=== PATIENT | male | born 1945 | race Caucasian/White ===

== ENCOUNTER 2022-06-06 10:28 | Emergency (ER) | payer MEDICARE, OTHER, SELFPAY ==
[2022-06-06 10:51] VITALS: BP 145/89; PULSE 54; RESP 16; TEMP 36.3; O2SAT 97; BMI 30.8
--- NOTE | 2022-06-06 11:14 | ED.CHESTPAIN ---
HPI - Chest Pain General Chief Complaint: Chest Pain Stated Complaint: pain in chest Time Seen by Provider: 06/06/22 10:45 History of Present Illness HPI narrative: This 77-year-old male comes in reporting some pain just left of his sternum that began about 4:00 a.m. this morning. He states that the pain is reproducible when he presses in this area. He does not report any shortness of breath, nausea, vomiting, lightheadedness, or diaphoresis. He has good exercise tolerance. He states that he does not have any cardiac risk factors. He does not have a personal cardiac history. He sees a doctor at the [place] facility. His states that he has a history of a neuroendocrine cancer with metastatic disease. He did have a chest CT about a month ago with negative results. Related Data Home Medications Medication Instructions Recorded Confirmed sotalol 80 mg tablet 80 mg PO Q12H 06/06/22 06/06/22 warfarin 5 mg tablet 5 mg PO DAILY 06/06/22 06/06/22 Allergies Allergy/AdvReac Type Severity Reaction Status Date / Time No Known Drug Allergies Allergy Verified 06/06/22 10:57 Review of Systems Status of ROS Reports: 10 or more systems reviewed and unremarkable except as noted in History and below Narrative Constitutional: No fevers, no weight gain or loss. Eyes: No discharge. No vision changes. HENT: No congestion, no sore throat, no ear pain. Cardiovascular: No palpitations. Chest: Reproducible pain with palpation just left of the sternal border. Respiratory: No shortness of breath, no wheezes, no cough. Gastrointestinal: No abdominal pain, no vomiting, no diarrhea. Genitourinary: No dysuria, no hematuria. Musculoskeletal: Normal range of motion. Skin: No rashes, no pruritis. Neurological: No dizziness, weakness, sensory change, speech change. Endo/Heme/Allergies: No bruising or bleeding. No polydipsia. Pysch: no suicidality, no anxiety, no insomnia. All other systems reviewed and are negative. PFSH PFSH Social History Smoking Status: Former smoker How often do you have a drink containing alcohol: monthly or less AUDIT-C Alcohol total score: 1 Non-prescribed substance use: denies use Exam Narrative Exam Narrative: Constitutional: Well-developed, well-nourished, no acute distress. HEENT: Normocephalic, atraumatic. Neck: Normal range of motion. Nontender. Supple. Heart: Regular. No murmurs. Normal rate. Intact distal pulses. Lungs: Clear to auscultation.. No wheezes, rhonchi, or rales. Chest discomfort is distinctly reproduced when palpating left of the sternal border. Abdomen: Normal bowel sounds. Nontender. No rebound tenderness. Genitalia: Deferred. Back: No midline tenderness. Normal range of motion. Extremities: Normal range of motion. No injury. No pedal edema. Skin: Intact. No rash. Warm. No erythema or pallor. Neurologic: No altered sensation. No weakness. Alert and oriented. Psychiatric: No suicidality. No anxiety or depression. No insomnia. Nursing notes and vitals signs are reviewed. Const Vital Signs, click to edit/add: Vital Signs - 24 hr 06/06/22 10:51 06/06/22 11:35 Temperature 97.4 F L Pulse Rate 61 Pulse Rate [Right Pulse Oximeter] 54 L Respiratory Rate 16 17 Blood Pressure 160/85 H Blood Pressure [Right Upper Arm] 145/89 H Pulse Oximetry 97 95 Oxygen Delivery Method Room Air Course Vital Signs Vital signs: Initial Vital Signs Temperature 97.4 F L 06/06/22 10:51 Temperature Source Temporal Artery Scan 06/06/22 10:51 Pulse Rate 54 L 06/06/22 10:51 Pulse Rhythm 06/06/22 10:51 Respiratory Rate 16 06/06/22 10:51 Blood Pressure 145/89 H 06/06/22 10:51 Blood Pressure Mean 107 06/06/22 10:51 Blood Pressure Position Sitting 06/06/22 10:51 Pulse Oximetry 97 06/06/22 10:51 Oxygen Delivery Method 06/06/22 10:51 Vital Signs Temperature 97.4 F L 06/06/22 10:51 Pulse Rate 54 L 06/06/22 10:51 Respiratory Rate 16 06/06/22 10:51 Blood Pressure 145/89 H 06/06/22 10:51 Pulse Oximetry 97 06/06/22 10:51 Oxygen Delivery Method 06/06/22 10:51 Temperature 97.4 F L 06/06/22 10:51 Pulse Rate 61 06/06/22 11:35 Respiratory Rate 17 06/06/22 11:35 Blood Pressure 160/85 H 06/06/22 11:35 Pulse Oximetry 95 06/06/22 11:35 Oxygen Delivery Method 06/06/22 10:51 MDM - Chest Pain MDM Narrative Medical decision making narrative: This patient comes in reporting chest discomfort as described above. The pain is easily reproducible indicating chest wall pain. Additionally his EKG, vital signs, exam, and labs all returned with normal results. The patient's INR is at 1 as he has not been taking his Coumadin for about a week in preparation for a surgical procedure coming soon. Lab Data Labs: Lab Results 06/06/22 06/06/22 06/06/22 Range/Units 11:00 11:34 11:34 WBC 4.28 L (4.50-11.00) K/uL RBC 4.24 L (4.30-5.90) m/uL Hgb 14.1 (13.5-17.5) gm/dL Hct 42.1 (37.0-53.0) % MCV 99 (80-100) fL MCH 33 (26-34) pg MCHC 34 (32-36) gm/dL RDW Coeff of Renae 12.2 (11.5-15.5) % Plt Count 202 (140-440) K/uL Neut % (Auto) 55.5 (42.0-72.0) % Lymph % (Auto) 26.2 (20-44) % Pickett % (Auto) 15.0 H (0.0-11.0) % Eos % (Auto) 2.8 (0.0-7.0) % Baso % (Auto) 0.5 (0.0-3.0) % Neut # (Auto) 2.40 (1.7-7.0) K/uL Lymph # (Auto) 1.10 (0.90-2.90) K/uL Pickett # (Auto) 0.60 (0.00-0.90) K/UL Eos # (Auto) 0.10 (0.00-0.50) K/uL Baso # (Auto) 0.00 (0.00-0.30) K/uL Abs Immat Gran (auto) 0.00 (0.00-0.30) K/uL INR (0.91-1.10) Sodium 136 (135-149) mmol/L Potassium 4.2 (3.6-5.1) mmol/L Chloride 102 (96-114) mmol/L Carbon Dioxide 30 (20-32) mmol/L BUN 13 (7-30) mg/dL Creatinine 0.9 (0.5-1.5) mg/dL Estimated Creat Clear 62.86 Estimated GFR 87 ml/min Glucose 95 (60-115) mg/dL Calcium 9.0 (8.4-10.6) mg/dL POC Troponin I 0.00 L (0.01-0.04) ng/ml 06/06/22 Range/Units 11:34 WBC (4.50-11.00) K/uL RBC (4.30-5.90) m/uL Hgb (13.5-17.5) gm/dL Hct (37.0-53.0) % MCV (80-100) fL MCH (26-34) pg MCHC (32-36) gm/dL RDW Coeff of Renae (11.5-15.5) % Plt Count (140-440) K/uL Neut % (Auto) (42.0-72.0) % Lymph % (Auto) (20-44) % Pickett % (Auto) (0.0-11.0) % Eos % (Auto) (0.0-7.0) % Baso % (Auto) (0.0-3.0) % Neut # (Auto) (1.7-7.0) K/uL Lymph # (Auto) (0.90-2.90) K/uL Pickett # (Auto) (0.00-0.90) K/UL Eos # (Auto) (0.00-0.50) K/uL Baso # (Auto) (0.00-0.30) K/uL Abs Immat Gran (auto) (0.00-0.30) K/uL INR 0.97 (0.91-1.10) Sodium (135-149) mmol/L Potassium (3.6-5.1) mmol/L Chloride (96-114) mmol/L Carbon Dioxide (20-32) mmol/L BUN (7-30) mg/dL Creatinine (0.5-1.5) mg/dL Estimated Creat Clear Estimated GFR ml/min Glucose (60-115) mg/dL Calcium (8.4-10.6) mg/dL POC Troponin I (0.01-0.04) ng/ml ECG Data Attestation: I personally reviewed and interpreted this ECG as follows: Interpretation: Sinus bradycardia. Rate is 56 beats per minute. There are no specific ST or T-wave abnormalities. Discharge Plan Discharge Clinical Impression: Chest wall pain Additional Instructions: Use [id number] medicines as needed and directed. Follow up with MD as scheduled. Increase activity as tolerated. Prescriptions: No Action sotalol 80 mg tablet 80 mg PO Q12H warfarin 5 mg tablet 5 mg PO DAILY Rx Instructions: 5 mg 5 times per week and 2 days 7.5 mg Follow Up/Referrals: Rosalinda Yancey MD [Primary Care Provider] -
[2022-06-06 11:35] VITALS: BP 160/85; PULSE 61; RESP 17; O2SAT 95
--- OUTSIDE RECORDS SUMMARY | 2022-06-06 11:40 | XMS_ITS | Continuity of Care Document ---
:1945 Author Organization [facility] Care Team Providers Name Role Phone [facility] Unavailable Unavailable Problems Combined list of problems from 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 It does not include entries that were removed or entered in error. 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 (SNOMED CT 007 2008 Enter ed [facility] [id number]) By: JODI MARCELINO Comment: S/P HIFU (09/2007 [place]) Apr 14, 2014 Entered By: HARLAN SUN Comment: 01/25 RRP Atrial fibrillation Active Condition Dec 29 [place] (SNOMED CT 63570969) 2011 Ente red [facility] By: HARLAN SUN Comment: Paroxysmal 06/23 and 12/24 CHADS 2 score 0 Carcinoid tumor Active Condition [place] (SNOMED CT [facility] [id number]) Colonoscopy normal Active Condition Oct 06 [place] 2018 Entered [facility] By: HARLAN SUN Comment: 2000 Health Maintenance Active Condition Dec 22 [place] 2012 Entered [facility] By: HARLAN SUN Comment: colonoscopy 2006, next due 2016 Hearing Loss, Active Condition [place] Bilateral [facility] High risk drug Active Condition [place] monitoring status [facility] History of deep vein Active Condition [place] thrombosis [facility] Hyperlipidemia Active Condition [place] (SNOMED CT 04893054) [facility] Impotence Active Condition [place] [facility] Long-term current Active [place] use of anticoagulant [facility] Osteoarthritis of Active Condition [place] ([facility] 060623547) Pain in limb Active Condition Dec 27, [place] (ICD-9-CM 729.5) 2012 Entered [facility] By: HARLAN SUN Comment: knee pain Post Vit Detachment Active Condition [facility] Solitary nodule of Active Condition [place] lung [facility] Trigger Finger Inactive Condition 08/11/2017 [place] (ICD-9-CM 727.03) [facility] Diagnosis: ICD-10-CM Active Diagnosis [place] Z71.9 Counseling, [facility] unspecifiedwith Provider Comments: Counseling, unspecified Diagnosis: ICD-10-CM Active Diagnosis [place] Z01.818 Encounter [facility] for other preprocedural examinationwith Provider Comments: Encounter for other Preprocedural Examination Diagnosis: ICD-10-CM Active Diagnosis [place] Z79.01 long-term [facility] (current) use of anticoagulantswith Provider Comments: Long-term current use of anticoagulant ([facility] [id number]) Diagnosis: ICD-10-CM Active Diagnosis [place] Z51.81 Encounter for [facility] therapeutic drug level monitoringwith Provider Comments: Encounter For Therapeutic Drug Level Monitoring (ICD-10-CM Z51.81) Diagnosis: ICD-10-CM Active Diagnosis [place] Z79.899 Other long [facility] term (current) drug therapywith Provider Comments: 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 Diagnosis: ICD-10-CM Active Diagnosis [place] Z01.818 Encounter [facility] for other preprocedural examinationwith Provider Comments: PreOp Exam Diagnosis: ICD-10-CM Active Diagnosis [place] Z13.6 Encounter for [facility] screening for cardiovascular disorderswith Provider Comments: Encounter for Screening for Cardiovascular Disorders Diagnosis: ICD-10-CM Active Diagnosis [place] M76.61 Achilles [facility] CS tendinitis, right legwith Provider Comments: Achilles tendinitis, right leg Diagnosis: ICD-10-CM Active Diagnosis [place] C7A.00 Malignant [facility] carcinoid tumor of unspecified sitewith Provider Comments: Carcinoid tumor ([facility] [id number]) Diagnosis: ICD-10-CM Active Diagnosis [place] I48.91 Unspecified [facility] atrial fibrillationwith Provider Comments: Atrial fibrillation ([facility] [id number]) Diagnosis: ICD-10-CM Active Diagnosis [place] Z71.89 Other [facility] specified counselingwith Provider Comments: Other specified counseling Diagnosis: ICD-10-CM Active Diagnosis [place] Z51.81 Encounter for [facility] therapeutic drug level monitoringwith Provider Comments: Encounter for Therapeutic Drug Level Monitoring Diagnosis: ICD-10-CM Active Diagnosis [place] 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 Provider Comments: 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 Medications provided include 1) outpatient medications from the last 15 months, and 2) patient-reported medications. Medication Details Route Status Patient Prescription Prescription Last Ordering Order Source Instructions Expires Number Dispense Provider Date Date CEPHALEXIN Active [id number] O'HALLORA 11/12 0/ Pharmac (CEPHALEXIN 2 N, 2021 y Data MONOHYDRATE Transac ), 500 MG, tion CAPSULE, Service ORAL, Facilit ASCEND y LABORATO, 500 ea. BOTTLE CHOLECALCIF TAKE ONE ORALLY ACTIVE EMILY,OK 01/20 / [place] 25MCG TABLET SGHINA 2018 [place] (1,000UNIT) BY MOUTH [facility] TAB EVERY DAY DOXYCYCLINE TAKE ONE ORALLY 03/19/2022 [id number] TARCHAND, 02/17/ [place] HYCLATE TABLET 2 GOBIND 2021 [place] 100MG TAB BY MOUTH [facility] TWICE A DAY FOR PNEUMONI A Doxycycline TAKE ONE 03/19/2022 [id number] TAR ABI, 02/19/ [place] Tablet TABLET 2 GOBIND 2021 [place] 100mg Oral BY MOUTH [facility] TWICE A DAY FOR PNEUMONI A ENOXAPARIN INJECT SUBCUT ACTIVE 05/22/2023 [id number] CASWEL L,D 05/21/ [place] 100MG/ML 100MG ANEOUS 2 INAH 2021 [place] INJ,SYRINGE [facility] ,1ML CONTENTS OF 1 SYRINGE UNDER THE SKIN EVERY 12 HOURS TO PREVENT BLOOD CLOTS WHILE OFF WARFARIN - SEE SEPARATE LETTER FOR DIRECTIO NS TO PREVENT BLOOD CLOTS WHILE OFF WARFARIN - SEE SEPARATE LETTER FOR DIRECTIO NS FLONASE-OTC SPRAY 2 Active 04/05/2023 [id number] MOORH EAD, 04/06/ [place] (BRAND) 50 SPRAYS 2 CLAYTON 2022 [place] MCG REBECCA IN EACH M [facility] SPSN [9.9] NOSTRIL EVERY DAY USE REGULARL Y FOR RELIEF OF ALLERGIE S/CONGES TION FLUTICASONE SPRAY 2 NASAL ACTIVE 04/05/2023 [id number] MO ORHEAD, 04/04/ [place] PROPIONATE SPRAYS 2 2021 [place] 50MCG/SPRAY IN EACH M HCS SOLN,NASAL, NOSTRIL 16GM EVERY DAY USE REGULARL Y FOR RELIEF OF ALLERGIE S/CONGES TION FLUZONE Active [id number] COTTON, rmac HIGH-DOSE 1 2020 y Data QUAD Transac tion (influenza Service virus Facilit vaccine y quadrival split (65 yr up)/PF), 240MCG/0.7, SYRINGE, INTRAMUSC, SANOFI-PAST EUR, .7 ml SYRINGE LIDOCAINE 5 APPLY Active 04/05/2023 [id number] MOORHEA D, 04/06/ [place] % TOP OINT MODERATE 2 2021 ol is [30 GM] AMOUNT M [facility] TOPICALL Y FOUR TIMES A DAY NEEDED FOR PAIN LIDOCAINE APPLY TOPICA ACTIVE 04/05/2023 [id number] SARIAH , 04/04/ [place] 5% OINT,TOP MODERATE LLY 2 2021 O [place] [facility] AMOUNT M HCS TOPICALL Y FOUR TIMES A DAY NEEDED FOR PAIN Loratadine TAKE ONE Active 04/05/2023 [id number] MOORH EAD, 04/06/ [place] (Alavert TABLET 2 2021 olis ODT) Tablet BY MOUTH M [facility] 10 mg Oral EVERY DAY FOR ALLERGIE S FOR ALLERGIE S LORATADINE TAKE ONE ORALLY ACTIVE 04/05/2023 [id number] MO ORHEAD, 04/04/ [place] 10MG TAB TABLET 2 2021 [place] A BY MOUTH M HCS EVERY DAY FOR ALLERGIE S MUPIROCIN Active [id number] O'MERLY 11/21 / (MUPIROCIN) 2 N, 2021 y Data , 2%, Transac OINT.(GM), tion TOPICAL, Service [facility] Facilit [place], 22 g y TUBE NON VA MED USE ORALLY ACTIVE TARCHAND, 02/17/ [place] NOT LISTED MOUTH GOBIND 2021 [place] EVERY HCS MORNING Octreotide INJECT Active 10/30/2022 [id number] TARCHAN D, 04/24/ [place] Acetate 20MG 2 GOBIND 2021 olis 20mg 20MG [facility] Powder, INTRAMUS Injection CULAR EVERY MONTH IN HEME/ONC CLINIC *DO NOT MAIL TO BE DISPENSE IN CLINIC Octreotide INJECT Discont 06/26/2022 [id number] GIANCARLO NER 10/31/ [place] Acetate 20MG inued , 2021 [place] 20mg INTRAMUS VIKAS VA Powder, CULAR S Injection EVERY MONTH IN HEME/ONC CLINIC *DO NOT MAIL Octreotide INJECT Discont 11/27/2021 [id number] JEIRIS, 06/29/ [place] Acetate 20MG inued 1 BATSHEVA J 2020 [place] 20mg INTRAMUS [facility] Powder, CULAR Injection EVERY MONTH IN HEME/ONC CLINIC *DO NOT MAIL OCTREOTIDE INJECT INTRAM ACTIVE 10/30/2022 [id number] TARCHA ND, 10/29/ [place] ACETATE 20MG USCULA 2 GOBIND 2021 [place] 20MG/KIT 20MG R HCS INJ,SUSP,SA INTRAMUS CULAR EVERY MONTH IN HEME/ONC CLINIC *DO NOT MAIL TO BE DISPENSE IN CLINIC OCTREOTIDE INJECT INTRAM DISCONT 06/26/2022 [id number] CHR ISTNER 07/23/ [place] ACETATE 20MG USCULA INUED 2 ,VIKAS 2020 [place] 20MG/KIT INTRAMUS R (EDIT) S HCS INJ,SUSP,SA CULAR EVERY MONTH IN HEME/ONC CLINIC *DO NOT MAIL OCTREOTIDE INJECT INTRAM DISCONT 11/27/2021 [id number] JE IRIS,JOCELYNE 11/26/ [place] ACETATE 20MG USCULA INUE 1 PING J 2020 [place] 20MG/KIT INTRAMUS R HCS INJ,SUSP,SA CULAR EVERY MONTH IN HEME/ONC CLINIC *DO NOT MAIL PFIZER Active [id number] COTTON, 02/09/ Phar mac COVID (12Y 2 2021 y Data UP) Transac VAC(EUA) tion (COVID-19 Service vac Facilit mRNA,vineet(P y fizer)/PF), 30 MCG/0.3, VIAL, INTRAMUSC, PFIZER MANUFACT, 1.8 ml VIAL SOTALOL HCL TAKE ONE ORALLY ACTIVE 12/19/2022 [id number] STERLING,A [place] 80MG TAB TABLET 2 BBIE L 2021 [place] BY MOUTH HCS TWO TIMES A DAY SOTALOL HCL TAKE ONE ORALLY DISCONT 09/10/2022 [id number] GLAUSER,N [place] 80MG TAB TABLET INUED 2 ORA N 2021 [place] BY MOUTH HCS TWO TIMES A DAY SOTALOL HCL TAKE ONE ORALLY DISCONT 09/14/2021 [id number] SARIAH, [place] 80MG TAB TABLET INUE 1 2020 [place] A BY MOUTH M HCS TWO TIMES A DAY Sotalol TAKE ONE Active 12/19/2022 [id number] STERLING, [place] Hydrochlori TABLET 2 LUISITO L 2021 ol[place] de BY MOUTH [facility] ([place]) TWO Tablet 80 TIMES A mg Oral DAY Sotalol TAKE ONE Active 09/10/2022 [id number] GLAUSER, [place] Hydrochlori TABLET 2 MARIELOS N 2021 ol[place] de BY MOUTH [facility] ([place]) TWO Tablet 80 TIMES A mg Oral DAY Sotalol TAKE ONE Discont 09/14/2021 [id number] MOORHEA D, [place] Hydrochlori TABLET inued 1 2021 af[place] s de BY MOUTH [facility] ([place]) TWO Tablet 80 TIMES A mg Oral DAY VITAMIN E TAKE BY ORALLY ACTIVE TARCHAND, [place] CAP,ORAL MOUTH GOBIND 2021 [place] EVERY HCS MORNING WARFARIN NA TAKE ONE ORALLY ACTIVE 01/23/2023 [id number] H ELMRICK, [place] (CHAN AND 2 LUISITO M 2021 [place] STATE) 5MG ONE-HALF HCS TAB TABLETS BY MOUTH THURSDAY AND THURSDAY AND TAKE ONE TABLET ALL OTHER DAYS OR DIRECTED BY WARFARIN CLINIC TO TREAT AND/OR PREVENT BLOOD CLOTS WARFARIN NA TAKE ONE ORALLY 12/25/2021 [id number] CHARLIE LY 12/24/ [place] (CHAN AND 2 NIFER JEREMIE 2020 [place] STATE) 5MG ONE-HALF HCS TAB TABLETS BY MOUTH THURSDAY, THURSDAY , THURSDAY AND TAKE ONE TABLET ALL OTHER DAYS OF THE WEEK, OR DIRECTED BY WARFARIN CLINIC TO PREVENT BLOOD CLOTS Warfarin TAKE ONE 12/25/2021 [id number] LY, [place] Sodium AND 1 LISETTE 2020 olis (GSMS/Taro ONE-HALF [place]EM[place] [facility] Brand) TABLETS Tablet 5 mg BY MOUTH Oral THURSDAY, THURSDAY , THURSDAY AND TAKE ONE TABLET ALL OTHER DAYS OF THE WEEK, OR DIRECTED BY WARFARIN CLINIC TO PREVENT BLOOD CLOTS Allergies, Adverse Reactions, Alerts Combined list of allergies from 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 It does not include entries that were removed or entered in error. Substance Category Reaction Severity Reaction Status Date Comments S ource type Reported DIAL SOAP Propensity Eruption Propensity active [place] to adverse to adverse 7 [facility] reaction reaction (finding) (finding) NAPROXEN Propensity Diarrhea Propensity active [place] to adverse to adverse 1 [facility] reactions reactions to drug to drug (finding) (finding) No Known Drug Drug active Gabriel briones Allergies allergy allergy 8 [facility] Immunizations Combined list of available immunizations from the 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 Immunization Series Date Administered Site Reaction Lot CVX Drug St atus Comments Source Given By Number Code Assembler Movement COVID-19, 01/29/ YURY Pfizer Not COVID-1 9, DoD mRNA, LNP-S, 2021 Manufacturing Given mRNA, PF, 30 [place] LNP-S, mcg/0.3 mL (PFR) PF, 30 dose, mcg/0.3 vineet-sucrose mL dose , vineet-sucr ose influenza, , () Not influen za DoD high-dose, 2020 Given , quadrivalent high-do se , quadrival ent INFLUENZA, complet [place] UNSPECIFIED 2020 ed [place] FORMULATION HC S COVID-19 2 complet [place] (PFIZER), 2020 ed TA MRNA, LNP-S, PF, 30 MCG/0.3 ML DOSE COVID-19 1 complet [place] ([employer]), 2020 ed [place] MRNA, LNP-S, H CS PF, 30 MCG/0.3 ML DOSE INFLUENZA, complet [place] INJECTABLE, 2019 ed [place] QUADRIVALENT, HCS PRESERVATIVE FREE INFLUENZA, complet [place] HIGH DOSE 2018 ed [place] SEASONAL HCS ZOSTER 2 complet [place] RECOMBINANT 2018 ed [place] [facility] ZOSTER 1 complet [place] RECOMBINANT 2018 ed [place] [facility] H[facility] INFLUENZA, complet [place] SEASONAL, 2017 ed [place] INJECTABLE HCS INFLUENZA, complet [place] HIGH DOSE 2016 ed [place] SEASONAL HCS INFLUENZA, complet [place] HIGH DOSE 2015 ed [place] SEASONAL HCS Influenza, KIND, () Not Influenz a DoD high dose 2014 Given , high seasonal dose seasonal PNEUMOCOCCAL complet Wyet h,L82 [place] CONJUGATE PCV 2015 ed 219, [place] 13 HCS zoster live 01/26/ KIND, () Not zoster DoD 2014 Given live INFLUENZA, complet [place] UNSPECIFIED 2013 ed [place] FORMULATION HC S TDAP complet San[employer]i,U6 M [place] 2013 ed 606AB,Sep [place] HCS INFLUENZA, complet [place] UNSPECIFIED 2012 ed [place] [facility] FORMULATION HC S INFLUENZA, complet [place] UNSPECIFIED 2011 ed [place] [facility] FORMULATION HC S INFLUENZA, complet [place] UNSPECIFIED 2010 ed [place] [facility] FORMULATION HC S INFLUENZA, complet per pt [place] UNSPECIFIED 2009 ed [place] FORMULATION HC S NOVEL complet [place] INFLUENZA-H1N 2009 ed [place] -, ALL HCS FORMULATIONS ZOSTER LIVE complet Merck and [place] 2008 ed co Lot# [place] V A Exp HCS PNEUMOCOCCAL, complet MARIO CK and [place] UNSPECIFIED 2008 ed co, [place] FORMULATION [id number], H CS [id number] INFLUENZA, complet [place] UNSPECIFIED 2008 ed [place] [facility] FORMULATION HC S INFLUENZA, complet [place] UNSPECIFIED 2007 ed [place] [facility] FORMULATION HC S INFLUENZA complet [place] (HISTORICAL) 2006 ed O LIS SC HCS TD(ADULT) complet [place] UNSPECIFIED 2006 ed [place] [facility] FORMULATION HC S INFLUENZA complet M [place] (HISTORICAL) 2005 ed O LIS [place] HCS influenza 1 08/15/ Unknown, [id number] 16 PowderJect comple t influenza [facility] [place] virus 2002 Provider Pharmaceutica ed vir us vaccine, ls (PWJ) vaccine, whole virus whole virus tetanus and 2 04/28/ Unknown, 09 () complet te tanus DoD diphtheria 2002 Provider ed and toxoids, diphtheri adsorbed, a preservative toxoids , free, for adsorbed, adult use (2 preserv at Lf of tetanus neel fr ee, toxoid and 2 for cuong lt Lf of use (2 Lf diphtheria of toxoid) tetanus toxoid and 2 Lf of diphtheri a toxoid) TD(ADULT) complet [place] UNSPECIFIED 2002 ed [place] FORMULATION HC S hepatitis A 2 11/18/ Unknown, 52 () complet [facility] vaccine, 1996 Provider ed A adult dosage vaccine , adult dosage hepatitis B 3 11/18/ Unknown, 43 () complet [facility] vaccine, 1996 Provider ed B adult dosage vaccine , adult dosage hepatitis B 2 05/19/ Unknown, 43 () complet [facility] vaccine, 1995 Provider ed B adult dosage vaccine , adult dosage tetanus and 1 04/26/ Unknown, 09 () [facility] diphtheria 1995 Provider ed and toxoids, diphtheri adsorbed, a preservative toxoids , free, for adsorbed, adult use (2 preserv at Lf of tetanus neel fr ee, toxoid and 2 for cuong lt Lf of use (2 Lf diphtheria of toxoid) tetanus toxoid and 2 Lf of diphtheri a toxoid) hepatitis A 1 04/26/ Unknown, 52 () complet [facility] DoD vaccine, 1995 Provider ed A adult dosage vaccine , adult dosage hepatitis B 1 04/26/ Unknown, 43 () complet [facility] vaccine, 1995 Provider ed B adult dosage vaccine , adult dosage trivalent 1 08/08/ Unknown, 02 () complet tri alent [facility] poliovirus 1973 Provider ed poliov iru vaccine, s live, oral vaccine, live, oral Results Combined list of recent chemistry, hematology and other laboratory results from Department of Defense and Veterans Affairs, ranging from 15 months to all on record, depending upon the facility. Order Results Value Reference Date Interpretation Specimen Commen ts Source Name Range PT/INR(AN INR IN 2.1 0.8 - 1.1 05/20 H Specimen Typ e: PLASMA [place] TICOAG) PLATELET /2021 No comment ente red. IS [facility] POOR PLASMA Ordering Pr ovider: CATALINA HEAD BY Report Released Date/Time: Apr 23, 2022 03:52 PM COAGULATION Reporting L ab: [facility] [place] [address] [place] [phone] Performing Lab: [facility] [address] [place] [phone] PT/INR(AN PROTHROMBIN 24.9 9.4 - 12.5 05/20 H Specime n Type: PLASMA [place] TICOAG) TIME (PT) /2021 No comment ent ered. IS [facility] Ordering Provid er: CATALINA HEAD Report Released Date/Time: Apr 23, 2022 03:52 PM Reporting Lab: [facility] [address] [place] [phone] Performing Lab: [facility] [address] [place] [phone] COMPREHEN CREATININE 1.0 0.7 - 1.2 05/20 Specimen Type: PLASMA [place] SIVE [MASS/VOLUM /2021 No comment e ntered. IS [facility] METABOLIC E] IN SERUM Ordering Provider: LILI GARCIA PANEL+MG OR PLASMA Report Relea sed Date/Time: Feb 17, 2022 11:17 AM Reporting Lab: [facility] [address] [place] [phone] Performing Lab: [facility] [address] [place] [phone] COMPREHEN UREA 13 8 - 26 05/20 Specimen Type: [place]ASMA [place] SIVE NITROGEN /2021 No comment ente red. IS [facility] METABOLIC [MASS/VOLUM Ordering Provider: LILI GARCIA PANEL+MG E] IN SERUM Report Rel eased Date/Time: Feb 17, 2022 11:17 AM OR PLASMA Reporting Lab : [facility] [address] [place] [phone] Performing Lab: [facility] [address] [place] [address] COMPREHEN GLUCOSE 98 70 - 100 05/20 Specimen Type : PLASMA [place] SIVE [MASS/VOLUM /2021 No comment e ntered. IS [facility] METABOLIC E] IN SERUM Ordering Provider: ATA GARCIABIND PANEL+MG OR PLASMA Report Relea sed Date/Time: Feb 17, 2022 11:17 AM Reporting Lab: [facility] [place] [address] Performing Lab: [facility] [place] [address] COMPREHEN SODIUM 141 136 - 145 05/20 Specimen Typ e: PLASMA [place] SIVE [MOLES/VOLU /2021 No comment e ntered. IS [facility] METABOLIC ME] IN Ordering Prov ider: TARJEMND,GOBIND PANEL+MG SERUM OR Report Releas ed Date/Time: Feb 17, 2022 11:17 AM PLASMA Reporting Lab: [facility] [address] [facility] [phone] Performing Lab: [facility] [address] [facility] [phone] COMPREHEN POTASSIUM 4.0 3.5 - 5.1 05/20 Specimen T ype: PLASMA [place] SIVE [MOLES/VOLU /2021 No comment e ntered. IS [facility] METABOLIC ME] IN Ordering Prov ider: TARJEMND,GOBIND PANEL+MG SERUM OR Report Releas ed Date/Time: Feb 17, 2022 11:17 AM PLASMA Reporting Lab: [facility] [address] [facility] [address] Performing Lab: [facility] [address] [facility] [address] COMPREHEN CHLORIDE 110 98 - 107 05/20 H Specimen Typ e: PLASMA [place] SIVE [MOLES/VOLU /2021 No comment e ntered. IS [facility] METABOLIC ME] IN Ordering Prov ider: TARCHAND,GOBIND PANEL+MG SERUM OR Report Releas ed Date/Time: Feb 17, 2022 11:17 AM PLASMA Reporting Lab: [facility] [address] [facility] [phone] Performing Lab: [facility] [address] [facility] [address] COMPREHEN CARBON 26 22 - 29 05/20 Specimen Type: PLASMA [place] SIVE DIOXIDE, /2021 No comment ente red. IS [facility] METABOLIC TOTAL Ordering Prov ider: TARCHAND,GOBIND PANEL+MG [MOLES/VOLU Report Rel eased Date/Time: Feb 17, 2022 11:17 AM ME] IN Reporting Lab: [facility] SERUM OR [address] [place] [facility] [address] PLASMA Performing Lab: [facility] [address] [place] [phone] COMPREHEN CALCIUM 8.9 8.4 - 10.2 05/20 Specimen Ty pe: PLASMA [place] SIVE [MASS/VOLUM /2021 No comment e ntered. IS [facility] METABOLIC E] IN SERUM Ordering Provider: ATA GARCIABIND PANEL+MG OR PLASMA Report Relea sed Date/Time: Feb 17, 2022 11:17 AM Reporting Lab: [facility] [address] [place] [address] Performing Lab: [facility] [address] [place] [phone] COMPREHEN PROTEIN 6.7 6.0 - 8.3 05/20 Specimen Typ e: PLASMA [place] SIVE [MASS/VOLUM /2021 No comment e ntered. IS [facility] METABOLIC E] IN SERUM Ordering Provider: ATA GARCIABIND PANEL+MG OR PLASMA Report Relea sed Date/Time: Feb 17, 2022 11:17 AM Reporting Lab: [facility] [place] [address] Performing Lab: [facility] [address] [place] [address] COMPREHEN ALBUMIN 3.8 3.5 - 5.2 05/20 Specimen Typ e: PLASMA [place] SIVE [MASS/VOLUM /2021 No comment e ntered. IS [facility] METABOLIC E] IN SERUM Ordering Provider: ATA GARCIABIND PANEL+MG OR PLASMA Report Relea sed Date/Time: Feb 17, 2022 11:17 AM Reporting Lab: [facility] [address] [place] [address] Performing Lab: [facility] [place] [address] COMPREHEN BILIRUBIN.T 1.0 0.2 - 1.2 05/20 Specimen Type: PLASMA [place] SIVE OTAL /2021 No comment enter ed. IS [facility] METABOLIC [MASS/VOLUM Ordering Provider: ATA GARCIABIND PANEL+MG E] IN SERUM Report Rel eased Date/Time: Feb 17, 2022 11:17 AM OR PLASMA Reporting Lab : [facility] [place] [address] Performing Lab: [facility] [place] [address] COMPREHEN MAGNESIUM 2.1 1.6 - 2.6 05/20 Specimen T ype: PLASMA [place] SIVE [MASS/VOLUM /2021 No comment e ntered. IS [facility] METABOLIC E] IN SERUM Ordering Provider: LILI GARCIA PANEL+MG OR PLASMA Report Relea sed Date/Time: Feb 17, 2022 11:17 AM Reporting Lab: [facility] [address] [facility] [address] Performing Lab: [facility] [address] [facility] [address] COMPREHEN ANION GAP 5 5 - 15 05/20 Specimen Typ e: PLASMA [place] SIVE IN SERUM OR /2021 No comment e ntered. IS [facility] METABOLIC PLASMA Ordering Prov ider: LILI GARCIA PANEL+MG Report Release d Date/Time: Feb 17, 2022 11:17 AM Reporting Lab: [facility] [address] [facility] [address] Performing Lab: [facility] [address] [facility] [address] COMPREHEN ALKALINE 68 40 - 150 05/20 Specimen Typ e: PLASMA [place] SIVE PHOSPHATASE /2021 No comment e ntered. IS [facility] METABOLIC [ENZYMATIC Ordering P rovider: LILI GARCIA PANEL+MG ACTIVITY/VO Report Rel eased Date/Time: Feb 17, 2022 11:17 AM LUME] IN Reporting Lab: [facility] [facility] SERUM OR [address] [facility] [address] PLASMA Performing Lab: [facility] [address] [facility] [address] COMPREHEN ALANINE 15 <55 - 55 05/20 Specimen Type : PLASMA [place] SIVE AMINOTRANSF /2021 No comment e ntered. IS [facility] METABOLIC ERASE Ordering Prov ider: LILI GARCIA PANEL+MG [ENZYMATIC Report Rele ased Date/Time: Feb 17, 2022 11:17 AM ACTIVITY/VO Reporting L ab: [facility] LUME] IN [address] [facility] [address] SERUM OR Performing Lab : [facility] PLASMA [place] [address] COMPREHEN ASPARTATE 20 <34 - 34 05/20 Specimen Ty pe: PLASMA [place] SIVE AMINOTRANSF /2021 No comment e ntered. IS [facility] METABOLIC ERASE Ordering Prov ider: LILI GARCIA PANEL+MG [ENZYMATIC Report Rele ased Date/Time: Feb 17, 2022 11:17 AM ACTIVITY/VO Reporting L ab: [facility] LU[place]] IN [address] [facility] [address] SERUM OR Performing Lab : [facility] PLASMA [place] [address] COMPREHEN GLOMERULAR 78 60 05/20 Specimen Ty pe: PLASMA [place] SIVE FILTRATION /2021 No comment en tered. IS [facility] METABOLIC RATE/1.73 Ordering Pr ovider: LILI GARCIA PANEL+MG SQ Report Release d Date/Time: Feb 17, 2022 11:17 AM M.PREDICTED Reporting L ab: [facility] [VOLUME [address] [facility] [address] RATE/AREA] Performing L ab: [facility] IN SERUM, [address] [facility] [address] PLASMA OR BLOOD BY CREATININE- BASED FORMULA (CKD-EPI) CBC & LEUKOCYTES 4.78 4.0 - 11.0 05/20 Specimen T ype: BLOOD [place] DIFF [#/VOLUME] /2021 Comment: Aut omated Differential Performed IS [facility] IN BLOOD BY Ordering Pr ovider: LILI GARCIA AUTOMATED Report Releas ed Date/Time: Feb 17, 2022 11:17 AM COUNT Reporting Lab: [facility] [address] [facility] [address] Performing Lab: [facility] [address] [facility] [address] CBC & ERYTHROCYTE 4.19 4.6 - 6.2 05/20 L Specimen T ype: BLOOD [place] DIFF S /2021 Comment: Automa rosabla Differential Performed [facility] [#/VOLUME] Ordering Pro vider: LILI GARCIA IN BLOOD BY Report Rele ased Date/Time: Feb 17, 2022 11:17 AM AUTOMATED Reporting Lab : [facility] COUNT [address] [facility] [address] Performing Lab: [facility] [place] [address] CBC & HEMOGLOBIN 14.1 13.5 - 05/20 Specimen Type : BLOOD [place] DIFF [MASS/VOLUM 17.9 /2021 Comment: Au tomated Differential Performed IS [facility] E] IN BLOOD Ordering Pr ovider: LILI GARCIA Report Released Date/Time: Feb 17, 2022 11:17 AM Reporting Lab: [facility] [place] [address] Performing Lab: [facility] [place] [address] CBC & HEMATOCRIT 41.6 41 - 54 05/20 Specimen Type : BLOOD [place] DIFF [VOLUME /2021 Comment: Automa rosalba Differential Performed IS [facility] FRACTION] Ordering Prov ider: LILI GARCIA OF BLOOD BY Report Rele ased Date/Time: Feb 17, 2022 11:17 AM AUTOMATED Reporting Lab : [facility] COUNT [address] [facility] [address] Performing Lab: [facility] [place] [address] CBC & MCV 99.3 80 - 100 05/20 Specimen Type: BLOOD [place] DIFF [ENTITIC /2021 Comment: Autom ated Differential Performed IS [facility] VOLUME] BY Ordering Pro vider: LILI GARCIA AUTOMATED Report Releas ed Date/Time: Feb 17, 2022 11:17 AM COUNT Reporting Lab: [facility] [place] [address] Performing Lab: [facility] [address] [facility] [address] CBC & MCH 33.7 27 - 33 05/20 H Specimen Type: B LOOD [place] DIFF [ENTITIC /2021 Comment: Autom ated Differential Performed IS [facility] MASS] BY Ordering Provi danilo: LILI GARCIA AUTOMATED Report Releas ed Date/Time: Feb 17, 2022 11:17 AM COUNT Reporting Lab: [facility] [address] [facility] [address] Performing Lab: [facility] [address] [facility] [address] CBC & MCHC 33.9 32.0 - 09 Specimen Type: B LOOD [place] DIFF [MASS/VOLUM 37.5 /2021 Comment: Au tomated Differential Performed IS [facility] E] BY Ordering Provid er: LILI GARCIA AUTOMATED Report Releas ed Date/Time: Feb 17, 2022 11:17 AM COUNT Reporting Lab: [facility] [address] [facility] [address] Performing Lab: [facility] [address] [facility] [address] CBC & PLATELETS 201 150 - 400 05/20 Specimen Typ e: BLOOD [place] DIFF [#/VOLUME] /2021 Comment: Aut omated Differential Performed [facility] IN BLOOD BY Ordering Pr ovider: ATA GARCIABIND AUTOMATED Report Releas ed Date/Time: Feb 17, 2022 11:17 AM COUNT Reporting Lab: [facility] [place] [address] Performing Lab: [facility] [address] [facility] [address] CBC & PLATELET 10.0 7.4 - 10.4 05/20 Specimen Typ e: BLOOD [place] DIFF MEAN VOLUME /2021 Comment: Au tomated Differential Performed [facility] [ENTITIC Ordering Provi danilo: LILI GARCIA VOLUME] IN Report Relea sed Date/Time: Feb 17, 2022 11:17 AM BLOOD BY Reporting Lab: [facility] AUTOMATED [address] [facility] [address] COUNT Performing Lab: [facility] [address] [facility] [address] CBC & NEUTROPHILS 56.1 05/20 Specimen Typ e: BLOOD [place] DIFF /100 Comment: Automa rosalba Differential Performed IS [facility] LEUKOCYTES Ordering Pro vider: TARJEMND,GOBIND IN BLOOD BY Report Rele ased Date/Time: Feb 17, 2022 11:17 AM MANUAL Reporting Lab: [facility] COUNT [place] [address] Performing Lab: [facility] [place] [address] CBC & LYMPHOCYTES 24.9 05/20 Specimen Typ e: BLOOD [place] DIFF /100 /2021 Comment: Automa rosalba Differential Performed IS [facility] LEUKOCYTES Ordering Pro vider: TARCHAND,GOBIND IN BLOOD BY Report Rele ased Date/Time: Feb 17, 2022 11:17 AM MANUAL Reporting Lab: [facility] COUNT [place] [address] Performing Lab: [facility] [address] [facility] [address] CBC & MONOCYTES/1 13.4 05/20 Specimen Typ e: BLOOD [place] DIFF 00 Comment: Automa rosalba Differential Performed IS [facility] LEUKOCYTES Ordering Pro vider: TARCHAND,GOBIND IN BLOOD BY Report Rele ased Date/Time: Feb 17, 2022 11:17 AM AUTOMATED Reporting Lab : [facility] COUNT [address] [address] Performing Lab: [facility] [address] [facility] [address] CBC & EOSINOPHILS 4.8 05/20 Specimen Typ e: BLOOD [place] DIFF /100 /2021 Comment: Automa rosalba Differential Performed IS [facility] LEUKOCYTES Ordering Pro vider: LILI GARCIA IN BLOOD BY Report Rele ased Date/Time: Feb 17, 2022 11:17 AM AUTOMATED Reporting Lab : [facility] COUNT [address] [facility] [address] Performing Lab: [facility] [address] [facility] [address] CBC & BASOPHILS/1 0.4 05/20 Specimen Typ e: BLOOD [place] DIFF 00 Comment: Automa rosalba Differential Performed IS [facility] LEUKOCYTES Ordering Pro vider: LILI GARCIA IN BLOOD BY Report Rele ased Date/Time: Feb 17, 2022 11:17 AM MANUAL Reporting Lab: [facility] COUNT [address] [facility] [address] Performing Lab: [facility] [address] [facility] [address] CBC & ERYTHROCYTE 12.5 11.5 - 05/20 Specimen Typ e: BLOOD [place] DIFF DISTRIBUTIO 14.5 Comment: Au tomated Differential Performed IS [facility] N WIDTH Ordering Provid er: LILI GARCIA [RATIO] BY Report Relea sed Date/Time: Feb 17, 2022 11:17 AM AUTOMATED Reporting Lab : [facility] COUNT [address] [facility] [address] Performing Lab: [facility] [address] [facility] [address] CBC & LYMPHOCYTES 1.19 1.0 - 4.0 05/20 Specimen T ype: BLOOD [place] DIFF [#/VOLUME] /2021 Comment: Aut omated Differential Performed IS [facility] IN BLOOD BY Ordering Pr ovider: LILI GARCIA AUTOMATED Report Releas ed Date/Time: Feb 17, 2022 11:17 AM COUNT Reporting Lab: [facility] [address] [facility] [address] Performing Lab: [facility] [address] [facility] [address] CBC & MONOCYTES 0.64 0.1 - 1.0 05/20 Specimen Typ e: BLOOD [place] DIFF [#/VOLUME] /2021 Comment: Aut omated Differential Performed [facility] IN BLOOD BY Ordering Pr ovider: LILI GARCIA AUTOMATED Report Releas ed Date/Time: Feb 17, 2022 11:17 AM COUNT Reporting Lab: [facility] [place] [address] Performing Lab: [facility] [address] [address] CBC & NEUTROPHILS 2.68 2.0 - 7.7 09 Specimen T ype: BLOOD [place] DIFF [#/VOLUME] /2021 Comment: Aut omated Differential Performed [facility] IN BLOOD BY Ordering Pr ovider: LILI GARCIA AUTOMATED Report Releas ed Date/Time: Feb 17, 2022 11:17 AM COUNT Reporting Lab: [facility] [address] [facility] [address] Performing Lab: [facility] [address] [facility] [address] CBC & EOSINOPHILS 0.23 0 - 0.5 05/20 Specimen Typ e: BLOOD [place] DIFF [#/VOLUME] /2021 Comment: Aut omated Differential Performed [facility] IN BLOOD BY Ordering Pr ovider: LILI GARCIA AUTOMATED Report Releas ed Date/Time: Feb 17, 2022 11:17 AM COUNT Reporting Lab: [facility] [address] [facility] [address] Performing Lab: [facility] [address] [facility] [address] CBC & BASOPHILS 0.02 0 - 0.2 05/20 Specimen Type: BLOOD [place] DIFF [#/VOLUME] /2021 Comment: Aut omated Differential Performed [facility] IN BLOOD BY Ordering Pr ovider: LILI GARCIA AUTOMATED Report Releas ed Date/Time: Feb 17, 2022 11:17 AM COUNT Reporting Lab: [facility] [address] [facility] [address] Performing Lab: [facility] [address] [facility] [address] CBC & IG(META,MYE 0.4 05/20 Specimen Typ e: BLOOD [place] DIFF LO,PRO) /2021 Comment: Automa rosalba Differential Performed [facility] Ordering Provid er: LILI GARCIA Report Released Date/Time: Feb 17, 2022 11:17 AM Reporting Lab: [facility] [address] [facility] [address] Performing Lab: [facility] [address] [place] [address] CBC & IMMATURE 0.02 0 - 0.1 05/20 Specimen Type: BLOOD [place] DIFF GRANULOCYTE /2021 Comment: Au tomated Differential Performed IS [facility] S Ordering Provid er: LILI GARCIA [PRESENCE] Report Relea sed Date/Time: Feb 17, 2022 11:17 AM IN BLOOD BY Reporting L ab: [facility] AUTOMATED [address] [facility] [address] COUNT Performing Lab: [facility] [place] [address] PT/INR(AN INR IN 2.0 0.8 - 1.1 08/ H Specimen Typ e: PLASMA [place] TICOAG) PLATELET /2021 No comment ente red. IS [facility] POOR PLASMA Ordering Pr ovider: LISETTE LY BY Report Released Date/Time: Mar 21, 2022 12:27 PM COAGULATION Reporting L ab: [facility]AY [place] [address] Performing Lab: [facility] [place] [address] PT/INR(AN PROTHROMBIN 22.7 9.4 - 12.5 04/22 H Specime n Type: PLASMA [place] TICOAG) TIME (PT) /2021 No comment ent ered. IS [facility] Ordering Provid er: LISETTE LY Report Released Date/Time: Mar 21, 2022 12:27 PM Reporting Lab: [facility] [place] [address] Performing Lab: [facility] [place] [address] HEMOGLOBI HEMOGLOBIN 6.1 4.0 - 6.0 08/09 H Specimen Type: BLOOD [place] N A1C A1C/HEMOGLO /2021 No comment e ntered. IS [facility] BIN.TOTAL Ordering Prov ider: CLAYTON ROLLE IN BLOOD Report Release d Date/Time: Apr 04, 2022 09:04 AM Reporting Lab: [facility] [place] [address] Performing Lab: [facility] [address] [facility] [address] PSA PROSTATE 0.01 <4.00 - 04/22 Specimen Type: [place] SPECIFIC AG 4.00 /2021 No comment e ntered. [facility] [MASS/VOLUM Ordering Pr ovider: CLAYTON ROLLE] IN SERUM Report Rele ased Date/Time: Apr 04, 2022 09:04 AM OR PLASMA Reporting Lab : [facility] [address] [place] [address] Performing Lab: [facility] [address] [place] [address] LIPID CHOLESTEROL 194 <199 - 199 08/09 Specimen Type: PLASMA [place] PANEL,NON [MASS/VOLUM /2021 No comment entered. [facility] -FASTING E] IN SERUM Ordering P rovider: CLAYTON ROLLE OR PLASMA Report Releas ed Date/Time: Apr 04, 2022 09:04 AM Reporting Lab: [facility] [address] [place] [address] Performing Lab: [facility] [address] [place] [address] LIPID CHOLESTEROL 55 40 08/09 Specimen Typ e: PLASMA [place] PANEL,NON IN HDL No comment ent ered. IS [facility] -FASTING [MASS/VOLUM Ordering P rovider: CLAYTON ROLLE] IN SERUM Report Rele ased Date/Time: Apr 04, 2022 09:04 AM OR PLASMA Reporting Lab : [facility] [place] [address] Performing Lab: [facility] [address] [place] [address] LIPID CHOLESTEROL 112 <99 - 99 08/09 H Specimen Ty pe: PLASMA [place] PANEL,NON IN LDL No comment ent ered. [facility] [MASS/VOLUM Ordering P rovider: CLAYTON ROLLE] IN SERUM Report Rele ased Date/Time: Apr 04, 2022 09:04 AM OR PLASMA Reporting Lab : [facility] BY [place] [address] CALCULATION Performing Lab: [facility] [address] [place] [address] LIPID CHOLESTEROL 27 <29 - 29 08/09 Specimen Ty pe: PLASMA [place] PANEL,NON IN VLDL No comment ent ered. [facility] [MASS/VOLUM Ordering P rovider: CLAYTON ROLLE] IN SERUM Report Rele ased Date/Time: Apr 04, 2022 09:04 AM OR PLASMA Reporting Lab : [facility] BY [address] [place] [address] CALCULATION Performing Lab: [facility] [address] [place] [address] LIPID CHOLESTEROL 139 <129 - 129 08/ H Specimen Type: PLASMA [place] PANEL,NON NON HDL /2021 No comment ent ered. IS [facility] -FASTING [MASS/VOLUM Ordering P rovider: CLAYTON ROLLE] IN SERUM Report Rele ased Date/Time: Apr 04, 2022 09:04 AM OR PLASMA Reporting Lab : [facility] [address] [place] [address] Performing Lab: [facility] [address] [place] [address] LIPID TRIGLYCERID 136 <149 - 149 04/22 Specimen Type: PLASMA [place] PANEL,NON E /2021 No comment ent ered. IS [facility] -FASTING [MASS/VOLUM Ordering P rovider: CLAYTON ROLLE] IN SERUM Report Rele ased Date/Time: Apr 04, 2022 09:04 AM OR PLASMA Reporting Lab : [facility] [address] [place] [address] Performing Lab: [facility] [place] [address] COMPREHEN CREATININE 1.0 0.7 - 1.2 04/22 Specimen Type: PLASMA [place] SIVE [MASS/VOLUM /2021 No comment e ntered. IS [facility] METABOLIC E] IN SERUM Ordering Provider: LILI GARCIA PANEL+MG OR PLASMA Report Relea sed Date/Time: Feb 17, 2022 11:17 AM Reporting Lab: [facility] [address] [place] [address] Performing Lab: [facility] [address] [facility] [address] COMPREHEN UREA 17 8 - 26 04/22 Specimen Type: PLASMA [place] SIVE NITROGEN /2021 No comment ente red. IS [facility] METABOLIC [MASS/VOLUM Ordering Provider: LILI GARCIA PANEL+MG E] IN SERUM Report Rel eased Date/Time: Feb 17, 2022 11:17 AM OR PLASMA Reporting Lab : [facility] [address] [place] [address] Performing Lab: [facility] [address] [place] [place] [address] COMPREHEN GLUCOSE 96 74 - 100 08 Specimen Type : PLASMA [place] SIVE [MASS/VOLUM /2021 No comment e ntered. IS [facility] METABOLIC E] IN SERUM Ordering Provider: LILI GARCIA PANEL+MG OR PLASMA Report Relea sed Date/Time: Feb 17, 2022 11:17 AM Reporting Lab: [facility] [address] [facility] [address] Performing Lab: [facility] [address] [facility] [address] COMPREHEN SODIUM 139 136 - 145 08 Specimen Typ e: PLASMA [place] SIVE [MOLES/VOLU No comment e ntered. IS [facility] METABOLIC ME] IN Ordering Prov ider: TARATA ALEXBIND PANEL+MG SERUM OR Report Releas ed Date/Time: Feb 17, 2022 11:17 AM PLASMA Reporting Lab: [facility] [address] [facility] [address] Performing Lab: [facility] [address] [facility] [address] COMPREHEN POTASSIUM 4.1 3.5 - 5.1 04/22 Specimen T ype: PLASMA [place] SIVE [MOLES/VOLU No comment e ntered. IS [facility] METABOLIC ME] IN Ordering Prov ider: TARATA ALEXBIND PANEL+MG SERUM OR Report Releas ed Date/Time: Feb 17, 2022 11:17 AM PLASMA Reporting Lab: [facility] [address] [facility] [address] Performing Lab: [facility] [address] [facility] [address] COMPREHEN CHLORIDE 108 98 - 107 08/ H Specimen Typ e: PLASMA [place] SIVE [MOLES/VOLU /2021 No comment e ntered. IS [facility] METABOLIC ME] IN Ordering Prov ider: TARJEMND,ATABIND PANEL+MG SERUM OR Report Releas ed Date/Time: Feb 17, 2022 11:17 AM PLASMA Reporting Lab: [facility] [address] [facility] [address] Performing Lab: [facility] [address] [facility] [address] COMPREHEN CARBON 26 22 - 29 04/22 Specimen Type: PLASMA [place] SIVE DIOXIDE, /2021 No comment ente red. IS [facility] METABOLIC TOTAL Ordering Prov ider: LILI GARCIA PANEL+MG [MOLES/VOLU Report Rel eased Date/Time: Feb 17, 2022 11:17 AM ME] IN Reporting Lab: [facility] SERUM OR [address] [facility] [address] PLASMA Performing Lab: [facility] [place] [address] COMPREHEN CALCIUM 9.4 8.4 - 10.2 04/22 Specimen Ty pe: PLASMA [place] SIVE [MASS/VOLUM /2021 No comment e ntered. IS [facility] METABOLIC E] IN SERUM Ordering Provider: ATA GARCIABIND PANEL+MG OR PLASMA Report Relea sed Date/Time: Feb 17, 2022 11:17 AM Reporting Lab: [facility] [address] [facility] [address] Performing Lab: [facility] [address] [facility] [address] COMPREHEN PROTEIN 6.9 6.0 - 8.3 04/22 Specimen Typ e: PLASMA [place] SIVE [MASS/VOLUM /2021 No comment e ntered. IS [facility] METABOLIC E] IN SERUM Ordering Provider: ATA GARCIABIND PANEL+MG OR PLASMA Report Relea sed Date/Time: Feb 17, 2022 11:17 AM Reporting Lab: [facility] [address] [facility] [address] Performing Lab: [facility] [place] [address] COMPREHEN ALBUMIN 3.9 3.5 - 5.2 04/22 Specimen Typ e: PLASMA [place] SIVE [MASS/VOLUM /2021 No comment e ntered. IS [facility] METABOLIC E] IN SERUM Ordering Provider: ATA GARCIABIND PANEL+MG OR PLASMA Report Relea sed Date/Time: Feb 17, 2022 11:17 AM Reporting Lab: [facility] [address] [facility] [address] Performing Lab: [facility] [address] [facility] [address] COMPREHEN BILIRUBIN.T 0.8 0.2 - 1.2 04/22 Specimen Type: PLASMA [place] SIVE OTAL /2021 No comment enter ed. IS [facility] METABOLIC [MASS/VOLUM Ordering Provider: ATA GARCIABIND PANEL+MG E] IN SERUM Report Rel eased Date/Time: Feb 17, 2022 11:17 AM OR PLASMA Reporting Lab : [facility] [address] [place] [address] Performing Lab: [facility] [address] [place] [address] COMPREHEN MAGNESIUM 2.0 1.6 - 2.6 08 Specimen T ype: PLASMA [place] SIVE [MASS/VOLUM /2021 No comment e ntered. IS [facility] METABOLIC E] IN SERUM Ordering Provider: LILI GARCIA PANEL+MG OR PLASMA Report Relea sed Date/Time: Feb 17, 2022 11:17 AM Reporting Lab: [facility] [address] [place] [address] Performing Lab: [facility] [address] [place] [address] COMPREHEN ANION GAP 5 5 - 15 04/22 Specimen Typ e: PLASMA [place] SIVE IN SERUM OR /2021 No comment e ntered. IS [facility] METABOLIC PLASMA Ordering Prov ider: LILI GARCIA PANEL+MG Report Release d Date/Time: Feb 17, 2022 11:17 AM Reporting Lab: [facility] [place] [address] Performing Lab: [facility] [place] [address] COMPREHEN ALKALINE 68 40 - 150 04/22 Specimen Typ e: PLASMA [place] SIVE PHOSPHATASE /2021 No comment e ntered. IS [facility] METABOLIC [ENZYMATIC Ordering P rovider: LILI GARCIA PANEL+MG ACTIVITY/VO Report Rel eased Date/Time: Feb 17, 2022 11:17 AM LUME] IN Reporting Lab: [facility] SERUM [place] [address] PLASMA Performing Lab: [facility] [place] [address] COMPREHEN ALANINE 15 <55 - 55 04/22 Specimen Type : [place] SIVE AMINOTRANSF /2021 No comment e ntered. IS [facility] METABOLIC ERASE Ordering Prov ider: LILI GARCIA PANEL+MG [ENZYMATIC Report Rele ased Date/Time: Feb 17, 2022 11:17 AM ACTIVITY/VO Reporting L ab: [facility] LUME] [place] [address] SERUM OR Performing Lab : [facility] PLASMA [place] [address] COMPREHEN ASPARTATE 22 <34 - 34 04/22 Specimen Ty pe: PLASMA [place] SIVE AMINOTRANSF /2021 No comment e ntered. IS [facility] METABOLIC ERASE Ordering Prov ider: LILI GARCIA PANEL+MG [ENZYMATIC Report Rele ased Date/Time: Feb 17, 2022 11:17 AM ACTIVITY/VO Reporting L ab: [facility] [place]] IN [address] [facility] [address] SERUM OR Performing Lab : [facility] PLASMA [place] [address] COMPREHEN GLOMERULAR 78 60 04/22 Specimen Ty pe: PLASMA [place] SIVE FILTRATION /2021 No comment en tered. IS [facility] METABOLIC RATE/1.73 Ordering Pr ovider: LILI GARCIA PANEL+MG SQ Report Release d Date/Time: Feb 17, 2022 11:17 AM M.PREDICTED Reporting L ab: [facility] [VOLUME [place] [address] RATE/AREA] Performing L ab: [facility] IN SERUM, [address] [facility] [address] PLASMA OR BLOOD BY CREATININE- BASED FORMULA (CKD-EPI) CBC & LEUKOCYTES 4.55 4.0 - 11.0 04/22 Specimen T ype: BLOOD [place] DIFF [#/VOLUME] /2021 Comment: Aut omated Differential Performed IS [facility] IN BLOOD BY Ordering Pr ovider: LILI GARCIA AUTOMATED Report Releas ed Date/Time: Feb 17, 2022 11:17 AM COUNT Reporting Lab: [facility] [place] [address] Performing Lab: [facility] [place] [address] CBC & ERYTHROCYTE 4.32 4.6 - 6.2 04/22 L Specimen T ype: BLOOD [place] DIFF S /2021 Comment: Automa rosalba Differential Performed IS [facility] [#/VOLUME] Ordering Pro vider: LILI GARCIA IN BLOOD BY Report Rele ased Date/Time: Feb 17, 2022 11:17 AM AUTOMATED Reporting Lab : [facility] [place] [address] Performing Lab: [facility] [place] [address] CBC & HEMOGLOBIN 14.5 13.5 - 04/22 Specimen Type : BLOOD [place] DIFF [MASS/VOLUM 17.9 /2021 Comment: Au tomated Differential Performed IS [facility] E] IN BLOOD Ordering Pr ovider: LILI GARCIA Report Released Date/Time: Feb 17, 2022 11:17 AM Reporting Lab: [facility] [place] [address] Performing Lab: [facility] [place] [address] CBC & HEMATOCRIT 43.0 41 - 54 08/ Specimen Type : BLOOD [place] DIFF [VOLUME /2021 Comment: Automa rosalba Differential Performed IS [facility] FRACTION] Ordering Prov ider: LILI GARCIA OF BLOOD BY Report Rele ased Date/Time: Feb 17, 2022 11:17 AM AUTOMATED Reporting Lab : [facility] [place] [address] Performing Lab: [facility] [place] [address] CBC & MCV 99.5 80 - 100 08 Specimen Type: BLOOD [place] DIFF [ENTITIC /2021 Comment: Autom ated Differential Performed IS [facility] VOLUME] BY Ordering Pro vider: LILI GARCIA AUTOMATED Report Releas ed Date/Time: Feb 17, 2022 11:17 AM COUNT Reporting Lab: [facility] [place] [address] Performing Lab: [facility] [place] [address] CBC & MCH 33.6 27 - 33 08/09 H Specimen Type: B LOOD [place] DIFF [ENTITIC /2021 Comment: Autom ated Differential Performed IS [facility] MASS] BY Ordering Provi danilo: LILI GARCIA AUTOMATED Report Releas ed Date/Time: Feb 17, 2022 11:17 AM COUNT Reporting Lab: [facility] [address] [facility] [address] Performing Lab: [facility] [address] [facility] [address] CBC & MCHC 33.7 32.0 - 08/09 Specimen Type: B LOOD [place] DIFF [MASS/VOLUM 37.5 /2021 Comment: Au tomated Differential Performed IS [facility] E] BY Ordering Provid er: LILI GARCIA AUTOMATED Report Releas ed Date/Time: Feb 17, 2022 11:17 AM COUNT Reporting Lab: [facility] [place] [address] Performing Lab: [facility] [address] [facility] [address] CBC & PLATELETS 211 150 - 400 04/22 Specimen Typ e: BLOOD [place] DIFF [#/VOLUME] /2021 Comment: Aut omated Differential Performed IS [facility] IN BLOOD BY Ordering Pr ovider: RADHAGOBIND AUTOMATED Report Releas ed Date/Time: Feb 17, 2022 11:17 AM COUNT Reporting Lab: [facility] [address] [facility] [address] Performing Lab: [facility] [address] [facility] [address] CBC & PLATELET 10.0 7.4 - 10.4 04/22 Specimen Typ e: BLOOD [place] DIFF MEAN VOLUME /2021 Comment: Au tomated Differential Performed IS [facility] [ENTITIC Ordering Provi danilo: TARABIGOBIND VOLUME] IN Report Relea sed Date/Time: Feb 17, 2022 11:17 AM BLOOD BY Reporting Lab: [facility] AUTOMATED [address] [facility] [address] COUNT Performing Lab: [facility] [address] [facility] [address] CBC & NEUTROPHILS 52.6 04/22 Specimen Typ e: BLOOD [place] DIFF /100 Comment: Automa rosalba Differential Performed IS [facility] LEUKOCYTES Ordering Pro vider: TARJEMND,GOBIND IN BLOOD BY Report Rele ased Date/Time: Feb 17, 2022 11:17 AM MANUAL Reporting Lab: [facility] [place] [address] Performing Lab: [facility] [address] [facility] [address] CBC & LYMPHOCYTES 26.8 04/22 Specimen Typ e: BLOOD [place] DIFF /100 /2021 Comment: Automa roslaba Differential Performed IS [facility] LEUKOCYTES Ordering Pro vider: TARCHAND,GOBIND IN BLOOD BY Report Rele ased Date/Time: Feb 17, 2022 11:17 AM MANUAL Reporting Lab: [facility] [address] [facility] [address] Performing Lab: [facility] [address] [facility] [address] CBC & MONOCYTES/1 15.6 08 Specimen Typ e: BLOOD [place] DIFF Comment: Automa rosalba Differential Performed IS [facility] LEUKOCYTES Ordering Pro vider: TARCHAND,GOBIND IN BLOOD BY Report Rele ased Date/Time: Feb 17, 2022 11:17 AM AUTOMATED Reporting Lab : [facility] COUNT [address] [facility] [address] Performing Lab: [facility] [address] [facility] [address] CBC & EOSINOPHILS 4.4 08 Specimen Typ e: BLOOD [place] DIFF /100 /2021 Comment: Automa rosalba Differential Performed IS [facility] LEUKOCYTES Ordering Pro vider: LILI GARCIA IN BLOOD BY Report Rele ased Date/Time: Feb 17, 2022 11:17 AM AUTOMATED Reporting Lab : [facility] COUNT [address] [address] Performing Lab: [facility] [address] [facility] [address] CBC & BASOPHILS/1 0.4 04/22 Specimen Typ e: BLOOD [place] DIFF 00 Comment: Automa rosalba Differential Performed IS [facility] LEUKOCYTES Ordering Pro vider: LILI GARCIA IN BLOOD BY Report Rele ased Date/Time: Feb 17, 2022 11:17 AM MANUAL Reporting Lab: [facility] COUNT [address] [address] Performing Lab: [facility] [address] [facility] [address] CBC & ERYTHROCYTE 12.1 11.5 - 08 Specimen Typ e: BLOOD [place] DIFF DISTRIBUTIO 14.5 Comment: Au tomated Differential Performed IS [facility] N WIDTH Ordering Provid er: LILI GARCIA [RATIO] BY Report Relea sed Date/Time: Feb 17, 2022 11:17 AM AUTOMATED Reporting Lab : [facility] COUNT [address] [address] Performing Lab: [facility] [address] [facility] [address] CBC & LYMPHOCYTES 1.22 1.0 - 4.0 08 Specimen T ype: BLOOD [place] DIFF [#/VOLUME] /2021 Comment: Aut omated Differential Performed IS [facility] IN BLOOD BY Ordering Pr ovider: LILI GARCIA AUTOMATED Report Releas ed Date/Time: Feb 17, 2022 11:17 AM COUNT Reporting Lab: [facility] [address] [address] Performing Lab: [facility] [address] [address] CBC & MONOCYTES 0.71 0.1 - 1.0 08/ Specimen Typ e: BLOOD [place] DIFF [#/VOLUME] /2021 Comment: Aut omated Differential Performed IS [facility] IN BLOOD BY Ordering Pr ovider: LILI GARCIA AUTOMATED Report Releas ed Date/Time: Feb 17, 2022 11:17 AM COUNT Reporting Lab: [facility] [place] [address] Performing Lab: [facility] [place] [address] CBC & NEUTROPHILS 2.39 2.0 - 7.7 08/ Specimen T ype: BLOOD [place] DIFF [#/VOLUME] /2021 Comment: Aut omated Differential Performed IS [facility] IN BLOOD BY Ordering Pr ovider: LILI GARCIA AUTOMATED Report Releas ed Date/Time: Feb 17, 2022 11:17 AM COUNT Reporting Lab: [facility] [address] [address] Performing Lab: [facility] [address] [address] CBC & EOSINOPHILS 0.20 0 - 0.5 04/22 Specimen Typ e: BLOOD [place] DIFF [#/VOLUME] /2021 Comment: Aut omated Differential Performed IS [facility] IN BLOOD BY Ordering Pr ovider: LILI GARCIA AUTOMATED Report Releas ed Date/Time: Feb 17, 2022 11:17 AM COUNT Reporting Lab: [facility] [address] [facility] [address] Performing Lab: [facility] [address] [facility] [address] CBC & BASOPHILS 0.02 0 - 0.2 04/22 Specimen Type: BLOOD [place] DIFF [#/VOLUME] /2021 Comment: Aut omated Differential Performed IS [facility] IN BLOOD BY Ordering Pr ovider: LILI GARCIA AUTOMATED Report Releas ed Date/Time: Feb 17, 2022 11:17 AM COUNT Reporting Lab: [facility] [address] [address] Performing Lab: [facility] [address] [facility] [address] CBC & IG(META,MYE 0.2 04/22 Specimen Typ e: BLOOD [place] DIFF LO,PRO) /2021 Comment: Automa rosalba Differential Performed IS [facility] Ordering Provid er: LILI GARCIA Report Released Date/Time: Feb 17, 2022 11:17 AM Reporting Lab: [facility] [address] [address] Performing Lab: [facility] [address] [address] CBC & IMMATURE 0.01 0 - 0.1 04/22 Specimen Type: BLOOD [place] DIFF GRANULOCYTE Comment: Au tomated Differential Performed IS [facility] S Ordering Provid er: LILI GARCIA [PRESENCE] Report Relea sed Date/Time: Feb 17, 2022 11:17 AM IN BLOOD BY Reporting L ab: [facility] AUTOMATED [address] [facility] [address] [facility] [address] COUNT Performing Lab: [facility] [address] [facility] [address] SEROTONIN SEROTONIN 1441 56 - 244 02/17 H Specimen Ty pe: SERUM [place] [MASS/VOLUM Comment: Th is test was developed and its analytical performance characteristics have been determined by [facility] It has not been cleared or approved by [facility] E] IN SERUM DA. This ass ay has been validated pursuant to the CLIA regulations and is used for clinical purposes. Test performed by [facility] [address] [address] [place], [place] [address] Phone: Strap Cutting Machine Operator: Felicia Rizzo MD,PHD,BERTHA Test Reported by [facility], [facility], [address] [place] [address] Truman Doan M.D., Ph.D., Director of Laboratories , CLIA [id number] Ordering Provid er: LILI GARCIA Report Released Date/Time: Oct 29, 2021 10:15 AM Reporting Lab: [facility] [address] [facility] [address] Performing Lab: [address] Vital Signs Combined list of inpatient and outpatient Vital Signs from Department of Defense and Veterans Affairs, ranging from 12 months to all on record, depending upon the facility. Vital Sign Value Date Comments Source SYSTOLIC BLOOD PRESSURE 107 05/20/2022 08:26:03 [facility] DIASTOLIC BLOOD PRESSURE 68 05/20/2022 08:26:03 [facility] PULSE OXIMETRY 92% 05/20/2022 08:26:03 [facility] WEIGHT 223 05/20/2022 08:26:03 [facility] BMI 31kg/m2 05/20/2022 08:26:03 [facility] HEIGHT 70.669 05/20/2022 08:26:03 [facility] TEMPERATURE 98.1 05/20/2022 08:26:03 [facility] PULSE 74 05/20/2022 08:26:03 [facility] RESPIRATION 16 05/20/2022 08:26:03 [facility] SYSTOLIC BLOOD PRESSURE 111 04/04/2022 08:20:34 [facility] DIASTOLIC BLOOD PRESSURE 74 04/04/2022 08:20:34 [facility] PULSE OXIMETRY 96% 04/04/2022 08:20:34 [facility] WEIGHT 222.4 04/04/2022 08:20:34 [facility] BMI 32kg/m2 04/04/2022 08:20:34 [facility] PAIN 6 04/04/2022 08:20:34 [facility] HEIGHT 70 04/04/2022 08:20:34 [facility] TEMPERATURE 98.2 04/04/2022 08:20:34 [facility] PULSE 73 04/04/2022 08:20:34 [facility] RESPIRATION 18 04/04/2022 08:20:34 [facility] SYSTOLIC BLOOD PRESSURE 117 02/17/2022 08:49:14 [facility] DIASTOLIC BLOOD PRESSURE 80 02/17/2022 08:49:14 [facility] PULSE OXIMETRY 96% 02/17/2022 08:49:14 [facility] WEIGHT 219.8 02/17/2022 08:49:14 [facility] BMI 31kg/m2 02/17/2022 08:49:14 [facility] PAIN 0 02/17/2022 08:49:14 [facility] HEIGHT 70.866 02/17/2022 08:49:14 [facility] TEMPERATURE 98 02/17/2022 08:49:14 [facility] PULSE 67 02/17/2022 08:49:14 [facility] RESPIRATION 16 02/17/2022 08:49:14 [facility] SYSTOLIC BLOOD PRESSURE 123 12/18/2021 11:32:05 [facility] DIASTOLIC BLOOD PRESSURE 78 12/18/2021 11:32:05 [facility] PULSE OXIMETRY 96% 12/18/2021 11:32:05 [facility] WEIGHT 223.7 12/18/2021 11:32:05 [facility] BMI 32kg/m2 12/18/2021 11:32:05 [facility] HEIGHT 70 12/18/2021 11:32:05 [facility] TEMPERATURE 97.8 12/18/2021 11:32:05 [facility] PULSE 58 12/18/2021 11:32:05 [facility] SYSTOLIC BLOOD PRESSURE 104 10/29/2021 09:49:25 [facility] DIASTOLIC BLOOD PRESSURE 70 10/29/2021 09:49:25 [facility] PULSE OXIMETRY 97% 10/29/2021 09:49:25 [facility] WEIGHT 222 10/29/2021 09:49:25 [facility] BMI 31kg/m2 10/29/2021 09:49:25 [facility] PAIN 0 10/29/2021 09:49:25 [facility] HEIGHT 70.5 10/29/2021 09:49:25 [facility] TEMPERATURE 97.6 10/29/2021 09:49:25 [facility] PULSE 74 10/29/2021 09:49:25 [facility] RESPIRATION 18 10/29/2021 09:49:25 [facility] Encounters Combined list of: 1) Encounters from Department of Veterans Affairs facilities going back up to the last 18 months. 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 Location Location Encounter Encounter Reason Attending ADM DC Stat us Disposition Source Details Type Number For Provider Date Date Visit Outpatient 39124-412/06 [place] [id number] [facility] 20646-912/06 [place] En[place] [id number] /2021 [facility] HC PRO 41148-0.61 Diagnos ITALO CHANDLER 12/10 [place] PHONE CALL [id number] is: [facility] [place] [facility] 11[facility] MIN ICD-10- HCS CM Z79.01 long-term (curren t) use of anticoa gulants
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 Outpatient 58386-9.61 04 [place] [facility] [id number] [facility] Outpatient 58330-2.61 / [place] En[place] [id number] [facility] Outpatient 02497-9.61 / [place] En[place] [id number] [facility] Outpatient 26034-8.61 12/21 [place] En[place] [id number] [facility] Outpatient 16965-2.61 12/24 [place] Encounter [id number] /2020 [place] [place] [address]-0.61 Diagnos CHARLIE LYN 12/24 [place] DIG [id number] is: IFER JEREMIE [facility] ASSMT&MGMT ICD-10- HCS 5-10 CM Z51.81 Encount er for therape utic drug level monitor ing<br/ >with Provide r Comment s: Encount er For Therape utic Drug Level Monitor ing (ICD-10 -CM Z51.81) OCTREOTIDE 86052-7.61 Diagnos EVELYN ROSE 12/25 [place] IN[place]CTION, [id number] is: LLI [facility] ICD-10- HCS CM 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
with Provide r Comment s: Carcino id tumor (SCT [id number] 08) Outpatient 00085-9.61 02/04 [place] En[place] [id number] /2020 [facility] Out[facility] 63387-1.61 / [place] Encounter [id number] /2020 [facility] Outpatient 79157-5.61 02/19 [place] Encounter [id number] /2020 [facility] HC PRO 14170-0.61 Diagnos LISETTE BROOKS 02/19 [place] PHONE CALL [id number] is: ISTIN Y /2020 [facility] 5-10 MIN ICD-10- HCS CM Z79.01 long-term (curren t) use of anticoa gulants
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
with Provide r Comment s: Carcino id tumor (SCT [id number] 08) Outpatient 74537-1.61 05/29 [place] En[place] [id number] /2020 [facility] Outpatient 79886-6.61 06/11 [place] En[place] [id number] /2020 [facility] Outpatient 22153-3.61 06/11 [place] En[place] [id number] /2020 [facility] 02645-6.61 06/13 [place] En[place] [id number] /2020 [facility] HC PRO 53375-6.61 ROSALINE Cisneros 06/13 [place] PHONE CALL [id number] is: LIE A [facility] 11-20 MIN ICD-10- HCS CM Z51.81 Encount er for therape utic drug level monitor ing<br/ >with Provide r Comment s: Encount er for therape utic drug level monitor ing Outpatient 74055-361 Kasia DE JESUS 06/13 [place] Encounter [id number] JENNIFER R /[address] [facility] Outpatient 37398-4.61 06/14 [place] Encounter [id number] [facility] OFFICE O/P 11478-6 Oleg Chaudhari 06/25 [place] EST HI [id number] is: OBIND /2020 [facility] 40-54 MIN ICD-10- HCS CM 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
with Provide r Comment s: Carcino id tumor (SCT [id number] 08) HC PRO 00952-2.61 Diagnos RADHA, 06/26 [place] PHONE CALL [id number] is: JEANNETTE L /2020 [facility] 11-20 MIN ICD-10- HCS CM Z51.81 Encount er for therape utic drug level monitor ing<br/ >with Provide r Comment s: Encount er for therape utic drug level monitor ing Outpatient 45922-207/10 [place] En[place] [id number] [facility] Outpatient 92369-7.07/10 [place] En[place] [id number] [facility] Outpatient 70336-2.61 07/11 [place] Encounter [id number] [facility] HC PRO 50609-661 Elaina SPRING MA 07/11 [facility] PHONE CALL [id number] is: TTCOLIN S /2020 [facility] 11-20 MIN ICD-10- HCS CM Z51.81 Encount er for therape utic drug level monitor ing<br/ >with Provide r Comment s: Encount er for therape utic drug level monitor ing Outpatient 02481-3.61 07/23 [place] Encounter [id number] [facility] OCTREOTIDE 34478-9.61 Diagnos DARIEL RENE 07/23 [place]CTION, [id number] is: WILFRIDO J [facility] ICD-10- HCS CM 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
wi Provide r Comment s: Other care home (curren t) drug therapy Outpatient 20368-9.61 07/23 [place] Encounter [id number] [facility] HC PRO 32652-561 Diagnos ROSALINE STORY 07/24 [place] PHONE CALL [id number] is: HUMERA [facility] 11-20 MIN ICD-10- HCS CM Z51.81 Encount er for therape utic drug level monitor ing<br/ >with Provide r Comment s: Encount er for therape utic drug level monitor ing Outpatient 35022-6.61 08/07 [place] En[place] [id number] [facility] [place] [facility] Outpatient 37279-4.61 08/07 [place] En[place] [id number] /2021 [facility] HC PRO 65530-5.61 Diagnos LASTDiego 08/07 [place] PHONE CALL [id number] is: MOHINI [place] [facility] 11-20 MIN ICD-10- HCS CM Z51.81 Encount er for therape utic drug level monitor ing<br/ >with Provide r Comment s: Encount er for therape utic drug level monitor ing THER/PROPH 34776-6.61 Diagnos DOMINIQUE ARGUETA 08/15 [place] /DIAG INJ [id number] is: L [facility] [place]/IM ICD-10- HCS CM Z79.899 Other care home (curren t) drug therapy
wi Provide r Comment s: Other care home (curren t) drug therapy Outpatient 82959-7.61 MASTER CHISHOLM 08/15 [place] Encounter [id number] IN [facility] Outpatient 95060-061 / [place] Encounter [id number] [facility] Outpatient 05141-161 08/19 [place] Encounter [id number] /2020 [facility] HC PRO 20326-3 Diagnos LUIS F SPRING 08/20 [place] PHONE CALL [id number] is: TTHEW S /2020 [facility] 11-20 [facility] ICD-10- HCS CM Z51.81 Encount er for therape utic drug level monitor ing<br/ >with Provide r Comment s: Encount er for therape utic drug level monitor ing Outpatient 52113-3 12 [place] En[place] [id number] /2020 [facility] Outpatient 55981-8/ [place] En[place] [id number] /2020 [facility] HC PRO Philip Matta 09/03 M [place] PHONE CALL [id number] is: EATHER L /2020 [facility] 11-20 MIN ICD-10- HCS CM Z51.81 Encount er for therape utic drug level monitor ing<br/ >with Provide r Comment s: Encount er For Therape utic Drug Level Monitor ing (ICD-10 -CM Z51.81) Outpatient 53285-709/09 [place] Encounter [id number] [facility] OCTREOTIDE JORDAN Barnett 09/10 [place] INJECTION, [id number] is: J /2020 [facility] ICD-10- HCS CM 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
with Provide r Comment s: Carcino id tumor (SCT [id number]) Outpatient 28218-061 09/17 [place] Encounter [id number] [facility] Outpatient 10694-961 09/17 [place] Encounter [id number] [facility] MTMS BY ROSALINE Cisneros 09/18 [place] PHARM EST [phone] is: LIE A [facility] 15 MIN ICD-10- HCS CM Z51.81 Encount er for therape utic drug level monitor ing<br/ >with Provide r Comment s: Encount er for therape utic drug level monitor ing Outpatient 59729-4.61 10/01 [place] Encounter [id number] [facility] OCTREOTIDE 84236-9.61 Diagnos Fariha MCFADDEN 10/08 [place] INJECTION, [id number] is: VANI [facility] DEPOT ICD-10- HCS CM 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
wi Provide r Comment s: Other care home (cur[place] [address]-8.61 Diagnos POABNER,H 10/30 [place] DIG [phone] is: CHUY [facility] ASSMT&MGMT ICD-10- HCS 5-10 CM Z51.81 Encount er for therape utic drug level monitor ing<br/ >with Provide r Comment s: Encount er For Therape utic Drug Level Monitor ing (ICD-10 -CM Z51.81) THER/PROPH 28849-1 Diagnos DOMINIQUE ARGUETA 11/26 [place] /DIAG INJ [phone] is: L [facility] SC/IM ICD-10- HCS CM Z79.899 Other care home (curren t) drug therapy
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 (cur[place] [address]-4.61 Diagnos [facility], 11/27 [place] DIG [phone] is: JEANNETTE [facility] ASSMT&MGMT ICD-10- HCS 5-10 CM Z51.81 Encount er for therape utic drug level monitor ing<br/ >with Provide r Comment s: Encount er For Therape utic Drug Level Monitor ing (ICD-10 -CM Z51.81) Outpatient 34456-9.61 12/10 [place] Encounter [id number] /[facility] 56204-7.61 12/10 [place] Encounter [id number] /2021 [facility] HC PRO 57137-4.61 Diagnos SAWKY 12/11 [place] PHONE CALL [phone] is: TTHEW [facility] 11-20 MIN ICD-10- HCS CM Z51.81 Encount er for therape utic drug level monitor ing<br/ >with Provide r Comment s: Encount er for therape utic drug level monitor ing ELECTROCAR 46873-4.61 Diagnos CLAUDIA ADAMS 12/18 [place] DIOGRAM [phone] is: TT [facility] COMPLETE ICD-10- HCS CM Z13.6 Encount er for screeni ng for cardiov ascular disorde rs
with Provide r Comment s: Encount er for Screeni ng for Cardiov ascular Disorde rs OFFICE O/P Diagnos AB STERLING 12/18 [place] EST MOD [id number] is: JACK L [facility] 30-39 MIN ICD-10- HCS CM I48.91 Unspeci fied atrial fibrill ation<b r/>with Provide r Comment s: Atrial fibrill ation (SCT [id number]) THER/PROPH Diagnos ELLIEDOMINIQUE 12/24 [place] /DIAG INJ [phone] is: L B [facility] SC/IM ICD-10- HCS CM Z79.899 Other care home (curren t) drug therapy
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
wi Provide r Comment s: long-term (curren t) use of anticoa gulants Outpatient 62568-2.61 02/18 [place] Encounter [id number] [facility] HC PRO Diagnos LUIS F [place] 02/19 [place] PHONE CALL [phone] is: TTHEW S [facility] 11-20 MIN ICD-10- HCS CM Z51.81 Encount er for therape utic drug level monitor ing<br/ >with Provide r Comment s: Encount er for Therape utic Drug Level Monitor ing Outpatient 12582-6 03/20 [place] Encounter [id number] [place] [address]-961 Diagnos KEYSHA LY 03/21 [place] DIG 8.65953583 is: IFER JEREMIE [facility] A ASSMT&MGMT ICD-10- HCS 5-10 CM Z51.81 Encount er for therape utic drug level monitor ing<br/ >with Provide r Comment s: Encount er For Therape utic Drug Level Monitor ing (ICD-10 -CM Z51.81) Outpatient 28430-9.61 03/21 [place] Encounter [id number] [facility] THER/PROPH 91959-3 Diagnos DOMINIQUE ARGUETA 03/25 [place] /DIAG INJ 8.75681318 is: L [facility] SC/IM ICD-10- HCS CM 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
with Provide r Comment s: Carcino id tumor (SCT [id number] 08) [place] [address]-261 Diagnos MIKE HEAD 04/23 [place] DIG 8.24440927 is: [facility] ASSMT&MGMT ICD-10- HCS 5-10 CM Z51.81 Encount er for therape utic drug level monitor ing<br/ >with Provide r Comment s: Encount er For Therape utic Drug Level Monitor ing (ICD-10 -CM Z51.81) Outpatient 54130-2.61 ROBERT,Diego 04/24 [place] Encounter [id number] [facility] [facility] HCS OFFICE O/P 15219-4 Diagnos CHRISTOFER,AD 05/05 [place] NEW MOD [phone] is: AM R [facility] 45-59 MIN ICD-10- HCS CM M76.61 Samira s tendini tis, right leg<br/ >with Provide r Comment s: [place] tendini tis, right leg Outpatient 07448-361 05/12 [place] Encounter [id number] [facility] ELECTROCAR 66829-9 Diagnos MENG US 05/20 [place] DIOGRAM [phone] is: NZ [facility] COMPLETE ICD-10- HCS CM Z13.6 Encount er for screeni ng for cardiov ascular disorde rs
with Provide r Comment s: Encount er for Screeni ng for Cardiov ascular Disorde rs OFFICE O/P 22638-4 Diagnos JOAN,BR 05/20 [place] EST MOD 8.84296903 is: IDGETTE [place] [facility] 30-39 MIN ICD-10- HCS CM Z01.818 Encount er for other preproc edural examina tion
with Provide r Comment s: PreOp Exam THER/PROPH 37773-8 Diagnos DOMINIQUE ARGUETA 05/20 [place] /DIAG INJ [id number] is: L [facility] SC/IM ICD-10- HCS CM Z79.899 Other care home (curren t) drug therapy
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 r Comment s: Long-te rm current use of anticoa gulant (SCT [id number] 03) Outpatient 36637-9 ELIZABETH Figueroa 05/23 [place] Encounter [phone] is: YE [facility] ICD-10- HCS CM Z01.818 Encount er for other preproc edural examina tion
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
with Provide r Comment s: Sports Marketing Specialist ing, unspeci fied Procedures Combined list of: 1) Procedures from Department of Veterans Affairs facilities going back up to the last 18 months, not all VA non-surgical procedures are included; 2) All procedures from the 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 Procedure Procedure Type Code Date Perfomer Comments Sourc e COLONOSCOPY, FLEXIBLE; 01/23/2003 DoD WITH BIOPSY, SINGLE OR MULTIPLE ARTHROCENTESIS, 06/24/2002 DoD ASPIRATION AND/OR INJECTION, INTERMEDIATE JOINT OR BURSA (EG, TEMPOROMANDIBULAR, ACROMIOCLAVICULAR, WRIST, ELBOW OR ANKLE, OLECRANON BURSA); WITHOUT ULTRASOUND GUIDANCE HANDLING AND/OR 09/16/2001 DoD CONVEYANCE OF SPECIMEN FOR TRANSFER FROM THE OFFICE TO A LABORATORY EDUCATIONAL SUPPLIES, 07/13/2001 DoD SUCH BOOKS, TAPES, AND PAMPHLETS, FOR THE PATIENT'S EDUCATION AT COST TO PHYSICIAN OR OTHER QUALIFIED HEALTH IMMIGRATION SPECIALIST PRESCRIPTION OF OPTICAL 07/13/2001 DoD AND PHYSICAL CHARACTERISTICS OF AND FITTING OF CONTACT LENS, WITH MEDICAL SUPERVISION OF ADAPTATION; CORNEAL LENS, BOTH EYES, EXCEPT FOR APHAKIA PHYSICAL THERAPY 05/31/2001 Do D RE-EVALUATION COLONOSCOPY, FLEXIBLE, 05/14/2001 DoD PROXIMAL TO SPLENIC FLEXURE; WITH ABLATION OF TUMOR(S), POLYP(S), OR OTHER LESION(S) NOT AMENABLE TO REMOVAL BY HOT BIOPSY FORCEPS, BIPOLAR CAUTERY OR SNARE TECHNIQUE THERAPEUTIC ACTIVITIES, 05/11/2001 DoD DIRECT (ONE-ON-ONE) PATIENT CONTACT (USE OF DYNAMIC ACTIVITIES TO IMPROVE FUNCTIONAL PERFORMANCE), EACH 15 MINUTES PRESCRIPTION OF OPTICAL 04/14/2001 DoD AND PHYSICAL CHARACTERISTICS OF AND FITTING OF CONTACT LENS, WITH MEDICAL SUPERVISION OF ADAPTATION; CORNEAL LENS, BOTH EYES, EXCEPT FOR APHAKIA OPHTHALMOSCOPY, 06/17/2000 DoD EXTENDED, WITH RETINAL DRAWING (EG, FOR RETINAL DETACHMENT, MELANOMA), WITH MEDICAL DIAGNOSTIC EVALUATION; SUBSEQUENT PRESCRIPTION OF OPTICAL 05/05/2000 DoD AND PHYSICAL CHARACTERISTICS OF AND FITTING OF CONTACT LENS, WITH MEDICAL SUPERVISION OF ADAPTATION; CORNEAL LENS, BOTH EYES, EXCEPT FOR APHAKIA Social History Combined list of available smoking, tobacco, and other social history from 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 Social History Type Response Date Comment Source Tobacco smoking status VA-TOBACCO NEVER USED 04/04/2022 [facility] NHIS History of tobacco use VA-TOBACCO NEVER USED 05/15/2021 [facility] History of tobacco use VA-TOBACCO NEVER USED 10/05/2019 [facility] History of tobacco use INPT NO TOBACCO USE IN 10/20/2018 [facility] LAST 30 DAYS History of tobacco use SC-TOBACCO NEVER USED 09/15/2018 [facility] History of tobacco use LIFETIME NON-TOBACCO 08/11/2017 [facility] USER History of tobacco use LIFETIME NON-TOBACCO 07/08/2016 [facility] USER History of tobacco use LIFETIME NON-TOBACCO 05/09/2015 [facility] USER History of tobacco use LIFETIME NON-TOBACCO 04/14/2014 [facility] USER History of tobacco use LIFETIME NON-TOBACCO 01/06/2007 [facility] USER This section is an [facility] empty social history section. Plan of Care List of future care activities from Department of 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 Additional future care activities may be listed in the Assessment and Plan section. Date/Time Care Activity Care Activity Detail Facility 06/17/2022 AMBULATORY - NONE AMBULATORY - NONE [facility]
--- OUTSIDE RECORDS SUMMARY | 2022-06-06 11:40 | XMS_ITS | Encounter Summary ---
:1945 Author Organization Department [facility] rs Address [address] [place] [id number] Support Name Relationship Address Phone Arti CORONEL Unavailable [address] [place] [address] ADITYA MALIN Unavailable [address] [phone] [place] [id number] Insurance Providers: All historical and current Section Date Range: From patient's date of to the date document was created.This section includes the names of all active insurance providers for the patient. Insurance Type of Plan Start of End of Group Member Insurance Policy P atient's Provider Coverage Name Policy Policy Number ID Provider's Hurley's Relationship Coverage Coverage Telephone Name to Policy Number Hurley MEDICARE MEDICARE PART May 15, PART A [id number] [phone] HMOER HUNTER (WNR) (M) A 2008 94A [phone] ,ELLE MEDICARE MEDICARE PART May 15, PART B [id number] 800 HOMER HUNTER (WNR) (M) B 2008 94A [phone] ,ELLE Selected Encounter This section includes the information on record at [place] for the Encounter. Date/Time Encounter Type Encounter Reason Provider Source Description Aug 07, 2021 HC PRO PHONE TELEPHONE/MEDICIN ICD-10-CM Z51.81 LUISITO NI 01:19 PM CALL 11-20 MIN E Encounter for M therapeutic drug level monitoring with Provider Comments: Encounter for therapeutic drug level monitoring IHE Encounter Template Text not used by [place] Assessments - Encounter Diagnoses This section includes the primary and secondary diagnoses documented for the Encounter. Date/Time Primary/Secondary Diagnosis Name Provider Source Diagnosis Aug 07, 2021 PRIMARY Encounter for SALINAS REID V A 01:19 PM therapeutic drug HCS level monitoring Aug 07, 2021 SECONDARY half-way (current) SALINAS REID [place] 01:19 PM use of HCS anticoagulants Aug 07, 2021 SECONDARY Personal history of SAL[place]AS REID [place] 01:19 PM other venous HCS thrombosis and embolism Aug 07, 2021 SECONDARY Unspecified atrial SALINAS REID [place] 01:19 PM fibrillation HCS Plan of Treatment: Future Appointments (+ 6 months) and Future Tests (+/- 45 days) The Plan of Treatment section includes future care activities for the patient from all [place] treatmentfacilities. This section includes future appointments and future orders which are active, pending orscheduled.Future Appointments This section includes appointments that were scheduled to occur 6 months from the date of the Encounter, up to a maximum of 20 appointments. The data comes from all [place] treatment facilities. Appointment Date/Time Appointment Type Appointment Facili ty Name Aug 15, 2021 09:30 AM AMBULATORY - MEDICINE [facility] Aug 15, 2021 10:11 AM AMBULATORY - NEUROLOGY [facility] Sep 10, 2021 09:30 AM AMBULATORY - MEDICINE [facility] Sep 10, 2021 10:35 AM AMBULATORY - NEUROLOGY [facility] Oct 08, 2021 08:30 AM AMBULATORY - MEDICINE [facility] Oct 29, 2021 09:00 AM AMBULATORY - NONE [facility] Oct 29, 2021 09:15 AM AMBULATORY - NONE [facility] Oct 29, 2021 10:00 AM AMBULATORY - MEDICINE [facility] Oct 29, 2021 10:30 AM AMBULATORY - MEDICINE [facility] Nov 26, 2021 09:30 AM AMBULATORY - MEDICINE [facility] Nov 26, 2021 10:15 AM AMBULATORY - NONE [facility] Dec 18, 2021 10:30 AM AMBULATORY - NONE [facility] Dec 18, 2021 11:00 AM AMBULATORY - MEDICINE [facility] Dec 18, 2021 11:30 AM AMBULATORY - MEDICINE [facility] Dec 24, 2021 09:30 AM AMBULATORY - MEDICINE [facility] January 21, 2022 09:30 AM AMBULATORY - MEDICINE [facility] Lab Results: +/- 30 days of the encounter This section includes the Chemistry and Hematology Lab Results on record with [place] for the patient. Radiology Reports and Pathology Reports are provided separately, in subsequent sections.Lab Results This section contains the Chemistry/Hematology Results that were resulted 30 days before or 30 daysafter the date of the Encounter. Date/Time Source Result Type Result - Unit Interpretation Reference Range Comment Aug 15, 2021 [facility] COVID-19 AND FLU/RSV DIAG Sp ecimen Type: NASOPHARYNGEAL 10:10 AM PANEL(CEPHEID) Comment: Alcides garibay GeneXpert ([id number]) Ordering Provid er: GLENN CHISHOLM Report Released Date/Time: Aug 15, 2021 10:11 AM Reporting Lab: [facility] [address] [facility] [id number] Performing Lab: [facility] [address] [facility] [id number] COVID-19 (CEPHEID) Not Detected Not Dete cted INFLUENZA A (PCR) Not Detected Not Detec rosalba INFLUENZA B (PCR) Not Detected Not Detec rosalba RSV (PCR) Not Detected Not Detected Social History: Smoking Status (Most current) and Tobacco Use (All prior to encounter date) This section includes the most current, and the historical, smoking and tobacco-related health factors from the [place] facility where the Encounter took place.Current Smoking Status This section includes the most current smoking, or tobacco-related health factor, from the [facility] where the Encounter took place. Date/Time Current Smoking Status Comment Facility May 15, 2021 10:00 AM [place]-TO[facility]ACCO [facility] Tobacco Use History This section includes a history of the smoking, or tobacco- related health factors, that were collected on or before the date of the Encounter. The data comes from the [facility] where the Encounter took place. Date/Time Smoking Status/Tobacco Use Comment Thiago sosa Oct 05, 2019 10:05 AM [place]-TOBACCO NEVER USED [place] [facility] Oct 20, 2018 12:28 PM INPT NO TOBACCO USE IN LAST 30 DAYS [facility] Sep 15, 2018 01:21 PM [place]-TOBACCO NEVER USED [place] [facility] Aug 11, 2017 08:54 AM LIFETIME NON-TOBACCO USER [facility] Jul 08, 2016 08:07 AM LIFETIME NON-TOBACCO USER [facility] May 09, 2015 02:31 PM LIFETIME NON-TOBACCO USER [facility] Apr 14, 2014 08:41 AM LIFETIME NON-TOBACCO USER [facility] Jan 06, 2007 08:51 AM LIFETIME NON-TOBACCO USER [facility] Encounter Notes: All associated encounter notes This section contains the clinical notes associated to the Encounter. 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 He sought evalua tion at [place] earlier this year to see if any further treatments would be recommended. A TTE was performed that revealed the presence of clots o n the aortic valve and patient was recommended to switch from DOAC to warfarin. He is interested in doing this. Goal INR range: 2-3 Perioperative interruption history: bridge if pr ocedure prior to 01/20/2020. Date started: 10/22/2019 Anticipated duration of therapy: lifelong - CHADS2-VASC = 5 (age x2, h/o CVA x2, HTN) - Risk of recurrent VTE (Chest 2016): ~ Provoked after surgery: 3% in 5 years ~ Unprovoked: 30% in 5 years (continue unless h igh bleed risk) - HAS-BLED = 2 (age, h/o CVA) DOAC Assessment (10/21/2019): Not a candidate due to failure with apixaban. Notes: Letters OK. OK to call on cell phone if n ot available at home phone. Care Coordination: Care Coordination: - Local Lab: [facility] Lab Direct P: [phone]; F: [phone] , F: [phone] *New CITC SO sent 06/13/21 *CITC labs valid: 03/27/21-09/23/21, new consult placed 06/13/21 SUBJECTIVE/OBJECTIVE: - History obtained from patient and his spouse jillian gregg at [phone]. No: Health changes: No: Pending procedures: No: Bleeding or thromboembolic signs/symptoms or falls: No: Medication changes/significant drug interact ions - Continues: APAP 500mg 1-2x/wk; not new & no r ecent changes No: Dietary changes: - Baseline vit K: ~1-2 serving of greens every week (usually broccoli) Yes: Alcohol/tobacco use: - Baseline ~1-2 drinks per week. No: Dosing discrepancies: - Stated dosing regimen accurately Warfarin dose: 7.5mg Th, 5mg all other days (37. 5mg/wk); AM Collection DT *INR mg in last 7 days 08/07/2021 local 1.38 37.5 07/23/2021 local 2.2 37.5 new dose 07/10/2021 local 3.4 40 06/25/2021 09:15 PLASM 3.4 42.5 06/11/2021 local 3.44 42.5 alcohol 04/30/2021 local 2.5 42.5 letter 03/25/2021 local 2.06 42.5 letter 02/18/2021 local 2.11 42.5 letter 01/22/2021 09:37 PLASM 2.1 42.5 letter 12/21/2020 [facility] 2.35 42.5 letter 12/06/2020 [facility] 1.67 ?? missed x2-3 doses 11/21/2020 local 2.1 42.5 letter 10/24/2020 07:45 PLASM 2.1 42.5 letter 10/02/2020 07:51 PLASM 3.0 42.5 letter 09/19/2020 [facility] 3.3 42.5 recent COVID, dec vit K & appt Other Recent Labs Collection DT Spec WBC HGB HCT PLT MCV NEUT LYMP HS 05/28/2021 09:15 BLOOD 4.25 14.2 41.6 216 99.3 5 6.1 25.4 02/28/2021 08:30 BLOOD 4.08 13.5 40.9 L 191 100. 0 52.5 28.4 01/22/2021 09:37 BLOOD 4.88 14.4 43.6 214 100.2 H 53.5 27.9 ASSESSMENT/PLAN: Subtherapeutic anticoagulation. Etiology unknown . Likely due to recent lower dose regimen. Will increase dose and recheck INR in 1.5 weeks. - Warfarin dose: INCREASE: 7.5mg TuTh, 5mg all other days (40mg/wk) - Next INR: 08/19/21 at local lab ([facility]) - Rx reviewed. Will update when dose stabilizes. - Patient denied needing a letter mailed. Time Spent: 20 min Patient Education of Treatment Plan: patient and his spouse indicates readiness to learn, verbalizes understanding, ag reement and satisfaction with the treatment plan. Denies further questions. /mustapha/ SALINAS REID, PharmD FRONT OFFICE SECRETARY Signed: 08/07/2021 15:04 Receipt Acknowledged By: 08/07/2021 15:44 /mustapha/ Luisito Ni PharmD. Pharmacist 08/07/2021 ADDENDUM STATUS: COMPLETED In area supervision Agree with trainee note with comments below. Nature of encounter: subtherapeutic INR; warfarin monitoring Clinical thinking, assessment and treatment plan : appropriate assesment & plan to inc dose at thi s time /mustapha/ Luisito Ni PharmD. Pharmacist Signed: 08/07/2021 15:45 08/12/2021 ADDENDUM STATUS: COMPLETED Patient called to report samson t he missed a dose of warfarin on 08/05 prior to the 08/07 blood draw. This likel y contributed to the subtherapeutic INR. Therefore, recommended that patient return to previously th erapeutic dose of 7.5mg on and 5mg all other days. Will still f/u next week to assess. Update to above: YES: Dosing discrepancies: - Missed dose on 08/05 Warfarin dose: 7.5mg Th, 5mg all other days (37. 5mg/wk); AM Collection DT *INR mg in last 7 days 08/07/2021 local 1.38 32.5 missed dose 07/23/2021 local 2.2 37.5 new dose 07/10/2021 local 3.4 40 06/25/2021 09:15 PLASM 3.4 42.5 06/11/2021 local 3.44 42.5 alcohol 04/30/2021 local 2.5 42.5 letter 03/25/2021 local 2.06 42.5 letter 02/18/2021 local 2.11 42.5 letter 01/22/2021 09:37 PLASM 2.1 42.5 letter 12/21/2020 local 2.35 42.5 letter 12/06/2020 local 1.67 ?? missed x2-3 doses 11/21/2020 local 2.1 42.5 letter 10/24/2020 07:45 PLASM 2.1 42.5 letter 10/02/2020 07:51 PLASM 3.0 42.5 letter 09/19/2020 local 3.3 42.5 recent bob GARCIA K & appt /es/ RUEL SPRING CLINICAL PHARMACIST Signed: 08/12/2021 09:39
--- OUTSIDE RECORDS SUMMARY | 2022-06-06 11:40 | XMS_ITS | Encounter Summary ---
:1945 Author Organization Department [facility] rs Address [address] [place] [address] Support Name Relationship Address Phone Arti CORONEL Unavailable [address] [place] [address] ADITYA MALIN Unavailable [address] [place] [id number] Insurance Providers: All historical and current Section [...] MEDICARE MEDICARE PART May 15, PART A [id number] 800 HOMER HUNTER (WNR) (M) A 2008 94A [phone] ,[place]LE MEDICARE MEDICARE PART May 15, PART B [id number] 800 HOMER HUNTER (WNR) (M) B 2008 94A [phone] ,ELLE Selected Encounter This section includes the information on record at [place] for the Encounter. Date/Time Encounter Type Encounter Reason Provider Source Description Jul 24, 2021 HC PRO PHONE TELEPHONE/MEDICIN ICD-10-CM Z51.81 NAOMI STORY 10:33 AM CALL 11-20 MIN E Encounter for A therapeutic drug level monitoring with Provider Comments: Encounter for therapeutic drug level monitoring IHE Encounter Template Text not used by [place] Assessments - Encounter Diagnoses This section includes the primary and secondary diagnoses documented for the Encounter. Date/Time Primary/Secondary Diagnosis Name Provider Source Diagnosis Jul 24, 2021 PRIMARY Encounter for LADAN ARRIOLA V A 10:33 AM therapeutic drug TI L HCS level monitoring Jul 24, 2021 SECONDARY half-way (current) LADAN ARRIOLA [place] 10:33 AM use of TI L HCS anticoagulants Jul 24, 2021 SECONDARY Unspecified atrial LADAN ARRIOLA [place] 10:33 AM fibrillation TI L HCS Plan of Treatment: Future Appointments (+ 6 months) and Future Tests (+/- 45 days) The Plan of Treatment section includes future care activities for the patient from all [place] treatmentfacilities. This section includes future appointments and future orders which are active, pending orscheduled.Future Appointments This section includes appointments that were scheduled to occur 6 months from the date of the Encounter, up to a maximum of 20 appointments. The data comes from all [place] treatment facilities. Appointment Date/Time Appointment Type Appointment Facili ty Name Aug 15, 2021 09:30 AM AMBULATORY - MEDICINE [facility] Aug 15, 2021 10:11 AM AMBULATORY - NEUROLOGY [facility] Sep 10, 2021 09:30 AM AMBULATORY - MEDICINE [facility] Sep 10, 2021 10:35 AM AMBULATORY - NEUROLOGY [facility] Oct 08, 2021 08:30 AM AMBULATORY - MEDICINE [facility] Oct 29, 2021 09:00 AM AMBULATORY - NONE [facility] Oct 29, 2021 09:15 AM AMBULATORY - NONE [facility] Oct 29, 2021 10:00 AM AMBULATORY - MEDICINE [facility] Oct 29, 2021 10:30 AM AMBULATORY - MEDICINE [facility] Nov 26, 2021 09:30 AM AMBULATORY - MEDICINE [facility] Nov 26, 2021 10:15 AM AMBULATORY - NONE [facility] Dec 18, 2021 10:30 AM AMBULATORY - NONE [facility] Dec 18, 2021 11:00 AM AMBULATORY - MEDICINE [facility] Dec 18, 2021 11:30 AM AM[facility]UL[facility]ORY - MEDICINE [facility] Dec 24, 2021 09:30 AM AMBULATORY - MEDICINE [facility] January 21, 2022 09:30 AM AMBULATORY - MEDICINE [facility] Lab Results: +/- 30 days of the encounter This section includes the Chemistry and Hematology Lab Results on record with [place] for the patient. Radiology Reports and Pathology Reports are provided separately, in subsequent sections.Lab Results This section contains the Chemistry/Hematology Results that were resulted 30 days before or 30 daysafter the date of the Encounter. Date/Time Source Result Type Result - Unit Interpretation Reference Range Comment Aug 15, 2021 [facility] COVID-19 AND FLU/RSV DIAG Sp ecimen Type: NASOPHARYNGEAL 10:10 AM PANEL(CEPHEID) Comment: Cepabieli d GeneXpert (618) Ordering Provid er: GLENN CHISHOLM Report Released Date/Time: Aug 15, 2021 10:11 AM Reporting Lab: [facility] [address] [facility] [id number] Performing Lab: [facility] [address] [facility] [id number] COVID-19 (CEPHEID) Not Detected Not Dete cted INFLUENZA A (PCR) Not Detected Not Detec rosalba INFLUENZA B (PCR) Not Detected Not Detec rosalba RSV (PCR) Not Detected Not Detected Jun 25, 2021 09:15 AM [facility] PT/INR(ANTICOAG) Speci men Type: PLASMA No comment enter ed. Ordering Provid er: NAOMI STORY Report Released Date/Time: Jun 13, 2021 11:17 AM Reporting Lab: [facility] [address] [facility] [id number] Performing Lab: [facility] [address] [facility] [id number] .INR 3.4 H 0.8-1.1 .PT 39.1 H 9.4-12.5 Social History: Smoking Status (Most current) and Tobacco Use (All prior to encounter date) This section includes the most current, and the historical, smoking and tobacco-related health factors from the [place] facility where the Encounter took place.Current Smoking Status This section includes the most current smoking, or tobacco-related health factor, from the [place] facility where the Encounter took place. Date/Time Current Smoking Status Comment Facility May 15, 2021 10:00 AM [place]-TOBACCO NEVER USED [place] [facility] Tobacco Use History This section includes a history of the smoking, or tobacco- related health factors, that were collected on or before the date of the Encounter. The data comes from the [place] facility where the Encounter took place. Date/Time Smoking Status/Tobacco Use Comment Thiago sosa Oct 05, 2019 10:05 AM [place]-TOBACCO NEVER USED [place] [facility] Oct 20, 2018 12:28 PM INPT NO TOBACCO USE IN LAST 30 DAYS [facility] Sep 15, 2018 01:21 PM [place]-TOBACCO NEVER USED [place] [facility] Aug 11, 2017 08:54 AM LIFETIME NON-TOBACCO USER [facility] Jul 08, 2016 08:07 AM LIFETIME NON-TOBACCO USER [facility] May 09, 2015 02:31 PM LIFETIME NON-TOBACCO USER [facility] Apr 14, 2014 08:41 AM LIFETIME NON-TOBACCO USER [facility] Jan 06, 2007 08:51 AM LIFETIME NON-TOBACCO USER [facility] Encounter Notes: All associated encounter notes This section contains the clinical notes associated to the Encounter. Date/Time Encounter Note(s) Provider Source Jul 24, 2021 10:34 AM PHARMACY OUTPATIENT MEDICATION MGT NOT E: LEONOR ARRIOLA [facility] LOCAL TITLE: PHARMACY ANTICOAGULATION CLINIC F/ U STANDARD TITLE: PHARMACY OUTPATIENT MEDICATION M GT NOTE DATE OF NOTE: JUL 24, 2021@10:34:16 ENTRY DATE: JUL 24, 2021@10:34:16 AUTHOR: LEONOR ARRIOLA EXP COSIGNER: URGENCY: STATUS: COMPLETED SUBJECT: Anticoag Indication: A-fib Secondary Indication: - 09/2019: diagnosed [...] He sees a another primary dr in [place], Dr Yancey once yearly but [place]. He sought evalua tion at [place] earlier this year to see if any [...] Care Coordination: Care Coordination: - Local Lab: [facility] Lab Direct P: [phone]; F: [phone] , F: [phone] *New CITC SO sent 06/13/21 *[facility] labs valid: 03/27/21-09/23/21, new consult placed 06/13/21 SUBJECTIVE/OBJECTIVE: - History obtained from patient's spouse today a t [phone]. No: Health changes: No: Pending procedures: No: Bleeding or thromboembolic signs/symptoms or falls: No: Medication changes/significant drug interact ions - Continues: APAP 500mg 1-2x/wk; not new & no r ecent changes No: Dietary changes: - Baseline vit K: ~1-2 serving of greens every week (usually broccoli) Yes: Alcohol/tobacco use: - Baseline ~1-2 drinks per week. No: Dosing discrepancies: - Clearly stated correct regimen Warfarin dose: 7.5mg Th, 5mg all other days (37. 5mg/wk); AM Collection DT Spec *INR mg in last 7 days 07/23/2021 local 2.2 37.5 new dose 07/10/2021 [...] 10/02/2020 07:51 PLASM 3.0 42.5 letter 09/19/2020 [facility] 3.3 42.5 recent COVID, dec vit K & appt Other Recent Labs Collection DT Spec WBC HGB HCT PLT MCV NEUT LYMP HS 02/28/2021 08:30 BLOOD 4.08 13.5 40.9 L 191 100. 0 52.5 28.4 01/22/2021 09:37 BLOOD 4.88 14.4 43.6 214 100.2 H 53.5 27.9 12/25/2020 07:43 BLOOD 4.99 14.6 43.7 192 98.9 5 0.5 31.7 10/24/2020 07:45 BLOOD 5.09 14.3 43.3 233 99.5 4 6.2 32.4 10/02/2020 07:51 BLOOD 4.74 13.7 41.0 211 98.1 4 9.0 31.6 09/04/2020 12:39 BLOOD 4.27 14.5 44.0 218 99.3 6 0.8 19.7 ASSESSMENT/PLAN: Therapeutic anticoagulation. Unstable pattern re cently. Recheck in 2 weeks. - Warfarin dose: Continue: 7.5mg Th, 5mg all other days (37.5mg/wk) - Next INR: 08/06/21 at local lab w/ tele/letter f/u - Rx assessed for adequate refills Time spent: 15 min Education on Treatment Plan: Spouse indicates re adiness to learn, verbalizes understanding, agreement and satisfac tion with the treatment plan. Denies further questions. /mustapha/ LEONOR ARRIOLA BANQUET COORDINATOR Signed: 07/24/2021 10:49
--- OUTSIDE RECORDS SUMMARY | 2022-06-06 11:40 | XMS_ITS | Encounter Summary ---
:1945 Author Organization Department of [facility] rs Address [address] [place] [address] Support Name Relationship Address Phone Arti CORONEL Unavailable [address] [place] [address] ADITYA MALIN Unavailable [address] [place] [phone] Insurance Providers: All historical and current Section [...] MEDICARE MEDICARE PART May 15, PART A [id number] 800 HOMER HUNTER (WNR) (M) A 2008 94A [phone] ,ELLE MEDICARE MEDICARE PART May 15, PART B [id number] 800 HOMER HUNTER (WNR) (M) B 2008 94A [phone] ,ELLE Selected Encounter This section includes the information on record at [place] for the Encounter. Date/Time Encounter Type Encounter Description Reason Provider Source Aug 07, 2021 12:00 Outpatient Encounter EVENT (HISTORICAL) AM IHE Encounter Template Text not used by [place] Plan of Treatment: Future Appointments (+ 6 months) and Future Tests (+/- 45 days) The Plan of Treatment section includes future care activities for the patient from all [place] treatmentfacilities. This section includes future appointments and future orders which are active, pending orscheduled.Future Appointments This section includes appointments that were scheduled to occur 6 months from the date of the Encounter, up to a maximum of 20 appointments. The data comes from all [place] treatment facilities. Appointment Date/Time Appointment Type Appointment Facili ty Name Aug 15, 2021 09:30 AM AMBULATORY - MEDICINE [facility] CS Aug 15, 2021 10:11 AM AMBULATORY - NEUROLOGY [facility] Sep 10, 2021 09:30 AM AMBULATORY - MEDICINE [facility] CS Sep 10, 2021 10:35 AM AMBULATORY - NEUROLOGY [facility] Oct 08, 2021 08:30 AM AMBULATORY - MEDICINE [facility] CS Oct 29, 2021 09:00 AM AMBULATORY - NONE [facility] Oct 29, 2021 09:15 AM AMBULATORY - NONE [facility] Oct 29, 2021 10:00 AM AMBULATORY - MEDICINE [facility] Oct 29, 2021 10:30 AM AMBULATORY - MEDICINE [facility] Nov 26, 2021 09:30 AM AMBULATORY - MEDICINE [facility] Nov 26, 2021 10:15 AM AMBULATORY - NONE [facility] Dec 18, 2021 10:30 AM AMBULATORY - NONE [facility] Dec 18, 2021 11:00 AM AMBULATORY - MEDICINE [facility] Dec 18, 2021 11:30 AM AMBULATORY - MEDICINE [facility] Dec 24, 2021 09:30 AM AMBULATORY - MEDICINE [facility] January 21, 2022 09:30 AM AMBULATORY - MEDICINE [facility] Lab Results: +/- 30 days of the encounter This section includes the Chemistry and Hematology Lab Results on record with [facility] for the patient. Radiology Reports and Pathology Reports are provided separately, in subsequent sections.Lab Results This section contains the Chemistry/Hematology Results that were resulted 30 days before or 30 daysafter the date of the Encounter. Date/Time Source Result Type Result - Unit Interpretation Reference Range Comment Aug 15, 2021 [facility] COVID-19 AND FLU/RSV DIAG Sp ecimen Type: NASOPHARYNGEAL 10:10 AM PANEL(CEPHEID) Comment: Alcides garibay GeneXpert (618) Ordering Provid er: GLENN CHISHOLM Report Released Date/Time: Aug 15, 2021 10:11 AM Reporting Lab: [facility] [address] [facility] [address] [facility] [facility] [address] Performing Lab: [facility] [facility] [address] COVID-19 (CEPHEID) Not Detected Not Dete cted INFLUENZA A (PCR) Not Detected Not Detec rosalba INFLUENZA B (PCR) Not Detected Not Detec rosalba RSV (PCR) Not Detected Not Detected Social History: Smoking Status (Most current) and Tobacco Use (All prior to encounter date) This section includes the most current, and the historical, smoking and tobacco-related health factors from the [place] facility where the Encounter took place.Current Smoking Status This section includes the most current smoking, or tobacco-related health factor, from the [place] facility where the Encounter took place. Date/Time Current Smoking Status Comment Facility May 15, 2021 10:00 AM VA-TOBACCO NEVER USED [place] [facility] Tobacco Use History This section includes a history of the smoking, or tobacco- related health factors, that were collected on or before the date of the Encounter. The data comes from the [place] facility where the Encounter took place. Date/Time Smoking Status/Tobacco Use Comment [facility] Oct 05, 2019 10:05 AM VA-TOBACCO NEVER USED [place] [facility] Oct 20, 2018 12:28 PM INPT NO TOBACCO USE IN LAST 30 DAYS [facility] Sep 15, 2018 01:21 PM VA-TOBACCO NEVER USED [place] [facility] Aug 11, 2017 08:54 AM LIFETIME NON-TOBACCO USER [facility] Jul 08, 2016 08:07 AM LIFETIME NON-TOBACCO USER [facility] May 09, 2015 02:31 PM LIFETIME NON-TOBACCO USER [facility] Apr 14, 2014 08:41 AM LIFETIME NON-TOBACCO USER [facility] Jan 06, 2007 08:51 AM LIFETIME NON-TOBACCO USER [facility]
--- OUTSIDE RECORDS SUMMARY | 2022-06-06 11:40 | XMS_ITS | Encounter Summary ---
:1945 Author Organization Department [facility] Address [address] [place] [id number] Support Name Relationship Address Phone Arti CORONEL Unavailable [address] [place] [address] ADITYA MALIN Unavailable [address] [phone] [place] [address] Insurance Providers: All historical and current Section [...] MEDICARE MEDICARE PART May 15, PART A [id number] 800 HOMER HUNTER (WNR) (M) A 2008 94G [phone] ,ELLE MEDICARE MEDICARE PART May 15, PART B [id number] 800 HOMER HUNTER (WNR) (M) B 2008 [id number] [id number] ,ELLE Selected Encounter This section includes the information on record at [place] for the Encounter. Date/Time Encounter Type Encounter Description Reason Provider Source Jul 23, 2021 01:25 Outpatient Encounter CLINICAL PHARMACY PM IHE Encounter Template Text not used by [place] Plan of Treatment: Future Appointments (+ 6 months) and Future Tests (+/- 45 days) The Plan of Treatment section includes future care activities for the patient from all [place] treatmentfacilities. This section includes future appointments and future orders which are active, pending orscheduled.Future Appointments This section includes appointments that were scheduled to occur 6 months from the date of the Encounter, up to a maximum of 20 appointments. The data comes from all [place] treatment facilities. Appointment Date/Time Appointment Type Appointment Facili ty Name Aug 15, 2021 09:30 AM AMBULATORY - MEDICINE [facility] Aug 15, 2021 10:11 AM AMBULATORY - NEUROLOGY [facility] Sep 10, 2021 09:30 AM AMBULATORY - MEDICINE [facility] CS Sep 10, 2021 10:35 AM AMBULATORY - NEUROLOGY [facility] Oct 08, 2021 08:30 AM AMBULATORY - MEDICINE [facility] CS Oct 29, 2021 09:00 AM AMBULATORY - NONE [facility] Oct 29, 2021 09:15 AM AMBULATORY - NONE [facility] Oct 29, 2021 10:00 AM AMBULATORY - MEDICINE [facility] Oct 29, 2021 10:30 AM AMBULATORY - MEDICINE [facility] Nov 26, 2021 09:30 AM AMBULATORY - MEDICINE [facility] Nov 26, 2021 10:15 AM AMBULATORY - NONE [facility] Dec 18, 2021 10:30 AM AMBULATORY - NONE [facility] Dec 18, 2021 11:00 AM AMBULATORY - MEDICINE [facility] CS Dec 18, 2021 11:30 AM AMBULATORY - MEDICINE [facility] Dec 24, 2021 09:30 AM AMBULATORY - MEDICINE [facility] Lab Results: +/- 30 days of the encounter This section includes the Chemistry and Hematology Lab Results on record with [place] for the patient. Radiology Reports and Pathology Reports are provided separately, in subsequent sections.Lab Results This section contains the Chemistry/Hematology Results that were resulted 30 days before or 30 daysafter the date of the Encounter. Date/Time Source Result Type Result - Unit Interpretation Reference Range Comment Aug 15, 2021 [facility] COVID-19 AND FLU/RSV DIAG Sp ecimen Type: NASOPHARYNGEAL 10:10 AM PANEL(CEPHEID) Comment: Cepda garibay GeneXpert (618) Ordering Provid er: GLENN CHISHOLM Report Released Date/Time: Aug 15, 2021 10:11 AM Reporting Lab: [facility] [address] [facility] [address] Performing Lab: [facility] [address] [facility] [address] COVID-19 (CEPHEID) Not Detected Not Dete cted INFLUENZA A (PCR) Not Detected Not Detec rosalba INFLUENZA B (PCR) Not Detected Not Detec rosalba RSV (PCR) Not Detected Not Detected Jun 25, 2021 09:15 AM [facility] PT/INR(ANTICOAG) Speci men Type: PLASMA No comment enter ed. Ordering Provid er: NAOMI STORY Report Released Date/Time: Jun 13, 2021 11:17 AM Reporting Lab: [facility] [address] [facility] [address] Performing Lab: [facility] [address] [facility] [address] .INR 3.4 H 0.8-1.1 .PT 39.1 H 9.4-12.5 Social History: Smoking Status (Most current) and Tobacco Use (All prior to encounter date) This section includes the most current, and the historical, smoking and tobacco-related health factors from the [facility] where the Encounter took place.Current Smoking Status This section includes the most current smoking, or tobacco-related health factor, from the [place] facility where the Encounter took place. Date/Time Current Smoking Status Comment Facility May 15, 2021 10:00 AM [facility] [place] [facility] Tobacco Use History This section includes a history of the smoking, or tobacco- related health factors, that were collected on or before the date of the Encounter. The data comes from the [facility] where the Encounter took place. Date/Time Smoking Status/Tobacco Use Comment [facility] Oct 05, 2019 10:05 AM VA-TOBACCO NEVER USED [place] [facility] Oct 20, 2018 12:28 PM INPT NO TOBACCO USE IN LAST 30 DAYS [facility] Sep 15, 2018 01:21 PM [place]-TOBACCO NEVER USED [place] [facility] Aug 11, 2017 08:54 AM LIFETIME NON-TOBACCO USER [facility] Jul 08, 2016 08:07 AM LIFETIME NON-TOBACCO USER [facility] May 09, 2015 02:31 PM LIFETIME NON-TOBACCO USER [facility] Apr 14, 2014 08:41 AM LIFETIME NON-TOBACCO USER [facility] Jan 06, 2007 08:51 AM LIFETIME NON-TOBACCO USER [facility] Encounter Notes: All associated encounter notes This section contains the clinical notes associated to the Encounter. Date/Time Encounter Note(s) Provider Source Jul 23, 2021 01:25 PM PHARMACY NOTE: HANNA YOU IS [facility] LOCAL TITLE: ANTICOAG ENTRY OF OUTSIDE LABS STANDARD TITLE: PHARMACY NOTE DATE OF NOTE: JUL 23, 2021@13:25 ENTRY DATE: JUL 23, 2021@13:25:26 AUTHOR: AVELINO,HANNA J EXP COSIGNER: URGENCY: STATUS: COMPLETED INR: Date: July 23, 2021 Results: 2.20 Location: [facility] Lab /es/ HANNA YOU MEDICAL SUPPORT ASSISTAT Signed: 07/23/2021 13:26 Receipt Acknowledged By: 07/23/2021 13:27 /mustapha/ LEONOR ARRIOLA [employer]PER[employer]OR
--- OUTSIDE RECORDS SUMMARY | 2022-06-06 11:40 | XMS_ITS | Encounter Summary ---
:1945 Author Organization Department [facility] rs Address [address] [place] [address] Support Name Relationship Address Phone Arti CORONEL Unavailable [address] [place] [address] ADITYA MALIN Unavailable [address] [place] [phone] Insurance Providers: All historical and current Section [...] [place]ley MEDICARE MEDICARE PART May 15, PART B [id number] 800 HOMER Paige ELSA (WNR) (M) B 2008 94A [phone] ,ELLE MEDICARE MEDICARE PART May 15, PART A [id number] 800 SHAYMOYAIDAN Paige DEL VALLEEDGAR (WNR) (M) A 2008 94A [phone] ,ELLE Selected Encounter This section includes the information on record at [place] for the Encounter. 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 This section includes future appointments and future orders which are active, pending orscheduled.Future Appointments This section includes appointments that were scheduled to occur 6 months from the date of the Encounter, up to a maximum of 20 appointments. The data comes from all [place] treatment facilities. Appointment Date/Time Appointment Type Appointment Facili ty Name Aug 15, 2021 09:30 AM AMBULATORY - MEDICINE [facility] Aug 15, 2021 10:11 AM AMBULATORY - NEUROLOGY [facility] Sep 10, 2021 09:30 AM AMBULATORY - MEDICINE [facility] Sep 10, 2021 10:35 AM AMBULATORY - NEUROLOGY [facility] Oct 08, 2021 08:30 AM AMBULATORY MEDICINE [facility] Oct 29, 2021 09:00 AM AMBULATORY NONE [facility] Oct 29, 2021 09:15 AM AMBULATORY NONE [facility] Oct 29, 2021 10:00 AM AMBULATORY MEDICINE [facility] Oct 29, 2021 10:30 AM AMBULATORY MEDICINE [facility] Nov 26, 2021 09:30 AM AMBULATORY MEDICINE [facility] Nov 26, 2021 10:15 AM AMBULATORY - NONE [facility] Dec 18, 2021 10:30 AM AMBULATORY NONE [facility] Dec 18, 2021 11:00 AM AMBULATORY MEDICINE [facility] Dec 18, 2021 11:30 AM AMBULATORY MEDICINE [facility] Dec 24, 2021 09:30 AM AMBULATORY MEDICINE [facility] Lab Results: +/- 30 days of the encounter This section includes the Chemistry and Hematology Lab Results on record with [place] for the patient. Radiology Reports and Pathology Reports are provided separately, in subsequent sections.Lab Results This section contains the Chemistry/Hematology Results that were resulted 30 days before or 30 daysafter the date of the Encounter. Date/Time Source Result Type Result - Unit Interpretation Reference Range Comment Aug 15, 2021 [facility] COVID-19 AND FLU/RSV DIAG Sp ecimen Type: NASOPHARYNGEAL 10:10 AM PANEL(CEPHEID) Comment: Alcides RogersXpert (618) Ordering Provid er: GLENN CHISHOLM Report Released Date/Time: Aug 15, 2021 10:11 AM Reporting Lab: [facility] [address] [place] [facility] [address] Performing Lab: [facility] [address] [facility] [address] COVID-19 (CEPHEID) Not Detected Not Dete cted INFLUENZA A (PCR) Not Detected Not Detec rosalba INFLUENZA B (PCR) Not Detected Not Detec rosalba RSV (PCR) Not Detected Not Detected Jun 25, 2021 09:15 AM [facility] PT/INR(ANTICOAG) Speci men Type: PLASMA No comment enter ed. Ordering Provid er: NAOMI STORY Report Released Date/Time: Jun 13, 2021 11:17 AM Reporting Lab: [facility] [address] [facility] [address] Performing Lab: [facility] [address] .INR 3.4 H 0.8-1.1 .PT 39.1 H 9.4-12.5 Social History: Smoking Status (Most current) and Tobacco Use (All prior to encounter date) This section includes the most current, and the historical, smoking and tobacco-related health factors from the [facility] where the Encounter took place.Current Smoking Status This section includes the most current smoking, or tobacco-related health factor, from the [place] facility where the Encounter took place. Date/Time Current Smoking Status Comment Facility May 15, 2021 10:00 AM VA-TOBACCO NEVER USED [place] [facility] Tobacco Use History This section includes a history of the smoking, or tobacco- related health factors, that were collected on or before the date of the Encounter. The data comes from the [place] facility where the Encounter took place. Date/Time Smoking Status/Tobacco Use Comment [facility] Oct 05, 2019 10:05 AM [place]-TOBACCO NEVER USED [place] [facility] Oct 20, 2018 12:28 PM INPT NO TOBACCO USE IN LAST 30 DAYS [facility] Sep 15, 2018 01:21 PM [place]-TOBACCO NEVER USED [place] [facility] Aug 11, 2017 08:54 AM LIFETIME NON-TOBACCO USER [facility] Jul 08, 2016 08:07 AM LIFETIME NON-TOBACCO USER [facility] May 09, 2015 02:31 PM LIFETIME NON-TOBACCO USER [facility] Apr 14, 2014 08:41 AM LIFETIME NON-TOBACCO USER [facility] Jan 06, 2007 08:51 AM LIFETIME NON-TOBACCO USER [facility] Encounter Notes: All associated encounter notes This section contains the clinical notes associated to the Encounter. Date/Time Encounter Note(s) Provider Source Jul 23, 2021 11:50 AM HEMATOLOGY AND ONCOLOGY NURSING OUTPAT IENT NOTE: CRISTA HALL [facility] LOCAL TITLE: HEME/ONC PROCEDURE CLINIC NURSING NOTE STANDARD TITLE: HEMATOLOGY AND ONCOLOGY NURSING OUTPATIENT NOTE DATE OF NOTE: JUL 23, 2021@11:50 ENTRY DATE: JUL 23, 2021@11:50:13 AUTHOR: CRISTA HALL EXP COSIGNER: URGENCY: STATUS: COMPLETED Date of Service: Jul Diagnosis: Carcinoid Tumor Vital Signs: Height: 71.5 in [181.6 cm] ( 021 10:14) Weight: 215.2 lb [97.8 kg] (06/25/2021 10:07) Body Surface Area: 2.22 Temperature: 97.9 F [36.6 C] (06/25/2021 10:07) Blood Pressure (BP): 101/68 (06/25/2021 10:07) Pulse: 93 (06/25/2021 10:07) Respiration: 16 (06/25/2021 10:07) Physician: Dr. Starr [phone] Allergies: DIAL SOAP (Mar 25, 2007) NAPROXEN (February 05, 2011) Labs: CBC + Diff: WBC 4.25 (05/28/21) ABS NEUT 2.38 (05/28/21) HGB 14.2 (05/28/21) PLT 216 (05/28/21) Chemistry: SODIUM 137 (05/28/21) POTASSIUM 4.0 (05/28/21) CALCIUM 9.3 (05/28/21) MAGNESIUM 2.1 (05/28/21) CREATININE 0.9 (05/28/21) ALK PHOSPHATASE 72 (05/28/21) SGPT 17 (05/28/21) SGOT 17 (05/28/21) BILIRUBIN, TOTAL 0.8 (05/28/21) Tumor Markers: CEA____ CA 125 TUMOR MARKER____ CA 19-9____ PSA - NONE FOUND Non chemo procedures SQ/IM Medication: Octreotide LAR IM Dosage: 20 mg Site: Right glut Time: 1050 Problems/Complications: Nausea/Vomiting: No Hemorrhage: No Diarrhea: No Infection: No Fatigue: No Neuropathy:No Rash: No Mucositis: No Patient Response/Status: Injection given IM in t he right glut and tolerated without complaints. Site covered with a bandaid. Patient discharged ambulatory to home. DISCHARGED TO: Home at 1055 /es/ Crista Hall RN, BSN,OCN REGISTERED NURSE Signed: 07/23/2021 12:57
--- OUTSIDE RECORDS SUMMARY | 2022-06-06 11:40 | XMS_ITS | Encounter Summary ---
:[address] [facility] Address [address] [place] [id number] Support Name Relationship Address Phone Arti CORONEL Unavailable [address] [place] [address] ADITYA MALIN Unavailable 0 GUANACO HUNG SHAWANDA [phone] [place] [phone] Insurance Providers: All historical and current Section [...] MEDICARE MEDICARE PART May 15, PART A [id number] 800 HOMER HUNTER (WNR) (M) A 2008 [id number] [phone] ,ELLE MEDICARE MEDICARE PART May 15, PART B [id number] 800 HOMER HUNTER (WNR) (M) B 2008 [id number] ,ELLE Selected Encounter This section includes the information on record at [place] for the Encounter. Date/Time Encounter Type Encounter Description Reason Provider Source Aug 07, 2021 11:13 Outpatient Encounter CLINICAL PHARMACY AM IHE Encounter Template Text not used by [place] Plan of Treatment: Future Appointments (+ 6 months) and Future Tests (+/- 45 days) The Plan of Treatment section includes future care activities for the patient from all [place] treatmentfacilities. This section includes future appointments and future orders which are active, pending orscheduled.Future Appointments This section includes appointments that were scheduled to occur 6 months from the date of the Encounter, up to a maximum of 20 appointments. The data comes from all [place] treatment facilities. Appointment Date/Time Appointment Type Appointment Facili ty Name Aug 15, 2021 09:30 AM AMBULATORY - MEDICINE [facility] Aug 15, 2021 10:11 AM AMBULATORY - NEUROLOGY [facility] Sep 10, 2021 09:30 AM AMBULATORY - MEDICINE [facility] Sep 10, 2021 10:35 AM AMBULATORY - NEUROLOGY [facility] Oct 08, 2021 08:30 AM AMBULATORY - MEDICINE [facility] Oct 29, 2021 09:00 AM AMBULATORY - NONE [facility] Oct 29, 2021 09:15 AM AMBULATORY - NONE [facility] Oct 29, 2021 10:00 AM AMBULATORY - MEDICINE [facility] Oct 29, 2021 10:30 AM AMBULATORY - MEDICINE [facility] Nov 26, 2021 09:30 AM AMBULATORY - MEDICINE [facility] Nov 26, 2021 10:15 AM AMBULATORY - NONE [facility] Dec 18, 2021 10:30 AM AMBULATORY - NONE [facility] Dec 18, 2021 11:00 AM AMBULATORY - MEDICINE [facility] Dec 18, 2021 11:30 AM AMBULATORY - MEDICINE [facility] Dec 24, 2021 09:30 AM AMBULATORY - MEDICINE [facility] January 21, 2022 09:30 AM AMBULATORY - MEDICINE [facility] Lab Results: +/- 30 days of the encounter This section includes the Chemistry and Hematology Lab Results on record with [place] for the patient. Radiology Reports and Pathology Reports are provided separately, in subsequent sections.Lab Results This section contains the Chemistry/Hematology Results that were resulted 30 days before or 30 daysafter the date of the Encounter. Date/Time Source Result Type Result - Unit Interpretation Reference Range Comment Aug 15, 2021 [facility] COVID-19 AND FLU/RSV DIAG Sp ecimen Type: NASOPHARYNGEAL 10:10 AM PANEL(CEPHEID) Comment: Alcides garibay GeneXpert ([id number]) Ordering Provid er: GLENN CHISHOLM Report Released Date/Time: Aug 15, 2021 10:11 AM Reporting Lab: [facility] ISI METZGER [facility] [id number] Performing Lab: [facility] [facility] [id number] COVID-19 (CEPHEID) Not Detected Not Dete cted INFLUENZA A (PCR) Not Detected Not Detec rosalba INFLUENZA B (PCR) Not Detected Not Detec rosalba RSV (PCR) Not Detected Not Detected Social History: Smoking Status (Most current) and Tobacco Use (All prior to encounter date) This section includes the most current, and the historical, smoking and tobacco-related health factors from the [facility] where the Encounter took place.Current Smoking Status This section includes the most current smoking, or tobacco-related health factor, from the [facility] where the Encounter took place. Date/Time Current Smoking Status Comment Facility May 15, 2021 10:00 AM [place]TOBACCO NEVER USED [place] [facility] Tobacco Use History This section includes a history of the smoking, or tobacco- related health factors, that were collected on or before the date of the Encounter. The data comes from the [facility] where the Encounter took place. Date/Time Smoking Status/Tobacco Use Comment [facility] Oct 05, 2019 10:05 AM [place]-TOBACCO NEVER USED [place] [facility] Oct 20, 2018 12:28 PM INPT NO TOBACCO USE IN LAST 30 DAYS [facility] Sep 15, 2018 01:21 PM VA-TOBACCO NEVER USED [place] [facility] Aug 11, 2017 08:54 AM LIFETIME NON-TOBACCO USER [facility] Jul 08, 2016 08:07 AM LIFETIME NON-TOBACCO USER [facility] May 09, 2015 02:31 PM LIFETIME NON-TOBACCO USER [facility] Apr 14, 2014 08:41 AM LIFETIME NON-TOBACCO USER [facility] Jan 06, 2007 08:51 AM LIFETIME NON-TOBACCO USER [facility] Encounter Notes: All associated encounter notes This section contains the clinical notes associated to the Encounter. Date/Time Encounter Note(s) Provider Source Aug 07, 2021 11:16 AM PHARMACY NOTE: HANNA YOU IS [facility] LOCAL TITLE: ANTICOAG ENTRY OF OUTSIDE LABS STANDARD TITLE: PHARMACY NOTE DATE OF NOTE: AUG 07, 2021@11:16 ENTRY DATE: AUG 07, 2021@11:16:26 AUTHOR: HANNA YOU EXP COSIGNER: URGENCY: STATUS: COMPLETED INR: Date: August 07, 2021 Results: 1.38 Location: [facility] Lab /mustapha/ HANNA YOU MEDICAL SUPPORT ASSISTAT Signed: 08/07/2021 11:18 Receipt Acknowledged By: 08/07/2021 11:23 /mustapha/ LEONOR ARRIOLA SQL SSRS SSIS DEVELOPER
--- OUTSIDE RECORDS SUMMARY | 2022-06-06 11:41 | XMS_ITS | Encounter Summary ---
:1945 Author Organization Department [facility] Address [address] [place] [id number] Support Name Relationship Address Phone Arti CORONEL Unavailable [address] [place] [address] ADITYA MALIN Unavailable [address] [place] [phone] Insurance Providers: All historical and current Section [...] MEDICARE MEDICARE PART May 15, PART A [id number] 800 HOMER HUNTER (WNR) (M) A 2008 94F [phone] ,ELLE MEDICARE MEDICARE PART May 15, PART B [id number] 800 HOMER HUNTER (WNR) (M) B 2008 94A [phone] ,ELLE Selected Encounter This section includes the information on record at [place] for the Encounter. Date/Time Encounter Type Encounter Description Reason Provider Source Jul 11, 2021 01:47 Outpatient Encounter CLINICAL PHARMACY PM IHE Encounter Template Text not used by [place] Plan of Treatment: Future Appointments (+ 6 months) and Future Tests (+/- 45 days) The Plan of Treatment section includes future care activities for the patient from all [place] treatmentfacilities. This section includes future appointments and future orders which are active, pending orscheduled.Future Appointments This section includes appointments that were scheduled to occur 6 months from the date of the Encounter, up to a maximum of 20 appointments. The data comes from all [place] treatment facilities. Appointment Date/Time Appointment Type Appointment Facili ty Name Jul 23, 2021 09:30 AM AMBULATORY - MEDICINE [facility] Aug 15, 2021 09:30 AM AMBULATORY - MEDICINE [facility] Aug 15, 2021 10:11 AM AMBULATORY - NEUROLOGY [facility] Sep 10, 2021 09:30 AM AMBULATORY - MEDICINE [facility] Sep 10, 2021 10:35 AM AMBULATORY - NEUROLOGY [facility] Oct 08, 2021 08:30 AM AMBULATORY - MEDICINE [facility] Oct 29, 2021 09:00 AM AMBULATORY - NONE [facility] Oct 29, 2021 09:15 AM AMBULATORY - NONE [facility] Oct 29, 2021 10:00 AM AMBULATORY - MEDICINE [facility] Oct 29, 2021 10:30 AM AMBULATORY - MEDICINE [facility] Nov 26, 2021 09:30 AM AMBULATORY - MEDICINE [facility] Nov 26, 2021 10:15 AM AMBULATORY - NONE [facility] Dec 18, 2021 10:30 AM AMBULATORY - NONE [facility] Dec 18, 2021 11:00 AM AMBULATORY - MEDICINE [facility] Dec 18, 2021 11:30 AM AMBULATORY - MEDICINE [facility] Dec 24, 2021 09:30 AM AMBULATORY - MEDICINE [facility] Lab Results: +/- 30 days of the encounter This section includes the Chemistry and Hematology Lab Results on record with [place] for the patient. Radiology Reports and Pathology Reports are provided separately, in subsequent sections.Lab Results This section contains the Chemistry/Hematology Results that were resulted 30 days before or 30 daysafter the date of the Encounter. Date/Time Source Result Type Result - Unit Interpretation Reference Range Comment Jun 25, 2021 09:[address] [facility] PT/INR(ANTICOAG) Speci men Type: PLASMA No comment enter ed. Ordering Provid er: NAOMI STORY Report Released Date/Time: Jun 13, 2021 11:17 AM Reporting Lab: [facility] [id number] Performing Lab: [facility] [id number] .INR 3.4 H 0.8-1.1 .PT 39.1 H 9.4-12.5 Social History: Smoking Status (Most current) and Tobacco Use (All prior to encounter date) This section includes the most current, and the historical, smoking and tobacco-related health factors from the [place] facility where the Encounter took place.Current Smoking Status This section includes the most current smoking, or tobacco-related health factor, from the [facility] where the Encounter took place. Date/Time Current Smoking Status Comment Facility May 15, 2021 10:00 AM [place]-TOBACCO NEVER USED [place] [facility] Tobacco Use History This section includes a history of the smoking, or tobacco- related health factors, that were collected on or before the date of the Encounter. The data comes from the [facility] where the Encounter took place. Date/Time Smoking Status/Tobacco Use Comment [facility] Oct 05, 2019 10:05 AM VA-TOBACCO NEVER USED [place] [facility] Oct 20, 2018 12:28 PM INPT NO TOBACCO USE IN LAST [address] [facility] Sep 15, 2018 01:21 PM VA-TOBACCO NEVER USED [place] [facility] Aug 11, 2017 08:54 AM LIFETIME NON-TOBACCO USER [facility] Jul 08, 2016 08:07 AM LIFETIME NON-TOBACCO USER [facility] May 09, 2015 02:31 PM LIFETIME NON-TOBACCO USER [facility] Apr 14, 2014 08:41 AM LIFETIME NON-TOBACCO USER [facility] Jan 06, 2007 08:51 AM LIFETIME NON-TOBACCO USER [facility] Encounter Notes: All associated encounter notes This section contains the clinical notes associated to the Encounter. Date/Time Encounter Note(s) Provider Source Jul 11, 2021 01:47 PM PHARMACY NOTE: HANNA YOU IS [facility] LOCAL TITLE: ANTICOAG ENTRY OF OUTSIDE LABS STANDARD TITLE: PHARMACY NOTE DATE OF NOTE: JUL 11, 2021@13:47 ENTRY DATE: JUL 11, 2021@13:47:19 AUTHOR: HANNA YOU EXP COSIGNER: URGENCY: STATUS: COMPLETED INR: Date: July 10, 2021 Results: 3.40 Location: [facility] Lab /mustapha/ HANNA YOU MEDICAL SUPPORT ASSISTAT Signed: 07/11/2021 13:48 Receipt Acknowledged By: 07/11/2021 13:49 /mustapha/ LEONOR ARRIOLA CARBON ACCOUNTANT
--- OUTSIDE RECORDS SUMMARY | 2022-06-06 11:41 | XMS_ITS | Encounter Summary ---
:1945 Author Organization Department of [facility] Address [address] [place] [address] Support Name Relationship Address Phone Arti CORONEL Unavailable [address] [place] [address] ADITYA MALIN Unavailable [address] [place] [phone] Insurance Providers: All historical and current Section [...] MEDICARE MEDICARE PART May 15, PART A [id number] 800 HOMER HUNTER (WNR) (M) A 2008 94A [phone] ,ELLE MEDICARE MEDICARE PART May 15, PART B [id number] 800 HOM[address] HUNTER (WNR) (M) B 2008 94A [phone] ,ELLE Selected Encounter This section includes the information on record at [place] for the Encounter. Date/Time Encounter Type Encounter Description Reason Provider Source Jul 23, 2021 12:00 Outpatient Encounter EVENT (HISTORICAL) AM IHE Encounter Template Text not used by [place] Plan of Treatment: Future Appointments (+ 6 months) and Future Tests (+/- 45 days) The Plan of Treatment section includes future care activities for the patient from all [place] treatmentfacilities. This section includes future appointments and future orders which are active, pending orscheduled.Future Appointments This section includes appointments that were scheduled to occur 6 months from the date of the Encounter, up to a maximum of 20 appointments. The data comes from all [place] treatment facilities. Appointment Date/Time Appointment Type Appointment Facili ty Name Aug 15, 2021 09:30 AM AMBULATORY - MEDICINE [facility] Aug 15, 2021 10:11 AM AMBULATORY - NEUROLOGY [facility] Sep 10, 2021 09:30 AM AMBULATORY - MEDICINE [facility] Sep 10, 2021 10:35 AM AMBULATORY - NEUROLOGY [facility] Oct 08, 2021 08:30 AM AMBULATORY - MEDICINE [facility] Oct 29, 2021 09:00 AM AMBULATORY - NONE [facility] Oct 29, 2021 09:15 AM AMBULATORY - NONE [facility] Oct 29, 2021 10:00 AM AMBULATORY - MEDICINE [facility] Oct 29, 2021 10:30 AM AMBULATORY - MEDICINE [facility] Nov 26, 2021 09:30 AM AMBULATORY - MEDICINE [facility] Nov 26, 2021 10:15 AM AMBULATORY - NONE [facility] Dec 18, 2021 10:30 AM AMBULATORY - NONE [facility] Dec 18, 2021 11:00 AM AMBULATORY - MEDICINE [facility] Dec 18, 2021 11:30 AM AMBULATORY - MEDICINE [facility] Dec 24, 2021 09:30 AM AMBULATORY - MEDICINE [facility] Lab Results: +/- 30 days of the encounter This section includes the Chemistry and Hematology Lab Results on record with [place] for the patient. Radiology Reports and Pathology Reports are provided separately, in subsequent sections.Lab Results This section contains the Chemistry/Hematology Results that were resulted 30 days before or 30 daysafter the date of the Encounter. Date/Time Source Result Type Result - Unit Interpretation Reference Range Comment Aug 15, 2021 [facility] COVID-19 AND FLU/RSV DIAG Sp ecimen Type: NASOPHARYNGEAL 10:10 AM PANEL(CEPHEID) Comment: Alcides garibay GeneXpert (618) Ordering Provid er: GLENN CHISHOLM Report Released Date/Time: Aug 15, 2021 10:11 AM Reporting Lab: [facility] [address] [place] [facility] [id number] Performing Lab: [facility] [address] [facility] [facility] [id number] COVID-19 (CEPHEID) Not Detected Not Dete cted INFLUENZA A (PCR) Not Detected Not Detec rosalba INFLUENZA B (PCR) Not Detected Not Detec rosalba RSV (PCR) Not Detected Not Detected Jun 25, 2021 09:[address] [facility] PT/INR(ANTICOAG) Speci men Type: PLASMA No comment enter ed. Ordering Provid er: NAOMI STORY Report Released Date/Time: Jun 13, 2021 11:17 AM Reporting Lab: [facility] [address] [place] [facility] [id number] Performing Lab: [facility] [address] [facility] [facility] [id number] .INR 3.4 H 0.8-1.1 .PT 39.1 H 9.4-12.5 Social History: Smoking Status (Most current) and Tobacco Use (All prior to encounter date) This section includes the most current, and the historical, smoking and tobacco-related health factors from the [place] facility where the Encounter took place.Current Smoking Status This section includes the most current smoking, or tobacco-related health factor, from the [place] facility where the Encounter took place. Date/Time Current Smoking Status Comment Facility May 15, 2021 10:00 AM [place]-TOBACCO NEVER USED [place] [facility] Tobacco Use History This section includes a history of the smoking, or tobacco- related health factors, that were collected on or before the date of the Encounter. The data comes from the [place] facility where the Encounter took place. Date/Time Smoking Status/Tobacco Use Comment [facility] Oct 05, 2019 10:05 AM [place] US[place] [facility] Oct 20, 2018 12:28 PM INPT NO TOBACCO USE IN LAST [address] [facility] Sep 15, 2018 01:21 PM VA-TOBACCO NEVER USED [place] [facility] Aug 11, 2017 08:54 AM LIFETIME NON-TOBACCO USER [facility] Jul 08, 2016 08:07 AM LIFETIME NON-TOBACCO USER [facility] May 09, 2015 02:31 PM LIFETIME NON-TOBACCO USER [facility] Apr 14, 2014 08:41 AM LIFETIME NON-TOBACCO USER [facility] Jan 06, 2007 08:51 AM LIFETIME NON-TOBACCO USER [facility]
--- OUTSIDE RECORDS SUMMARY | 2022-06-06 11:42 | XMS_ITS | Encounter Summary ---
:1945 Author Organization Department [facility] rs Address [address] [place] [address] Support Name Relationship Address Phone Arti CORONEL Unavailable [address] [place] [address] ADITYA MALIN Unavailable [address] [place] [id number] Insurance Providers: All historical and current Section [...] MEDICARE MEDICARE PART May 15, PART A [id number] HOMER Gibson ATIENT (WNR) (M) A 2008 [id number] [phone] ,ELLE MEDICARE MEDICARE PART May 15, PART B [id number] SHAYMOYAIDAN Paige ATIENT (WNR) (M) B 2008 [id number] [phone] ,ELLE Selected Encounter This section includes the information on record at [facility] for the Encounter. 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 This section includes future appointments and future orders which are active, pending orscheduled.Future Appointments This section includes appointments that were scheduled to occur 6 months from the date of the Encounter, up to a maximum of 20 appointments. The data comes from all [place] treatment facilities. Appointment Date/Time Appointment Type Appointment Facili ty Name Jul 10, 2021 08:00 AM AMBULATORY - NONE [facility] Jul 23, 2021 09:30 AM AMBULATORY - MEDICINE [facility] Aug 15, 2021 09:30 AM AMBULATORY - MEDICINE [facility] Aug 15, 2021 10:11 AM AMBULATORY - NEUROLOGY [facility] Sep 10, 2021 09:30 AM AMBULATORY - MEDICINE [facility] Sep 10, 2021 10:35 AM AMBULATORY - NEUROLOGY [facility] Oct 08, 2021 08:30 AM AMBULATORY - MEDICINE [facility] Oct 29, 2021 09:00 AM AMBULATORY - NONE [facility] Oct 29, 2021 09:15 AM AMBULATORY - NONE [facility] Oct 29, 2021 10:00 AM AMBULATORY - MEDICINE [facility] Oct 29, 2021 10:30 AM AMBULATORY - MEDICINE [facility] Nov 26, 2021 09:30 AM AMBULATORY - MEDICINE [facility] Nov 26, 2021 10:15 AM AMBULATORY - NONE [facility] Dec 18, 2021 10:30 AM AMBULATORY - NONE [facility] Dec 18, 2021 11:00 AM AMBULATORY - MEDICINE [facility] Dec 18, 2021 11:30 AM AMBULATORY - MEDICINE [facility] Dec 24, 2021 09:30 AM AMBULATORY - MEDICINE [facility] Lab Results: +/- 30 days of the encounter This section includes the Chemistry and Hematology Lab Results on record with [facility] for the patient. Radiology Reports and Pathology Reports are provided separately, in subsequent sections.Lab Results This section contains the Chemistry/Hematology Results that were resulted 30 days before or 30 daysafter the date of the Encounter. Date/Time Source Result Type Result - Unit Interpretation Reference Range Comment Jun 25, 2021 09:15 AM [facility] PT/INR(ANTICOAG) Speci men Type: PLASMA No comment enter ed. Ordering Provid er: NAOMI STORY Report Released Date/Time: Jun 13, 2021 11:17 AM Reporting Lab: [facility] [address] [facility] [address] Performing Lab: [facility] [address] .INR 3.4 H 0.8-1.1 .PT 39.1 H 9.4-12.5 May 28, 2021 09:15 AM [facility] SEROTONIN Specim en Type: SERUM Comment: This t est was developed and its analytical performance characteristics have been determined by [facility] [place]. It has not been cleared or approved by the U.S . Food and Drug Administration. This assay has been validated pursuant to the CLIA regulations and is used for clinical purposes. Test Performed by [facility], [facility][1], [address] [place] [address] Truman Doan M.D., Ph.D., Director of Laboratories , CLIA [id number] Ordering Provid er: LILI GARCIA Report Released Date/Time: Feb 28, 2021 09:32 AM Reporting Lab: [facility] [address] [facility] [id number] Performing Lab: [address] SEROTONIN 1393 H 56-244 May 28, 2021 09:15 [facility] CHROMOGRANIN A(ROSE) Spec imen Type: SERUM AM No comment enter ed. Ordering Provid er: LILI GARCIA Report Released Date/Time: Feb 28, 2021 09:32 AM Reporting Lab: [facility] [address] [facility] [address] Performing Lab: [facility] [address] [place] GARCIA [facility] [address] CHROMOGRANIN A([facility]) 52 <92 May 28, 2021 09:15 AM [facility] LD,TOTAL Specim en Type: PLASMA No comment enter ed. Ordering Provid er: LILI GARCIA Report Released Date/Time: Feb 28, 2021 09:32 AM Reporting Lab: [facility] [address] [facility] [address] Performing Lab: [facility] [address] [facility] [address] LD,TOTAL 201 125-220 May 28, 2021 09:15 [facility] HEMOGLOBIN A1C Specimen Type: BLOOD AM No comment enter ed. Ordering Provid er: CLAYTON ROLLE Report Released Date/Time: May 15, 2021 12:34 PM Reporting Lab: [facility] [address] [facility] [address] Performing Lab: [facility] [address] [facility] [address] HEMOGLOBIN A1C 5.9 4.0-6.0 May 28, 2021 09:15 AM [facility] PSA Specim en Type: SERUM No comment enter ed. Ordering Provid er: CLAYTON ROLLE Report Released Date/Time: May 15, 2021 12:34 PM Reporting Lab: [facility] [address] [facility] [address] Performing Lab: [facility] [address] [facility] [address] PSA 0.01 <4.00 May 28, 2021 [facility] LIPID PANEL,NON-FASTING Spec imen Type: PLASMA 09:15 AM No comment enter ed. Ordering Provid er: CLAYTON ROLLE Report Released Date/Time: May 15, 2021 12:34 PM Reporting Lab: [facility] [address] [facility] [address] Performing Lab: [facility] [address] [facility] [address] CHOLESTEROL 203 H <199 .HDL 58 >40 LDL CALCULATION 123 H <99 VLDL CALCULATION 22 <29 NON HDL CHOLESTEROL 145 H <129 TRIG(NON FASTING) 108 <149 May 28, 2021 [facility] COMPREHENSIVE METABOLIC Spec imen Type: PLASMA 09:15 AM PANEL+MG No comment enter ed. Ordering Provid er: LILI GARCIA Report Released Date/Time: Feb 28, 2021 09:32 AM Reporting Lab: [facility] [address] Performing Lab: [facility] [address] CREATININE 0.9 0.7-1.2 UREA NITROGEN 12 8-26 GLUCOSE 123 H 74-100 SODIUM 137 136-145 POTASSIUM 4.0 3.5-5.1 CHLORIDE 106 98-107 CO2 24 22-29 CALCIUM 9.3 8.4-10.2 PROTEIN,TOTAL 7.0 6.0-8.3 ALBUMIN 3.9 3.5-5.2 BILIRUBIN, TOTAL 0.8 0.2-1.2 MAGNESIUM 2.1 1.6-2.6 ANION GAP 7 5-15 ALKALINE PHOSPHATASE 72 40-150 ALT/SGPT 17 <55 AST/SGOT 17 <34 ESTIMATED GFR(eGFR) 82 >60 May 28, 2021 09:15 AM [facility] CBC & DIFF Specim en Type: BLOOD Comment: Automa rosalba Differential Performed Ordering Provid er: LILI GARCIA Report Released Date/Time: Feb 28, 2021 09:32 AM Reporting Lab: [facility] [address] Performing Lab: [facility] [address] WBC 4.25 4.0-11.0 RBC 4.19 L 4.6-6.2 HGB 14.2 13.5-17.9 HCT 41.6 41-54 MCV 99.3 80-100 MCH 33.9 H 27-33 MCHC 34.1 32.0-37.5 PLT 216 150-400 MPV 9.9 7.4-10.4 NEUT 56.1 LYMPHS 25.4 MONO 14.1 EOSINO 3.5 BASO 0.7 RDW 12.5 11.5-14.5 ABS LYMPH 1.08 1.0-4.0 ABS MONO 0.60 0.1-1.0 ABS NEUT 2.38 2.0-7.7 ABS EOS 0.15 0-0.5 ABS BASO 0.03 0-0.2 IG(META,MYELO,PRO) 0.2 ABS IMMATURE GRAN 0.01 0-0.1 Vital Signs: All taken on the encounter date This section contains inpatient and outpatient Vital Signs collected on the date of the Encounter. Date/Time Temperature Pulse Blood Respiratory SP02 Pain Height Weight Zainab dy Source Pressure Rate Mass Index Jun 25, 97.9 F 93 101/68 16 /min 95 % 0 215.2 30 [place] 2020 10:07 /min mm[Hg] lb [facility] Social History: Smoking Status (Most current) and Tobacco Use (All prior to encounter date) This section includes the most current, and the historical, smoking and tobacco-related health factors from the [facility] facility where the Encounter took place.Current Smoking Status This section includes the most current smoking, or tobacco-related health factor, from the [facility] facility where the Encounter took place. Date/Time Current Smoking Status Comment Facility May 15, 2021 10:00 AM [facility]-TOBACCO [facility] Tobacco Use History This section includes a history of the smoking, or tobacco- related health factors, that were collected on or before the date of the Encounter. The data comes from the [place] facility where the Encounter took place. Date/Time Smoking Status/Tobacco Use Comment [facility] Oct 05, 2019 10:05 AM HI-TOBACCO NEVER USED [place] [facility] Oct 20, 2018 12:28 PM INPT NO TOBACCO USE IN LAST 30 DAYS [facility] Sep 15, 2018 01:21 PM HI-TOBACCO NEVER USED [place] [facility] Aug 11, 2017 08:54 AM LIFETIME NON-TOBACCO USER [facility] Jul 08, 2016 08:07 AM LIFETIME NON-TOBACCO USER [facility] May 09, 2015 02:31 PM LIFETIME NON-TOBACCO USER [facility] Apr 14, 2014 08:41 AM LIFETIME NON-TOBACCO USER [facility] Jan 06, 2007 08:51 AM LIFETIME NON-TOBACCO USER [facility] Encounter Notes: All associated encounter notes This section contains the clinical notes associated to the Encounter. 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 He has been on long acting octreotide since 08/15. He also has prostate cancer, s/p HIFU treatment in [place] and is bein g followed by Urology at [facility]. Here today for follow-up with spine MRI. Interval Hx: Patient states that he continues to feel well overall without symptoms related to carcinoid. He endorses so me soft stools, no diarrhea. First stool of the day is well formed and then up t o 3 soft stools after that. He reports he is eating lost of fiber. No abd pain. Good appetite. Wt st able. He has occasional small bleeding from hemorrhoids. D enies n/v. Chronic cough related to post-nasal drip. No f/c/ns, SOB, chest pain, urinary sxs, neuro c hanges, bone pain or rash. Cancer History: - carcinoid, primary site at the ileum with invo lvement of mesenteric lymph node(s). - He also has prostate cancer Mario 3+ 4, pt had HIFU in [place] 10/09/07 and 2 treatments of lupron. - He was noted to have enlarging mesenteric LNs- initially thought to be metastatic from prostate ca but had biop sy completed 10/27/08 at [place] which was consistent with well-differentiated neuroendocri ne carcinoma (carcinoid). - Also a saturation biopsy o f the prostate done at [facility] 11/20/08 with no evidence for prostate cancer - Repeat scans from 03/2011 were stable. Chromagr anin-A has also been stable. - Last seen by Urology here in 12/2008-> they advised to follow PSA with pcp q 6 months, refer back to Uro if PSA rises >0.75 ng/mg per year or a large rise in 1 year. - 10/2011 Refer back to Urology and being followe d there - 04/14/12 CT show - Impression: Stable to slightly increased size of lobulated 4.3 cm mesenteric soft tissue mass versus clustered lymph nodes s yamilex 04/11/2011. This is consistent with history of metastatic c arcinoid. No other evidence of metastatic disease within the chest , abdomen, or pelvis. - 04/14/13 CT show: Mild interval enlargement of a lobular soft tissue mass central inferior abdominal/upper pelvic mesente ry, now estimating 4.3 x 3.1 x 4.0 cm, previously 4.3 x 1.7 x 4.0 cm. A left inferior lobular extension of the mass is also larger, 17 mm with versus 14 mm on comparison. 2. Several central mesenteric and retroperitoneal lymph nodes which are also larg er, which may relate to metastatic disease, versus reactive l ymph nodes. Some of the largest of these measure up to 14 x 12 m m. 3. Several low-attenuation foci within the liver and kidne ys, all of which are favored as cysts. 4. Enlarged prostate. - 04/14/13 Chromogranin A up to - 01/2014 Underwent salvage prostatectomy at [place] . - 07/17/14 CT c/a/p: Impression: 1. A cluster of left periaortic retroperitoneal lymph nodes have increased in size from 08/05/2013. Their locati on, in conjunction with the patient's history, would be most ananda rning for metastatic prostate cancer. 2. The dominant soft tissue mass in the central abdominal mesentery compatible with the patient's known h istory of carcinoid has not appreciably changed in size f rom 08/05/2013. - 07/17/14 Chromagranin A 25, PSA <0.01. - 10/23/14- CT c/a/p Impression: 1. Mid mesenteric soft tissue mass with adjacen t lymphadenopathy continues to slowly increase in size, compatibl e with carcinoid progression. 2. A cluster of mildly enlarged left periaortic retroperitoneal lymph nodes is unchanged from 07/17/2014 but inc reased from 08/05/2013. Given the patient's history, these remain most concerning for metastatic prostate cancer. 3. Small right external iliac chain lymphocele has decreased in size from prior. - 04/20/15 Chromagranin A down to 6; CT scan show: Impression: Mid mesenteric soft tissue mass with adjacent l ymphadenopathy slightly decreased in size since 10/23/2014. Cluster of mildly enlarged left periaortic retr operitoneal lymph nodes unchanged. A few indeterminate nodules in the lung parench yma bilaterally unchanged since 2011. Low attenuating lesions within the liver parenc hyma unchanged. Stable right renal cyst. Previously noted right external iliac chain flu id collection has almost completely resolved. 10/06/17 CT show: Impression: 1. Interval development of a nodular spiculated opacity in the right middle lobe new since 07/21/2017. Given zonia hawkins's history, metastatic disease cannot be excluded. PET scan can be considered. Punctate nodules in the right minor fissure and right middle lobe unchanged dating back to 2013. 2. A few periaortic lymph nodes, and mesenteric lymph nodes along with a large mesenteric mass not significantly change since 07/21/2017, slightly decreased in size since 5. The central mesenteric lymph nodes not significantly change d since 10/23/2014 but increased since 2012. 3. Tiny indeterminant sclerotic focus within th e T9 vertebral body on the right unchanged since 2015 but has increased in size since 2014. 08/06/18 Chromogranin A at 83 08/12/18 PET-CT show: Impression: 1. No FDG avid intrapulmonary lesion. The right middle lobe pulmonary nodule in question is too small for m eaningful FDG PET characterization. 2. FDG uptake associated with the patient's pre viously described mesenteric mass. 08/26/19 CT show: Impression: 1. Enlarging mesenteric mass measuring up to 4. 1 cm, previously 3.[address] scan from 08/06/2018 consistent wi th patient's known carcinoid tumor. This didn't show FDG avidity o n interval PET CT scan from 08/12/2018. 2. Innumerable new small sclerotic foci of the axial skeleton concerning for metastatic disease. 3. Hepatic hypodensities which are grossly unch anged in favor benign hepatic cysts. 4. Right renal cortical cyst. 5. Stable right middle lobe lung nodule. No new or enlarging pulmonary nodules. 09/02/19 Started on long acting Octreotide 09/2019 Dotatate scan done at [facility] 1. Innumerable mets throughout bones of the bod y, with liver mets, retroperitoneal, periaortic, mesenteric, and hi lar node mets. 2. Small hypermetabolic tumor mid body of pancr eas cannot exclude this as primary site. - 3/30/20 SEROTONIN 1424 ng/mL ; chromogranin A 80 - 04/03/20 SEROTONIN 1119H ng/mL - 06/04/20 SEROTONIN 1179 ng/mL - 12/25/20 Serotonin 1492 - 01/22/21 Serotonin 802 - 01/28/21 Dotatate PET scan show: Innumerable osseous lesions in similar distribu tion to 10/07/2019, with multiple lesions demonstrating mildly incr eased avidity. L1 and L3 lesions might have mild epidural extension. Unc hanged Dotatate avid adenopathy in the c/a/p. Decreased avidity of t he central mesenteric mass. Decreased avidity of the hepatic metastas is. Stable peripancreatic foci, suggestive of peripancreatic adenopathy, versus intrapancreatic lesions. Lumbar spine is recommended. No new zainab ne lesions - 02/21/21 Lumbar MRI show: Impression: 1. Diffuse bony metastatic disease. No obvious extraosseous extension to involve soft tissues. Pattern isai lar to the recent PET CT scan. 2. Diffuse degenerative changes, with disc spac e narrowing greatest at L5-S1. Facet arthropathy greatest a t L4-5. Old impacted fractures of the superior L2 and L3 en dplates. 3. At L4-5, moderate spinal canal stenosis with some impingement right L5 nerve root in the lateral recesses. 4. At L5-S1, moderate left foraminal stenosis. - 06/25/21 Serotonin 1393, Chromogranin 52 Meds reviewed/Allergies reviewed: DIAL SOAP (Mar 25, 2007) NAPROXEN (February 05, 2011) Nursing note and vitals reviewed: Height: 71.5 in [181.6 cm] (05/15/2021 10:14) Weight: 215.2 lb [97.8 kg] (06/25/2021 10:07) BSA: 2.22 BMI: 29.7 BP: 101/68 (06/25/2021 10:07) Pulse: 93 (06/25/2021 10:07) Resp: 16 (06/25/2021 10:07) Temp: 97.9 F [36.6 C] (06/25/2021 10:07) Pain: 0 (06/25/2021 10:07) PHYSICAL EXAMINATION: General: NAD Lymphatic: No palpable cervical, supraclavicula r, or axillary adenopathy HEENT: Sclera clear, non-icteric, oral exam def erred CV: RRR, no murmurs or rubs, trace L>R LE edema with slight sock line PULM: CTA bilaterally, no rales, ronchi or whee zes GI: soft, NT/ND Neuro: Alert & oriented x 3. Cranial nerve II-X II grossly intact, sensation and strength intact. MS: No muscle tenderness/pain, No palpable bone tenderness, no spine or paraspinous tenderness Skin: No rashes, eccyhmoses or petechaie noted LABORATORY/IMAGING STUDIES: The results of the l aboratory studies obtained by Hem/Onc for this office visit were reviewed and discussed with the patient at today's clinic visit. HGB 14.2 (05/28/21) HCT 41.6 (05/28/21) MCV 99.3 (05/28/21) WBC 4.25 (05/28/21) ABS NEUT 2.38 (05/28/21) ABS LYMPH 1.08 (05/28/21) PLT 216 (05/28/21) CREATININE 0.9 (05/28/21) UREA NITROGEN 12 (05/28/21) GLUCOSE 123 H (05/28/21) CALCIUM 9.3 (05/28/21) POTASSIUM 4.0 (05/28/21) SODIUM 137 (05/28/21) CHLORIDE 106 (05/28/21) MAGNESIUM 2.1 (05/28/21) PO4____ PROTEIN,TOTAL 7.0 (05/28/21) ALBUMIN 3.9 (05/28/21) ALK PHOSPHATASE 72 (05/28/21) SGOT 17 (05/28/21) SGPT 17 (05/28/21) BILIRUBIN, TOTAL 0.8 (05/28/21) LD,TOTAL 201 (05/28/21) PSA 0.01 (05/28/21) Performance Status: ECOG - 0 ASSESSMENT/PLAN: (1) 76 y/o male with Carcinoid involving ileum a nd mesenteric LNs initially diagnosed in 2008. Surgery was not done due to l ocation of tumor and unlikely benefit. He was on surveillance with sta ble/normal Chromagranin A. However, in 08/2019 he was noted to have enlargement of the mesenteric mass but also new galo lesions suspicious for bone mets and pavithra l chromogranin level. He was started on Octreotide monthly and dotatate scan obtained in 09/2019 showed Innumerable mets throughout bones of the body, with liver mets, retroperitoneal, periaortic, mesenteric, and hilar node m ets. He has been tolerating octreotide well overall. Chromogranin n ormal and serotonin levels down to 800 from previous of 1400 in setting of COVID-19 infection. PET Dotatate done at [facility] 01/28/21 show mixed findings with innumerable osseous lesions in similar distribution to 2019, with multiple lesions demonstrating mildly increased avidity. L1 and L 3 lesions might have mild epidural extension. There was no new lesions. In addition, adenopathy in the chest, abdomen, and pelvis are stable; t he central mesenteric mass and hepatic metastasis show decrease avidity. Lumbar MRI done 02/2021 show no obvious extraosse ous extension to involve soft tissues and diffuse degenera tive changes and moderate spinal canal stenosis with some impingement right L5 nerve root in the late ral recesses. Clinically and symptomatically patient is doing well. Remainder of labs are stable. - Maintain on monthly octreotide, shot to be gi roxana today - Reviewed recent scan results with the patient again today. Patient requested print out of most recent Dotatate sca n which was provided to him. - [facility] 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 Patient was concerned that jennifer vated serotonin was related to aortic valve thrombus. We discussed that serotonin level of 1393 from 05/28 was not likely to be related to the aortic thrombus. Serotonin release assays are sometimes checked in the setting of HIT, which can cause clots. However, his last TTE fr om 11/2019 was without evidence of clot and his serotonin level was si milar at that time. Possible lower serotonin level was related to o ngoing recovery from COVID infection in 08/2020. - F/U with procedure clinic every 4 weeks for o ctreotide shot - RTC in 4 months with labs 2-3 weeks prior to appt (2) Prostate cancer s/p pros tatectomy at [place] in 01/2014. Last PSA is <0.01. 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 - He has previously been offered appt with spin e surgery vs neurosurgery. Declined and reported he would di scuss further with PCP in [place]. Can offer referal again if pain is more persistent or bothersome. Patient Education of Treatment Plan: Patient and family member indicates readiness to learn, verbalizes understanding, ag reement and satisfaction with the treatment plan. All questions answered to th eir apparent satisfaction. 40 min spent with patient reviewing lab results, examination, reviewing treatment plan and EHR documentation /mustapha/ VIKAS SALGUERO PHYSICIAN PERSONNEL INTERVIEWER Signed: 06/25/2021 11:38 Receipt Acknowledged By: * AWAITING SIGNATURE * LILI GARCIA Jun 25, 2021 10:09 AM INTERNAL MEDICINE OUTPATIENT NOTE: LUIS F SCHRADER [facility] LOCAL TITLE: MEDICINE CLINIC NURSING NOTE STANDARD TITLE: INTERNAL MEDICINE OUTPATIENT NOT E DATE OF NOTE: JUN 25, 2021@10:09 ENTRY DATE: JUN 25, 2021@10:09:55 AUTHOR: NATHANAEL SCHRADER EXP COSIGNER: URGENCY: STATUS: COMPLETED TYPE OF VISIT: Appointment Check In Type of appointment: In-person appointment REASON FOR VISIT: scheduled visit ALLERGIES: DIAL SOAP (Mar 25, 2007) NAPROXEN (February 05, 2011) VITAL SIGNS: Blood Pressure: 101/68 (06/25/2021 10:07) Pulse: 93 (06/25/2021 10:07) Respiration: 16 (06/25/2021 10:07) Temperature: 97.9 F [36.6 C] (06/25/2021 10:07) Weight: 215.2 lb [97.8 kg] (06/25/2021 10:07) Height: 71.5 in [181.6 cm] (05/15/2021 10:14) BMI: 29.7 O2 Sat: 95 (06/25/2021 10:07) Pain: 0 (06/25/2021 10:07) PAIN SCREEN: Patient is not having significant pain that the y wish to discuss with their provider today. MEDICATION Over the Counter/Herbal Medications: The patient states that they take some outside medications and/or herbals. /es/ NATHANAEL SCHRADER LPN LPN Signed: 06/25/2021 10:10
--- OUTSIDE RECORDS SUMMARY | 2022-06-06 11:42 | XMS_ITS | Encounter Summary ---
:1945 Author Organization Department [facility] rs Address [address] [place] [address] Support Name Relationship Address Phone Arti CORONEL Unavailable [address] [facility] [place] [address] ADITYA MALIN Unavailable [address] [place] [address] Insurance Providers: All historical and current Section [...] MEDICARE MEDICARE PART May 15, PART A [id number] 800 HOMER HUNTER (WNR) (M) A 2008 94A [id number] ,ELLE MEDICARE MEDICARE PART May 15, PART B [id number] 800 HOMER HUNTER (WNR) (M) B 2008 94A [phone] ,ELLE Selected Encounter This section includes the information on record at [place] for the Encounter. Date/Time Encounter Type Encounter Reason Provider Source Description Jun 26, 2021 HC PRO PHONE TELEPHONE/MEDICIN ICD-10-CM Z51.81 [facility] [place] 09:34 AM CALL 11-20 MIN E Encounter for AH L therapeutic drug level monitoring with Provider Comments: Encounter for therapeutic drug level monitoring IHE Encounter Template Text not used by [facility] Assessments - Encounter Diagnoses This section includes the primary and secondary diagnoses documented for the Encounter. Date/Time Primary/Secondary Diagnosis Name Provider Source Diagnosis Jun 26, 2021 PRIMARY Encounter for MIRA GARCIA V A 09:34 AM therapeutic drug [facility] level monitoring Jun 26, 2021 [facility] [place]ARCIA [place] 09:34 AM use of [facility] anticoagulants Jun 26, 2021 SECONDARY Unspecified atrial MIRA GARCIA [place] 09:34 AM fibrillation [facility] Plan of Treatment: Future Appointments (+ 6 months) and Future Tests (+/- 45 days) The Plan of Treatment section includes future care activities for the patient from [facility] [place] [facility] This section includes future appointments and future orders which are active, pending orscheduled.Future Appointments This section includes appointments that were scheduled to occur 6 months from the date of the Encounter, up to a maximum of 20 appointments. The data comes from all [place] treatment facilities. Appointment Date/Time Appointment Type Appointment Facili ty Name Jul 10, 2021 08:00 AM AMBULATORY - NONE [facility] Jul 23, 2021 09:30 AM AMBULATORY - MEDICINE [facility] Aug 15, 2021 09:30 AM AMBULATORY - MEDICINE [facility] Aug 15, 2021 10:11 AM AMBULATORY - NEUROLOGY [facility] Sep 10, 2021 09:30 AM AMBULATORY - MEDICINE [facility] Sep 10, 2021 10:35 AM AMBULATORY - NEUROLOGY [facility] Oct 08, 2021 08:30 AM AMBULATORY - MEDICINE [facility] Oct 29, 2021 09:00 AM AMBULATORY - NONE [facility] Oct 29, 2021 09:15 AM AMBULATORY - NONE [facility] Oct 29, 2021 10:00 AM AMBULATORY - MEDICINE [facility] Oct 29, 2021 10:30 AM [facility]BUL[facility]ORY - MEDICINE [facility] Nov 26, 2021 09:30 AM AMBULATORY - MEDICINE [facility] Nov 26, 2021 10:15 AM AMBULATORY - NONE [facility] Dec 18, 2021 10:30 AM AMBULATORY - NONE [facility] Dec 18, 2021 11:00 AM AMBULATORY - MEDICINE [facility] Dec 18, 2021 11:30 AM [facility]BULATORY - MEDICINE [facility] Dec 24, 2021 09:30 AM AMBULATORY - MEDICINE [facility] Lab Results: +/- 30 days of the encounter This section includes the Chemistry and Hematology Lab Results on record with [place] for the patient. Radiology Reports and Pathology Reports are provided separately, in subsequent sections.Lab Results This section contains the Chemistry/Hematology Results that were resulted 30 days before or 30 daysafter the date of the Encounter. Date/Time Source Result Type Result - Unit Interpretation Reference Range Comment Jun 25, 2021 09:15 AM [facility] PT/INR(ANTICOAG) Speci men Type: PLASMA No comment enter ed. Ordering Provid er: NAOMI STORY Report Released Date/Time: Jun 13, 2021 11:17 AM Reporting Lab: [facility] [address] [facility] [id number] Performing Lab: [facility] [address] [facility] [address] .INR 3.4 H 0.8-1.1 .PT 39.1 H 9.4-12.5 May 28, 2021 09:15 AM [facility] SEROTONIN Specim en Type: SERUM Comment: This t est was developed and its analytical performance characteristics have been determined by [facility] [place], [place]. It has not been cleared or approved by the U.S . Food and Drug Administration. This assay has been validated pursuant to the CLIA regulations and is used for clinical purposes. Test Performed by [facility], [facility], [address] [place] [address] Truman Doan M.D., Ph.D., Director of Laboratories , CLIA [id number] Ordering Provid er: LILI GARCIA Report Released Date/Time: Feb 28, 2021 09:32 AM Reporting Lab: [facility] [address] [facility] [address] Performing Lab: [address] SEROTONIN 1393 H 56-244 May 28, 2021 09:15 [facility] CHROMOGRANIN A(ROSE) Spec imen Type: SERUM AM No comment enter ed. Ordering Provid er: LILI GARCIA Report Released Date/Time: Feb 28, 2021 09:32 AM Reporting Lab: [facility] [address] [facility] [address] Performing Lab: [facility] [address] [place] [address] CHROMOGRANIN A(ROSE) 52 <92 May 28, 2021 09:15 AM [facility] LD,TOTAL Specim en Type: PLASMA No comment enter ed. Ordering Provid er: LILI GARCIA Report Released Date/Time: Feb 28, 2021 09:32 AM Reporting Lab: [facility] [address] [facility] [address] Performing Lab: [facility] [address] [facility] [address] LD,TOTAL 201 125-220 May 28, 2021 09:15 [facility] HEMOGLOBIN A1C Specimen Type: BLOOD AM No comment enter ed. Ordering Provid er: CLAYTON ROLLE Report Released Date/Time: May 15, 2021 12:34 PM Reporting Lab: [facility] [address] [facility] [address] Performing Lab: [facility] [address] HEMOGLOBIN A1C 5.9 4.0-6.0 May 28, 2021 09:15 AM [facility] PSA Specim en Type: SERUM No comment enter ed. Ordering Provid er: CLAYTON ROLLE Report Released Date/Time: May 15, 2021 12:34 PM Reporting Lab: [facility] [place] [address] Performing Lab: [facility] [address] PSA 0.01 <4.00 May 28, 2021 [facility] LIPID PANEL,NON-FASTING Spec imen Type: PLASMA 09:15 AM No comment enter ed. Ordering Provid er: CLAYTON ROLLE Report Released Date/Time: May 15, 2021 12:34 PM Reporting Lab: [facility] [address] [facility] [address] Performing Lab: [facility] [address] [facility] [address] CHOLESTEROL 203 H <199 .HDL 58 >40 LDL CALCULATION 123 H <99 VLDL CALCULATION 22 <29 NON HDL CHOLESTEROL 145 H <129 TRIG(NON FASTING) 108 <149 May 28, 2021 [facility] COMPREHENSIVE METABOLIC Spec imen Type: PLASMA 09:15 AM PANEL+MG No comment enter ed. Ordering Provid er: LILI GARCIA Report Released Date/Time: Feb 28, 2021 09:32 AM Reporting Lab: [facility] [address] [facility] [address] Performing Lab: [facility] [address] CREATININE 0.9 0.7-1.2 UREA NITROGEN 12 8-26 GLUCOSE 123 H 74-100 SODIUM 137 136-145 POTASSIUM 4.0 3.5-5.1 CHLORIDE 106 98-107 CO2 24 22-29 CALCIUM 9.3 8.4-10.2 PROTEIN,TOTAL 7.0 6.0-8.3 ALBUMIN 3.9 3.5-5.2 BILIRUBIN, TOTAL 0.8 0.2-1.2 MAGNESIUM 2.1 1.6-2.6 ANION GAP 7 5-15 ALKALINE PHOSPHATASE 72 40-150 ALT/SGPT 17 <55 AST/SGOT 17 <34 ESTIMATED GFR(eGFR) 82 >60 May 28, 2021 09:15 AM [facility] CBC & DIFF Specim en Type: BLOOD Comment: Automa rosalba Differential Performed Ordering Provid er: LILI GARCIA Report Released Date/Time: Feb 28, 2021 09:32 AM Reporting Lab: [facility] [address] Performing Lab: [facility] [address] WBC 4.25 4.0-11.0 RBC 4.19 L 4.6-6.2 [...] IG(META,MYELO,PRO) 0.2 ABS IMMATURE GRAN 0.01 0-0.1 Social History: Smoking Status (Most current) and Tobacco Use (All prior to encounter date) This section includes the most current, and the historical, smoking and tobacco-related health factors from the [facility] where the Encounter took place.Current Smoking Status This section includes the most current smoking, or tobacco-related health factor, from the [facility] where the Encounter took place. Date/Time Current Smoking Status Comment Facility May 15, 2021 10:00 AM [place]-TOBACCO NEVER USED [facility] Tobacco Use History This section includes a history of the smoking, or tobacco- related health factors, that were collected on or before the date of the Encounter. The data comes from the [place] facility where the Encounter took place. Date/Time Smoking Status/Tobacco Use Comment Facil iany Oct 05, 2019 10:05 AM VA-TOBACCO NEVER USED [facility] Oct 20, 2018 12:28 PM INPT NO TOBACCO USE IN LAST 30 DAYS [facility] Sep 15, 2018 01:21 PM VA-TOBACCO NEVER USED [facility] Aug 11, 2017 08:54 AM LIFETIME NON-TOBACCO USER [facility] Jul 08, 2016 08:07 AM LIFETIME NON-TOBACCO USER [facility] May 09, 2015 02:31 PM LIFETIME NON-TOBACCO USER [facility] Apr 14, 2014 08:41 AM LIFETIME NON-TOBACCO USER [facility] Jan 06, 2007 08:51 AM LIFETIME NON-TOBACCO USER [facility] Encounter Notes: All associated encounter notes This section contains the clinical notes associated to the Encounter. Date/Time Encounter Note(s) Provider Source Jun 26, 2021 09:34 PHARMACY OUTPATIENT MEDICATION MGT NOTE: JEANNETTE SHAVER [facility] AM LOCAL TITLE: PHARMACY ANTICOAGULATION CLINIC F/ U STANDARD TITLE: PHARMACY OUTPATIENT MEDICATION M GT NOTE DATE OF NOTE: JUN 26, 2021@09:34 ENTRY DATE: JUN 26, 2021@09:34:28 AUTHOR: JEANNETTE GARCIA EXP COSIGNER: URGENCY: STATUS: COMPLETED Indication: A-fib Secondary Indication: - 09/2019: diagnosed [...] He sees a another primary dr in [place], Dr Yancey once yearly [facility]. He sought evalua tion at [place] earlier this year to see if any [...] Care Coordination: Care Coordination: - Local Lab: [facility] Direct P: [phone]; F: [phone] , F: [phone] *New CITC SO sent 06/13/21 *[facility] labs valid: 03/27/21-09/23/21, new consult placed 06/13/21 SUBJECTIVE/OBJECTIVE: - History obtained from patient today at . No: Health changes: No: Pending procedures: No: Bleeding or thromboembolic signs/symptoms or falls: No: Medication changes/significant drug interact ions - Continues: APAP 500mg 1-2x/wk; not new & no r ecent changes No: Dietary changes: - Baseline vit K: ~1 serving of greens every we ek (usually broccoli) - Reported almost daily greens (broccoli, lettu ce, kale), not new - Reported he is trying to eat less overall to lose wt, but not very successful Yes: Alcohol/tobacco use: - Baseline ~1-2 drinks per week - Reported cut back to normal with 1 on 06/20 and 2 on 06/21 & Sat 06/22. More than previously reported No: Dosing discrepancies: Warfarin dose: 7.5mg TuThSa, 5mg all other days (42.5mg/wk); AM Collection DT Spec *INR mg in last 7 days 06/25/2021 09:15 PLASM 3.4 42.5 06/11/2021 local [...] 42.5 letter 09/19/2020 local 3.3 42.5 recent COVID, dec vit K [...] 44.0 218 99.3 6 0.8 19.7 ASSESSMENT/PLAN: Supratherapeutic INR with no identifiable etiolo gy; minimal change despite resuming lower ETOH intake. Previously s table pattern. Recommend dose decrease with INR in 2 weeks - Warfarin dose: DECREASE 7.5mg TuTh, 5mg all other days (40mg/wk) - Next INR: 07/09/21 at local lab w/ tele/letter f/u - Rx assessed for adequate refills - Letter mailed to reinforce new dose Time spent: 15 min Education on Treatment Plan: Patient indicates r eadiness to learn, verbalizes understanding, agreement and satisfac tion with the treatment plan. Denies further questions. /mustapha/ JEANNETTE GARCIA PHARMD CLINICAL [facility]OW SHAKER Signed: 06/26/2021 09:43
--- OUTSIDE RECORDS SUMMARY | 2022-06-06 11:42 | XMS_ITS | Encounter Summary ---
:1945 Author Organization Department [facility] rs Address [address] [place] [id number] Support Name Relationship Address Phone Arti CORONEL Unavailable [address] [place] [address] ADITYA MALIN Unavailable [address] [place] [address] Insurance Providers: All historical and current Section [...] MEDICARE MEDICARE PART May 15, PART A [id number] 800 HOMER HUNTER (WNR) (M) A 2008 94Z [phone] ,ELLE MEDICARE MEDICARE PART May 15, PART B [id number] 800 HOMER HUNTER (WNR) (M) B 2008 94A [id number] ,ELLE Selected Encounter This section includes the information on record at [place] for the Encounter. Date/Time Encounter Type Encounter Description Reason Provider Source Jul 10, 2021 12:00 Outpatient Encounter [facility] AM CONSULT IHE Encounter Template Text not used by [facility] Plan of Treatment: Future Appointments (+ 6 months) and Future Tests (+/- 45 days) The Plan of Treatment section includes future care activities for the patient from all [facility] treatment[facility]ilities. This section includes future appointments and future orders which are active, pending orscheduled.Future Appointments This section includes appointments that were scheduled to occur 6 months from the date of the Encounter, up to a maximum of 20 appointments. The data comes from all [place] treatment facilities. Appointment Date/Time Appointment Type Appointment Facili ty Name Jul 23, 2021 09:30 AM AMBULATORY - MEDICINE [facility] Aug 15, 2021 09:30 AM AMBULATORY - MEDICINE [facility] Aug 15, 2021 10:11 AM AMBULATORY - NEUROLOGY [facility] Sep 10, 2021 09:30 AM AMBULATORY - MEDICINE [facility] Sep 10, 2021 10:35 AM AMBULATORY - NEUROLOGY [facility] Oct 08, 2021 08:30 AM AMBULATORY - MEDICINE [facility] Oct 29, 2021 09:00 AM AMBULATORY [...] and Hematology Lab Results on record with [place] for the patient. Radiology Reports and Pathology Reports are provided separately, in subsequent sections.Lab Results This section contains the Chemistry/Hematology Results that were resulted 30 days before or 30 daysafter the date of the Encounter. Date/Time Source Result Type Result - Unit Interpretation Reference Range Comment Jun 25, 2021 09:15 AM [facility] PT/INR(ANTICOAG) Speci men Type: PLASMA No comment enter ed. Ordering Provid er: NAOMI STORY Report Released Date/Time: Jun 13, 2021 11:17 AM Reporting Lab: [facility] [address] Performing Lab: [facility] [address] .INR 3.4 H 0.8-1.1 .PT 39.1 H 9.4-12.5 Social History: Smoking Status (Most current) and Tobacco Use (All prior to encounter date) This section includes the most current, and the historical, smoking and tobacco-related health factors from the [place] facility where the Encounter took place.Current Smoking Status This section includes the most current smoking, or tobacco-related health factor, from the [facility] where the Encounter took place. Date/Time Current Smoking Status Comment Facility May 15, 2021 10:00 AM [facility] Tobacco Use History This section includes a history of the smoking, or tobacco- related health factors, that were collected on or before the date of the Encounter. The data comes from the [facility] where the Encounter took place. Date/Time Smoking Status/Tobacco Use Comment [facility] Oct 05, 2019 10:05 AM [place]TOBACCO [place] USED [place] [facility] Oct 20, 2018 12:28 PM INPT NO TOBACCO USE IN LAST 30 DAYS [facility] Sep 15, 2018 01:21 PM [place]-TOBACCO [place] USED [place] [facility] [...] Encounter. Date/Time Encounter Note(s) Provider Source Jul 10, 2021 12:00 AM NONVA CONSULT: JIMMIE DELGADO [facility] LOCAL TITLE: COMMUNITY CARE CONSULT RESULT LAB STANDARD TITLE: NONVA CONSULT DATE OF NOTE: JUL 10, 2021 ENTRY DATE: JUL 18 021@10:48:31 AUTHOR: JIMMIE DELGADO EXP COSIGNER: URGENCY: STATUS: COMPLETED [employer] - Scanned Document [facility] APPOINTMENT INFORMATION Documentation received from non-VA provider and scanned into [employer]. /mustapha/ JIMMIE PROCESS Signed: 07/18/2021 10:48
--- OUTSIDE RECORDS SUMMARY | 2022-06-06 11:42 | XMS_ITS | Encounter Summary ---
:1945 Author Organization Department [facility] rs Address [address] [place] [address] Support Name Relationship Address Phone Arti CORONEL Unavailable [address] [place] [address] ADITYA MALIN Unavailable [address] [place] [id number] Insurance Providers: All historical and current Section [...] MEDICARE MEDICARE PART May 15, PART A [id number] 800 HOMER HUNTER (WNR) (M) A 2008 94A [phone] ,ELLE MEDICARE MEDICARE PART May 15, PART B [id number] 800 HOMER HUNTER (WNR) (M) B 2008 94A [phone] ,ELLE Selected Encounter This section includes the information on record at [place] for the Encounter. Date/Time Encounter Type Encounter Description Reason Provider Source Jul 10, 2021 12:00 Outpatient Encounter EVENT (HISTORICAL) AM IHE Encounter Template Text not used by [place] Plan of Treatment: Future Appointments (+ 6 months) and Future Tests (+/- 45 days) The Plan of Treatment section includes future care activities for the patient from all [place] treatmentfacilities. This section includes future appointments and future orders which are active, pending orscheduled.Future Appointments This section includes appointments that were scheduled to occur 6 months from the date of the Encounter, up to a maximum of 20 appointments. The data comes from all [place] treatment facilities. Appointment Date/Time Appointment Type Appointment Facili ty Name Jul 23, 2021 09:30 AM AMBULATORY - MEDICINE [facility] Aug 15, 2021 09:30 AM AMBULATORY - MEDICINE [facility] Aug 15, 2021 10:11 AM AMBULATORY - NEUROLOGY [facility] Sep 10, 2021 09:30 AM AMBULATORY - MEDICINE [facility] Sep 10, 2021 10:35 AM AMBULATORY - NEUROLOGY [facility] Oct 08, 2021 08:30 AM AMBULATORY - MEDICINE [facility] Oct 29, 2021 09:00 AM AMBULATORY - NONE [facility] Oct 29, 2021 09:15 AM AMBULATORY - NONE [facility] Oct 29, 2021 10:00 AM AMBULATORY - MEDICINE [facility] Oct 29, 2021 10:30 AM AMBULATORY - MEDICINE [facility] Nov 26, 2021 09:30 AM AMBULATORY - MEDICINE [facility] Nov 26, 2021 10:15 AM AMBULATORY - NONE [facility] Dec 18, 2021 10:30 AM AMBULATORY - NONE [facility] Dec 18, 2021 11:00 AM AMBULATORY - MEDICINE [facility] Dec 18, 2021 11:30 AM AMBULATORY - MEDICINE [facility] Dec 24, 2021 09:30 AM AMBULATORY - MEDICINE [facility] Lab Results: +/- 30 days of the encounter This section includes the Chemistry and Hematology Lab Results on record with [place] for the patient. Radiology Reports and Pathology Reports are provided separately, in subsequent sections.Lab Results This section contains the Chemistry/Hematology Results that were resulted 30 days before or 30 daysafter the date of the Encounter. Date/Time Source Result Type Result - Unit Interpretation Reference Range Comment Jun 25, 2021 09:15 AM [facility] PT/INR(ANTICOAG) Speci men Type: PLASMA No comment enter ed. Ordering Provid er: NAOMI STORY Report Released Date/Time: Jun 13, 2021 11:17 AM Reporting Lab: [facility] [address] [place] [facility] [address] Performing Lab: [facility] [address] [facility] [address] .INR 3.4 H 0.8-1.1 .PT 39.1 H 9.4-12.5 Social History: Smoking Status (Most current) and Tobacco Use (All prior to encounter date) This section includes the most current, and the historical, smoking and tobacco-related health factors from the [place] facility where the Encounter took place.Current Smoking Status This section includes the most current smoking, or tobacco-related health factor, from the [place] facility where the Encounter took place. Date/Time Current Smoking Status Comment Facility May 15, 2021 10:00 AM [place] US[place] [facility] Tobacco Use History This section includes a history of the smoking, or tobacco- related health factors, that were collected on or before the date of the Encounter. The data comes from the [place] facility where the Encounter took place. Date/Time Smoking Status/Tobacco Use Comment [facility] Oct 05, 2019 10:05 AM [place]-TOBACCO [place] USED [place] [facility] Oct 20, 2018 12:28 PM INPT NO TOBACCO USE IN LAST 30 DAYS [facility] Sep 15, 2018 01:21 PM [place]-TOBACCO NEVER USED [place] [facility] Aug 11, 2017 08:54 AM LIFETIME NON-TOBACCO USER [facility] Jul 08, 2016 08:07 AM LIFETIME NON-TOBACCO USER [facility] May 09, 2015 02:31 PM LIFETIME NON-TOBACCO USER [facility] Apr 14, 2014 08:41 AM LIFETIME NON-TOBACCO USER [facility] Jan 06, 2007 08:51 AM LIFETIME NON-TOBACCO USER [facility]
--- OUTSIDE RECORDS SUMMARY | 2022-06-06 11:42 | XMS_ITS | Encounter Summary ---
:1945 Author Organization Department [facility] rs Address [address] [place] [id number] Support Name Relationship Address Phone Arti CORONEL Unavailable [address] [facility] [place] [address] ADITYA MALIN Unavailable [address] [place] [id number] Insurance Providers: All historical and current Section [...] MEDICARE MEDICARE PART May 15, PART A [id number] 800 HOMER HUNTER (WNR) (M) A 2008 94A [phone] ,ELLE MEDICARE MEDICARE PART May 15, PART B [id number] 800 HOMER HUNTER (WNR) (M) B 2008 94A [id number] ,ELLE Selected Encounter This section includes the information on record at [place] for the Encounter. Date/Time Encounter Type Encounter Reason Provider Source Description Jul 11, 2021 HC PRO PHONE TELEPHONE/MEDICIN ICD-10-CM Z51.81 VICTORIANO SPRING 02:59 PM CALL 11-20 MIN E Encounter for W S therapeutic drug level monitoring with Provider Comments: Encounter for therapeutic drug level monitoring IHE Encounter Template Text not used by [place] Assessments - Encounter Diagnoses This section includes the primary and secondary diagnoses documented for the Encounter. 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[place] [facility] 02:59 PM use of [facility] anticoagulants Jul 11, 2021 SECONDARY Unspecified atrial [place] 02:59 PM fibrillation EW S [facility] Plan of Treatment: Future Appointments (+ 6 [...] 23, 2021 09:30 AM AMBULATORY - MEDICINE [facility] Aug 15, 2021 09:30 AM AMBULATORY - MEDICINE [facility] Aug 15, 2021 10:11 AM AMBULATORY - NEUROLOGY [facility] Sep 10, 2021 09:30 AM AMBULATORY - MEDICINE [facility] Sep 10, 2021 10:35 AM AMBULATORY - NEUROLOGY [facility] Oct 08, 2021 08:30 AM AMBULATORY - MEDICINE [facility] Oct 29, 2021 09:00 AM AMBULATORY - NONE [facility] Oct 29, 2021 09:15 AM AMBULATORY - NONE [facility] Oct 29, 2021 10:00 AM AMBULATORY - MEDICINE [facility] Oct 29, 2021 10:30 AM AMBULATORY - MEDICINE [facility] Nov 26, 2021 09:30 AM AMBULATORY - MEDICINE [facility] Nov 26, 2021 10:15 AM AMBULATORY - NONE [facility] Dec 18, 2021 10:30 AM AMBULATORY - NONE [facility] Dec 18, 2021 11:00 AM AMBULATORY - MEDICINE [facility] Dec 18, 2021 11:30 AM AMBULATORY - MEDICINE [facility] Dec 24, 2021 09:30 AM AMBULATORY - MEDICINE [facility] Lab Results: +/- 30 days of [...] Range Comment Jun 25, 2021 09:15 AM [facility] PT/INR(ANTICOAG) Speci men Type: PLASMA No comment enter ed. Ordering Provid er: NAOMI STORY Report Released Date/Time: Jun 13, 2021 11:17 AM Reporting Lab: [facility] [address] [facility] [id number] Performing Lab: [facility] [address] [facility] [address] .INR 3.4 H 0.8-1.1 .PT 39.1 H 9.4-12.5 Social History: Smoking Status (Most current) and Tobacco Use (All prior to encounter date) This section includes the most current, and the historical, smoking and tobacco-related health factors from the [facility] where the Encounter took place.Current Smoking Status This section includes the most current smoking, or tobacco-related health factor, from the [facility] where the Encounter took place. Date/Time Current Smoking Status Comment Facility May 15, 2021 10:00 AM [place] Tobacco Use History This section includes a history of the smoking, or tobacco- related health factors, that were collected on or before the date of the Encounter. The data comes from the [facility] where the Encounter took place. Date/Time Smoking Status/Tobacco Use Comment [facility] Oct 05, 2019 10:05 AM [place]-TOBACCO NEVER USED [place] [facility] Oct 20, 2018 12:28 PM INPT NO TOBACCO USE IN LAST 30 DAYS [facility] Sep 15, 2018 01:21 PM NE-TOBACCO NEVER USED [place] [facility] Aug 11, 2017 08:54 AM LIFETIME NON-TOBACCO USER [facility] Jul 08, 2016 08:07 AM LIFETIME NON-TOBACCO USER [facility] May 09, 2015 02:31 PM LIFETIME NON-TOBACCO USER [facility] Apr 14, 2014 08:41 AM LIFETIME NON-TOBACCO USER [facility] Jan 06, 2007 08:51 AM LIFETIME NON-TOBACCO USER [facility] Encounter Notes: All associated encounter notes This section contains the clinical notes associated to the Encounter. Date/Time Encounter Note(s) Provider Source Jul 11, 2021 02:59 PM PHARMACY OUTPATIENT MEDICATION MGT NOT E: RUEL SPRING [facility] LOCAL TITLE: PHARMACY ANTICOAGULATION CLINIC F/ U STANDARD TITLE: PHARMACY OUTPATIENT MEDICATION M GT NOTE DATE OF NOTE: JUL 11, 2021@14:59 ENTRY DATE: JUL 11, 2021@14:59:47 AUTHOR: RUEL SPRING EXP COSIGNER: URGENCY: STATUS: COMPLETED Indication: A-fib [...] He sees a another primary dr in [place], Dr Yancey once yearly but [facility]. He sought evalua tion at [place] earlier this year to see if any [...] Care Coordination: Care Coordination: - Local Lab: [facility] P: [phone]; F: [phone] , F: [phone] *New CITC SO sent 06/13/21 *[facility] labs valid: 03/27/21-09/23/21, new consult placed 06/13/21 SUBJECTIVE/OBJECTIVE: - History obtained from patient's spouse today a t [phone]. No: Health changes: No: Pending procedures: No: Bleeding or thromboembolic signs/symptoms or falls: - Reports bruising (not a new issue) No: Medication changes/significant drug interact ions - Continues: APAP 500mg 1-2x/wk; not new & no r ecent changes No: Dietary changes: - Baseline vit K: ~1-2 serving of greens every week (usually broccoli) - Reported he is trying to eat less overall to lose wt, but not very successful Yes: Alcohol/tobacco use: - Baseline ~1-2 drinks per week. - Spouse reports variable intake today No: Dosing discrepancies: Warfarin dose: 7.5mg TuTh, 5mg all other days (4 0mg/wk); AM Collection DT Spec *INR mg in last 7 days 07/10/2021 local 3.4 40 06/25/2021 09:15 PLASM [...] 218 99.3 6 0.8 19.7 ASSESSMENT/PLAN: Supratherapeutic anticoagulation despite recent dose reduction. No clear etiology for high INR. No co mplications reported. Unstable pattern recently. As INR has not changed despite dose reduction, an a dditional dose reduction is appropriate. Will follow-up in 2 weeks. - Warfarin dose: DECREASE 7.5mg Th, 5mg all other days (37.5mg/wk) - Next INR: 07/23/21 at local lab w/ tele/letter f/u - Rx assessed for adequate refills - Letter mailed to reinforce new dose Time spent: 15 min Education on Treatment Plan: Patient indicates r eadiness to learn, verbalizes understanding, agreement and satisfac tion with the treatment plan. Denies further questions. /mustapha/ RUEL SPRING CLINICAL PHARMACIST Signed: 07/11/2021 15:21
--- OUTSIDE RECORDS SUMMARY | 2022-06-06 11:42 | XMS_ITS | Encounter Summary ---
:1945 Author Organization Department [facility] rs Address [address] [place] [id number] Support Name Relationship Address Phone Arti CORONEL Unavailable [address] [place] [address] ADITYA MALIN Unavailable [address] [phone] [place] [address] Insurance Providers: All historical and current Section [...] MEDICARE MEDICARE PART May 15, PART A [id number] 800 HOMER HUNTER (WNR) (M) A 2008 94A [phone] ,ELLE MEDICARE MEDICARE PART May 15, PART B [id number] 800 HOMER DEL VALLEIENT (WNR) (M) B 2008 94A [phone] ,ELLE Selected Encounter This section includes the information on record at [place] for the Encounter. Date/Time Encounter Type Encounter Reason Provider Source Description Jun 25, 2021 OCTREOTIDE MEDICAL PROCEDURE ICD-10-CM C7A.00 Fariha MCFADDEN VANI 10:30 AM INJECTION, DEPOT UNIT Malignant carcinoid tumor of unspecified site with Provider Comments: Carcinoid tumor (SCT [id number]) IHE Encounter Template Text not used by [place] Assessments - Encounter Diagnoses This section includes the primary and secondary diagnoses documented for the Encounter. Date/Time Primary/Secondary Diagnosis Name Provider Source Diagnosis Jun 25, 2021 PRIMARY Malignant JAN MCFADDEN [facility] 02:52 PM carcinoid tumor HCS of unspecified site Plan of Treatment: Future Appointments (+ 6 months) and Future Tests (+/- 45 days) The Plan of Treatment section includes future care activities for the patient from all [place] treatmentfavidant [facility] hospital[facility]. This section includes future appointments and future orders which are active, pending orscheduled.Future Appointments This section includes appointments that were scheduled to occur 6 months from the date of the Encounter, up to a maximum of 20 appointments. The data comes from all [place] treatment facilities. Appointment Date/Time Appointment Type Appointment Facili ty Name Jul 10, 2021 08:00 AM AMBULATORY - NONE [facility] Jul 23, 2021 09:30 AM AMBULATORY - MEDICINE [facility] Aug 15, 2021 09:30 AM AMBULATORY - MEDICINE [facility] Aug 15, 2021 10:11 AM AMBULATORY - NEUROLOGY [facility] Sep 10, 2021 09:30 AM AMBULATORY - MEDICINE [facility] Sep 10, 2021 10:35 AM AMBULATORY - NEUROLOGY [facility] Oct 08, 2021 08:30 AM AMBULATORY - MEDICINE [facility] Oct 29, 2021 09:00 AM AMBULATORY - NONE [facility] Oct 29, 2021 09:15 AM AMBULATORY - NONE [facility] Oct 29, 2021 10:00 AM AMBULATORY - MEDICINE [facility] Oct 29, 2021 10:30 AM AMBULATORY - MEDICINE [facility] Nov 26, 2021 09:30 AM AMBULATORY - MEDICINE [facility] Nov 26, 2021 10:15 AM AMBULATORY - NONE [facility] Dec 18, 2021 10:30 AM AMBULATORY - NONE [facility] Dec 18, 2021 11:00 AM AMBULATORY - MEDICINE [facility] Dec 18, 2021 11:30 AM AMBULATORY - MEDICINE [facility] Dec 24, 2021 09:30 AM AMBULATORY - MEDICINE [facility] Lab Results: +/- 30 days of the encounter This section includes the Chemistry and Hematology Lab Results on record with [place] for the patient. Radiology Reports and Pathology Reports are provided separately, in subsequent sections.Lab Results This section contains the Chemistry/Hematology Results that were resulted 30 days before or 30 daysafter the date of the Encounter. Date/Time Source Result Type Result - Unit Interpretation Reference Range Comment Jun 25, 2021 09:15 AM [facility] PT/INR(ANTICOAG) Speci men Type: PLASMA No comment enter ed. Ordering Provid er: NAOMI STORY Report Released Date/Time: Jun 13, 2021 11:17 AM Reporting Lab: [facility] [address] [facility] [id number] Performing Lab: [facility] [address] [employer] [address] .INR 3.4 H 0.8-1.1 .PT 39.1 H 9.4-12.5 May 28, 2021 09:15 AM [facility] SEROTONIN Speci men Type: SERUM Comment: This t est was developed and its analytical performance characteristics have been determined by [employer] [place], [place]. It has not been cleared or approved by the U.[place] . Food and Drug Administration. This assay has been validated pursuant to the CLIA regulations and is used for clinical purposes. Test Performed by [facility], [employer] [facility], [address] [place] [address] Truman Doan M.D., Ph.D., Director of Laboratories , CLIA [id number] Ordering Provid er: LILI GARCIA Report Released Date/Time: Feb 28, 2021 09:32 AM Reporting Lab: [facility] [address] [employer] [address] Performing Lab: [address] SEROTONIN 1393 H 56-244 May 28, 2021 09:15 [facility] CHROMOGRANIN A(PORCUPINE) Spec imen Type: SERUM AM No comment enter ed. Ordering Provid er: LILI GARCIA Report Released Date/Time: Feb 28, 2021 09:32 AM Reporting Lab: [facility] [address] [employer] [address] Performing Lab: [facility] [address] [place] [address] CHROMOGRANIN A(ROSE) 52 <92 May 28, 2021 09:15 AM [facility] LD,TOTAL Specim en Type: PLASMA No comment enter ed. Ordering Provid er: LILI GARCIA Report Released Date/Time: Feb 28, 2021 09:32 AM Reporting Lab: [facility] [address] [facility] [address] Performing Lab: [facility] [address] [employer] [address] LD,TOTAL 201 125-220 May 28, 2021 09:15 [facility] HEMOGLOBIN A1C Specimen Type: BLOOD AM No comment enter ed. Ordering Provid er: SARIAH,CLAYTON M Report Released Date/Time: May 15, 2021 12:34 PM Reporting Lab: [facility] [address] [employer] [address] Performing Lab: [facility] [address] [employer] [address] HEMOGLOBIN A1C 5.9 4.0-6.0 May 28, 2021 09:15 AM [facility] PSA Specim en Type: SERUM No comment enter ed. Ordering Provid er: CLAYTON ROLLE Report Released Date/Time: May 15, 2021 12:34 PM Reporting Lab: [facility] [address] [employer] [address] Performing Lab: [facility] [address] [employer] [address] PSA 0.01 <4.00 May 28, 2021 [facility] LIPID PANEL,NON-FASTING Spec imen Type: PLASMA 09:15 AM No comment enter ed. Ordering Provid er: CLAYTON ROLLE Report Released Date/Time: May 15, 2021 12:34 PM Reporting Lab: [facility] [address] [employer] [address] Performing Lab: [facility] [address] [employer] [address] CHOLESTEROL 203 H <199 .HDL 58 >40 LDL CALCULATION 123 H <99 VLDL CALCULATION 22 <29 NON HDL CHOLESTEROL 145 H <129 TRIG(NON FASTING) 108 <149 May 28, 2021 [facility] COMPREHENSIVE METABOLIC Spec imen Type: PLASMA 09:15 AM PANEL+MG No comment enter ed. Ordering Provid er: LILI GARCIA Report Released Date/Time: Feb 28, 2021 09:32 AM Reporting Lab: [facility] [address] [employer] [address] Performing Lab: [facility] [address] [employer] [address] CREATININE 0.9 0.7-1.2 UREA NITROGEN 12 8-26 GLUCOSE 123 H 74-100 SODIUM 137 136-145 POTASSIUM 4.0 3.5-5.1 CHLORIDE 106 98-107 CO2 24 22-29 CALCIUM 9.3 8.4-10.2 PROTEIN,TOTAL 7.0 6.0-8.3 ALBUMIN 3.9 3.5-5.2 BILIRUBIN, TOTAL 0.8 0.2-1.2 MAGNESIUM 2.1 1.6-2.6 ANION GAP 7 5-15 ALKALINE PHOSPHATASE 72 40-150 ALT/SGPT 17 <55 AST/SGOT 17 <34 ESTIMATED GFR(eGFR) 82 >60 May 28, 2021 09:15 AM [facility] CBC & DIFF Specim en Type: BLOOD Comment: Sabina navarrete Differential Performed Ordering Provid er: LILI GARCIA Report Released Date/Time: Feb 28, 2021 09:32 AM Reporting Lab: [facility] [address] Performing Lab: [facility] [address] WBC 4.25 4.0-11.0 RBC 4.19 L 4.6-6.2 [...] Pulse Blood Respiratory SP02 Pain Height Weight Sukhwinder dy Source Pressure Rate Mass Index Jun 25, 97.9 F 93 101/68 16 /min 95 % 0 215.2 30 [place] 2020 10:07 /min mm[Hg] lb [place] AM [facility] Social History: Smoking Status (Most current) and Tobacco Use (All prior to encounter date) This section includes the most current, and the historical, smoking and tobacco-related health factors from the [facility] where the Encounter took place.Current Smoking Status This section includes the most current smoking, or tobacco-related health factor, from the [facility] where the Encounter took place. Date/Time Current Smoking Status Comment Facility May 15, 2021 10:00 AM [place]-TO[place] NEVER USED [place] [facility] Tobacco Use History This section includes a history of the smoking, or tobacco- related health factors, that were collected on or before the date of the Encounter. The data comes from the [facility] where the Encounter took place. Date/Time Smoking Status/Tobacco Use Comment [facility] Oct 05, 2019 10:05 AM [place]-TOBACCO NEVER USED [place] [facility] Oct 20, 2018 12:28 PM INPT NO TOBACCO USE IN LAST 30 DAYS [facility] Sep 15, 2018 01:21 PM VA-TOBACCO NEVER USED [place] [facility] Aug 11, 2017 08:54 AM LIFETIME NON-TOBACCO USER [facility] Jul 08, 2016 08:07 AM LIFETIME NON-TOBACCO USER [facility] May 09, 2015 02:31 PM LIFETIME NON-TOBACCO USER [facility] Apr 14, 2014 08:41 AM LIFETIME NON-TOBACCO USER [facility] Jan 06, 2007 08:51 AM LIFETIME NON-TOBACCO USER [facility] Encounter Notes: All associated encounter notes This section contains the clinical notes associated to the Encounter. Date/Time Encounter Note(s) Provider Source Jun 25, 2021 02:48 PM HEMATOLOGY AND ONCOLOGY NURSING OUTPAT IENT NOTE: JAN MCFADDEN [facility] LOCAL TITLE: HEME/ONC PROCEDURE CLINIC NURSING NOTE STANDARD TITLE: HEMATOLOGY AND ONCOLOGY NURSING OUTPATIENT NOTE DATE OF NOTE: JUN 25, 2021@14:48 ENTRY DATE: JUN 25, 2021@14:48:55 AUTHOR: JAN MCFADDEN EXP COSIGNER: URGENCY: STATUS: COMPLETED Date of Service: Jun Diagnosis: carcinoid Vital Signs: Height: 71.5 in [181.6 cm] ( 021 10:14) Weight: 215.2 lb [97.8 kg] (06/25/2021 10:07) Body Surface Area: 2.22 Temperature: 97.9 F [36.6 C] (06/25/2021 10:07) Blood Pressure (BP): 101/68 (06/25/2021 10:07) Pulse: 93 (06/25/2021 10:07) Respiration: 16 (06/25/2021 10:07) Physician: Dr. Starr [phone] Allergies: DIAL SOAP (Mar 25, 2007) NAPROXEN (February 05, 2011) Labs: CBC + Diff: WBC 4.25 (05/28/21) ABS NEUT 2.38 (05/28/21) HGB 14.2 (05/28/21) PLT 216 (05/28/21) Chemistry: SODIUM 137 (05/28/21) POTASSIUM 4.0 (05/28/21) CALCIUM 9.3 (05/28/21) MAGNESIUM 2.1 (05/28/21) CREATININE 0.9 (05/28/21) ALK PHOSPHATASE 72 (05/28/21) SGPT 17 (05/28/21) SGOT 17 (05/28/21) BILIRUBIN, TOTAL 0.8 (05/28/21) Tumor Markers: PSA 0.01 SERUM (05/28/21 09:15) Non chemo procedures SQ/IM Medication: Octreotide LAR IM Dosage: 20 mg Site: L glut Time: 1215 Patient Response/Status: Pt tolerated injection to L glut. Site covered with band aid. Pt left clinic ambulatory, no question s or concerns. DISCHARGED TO: Home at 1225 /mustapha/ JAN MCFADDEN RN Registered Nurse Signed: 06/25/2021 14:52
--- OUTSIDE RECORDS SUMMARY | 2022-06-06 11:43 | XMS_ITS | Encounter Summary ---
:1945 Author Organization Department [facility] rs Address [address] [place] [address] Support Name Relationship Address Phone Arti CORONEL Unavailable [address] [place] [address] ADITYA MALIN Unavailable [address] [place] [phone] [place] [address] Insurance Providers: All historical and current Section [...] MEDICARE MEDICARE PART May 15, PART A [id number] 800 HOMER HUNTER (WNR) (M) A 2008 94A [phone] ,ELLE MEDICARE MEDICARE PART May 15, PART B [id number] 800 HOMER HUNTER (WNR) (M) B 2008 94A [phone] ,ELLE Selected Encounter This section includes the information on record at [place] for the Encounter. Date/Time Encounter Type Encounter Reason Provider Source Description Jun 13, 2021 12:14 Outpatient [facility] DE JESUS PM Encounter CONSULT R IHE Encounter Template Text not used by [place] Plan of Treatment: Future Appointments (+ 6 [...] 20 appointments. The data comes from all [place] treatment facilities. Appointment Date/Time Appointment Type Appointment Facili ty Name Jun 25, 2021 10:00 AM AMBULATORY - MEDICINE [facility] Jun 25, 2021 10:30 AM AMBULATORY - MEDICINE [facility] Jul 10, 2021 08:00 AM AMBULATORY - NONE [facility] Jul 23, 2021 09:30 AM AMBULATORY - MEDICINE [facility] Aug 15, 2021 09:30 AM AMBULATORY - MEDICINE [facility] Aug 15, 2021 10:11 AM AMBULATORY - NEUROLOGY [facility] Sep 10, 2021 09:30 AM AMBULATORY - MEDICINE [facility] Sep 10, 2021 10:35 AM AMBULATORY - NEUROLOGY [facility] Oct 08, 2021 08:30 AM AMBULATORY - MEDICINE [facility] Oct 29, 2021 09:00 AM AMBULATORY - NONE [facility] Oct 29, 2021 09:15 AM AMBULATORY NONE [facility] Oct 29, 2021 10:00 AM AMBULATORY - MEDICINE [facility] Oct 29, 2021 10:30 AM AMBULATORY - MEDICINE [facility] Nov 26, 2021 09:30 AM AMBULATORY - MEDICINE [facility] Nov 26, 2021 10:15 AM AMBULATORY - NONE [facility] Lab Results: +/- 30 days of the encounter This section includes the Chemistry and Hematology Lab Results on record with [place] for the patient. Radiology Reports and Pathology Reports are provided separately, in subsequent sections.Lab Results This section contains the Chemistry/Hematology Results that were resulted 30 days before or 30 daysafter the date of the Encounter. Date/Time Source Result Type Result - Unit Interpretation Reference Range Comment Jun 25, 2021 09:15 AM [facility] PT/INR(ANTICOAG) Speci men Type: PLASMA No comment enter ed. Ordering Provid er: NAOMI STORY Report Released Date/Time: Jun 13, 2021 11:17 AM Reporting Lab: [facility] [address] [facility] [address] Performing Lab: [facility] [address] [facility] [address] .INR 3.4 H 0.8-1.1 .PT 39.1 H 9.4-12.5 May 28, 2021 09:15 AM [facility] SEROTONIN Specim en Type: SERUM Comment: This t est was developed and its analytical performance characteristics have been determined by [place] It has not been cleared or approved by the U.S . Food and Drug Administration. This assay has been validated pursuant to the CLIA regulations and is used for clinical purposes. Test Performed by [facility], [employer] [facility], [address] [place] [address] Truman Doan M.D., Ph.D., Director of Laboratories , CLIA [id number] Ordering Provid er: LILI GARCIA Report Released Date/Time: Feb 28, 2021 09:32 AM Reporting Lab: [facility] [address] [facility] [address] Performing Lab: [address] SEROTONIN 1393 H 56-244 May 28, 2021 09:15 [facility] CHROMOGRANIN A(CHULA) Spec imen Type: SERUM AM No comment enter ed. Ordering Provid er: LILI GARCIA Report Released Date/Time: Feb 28, 2021 09:32 AM Reporting Lab: [facility] [address] [facility] [address] Performing Lab: [facility] [address] [place] [facility] [address] CHROMOGRANIN A(CHULA) 52 <92 May 28, 2021 09:15 AM [facility] LD,TOTAL Specim en Type: PLASMA No comment enter ed. Ordering Provid er: LILI GARCIA Report Released Date/Time: Feb 28, 2021 09:32 AM Reporting Lab: [facility] [address] [facility] [address] Performing Lab: [facility] [address] [facility] [address] LD,TOTAL 201 125-220 May 28, 2021 09:15 [facility] HEMOGLOBIN A1C Specimen Type: BLOOD AM No comment enter ed. Ordering Provid er: CLAYTON ROLLE Report Released Date/Time: May 15, 2021 12:34 PM Reporting Lab: [facility] [address] [facility] [address] Performing Lab: [facility] [address] [facility] [address] HEMOGLOBIN A1C 5.9 4.0-6.0 May 28, 2021 09:15 AM [facility] PSA Specim en Type: SERUM No comment enter ed. Ordering Provid er: CLAYTON ROLLE Report Released Date/Time: May 15, 2021 12:34 PM Reporting Lab: [facility] [address] Performing Lab: [facility] [address] PSA 0.01 <4.00 May 28, 2021 [facility] LIPID PANEL,NON-FASTING Spec imen Type: PLASMA 09:15 AM No comment enter ed. Ordering Provid er: CLAYTON ROLLE Report Released Date/Time: May 15, 2021 12:34 PM Reporting Lab: [facility] [address] Performing Lab: [facility] [address] CHOLESTEROL 203 H <199 .HDL 58 >40 LDL CALCULATION 123 H <99 VLDL CALCULATION 22 <29 NON HDL CHOLESTEROL 145 H <129 TRIG(NON FASTING) 108 <149 May 28, 2021 [facility] COMPREHENSIVE METABOLIC Spec imen Type: PLASMA 09:15 AM PANEL+MG No comment enter ed. Ordering Provid er: LILI GARCIA Report Released Date/Time: Feb 28, 2021 09:32 AM Reporting Lab: [facility] [address] Performing Lab: [facility] [address] CREATININE 0.9 0.7-1.2 UREA NITROGEN 12 8-26 GLUCOSE 123 H 74-100 SODIUM 137 136-145 POTASSIUM 4.0 3.5-5.1 CHLORIDE 106 98-107 CO2 24 22-29 CALCIUM 9.3 8.4-10.2 PROTEIN,TOTAL 7.0 6.0-8.3 ALBUMIN 3.9 3.5-5.2 BILIRUBIN, TOTAL 0.8 0.2-1.2 MAGNESIUM 2.1 1.6-2.6 ANION GAP 7 5-15 ALKALINE PHOSPHATASE 72 40-150 ALT/SGPT 17 <55 AST/SGOT 17 <34 ESTIMATED GFR(eGFR) 82 >60 May 28, 2021 09:15 AM [facility] CBC & DIFF Specim en Type: BLOOD Comment: Automa rosalba Differential Performed Ordering Provid er: LILI GARCIA Report Released Date/Time: Feb 28, 2021 09:32 AM Reporting Lab: [facility] [address] Performing Lab: [facility] [address] WBC 4.25 4.0-11.0 RBC 4.19 L 4.6-6.2 [...] smoking and tobacco-related health factors from the [place] facility where the Encounter took place.Current Smoking Status This section includes the most current smoking, or tobacco-related health factor, from the [place] facility where the Encounter took place. Date/Time Current Smoking Status Comment Facility May 15, 2021 10:00 AM [place]-TOBACCO NEVER USED [place] [facility] Tobacco Use History This section includes a history of the smoking, or tobacco- related health factors, that were collected on or before the date of the Encounter. The data comes from the [place] facility where the Encounter took place. Date/Time Smoking Status/Tobacco Use Comment [facility] Oct 05, 2019 10:05 AM [place]-TOBACCO [place] USED [place] [facility] Oct 20, 2018 12:28 PM INPT NO TOBACCO USE IN LAST 30 DAYS [facility] Sep 15, 2018 01:21 PM [place]-TOBACCO NEVER USED [place] [facility] Aug 11, 2017 08:54 AM LIFETIME NON-TOBACCO USER [facility] Jul 08, 2016 08:07 AM LIFETIME NON-TOBACCO USER [facility] May 09, 2015 02:31 PM LIFETIME NON-TOBACCO USER [facility] Apr 14, 2014 08:41 AM LIFETIME NON-TOBACCO USER [facility] Jan 06, 2007 08:51 AM LIFETIME NON-TOBACCO USER [facility] Encounter Notes: All associated encounter notes This section contains the clinical notes associated to the Encounter. Date/Time Encounter Note(s) Provider Source Jun 13, 2021 12:14 PM NONVA NOTE: WILL DE JESUS DENIS [facility] LOCAL TITLE: COMMUNITY CARE-CARE COORDINATION P PAM NOTE STANDARD TITLE: NONVA NOTE DATE OF NOTE: JUN 13, 2021@12:14 ENTRY DATE: JUN 13, 2021@12:14:10 AUTHOR: WILL DE JESUS EXP COSIGNER: URGENCY: STATUS: COMPLETED Community Care Consult: COMMUNITY CARE-LAB Consult No: [id number] Chief Complaint: INRs on warfarin does not have a caregiver Level of Care Coordination Moderate Care Coordination was determined from: Chart Review Facility Community Care Office Contact Care Coordination Point of Contact: Will farrell RN Phone Number: [phone] Services: Basic Care Coordination Services Monitoring and coordination of Rehab/PT Service s Direct communication to referring provider Care management, if appropriate Plan: CC ODALIS to proceed with scheduling this care /es/ WILL DE JESUS REGISTERED NURSE Signed: 06/13/2021 12:15
--- OUTSIDE RECORDS SUMMARY | 2022-06-06 11:43 | XMS_ITS | Encounter Summary ---
:1945 Author Organization Department [facility] rs Address [address] [place] [address] Support Name Relationship Address Phone Arti CORONEL Unavailable [address] [facility] [place] [address] ADITYA MALIN Unavailable [address] [place] [phone] [place] [address] Insurance Providers: All historical and current Section [...] MEDICARE MEDICARE PART May 15, PART A [id number] 800 HOMER HUNTER (WNR) (M) A 2008 94A [phone] ,ELLE MEDICARE MEDICARE PART May 15, PART B [id number] 800 HOMER HUNTER (WNR) (M) B 2008 94A [phone] ,ELLE Selected Encounter This section includes the information on record at [place] for the Encounter. Date/Time Encounter Type Encounter Reason Provider Source Description Jun 13, 2021 HC PRO PHONE TELEPHONE/MEDICIN ICD-10-CM Z51.81 NAOMI STORY 10:55 AM CALL 11-20 MIN E Encounter for A therapeutic drug level monitoring with Provider Comments: Encounter for therapeutic drug level monitoring IHE Encounter Template Text not used by [place] Assessments - Encounter Diagnoses This section includes the primary and secondary diagnoses documented for the Encounter. 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 This section includes future appointments and future orders which are active, pending orscheduled.Future Appointments This section includes appointments that were scheduled to occur 6 months from the date of the Encounter, up to a maximum of 20 appointments. The data comes from all [place] treatment facilities. Appointment Date/Time Appointment Type Appointment Facili ty Name Jun 25, 2021 10:00 AM AMBULATORY - MEDICINE [facility] Jun 25, 2021 10:30 AM AMBULATORY - MEDICINE [facility] Jul 10, 2021 08:00 AM AMBULATORY - NONE [facility] Jul 23, 2021 09:30 AM AMBULATORY - MEDICINE [facility] Aug 15, 2021 09:30 AM AMBULATORY - MEDICINE [facility] Aug 15, 2021 10:11 AM AMBULATORY - NEUROLOGY [facility] Sep 10, 2021 09:30 AM AMBULATORY - MEDICINE [facility] Sep 10, 2021 10:35 AM AMBULATORY - NEUROLOGY [facility] Oct 08, 2021 08:30 AM AMBULATORY - MEDICINE [facility] Oct 29, 2021 09:00 AM AMBULATORY - NONE [facility] Oct 29, 2021 09:15 AM AMBULATORY - NONE [facility] Oct 29, 2021 10:00 AM AMBULATORY - MEDICINE [facility] Oct 29, 2021 10:30 AM AMBULATORY - MEDICINE [facility] Nov 26, 2021 09:30 AM AMBULATORY - MEDICINE [facility] Nov 26, 2021 10:15 AM AMBULATORY - NONE [facility] Lab Results: +/- 30 days of the encounter This section includes the Chemistry and Hematology Lab Results on record with [place] for the patient. Radiology Reports and Pathology Reports are provided separately, in subsequent sections.Lab Results This section contains the Chemistry/Hematology Results that were resulted 30 days before or 30 daysafter the date of the Encounter. Date/Time Source Result Type Result - Unit Interpretation Reference Range Comment Jun 25, 2021 09:15 AM [facility] PT/INR(ANTICOAG) Speci men Type: PLASMA No comment enter ed. Ordering Provid er: NAOMI STORY Report Released Date/Time: Jun 13, 2021 11:17 AM Reporting Lab: [facility] [address] [facility] [address] Performing Lab: [facility] [address] [facility] [address] .INR 3.4 H 0.8-1.1 .PT 39.1 H 9.4-12.5 May 28, 2021 09:15 AM [facility] SEROTONIN Specim en Type: SERUM Comment: This t est was developed and its analytical performance characteristics have been determined by [facility] [place], [place]. It has not been cleared or approved by the U.S . Food and Drug Administration. This assay has been validated pursuant to the CLIA regulations and is used for clinical purposes. Test Performed by [facility], [facility], [address] [place] [address] Truman Doan M.D., Ph.D., Director of [employer] , CLIA [id number] Ordering Provid er: LILI GARCIA Report Released Date/Time: Feb 28, 2021 09:32 AM Reporting Lab: [facility] [address] [facility] [address] Performing Lab: [address] SEROTONIN 1393 H 56-244 May 28, 2021 09:15 [facility] CHROMOGRANIN A(RIVERTON) Spec imen Type: SERUM AM No comment enter ed. Ordering Provid er: LILI GARCIA Report Released Date/Time: Feb 28, 2021 09:32 AM Reporting Lab: [facility] [address] [facility] [address] Performing Lab: [facility] [address] [place] [facility] [address] CHROMOGRANIN A(ROSE) 52 <92 May 28, 2021 09:15 AM [facility] LD,TOTAL Specim en Type: PLASMA No comment enter ed. Ordering Provid er: LILI GARCIA Report Released Date/Time: Feb 28, 2021 09:32 AM Reporting Lab: [facility] [address] [facility] [address] Performing Lab: [facility] [address] [facility] [address] LD,TOTAL 201 125-220 May 28, 2021 09:15 AM [facility] PSA Specim en Type: SERUM No comment enter ed. Ordering Provid er: CLAYTON ROLLE Report Released Date/Time: May 15, 2021 12:34 PM Reporting Lab: [facility] [address] [facility] [address] Performing Lab: [facility] [address] [facility] [address] PSA 0.01 <4.00 May 28, 2021 09:15 [facility] HEMOGLOBIN A1C Specimen Type: BLOOD AM No comment enter ed. Ordering Provid er: CLAYTON ROLLE Report Released Date/Time: May 15, 2021 12:34 PM Reporting Lab: [facility] [address] [facility] [address] Performing Lab: [facility] [address] HEMOGLOBIN A1C 5.9 4.0-6.0 May 28, 2021 [facility] COMPREHENSIVE METABOLIC Spec imen Type: PLASMA 09:15 AM PANEL+MG No comment enter ed. Ordering Provid er: LILI GARCIA Report Released Date/Time: Feb 28, 2021 09:32 AM Reporting Lab: [facility] [address] [facility] [address] Performing Lab: [facility] [address] CREATININE 0.9 0.7-1.2 UREA NITROGEN 12 8-26 GLUCOSE 123 H 74-100 SODIUM 137 136-145 POTASSIUM 4.0 3.5-5.1 CHLORIDE 106 98-107 CO2 24 22-29 CALCIUM 9.3 8.4-10.2 PROTEIN,TOTAL 7.0 6.0-8.3 ALBUMIN 3.9 3.5-5.2 BILIRUBIN, TOTAL 0.8 0.2-1.2 MAGNESIUM 2.1 1.6-2.6 ANION GAP 7 5-15 ALKALINE PHOSPHATASE 72 40-150 ALT/SGPT 17 <55 AST/SGOT 17 <34 ESTIMATED GFR(eGFR) 82 >60 May 28, 2021 09:15 AM [facility] CBC & DIFF Specim en Type: BLOOD Comment: Automa rosalba Differential Performed Ordering Provid er: LILI GARCIA Report Released Date/Time: Feb 28, 2021 09:32 AM Reporting Lab: [facility] [address] Performing Lab: [facility] [address] WBC 4.25 4.0-11.0 RBC 4.19 L 4.6-6.2 [...] IG(META,MYELO,PRO) 0.2 ABS IMMATURE GRAN 0.01 0-0.1 May 28, 2021 [facility] LIPID PANEL,NON-FASTING Spec imen Type: PLASMA 09:15 AM No comment enter ed. Ordering Provid er: CLAYTON ROLLE Report Released Date/Time: May 15, 2021 12:34 PM Reporting Lab: [facility] [address] Performing Lab: [facility] [address] CHOLESTEROL 203 H <199 .HDL 58 >40 LDL CALCULATION 123 H <99 VLDL CALCULATION 22 <29 NON HDL CHOLESTEROL 145 H <129 TRIG(NON FASTING) 108 <149 Social History: Smoking Status (Most current) and Tobacco Use (All prior to encounter date) This section includes the most current, and the historical, smoking and tobacco-related health factors from the [facility] where the Encounter took place.Current Smoking Status This section includes the most current smoking, or tobacco-related health factor, from the [facility] where the Encounter took place. Date/Time Current Smoking Status Comment Facility May 15, 2021 10:00 AM [place]-TOBACCO NEVER USED [facility] Tobacco Use History This section includes a history of the smoking, or tobacco- related health factors, that were collected on or before the date of the Encounter. The data comes from the [place] facility where the Encounter took place. Date/Time Smoking Status/Tobacco Use Comment [facility] Oct 05, 2019 10:05 AM [place] US[place] [facility] Oct 20, 2018 12:28 PM INPT NO TOBACCO USE IN LAST 30 DAYS [facility] Sep 15, 2018 01:21 PM [place]-TOBACCO NEVER USED [place] [facility] Aug 11, 2017 08:54 AM LIFETIME NON-TOBACCO USER [facility] Jul 08, 2016 08:07 AM LIFETIME NON-TOBACCO USER [facility] May 09, 2015 02:31 PM LIFETIME NON-TOBACCO USER [facility] Apr 14, 2014 08:41 AM LIFETIME NON-TOBACCO USER [facility] Jan 06, 2007 08:51 AM LIFETIME NON-TOBACCO USER [facility] Encounter Notes: All associated encounter notes This section contains the clinical notes associated to the Encounter. Date/Time Encounter Note(s) Provider Source Jun 13, 2021 10:55 AM PHARMACY OUTPATIENT MEDICATION MGT NOTE: NAOMI LYNN [facility] LOCAL TITLE: PHARMACY ANTICOAGULATION CLINIC F/ U STANDARD TITLE: PHARMACY OUTPATIENT MEDICATION M GT NOTE DATE OF NOTE: JUN 13, 2021@10:55 ENTRY DATE: JUN 13, 2021@10:56:01 AUTHOR: NAOMI STORY EXP COSIGNER: URGENCY: STATUS: COMPLETED Indication: A-fib [...] He sees a another primary dr in [place], Dr Yancey once yearly [facility] He sought evalua tion at [facility] earlier this year to see if any [...] Care Coordination: Care Coordination: - Local Lab: [facility] P: [phone]; F: [phone] , F: [phone] *New [facility] SO sent 06/13/21 *[facility] labs valid: 03/27/21-09/23/21, new consult placed 06/13/21 SUBJECTIVE/OBJECTIVE: - History obtained from patient today at . No: Health changes: No: Pending procedures: No: Bleeding or thromboembolic signs/symptoms or falls: No: Medication changes/significant drug interact ions No: Dietary changes: - Baseline vit K: ~1 serving of greens every we ek (usually broccoli) Yes: Alcohol/tobacco use: - Baseline ~1-2 drinks per week - Extra alcohol last week does not plan to cont inue No: Dosing discrepancies: Warfarin dose: 7.5mg TuThSa, 5mg all other days (42.5mg/wk); AM Collection DT Spec *INR mg in last 7 days 06/11/2021 local 3.44 42.5 alcohol 04/30/2021 local [...] 44.0 218 99.3 6 0.8 19.7 ASSESSMENT/PLAN: SupraTherapeutic INR. D/t increased etoh this pa st week. Generally stable pattern. Continue current dose. Next INR in 2 we eks - Warfarin dose: CONTINUE: 7.5mg TuThSa, 5mg all other days (42.5mg/wk) - Next INR: 06/25/21 @1100 with hem/onc (usually local lab) w/ tele/letter f/u - Rx assessed for adequate refills Time spent: 15 min Education on Treatment Plan: Patient indicates r eadiness to learn, verbalizes understanding, agreement and satisfac tion with the treatment plan. Denies further questions. /mustapha/ NAOMI STORY Pharm.D., BCPS Anticoagulation Clinical Pharmacist Signed: 06/13/2021 11:18
--- OUTSIDE RECORDS SUMMARY | 2022-06-06 11:43 | XMS_ITS | Encounter Summary ---
:1945 Author Organization Department [facility] Address [address] [place] [id number] Support Name Relationship Address Phone Arti CORONEL Unavailable [address] [place] [address] ADITYA MALIN Unavailable [address] HUNG SHAWANDA [phone] [place] [id number] Insurance Providers: All historical and current Section [...] MEDICARE MEDICARE PART May 15, PART A [id number] 800 HOMER HUNTER (WNR) (M) A 2008 [id number] [phone] ,ELLE MEDICARE MEDICARE PART May 15, PART B [id number] 800 HOMER HUNTER (WNR) (M) B 2008 [id number] ,ELLE Selected Encounter This section includes the information on record at [place] for the Encounter. Date/Time Encounter Type Encounter Description Reason Provider Source Jun 13, 2021 10:24 Outpatient Encounter CLINICAL PHARMACY AM [facility] Encounter Template Text not used by [place] Plan of Treatment: Future Appointments (+ 6 months) and Future Tests (+/- 45 days) The Plan of Treatment section includes future care activities for the patient from all [place] treatmentfacilities. This section includes future appointments and future orders which are active, pending orscheduled.Future Appointments This section includes appointments that were scheduled to occur 6 months from the date of the Encounter, up to a maximum of 20 appointments. The data comes from all [place] treatment facilities. Appointment Date/Time Appointment Type Appointment Facili ty Name Jun 25, 2021 10:00 AM AMBULATORY - MEDICINE [facility] Jun 25, 2021 10:30 AM AMBULATORY - MEDICINE [facility] Jul 10, 2021 08:00 AM AMBULATORY - NONE [facility] Jul 23, 2021 09:30 AM AMBULATORY - MEDICINE [facility] Aug 15, 2021 09:30 AM AMBULATORY - MEDICINE [facility] Aug 15, 2021 10:11 AM AMBULATORY - NEUROLOGY [facility] Sep 10, 2021 09:30 AM AMBULATORY - MEDICINE [facility] Sep 10, 2021 10:35 AM AMBULATORY - NEUROLOGY [facility] Oct 08, 2021 08:30 AM AMBULATORY - MEDICINE [facility] Oct 29, 2021 09:00 AM AMBULATORY - NONE [facility] Oct 29, 2021 09:15 AM AMBULATORY - NONE [facility] Oct 29, 2021 10:00 AM AMBULATORY - MEDICINE [facility] Oct 29, 2021 10:30 AM AMBULATORY - MEDICINE [facility] Nov 26, 2021 09:30 AM AMBULATORY - MEDICINE [facility] Nov 26, 2021 10:15 AM AMBULATORY - NONE [facility] Lab Results: +/- 30 days of the encounter This section includes the Chemistry and Hematology Lab Results on record with [place] for the patient. Radiology Reports and Pathology Reports are provided separately, in subsequent sections.Lab Results This section contains the Chemistry/Hematology Results that were resulted 30 days before or 30 daysafter the date of the Encounter. Date/Time Source Result Type Result - Unit Interpretation Reference Range Comment Jun 25, 2021 09:15 AM [facility] PT/INR(ANTICOAG) Speci men Type: PLASMA No comment enter ed. Ordering Provid er: NAOMI STORY Report Released Date/Time: Jun 13, 2021 11:17 AM Reporting Lab: [facility] [address] [facility] [address] Performing Lab: [facility] [address] .INR 3.4 H 0.8-1.1 .PT 39.1 H 9.4-12.5 May 28, 2021 09:15 AM [facility] SEROTONIN Specim en Type: SERUM Comment: This t est was developed and its analytical performance characteristics have been determined by [employer] [place], [place]. It has not been cleared or approved by the U.S . Food and Drug Administration. This assay has been validated pursuant to the CLIA regulations and is used for clinical purposes. Test Performed by [facility], [employer] [facility], [address] [place] [address] Truman Doan M.D., Ph.D., Director of Laboratories , CLIA [id number] Ordering Provid er: LILI GARCIA Report Released Date/Time: Feb 28, 2021 09:32 AM Reporting Lab: [facility] [address] [facility] [address] Performing Lab: [facility] [address] [facility] [place] 1393 H 56-244 May 28, 2021 09:15 [facility] CHROMOGRANIN A(BRAMWELL) Spec imen Type: SERUM AM No comment enter ed. Ordering Provid er: LILI GARCIA Report Released Date/Time: Feb 28, 2021 09:32 AM Reporting Lab: [facility] [address] [facility] [address] Performing Lab: [facility] [address] [facility] [address] CHROMOGRANIN A(BRAMWELL) 52 <92 May 28, 2021 09:15 AM [facility] LD,TOTAL Specim en Type: PLASMA No comment enter ed. Ordering Provid er: LILI GARCIA Report Released Date/Time: Feb 28, 2021 09:32 AM Reporting Lab: [facility] [address] [facility] [address] Performing Lab: [facility] [address] [facility] [address] LD,TOTAL 201 125-220 May 28, 2021 09:15 [facility] HEMOGLOBIN A1C Specimen Type: BLOOD AM No comment enter ed. Ordering Provid er: CLAYTON ROLLE Report Released Date/Time: May 15, 2021 12:34 PM Reporting Lab: [facility] [address] [facility] [address] Performing Lab: [facility] [address] [facility] [address] HEMOGLOBIN A1C 5.9 4.0-6.0 May 28, 2021 09:15 AM [facility] PSA Specim en Type: SERUM No comment enter ed. Ordering Provid er: CLAYTON ROLLE Report Released Date/Time: May 15, 2021 12:34 PM Reporting Lab: [facility] [address] [facility] [address] Performing Lab: [facility] [address] [facility] [address] PSA 0.01 <4.00 May 28, 2021 [facility] LIPID PANEL,NON-FASTING Spec imen Type: PLASMA 09:15 AM No comment enter ed. Ordering Provid er: CLAYTON ROLLE Report Released Date/Time: May 15, 2021 12:34 PM Reporting Lab: [facility] [address] [facility] [address] Performing Lab: [facility] [address] CHOLESTEROL 203 H <199 .HDL 58 >40 LDL CALCULATION 123 H <99 VLDL CALCULATION 22 <29 NON HDL CHOLESTEROL 145 H <129 TRIG(NON FASTING) 108 <149 May 28, 2021 [facility] COMPREHENSIVE METABOLIC Spec imen Type: PLASMA 09:15 AM PANEL+MG No comment enter ed. Ordering Provid er: LILI GARCIA Report Released Date/Time: Feb 28, 2021 09:32 AM Reporting Lab: [facility] [address] [facility] [address] Performing Lab: [facility] [address] CREATININE 0.9 0.7-1.2 UREA NITROGEN 12 8-26 GLUCOSE 123 H 74-100 SODIUM 137 136-145 POTASSIUM 4.0 3.5-5.1 CHLORIDE 106 98-107 CO2 24 22-29 CALCIUM 9.3 8.4-10.2 PROTEIN,TOTAL 7.0 6.0-8.3 ALBUMIN 3.9 3.5-5.2 BILIRUBIN, TOTAL 0.8 0.2-1.2 MAGNESIUM 2.1 1.6-2.6 ANION GAP 7 5-15 ALKALINE PHOSPHATASE 72 40-150 ALT/SGPT 17 <55 AST/SGOT 17 <34 ESTIMATED GFR(eGFR) 82 >60 May 28, 2021 09:15 AM [facility] CBC & DIFF Specim en Type: BLOOD Comment: Automa rosalba Differential Performed Ordering Provid er: LILI GARCIA Report Released Date/Time: Feb 28, 2021 09:32 AM Reporting Lab: [facility] [address] Performing Lab: [facility] [address] WBC 4.25 4.0-11.0 RBC 4.19 L 4.6-6.2 [...] smoking and tobacco-related health factors from the [place] facility where the Encounter took place.Current Smoking Status This section includes the most current smoking, or tobacco-related health factor, from the [place] facility where the Encounter took place. Date/Time Current Smoking Status Comment Facility May 15, 2021 10:00 AM [place]-TOBACCO NEVER USED [place] [facility] Tobacco Use History This section includes a history of the smoking, or tobacco- related health factors, that were collected on or before the date of the Encounter. The data comes from the [place] facility where the Encounter took place. Date/Time Smoking Status/Tobacco Use Comment [facility] Oct 05, 2019 10:05 AM [place] USED [place] [facility] Oct 20, 2018 12:28 PM INPT NO TOBACCO USE IN LAST 30 DAYS [facility] Sep 15, 2018 01:21 PM [place]-TOBACCO NEVER USED [place] [facility] Aug 11, 2017 08:54 AM LIFETIME NON-TOBACCO USER [facility] Jul 08, 2016 08:07 AM LIFETIME NON-TOBACCO USER [facility] May 09, 2015 02:31 PM LIFETIME NON-TOBACCO USER [facility] Apr 14, 2014 08:41 AM LIFETIME NON-TOBACCO USER [facility] Jan 06, 2007 08:51 AM LIFETIME NON-TOBACCO USER [facility] Encounter Notes: All associated encounter notes This section contains the clinical notes associated to the Encounter. Date/Time Encounter Note(s) Provider Source Jun 13, 2021 10:24 AM PHARMACY NOTE: LELA GUZMAN [facility] LOCAL TITLE: ANTICOAG ENTRY OF OUTSIDE LABS STANDARD TITLE: PHARMACY NOTE DATE OF NOTE: JUN 13, 2021@10:24 ENTRY DATE: JUN 13, 2021@10:24:08 AUTHOR: LELA GUZMAN EXP COSIGNER: URGENCY: STATUS: COMPLETED INR: Date: June 11, 2021 Results: 3.44 Location: [facility] /mustapha/ LELA GUZMAN Outpatient [facility] Signed: 06/13/2021 10:25 Receipt Acknowledged By: * AWAITING SIGNATURE * LEONOR ARRIOLA
--- OUTSIDE RECORDS SUMMARY | 2022-06-06 11:44 | XMS_ITS | Encounter Summary ---
:1945 Author Organization Department of [facility] rs Address [address] [place] [address] Support Name Relationship Address Phone Arti CORONEL Unavailable [address] [place] [address] ADITYA MALIN Unavailable [address] SHAWANDA [phone] [place] [id number] Insurance Providers: All historical and current Section [...] MEDICARE MEDICARE PART May 15, PART A [id number] 800 HOMER HUNTER (WNR) (M) A 2008 94A [phone] ,ELLE MEDICARE MEDICARE PART May 15, PART B [id number] 800 HOMER HUNTER (WNR) (M) B 2008 94A [phone] ,ELLE Selected Encounter This section includes the information on record at [place] for the Encounter. Date/Time Encounter Type Encounter Description Reason Provider Source Jun 11, 2021 12:00 Outpatient Encounter EVENT (HISTORICAL) AM [...] 25, 2021 10:00 AM AMBULATORY - MEDICINE [facility] Jun 25, 2021 10:30 AM AMBULATORY - MEDICINE [facility] Jul 10, 2021 08:00 AM AMBULATORY - NONE [facility] Jul 23, 2021 09:30 AM AMBULATORY - MEDICINE [facility] Aug 15, 2021 09:30 AM AMBULATORY - MEDICINE [facility] Aug 15, 2021 10:11 AM AMBULATORY - NEUROLOGY [facility] Sep 10, 2021 09:30 AM AMBULATORY - MEDICINE [facility] Sep 10, 2021 10:35 AM AMBULATORY - NEUROLOGY [facility] Oct 08, 2021 08:30 AM AMBULATORY - MEDICINE [facility] Oct 29, 2021 09:00 AM AMBULATORY - NONE [facility] Oct 29, 2021 09:15 AM AMBULATORY - NONE [facility] Oct 29, 2021 10:00 AM AMBULATORY - MEDICINE [facility] Oct 29, 2021 10:30 AM AMBULATORY - MEDICINE [facility] Nov 26, 2021 09:30 AM AMBULATORY - MEDICINE [facility] Nov 26, 2021 10:15 AM AMBULATORY - NONE [facility] Lab Results: +/- 30 days of [...] Range Comment Jun 25, 2021 09:15 AM [facility] PT/INR(ANTICOAG) Speci men Type: PLASMA No comment enter ed. Ordering Provid er: NAOMI STORY Report Released Date/Time: Jun 13, 2021 11:17 AM Reporting Lab: [facility] [address] [facility] [address] Performing Lab: [facility] [address] [facility] [address] .INR 3.4 H 0.8-1.1 .PT 39.1 H 9.4-12.5 May 28, 2021 09:15 AM [facility] SEROTONIN Specim en Type: SERUM Comment: This t est was developed and its analytical performance characteristics have been determined by [employer] [facility] [place], [place]. It has not been cleared or approved by the U.S . Food and Drug Administration. This assay has been validated pursuant to the CLIA regulations and is used for clinical purposes. Test Performed by [facility], [employer], [address] [place] [address] Truman Doan M.D., Ph.D., Director of Laboratories , CLIA [id number] Ordering Provid er: LILI GARCIA Report Released Date/Time: Feb 28, 2021 09:32 AM Reporting Lab: [facility] [address] [facility] [address] Performing Lab: [address] [place] 1393 H 56-244 May 28, 2021 09:15 [facility] CHROMOGRANIN A(CASA) Spec imen Type: SERUM AM No comment enter ed. Ordering Provid er: LILI GARCIA Report Released Date/Time: Feb 28, 2021 09:32 AM Reporting Lab: [facility] [address] [facility] [address] Performing Lab: [facility] [address] [facility] [address] CHROMOGRANIN A(CASA) 52 <92 May 28, 2021 09:15 AM [facility] LD,TOTAL Specim en Type: PLASMA No comment enter ed. Ordering Provid er: LILI GARCIA Report Released Date/Time: Feb 28, 2021 09:32 AM Reporting Lab: [facility] [address] [facility] [address] Performing Lab: [facility] [address] [facility] [address] LD,TOTAL 201 125-220 May 28, 2021 09:15 [facility] HEMOGLOBIN A1C Specimen Type: BLOOD AM No comment enter ed. Ordering Provid er: CLAYTON ROLLE Report Released Date/Time: May 15, 2021 12:34 PM Reporting Lab: [facility] [address] [facility] [address] Performing Lab: [facility] [address] [facility] [address] HEMOGLOBIN A1C 5.9 4.0-6.0 May 28, 2021 09:15 AM [facility] PSA Specim en Type: SERUM No comment enter ed. Ordering Provid er: CLAYTON ROLLE Report Released Date/Time: May 15, 2021 12:34 PM Reporting Lab: [facility] [address] [facility] [address] Performing Lab: [facility] [address] [facility] [address] PSA 0.01 <4.00 May 28, 2021 [facility] COMPREHENSIVE METABOLIC Spec imen Type: PLASMA 09:15 AM PANEL+MG No comment enter ed. Ordering Provid er: LILI GARCIA Report Released Date/Time: Feb 28, 2021 09:32 AM Reporting Lab: [facility] [address] [facility] [address] Performing Lab: [facility] [address] [facility] [address] CREATININE 0.9 0.7-1.2 UREA NITROGEN 12 8-26 GLUCOSE 123 H 74-100 SODIUM 137 136-145 POTASSIUM 4.0 3.5-5.1 CHLORIDE 106 98-107 CO2 24 22-29 CALCIUM 9.3 8.4-10.2 PROTEIN,TOTAL 7.0 6.0-8.3 ALBUMIN 3.9 3.5-5.2 BILIRUBIN, TOTAL 0.8 0.2-1.2 MAGNESIUM 2.1 1.6-2.6 ANION GAP 7 5-15 ALKALINE PHOSPHATASE 72 40-150 ALT/SGPT 17 <55 AST/SGOT 17 <34 ESTIMATED GFR(eGFR) 82 >60 May 28, 2021 [facility] LIPID PANEL,NON-FASTING Spec imen Type: PLASMA 09:15 AM No comment enter ed. Ordering Provid er: CLAYTON ROLLE Report Released Date/Time: May 15, 2021 12:34 PM Reporting Lab: [facility] [address] [facility] [address] Performing Lab: [facility] [address] [facility] [address] CHOLESTEROL 203 H <199 .HDL 58 >40 LDL CALCULATION 123 H <99 VLDL CALCULATION 22 <29 NON HDL CHOLESTEROL 145 H <129 TRIG(NON FASTING) 108 <149 May 28, 2021 09:15 AM [facility] CBC & DIFF Specim en Type: BLOOD Comment: Automa rosalba Differential Performed Ordering Provid er: LILI GARCIA Report Released Date/Time: Feb 28, 2021 09:32 AM Reporting Lab: [facility] [address] [facility] [address] Performing Lab: [facility] [address] [facility] [address] WBC 4.25 4.0-11.0 RBC 4.19 L 4.6-6.2 [...] smoking, or tobacco-related health factor, from the [place] facility where the Encounter took place. Date/Time Current Smoking Status Comment Facility May 15, 2021 10:00 AM [place]-TOB[place] NEVER USED [place] [facility] Tobacco Use History This section includes a history of the smoking, or tobacco- related health factors, that were collected on or before the date of the Encounter. The data comes from the [place] facility where the Encounter took place. Date/Time Smoking Status/Tobacco Use Comment [facility] Oct 05, 2019 10:05 AM [place] [facility] Oct 20, 2018 12:28 PM INPT NO TOBACCO USE IN LAST 30 DAYS [facility] Sep 15, 2018 01:21 PM [place]CO [place] USED [place] [facility] Aug 11, 2017 08:54 AM LIFETIME NON-TOBACCO USER [facility] Jul 08, 2016 08:07 AM LIFETIME NON-TOBACCO USER [facility] May 09, 2015 02:31 PM LIFETIME NON-TOBACCO USER [facility] Apr 14, 2014 08:41 AM LIFETIME NON-TOBACCO USER [facility] Jan 06, 2007 08:51 AM LIFETIME NON-TOBACCO USER [facility]
--- OUTSIDE RECORDS SUMMARY | 2022-06-06 11:44 | XMS_ITS | Encounter Summary ---
:1945 Author Organization Department [facility] rs Address [address] [place] [id number] Support Name Relationship Address Phone Arti CORONEL Unavailable [address] [place] [address] ADITYA MALIN Unavailable [address] [place] [address] Insurance Providers: All historical and current Section [...] MEDICARE MEDICARE PART May 15, PART B [id number] 800 HOMER HUNTER (WNR) (M) B 2008 94A [phone] ,ELLE MEDICARE MEDICARE PART May 15, PART A [id number] 800 HOMER HUNTER (WNR) (M) A 2008 94A [phone] ,ELLE Selected Encounter This section includes the information on record at [place] for the Encounter. Date/Time Encounter Type Encounter Description Reason Provider Source Jun 11, 2021 12:00 Outpatient Encounter COMMUNITY CARE AM [...] 20 appointments. The data comes from all [place] treatment facilities. Appointment Date/Time Appointment Type Appointment Facili ty Name Jun 25, 2021 10:00 AM AMBULATORY - MEDICINE [facility] Jun 25, 2021 10:30 AM AMBULATORY - MEDICINE [facility] Jul 10, 2021 08:00 AM AMBULATORY - NONE [facility] Jul 23, 2021 09:30 AM AMBULATORY - MEDICINE [facility] Aug 15, 2021 09:30 AM AMBULATORY - MEDICINE [facility] Aug 15, 2021 10:11 AM AMBULATORY - NEUROLOGY [facility] Sep 10, 2021 09:30 AM AMBULATORY - MEDICINE [facility] Sep 10, 2021 10:35 AM AMBULATORY - NEUROLOGY [facility] Oct 08, 2021 08:30 AM AMBULATORY - MEDICINE [facility] Oct 29, 2021 09:00 AM AMBULATORY - NONE [facility] Oct 29, 2021 09:15 AM AMBULATORY - NONE [facility] Oct 29, 2021 10:00 AM AMBULATORY - MEDICINE [facility] Oct 29, 2021 10:30 AM AMBULATORY - MEDICINE [facility] Nov 26, 2021 09:30 AM AMBULATORY - MEDICINE [facility] Nov 26, 2021 10:15 AM AMBULATORY - NONE [facility] Lab Results: +/- 30 days of the encounter This section includes the Chemistry and Hematology Lab Results on record with OR for the patient. Radiology Reports and Pathology Reports are provided separately, in subsequent sections.Lab Results This section contains the Chemistry/Hematology Results that were resulted 30 days before or 30 daysafter the date of the Encounter. Date/Time Source Result Type Result - Unit Interpretation Reference Range Comment Jun 25, 2021 09:15 AM [facility] PT/INR(ANTICOAG) Speci men Type: PLASMA No comment enter ed. Ordering Provid er: NAOMI STORY Report Released Date/Time: Jun 13, 2021 11:17 AM Reporting Lab: [facility] [address] [facility] [address] Performing Lab: [facility] [address] [facility] [address] .INR 3.4 H 0.8-1.1 .PT 39.1 H 9.4-12.5 May 28, 2021 09:15 AM [facility] SEROTONIN Specim en Type: SERUM Comment: This t est was developed and its analytical performance characteristics have been determined by [facility] [place], [place]. It has not been cleared or approved by the U.S . Food and Drug Administration. This assay has been validated pursuant to the CLIA regulations and is used for clinical purposes. Test Performed by [facility], [facility], [address] [place] [address] Truman Doan M.D., Ph.D., Director of Laboratories , CLIA [id number] Ordering Provid er: LILI GARCIA Report Released Date/Time: Feb 28, 2021 09:32 AM Reporting Lab: [facility] [address] [facility] [address] Performing Lab: [address] SEROTONIN 1393 H 56-244 May 28, 2021 09:15 [facility] CHROMOGRANIN A(MESILLA) Spec imen Type: SERUM AM No comment enter ed. Ordering Provid er: LILI GARCIA Report Released Date/Time: Feb 28, 2021 09:32 AM Reporting Lab: [facility] [address] [facility] [address] Performing Lab: [facility] [address] [facility] [address] CHROMOGRANIN A(MESILLA) 52 <92 May 28, 2021 09:15 AM [facility] LD,TOTAL Specim en Type: PLASMA No comment enter ed. Ordering Provid er: LILI GARCIA Report Released Date/Time: Feb 28, 2021 09:32 AM Reporting Lab: [facility] [address] [facility] [address] Performing Lab: [facility] [address] [facility] [address] LD,TOTAL 201 125-220 May 28, 2021 09:15 [facility] HEMOGLOBIN A1C Specimen Type: BLOOD AM No comment enter ed. Ordering Provid er: CLAYTON ROLLE Report Released Date/Time: May 15, 2021 12:34 PM Reporting Lab: [facility] [address] [facility] [address] Performing Lab: [facility] [address] [facility] [address] HEMOGLOBIN A1C 5.9 4.0-6.0 May 28, 2021 09:15 AM [facility] PSA Specim en Type: SERUM No comment enter ed. Ordering Provid er: CLAYTON ROLLE Report Released Date/Time: May 15, 2021 12:34 PM Reporting Lab: [facility] [address] [facility] [address] Performing Lab: [facility] [address] [facility] [address] PSA 0.01 <4.00 May 28, 2021 [facility] COMPREHENSIVE METABOLIC Spec imen Type: PLASMA 09:15 AM PANEL+MG No comment enter ed. Ordering Provid er: LILI GARCIA Report Released Date/Time: Feb 28, 2021 09:32 AM Reporting Lab: [facility] [address] [facility] [address] Performing Lab: [facility] [address] [facility] [address] CREATININE 0.9 0.7-1.2 UREA NITROGEN 12 8-26 GLUCOSE 123 H 74-100 SODIUM 137 136-145 POTASSIUM 4.0 3.5-5.1 CHLORIDE 106 98-107 CO2 24 22-29 CALCIUM 9.3 8.4-10.2 PROTEIN,TOTAL 7.0 6.0-8.3 ALBUMIN 3.9 3.5-5.2 BILIRUBIN, TOTAL 0.8 0.2-1.2 MAGNESIUM 2.1 1.6-2.6 ANION GAP 7 5-15 ALKALINE PHOSPHATASE 72 40-150 ALT/SGPT 17 <55 AST/SGOT 17 <34 ESTIMATED GFR(eGFR) 82 >60 May 28, 2021 [facility] LIPID PANEL,NON-FASTING Spec imen Type: PLASMA 09:15 AM No comment enter ed. Ordering Provid er: CLAYTON ROLLE Report Released Date/Time: May 15, 2021 12:34 PM Reporting Lab: [facility] [address] [facility] [address] Performing Lab: [facility] [address] [facility] [address] CHOLESTEROL 203 H <199 .HDL 58 >40 LDL CALCULATION 123 H <99 VLDL CALCULATION 22 <29 NON HDL CHOLESTEROL 145 H <129 TRIG(NON FASTING) 108 <149 May 28, 2021 09:15 AM [facility] CBC & DIFF Specim en Type: BLOOD Comment: Automa rosalba Differential Performed Ordering Provid er: LILI GARCIA Report Released Date/Time: Feb 28, 2021 09:32 AM Reporting Lab: [facility] [address] [facility] [address] Performing Lab: [facility] [address] [facility] [address] WBC 4.25 4.0-11.0 RBC 4.19 L 4.6-6.2 [...] smoking and tobacco-related health factors from the [place] facility where the Encounter took place.Current Smoking Status This section includes the most current smoking, or tobacco-related health factor, from the [place] facility where the Encounter took place. Date/Time Current Smoking Status Comment Facility May 15, 2021 10:00 AM [place]-TOBACCO NEVER USED [place] [facility] Tobacco Use History This section includes a history of the smoking, or tobacco- related health factors, that were collected on or before the date of the Encounter. The data comes from the [place] facility where the Encounter took place. Date/Time Smoking Status/Tobacco Use Comment [facility] Oct 05, 2019 10:05 AM [place]-TOBACCO NEVER USED [place] [facility] Oct 20, 2018 12:28 PM INPT NO TOBACCO USE IN LAST 30 DAYS [facility] Sep 15, 2018 01:21 PM [place]-TOBACCO NEVER USED [place] [facility] Aug 11, 2017 08:54 AM LIFETIME NON-TOBACCO USER [facility] Jul 08, 2016 08:07 AM LIFETIME NON-TOBACCO USER [facility] May 09, 2015 02:31 PM LIFETIME NON-TOBACCO USER [facility] Apr 14, 2014 08:41 AM LIFETIME NON-TOBACCO USER [facility] Jan 06, 2007 08:51 AM LIFETIME NON-TOBACCO USER [facility] Encounter Notes: All associated encounter notes This section contains the clinical notes associated to the Encounter. Date/Time Encounter Note(s) Provider Source Jun 11, 2021 12:00 AM NONVA CONSULT: JIMMIE DELGADO [facility] LOCAL TITLE: COMMUNITY CARE CONSULT RESULT LAB STANDARD TITLE: NONVA CONSULT DATE OF NOTE: JUN 11, 2021 ENTRY DATE: JUN 16@13:51:10 AUTHOR: JIMMIE DELGADO EXP COSIGNER: URGENCY: STATUS: COMPLETED [employer] - Scanned Document [facility] APPOINTMENT INFORMATION Documentation received from non-VA provider and scanned into [employer]. /mustapha/ JIMMIE PROCESS Signed: 06/16/2021 13:51
[2022-06-06 11:46] LABS: Basophils Percent Auto 0.5 % (0.0-3.0); Eosinophils Percent Auto 2.8 % (0.0-7.0); Hematocrit 42.1 % (37.0-53.0); Hemoglobin* 14.1 gm/dL (13.5-17.5); Lymphocytes Percent Auto 26.2 % (20-44); Mean Corpuscular HGB Conc 34 gm/dL (32-36); Mean Corpuscular Hemoglobin 33 pg (26-34); Mean Corpuscular Volume 99 fL (80-100); Neutrophils Percent Auto 55.5 % (42.0-72.0); Platelet Count* 202 K/uL (140-440); RDW Coefficient of Variation % 12.2 % (11.5-15.5); Red Blood Count 4.24 m/uL (4.30-5.90); White Blood Count* 4.28 K/uL (4.50-11.00)
--- OUTSIDE RECORDS SUMMARY | 2022-06-06 11:49 | XMS_ITS | Encounter Summary ---
:1945 Author Organization Department [facility] rs Address [address] [place] [address] Support Name Relationship Address Phone Arti CORONEL Unavailable [address] [place] [address] ADITYA MALIN Unavailable [address] [phone] [place] [address] Insurance Providers: All historical and current Section [...] MEDICARE MEDICARE PART May 15, PART A [id number] 800 HOMER HUNTER (WNR) (M) A 2008 94A [phone] ,ELLE MEDICARE MEDICARE PART May 15, PART B [id number] 800 HOMER HUNTER (WNR) (M) B 2008 94A [phone] ,ELLE Selected Encounter This section includes the information on record at [place] for the Encounter. Date/Time Encounter Type Encounter Reason Provider Source Description Sep 03, 2021 HC PRO PHONE TELEPHONE/MEDICIN ICD-10-CM Z51.81 VALENTINO CAI 12:42 PM CALL 11-20 MIN E Encounter for ER L therapeutic drug level monitoring with Provider Comments: Encounter For Therapeutic Drug Level Monitoring (ICD-10-CM Z51.81) IHE Encounter Template Text not used by [place] Assessments - Encounter Diagnoses This section includes the primary and secondary diagnoses documented for the Encounter. Date/Time Primary/Secondary Diagnosis Name Provider Source Diagnosis Sep 03, 2021 PRIMARY Encounter for LADAN ARRIOLA V [place] 12:42 PM therapeutic drug TI L [facility] level monitoring Sep 03, 2021 SECONDARY alf (current) [facility]ADAN ARRIOLA [facility] 12:42 PM use of [facility] anticoagulants Sep 03, 2021 SECONDARY Unspecified atrial LADAN ARRIOLA [facility] 12:42 PM fibrillation [facility] Plan of Treatment: Future Appointments (+ 6 months) and Future Tests (+/- 45 days) The Plan of Treatment section includes future care activities for the patient from all [place] [facility] This section includes future appointments and future orders which are active, pending orscheduled.Future Appointments This section includes appointments that were scheduled to occur 6 months from the date of the Encounter, up to a maximum of 20 appointments. The data comes from all [place] treatment facilities. Appointment Date/Time Appointment Type Appointment Facili ty Name Sep 10, 2021 09:30 AM AMBULATORY - MEDICINE [facility] Sep 10, 2021 10:35 AM AMBULATORY - NEUROLOGY [facility] Oct 08, 2021 08:30 AM AMBULATORY - MEDICINE [facility] Oct 29, 2021 09:00 AM AMBULATORY - NONE [facility] Oct 29, 2021 09:15 AM AMBULATORY - NONE [facility] Oct 29, 2021 10:00 AM AMBULATORY - MEDICINE [facility] Oct 29, 2021 10:30 AM AMBULATORY - MEDICINE [facility] Nov 26, 2021 09:30 AM AMBULATORY - MEDICINE [facility] Nov 26, 2021 10:15 AM AMBULATORY - NONE [facility] Dec 18, 2021 10:30 AM AMBULATORY - NONE [facility] Dec 18, 2021 11:00 AM AMBULATORY - MEDICINE [facility] Dec 18, 2021 11:30 AM AMBULATORY - MEDICINE [facility] Dec 24, 2021 09:30 AM AMBULATORY - MEDICINE [facility] January 21, 2022 09:30 AM AMBULATORY - MEDICINE [facility] Feb 17, 2022 08:00 AM AMBULATORY - NONE [facility] Feb 17, 2022 09:00 AM AMBULATORY - MEDICINE [facility] Feb 17, 2022 10:30 AM AMBULATORY - MEDICINE [facility] Lab Results: +/- 30 days of the encounter This section includes the Chemistry and Hematology Lab Results on record with [place] for the patient. Radiology Reports and Pathology Reports are provided separately, in subsequent sections.Lab Results This section contains the Chemistry/Hematology Results that were resulted 30 days before or 30 daysafter the date of the Encounter. Date/Time Source Result Type Result - Unit Interpretation Reference Range Comment Sep 10, 2021 [facility] COVID-19 AND FLU/RSV DIAG Sp ecimen Type: NASOPHARYNGEAL 10:06 AM PANEL(CEPHEID) Comment: Courtneyi lani GeneXpert ([id number]) Ordering Provid er: GLENN CHISHOLM Report Released Date/Time: Sep 10, 2021 10:07 AM Reporting Lab: [facility] [address] [facility] [address] Performing Lab: [facility] [address] [facility] [address] COVID-19 (CEPHEID) Not Detected Not Dete cted INFLUENZA A (PCR) Not Detected Not Detec rosalba INFLUENZA B (PCR) Not Detected Not Detec rosalba RSV (PCR) Not Detected Not Detected Aug 15, 2021 [facility] COVID-19 AND FLU/RSV DIAG Sp ecimen Type: NASOPHARYNGEAL 10:10 AM PANEL(CEPHEID) Comment: Alcides garibay GeneXpert (618) Ordering Provid er: GLENN CHISHOLM Report Released Date/Time: Aug 15, 2021 10:11 AM Reporting Lab: [facility] [address] [facility] [address] Performing Lab: [facility] [address] [facility] [address] COVID-19 (CEPHEID) Not Detected Not Dete cted INFLUENZA A (PCR) Not Detected Not Detec rosalba INFLUENZA B (PCR) Not Detected Not Detec rosalba RSV (PCR) Not Detected Not Detected Social History: Smoking Status (Most current) and Tobacco Use (All prior to encounter date) This section includes the most current, and the historical, smoking and tobacco-related health factors from the [place] facility where the Encounter took place.Current Smoking Status This section includes the most current smoking, or tobacco-related health factor, from the [place] facility where the Encounter took place. Date/Time Current Smoking Status Comment Facility May 15, 2021 10:00 AM [place]-TOBACCO NEVER USED [employer] [facility] Tobacco Use History This section includes a history of the smoking, or tobacco- related health factors, that were collected on or before the date of the Encounter. The data comes from the [place] facility where the Encounter took place. Date/Time Smoking Status/Tobacco Use Comment [facility] Oct 05, 2019 10:05 AM [place]-TOBACCO NEVER USED [facility] Oct 20, 2018 12:28 PM INPT NO TOBACCO USE IN LAST 30 DAYS [facility] Sep 15, 2018 01:21 PM [place]-TOBACCO NEVER USED [facility] Aug 11, 2017 08:54 AM [...] the Encounter. Date/Time Encounter Note(s) Provider Source Sep 03, 2021 12:45 PM PHARMACY OUTPATIENT MEDICATION MGT NOT E: LEONOR ARRIOLA [facility] LOCAL TITLE: PHARMACY ANTICOAGULATION CLINIC F/ U STANDARD TITLE: PHARMACY OUTPATIENT MEDICATION M GT NOTE DATE OF NOTE: SEP 03, 2021@12:45:15 ENTRY DATE: SEP 03, 2021@12:45:15 AUTHOR: LEONOR ARRIOLA EXP COSIGNER: URGENCY: STATUS: [...] He sees a another primary dr in [place], Dr Yancey once yearly [facility]. He sought evalua tion at [place] earlier this year to see if any [...] ot available at home phone. Care Coordination: - Local Lab: [facility] Direct P: [phone]; F: [phone] , F: [phone] *New CITC SO sent 06/13/21 *[facility] labs valid: 03/27/21-09/23/21, new consult placed 06/13/21 SUBJECTIVE/OBJECTIVE: History obtained from patient today at . No: Health changes: No: Pending procedures: No: Bleeding or thromboembolic signs/symptoms or falls: No: Medication changes/significant drug interact ions - Continues: APAP 500mg 1-2x/wk; not new & no r ecent changes No: Dietary changes: - Baseline vit K: ~1-2 serving of greens every week (usually broccoli) Yes: Alcohol/tobacco use: - Baseline ~1-2 drinks per week. Yes: Dosing discrepancies: - Patient forgot to take 7.5mg dose on 08/27/21 an only took 5mg Warfarin dose: 7.5mg TuTh, 5mg all other days (4 0mg/wk); AM Collection DT *INR mg in last 7 days 09/02/2021 local 2.25 37.5 missed dose 08/19/2021 local 1.86 37.5 08/07/2021 local 1.38 32.5 missed dose 07/23/2021 [...] 43.6 214 100.2 H 53.5 27.9 ASSESSMENT/PLAN: Therapeutic anticoagulation. After verbal conversation with provider, patient to take increased dose that provider intend ed at last follow up, and recheck in 2 weeks. - Warfarin dose: Continue intended dose: 7.5mg TuTh, 5mg all other days (40mg/wk) - Next INR: 09/16/21 at local lab ([facility]) - Rx reviewed. Time Spent: 15 min Patient Education of Treatment Plan: patient and his spouse indicates readiness to learn, verbalizes understanding, ag reement and satisfaction with the treatment plan. Denies further questions. /mustapha/ LEONOR ARRIOLA ROUTER OPERATOR PIN Signed: 09/03/2021 12:55 Receipt Acknowledged By: * AWAITING SIGNATURE * AJITH CAI
--- OUTSIDE RECORDS SUMMARY | 2022-06-06 11:49 | XMS_ITS | Encounter Summary ---
:1945 Author Organization Department [facility] rs Address [address] [place] [address] Support Name Relationship Address Phone Arti CORONEL Unavailable [address] [place] [address] ADITYA MALIN Unavailable [address] [place] [address] Insurance Providers: All historical and current Section [...] MEDICARE MEDICARE PART May 15, PART A [id number] 800 HOMER HUNTER (WNR) (M) A 2008 94A [phone] ,ELLE MEDICARE MEDICARE PART May 15, PART B [id number] 800 HOMER DEL VALLEIENT (WNR) (M) B 2008 94A [phone] ,ELLE Selected Encounter This section includes the information on record at [place] for the Encounter. Date/Time Encounter Type Encounter Description Reason Provider Source Sep 02, 2021 12:00 Outpatient Encounter EVENT (HISTORICAL) AM IHE Encounter Template Text not used by [place] Plan of Treatment: Future Appointments (+ 6 months) and Future Tests (+/- 45 days) The Plan of Treatment section includes future care activities for the patient from all [place] treatmentfacilities. This section includes future appointments and future orders which are active, pending orscheduled.Future Appointments This section includes appointments that were scheduled to occur 6 months from the date of the Encounter, up to a maximum of 20 appointments. The data comes from all [place] treatment facilities. Appointment Date/Time Appointment Type Appointment Facili ty Name Sep 10, 2021 09:30 AM AMBULATORY - MEDICINE [facility] Sep 10, 2021 10:35 AM AMBULATORY - NEUROLOGY [facility] Oct 08, 2021 08:30 AM AMBULATORY - MEDICINE [facility] Oct 29, 2021 09:00 AM AMBULATORY - NONE [facility] Oct 29, 2021 09:15 AM AMBULATORY - NONE [facility] Oct 29, 2021 10:00 AM AMBULATORY - MEDICINE [facility] Oct 29, 2021 10:30 AM AMBULATORY - MEDICINE [facility] Nov 26, 2021 09:30 AM AMBULATORY - MEDICINE [facility] Nov 26, 2021 10:15 AM AMBULATORY - NONE [facility] Dec 18, 2021 10:30 AM AMBULATORY - NONE [facility] Dec 18, 2021 11:00 AM AMBULATORY - MEDICINE [facility] Dec 18, 2021 11:30 AM AMBULATORY - MEDICINE [facility] Dec 24, 2021 09:30 AM AMBULATORY - MEDICINE [facility] January 21, 2022 09:30 AM AMBULATORY - MEDICINE [facility] Feb 17, 2022 08:00 AM AMBULATORY - NONE [facility] Feb 17, 2022 09:00 AM AMBULATORY - MEDICINE [facility] Feb 17, 2022 10:30 AM AMBULATORY - MEDICINE [facility] Lab Results: +/- 30 days [...] Interpretation Reference Range Comment Sep 10, 2021 [facility] COVID-19 AND FLU/RSV DIAG Sp ecimen Type: NASOPHARYNGEAL 10:06 AM PANEL(CEPHEID) Comment: Courtneyi lani GeneXpert ([phone]) Ordering Provid er: GLENN CHISHOLM Report Released Date/Time: Sep 10, 2021 10:07 AM Reporting Lab: [facility] [address] [facility] [address] Performing Lab: [facility] [address] [facility] [address] [facility] [address] COVID-19 (CEPHEID) Not Detected Not Dete cted INFLUENZA A (PCR) Not Detected Not Detec rosalba INFLUENZA B (PCR) Not Detected Not Detec rosalba RSV (PCR) Not Detected Not Detected Aug 15, 2021 [facility] COVID-19 AND FLU/RSV DIAG Sp ecimen Type: NASOPHARYNGEAL 10:10 AM PANEL(CEPHEID) Comment: Alcides garibay GeneXpert (618) Ordering Provid er: GLENN CHISHOLM Report Released Date/Time: Aug 15, 2021 10:11 AM Reporting Lab: [facility] [address] [facility] [address] Performing Lab: [facility] [address] [facility] [address] COVID-19 (CEPHEID) Not Detected Not Dete cted [...] smoking, or tobacco-related health factor, from the [place] facility where the Encounter took place. Date/Time Current Smoking Status Comment Facility May 15, 2021 10:00 AM [place]-TOBACCO NEVER USED [place] [facility] Tobacco Use History This section includes a history of the smoking, or tobacco- related health factors, that were collected on or before the date of the Encounter. The data comes from the [facility] where the Encounter took place. Date/Time Smoking Status/Tobacco Use Comment [facility] Oct 05, 2019 10:05 AM [place]-TOBACCO NEVER USED [place] [facility] Oct 20, 2018 12:28 PM INPT NO TOBACCO USE IN LAST 30 DAYS [facility] Sep 15, 2018 01:21 PM [place]-TOBACCO NEVER USED [place] [facility] Aug 11, 2017 08:54 AM LIFETIME NON-TOBACCO USER [facility] Jul 08, 2016 08:07 AM LIFETIME NON-TOBACCO USER [facility] May 09, 2015 02:31 PM LIFETIME NON-TOBACCO USER [facility] Apr 14, 2014 08:41 AM LIFETIME NON-TOBACCO USER [facility] Jan 06, 2007 08:51 AM LIFETIME NON-TOBACCO USER [facility]
--- OUTSIDE RECORDS SUMMARY | 2022-06-06 11:49 | XMS_ITS | Encounter Summary ---
:[address] [facility] Address [address] [place] [address] Support Name Relationship Address Phone Arti CORONEL Unavailable [address] [place] [address] ADITYA MALIN Unavailable [address] [place] [address] Insurance Providers: All historical and current Section [...] MEDICARE MEDICARE PART May 15, PART A [id number] 800 HOMER HUNTER (WNR) (M) A 2008 94G [phone] ,ELLE MEDICARE MEDICARE PART May 15, PART B [id number] 800 HOMER HUNTER (WNR) (M) B 2008 [id number] ,ELLE Selected Encounter This section includes the information on record at [place] for the Encounter. Date/Time Encounter Type Encounter Description Reason Provider Source Sep 02, 2021 01:28 Outpatient Encounter CLINICAL PHARMACY PM IHE Encounter Template Text not used by [place] Plan of Treatment: Future Appointments (+ 6 months) and Future Tests (+/- 45 days) The Plan of Treatment section includes future care activities for the patient from all [place] treatmentfacilities. This section includes future appointments and future orders which are active, pending orscheduled.Future Appointments This section includes appointments that were scheduled to occur 6 months from the date of the Encounter, up to a maximum of 20 appointments. The data comes from all [place] treatment facilities. Appointment Date/Time Appointment Type Appointment Facili ty Name Sep 10, 2021 09:30 AM AMBULATORY - MEDICINE [facility] Sep 10, 2021 10:35 AM AMBULATORY - NEUROLOGY [facility] Oct 08, 2021 08:30 AM AMBULATORY - MEDICINE [facility] Oct 29, 2021 09:00 AM AMBULATORY - NONE [facility] Oct 29, 2021 09:15 AM AMBULATORY - NONE [facility] Oct 29, 2021 10:00 AM AMBULATORY - MEDICINE [facility] Oct 29, 2021 10:30 AM AMBULATORY - MEDICINE [facility] Nov 26, 2021 09:30 AM AMBULATORY - MEDICINE [facility] Nov 26, 2021 10:15 AM AMBULATORY - NONE [facility] Dec 18, 2021 10:30 AM AMBULATORY - NONE [facility] Dec 18, 2021 11:00 AM AMBULATORY - MEDICINE [facility] Dec 18, 2021 11:30 AM AMBULATORY - MEDICINE [facility] Dec 24, 2021 09:30 AM AMBULATORY - MEDICINE [facility] January 21, 2022 09:30 AM AMBULATORY - MEDICINE [facility] Feb 17, 2022 08:00 AM AMBULATORY - NONE [facility] Feb 17, 2022 09:00 AM AMBULATORY - MEDICINE [facility] Feb 17, 2022 10:30 AM AMBULATORY - MEDICINE [facility] Lab Results: +/- 30 days of the encounter This section includes the Chemistry and Hematology Lab Results on record with [place] for the patient. Radiology Reports and Pathology Reports are provided separately, in subsequent sections.Lab Results This section contains the Chemistry/Hematology Results that were resulted 30 days before or 30 daysafter the date of the Encounter. Date/Time Source Result Type Result - Unit Interpretation Reference Range Comment Sep 10, 2021 [facility] COVID-19 AND FLU/RSV DIAG Sp ecimen Type: NASOPHARYNGEAL 10:06 AM PANEL(CEPHEID) Comment: Cephei d GeneXpert (618) Ordering Provid er: GLENN CHISHOLM Report Released Date/Time: Sep 10, 2021 10:07 AM Reporting Lab: [facility] ISI METZGER [facility] [id number] Performing Lab: [facility] DOM[facility] [id number] COVID-19 (CEPHEID) Not Detected Not Dete cted INFLUENZA A (PCR) Not Detected Not Detec rosalba INFLUENZA B (PCR) Not Detected Not Detec rosalba RSV (PCR) Not Detected Not Detected Aug 15, 2021 [facility] COVID-19 AND FLU/RSV DIAG Sp ecimen Type: NASOPHARYNGEAL 10:10 AM PANEL(CEPHEID) Comment: Alcides garibay GeneXpert (618) Ordering Provid er: GLENN CHISHOLM Report Released Date/Time: Aug 15, 2021 10:11 AM Reporting Lab: [facility] [address] [facility] [phone] Performing Lab: [facility] [address] [facility] [id number] COVID-19 (CEPHEID) Not Detected Not Dete cted INFLUENZA A (PCR) Not Detected Not Detec rosalba INFLUENZA B (PCR) Not Detected Not Detec rosalba RSV (PCR) Not Detected Not Detected Social History: Smoking Status (Most current) and Tobacco Use (All prior to encounter date) This section includes the most current, and the historical, smoking and tobacco-related health factors from the [facility] where the Encounter took place.Current Smoking Status This section includes the most current smoking, or tobacco-related health factor, from the [facility] where the Encounter took place. Date/Time Current Smoking Status Comment Facility May 15, 2021 10:00 AM [place] Tobacco Use History This section includes a history of the smoking, or tobacco- related health factors, that were collected on or before the date of the Encounter. The data comes from the [facility] where the Encounter took place. Date/Time Smoking Status/Tobacco Use Comment [facility] Oct 05, 2019 10:05 AM [place] US[place] [facility] Oct 20, 2018 12:28 PM INPT NO TOBACCO USE IN LAST 30 DAYS [facility] Sep 15, 2018 01:21 PM [place]-TO[place]ACCO [place] USED [place] [facility] Aug 11, 2017 08:54 AM LIFETIME NON-TOBACCO USER [facility] Jul 08, 2016 08:07 AM LIFETIME NON-TOBACCO USER [facility] May 09, 2015 02:31 PM LIFETIME NON-TOBACCO USER [facility] Apr 14, 2014 08:41 AM LIFETIME NON-TOBACCO USER [facility] Jan 06, 2007 08:51 AM LIFETIME NON-TOBACCO USER [facility] Encounter Notes: All associated encounter notes This section contains the clinical notes associated to the Encounter. Date/Time Encounter Note(s) Provider Source Sep 02, 2021 01:28 PM PHARMACY NOTE: HANNA YOU IS [facility] LOCAL TITLE: ANTICOAG ENTRY OF OUTSIDE LABS STANDARD TITLE: PHARMACY NOTE DATE OF NOTE: SEP 02, 2021@13:28 ENTRY DATE: SEP 02, 2021@13:28:57 AUTHOR: HANNA YOU EXP COSIGNER: URGENCY: STATUS: COMPLETED INR: Date: September 02, 2021 Results: 2.25 Location: [facility] /mustapha/ HANNA YOU MEDICAL SUPPORT ASSISTAT Signed: 09/02/2021 13:29 Receipt Acknowledged By: 09/02/2021 13:39 /mustapha/ LEONOR ARRIOLA FRUIT II FARMWORKER
--- OUTSIDE RECORDS SUMMARY | 2022-06-06 11:50 | XMS_ITS | Encounter Summary ---
:1945 Author Organization Department [facility] rs Address [address] [place] [address] Support Name Relationship Address Phone Arti CORONEL Unavailable [address] [facility] [place] [address] ADITYA MALIN Unavailable [address] [phone] [place] [phone] Insurance Providers: All historical and current Section [...] MEDICARE MEDICARE PART May 15, PART A [id number] 800 HOMER HUNTER (WNR) (M) A 2008 94A [phone] ,ELLE MEDICARE MEDICARE PART May 15, PART B [id number] 800 HOMER HUNTER (WNR) (M) B 2008 [id number] [id number] ,ELLE Selected Encounter This section includes the information on record at [place] for the Encounter. Date/Time Encounter Type Encounter Reason Provider Source Description Aug 20, 2021 HC PRO PHONE TELEPHONE/MEDICIN ICD-10-CM Z51.81 VICTORIANO SPRING 11:56 AM CALL 11-20 MIN E Encounter for W S therapeutic drug level monitoring with Provider Comments: Encounter for therapeutic drug level monitoring IHE Encounter Template Text not used by CT Assessments - Encounter Diagnoses This section includes the primary and secondary diagnoses documented for the Encounter. Date/Time Primary/Secondary Diagnosis Name Provider Source Diagnosis Aug 20, 2021 PRIMARY Encounter for TADEO SPRING V A 11:56 AM therapeutic drug EW S [facility] level monitoring Aug 20, 2021 SECONDARY [facility] (current) [place] [facility] 11:56 AM use of S [facility] anticoagulants Aug 20, 2021 SECONDARY Unspecified atrial [place] [facility] 11:56 AM fibrillation EW S [facility] Plan of Treatment: Future Appointments (+ 6 months) and Future Tests (+/- 45 days) The Plan of Treatment section includes future care activities for the patient from all [place] treatmentfacilities. This section includes future appointments and future orders which are active, pending orscheduled.Future Appointments This section includes appointments that were scheduled to occur 6 months from the date of the Encounter, up to a maximum of 20 appointments. The data comes from all [place] treatment facilities. Appointment Date/Time Appointment Type Appointment Facili ty Name Sep 10, 2021 09:30 AM AMBULATORY - MEDICINE [facility] Sep 10, 2021 10:35 AM AMBULATORY - NEUROLOGY [facility] Oct 08, 2021 08:30 AM AMBULATORY - MEDICINE [facility] Oct 29, 2021 09:00 AM AMBULATORY - NONE [facility] Oct 29, 2021 09:15 AM AMBULATORY - NONE [facility] Oct 29, 2021 10:00 AM AMBULATORY - MEDICINE [facility] Oct 29, 2021 10:30 AM AMBULATORY - MEDICINE [facility] Nov 26, 2021 09:30 AM AMBULATORY - MEDICINE [facility] Nov 26, 2021 10:15 AM AMBULATORY - NONE [facility] Dec 18, 2021 10:30 AM AMBULATORY - NONE [facility] Dec 18, 2021 11:00 AM AMBULATORY - MEDICINE [facility] Dec 18, 2021 11:30 AM AMBULATORY - MEDICINE [facility] Dec 24, 2021 09:30 AM AMBULATORY - MEDICINE [facility] CS January 21, 2022 09:30 AM AMBULATORY - MEDICINE [facility] Feb 17, 2022 08:00 AM AMBULATORY - NONE [facility] Feb 17, 2022 09:00 AM AMBULATORY - MEDICINE [facility] Feb 17, 2022 10:30 AM AMBULATORY - MEDICINE [facility] Lab Results: +/- 30 days of the encounter This section includes the Chemistry and Hematology Lab Results on record with CT for the patient. Radiology Reports and Pathology Reports are provided separately, in subsequent sections.Lab Results This section contains the Chemistry/Hematology Results that were resulted 30 days before or 30 daysafter the date of the Encounter. Date/Time Source Result Type Result - Unit Interpretation Reference Range Comment Sep 10, 2021 [facility] COVID-19 AND FLU/RSV DIAG Sp ecimen Type: NASOPHARYNGEAL 10:06 AM PANEL(CEPHEID) Comment: Radhahei lani GeneXpert (618) Ordering Provid er: GLENN CHISHOLM Report Released Date/Time: Sep 10, 2021 10:07 AM Reporting Lab: [facility] [address] [facility] [id number] Performing Lab: [facility] [address] [facility] [address] COVID-19 (CEPHEID) Not Detected Not Dete cted INFLUENZA A (PCR) Not Detected Not Detec rosalba INFLUENZA B (PCR) Not Detected Not Detec rosalba RSV (PCR) Not Detected Not Detected Aug 15, 2021 [facility] COVID-19 AND FLU/RSV DIAG Sp ecimen Type: NASOPHARYNGEAL 10:10 AM PANEL(CEPHEID) Comment: Alcides garibay GeneXpert (618) Ordering Provid er: GLENN CHISHOLM Report Released Date/Time: Aug 15, 2021 10:11 AM Reporting Lab: [facility] [address] [facility] [phone] Performing Lab: [facility] [address] [facility] [address] COVID-19 (CEPHEID) Not Detected Not Dete cted INFLUENZA A (PCR) Not Detected Not Detec rosalba INFLUENZA B (PCR) Not Detected Not Detec rosalba RSV (PCR) Not Detected Not Detected Social History: Smoking Status (Most current) and Tobacco Use (All prior to encounter date) This section includes the most current, and the historical, smoking and tobacco-related health factors from the [place] facility where the Encounter took place.Current Smoking Status This section includes the most current smoking, or tobacco-related health factor, from the [place] facility where the Encounter took place. Date/Time Current Smoking Status Comment Facility May 15, 2021 10:[address] USED [place] [facility] Tobacco Use History This section includes a history of the smoking, or tobacco- related health factors, that were collected on or before the date of the Encounter. The data comes from the [place] facility where the Encounter took place. Date/Time Smoking Status/Tobacco Use Comment [facility] Oct 05, 2019 10:[address] US[place] [facility] Oct 20, 2018 12:28 PM INPT NO TOBACCO USE IN LAST 30 DAYS [facility] Sep 15, 2018 01:21 PM [place]-TOBACCO NEVER USED MELISSA HOYT [facility] Aug 11, 2017 08:54 AM LIFETIME NON-TOBACCO USER [facility] Jul 08, 2016 08:07 AM LIFETIME NON-TOBACCO USER [facility] May 09, 2015 02:31 PM LIFETIME NON-TOBACCO USER [facility] Apr 14, 2014 08:41 AM LIFETIME NON-TOBACCO USER [facility] Jan 06, 2007 08:51 AM LIFETIME NON-TOBACCO USER [facility] Encounter Notes: All associated encounter notes This section contains the clinical notes associated to the Encounter. Date/Time Encounter Note(s) Provider Source Aug 20, 2021 11:56 AM PHARMACY OUTPATIENT MEDICATION MGT NOT E: RUEL SPRING [facility] LOCAL TITLE: PHARMACY ANTICOAGULATION CLINIC F/ U STANDARD TITLE: PHARMACY OUTPATIENT MEDICATION M GT NOTE DATE OF NOTE: AUG 20, 2021@11:56 ENTRY DATE: AUG 20, 2021@11:56:13 AUTHOR: RUEL SPRING EXP COSIGNER: URGENCY: STATUS: [...] He sees a another primary dr in [place], [facility] Y[place]y once yearly [facility]. He sought evalua tion at [facility] earlier this year to see if any [...] home phone. Care Coordination: - Local Lab: [facility] Direct P: [phone]; F: [phone] , F: [phone] *New [facility] SO sent 06/13/21 *[facility] labs [...] ~1-2 drinks per week. No: Dosing discrepancies: Warfarin dose: 7.5mg Th, 5mg all other days (37. 5mg/wk); AM Collection DT *INR mg in last 7 days 08/19/2021 local 1.86 37.5 08/07/2021 local 1.38 [...] 214 100.2 H 53.5 27.9 ASSESSMENT/PLAN: Subtherapeutic anticoagulati on d/t unknown etiology. No complications reported. Will inrease warfarin dose and recheck INR in 2 weeks. - Warfarin dose: INCREASE: 7.5mg TuTh, 5mg all other days (40mg/wk) - Next INR: 09/02/21 at local lab ([facility]) - Rx reviewed. Will update when dose stabilizes. - Patient denied needing a letter mailed. Time Spent: 15 min Patient Education of Treatment Plan: patient and his spouse indicates readiness to learn, verbalizes understanding, ag reement and satisfaction with the treatment plan. Denies further questions. /mustapha/ RUEL SPRING CLINICAL PHARMACIST Signed: 08/20/2021 12:11
--- OUTSIDE RECORDS SUMMARY | 2022-06-06 11:50 | XMS_ITS | Encounter Summary ---
:1945 Author Organization Department [facility] Address [address] [place] [address] Support Name Relationship Address Phone Arti CORONEL Unavailable [address] [place] [address] ADITYA MALIN Unavailable [address] [place] [address] Insurance Providers: All historical and current Section [...] MEDICARE MEDICARE PART May 15, PART B [id number] 800 HOMER HUNTER (WNR) (M) B 2008 94A [phone] ,ELLE MEDICARE MEDICARE PART May 15, PART A [id number] 800 HOMER HUNTER (WNR) (M) A 2008 94A [phone] ,ELLE Selected Encounter This section includes the information on record at [place] for the Encounter. Date/Time Encounter Type Encounter Description Reason Provider Source Aug 19, 2021 12:40 Outpatient Encounter CLINICAL PHARMACY PM IHE Encounter Template Text not used by [place] Plan of Treatment: Future Appointments (+ 6 months) and Future Tests (+/- 45 days) The Plan of Treatment section includes future care activities for the patient from all [place] treatmentfacilities. This section includes future appointments and future orders which are active, pending orscheduled.Future Appointments This section includes appointments that were scheduled to occur 6 months from the date of the Encounter, up to a maximum of 20 appointments. The data comes from all [place] treatment facilities. Appointment Date/Time Appointment Type Appointment Facili ty Name Sep 10, 2021 09:30 AM AMBULATORY - MEDICINE [facility] Sep 10, 2021 10:35 AM AMBULATORY - NEUROLOGY [facility] Oct 08, 2021 08:30 AM AMBULATORY - MEDICINE [facility] Oct 29, 2021 09:00 AM AMBULATORY - NONE [facility] Oct 29, 2021 09:15 AM AMBULATORY - NONE [facility] Oct 29, 2021 10:00 AM AMBULATORY - MEDICINE [facility] Oct 29, 2021 10:30 AM AMBULATORY - MEDICINE [facility] Nov 26, 2021 09:30 AM AMBULATORY - MEDICINE [facility] Nov 26, 2021 10:15 AM AMBULATORY - NONE [facility] Dec 18, 2021 10:30 AM AMBULATORY - NONE [facility] Dec 18, 2021 11:00 AM AMBULATORY - MEDICINE [facility] Dec 18, 2021 11:30 AM AMBULATORY - MEDICINE [facility] Dec 24, 2021 09:30 AM AMBULATORY - MEDICINE [facility] January 21, 2022 09:30 AM AMBULATORY - MEDICINE [facility] Feb 17, 2022 08:00 AM AMBULATORY - NONE [facility] Feb 17, 2022 09:00 AM AMBULATORY - MEDICINE [facility] Feb 17, 2022 10:30 AM AMBULATORY - MEDICINE [facility] Lab Results: +/- 30 days of the encounter This section includes the Chemistry and Hematology Lab Results on record with [place] for the patient. Radiology Reports and Pathology Reports are provided separately, in subsequent sections.Lab Results This section contains the Chemistry/Hematology Results that were resulted 30 days before or 30 daysafter the date of the Encounter. Date/Time Source Result Type Result - Unit Interpretation Reference Range Comment Sep 10, 2021 [facility] COVID-19 AND FLU/RSV DIAG Sp ecimen Type: NASOPHARYNGEAL 10:06 AM PANEL(CEPHEID) Comment: Cephei d GeneXpert (618) Ordering Provid er: GLENN CHISHOLM Report Released Date/Time: Sep 10, 2021 10:07 AM Reporting Lab: [facility] ISI [address] [facility] [id number] Performing Lab: [facility] [address] COVID-19 (CEPHEID) Not Detected Not Dete cted INFLUENZA A (PCR) Not Detected Not Detec rosalba INFLUENZA B (PCR) Not Detected Not Detec rosalba RSV (PCR) Not Detected Not Detected Aug 15, 2021 [facility] COVID-19 AND FLU/RSV DIAG Sp ecimen Type: NASOPHARYNGEAL 10:10 AM PANEL(CEPHEID) Comment: Alcides garibay GeneXpert (618) Ordering Provid er: GLENN CHISHOLM Report Released Date/Time: Aug 15, 2021 10:11 AM Reporting Lab: [facility] [address] [facility] [id number] Performing Lab: [facility] [address] [facility] [phone] COVID-19 (CEPHEID) Not Detected Not Dete cted INFLUENZA A (PCR) Not Detected Not Detec rosalba INFLUENZA B (PCR) Not Detected Not Detec rosalba RSV (PCR) Not Detected Not Detected Social History: Smoking Status (Most current) and Tobacco Use (All prior to encounter date) This section includes the most current, and the historical, smoking and tobacco-related health factors from the [facility] where the Encounter took place.Current Smoking Status This section includes the most current smoking, or tobacco-related health factor, from the [facility] where the Encounter took place. Date/Time Current Smoking Status Comment Facility May 15, 2021 10:00 AM [place] Tobacco Use History This section includes a history of the smoking, or tobacco- related health factors, that were collected on or before the date of the Encounter. The data comes from the [facility] where the Encounter took place. Date/Time Smoking Status/Tobacco Use Comment [facility] Oct 05, 2019 10:05 AM [place]-TOBACCO [place] USED [place] [facility] Oct 20, 2018 12:28 PM INPT NO TOBACCO USE IN LAST 30 DAYS [facility] Sep 15, 2018 01:21 PM [place]-TOBACCO NEVER USED [place] [facility] Aug 11, 2017 08:54 AM LIFETIME NON-TOBACCO USER [facility] Jul 08, 2016 08:07 AM LIFETIME NON-TOBACCO USER [facility] May 09, 2015 02:31 PM LIFETIME NON-TOBACCO USER [facility] Apr 14, 2014 08:41 AM LIFETIME NON-TOBACCO USER [facility] Jan 06, 2007 08:51 AM LIFETIME NON-TOBACCO USER [facility] Encounter Notes: All associated encounter notes This section contains the clinical notes associated to the Encounter. Date/Time Encounter Note(s) Provider Source Aug 19, 2021 12:40 PM PHARMACY NOTE: HANNA YOU IS [facility] LOCAL TITLE: ANTICOAG ENTRY OF OUTSIDE LABS STANDARD TITLE: PHARMACY NOTE DATE OF NOTE: AUG 19, 2021@12:40 ENTRY DATE: AUG 19, 2021@12:40:37 AUTHOR: HANNA YOU EXP COSIGNER: URGENCY: STATUS: COMPLETED INR: Date: August 19, 2021 Results: 1.86 Location: [facility] lab /mustapha/ HANNA YOU MEDICAL SUPPORT ASSISTAT Signed: 08/19/2021 12:41 Receipt Acknowledged By: 08/19/2021 12:49 /mustapha/ LEONOR ARRIOLA ECHO TECH
--- OUTSIDE RECORDS SUMMARY | 2022-06-06 11:51 | XMS_ITS | Encounter Summary ---
:1945 Author Organization Department [facility] Address [address] [place] [address] Support Name Relationship Address Phone Arti CORONEL Unavailable [address] [place] [address] ADITYA MALIN Unavailable GUANACO HUNG SHAWANDA [phone] [place] [address] Insurance Providers: All historical and current Section [...] MEDICARE MEDICARE PART May 15, PART A [id number] 800 HOMER HUNTER (WNR) (M) A 2008 94B [phone] ,ELLE MEDICARE MEDICARE PART May 15, PART B [id number] 800 HOMER HUNTER (WNR) (M) B 2008 [id number] ,ELLE Selected Encounter This section includes the information on record at [place] for the Encounter. Date/Time Encounter Type Encounter Description Reason Provider Source Sep 17, 2021 11:29 Outpatient Encounter CLINICAL PHARMACY AM IHE Encounter Template Text not used by [place] Plan of Treatment: Future Appointments (+ 6 months) and Future Tests (+/- 45 days) The Plan of Treatment section includes future care activities for the patient from all [place] treatmentfacilities. This section includes future appointments and future orders which are active, pending orscheduled.Future Appointments This section includes appointments that were scheduled to occur 6 months from the date of the Encounter, up to a maximum of 20 appointments. The data comes from all [place] treatment facilities. Appointment Date/Time Appointment Type Appointment Facili ty Name Oct 08, 2021 08:30 AM AMBULATORY - MEDICINE [facility] Oct 29, 2021 09:00 AM AMBULATORY - NONE [facility] Oct 29, 2021 09:15 AM AMBULATORY - NONE [facility] Oct 29, 2021 10:00 AM AMBULATORY - MEDICINE [facility] Oct 29, 2021 10:30 AM AMBULATORY - MEDICINE [facility] Nov 26, 2021 09:30 AM AMBULATORY - MEDICINE [facility] Nov 26, 2021 10:15 AM AMBULATORY - NONE [facility] Dec 18, 2021 10:30 AM AMBULATORY - NONE [facility] Dec 18, 2021 11:00 AM AMBULATORY - MEDICINE [facility] Dec 18, 2021 11:30 AM AMBULATORY - MEDICINE [facility] Dec 24, 2021 09:30 AM AMBULATORY - MEDICINE [facility] January 21, 2022 09:30 AM AMBULATORY - MEDICINE [facility] Feb 17, 2022 08:00 AM AMBULATORY - NONE [facility] Feb 17, 2022 09:00 AM AMBULATORY - MEDICINE [facility] Feb 17, 2022 10:30 AM AMBULATORY - MEDICINE [facility] Lab Results: +/- 30 days of the encounter This section includes the Chemistry and Hematology Lab Results on record with [place] for the patient. Radiology Reports and Pathology Reports are provided separately, in subsequent sections.Lab Results This section contains the Chemistry/Hematology Results that were resulted 30 days before or 30 daysafter the date of the Encounter. Date/Time Source Result Type Result - Unit Interpretation Reference Range Comment Sep 10, 2021 [facility] COVID-19 AND FLU/RSV DIAG Sp ecimen Type: NASOPHARYNGEAL 10:06 AM PANEL(CEPHEID) Comment: Courtneyi lani GeneXpert (618) Ordering Provid er: GLENN CHISHOLM Report Released Date/Time: Sep 10, 2021 10:07 AM Reporting Lab: [facility] [address] [place] [facility] [phone] Performing Lab: [facility] ISI VE [facility] [phone] COVID-19 (CEPHEID) Not Detected Not Dete cted INFLUENZA A (PCR) Not Detected Not Detec rosalba INFLUENZA B (PCR) Not Detected Not Detec rosalba RSV (PCR) Not Detected Not Detected Social History: Smoking Status (Most current) and Tobacco Use (All prior to encounter date) This section includes the most current, and the historical, smoking and tobacco-related health factors from the [facility] where the Encounter took place.Current Smoking Status This section includes the most current smoking, or tobacco-related health factor, from the [facility] where the Encounter took place. Date/Time Current Smoking Status Comment Facility May 15, 2021 10:00 AM [place]-TO[place]CO NEVER USED [place] [facility] Tobacco Use History This section includes a history of the smoking, or tobacco- related health factors, that were collected on or before the date of the Encounter. The data comes from the [facility] where the Encounter took place. Date/Time Smoking Status/Tobacco Use Comment [facility] Oct 05, 2019 10:05 AM [place]-TOBACCO NEVER USED [place] [facility] Oct 20, 2018 12:28 PM INPT NO TOBACCO USE IN LAST 30 DAYS [facility] Sep 15, 2018 01:21 PM VA-TOBACCO NEVER USED [place] [facility] Aug 11, 2017 08:54 AM LIFETIME NON-TOBACCO USER [facility] Jul 08, 2016 08:07 AM LIFETIME NON-TOBACCO USER [facility] May 09, 2015 02:31 PM LIFETIME NON-TOBACCO USER [facility] Apr 14, 2014 08:41 AM LIFETIME NON-TOBACCO USER [facility] Jan 06, 2007 08:51 AM LIFETIME NON-TOBACCO USER [facility] Encounter Notes: All associated encounter notes This section contains the clinical notes associated to the Encounter. Date/Time Encounter Note(s) Provider Source Sep 17, 2021 11:29 AM PHARMACY NOTE: HANNA YOU IS [facility] LOCAL TITLE: ANTICOAG ENTRY OF OUTSIDE LABS STANDARD TITLE: PHARMACY NOTE DATE OF NOTE: SEP 17, 2021@11:29 ENTRY DATE: SEP 17, 2021@11:29:13 AUTHOR: HANNA YOU EXP COSIGNER: URGENCY: STATUS: COMPLETED INR: Date: September 17, 2021 Results: 2.04 Location: [facility] /mustapha/ HANNA YOU MEDICAL SUPPORT ASSISTAT Signed: 09/17/2021 11:29 Receipt Acknowledged By: 09/17/2021 11:35 /mustapha/ LEONOR ARRIOLA SOLDER TECHNICIAN
--- OUTSIDE RECORDS SUMMARY | 2022-06-06 11:51 | XMS_ITS | Encounter Summary ---
:1945 Author Organization [facility] Address [address] [place] [address] Support Name Relationship Address Phone Arti CORONEL Unavailable [address] [place] [address] ADITYA MALIN Unavailable [address] [place] [address] Insurance Providers: All historical and current Section [...] MEDICARE MEDICARE PART May 15, PART A [id number] 800 HOMER HUNTER (WNR) (M) A 2008 94F [phone] ,ELLE MEDICARE MEDICARE PART May 15, PART B [id number] 800 HOMER HUNTER (WNR) (M) B 2008 94A [id number] ,ELLE Selected Encounter This section includes the information on record at [place] for the Encounter. Date/Time Encounter Type Encounter Description Reason Provider Source Sep 09, 2021 10:45 Outpatient Encounter CARDIOLOGY AM IHE Encounter Template Text not used by [place] Plan of Treatment: Future Appointments (+ 6 months) and Future Tests (+/- 45 days) The Plan of Treatment section includes future care activities for the patient from all [place] treatmentfacilities. This section includes future appointments and future orders which are active, pending orscheduled.Future Appointments This section includes appointments that were scheduled to occur 6 months from the date of the Encounter, up to a maximum of 20 appointments. The data comes from all [place] treatment facilities. Appointment Date/Time Appointment Type Appointment Facili ty Name Sep 10, 2021 09:30 AM AMBULATORY - MEDICINE [facility] Sep 10, 2021 10:35 AM AMBULATORY - NEUROLOGY [facility] Oct 08, 2021 08:30 AM AMBULATORY - MEDICINE [facility] Oct 29, 2021 09:00 AM AMBULATORY - NONE [facility] Oct 29, 2021 09:15 AM AMBULATORY - NONE [facility] Oct 29, 2021 10:00 AM AMBULATORY - MEDICINE [facility] Oct 29, 2021 10:30 AM AMBULATORY - MEDICINE [facility] Nov 26, 2021 09:30 AM AMBULATORY - MEDICINE [facility] Nov 26, 2021 10:15 AM AMBULATORY - NONE [facility] Dec 18, 2021 10:30 AM AMBULATORY - NONE [facility] Dec 18, 2021 11:00 AM AMBULATORY - MEDICINE [facility] Dec 18, 2021 11:30 AM AMBULATORY - MEDICINE [facility] Dec 24, 2021 09:30 AM AMBULATORY - MEDICINE [facility] January 21, 2022 09:30 AM AMBULATORY - MEDICINE [facility] Feb 17, 2022 08:00 AM AMBULATORY - NONE [facility] Feb 17, 2022 09:00 AM AMBULATORY - MEDICINE [facility] Feb 17, 2022 10:30 AM AMBULATORY - MEDICINE [facility] Lab Results: +/- 30 days [...] Reference Range Comment Sep 10, 2021 [facility] COVID-19 AND FLU/RSV DIAG Sp ecimen Type: NASOPHARYNGEAL 10:06 AM PANEL(CEPHEID) Comment: Cephei d GeneXpert (618) Ordering Provid er: GLENN CHISHOLM Report Released Date/Time: Sep 10, 2021 10:07 AM Reporting Lab: [facility] ONE [facility] [address] [place] [facility] [phone] Performing Lab: [facility] I [place] [facility] [phone] COVID-19 (CEPHEID) Not Detected Not Dete cted INFLUENZA A (PCR) Not Detected Not Detec rosalba INFLUENZA B (PCR) Not Detected Not Detec rosalba RSV (PCR) Not Detected Not Detected Aug 15, 2021 [facility] COVID-19 AND FLU/RSV DIAG Sp ecimen Type: NASOPHARYNGEAL 10:10 AM PANEL(CEPHEID) Comment: Alcides garibay GeneXpert (618) Ordering Provid er: GLENN CHISHOLM Report Released Date/Time: Aug 15, 2021 10:11 AM Reporting Lab: [facility] [address] [facility] [phone] Performing Lab: [facility] [address] [facility] [phone] COVID-19 (CEPHEID) Not Detected Not Dete cted INFLUENZA A (PCR) Not Detected Not Detec rosalba INFLUENZA B (PCR) Not Detected Not Detec rosalba RSV (PCR) Not Detected Not Detected Social History: Smoking Status (Most current) and Tobacco Use (All prior to encounter date) This section includes the most current, and the historical, smoking and tobacco-related health factors from the [place] facility where the Encounter took place.Current Smoking Status This section includes the most current smoking, or tobacco-related health factor, from the [place] facility where the Encounter took place. Date/Time Current Smoking Status Comment Facility May 15, 2021 10:00 AM [facility] Tobacco Use History This section includes a history of the smoking, or tobacco- related health factors, that were collected on or before the date of the Encounter. The data comes from the [facility] where the Encounter took place. Date/Time Smoking Status/Tobacco Use Comment [facility] Oct 05, 2019 10:05 AM [place]-TOBACCO [place] USED [place] [facility] Oct 20, 2018 12:28 PM INPT NO TOBACCO USE IN LAST 30 DAYS [facility] Sep 15, 2018 01:21 PM VA-TOBACCO NEVER USED [place] [facility] Aug 11, 2017 08:54 AM LIFETIME NON-TOBACCO USER [facility] Jul 08, 2016 08:07 AM LIFETIME NON-TOBACCO USER [facility] May 09, 2015 02:31 PM LIFETIME NON-TOBACCO USER [facility] Apr 14, 2014 08:41 AM LIFETIME NON-TOBACCO USER [facility] Jan 06, 2007 08:51 AM LIFETIME NON-TOBACCO USER [facility] Encounter Notes: All associated encounter notes This section contains the clinical notes associated to the Encounter. Date/Time Encounter Note(s) Provider Source Sep 09, 2021 10:45 AM REPORT OF CONTACT[facility] LOCAL TITLE: PATIENT CONTACT NOTE STANDARD TITLE: REPORT OF CONTACT DATE OF NOTE: SEP 09, 2021@10:45 ENTRY DATE: SEP 09, 2021@10:45:17 AUTHOR: LUIZ GRIFFITH COSIGNER: URGENCY: STATUS: COMPLETED PATIENT CONTACT NOTE Has ADDENDA Patient contact Name of : ELLE CORONEL Name/Relationship of Contact if other than Veter an: Date & Time of Contact: Aug@10:45 Type of Contact: Telephone Reason for Contact: [place] call because he needs a refill o f SOTALOL TAB 80MG. Vet also requested message be left for Luisito Katz. Recommended h e contact pharmacy to see if they could assist in obtaining Rx while provider is out of the office. /kanchan GRIFFITH ADVANCED MSA Signed: 09/09/2021 10:48 Receipt Acknowledged By: 09/09/2021 11:04 /mustapha/ MARIELOS PINEDA PA-C [facility] for LUISITO KATZ 09/09/2021 ADDENDUM STATUS: COMPLETED Returned patient phone call. Renewed sot alol Rx for 6 months. RTC order placed for Luisito's clinic in November 2021 with EKG and la bs prior. Called patient - he requested refill through pharmacy and th deacon said they will send out today - has about 10 days of pills left. /kanchan PINEDA PA-C [facility] Signed: 09/09/2021 11:06
--- OUTSIDE RECORDS SUMMARY | 2022-06-06 11:51 | XMS_ITS | Encounter Summary ---
:1945 Author Organization Department [facility] rs Address [address] [place] [address] Support Name Relationship Address Phone Arti CORONEL Unavailable [address] [place] [address] ADITYA MALIN Unavailable [address] [place] [address] Insurance Providers: All historical and current Section [...] MEDICARE MEDICARE PART May 15, PART A [id number] 800 HOMER HUNTER (WNR) (M) A 2008 94A [phone] ,ELLE MEDICARE MEDICARE PART May 15, PART B [id number] 800 HOMER HUNTER (WNR) (M) B 2008 94A [id number] ,ELLE Selected Encounter This section includes the information on record at [place] for the Encounter. Date/Time Encounter Type Encounter Reason Provider Source Description Aug 15, 2021 THER/PROPH/DIAG MEDICAL PROCEDURE ICD-10-CM GORDO ARGUETA 09:30 AM INJ SC/IM UNIT Z79.899 Other mcc (current) drug therapy with Provider Comments: Other mcc (current) drug therapy IHE Encounter Template Text not used by [place] Assessments - Encounter Diagnoses This section includes the primary and secondary diagnoses documented for the Encounter. 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 Plan of Treatment: Future [...] 10, 2021 09:30 AM AMBULATORY - MEDICINE [facility] Sep 10, 2021 10:35 AM AMBULATORY - NEUROLOGY [facility] Oct 08, 2021 08:30 AM AMBULATORY - MEDICINE [facility] Oct 29, 2021 09:00 AM AMBULATORY - NONE [facility] Oct 29, 2021 09:15 AM AMBULATORY - NONE [facility] Oct 29, 2021 10:00 AM AMBULATORY - MEDICINE [facility] Oct 29, 2021 10:30 AM AMBULATORY - MEDICINE [facility] Nov 26, 2021 09:30 AM AMBULATORY - MEDICINE [facility] Nov 26, 2021 10:15 AM AMBULATORY - NONE [facility] Dec 18, 2021 10:30 AM AMBULATORY - NONE [facility] Dec 18, 2021 11:00 AM AMBULATORY - MEDICINE [facility] Dec 18, 2021 11:30 AM AMBULATORY - MEDICINE [facility] Dec 24, 2021 09:30 AM AMBULATORY - MEDICINE [facility] January 21, 2022 09:30 AM AMBULATORY - MEDICINE [facility] Lab Results: +/- 30 days of the [...] ecimen Type: NASOPHARYNGEAL 10:06 AM PANEL(CEPHEID) Comment: Alcides garibay GeneXpert (618) Ordering Provid er: GLENN CHISHOLM Report Released Date/Time: Sep 10, 2021 10:07 AM Reporting Lab: [facility] [address] [facility] [phone] Performing Lab: [facility] [address] [facility] [phone] COVID-19 (CEPHEID) Not Detected Not Dete cted [...] AM Reporting Lab: [facility] [address] [facility] [address] Performing Lab: [facility] ONE [facility] I [facility] [address] COVID-19 (CEPHEID) Not Detected Not Dete cted INFLUENZA A (PCR) Not Detected Not Detec rosalba INFLUENZA B (PCR) Not Detected Not Detec rosalba RSV (PCR) Not Detected Not Detected Vital Signs: All taken on the encounter date This section contains inpatient and outpatient Vital Signs collected on the date of the Encounter. Date/Time Temperature Pulse Blood Respiratory SP02 Pain Height Weight Sukhwinder dy Source Pressure Rate Mass Index Aug 15 98.3 F 78 103/65 16 /min 93 % 4 [place] 2020 10:48 /min mm[Hg] IS [facility] Social History: Smoking Status (Most current) and Tobacco Use (All prior to encounter date) This section includes the most current, and the historical, smoking and tobacco-related health factors from the [place] facility where the Encounter took place.Current Smoking Status This section includes the most current smoking, or tobacco-related health factor, from the [place] facility where the Encounter took place. Date/Time Current Smoking Status Comment Facility May 15, 2021 10:00 AM [place]-TOBACCO NEVER USED [employer] [facility] Tobacco Use History This section includes a history of the smoking, or tobacco- related health factors, that were collected on or before the date of the Encounter. The data comes from the [place] facility where the Encounter took place. Date/Time Smoking Status/Tobacco Use Comment [facility] Oct 05, 2019 10:05 AM [place]-TO[place]CO NEVER US[place] [employer] [facility] Oct 20, 2018 12:28 PM INPT NO TOBACCO USE IN LAST 30 DAYS [facility] Sep 15, 2018 01:21 PM VA-TOBACCO NEVER USED MELISSA HOYT [facility] [...] Encounter. Date/Time Encounter Note(s) Provider Source Aug 15, 2021 10:07 AM HEMATOLOGY AND ONCOLOGY NURSING OUTPAT IENT NOTE: GORDO ARGUETA [facility] LOCAL TITLE: HEME/ONC PROCEDURE CLINIC NURSING NOTE STANDARD TITLE: HEMATOLOGY AND ONCOLOGY NURSING OUTPATIENT NOTE DATE OF NOTE: AUG 15, 2021@10:07 ENTRY DATE: AUG 15, 2021@10:07:56 AUTHOR: GORDO ARGUETA EXP COSIGNER: URGENCY: STATUS: COMPLETED Date of Service: Aug Diagnosis: Carcinoid Tumor Vital Signs: Height: 71.5 in [181.6 cm] ( 021 10:14) Weight: 215.2 lb [97.8 kg] (06/25/2021 10:07) Body Surface Area: 2.22 Temperature: 97.9 F [36.6 C] (06/25/2021 10:07) Blood Pressure (BP): 101/68 (06/25/2021 10:07) Pulse: 93 (06/25/2021 10:07) Respiration: 16 (06/25/2021 10:07) Physician Health And Wellness Sales Consultant: ELIZABETH Subramanian Allergies: DIAL SOAP (Mar 25, 2007) NAPROXEN (February 05, 2011) Patient identity and drugs dispensed verified by : [place].Shahnaz Non chemo procedures SQ/IM Medication: Octreotide LAR IM Dosage: 20mg Site: Left gluteal muscle Time: 1055 Patient Response/Status: Pat ient reports feeling well today. Digital Color Press Operator gave patient Octreotide SA 20mg intramuscular injection given into his left gluteal muscle and applied gauze/bandaid over site. Pt tolerate d injection without problems. Pt left clinic ambulatory. DISCHARGED TO: Home at 1055. /mustapha/ GORDO ARGUETA RN, BSN, [facility] STAFF NURSE Signed: 08/15/2021 10:56
--- OUTSIDE RECORDS SUMMARY | 2022-06-06 11:51 | XMS_ITS | Encounter Summary ---
:1945 Author Organization [facility] rs Address [address] [place] [address] Support Name Relationship Address Phone Arti CORONEL Unavailable [address] [place] [address] ADITYA MALIN Unavailable [address] [place] [address] Insurance Providers: All historical and current Section [...] MEDICARE MEDICARE PART May 15, PART B [id number] 800 HOMER HUNTER (WNR) (M) B 2008 94A [phone] ,ELLE MEDICARE MEDICARE PART May 15, PART A [id number] 800 HOMER DEL VALLEIENT (WNR) (M) A 2008 94A [phone] ,ELLE Selected Encounter This section includes the information on record at [place] for the Encounter. Date/Time Encounter Type Encounter Description Reason Provider Source Aug 19, 2021 12:00 Outpatient Encounter EVENT (HISTORICAL) AM IHE Encounter Template Text not used by [place] Plan of Treatment: Future Appointments (+ 6 months) and Future Tests (+/- 45 days) The Plan of Treatment section includes future care activities for the patient from all [place] treatmentfacilities. This section includes future appointments and future orders which are active, pending orscheduled.Future Appointments This section includes appointments that were scheduled to occur 6 months from the date of the Encounter, up to a maximum of 20 appointments. The data comes from all [place] treatment facilities. Appointment Date/Time Appointment Type Appointment Facili ty Name Sep 10, 2021 09:30 AM AMBULATORY - MEDICINE [facility] Sep 10, 2021 10:35 AM AMBULATORY - NEUROLOGY [facility] Oct 08, 2021 08:30 AM AMBULATORY - MEDICINE [facility] Oct 29, 2021 09:00 AM AMBULATORY - NONE [facility] Oct 29, 2021 09:15 AM AMBULATORY - NONE [facility] Oct 29, 2021 10:00 AM AMBULATORY - MEDICINE [facility] Oct 29, 2021 10:30 AM AMBULATORY - MEDICINE [facility] Nov 26, 2021 09:30 AM AMBULATORY - MEDICINE [facility] Nov 26, 2021 10:15 AM AMBULATORY - NONE [facility] Dec 18, 2021 10:30 AM AMBULATORY - NONE [facility] Dec 18, 2021 11:00 AM AMBULATORY - MEDICINE [facility] Dec 18, 2021 11:30 AM AMBULATORY - MEDICINE [facility] Dec 24, 2021 09:30 AM AMBULATORY - MEDICINE [facility] January 21, 2022 09:30 AM AMBULATORY - MEDICINE [facility] Feb 17, 2022 08:00 AM AMBULATORY - NONE [facility] Feb 17, 2022 09:00 AM AMBULATORY - MEDICINE [facility] Feb 17, 2022 10:30 AM AMBULATORY - MEDICINE [facility] Lab Results: +/- 30 days [...] Interpretation Reference Range Comment Sep 10, 2021 [facility] COVID-19 AND FLU/RSV DIAG Sp ecimen Type: NASOPHARYNGEAL 10:06 AM PANEL(CEPHEID) Comment: Courtneyi lani GeneXpert (618) Ordering Provid er: GLENN CHISHOLM Report Released Date/Time: Sep 10, 2021 10:07 AM Reporting Lab: [facility] [address] [place] [facility] [id number] Performing Lab: [facility] [address] [facility] [address] [facility] [facility] [address] COVID-19 (CEPHEID) Not Detected Not Dete cted INFLUENZA A (PCR) Not Detected Not Detec rosalba INFLUENZA B (PCR) Not Detected Not Detec rosalba RSV (PCR) Not Detected Not Detected Aug 15, 2021 [facility] COVID-19 AND FLU/RSV DIAG Sp ecimen Type: NASOPHARYNGEAL 10:10 AM PANEL(CEPHEID) Comment: Alcides garibay GeneXpert (618) Ordering Provid er: GLENN CHISHOLM Report Released Date/Time: Aug 15, 2021 10:11 AM Reporting Lab: [facility] [address] [facility] [address] Performing Lab: [facility] [address] [facility] [address] COVID-19 (CEPHEID) Not Detected Not Dete cted [...] 10:00 AM [place]-TO[place]ED [place] [facility] Tobacco Use History This section includes a history of the smoking, or tobacco- related health factors, that were collected on or before the date of the Encounter. The data comes from the [facility] where the Encounter took place. Date/Time Smoking Status/Tobacco Use Comment [facility] Oct 05, 2019 10:05 AM [place]-TOBACCO NEVER USED [place] [facility] Oct 20, 2018 12:28 PM INPT NO TOBACCO USE IN LAST 30 DAYS [facility] Sep 15, 2018 01:21 PM [place]-TOBACCO NEVER USED [place] [facility] Aug 11, 2017 08:54 AM LIFETIME NON-TOBACCO USER [facility] Jul 08, 2016 08:07 AM LIFETIME NON-TOBACCO USER [facility] May 09, 2015 02:31 PM LIFETIME NON-TOBACCO USER [facility] Apr 14, 2014 08:41 AM LIFETIME NON-TOBACCO USER [facility] Jan 06, 2007 08:51 AM LIFETIME NON-TOBACCO USER [facility]
--- OUTSIDE RECORDS SUMMARY | 2022-06-06 11:51 | XMS_ITS | Encounter Summary ---
:1945 Author Organization Department of [facility] rs Address [address] [place] [id number] Support Name Relationship Address Phone Arti CORONEL Unavailable [address] [place] [address] ADITYA MALIN Unavailable [address] [place] [address] Insurance Providers: All historical and current Section [...] MEDICARE MEDICARE PART May 15, PART A [id number] 800 HOMER HUNTER (WNR) (M) A 2008 94A [phone] ,ELLE MEDICARE MEDICARE PART May 15, PART B [id number] 800 HOMER DEL VALLEIENT (WNR) (M) B 2008 94A [phone] ,ELLE Selected Encounter This section includes the information on record at [place] for the Encounter. Date/Time Encounter Type Encounter Reason Provider Source Description Aug 15, 2021 10:11 Outpatient EMERGENCY DEPT GLENN CHISHOLM AM Encounter IHE Encounter Template Text not used by [place] Plan of Treatment: Future Appointments (+ 6 [...] 10, 2021 09:30 AM AMBULATORY - MEDICINE [facility] Sep 10, 2021 10:35 AM AMBULATORY - NEUROLOGY [facility] Oct 08, 2021 08:30 AM AMBULATORY - MEDICINE [facility] Oct 29, 2021 09:00 AM AMBULATORY - NONE [facility] Oct 29, 2021 09:15 AM AMBULATORY - NONE [facility] Oct 29, 2021 10:00 AM AMBULATORY - MEDICINE [facility] Oct 29, 2021 10:30 AM AMBULATORY - MEDICINE [facility] Nov 26, 2021 09:30 AM AMBULATORY - MEDICINE [facility] Nov 26, 2021 10:15 AM AMBULATORY - NONE [facility] Dec 18, 2021 10:30 AM AMBULATORY - NONE [facility] Dec 18, 2021 11:00 AM AMBULATORY - MEDICINE [facility] Dec 18, 2021 11:30 AM AMBULATORY - MEDICINE [facility] Dec 24, 2021 09:30 AM AMBULATORY - MEDICINE [facility] January 21, 2022 09:30 AM AMBULATORY - MEDICINE [facility] Lab Results: +/- 30 days of the [...] [facility] [address] [facility] [address] Performing Lab: [facility] [address] [facility] [address] COVID-19 (CEPHEID) Not Detected Not Dete cted INFLUENZA A (PCR) Not Detected Not Detec rosalba INFLUENZA B (PCR) Not Detected Not Detec rosalba RSV (PCR) Not Detected Not Detected Aug 15, 2021 [facility] COVID-19 AND FLU/RSV DIAG Sp ecimen Type: NASOPHARYNGEAL 10:10 AM PANEL(CEPHEID) Comment: Alcides garibay GeneXpert (618) Ordering Provid er: PHANGLENN Report Released Date/Time: Aug 15, 2021 10:11 AM Reporting Lab: [facility] [address] [facility] [address] Performing Lab: [facility] [address] [facility] [address] COVID-19 (CEPHEID) Not Detected Not Dete cted [...] dy Source Pressure Rate Mass Index Aug 15, 98.3 F 78 103/65 16 /min 93 % 4 [place] 2020 10:48 /min mm[Hg] IS [facility] Social History: Smoking Status (Most current) and [...] 2021 10:00 AM [place]-TOBACCO NEVER USED [place] [facility] Tobacco Use History This section includes a [...] Encounter. Date/Time Encounter Note(s) Provider Source Sep 10, 2021 10:22 AM NURSING EMERGENCY DEPT NOTE: ROMAN SIMMONS [facility] LOCAL TITLE: EMERGENCY DEPT NURSING NOTE STANDARD TITLE: NURSING EMERGENCY DEPT NOTE DATE OF NOTE: SEP 10, 2021@10:22 ENTRY DATE: SEP 10, 2021@10:23:10 AUTHOR: ROMAN SIMMONS EXP COSIGNER: URGENCY: STATUS: COMPLETED Pre-procedure Swab ED Acute Respiratory Dischar ge Education Personal Protective Equipment (PPE): Patient wa s in mask on arrival, Patient was in mask on arrival, patient remaine d masked for entire visit, RN used PPE during every encounter with the pat ient The patient was given education on the followin g: Covid swab was collected by ED/ARC clinic staff . Patient educated on the turn around time for sw ab is approximately 90min Results will be provided to patient by clinic s taff EDUCATION/TEACH BACK: Discharge instructions have been reviewed with patient. Patient had an opportunity to ask questions, matos s verbalized understanding. EDUCATIONAL LEVEL OF UNDERSTANDING: Patient was ready and receptive to education. BARRIERS TO LEARNING: No barriers identified Accompanied by: Self Mode of Transportation: Drive self Discharged to: Clinic for procedure /es/ BETZY SIMMONS RN RN Signed: 09/10/2021 10:24 Aug 15, 2021 11:59 AM REPORT OF CONTACT: GLENN CHISHOLM [facility] LOCAL TITLE: COVID-19 RESULTS NOTIFICATION STANDARD TITLE: REPORT OF CONTACT DATE OF NOTE: AUG 15, 2021@11:59 ENTRY DATE: AUG 15, 2021@11:59:57 AUTHOR: GLENN CHISHOLM EXP COSIGNER: URGENCY: STATUS: COMPLETED COVID-19 CEPHEID: Not Detected INFLUENZA A (PCR): Not Detected INFLUENZA B (PCR): Not Detected RSV (PCR): Not Detected Patient notified of negative COVID-19 test resul t. Recommendations: - Minimize contact with others until 24 hours after symptoms resolve. Steps to prevent the spread of COVID-19: - Stay at home except to get medical care that cannot be provided by a telephone or video visit. - Get rest and stay hydrated. - Call ahead before visiting your doctor. - Wear a facemask if you are around others. - Cover your coughs and sneezes. - Clean your hands often. - Keep a six-foot distance from others in your home, ideally in a separate room. Isolate in a private room, if av ailable. - Avoid sharing household items. - Disinfect high touch surfaces daily, ideally with a product that kills cold and flu viruses. /mustapha/ GLENN CHISHOLM APRN NURSE PRACTITIONER Signed: 08/15/2021 12:00 Aug 15, 2021 10:31 AM NURSING EMERGENCY DEPT NOTE: FELECIA ORDONEZ [facility] LOCAL TITLE: EMERGENCY DEPT NURSING NOTE STANDARD TITLE: NURSING EMERGENCY DEPT NOTE DATE OF NOTE: AUG 15, 2021@10:31 ENTRY DATE: AUG 15, 2021@10:31:53 AUTHOR: ESTELA ORDONEZ EXP COSIGNER: URGENCY: STATUS: COMPLETED SUBJECT: Covid 19 Swab for possible exposure Covid 19 Swab ED Acute Respiratory Discharge Ed ucation Personal Protective Equipment (PPE): Patient wa s in mask on arrival, Patient was in mask on arrival, patient remaine d masked for entire visit, RN used PPE during every encounter with the pat ient. Patient had exposure in home, but asymptomatic. Did not wish to see CONSULTING PROJECT DIRECTOR. The patient was given education on the followin g: Covid swab was collected by ED/[facility] clinic staff . Patient educated on the turn around time for sw ab is approximately 90min Results will be provided to patient by clinic s lingf EDUCATION/TEACH BACK: Discharge instructions have been reviewed with patient. Patient had an opportunity to ask questions, matos s verbalized understanding. EDUCATIONAL LEVEL OF UNDERSTANDING: Patient was ready and receptive to education. BARRIERS TO LEARNING: No barriers identified Accompanied by: Self Mode of Transportation: Drive self Discharged to: Home /kanchan ORDONEZ RN REGISTERED NURSE Signed: 08/15/2021 10:33
[2022-06-06 11:52] LABS: Slide Review Reflex No
--- OUTSIDE RECORDS SUMMARY | 2022-06-06 11:52 | XMS_ITS | Encounter Summary ---
:1945 Author Organization Department [facility] Address [address] [place] [address] Support Name Relationship Address Phone Arti CORONEL Unavailable [address] [place] [address] ADITYA MALIN Unavailable [address] [place] [phone] Insurance Providers: All historical and current Section [...] MEDICARE MEDICARE PART May 15, PART B [id number] 800 HOMER HUNTER (WNR) (M) B 2008 94A [phone] ,ELLE MEDICARE MEDICARE PART May 15, PART A [id number] 800 HOMER HUNTER (WNR) (M) A 2008 94A [id number] ,ELLE Selected Encounter This section includes the information on record at [place] for the Encounter. Date/Time Encounter Type Encounter Description Reason Provider Source Oct 15, 2021 09:12 Outpatient Encounter CLINICAL PHARMACY AM IHE Encounter Template Text not used by [place] Plan of Treatment: Future Appointments (+ 6 months) and Future Tests (+/- 45 days) The Plan of Treatment section includes future care activities for the patient from all [place] treatmentfacilities. This section includes future appointments and future orders which are active, pending orscheduled.Future Appointments This section includes appointments that were scheduled to occur 6 months from the date of the Encounter, up to a maximum of 20 appointments. The data comes from all [place] treatment facilities. Appointment Date/Time Appointment Type Appointment Facili ty Name Oct 29, 2021 09:00 AM AMBULATORY - NONE [facility] Oct 29, 2021 09:15 AM AMBULATORY - NONE [facility] Oct 29, 2021 10:00 AM AMBULATORY - MEDICINE [facility] Oct 29, 2021 10:30 AM AMBULATORY - MEDICINE [facility] Nov 26, 2021 09:30 AM AMBULATORY - MEDICINE [facility] Nov 26, 2021 10:15 AM AMBULATORY - NONE [facility] Dec 18, 2021 10:30 AM AMBULATORY - NONE [facility] Dec 18, 2021 11:00 AM AMBULATORY - MEDICINE [facility] Dec 18, 2021 11:30 AM AMBULATORY - MEDICINE [facility] Dec 24, 2021 09:30 AM AMBULATORY - MEDICINE [facility] January 21, 2022 09:30 AM AMBULATORY - MEDICINE [facility] Feb 17, 2022 08:00 AM AMBULATORY - NONE [facility] Feb 17, 2022 09:00 AM AMBULATORY - MEDICINE [facility] Feb 17, 2022 10:30 AM AMBULATORY - MEDICINE [facility] Mar 25, 2022 09:30 AM AMBULATORY - NONE [facility] Mar 25, 2022 10:30 AM AMBULATORY - MEDICINE [facility] Apr 04, 2022 08:30 AM AMBULATORY - MEDICINE [facility] Lab Results: +/- 30 days of the encounter This section includes the Chemistry and Hematology Lab Results on record with [place] for the patient. Radiology Reports and Pathology Reports are provided separately, in subsequent sections.Lab Results This section contains the Chemistry/Hematology Results that were resulted 30 days before or 30 daysafter the date of the Encounter. Date/Time Source Result Type Result - Unit Interpretation Reference Range Comment Oct 29, 2021 09:12 [facility] PT/INR(ANTICOAG) Specimen Type: PLASMA AM No comment enter ed. Ordering Provid er: LUISITO NI Report Released Date/Time: Oct 15, 2021 12:25 PM Reporting Lab: [facility] [address] [facility] [address] Performing Lab: [facility] [address] .INR 2.2 H 0.8-1.1 .PT 26.0 H 9.4-12.5 Oct 29, 2021 09:12 AM [facility] SEROTONIN Specim en Type: SERUM Comment: This t est was developed and its analytical performance characteristics have been determined by [facility]. It has not been cleared or approved by [facility]. This assay h as been validated pursuant to the CLIA regulations and is used for clinical purposes. Test performed by [address] [facility] [address] [address] [facility] [place] [address] Phone: Leach Tank Tender: Felicia Rizzo MD,PHD,BERTHA Test Reported by [facility], [address] [facility], [address] [place] [address] Truman Doan M.D., Ph.D., Director of Laboratories , CLIA [id number] Ordering Provid er: VIKAS SALGUERO Report Released Date/Time: Jun 25, 2021 10:53 AM Reporting Lab: [facility] [address] [facility] [address] Performing Lab: [address] SEROTONIN 1190 H 56-244 Oct 29, 2021 [facility] CHROMOGRANIN A(POPLAR BRANCH) Specime n Type: SERUM 09:12 AM No comment enter ed. Ordering Provid er: VIKAS SALGUERO Report Released Date/Time: Jun 25, 2021 10:53 AM Reporting Lab: [facility] [address] [facility] [address] Performing Lab: [facility] [address] [facility] [address] CHROMOGRANIN A(POPLAR BRANCH) 65 <92 Oct 29, 2021 09:12 AM [facility] LD,TOTAL Specim en Type: PLASMA No comment enter ed. Ordering Provid er: VIKAS SALGUERO Report Released Date/Time: Jun 25, 2021 10:53 AM Reporting Lab: [facility] [address] [facility] [address] Performing Lab: [facility] [address] [facility] [address] LD,TOTAL 186 125-220 Oct 29, 2021 [facility] COMPREHENSIVE METABOLIC Spec imen Type: PLASMA 09:12 AM PANEL+MG No comment enter ed. Ordering Provid er: VIKAS SALGUERO Report Released Date/Time: Jun 25, 2021 10:53 AM Reporting Lab: [facility] [address] Performing Lab: [facility] [address] CREATININE 0.9 0.7-1.2 UREA NITROGEN 14 8-26 GLUCOSE 114 H 74-100 SODIUM 139 136-145 POTASSIUM 4.1 3.5-5.1 CHLORIDE 107 98-107 CO2 29 22-29 CALCIUM 9.0 8.4-10.2 PROTEIN,TOTAL 6.8 6.0-8.3 ALBUMIN 3.7 3.5-5.2 BILIRUBIN, TOTAL 0.9 0.2-1.2 MAGNESIUM 2.1 1.6-2.6 ANION GAP 3 L 5-15 ALKALINE PHOSPHATASE 73 40-150 ALT/SGPT 14 <55 AST/SGOT 16 <34 ESTIMATED GFR(eGFR) 82 >60 Oct 29, 2021 09:12 AM [facility] CBC & DIFF Specim en Type: BLOOD Comment: Sabina navarrete Differential Performed Ordering Provid er: VIKAS SALGUERO Report Released Date/Time: Jun 25, 2021 10:53 AM Reporting Lab: [facility] [address] Performing Lab: [facility] [address] WBC 6.12 4.0-11.0 RBC 4.21 L 4.6-6.2 HGB 14.1 13.5-17.9 HCT 42.1 41-54 MCV 100.0 80-100 MCH 33.5 H 27-33 MCHC 33.5 32.0-37.5 PLT 188 150-400 MPV 9.9 7.4-10.4 NEUT 66.3 LYMPHS 16.8 MONO 12.7 EOSINO 3.3 BASO 0.7 RDW 12.2 11.5-14.5 ABS LYMPH 1.03 1.0-4.0 ABS MONO 0.78 0.1-1.0 ABS NEUT 4.06 2.0-7.7 ABS EOS 0.20 0-0.5 ABS BASO 0.04 0-0.2 IG(META,MYELO,PRO) 0.2 ABS IMMATURE GRAN 0.01 0-0.1 Social History: Smoking Status (Most current) and Tobacco Use (All prior to encounter date) This section includes the most current, and the historical, smoking and tobacco-related health factors from the [facility] facility where the Encounter took place.Current Smoking Status This section includes the most current smoking, or tobacco-related health factor, from the [facility] where the Encounter took place. Date/Time Current Smoking Status Comment Facility May 15, 2021 10:00 AM [place]-TOBACCO NEVER USED [place] [facility] Tobacco Use History This section includes a history of the smoking, or tobacco- related health factors, that were collected on or before the date of the Encounter. The data comes from the [facility] where the Encounter took place. Date/Time Smoking Status/Tobacco Use Comment [facility] Oct 05, 2019 10:05 AM [place] NEVER USED [place] [facility] Oct 20, 2018 12:28 PM INPT NO TOBACCO USE IN LAST 30 DAYS [facility] Sep 15, 2018 01:21 PM [place]-TOBACCO NEVER USED [place] [facility] Aug 11, 2017 08:54 AM LIFETIME NON-TOBACCO USER [facility] Jul 08, 2016 08:07 AM LIFETIME NON-TOBACCO USER [facility] May 09, 2015 02:31 PM LIFETIME NON-TOBACCO USER [facility] Apr 14, 2014 08:41 AM LIFETIME NON-TOBACCO USER [facility] Jan 06, 2007 08:51 AM LIFETIME NON-TOBACCO USER [facility] Encounter Notes: All associated encounter notes This section contains the clinical notes associated to the Encounter. Date/Time Encounter Note(s) Provider Source Oct 15, 2021 09:12 AM PHARMACY NOTE: HANNA YOU IS [facility] LOCAL TITLE: ANTICOAG ENTRY OF OUTSIDE LABS STANDARD TITLE: PHARMACY NOTE DATE OF NOTE: OCT 15, 2021@09:12 ENTRY DATE: OCT 15, 2021@09:12:16 AUTHOR: HANNA YOU EXP COSIGNER: URGENCY: STATUS: COMPLETED INR: Date: October 01, 2021 Results: 1.98 Location: [facility] lab /es/ HANNA YOU MEDICAL SUPPORT ASSISTAT Signed: 10/15/2021 09:13 Receipt Acknowledged By: * AWAITING SIGNATURE * LEONOR ARRIOLA
--- OUTSIDE RECORDS SUMMARY | 2022-06-06 11:52 | XMS_ITS | Encounter Summary ---
:1945 Author Organization Department of [facility] rs Address [address] [place] [phone] Support Name Relationship Address Phone Arti CORONEL Unavailable [address] [place] [address] ADITYA MALIN Unavailable [address] [phone] [place] [phone] Insurance Providers: All historical and current Section [...] MEDICARE MEDICARE PART May 15, PART A [id number] 800 HOMER HUNTER (WNR) (M) A 2008 94A [phone] ,ELLE MEDICARE MEDICARE PART May 15, PART B [id number] 800 HOMER DEL VALLEIENT (WNR) (M) B 2008 94A [phone] ,ELLE Selected Encounter This section includes the information on record at [place] for the Encounter. Date/Time Encounter Type Encounter Description Reason Provider Source Sep 17, 2021 12:00 Outpatient Encounter EVENT (HISTORICAL) AM IHE Encounter Template Text not used by MD Plan of Treatment: Future Appointments (+ 6 months) and Future Tests (+/- 45 days) The Plan of Treatment section includes future care activities for the patient from all [place] treatmentfacilities. This section includes future appointments and future orders which are active, pending orscheduled.Future Appointments This section includes appointments that were scheduled to occur 6 months from the date of the Encounter, up to a maximum of 20 appointments. The data comes from all [place] treatment facilities. Appointment Date/Time Appointment Type Appointment Facili ty Name Oct 08, 2021 08:30 AM AMBULATORY - MEDICINE [facility] Oct 29, 2021 09:00 AM AMBULATORY - NONE [facility] Oct 29, 2021 09:15 AM AMBULATORY - NONE [facility] Oct 29, 2021 10:00 AM AMBULATORY - MEDICINE [facility] Oct 29, 2021 10:30 AM AMBULATORY - MEDICINE [facility] Nov 26, 2021 09:30 AM AMBULATORY - MEDICINE [facility] Nov 26, 2021 10:15 AM AMBULATORY - NONE [facility] Dec 18, 2021 10:30 AM AMBULATORY - NONE [facility] Dec 18, 2021 11:00 AM AMBULATORY - MEDICINE [facility] Dec 18, 2021 11:30 AM AMBULATORY - MEDICINE [facility] Dec 24, 2021 09:30 AM AMBULATORY - MEDICINE [facility] January 21, 2022 09:30 AM AMBULATORY - MEDICINE [facility] Feb 17, 2022 08:00 AM AMBULATORY - NONE [facility] Feb 17, 2022 09:00 AM AMBULATORY - MEDICINE [facility] Feb 17, 2022 10:30 AM AMBULATORY - MEDICINE [facility] Lab Results: +/- 30 days [...] Interpretation Reference Range Comment Sep 10, 2021 [facility] COVID-19 AND FLU/RSV DIAG Sp ecimen Type: NASOPHARYNGEAL 10:06 AM PANEL(CEPHEID) Comment: Alcides garibay GeneXpert (618) Ordering Provid er: GLENN CHISHOLM Report Released Date/Time: Sep 10, 2021 10:07 AM Reporting Lab: [facility] [address] [facility] [address] Performing Lab: [facility] [address] COVID-19 (CEPHEID) Not Detected Not Dete cted INFLUENZA A (PCR) Not Detected Not Detec rosalba INFLUENZA B (PCR) Not Detected Not Detec rosalba RSV (PCR) Not Detected Not Detected Social History: Smoking Status (Most current) and Tobacco Use (All prior to encounter date) This section includes the most current, and the historical, smoking and tobacco-related health factors from the [place] facility where the Encounter took place.Current Smoking Status This section includes the most current smoking, or tobacco-related health factor, from the [place] facility where the Encounter took place. Date/Time Current Smoking Status Comment Facility May 15, 2021 10:00 AM [place] NEVER USED [place] [facility] Tobacco Use History This section includes a history of the smoking, or tobacco- related health factors, that were collected on or before the date of the Encounter. The data comes from the [place] facility where the Encounter took place. Date/Time Smoking Status/Tobacco Use Comment [facility] Oct 05, 2019 10:05 AM [place]-TOBACCO NEVER USED [place] [facility] Oct 20, 2018 12:28 PM INPT NO TOBACCO USE IN LAST 30 DAYS [facility] Sep 15, 2018 01:21 PM [place]-TOBACCO NEVER USED [place] [facility] Aug 11, 2017 08:54 AM LIFETIME NON-TOBACCO USER [facility] Jul 08, 2016 08:07 AM LIFETIME NON-TOBACCO USER [facility] May 09, 2015 02:31 PM LIFETIME NON-TOBACCO USER [facility] Apr 14, 2014 08:41 AM LIFETIME NON-TOBACCO USER [facility] Jan 06, 2007 08:51 AM LIFETIME NON-TOBACCO USER [facility]
--- OUTSIDE RECORDS SUMMARY | 2022-06-06 11:52 | XMS_ITS | Encounter Summary ---
:1945 Author Organization Department [facility] rs Address [address] [place] [address] Support Name Relationship Address Phone Arti CORONEL Unavailable [address] [place] [address] ADITYA MALIN Unavailable [address] [place] [address] Insurance Providers: All historical and current Section [...] MEDICARE MEDICARE PART May 15, PART A [id number] 800 HOMER HUNTER (WNR) (M) A 2008 94A [phone] ,ELLE MEDICARE MEDICARE PART May 15, PART B [id number] 800 HOMER DEL VALLEIENT (WNR) (M) B 2008 94A [phone] ,ELLE Selected Encounter This section includes the information on record at [place] for the Encounter. Date/Time Encounter Type Encounter Reason Provider Source Description Oct 08, 2021 OCTREOTIDE MEDICAL PROCEDURE ICD-10-CM C7A.00 Fariha MCFADDEN VANI 08:30 AM INJECTION, DEPOT UNIT Malignant carcinoid tumor of unspecified site with Provider Comments: Carcinoid tumor (SCT [id number]) IHE Encounter Template Text not used by [place] Assessments - Encounter Diagnoses This section includes the primary and secondary diagnoses documented for the Encounter. Date/Time Primary/Secondary Diagnosis Name Provider Source Diagnosis Oct 08, 2021 PRIMARY Malignant JAN MCFADDEN [facility] 10:48 AM carcinoid tumor HCS of unspecified site Plan of Treatment: Future Appointments (+ 6 months) and Future Tests (+/- 45 days) The Plan of Treatment section includes future care activities for the patient from all [place] [facility]. This section includes future appointments and future [...] Oct 29, 2021 09:15 AM AMBULATORY - [facility] Oct 29, 2021 10:00 AM AMBULATORY - MEDICINE [facility] Oct 29, 2021 10:30 AM AM[facility]ULATORY - [facility] Nov 26, 2021 09:30 AM AMBULATORY - MEDICINE [facility] Nov 26, 2021 10:15 AM AMBULATORY - [facility] Dec 18, 2021 10:30 AM AMBULATORY [facility] Dec 18, 2021 11:00 AM AMBULATORY - MEDICINE [facility] Dec 18, 2021 11:30 AM AMBULATORY - MEDICINE [facility] Dec 24, 2021 09:30 AM AM[facility]ULATORY - [facility] January 21, 2022 09:30 AM AMBULATORY - MEDICINE [facility] Feb 17, 2022 08:00 AM AMBULATORY - [facility] Feb 17, 2022 09:00 AM [facility] - [facility] Feb 17, 2022 10:30 AM AM[facility]ULATORY - [facility] Mar 25, 2022 09:30 AM AMBULATORY - [facility] Mar 25, 2022 10:30 AM AMBULATORY - MEDICINE [facility] Apr 04, 2022 08:30 AM AMBULATORY - MEDICINE [facility] Lab Results: +/- 30 days of [...] Reference Range Comment Oct 29, 2021 09:12 [facility] PT/INR(ANTICOAG) Specimen Type: PLASMA AM No comment enter ed. Ordering Provid er: LUISITO NI Report Released Date/Time: Oct 15, 2021 12:25 PM Reporting Lab: [facility] [address] [facility] [address] Performing Lab: [facility] [address] [facility] [address] .INR 2.2 H 0.8-1.1 .PT 26.0 H 9.4-12.5 Oct 29, 2021 09:12 AM [facility] SEROTONIN Specim en Type: SERUM Comment: This t est was developed and its analytical performance characteristics have been determined by [facility]. It has not been cleared or approved by [facility]. This assay h as been validated pursuant to the CLIA regulations and is used for clinical purposes. Test performed by [employer] [facility] [place] [address] [facility] [place] [address] Phone: Oracle R12 Developer: Felicia Rizzo MD,PHD,BERTHA Test Reported by [facility], [employer] [facility] [place], [address] [place] [address] Truman Doan M.D., Ph.D., Director of Laboratories , CLIA [id number] Ordering Provid er: VIKAS SALGUERO Report Released Date/Time: Jun 25, 2021 10:53 AM Reporting Lab: [facility] [address] [facility] [address] Performing Lab: [address] [place] 1190 H [id number] Oct 29, 2021 [facility] CHROMOGRANIN A(PRIMROSE) Specime n Type: SERUM 09:12 AM No comment enter ed. Ordering Provid er: VIKAS SALGUERO Report Released Date/Time: Jun 25, 2021 10:53 AM Reporting Lab: [facility] [address] [facility] [address] Performing Lab: [facility] [address] GARCIA [facility] [address] CHROMOGRANIN A(ROSE) 65 <92 Oct 29, 2021 09:12 AM [facility] LD,TOTAL Specim en Type: PLASMA No comment enter ed. Ordering Provid er: VIKAS SALGUERO Report Released Date/Time: Jun 25, 2021 10:53 AM Reporting Lab: [facility] [address] [facility] [address] Performing Lab: [facility] [address] LD,TOTAL 186 125-220 Oct 29, 2021 [facility] COMPREHENSIVE METABOLIC Spec imen Type: PLASMA 09:12 AM PANEL+MG No comment enter ed. Ordering Provid er: VIKAS SALGUERO Report Released Date/Time: Jun 25, 2021 10:53 AM Reporting Lab: [facility] [address] Performing Lab: [facility] [address] CREATININE 0.9 0.7-1.2 UREA NITROGEN 14 8-26 GLUCOSE 114 H 74-100 SODIUM 139 136-145 POTASSIUM 4.1 3.5-5.1 CHLORIDE 107 98-107 CO2 29 22-29 CALCIUM 9.0 8.4-10.2 PROTEIN,TOTAL 6.8 6.0-8.3 ALBUMIN 3.7 3.5-5.2 BILIRUBIN, TOTAL 0.9 0.2-1.2 MAGNESIUM 2.1 1.6-2.6 ANION GAP 3 L 5-15 ALKALINE PHOSPHATASE 73 40-150 ALT/SGPT 14 <55 AST/SGOT 16 <34 ESTIMATED GFR(eGFR) 82 >60 Oct 29, 2021 09:12 AM [facility] CBC & DIFF Specim en Type: BLOOD Comment: Automa rosalba Differential Performed Ordering Provid er: VIKAS SALGUERO Report Released Date/Time: Jun 25, 2021 10:53 AM Reporting Lab: [facility] [address] Performing Lab: [facility] [address] WBC 6.12 4.0-11.0 RBC 4.21 L 4.6-6.2 [...] IG(META,MYELO,PRO) 0.2 ABS IMMATURE GRAN 0.01 0-0.1 Sep 10, 2021 [facility] COVID-19 AND FLU/RSV DIAG Sp ecimen Type: NASOPHARYNGEAL 10:06 AM PANEL(CEPHEID) Comment: Alcides garibay GeneXpert (618) Ordering Provid er: GLENN CHISHOLM Report Released Date/Time: Sep 10, 2021 10:07 AM Reporting Lab: [facility] [address] [facility] [address] Performing Lab: [facility] [address] [facility] [address] COVID-19 (CEPHEID) Not Detected Not Dete cted INFLUENZA A (PCR) Not Detected Not Detec rosalba INFLUENZA B (PCR) Not Detected Not Detec rosalba RSV (PCR) Not Detected Not Detected Social History: Smoking Status (Most current) and Tobacco Use (All prior to encounter date) This section includes the most current, and the historical, smoking and tobacco-related health factors from the [facility] where the Encounter took place.Current Smoking Status This section includes the most current smoking, or tobacco-related health factor, from the [facility] where the Encounter took place. Date/Time Current Smoking Status Comment Facility May 15, 2021 10:00 AM [place]-TOBACCO [place] USED [place] [facility] Tobacco Use History This section includes a history of the smoking, or tobacco- related health factors, that were collected on or before the date of the Encounter. The data comes from the [place] facility where the Encounter took place. Date/Time Smoking Status/Tobacco Use Comment [facility] Oct 05, 2019 10:05 AM [place]-TOBACCO NEVER USED [place] [facility] Oct 20, 2018 12:28 PM INPT NO TOBACCO USE IN LAST 30 DAYS [facility] Sep 15, 2018 01:21 PM [place]-TOBACCO NEVER USED [place] [facility], [...] Encounter. Date/Time Encounter Note(s) Provider Source Oct 08, 2021 10:42 AM HEMATOLOGY AND ONCOLOGY NURSING OUTPAT IENT NOTE: JAN MCFADDEN [facility] LOCAL TITLE: HEME/ONC PROCEDURE CLINIC NURSING NOTE STANDARD TITLE: HEMATOLOGY AND ONCOLOGY NURSING OUTPATIENT NOTE DATE OF NOTE: OCT 08, 2021@10:42 ENTRY DATE: OCT 08, 2021@10:42:16 AUTHOR: JAN MCFADDEN EXP COSIGNER: URGENCY: STATUS: COMPLETED Date of Service: Sep Diagnosis: carcinoid Vital Signs: Height: 71.5 in [181.6 cm] ( 021 10:14) Weight: 215.2 lb [97.8 kg] (06/25/2021 10:07) Body Surface Area: 2.22 Temperature: 98.3 F [36.8 C] (08/15/2021 10:48) Blood Pressure (BP): 103/65 (08/15/2021 10:48) Pulse: 78 (08/15/2021 10:48) Respiration: 16 (08/15/2021 10:48) Physician: Dr. Mittal [phone] Allergies: DIAL SOAP (Mar 25, 2007) NAPROXEN (February 05, 2011) Labs: CBC + Diff: WBC 4.25 (05/28/21) ABS NEUT 2.38 (05/28/21) HGB 14.2 (05/28/21) PLT 216 (05/28/21) Chemistry: SODIUM 137 (05/28/21) POTASSIUM 4.0 (05/28/21) CALCIUM 9.3 (05/28/21) MAGNESIUM 2.1 (05/28/21) CREATININE 0.9 (05/28/21) ALK PHOSPHATASE 72 (05/28/21) SGPT 17 (05/28/21) SGOT 17 (05/28/21) BILIRUBIN, TOTAL 0.8 (05/28/21) Non chemo procedures SQ/IM Medication: Octreotide LAR IM Dosage: 20 mg Site: L glut Time: 0950 Patient Response/Status: Tolerated injec tion to L glut. Site covered with band aid. No questions or concerns. Pt left clinic am bulatory. DISCHARGED TO: Home at 1000 /es/ JAN MCFADDEN RN Registered Nurse Signed: 10/08/2021 10:48
--- OUTSIDE RECORDS SUMMARY | 2022-06-06 11:52 | XMS_ITS | Encounter Summary ---
:1945 Author Organization Department [facility] rs Address [address] [place] [address] Support Name Relationship Address Phone Arti CORONEL Unavailable [address] [place] [address] ADITYA MALIN Unavailable [address] [place] [address] Insurance Providers: All historical and current Section [...] MEDICARE MEDICARE PART May 15, PART A [id number] 800 HOMER HUNTER (WNR) (M) A 2008 94A [phone] ,ELLE MEDICARE MEDICARE PART May 15, PART B [id number] 800 HOMER DEL VALLEIENT (WNR) (M) B 2008 94A [phone] ,ELLE Selected Encounter This section includes the information on record at [place] for the Encounter. Date/Time Encounter Type Encounter Description Reason Provider Source Oct 01, 2021 12:00 Outpatient Encounter EVENT (HISTORICAL) AM IHE Encounter Template Text not used by CT Plan of Treatment: Future Appointments (+ 6 [...] 08:30 AM AMBULATORY - [facility]ICINE [facility] Oct 29, 2021 09:00 AM AMBULATORY - NONE [facility] Oct 29, 2021 09:15 AM AMBULATORY - NONE [facility] Oct 29, 2021 10:00 AM AMBULATORY - MEDICINE [facility] Oct 29, 2021 10:30 AM AMBULATORY - [facility]IC[facility] Nov 26, 2021 09:30 AM AMBULATORY - [facility]IC[facility] Nov 26, 2021 10:15 AM AMBULATORY - NONE [facility] Dec 18, 2021 10:30 AM AMBULATORY - NONE [facility] Dec 18, 2021 11:00 AM AMBULATORY - MEDICINE [facility] Dec 18, 2021 11:30 AM AMBULATORY - MEDICINE [facility] Dec 24, 2021 09:30 AM AMBULATORY - MEDICINE [facility] January 21, 2022 09:30 AM AMBULATORY - [facility]IC[facility] Feb 17, 2022 08:00 AM AMBULATORY - NONE [facility] Feb 17, 2022 09:00 AM AMBULATORY - MEDICINE [facility] Feb 17, 2022 10:30 AM AMBULATORY - MEDICINE [facility] Mar 25, 2022 09:30 AM AMBULATORY - NONE [facility] Mar 25, 2022 10:30 AM AMBULATORY - [...] Reference Range Comment Oct 29, 2021 09:12 [facility] PT/INR(ANTICOAG) Specimen Type: PLASMA AM No comment enter ed. Ordering Provid er: LUISITO NI Report Released Date/Time: Oct 15, 2021 12:25 PM Reporting Lab: [facility] [address] [facility] [address] Performing Lab: [facility] [address] .INR 2.2 H 0.8-1.1 .PT 26.0 H 9.4-12.5 Oct 29, 2021 09:12 AM [facility] SEROTONIN Specim en Type: SERUM Comment: This t est was developed and its analytical performance characteristics have been determined by [employer] [facility]. It has not been cleared or approved by [facility]. This assay h as been validated pursuant to the CLIA regulations and is used for clinical purposes. Test performed by [employer] [facility] [address] [address] [place] [facility] [address] Phone: Operations Supervisor: Felicia Rizzo MD,PHD,BERTHA Test Reported by [facility], [employer] [facility], [address] [place] [address] Truman Doan M.D., Ph.D., Director of Laboratories , CLIA [id number] Ordering Provid er: VIKAS SALGUERO Report Released Date/Time: Jun 25, 2021 10:53 AM Reporting Lab: [facility] [address] [facility] [address] Performing Lab: [address] [place] 1190 H 56-244 Oct 29, 2021 [facility] CHROMOGRANIN A([place]) Specime n Type: SERUM 09:12 AM No comment enter ed. Ordering Provid er: VIKAS SALGUERO Report Released Date/Time: Jun 25, 2021 10:53 AM Reporting Lab: [facility] [address] [facility] [address] Performing Lab: [facility] [address] [facility] [address] CHROMOGRANIN A([place]) 65 <92 Oct 29, 2021 09:12 AM [facility] LD,TOTAL Specim en Type: PLASMA No comment enter ed. Ordering Provid er: VKIAS SALGUERO Report Released Date/Time: Jun 25, 2021 10:53 AM Reporting Lab: [facility] [address] [facility] [address] Performing Lab: [facility] [address] [facility] [address] LD,TOTAL 186 125-220 Oct 29, 2021 [facility] COMPREHENSIVE METABOLIC Spec imen Type: PLASMA 09:12 AM PANEL+MG No comment enter ed. Ordering Provid er: VIKAS SALGUERO Report Released Date/Time: Jun 25, 2021 10:53 AM Reporting Lab: [place] [facility] [address] Performing Lab: [facility] [address] CREATININE 0.9 0.7-1.2 UREA NITROGEN 14 8-26 GLUCOSE 114 H 74-100 SODIUM 139 136-145 POTASSIUM 4.1 3.5-5.1 CHLORIDE 107 98-107 CO2 29 22-29 CALCIUM 9.0 8.4-10.2 PROTEIN,TOTAL 6.8 6.0-8.3 ALBUMIN 3.7 3.5-5.2 BILIRUBIN, TOTAL 0.9 0.2-1.2 MAGNESIUM 2.1 1.6-2.6 ANION GAP 3 L 5-15 ALKALINE PHOSPHATASE 73 40-150 ALT/SGPT 14 <55 AST/SGOT 16 <34 ESTIMATED GFR(eGFR) 82 >60 Oct 29, 2021 09:12 AM [facility] CBC & DIFF Specim en Type: BLOOD Comment: Sabina navarrete Differential Performed Ordering Provid er: VIKAS SALGUERO Report Released Date/Time: Jun 25, 2021 10:53 AM Reporting Lab: [facility] [address] Performing Lab: [facility] [address] WBC 6.12 4.0-11.0 RBC 4.21 L 4.6-6.2 [...] IMMATURE GRAN 0.01 0-0.1 Sep 10, 2021 [facility] COVID-19 AND FLU/RSV DIAG Sp ecimen Type: NASOPHARYNGEAL 10:06 AM PANEL(CEPHEID) Comment: Cephei d GeneXpert (618) Ordering Provid er: GLENN CHISHOLM Report Released Date/Time: Sep 10, 2021 10:07 AM Reporting Lab: [facility] [address] [facility] [address] Performing Lab: [facility] [address] [facility] [address] COVID-19 (CEPHEID) Not Detected Not Dete cted [...] 10:[address]ACCO [place] US[place] [facility] Tobacco Use History This section includes a history of the smoking, or tobacco- related health factors, that were collected on or before the date of the Encounter. The data comes from the [place] facility where the Encounter took place. Date/Time Smoking Status/Tobacco Use Comment [facility] Oct 05, 2019 10:[address]-TOBACCO NEVER US[place] [facility] Oct 20, 2018 12:28 PM INPT NO TOBACCO USE IN LAST 30 DAYS [facility] Sep 15, 2018 01:[address]-TOBACCO NEVER USED [place] [facility] Aug 11, 2017 08:54 AM LIFETIME NON-TOBACCO USER [facility] Jul 08, 2016 08:07 AM LIFETIME NON-TOBACCO USER [facility] May 09, 2015 02:31 PM LIFETIME NON-TOBACCO USER [facility] Apr 14, 2014 08:41 AM LIFETIME NON-TOBACCO USER [facility] Jan 06, 2007 08:51 AM LIFETIME NON-TOBACCO USER [facility]
--- OUTSIDE RECORDS SUMMARY | 2022-06-06 11:52 | XMS_ITS | Encounter Summary ---
:1945 Author Organization Department [facility] Address [address] [place] [address] Support Name Relationship Address Phone Arti CORONEL Unavailable [address] [place] [address] ADITYA MALIN Unavailable [address] [place] [address] Insurance Providers: All historical and current Section [...] MEDICARE MEDICARE PART May 15, PART A [id number] 800 HOMER HUNTER (WNR) (M) A 2008 94A [phone] ,ELLE MEDICARE MEDICARE PART May 15, PART B [id number] 800 HOMER DEL VALLEIENT (WNR) (M) B 2008 94A [phone] ,ELLE Selected Encounter This section includes the information on record at [place] for the Encounter. Date/Time Encounter Type Encounter Reason Provider Source Description Sep 18, 2021 [facility] ICD-10-CM Z51.81 NAOMI STORY 08:10 AM EST 15 MIN Encounter for A therapeutic drug level monitoring with Provider Comments: Encounter for therapeutic drug level monitoring IHE Encounter Template Text not used by [place] Assessments - Encounter Diagnoses This section includes the primary and secondary diagnoses documented for the Encounter. Date/Time Primary/Secondary Diagnosis Name Provider Source Diagnosis Sep 18, 2021 PRIMARY Encounter for NAOMI STORY A 08:15 AM therapeutic drug A HCS level monitoring Sep 18, 2021 [facility] (current) SPENNER[facility]NAOMI BARRIOS [facility] 08:15 AM use of A HCS anticoagulants Sep 18, 2021 SECONDARY Unspecified atrial SPENNER,NAOMI WHITAKER [facility] 08:15 AM fibrillation A HCS Plan of Treatment: Future Appointments (+ 6 months) and Future Tests (+/- 45 days) The Plan of Treatment section includes future care activities for the patient from all [place] treatmentfacilities. This section includes future appointments and future orders which are active, pending orscheduled.Future Appointments This section includes appointments that were scheduled to occur 6 months from the date of the Encounter, up to a maximum of 20 appointments. The data comes from all [place] treatment facilities. Appointment Date/Time Appointment Type Appointment Facili ty Name Oct 08, 2021 08:30 AM AMBULATORY - MEDICINE [facility] Oct 29, 2021 09:00 AM [facility] Oct 29, 2021 09:15 AM AMBULATORY [facility] Oct 29, 2021 10:00 AM AMBULATORY - MEDICINE [facility] Oct 29, 2021 10:30 AM AMBULATORY - MEDICINE [facility] Nov 26, 2021 09:30 AM AMBULATORY - MEDICINE [facility] Nov 26, 2021 10:15 AM [facility] Dec 18, 2021 10:30 AM AMBULATORY NONE [facility] Dec 18, 2021 11:00 AM AMBULATORY - MEDICINE [facility] Dec 18, 2021 11:30 AM AMBULATORY - MEDICINE [facility] Dec 24, 2021 09:30 AM AMBULATORY - MEDICINE [facility] January 21, 2022 09:30 AM AMBULATORY - MEDICINE [facility] Feb 17, 2022 08:00 AM AMBULATORY - NONE [facility] Feb 17, 2022 09:00 AM AMBULATORY - MEDICINE [facility] Feb 17, 2022 10:30 AM AMBULATORY - MEDICINE [facility] Lab Results: +/- 30 days of the encounter This section includes the Chemistry and Hematology Lab Results on record with [place] for the patient. Radiology Reports and Pathology Reports are provided separately, in subsequent sections.Lab Results This section contains the Chemistry/Hematology Results that were resulted 30 days before or 30 daysafter the date of the Encounter. Date/Time Source Result Type Result - Unit Interpretation Reference Range Comment Sep 10, 2021 [facility] COVID-19 AND FLU/RSV DIAG Sp ecimen Type: NASOPHARYNGEAL 10:06 AM PANEL(CEPHEID) Comment: Cepda garibay GeneXpert (618) Ordering Provid er: PHANGLENN Report Released Date/Time: Sep 10, 2021 10:07 AM Reporting Lab: [facility] [address] [facility] [address] Performing Lab: [facility] [address] [facility] [address] COVID-19 (CEPHEID) Not Detected Not Dete cted INFLUENZA A (PCR) Not Detected Not Detec rosalba INFLUENZA B (PCR) Not Detected Not Detec rosalba RSV (PCR) Not Detected Not Detected Social History: Smoking Status (Most current) and Tobacco Use (All prior to encounter date) This section includes the most current, and the historical, smoking and tobacco-related health factors from the [place] facility where the Encounter took place.Current Smoking Status This section includes the most current smoking, or tobacco-related health factor, from the [facility] where the Encounter took place. Date/Time Current Smoking Status Comment Facility May 15, 2021 10:00 AM [place] Tobacco Use History This section includes a history of the smoking, or tobacco- related health factors, that were collected on or before the date of the Encounter. The data comes from the [place] facility where the Encounter took place. Date/Time Smoking Status/Tobacco Use Comment Thiago sosa Oct 05, 2019 10:05 AM [place]-TOBACCO [place] USED [place] [facility] Oct 20, 2018 12:28 PM INPT NO TOBACCO USE IN LAST 30 DAYS [facility] Sep 15, 2018 01:21 PM [place]-TOBACCO NEVER USED [place] [facility] Aug 11, 2017 08:54 AM LIFETIME NON-TOBACCO USER [facility] Jul 08, 2016 08:07 AM LIFETIME NON-TOBACCO USER [facility] May 09, 2015 02:31 PM LIFETIME NON-TOBACCO USER [facility] Apr 14, 2014 08:41 AM LIFETIME NON-TOBACCO USER [facility] Jan 06, 2007 08:51 AM LIFETIME NON-TOBACCO USER [facility] Encounter Notes: All associated encounter notes This section contains the clinical notes associated to the Encounter. Date/Time Encounter Note(s) Provider Source Sep 18, 2021 08:10 AM PHARMACY OUTPATIENT MEDICATION MGT NOTE: NAOMI LYNN [facility] LOCAL TITLE: PHARMACY ANTICOAGULATION CLINIC F/ U STANDARD TITLE: PHARMACY OUTPATIENT MEDICATION M GT NOTE DATE OF NOTE: SEP 18, 2021@08:10 ENTRY DATE: SEP 18, 2021@08:10:42 AUTHOR: NAOMI STORY COSIGNER: URGENCY: STATUS: COMPLETED Indication: A-fib Secondary [...] He sees a another primary dr in [place], Dr Yancey once yearly [facility]. He sought evalua tion at [place] earlier this year to see if any [...] home phone. Care Coordination: - Local Lab: [facility] Direct P: [phone]; F: [phone] , F: [phone] *New [facility] SO sent 06/13/21 *[facility] labs valid: 03/27/21-09/23/21, new consult placed 06/13/21 SUBJECTIVE/OBJECTIVE: - Anticoagulation assessment completed as chart review (patient not interviewed). - Letter sent to patient with the assessment and plan. Warfarin dose: 7.5mg TuTh, 5mg all other days (4 0mg/wk); AM Collection DT *INR mg in last 7 days 09/17/2021 lcoal 2.04 40 letter 09/02/2021 local 2.25 37.5 missed dose 08/19/2021 [...] 100.2 H 53.5 27.9 ASSESSMENT/PLAN: Therapeutic anticoagulation. - Warfarin dose: Continue 7.5mg TuTh, 5mg all other days (40mg/wk) - Next INR: 10/14/21 at local lab ([facility]) - Rx reviewed. Time Spent: 15 min /mustapha/ NAOMI STORY Pharm.D., [facility] Anticoagulation Clinical Pharmacist Signed: 09/18/2021 08:15
--- OUTSIDE RECORDS SUMMARY | 2022-06-06 11:53 | XMS_ITS | Encounter Summary ---
:1945 Author Organization Department [facility] rs Address [address] [place] [address] Support Name Relationship Address Phone Arti CORONEL Unavailable [address] [place] [address] ADITYA MALIN Unavailable [address] [phone] Insurance Providers: All historical and current Section [...] MEDICARE MEDICARE PART May 15, PART B [id number] HOMER Gibson ATIENT (WNR) (M) B 2008 [id number] [phone] ,ELLE MEDICARE MEDICARE PART May 15, PART A [id number] SHAYMOYAIDAN Paige ATIENT (WNR) (M) A 2008 94A [phone] ,ELLE Selected Encounter This section includes the information on record at [place] for the Encounter. 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 This section includes future appointments and future orders which are active, pending orscheduled.Future Appointments This section includes appointments that were scheduled to occur 6 months from the date of the Encounter, up to a maximum of 20 appointments. The data comes from all [place] treatment facilities. Appointment Date/Time Appointment Type Appointment Facili ty Name Nov 26, 2021 09:30 AM AMBULATORY - MEDICINE [facility] Nov 26, 2021 10:15 AM AMBULATORY - NONE [facility] Dec 18, 2021 10:30 AM AMBULATORY - NONE [facility] Dec 18, 2021 11:00 AM AMBULATORY - MEDICINE [facility] Dec 18, 2021 11:30 AM AMBULATORY - MEDICINE [facility] Dec 24, 2021 09:30 AM AMBULATORY - MEDICINE [facility] January 21, 2022 09:30 AM AMBULATORY - MEDICINE [facility] Feb 17, 2022 08:00 AM AMBULATORY - NONE [facility] Feb 17, 2022 09:00 AM AMBULATORY - MEDICINE [facility] Feb 17, 2022 10:30 AM AMBULATORY - MEDICINE [facility] Mar 25, 2022 09:30 AM AMBULATORY - NONE [facility] Mar 25, 2022 10:30 AM AMBULATORY - MEDICINE [facility] Apr 04, 2022 08:30 AM AMBULATORY - MEDICINE [facility] Apr 22, 2022 08:30 AM AMBULATORY - NONE [facility] Apr 22, 2022 09:30 AM AMBULATORY - NONE [facility] Apr 22, 2022 09:45 AM AMBULATORY - NONE [facility] Apr 22, 2022 10:30 AM AMBULATORY - MEDICINE [facility] Lab Results: +/- 30 days of the encounter This section includes the Chemistry and Hematology Lab Results on record with [place] for the patient. Radiology Reports and Pathology Reports are provided separately, in subsequent sections.Lab Results This section contains the Chemistry/Hematology Results that were resulted 30 days before or 30 daysafter the date of the Encounter. Date/Time Source Result Type Result - Unit Interpretation Reference Range Comment Nov 26, 2021 [facility] POC INR(COAGUCHEK) Specimen Type: BLOOD 09:07 AM No comment enter ed. Ordering Provid er: CLAYTON ROLLE Report Released Date/Time: Nov 26, 2021 11:26 AM Reporting Lab: [facility] [address] [facility] [id number] Performing Lab: [facility] [id number] POC INR(COAGUCHEK) 1.8 Nov 26, 2021 09:04 [facility] BASIC METABOLIC Specimen Type: PLASMA AM PANEL+MG No comment enter ed. Ordering Provid er: MARIELOS PINEDA Report Released Date/Time: Sep 09, 2021 11:03 AM Reporting Lab: [facility] [address] Performing Lab: [facility] [address] CREATININE 0.9 0.7-1.2 UREA NITROGEN 14 8-26 GLUCOSE 82 74-100 SODIUM 139 136-145 POTASSIUM 4.0 3.5-5.1 CHLORIDE 107 98-107 CO2 26 22-29 CALCIUM 8.9 8.4-10.2 MAGNESIUM 1.9 1.6-2.6 ANION GAP 6 5-15 CREAT EGFR(CKD-EPI) 88 >60 Oct 29, 2021 09:12 [facility] PT/INR(ANTICOAG) Specimen Type: PLASMA AM No comment enter ed. Ordering Provid er: LUISITO NI Report Released Date/Time: Oct 15, 2021 12:25 PM Reporting Lab: [facility] [address] Performing Lab: [facility] [id number] .INR 2.2 H 0.8-1.1 .PT 26.0 H 9.4-12.5 Oct 29, 2021 09:12 AM [facility] SEROTONIN Specim en Type: SERUM Comment: This t est was developed and its analytical performance characteristics have been determined [facility]. It has not been cleared or approved by [employer]. This assay h as been validated pursuant to the CLIA regulations and is used for clinical purposes. Test performed by [facility] [address] [address] [place], [place] [address] Phone: Anatomic Pathology Assistant: Fleicia Rizzo MD,PHD,BERTHA Test Reported by [facility], [facility], [id number] [place] [address] Truman Doan M.D., Ph.D., Director of Laboratories , CLIA [id number] Ordering Provid er: VIKAS SALGUERO Report Released Date/Time: Jun 25, 2021 10:53 AM Reporting Lab: [facility] [address] [facility] [address] Performing Lab: [address] SEROTONIN 1190 H 56-244 Oct 29, 2021 [facility] CHROMOGRANIN A([place]) Specime n Type: SERUM 09:12 AM No comment enter ed. Ordering Provid er: VIKAS SALGUERO Report Released Date/Time: Jun 25, 2021 10:53 AM Reporting Lab: [facility] [address] [facility] [address] Performing Lab: [facility] [address] [facility] [address] CHROMOGRANIN A([place]) 65 <92 Oct 29, 2021 09:12 AM [facility] LD,TOTAL Specim en Type: PLASMA No comment enter ed. Ordering Provid er: VIKAS SALGUERO Report Released Date/Time: Jun 25, 2021 10:53 AM Reporting Lab: [facility] [address] [facility] [address] Performing Lab: [facility] [address] [facility] [address] LD,TOTAL 186 125-220 Oct 29, 2021 [facility] COMPREHENSIVE METABOLIC Spec imen Type: PLASMA 09:12 AM PANEL+MG No comment enter ed. Ordering Provid er: VIKAS SALGUERO Report Released Date/Time: Jun 25, 2021 10:53 AM Reporting Lab: [facility] [address] [facility] [address] Performing Lab: [facility] [address] [facility] [address] CREATININE 0.9 0.7-1.2 UREA NITROGEN 14 8-26 [...] Jun 25, 2021 10:53 AM Reporting Lab: [facility] [address] Performing Lab: [facility] [address] WBC 6.12 4.0-11.0 RBC 4.21 L 4.6-6.2 [...] Zainab dy Source Pressure Rate Mass Index Oct 29, 97.6 F 74 104/70 18 /min 97 % 0 70.5 in 222 lb 31 MINNE AP 2021 09:49 /min mm[Hg] [facility] Social History: Smoking Status (Most current) and Tobacco Use (All prior to encounter date) This section includes the most current, and the historical, smoking and tobacco-related health factors from the [facility] where the Encounter took place.Current Smoking Status This section includes the most current smoking, or tobacco-related health factor, from the [place] facility where the Encounter took place. Date/Time Current Smoking Status Comment Facility May 15, 2021 10:00 AM [place]-TOBACCO NEVER USED [place] [facility] Tobacco Use History This section includes a history of the smoking, or tobacco- related health factors, that were collected on or before the date of the Encounter. The data comes from the [facility] where the Encounter took place. Date/Time Smoking Status/Tobacco Use Comment [facility] Oct 05, 2019 10:05 AM [place]-TOBACCO NEVER USED [place] [facility] Oct 20, 2018 12:28 PM INPT NO TOBACCO USE IN LAST 30 DAYS [facility] Sep 15, 2018 01:21 PM [place]-TOBACCO NEVER USED [place] [facility] Aug 11, 2017 08:54 AM LIFETIME [...] Encounter. 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 He has been on long acting octreotide since 08/15. He also has prostate cancer, s/p HIFU treatment in [place] and is bein g followed by Urology at [facility]. Here today for follow-up. Interval Hx: Patient states that he continues to feel well overall without symptoms related to carcinoid. No new issues since last seen. No abd pain. Good appetite. Wt stable. Denies diarrhea, flu shing, n/v, brbpr, melena, changes in stool habits. No f/c/ns, SOB, cough, chest pain, urinary sxs, neuro changes, bone pain or rash. Does have some low yolie k pain, but this is stable. Was seen at [facility] oncology in 09/[address] and MRI done there . Cancer History: - carcinoid, primary site at the ileum with invo lvement of mesenteric lymph node(s). - He also has prostate cancer Mario 3+ 4, pt had HIFU in [place] 10/09/07 and 2 treatments of lupron. 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 - Also a saturation biopsy o f the prostate done at [place] 11/20/08 with no evidence for prostate cancer [...] prostate. - 04/14/13 Chromogranin A up to 20 - 01/2014 Underwent salvage prostatectomy at [place] . - 07/17/14 CT c/a/p: Impression: 1. [...] flu id collection has almost completely resolved. 1/23/18 CT show: Impression: 1. Interval development of [...] since 07/21/2017, slightly decreased in size since 201 5. The central mesenteric lymph nodes not [...] acting Octreotide 09/2019 Dotatate scan done at [facility] 1. Innumerable mets throughout bones of the bod y, with liver mets, retroperitoneal, periaortic, mesenteric, and hi lar node mets. 2. Small hypermetabolic tumor mid body of pancr eas cannot exclude this as primary site. - 12/12/19 SEROTONIN 1424 ng/mL ; chromogranin A 80 [...] 4. At L5-S1, moderate left foraminal stenosis. Meds reviewed/Allergies reviewed: DIAL SOAP (Mar 25, 2007) NAPROXEN (February 05, 2011) Nursing note and vitals reviewed: Height: 70.5 in [179.1 cm] (10/29/2021 09:49) Weight: 222 lb [100.9 kg] (10/29/2021 09:49) BSA: 2.24 BMI: 31.5 BP: 104/70 (10/29/2021 09:49) Pulse: 74 (10/29/2021 09:49) Resp: 18 (10/29/2021 09:49) Temp: 97.6 F [36.4 C] (10/29/2021 09:49) Pain: 0 (10/29/2021 09:49) PHYSICAL EXAMINATION: General: NAD Lymphatic: No palpable cervical, supraclavicula r or axillary adenopathy HEENT: Sclera clear, non-icteric, oral mucosa m oist without exudates CV: RRR, no murmurs or rubs, no LE edema PULM: CTA bilaterally, no rales, ronchi or whee zes GI: +BS, soft, NT/ND, No HSM Neuro: Alert & oriented x 3, cranial nerve II-X II grossly intact MS: No palpable bone tenderness, no spine or pa raspinous tenderness Skin: No rashes, eccyhmoses or petechaie noted LABORATORY/IMAGING STUDIES: The results of the l aboratory and imaging studies obtained by Hem/Onc for this office visi t were reviewed and discussed with the patient at today's clinic visit. HGB 14.1 (10/29/21) HCT 42.1 (10/29/21) MCV 100.0 (10/29/21) WBC 6.12 (10/29/21) ABS NEUT 4.06 (10/29/21) ABS LYMPH 1.03 (10/29/21) PLT 188 (10/29/21) CREATININE 0.9 (10/29/21) UREA NITROGEN 14 (10/29/21) GLUCOSE 114 H (10/29/21) CALCIUM 9.0 (10/29/21) POTASSIUM 4.1 (10/29/21) SODIUM 139 (10/29/21) CHLORIDE 107 (10/29/21) MAGNESIUM 2.1 (10/29/21) PROTEIN,TOTAL 6.8 (10/29/21) ALBUMIN 3.7 (10/29/21) ALK PHOSPHATASE 73 (10/29/21) SGOT 16 (10/29/21) SGPT 14 (10/29/21) BILIRUBIN, TOTAL 0.9 (10/29/21) LD,TOTAL 186 (10/29/21) PSA 0.01 (05/28/21) CT Chest without IV Contrast [facility] Impression: 1. No change in posterior mediastina l and left internal mammary lymphadenopathy. 2. No change in subtle scleroti c bone metastases. MR Abdomen without and with IV Contrast: Result Date: 10/11/2021 Impression: Stable disease. No new disease. Performance Status: ECOG - 0 ASSESSMENT/PLAN: (1) 76 y/o male with Carcinoid involving ileum a nd mesenteric LNs initially diagnosed in 2008. He was on surveillance with s table/normal Chromagranin A. However, in 08/2019 he was n oted to have enlargement of the mesenteric mass but also new glao lesions suspicious for zainab ne mets and normal chromogranin level. He was started on Octreotide monthly and dotatate scan obtained in 09/2019 showed Innumerable mets throughout bones of the body, with liver mets, retroperitoneal, periaortic, mesenteric, and hilar node m ets. He has been tolerating octreotide well overall. Chromogranin n ormal and serotonin levels down to 800 from previous of 1400. PET Dotatate done at [place] 01/28/21 show mixed findings with innumerable osseous [...] doing well. Remainder of labs are stable. Was seen recently at [facility]. CT and MRI done there on 10/11/21 show overall stable disease. - Maintain on monthly octreotide LAR 20mg, shot to be given today - F/U with procedure clinic every 4 weeks for o ctreotide shot - Discussed that octreotide LAR can be increase d to 30mg every 4 weeks, if needed, on the basis of symptoms. 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 - observation Patient Education of Treatment Plan: Patient and family member indicates readiness to learn, verbalizes understanding, ag reement and satisfaction with the treatment plan. All questions answered to eir apparent satisfaction. 40 mins spent with patient reviewing history, la b results, examination, reviewing treatment plan and EHR documentation /mustapha/ ZONIA SHRESTHA PHYSICIAN [employer]ATHER [employer] Signed: 10/29/2021 10:38 12/18/2021 ADDENDUM STATUS: COMPLETED Pt walked in to the GI clinic on 12/18/21 at 114 5 requesting to speak w/ Burke JOHNSON. Pt stated that he has some question s regarding the timing of his octreotide treatments and he would appreciate a call at #[phone] when able. /mustapha/ AMOS BRANCH AD[employer]ANCED MSA Signed: 12/18/2021 12:13 Receipt Acknowledged By: * AWAITING SIGNATURE * LILI GARCIA Oct 29, 2021 09:50 AM INTERNAL MEDICINE OUTPATIENT NOTE: SMITH FITZGERALD [facility] LOCAL TITLE: MEDICINE CLINIC NURSING NOTE STANDARD TITLE: INTERNAL MEDICINE OUTPATIENT NOT E DATE OF NOTE: OCT 29, 2021@09:50 ENTRY DATE: OCT 29, 2021@09:50:12 AUTHOR: MARIZA FITZGERALD EXP COSIGNER: URGENCY: STATUS: COMPLETED TYPE OF VISIT: Appointment Check In Type of appointment: In-person appointment REASON FOR VISIT: rtc ALLERGIES: DIAL SOAP (Mar 25, 2007) NAPROXEN (February 05, 2011) VITAL SIGNS: Blood Pressure: 104/70 (10/29/2021 09:49) Pulse: 74 (10/29/2021 09:49) Respiration: 18 (10/29/2021 09:49) Temperature: 97.6 F [36.4 C] (10/29/2021 09:49) Weight: 222 lb [100.9 kg] (10/29/2021 09:49) Height: 70.5 in [179.1 cm] (10/29/2021 09:49) BMI: 31.5 O2 Sat: 97% (10/29/2021 09:49) Pain: 0 (10/29/2021 09:49) PAIN SCREEN: Patient is not having significant pain that the y wish to discuss with their provider today. MEDICATION Over the Counter/Herbal Medications: The patient denies taking any outside medicatio ns or herbals. PT reported he fell on the ice and hit h is head on 10/25. Pt went to the ER and had a CT scan. /kanchan FITZGERALD LPN OUTPLACEMENT CONSULTANT Signed: 10/29/2021 09:52
--- OUTSIDE RECORDS SUMMARY | 2022-06-06 11:53 | XMS_ITS | Encounter Summary ---
:1945 Author Organization Department [facility] rs Address [address] [place] [address] Support Name Relationship Address Phone Arti CORONEL Unavailable [address] [place] [address] ADITYA MALIN Unavailable [address] [phone] [place] [address] Insurance Providers: All historical and current Section [...] MEDICARE MEDICARE PART May 15, PART B [id number] 800 HOMER HUNTER (WNR) (M) B 2008 94A [phone] ,ELLE MEDICARE MEDICARE PART May 15, PART A [id number] 800 HOMER DEL VALLEIENT (WNR) (M) A 2008 94A [phone] ,ELLE Selected Encounter This section includes the information on record at [place] for the Encounter. Date/Time Encounter Type Encounter Reason Provider Source Description Oct 15, 2021 [facility] OL DIG TELEPHONE/MEDICIN ICD-10-CM Z51.81 LUISITO NI 12:17 PM ASSMT&MGMT 5-10 E Encounter for M therapeutic drug level monitoring with Provider Comments: Encounter For Therapeutic Drug Level Monitoring (ICD-10-CM Z51.81) IHE Encounter Template Text not used by [place] Assessments - Encounter Diagnoses This section includes the primary and secondary diagnoses documented for the Encounter. 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 This section includes future appointments and future orders which are active, pending orscheduled.Future Appointments This section includes appointments that were scheduled to occur 6 months from the date of the Encounter, up to a maximum of 20 appointments. The data comes from all [place] treatment facilities. Appointment Date/Time Appointment Type Appointment Facili ty Name Oct 29, 2021 09:00 AM AMBULATORY - NONE [facility] Oct 29, 2021 09:15 AM AMBULATORY - NONE [facility] Oct 29, 2021 10:00 AM [facility]ICINE [facility] Oct 29, 2021 10:30 AM [facility]ULATORY - [facility]ICINE [facility] Nov 26, 2021 09:30 AM [facility]ULATORY - MEDICINE [facility] Nov 26, 2021 10:15 AM AMBULATORY - NONE [facility] Dec 18, 2021 10:30 AM AMBULATORY - NONE [facility] Dec 18, 2021 11:00 AM [facility]ULATORY - MEDICINE [facility] Dec 18, 2021 11:30 AM [facility]UL[facility]ORY - MEDICINE [facility] Dec 24, 2021 09:30 AM [facility]BULATORY - MEDICINE [facility] January 21, 2022 09:30 AM [facility]BULATORY - [facility]ICINE [facility] Feb 17, 2022 08:00 AM AMBULATORY - NONE [facility] Feb 17, 2022 09:00 AM [facility]ORY - MEDICINE [facility] Feb 17, 2022 10:30 AM [facility]BULATORY - [facility]ICINE [facility] Mar 25, 2022 09:30 AM AMBULATORY - NONE [facility] Mar 25, 2022 10:30 AM [facility]ORY - [facility]ICINE [facility] Apr 04, 2022 08:30 AM AMBULATORY - MEDICINE [facility] Lab Results: +/- 30 days [...] Reference Range Comment Oct 29, 2021 09:12 [facility] PT/INR(ANTICOAG) Specimen Type: PLASMA AM No comment enter ed. Ordering Provid er: LUISITO NI Report Released Date/Time: Oct 15, 2021 12:25 PM Reporting Lab: [facility] [address] [facility] [address] Performing Lab: [facility] [address] [facility] [address] .INR 2.2 H 0.8-1.1 .PT 26.0 H 9.4-12.5 Oct 29, 2021 09:12 AM [facility] SEROTONIN Specim en Type: SERUM Comment: This t est was developed and its analytical performance characteristics have been determined by [employer] [facility]. It has not been cleared or approved by [facility]. This assay h as been validated pursuant to the CLIA regulations and is used for clinical purposes. Test performed by [employer] [facility] [address] [id number] Phone: Problem Manager: Felicia Rizzo MD,PHD,BERTHA Test Reported by [facility] [employer] [facility], [address] [place] [address] Truman Doan M.D., Ph.D., Director of Laboratories , CLIA [id number] Ordering Provid er: VIKAS SALGUERO Report Released Date/Time: Jun 25, 2021 10:53 AM Reporting Lab: [facility] [address] [facility] [address] Performing Lab: [address] [place] 1190 H 56-244 Oct 29, 2021 [facility] CHROMOGRANIN A(ROSE) Specime n Type: SERUM 09:12 AM No comment enter ed. Ordering Provid er: VIKAS SALGUERO Report Released Date/Time: Jun 25, 2021 10:53 AM Reporting Lab: [facility] [address] [facility] [address] Performing Lab: [facility] [address] [place] [facility] [address] CHROMOGRANIN A([place]) 65 <92 Oct 29, 2021 09:12 AM [facility] LD,TOTAL Specim en Type: PLASMA No comment enter ed. Ordering Provid er: VIKAS SALGUERO Report Released Date/Time: Jun 25, 2021 10:53 AM Reporting Lab: [facility] [address] [facility] [address] Performing Lab: [facility] [address] [facility] [address] LD,TOTAL 186 125-220 Oct 29, 2021 [facility] COMPREHENSIVE METABOLIC Spec imen Type: PLASMA 09:12 AM PANEL+MG No comment enter ed. Ordering Provid er: VIKAS SALGUERO Report Released Date/Time: Jun 25, 2021 10:53 AM Reporting Lab: [facility] [address] [facility] [address] Performing Lab: [facility] [address] CREATININE 0.9 0.7-1.2 UREA NITROGEN 14 8-26 GLUCOSE 114 H 74-100 SODIUM 139 136-145 POTASSIUM 4.1 3.5-5.1 CHLORIDE 107 98-107 CO2 29 22-29 CALCIUM 9.0 8.4-10.2 PROTEIN,TOTAL 6.8 6.0-8.3 ALBUMIN 3.7 3.5-5.2 BILIRUBIN, TOTAL 0.9 0.2-1.2 MAGNESIUM 2.1 1.6-2.6 ANION GAP 3 L 5-15 ALKALINE PHOSPHATASE 73 40-150 ALT/SGPT 14 <55 AST/SGOT 16 <34 ESTIMATED GFR(eGFR) 82 >60 Oct 29, 2021 09:12 AM [facility] CBC & DIFF Specim en Type: BLOOD Comment: Automa rosalba Differential Performed Ordering Provid er: VIKAS SALGUERO Report Released Date/Time: Jun 25, 2021 10:53 AM Reporting Lab: [facility] [address] [facility] [address] Performing Lab: [facility] [address] [facility] [address] WBC 6.12 4.0-11.0 RBC 4.21 L 4.6-6.2 [...] 15, 2021 10:00 AM [place]-TOBACCO NEVER USED [employer] [facility] Tobacco Use History This section includes a history of the smoking, or tobacco- related health factors, that were collected on or before the date of the Encounter. The data comes from the [place] facility where the Encounter took place. Date/Time Smoking Status/Tobacco Use Comment [facility] Oct 05, 2019 10:05 AM [place]-TOBACCO NEVER USED [place] [facility] Oct 20, 2018 12:28 PM INPT NO TOBACCO USE IN LAST 30 DAYS [facility] Sep 15, 2018 01:21 PM [place]-TOBACCO NEVER USED [place] [facility] Aug 11, 2017 08:54 AM LIFETIME NON-TOBACCO USER [facility] Jul 08, 2016 08:07 AM LIFETIME NON-TOBACCO USER [facility] May 09, 2015 02:31 PM LIFETIME NON-TOBACCO USER [facility] Apr 14, 2014 08:41 AM LIFETIME NON-TOBACCO USER [facility] Jan 06, 2007 08:51 AM LIFETIME NON-TOBACCO USER [facility] Encounter Notes: All associated encounter notes This section contains the clinical notes associated to the Encounter. Date/Time Encounter Note(s) Provider Source Oct 15, 2021 12:19 PM PHARMACY OUTPATIENT MEDICATION MGT NOTE: LUISITO VILLATORO [facility] LOCAL TITLE: PHARMACY ANTICOAGULATION CLINIC F/ U STANDARD TITLE: PHARMACY OUTPATIENT MEDICATION M GT NOTE DATE OF NOTE: OCT 15, 2021@12:19:46 ENTRY DATE: OCT 15, 2021@12:19:46 AUTHOR: LUISITO NI COSIGNER: URGENCY: STATUS: COMPLETED Indication: A-fib Secondary [...] He sees a another primary dr in [place], Dr Yancey once yearly [facility] He sought evalua tion at [place] earlier this year to see if any [...] 10/22/2019 Anticipated duration of therapy: lifelong - HAS-BLED = 2 (age, h/o CVA) - CHADS2-VASC = 5 (age x2, h/o CVA x2, HTN) - Risk of recurrent VTE (Chest 2016): Provoked after surgery: 3% in 5 years Unprovoked: 30% in 5 years (continue unless hig h bleed risk) DOAC Assessment (10/21/2019): Not a candidate due to failure with apixaban. Notes: [place] to call on cell phone if not available at home phone. Care Coordination: - Local Lab: [facility] Direct P: [phone]; F: [phone] , F: [phone] *New CITC SO sent 06/13/21 *CITC labs valid: 03/27/21-09/23/21, new consult placed 06/13/21 SUBJECTIVE/OBJECTIVE: - 10/01/21: INR was drawn at local lab, clinic was not aware of results until 10/15/21 d/t no-show on 10/14/21, when pt was du e for INR. - 10/15/21: Called pt and L/M to continue dose and please contact clinic if he needs to RS his INRs. Anticoagulation assessmen t completed as chart review (patient not interviewed). Warfarin dose: 7.5mg TuTh & 5mg all other days ( 40mg/wk); AM Collection DT *INR mg in last 7 days 10/15/2021 local 2.0 40 letter/VM 09/17/2021 [facility] 2.04 40 letter 09/02/2021 local 2.25 37.5 [...] 42.5 letter 12/21/2020 local 2.35 42.5 letter Other Recent Labs Collection DT Spec WBC HGB HCT PLT MCV NEUT LYMP HS 05/28/2021 09:15 BLOOD 4.25 14.2 41.6 216 99.3 5 6.1 25.4 02/28/2021 08:30 BLOOD 4.08 13.5 40.9 L 191 100. 0 52.5 28.4 01/22/2021 09:37 BLOOD 4.88 14.4 43.6 214 100.2 H 53.5 27.9 ASSESSMENT/PLAN: Therapeutic INR, but INR was drawn 2 wee ks ago. Will continue current warfarin dose and reassess INR in 2 weeks w/ other [facility] appt. - Warfarin dose: CONTINUE: 7.5mg TuTh & 5mg all other days (40mg/wk) - Next INR: 10/29/21 at [facility] @9am w/ other labs (usually local lab) - Rx reviewed. - Letter sent to pt. Detailed VM left. Both incl uded the following info: Please do not make any warren ges in your weekly dosages. Continue weekly schedule as below. We can re-check your INR with your other labs on 10/29/21 and the [facility], instead of your local lab. Please note, if you need to change your INR date at your local lab, please call our clinic t o alert us to the date change since we are a scheduled clinic and need to know to look out for your results. Thanks! Time Spent: 10 minutes /mustapha/ Ameena MariaD. Pharmacist Signed: 10/15/2021 12:25
--- OUTSIDE RECORDS SUMMARY | 2022-06-06 11:54 | XMS_ITS | Encounter Summary ---
:1945 Author Organization Department [facility] rs Address [address] [place] [address] Support Name Relationship Address Phone Arti CORONEL Unavailable [address] [place] [address] ADITYA MALIN Unavailable [address] [place] [address] Insurance Providers: All historical and current Section [...] MEDICARE MEDICARE PART May 15, PART B [id number] 800 HOMER HUNTER (WNR) (M) B 2008 94A [phone] ,ELLE MEDICARE MEDICARE PART May 15, PART A [id number] 800 HOMER HUNTER (WNR) (M) A 2008 94A [phone] ,ELLE Selected Encounter This section includes the information on record at [place] for the Encounter. Date/Time Encounter Type Encounter Reason Provider Source Description Oct 30, 2021 QNHP OL DIG TELEPHONE/MEDICIN ICD-10-CM Z51.81 POABNER VALENTINO 01:43 PM ASSMT&MGMT 5-10 E Encounter for ER L therapeutic drug level monitoring with Provider Comments: Encounter For Therapeutic Drug Level Monitoring (ICD-10-CM Z51.81) IHE Encounter Template Text not used by [place] Assessments - Encounter Diagnoses This section includes the primary and secondary diagnoses documented for the Encounter. 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 This section includes future appointments and future orders which are active, pending orscheduled.Future Appointments This section includes appointments that were scheduled to occur 6 months from the date of the Encounter, up to a maximum of 20 appointments. The data comes from all [place] treatment facilities. Appointment Date/Time Appointment Type Appointment Facili ty Name Nov 26, 2021 09:30 AM AMBULATORY - MEDICINE [facility] Nov 26, 2021 10:15 AM AMBULATORY - NONE [facility] Dec 18, 2021 10:30 AM AMBULATORY - NONE [facility] Dec 18, 2021 11:00 AM AMBULATORY - MEDICINE [facility] Dec 18, 2021 11:30 AM AMBULATORY - MEDICINE [facility] Dec 24, 2021 09:30 AM AMBULATORY - MEDICINE [facility] January 21, 2022 09:30 AM AMBULATORY - MEDICINE [facility] Feb 17, 2022 08:00 AM AMBULATORY - NONE [facility] Feb 17, 2022 09:00 AM AMBULATORY - MEDICINE [facility] Feb 17, 2022 10:30 AM AMBULATORY - MEDICINE [facility] Mar 25, 2022 09:30 AM AMBULATORY - NONE [facility] Mar 25, 2022 10:30 AM AMBULATORY - MEDICINE [facility] Apr 04, 2022 08:30 AM AMBULATORY - MEDICINE [facility] Apr 22, 2022 08:30 AM AMBULATORY - NONE [facility] Apr 22, 2022 09:30 AM AMBULATORY - NONE [facility] Apr 22, 2022 09:45 AM AMBULATORY - NONE [facility] Apr 22, 2022 10:30 AM [facility]BULATORY - MEDICINE [facility] Apr 29, 2022 08:15 AM AMBULATORY - NONE [facility] Lab Results: +/- 30 days [...] Interpretation Reference Range Comment Nov 26, 2021 [facility] POC INR(COAGUCHEK) Specimen Type: BLOOD 09:07 AM No comment enter ed. Ordering Provid er: CLAYTON ROLLE Report Released Date/Time: Nov 26, 2021 11:26 AM Reporting Lab: [facility] [address] [facility] [address] Performing Lab: [facility] [address] [facility] [address] POC INR([place]AGUC[place]K) 1.8 Nov 26, 2021 09:04 [facility] BASIC METABOLIC Specimen Type: PLASMA AM PANEL+MG No comment enter ed. Ordering Provid er: MARIELOS PINEDA Report Released Date/Time: Sep 09, 2021 11:03 AM Reporting Lab: [facility] [address] [facility] [address] Performing Lab: [facility] [address] CREATININE 0.9 0.7-1.2 UREA NITROGEN 14 8-26 GLUCOSE 82 74-100 SODIUM 139 136-145 POTASSIUM 4.0 3.5-5.1 CHLORIDE 107 98-107 CO2 26 22-29 CALCIUM 8.9 8.4-10.2 MAGNESIUM 1.9 1.6-2.6 ANION GAP 6 5-15 CREAT EGFR(CKD-EPI) 88 >60 Oct 29, 2021 09:12 [facility] PT/INR(ANTICOAG) Specimen Type: PLASMA AM No comment enter ed. Ordering Provid er: LUISITO NI Report Released Date/Time: Oct 15, 2021 12:25 PM Reporting Lab: [facility] [address] [facility] [address] Performing Lab: [facility] [address] [facility] [address] .INR 2.2 H 0.8-1.1 .PT 26.0 H 9.4-12.5 Oct 29, 2021 09:12 AM [facility] SEROTONIN Specim en Type: SERUM Comment: This t est was developed and its analytical performance characteristics have been determined by [employer] [facility]. It has not been cleared or approved by [facility]. This assay h as been validated pursuant to the CLIA regulations and is used for clinical purposes. Test performed by [employer] [facility] [address] [facility] [place] [address] Phone: Patient Relations Coordinator: Felicia Rizzo MD,PHD,BERTHA Test Reported by [facility], [employer] [facility], [id number] [place] [address] Truman Doan M.D., Ph.D., Director of Laboratories , CLIA [id number] Ordering Provid er: VIKAS SALGUERO Report Released Date/Time: Jun 25, 2021 10:53 AM Reporting Lab: [facility] [address] [facility] [address] Performing Lab: [address] [place] 1190 H 56-244 Oct 29, 2021 [facility] CHROMOGRANIN A([place]) Specime n Type: SERUM 09:12 AM No comment enter ed. Ordering Provid er: VIKAS SALGUERO Report Released Date/Time: Jun 25, 2021 10:53 AM Reporting Lab: [facility] [address] [facility] [address] Performing Lab: [facility] [address] [facility] [address] CHROMOGRANIN A([place]) 65 <92 Oct 29, 2021 09:12 AM [facility] LD,TOTAL Specim en Type: PLASMA No comment enter ed. Ordering Provid er: VIKAS SALGUERO Report Released Date/Time: Jun 25, 2021 10:53 AM Reporting Lab: [facility] [address] [facility] [address] Performing Lab: [facility] [address] [facility] [address] LD,TOTAL 186 125-220 Oct 29, 2021 [facility] COMPREHENSIVE METABOLIC Spec imen Type: PLASMA 09:12 AM PANEL+MG No comment enter ed. Ordering Provid er: VIKAS SALGUERO Report Released Date/Time: Jun 25, 2021 10:53 AM Reporting Lab: [facility] [address] [facility] [address] Performing Lab: [facility] [address] [facility] [address] CREATININE 0.9 0.7-1.2 UREA NITROGEN 14 8-26 GLUCOSE 114 H 74-100 SODIUM 139 136-145 POTASSIUM 4.1 3.5-5.1 CHLORIDE 107 98-107 CO2 29 22-29 CALCIUM 9.0 8.4-10.2 PROTEIN,TOTAL 6.8 6.0-8.3 ALBUMIN 3.7 3.5-5.2 BILIRUBIN, TOTAL 0.9 0.2-1.2 MAGNESIUM 2.1 1.6-2.6 ANION GAP 3 L 5-15 ALKALINE PHOSPHATASE 73 40-150 ALT/SGPT 14 <55 AST/SGOT 16 <34 ESTIMATED GFR(eGFR) 82 >60 Oct 29, 2021 09:12 AM [facility] CBC & DIFF Specim en Type: BLOOD Comment: Sabina navarrete Differential Performed Ordering Provid er: VIKAS SALGUERO Report Released Date/Time: Jun 25, 2021 10:53 AM Reporting Lab: [facility] [address] Performing Lab: [facility] [address] WBC 6.12 4.0-11.0 RBC 4.21 L 4.6-6.2 [...] tobacco-related health factors from the [facility] where the Encounter took place.Current Smoking Status This section includes the most current smoking, or tobacco-related health factor, from the [facility] facility where the Encounter took place. Date/Time Current Smoking Status Comment Facility May 15, 2021 10:00 AM [place]-TOBACCO NEVER USED [employer] [facility] Tobacco Use History This section includes a history of the smoking, or tobacco- related health factors, that were collected on or before the date of the Encounter. The data comes from the [facility] where the Encounter took place. Date/Time Smoking Status/Tobacco Use Comment [facility] Oct 05, 2019 10:05 AM [place]-TO[facility]CO [facility] Oct 20, 2018 12:28 PM INPT NO TOBACCO USE IN LAST 30 DAYS [facility] Sep 15, 2018 01:21 PM [place]-TOBACCO NEVER USED [place] [facility] Aug 11, 2017 08:54 AM LIFETIME NON-TOBACCO USER [facility] Jul 08, 2016 08:07 AM LIFETIME NON-TOBACCO USER [facility] May 09, 2015 02:31 PM LIFETIME NON-TOBACCO USER [facility] Apr 14, 2014 08:41 AM LIFETIME NON-TOBACCO USER [facility] Jan 06, 2007 08:51 AM LIFETIME NON-TOBACCO USER [facility] Encounter Notes: All associated encounter notes This section contains the clinical notes associated to the Encounter. Date/Time Encounter Note(s) Provider Source Oct 30, 2021 01:44 PM PHARMACY OUTPATIENT MEDICATION MGT NOT E: AJITH CAI [facility] LOCAL TITLE: PHARMACY ANTICOAGULATION CLINIC F/ U STANDARD TITLE: PHARMACY OUTPATIENT MEDICATION M GT NOTE DATE OF NOTE: OCT 30, 2021@13:44:16 ENTRY DATE: OCT 30, 2021@13:44:16 AUTHOR: AJITH CAI EXP COSIGNER: URGENCY: STATUS: COMPLETED Indication: A-fib [...] He sees a another primary dr in [place], [facility] Yance[place] [facility] yearly [facility] He sought evalua tion at [place] earlier this year to see if any [...] home phone. Care Coordination: - Local Lab: [facility] Lab Direct P: [phone]; F: [phone] , F: [phone] *New CITC SO sent 06/13/21 *CITC labs valid: 03/27/21-09/23/21, new consult placed 06/13/21 SUBJECTIVE/OBJECTIVE: Assessment completed as chart review; pt was not interviewed. Warfarin dose: 7.5mg TuTh & 5mg all other days ( 40mg/wk); AM Collection DT *INR mg in last 7 days 10/29/2021 09:12 PLASM 2.2 40 letter 10/15/2021 local 2.0 40 letter/VM 09/17/2021 lcoal 2.04 40 letter 09/02/2021 local 2.25 37.5 missed dose 08/19/2021 local 1.86 37.5 08/07/2021 local 1.38 32.5 missed dose 07/23/2021 local 2.2 37.5 new dose 07/10/2021 local 3.4 40 06/25/2021 09:15 PLASM 3.4 42.5 06/11/2021 local 3.44 42.5 alcohol 04/30/2021 local 2.5 42.5 letter Other Recent Labs Collection DT Spec WBC HGB HCT PLT MCV NEUT LYMP HS 10/29/2021 09:12 BLOOD 6.12 14.1 42.1 188 100.0 66.3 16.8 05/28/2021 09:15 BLOOD 4.25 14.2 41.6 216 99.3 5 6.1 25.4 02/28/2021 08:30 BLOOD 4.08 13.5 40.9 L 191 100. 0 52.5 28.4 01/22/2021 09:37 BLOOD 4.88 14.4 43.6 214 100.2 H 53.5 27.9 ASSESSMENT/PLAN: Therapeutic INR. Updated CBC shows stabl e Hgb/plt levels. Next INR in 4 wks to coordinate w/ next [facility] appt already scheduled. - Warfarin dose: CONTINUE: 7.5mg TuTh & 5mg all other days (40mg/wk) - Next INR: 11/26/21 at [facility] POC 10am (usually l ocal lab) - Rx reviewed - Letter mailed Time Spent: 10 min /mustapha/ Ameena OlmedoD, BCACP Clinical Hot Saw Helper Signed: 10/30/2021 16:04
--- OUTSIDE RECORDS SUMMARY | 2022-06-06 11:54 | XMS_ITS | Encounter Summary ---
:1945 Author Organization Department [facility] rs Address [address] [place] [address] Support Name Relationship Address Phone Arti CORONEL Unavailable [address] [facility] [place] [address] ADITYA MALIN Unavailable [address] SHAWANDA [phone] [place] [id number] Insurance Providers: All historical and current Section [...] MEDICARE MEDICARE PART May 15, PART A [id number] 800 HOMER HUNTER (WNR) (M) A 2008 94A [phone] ,ELLE MEDICARE MEDICARE PART May 15, PART B [id number] 800 OHMER HUNTER (WNR) (M) B 2008 94A [id number] ,ELLE Selected Encounter This section includes the information on record at [place] for the Encounter. Date/Time Encounter Type Encounter Reason Provider Source Description Nov 26, 2021 THER/PROPH/DIAG MEDICAL PROCEDURE ICD-10-CM GORDO ARGUETA 09:30 AM INJ SC/IM UNIT Z79.899 Other group home (current) drug therapy with Provider Comments: Other group home (current) drug therapy IHE Encounter Template Text not used by [place] Assessments - Encounter Diagnoses This section includes the primary and secondary diagnoses documented for the Encounter. 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 [...] Date/Time Appointment Type Appointment Facili ty Name Dec 18, 2021 10:30 AM AMBULATORY - NONE [facility] Dec 18, 2021 11:00 AM AMBULATORY - MEDICINE [facility] Dec 18, 2021 11:30 AM AMBULATORY - MEDICINE [facility] Dec 24, 2021 09:30 AM AMBULATORY - MEDICINE [facility] January 21, 2022 09:30 AM AMBULATORY - MEDICINE [facility] Feb 17, 2022 08:00 AM AMBULATORY - NONE [facility] Feb 17, 2022 09:00 AM AMBULATORY - MEDICINE [facility] Feb 17, 2022 10:30 AM AMBULATORY - MEDICINE [facility] Mar 25, 2022 09:30 AM AMBULATORY - NONE [facility] Mar 25, 2022 10:30 AM AMBULATORY - MEDICINE [facility] Apr 04, 2022 08:30 AM AMBULATORY - MEDICINE [facility] Apr 22, 2022 08:30 AM AMBULATORY - NONE [facility] Apr 22, 2022 09:30 AM AMBULATORY - NONE [facility] Apr 22, 2022 09:45 AM AMBULATORY - NONE [facility] Apr 22, 2022 10:30 AM AMBULATORY - MEDICINE [facility] CS Apr 29, 2022 08:15 AM AMBULATORY - NONE [facility] May 05, 2022 08:30 AM AMBULATORY - SURGERY [facility] S May 20, 2022 08:00 AM AMBULATORY - MEDICINE [facility] CS May 20, 2022 08:30 AM AMBULATORY - MEDICINE [facility] CS May 20, 2022 09:30 AM [facility]ULATORY - NONE [facility] [...] [facility] [address] [facility] [phone] Performing Lab: [facility] [address] [facility] [address] POC INR(COAGUCHEK) 1.8 Nov 26, 2021 09:04 [facility] BASIC METABOLIC Specimen Type: PLASMA AM PANEL+MG No comment enter ed. Ordering Provid er: MARIELOS PINEDA Report Released Date/Time: Sep 09, 2021 11:03 AM Reporting Lab: [facility] [address] [facility] [address] Performing Lab: [facility] [address] [facility] [address] CREATININE 0.9 0.7-1.2 UREA NITROGEN 14 8-26 [...] [facility] [address] [facility] [address] Performing Lab: [facility] [address] [facility] [address] .INR 2.2 H 0.8-1.1 .PT 26.0 H 9.4-12.5 Oct 29, 2021 09:12 AM [facility] SEROTONIN Specim en Type: SERUM Comment: This t est was developed and its analytical performance characteristics have been determined by [facility]. It has not been cleared or approved by [facility]. This assay h as been validated pursuant to the CLIA regulations and is used for clinical purposes. Test performed by [facility] [place] [address] [place], [place] [address] Phone: Hand Striper: Felicia Rizzo MD,PHD,BERTHA Test Reported by [facility], [facility], [address] [place], [place] Truman Doan M.D., Ph.D., Director of Laboratories , [facility] [id number] Ordering Provid er: VIKAS SALGUERO Report Released Date/Time: Jun 25, 2021 10:53 AM Reporting Lab: [facility] [address] [facility] [address] Performing Lab: [address] [place] 1190 H 56-244 Oct 29, 2021 [facility] CHROMOGRANIN A([place]) Specime n Type: SERUM 09:12 AM No comment enter ed. Ordering Provid er: VIKAS SALGUERO Report Released Date/Time: Jun 25, 2021 10:53 AM Reporting Lab: [facility] [address] [facility] [address] Performing Lab: [facility] [address] [facility] [address] CHROMOGRANIN A([place]) 65 <92 Oct 29, 2021 09:12 AM [facility] LD,TOTAL Specim en Type: PLASMA No comment enter ed. Ordering Provid er: VIKAS SALGUERO Report Released Date/Time: Jun 25, 2021 10:53 AM Reporting Lab: [facility] [address] [facility] [address] Performing Lab: [facility] [address] [facility] [address] LD,TOTAL 186 125-220 Oct 29, 2021 [facility] COMPREHENSIVE METABOLIC Spec imen Type: PLASMA 09:12 AM PANEL+MG No comment enter ed. Ordering Provid er: VIKAS SALGUERO Report Released Date/Time: Jun 25, 2021 10:53 AM Reporting Lab: [facility] [address] [facility] [address] Performing Lab: [facility] [address] [facility] [address] CREATININE 0.9 0.7-1.2 UREA NITROGEN 14 8-26 [...] Jun 25, 2021 10:53 AM Reporting Lab: [facility] [address] Performing Lab: [facility] [address] WBC 6.12 4.0-11.0 RBC 4.21 L 4.6-6.2 [...] smoking and tobacco-related health factors from the [facility] where the Encounter took place.Current Smoking Status This section includes the most current smoking, or tobacco-related health factor, from the [facility] where the Encounter took place. Date/Time Current Smoking Status Comment Facility May 15, 2021 10:00 AM [place]-TOBACCO NEVER USED [facility] Tobacco Use History This section includes a history of the smoking, or tobacco- related health factors, that were collected on or before the date of the Encounter. The data comes from the [facility] where the Encounter took place. Date/Time Smoking Status/Tobacco Use Comment Thiago kat Oct 05, 2019 10:05 AM [place]-TOBACCO NEVER USED [facility] [facility] Oct 20, 2018 12:28 PM INPT NO TOBACCO USE IN LAST 30 DAYS [facility] Sep 15, 2018 01:21 PM [place]-TOBACCO NEVER USED [facility] [facility] Aug 11, 2017 08:54 AM LIFETIME [...] the Encounter. Date/Time Encounter Note(s) Provider Source Nov 26, 2021 09:27 AM HEMATOLOGY AND ONCOLOGY NURSING OUTPAT IENT NOTE: GORDO ARGUETA [facility] LOCAL TITLE: HEME/ONC PROCEDURE CLINIC NURSING NOTE STANDARD TITLE: HEMATOLOGY AND ONCOLOGY NURSING OUTPATIENT NOTE DATE OF NOTE: NOV 26, 2021@09:27 ENTRY DATE: NOV 26, 2021@09:27:21 AUTHOR: GORDO ARGUETA EXP COSIGNER: URGENCY: STATUS: COMPLETED Date of Service: Nov Diagnosis: Carcinoid Tumor Vital Signs: Height: 70.5 in [179.1 cm] ( 09:49) Weight: 222 lb [100.9 kg] (10/29/2021 09:49) Body Surface Area: 2.24 Temperature: 97.6 F [36.4 C] (10/29/2021 09:49) Blood Pressure (BP): 104/70 (10/29/2021 09:49) Pulse: 74 (10/29/2021 09:49) Respiration: 18 (10/29/2021 09:49) Physician Assitant: ELIZABETH Willson Allergies: DIAL SOAP (Mar 25, 2007) NAPROXEN (February 05, 2011) Non chemo procedures SQ/IM Medication: Octreotide, Susp, SA Dosage: 20mg Site: Left gluteal muscle IM Time: 0910 Patient Response/Status: Patient reports feeling well today. Pt given Octreotide IM injection into left gluteal muscle and covered site with gauze/bandaid. Pt tolerated injection without pr oblems. Pt left clinic ambulatory. DISCHARGED TO: Home at 0910. /mustapha/ GORDO ARGUETA RN, BSN, [facility] STAFF NURSE Signed: 11/26/2021 10:44
--- OUTSIDE RECORDS SUMMARY | 2022-06-06 11:54 | XMS_ITS | Encounter Summary ---
:1945 Author Organization Department [facility] rs Address [address] [place] [address] Support Name Relationship Address Phone Arti CORONEL Unavailable [address] [place] [address] ADITYA MALIN Unavailable [address] SHAWANDA [phone] [place] [id number] Insurance Providers: All historical and current Section [...] MEDICARE MEDICARE PART May 15, PART A [id number] 800 HOMER HUNTER (WNR) (M) A 2008 94A [phone] ,ELLE MEDICARE MEDICARE PART May 15, PART B [id number] 800 HOMER HUNTER (WNR) (M) B 2008 94A [id number] ,ELLE Selected Encounter This section includes the information on record at [place] for the Encounter. Date/Time Encounter Type Encounter Reason Provider Source Description Oct 29, 2021 THER/PROPH/DIAG MEDICAL PROCEDURE ICD-10-CM CHENTELBRARAMESH VANDANA 10:30 AM INJ SC/IM UNIT Z79.899 Other TA K usp (current) drug therapy with Provider Comments: Other usp (current) drug therapy IHE Encounter Template Text not used by [place] Assessments - Encounter Diagnoses This section includes the primary and secondary diagnoses documented for the Encounter. 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 This section includes future appointments and future orders which are active, pending orscheduled.Future Appointments This section includes appointments that were scheduled to occur 6 months from the date of the Encounter, up to a maximum of 20 appointments. The data comes from all [place] treatment facilities. Appointment Date/Time Appointment Type Appointment Facili ty Name Nov 26, 2021 09:30 AM AMBULATORY - MEDICINE [facility] Nov 26, 2021 10:15 AM AMBULATORY - NONE [facility] Dec 18, 2021 10:30 AM AMBULATORY - NONE [facility] Dec 18, 2021 11:00 AM AMBULATORY - MEDICINE [facility] Dec 18, 2021 11:30 AM AMBULATORY - MEDICINE [facility] Dec 24, 2021 09:30 AM AMBULATORY - MEDICINE [facility] January 21, 2022 09:30 AM AMBULATORY - MEDICINE [facility] Feb 17, 2022 08:00 AM AMBULATORY - NONE [facility] Feb 17, 2022 09:00 AM AMBULATORY - MEDICINE [facility] Feb 17, 2022 10:30 AM AMBULATORY - MEDICINE [facility] Mar 25, 2022 09:30 AM AMBULATORY - NONE [facility] Mar 25, 2022 10:30 AM AMBULATORY - MEDICINE [facility] Apr 04, 2022 08:30 AM AMBULATORY - MEDICINE [facility] Apr 22, 2022 08:30 AM AMBULATORY - NONE [facility] Apr 22, 2022 09:30 AM AMBULATORY - NONE [facility] Apr 22, 2022 09:45 AM AMBULATORY - NONE [facility] Apr 22, 2022 10:30 AM AMBULATORY - MEDICINE [facility] Lab Results: +/- 30 days of the encounter This section includes the Chemistry and Hematology Lab Results on record with [place] for the patient. Radiology Reports and Pathology [...] [facility] [address] [facility] [address] Performing Lab: [facility] [address] [facility] [address] POC INR(COAGUCHEK) 1.8 Nov 26, 2021 09:04 [facility] BASIC METABOLIC Specimen Type: PLASMA AM PANEL+MG No comment enter ed. Ordering Provid er: MARIELOS PINEDA Report Released Date/Time: Sep 09, 2021 11:03 AM Reporting Lab: [facility] [address] [facility] [address] Performing Lab: [facility] [address] [facility] [address] CREATININE 0.9 0.7-1.2 UREA NITROGEN 14 8-26 [...] [facility] [address] [facility] [address] Performing Lab: [facility] [address] [facility] [address] .INR 2.2 H 0.8-1.1 .PT 26.0 H 9.4-12.5 Oct 29, 2021 09:12 AM [facility] SEROTONIN Specim en Type: SERUM Comment: This t est was developed and its analytical performance characteristics have been determined by [employer] [facility] [facility]. It has not been cleared or approved by [facility]. This assay h as been validated pursuant to the CLIA regulations and is used for clinical purposes. Test performed by [facility] [address] [place], [place] [address] Phone: Procedures Tech: Felicia Rizzo MD,PHD,BERTHA Test Reported by [facility], [employer] [facility], [address] [place], [place] Truman Doan M.D., Ph.D., Director of Laboratories , [facility] [id number] Ordering Provid er: VIKAS SALGUERO Report Released Date/Time: Jun 25, 2021 10:53 AM Reporting Lab: [facility] [address] [facility] [address] Performing Lab: [address] [place] 1190 H 56-244 Oct 29, 2021 [facility] CHROMOGRANIN A([place]) Specime n Type: SERUM 09:12 AM No comment enter ed. Ordering Provid er: VIKAS SALGUERO Report Released Date/Time: Jun 25, 2021 10:53 AM Reporting Lab: [facility] [address] [facility] [address] Performing Lab: [facility] [address] [facility] [address] CHROMOGRANIN A([place]) 65 <92 Oct 29, 2021 09:12 AM [facility] LD,TOTAL Specim en Type: PLASMA No comment enter ed. Ordering Provid er: VIKAS SALGUERO Report Released Date/Time: Jun 25, 2021 10:53 AM Reporting Lab: [facility] [address] [facility] [address] Performing Lab: [facility] [address] [facility] [address] LD,TOTAL 186 125-220 Oct 29, 2021 [facility] COMPREHENSIVE METABOLIC Spec imen Type: PLASMA 09:12 AM PANEL+MG No comment enter ed. Ordering Provid er: VIKAS SALGUERO Report Released Date/Time: Jun 25, 2021 10:53 AM Reporting Lab: [facility] [address] [facility] [address] Performing Lab: [facility] [address] [facility] [address] CREATININE 0.9 0.7-1.2 UREA NITROGEN 14 8-26 [...] 2021 10:53 AM Reporting Lab: [facility] [address] Performing Lab: [facility] [address] WBC 6.12 4.0-11.0 RBC 4.21 L 4.6-6.2 [...] Sukhwinder dy Source Pressure Rate Mass Index Oct 29, 97.6 F 74 104/70 18 /min 97 % 0 70.5 in 222 lb 31 MINNE AP 2021 09:49 /min mm[Hg] [facility] Social History: Smoking Status (Most current) and Tobacco Use (All prior to encounter date) This section includes the most current, and the historical, smoking and tobacco-related health factors from the [facility] where the Encounter took place.Current Smoking Status This section includes the most current smoking, or tobacco-related health factor, from the [facility] where the Encounter took place. Date/Time Current Smoking Status Comment Facility May 15, 2021 10:00 AM [place]-TOBACCO NEVER USED [facility] Tobacco Use History This section includes a history of the smoking, or tobacco- related health factors, that were collected on or before the date of the Encounter. The data comes from the [facility] where the Encounter took place. Date/Time Smoking Status/Tobacco Use Comment [facility] Oct 05, 2019 10:05 AM [place]-TOBACCO NEVER USED [facility] Oct 20, 2018 12:28 PM INPT NO TOBACCO USE IN LAST 30 DAYS [facility] Sep 15, 2018 01:21 PM [place]-TOBACCO NEVER USED [facility] Aug [...] Encounter Note(s) Provider Source Oct 29, 2021 11:28 AM HEMATOLOGY AND ONCOLOGY NURSING OUTPAT IENT NOTE: JORDYN ZEPEDA [facility] LOCAL TITLE: HEME/ONC PROCEDURE CLINIC NURSING NOTE STANDARD TITLE: HEMATOLOGY AND ONCOLOGY NURSING OUTPATIENT NOTE DATE OF NOTE: OCT 29, 2021@11:28 ENTRY DATE: OCT 29, 2021@11:28:11 AUTHOR: JORDYN ZEPEDA EXP COSIGNER: URGENCY: STATUS: COMPLETED Date of Service:Oct 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 Vital Signs: Height: 70.5 in [179.1 cm] ( 09:49) Weight: 222 lb [100.9 kg] (10/29/2021 09:49) Body Surface Area: 2.24 Temperature: 97.6 F [36.4 C] (10/29/2021 09:49) Blood Pressure (BP): 104/70 (10/29/2021 09:49) Pulse: 74 (10/29/2021 09:49) Respiration: 18 (10/29/2021 09:49) Physician: Other: Immanuel Turk Allergies: DIAL SOAP (Mar 25, 2007) NAPROXEN (February 05, 2011) Labs: CBC + Diff: WBC 6.12 (10/29/21) ABS NEUT 4.06 (10/29/21) HGB 14.1 (10/29/21) PLT 188 (10/29/21) Chemistry: SODIUM 139 (10/29/21) POTASSIUM 4.1 (10/29/21) CALCIUM 9.0 (10/29/21) MAGNESIUM 2.1 (10/29/21) CREATININE 0.9 (10/29/21) ALK PHOSPHATASE 73 (10/29/21) SGPT 14 (10/29/21) SGOT 16 (10/29/21) BILIRUBIN, TOTAL 0.9 (10/29/21) Tumor Markers: CEA____ CA 125 TUMOR MARKER____ CA 19-9____ PSA - NONE FOUND Non chemo procedures SQ/IM Medication: Octreotide LAR IM Dosage: 20mg Site: right glute Time: 1120 Patient Response/Status:Patient ambulatory in an d out of clinic. Patient tolerated IM injection to right glute without co mplication. Injection site covered with bandage. DISCHARGED TO: Home at 1125 /es/ JORDYN ZEPEDA RN REGISTERED NURSE Signed: 10/29/2021 11:35
--- OUTSIDE RECORDS SUMMARY | 2022-06-06 11:55 | XMS_ITS | Encounter Summary ---
:1945 Author Organization Department [facility] rs Address [address] [place] [address] Support Name Relationship Address Phone Arti CORONEL Unavailable [address] [place] [address] ADITYA MLAIN Unavailable [address] [place] [address] Insurance Providers: All historical and current Section [...] MEDICARE MEDICARE PART May 15, PART A [id number] 800 HOMER HUNTER (WNR) (M) A 2008 94A [phone] ,ELLE MEDICARE MEDICARE PART May 15, PART B [id number] 800 HOM[address] HUNTER (WNR) (M) B 2008 94A [id number] ,ELLE Selected Encounter This section includes the information on record at [place] for the Encounter. Date/Time Encounter Type Encounter Reason Provider Source Description Nov 27, 2021 [facility] OL DIG TELEPHONE/MEDICIN ICD-10-CM Z51.81 COLLINS GARCIA 12:25 PM ASSMT&MGMT 5-10 E Encounter for AH L therapeutic drug level monitoring with Provider Comments: Encounter For Therapeutic Drug Level Monitoring (ICD-10-CM Z51.81) IHE Encounter Template Text not used by [facility] Assessments - Encounter Diagnoses This section includes the primary and secondary diagnoses documented for the Encounter. 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 This section includes future appointments and future orders which are active, pending orscheduled.Future Appointments This section includes appointments that were scheduled to occur 6 months from the date of the Encounter, up to a maximum of 20 appointments. The data comes from all [place] treatment facilities. Appointment Date/Time Appointment Type Appointment Facili ty Name Dec 18, 2021 10:30 AM AMBULATORY - NONE [facility] Dec 18, 2021 11:00 AM AMBULATORY - MEDICINE [facility] Dec 18, 2021 11:30 AM AMBULATORY - [facility]ICINE [facility] Dec 24, 2021 09:30 AM AMBULATORY - MEDICINE [facility] January 21, 2022 09:30 AM AMBULATORY - MEDICINE [facility] Feb 17, 2022 08:00 AM AMBULATORY - NONE [facility] Feb 17, 2022 09:00 AM AMBULATORY - MEDICINE [facility] Feb 17, 2022 10:30 AM [facility] Mar 25, 2022 09:30 AM AMBULATORY - NONE [facility] Mar 25, 2022 10:30 AM AMBULATORY - MEDICINE [facility] Apr 04, 2022 08:30 AM AMBUL[facility]ORY - MEDICINE [facility] Apr 22, 2022 08:30 AM AMBULATORY - NONE [facility] Apr 22, 2022 09:30 AM AMBULATORY - NONE [facility] Apr 22, 2022 09:45 AM AMBULATORY - NONE [facility] Apr 22, 2022 10:30 AM AMBULATORY - MEDICINE [facility] Apr 29, 2022 08:15 AM AMBULATORY - NONE [facility] May 05, 2022 08:30 AM AMBULATORY - SURGERY [facility] May 20, 2022 08:00 AM [facility] May 20, 2022 08:30 AM AMBULATORY - MEDICINE [facility] May 20, 2022 09:30 AM AMBULATORY - NONE [facility] Lab Results: +/- 30 days of [...] Interpretation Reference Range Comment Nov 26, 2021 [facility] POC INR(COAGUCHEK) Specimen Type: BLOOD 09:07 AM No comment enter ed. Ordering Provid er: CLAYTON ROLLE Report Released Date/Time: Nov 26, 2021 11:26 AM Reporting Lab: [facility] [address] [facility] [address] Performing Lab: [facility] [address] POC INR(COAGUCHEK) 1.8 Nov 26, 2021 09:04 [facility] BASIC METABOLIC Specimen Type: PLASMA AM PANEL+MG No comment enter ed. Ordering Provid er: MARIELOS PINEDA Report Released Date/Time: Sep 09, 2021 11:03 AM Reporting Lab: [facility] [address] Performing Lab: [facility] [address] CREATININE 0.9 0.7-1.2 UREA NITROGEN 14 8-26 GLUCOSE 82 74-100 SODIUM 139 136-145 POTASSIUM 4.0 3.5-5.1 CHLORIDE 107 98-107 CO2 26 22-29 CALCIUM 8.9 8.4-10.2 MAGNESIUM 1.9 1.6-2.6 ANION GAP 6 5-15 CREAT EGFR(CKD-EPI) 88 >60 Oct 29, 2021 09:12 [facility] PT/INR(ANTICOAG) Specimen Type: PLASMA AM No comment enter ed. Ordering Provid er: LUISITO NI Report Released Date/Time: Oct 15, 2021 12:25 PM Reporting Lab: [facility] [address] Performing Lab: [facility] [address] .INR 2.2 H 0.8-1.1 .PT 26.0 H 9.4-12.5 Oct 29, 2021 09:12 AM [facility] SEROTONIN Specim en Type: SERUM Comment: This t est was developed and its analytical performance characteristics have been determined by [facility]. It has not been cleared or approved by Lalo MULTANI. This assay h as been validated pursuant to the CLIA regulations and is used for clinical purposes. Test performed by [facility] [address] [address] [facility] [place] [address] Phone: Boat Operator: Felicia Rizzo MD,PHD,BERTHA Test Reported by [facility], [address] [place] [address] Truman Doan M.D., Ph.D., Director of Laboratories , CLIA [id number] Ordering Provid er: VIKAS SALGUERO Report Released Date/Time: Jun 25, 2021 10:53 AM Reporting Lab: [facility] [address] [facility] [address] Performing Lab: [address] SEROTONIN 1190 H 56-244 Oct 29, 2021 [facility] CHROMOGRANIN A(SPERRY) Specime n Type: SERUM 09:12 AM No comment enter ed. Ordering Provid er: VIKAS SALGUERO Report Released Date/Time: Jun 25, 2021 10:53 AM Reporting Lab: [facility] [address] [facility] [address] Performing Lab: [facility] [address] [place] [facility] [address] CHROMOGRANIN A(SPERRY) 65 <92 Oct 29, 2021 09:12 AM [facility] LD,TOTAL Specim en Type: PLASMA No comment enter ed. Ordering Provid er: VIKAS SALGUERO Report Released Date/Time: Jun 25, 2021 10:53 AM Reporting Lab: [facility] [address] [facility] [address] Performing Lab: [facility] [address] [facility] [address] LD,TOTAL 186 125-220 Oct 29, 2021 [facility] COMPREHENSIVE METABOLIC Spec imen Type: PLASMA 09:12 AM PANEL+MG No comment enter ed. Ordering Provid er: VIKAS SALGUERO Report Released Date/Time: Jun 25, 2021 10:53 AM Reporting Lab: [facility] [address] [facility] [address] Performing Lab: [facility] [address] CREATININE 0.9 0.7-1.2 UREA NITROGEN 14 8-26 GLUCOSE 114 H 74-100 SODIUM 139 136-145 POTASSIUM 4.1 3.5-5.1 CHLORIDE 107 98-107 CO2 29 22-29 CALCIUM 9.0 8.4-10.2 PROTEIN,TOTAL 6.8 6.0-8.3 ALBUMIN 3.7 3.5-5.2 BILIRUBIN, TOTAL 0.9 0.2-1.2 MAGNESIUM 2.1 1.6-2.6 ANION GAP 3 L 5-15 ALKALINE PHOSPHATASE 73 40-150 ALT/SGPT 14 <55 AST/SGOT 16 <34 ESTIMATED GFR(eGFR) 82 >60 Oct 29, 2021 09:12 AM [facility] CBC & DIFF Specim en Type: BLOOD Comment: Sabina navarrete Differential Performed Ordering Provid er: VIKAS SALGUERO Report Released Date/Time: Jun 25, 2021 10:53 AM Reporting Lab: [facility] [address] Performing Lab: [facility] [address] WBC 6.12 4.0-11.0 RBC 4.21 L 4.6-6.2 [...] smoking and tobacco-related health factors from the [place] facility where the Encounter took place.Current Smoking Status This section includes the most current smoking, or tobacco-related health factor, from the [facility] where the Encounter took place. Date/Time Current Smoking Status Comment Facility May 15, 2021 10:00 AM [place] [facility] Tobacco Use History This section includes a history of the smoking, or tobacco- related health factors, that were collected on or before the date of the Encounter. The data comes from the [facility] where the Encounter took place. Date/Time Smoking Status/Tobacco Use Comment [facility] Oct 05, 2019 10:05 AM [place] [facility] Oct 20, 2018 12:28 PM INPT NO TOBACCO USE IN LAST 30 DAYS [facility] Sep 15, 2018 01:21 PM [place]-TOBACCO NEVER USED [place] [facility] Aug 11, 2017 08:54 AM LIFETIME NON-TOBACCO USER [facility] Jul 08, 2016 08:07 AM LIFETIME NON-TOBACCO USER [facility] May 09, 2015 02:31 PM LIFETIME NON-TOBACCO USER [facility] Apr 14, 2014 08:41 AM LIFETIME NON-TOBACCO USER [facility] Jan 06, 2007 08:51 AM LIFETIME NON-TOBACCO USER [facility] Encounter Notes: All associated encounter notes This section contains the clinical notes associated to the Encounter. 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 Care Coordination: - Local Lab: [facility] P: [phone]; F: [phone] , F: [phone] *New CITC SO sent 06/13/21 *[facility] labs valid: 03/27/21-09/23/21, new consult placed 06/13/21 SUBJECTIVE/OBJECTIVE: Assessment completed as chart review; pt was not interviewed. - Unable to reach patient 11/27/21 - Left detailed VM on home & cells phones Warfarin dose: 7.5mg TuTh & 5mg all other days ( 40mg/wk); AM Collection DT *INR mg in last 7 days 11/26/2021 09:07 BLOOD 1.8 40 VM + letter 10/29/2021 09:12 PLASM 2.2 40 letter 10/15/2021 local 2.0 40 letter/VM 09/17/2021 local 2.04 40 letter 09/02/2021 local 2.25 37.5 [...] 43.6 214 100.2 H 53.5 27.9 ASSESSMENT/PLAN: Slightly subTherapeutic INR; unable to reach pat ient for etiology. Recommend continue current warfarin dose and recheck INR i n 2 weeks. - Warfarin dose: CONTINUE: 7.5mg TuTh & 5mg all other days (40mg/wk) - Next INR: 12/10/21 at local lab - Rx reviewed - Left detailed VM with above plan & clinic phon e number - Letter mailed Time Spent: 10 min /mustapha/ JEANNETTE GARCIA, YAMILETH CLINICAL CHEMISTRY RESEARCH ASSISTANT Signed: 11/27/2021 12:31
--- OUTSIDE RECORDS SUMMARY | 2022-06-06 11:55 | XMS_ITS | Encounter Summary ---
:1945 [address] [facility] Address [address] [place] [address] Support Name Relationship Address Phone Arti CORONEL Unavailable [address] [place] [address] ADITYA MALIN Unavailable [address] [place] [place] [address] Insurance Providers: All historical and current Section [...] MEDICARE MEDICARE PART May 15, PART A [id number] 800 HOMER HUNTER (WNR) (M) A 2008 94L [phone] ,ELLE MEDICARE MEDICARE PART May 15, PART B [id number] 800 [address] HUNTER (WNR) (M) B 2008 94A [id number] ,ELLE Selected Encounter This section includes the information on record at [place] for the Encounter. Date/Time Encounter Type Encounter Description Reason Provider Source Dec 10, 2021 03:27 Outpatient Encounter CLINICAL PHARMACY PM IHE Encounter Template Text not used by [place] Plan of Treatment: Future Appointments (+ 6 months) and Future Tests (+/- 45 days) The Plan of Treatment section includes future care activities for the patient from all [place] treatmentfacilities. This section includes future appointments and future orders which are active, pending orscheduled.Future Appointments This section includes appointments that were scheduled to occur 6 months from the date of the Encounter, up to a maximum of 20 appointments. The data comes from all [place] treatment facilities. Appointment Date/Time Appointment Type Appointment Facili ty Name Dec 18, 2021 10:30 AM AMBULATORY - NONE [facility] Dec 18, 2021 11:00 AM AMBULATORY - MEDICINE [facility] Dec 18, 2021 11:30 AM AMBULATORY - MEDICINE [facility] Dec 24, 2021 09:30 AM AMBULATORY - MEDICINE [facility] January 21, 2022 09:30 AM AMBULATORY - MEDICINE [facility] Feb 17, 2022 08:00 AM AMBULATORY - NONE [facility] Feb 17, 2022 09:00 AM AMBULATORY - MEDICINE [facility] Feb 17, 2022 10:30 AM AMBULATORY - MEDICINE [facility] Mar 25, 2022 09:30 AM AMBULATORY - NONE [facility] Mar 25, 2022 10:30 AM AMBULATORY - MEDICINE [facility] Apr 04, 2022 08:30 AM AMBULATORY - MEDICINE [facility] Apr 22, 2022 08:30 AM AMBULATORY - NONE [facility] Apr 22, 2022 09:30 AM AMBULATORY - NONE [facility] Apr 22, 2022 09:45 AM AMBULATORY - NONE [facility] Apr 22, 2022 10:30 AM AMBULATORY - MEDICINE [facility] Apr 29, 2022 08:15 AM AMBULATORY - NONE [facility] May 05, 2022 08:30 AM AMBULATORY - SURGERY [facility] May 20, 2022 08:00 AM AMBULATORY - MEDICINE [facility] May 20, 2022 08:30 AM AMBULATORY - MEDICINE [facility] May 20, 2022 09:30 AM AMBULATORY - NONE [facility] Lab Results: +/- 30 days of the encounter This section includes the Chemistry and Hematology Lab Results on record with [place] for the patient. Radiology Reports and Pathology Reports are provided separately, in subsequent sections.Lab Results This section contains the Chemistry/Hematology Results that were resulted 30 days before or 30 daysafter the date of the Encounter. Date/Time Source Result Type Result - Unit Interpretation Reference Range Comment Nov 26, 2021 [facility] POC INR(COAGUCHEK) Specimen Type: BLOOD 09:07 AM No comment enter ed. Ordering Provid er: CLAYTON ROLLE Report Released Date/Time: Nov 26, 2021 11:26 AM Reporting Lab: [facility] [address] Performing Lab: [facility] [address] POC INR(COAGUCHEK) 1.8 Nov 26, 2021 09:04 [facility] BASIC METABOLIC Specimen Type: PLASMA AM PANEL+MG No comment enter ed. Ordering Provid er: MARIELOS PINEDA Report Released Date/Time: Sep 09, 2021 11:03 AM Reporting Lab: [facility] [address] [facility] [address] Performing Lab: [facility] [address] [facility] [address] CREATININE 0.9 0.7-1.2 UREA NITROGEN 14 8-26 GLUCOSE 82 74-100 SODIUM 139 136-145 POTASSIUM 4.0 3.5-5.1 CHLORIDE 107 98-107 CO2 26 22-29 CALCIUM 8.9 8.4-10.2 MAGNESIUM 1.9 1.6-2.6 ANION GAP 6 5-15 CREAT EGFR(CKD-EPI) 88 >60 Social History: Smoking Status (Most current) and Tobacco Use (All prior to encounter date) This section includes the most current, and the historical, smoking and tobacco-related health factors from the [place] facility where the Encounter took place.Current Smoking Status This section includes the most current smoking, or tobacco-related health factor, from the [place] facility where the Encounter took place. Date/Time Current Smoking Status Comment Facility May 15, 2021 10:00 AM [place] Tobacco Use History This section includes a history of the smoking, or tobacco- related health factors, that were collected on or before the date of the Encounter. The data comes from the [place] facility where the Encounter took place. Date/Time Smoking Status/Tobacco Use Comment [facility] Oct 05, 2019 10:05 AM [place]ED [place] [facility] Oct 20, 2018 12:28 PM INPT NO TOBACCO USE IN LAST 30 DAYS [facility] Sep 15, 2018 01:21 PM [place]-TOBACCO [place] USED [place] [facility] Aug [...] the Encounter. Date/Time Encounter Note(s) Provider Source Dec 10, 2021 03:27 PM PHARMACY NOTE: LELA GUZMAN [facility] LOCAL TITLE: ANTICOAG ENTRY OF OUTSIDE LABS STANDARD TITLE: PHARMACY NOTE DATE OF NOTE: DEC 10, 2021@15:27 ENTRY DATE: DEC 10, 2021@15:27:19 AUTHOR: LELA GUZMAN EXP COSIGNER: URGENCY: STATUS: COMPLETED INR: Date: December 10, 2021 Results: 2.25 Location: [facility] /mustapha/ LELA GUZMAN Outpatient MSA Sourcer Signed: 12/10/2021 15:28 Receipt Acknowledged By: 12/10/2021 15:34 /mustapha/ Isabela Auguste Cert. Alena adame Tech Cert. [place] Hand
--- OUTSIDE RECORDS SUMMARY | 2022-06-06 11:56 | XMS_ITS | Encounter Summary ---
:1945 Author Organization Department [facility] rs Address [address] [place] [address] Support Name Relationship Address Phone Arti CORONEL Unavailable [address] [facility] [place] [address] ADITYA MALIN Unavailable [address] [place] [phone] Insurance Providers: All historical and current Section [...] MEDICARE MEDICARE PART May 15, PART A [id number] 800 HOMER HUNTER (WNR) (M) A 2008 94A [phone] ,ELLE MEDICARE MEDICARE PART May 15, PART B [id number] 800 HOMER HUNTER (WNR) (M) B 2008 94A [id number] ,ELLE Selected Encounter This section includes the information on record at NH for the Encounter. Date/Time Encounter Type Encounter Reason Provider Source Description Dec 11, 2021 HC PRO PHONE TELEPHONE/MEDICIN ICD-10-CM Z51.81 VICTORIANO SPRING 09:15 AM CALL 11-20 MIN E Encounter for W S therapeutic drug level monitoring with Provider Comments: Encounter for therapeutic drug level monitoring IHE Encounter Template Text not used by NH Assessments - Encounter Diagnoses This section includes the primary and secondary diagnoses documented for the Encounter. Date/Time Primary/Secondary Diagnosis Name Provider Source Diagnosis Dec 11, 2021 PRIMARY Encounter for TADEO SPRING V A 09:15 AM therapeutic drug [facility] level monitoring Dec 11, 2021 SECONDARY FDC (current) [facility] 09:15 AM use of [facility] anticoagulants Dec 11, 2021 SECONDARY Unspecified atrial [facility]O SPRING [facility] 09:15 AM fibrillation [facility] Plan of Treatment: Future Appointments (+ 6 months) and Future Tests (+/- 45 days) The Plan of Treatment section includes future care activities for the patient from all NH treatmentfacilities. This section includes future appointments and future orders which are active, pending orscheduled.Future Appointments This section includes appointments that were scheduled to occur 6 months from the date of the Encounter, up to a maximum of 20 appointments. The data comes from all NH treatment facilities. Appointment Date/Time Appointment Type Appointment Facili ty Name Dec 18, 2021 10:30 AM AMBULATORY - NONE [facility] Dec 18, 2021 11:00 AM AMBULATORY - MEDICINE [facility] Dec 18, 2021 11:30 AM AMBULATORY - MEDICINE [facility] Dec 24, 2021 09:30 AM AMBULATORY - MEDICINE [facility] January 21, 2022 09:30 AM AMBULATORY - MEDICINE [facility] Feb 17, 2022 08:00 AM AMBULATORY - NONE [facility] Feb 17, 2022 09:00 AM AMBULATORY - MEDICINE [facility] Feb 17, 2022 10:30 AM AMBULATORY - MEDICINE [facility] Mar 25, 2022 09:30 AM AMBULATORY - NONE [facility] Mar 25, 2022 10:30 AM AMBULATORY - MEDICINE [facility] Apr 04, 2022 08:30 AM AMBULATORY - MEDICINE [facility] Apr 22, 2022 08:30 AM AMBULATORY - NONE [facility] Apr 22, 2022 09:30 AM AMBULATORY - NONE [facility] Apr 22, 2022 09:45 AM AMBULATORY - NONE [facility] Apr 22, 2022 10:30 AM AMBULATORY - MEDICINE [facility] Apr 29, 2022 08:15 AM AMBULATORY - NONE [facility] May 05, 2022 08:30 AM AMBULATORY - SURGERY [facility] May 20, 2022 08:00 AM AMBULATORY - MEDICINE [facility] May 20, 2022 08:30 AM AMBULATORY - MEDICINE [facility] May 20, 2022 09:30 AM AMBULATORY - NONE [facility] Lab Results: +/- 30 days of the encounter This section includes the Chemistry and Hematology Lab Results on record with NH for the patient. Radiology Reports and Pathology Reports are provided separately, in subsequent sections.Lab Results This section contains the Chemistry/Hematology Results that were resulted 30 days before or 30 daysafter the date of the Encounter. Date/Time Source Result Type Result - Unit Interpretation Reference Range Comment Nov 26, 2021 [facility] POC INR(COAGUCHEK) Specimen Type: BLOOD 09:07 AM No comment enter ed. Ordering Provid er: CLAYTON ROLLE Report Released Date/Time: Nov 26, 2021 11:26 AM Reporting Lab: [facility] [address] [facility] [id number] Performing Lab: [facility] [id number] POC INR(COAGUCHEK) 1.8 Nov 26, 2021 09:04 [facility] BASIC METABOLIC Specimen Type: PLASMA AM PANEL+MG No comment enter ed. Ordering Provid er: MARIELOS PINEDA Report Released Date/Time: Sep 09, 2021 11:03 AM Reporting Lab: [facility] [id number] Performing Lab: [facility] [id number] CREATININE 0.9 0.7-1.2 UREA NITROGEN 14 8-26 [...] smoking and tobacco-related health factors from the NH facility where the Encounter took place.Current Smoking Status This section includes the most current smoking, or tobacco-related health factor, from the NH facility where the Encounter took place. Date/Time Current Smoking Status Comment Facility May 15, 2021 10:00 AM NH-TOBACCO NEVER USED [facility] Tobacco Use History This section includes a history of the smoking, or tobacco- related health factors, that were collected on or before the date of the Encounter. The data comes from the NH facility where the Encounter took place. Date/Time Smoking Status/Tobacco Use Comment [facility] Oct 05, 2019 10:05 AM NH-TOBACCO NEVER USED MELISSA HOYT [facility] Oct 20, 2018 12:28 PM INPT NO TOBACCO USE IN LAST 30 DAYS [facility] Sep 15, 2018 01:21 PM [place]-TOBACCO NEVER USED JANINEN EVELINA [facility] Aug 11, 2017 08:54 AM LIFETIME NON-TOBACCO USER [facility] Jul 08, 2016 08:07 AM LIFETIME NON-TOBACCO USER [facility] May 09, 2015 02:31 PM LIFETIME NON-TOBACCO USER [facility] Apr 14, 2014 08:41 AM LIFETIME NON-TOBACCO USER [facility] Jan 06, 2007 08:51 AM LIFETIME NON-TOBACCO USER [facility] Encounter Notes: All associated encounter notes This section contains the clinical notes associated to the Encounter. Date/Time Encounter Note(s) Provider Source Dec 11, 2021 09:15 AM PHARMACY OUTPATIENT MEDICATION MGT NOT E: RUEL SPRING [facility] LOCAL TITLE: PHARMACY ANTICOAGULATION CLINIC F/ U STANDARD TITLE: PHARMACY OUTPATIENT MEDICATION M GT NOTE DATE OF NOTE: DEC 11, 2021@09:15 ENTRY DATE: DEC 11, 2021@09:15:24 AUTHOR: RUEL SPRING EXP COSIGNER: URGENCY: STATUS: [...] home phone. Care Coordination: - Local Lab: [facility] Lab Direct P: [phone]; F: [phone] , F: [phone] *New [facility]ITC SO sent 06/13/21 *[facility] labs valid: 03/27/21-09/23/21, new consult placed 06/13/21 SUBJECTIVE/OBJECTIVE: Assessment completed as chart review; pt was not interviewed. Warfarin dose: 7.5mg TuTh & 5mg all other days ( 40mg/wk); AM Collection DT *INR mg in last 7 days 12/10/2021 local 2.25 40 letter 11/26/2021 09:07 BLOOD 1.8 40 VM + [...] 100.2 H 53.5 27.9 ASSESSMENT/PLAN: Therapeutic INR. Recheck in 4 weeks. - Warfarin dose: CONTINUE: 7.5mg TuTh & 5mg all other days (40mg/wk) - Next INR: 01/07/22 at local lab - Rx reviewed - Letter mailed Time Spent: 15 min /mustapha/ RUEL SPRING CLINICAL PHARMACIST Signed: 12/11/2021 09:22
--- OUTSIDE RECORDS SUMMARY | 2022-06-06 11:56 | XMS_ITS | Encounter Summary ---
:1945 Author Organization Department of [facility] rs Address [address] [place] [address] Support Name Relationship Address Phone Arti CORONEL Unavailable [address] [place] [address] ADITYA MALIN Unavailable [address] [place] [phone] Insurance Providers: All historical and current Section [...] MEDICARE MEDICARE PART May 15, PART A [id number] 800 HOMER HUNTER (WNR) (M) A 2008 94A [phone] ,ELLE MEDICARE MEDICARE PART May 15, PART B [id number] 800 HOMER DEL VALLEIENT (WNR) (M) B 2008 94A [phone] ,ELLE Selected Encounter This section includes the information on record at [place] for the Encounter. Date/Time Encounter Type Encounter Description Reason Provider Source Dec 10, 2021 12:00 Outpatient Encounter EVENT (HISTORICAL) [...] 18, 2021 11:00 AM AMBULATORY - MEDICINE [facility] Dec 18, 2021 11:30 AM AMBULATORY - MEDICINE [facility] Dec 24, 2021 09:30 AM AMBULATORY - MEDICINE [facility] January 21, 2022 09:30 AM AMBULATORY - MEDICINE [facility] Feb 17, 2022 08:00 AM AMBULATORY - NONE [facility] Feb 17, 2022 09:00 AM AMBULATORY - MEDICINE [facility] Feb 17, 2022 10:30 AM AMBULATORY - MEDICINE [facility] Mar 25, 2022 09:30 AM AMBULATORY - NONE [facility] Mar 25, 2022 10:30 AM AMBULATORY - MEDICINE [facility] Apr 04, 2022 08:30 AM AMBULATORY - MEDICINE [facility] Apr 22, 2022 08:30 AM AMBULATORY - NONE [facility] Apr 22, 2022 09:30 AM AMBULATORY - NONE [facility] Apr 22, 2022 09:45 AM AMBULATORY - NONE [facility] Apr 22, 2022 10:30 AM AMBULATORY - MEDICINE [facility] Apr 29, 2022 08:15 AM AMBULATORY - NONE [facility] May 05, 2022 08:30 AM AMBULATORY - SURGERY [facility] May 20, 2022 08:00 AM AMBULATORY - MEDICINE [facility] May 20, 2022 08:30 AM AMBULATORY - MEDICINE [facility] May 20, 2022 09:30 AM AMBULATORY - NONE [facility] Lab Results: +/- 30 days [...] 2021 11:26 AM Reporting Lab: [facility] [address] [facility] [id number] Performing Lab: [facility] [id number] POC INR(COAGUCHEK) 1.8 Nov 26, 2021 09:04 [facility] BASIC METABOLIC Specimen Type: PLASMA AM PANEL+MG No comment enter ed. Ordering Provid er: MARIELOS PINEDA Report Released Date/Time: Sep 09, 2021 11:03 AM Reporting Lab: [facility] [address] [facility] [phone] Performing Lab: [facility] [address] [facility] [id number] CREATININE 0.9 0.7-1.2 UREA NITROGEN 14 8-26 [...] Comment Facility May 15, 2021 10:00 AM [place]-TOBACCO NEVER USED [place] [facility] Tobacco Use History This section includes a history of the smoking, or tobacco- related health factors, that were collected on or before the date of the Encounter. The data comes from the [place] facility where the Encounter took place. Date/Time Smoking Status/Tobacco Use Comment [facility] Oct 05, 2019 10:05 AM [place]-TOBACCO NEVER USED [place] [facility] Oct 20, 2018 12:28 PM INPT NO TOBACCO USE IN LAST 30 DAYS [facility] Sep 15, 2018 01:21 PM [place]-TOBACCO NEVER USED [place] [facility] [...]
--- OUTSIDE RECORDS SUMMARY | 2022-06-06 11:57 | XMS_ITS | Encounter Summary ---
:1945 Author Organization Department [facility] rs Address [address] [place] [id number] Support Name Relationship Address Phone Arti CORONEL Unavailable [address] [facility] [place] [address] ADITYA MALIN Unavailable [address] [place] [address] Insurance Providers: All historical and current Section [...] MEDICARE MEDICARE PART May 15, PART A [id number] 800 HOMER HUNTER (WNR) (M) A 2008 94A [phone] ,ELLE MEDICARE MEDICARE PART May 15, PART B [id number] 800 HOMER HUNTER (WNR) (M) B 2008 94A [id number] ,ELLE Selected Encounter This section includes the information on record at [place] for the Encounter. Date/Time Encounter Type Encounter Reason Provider Source Description Dec 24, 2021 THER/PROPH/DIAG MEDICAL PROCEDURE ICD-10-CM GORDO ARGUETA 09:30 AM INJ [place]/IM UNIT Z79.899 Other residential (current) drug therapy with Provider Comments: Other residential (current) drug therapy IHE Encounter Template Text not used by [place] Assessments - Encounter Diagnoses This section includes the primary and secondary diagnoses documented for the Encounter. Date/Time Primary/Secondary Diagnosis Name Provider Source Diagnosis Dec 24, 2021 PRIMARY Other residential GORDO ARGUETA [facility] 10:32 AM (current) drug [facility] therapy Dec 24, 2021 SECONDARY Malignant GORDO ARGUETA [facility] 10:32 AM carcinoid tumor HCS of unspecified site [...] Date/Time Appointment Type Appointment Facili ty Name January 21, 2022 09:30 AM AMBULATORY - MEDICINE [facility] Feb 17, 2022 08:00 AM AMBULATORY - NONE [facility] Feb 17, 2022 09:00 AM AMBULATORY - MEDICINE [facility] Feb 17, 2022 10:30 AM AMBULATORY - MEDICINE [facility] Mar 25, 2022 09:30 AM AMBULATORY - NONE [facility] Mar 25, 2022 10:30 AM AMBULATORY - MEDICINE [facility] Apr 04, 2022 08:30 AM AMBULATORY - MEDICINE [facility] Apr 22, 2022 08:30 AM AMBULATORY - NONE [facility] Apr 22, 2022 09:30 AM AMBULATORY - NONE [facility] Apr 22, 2022 09:45 AM AMBULATORY - NONE [facility] Apr 22, 2022 10:30 AM AMBULATORY - MEDICINE [facility] Apr 29, 2022 08:15 AM AMBULATORY - NONE [facility] May 05, 2022 08:30 AM AMBULATORY - SURGERY [facility] S May 20, 2022 08:00 AM AMBULATORY - MEDICINE [facility] May 20, 2022 08:30 AM AMBULATORY - MEDICINE [facility] CS May 20, 2022 09:30 AM AMBULATORY - NONE [facility] May 20, 2022 10:30 AM AMBULATORY - MEDICINE [facility] May 23, 2022 02:45 PM AMBULATORY - SURGERY [facility] S Jun 17, 2022 08:00 AM AMBULATORY - NONE [facility] Jun 17, 2022 09:00 AM AMBULATORY - MEDICINE [facility] Lab Results: +/- 30 days [...] 11:26 AM Reporting Lab: [facility] [address] [facility] [address] Performing Lab: [facility] [address] [facility] [id number] POC INR(COAGUCHEK) 1.8 Nov 26, 2021 09:04 [facility] BASIC METABOLIC Specimen Type: PLASMA AM PANEL+MG No comment enter ed. Ordering Provid er: MARIELOS PINEDA Report Released Date/Time: Sep 09, 2021 11:03 AM Reporting Lab: [facility] [address] [facility] [address] Performing Lab: [facility] [address] [facility] [address] CREATININE 0.9 0.7-1.2 UREA NITROGEN 14 8-26 [...] smoking and tobacco-related health factors from the [facility] where the Encounter took place.Current Smoking Status This section includes the most current smoking, or tobacco-related health factor, from the [place] facility where the Encounter took place. Date/Time Current Smoking Status Comment Facility May 15, 2021 10:00 AM [place]-TOBACCO NEVER USED [facility] Tobacco Use History This section includes a history of the smoking, or tobacco- related health factors, that were collected on or before the date of the Encounter. The data comes from the [place] facility where the Encounter took place. Date/Time Smoking Status/Tobacco Use Comment [facility] Oct 05, 2019 10:05 AM [place]-TOBACCO NEVER USED [place] [facility] Oct 20, 2018 12:28 PM INPT NO TOBACCO USE IN LAST 30 DAYS [facility] Sep 15, 2018 01:21 PM [place]-TOBACCO NEVER USED MELISSA HOYT [facility] Aug 11, 2017 08:54 AM [...] Encounter. Date/Time Encounter Note(s) Provider Source Dec 24, 2021 10:29 AM HEMATOLOGY AND ONCOLOGY NURSING OUTPAT IENT NOTE: GORDO ARGUETA [facility] LOCAL TITLE: HEME/ONC PROCEDURE CLINIC NURSING NOTE STANDARD TITLE: HEMATOLOGY AND ONCOLOGY NURSING OUTPATIENT NOTE DATE OF NOTE: DEC 24, 2021@10:29 ENTRY DATE: DEC 24, 2021@10:29:11 AUTHOR: GORDO ARGUETA EXP COSIGNER: URGENCY: STATUS: COMPLETED Date of Service: Dec Diagnosis: Carcinoid Tumor Vital Signs: Height: 70 in [177.8 cm] ( 11:32) Weight: 223.7 lb [101.47 kg] (12/18/2021 11:32) Body Surface Area: 2.24 Temperature: 97.8 F [36.6 C] (12/18/2021 11:32) Blood Pressure (BP): 123/78 (12/18/2021 11:32) Pulse: 58 (12/18/2021 11:32) Respiration: 18 (10/29/2021 09:49) Physician: Other: ELIZABETH Faria Allergies: DIAL SOAP (Mar 25, 2007) NAPROXEN (February 05, 2011) Labs: CBC + Diff: WBC 6.12 (10/29/21) ABS NEUT 4.06 (10/29/21) HGB 14.1 (10/29/21) PLT 188 (10/29/21) Chemistry: SODIUM 139 (11/26/21) POTASSIUM 4.0 (11/26/21) CALCIUM 8.9 (11/26/21) MAGNESIUM 1.9 (11/26/21) CREATININE 0.9 (11/26/21) ALK PHOSPHATASE 73 (10/29/21) SGPT 14 (10/29/21) SGOT 16 (10/29/21) BILIRUBIN, TOTAL 0.9 (10/29/21) Tumor Markers: CEA____ CA 125 TUMOR MARKER____ CA 19-9____ PSA - NONE FOUND Labs verified by Jacqui Patient identity and drugs dispensed verified by : Dinesh Moore chemo procedures SQ/IM Medication: Octreotide LAR IM Dosage: 20mg Site: Right gluteal muscle Time: 1010 Labs for this procedure clinic reviewed with emily martinez. Patient Response/Status: Patient reports feeling well today. Pt given Octreotide IM injection given into the right upp er gluteal muscle and covered site with gauze/bandaid. Pt tolerated injection without problems. Pt left clinic ambulatory. DISCHARGED TO: Home at 1011. /mustapha/ GORDO ARGUETA RN, BSN, OCN STAFF NURSE Signed: 12/24/2021 10:34
--- OUTSIDE RECORDS SUMMARY | 2022-06-06 11:57 | XMS_ITS | Encounter Summary ---
:1945 Author Organization Department of [facility] rs Address [address] [place] [address] Support Name Relationship Address Phone Arti CORONEL Unavailable [address] [place] [address] ADITYA MALIN Unavailable [address] [phone] [place] [phone] Insurance Providers: All historical and current Section [...] MEDICARE MEDICARE PART May 15, PART A [id number] 800 HOMER Gibson ATIENT (WNR) (M) A 2008 94T [phone] ,ELLE MEDICARE MEDICARE PART May 15, PART B [id number] 800 HOMER P ATIENT (WNR) (M) B 2008 94A [phone] ,ELLE Selected Encounter This section includes the information on record at [place] for the Encounter. Date/Time Encounter Type Encounter Reason Provider Source Description Dec 18, 2021 OFFICE O/P EST CARDIOLOGY ICD-10-CM I48.91 LUISITO KATZ 11:30 AM MOD 30-39 MIN Unspecified atrial L fibrillation with Provider Comments: Atrial fibrillation ([facility] [id number]) IHE Encounter Template Text not used by [place] Assessments - Encounter Diagnoses This section includes the primary and secondary diagnoses documented for the Encounter. Date/Time Primary/Secondary Diagnosis Name Provider Source Diagnosis Dec 19, 2021 PRIMARY Unspecified atrial LUISITO KATZ [facility] 01:39 PM fibrillation L [facility] Dec 19, 2021 SECONDARY Encounter for LUISITO KATZ V [facility] 01:39 PM therapeutic drug L [facility] level monitoring Dec 19, 2021 SECONDARY halfway (current) [facility] 01:39 PM use of L [facility] anticoagulants Plan of Treatment: Future Appointments (+ 6 months) and Future Tests (+/- 45 days) The Plan of Treatment section includes future care activities for the patient from all [place] treatmentfacone healthities. This section includes future appointments and future orders which are active, pending orscheduled.Future Appointments This section includes appointments that were scheduled to occur 6 months from the date of the Encounter, up to a maximum of 20 appointments. The data comes from all [place] treatment facilities. Appointment Date/Time Appointment Type Appointment Facili ty Name Dec 24, 2021 09:30 AM AMBULATORY - MEDICINE [facility] January 21, 2022 09:30 AM AMBULATORY - MEDICINE [facility] Feb 17, 2022 08:00 AM AMBULATORY - NONE [facility] Feb 17, 2022 09:00 AM AMBULATORY - MEDICINE [facility] Feb 17, 2022 10:30 AM AMBULATORY - MEDICINE [facility] Mar 25, 2022 09:30 AM AMBULATORY - NONE [facility] Mar 25, 2022 10:30 AM AMBULATORY - MEDICINE [facility] Apr 04, 2022 08:30 AM AMBULATORY - MEDICINE [facility] Apr 22, 2022 08:30 AM [facility]ORY [facility] NONE [facility] Apr 22, 2022 09:30 AM AM[facility]UL[facility]ORY - NONE [facility] Apr 22, 2022 09:45 AM AMBULATORY - NONE [facility] Apr 22, 2022 10:30 AM AMBULATORY - MEDICINE [facility] Apr 29, 2022 08:15 AM AMBULATORY - NONE [facility] May 05, 2022 08:30 AM AMBULATORY - SURGERY [facility] May 20, 2022 08:00 AM [facility] May 20, 2022 08:30 AM AMBULATORY - MEDICINE [facility] May 20, 2022 09:30 AM AMBULATORY - NONE [facility] May 20, 2022 10:30 AM AMBULATORY - MEDICINE [facility] May 23, 2022 02:45 PM AMBULATORY - SURGERY [facility] Jun 17, 2022 08:00 AM AMBULATORY - NONE [facility] Lab Results: +/- 30 days of [...] Interpretation Reference Range Comment Nov 26, 2021 [facility] POC INR(COAGUCHEK) Specimen Type: BLOOD 09:07 AM No comment enter ed. Ordering Provid er: CLAYTON ROLLE Report Released Date/Time: Nov 26, 2021 11:26 AM Reporting Lab: [facility] [address] [id number] Performing Lab: [facility] [id number] POC INR(COAGUCHEK) 1.8 Nov 26, 2021 09:04 [facility] BASIC METABOLIC Specimen Type: PLASMA AM PANEL+MG No comment enter ed. Ordering Provid er: MARIELOS PINEDA Report Released Date/Time: Sep 09, 2021 11:03 AM Reporting Lab: [facility] [id number] Performing Lab: [facility] [id number] CREATININE 0.9 0.7-1.2 UREA NITROGEN 14 8-26 GLUCOSE 82 74-100 SODIUM 139 136-145 POTASSIUM 4.0 3.5-5.1 CHLORIDE 107 98-107 CO2 26 22-29 CALCIUM 8.9 8.4-10.2 MAGNESIUM 1.9 1.6-2.6 ANION GAP 6 5-15 CREAT EGFR(CKD-EPI) 88 >60 Vital Signs: All taken on the encounter date This section contains inpatient and outpatient Vital Signs collected on the date of the Encounter. Date/Time Temperature Pulse Blood Respiratory SP02 Pain Height Weight Sukhwinder dy Source Pressure Rate Mass Index Dec 18, 97.8 F 58 123/78 96 % 70 in 223.7 32 [place] 2021 11:32 /min mm[Hg] lb [facility] Social History: Smoking Status (Most current) and Tobacco Use (All prior to encounter date) This section includes the most current, and the historical, smoking and tobacco-related health factors from the [facility] where the Encounter took [...] the Encounter. The data comes from the [facility] where the Encounter took place. Date/Time Smoking Status/Tobacco Use Comment Thiago kat Oct 05, 2019 10:05 AM [place]-TO[place]AC[place] USED [place] [facility] Oct 20, 2018 12:28 PM INPT NO TOBACCO USE IN LAST [address] [facility] Sep 15, 2018 01:21 PM [place]-TOBACCO NEVER USED [place] [facility] Aug 11, 2017 08:54 AM LIFETIME NON-TOBACCO USER [facility] Jul 08, 2016 08:07 AM LIFETIME NON-TOBACCO USER [facility] May 09, 2015 02:31 PM LIFETIME NON-TOBACCO USER [facility] Apr 14, 2014 08:41 AM LIFETIME NON-TOBACCO USER [facility] Jan 06, 2007 08:51 AM LIFETIME NON-TOBACCO USER [facility] Encounter Notes: All associated encounter notes This section contains the clinical notes associated to the Encounter. Date/Time Encounter Note(s) Provider Source Dec 18, 2021 11:32 INTERNAL MEDICINE OUTPATIENT NOTE: Wily DAIGLE [facility] AM LOCAL TITLE: MEDICINE CLINIC NURSING NOTE STANDARD TITLE: INTERNAL MEDICINE OUTPATIENT NOT E DATE OF NOTE: DEC 18, 2021@11:32 ENTRY DATE: DEC 18, 2021@11:32:52 AUTHOR: MARICRUZ DAIGLE EXP COSIGNER: URGENCY: STATUS: COMPLETED TYPE OF VISIT: Appointment Check In Type of appointment: In-person appointment REASON FOR VISIT: Follow-up ALLERGIES: DIAL SOAP (Mar 25, 2007) NAPROXEN (February 05, 2011) VITAL SIGNS: Blood Pressure: 123/78 (12/18/2021 11:32) Pulse: 58 (12/18/2021 11:32) Respiration: 18 (10/29/2021 09:49) Temperature: 97.8 F [36.6 C] (12/18/2021 11:32) Weight: 223.7 lb [101.47 kg] (12/18/2021 11:32) Height: 70 in [177.8 cm] (12/18/2021 11:32) BMI: 32.2 O2 Sat: 96% (12/18/2021 11:32) Pain: 0 (10/29/2021 09:49) PAIN SCREEN: Patient is not having significant pain that the y wish to discuss with their provider today. MEDICATION Active Outpatient Medications (including Suppli es): OCTREOTIDE ACETATE 20MG/KIT SA SUSP INJ INJECT 20MG 20MG ACTIVE INTRAMUSCULAR EVERY MONTH IN HEME/ONC CLINIC DO NOT MAIL TO BE DISPENSE IN CLINIC SOTALOL HCL 80MG TAB TAKE ONE TABLET BY MOUTH T WO TIMES A ACTIVE DAY WARFARIN NA (CHAN STATE) 5MG TAB TAKE ONE AND ONE-HALF ACTIVE TABLETS BY MOUTH THURSDAY, THURSDAY, THURSDAY AN D TAKE ONE TABLET ALL OTHER DAYS OF THE WEEK, OR DI RECTED BY WARFARIN CLINIC TO PREVENT BLOOD CLOTS Non-VA CHOLECALCIF 25MCG (D3-1,000UNIT) TAB 100 0UNIT MOUTH ACTIVE EVERY DAY /mustapha/ MARICRUZ DAIGLE LPN Staff Nurse Signed: 12/18/2021 11:33 Dec 18, 2021 11:10 CARDIOLOGY DIAGNOSTIC STUDY NOTE: CATERINA KATZ [facility] LOCAL TITLE: CARDIOLOGY ELECTROPHYSIOLOGY NOTE STANDARD TITLE: CARDIOLOGY DIAGNOSTIC STUDY NOTE DATE OF NOTE: DEC 18, 2021@11:10 ENTRY DATE: DEC 18, 2021@11:10:53 AUTHOR: LUISITO KATZ EXP COSIGNER: URGENCY: STATUS: COMPLETED SUBJECT: Electrophysiology Follow-Up Note CC: AF/Sotalol f/u HPI: 76 y.o. 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 Pt. reports feeling well and has no complaints. No known breakthrough AF episodes since 201 8 (post TKA). He occasionally misses a single dose of Sotalol. Denies palpitati ons, syncope, chest pain, SOB. Pt. has had intermittent issues w/ d izziness/balance--ongoing since 2019 CVA. No falls. No syncope. Overall, no significant change in sx over time. PMHx: *A.fib/flutter - Dx ~ 2007 per pt. 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; mets - LN, RP, mesenter y, liver, bone, periaorta *Prostate cancer (s/p salvage prostatectomy @ [facility] 01/2014) *Lung nodules *DDD/spinal stenosis SHx: *Tobacco: denies; lifetime nonsmoker *ETOH: occasional beer *Illicits: denies FHx: *Brother: s/p CEA in last 60's *Mother: s/p CEA in mid-80's; abdominal aortic a neurysm *Father: of CHF in 80's; had CABG in 60's CARDIAC TESTING - EKG (12/18/21): sinus bradycardia (HR 55), QTc ~ 420 msec - EKG (12/03/20): sinus rhythm (HR 60), QTc ~ 43 0 msec - EKG (11/25/19): sinus bradycardia (HR 58), iso lated PVC, QTc ~ 430 msec - Echo (04/05/20 @ [place]): 1. Aortic valve strands (longest measuring 7 mm ). 2. Normal left ventricular chamber size . Calculated ejection fraction 61%. No regional wall motion abnormalities. 3. Grade 1/4 left ventricular diastolic dysfunc tion, consistent with low to normal left ventricular filling pressure. 4. Mildly enlarged right ventricular chamber si ze with normal systolic function. 5. Estimated right ventricular systolic pressur e 30 mmHg (systolic blood pressure 126 mmHg). 6. Normal inferior vena cava size with normal i nspiratory collapse (>50%). - Echo (11/25/19): 1. Left ventricular ejection fraction, by visua l estimation, is 55 to 60%. 2. Borderline concentric left ventricular hyper trophy. 3. Moderately dilated left atrium. 4. Pulmonary hypertension is mild. 5. Normal IVC size, suggesting normal RA pressu re. IVSd (2D): 1.24 cm - Echo (10/16/18 @ [facility]): 1. Normal LV size, mildly increased w~11 thickn ess, normal global systolic function with an estimate~ EF of 60 - 65%. 2. Grade 1 pattern of LV diastolic filling 3. Right ventricular cavity size is normal, marisol bal systolic RV function is normal. 4. The aortic valve is sclerotic, no stenosis e nd trivial regurgitation. 5. The ascending aorta is dilated with maximal diameter of 3.9 cm. 6. Mobile atrial septum with no shunt ~visualiz ed by color Doppler. Allergies: Dial Soap; Naproxen Active Medications: OCTREOTIDE ACETATE 20MG/KIT SA SUSP INJ INJECT 2 0MG ACTIVE 20MG INTRAMUSCULAR EVERY MONTH SOTALOL HCL 80MG TAB TAKE ONE TABLET BY MOUTH TW O ACTIVE TIMES A DAY WARFARIN NA (CHAN STATE) 5MG TAB TAKE ONE AND ACTIVE ONE-HALF TABLETS BY MOUTH THURSDAY, THURSDAY, THURSDAY AND TAKE ONE TABLET ALL OTHER DAYS OF THE WEEK, OR DIRECTED BY [facility] CLINIC Non-VA CHOLECALCIF 25MCG (D3-1,000UNIT) TAB 1000 UNIT ACTIVE MOUTH EVERY DAY Vital Signs: Temperature: 97.8 F [36.6 C] (12/18/2021 11:32) Blood Pressure: 123/78 (12/18/2021 11:32) Pulse: 58 (12/18/2021 11:32) Respiration: 18 (10/29/2021 09:49) Pain: 0 (10/29/2021 09:49) PE: GA: very pleasant, well-appearing, older, Ca ucasian male in NAD Lungs: CTAB, no w/r/c CV: RRR; no m/g/r; no JVD Abd: BS (+); S/NT/ND Ext: no edema Neuro: AOx4; no focal deficits; normal gait A/P: *Paroxysmal symptomatic A.fib/flutter: - Rhythm controlled w/ Sotalol since 2016. Isol ated recurrence 2018 post-op TKA. - Tx options of continued S otalol vs. PVI were again discussed. Pt. prefers to continue medication. - Continue Sotalol 80mg BID for AF rhyt hm control. Pt. is not on a concurrent marychuy blocking agent due to bradycardia. - CHADS-VASC = 4 (>75, CVA/PE). Continue Warfar in for CVA prophylaxis. *Sotalol monitoring: - No h/o LV dysfx. - No contraindicated meds. - Renal fx WNL. - QTc stable. - Rx renewed. *F/u EP 1 year or sooner PRN. /mustapha/ LUISITO KATZ APRN/HESHAM/CCRN-[facility] ELECTROPHYSIOLOGY NURSE PRACTITIONER Signed: 12/19/2021 13:39
--- OUTSIDE RECORDS SUMMARY | 2022-06-06 11:57 | XMS_ITS | Encounter Summary ---
:1945 Author Organization Department [facility] Address [address] [place] [id number] Support Name Relationship Address Phone Arti CORONEL Unavailable [address] [place] [address] ADITYA MALIN Unavailable [address] [phone] [place] [phone] Insurance Providers: All historical and current Section [...] MEDICARE MEDICARE PART May 15, PART A [id number] 800 HOMER HUNTER (WNR) (M) A 2008 94A [phone] ,ELLE MEDICARE MEDICARE PART May 15, PART B [id number] 800 HOMER HUNTER (WNR) (M) B 2008 94A [id number] ,ELLE Selected Encounter This section includes the information on record at [place] for the Encounter. Date/Time Encounter Type Encounter Reason Provider Source Description Dec 18, 2021 ELECTROCARDIOGRAM EKG ICD-10-CM Z13.6 [facility] 11:00 AM COMPLETE Encounter for T A screening for cardiovascular disorders with Provider Comments: Encounter for Screening for Cardiovascular Disorders IHE Encounter Template Text not used by [facility] Assessments - Encounter Diagnoses This section includes the primary and secondary diagnoses documented for the Encounter. Date/Time Primary/Secondary Diagnosis Name Provider Source Diagnosis Dec 18, 2021 PRIMARY Encounter for LINNEA GIRARD [facility] 02:08 PM screening for J HCS cardiovascular disorders Plan of Treatment: Future Appointments (+ 6 months) and Future Tests (+/- 45 days) The Plan of Treatment section includes future care activities for the patient from all [place] [facility] This section includes future appointments and future orders which are active, pending orscheduled.Future Appointments This section includes appointments that were scheduled to occur 6 months from the date of the Encounter, up to a maximum of 20 appointments. The data comes from all [place] treatment facilities. Appointment Date/Time Appointment Type Appointment Facili ty Name Dec 24, 2021 09:30 AM AMBULATORY - MEDICINE [facility] January 21, 2022 09:30 AM AMBULATORY - MEDICINE [facility] Feb 17, 2022 08:00 AM AMBULATORY - NONE [facility] Feb 17, 2022 09:00 AM AMBULATORY - MEDICINE [facility] Feb 17, 2022 10:30 AM AMBULATORY - MEDICINE [facility] Mar 25, 2022 09:30 AM AMBULATORY - NONE [facility] Mar 25, 2022 10:30 AM AMBULATORY - MEDICINE [facility] Apr 04, 2022 08:30 AM AMBULATORY - MEDICINE [facility] Apr 22, 2022 08:30 AM AMBULATORY - NONE [facility] Apr 22, 2022 09:30 AM AMBULATORY - NONE [facility] Apr 22, 2022 09:45 AM AMBULATORY - NONE [facility] Apr 22, 2022 10:30 AM AMBULATORY - MEDICINE [facility] Apr 29, 2022 08:15 AM AMBULATORY - NONE [facility] May 05, 2022 08:30 AM AMBULATORY - SURGERY [facility] May 20, 2022 08:00 AM AMBULATORY - MEDICINE [facility] May 20, 2022 08:30 AM AMBULATORY - MEDICINE [facility] May 20, 2022 09:30 AM AMBULATORY - NONE [facility] May 20, 2022 10:30 AM AMBULATORY - MEDICINE [facility] May 23, 2022 02:45 PM AMBULATORY - SURGERY [facility] Jun 17, 2022 08:00 AM AMBULATORY - NONE [facility] Lab Results: +/- 30 days of the encounter This section includes the Chemistry and Hematology Lab Results on record with [place] for the patient. Radiology Reports and Pathology Reports are provided separately, in subsequent sections.Lab Results This section contains the Chemistry/Hematology Results that were resulted 30 days before or 30 daysafter the date of the Encounter. Date/Time Source Result Type Result - Unit Interpretation Reference Range Comment Nov 26, 2021 [facility] POC INR(COAGUCHEK) Specimen Type: BLOOD 09:07 AM No comment enter ed. Ordering Provid er: CLAYTON ROLLE Report Released Date/Time: Nov 26, 2021 11:26 AM Reporting Lab: [facility] [address] [facility] [id number] Performing Lab: [facility] [address] [facility] [id number] POC INR(COAGUCHEK) 1.8 Nov 26, 2021 09:04 [facility] BASIC METABOLIC Specimen Type: PLASMA AM PANEL+MG No comment enter ed. Ordering Provid er: MARIELOS PINEDA Report Released Date/Time: Sep 09, 2021 11:03 AM Reporting Lab: [facility] [address] [facility] [phone] Performing Lab: [facility] [address] [facility] [id number] CREATININE 0.9 0.7-1.2 UREA NITROGEN 14 8-26 [...] [place] 2021 11:32 /min mm[Hg] lb [facility] Social History: Smoking Status (Most current) and Tobacco Use (All prior to encounter date) This section includes the most current, and the historical, smoking and tobacco-related health factors from the [facility] where the Encounter took place.Current Smoking Status This section includes the most current smoking, or tobacco-related health factor, from the [place] facility where the Encounter took place. Date/Time Current Smoking Status Comment Facility May 15, 2021 10:00 AM [place]-TOBAC[place] NEVER USED [facility] Tobacco Use History This section includes a history of the smoking, or tobacco- related health factors, that were collected on or before the date of the Encounter. The data comes from the [place] facility where the Encounter took place. Date/Time Smoking Status/Tobacco Use Comment [facility] Oct 05, 2019 10:05 AM VA-TOBACCO NEVER USED [place] [facility] Oct 20, 2018 12:28 PM INPT NO TOBACCO USE IN LAST 30 DAYS [facility] Sep 15, 2018 01:21 PM VA-TOBACCO NEVER USED [place] [facility] Aug 11, 2017 08:54 AM LIFETIME NON-TOBACCO USER [facility] Jul 08, 2016 08:07 AM LIFETIME NON-TOBACCO USER [facility] May 09, 2015 02:31 PM LIFETIME NON-TOBACCO USER [facility] Apr 14, 2014 08:41 AM LIFETIME NON-TOBACCO USER [facility] Jan 06, 2007 08:51 AM LIFETIME NON-TOBACCO USER [facility]
[2022-06-06 11:58] LABS: Chloride* 102 mmol/L (96-114); Potassium* 4.2 mmol/L (3.6-5.1); Sodium* 136 mmol/L (135-149)
--- OUTSIDE RECORDS SUMMARY | 2022-06-06 11:58 | XMS_ITS | Encounter Summary ---
:1945 Author Organization Department [facility] Address [address] [place] [address] Support Name Relationship Address Phone Arti CORONEL Unavailable [address] [place] [address] ADITYA MALIN Unavailable 7 GUANACO HUNG SHAWANDA [phone] [place] [address] Insurance Providers: All historical and current Section [...] MEDICARE MEDICARE PART May 15, PART B [id number] 800 HOMER HUNTER (WNR) (M) B 2008 94A [phone] ,ELLE MEDICARE MEDICARE PART May 15, PART A [id number] 800 HOMER HUNTER (WNR) (M) A 2008 94A [id number] ,ELLE Selected Encounter This section includes the information on record at [place] for the Encounter. Date/Time Encounter Type Encounter Description Reason Provider Source Jan 07, 2022 01:09 Outpatient Encounter CLINICAL PHARMACY PM IHE Encounter Template Text not used by [place] Plan of Treatment: Future Appointments (+ 6 months) and Future Tests (+/- 45 days) The Plan of Treatment section includes future care activities for the patient from all [place] treatmentfacilities. This section includes future appointments and future orders which are active, pending orscheduled.Future Appointments This section includes appointments that were scheduled to occur 6 months from the date of the Encounter, up to a maximum of 20 appointments. The data comes from all [place] treatment facilities. Appointment Date/Time Appointment Type Appointment Facili ty Name January 21, 2022 09:30 AM AMBULATORY - MEDICINE [facility] CS Feb 17, 2022 08:00 AM AMBULATORY - NONE [facility] Feb 17, 2022 09:00 AM AMBULATORY - MEDICINE [facility] CS Feb 17, 2022 10:30 AM AMBULATORY - MEDICINE [facility] Mar 25, 2022 09:30 AM AMBULATORY - NONE [facility] Mar 25, 2022 10:30 AM AMBULATORY - MEDICINE [facility] CS Apr 04, 2022 08:30 AM AMBULATORY - MEDICINE [facility] CS Apr 22, 2022 08:30 AM AMBULATORY - NONE [facility] Apr 22, 2022 09:30 AM AMBULATORY - NONE [facility] Apr 22, 2022 09:45 AM AMBULATORY - NONE [facility] Apr 22, 2022 10:30 AM AMBULATORY - MEDICINE [facility] CS Apr 29, 2022 08:15 AM AMBULATORY - NONE [facility] May 05, 2022 08:30 AM AMBULATORY - SURGERY [facility] S May 20, 2022 08:00 AM AMBULATORY - MEDICINE [facility] CS May 20, 2022 08:30 AM AMBULATORY - MEDICINE [facility] CS May 20, 2022 09:30 AM AMBULATORY - NONE [facility] May 20, 2022 10:30 AM AMBULATORY - MEDICINE [facility] May 23, 2022 02:45 PM AMBULATORY - SURGERY [facility] S Jun 17, 2022 08:00 AM AMBULATORY - NONE [facility] Jun 17, 2022 09:00 AM AMBULATORY - MEDICINE [facility] Social History: Smoking Status (Most current) and Tobacco Use (All prior to encounter date) This section includes the most current, and the historical, smoking and tobacco-related health factors from the [facility] facility where the Encounter took place.Current Smoking Status This section includes the most current smoking, or tobacco-related health factor, from the [place] facility where the Encounter took place. Date/Time Current Smoking Status Comment Facility May 15, 2021 10:00 AM [place]-TOBACCO NEVER USED [place] [employer] Tobacco Use History This section includes a history of the smoking, or tobacco- related health factors, that were collected on or before the date of the Encounter. The data comes from the [place] facility where the Encounter took place. Date/Time Smoking Status/Tobacco Use Comment [facility] Oct 05, 2019 10:05 AM [place]CO [place] [facility] Oct 20, 2018 12:28 PM INPT NO TOBACCO USE IN LAST 30 DAYS [facility] Sep 15, 2018 01:21 PM [place]-TOBACCO NEVER USED MELISSA HOYT [facility] Aug 11, 2017 08:54 AM LIFETIME NON-TOBACCO USER [facility] Jul 08, 2016 08:07 AM LIFETIME NON-TOBACCO USER [facility] May 09, 2015 02:31 PM LIFETIME NON-TOBACCO USER [facility] Apr 14, 2014 08:41 AM LIFETIME NON-TOBACCO USER [facility] Jan 06, 2007 08:51 AM LIFETIME NON-TOBACCO USER [facility] Encounter Notes: All associated encounter notes This section contains the clinical notes associated to the Encounter. Date/Time Encounter Note(s) Provider Source Jan 07, 2022 01:09 PM PHARMACY NOTE: HANNA YOU IS [facility] LOCAL TITLE: ANTICOAG ENTRY OF OUTSIDE LABS STANDARD TITLE: PHARMACY NOTE DATE OF NOTE: JAN 07, 2022@13:09 ENTRY DATE: JAN 07, 2022@13:09:11 AUTHOR: HANNA YOU EXP COSIGNER: URGENCY: STATUS: COMPLETED INR: Date: January 07, 2022 Results: 1.62 Location: [facility] /mustapha/ [facility] Signed: 01/07/2022 13:09 Receipt Acknowledged By: * AWAITING SIGNATURE * LEONOR ARRIOLA
--- OUTSIDE RECORDS SUMMARY | 2022-06-06 11:59 | XMS_ITS | Encounter Summary ---
:1945 Author Organization Department [facility] Address [address] [place] [address] Support Name Relationship Address Phone Arti CORONEL Unavailable [address] [place] [address] ADITYA MALIN Unavailable [address] [place] [address] Insurance Providers: All historical and current Section [...] MEDICARE MEDICARE PART May 15, PART A [id number] 800 HOMER HUNTER (WNR) (M) A 2008 94S [phone] ,ELLE MEDICARE MEDICARE PART May 15, PART B [id number] 800 HOMER HUNTER (WNR) (M) B 2008 94A [id number] ,ELLE Selected Encounter This section includes the information on record at [place] for the Encounter. Date/Time Encounter Type Encounter Description Reason Provider Source January 21, 2022 01:31 Outpatient Encounter CLINICAL PHARMACY PM IHE Encounter Template Text not used by [place] Plan of Treatment: Future Appointments (+ 6 [...] Date/Time Appointment Type Appointment Facili ty Name Feb 17, 2022 08:00 AM AMBULATORY - NONE [facility] Feb 17, 2022 09:00 AM AMBULATORY - MEDICINE [facility] Feb 17, 2022 10:30 AM AMBULATORY - MEDICINE [facility] Mar 25, 2022 09:30 AM AMBULATORY - NONE [facility] Mar 25, 2022 10:30 AM AMBULATORY - MEDICINE [facility] Apr 04, 2022 08:30 AM AMBULATORY - MEDICINE [facility] Apr 22, 2022 08:30 AM AMBULATORY - NONE [facility] Apr 22, 2022 09:30 AM AMBULATORY - NONE [facility] Apr 22, 2022 09:45 AM AMBULATORY - NONE [facility] Apr 22, 2022 10:30 AM AMBULATORY - MEDICINE [facility] CS Apr 29, 2022 08:15 AM AMBULATORY - NONE [facility] May 05, 2022 08:30 AM AMBULATORY - SURGERY [facility] S May 20, 2022 08:00 AM AMBULATORY - MEDICINE [facility] May 20, 2022 08:30 AM AMBULATORY - MEDICINE [facility] CS May 20, 2022 09:30 AM AMBULATORY - NONE [facility] May 20, 2022 10:30 AM AMBULATORY - MEDICINE [facility] CS May 23, 2022 02:45 PM AMBULATORY - SURGERY [facility] S Jun 17, 2022 08:00 AM AMBULATORY - NONE [facility] Jun 17, 2022 09:00 AM AMBULATORY - MEDICINE [facility] Jun 17, 2022 09:30 AM AMBULATORY - MEDICINE [facility] Lab Results: +/- 30 days [...] Result - Unit Interpretation Reference Range Comment Feb 17, 2022 08:35 AM [facility] SEROTONIN Specim en Type: SERUM Comment: This t est was developed and its analytical performance characteristics have been determined by [facility]. It has not been cleared or approved by [employer]ANI. This assay h as been validated pursuant to the CLIA regulations and is used for clinical purposes. Test performed by [facility] [address] [facility] [facility], [place] [address] Phone: Felt Hat Flanging Operator: Felicia Rizzo MD,PHD,BERTHA Test Reported by [facility], [facility], [id number] [place] [address] Truman Doan M.D., Ph.D., Director of Laboratories , CLIA [id number] Ordering Provid er: LILI GARCIA Report Released Date/Time: Oct 29, 2021 10:15 AM Reporting Lab: [facility] [address] [facility] [address] Performing Lab: [address] [place] 1441 H [id number] Feb 17, 2022 08:35 [facility] CHROMOGRANIN A([place]) Spec imen Type: SERUM AM No comment enter ed. Ordering Provid er: LILI GARCIA Report Released Date/Time: Oct 29, 2021 10:15 AM Reporting Lab: [facility] [address] [facility] [address] Performing Lab: [facility] [address] [facility] [address] CHROMOGRANIN A([place]) 65 <92 Feb 17, 2022 [facility] COMPREHENSIVE METABOLIC Spec imen Type: PLASMA 08:35 AM PANEL+MG No comment enter ed. Ordering Provid er: LILI GARCIA Report Released Date/Time: Oct 29, 2021 10:15 AM Reporting Lab: [facility] [address] [facility] [address] Performing Lab: [facility] [address] [facility] [address] CREATININE 1.0 0.7-1.2 UREA NITROGEN 14 8-26 GLUCOSE 112 H 74-100 SODIUM 139 136-145 POTASSIUM 4.1 3.5-5.1 CHLORIDE 107 98-107 CO2 27 22-29 CALCIUM 9.1 8.4-10.2 PROTEIN,TOTAL 6.8 6.0-8.3 ALBUMIN 4.0 3.5-5.2 BILIRUBIN, TOTAL 0.9 0.2-1.2 MAGNESIUM 2.0 1.6-2.6 ANION GAP 5 5-15 ALKALINE PHOSPHATASE 69 40-150 ALT/SGPT 16 <55 AST/SGOT 20 <34 CREAT EGFR(CKD-EPI) 78 >60 Feb 17, 2022 08:35 AM [facility] CBC & DIFF Specim en Type: BLOOD Comment: Automa rosalba Differential Performed Ordering Provid er: LILI GARCIA Report Released Date/Time: Oct 29, 2021 10:15 AM Reporting Lab: [facility] [address] [place] [facility] [address] Performing Lab: [facility] [address] [facility] [address] WBC 5.24 4.0-11.0 RBC 4.37 L 4.6-6.2 HGB 14.6 13.5-17.9 HCT 43.5 41-54 MCV 99.5 80-100 MCH 33.4 H 27-33 MCHC 33.6 32.0-37.5 PLT 202 150-400 MPV 9.6 7.4-10.4 NEUT 59.3 LYMPHS 24.4 MONO 12.6 EOSINO 3.1 BASO 0.4 RDW 12.4 11.5-14.5 ABS LYMPH 1.28 1.0-4.0 ABS MONO 0.66 0.1-1.0 ABS NEUT 3.11 2.0-7.7 ABS EOS 0.16 0-0.5 ABS BASO 0.02 0-0.2 IG(META,MYELO,PRO) 0.2 ABS IMMATURE GRAN 0.01 0-0.1 Social History: Smoking Status (Most current) and Tobacco Use (All prior to encounter date) This section includes the most current, and the historical, smoking and tobacco-related health factors from the [place] facility where the Encounter took place.Current Smoking Status This section includes the most current smoking, or tobacco-related health factor, from the [place] facility where the Encounter took place. Date/Time Current Smoking Status Comment Facility May 15, 2021 10:00 AM [place]-TOB[place]CO [place] USED [place] [facility] Tobacco Use History This section includes a history of the smoking, or tobacco- related health factors, that were collected on or before the date of the Encounter. The data comes from the [place] facility where the Encounter took place. Date/Time Smoking Status/Tobacco Use Comment [facility] Oct 05, 2019 10:05 AM [place]-TOBACCO [place] USED [place] [facility] Oct 20, 2018 12:28 PM INPT NO TOBACCO USE IN LAST 30 DAYS [facility] Sep 15, 2018 01:21 PM [place]-TOBACCO [place] USED [place] [facility] Aug 11, 2017 08:54 [...] the Encounter. Date/Time Encounter Note(s) Provider Source January 21, 2022 01:31 PM PHARMACY NOTE: HANNA YOU IS [facility] LOCAL TITLE: ANTICOAG ENTRY OF OUTSIDE LABS STANDARD TITLE: PHARMACY NOTE DATE OF NOTE: JANUARY 21, 2022@13:31 ENTRY DATE: JANUARY 21, 2022@13:31:19 AUTHOR: HANNA YOU EXP COSIGNER: URGENCY: STATUS: COMPLETED INR: Date: January 21, 2022 Results: 2.14 Location: [facility] /mustapha/ [facility]ANNA YOU [facility] Signed: 01/21/2022 13:32 Receipt Acknowledged By: * AWAITING SIGNATURE * SRI BURNS
--- OUTSIDE RECORDS SUMMARY | 2022-06-06 11:59 | XMS_ITS | Encounter Summary ---
:1945 Author Organization [facility] rs Address [address] [place] [address] Support Name Relationship Address Phone Arti CORONEL Unavailable [address] [place] [address] ADITYA MALIN Unavailable [address] [phone] [place] [phone] Insurance Providers: All historical and current Section [...] MEDICARE MEDICARE PART May 15, PART A [id number] 800 HOMER HUNTER (WNR) (M) A 2008 94A [phone] ,ELLE MEDICARE MEDICARE PART May 15, PART B [id number] 800 HOMER HUNTER (WNR) (M) B 2008 94A [phone] ,ELLE Selected Encounter This section includes the information on record at [place] for the Encounter. Date/Time Encounter Type Encounter Reason Provider Source Description January 21, 2022 OCTREOTIDE MEDICAL PROCEDURE ICD-10-CM C7A.00 JORDAN LEONARD 09:30 AM INJECTION, DEPOT UNIT Malignant carcinoid tumor of unspecified site with Provider Comments: Carcinoid tumor (SCT [id number]) IHE Encounter Template Text not used by [place] Assessments - Encounter Diagnoses This section includes the primary and secondary diagnoses documented for the Encounter. Date/Time Primary/Secondary Diagnosis Name Provider Source Diagnosis January 21, 2022 PRIMARY Malignant JORDAN LEONARD [facility] 10:58 AM carcinoid tumor HCS of unspecified site Plan of Treatment: Future Appointments (+ 6 months) and Future Tests (+/- 45 days) The Plan of Treatment section includes future care activities for the patient from [facility] [place] [facility] This section includes future appointments and future orders which are active, pending orscheduled.Future Appointments This section includes appointments that were scheduled to occur 6 months from the date of the Encounter, up to a maximum of 20 appointments. The data comes from all [place] treatment facilities. Appointment Date/Time Appointment Type Appointment Facili ty Name Feb 17, 2022 08:00 AM AMBULATORY - NONE [facility] Feb 17, 2022 09:00 AM AMBULATORY - MEDICINE [facility] CS Feb 17, 2022 10:30 AM AMBULATORY - MEDICINE [facility] Mar 25, 2022 09:30 AM AMBULATORY - NONE [facility] Mar 25, 2022 10:30 AM AMBULATORY - MEDICINE [facility] CS Apr 04, 2022 08:30 AM AMBULATORY - MEDICINE [facility] CS Apr 22, 2022 08:30 AM AMBULATORY - NONE [facility] Apr 22, 2022 09:30 AM AMBULATORY - NONE [facility] Apr 22, 2022 09:45 AM AMBULATORY - NONE [facility] Apr 22, 2022 10:30 AM AMBULATORY - MEDICINE [facility] CS Apr 29, 2022 08:15 AM AMBULATORY - NONE [facility] May 05, 2022 08:30 AM AMBULATORY - SURGERY [facility] S May 20, 2022 08:00 AM AMBULATORY - MEDICINE [facility] CS May 20, 2022 08:30 AM AMBULATORY - MEDICINE [facility] CS May 20, 2022 09:30 AM AMBULATORY - NONE [facility] May 20, 2022 10:30 AM AMBULATORY - MEDICINE [facility] CS May 23, 2022 02:45 PM AMBULATORY - SURGERY [facility] S Jun 17, 2022 08:00 AM AMBULATORY - NONE [facility] Jun 17, 2022 09:00 AM AMBULATORY - MEDICINE [facility] CS Jun 17, 2022 09:30 AM AMBULATORY - MEDICINE [facility] CS Lab Results: +/- 30 days [...] Range Comment Feb 17, 2022 08:35 AM [facility] SEROTONIN Specim en Type: SERUM Comment: This t est was developed and its analytical performance characteristics have been determined by [employer] [facility]. It has not been cleared or approved by Lalo MULTANI. This assay h as been validated pursuant to the CLIA regulations and is used for clinical purposes. Test performed by [employer] [facility] [address] [address] [facility]Va [facility], [place] [address] Phone: Advertising Clerk: Felicia Rizzo MD,PHD,BERTHA Test Reported by [facility], [employer] [facility], [address] [place] [address] Truman Doan M.D., Ph.D., Director of Laboratories , CLIA [id number] Ordering Provid er: LILI GARCIA Report Released Date/Time: Oct 29, 2021 10:15 AM Reporting Lab: [facility] [address] [facility] [address] Performing Lab: [address] [place] 1441 H 56-244 Feb 17, 2022 08:35 [facility] CHROMOGRANIN A(TOK) Spec imen Type: SERUM AM No comment enter ed. Ordering Provid er: LILI GARCIA Report Released Date/Time: Oct 29, 2021 10:15 AM Reporting Lab: [facility] [address] [facility] [address] Performing Lab: [facility] [address] [facility] [address] CHROMOGRANIN A([place]) 65 <92 Feb 17, 2022 08:35 AM [facility] CBC & DIFF Specim en Type: BLOOD Comment: Automa rosalba Differential Performed Ordering Provid er: LILI GARCIA Report Released Date/Time: Oct 29, 2021 10:15 AM Reporting Lab: [facility] [address] [facility] [address] Performing Lab: [facility] [address] [employer] [address] WBC 5.24 4.0-11.0 RBC 4.37 L 4.6-6.2 [...] IG(META,MYELO,PRO) 0.2 ABS IMMATURE GRAN 0.01 0-0.1 Feb 17, 2022 [facility] COMPREHENSIVE METABOLIC Spec imen Type: PLASMA 08:35 AM PANEL+MG No comment enter ed. Ordering Provid er: LILI GARCIA Report Released Date/Time: Oct 29, 2021 10:15 AM Reporting Lab: [facility] [address] Performing Lab: [facility] [address] CREATININE 1.0 0.7-1.2 UREA NITROGEN 14 8-26 GLUCOSE 112 H 74-100 SODIUM 139 136-145 POTASSIUM 4.1 3.5-5.1 CHLORIDE 107 98-107 CO2 27 22-29 CALCIUM 9.1 8.4-10.2 PROTEIN,TOTAL 6.8 6.0-8.3 ALBUMIN 4.0 3.5-5.2 BILIRUBIN, TOTAL 0.9 0.2-1.2 MAGNESIUM 2.0 1.6-2.6 ANION GAP 5 5-15 ALKALINE PHOSPHATASE 69 40-150 ALT/SGPT 16 <55 AST/SGOT 20 <34 CREAT EGFR(CKD-EPI) 78 >60 Social History: Smoking Status (Most current) and Tobacco Use (All prior to encounter date) This section includes the most current, and the historical, smoking and tobacco-related health factors from the [place] facility where the Encounter took place.Current Smoking Status This section includes the most current smoking, or tobacco-related health factor, from the [facility] where the Encounter took place. Date/Time Current Smoking Status Comment Facility May 15, 2021 10:00 AM [place]-TOBACCO NEVER USED MELISSA HOYT [facility] Tobacco Use History This section includes a history of the smoking, or tobacco- related health factors, that were collected on or before the date of the Encounter. The data comes from the [place] facility where the Encounter took place. Date/Time Smoking Status/Tobacco Use Comment [facility] Oct 05, 2019 10:05 AM [place]-TOB[place]CO [place] US[place] [facility] Oct 20, 2018 12:28 PM INPT NO TOBACCO USE IN LAST 30 DAYS [facility] Sep 15, 2018 01:21 PM [place]-TOBACCO [place] USED [place] [facility] Aug 11, 2017 08:54 AM LIFETIME NON-TOBACCO USER [facility] Jul 08, 2016 08:07 AM LIFETIME NON-TOBACCO USER [facility] May 09, 2015 02:31 PM LIFETIME NON-TOBACCO USER [facility] Apr 14, 2014 08:41 AM LIFETIME NON-TOBACCO USER [facility] Jan 06, 2007 08:51 AM LIFETIME NON-TOBACCO USER [facility] Encounter Notes: All associated encounter notes This section contains the clinical notes associated to the Encounter. 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 O ctreotide LAR given as ordered. Tolerated injection well. Left ambulato ry; to return to clinic in 4 weeks. DISCHARGED TO: Home at 1045 /es/ Jordan Leonard, MSN, RN, OCN Staff Nurse, Hem/Onc Clinic Signed: 01/21/2022 10:58
--- OUTSIDE RECORDS SUMMARY | 2022-06-06 11:59 | XMS_ITS | Encounter Summary ---
:1945 Author Organization Department [facility] rs Address [address] [place] [address] Support Name Relationship Address Phone Arti CORONEL Unavailable [address] [facility] [place] [address] ADITYA MALIN Unavailable [address] [place] [address] Insurance Providers: All historical and current Section [...] MEDICARE MEDICARE PART May 15, PART A [id number] 800 HOMER HUNTER (WNR) (M) A 2008 94A [phone] ,ELLE MEDICARE MEDICARE PART May 15, PART B [id number] 800 HOM[address] HUNTER (WNR) (M) B 2008 94A [phone] ,ELLE Selected Encounter This section includes the information on record at SD for the Encounter. Date/Time Encounter Type Encounter Reason Provider Source Description Jan 08, 2022 HC PRO PHONE TELEPHONE/MEDICIN ICD-10-CM Z51.81 VICTORIANO SPRING 10:50 AM CALL 11-20 MIN E Encounter for W S therapeutic drug level monitoring with Provider Comments: Encounter for therapeutic drug level monitoring IHE Encounter Template Text not used by SD Assessments - Encounter Diagnoses This section includes the primary and secondary diagnoses documented for the Encounter. Date/Time Primary/Secondary Diagnosis Name Provider Source Diagnosis Jan 08, 2022 PRIMARY Encounter for TADEO SPRING V A 10:50 AM therapeutic drug EW S HCS level monitoring Jan 08, 2022 SECONDARY senior care (current) TADEO SPRING [facility] 10:50 AM use of S [facility] anticoagulants Jan 08, 2022 SECONDARY Unspecified atrial TADEO SPRING VA 10:50 AM fibrillation EW S HCS Plan of Treatment: Future Appointments (+ 6 months) and Future Tests (+/- 45 days) The Plan of Treatment section includes future care activities for the patient from all SD treatmentfacilities. This section includes future appointments and future orders which are active, pending orscheduled.Future Appointments This section includes appointments that were scheduled to occur 6 months from the date of the Encounter, up to a maximum of 20 appointments. The data comes from all SD treatment facilities. Appointment Date/Time Appointment Type Appointment Facili ty Name January 21, 2022 09:30 AM AMBULATORY - MEDICINE [facility] CS Feb 17, 2022 08:00 AM AMBULATORY - NONE [facility] Feb 17, 2022 09:00 AM AMBULATORY - MEDICINE [facility] Feb 17, 2022 10:30 AM AMBULATORY - MEDICINE [facility] CS Mar 25, 2022 09:30 AM AMBULATORY - NONE [facility] Mar 25, 2022 10:30 AM AMBULATORY - MEDICINE [facility] CS Apr 04, 2022 08:30 AM AMBULATORY - MEDICINE [facility] CS Apr 22, 2022 08:30 AM AMBULATORY - NONE [facility] Apr 22, 2022 09:30 AM AMBULATORY - NONE [facility] Apr 22, 2022 09:45 AM AMBULATORY - NONE [facility] Apr 22, 2022 10:30 AM AMBULATORY - MEDICINE [facility] CS Apr 29, 2022 08:15 AM AMBULATORY - NONE [facility] May 05, 2022 08:30 AM AMBULATORY - SURGERY [facility] S May 20, 2022 08:00 AM AMBULATORY - MEDICINE [facility] H CS May 20, 2022 08:30 AM AMBULATORY - MEDICINE [facility] CS May 20, 2022 09:30 AM AMBULATORY - NONE [facility] May 20, 2022 10:30 AM AMBULATORY - MEDICINE [facility] H CS May 23, 2022 02:45 PM AMBULATORY - SURGERY [facility] HC S Jun 17, 2022 08:00 AM AMBULATORY - NONE [facility] Jun 17, 2022 09:00 AM AMBULATORY - MEDICINE [facility] H CS Social History: Smoking Status (Most current) and [...] 15, 2021 10:00 AM [place]-TOBACCO NEVER USED [place] [facility] Tobacco Use History This section includes a history of the smoking, or tobacco- related health factors, that were collected on or before the date of the Encounter. The data comes from the [facility] where the Encounter took place. Date/Time Smoking Status/Tobacco Use Comment [facility] Oct 05, 2019 10:05 AM VA-TOBACCO NEVER USED [place] [facility] Oct 20, 2018 12:28 PM INPT NO TOBACCO USE IN LAST 30 DAYS [facility] Sep 15, 2018 01:21 PM SD-TOBACCO NEVER USED [place] [facility] Aug 11, 2017 08:54 AM LIFETIME [...] Encounter. Date/Time Encounter Note(s) Provider Source Jan 08, 2022 10:50 AM PHARMACY OUTPATIENT MEDICATION MGT NOT E: RUEL SPRING [facility] LOCAL TITLE: PHARMACY ANTICOAGULATION CLINIC F/ U STANDARD TITLE: PHARMACY OUTPATIENT MEDICATION M GT NOTE DATE OF NOTE: JAN 08, 2022@10:50 ENTRY DATE: JAN 08, 2022@10:50:46 AUTHOR: RUEL SPRING EXP COSIGNER: URGENCY: STATUS: [...] home phone. Care Coordination: - Local Lab: [facility] Lab Direct P: [phone]; F: [phone] , F: [phone] *New CITC SO sent 06/13/21 *[facility] labs [...] week. No: Dosing discrepancies: Warfarin dose: 7.5mg TuTh & 5mg all other days ( 40mg/wk); AM Collection DT *INR mg in last 7 days 01/07/2022 local 1.62 40 12/10/2021 local 2.25 40 letter 11/26/2021 09:07 [...] 214 100.2 H 53.5 27.9 ASSESSMENT/PLAN: Subtherapeutic INR d/t unknown etiology. Unstabl e pattern recently. No complications reported. Will continue current re gimen and recheck INR in 2 weeks. If INR remains low at next check, a warfa rin dose increase may be appropriate. - Warfarin dose: CONTINUE: 7.5mg TuTh & 5mg all other days (40mg/wk) - Next INR: 01/21/22 at local lab - Rx reviewed - Letter mailed Time Spent: 15 min Patient Education of Treatment Plan: Patient indicates readiness to learn, verbalizes understanding, agreement and satisfaction with the treatment plan. Denies fur ther questions. /mustapha/ RUEL SPRING CLINICAL PHARMACIST Signed: 01/08/2022 11:05
[2022-06-06 12:00] VITALS: BP 144/88; PULSE 56; RESP 16; O2SAT 94
[2022-06-06 12:00] LABS: INR 0.97 (0.91-1.10); Prothrombin Time 13.2 Seconds
--- OUTSIDE RECORDS SUMMARY | 2022-06-06 12:00 | XMS_ITS | Encounter Summary ---
:1945 Author Organization Department [facility] rs Address [address] [place] [address] Support Name Relationship Address Phone Arti CORONEL Unavailable [address] [place] [address] ADITYA MALIN Unavailable [address] [phone] [place] [phone] Insurance Providers: All historical and current Section [...] MEDICARE MEDICARE PART May 15, PART A [id number] 800 HOMER HUNTER (WNR) (M) A 2008 94A [phone] ,ELLE MEDICARE MEDICARE PART May 15, PART B [id number] 800 HOMER DEL VALLEIENT (WNR) (M) B 2008 94A [phone] ,ELLE Selected Encounter This section includes the information on record at [place] for the Encounter. Date/Time Encounter Type Encounter Description Reason Provider Source January 21, 2022 12:00 Outpatient Encounter EVENT (HISTORICAL) AM IHE [...] 17, 2022 08:00 AM AMBULATORY - NONE [facility] Feb 17, 2022 09:00 AM AMBULATORY - MEDICINE [facility] H CS Feb 17, 2022 10:30 AM AMBULATORY - MEDICINE [facility] CS Mar 25, 2022 09:30 AM AMBULATORY - NONE [facility] Mar 25, 2022 10:30 AM AMBULATORY - MEDICINE [facility] H CS Apr 04, 2022 08:30 AM AMBULATORY - MEDICINE [facility] H CS Apr 22, 2022 08:30 AM AMBULATORY - NONE [facility] Apr 22, 2022 09:30 AM AMBULATORY - NONE [facility] Apr 22, 2022 09:45 AM AMBULATORY - NONE [facility] Apr 22, 2022 10:30 AM AMBULATORY - MEDICINE [facility] H CS Apr 29, 2022 08:15 AM AMBULATORY - NONE [facility] May 05, 2022 08:30 AM AMBULATORY - SURGERY [facility] S May 20, 2022 08:00 AM AMBULATORY - MEDICINE [facility] H CS May 20, 2022 08:30 AM AMBULATORY - MEDICINE [facility] H CS May 20, 2022 09:30 AM AMBULATORY - NONE [facility] May 20, 2022 10:30 AM AMBULATORY - MEDICINE [facility] H CS May 23, 2022 02:45 PM AMBULATORY - SURGERY [facility] S Jun 17, 2022 08:00 AM AMBULATORY - NONE [facility] Jun 17, 2022 09:00 AM AMBULATORY - MEDICINE [facility] H CS Jun 17, 2022 09:30 AM AMBULATORY - MEDICINE [facility] CS Lab Results: +/- 30 days of [...] Range Comment Feb 17, 2022 08:35 AM [facility] SEROTONIN Specim en Type: SERUM Comment: This t est was developed and its analytical performance characteristics have been determined by [employer] [facility]. It has not been cleared or approved by [facility]. This assay h as been validated pursuant to the CLIA regulations and is used for clinical purposes. Test performed by [employer] [place] [address] [address] [facility] [place] [facility] [address] Phone: Resident Program Specialist: Felicia Rizzo MD,PHD,BERTHA Test Reported by [facility], [employer] [facility], [address] [place] [address] Truman Doan M.D., Ph.D., Director of Laboratories , CLIA [id number] Ordering Provid er: LILI GARCIA Report Released Date/Time: Oct 29, 2021 10:15 AM Reporting Lab: [facility] [address] [facility] [address] Performing Lab: [address] SEROTONIN 1441 H [id number] Feb 17, 2022 08:35 [facility] CHROMOGRANIN A([place]) Spec imen Type: SERUM AM No comment enter ed. Ordering Provid er: LILI GARCIA Report Released Date/Time: Oct 29, 2021 10:15 AM Reporting Lab: [facility] [address] [facility] [address] Performing Lab: [facility] [address] [facility] [address] CHROMOGRANIN A([place]) 65 <92 Feb 17, 2022 [facility] COMPREHENSIVE METABOLIC Spec imen Type: PLASMA 08:35 AM PANEL+MG No comment enter ed. Ordering Provid er: LILI GARCIA Report Released Date/Time: Oct 29, 2021 10:15 AM Reporting Lab: [facility] [address] [facility] [address] Performing Lab: [facility] [address] [facility] [address] [facility] [address] CREATININE 1.0 0.7-1.2 UREA NITROGEN 14 8-26 GLUCOSE 112 H 74-100 SODIUM 139 136-145 POTASSIUM 4.1 3.5-5.1 CHLORIDE 107 98-107 CO2 27 22-29 CALCIUM 9.1 8.4-10.2 PROTEIN,TOTAL 6.8 6.0-8.3 ALBUMIN 4.0 3.5-5.2 BILIRUBIN, TOTAL 0.9 0.2-1.2 MAGNESIUM 2.0 1.6-2.6 ANION GAP 5 5-15 ALKALINE PHOSPHATASE 69 40-150 ALT/SGPT 16 <55 AST/SGOT 20 <34 CREAT EGFR(CKD-EPI) 78 >60 Feb 17, 2022 08:35 AM [facility] CBC & DIFF Specim en Type: BLOOD Comment: Automa rosalba Differential Performed Ordering Provid er: LILI GARCIA Report Released Date/Time: Oct 29, 2021 10:15 AM Reporting Lab: [facility] [address] [facility] [address] Performing Lab: [facility] [address] [facility] [address] WBC 5.24 4.0-11.0 RBC 4.37 L 4.6-6.2 [...] 10:00 AM [place]-TOBACCO NEVER USED [place] [facility] Tobacco Use History This section includes a history of the smoking, or tobacco- related health factors, that were collected on or before the date of the Encounter. The data comes from the [place] facility where the Encounter took place. Date/Time Smoking Status/Tobacco Use Comment [facility] Oct 05, 2019 10:05 AM [place]-TOBACCO NEVER USED [place] [facility] Oct 20, 2018 12:28 PM INPT NO TOBACCO USE IN LAST 30 DAYS [facility] Sep 15, 2018 01:21 PM VA-TOBACCO NEVER USED [place] [facility] Aug 11, 2017 08:54 AM LIFETIME NON-TOBACCO USER [facility] Jul 08, 2016 08:07 AM LIFETIME NON-TOBACCO USER [facility] May 09, 2015 02:31 PM LIFETIME NON-TOBACCO USER [facility] Apr 14, 2014 08:41 AM LIFETIME NON-TOBACCO USER [facility] Jan 06, 2007 08:51 AM LIFETIME NON-TOBACCO USER [facility]
--- OUTSIDE RECORDS SUMMARY | 2022-06-06 12:00 | XMS_ITS | Encounter Summary ---
:1945 Author Organization Department [facility] rs Address [address] [place] [address] Support Name Relationship Address Phone Arti CORONEL Unavailable [address] [place] [address] ADITYA MALIN Unavailable [address] [place] [address] Insurance Providers: All historical and current Section [...] MEDICARE MEDICARE PART May 15, PART B [id number] 800 HOMER HUNTER (WNR) (M) B 2008 94A [phone] ,ELLE MEDICARE MEDICARE PART May 15, PART A [id number] 800 HOMER HUNTER (WNR) (M) A 2008 94A [phone] ,ELLE Selected Encounter This section includes the information on record at [place] for the Encounter. Date/Time Encounter Type Encounter Reason Provider Source Description January 22, 2022 QNHP OL DIG TELEPHONE/MEDICIN ICD-10-CM Z51.81 LUISITO NI 08:27 AM ASSMT&MGMT 5-10 E Encounter for M therapeutic drug level monitoring with Provider Comments: Encounter For Therapeutic Drug Level Monitoring (ICD-10-CM Z51.81) IHE Encounter Template Text not used by [place] Assessments - Encounter Diagnoses This section includes the primary and secondary diagnoses documented for the Encounter. 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 [place] 08:27 AM use of E M HCS anticoagulants January 22, 2022 SECONDARY Unspecified atrial ISAAC NI VA 08:27 AM fibrillation E M HCS Plan of Treatment: [...] 17, 2022 08:00 AM AMBULATORY - NONE [facility] Feb 17, 2022 09:00 AM AMBULATORY - MEDICINE [facility] CS Feb 17, 2022 10:30 AM AMBULATORY - MEDICINE [facility] Mar 25, 2022 09:30 AM AMBULATORY - NONE [facility] Mar 25, 2022 10:30 AM AMBULATORY - MEDICINE [facility] Apr 04, 2022 08:30 AM AMBULATORY - MEDICINE [facility] Apr 22, 2022 08:30 AM AMBULATORY - NONE [facility] Apr 22, 2022 09:30 AM AMBULATORY - NONE [facility] Apr 22, 2022 09:45 AM AMBULATORY - NONE [facility] Apr 22, 2022 10:30 AM AMBULATORY - MEDICINE [facility] H CS Apr 29, 2022 08:15 AM AMBULATORY - NONE [facility] May 05, 2022 08:30 AM AMBULATORY - SURGERY [facility] S May 20, 2022 08:00 AM AMBULATORY - MEDICINE [facility] CS May 20, 2022 08:30 AM AMBULATORY - MEDICINE [facility] H CS May 20, 2022 09:30 AM AMBULATORY - NONE [facility] May 20, 2022 10:30 AM AMBULATORY - [facility]ICINE [facility] CS May 23, 2022 02:45 PM AMBULATORY - SURGERY [facility] S Jun 17, 2022 08:00 AM AMBULATORY - NONE [facility] Jun 17, 2022 09:00 AM AMBULATORY - MEDICINE [facility] H CS Jun 17, 2022 09:30 AM AMBULATORY - MEDICINE [facility] Lab Results: +/- 30 days of the encounter This section includes the Chemistry and Hematology Lab Results on record with [place] for the patient. Radiology Reports and Pathology Reports are provided separately, in subsequent sections.Lab Results This section contains the Chemistry/Hematology Results that were resulted 30 days before or 30 daysafter the date of the Encounter. Date/Time Source Result Type Result - Unit Interpretation Reference Range Comment Feb 17, 2022 08:35 AM [facility] SEROTONIN Specim en Type: SERUM Comment: This t est was developed and its analytical performance characteristics have been determined by [facility]. It has not been cleared or approved by [facility]. This assay h as been validated pursuant to the CLIA regulations and is used for clinical purposes. Test performed by [employer] [place] [address] [facility] [place] [address] Phone: Statistical Analyst: Felicia Rizzo MD,PHD,BERTHA Test Reported by [facility] [employer] [facility], [address] [place] [address] Truman Doan M.D., Ph.D., Director of Laboratories , CLIA [id number] Ordering Provid er: LILI GARCIA Report Released Date/Time: Oct 29, 2021 10:15 AM Reporting Lab: [facility] [address] [facility] [address] Performing Lab: [address] [address] SEROTONIN 1441 H 56-244 Feb 17, 2022 08:35 [facility] CHROMOGRANIN A(ROSE) Spec imen Type: SERUM AM No comment enter ed. Ordering Provid er: LILI GARCIA Report Released Date/Time: Oct 29, 2021 10:15 AM Reporting Lab: [facility] [address] [facility] [address] Performing Lab: [facility] [address] [address] CHROMOGRANIN A(ROSE) 65 <92 Feb 17, 2022 [facility] COMPREHENSIVE METABOLIC Spec imen Type: PLASMA 08:35 AM PANEL+MG No comment enter ed. Ordering Provid er: LILI GARCIA Report Released Date/Time: Oct 29, 2021 10:15 AM Reporting Lab: [facility] [address] [facility] [address] Performing Lab: [facility] [address] CREATININE 1.0 0.7-1.2 UREA NITROGEN 14 8-26 GLUCOSE 112 H 74-100 SODIUM 139 136-145 POTASSIUM 4.1 3.5-5.1 CHLORIDE 107 98-107 CO2 27 22-29 CALCIUM 9.1 8.4-10.2 PROTEIN,TOTAL 6.8 6.0-8.3 ALBUMIN 4.0 3.5-5.2 BILIRUBIN, TOTAL 0.9 0.2-1.2 MAGNESIUM 2.0 1.6-2.6 ANION GAP 5 5-15 ALKALINE PHOSPHATASE 69 40-150 ALT/SGPT 16 <55 AST/SGOT 20 <34 CREAT EGFR(CKD-EPI) 78 >60 Feb 17, 2022 08:35 AM [facility] CBC & DIFF Specim en Type: BLOOD Comment: Sabina navarrete Differential Performed Ordering Provid er: LILI GARCIA Report Released Date/Time: Oct 29, 2021 10:15 AM Reporting Lab: [facility] [address] Performing Lab: [facility] [address] WBC 5.24 4.0-11.0 RBC 4.37 L 4.6-6.2 [...] Comment Facility May 15, 2021 10:00 AM [place]-TOBACCO NEVER USED [place] [facility] Tobacco Use History This section includes a history of the smoking, or tobacco- related health factors, that were collected on or before the date of the Encounter. The data comes from the [facility] where the Encounter took place. Date/Time Smoking Status/Tobacco Use Comment [facility] Oct 05, 2019 10:05 AM VA-TOBACCO NEVER USED [place] [facility] Oct 20, 2018 12:28 PM INPT NO TOBACCO USE IN LAST 30 DAYS [facility] Sep 15, 2018 01:21 PM [place]-TOBACCO NEVER USED [place] [facility] Aug 11, 2017 08:54 AM LIFETIME NON-TOBACCO USER [facility] Jul 08, 2016 08:07 AM LIFETIME NON-TOBACCO USER [facility] May 09, 2015 02:31 PM LIFETIME NON-TOBACCO USER [facility] Apr 14, 2014 08:41 AM LIFETIME NON-TOBACCO USER [facility] Jan 06, 2007 08:51 AM LIFETIME NON-TOBACCO USER [facility] Encounter Notes: All associated encounter notes This section contains the clinical notes associated to the Encounter. 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 Care Coordination: - Local Lab: [facility] Lab Direct P: [phone]; F: [phone] , F: [phone] *New CITC SO sent 06/13/21 *[facility] labs valid: 03/27/21-09/23/21, new consult placed 06/13/21 SUBJECTIVE/OBJECTIVE: Assessment completed as chart review; pt was not interviewed. Warfarin dose: 7.5mg TuTh & 5mg all other days ( 40mg/wk); AM Collection DT *INR mg in last 7 days 01/21/2022 local 2.1 40 01/07/2022 local 1.62 40 12/10/2021 local 2.25 40 letter 11/26/2021 09:07 BLOOD 1.8 40 VM + letter 10/29/2021 09:12 PLASM 2.2 40 letter 10/15/2021 local 2.0 40 letter/VM 09/17/2021 local 2.04 40 letter 09/02/2021 local 2.25 37.5 missed dose 08/19/2021 local 1.86 37.5 08/07/2021 local 1.38 32.5 missed dose 07/23/2021 local 2.2 37.5 new dose Other Recent Labs Collection DT Spec WBC HGB HCT PLT MCV NEUT LYMP HS 10/29/2021 09:12 BLOOD 6.12 14.1 42.1 188 100.0 66.3 16.8 05/28/2021 09:15 BLOOD 4.25 14.2 41.6 216 99.3 5 6.1 25.4 02/28/2021 08:30 BLOOD 4.08 13.5 40.9 L 191 100. 0 52.5 28.4 01/22/2021 09:37 BLOOD 4.88 14.4 43.6 214 100.2 H 53.5 27.9 ASSESSMENT/PLAN: Therapeutic INR. Will continue current warfarin dose and reassess INR in 4 weeks. - Warfarin dose: CONTINUE: 7.5mg TuTh & 5mg all other days (40mg/wk) - Next INR: 02/18/22 at local lab - Rx reviewed. Updated/renewed Rx. - Letter mailed to pt. Time Spent: 10 minutes /mustapha/ Ameena MariaD. Pharmacist Signed: 01/22/2022 08:31
[2022-06-06 12:01] LABS: Carbon Dioxide* 30 mmol/L (20-32); Creatinine* 0.9 mg/dL (0.5-1.5); Est. Creatinine Clearance* 62.86; Estimated Glomerular Filt Rate 87 ml/min
--- OUTSIDE RECORDS SUMMARY | 2022-06-06 12:01 | XMS_ITS | Encounter Summary ---
:1945 Author Organization [facility] Address [address] [place] [id number] Support Name Relationship Address Phone Arti CORONEL Unavailable [address] [place] [address] ADITYA MALIN Unavailable [address] [place] [id number] Insurance Providers: All historical and current Section [...] MEDICARE MEDICARE PART May 15, PART B [id number] HOMER HUNTER (WNR) (M) B 2008 [id number] [phone] ,ELLE MEDICARE MEDICARE PART May 15, PART A [id number] SHAYMOYAIDAN Paige ATIENT (WNR) (M) A 2008 94A [phone] ,ELLE Selected Encounter This section includes the information on record at MD for the Encounter. 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 Date/Time Primary/Secondary Diagnosis Name Provider Source Diagnosis Feb 17, 2022 PRIMARY superintendent terminal (current) [facility] use of N M [facility] anticoagulants Feb 17, 2022 SECONDARY Cerebral ANGEL LUIS CHANDLER [place] 12:03 PM infarction, N M [facility] unspecified Feb 17, 2022 SECONDARY Encounter for ANGEL LUIS CHANDLER V A 12:03 PM therapeutic drug N M [facility] level monitoring Feb 17, 2022 SECONDARY Personal history of ANGEL LUIS CHANDLER [place] 12:03 PM other venous N M [facility] thrombosis and embolism Feb 17, 2022 SECONDARY Unspecified atrial ANGEL LUIS CHANDLER [place] 12:03 PM fibrillation N M [facility] Plan of Treatment: Future Appointments (+ 6 [...] Date/Time Appointment Type Appointment Facili ty Name Mar 25, 2022 09:30 AM AMBULATORY - NONE [facility] Mar 25, 2022 10:30 AM AMBULATORY - MEDICINE [facility] Apr 04, 2022 08:30 AM AMBULATORY - MEDICINE [facility] Apr 22, 2022 08:30 AM AMBULATORY - NONE [facility] Apr 22, 2022 09:30 AM AMBULATORY - NONE [facility] Apr 22, 2022 09:45 AM AMBULATORY - NONE [facility] Apr 22, 2022 10:30 AM AMBULATORY - MEDICINE [facility] Apr 29, 2022 08:15 AM AMBULATORY - NONE [facility] May 05, 2022 08:30 AM AMBULATORY - SURGERY [facility] May 20, 2022 08:00 AM AMBULATORY - MEDICINE [facility] May 20, 2022 08:30 AM AMBULATORY - MEDICINE [facility] May 20, 2022 09:30 AM AMBULATORY - NONE [facility] May 20, 2022 10:30 AM AMBULATORY - MEDICINE [facility] May 23, 2022 02:45 PM AMBULATORY - SURGERY [facility] Jun 17, 2022 08:00 AM AMBULATORY - NONE [facility] Jun 17, 2022 09:00 AM AMBULATORY - MEDICINE [facility] Jun 17, 2022 09:30 AM AMBULATORY - MEDICINE [facility] Active, Pending, and Scheduled Orders This section includes a listing of several types of active, pending, and scheduled orders, including clinic medications orders, diagnostic test orders, procedure orders and consult orders; where the start date of the order is 45 days before the date of the Encounter or 45 days after the date of the Encounter. The data comes from all MD treatment facilities. Test Date/Time Test Type Test Details Facility Name Mar 25, 2022 12:00 AM Laboratory - COMPREHENSIVE METABOLIC [place] [facility] Chemistry Order PANEL+MG PLASMA ONCO SP ONCE Mar 25, 2022 12:00 AM Laboratory - CBC & DIFF BLOOD [place] [facility] Chemistry Order Lab Results: +/- 30 days of the encounter This section includes the Chemistry and Hematology Lab Results on record with MD for the patient. Radiology Reports and Pathology Reports are provided separately, in subsequent sections.Lab Results This section contains the Chemistry/Hematology Results that were resulted 30 days before or 30 daysafter the date of the Encounter. Date/Time Source Result Type Result - Unit Interpretation Reference Range Comment Feb 17, 2022 08:35 AM [facility] SEROTONIN Specim en Type: SERUM Comment: This t est was developed and its analytical performance characteristics have been determined by [facility]. It has not been cleared or approved by [facility]. This assay h as been validated pursuant to the CLIA regulations and is used for clinical purposes. Test performed by [facility] [place] [address] [facility] [place] [address] Phone: Top Bottom Attaching Machine Operator: Felicia Rizzo MD,PHD,BERTHA Test Reported by [facility], [address] [place] [address] Truman Doan M.D., Ph.D., Director of Laboratories , CLIA [id number] Ordering Provid er: LILI GARCIA Report Released Date/Time: Oct 29, 2021 10:15 AM Reporting Lab: [facility] [address] [facility] [address] Performing Lab: [address] SEROTONIN 1441 H [id number] Feb 17, 2022 08:35 [facility] CHROMOGRANIN A(ROSE) Spec imen Type: SERUM AM No comment enter ed. Ordering Provid er: LILI GARCIA Report Released Date/Time: Oct 29, 2021 10:15 AM Reporting Lab: [facility] [address] [facility] [address] Performing Lab: [facility] [address] [facility] [address] CHROMOGRANIN A(MAYER) 65 <92 Feb 17, 2022 [facility] COMPREHENSIVE METABOLIC Spec imen Type: PLASMA 08:35 AM PANEL+MG No comment enter ed. Ordering Provid er: LILI GARCIA Report Released Date/Time: Oct 29, 2021 10:15 AM Reporting Lab: [facility] [address] [facility] [address] Performing Lab: [facility] [address] [facility] [address] CREATININE 1.0 0.7-1.2 UREA NITROGEN 14 8-26 GLUCOSE 112 H 74-100 SODIUM 139 136-145 POTASSIUM 4.1 3.5-5.1 CHLORIDE 107 98-107 CO2 27 22-29 CALCIUM 9.1 8.4-10.2 PROTEIN,TOTAL 6.8 6.0-8.3 ALBUMIN 4.0 3.5-5.2 BILIRUBIN, TOTAL 0.9 0.2-1.2 MAGNESIUM 2.0 1.6-2.6 ANION GAP 5 5-15 ALKALINE PHOSPHATASE 69 40-150 ALT/SGPT 16 <55 AST/SGOT 20 <34 CREAT EGFR(CKD-EPI) 78 >60 Feb 17, 2022 08:35 AM [facility] CBC & DIFF Specim en Type: BLOOD Comment: Automa rosalba Differential Performed Ordering Provid er: ILLI GARCIA Report Released Date/Time: Oct 29, 2021 10:15 AM Reporting Lab: [facility] [address] [facility] [address] Performing Lab: [facility] [address] [facility] [address] WBC 5.24 4.0-11.0 RBC 4.37 L 4.6-6.2 [...] Sukhwinder dy Source Pressure Rate Mass Index Feb 17 F 67 117/80 16 /min 96 % 0 70.866 219.8 31 [place] 2021 08:49 /min mm[Hg] in lb [facility] Social History: Smoking Status (Most current) [...] Comment Facility May 15, 2021 10:00 AM MD-TOBACCO NEVER USED [place] [facility] Tobacco Use History This section includes a history of the smoking, or tobacco- related health factors, that were collected on or before the date of the Encounter. The data comes from the MD facility where the Encounter took place. Date/Time Smoking Status/Tobacco Use Comment [facility] Oct 05, 2019 10:05 AM [place]-TOBACCO NEVER USED [place] [facility] Oct 20, 2018 12:28 PM INPT NO TOBACCO USE IN LAST 30 DAYS [facility] Sep 15, 2018 01:21 PM MD-TOBACCO NEVER USED [place] [facility] Aug 11, 2017 08:54 AM LIFETIME NON-TOBACCO USER [facility] Jul 08, 2016 08:07 AM LIFETIME NON-TOBACCO USER [facility] May 09, 2015 02:31 PM LIFETIME NON-TOBACCO USER [facility] Apr 14, 2014 08:41 AM LIFETIME NON-TOBACCO USER [facility] Jan 06, 2007 08:51 AM LIFETIME NON-TOBACCO USER [facility] Encounter Notes: All associated encounter notes This section contains the clinical notes associated to the Encounter. Date/Time Encounter Note(s) Provider Source Feb 17, 2022 11:47 AM PHARMACY OUTPATIENT MEDICATION MGT NOTE: MOHAN CONNELLY [facility] LOCAL TITLE: PHARMACY ANTICOAGULATION CLINIC F/ U STANDARD TITLE: PHARMACY OUTPATIENT MEDICATION M NOTE DATE OF NOTE: FEB 17, 2022@11:47 ENTRY DATE: FEB 17, 2022@11:47:59 AUTHOR: MOHAN CHANDLER EXP COSIGNER: URGENCY: STATUS: COMPLETED BACKGROUND: Notified by OPP that pt has been prescribed an i nteracting medication. 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 Notes: OK to call on cell phone if not available at home phone. Care Coordination: - Local Lab: [facility] Direct P: [phone]; F: [phone] , F: [phone] *New CITC SO sent 06/13/21 *[facility] labs valid: 03/27/21-09/23/21, new consult placed 06/13/21 SUBJECTIVE/OBJECTIVE: Information obtained from chart review. Yes: Health changes: - Pt has pneumonia Yes: Significant medication changes/new drug int eractions: - New: doxycycline 100mg BID x5 days, picked up 02/17/22 ([facility]) Warfarin dose: 7.5mg TuTh & 5mg all other days ( 40mg/wk); AM Collection DT *INR mg in last 7 days 01/21/2022 local 2.1 40 01/07/2022 local 1.62 40 12/10/2021 local 2.25 40 letter 11/26/2021 09:07 BLOOD 1.8 40 letter + VM 10/29/2021 09:12 PLASM 2.2 40 letter 10/15/2021 local 2.0 40 letter + VM 09/17/2021 local 2.04 40 letter 09/02/2021 local 2.25 37.5 missed dose 08/19/2021 local 1.86 37.5 Other Recent Labs Collection DT Spec WBC HGB HCT PLT MCV NEUT LYMP HS 02/17/2022 08:35 BLOOD 5.24 14.6 43.5 202 99.5 5 9.3 24.4 10/29/2021 09:12 BLOOD 6.12 14.1 42.1 188 100.0 66.3 16.8 05/28/2021 09:15 BLOOD 4.25 14.2 41.6 216 99.3 5 6.1 25.4 02/28/2021 08:30 BLOOD 4.08 13.5 40.9 L 191 100. 0 52.5 28.4 01/22/2021 09:37 BLOOD 4.88 14.4 43.6 214 100.2 H 53.5 27.9 ASSESSMENT/PLAN: Pt prescribed doxycycline wh ich may increase the INR. Pt's INR usually trends in low end of target range or even sometime s subtherapeutic on current dose. Pt's next INR already planned for tomorrow. No empiric adjustment recommended at this time. [facility] will address further at INR f/u after reviewing INR result. - Warfarin dose: CONTINUE 7.5mg TuTh & 5mg all other days (40mg/wk) - Next INR: 02/18/22 at local lab as previously pl anned - Will address DDI further at INR f/u Time Spent: 5 minutes /mustapha/ MOHAN CHANDLER PHARMD CLINICAL PHARMACIST Signed: 02/17/2022 12:04
--- OUTSIDE RECORDS SUMMARY | 2022-06-06 12:01 | XMS_ITS | Encounter Summary ---
:1945 Author Organization Department [facility] rs Address [address] [place] [address] Support Name Relationship Address Phone Arti CORONEL Unavailable [address] [place] [address] ADITYA MALIN Unavailable [address] [place] [phone] Insurance Providers: All historical and current Section [...] MEDICARE MEDICARE PART May 15, PART A [id number] [address] Gibson ATIENT (WNR) (M) A 2008 94A [phone] ,ELLE MEDICARE MEDICARE PART May 15, PART B [id number] 800 HOM[address] Paige ATIENT (WNR) (M) B 2008 94A [phone] ,ELLE Selected Encounter This section includes the information on record at [place] for the Encounter. 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 Feb 17, 2022 SECONDARY Secondary VICTORIA GARCIA [facility] 10:07 AM carcinoid tumors D HCS of bone Feb 17, 2022 SECONDARY Secondary VICTORIA GARCIA V A 10:07 AM carcinoid tumors D HCS of liver [...] 25, 2022 09:30 AM AMBULATORY - NONE [facility] Mar 25, 2022 10:30 AM AMBULATORY - MEDICINE [facility] Apr 04, 2022 08:30 AM AMBULATORY - MEDICINE [facility] Apr 22, 2022 08:30 AM AMBULATORY - NONE [facility] Apr 22, 2022 09:30 AM AMBULATORY - NONE [facility] Apr 22, 2022 09:45 AM AMBULATORY - NONE [facility] Apr 22, 2022 10:30 AM AMBULATORY - MEDICINE [facility] Apr 29, 2022 08:15 AM AMBULATORY - NONE [facility] May 05, 2022 08:30 AM AMBULATORY - SURGERY [facility] May 20, 2022 08:00 AM AMBULATORY - MEDICINE [facility] May 20, 2022 08:30 AM AMBULATORY - MEDICINE [facility] May 20, 2022 09:30 AM AMBULATORY - NONE [facility] May 20, 2022 10:30 AM AMBULATORY - MEDICINE [facility] May 23, 2022 02:45 PM AMBULATORY - SURGERY [facility] Jun 17, 2022 08:00 AM AMBULATORY - NONE [facility] Jun 17, 2022 09:00 AM AMBULATORY - MEDICINE [facility] Jun 17, 2022 09:30 AM AMBULATORY - MEDICINE [facility] Active, Pending, and Scheduled [...] the Encounter. The data comes from all [place] treatment facilities. Test Date/Time Test Type Test Details Facility Name Mar 25, 2022 12:00 AM Laboratory - COMPREHENSIVE METABOLIC [facility] Chemistry Order PANEL+MG PLASMA ONCO SP ONCE Mar 25, 2022 12:00 AM Laboratory - CBC & DIFF BLOOD SP [place] [facility] [facility] Chemistry Order Lab Results: +/- 30 days [...] Range Comment Feb 17, 2022 08:35 AM [facility] SEROTONIN Specim en Type: SERUM Comment: This t est was developed and its analytical performance characteristics have been determined by [facility]. It has not been cleared or approved by [facility]. This assay h as been validated pursuant to the CLIA regulations and is used for clinical purposes. Test performed by [employer] [facility] [address] [facility], [place] [address] Phone: Clinic Charge Nurse: Felicia Rizzo MD,PHD,BERTHA Test Reported by [facility], [employer] [facility], [address] [place] [address] Truman Doan M.D., Ph.D., Director of Laboratories , CLIA [id number] Ordering Provid er: LILI GARCIA Report Released Date/Time: Oct 29, 2021 10:15 AM Reporting Lab: [facility] [address] [facility] [address] [facility] [address] Performing Lab: [address] [place] 1441 H [id number] Feb 17, 2022 08:35 [facility] CHROMOGRANIN A(ROSE) Spec imen Type: SERUM AM No comment enter ed. Ordering Provid er: LILI GARCIA Report Released Date/Time: Oct 29, 2021 10:15 AM Reporting Lab: [facility] [address] Performing Lab: [facility] [address] NEEL GARCIA [facility] [address] CHROMOGRANIN A(GRANT) 65 <92 Feb 17, 2022 [facility] COMPREHENSIVE METABOLIC Spec imen Type: PLASMA 08:35 AM PANEL+MG No comment enter ed. Ordering Provid er: LILI GARCIA Report Released Date/Time: Oct 29, 2021 10:15 AM Reporting Lab: [facility] [address] Performing Lab: [facility] [address] CREATININE 1.0 0.7-1.2 UREA NITROGEN 14 8-26 GLUCOSE 112 H 74-100 SODIUM 139 136-145 POTASSIUM 4.1 3.5-5.1 CHLORIDE 107 98-107 CO2 27 22-29 CALCIUM 9.1 8.4-10.2 PROTEIN,TOTAL 6.8 6.0-8.3 ALBUMIN 4.0 3.5-5.2 BILIRUBIN, TOTAL 0.9 0.2-1.2 MAGNESIUM 2.0 1.6-2.6 ANION GAP 5 5-15 ALKALINE PHOSPHATASE 69 40-150 ALT/SGPT 16 <55 AST/SGOT 20 <34 CREAT EGFR(CKD-EPI) 78 >60 Feb 17, 2022 08:35 AM [facility] CBC & DIFF Specim en Type: BLOOD Comment: Automa rosalba Differential Performed Ordering Provid er: LILI GARCIA Report Released Date/Time: Oct 29, 2021 10:15 AM Reporting Lab: [facility] [address] Performing Lab: [facility] [address] WBC 5.24 4.0-11.0 RBC 4.37 L 4.6-6.2 [...] Zainab dy Source Pressure Rate Mass Index Feb 17 F 67 117/80 16 /min 96 % 0 70.866 219.8 31 [place] 2021 08:49 /min mm[Hg] in lb [facility] Social History: Smoking Status (Most current) and [...] 15, 2021 10:00 AM [place]-TOBACCO NEVER USED [facility] Tobacco Use History This section includes a history of the smoking, or tobacco- related health factors, that were collected on or before the date of the Encounter. The data comes from the [place] facility where the Encounter took place. Date/Time Smoking Status/Tobacco Use Comment [facility] Oct 05, 2019 10:05 AM [place]-TO[place] US[place] [facility] Oct 20, 2018 12:28 PM INPT NO TOBACCO USE IN LAST 30 DAYS [facility] Sep 15, 2018 01:21 PM [place]-TO[place]ACCO NEVER USED [place] [facility] Aug 11, 2017 08:54 AM LIFETIME NON-TOBACCO USER [facility] Jul 08, 2016 08:07 AM LIFETIME NON-TOBACCO USER [facility] May 09, 2015 02:31 PM LIFETIME NON-TOBACCO USER [facility] Apr 14, 2014 08:41 AM LIFETIME NON-TOBACCO USER [facility] Jan 06, 2007 08:51 AM LIFETIME NON-TOBACCO USER [facility] Encounter Notes: All associated encounter notes This section contains the clinical notes associated to the Encounter. Date/Time Encounter Note(s) Provider Source Feb 17, 2022 09:46 AM HEMATOLOGY AND ONCOLOGY ATTENDING NOTE: LILI WHITTINGTON [facility] LOCAL TITLE: HEME/ONC CLINIC NOTE STANDARD TITLE: HEMATOLOGY AND ONCOLOGY ATTENDIN G NOTE DATE OF NOTE: FEB 17, 2022@09:46 ENTRY DATE: FEB 17, 2022@09:46:18 AUTHOR: LILI GARCIA EXP COSIGNER: URGENCY: STATUS: COMPLETED Date of service: 02/17/22 Last visit: 10/29/21 Reason for visit: Carcinoid with mets to bone an d liver and Prostate Cancer Treatment: On montly octreotide Oncologist: HPI: 76 y/o male with carcinoid, primary site at the ileum with involvement of mesenteric lymph node(s), zainab ne and liver noted on dotatate scan done in 10/2019. He has been on long acting o ctreotide since 08/2019 with overall stable disease. He also has prostate cancer, s/p HIFU treatment in [place] and is being followed by Urology at [facility]. Here today for follow -up. Interval Hx: Patient states that he continues do well overall without symptoms related to carcinoid. No new issues since last seen. No abd pain. Good appetite. Wt stable. Denies diarrhea, flu shing, n/v, brbpr, melena, changes in stool habits. No f/c/ns, SOB, cough, chest pain, urinary sxs, neuro changes, bone pain or rash. Was seen at [facility] oncology last week with repeat CT and MRI done there which show overall stable disease. Leaving for [place] tomorrow Cancer History: - carcinoid, primary site at the ileum with invo lvement of mesenteric lymph node(s). - He also has prostate cancer Mario 3+ 4, pt had HIFU in [place] 10/09/07 and 2 treatments of lupron. 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 - Also a saturation biopsy o f the prostate done at [facility] 11/20/08 with no evidence for prostate cancer [...] to - 01/2014 Underwent salvage prostatectomy at [facility] . - 07/17/14 CT c/a/p: Impression: 1. [...] the lung parench yma bilaterally unchanged since 2012. Low attenuating lesions within the liver parenc [...] vertebral body on the right unchanged since 2016 but has increased in size since 2014. [...] acting Octreotide 09/2019 Dotatate scan done at [facility] 1. Innumerable mets throughout bones of the [...] 4. At L5-S1, moderate left foraminal stenosis. 02/07/22 CT and MRI done at [facility] show: MRI show: No significant interval change of the metastatic disease in the abdomen. CT show: 1. New, likely inflammatory, groundglass opacit ies in the lingula. 2. Remainder of exam is stable. Meds reviewed/Allergies reviewed: DIAL SOAP (Mar 25, 2007) NAPROXEN (February 05, 2011) Nursing note and vitals reviewed: Height: 70.866 in [180.0 cm] (02/17/2022 08:49) Weight: 219.8 lb [99.70 kg] (02/17/2022 08:49) BSA: 2.24 BMI: 30.8 BP: 117/80 (02/17/2022 08:49) Pulse: 67 (02/17/2022 08:49) Resp: 16 (02/17/2022 08:49) Temp: 98 F [36.7 C] (02/17/2022 08:49) Pain: 0 (02/17/2022 08:49) PHYSICAL EXAMINATION: General: NAD Lymphatic: No palpable [...] the patient at today's clinic visit. HGB 14.6 (02/17/22) HCT 43.5 (02/17/22) MCV 99.5 (02/17/22) WBC 5.24 (02/17/22) ABS NEUT 3.11 (02/17/22) ABS LYMPH 1.28 (02/17/22) PLT 202 (02/17/22) CREATININE 1.0 (02/17/22) UREA NITROGEN 14 (02/17/22) GLUCOSE 112 H (02/17/22) CALCIUM 9.1 (02/17/22) POTASSIUM 4.1 (02/17/22) SODIUM 139 (02/17/22) CHLORIDE 107 (02/17/22) MAGNESIUM 2.0 (02/17/22) PROTEIN,TOTAL 6.8 (02/17/22) ALBUMIN 4.0 (02/17/22) ALK PHOSPHATASE 69 (02/17/22) SGOT 20 (02/17/22) SGPT 16 (02/17/22) BILIRUBIN, TOTAL 0.9 (02/17/22) LD,TOTAL 186 (10/29/21) Performance Status: ECOG - 0 ASSESSMENT/PLAN: (1) 76 y/o male with Carcinoid involving ileum a nd mesenteric LNs initially diagnosed in 2008. He was on surveillance with s table/normal Chromagranin A. However, in 08/2019 he was n oted to have enlargement of the mesenteric mass but also new galo lesions suspicious for zainab ne mets and [...] previous of 1400. PET Dotatate done at [facility] 01/28/21 show mixed findings with innumerable osseous [...] labs are stable. Was seen recently at [facility]. CT and MRI done there on 02/07/22 show overall stable disease. - Maintain on [...] symptoms in futu re if needed - With progression down the road, consideration can be given to PRRT (NETTER-3) or everolimus (RADIANT-4) - He has f/u with [facility] in 4 months with MRI liver and CT chest - RTC in 4 months with labs here - Repeat TTE every couple of years (next due ) thru [facility]. 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 [...] and EHR documentation /mustapha/ ZONIA SHRESTHA PHYSICIAN COLLAR FOLDER OPERATOR Signed: 02/17/2022 10:07 Feb 17, 2022 08:51 AM INTERNAL MEDICINE OUTPATIENT NOTE: Marina HELM [facility] LOCAL TITLE: MEDICINE CLINIC NURSING NOTE STANDARD TITLE: INTERNAL MEDICINE OUTPATIENT NOT E DATE OF NOTE: FEB 17, 2022@08:51 ENTRY DATE: FEB 17, 2022@08:51:59 AUTHOR: LUCIANA HELM EXP COSIGNER: URGENCY: STATUS: COMPLETED TYPE OF VISIT: Appointment Check In Type of appointment: In-person appointment REASON FOR VISIT: Scheduled Appointment ALLERGIES: DIAL SOAP (Mar 25, 2007) NAPROXEN (February 05, 2011) VITAL SIGNS: Blood Pressure: 117/80 (02/17/2022 08:49) Pulse: 67 (02/17/2022 08:49) Respiration: 16 (02/17/2022 08:49) Temperature: 98 F [36.7 C] (02/17/2022 08:49) Weight: 219.8 lb [99.70 kg] (02/17/2022 08:49) Height: 70.866 in [180.0 cm] (02/17/2022 08:49) BMI: 30.8 O2 Sat: 96% (02/17/2022 08:49) Pain: 0 (02/17/2022 08:49) PAIN SCREEN: Patient is not having significant pain that the y wish to discuss with their provider today. MEDICATION Over the Counter/Herbal Medications: The patient states that they take some outside medications and/or herbals. /mustapha/ LUCIANA HELM PARALEGAL Signed: 02/17/2022 08:52
--- OUTSIDE RECORDS SUMMARY | 2022-06-06 12:01 | XMS_ITS | Encounter Summary ---
:1945 Author Organization Department [facility] rs Address [address] [place] [id number] Support Name Relationship Address Phone Arti CORONEL JARED Unavailable [address] [place] [address] ADITYA MALIN Unavailable [address] [place] [address] Insurance Providers: All historical and current Section [...] MEDICARE MEDICARE PART May 15, PART A [id number] 800 [address] Paige ELSA (WNR) (M) A 2008 94A [phone] ,ELLE MEDICARE MEDICARE PART May 15, PART B [id number] 800 SHAYMOYAIDAN Paige DEL [place]LEED[place] (WNR) (M) B 2008 [id number] [id number] ,ELLE Selected Encounter This section includes the information on record at [place] for the Encounter. Date/Time Encounter Type Encounter Reason Provider Source Description Feb 17, 2022 THER/PROPH/DIAG CHEMOTHERAPY PROC. ICD-10-CM D07.5 VANDANA CHAVARRIA 10:30 AM INJ SC/IM UNIT-MED. 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 Date/Time Primary/Secondary Diagnosis Name Provider Source Diagnosis Feb 17, 2022 PRIMARY Carcinoma in GULBRANSON,VANDANA [facility] 11:24 AM situ of TA K HCS prostate Plan of Treatment: Future Appointments (+ 6 months) and Future Tests (+/- 45 days) The Plan of Treatment section includes future care activities for the patient from all [facility]. This section includes future appointments and future orders which are active, pending orscheduled.Future Appointments This section includes appointments that were scheduled to occur 6 months from the date of the Encounter, up to a maximum of 20 appointments. The data comes from all [place] treatment facilities. Appointment Date/Time Appointment Type Appointment Facili ty Name Mar 25, 2022 09:30 AM AMBULATORY - NONE [facility] Mar 25, 2022 10:30 AM AMBULATORY - MEDICINE [facility] Apr 04, 2022 08:30 AM AMBULATORY - MEDICINE [facility] Apr 22, 2022 08:30 AM AMBULATORY - NONE [facility] Apr 22, 2022 09:30 AM AMBULATORY - NONE [facility] Apr 22, 2022 09:45 AM AMBULATORY - NONE [facility] Apr 22, 2022 10:30 AM AMBULATORY - MEDICINE [facility] Apr 29, 2022 08:15 AM AMBULATORY - NONE [facility] May 05, 2022 08:30 AM AMBULATORY - SURGERY [facility] May 20, 2022 08:00 AM AMBULATORY - MEDICINE [facility] May 20, 2022 08:30 AM AMBULATORY - MEDICINE [facility] May 20, 2022 09:30 AM AMBULATORY - NONE [facility] May 20, 2022 10:30 AM AMBULATORY - MEDICINE [facility] May 23, 2022 02:45 PM AMBULATORY - SURGERY [facility] Jun 17, 2022 08:00 AM AMBULATORY - NONE [facility] Jun 17, 2022 09:00 AM AMBULATORY - MEDICINE [facility] Jun 17, 2022 09:30 AM AMBULATORY - MEDICINE [facility] Active, Pending, and Scheduled Orders This section includes a listing of several types of active, pending, and scheduled orders, including clinic medications orders, diagnostic test orders, procedure orders and consult orders; where the start date of the order is 45 days before the date of the Encounter or 45 days after the date of the Encounter. The data comes from all [facility]. Test Date/Time Test Type Test Details Facility Name Mar 25, 2022 12:00 AM Laboratory - COMPREHENSIVE METABOLIC [place] [facility] Chemistry Order PANEL+MG PLASMA ONCO SP ONCE Mar 25, 2022 12:00 AM Laboratory - CBC & DIFF BLOOD SP [place] [facility] Chemistry Order Lab Results: +/- 30 days of the encounter This section includes the Chemistry and Hematology Lab Results on record with [place] for the patient. Radiology Reports and Pathology Reports are provided separately, in subsequent sections.Lab Results This section contains the Chemistry/Hematology Results that were resulted 30 days before or 30 daysafter the date of the Encounter. Date/Time Source Result Type Result - Unit Interpretation Reference Range Comment Feb 17, 2022 08:35 AM [facility] SEROTON[facility] Specim en Type: SERUM Comment: This t est was developed and its analytical performance characteristics have been determined by [facility], [place] [facility]. It has not been cleared or approved by [facility]. This assay h as been validated pursuant to the CLIA regulations and is used for clinical purposes. Test performed by [employer] [address] [place], [place] [address] Phone: [employer] Worker: Felicia Rizzo MD,PHD,BERTHA Test Reported by [facility], [facility], [address] [place] [address] Truman Doan M.D., Ph.D., Director of Laboratories , CLIA [id number] Ordering Provid er: LILI GARCIA Report Released Date/Time: Oct 29, 2021 10:15 AM Reporting Lab: [facility] [address] [facility] [address] Performing Lab: [address] [place] 1441 H [id number] Feb 17, 2022 08:35 [facility] CHROMOGRANIN A(ROSE) Spec imen Type: SERUM AM No comment enter ed. Ordering Provid er: LILI GARCIA Report Released Date/Time: Oct 29, 2021 10:15 AM Reporting Lab: [facility] [address] [facility] [address] Performing Lab: [facility] [address] [facility] [address] CHROMOGRANIN A(ROSE) 65 <92 Feb 17, 2022 [facility] COMPREHENSIVE METABOLIC Spec imen Type: PLASMA 08:35 AM PANEL+MG No comment enter ed. Ordering Provid er: LILI GARCIA Report Released Date/Time: Oct 29, 2021 10:15 AM Reporting Lab: [facility] [address] Performing Lab: [facility] [address] CREATININE 1.0 0.7-1.2 UREA NITROGEN 14 8-26 GLUCOSE 112 H 74-100 SODIUM 139 136-145 POTASSIUM 4.1 3.5-5.1 CHLORIDE 107 98-107 CO2 27 22-29 CALCIUM 9.1 8.4-10.2 PROTEIN,TOTAL 6.8 6.0-8.3 ALBUMIN 4.0 3.5-5.2 BILIRUBIN, TOTAL 0.9 0.2-1.2 MAGNESIUM 2.0 1.6-2.6 ANION GAP 5 5-15 ALKALINE PHOSPHATASE 69 40-150 ALT/SGPT 16 <55 AST/SGOT 20 <34 CREAT EGFR(CKD-EPI) 78 >60 Feb 17, 2022 08:35 AM [facility] CBC & DIFF Specim en Type: BLOOD Comment: Automa rosalba Differential Performed Ordering Provid er: LILI GARCIA Report Released Date/Time: Oct 29, 2021 10:15 AM Reporting Lab: [facility] [address] Performing Lab: [facility] [address] WBC 5.24 4.0-11.0 RBC 4.37 L 4.6-6.2 [...] [place] 2021 08:49 /min mm[Hg] in lb [facility] Social History: Smoking Status (Most current) and Tobacco Use (All prior to encounter date) This section includes the most current, and the historical, smoking and tobacco-related health factors from the [facility] where the Encounter took place.Current Smoking Status This section includes the most current smoking, or tobacco-related health factor, from the [place] facility where the Encounter took place. Date/Time Current Smoking Status Comment Facility May 15, 2021 10:00 AM [place]-TOBACCO NEVER USED [facility] [facility] Tobacco Use History This section includes a history of the smoking, or tobacco- related health factors, that were collected on or before the date of the Encounter. The data comes from the [facility] where the Encounter took place. Date/Time Smoking Status/Tobacco Use Comment [facility] Oct 05, 2019 10:05 AM [place]-TOBACCO NEVER USED [place] [facility] Oct 20, 2018 12:28 PM INPT NO TOBACCO USE IN LAST 30 DAYS [facility] Sep 15, 2018 01:21 PM [place]-TOBACCO NEVER USED [place] [facility] Aug 11, 2017 08:54 AM LIFETIME NON-TOBACCO USER [facility] Jul 08, 2016 08:07 AM LIFETIME NON-TOBACCO USER [facility] May 09, 2015 02:31 PM LIFETIME NON-TOBACCO USER [facility] Apr 14, 2014 08:41 AM LIFETIME NON-TOBACCO USER [facility] Jan 06, 2007 08:51 AM LIFETIME NON-TOBACCO USER [facility] Encounter Notes: All associated encounter notes This section contains the clinical notes associated to the Encounter. 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 [99.70 kg] (02/17/2022 08:49) Body Surface Area: 2.24 Temperature: 98 F [36.7 C] (02/17/2022 08:49) Blood Pressure (BP): 117/80 (02/17/2022 08:49) Pulse: 67 (02/17/2022 08:49) Respiration: 16 (02/17/2022 08:49) Physician: Other: Lili Garcia Allergies: DIAL SOAP (Mar 25, 2007) NAPROXEN (February 05, 2011) Labs: CBC + Diff: WBC 5.24 (02/17/22) ABS NEUT 3.11 (02/17/22) HGB 14.6 (02/17/22) PLT 202 (02/17/22) Chemistry: SODIUM 139 (02/17/22) POTASSIUM 4.1 (02/17/22) CALCIUM 9.1 (02/17/22) MAGNESIUM 2.0 (02/17/22) CREATININE 1.0 (02/17/22) ALK PHOSPHATASE 69 (02/17/22) SGPT 16 (02/17/22) SGOT 20 (02/17/22) BILIRUBIN, TOTAL 0.9 (02/17/22) Tumor Markers: CEA____ CA 125 TUMOR MARKER____ CA 19-9____ PSA - NONE FOUND Informed consent signed and on chart. Non chemo procedures SQ/IM Medication: Octreotide LAR IM Dosage: 20mg Site: Right glute Time: 1100 Problems/Complications: Nausea/Vomiting: No Hemorrhage: No Diarrhea: No Infection: No Fatigue: Yes Grade I: mild/greater than baselin e Neuropathy: No Rash: No Mucositis: No Patient Response/Status: Patient ambulatory in a nd out of clinic. Patient tolerated IM injection, to right glute, without complication. Injection site covered with bandage. DISCHARGED TO: Home at 1105 /es/ JORDYN ZEPEDA RN REGISTERED NURSE Signed: 02/17/2022 11:25
[2022-06-06 12:02] LABS: Blood Urea Nitrogen* 13 mg/dL (7-30); Glucose* 95 mg/dL (60-115)
--- OUTSIDE RECORDS SUMMARY | 2022-06-06 12:02 | XMS_ITS | Encounter Summary ---
:1945 Author Organization Department [facility] rs Address [address] [place] [address] Support Name Relationship Address Phone Arti CORONEL Unavailable [address] [facility] [place] [address] ADITYA MALIN Unavailable [address] [place] [phone] Insurance Providers: All historical and current Section [...] MEDICARE MEDICARE PART May 15, PART A [id number] 800 HOMER HUNTER (WNR) (M) A 2008 94A [phone] ,ELLE MEDICARE MEDICARE PART May 15, PART B [id number] 800 HOMER HUNTER (WNR) (M) B 2008 [id number] [id number] ,ELLE Selected Encounter This section includes the information on record at [place] for the Encounter. Date/Time Encounter Type Encounter Reason Provider Source Description Feb 19, 2022 HC PRO PHONE TELEPHONE/MEDICIN ICD-10-CM Z51.81 VICTORIANO SPRING 08:42 AM CALL 11-20 MIN E Encounter for W S therapeutic drug level monitoring with Provider Comments: Encounter for Therapeutic Drug Level Monitoring IHE Encounter Template Text not used by [place] Assessments - Encounter Diagnoses This section includes the primary and secondary diagnoses documented for the Encounter. 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 This section includes future appointments and future orders which are active, pending orscheduled.Future Appointments This section includes appointments that were scheduled to occur 6 months from the date of the Encounter, up to a maximum of 20 appointments. The data comes from all [place] treatment facilities. Appointment Date/Time Appointment Type Appointment Facili ty Name Mar 25, 2022 09:30 AM AMBULATORY - NONE [facility] Mar 25, 2022 10:30 AM AMBULATORY - MEDICINE [facility] Apr 04, 2022 08:30 AM AMBULATORY - MEDICINE [facility] CS Apr 22, 2022 08:30 AM AMBULATORY - NONE [facility] Apr 22, 2022 09:30 AM AMBULATORY - NONE [facility] Apr 22, 2022 09:45 AM AMBULATORY - NONE [facility] Apr 22, 2022 10:30 AM AMBULATORY - MEDICINE [facility] CS Apr 29, 2022 08:15 AM AMBULATORY - NONE [facility] May 05, 2022 08:30 AM AMBULATORY - SURGERY [facility] S May 20, 2022 08:00 AM AMBULATORY - MEDICINE [facility] May 20, 2022 08:30 AM AMBULATORY - MEDICINE [facility] May 20, 2022 09:30 AM AMBULATORY - NONE [facility] May 20, 2022 10:30 AM AMBULATORY - MEDICINE [facility] May 23, 2022 02:45 PM AMBULATORY - SURGERY [facility] S Jun 17, 2022 08:00 AM AMBULATORY - NONE [facility] Jun 17, 2022 09:00 AM AMBULATORY - MEDICINE [facility] Jun 17, 2022 09:30 AM AMBULATORY - MEDICINE [facility] Active, Pending, and Scheduled Orders This section includes a listing of several types of active, pending, and scheduled orders, including clinic medications orders, diagnostic test orders, procedure orders and consult orders; where the start date of the order is 45 days before the date of the Encounter or 45 days after the date of the Encounter. The data comes from all [place] treatment [facility]. Test Date/Time Test Type Test Details Facility Name Mar 25, 2022 12:00 AM Laboratory - [facility] Order PANEL+MG PLASMA ONCO SP ONCE Mar 25, 2022 12:00 AM Laboratory - CBC & DIFF BLOOD SP [facility] Chemistry Order Lab Results: +/- 30 days [...] Range Comment Feb 17, 2022 08:35 AM [facility] SEROTONIN Specim en Type: SERUM Comment: This t est was developed and its analytical performance characteristics have been determined by [employer] [facility]. It has not been cleared or approved by [facility]. This assay h as been validated pursuant to the CLIA regulations and is used for clinical purposes. Test performed by [employer] [address] [place], [place] [address] Phone: Shower Doors And Panels Fabricator: Felicia Rizzo MD,PHD,BERTHA Test Reported by [facility], [employer] [facility], [address] [place] [address] Truman Doan M.D., Ph.D., Director of Months Of Me , CLIA [id number] Ordering Provid er: LILI GARCIA Report Released Date/Time: Oct 29, 2021 10:15 AM Reporting Lab: [facility] [address] [facility] [address] Performing Lab: [address] SEROTONIN 1441 H 56-244 Feb 17, 2022 08:35 [facility] CHROMOGRANIN A(ROSE) Spec imen Type: SERUM AM No comment enter ed. Ordering Provid er: LILI GARCIA Report Released Date/Time: Oct 29, 2021 10:15 AM Reporting Lab: [facility] [address] [facility] [address] Performing Lab: [facility] [address] NEEL GARCIA [facility] [address] CHROMOGRANIN A(ROSE) 65 <92 Feb 17, 2022 [facility] COMPREHENSIVE METABOLIC Spec imen Type: PLASMA 08:35 AM PANEL+MG No comment enter ed. Ordering Provid er: LILI GARCIA Report Released Date/Time: Oct 29, 2021 10:15 AM Reporting Lab: [facility] [address] Performing Lab: [facility] [address] CREATININE 1.0 0.7-1.2 UREA NITROGEN 14 8-26 GLUCOSE 112 H 74-100 SODIUM 139 136-145 POTASSIUM 4.1 3.5-5.1 CHLORIDE 107 98-107 CO2 27 22-29 CALCIUM 9.1 8.4-10.2 PROTEIN,TOTAL 6.8 6.0-8.3 ALBUMIN 4.0 3.5-5.2 BILIRUBIN, TOTAL 0.9 0.2-1.2 MAGNESIUM 2.0 1.6-2.6 ANION GAP 5 5-15 ALKALINE PHOSPHATASE 69 40-150 ALT/SGPT 16 <55 AST/SGOT 20 <34 CREAT EGFR(CKD-EPI) 78 >60 Feb 17, 2022 08:35 AM [facility] CBC & DIFF Specim en Type: BLOOD Comment: Automa rosalba Differential Performed Ordering Provid er: LILI GARCIA Report Released Date/Time: Oct 29, 2021 10:15 AM Reporting Lab: [facility] [address] Performing Lab: [facility] [address] WBC 5.24 4.0-11.0 RBC 4.37 L 4.6-6.2 [...] and tobacco-related health factors from the [facility] where the Encounter took place.Current Smoking Status This section includes the most current smoking, or tobacco-related health factor, from the [facility] where the Encounter took place. Date/Time Current Smoking Status Comment Facility May 15, 2021 10:00 AM [place]-TOBACCO [facility] Tobacco Use History This section includes a history of the smoking, or tobacco- related health factors, that were collected on or before the date of the Encounter. The data comes from the [facility] where the Encounter took place. Date/Time Smoking Status/Tobacco Use Comment [facility] Oct 05, 2019 10:05 AM [place] USED [place] [facility] Oct 20, 2018 12:28 PM INPT NO TOBACCO USE IN LAST 30 DAYS [facility] Sep 15, 2018 01:21 PM [place]-TOBACCO [place] USED [place] [facility] Aug 11, 2017 08:54 AM LIFETIME NON-TOBACCO USER [facility] Jul 08, 2016 08:07 AM LIFETIME NON-TOBACCO USER [facility] May 09, 2015 02:31 PM LIFETIME NON-TOBACCO USER [facility] Apr 14, 2014 08:41 AM LIFETIME NON-TOBACCO USER [facility] Jan 06, 2007 08:51 AM LIFETIME NON-TOBACCO USER [facility] Encounter Notes: All associated encounter notes This section contains the clinical notes associated to the Encounter. Date/Time Encounter Note(s) Provider Source Feb 19, 2022 08:42 AM PHARMACY OUTPATIENT MEDICATION MGT NOT E: RUEL SPRING [facility] LOCAL TITLE: PHARMACY ANTICOAGULATION CLINIC F/ U STANDARD TITLE: PHARMACY OUTPATIENT MEDICATION M GT NOTE DATE OF NOTE: FEB 19, 2022@08:42 ENTRY DATE: FEB 19, 2022@08:42:58 AUTHOR: RUEL SPRING EXP COSIGNER: URGENCY: STATUS: COMPLETED Indication: Afib Secondary Indication: - Dx with [...] home phone. Care Coordination: - Local Lab: [facility] Lab Direct P: [phone]; F: [phone] , F: [phone] *New CITC SO sent 06/13/21 *[facility] labs valid: 03/27/21-09/23/21, new consult placed 06/13/21 SUBJECTIVE/OBJECTIVE: Information obtained from chart review. Yes: Health changes: - Pt has pneumonia Yes: Significant medication changes/new drug int eractions: - New: doxycycline 100mg BID x5 days, picked up 02/17/22 (may inc INR) Warfarin dose: 7.5mg TuTh & 5mg all other days ( 40mg/wk); AM Collection DT *INR mg in last 7 days 02/18/2022 local 2.19 40 letter 01/21/2022 local 2.1 40 01/07/2022 local 1.62 [...] 100.2 H 53.5 27.9 ASSESSMENT/PLAN: Therapeutic INR. Pt recently started a 5 day cou rse of doxycycline which may increase INR. However, as IN R is already at low end of goal range, no adjustment is required at this time. Continue curre nt regimen and recheck INR in 4 weeks. - Warfarin dose: CONTINUE 7.5mg TuTh & 5mg all other days (40mg/wk) - Next INR: 03/18/22 at local lab - Rx assessed - Letter sent Time Spent: 15 minutes /mustapha/ RUEL SPRING CLINICAL PHARMACIST Signed: 02/19/2022 08:47
--- OUTSIDE RECORDS SUMMARY | 2022-06-06 12:02 | XMS_ITS | Encounter Summary ---
:1945 Author Organization Department [facility] rs Address [address] [place] [address] Support Name Relationship Address Phone Arti CORONEL Unavailable [address] [place] [address] ADITYA MALIN Unavailable [address] [phone] [place] [phone] Insurance Providers: All historical and current Section [...] MEDICARE MEDICARE PART May 15, PART A [id number] 800 HOMER HUNTER (WNR) (M) A 2008 94A [phone] ,ELLE MEDICARE MEDICARE PART May 15, PART B [id number] 800 HOMER DEL VALLEIENT (WNR) (M) B 2008 94A [phone] ,ELLE Selected Encounter This section includes the information on record at [place] for the Encounter. Date/Time Encounter Type Encounter Description Reason Provider Source Feb 17, 2022 12:00 Outpatient Encounter EVENT (HISTORICAL) AM [...] 25, 2022 09:30 AM AMBULATORY - NONE [facility] Mar 25, 2022 10:30 AM AMBULATORY - MEDICINE [facility] Apr 04, 2022 08:30 AM AMBULATORY - MEDICINE [facility] Apr 22, 2022 08:30 AM AMBULATORY - NONE [facility] Apr 22, 2022 09:30 AM AMBULATORY - NONE [facility] Apr 22, 2022 09:45 AM AMBULATORY - NONE [facility] Apr 22, 2022 10:30 AM AMBULATORY - MEDICINE [facility] CS Apr 29, 2022 08:15 AM AMBULATORY - NONE [facility] May 05, 2022 08:30 AM AMBULATORY - SURGERY [facility] S May 20, 2022 08:00 AM AMBULATORY - MEDICINE [facility] CS May 20, 2022 08:30 AM AMBULATORY - MEDICINE [facility] CS May 20, 2022 09:30 AM AMBULATORY - NONE [facility] May 20, 2022 10:30 AM AMBULATORY - MEDICINE [facility] CS May 23, 2022 02:45 PM AMBULATORY - SURGERY [facility] S Jun 17, 2022 08:00 AM AMBULATORY - NONE [facility] Jun 17, 2022 09:00 AM AMBULATORY - MEDICINE [facility] CS Jun 17, 2022 09:30 AM AMBULATORY - MEDICINE [facility] CS Active, Pending, and Scheduled Orders This section includes a listing of several types of active, pending, and scheduled orders, including clinic medications orders, diagnostic test orders, procedure orders and consult orders; where the start date of the order is 45 days before the date of the Encounter or 45 days after the date of the Encounter. The data comes from all [place] treatment facilities. Test Date/Time Test Type Test Details Facility Name Mar 25, 2022 12:00 AM Laboratory - COMPREHENSIVE [facility]ABOLIC [place] [facility] Chemistry Order PANEL+MG PLASMA ONCO SP ONCE Mar 25, 2022 12:00 AM Laboratory - CBC & DIFF [facility]LOOD [facility] Chemistry Order Lab Results: +/- 30 [...] Range Comment Feb 17, 2022 08:35 AM [facility] SEROTONIN Specim en Type: SERUM Comment: This t est was developed and its analytical performance characteristics have been determined by [employer] [facility]. It has not been cleared or approved by [facility]. This assay h as been validated pursuant to the CLIA regulations and is used for clinical purposes. Test performed by [employer] [facility] [address] [address] [facility] [place] [address] Phone: Test Rack Operator: Felicia Rizzo MD,PHD,BERTHA Test Reported by [facility], [facility] [facility], [address] [place] [address] Truman Doan M.D., Ph.D., Director of Laboratories , CLIA [id number] Ordering Provid er: LILI GARCIA Report Released Date/Time: Oct 29, 2021 10:15 AM Reporting Lab: [facility] [address] [facility] [address] Performing Lab: [address] SEROTONIN 1441 H 56-244 Feb 17, 2022 08:35 [facility] CHROMOGRANIN A(DRUMORE) Spec imen Type: SERUM AM No comment enter ed. Ordering Provid er: LILI GARCIA Report Released Date/Time: Oct 29, 2021 10:15 AM Reporting Lab: [facility] [address] [facility] [address] Performing Lab: [facility] [address] NEEL GARCIA [facility] [address] CHROMOGRANIN A(DRUMORE) 65 <92 Feb 17, 2022 [facility] COMPREHENSIVE METABOLIC Spec imen Type: PLASMA 08:35 AM PANEL+MG No comment enter ed. Ordering Provid er: LILI GARCIA Report Released Date/Time: Oct 29, 2021 10:15 AM Reporting Lab: [facility] [address] [facility] [address] Performing Lab: [facility] [address] CREATININE 1.0 0.7-1.2 UREA NITROGEN 14 8-26 GLUCOSE 112 H 74-100 SODIUM 139 136-145 POTASSIUM 4.1 3.5-5.1 CHLORIDE 107 98-107 CO2 27 22-29 CALCIUM 9.1 8.4-10.2 PROTEIN,TOTAL 6.8 6.0-8.3 ALBUMIN 4.0 3.5-5.2 BILIRUBIN, TOTAL 0.9 0.2-1.2 MAGNESIUM 2.0 1.6-2.6 ANION GAP 5 5-15 ALKALINE PHOSPHATASE 69 40-150 ALT/SGPT 16 <55 AST/SGOT 20 <34 CREAT EGFR(CKD-EPI) 78 >60 Feb 17, 2022 08:35 AM [facility] CBC & DIFF Specim en Type: BLOOD Comment: Automa rosalba Differential Performed Ordering Provid er: LILI GARCIA Report Released Date/Time: Oct 29, 2021 10:15 AM Reporting Lab: [facility] [address] Performing Lab: [facility] [address] WBC 5.24 4.0-11.0 RBC 4.37 L 4.6-6.2 [...] [place] 2021 08:49 /min mm[Hg] in lb IS [facility] Social History: Smoking Status (Most [...] 10:00 AM [place] US[place] [facility] Tobacco Use History This section includes a history of the smoking, or tobacco- related health factors, that were collected on or before the date of the Encounter. The data comes from the [place] facility where the Encounter took place. Date/Time Smoking Status/Tobacco Use Comment [facility] Oct 05, 2019 10:05 AM [place]-TOBACCO [place] USED [place] [facility] Oct 20, 2018 12:28 PM INPT NO TOBACCO USE IN LAST 30 DAYS [facility] Sep 15, 2018 01:[address] US[place] [facility] [...]
--- OUTSIDE RECORDS SUMMARY | 2022-06-06 12:02 | XMS_ITS | Encounter Summary ---
:1945 Author Organization Department [facility] Address [address] [place] [address] Support Name Relationship Address Phone Arti CORONEL Unavailable [address] [place] [address] ADITYA MALIN Unavailable [address] [place] [phone] Insurance Providers: All historical and current Section [...] MEDICARE MEDICARE PART May 15, PART A [id number] 800 HOMER HUNTER (WNR) (M) A 2008 94G [phone] ,ELLE MEDICARE MEDICARE PART May 15, PART B [id number] 800 HOMER HUNTER (WNR) (M) B 2008 94A [id number] ,ELLE Selected Encounter This section includes the information on record at [place] for the Encounter. Date/Time Encounter Type Encounter Description Reason Provider Source Feb 18, 2022 07:53 Outpatient Encounter CLINICAL PHARMACY AM IHE Encounter Template Text not used by [place] Plan of Treatment: Future Appointments (+ 6 months) and Future Tests (+/- 45 days) The Plan of Treatment section includes future care activities for the patient from all [place] treatmentfacilities. This section includes future appointments and future orders which are active, pending orscheduled.Future Appointments This section includes appointments that were scheduled to occur 6 months from the date of the Encounter, up to a maximum of 20 appointments. The data comes from all [place] treatment facilities. Appointment Date/Time Appointment Type Appointment Facili ty Name Mar 25, 2022 09:30 AM AMBULATORY - NONE [facility] Mar 25, 2022 10:30 AM AMBULATORY - MEDICINE [facility] CS Apr 04, 2022 08:30 AM AMBULATORY - MEDICINE [facility] Apr 22, 2022 08:30 AM AMBULATORY - NONE [facility] Apr 22, 2022 09:30 AM AMBULATORY - NONE [facility] Apr 22, 2022 09:45 AM AMBULATORY - NONE [facility] Apr 22, 2022 10:30 AM AMBULATORY - MEDICINE [facility] CS Apr 29, 2022 08:15 AM AMBULATORY - NONE [facility] May 05, 2022 08:30 AM AMBULATORY - SURGERY [facility] May 20, 2022 08:00 AM AMBULATORY - MEDICINE [facility] CS May 20, 2022 08:30 AM AMBULATORY - MEDICINE [facility] May 20, 2022 09:30 AM AMBULATORY - NONE [facility] May 20, 2022 10:30 AM AMBULATORY - MEDICINE [facility] May 23, 2022 02:45 PM AMBULATORY - SURGERY [facility] Jun 17, 2022 08:00 AM AMBULATORY - NONE [facility] Jun 17, 2022 09:00 AM AMBULATORY - MEDICINE [facility] CS Jun 17, 2022 09:30 AM AMBULATORY - MEDICINE [facility] Active, Pending, and Scheduled Orders This section includes a listing of several types of active, pending, and scheduled orders, including clinic medications orders, diagnostic test orders, procedure orders and consult orders; where the start date of the order is 45 days before the date of the Encounter or 45 days after the date of the Encounter. The data comes from all [place] treatment facilities. Test Date/Time Test Type Test Details Facility Name Mar 25, 2022 12:00 AM Laboratory - COMPREHENSIVE METABOLIC [place] [facility] Chemistry Order PANEL+MG PLASMA ONCO SP ONCE Mar 25, 2022 12:00 AM Laboratory - CBC & DIFF BLOOD SP [facility] Chemistry Order Lab Results: +/- 30 [...] Range Comment Feb 17, 2022 08:35 AM [facility] SEROTONIN Specim en Type: SERUM Comment: This t est was developed and its analytical performance characteristics have been determined by [employer] [facility]. It has not been cleared or approved by [facility]. This assay h as been validated pursuant to the CLIA regulations and is used for clinical purposes. Test performed by [employer] [facility] [address] [address] [place] [address] Phone: Tensioning Machine Operator: Felicia Rizzo MD,PHD,BERTHA Test Reported by [facility], [employer] [facility], [address] [place] [address] Truman Doan M.D., Ph.D., Director of Laboratories , CLIA [id number] Ordering Provid er: LILI GARCIA Report Released Date/Time: Oct 29, 2021 10:15 AM Reporting Lab: [facility] [address] [facility] [place] [address] [facility] [address] Performing Lab: [address] [place] 1441 H 56-244 Feb 17, 2022 08:35 [facility] CHROMOGRANIN A([place]) Spec imen Type: SERUM AM No comment enter ed. Ordering Provid er: LILI GARCIA Report Released Date/Time: Oct 29, 2021 10:15 AM Reporting Lab: [facility] [address] [facility] [address] Performing Lab: [facility] [address] [facility] [address] CHROMOGRANIN A(ROSE) 65 <92 Feb 17, 2022 [facility] COMPREHENSIVE METABOLIC Spec imen Type: PLASMA 08:35 AM PANEL+MG No comment enter ed. Ordering Provid er: LILI GARCIA Report Released Date/Time: Oct 29, 2021 10:15 AM Reporting Lab: [facility] [address] [facility] [address] Performing Lab: [facility] [address] CREATININE 1.0 0.7-1.2 UREA NITROGEN 14 8-26 GLUCOSE 112 H 74-100 SODIUM 139 136-145 POTASSIUM 4.1 3.5-5.1 CHLORIDE 107 98-107 CO2 27 22-29 CALCIUM 9.1 8.4-10.2 PROTEIN,TOTAL 6.8 6.0-8.3 ALBUMIN 4.0 3.5-5.2 BILIRUBIN, TOTAL 0.9 0.2-1.2 MAGNESIUM 2.0 1.6-2.6 ANION GAP 5 5-15 ALKALINE PHOSPHATASE 69 40-150 ALT/SGPT 16 <55 AST/SGOT 20 <34 CREAT EGFR(CKD-EPI) 78 >60 Feb 17, 2022 08:35 AM [facility] CBC & DIFF Specim en Type: BLOOD Comment: Automa rosalba Differential Performed Ordering Provid er: LILI GARCIA Report Released Date/Time: Oct 29, 2021 10:15 AM Reporting Lab: [facility] [address] Performing Lab: [facility] [address] WBC 5.24 4.0-11.0 RBC 4.37 L 4.6-6.2 [...] smoking and tobacco-related health factors from the [place] facility where the Encounter took place.Current Smoking Status This section includes the most current smoking, or tobacco-related health factor, from the [place] facility where the Encounter took place. Date/Time Current Smoking Status Comment Facility May 15, 2021 10:00 AM [place]-TOBACCO NEVER USED [facility] Tobacco Use History This section includes a history of the smoking, or tobacco- related health factors, that were collected on or before the date of the Encounter. The data comes from the [place] facility where the Encounter took place. Date/Time Smoking Status/Tobacco Use Comment [facility] Oct 05, 2019 10:05 AM [place]-TO[place]CO NEVER USED [place] [facility] Oct 20, 2018 12:28 PM INPT NO TOBACCO USE IN LAST 30 DAYS [facility] Sep 15, 2018 01:21 PM [place]-TOBACCO NEVER USED [place] [facility] Aug 11, 2017 08:54 AM LIFETIME NON-TOBACCO USER [facility] Jul 08, 2016 08:07 AM LIFETIME NON-TOBACCO USER [facility] May 09, 2015 02:31 PM LIFETIME NON-TOBACCO USER [facility] Apr 14, 2014 08:41 AM LIFETIME NON-TOBACCO USER [facility] Jan 06, 2007 08:51 AM LIFETIME NON-TOBACCO USER [facility] Encounter Notes: All associated encounter notes This section contains the clinical notes associated to the Encounter. Date/Time Encounter Note(s) Provider Source Feb 18, 2022 07:53 AM [facility] LOC[facility] TITLE: ANTICOAG ENTRY OF OUTSIDE LABS STANDARD TITLE: PHARMACY NOTE DATE OF NOTE: FEB 18, 2022@07:53 ENTRY DATE: FEB 18, 2022@07:53:07 AUTHOR: HANNA YOU EXP COSIGNER: URGENCY: STATUS: COMPLETED INR: Date: February 17, 2022 Results: 2.19 Location: [facility] Lab /es/ HANNA YOU [employer]ICAL [employer]PPORT ASSISTAT Signed: 02/18/2022 07:54 Receipt Acknowledged By: * AWAITING SIGNATURE * SRI BURNS
--- OUTSIDE RECORDS SUMMARY | 2022-06-06 12:03 | XMS_ITS | Encounter Summary ---
:1945 Author Organization Department [facility] rs Address [address] [place] [id number] Support Name Relationship Address Phone Arti CORONEL Unavailable [address] [facility] [place] [address] ADITYA MALIN Unavailable [address] [phone] [place] [id number] Insurance Providers: All historical and current Section [...] MEDICARE MEDICARE PART May 15, PART A [id number] 800 HOMER HUNTER (WNR) (M) A 2008 [id number] [phone] ,ELLE MEDICARE MEDICARE PART May 15, PART B [id number] 800 HOMER HUNTER (WNR) (M) B 2008 [id number] ,ELLE Selected Encounter This section includes the information on record at [place] for the Encounter. Date/Time Encounter Type Encounter Reason Provider Source Description Mar 21, 2022 QNHP OL DIG TELEPHONE/MEDICIN ICD-10-CM Z51.81 CHARLIE LY 12:19 PM ASSMT&MGMT 5-10 E Encounter for JEREMIE therapeutic drug level monitoring with Provider Comments: Encounter For Therapeutic Drug Level Monitoring (ICD-10-CM Z51.81) IHE Encounter Template Text not used by [place] Assessments - Encounter Diagnoses This section includes the primary and secondary diagnoses documented for the Encounter. 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 This section includes future appointments and future orders which are active, pending orscheduled.Future Appointments This section includes appointments that were scheduled to occur 6 months from the date of the Encounter, up to a maximum of 20 appointments. The data comes from all [place] treatment facilities. Appointment Date/Time Appointment Type Appointment Facili ty Name Mar 25, 2022 09:30 AM AMBULATORY - NONE [facility] Mar 25, 2022 10:30 AM AMBULATORY - MEDICINE [facility] Apr 04, 2022 08:30 AM AMBULATORY - MEDICINE [facility] Apr 22, 2022 08:30 AM AMBULATORY - NONE [facility] Apr 22, 2022 09:30 AM AMBULATORY - NONE [facility] Apr 22, 2022 09:45 AM AMBULATORY - NONE [facility] Apr 22, 2022 10:30 AM AMBULATORY - MEDICINE [facility] Apr 29, 2022 08:15 AM AMBULATORY - NONE [facility] May 05, 2022 08:30 AM AMBULATORY - SURGERY [facility] May 20, 2022 08:00 AM AMBULATORY - MEDICINE [facility] May 20, 2022 08:30 AM AMBULATORY - MEDICINE [facility] May 20, 2022 09:30 AM AMBULATORY - NONE [facility] May 20, 2022 10:30 AM AMBULATORY - MEDICINE [facility] May 23, 2022 02:45 PM AMBULATORY - SURGERY [facility] Jun 17, 2022 08:00 AM AMBULATORY - NONE [facility] Jun 17, 2022 09:00 AM AMBULATORY - MEDICINE [facility] Jun 17, 2022 09:30 AM AMBULATORY - MEDICINE [facility] Active, Pending, and Scheduled Orders This section includes a listing of several types of active, pending, and scheduled orders, including clinic medications orders, diagnostic test orders, procedure orders and consult orders; where the start date of the order is 45 days before the date of the Encounter or 45 days after the date of the Encounter. The data comes from all [place] treatment facilities. Test Date/Time Test Type Test Details Facility Name Mar 25, 2022 12:00 AM Laboratory - [facility] Chemistry Order PANEL+MG PLASMA ONCO SP ONCE Mar 25, 2022 12:00 AM Laboratory - CBC & DIFF BLOOD [place] [facility] [place] [facility] Chemistry Order Social History: Smoking Status (Most current) and Tobacco Use (All prior to encounter date) This section includes the most current, and the historical, smoking and tobacco-related health factors from the [place] facility where the Encounter took place.Current Smoking Status This section includes the most current smoking, or tobacco-related health factor, from the [place] facility where the Encounter took place. Date/Time Current Smoking Status Comment Facility May 15, 2021 10:00 AM [place]-TOBACCO NEVER USED [facility] Tobacco Use History This section includes a history of the smoking, or tobacco- related health factors, that were collected on or before the date of the Encounter. The data comes from the [place] facility where the Encounter took place. Date/Time Smoking Status/Tobacco Use Comment [facility] Oct 05, 2019 10:05 AM [place] Oct 20, 2018 12:28 PM INPT NO TOBACCO USE IN LAST [address] [facility] Sep 15, 2018 01:21 PM [place]-TOBACCO NEVER USED [place] [facility] Aug 11, 2017 08:54 [...] USER [facility] Encounter Notes: All associated encounter notes This section contains the clinical notes associated to the Encounter. Date/Time Encounter Note(s) Provider Source Mar 21, 2022 12:20 PM PHARMACY OUTPATIENT MEDICATION MGT NOT E: LISETTE LY [facility] LOCAL TITLE: PHARMACY ANTICOAGULATION CLINIC F/ U STANDARD TITLE: PHARMACY OUTPATIENT MEDICATION M GT NOTE DATE OF NOTE: MAR 21, 2022@12:20:08 ENTRY DATE: MAR 21, 2022@12:20:08 AUTHOR: LISETTE LY EXP COSIGNER: URGENCY: STATUS: COMPLETED Indication: Afib [...] home phone. Care Coordination: - Local Lab: [facility] Direct P: [phone]; F: [phone] , F: [phone] *New CITC SO sent 06/13/21 *[facility] labs valid: 03/27/21-09/23/21, new consult placed 06/13/21 SUBJECTIVE/OBJECTIVE: Assessment completed as chart review; pt was not interviewed. Warfarin dose: 7.5mg TuTh & 5mg all other days ( 40mg/wk); AM Collection DT *INR mg in last 7 days 03/20/2022 local 2.05 40 letter 02/18/2022 local 2.19 40 letter 01/21/2022 local 2.1 40 01/07/2022 local 1.62 40 12/10/2021 local 2.25 40 letter 11/26/2021 09:07 BLOOD 1.8 40 letter + VM 10/29/2021 09:12 PLASM 2.2 40 letter 10/15/2021 local 2.0 40 letter + VM 09/17/2021 local 2.04 40 letter Other Recent Labs Collection DT Spec WBC HGB HCT PLT MCV NEUT LYMP HS 02/17/2022 08:35 BLOOD 5.24 14.6 43.5 202 99.5 5 9.3 24.4 10/29/2021 09:12 BLOOD 6.12 14.1 42.1 188 100.0 66.3 16.8 05/28/2021 09:15 BLOOD 4.25 14.2 41.6 216 99.3 5 6.1 25.4 02/28/2021 08:30 BLOOD 4.08 13.5 40.9 L 191 100. 0 52.5 28.4 ASSESSMENT/PLAN: Therapeutic INR - Warfarin dose: CONTINUE 7.5mg TuTh & 5mg all other days (40mg/wk) - Next INR: 04/22/22 at [facility] 9:30 w/other labs (u local lab) - Rx assessed - Letter sent Time Spent: 10 min /mustapha/ Lisette Ly, Pharm.D. Clinical Helpdesk Manager Signed: 03/21/2022 12:25
--- OUTSIDE RECORDS SUMMARY | 2022-06-06 12:03 | XMS_ITS | Encounter Summary ---
:1945 Author Organization Department [facility] Address [address] [place] [address] Support Name Relationship Address Phone Arti CORONEL Unavailable [address] [place] [address] ADITYA MALIN Unavailable [address] [place] [id number] Insurance Providers: All historical and current Section [...] MEDICARE MEDICARE PART May 15, PART A [id number] 800 HOMER HUNTER (WNR) (M) A 2008 94M [phone] ,ELLE MEDICARE MEDICARE PART May 15, PART B [id number] 800 HOMER HUNTER (WNR) (M) B 2008 [id number] ,ELLE Selected Encounter This section includes the information on record at [place] for the Encounter. Date/Time Encounter Type Encounter Description Reason Provider Source Mar 21, 2022 01:22 Outpatient Encounter CLINICAL PHARMACY PM IHE Encounter [...] 25, 2022 09:30 AM AMBULATORY - NONE [facility] Mar 25, 2022 10:30 AM AMBULATORY - MEDICINE [facility] Apr 04, 2022 08:30 AM AMBULATORY - MEDICINE [facility] Apr 22, 2022 08:30 AM AMBULATORY - NONE [facility] Apr 22, 2022 09:30 AM AMBULATORY - NONE [facility] Apr 22, 2022 09:45 AM AMBULATORY - NONE [facility] Apr 22, 2022 10:30 AM AMBULATORY - MEDICINE [facility] Apr 29, 2022 08:15 AM AMBULATORY - NONE [facility] May 05, 2022 08:30 AM AMBULATORY - SURGERY [facility] May 20, 2022 08:00 AM AMBULATORY - MEDICINE [facility] May 20, 2022 08:30 AM AMBULATORY - MEDICINE [facility] May 20, 2022 09:30 AM AMBULATORY - NONE [facility] May 20, 2022 10:30 AM AMBULATORY - MEDICINE [facility] May 23, 2022 02:45 PM AMBULATORY - SURGERY [facility] Jun 17, 2022 08:00 AM AMBULATORY - NONE [facility] Jun 17, 2022 09:00 AM AMBULATORY - MEDICINE [facility] Jun 17, 2022 09:30 AM AMBULATORY - MEDICINE [facility] Active, Pending, and Scheduled Orders This section includes a listing of several types of active, pending, and scheduled orders, including clinic medications orders, diagnostic test orders, procedure orders and consult orders; where the start date of the order is 45 days before the date of the Encounter or 45 days after the date of the Encounter. The data comes from all [place] treatment facilities. Test Date/Time Test Type Test Details Facility Name Mar 25, 2022 12:00 AM Laboratory - COM[facility]IVE [facility] Chemistry Order PANEL+MG PLASMA ONCO SP ONCE Mar 25, 2022 12:00 AM Laboratory - CBC & DIFF BLOOD SP [place] [facility] Chemistry Order Social History: Smoking Status (Most [...] 10:00 AM [place]-TOBACCO NEVER USED [place] [facility] Tobacco Use History This section includes a history of the smoking, or tobacco- related health factors, that were collected on or before the date of the Encounter. The data comes from the [place] facility where the Encounter took place. Date/Time Smoking Status/Tobacco Use Comment [facility] Oct 05, 2019 10:05 AM [place]-TOBACCO NEVER USED [place] [facility] Oct 20, 2018 12:28 PM INPT NO TOBACCO USE IN LAST 30 DAYS [facility] Sep 15, 2018 01:21 PM VA-TOBACCO NEVER USED [place] [facility] Aug 11, 2017 08:54 AM LIFETIME NON-TOBACCO USER [facility] Jul 08, 2016 08:07 AM LIFETIME NON-TOBACCO USER [facility] May 09, 2015 02:31 PM LIFETIME NON-TOBACCO USER [facility] Apr 14, 2014 08:41 AM LIFETIME NON-TOBACCO USER [facility] Jan 06, 2007 08:51 AM LIFETIME NON-TOBACCO USER [facility] Encounter Notes: All associated encounter notes This section contains the clinical notes associated to the Encounter. 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
--- OUTSIDE RECORDS SUMMARY | 2022-06-06 12:04 | XMS_ITS | Encounter Summary ---
:1945 Author Organization Department [facility] rs Address [address] [place] [id number] Support Name Relationship Address Phone Arti CORONEL Unavailable [address] [place] [address] ADITYA MALIN Unavailable [address] [place] [id number] Insurance Providers: All historical and current Section [...] MEDICARE MEDICARE PART May 15, PART A [id number] 800 HOMER HUNTER (WNR) (M) A 2008 94A [phone] ,ELLE MEDICARE MEDICARE PART May 15, PART B [id number] 800 HOMER HUNTER (WNR) (M) B 2008 94A [id number] ,ELLE Selected Encounter This section includes the information on record at [place] for the Encounter. 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 This section includes future appointments and future orders which are active, pending orscheduled.Future Appointments This section includes appointments that were scheduled to occur 6 months from the date of the Encounter, up to a maximum of 20 appointments. The data comes from all [place] treatment facilities. Appointment Date/Time Appointment Type Appointment Facili ty Name Apr 04, 2022 08:30 AM AMBULATORY - MEDICINE [facility] CS Apr 22, 2022 08:30 AM AMBULATORY - NONE [facility] Apr 22, 2022 09:30 AM AMBULATORY - NONE [facility] Apr 22, 2022 09:45 AM AMBULATORY - NONE [facility] Apr 22, 2022 10:30 AM AMBULATORY - MEDICINE [facility] CS Apr 29, 2022 08:15 AM AMBULATORY - NONE [facility] May 05, 2022 08:30 AM AMBULATORY - SURGERY [facility] S May 20, 2022 08:00 AM AMBULATORY - MEDICINE [facility] CS May 20, 2022 08:30 AM AMBULATORY - MEDICINE [facility] CS May 20, 2022 09:30 AM AMBULATORY - NONE [facility] May 20, 2022 10:30 AM AMBULATORY - MEDICINE [facility] CS May 23, 2022 02:45 PM AMBULATORY - SURGERY [facility] S Jun 17, 2022 08:00 AM AMBULATORY - NONE [facility] Jun 17, 2022 09:00 AM AMBULATORY - MEDICINE [facility] Jun 17, 2022 09:30 AM AMBULATORY - MEDICINE [facility] Active, Pending, and Scheduled Orders This section includes a listing of several types of active, pending, and scheduled orders, including clinic medications orders, diagnostic test orders, procedure orders and consult orders; where the start date of the order is 45 days before the date of the Encounter or 45 days after the date of the Encounter. The data comes from all [place] treatment facilities. Test Date/Time Test Type Test Details Facility Name Mar 25, 2022 12:00 AM Laboratory - COMPREHENSIVE METABOLIC [facility] Chemistry Order PANEL+MG PLASMA ONCO SP ONCE Mar 25, 2022 12:00 AM Laboratory - CBC & DIFF BLOOD SP [facility] Chemistry Order Lab Results: +/- 30 days of the encounter This section includes the Chemistry and Hematology Lab Results on record with [place] for the patient. Radiology Reports and Pathology Reports are provided separately, in subsequent sections.Lab Results This section contains the Chemistry/Hematology Results that were resulted 30 days before or 30 daysafter the date of the Encounter. Date/Time Source Result Type Result - Unit Interpretation Reference Range Comment Apr 22, 2022 10:28 [facility] PT/INR(ANTICOAG) Specimen Type: PLASMA AM No comment enter ed. Ordering Provid er: LISETTE LY Report Released Date/Time: Mar 21, 2022 12:27 PM Reporting Lab: [facility] [address] [facility] [id number] Performing Lab: [facility] [address] [facility] [id number] .INR 2.0 H 0.8-1.1 .PT 22.7 H 9.4-12.5 Apr 22, 2022 10:27 AM [facility] PSA Specim en Type: SERUM No comment enter ed. Ordering Provid er: CLAYTON ROLLE Report Released Date/Time: Apr 04, 2022 09:04 AM Reporting Lab: [facility] [address] [facility] [id number] Performing Lab: [facility] [address] [facility] [id number] PSA 0.01 <4.00 Apr 22, 2022 10:27 [facility] HEMOGLOBIN A1C Specimen Type: BLOOD AM No comment enter ed. Ordering Provid er: CLAYTON ROLLE Report Released Date/Time: Apr 04, 2022 09:04 AM Reporting Lab: [facility] [address] [facility] [id number] Performing Lab: [facility] [address] [facility] [id number] HEMOGLOBIN A1C 6.1 H 4.0-6.0 Apr 22, 2022 [facility] LIPID PANEL,NON-FASTING Spec imen Type: PLASMA 10:27 AM No comment enter ed. Ordering Provid er: CLAYTON ROLLE Report Released Date/Time: Apr 04, 2022 09:04 AM Reporting Lab: [facility] [address] [facility] [address] Performing Lab: [facility] [address] [facility] [address] CHOLESTEROL 194 <199 .HDL 55 >40 LDL CALCULATION 112 H <99 VLDL CALCULATION 27 <29 NON HDL CHOLESTEROL 139 H <129 TRIG(NON FASTING) 136 <149 Apr 22, 2022 [facility] COMPREHENSIVE METABOLIC Spec imen Type: PLASMA 10:27 AM PANEL+MG No comment enter ed. Ordering Provid er: LILI GARCIA Report Released Date/Time: Feb 17, 2022 11:17 AM Reporting [facility] [address] Performing Lab: [facility] [phone] CREATININE 1.0 0.7-1.2 UREA NITROGEN 17 8-26 GLUCOSE 96 74-100 SODIUM 139 136-145 POTASSIUM 4.1 3.5-5.1 CHLORIDE 108 H 98-107 CO2 26 22-29 CALCIUM 9.4 8.4-10.2 PROTEIN,TOTAL 6.9 6.0-8.3 ALBUMIN 3.9 3.5-5.2 BILIRUBIN, TOTAL 0.8 0.2-1.2 MAGNESIUM 2.0 1.6-2.6 ANION GAP 5 5-15 ALKALINE PHOSPHATASE 68 40-150 ALT/SGPT 15 <55 AST/SGOT 22 <34 CREAT EGFR(CKD-EPI) 78 >60 Apr 22, 2022 10:27 AM [facility] CBC & DIFF Specim en Type: BLOOD Comment: Automa rosalba Differential Performed Ordering Provid er: LILI GARCIA Report Released Date/Time: Feb 17, 2022 11:17 AM Reporting Lab: [facility] [id number] Performing Lab: [facility] [id number] WBC 4.55 4.0-11.0 RBC 4.32 L 4.6-6.2 HGB 14.5 13.5-17.9 HCT 43.0 41-54 MCV 99.5 80-100 MCH 33.6 H 27-33 MCHC 33.7 32.0-37.5 PLT 211 150-400 MPV 10.0 7.4-10.4 NEUT 52.6 LYMPHS 26.8 MONO 15.6 EOSINO 4.4 BASO 0.4 RDW 12.1 11.5-14.5 ABS LYMPH 1.22 1.0-4.0 ABS MONO 0.71 0.1-1.0 ABS NEUT 2.39 2.0-7.7 ABS EOS 0.20 0-0.5 ABS BASO 0.02 0-0.2 IG(META,MYELO,PRO) 0.2 ABS IMMATURE GRAN 0.01 0-0.1 Social History: Smoking Status (Most current) and Tobacco Use (All prior to encounter date) This section includes the most current, and the historical, smoking and tobacco-related health factors from the [place] facility where the Encounter took place.Current Smoking Status This section includes the most current smoking, or tobacco-related health factor, from the [place] facility where the Encounter took place. Date/Time Current Smoking Status Comment Facility May 15, 2021 10:00 AM [place]-TOBACCO NEVER USED [employer] [facility] Tobacco Use History This section includes a history of the smoking, or tobacco- related health factors, that were collected on or before the date of the Encounter. The data comes from the [facility] where the Encounter took place. Date/Time Smoking Status/Tobacco Use Comment [facility] Oct 05, 2019 10:05 AM [place]-TOBACCO NEVER USED [place] [facility] Oct 20, 2018 12:28 PM INPT NO TOBACCO USE IN LAST 30 DAYS [facility] Sep 15, 2018 01:21 PM [place]-TOBACCO NEVER USED [place] [facility] Aug 11, 2017 08:54 AM LIFETIME NON-TOBACCO USER [facility] Jul 08, 2016 08:07 AM LIFETIME NON-TOBACCO USER [facility] May 09, 2015 02:31 PM LIFETIME NON-TOBACCO USER [facility] Apr 14, 2014 08:41 AM LIFETIME NON-TOBACCO USER [facility] Jan 06, 2007 08:51 AM LIFETIME NON-TOBACCO USER [facility] Radiology Reports: +/- 30 days of the encounter Radiology Reports For cases when an order for radiology services may have been completed prior to the date of the Encounter, the report list includes the Radiology Reports that were completed up to 30 days before date of the Encounter. For cases when an order for radiology services may have been completed after the date of the Encounter, the report list also includes the Radiology Reports that were completed up to 30days after date of the Encounter. The data comes from all [place] treatment facilities. Date/Time Radiology Report Provider Source Apr 22, 2022 09:24 AM FOOT RIGHT 3 VIEWS OR MORE: TIMBO CONTRERAS [facility] ELLE CORONEL [id number] [birth year] M Exm Date: APR 22, 2022@09:24 Req Phys: RAMPYUEREITERRUEL Pat Loc: MSP P OD RAMPETSREITER CONSULT Img Loc: MAIN X-RAY Service: Unknown (Case [id number] COMPLETE) FOOT RIGHT 3 VIEWS OR MORE ( RAD Detailed) CPT:01388 Proc Modifiers : RIGHT, WEIGHT BEARING Reason for Study: Pain Clinical History: [place] IS NOT under investigation for COVID-19 or is COVID-19 negative Posterior heel pain. Responsible provider name and phone number to notify for critical findings if other than user placing the order and pager listed below: User placing orders pager: [phone] LAST CREATININE 1.0 (02/17/22) Report Status: Verified Date Reported: APR 22, 2022 Date Verified: APR 22, 2022 Machine Rigger E-Sig:/ES/TIMBO CONTRERAS DO Report: EXAMINATION: FOOT RIGHT 3 VIEWS OR MORE 9:24 AM INDICATION: Posterior heel pain COMPARISON: No comparison Impression: No acute fracture. No dislocation. Lisfranc zelda nt is intact. No suspicious bone lesion. Mild degenerative ch zac at the first MTP joint. Narrowing of multiple interphalangea l joints. Possible hammertoe deformities. Plantar calcaneal enthes ophyte noted. Large posterior calcaneal enthesophyte/bulky ca lcification in the distal Achilles tendon as well as Flor defor mity. There is atherosclerotic calcification. Primary Interpreting Staff: TIMBO CONTRERAS DO, RADIOLOGIST (Machine Rigger) /DDS Encounter Notes: All associated encounter notes This section contains the clinical notes associated to the Encounter. 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 Starr [phone] Allergies: DIAL SOAP (Mar 25, 2007) NAPROXEN (February 05, 2011) Patient identity and drugs dispensed verified by : Dinesh Non chemo procedures SQ/IM Medication: Octreotide LAR IM Dosage: 20mg Site: Left gluteal muscle Time: 1030 Patient Response/Status: Patient stated, I'm feeling good today. Pt received Octreotide intramuscular injection given into le ft upper gluteal muscle and applied gauze/bandaid over site. Pt tolerated in jection without problems. Pt left clinic ambulatory. DISCHARGED TO: Home at 1032. /es/ GORDO ARGUETA, RN, BSN, OCN STAFF NURSE Signed: 03/25/2022 10:47
--- OUTSIDE RECORDS SUMMARY | 2022-06-06 12:04 | XMS_ITS | Encounter Summary ---
:1945 Author Organization Department of [facility] rs Address [address] [place] [id number] Support Name Relationship Address Phone Arti CORONEL Unavailable [address] [place] [address] ADITYA MALIN Unavailable [address] [phone] [place] [phone] Insurance Providers: All historical and current Section [...] MEDICARE MEDICARE PART May 15, PART A [id number] 800 HOMER HUNTER (WNR) (M) A 2008 94A [phone] ,ELLE MEDICARE MEDICARE PART May 15, PART B [id number] 800 HOMER DEL VALLEIENT (WNR) (M) B 2008 94A [phone] ,ELLE Selected Encounter This section includes the information on record at [place] for the Encounter. Date/Time Encounter Type Encounter Description Reason Provider Source Mar 20, 2022 12:00 Outpatient Encounter EVENT (HISTORICAL) AM IHE Encounter Template Text not used by [place] Plan of Treatment: Future Appointments (+ 6 [...] 25, 2022 10:30 AM AMBULATORY - MEDICINE [facility] CS Apr 04, 2022 08:30 AM [facility]ICINE [facility] Apr 22, 2022 08:30 AM AMBULATORY - NONE [facility] Apr 22, 2022 09:30 AM AMBULATORY - NONE [facility] Apr 22, 2022 09:45 AM AMBULATORY - NONE [facility] Apr 22, 2022 10:30 AM [facility] Apr 29, 2022 08:15 AM AMBULATORY - NONE [facility] May 05, 2022 08:30 AM AMBULATORY - SURGERY [facility] S May 20, 2022 08:00 AM AMBULATORY - MEDICINE [facility] CS May 20, 2022 08:30 AM AMBULATORY - MEDICINE [facility] CS May 20, 2022 09:30 AM AMBULATORY - NONE [facility] May 20, 2022 10:30 AM AMBULATORY - MEDICINE [facility] CS May 23, 2022 02:45 PM AMBULATORY - SURGERY [facility] S Jun 17, 2022 08:00 AM AMBULATORY - NONE [facility] Jun 17, 2022 09:00 AM AMBULATORY - MEDICINE [facility] CS Jun 17, 2022 09:30 AM AMBULATORY - MEDICINE [facility] Active, Pending, and Scheduled Orders This section includes a listing of several types of active, pending, and scheduled orders, including clinic medications orders, diagnostic test orders, procedure orders and consult orders; where the start date of the order is 45 days before the date of the Encounter or 45 days after the date of the Encounter. The data comes from all [place] treatment [facility]. Test Date/Time Test Type Test Details Facility Name Mar 25, 2022 12:00 AM Laboratory - COMPREHENSIVE METABOLIC [place] [facility] Chemistry Order PANEL+MG PLASMA ONCO SP ONCE Mar 25, 2022 12:00 AM Laboratory - CBC & DIFF BLOOD SP [place] [facility] Chemistry Order Social History: Smoking Status (Most current) and Tobacco Use (All prior to encounter date) This section includes the most current, and the historical, smoking and tobacco-related health factors from the [facility] facility where the Encounter took place.Current Smoking Status This section includes the most current smoking, or tobacco-related health factor, from the [place] facility where the Encounter took place. Date/Time Current Smoking Status Comment Facility May 15, 2021 10:00 AM [place]-TOBACCO NEVER USED [place] [facility] Tobacco Use History This section includes a history of the smoking, or tobacco- related health factors, that were collected on or before the date of the Encounter. The data comes from the [place] facility where the Encounter took place. Date/Time Smoking Status/Tobacco Use Comment [facility] Oct 05, 2019 10:05 AM [place]-TOBACCO NEVER [...]
--- OUTSIDE RECORDS SUMMARY | 2022-06-06 12:04 | XMS_ITS | Encounter Summary ---
:1945 Author Organization Department [facility] Address [address] [place] [id number] Support Name Relationship Address Phone Arti CORONEL Unavailable [address] [place] [address] ADITYA MALIN Unavailable [address] SHAWANDA [phone] [place] [id number] Insurance Providers: All historical and current Section [...] MEDICARE MEDICARE PART May 15, PART B [id number] 800 HOMER HUNTER (WNR) (M) B 2008 [id number] [phone] ,ELLE MEDICARE MEDICARE PART May 15, PART A [id number] 800 HOMER HUNTER (WNR) (M) A 2008 94A [phone] ,ELLE Selected Encounter This section includes the information on record at [place] for the Encounter. Date/Time Encounter Type Encounter Reason Provider Source Description Apr 02, 2022 HC PRO PHONE TELEPHONE TRIAGE ICD-10-CM Z71.89 Shahnaz KRAMER 10:12 AM CALL 5-10 MIN Other specified A counseling with Provider Comments: Other specified counseling IHE Encounter Template Text not used by [place] Assessments - Encounter Diagnoses This section includes the primary and secondary diagnoses documented for the Encounter. Date/Time Primary/Secondary Diagnosis Name Provider Source Diagnosis Apr 02, 2022 PRIMARY Other specified MELBA KRAMER [place] 10:12 AM counseling A [facility] Plan of Treatment: Future Appointments (+ 6 months) and Future Tests (+/- 45 days) The Plan of Treatment section includes future care activities for the patient from all [place] [facility]. This section includes future appointments and future orders which are active, pending orscheduled.Future Appointments This section includes appointments that were scheduled to occur 6 months from the date of the Encounter, up to a maximum of 20 appointments. The data comes from all [place] treatment [facility]. Appointment Date/Time Appointment Type Appointment Facili ty Name Apr 04, 2022 08:30 AM AMBULATORY - MEDICINE [facility] Apr 22, 2022 08:30 AM AMBULATORY - NONE [facility] Apr 22, 2022 09:30 AM AMBULATORY - NONE [facility] Apr 22, 2022 09:45 AM AMBULATORY - NONE [facility] Apr 22, 2022 10:30 AM AMBULATORY - MEDICINE [facility] Apr 29, 2022 08:15 AM AMBULATORY - NONE [facility] May 05, 2022 08:30 AM AMBULATORY - SURGERY [facility] May 20, 2022 08:00 AM AMBULATORY - MEDICINE [facility] May 20, 2022 08:30 AM AMBULATORY - MEDICINE [facility] May 20, 2022 09:30 AM AMBULATORY - NONE [facility] May 20, 2022 10:30 AM AMBULATORY - MEDICINE [facility] CS May 23, 2022 02:45 PM AMBULATORY - SURGERY [facility] Jun 17, 2022 08:00 AM AMBULATORY - NONE [facility] Jun 17, 2022 09:00 AM AMBULATORY - MEDICINE [facility] Jun 17, 2022 09:30 AM AMBULATORY - MEDICINE [facility] Active, Pending, and Scheduled Orders This section includes a listing of several types of active, pending, and scheduled orders, including clinic medications orders, diagnostic test orders, procedure orders and consult orders; where the start date of the order is 45 days before the date of the Encounter or 45 days after the date of the Encounter. The data comes from all [place] treatment [facility]. Test Date/Time Test Type Test Details Facility Name Mar 25, 2022 12:00 AM Laboratory - COMPREHENSIVE METABOLIC [place] [facility] Chemistry Order PANEL+MG PLASMA ONCO SP ONCE Mar 25, 2022 12:00 AM Laboratory - CBC & DIFF BLOOD SP [facility] Chemistry Order Lab Results: +/- 30 [...] Reference Range Comment Apr 22, 2022 10:28 [facility] PT/INR(ANTICOAG) Specimen Type: PLASMA AM No comment enter ed. Ordering Provid er: LISETTE LY Report Released Date/Time: Mar 21, 2022 12:27 PM Reporting Lab: [facility] [address] [facility] [address] Performing Lab: [facility] [address] [facility] [address] .INR 2.0 H 0.8-1.1 .PT 22.7 H 9.4-12.5 Apr 22, 2022 10:27 AM [facility] PSA Specim en Type: SERUM No comment enter ed. Ordering Provid er: CLAYTON ROLLE Report Released Date/Time: Apr 04, 2022 09:04 AM Reporting Lab: [facility] [address] [facility] [address] Performing Lab: [facility] [address] [facility] [address] PSA 0.01 <4.00 Apr 22, 2022 10:27 [facility] HEMOGLOBIN A1C Specimen Type: BLOOD AM No comment enter ed. Ordering Provid er: CLAYTON ROLLE Report Released Date/Time: Apr 04, 2022 09:04 AM Reporting Lab: [facility] [address] [facility] [address] Performing Lab: [facility] [address] [facility] [address] HEMOGLOBIN A1C 6.1 H 4.0-6.0 Apr 22, 2022 [facility] LIPID PANEL,NON-FASTING Spec imen Type: PLASMA 10:27 AM No comment enter ed. Ordering Provid er: CLAYTON ROLLE Report Released Date/Time: Apr 04, 2022 09:04 AM Reporting Lab: [facility] [address] [facility] [address] Performing Lab: [facility] [address] [facility] [address] CHOLESTEROL 194 <199 .HDL 55 >40 LDL CALCULATION 112 H <99 VLDL CALCULATION 27 <29 NON HDL CHOLESTEROL 139 H <129 TRIG(NON FASTING) 136 <149 Apr 22, 2022 [facility] COMPREHENSIVE METABOLIC Spec imen Type: PLASMA 10:27 AM PANEL+MG No comment enter ed. Ordering Provid er: LILI GARCIA Report Released Date/Time: Feb 17, 2022 11:17 AM Reporting Lab: [facility] [address] Performing Lab: [facility] [address] CREATININE 1.0 0.7-1.2 UREA NITROGEN 17 8-26 GLUCOSE 96 74-100 SODIUM 139 136-145 POTASSIUM 4.1 3.5-5.1 CHLORIDE 108 H 98-107 CO2 26 22-29 CALCIUM 9.4 8.4-10.2 PROTEIN,TOTAL 6.9 6.0-8.3 ALBUMIN 3.9 3.5-5.2 BILIRUBIN, TOTAL 0.8 0.2-1.2 MAGNESIUM 2.0 1.6-2.6 ANION GAP 5 5-15 ALKALINE PHOSPHATASE 68 40-150 ALT/SGPT 15 <55 AST/SGOT 22 <34 CREAT EGFR(CKD-EPI) 78 >60 Apr 22, 2022 10:27 AM [facility] CBC & DIFF Specim en Type: BLOOD Comment: Automa rosalba Differential Performed Ordering Provid er: LILI GARCIA Report Released Date/Time: Feb 17, 2022 11:17 AM Reporting Lab: [facility] [id number] Performing Lab: [facility] [address] WBC 4.55 4.0-11.0 RBC 4.32 L 4.6-6.2 [...] 15, 2021 10:00 AM VA-TOBACCO NEVER USED [employer] [facility] Tobacco Use History This section includes a history of the smoking, or tobacco- related health factors, that were collected on or before the date of the Encounter. The data comes from the [facility] where the Encounter took place. Date/Time Smoking Status/Tobacco Use Comment [facility] Oct 05, 2019 10:05 AM VA-TOBACCO NEVER USED [place] [facility] Oct 20, 2018 12:28 PM INPT NO TOBACCO USE IN LAST 30 DAYS [facility] Sep 15, 2018 01:21 PM VA-TOBACCO NEVER USED [place] [facility] Aug 11, 2017 08:54 AM LIFETIME NON-TOBACCO USER [facility] Jul 08, 2016 08:07 AM LIFETIME NON-TOBACCO USER [facility] May 09, 2015 02:31 PM LIFETIME NON-TOBACCO USER [facility] Apr 14, 2014 08:41 AM LIFETIME NON-TOBACCO USER [facility] Jan 06, 2007 08:51 AM LIFETIME NON-TOBACCO USER [facility] Radiology Reports: +/- 30 days of the [...] the Encounter. The data comes from all [place] treatment facilities. Date/Time Radiology Report Provider Source Apr 29, 2022 08:32 CT (C) CHEST (P): HEIDI EDWARDS [facility] AM ELLE CORONEL [id number] -[birth year] M Exm Date: APR 29, 2022@08:32 Req Phys: CLAYTON ROLLE Pat Loc: [facility] PACT CREAM 4E (Req'g Loc) Img Loc: CT IMAGING Service: Unknown (Case [id number] COMPLETE) CT (C) CHEST W/O CONTRAST (C T Detailed) CPT:94686 Reason for Study: follow up pnemonia Clinical History: pneumonia in lingula seen on CT scan at [facility] 2021, s/p antibiotics with some residual symptoms, f/u fo r resolution [place] IS NOT under investigation for COVID-19 or is COVID-19 negative Defer to radiologist for final CT protocol. Responsible provider name and phone number to n otify for critical findings if other than user placing the order a nd pager listed below: User placing orders pager: [phone] LAST 3: Collection DT Specimen Test Name Result Units Ref Range 02/17/2022 08:35 PLASMA CREATIN INE 1.0 mg/dL 0.7 - 1.2 11/26/2021 09:04 PLASMA CREATININE 0.9 mg/dL 0.7 - 1.2 10/29/2021 09:12 PLASMA CREATININE 0.9 mg/dL 0.7 - 1.2 02/17/2022 08:35 PLASMA CREAT EGFR(CKD-EP 7 8 Ref: >=60 11/26/2021 09:04 PLASMA CREAT EGFR(CK D-EP 88 Ref: >=60 10/29/2021 09:12 PLASMA ESTIMATED GFR(eGF >60 Ref: >=60 05/28/2021 09:15 PLASMA ESTIMATED GFR(eGF >60 Ref: >=60 02/28/2021 08:30 PLASMA ESTIMATED GFR(eGF >60 Ref: >=60 Allergies: ([facility]) DIAL SOAP (Mar 25, 2007) NAPROXEN (February 05, 2011 ) Report Status: Verified Date Reported: APR 30, 2022 Date Verified: APR 30, 2022 Health And Safety Instructor E-Sig:/ES/HEIDI EDWARDS MD Report: Exam: CT chest without intravenous contrast, History: Follow-up pneumonia. History of pneumo mikal in the lingula on CT scan at [facility] February 2022. Status pos t antibiotics. Comparison: PET CT, 01/28/2021 and 10/07/2019. CT chest, abdomen, and pelvis, 08/26/2019. CT chest, 02/17/2019. Technique: CT chest without intravenous contras t. Multiplanar reconstructions performed. Dose: DLP: 454.53/CTDIvol Mean: 11.1/Effective Dose: 6.4 Findings: Chest: No new abnormal mediastinal, hilar, or a xillary lymph nodes. 11 mm left-sided internal mammary lymph node, unchanged (axial image 145, series 4). Mild atherosclerot ic calcifications of the coronary arteries and thoracic aorta. Mi tral annular calcifications. The heart is normal in size. Tr david anterior pericardial fluid. Lungs: No consolidation in the lingula. Sub-2 m m solid subpleural pulmonary nodule in the lingula is new since e 10/07/[address] (axial image 214, series 4). Few new small elaina d pulmonary nodules in the periphery of the right lower lob e are new since the 10/07/[address] For example, new 3 mm emmy id subpleural nodule in the right lower lobe (axial image 196 , series 3). Few groundglass opacities in the right upper lobe. For example, peribronchovascular groundglass opacity in the right upper lobe measuring 23 x 9 mm (axial image 98, series 3). Few additional small solid pulmonary nodules are unchanged sin ce previous exams. Minimal biapical scarring. Mild dependent atele ctasis in the lower lobes. Right-sided fat-containing Bochdal ek hernia. No pleural effusion. Upper abdomen: Low-attenuation lesions scattere d throughout the liver, some of which are new/more discrete sinc e the 10/07/[address] For example, 11 mm low-attenuation lesi on in Couinaud's segment 8 of the liver (axial image 247, series 4). No abnormal lymph nodes in the abdomen. 8 mm left paraaorti c lymph node incompletely visualized on this exam (axial giselle ge 351, series 4). Partially visualized duodenal diverticulum. Rem ainder of the visualized upper abdomen is unremarkable. Bones/soft tissues: Diffuse sclerotic lesions t hroughout the visualized skeleton were better evaluated on e 10/07/[address] For example, 16 mm sclerotic lesion in the manubrium, unchanged (sagittal image 104, series 6). Degen erative changes in the spine. Mild bilateral gynecomastia. Impression: 1. No acute pathology in the lingula. If availa ble, direct correlation with outside CT examination from Ju 2021 would be of benefit to evaluate for interval change. 2. New subpleural micronodules in the right low er lobe and lingula since the 10/07/[address] Favor infec tious and/or inflammatory etiology. These pulmonary nodules can be followed up on future imaging exams. 3. Low-attenuation lesions in the liver. Most c onsistent with metastatic disease. Direct comparison with more recent cross-sectional imaging would be of benefit to evaluate for treatment response. 4. Diffuse sclerotic lesions throughout the bon es. Active disease better evaluated on PET CT imaging. Primary Interpreting Staff: HEIDI EDWARDS MD, RADIOLOGIST (Health And Safety Instructor) /BJB Apr 22, 2022 09:24 FOOT RIGHT 3 VIEWS OR MORE: TMIBO CONTRERAS [facility] ELLE CORONEL [id number] -[birth year] M Exm Date: APR 22, 2022@09:24 Req Phys: RUEL JESUS Pat Loc: [facility] P OD EDIN CONSULT Img Loc: MAIN X-RAY Service: Unknown (Case [id number] COMPLETE) FOOT RIGHT 3 VIEWS OR MORE ( RAD Detailed) CPT:19701 Proc Modifiers : RIGHT, WEIGHT BEARING Reason for Study: Pain Clinical History: [place] IS NOT under investigation for COVID-19 or is COVID-19 negative Posterior heel pain. Responsible provider name and phone number to notify for critical findings if other than user placing the order and pager listed below: User placing orders pager: [phone] LAST CREATININE 1.0 (02/17/22) Report Status: Verified Date Reported: APR 22, 2022 Date Verified: APR 22, 2022 Health And Safety Instructor E-Sig:/ES/TIMBO CONTRERAS DO Report: EXAMINATION: FOOT RIGHT 3 VIEWS OR MORE 2 9:24 AM INDICATION: Posterior heel pain COMPARISON: [...] Primary Interpreting Staff: TIMBO CONTRERAS DO, RADIOLOGIST (Health And Safety Instructor) /DDS Encounter Notes: All associated encounter notes This section contains the clinical notes associated to the Encounter. Date/Time Encounter Note(s) Provider Source Apr 02, 2022 10:12 AM NURSING TELEPHONE ENCOUNTER NOTE: MELBA KRAMER [facility] LOCAL TITLE: TELEPHONE CARE NURSE TRIAGE STANDARD TITLE: NURSING TELEPHONE ENCOUNTER NOTE DATE OF NOTE: APR 02, 2022@10:12:52 ENTRY DATE: APR 02, 2022@10:23:44 AUTHOR: MELBA KRAMER EXP COSIGNER: URGENCY: STATUS: COMPLETED Chief Complaint: Not applicable to call. The following identifiers were used to verify th is patient: . SSN. Comments: Clinical Contact/Call Center Coronavirus Disease 2019 (COVID-19) Screen, [place]. January 2021 DIAGNOSIS AND TESTING STATUS: Has [place] been diagnosed with COVID-19: () Yes* Date: (continue screening) (x) No (Continue Screening) Comment(s): Is waiting for COVID-19 test results: () Yes (Continue Screening) (x) No (Continue Screening) Comment: SCREEN: Signs and Symptoms: a. Fever or chills: () Yes Check all that apply: () Fever () Chills (x) No Comment(s): b. New or worsening cough or shortness of breat h: () Yes Check all that apply: () Cough () Shortness of breath (Dyspnea) (x) No Comment(s): c. Any cold or flu-like symptoms: () Yes Check all that apply: () Cold like symptoms () Runny Nose (Rhinorrhea) () Sore Throat () Flu-like symptoms () Fatigue () Muscle Pain (Myalgia) (x) No Comment(s): d. New onset diarrhea, nausea or vomiting: () Yes Check all that apply: () Diarrhea () Nausea () Vomiting (x) No Comment(s): e. New onset headache, loss of taste or loss of smell () Yes Check all that apply: () Headache () Loss of taste () Loss of smell (x) No Comment(s): EXPOSURE: Exposure (within 6 feet for more than 15 minute s) in the last two weeks (14 days) to someone with known or larissa pected case of COVID-19: () Yes (x) No Comment(s): SCREEN RESULT: Any symptom or exposure= positiv e screen () POSITIVE SCREEN: Patient has a Positive symp camila and/or exposure. Follow- up required. (x) Negative Screen NURSES NOTES PATIENT CONCERN/DURATION/ONS ET: Pt requests PCP appt for annual, new finding in lung on CT at [facility] and right achilles te ndon pain x4. Pt has been doing PT for achilles tendon pain which provides temporary re lief but is told that he will need surgery. Pain is intermittent, has pain at rest and with walking. Current pain is 3/10, goes u p to 8/10 at times. Denies new redness or swelling. WHAT HAS PATIENT TRIED TO TREAT THE SYMPTOMS: 10 00 mg tylenol helps a little HISTORY/PREVIOUS TREATMENT: carcinoid tumor, pro state cancer, afib, HL WHAT IS PATIENT GOAL FOR THE CALL: seeking PCP a ppt. DID YOU CONSIDER USING CCC LIP (TELE or VVC): no REAR ADMIRAL DISPOSITION: trade embalmer recommendation is medical attention within 2 weeks for ongoing heel pain and to discuss CT fi ndings. Warm hand off to Иван SIMS and pt scheduled for 04/04/22 at 0830 . Advised patient to call back immediately/seek em ergency care if any of the signs or symptoms noted above worsen. Best contact for pt is [phone](verified). (Caller could accurately sum marize the agreed upon plan of care as discussed in the education log portion of this note.) Per policy, automated recommendations for an jacquie ointment indicates an interaction (virtual or in-person) with the care team. Author: MELBA KRAMER Caller Area: *[facility] The patient, ELLE CORONEL ([id number]) P natividad: [phone] called the call center. Caller Response: APPT GREATER THAN 24 HOURS Class Code: Other specified counseling. Contact Advised to contact Telephone Care for any questions, concerns, new or worsening symptoms; services available 06/04. Evaluation/Management Code: HC PRO PHONE CALL 5- 10 MIN ([id number]). Starting at: 04/02/2022 @ 10:12:52 AM Ending at: 04/02/2022 @ 10:18:50 AM Length: 5 minutes. Nurse Notes: Protocol Used: Foot Pain Protocol-Based Disposition: See PCP or Video Vis it within 2 Weeks Video visit offer not recorded Positive Triage Question: * Foot pain is a chronic symptom (recurrent or o ngoing AND present > 4 weeks) Care Advice Discussed: * Reasons To Call Back - Fever occurs - Redness or swelling occur - You become worse Negative Triage Questions: * Entire foot is cool or blue in comparison to o ther foot * Purple or black skin on foot or toe * [1] Red area or streak AND [2] fever * [1] Swollen foot AND [2] fever * Patient sounds very sick or weak to the triage r * [1] SEVERE pain (e.g., excruciating, u nable to do any normal activities) AND [2] not improved after 2 hours of pain medicine * [1] Looks infected (spreading redness, pus) AN D [2] large red area (> 2 in. or 5 cm) * Looks like a boil, infected sore, or deep ulce r * [1] Redness of the skin AND [2] no fever * [1] Swollen foot AND [2] no fever (Exceptions: localized bump from bunions, calluses, insect bite, sting) * Weakness (i.e., loss of strength) of new-onset in foot or toes (Exceptions: not truly weak, foot feels weak because of pain; weakness present > 2 weeks) * Numbness (i.e., loss of se nsation) in foot or toes (Exception: just tingling; numbness present > 2 weeks) Patient's Email Address: [email or web address] Provider Info: [facility] ([id number]) PACT: [facility] PACT CREAM (Focus: Primary Care Only) Primary Care Provider: CLAYTON ROLLE PHONE:[phone] PAGER:[phone] Proof Clerk: RUPERTO ASTORGA PHONE: Clinical Associate: NIMA ROMERO PHONE:[phone] Food Operations Manager: MARITZA KING NATIVIDAD:[id number] PACT Clinical Pharmacist: CATHIE KENT PHONE:[phone] Clinical POC: Administrative POC: Type of call: *TC SYMPTOM APPT. /es/ MELBA KRAMER MS, RN, CNL VISN 23 DAYTIME P[place]OCK JUDGE Signed: 04/02/2022 10:23
--- OUTSIDE RECORDS SUMMARY | 2022-06-06 12:05 | XMS_ITS | Encounter Summary ---
:1945 Author Organization Department of [facility] rs Address [address] [place] [id number] Support Name Relationship Address Phone Arti CORONEL Unavailable [address] [place] [address] ADITYA MALIN Unavailable [address] [place] [phone] Insurance Providers: All historical and current Section [...] MEDICARE MEDICARE PART May 15, PART A [id number] 800 HOMER HUNTER (WNR) (M) A [id number] [phone] ,ELLE MEDICARE MEDICARE PART May 15, PART B [id number] 800 HOMER DEL VALLEIENT (WNR) (M) B [id number] [phone] ,ELLE Selected Encounter This section includes the information on record at [place] for the Encounter. Date/Time Encounter Type Encounter Description Reason Provider Source Jun 14, 2021 12:00 Outpatient Encounter EVENT (HISTORICAL) AM [facility] Encounter Template Text not used by [place] Plan of Treatment: Future Appointments (+ 6 months) and Future Tests (+/- 45 days) The Plan of Treatment section includes future care activities for the patient from all [place] treatmentfacilities. This section includes future appointments and future orders which are active, pending orscheduled.Future Appointments This section includes appointments that were scheduled to occur 6 months from the date of the Encounter, up to a maximum of 20 appointments. The data comes from all [place] treatment facilities. Appointment Date/Time Appointment Type Appointment Facili ty Name Jun 25, 2021 10:00 AM AMBULATORY - MEDICINE [facility] Jun 25, 2021 10:30 AM AMBULATORY - MEDICINE [facility] Jul 10, 2021 08:00 AM AMBULATORY - NONE [facility] Jul 23, 2021 09:30 AM AMBULATORY - MEDICINE [facility] Aug 15, 2021 09:30 AM AMBULATORY - MEDICINE [facility] Aug 15, 2021 10:11 AM AMBULATORY - NEUROLOGY [facility] Sep 10, 2021 09:30 AM AMBULATORY - MEDICINE [facility] Sep 10, 2021 10:35 AM AMBULATORY - NEUROLOGY [facility] Oct 08, 2021 08:30 AM AMBULATORY - MEDICINE [facility] Oct 29, 2021 09:00 AM AMBULATORY - NONE [facility] Oct 29, 2021 09:15 AM AMBULATORY - NONE [facility] Oct 29, 2021 10:00 AM AMBULATORY - MEDICINE [facility] Oct 29, 2021 10:30 AM AMBULATORY - MEDICINE [facility] Nov 26, 2021 09:30 AM AMBULATORY - MEDICINE [facility] Nov 26, 2021 10:15 AM AMBULATORY - NONE [facility] Lab Results: +/- 30 days of the encounter This section includes the Chemistry and Hematology Lab Results on record with [place] for the patient. Radiology Reports and Pathology Reports are provided separately, in subsequent sections.Lab Results This section contains the Chemistry/Hematology Results that were resulted 30 days before or 30 daysafter the date of the Encounter. Date/Time Source Result Type Result - Unit Interpretation Reference Range Comment Jun 25, 2021 09:15 AM [facility] PT/INR(ANTICOAG) Speci men Type: PLASMA No comment enter ed. Ordering Provid er: NAOMI STORY Report Released Date/Time: Jun 13, 2021 11:17 AM Reporting Lab: [facility] [address] [facility] [address] Performing Lab: [facility] [address] [facility] [address] .INR 3.4 H 0.8-1.1 .PT 39.1 H 9.4-12.5 May 28, 2021 09:15 AM [facility] SEROTONIN Specim en Type: SERUM Comment: This t est was developed and its analytical performance characteristics have been determined by [employer] [place], [place]. It has not been cleared or approved by the [place] . Food and Drug Administration. This assay has been validated pursuant to the CLIA regulations and is used for clinical purposes. Test Performed by [facility], [employer] [facility], [address] [place] [address] Truman Doan M.D., Ph.D., Director of Laboratories , CLIA [id number] Ordering Provid er: LILI GARCIA Report Released Date/Time: Feb 28, 2021 09:32 AM Reporting Lab: [facility] [address] [facility] [address] Performing Lab: [address] SEROTONIN 1393 H 56-244 May 28, 2021 09:15 [facility] CHROMOGRANIN A(RAINIER) Spec imen Type: SERUM AM No comment enter ed. Ordering Provid er: LILI GARCIA Report Released Date/Time: Feb 28, 2021 09:32 AM Reporting Lab: [facility] [address] [facility] [address] Performing Lab: [facility] [address] [facility] [address] CHROMOGRANIN A(ROSE) 52 <92 May 28, 2021 09:15 AM [facility] LD,TOTAL Specim en Type: PLASMA No comment enter ed. Ordering Provid er: LILI GARCIA Report Released Date/Time: Feb 28, 2021 09:32 AM Reporting Lab: [facility] [address] [facility] [address] Performing Lab: [facility] [address] [facility] [address] LD,TOTAL 201 125-220 May 28, 2021 09:15 AM [facility] PSA Specim en Type: SERUM No comment enter ed. Ordering Provid er: CLAYTON ROLLE Report Released Date/Time: May 15, 2021 12:34 PM Reporting Lab: [facility] [address] [facility] [address] Performing Lab: [facility] [address] [facility] [address] PSA 0.01 <4.00 May 28, 2021 09:15 [facility] HEMOGLOBIN A1C Specimen Type: BLOOD AM No comment enter ed. Ordering Provid er: CLAYTON ROLLE Report Released Date/Time: May 15, 2021 12:34 PM Reporting Lab: [facility] [address] [facility] [address] Performing Lab: [facility] [address] [facility] [address] HEMOGLOBIN A1C 5.9 4.0-6.0 May 28, 2021 [facility] LIPID PANEL,NON-FASTING Spec imen Type: PLASMA 09:15 AM No comment enter ed. Ordering Provid er: CLAYTON ROLLE Report Released Date/Time: May 15, 2021 12:34 PM Reporting Lab: [facility] [address] [facility] [address] Performing Lab: [facility] [address] CHOLESTEROL 203 H <199 .HDL 58 >40 LDL CALCULATION 123 H <99 VLDL CALCULATION 22 <29 NON HDL CHOLESTEROL 145 H <129 TRIG(NON FASTING) 108 <149 May 28, 2021 [facility] COMPREHENSIVE METABOLIC Spec imen Type: PLASMA 09:15 AM PANEL+MG No comment enter ed. Ordering Provid er: LILI GARCIA Report Released Date/Time: Feb 28, 2021 09:32 AM Reporting Lab: [facility] [address] [facility] [address] Performing Lab: [facility] [address] CREATININE 0.9 0.7-1.2 UREA NITROGEN 12 8-26 GLUCOSE 123 H 74-100 SODIUM 137 136-145 POTASSIUM 4.0 3.5-5.1 CHLORIDE 106 98-107 CO2 24 22-29 CALCIUM 9.3 8.4-10.2 PROTEIN,TOTAL 7.0 6.0-8.3 ALBUMIN 3.9 3.5-5.2 BILIRUBIN, TOTAL 0.8 0.2-1.2 MAGNESIUM 2.1 1.6-2.6 ANION GAP 7 5-15 ALKALINE PHOSPHATASE 72 40-150 ALT/SGPT 17 <55 AST/SGOT 17 <34 ESTIMATED GFR(eGFR) 82 >60 May 28, 2021 09:15 AM [facility] CBC & DIFF Specim en Type: BLOOD Comment: Automa rosalba Differential Performed Ordering Provid er: LILI GARCIA Report Released Date/Time: Feb 28, 2021 09:32 AM Reporting Lab: [facility] [address] Performing Lab: [facility] [address] [facility] [address] WBC 4.25 4.0-11.0 RBC 4.19 L 4.6-6.2 [...] IG(META,MYELO,PRO) 0.2 ABS IMMATURE GRAN 0.01 0-0.1 Immunizations: All administered on the encounter date This section contains immunizations associated to the Encounter. Immunization Series Date Issued Reaction Comments INFLUENZA, UNSPECIFIED FORMULATION Jun 14, 2021 Social History: Smoking Status (Most current) and Tobacco Use (All prior to encounter date) This section includes the most current, and the historical, smoking and tobacco-related health factors from the [place] facility where the Encounter took place.Current Smoking Status This section includes the most current smoking, or tobacco-related health factor, from the [place] facility where the Encounter took place. Date/Time Current Smoking Status Comment Facility May 15, 2021 10:00 AM [place]-TOBACCO NEVER USED [place] [facility] Tobacco Use History This section includes a history of the smoking, or tobacco- related health factors, that were collected on or before the date of the Encounter. The data comes from the [place] facility where the Encounter took place. Date/Time Smoking Status/Tobacco Use Comment [facility] Oct 05, 2019 10:05 AM [place]-TOBACCO NEVER USED [place] [facility] [facility] Oct 20, 2018 12:28 PM INPT NO TOBACCO USE IN LAST 30 DAYS [facility] Sep 15, 2018 01:21 PM [place]-TOBACCO NEVER USED [place] [facility] [facility] Aug 11, 2017 08:54 AM LIFETIME NON-TOBACCO USER [facility] Jul 08, 2016 08:07 AM LIFETIME NON-TOBACCO USER [facility] May 09, 2015 02:31 PM LIFETIME NON-TOBACCO USER [facility] Apr 14, 2014 08:41 AM LIFETIME NON-TOBACCO USER [facility] Jan 06, 2007 08:51 AM LIFETIME NON-TOBACCO USER [facility]
--- OUTSIDE RECORDS SUMMARY | 2022-06-06 12:05 | XMS_ITS | Encounter Summary ---
:1945 Author Organization Department [facility] rs Address [address] [place] [address] Support Name Relationship Address Phone Arti CORONEL Unavailable [address] [place] [address] ADITYA MLAIN Unavailable [address] [phone] [place] [phone] Insurance Providers: All historical and current Section [...] MEDICARE MEDICARE PART May 15, PART B [id number] HOMER Piage ATIENT (WNR) (M) B 2008 [id number] [phone] ,ELLE MEDICARE MEDICARE PART May 15, PART A [id number] SHAYMOYAIDAN P ATIENT (WNR) (M) A 2008 94A [phone] ,ELLE Selected Encounter This section includes the information on record at [place] for the Encounter. Date/Time Encounter Type Encounter Reason Provider Source Description Apr 04, 2022 OFFICE O/P EST PRIMARY ICD-10-CM I48.91 ESSIE ROLLE 08:30 AM HI 40-54 MIN CARE/MEDICINE Unspecified atrial ABROMEO M fibrillation with Provider Comments: Atrial fibrillation ([facility] [id number]) IHE Encounter Template Text not used by [place] Assessments - Encounter Diagnoses This section includes the primary and secondary diagnoses documented for the Encounter. 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 This section includes future appointments and future orders which are active, pending orscheduled.Future Appointments This section includes appointments that were scheduled to occur 6 months from the date of the Encounter, up to a maximum of 20 appointments. The data comes from all [place] treatment facilities. Appointment Date/Time Appointment Type Appointment Facili ty Name Apr 22, 2022 08:30 AM AMBULATORY - NONE [facility] Apr 22, 2022 09:30 AM AMBULATORY - NONE [facility] Apr 22, 2022 09:45 AM AMBULATORY - NONE [facility] Apr 22, 2022 10:30 AM AMBULATORY - MEDICINE [facility] Apr 29, 2022 08:15 AM AMBULATORY - NONE [facility] May 05, 2022 08:30 AM AMBULATORY - SURGERY [facility] May 20, 2022 08:00 AM AMBULATORY - MEDICINE [facility] May 20, 2022 08:30 AM AMBULATORY - MEDICINE [facility] May 20, 2022 09:30 AM AMBULATORY - NONE [facility] May 20, 2022 10:30 AM AMBULATORY - MEDICINE [facility] May 23, 2022 02:45 PM AMBULATORY - SURGERY [facility] Jun 17, 2022 08:00 AM AMBULATORY - NONE [facility] Jun 17, 2022 09:00 AM AMBULATORY - MEDICINE [facility] Jun 17, 2022 09:30 AM AMBULATORY - MEDICINE [facility] Active, Pending, and Scheduled Orders This section includes a listing of several types of active, pending, and scheduled orders, including clinic medications orders, diagnostic test orders, procedure orders and consult orders; where the start date of the order is 45 days before the date of the Encounter or 45 days after the date of the Encounter. The data comes from all [place] treatment facilities. Test Date/Time Test Type Test Details Facility Name Mar 25, 2022 12:00 AM Laboratory - [facility]IVE [facility]ABOLIC [place] [facility] Chemistry Order PANEL+MG PLASMA ONCO SP ONCE Mar 25, 2022 12:00 AM Laboratory - CBC & DIFF BLOOD SP STONE [facility] Chemistry Order Lab Results: +/- 30 days of the encounter This section includes the Chemistry and Hematology Lab Results on record with [place] for the patient. Radiology Reports and Pathology Reports are provided separately, in subsequent sections.Lab Results This section contains the Chemistry/Hematology Results that were resulted 30 days before or 30 daysafter the date of the Encounter. Date/Time Source Result Type Result - Unit Interpretation Reference Range Comment Apr 22, 2022 10:28 [facility] PT/INR(ANTICOAG) Specimen Type: PLASMA AM No comment enter ed. Ordering Provid er: LISETTE LY Report Released Date/Time: Mar 21, 2022 12:27 PM Reporting Lab: [facility] [address] [facility] [id number] Performing Lab: [facility] [address] [facility] [phone] .INR 2.0 H 0.8-1.1 .PT 22.7 H 9.4-12.5 Apr 22, 2022 10:27 AM [facility] PSA Specim en Type: SERUM No comment enter ed. Ordering Provid er: CLAYTON ROLLE Report Released Date/Time: Apr 04, 2022 09:04 AM Reporting Lab: [facility] [address] [facility] [address] Performing Lab: [facility] [address] [facility] [address] PSA 0.01 <4.00 Apr 22, 2022 10:27 [facility] HEMOGLOBIN A1C Specimen Type: BLOOD AM No comment enter ed. Ordering Provid er: CLAYTON ROLLE Report Released Date/Time: Apr 04, 2022 09:04 AM Reporting Lab: [facility] [address] [facility] [address] Performing Lab: [facility] [address] [facility] [address] HEMOGLOBIN A1C 6.1 H 4.0-6.0 Apr 22, 2022 [facility] LIPID PANEL,NON-FASTING Spec imen Type: PLASMA 10:27 AM No comment enter ed. Ordering Provid er: CLAYTON ROLLE Report Released Date/Time: Apr 04, 2022 09:04 AM Reporting Lab: [facility] [id number] Performing Lab: [facility] [address] CHOLESTEROL 194 <199 .HDL 55 >40 LDL CALCULATION 112 H <99 VLDL CALCULATION 27 <29 NON HDL CHOLESTEROL 139 H <129 TRIG(NON FASTING) 136 <149 Apr 22, 2022 [facility] COMPREHENSIVE METABOLIC Spec imen Type: PLASMA 10:27 AM PANEL+MG No comment enter ed. Ordering Provid er: LILI GARCIA Report Released Date/Time: Feb 17, 2022 11:17 AM Reporting Lab: [facility] [phone] Performing Lab: [facility] [address] CREATININE 1.0 0.7-1.2 UREA NITROGEN 17 8-26 GLUCOSE 96 74-100 SODIUM 139 136-145 POTASSIUM 4.1 3.5-5.1 CHLORIDE 108 H 98-107 CO2 26 22-29 CALCIUM 9.4 8.4-10.2 PROTEIN,TOTAL 6.9 6.0-8.3 ALBUMIN 3.9 3.5-5.2 BILIRUBIN, TOTAL 0.8 0.2-1.2 MAGNESIUM 2.0 1.6-2.6 ANION GAP 5 5-15 ALKALINE PHOSPHATASE 68 40-150 ALT/SGPT 15 <55 AST/SGOT 22 <34 CREAT EGFR(CKD-EPI) 78 >60 Apr 22, 2022 10:27 AM [facility] CBC & DIFF Specim en Type: BLOOD Comment: Automa rosalba Differential Performed Ordering Provid er: LILI GARCIA Report Released Date/Time: Feb 17, 2022 11:17 AM Reporting Lab: [facility] [phone] Performing Lab: [facility] [address] WBC 4.55 4.0-11.0 RBC 4.32 L 4.6-6.2 [...] Sukhwinder dy Source Pressure Rate Mass Index Apr 04, 98.2 F 73 111/74 18 /min 96 % 6 70 in 222.4 32 [place] 2021 08:20 /min mm[Hg] lb [facility] Social History: Smoking Status (Most current) and Tobacco Use (All prior to encounter date) This section includes the most current, and the historical, smoking and tobacco-related health factors from the [place] facility where the Encounter took place.Current Smoking Status This section includes the most current smoking, or tobacco-related health factor, from the [place] facility where the Encounter took place. Date/Time Current Smoking Status Comment Facility Apr 04, 2022 08:30 AM [place]-TOBACCO NEVER USED [place] [facility] Tobacco Use History This section includes a history of the smoking, or tobacco- related health factors, that were collected on or before the date of the Encounter. The data comes from the [place] facility where the Encounter took place. Date/Time Smoking Status/Tobacco Use Comment [facility] May 15, 2021 10:00 AM [place]-TOBACCO NEVER USED [place] [facility] Oct 05, 2019 10:05 AM IN-TOBACCO NEVER USED [place] [facility] Oct 20, 2018 12:28 PM INPT NO TOBACCO USE IN LAST 30 DAYS [facility] Sep 15, 2018 01:21 PM IN-TOBACCO NEVER USED [place] [facility] Aug 11, 2017 08:54 AM LIFETIME NON-TOBACCO USER [facility] Jul 08, 2016 08:07 AM LIFETIME NON-TOBACCO USER [facility] May 09, 2015 02:31 PM LIFETIME NON-TOBACCO USER [facility] Apr 14, 2014 08:41 AM LIFETIME NON-TOBACCO USER [facility] Jan 06, 2007 08:51 AM LIFETIME NON-TOBACCO USER [facility] Radiology Reports: +/- 30 days of [...] the Encounter. The data comes from all [place] treatment facilities. Date/Time Radiology Report Provider Source Apr 29, 2022 08:32 CT (C) CHEST (P): HEIDI EDWARDS [facility] AM SHAYMOYAIDANELLE THOM [id number] -[birth year] M Exm Date: APR 29, 2022@08:32 Req Phys: CLAYTON ROLLE Loc: [facility] PACT CREAM 4E (Req'g Loc) Img Loc: CT IMAGING Service: Unknown (Case [id number] COMPLETE) CT (C) CHEST W/O CONTRAST (C T Detailed) CPT:55915 Reason for Study: follow up pnemonia Clinical History: pneumonia in lingula seen on CT scan at [place] 2021, s/p antibiotics with some residual symptoms, f/u fo r resolution IS NOT under investigation for COVID-19 or is COVID-19 negative Defer to radiologist for final CT protocol. Responsible provider name and phone number to n otify for critical findings if other than user placing the order a nd pager listed below: User placing orders pager: [phone] LAST 3: Collection DT Specimen Test Name [...] PLASMA ESTIMATED GFR(eGF >60 Ref: >=60 Allergies: ([place] only) DIAL SOAP (Mar 25, 2007) NAPROXEN (February 05, 2011 ) Report Status: Verified Date Reported: APR 30, 2022 Date Verified: APR 30, 2022 Upholsterer Inside E-Sig:/ES/HEIDI EDWARDS MD Report: Exam: CT chest without intravenous contrast, History: Follow-up pneumonia. History of pneumo mikal in the lingula on CT scan at [facility] February 2022. Status pos t antibiotics. [...] nodule in the lingula is new since th e 10/07/[address] (axial image 214, [...] the visualized skeleton were better evaluated on th e 10/07/[address] For example, 16 mm sclerotic lesion in the manubrium, unchanged (sagittal image 104, series 6). Degen erative changes in the spine. Mild bilateral gynecomastia. Impression: 1. No acute pathology in the lingula. If availa ble, direct correlation with outside CT examination from 2021 would be of benefit to evaluate [...] Primary Interpreting Staff: HEIDI EDWARDS MD, RADIOLOGIST (Upholsterer Inside) /BJB Apr 22, 2022 09:24 FOOT RIGHT 3 VIEWS OR MORE: TIMBO CONTRERAS [facility] AM HOMERELLE THOM [id number] -[birth year] M Exm Date: APR 22, 2022@09:24 Req Phys: RUEL JESUS Pat Loc: [facility] JESUS CONSULT Img Loc: MAIN X-RAY Service: Unknown (Case [id number] COMPLETE) FOOT RIGHT 3 VIEWS OR MORE ( RAD Detailed) CPT:91106 Proc Modifiers : RIGHT, WEIGHT BEARING Reason for Study: Pain Clinical History: IS NOT under investigation for COVID-19 or is COVID-19 negative Posterior heel pain. Responsible provider name and phone number to notify for critical findings if other than user placing the order and pager listed below: User placing orders pager: [phone] LAST CREATININE 1.0 (02/17/22) Report Status: Verified Date Reported: APR 22, 2022 Date Verified: APR 22, 2022 Upholsterer Inside E-Sig:/ES/TIMBO CONTRERAS DO Report: EXAMINATION: FOOT RIGHT [...] Primary Interpreting Staff: TIMBO CONTRERAS DO, RADIOLOGIST (Upholsterer Inside) /DDS Encounter Notes: All associated encounter notes This section contains the clinical notes associated to the Encounter. Date/Time Encounter Note(s) Provider Source May 06, 2022 10:00 AM LETTERS: CLAYTON ROLLE [facility] LOCAL TITLE: FOLLOW UP RESULTS LETTER M STANDARD TITLE: LETTERS DATE OF NOTE: MAY 06, 2022@10:00 ENTRY DATE: MAY 06, 2022@10:01:01 AUTHOR: CLAYTON ROLLE EXP COSIGNER: URGENCY: STATUS: COMPLETED [facility] [address] [place] [address] Apr ELLE CORONEL [address] [facility] [address] Dear : I am writing to inform you of the results of sierra ting that you had done recently at the [facility] em. Your CT scan did not show any signs of bacterial pneumonia, so I would not recommend further antibiotics at this ti me. There were some very small nodules noted (2 and 3 mm) which may represent scarring or inflammation, we (or your oncologists) will keep an eye on these on future exams. If you have any further ques tions or problems, please contact our nursing staff or provider at the following number: . Sincerely, CLAYTON ORLLE MD PHYSICIAN Apr 04, 2022 08:42 AM INTERNAL MEDICINE NOTE: CLAYTON ROLLE [facility] LOCAL TITLE: MEDICINE CLINIC NOTE M STANDARD TITLE: INTERNAL MEDICINE NOTE DATE OF NOTE: APR 04, 2022@08:42 ENTRY DATE: APR 04, 2022@08:42:23 AUTHOR: CLAYTON ROLLE EXP COSIGNER: URGENCY: STATUS: COMPLETED MEDICINE CLINIC NOTE Has ADDENDA S: 76 y/o M with hx carcinoid with diffuse mets, prostate ca, afib presenting for annual visit and to f/u cough and sinus drainage. Has had intermittent cough and sinus drainage for last couple of months, al so has itchy eyes. Using flonase, has not tried anything else for allergi es. Was given doxycycline at last onc visit after lingula r opacity noted in scan from [place] at the end of January. Patient feels he improved somewhat after those a ntibiotics but then symptoms have subsequently plateaued. Does not feel like he has gotten any worse since then. Coughs sometimes at ni ght and sometimes has coughing fits during the day. R ankle has been bothering h im. Has been seeing PT locally. Also has seen local ortho in the past who noted that his achilles is split but they did not think his foot was amenable to naomy isra. He is interested in seeing someone at [place] for a second opinion. Has f/u appt with oncology next month. Active problems - Computerized Problem List is t he source for the followin. Hearing Loss, Bilateral 2. Hyperlipidemia 3. 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 Osteoarthritis of knee (SNOMED CT [id number]) 5. Carcinoid tumor (SNOMED CT [id number]) 6. Atrial fibrillation (SNOMED CT 02319180) - Paroxysmal 06/23 and 12/24 CHADS 2 score 0 7. Post Vit Detachment 8. Health Maintenance - colonoscopy 2006, next due 2016 9. Pain in limb - knee pain 10. Impotence 11. Solitary nodule of lung 12. Colonoscopy normal - 2000 next rec 2016 13. High risk drug monitoring status 14. Long-term current use of anticoagulant Active Outpatient Medications (including Supplie s): Outpatient Medications Status 1) OCTREOTIDE ACETATE 20MG/KIT SA SUSP INJ INJEC T 20MG ACTIVE 20MG INTRAMUSCULAR EVERY MONTH IN HEME/ONC CLINICDO NOT MAIL TO BE DISPENSE IN CLINIC 2) SOTALOL HCL 80MG TAB TAKE ONE TABLET BY MOUTH TWO ACTIVE TIMES A DAY 3) WARFARIN NA ([place] STATE) 5MG TAB TAKE ONE A ND ACTIVE ONE-HALF TABLETS BY MOUTH THURSDAY AND THURSDAY AND TAKE ONE TABLET ALL OTHER DAYS OR DIRECTED B Y WARFARIN CLINIC TO TREAT AND/OR PREVENT BLOOD C LOTS Non-VA Medications Status 1) Non-VA CHOLECALCIF 25MCG (D3-1,000UNIT) TAB 1 000UNIT ACTIVE MOUTH EVERY DAY 2) Non-VA NON VA MED NOT LISTED MISCELLANEOUS MO UTH ACTIVE EVERY MORNING 3) Non-VA VITAMIN E CAP,ORAL MOUTH EVERY MORNING ACTIVE 6 Total Medications SHx remote smoking for 2 weeks in college, 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 Currently not taking classes FHx paternal grandmother - cancer Temperature: 98.2 F [36.8 C] (04/04/2022 08:20) Blood Pressure: 111/74 (04/04/2022 08:20) Pulse: 73 (04/04/2022 08:20) Respiration: 18 (04/04/2022 08:20) Pain: 6 (04/04/2022 08:20) Pulse Oximetry: 96% (04/04/2022 08:20) Gen: alert, pleasant, appears fatigued but HEENT: no icterus, mmm. mild streaking erythema in posterior OP CV: rrr, no m/r/g Resp: lungs ctab, no wheezes/crackles Ext: no LE edema. prominent achilles insertion s ite without tenderness to palpation Skin: no concerning lesions A/P Sinusitis Cough Suspect allergic component. Last CT with lingula r opacity, received course of doxy with some improvement but not complete reso lution - cont fluticasone - start loratidine - repeat CT to f/u PNA, would give additional ab x if findings suggestive of infiltrate, however clinical picture does not st rongly support PNA Chronic R achilles tendonopathy Following with local PT. No improvement with diclofenac. 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 /mustapha/ CLAYTON ROLLE MD PHYSICIAN Signed: 04/04/2022 09:08 04/30/2022 ADDENDUM STATUS: COMPLETED 04/30/22 Impression: 1. No acute pathology in the lingula. If availa ble, direct correlation with outside CT examination from 2021 would be of benefit to evaluate [...] disease better evaluated on PET CT imaging. Will alert Hem-Onc staff to CT findings (known m etastatic carcinoid). Are findings outlined in #2 c/w metastatic d x, or should Pulmonary be consulted to evaluate for other infectious/inflammatory etiol ogy? /es/ KARY CELAYA APRN, [employer] [facility]ER NURSE PRACTITIONER Signed: 05/01/2022 12:41 Receipt Acknowledged By: * AWAITING SIGNATURE * LILI GARCIA Apr 04, 2022 08:22 AM INTERNAL MEDICINE OUTPATIENT NOTE: ED BEAULIEU [facility] LOCAL TITLE: MEDICINE CLINIC NURSING NOTE STANDARD TITLE: INTERNAL MEDICINE OUTPATIENT NOT E DATE OF NOTE: APR 04, 2022@08:22 ENTRY DATE: APR 04, 2022@08:22:05 AUTHOR: ED BEAULIEU EXP COSIGNER: URGENCY: STATUS: COMPLETED TYPE OF VISIT: Appointment Check In Type of appointment: In-person appointment REASON FOR VISIT: right heel pain and spot found on right lung by [place] ALLERGIES: DIAL SOAP (Mar 25, 2007) NAPROXEN (February 05, 2011) VITAL SIGNS: Blood Pressure: 111/74 (04/04/2022 08:20) Pulse: 73 (04/04/2022 08:20) Respiration: 18 (04/04/2022 08:20) Temperature: 98.2 F [36.8 C] (04/04/2022 08:20) Weight: 222.4 lb [100.88 kg] (04/04/2022 08:20) Height: 70 in [177.8 cm] (04/04/2022 08:20) BMI: 32.0 O2 Sat: 96% (04/04/2022 08:20) Pain: 6 (04/04/2022 08:20) PAIN SCREEN: Patient is having significant pain that they wo uld like to talk to their provider about today. Old (Chronic) (began more than 6 months ago) Patient states their average pain this past wee k is 7 Patient states the average number on how the ch ronic pain affects their enjoyment of life the past week is 3 Patient states during the past week the average number on how the pain has interfered with their general activity is 4 Pain Education Patient indicates readiness to learn and verbal izes understanding of the following: Managing Your Chronic Pain, Regaini ng Control of Your Life handout given Has concerns/questions, advised to discuss with provider MEDICATION Over the Counter/Herbal Medications: The patient states that they take some outside medications and/or herbals. Nursing Annual Screening: Fall History Screen During the past 12 months, have you had any fal ls? Patient reports one fall with injury requiring treatment in the past 12 months. MEDICATIONS: Patient is on one of the following medication c lasses: Antihypertensives, Antidepressants, Antipsychot ics, Diuretics, or Controlled substance medication used for pain. FALL RISK ADVICE: Fall Risk Advice provided. Handout entitled Fa ll Prevention At Home reviewed and given to patient and/or significan t other. Alcohol Use Screen Alcohol Screen: SCREEN FOR ALCOHOL (AUDIT-C) An alcohol screening test (AUDIT-C) was negativ e (score=2). 1. How often did you have a drink containing al cohol in the past year? Two to four times a month 2. How many drinks containing alcohol did you h ave on a typical day when you were drinking in the past year? One or two drinks 3. How often did you have six or more drinks on one occasion in the past year? Never Script Talk Screen Are you able to read your prescription bottles with your glasses, magnifiers or other aids? Yes or patient not taking any prescriptions. Skin Screen Patient reports any current pressure ulcers, a history of pressure ulcers, or a wound from a medical affairs leader or Patient is bed-confined or a wheelchair-user or Patient requires assistance to transfer/change position No, Skin Screen is Negative Home Abuse/Violence Screen Is your home free of abuse and violence? Yes MOVE! Program Screen Body Mass Index (BMI)= 32.0 [place]: Collection DT Specimen Test Name Result Units R ef Range 05/28/2021 09:15 BLOOD HEMOGLOBIN A1C 5.9 % 4.0 - 6.0 [place] Hgb A1C: No data available [place] Hgb A1C: No data available Point of Care Hgb A1C: POC HGB A1C____ Outpatient Nutrition Screen Body Mass Index (BMI)= 32.0 [place]erman: Collection DT Specimen Test Name Result Units R ef Range 05/28/2021 09:15 BLOOD HEMOGLOBIN A1C 5.9 % 4.0 - 6.0 [place] Hgb A1C: No data available [place] Hgb A1C: No data available Point of Care Hgb A1C: POC HGB A1C____ Is patient's BMI less than 18.5? No Does patient have swallowing, coughing, or chew ing problems affecting oral intake? No Has patient experienced unplanned weight loss o r gain greater than 10 pounds over the last 2 months? No Is patient's Hgb A1C (Glycosylated Hemoglobin) greater than 9.5? Information not available Is patient receiving Total Parenteral Nutrition (TPN) or Tube Feedings? No Patient Health Education Screen BARRIERS/SPECIAL NEEDS: Visual limitations PREFERRED STYLE OF LEARNING: No preference stated Client Assistive Service (KATE) Screen Does the patient require assistance with outpat ient visit? No Tobacco Use Screening: The patient has never used tobacco. Influenza Immunization: The patient has received the seasonal influenza vaccine for the current season at another location. Date: June, Exact date is unknown Location: Outside pcp Homelessness/Food Insecurity Screen: In the past 2 months, have you been living in s table housing that you own, rent, or stay in as part of a household? Y es - Living in stable housing. Are you worried or concerned that in the next 2 months you may NOT have stable housing that you own, rent, or stay in a s part of a household? No - Not worried about housing near future The reports the following: Within the past 12 months, you worried whether your food would run out before you got money to buy more. Never true Within the past 12 months, the food you bought just didn't last and you didn't have money to get more. Never true /es/ ED BEAULIEU LPN LICENSED PRACTICAL NURSE Signed: 04/04/2022 08:28 Apr 04, 2022 08:16 AM ADVANCE DIRECTIVE: HARLAN JACOBO [facility] LOCAL TITLE: AD NOTIFICATION AND SCREENING STANDARD TITLE: ADVANCE DIRECTIVE DATE OF NOTE: APR 04, 2022@08:16 ENTRY DATE: APR 04, 2022@08:16:41 AUTHOR: HARLAN JACOBO EXP COSIGNER: URGENCY: STATUS: COMPLETED ADVANCE DIRECTIVE NOTIFICATION: [facility] rights: 1. Accept or refuse any medical treatment. 2. Complete a durable power of pt escort for [facility] care. 3. Complete a living will. ADVANCE DIRECTIVE SCREENING: Does patient have an Advance Directive? The patient does not have an Advance Directive. The patient wishes to create an Advance Directi ve for health care. The patient has no questions about completing t he Advance Directive forms. /mustapha/ HARLAN JACOBO ADVANCED MSA Signed: 04/04/2022 08:17
--- OUTSIDE RECORDS SUMMARY | 2022-06-06 12:06 | XMS_ITS | Encounter Summary ---
:1945 Author Organization Department of [facility] rs Address [address] [place] [id number] Support Name Relationship Address Phone Arti CORONEL JARED Unavailable [address] [place] [address] ADITYA MALIN Unavailable [address] [place] [address] Insurance Providers: All historical and current Section [...] MEDICARE MEDICARE PART May 15, PART A [id number] [address] Paige ELSA (WNR) (M) A 2008 [id number] [phone] ,ELLE MEDICARE MEDICARE PART May 15, PART B [id number] 800 SH[address] Paige HUNTER (WNR) (M) B 2008 [id number] [phone] ,ELLE Selected Encounter This section includes the information on record at [place] for the Encounter. Date/Time Encounter Type Encounter Reason Provider Source Description Apr 22, 2022 OCTREOTIDE CHEMOTHERAPY PROC. ICD-10-CM C7A.00 KIM ODOM 10:30 AM INJECTION, DEPOT UNIT-MED. 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 This section includes future appointments and future orders which are active, pending orscheduled.Future Appointments This section includes appointments that were scheduled to occur 6 months from the date of the Encounter, up to a maximum of 20 appointments. The data comes from all [place] treatment facilities. Appointment Date/Time Appointment Type Appointment Facili ty Name Apr 29, 2022 08:15 AM AMBULATORY - NONE [facility] May 05, 2022 08:30 AM AMBULATORY - SURGERY [facility] May 20, 2022 08:00 AM AMBULATORY - MEDICINE [facility] May 20, 2022 08:30 AM AMBULATORY - MEDICINE [facility] May 20, 2022 09:30 AM AMBULATORY - NONE [facility] May 20, 2022 10:30 AM AMBULATORY - MEDICINE [facility] May 23, 2022 02:45 PM AMBULATORY - SURGERY [facility] Jun 17, 2022 08:00 AM AMBULATORY - NONE [facility] Jun 17, 2022 09:00 AM AMBULATORY - MEDICINE [facility] Jun 17, 2022 09:30 AM AMBULATORY - MEDICINE [facility] Active, Pending, and Scheduled Orders This section includes a listing of several types of active, pending, and scheduled orders, including clinic medications orders, diagnostic test orders, procedure orders and consult orders; where the start date of the order is 45 days before the date of the Encounter or 45 days after the date of the Encounter. The data comes from all [place] treatment [facility]. Test Date/Time Test Type Test Details Facility Name Mar 25, 2022 12:00 Laboratory - COMPREHENSIVE METABOLIC [place] [facility] AM Chemistry Order PANEL+MG PLASMA ONCO SP ONCE Mar 25, 2022 12:00 Laboratory - CBC & DIFF BLOOD SP [place] [facility] AM Chemistry Order Jun 06, 2022 06:00 Laboratory - COVID-19 DIAGNOSTIC PANEL [facility] AM Chemistry Order (CEPHEID) NASOPHARYNGEAL SWAB SP ONCE Jun 06, 2022 06:00 Laboratory - PROTHROMBIN TIME/INR [place] [facility] AM Chemistry Order PLASMA SP ONCE Lab Results: +/- 30 days of the encounter This section includes the Chemistry and Hematology Lab Results on record with [place] for the patient. Radiology Reports and Pathology Reports are provided separately, in subsequent sections.Lab Results This section contains the Chemistry/Hematology Results that were resulted 30 days before or 30 daysafter the date of the Encounter. Date/Time Source Result Type Result - Unit Interpretation Reference Range Comment May 20, 2022 09:03 AM [facility] PT/INR(ANTICOAG) Speci men Type: PLASMA No comment enter ed. Ordering Provid er: CATALINA HEAD Report Released Date/Time: Apr 23, 2022 03:52 PM Reporting Lab: [facility] [address] [id number] Performing Lab: [facility] [address] .INR 2.1 H 0.8-1.1 .PT 24.9 H 9.4-12.5 May 20, 2022 [facility] COMPREHENSIVE METABOLIC Spec imen Type: PLASMA 09:03 AM PANEL+MG No comment enter ed. Ordering Provid er: LILI GARCIA Report Released Date/Time: Feb 17, 2022 11:17 AM Reporting Lab: [facility] ONE [facility] [address] Performing Lab: [facility] [address] CREATININE 1.0 0.7-1.2 UREA NITROGEN 13 8-26 GLUCOSE 98 70-100 SODIUM 141 136-145 POTASSIUM 4.0 3.5-5.1 CHLORIDE 110 H 98-107 CO2 26 22-29 CALCIUM 8.9 8.4-10.2 PROTEIN,TOTAL 6.7 6.0-8.3 ALBUMIN 3.8 3.5-5.2 BILIRUBIN, TOTAL 1.0 0.2-1.2 MAGNESIUM 2.1 1.6-2.6 ANION GAP 5 5-15 ALKALINE PHOSPHATASE 68 40-150 ALT/SGPT 15 <55 AST/SGOT 20 <34 CREAT EGFR(CKD-EPI) 78 >60 May 20, 2022 09:03 AM [facility] CBC & DIFF Specim en Type: BLOOD Comment: Automa rosalba Differential Performed Ordering Provid er: LILI GARCIA Report Released Date/Time: Feb 17, 2022 11:17 AM Reporting Lab: [facility] [address] Performing Lab: [facility] [address] WBC 4.78 4.0-11.0 RBC 4.19 L 4.6-6.2 HGB 14.1 13.5-17.9 HCT 41.6 41-54 MCV 99.3 80-100 MCH 33.7 H 27-33 MCHC 33.9 32.0-37.5 PLT 201 150-400 MPV 10.0 7.4-10.4 NEUT 56.1 LYMPHS 24.9 MONO 13.4 EOSINO 4.8 BASO 0.4 RDW 12.5 11.5-14.5 ABS LYMPH 1.19 1.0-4.0 ABS MONO 0.64 0.1-1.0 ABS NEUT 2.68 2.0-7.7 ABS EOS 0.23 0-0.5 ABS BASO 0.02 0-0.2 IG(META,MYELO,PRO) 0.4 ABS IMMATURE GRAN 0.02 0-0.1 Apr 22, 2022 10:28 [facility] PT/INR(ANTICOAG) Specimen Type: PLASMA AM No comment enter ed. Ordering Provid er: LISETTE LY Report Released Date/Time: Mar 21, 2022 12:27 PM Reporting Lab: [facility] [address] [facility] [address] Performing Lab: [facility] [address] .INR 2.0 H 0.8-1.1 .PT 22.7 H 9.4-12.5 Apr 22, 2022 10:27 AM [facility] PSA Specim en Type: SERUM No comment enter ed. Ordering Provid er: CLAYTON ROLLE Report Released Date/Time: Apr 04, 2022 09:04 AM Reporting Lab: [facility] [address] [facility] [address] Performing Lab: [facility] [address] [facility] [address] PSA 0.01 <4.00 Apr 22, 2022 10:27 [facility] HEMOGLOBIN A1C Specimen Type: BLOOD AM No comment enter ed. Ordering Provid er: CLAYTON ROLLE Report Released Date/Time: Apr 04, 2022 09:04 AM Reporting Lab: [facility] [address] [facility] [address] Performing Lab: [facility] [address] [facility] [address] HEMOGLOBIN A1C 6.1 H 4.0-6.0 Apr 22, 2022 [facility] LIPID PANEL,NON-FASTING Spec imen Type: PLASMA 10:27 AM No comment enter ed. Ordering Provid er: CLAYTON ROLLE Report Released Date/Time: Apr 04, 2022 09:04 AM Reporting Lab: [facility] [address] [facility] [address] Performing Lab: [facility] [address] CHOLESTEROL 194 <199 .HDL 55 >40 LDL CALCULATION 112 H <99 VLDL CALCULATION 27 <29 NON HDL CHOLESTEROL 139 H <129 TRIG(NON FASTING) 136 <149 Apr 22, 2022 [facility] COMPREHENSIVE METABOLIC Spec imen Type: PLASMA 10:27 AM PANEL+MG No comment enter ed. Ordering Provid er: LILI GARCIA Report Released Date/Time: Feb 17, 2022 11:17 AM Reporting Lab: [facility] [address] [facility] [address] Performing Lab: [facility] [address] CREATININE 1.0 0.7-1.2 UREA NITROGEN 17 8-26 GLUCOSE 96 74-100 SODIUM 139 136-145 POTASSIUM 4.1 3.5-5.1 CHLORIDE 108 H 98-107 CO2 26 22-29 CALCIUM 9.4 8.4-10.2 PROTEIN,TOTAL 6.9 6.0-8.3 ALBUMIN 3.9 3.5-5.2 BILIRUBIN, TOTAL 0.8 0.2-1.2 MAGNESIUM 2.0 1.6-2.6 ANION GAP 5 5-15 ALKALINE PHOSPHATASE 68 40-150 ALT/SGPT 15 <55 AST/SGOT 22 <34 CREAT EGFR(CKD-EPI) 78 >60 Apr 22, 2022 10:27 AM [facility] CBC & DIFF Specim en Type: BLOOD Comment: Automa rosalba Differential Performed Ordering Provid er: LILI GARCIA Report Released Date/Time: Feb 17, 2022 11:17 AM Reporting Lab: [facility] [address] Performing Lab: [facility] [address] WBC 4.55 4.0-11.0 RBC 4.32 L 4.6-6.2 [...] smoking and tobacco-related health factors from the [facility] where the Encounter took place.Current Smoking Status This section includes the most current smoking, or tobacco-related health factor, from the [place] facility where the Encounter took place. Date/Time Current Smoking Status Comment Facility Apr 04, 2022 08:30 AM [place]-TOBACCO NEVER USED [place] [facility] Tobacco Use History This section includes a history of the smoking, or tobacco- related health factors, that were collected on or before the date of the Encounter. The data comes from the [facility] where the Encounter took place. Date/Time Smoking Status/Tobacco Use Comment [facility] May 15, 2021 10:00 AM IA-TOBACCO NEVER USED [place] [facility] Oct 05, 2019 10:05 AM VA-TOBACCO NEVER USED [place] [facility] Oct 20, 2018 12:28 PM INPT NO TOBACCO USE IN LAST 30 DAYS [facility] Sep 15, 2018 01:21 PM IA-TOBACCO NEVER USED [place] [facility] Aug 11, 2017 08:54 AM LIFETIME NON-TOBACCO USER [facility] Jul 08, 2016 08:07 AM LIFETIME NON-TOBACCO USER [facility] May 09, 2015 02:31 PM LIFETIME NON-TOBACCO USER [facility] Apr 14, 2014 08:41 AM LIFETIME NON-TOBACCO USER [facility] Jan 06, 2007 08:51 AM LIFETIME NON-TOBACCO USER [facility] Radiology Reports: +/- 30 days of [...] the Encounter. The data comes from all [place] treatment facilities. Date/Time Radiology Report Provider Source Apr 29, 2022 08:32 CT (C) CHEST (P): HEIDI EDWARDS [facility] [place] [facility] [id number] -[birth year] M Exm Date: APR 29, 2022@08:32 Req Phys: CLAYTON ROLLE Loc: [facility] PACT CREAM 4E (Req'g Loc) Img Loc: CT IMAGING Service: Unknown (Case [id number] COMPLETE) CT (C) CHEST W/O CONTRAST (C T Detailed) CPT:66961 Reason for Study: follow up pnemonia Clinical History: pneumonia in lingula seen on CT scan at [place] 2021, s/p antibiotics with some residual symptoms, f/u fo r resolution [place] IS NOT under investigation for COVID-19 or is COVID-19 negative Defer to radiologist for final CT protocol. Responsible provider name and phone number to n otify for critical findings if other than user placing the order a nd pager listed below: User placing orders pager: [phone] LAST 3: Collection DT Specimen Test Name [...] PLASMA ESTIMATED GFR(eGF >60 Ref: >=60 Allergies: ([place] only) DIAL SOAP (Mar 25, 2007) NAPROXEN (February 05, 2011 ) Report Status: Verified Date Reported: APR 30, 2022 Date Verified: APR 30, 2022 Figure Refinisher And Repairer E-Sig:/ES/HEIDI EDWARDS MD Report: Exam: CT chest without intravenous contrast, History: Follow-up pneumonia. History of pneumo mikal in the lingula on CT scan at [facility] February 2022. Status pos t antibiotics. Comparison: [...] Primary Interpreting Staff: HEIDI EDWARDS MD, RADIOLOGIST (Figure Refinisher And Repairer) /BJB Apr 22, 2022 09:24 FOOT RIGHT 3 VIEWS OR MORE: TIMBO CONTRERAS [facility] [place] [id number] -JUN [address] [facility] Date: APR 22, 2022@09:24 Req Phys: RUEL EJSUS Pat Loc: [facility] P OD [facility]IETTAREITER CONSULT Img Loc: MAIN X-RAY Service: Unknown (Case [id number] COMPLETE) FOOT RIGHT 3 VIEWS OR MORE ( RAD Detailed) CPT:84751 Proc Modifiers : RIGHT, WEIGHT BEARING Reason for Study: Pain Clinical History: [place] IS NOT under investigation for COVID-19 or is COVID-19 negative Posterior heel pain. Responsible provider name and phone number to notify for critical findings if other than user placing the order and pager listed below: User placing orders pager: [phone] LAST CREATININE 1.0 (02/17/22) Report Status: Verified Date Reported: APR 22, 2022 Date Verified: APR 22, 2022 Figure Refinisher And Repairer E-Sig:/ES/TIMBO CONTRERAS DO Report: EXAMINATION: FOOT RIGHT [...] Primary Interpreting Staff: TIMBO CONTRERAS DO, RADIOLOGIST (Figure Refinisher And Repairer) /DDS Encounter Notes: All associated encounter notes This section contains the clinical notes associated to the Encounter. Date/Time Encounter Note(s) Provider Source Apr 22, 2022 10:52 AM HEMATOLOGY AND ONCOLOGY NURSING OUTPAT IENT NOTE: ISHAAN ODOM [facility] LOCAL TITLE: HEME/ONC PROCEDURE CLINIC NURSING NOTE STANDARD TITLE: HEMATOLOGY AND ONCOLOGY NURSING OUTPATIENT NOTE DATE OF NOTE: APR 22, 2022@10:52 ENTRY DATE: APR 22, 2022@10:52:58 AUTHOR: ISHAAN ODOM EXP COSIGNER: URGENCY: STATUS: COMPLETED Date of Service: Apr Diagnosis: carcinoid Vital Signs: Height: 70 in [177.8 cm] ( 08:20) Weight: 222.4 lb [100.88 kg] (04/04/2022 08:20) Body Surface Area: 2.23 Temperature: 98.2 F [36.8 C] (04/04/2022 08:20) Blood Pressure (BP): 111/74 (04/04/2022 08:20) Pulse: 73 (04/04/2022 08:20) Respiration: 18 (04/04/2022 08:20) Provider: ELIZABETH Willson Allergies: DIAL SOAP (Mar 25, 2007) NAPROXEN (February 05, 2011) Labs: CBC + Diff: WBC 4.55 (04/22/22) ABS NEUT 2.39 (04/22/22) HGB 14.5 (04/22/22) PLT 211 (04/22/22) Chemistry: SODIUM 139 (02/17/22) POTASSIUM 4.1 (02/17/22) CALCIUM 9.1 (02/17/22) MAGNESIUM 2.0 (02/17/22) CREATININE 1.0 (02/17/22) ALK PHOSPHATASE 69 (02/17/22) SGPT 16 (02/17/22) SGOT 20 (02/17/22) BILIRUBIN, TOTAL 0.9 (02/17/22) Tumor Markers: CEA____ CA 125 TUMOR MARKER____ CA 19-9____ PSA - NONE FOUND Non chemo procedures SQ/IM Medication: Octreotide LAR IM Dosage: 20mg Site: IM R glut Time: 1115 Labs for this procedure clinic reviewed with emily martinez. Patient Response/Status: Pt feeling well today. Received IM injection to R glut without problems, site covered with bandaid. Pt left clinic ambulatory after injection completed. DISCHARGED TO: Home at 1120. /es/ ISHAAN ODOM RN REGISTERED NURSE Signed: 04/22/2022 15:00
--- OUTSIDE RECORDS SUMMARY | 2022-06-06 12:07 | XMS_ITS | Encounter Summary ---
:1945 Author Organization Department [facility] rs Address [address] [place] [id number] Support Name Relationship Address Phone Arti CORONEL Unavailable [address] [facility] [place] [address] ADITYA MALIN Unavailable [address]DA [phone] [place] [id number] Insurance Providers: All historical and current Section [...] MEDICARE MEDICARE PART May 15, PART A [id number] 800 HOMER HUNTER (WNR) (M) A 2008 [id number] [phone] ,ELLE MEDICARE MEDICARE PART May 15, PART B [id number] 800 HOMER HUNTER (WNR) (M) B 2008 [id number] ,ELLE Selected Encounter This section includes the information on record at DC for the Encounter. Date/Time Encounter Type Encounter Reason Provider Source Description Apr 23, 2022 QNHP OL DIG TELEPHONE/MEDICIN ICD-10-CM Z51.81 [facility] INA 03:41 PM ASSMT&MGMT 5-10 E Encounter for therapeutic drug level monitoring with Provider Comments: Encounter For Therapeutic Drug Level Monitoring (ICD-10-CM Z51.81) IHE Encounter Template Text not used by [facility] Assessments - Encounter Diagnoses This section includes the primary and secondary diagnoses documented for the Encounter. 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 This section includes future appointments and future orders which are active, pending orscheduled.Future Appointments This section includes appointments that were scheduled to occur 6 months from the date of the Encounter, up to a maximum of 20 appointments. The data comes from all DC treatment facilities. Appointment Date/Time Appointment Type Appointment Facili ty Name Apr 29, 2022 08:15 AM AMBULATORY - NONE [facility] May 05, 2022 08:30 AM AMBULATORY - SURGERY [facility] May 20, 2022 08:00 AM AMBULATORY - [facility]ICINE [facility] May 20, 2022 08:30 AM AMBULATORY - [facility]IC[facility] May 20, 2022 09:30 AM AMBULATORY - NONE [facility] May 20, 2022 10:30 AM AMBULATORY - [facility]ICINE [facility] May 23, 2022 02:45 PM AMBULATORY - SURGERY [facility] Jun 17, 2022 08:00 AM AMBULATORY - NONE [facility] Jun 17, 2022 09:00 AM AMBULATORY - MEDICINE [facility] Jun 17, 2022 09:30 AM AMBULATORY - MEDICINE [facility] Active, Pending, and Scheduled Orders This section includes a listing of several types of active, pending, and scheduled orders, including clinic medications orders, diagnostic test orders, procedure orders and consult orders; where the start date of the order is 45 days before the date of the Encounter or 45 days after the date of the Encounter. The data comes from all DC treatment [facility]. Test Date/Time Test Type Test Details Facility Name Mar 25, 2022 12:00 Laboratory - COMPREHENSIVE METABOLIC [facility] [place] AM Chemistry Order PANEL+MG PLASMA ONCO SP ONCE Mar 25, 2022 12:00 Laboratory - CBC & DIFF BLOOD SP [facility] AM Chemistry Order Jun 06, 2022 06:00 Laboratory - COVID-19 DIAGNOSTIC PANEL [facility] AM Chemistry Order (CEPHEID) NASOPHARYNGEAL SWAB SP ONCE Jun 06, 2022 06:00 Laboratory - PROTHROMBIN TIME/INR [facility] AM Chemistry Order PLASMA SP ONCE Lab [...] Range Comment May 20, 2022 09:03 AM [facility] PT/INR(ANTICOAG) Speci men Type: PLASMA No comment enter ed. Ordering Provid er: CATALINA HEAD Report Released Date/Time: Apr 23, 2022 03:52 PM Reporting Lab: [facility] [id number] Performing Lab: [facility] [address] .INR 2.1 H 0.8-1.1 .PT 24.9 H 9.4-12.5 May 20, 2022 [facility] COMPREHENSIVE METABOLIC Spec imen Type: PLASMA 09:03 AM PANEL+MG No comment enter ed. Ordering Provid er: LILI GARCIA Report Released Date/Time: Feb 17, 2022 11:17 AM Reporting Lab: [facility] [address] Performing [facility]: [facility] [address] CREATININE 1.0 0.7-1.2 UREA NITROGEN 13 8-26 GLUCOSE 98 70-100 SODIUM 141 136-145 POTASSIUM 4.0 3.5-5.1 CHLORIDE 110 H 98-107 CO2 26 22-29 CALCIUM 8.9 8.4-10.2 PROTEIN,TOTAL 6.7 6.0-8.3 ALBUMIN 3.8 3.5-5.2 BILIRUBIN, TOTAL 1.0 0.2-1.2 MAGNESIUM 2.1 1.6-2.6 ANION GAP 5 5-15 ALKALINE PHOSPHATASE 68 40-150 ALT/SGPT 15 <55 AST/SGOT 20 <34 CREAT EGFR(CKD-EPI) 78 >60 May 20, 2022 09:03 AM [facility] CBC & DIFF Specim en Type: BLOOD Comment: Automa rosalba Differential Performed Ordering Provid er: LILI GARCIA Report Released Date/Time: Feb 17, 2022 11:17 AM Reporting Lab: [facility] [address] Performing Lab: [facility] [address] WBC 4.78 4.0-11.0 RBC 4.19 L 4.6-6.2 [...] GRAN 0.02 0-0.1 Apr 22, 2022 10:28 [facility] PT/INR(ANTICOAG) Specimen Type: PLASMA AM No comment enter ed. Ordering Provid er: LISETTE LY Report Released Date/Time: Mar 21, 2022 12:27 PM Reporting Lab: [facility] [address] Performing Lab: [facility] [address] .INR 2.0 H 0.8-1.1 .PT 22.7 H 9.4-12.5 Apr 22, 2022 10:27 AM [facility] PSA Specim en Type: SERUM No comment enter ed. Ordering Provid er: CLAYTON ROLLE Report Released Date/Time: Apr 04, 2022 09:04 AM Reporting Lab: [facility] [address] Performing Lab: [facility] [address] PSA 0.01 <4.00 Apr 22, 2022 10:27 [facility] HEMOGLOBIN A1C Specimen Type: BLOOD AM No comment enter ed. Ordering Provid er: CLAYTON ROLLE Report Released Date/Time: Apr 04, 2022 09:04 AM Reporting Lab: [facility] [address] Performing Lab: [facility] [address] HEMOGLOBIN A1C 6.1 H 4.0-6.0 Apr 22, 2022 [facility] LIPID PANEL,NON-FASTING Spec imen Type: PLASMA 10:27 AM No comment enter ed. Ordering Provid er: CLAYTON ROLLE Report Released Date/Time: Apr 04, 2022 09:04 AM Reporting Lab: [facility] [address] Performing Lab: [facility] [address] CHOLESTEROL 194 <199 .HDL 55 >40 LDL CALCULATION 112 H <99 VLDL CALCULATION 27 <29 NON HDL CHOLESTEROL 139 H <129 TRIG(NON FASTING) 136 <149 Apr 22, 2022 [facility] COMPREHENSIVE METABOLIC Spec imen Type: PLASMA 10:27 AM PANEL+MG No comment enter ed. Ordering Provid er: LILI GARCIA Report Released Date/Time: Feb 17, 2022 11:17 AM Reporting Lab: [facility] [address] Performing Lab: [facility] [address] CREATININE 1.0 0.7-1.2 UREA NITROGEN 17 8-26 GLUCOSE 96 74-100 SODIUM 139 136-145 POTASSIUM 4.1 3.5-5.1 CHLORIDE 108 H 98-107 CO2 26 22-29 CALCIUM 9.4 8.4-10.2 PROTEIN,TOTAL 6.9 6.0-8.3 ALBUMIN 3.9 3.5-5.2 BILIRUBIN, TOTAL 0.8 0.2-1.2 MAGNESIUM 2.0 1.6-2.6 ANION GAP 5 5-15 ALKALINE PHOSPHATASE 68 40-150 ALT/SGPT 15 <55 AST/SGOT 22 <34 CREAT EGFR(CKD-EPI) 78 >60 Apr 22, 2022 10:27 AM [facility] CBC & DIFF Specim en Type: BLOOD Comment: Automa rosalba Differential Performed Ordering Provid er: LILI GARCIA Report Released Date/Time: Feb 17, 2022 11:17 AM Reporting Lab: [facility] [phone] Performing Lab: [facility] [address] WBC 4.55 4.0-11.0 RBC 4.32 L 4.6-6.2 [...] smoking and tobacco-related health factors from the DC facility where the Encounter took place.Current Smoking Status This section includes the most current smoking, or tobacco-related health factor, from the DC facility where the Encounter took place. Date/Time Current Smoking Status Comment Facility Apr 04, 2022 08:30 AM VA-TOBACCO NEVER USED [facility] Tobacco Use History This section includes a history of the smoking, or tobacco- related health factors, that were collected on or before the date of the Encounter. The data comes from the DC facility where the Encounter took place. Date/Time Smoking Status/Tobacco Use Comment [facility] May 15, 2021 10:00 AM VA-TOBACCO NEVER USED [facility] Oct 05, 2019 10:05 AM DC-TOBACCO NEVER USED [facility] Oct 20, 2018 12:28 PM INPT NO TOBACCO USE IN LAST 30 DAYS [facility] Sep 15, 2018 01:21 PM VA-TOBACCO NEVER USED [facility] Aug 11, 2017 08:54 AM LIFETIME NON-TOBACCO USER [facility] Jul 08, 2016 08:07 AM LIFETIME NON-TOBACCO USER [facility] May 09, 2015 02:31 PM LIFETIME NON-TOBACCO USER [facility] Apr 14, 2014 08:41 AM LIFETIME NON-TOBACCO USER [facility] Jan 06, 2007 08:51 AM LIFETIME NON-TOBACCO USER [facility] Radiology Reports: +/- 30 days of the [...] the Encounter. The data comes from all DC treatment facilities. Date/Time Radiology Report Provider Source Apr 29, 2022 08:32 CT (C) CHEST (P): HEIDI EDWARDS [facility] AM RENETTAAIDANELLE [id number] -[birth year] 3 M Exm Date: APR 29, 2022@08:32 Req Phys: CLAYTON ROLLE Loc: [facility] PACT CREAM 4E (Req'g Loc) Img Loc: CT IMAGING Service: Unknown (Case [id number] COMPLETE) CT (C) CHEST W/O CONTRAST (C T Detailed) CPT:27230 Reason for Study: follow up pnemonia Clinical History: pneumonia in lingula seen on CT scan at [place] 2021, s/p antibiotics with some residual symptoms, f/u fo r resolution IS NOT under investigation for COVID-19 or is COVID-19 negative Defer to radiologist for final CT protocol. Responsible provider name and phone number to n otify for critical findings if other than user placing the order a nd pager listed below: User placing orders pager: [phone] LAST 3: Collection DT Specimen Test Name [...] PLASMA ESTIMATED GFR(eGF >60 Ref: >=60 Allergies: ([place] only) DIAL SOAP (Mar 25, 2007) NAPROXEN (February 05, 2011 ) Report Status: Verified Date Reported: APR 30, 2022 Date Verified: APR 30, 2022 Digital Project Manager E-Sig:/ES/HEIDI EDWARDS MD Report: Exam: CT chest without intravenous contrast, History: Follow-up pneumonia. History of pneumo mikal in the lingula on CT scan at [facility] February 2022. Status pos t antibiotics. Comparison: [...] Primary Interpreting Staff: HEIDI EDWARDS MD, RADIOLOGIST (Digital Project Manager) /BJB Apr 22, 2022 09:24 FOOT RIGHT 3 VIEWS OR MORE: TIMBO CONTRERAS [facility] THOM [id number] -[birth year] M Ex Date: APR 22, 2022@09:24 Req Phys: RUEL JESUS Pat Loc: [facility] P OD EDIN CONSULT Img Loc: MAIN X-RAY Service: Unknown (Case [id number] COMPLETE) FOOT RIGHT 3 VIEWS OR MORE ( RAD Detailed) CPT:55553 Proc Modifiers : RIGHT, WEIGHT BEARING Reason for Study: Pain Clinical History: [place] IS NOT under investigation for COVID-19 or is COVID-19 negative Posterior heel pain. Responsible provider name and phone number to notify for critical findings if other than user placing the order and pager listed below: User placing orders pager: [phone] LAST CREATININE 1.0 (02/17/22) Report Status: Verified Date Reported: APR 22, 2022 Date Verified: APR 22, 2022 Digital Project Manager E-Sig:/ES/TIMBO CONTRERAS DO Report: EXAMINATION: FOOT RIGHT [...] Primary Interpreting Staff: TIMBO CONTRERAS DO, RADIOLOGIST (Digital Project Manager) /DDS Encounter Notes: All associated encounter notes This section contains the clinical notes associated to the Encounter. Date/Time Encounter Note(s) Provider Source Apr 23, 2022 03:43 PM PHARMACY OUTPATIENT MEDICATION MGT NOTE: CATALINA KAM [facility] LOCAL TITLE: PHARMACY ANTICOAGULATION CLINIC F/ U STANDARD TITLE: PHARMACY OUTPATIENT MEDICATION M GT NOTE DATE OF NOTE: APR 23, 2022@15:43 ENTRY DATE: APR 23, 2022@15:43:51 AUTHOR: CATALINA HEAD EXP COSIGNER: URGENCY: STATUS: COMPLETED PHARMACY ANTICOAGULATION CLINIC F/U Has ADD ENDA Indication: Afib Secondary Indication: - Dx with [...] home phone. Care Coordination: - Local Lab: [facility] Direct P: [phone]; F: [phone] , F: [phone] *[facility] labs valid: 03/27/21-09/23/21, new consult placed 04/23/22 SUBJECTIVE/OBJECTIVE: Assessment completed as chart review; pt was not interviewed. Warfarin dose: 7.5mg TuTh & 5mg all other days ( 40mg/wk); AM Collection DT *INR mg in last 7 days 04/22/2022 10:28 PLASM 2.0 40 letter 03/20/2022 local 2.05 40 letter 02/18/2022 local 2.19 40 letter 01/21/2022 local 2.1 40 01/07/2022 local 1.62 40 12/10/2021 local 2.25 40 letter 11/26/2021 09:07 BLOOD 1.8 40 letter + 10/29/2021 09:12 PLASM 2.2 40 letter Other Recent Labs Collection DT Spec WBC HGB HCT PLT MCV NEUT LYMP 02/17/2022 08:35 BLOOD 5.24 14.6 43.5 202 99.5 5 9.3 24.4 10/29/2021 09:12 BLOOD 6.12 14.1 42.1 188 100.0 66.3 16.8 05/28/2021 09:15 BLOOD 4.25 14.2 41.6 216 99.3 5 6.1 25.4 02/28/2021 08:30 BLOOD 4.08 13.5 40.9 L 191 100. 0 52.5 28.4 ASSESSMENT/PLAN: Therapeutic INR. REcheck in 4 weeks with other l abs. Will request [facility] renewal; appears it 2021 - Warfarin dose: CONTINUE 7.5mg TuTh & 5mg all other days (40mg/wk) - Next INR: 04/22/22 at [facility] 9:30 w/other labs ([facility] local lab) - Rx assessed - Letter sent - [facility] lab approval req 04/23/22 Time Spent: 10 min /mustapha/ CATALINA HEAD [facility] Clinical Implant Coordinator Signed: 04/23/2022 15:57 04/23/2022 ADDENDUM STATUS: COMPLETED Collection DT Spec WBC HGB HCT PLT MCV NEUT LYMP 04/22/2022 10:27 BLOOD 4.55 14.5 43.0 211 99.5 5 2.6 26.8 02/17/2022 08:35 BLOOD 5.24 14.6 43.5 202 99.5 5 9.3 24.4 10/29/2021 09:12 BLOOD 6.12 14.1 42.1 188 100.0 66.3 16.8 05/28/2021 09:15 BLOOD 4.25 14.2 41.6 216 99.3 5 6.1 25.4 Hgb/PLT stable. Pt followed by Hem/Onc /es/ [facility]AL[facility] HEAD [facility] Clinical Implant Coordinator Signed: 04/23/2022 15:58
--- OUTSIDE RECORDS SUMMARY | 2022-06-06 12:07 | XMS_ITS | Encounter Summary ---
:1945 Author Organization Department [facility] rs Address [address] [place] [id number] Support Name Relationship Address Phone Arti CORONEL Unavailable [address] [place] [address] ADITYA MALIN Unavailable [address] [place] [id number] Insurance Providers: All historical and current Section [...] MEDICARE MEDICARE PART May 15, PART A [id number] 800 HOMER HUNTER (WNR) (M) A 2008 [id number] [phone] ,ELLE MEDICARE MEDICARE PART May 15, PART B [id number] 800 HOMER HUNTER (WNR) (M) B 2008 [id number] [phone] ,ELLE Selected Encounter This section includes the information on record at [place] for the Encounter. Date/Time Encounter Type Encounter Reason Provider Source Description Apr 24, 2022 07:14 Outpatient [facility] AM Encounter CONSULT IHE Encounter Template Text not used [...] 20, 2022 08:00 AM AMBULATORY - MEDICINE [facility] May 20, 2022 08:30 AM [facility]ULATORY - [facility]IC[facility] May 20, 2022 09:30 AM AMBULATORY - NONE [facility] May 20, 2022 10:30 AM [facility]ATORY - [facility] May 23, 2022 02:45 PM AMBULATORY - SURGERY [facility] Jun 17, 2022 08:00 AM AMBULATORY - NONE [facility] Jun 17, 2022 09:00 AM AMBULATORY - MEDICINE [facility] Jun 17, 2022 09:30 AM AMBULATORY - MEDICINE [facility] Active, Pending, and Scheduled Orders This section includes a listing of several types of active, pending, and scheduled orders, including clinic medications orders, diagnostic test orders, procedure orders and consult orders; where the start date of the order is 45 days before the date of the Encounter or 45 days after the date of the Encounter. The data comes from all [place] treatment facilities. Test Date/Time Test Type Test Details Facility Name Mar 25, 2022 12:00 Laboratory - COMPREHENSIVE METABOLIC [facility] AM Chemistry Order PANEL+MG PLASMA ONCO SP ONCE Mar 25, 2022 12:00 Laboratory - CBC & DIFF BLOOD SP [facility] AM Chemistry Order Jun 06, 2022 06:00 Laboratory - COVID-19 DIAGNOSTIC PANEL [facility] AM Chemistry Order (CEPHEID) NASOPHARYNGEAL SWAB SP ONCE Jun 06, 2022 06:00 Laboratory - PROTHROMBIN TIME/INR [facility] AM Chemistry Order PLASMA SP ONCE [...] Range Comment May 20, 2022 09:[address] [facility] PT/INR(ANTICOAG) Speci men Type: PLASMA No comment enter ed. Ordering Provid er: CATALINA HEAD Report Released Date/Time: Apr 23, 2022 03:52 PM Reporting Lab: [facility] [address] [facility] [address] Performing Lab: [facility] [address] .INR 2.1 H 0.8-1.1 .PT 24.9 H 9.4-12.5 May 20, 2022 [facility] COMPREHENSIVE METABOLIC Spec imen Type: PLASMA 09:03 AM PANEL+MG No comment enter ed. Ordering Provid er: LILI GARCIA Report Released Date/Time: Feb 17, 2022 11:17 AM Reporting Lab: [facility] [address] Performing Lab: [facility] [address] CREATININE 1.0 0.7-1.2 UREA NITROGEN 13 8-26 GLUCOSE 98 70-100 SODIUM 141 136-145 POTASSIUM 4.0 3.5-5.1 CHLORIDE 110 H 98-107 CO2 26 22-29 CALCIUM 8.9 8.4-10.2 PROTEIN,TOTAL 6.7 6.0-8.3 ALBUMIN 3.8 3.5-5.2 BILIRUBIN, TOTAL 1.0 0.2-1.2 MAGNESIUM 2.1 1.6-2.6 ANION GAP 5 5-15 ALKALINE PHOSPHATASE 68 40-150 ALT/SGPT 15 <55 AST/SGOT 20 <34 CREAT EGFR(CKD-EPI) 78 >60 May 20, 2022 09:[address] [facility] CBC & DIFF Specim en Type: BLOOD Comment: Automa rosalba Differential Performed Ordering Provid er: LILI GARCIA Report Released Date/Time: Feb 17, 2022 11:17 AM Reporting Lab: [facility] [id number] Performing Lab: [facility] [address] WBC 4.78 4.0-11.0 RBC 4.19 L 4.6-6.2 [...] GRAN 0.02 0-0.1 Apr 22, 2022 10:28 [facility] PT/INR(ANTICOAG) Specimen Type: PLASMA AM No comment enter ed. Ordering Provid er: LISETTE LY Report Released Date/Time: Mar 21, 2022 12:27 PM Reporting Lab: [facility] [address] [facility] [address] Performing Lab: [facility] [address] .INR 2.0 H 0.8-1.1 .PT 22.7 H 9.4-12.5 Apr 22, 2022 10:[address] [facility] PSA Specim en Type: SERUM No comment enter ed. Ordering Provid er: CLAYTON ROLLE Report Released Date/Time: Apr 04, 2022 09:04 AM Reporting Lab: [facility] [address] [facility] [address] Performing Lab: [facility] [address] [facility] [address] PSA 0.01 <4.00 Apr 22, 2022 10:27 [facility] HEMOGLOBIN A1C Specimen Type: BLOOD AM No comment enter ed. Ordering Provid er: CLAYTON ROLLE Report Released Date/Time: Apr 04, 2022 09:04 AM Reporting Lab: [facility] [address] [facility] [address] Performing Lab: [facility] [address] [facility] [address] HEMOGLOBIN A1C 6.1 H 4.0-6.0 Apr 22, 2022 [facility] LIPID PANEL,NON-FASTING Spec imen Type: PLASMA 10:27 AM No comment enter ed. Ordering Provid er: CLAYTON ROLLE Report Released Date/Time: Apr 04, 2022 09:04 AM Reporting Lab: [facility] [address] [facility] [address] Performing Lab: [facility] [address] [facility] [address] CHOLESTEROL 194 <199 .HDL 55 >40 LDL CALCULATION 112 H <99 VLDL CALCULATION 27 <29 NON HDL CHOLESTEROL 139 H <129 TRIG(NON FASTING) 136 <149 Apr 22, 2022 [facility] COMPREHENSIVE METABOLIC Spec imen Type: PLASMA 10:27 AM PANEL+MG No comment enter ed. Ordering Provid er: LILI GARCIA Report Released Date/Time: Feb 17, 2022 11:17 AM Reporting Lab: [facility] [address] Performing Lab: [facility] [address] CREATININE 1.0 0.7-1.2 UREA NITROGEN 17 8-26 GLUCOSE 96 74-100 SODIUM 139 136-145 POTASSIUM 4.1 3.5-5.1 CHLORIDE 108 H 98-107 CO2 26 22-29 CALCIUM 9.4 8.4-10.2 PROTEIN,TOTAL 6.9 6.0-8.3 ALBUMIN 3.9 3.5-5.2 BILIRUBIN, TOTAL 0.8 0.2-1.2 MAGNESIUM 2.0 1.6-2.6 ANION GAP 5 5-15 ALKALINE PHOSPHATASE 68 40-150 ALT/SGPT 15 <55 AST/SGOT 22 <34 CREAT EGFR(CKD-EPI) 78 >60 Apr 22, 2022 10:[address] [facility] CBC & DIFF Specim en Type: BLOOD Comment: Automa rosalba Differential Performed Ordering Provid er: LILI GARCIA Report Released Date/Time: Feb 17, 2022 11:17 AM Reporting Lab: [facility] [address] Performing Lab: [facility] [address] WBC 4.55 4.0-11.0 RBC 4.32 L 4.6-6.2 [...] smoking and tobacco-related health factors from the [place] facility where the Encounter took place.Current Smoking Status This section includes the most current smoking, or tobacco-related health factor, from the [place] facility where the Encounter took place. Date/Time Current Smoking Status Comment Facility Apr 04, 2022 08:30 AM [place] NEVER USED [place] [facility] Tobacco Use History This section includes a history of the smoking, or tobacco- related health factors, that were collected on or before the date of the Encounter. The data comes from the [facility] where the Encounter took place. Date/Time Smoking Status/Tobacco Use Comment [facility] May 15, 2021 10:00 AM [place] NEVER USED [place] [facility] Oct 05, 2019 10:05 AM [place] NEVER USED [place] [facility] Oct 20, 2018 12:28 PM INPT NO TOBACCO USE IN LAST [address] [facility] Sep 15, 2018 01:21 PM [place] [facility] USER [facility] Radiology Reports: +/- 30 days of the [...] the Encounter. The data comes from all [place] treatment facilities. Date/Time Radiology Report Provider Source Apr 29, 2022 08:32 CT (C) CHEST (P): HEIDI EDWARDS [facility] [place] CORONEL [id number] [id number] M Exm Date: APR 29, 2022@08:32 Req Phys: CLAYTON ROLLE Pat Loc: [facility] PACT CREAM 4E (Req'g Loc) Img Loc: CT IMAGING Service: Unknown (Case [id number] COMPLETE) CT (C) CHEST W/O CONTRAST (C T Detailed) CPT:33609 Reason for Study: follow up pnemonia Clinical History: pneumonia in lingula seen on CT scan at [place] 2021, s/p antibiotics with some residual symptoms, f/u fo r resolution IS NOT under investigation for COVID-19 or is COVID-19 negative Defer to radiologist for final CT protocol. Responsible provider name and phone number to n otify for critical findings if other than user placing the order a nd pager listed below: User placing orders pager: [phone] LAST 3: Collection DT Specimen Test Name [...] PLASMA ESTIMATED GFR(eGF >60 Ref: >=60 Allergies: ([place] only) DIAL SOAP (Mar 25, 2007) NAPROXEN (February 05, 2011 ) Report Status: Verified Date Reported: APR 30, 2022 Date Verified: APR 30, 2022 [employer] Art[employer] E-Sig:/ES/HEIDI EDWARDS MD Report: Exam: CT chest without intravenous contrast, History: Follow-up pneumonia. History of pneumo mikal in the lingula on CT scan at [facility] February 2022. Status pos t antibiotics. [...] on PET CT imaging. Primary Interpreting Staff: HEDII EDWARDS MD, RADIOLOGIST ([employer] Artistic Director) /BJB Apr 22, 2022 09:24 FOOT RIGHT 3 VIEWS OR MORE: TIMBO CONTRERAS [facility] HOMERELLE THOM [id number] M Exm Date: APR 22, 2022@09:24 Req Phys: RUEL JESUS Pat Loc: [facility] CONSULT Img Loc: MAIN X-RAY Service: Unknown (Case [id number] COMPLETE) FOOT RIGHT 3 VIEWS OR MORE ( RAD Detailed) CPT:21269 Proc Modifiers : RIGHT, WEIGHT BEARING Reason for Study: Pain Clinical History: IS NOT under investigation for COVID-19 or is COVID-19 negative Posterior heel pain. Responsible provider name and phone number to notify for critical findings if other than user placing the order and pager listed below: User placing orders pager: [phone] LAST CREATININE 1.0 (02/17/22) Report Status: Verified Date Reported: APR 22, 2022 Date Verified: APR 22, 2022 [employer] Art[employer] E-Sig:/ES/TIMBO CONTRERAS DO Report: EXAMINATION: FOOT RIGHT [...] Primary Interpreting Staff: TIMBO CONTRERAS DO, RADIOLOGIST ([employer] Artistic Director) /DDS Encounter Notes: All associated encounter notes This section contains the clinical notes associated to the Encounter. Date/Time Encounter Note(s) Provider Source Apr 24, 2022 07:14 AM NONVA NOTE: CAL JONES [facility] LOCAL TITLE: COMMUNITY CARE-CARE COORDINATION P PAM NOTE STANDARD TITLE: NONVA NOTE DATE OF NOTE: APR 24, 2022@07:14 ENTRY DATE: APR 24, 2022@07:14:37 AUTHOR: CAL JONES EXP COSIGNER: URGENCY: STATUS: COMPLETED Community Care Consult: COMMUNITY CARE-LAB Consult No: [id number] [facility] Referral #: Chief Complaint: Warfarin pt , need INRs closer to home Next INR will be done at [facility] on 05/20 [other labs] , so approval doesn't need to start until after that does not have a caregiver Level of Care Coordination Moderate Care Coordination was determined from: Chart Review Facility Community Care Office Contact Care Coordination Point of Contact: [place] more RN Services: Basic Care Coordination Services Monitoring and coordination of Rehab/PT Service s Direct communication to referring provider Care management, if appropriate Plan: Proceed with scheduling assessed as needing moderate care coordination which may include disease management, health/wellness promotion an d education concerning this episode of care. [place] and/or caregiver provided direct c ontact information for community care department by letter. This letter assists with any follow up needs or additional requests for services. /mustapha/ CAL JONES RN Registered Nurse, Care in [facility] Signed: 04/24/2022 07:16
--- OUTSIDE RECORDS SUMMARY | 2022-06-06 12:07 | XMS_ITS | Encounter Summary ---
:1945 Author Organization Department [facility] rs Address [address] [place] [address] Support Name Relationship Address Phone Arti CORONEL Unavailable [address] [place] [address] ADITYA MALIN Unavailable [address] [place] [phone] Insurance Providers: All historical and current Section [...] MEDICARE MEDICARE PART May 15, PART B [id number] HOMER DEL VALLEIENT (WNR) (M) B 2008 [id number] [phone] ,ELLE MEDICARE MEDICARE PART May 15, PART A [id number] SHAYMOYAIDAN Paige ATIENT (WNR) (M) A 2008 [id number] [phone] ,ELLE Selected Encounter This section includes the information on record at [place] for the Encounter. Date/Time Encounter Type Encounter Reason Provider Source Description May 05, 2022 OFFICE O/P NEW PODIATRY ICD-10-CM JIGNESH PETER 08:30 AM MOD 45-59 MIN M76.61 Achilles tendinitis, right leg with Provider Comments: Achilles tendinitis, right leg IHE Encounter Template Text not used by [facility] Assessments - Encounter Diagnoses This section includes the primary and secondary diagnoses documented for the Encounter. Date/Time Primary/Secondary Diagnosis Name Provider Source Diagnosis May 05, 2022 PRIMARY Achilles JIGNESH PETER [facility] A 08:55 AM tendinitis, HCS right leg May 05, 2022 SECONDARY Short Achilles JIGNESH PETER [facility] 08:55 AM tendon HCS (acquired), left ankle Plan of Treatment: Future Appointments (+ 6 months) and Future Tests (+/- 45 days) The Plan of Treatment section includes future care activities for the patient from [facility] [place] [facility] This section includes future appointments and future orders which are active, pending orscheduled.Future Appointments This section includes appointments that were scheduled to occur 6 months from the date of the Encounter, up to a maximum of 20 appointments. The data comes from all [place] treatment facilities. Appointment Date/Time Appointment Type Appointment Facili ty Name May 20, 2022 08:00 AM AMBULATORY - MEDICINE [facility] May 20, 2022 08:30 AM AMBULATORY - MEDICINE [facility] May 20, 2022 09:30 AM AMBULATORY - NONE [facility] May 20, 2022 10:30 AM AMBULATORY - MEDICINE [facility] May 23, 2022 02:45 PM AMBULATORY - SURGERY [facility] Jun 17, 2022 08:00 AM AMBULATORY - NONE [facility] Jun 17, 2022 09:00 AM AMBULATORY - MEDICINE [facility] Jun 17, 2022 09:30 AM AMBULATORY - MEDICINE [facility] Active, Pending, and Scheduled Orders This section includes a listing of several types of active, pending, and scheduled orders, including clinic medications orders, diagnostic test orders, procedure orders and consult orders; where the start date of the order is 45 days before the date of the Encounter or 45 days after the date of the Encounter. The data comes from all [place] treatment [facility]. Test Date/Time Test Type Test Details Facility Name Mar 25, 2022 12:00 Laboratory - COMPREHENSIVE METABOLIC [facility] AM Chemistry Order PANEL+MG PLASMA ONCO SP ONCE Mar 25, 2022 12:00 Laboratory - CBC & DIFF BLOOD SP [place] [facility] AM Chemistry Order Jun 06, 2022 06:00 Laboratory - COVID-19 DIAGNOSTIC PANEL [place] [facility] AM Chemistry Order (CEPHEID) NASOPHARYNGEAL SWAB SP ONCE Jun 06, 2022 06:00 Laboratory - PROTHROMBIN TIME/INR [place] [facility] AM Chemistry Order PLASMA SP ONCE Jun 17, 2022 12:00 Laboratory - CBC & DIFF BLOOD ONCO SP [place] [facility] AM Chemistry Order ONCE Jun 17, 2022 12:00 Laboratory - COMPREHENSIVE METABOLIC [facility] AM Chemistry Order PANEL+MG PLASMA ONCO SP Jun 17, 2022 12:00 Laboratory - SEROTONIN SERUM SP ONCE [place] [facility] AM Chemistry Order Jun 17, 2022 12:00 Laboratory - [facility] AM Chemistry Order SERUM SP ONCE Lab Results: +/- 30 days of the encounter This section includes the Chemistry and Hematology Lab Results on record with [place] for the patient. Radiology Reports and Pathology Reports are provided separately, in subsequent sections.Lab Results This section contains the Chemistry/Hematology Results that were resulted 30 days before or 30 daysafter the date of the Encounter. Date/Time Source Result Type Result - Unit Interpretation Reference Range Comment May 20, 2022 09:03 AM [facility] PT/INR(ANTICOAG) Speci men Type: PLASMA No comment enter ed. Ordering Provid er: CATALINA HEAD Report Released Date/Time: Apr 23, 2022 03:52 PM Reporting Lab: [facility] [address] [facility] [place] [address] Performing Lab: [facility] [address] .INR 2.1 H 0.8-1.1 .PT 24.9 H 9.4-12.5 May 20, 2022 [facility] COMPREHENSIVE METABOLIC Spec imen Type: PLASMA 09:03 AM PANEL+MG No comment enter ed. Ordering Provid er: LILI GARCIA Report Released Date/Time: Feb 17, 2022 11:17 AM Reporting Lab: [facility] [address] [facility] [place] [address] Performing Lab: [facility] [place] [address] CREATININE 1.0 0.7-1.2 UREA NITROGEN 13 8-26 GLUCOSE 98 70-100 SODIUM 141 136-145 POTASSIUM 4.0 3.5-5.1 CHLORIDE 110 H 98-107 CO2 26 22-29 CALCIUM 8.9 8.4-10.2 PROTEIN,TOTAL 6.7 6.0-8.3 ALBUMIN 3.8 3.5-5.2 BILIRUBIN, TOTAL 1.0 0.2-1.2 MAGNESIUM 2.1 1.6-2.6 ANION GAP 5 5-15 ALKALINE PHOSPHATASE 68 40-150 ALT/SGPT 15 <55 AST/SGOT 20 <34 CREAT EGFR(CKD-EPI) 78 >60 May 20, 2022 09:03 AM [facility] CBC & DIFF Specim en Type: BLOOD Comment: Automa rosalba Differential Performed Ordering Provid er: LILI GARCIA Report Released Date/Time: Feb 17, 2022 11:17 AM Reporting Lab: [facility] [address] [facility] [place] [address] Performing Lab: [facility] [address] [facility] [place] [address] WBC 4.78 4.0-11.0 RBC 4.19 L 4.6-6.2 [...] GRAN 0.02 0-0.1 Apr 22, 2022 10:28 [facility] PT/INR(ANTICOAG) Specimen Type: PLASMA AM No comment enter ed. Ordering Provid er: LISETTE LY Report Released Date/Time: Mar 21, 2022 12:27 PM Reporting Lab: [facility] [address] [facility] [place] [address] Performing Lab: [facility] [address] [facility] [place] [address] .INR 2.0 H 0.8-1.1 .PT 22.7 H 9.4-12.5 Apr 22, 2022 10:27 AM [facility] PSA Specim en Type: SERUM No comment enter ed. Ordering Provid er: CLAYTON ROLLE Report Released Date/Time: Apr 04, 2022 09:04 AM Reporting Lab: [facility] [address] [facility] [place] [address] Performing Lab: [facility] [address] [facility] [place] [address] PSA 0.01 <4.00 Apr 22, 2022 10:27 [facility] HEMOGLOBIN A1C Specimen Type: BLOOD AM No comment enter ed. Ordering Provid er: CLAYTON ROLLE Report Released Date/Time: Apr 04, 2022 09:04 AM Reporting Lab: [facility] [address] [facility] [place] [address] Performing Lab: [facility] [address] [facility] [address] HEMOGLOBIN A1C 6.1 H 4.0-6.0 Apr 22, 2022 [facility] LIPID PANEL,NON-FASTING Spec imen Type: PLASMA 10:27 AM No comment enter ed. Ordering Provid er: CLAYTON ROLLE Report Released Date/Time: Apr 04, 2022 09:04 AM Reporting Lab: [facility] [address] [facility] [address] Performing Lab: [facility] [address] [facility] [address] CHOLESTEROL 194 <199 .HDL 55 >40 LDL CALCULATION 112 H <99 VLDL CALCULATION 27 <29 NON HDL CHOLESTEROL 139 H <129 TRIG(NON FASTING) 136 <149 Apr 22, 2022 [facility] COMPREHENSIVE METABOLIC Spec imen Type: PLASMA 10:27 AM PANEL+MG No comment enter ed. Ordering Provid er: LILI GARCIA Report Released Date/Time: Feb 17, 2022 11:17 AM Reporting Lab: [facility] [address] [facility] [address] Performing Lab: [facility] [address] [facility] [address] CREATININE 1.0 0.7-1.2 UREA NITROGEN 17 8-26 GLUCOSE 96 74-100 SODIUM 139 136-145 POTASSIUM 4.1 3.5-5.1 CHLORIDE 108 H 98-107 CO2 26 22-29 CALCIUM 9.4 8.4-10.2 PROTEIN,TOTAL 6.9 6.0-8.3 ALBUMIN 3.9 3.5-5.2 BILIRUBIN, TOTAL 0.8 0.2-1.2 MAGNESIUM 2.0 1.6-2.6 ANION GAP 5 5-15 ALKALINE PHOSPHATASE 68 40-150 ALT/SGPT 15 <55 AST/SGOT 22 <34 CREAT EGFR(CKD-EPI) 78 >60 Apr 22, 2022 10:27 AM [facility] CBC & DIFF Specim en Type: BLOOD Comment: Automa rosalba Differential Performed Ordering Provid er: LILI GARCIA Report Released Date/Time: Feb 17, 2022 11:17 AM Reporting Lab: [facility] [address] [facility] [address] Performing Lab: [facility] [address] [facility] [address] WBC 4.55 4.0-11.0 RBC 4.32 L 4.6-6.2 [...] smoking and tobacco-related health factors from the [place] facility where the Encounter took place.Current Smoking Status This section includes the most current smoking, or tobacco-related health factor, from the [place] facility where the Encounter took place. Date/Time Current Smoking Status Comment Facility Apr 04, 2022 08:30 AM [place]-TOBACCO NEVER USED [place] [facility] Tobacco Use History This section includes a history of the smoking, or tobacco- related health factors, that were collected on or before the date of the Encounter. The data comes from the [place] facility where the Encounter took place. Date/Time Smoking Status/Tobacco Use Comment [facility] May 15, 2021 10:00 AM [place] NEVER USED [place] [facility] Oct 05, 2019 10:05 AM [place]-TOBACCO [...] AM LIFETIME NON-TOBACCO USER [facility] Radiology Reports: +/- 30 days of [...] the Encounter. The data comes from all [place] treatment facilities. Date/Time Radiology Report Provider Source Apr 29, 2022 08:32 CT (C) CHEST (P): HEIDI EDWARDS [facility] AM ELLE CORONEL [id number] -[birth year] M Exm Date: APR 29, 2022@08:32 Req Phys: CALYTON ROLLE Pat Loc: [facility] PACT CREAM 4E (Req'g Loc) Img Loc: CT IMAGING Service: Unknown (Case [id number] COMPLETE) CT (C) CHEST W/O CONTRAST (C T Detailed) CPT:01268 Reason for Study: follow up pnemonia Clinical History: pneumonia in lingula seen on CT scan at [place] 2021, s/p antibiotics with some residual symptoms, f/u fo r resolution IS NOT under investigation for COVID-19 or is COVID-19 negative Defer to radiologist for final CT protocol. Responsible provider name and phone number to n otify for critical findings if other than user placing the order a nd pager listed below: User placing orders pager: [phone] LAST 3: Collection DT Specimen Test Name [...] PLASMA ESTIMATED GFR(eGF >60 Ref: >=60 Allergies: ([place] only) DIAL SOAP (Mar 25, 2007) NAPROXEN (February 05, 2011 ) Report Status: Verified Date Reported: APR 30, 2022 Date Verified: APR 30, 2022 Appetizer Packer E-Sig:/ES/HEIDI EDWARDS MD Report: Exam: CT chest without intravenous contrast, History: Follow-up pneumonia. History of pneumo mikal in the lingula on CT scan at [facility] February 2022. Status pos t antibiotics. [...] Primary Interpreting Staff: HEIDI EDWARDS MD, RADIOLOGIST (Appetizer Packer) /BJB Apr 22, 2022 09:24 FOOT RIGHT 3 VIEWS OR MORE: TIMBO CONTRERAS [facility] ELLE CORONEL [id number] -[birth year] M Exm Date: APR 22, 2022@09:24 Req Phys: RUEL JESUS Pat Loc: [facility] P OD EDIN CONSULT Img Loc: MAIN X-RAY Service: Unknown (Case [id number] COMPLETE) FOOT RIGHT 3 VIEWS OR MORE ( RAD Detailed) CPT:70262 Proc Modifiers : RIGHT, WEIGHT BEARING Reason for Study: Pain Clinical History: IS NOT under investigation for COVID-19 or is COVID-19 negative Posterior heel pain. Responsible provider name and phone number to notify for critical findings if other than user placing the order and pager listed below: User placing orders pager: [phone] LAST CREATININE 1.0 (02/17/22) Report Status: Verified Date Reported: APR 22, 2022 Date Verified: APR 22, 2022 Appetizer Packer E-Sig:/ES/TIMBO CONTRERAS DO Report: EXAMINATION: FOOT RIGHT [...] Primary Interpreting Staff: TIMBO CONTRERAS DO, RADIOLOGIST (Appetizer Packer) /DDS Encounter Notes: All associated encounter notes This section contains the clinical notes associated to the Encounter. Date/Time Encounter Note(s) Provider Source May 05, 2022 08:57 AM SURGERY NOTE: JIGNESH PETER [facility] LOCAL TITLE: JIMENEZ FRAILTY TOOL STANDARD TITLE: SURGERY NOTE DATE OF NOTE: MAY 05, 2022@08:57 ENTRY DATE: MAY 05, 2022@08:57:39 AUTHOR: JIGNESH PETER EXP COSIGNER: URGENCY: STATUS: COMPLETED FRAILTY ASSESSMENT: Risk Analysis Index (JIMENEZ) score is: 27 /mustapha/ JIGNESH PETER DPM STAFF YARD DEMURRAGE CLERK Signed: 05/05/2022 08:58 May 05, 2022 08:50 AM PODIATRY CONSULT: JIGNESH PETER [facility] LOCAL TITLE: PODIATRY CONSULT STANDARD TITLE: PODIATRY CONSULT DATE OF NOTE: MAY 05, 2022@08:50 ENTRY DATE: MAY 05, 2022@08:50:22 AUTHOR: JIGNESH PETER COSIGNER: URGENCY: STATUS: COMPLETED PODIATRY CONSULT Has ADDENDA ASSESSMENT: 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 fib, on Coumadin PLAN: From this case relating to h is posterior heel spur, tendinitis, gastroc equinus, we discussed treatment options, conserva tive and surgical, risks and benefits. Drain has been undergoing physical therapy for 4+ years, outside clinic, he has improved with stretching, but unable to reso lve the pain in his heel. Persistent pain from bump on the back of the grace l has not resolved. He is interested in surgical intervention. Surgery plan: Right posterior heel spur resection and debridem ent of Achilles tendon, gastrocnemius muscle recession PRONE + General anesthesia Recommend 2 weeks nonweightb earing, however this is not required, does require 4 weeks in CAM boot. Also dispense postop shoe for driving. I spent 45 minutes on patient care, including re viewing chart and history. With over 50% of time spent o n emid-oo-rhyj education relating to medical condi tion. CHIEF COMPLAINT: Right heel spur HISTORY OF PRESENT ILLNESS: HOMERELLE is a 76 year old MALE pres ents to the [facility]. Presents for painful heel spur, back of right heel, present for many years. Was seen at outside hospital over the years, has undergone physica l therapy, stretching of the legs. Stretches daily, this helps, but does not resolve the elena n. Has a bump on the back of the heel, this is never improved with stretching, rubs in his shoes, causes pain. OBJECTIVE: VITALS: BP: 111/74 (04/04/2022 08:20) P: 73 (04/04/2022 08:20) R: 18 (04/04/2022 08:20) T: 98.2 F [36.8 C] (04/04/2022 08:20) WT: 222.4 lb [100.88 kg] (04/04/2022 08:20) BMI: 32.0 Pain: 6 (04/04/2022 08:20) O2 Sat: 96% (04/04/2022 08:20) CREATININE 1.0 (04/22/22) INR 2.0 H (04/22/22) HGB A1C: LAB TESTS SELECTED Collection DT Specimen Test Name Result Units Re f Range 04/22/2022 10:27 BLOOD HEMOGLOBIN A1C 6.1 H % 4. 0 - 6.0 LFTs: SGOT 22 (04/22/22) SGPT 15 (04/22/22) ALLERGIES: DIAL SOAP (Mar 25, 2007) NAPROXEN (February 05, 2011) EXAMINATION: GENERAL: Alert and oriented VASCULAR: + DP and PT pulses NEUROLOGICAL: Sensation intact in right foot to light touch Strength 5/5 in the right and left foot, equal b ilaterally MUSCULOSKELETAL: Prominent nodule posterior a spect right heel, no masses or dells in the Achilles tendon otherwise. Ankle dorsiflexion to neutral with foot held rectus and knee extended DERMATOLOGICAL: Skin intact no open wounds /es/ JIGNESH PETER DPM STAFF YARD DEMURRAGE CLERK Signed: 05/05/2022 08:55 05/05/2022 ADDENDUM STATUS: COMPLETED Past Medical History: Active problems - Computerized Problem List is t he source for the followin. Hearing Loss, Bilateral 2. Hyperlipidemia 3. Carcinoma of prostate (SNOMED CT 817677910) - S/P HIFU (09/2007 [place]) - 01/25 RRP 4. Osteoarthritis of knee (SNOMED CT 444026288) 5. Carcinoid tumor (SNOMED CT 546152400) 6. Atrial fibrillation (SNOMED CT 81626539) - Paroxysmal 06/23 and 12/24 CHADS 2 score 0 7. Post Vit Detachment 8. Health Maintenance - colonoscopy 2006, next due 2016 9. Pain in limb - knee pain 10. Impotence 11. Solitary nodule of lung 12. Colonoscopy normal - 2000 next rec 2016 13. High risk drug monitoring status 14. Long-term current use of anticoagulant Review of System: General: Alert HEENT: negative Cardiovascular: AFIB, on coumadin Lungs: negative GI: negative : prostate cancer Neuro: negative MSK: right heel pain Hem: couadmin use Lymphatics: negative Psych: negative Endocrine: negative /mustapha/ JIGNESH PTEER DPM STAFF YARD DEMURRAGE CLERK Signed: 05/05/2022 08:57 05/05/2022 ADDENDUM STATUS: COMPLETED listed for right achilles tendon and bon e spur debridement, gastrocnemius recession with Dr. Peter. is on warfarin- Per Dr. Peter goal INR on DOS is to be 1.2. Import Export Manager alerted that would like surgery s oon - options for soonest availability 05/29 or 06/06 Import Export Manager called . No answer. left vm on joe e line, unable to leave vm on cell due to inbox being full. Will await call back. /mustapha/ DEBI CAIN RN REGISTERED STAFF NURSE Signed: 05/05/2022 14:05 05/08/2022 ADDENDUM STATUS: COMPLETED Contacted patient to schedule right achi lles tendon and bone spur debridement, gastrocnemius recession with Dr. Peter. Tentatively scheduled patient's surgery on 06/06- confirmed date works with and provider . Agreed upon date Drain provided telegraphic typewriter installer's direct number if issues occur and patient desires to change his surgical date Labs drawn:04/22 Reviewed with and are WSL Finalization of surgical date based on patient's successful completion of required pre-operative appointments. Outpatient surgery requireme nts of a bicycle taxi driver/overnight supervision was discussed. Patient aware that surgery t tara is tentative and he will be contacted day prior with report time- this will be his Planned date of surgery is clinically appropriat e per surgeon. Patient instructed to call if urgent need arises. electi ve surgery Medical clearance apt: Scheduled pre surgery physical (med preop) with ekg prior on 05/20 Anesthesia consult placed - as directed by noman kraus Blood thinners:warfarin- consult placed and [facility] is aware someone will be reaching out to him with instructions for surger y from pharmacy Implantable devices:no Any equipment needs:recommen ded being NWB for 2 weeks- total of 4 weeks in a cam boot. Drain has crutches, would like a knee sc ooter. Explained process and mailed out pt info card to get device prior to s urgery medications: Safety related to medicatio ns is important for safe surgery and a good outcome; thus, it is important for you to know all of your medications at the time of your preop physical. Covid 19 risk and testing po licy reviewed with . voiced he would like to proceed with surgery. DOS testing- Covid 19 testing Will have rapid test DOS Appointment letter mailed to patient. Patient to call with any questions or concerns. SURGERY COORDINATOR PRE-PROCEDURE NOTE Education reviewed with over the phone. Education mailed with appt letter and surgical scrubs Surgical Procedure:right achilles tendon and bon e spur debridement, gastrocnemius recession Surgery Date:06/06 Consent:DOS ALLERGIES: see cover sheet PREOPERATIVE ASSESSMENT: H&P:05/20 EK/6 LABS:04/22 PHYSICAL EVALUATION Level of Consciousness/mental status intact:yes Medication Management:self Diabetes:no Obstructive Airway:no Medical devices:no MDRO/Contact Precautions/isolation: COVID19:call will get a phone call prior to surg yaima for symptom screen Reviewed visitor policy with patient/family. made aware that covid 19 testing will be done on DOS CARE TRANSITION/PLAN OF CARE: Out Patient Surgery: patient aware he will get c all day prior to review case order/check in time Bottle Caser: 24-hour supervision (name and discharge plan):shelby leiva PREOP INSTRUCTIONS: No food 8 hours prior to check in time, clear li quids(water, coffee NO cream) okay up until 2 hours prior to check in time Antibacterial showers/scrubs to be completed the evening prior to surgery: Location:Right lower extremity Scrub instructions: twice evening prior 4 hours apart Insturcted not to bring meds, jewelry, money or valuables MEDICATION INSTRUCTIONS: He will follow med instructions provided at preo p appt with med preop provider. As well as pharmacy regarding warfarin No NSAIDS/ Supplements 7 days prior to surgery p er PODIATRY Written instrcutions were provided and reviewed with patient. POST-OP INSTRUCTIONS: Pain scale reviewed and discussed ways to contro l pain Importance of icing and elevating extremity Signs of infection and other reasons to call the clinic, numbers provided Dressing Movement restrictions Equipment: crutches/ knee scooter DISCHARGE INSTRUCTIONS: Follow discharge instructions given upon dischar ge from the hospital Follow up:per Dr. peter PRINTED MATERIALS The following perioperative materials were discu ssed. Printed materials given and written preoperative instructions given to patient: Surgery folder with surgery instructions, coordi nator contact information, illustrated instructions for preop scrubs, posto p pain management booklet, dvt pamphlet, covid19 and surgery handout, ankle surgery booklet PATIENT/FAMILY RESPONSE(OUTCOME) Patient states understanding and has contact inf ormation for follow-up or additional concerns. /mustapha/ DEBI CAIN RN REGISTERED STAFF NURSE Signed: 05/08/2022 12:13 05/08/2022 ADDENDUM STATUS: COMPLETED is ten scheduled for right achilles tend on and bone spur debridement, gastrocnemius recession on 06/[address] delayed dvt/antibiotic orders Please place post op follow up orders Thank you /mustapha/ DEBI CAIN RN REGISTERED STAFF NURSE Signed: 05/08/2022 12:37 Receipt Acknowledged By: * AWAITING SIGNATURE * JIGNESH PETER
--- OUTSIDE RECORDS SUMMARY | 2022-06-06 12:08 | XMS_ITS | Encounter Summary ---
:1945 Author Organization Department [facility] rs Address [address] [place] [id number] Support Name Relationship Address Phone Arti CORONEL Unavailable [address] [place] [address] ADITYA MALIN Unavailable [address] [place] [phone] Insurance Providers: All historical and current Section [...] MEDICARE MEDICARE PART May 15, PART A [id number] HOMER HUNTER (WNR) (M) A 2008 [id number] [phone] ,ELLE MEDICARE MEDICARE PART May 15, PART B [id number] 800 HOMER HUNTER (WNR) (M) B [id number] [phone] ,ELLE Selected Encounter This section includes the information on record at [place] for the Encounter. Date/Time Encounter Type Encounter Description Reason Provider Source May 12, 2022 12:49 Outpatient Encounter PODIATRY PM IHE Encounter Template Text not used by MA Plan of Treatment: Future Appointments (+ 6 [...] 20, 2022 08:30 AM AMBULATORY - MEDICINE [facility] May 20, 2022 09:30 AM AMBULATORY - NONE [facility] May 20, 2022 10:30 AM AMBULATORY - MEDICINE [facility] May 23, 2022 02:45 PM AMBULATORY - SURGERY [facility] Jun 17, 2022 08:00 AM AMBULATORY - NONE [facility] Jun 17, 2022 09:00 AM AMBULATORY - MEDICINE [facility] Jun 17, 2022 09:30 AM AMBULATORY - MEDICINE [facility] Active, Pending, and Scheduled Orders This section includes a listing of several types of active, pending, and scheduled orders, including clinic medications orders, diagnostic test orders, procedure orders and consult orders; where the start date of the order is 45 days before the date of the Encounter or 45 days after the date of the Encounter. The data comes from all [place] treatment facilities. Test Date/Time Test Type Test Details Facility Name Jun 06, 2022 06:00 Laboratory - COVID-19 DIAGNOSTIC PANEL [facility] AM Chemistry Order (CEPHEID) NASOPHARYNGEAL SWAB SP ONCE Jun 06, 2022 06:00 Laboratory - PROTHROMBIN TIME/INR [facility] AM Chemistry Order PLASMA SP ONCE Jun 17, 2022 12:00 Laboratory - CBC & DIFF BLOOD ONCO SP [facility] AM Chemistry Order ONCE Jun 17, 2022 12:00 Laboratory - COMPREHENSIVE METABOLIC [facility] AM Chemistry Order PANEL+MG PLASMA ONCO SP Jun 17, 2022 12:00 Laboratory - SEROTONIN SERUM SP ONCE [facility] AM Chemistry Order Jun 17, 2022 12:00 Laboratory - CHROMOGRANIN A(ROSE) [facility] AM Chemistry Order SERUM SP ONCE Lab Results: +/- 30 days of the encounter This section includes the Chemistry and Hematology Lab Results on record with MA for the patient. Radiology Reports and Pathology Reports are provided separately, in subsequent sections.Lab Results This section contains the Chemistry/Hematology Results that were resulted 30 days before or 30 daysafter the date of the Encounter. Date/Time Source Result Type Result - Unit Interpretation Reference Range Comment May 20, 2022 09:03 AM [facility] PT/INR(ANTICOAG) Speci men Type: PLASMA No comment enter ed. Ordering Provid er: CATALINA HEAD Report Released Date/Time: Apr 23, 2022 03:52 PM Reporting Lab: [facility] [id number] Performing Lab: [facility] [address] .INR 2.1 H 0.8-1.1 .PT 24.9 H 9.4-12.5 May 20, 2022 [facility] COMPREHENSIVE METABOLIC Spec imen Type: PLASMA 09:03 AM PANEL+MG No comment enter ed. Ordering Provid er: LILI GARCIA Report Released Date/Time: Feb 17, 2022 11:17 AM Reporting Lab: [facility] [address] Performing Lab: [facility] [address] CREATININE 1.0 0.7-1.2 UREA NITROGEN 13 8-26 GLUCOSE 98 70-100 SODIUM 141 136-145 POTASSIUM 4.0 3.5-5.1 CHLORIDE 110 H 98-107 CO2 26 22-29 CALCIUM 8.9 8.4-10.2 PROTEIN,TOTAL 6.7 6.0-8.3 ALBUMIN 3.8 3.5-5.2 BILIRUBIN, TOTAL 1.0 0.2-1.2 MAGNESIUM 2.1 1.6-2.6 ANION GAP 5 5-15 ALKALINE PHOSPHATASE 68 40-150 ALT/SGPT 15 <55 AST/SGOT 20 <34 CREAT EGFR(CKD-EPI) 78 >60 May 20, 2022 09:03 AM [facility] CBC & DIFF Specim en Type: BLOOD Comment: Automa rosalba Differential Performed Ordering Provid er: LILI GARCIA Report Released Date/Time: Feb 17, 2022 11:17 AM Reporting Lab: [facility] [id number] Performing Lab: [facility] [address] WBC 4.78 4.0-11.0 RBC 4.19 L 4.6-6.2 [...] GRAN 0.02 0-0.1 Apr 22, 2022 10:28 [facility] PT/INR(ANTICOAG) Specimen Type: PLASMA AM No comment enter ed. Ordering Provid er: LISETTE LY Report Released Date/Time: Mar 21, 2022 12:27 PM Reporting Lab: [facility] [address] [facility] [address] [facility] [address] .INR 2.0 H 0.8-1.1 .PT 22.7 H 9.4-12.5 Apr 22, 2022 10:27 AM [facility] PSA Specim en Type: SERUM No comment enter ed. Ordering Provid er: CLAYTON ROLLE Report Released Date/Time: Apr 04, 2022 09:04 AM Reporting Lab: [facility] [address] [facility] [address] Performing Lab: [facility] [address] PSA 0.01 <4.00 Apr 22, 2022 10:27 [facility] HEMOGLOBIN A1C Specimen Type: BLOOD AM No comment enter ed. Ordering Provid er: CLAYTON ROLLE Report Released Date/Time: Apr 04, 2022 09:04 AM Reporting Lab: [facility] [address] [facility] [address] Performing Lab: [facility] [address] [facility] [address] HEMOGLOBIN A1C 6.1 H 4.0-6.0 Apr 22, 2022 [facility] LIPID PANEL,NON-FASTING Spec imen Type: PLASMA 10:27 AM No comment enter ed. Ordering Provid er: CLAYTON ROLLE Report Released Date/Time: Apr 04, 2022 09:04 AM Reporting Lab: [facility] [address] [facility] [address] Performing Lab: [facility] [address] CHOLESTEROL 194 <199 .HDL 55 >40 LDL CALCULATION 112 H <99 VLDL CALCULATION 27 <29 NON HDL CHOLESTEROL 139 H <129 TRIG(NON FASTING) 136 <149 Apr 22, 2022 [facility] COMPREHENSIVE METABOLIC Spec imen Type: PLASMA 10:27 AM PANEL+MG No comment enter ed. Ordering Provid er: LILI GARCIA Report Released Date/Time: Feb 17, 2022 11:17 AM Reporting Lab: [facility] [address] Performing Lab: [facility] [address] CREATININE 1.0 0.7-1.2 UREA NITROGEN 17 8-26 GLUCOSE 96 74-100 SODIUM 139 136-145 POTASSIUM 4.1 3.5-5.1 CHLORIDE 108 H 98-107 CO2 26 22-29 CALCIUM 9.4 8.4-10.2 PROTEIN,TOTAL 6.9 6.0-8.3 ALBUMIN 3.9 3.5-5.2 BILIRUBIN, TOTAL 0.8 0.2-1.2 MAGNESIUM 2.0 1.6-2.6 ANION GAP 5 5-15 ALKALINE PHOSPHATASE 68 40-150 ALT/SGPT 15 <55 AST/SGOT 22 <34 CREAT EGFR(CKD-EPI) 78 >60 Apr 22, 2022 10:27 AM [facility] CBC & DIFF Specim en Type: BLOOD Comment: Automa rosalba Differential Performed Ordering Provid er: LILI GARCIA Report Released Date/Time: Feb 17, 2022 11:17 AM Reporting Lab: [facility] [address] Performing Lab: [facility] [address] WBC 4.55 4.0-11.0 RBC 4.32 L 4.6-6.2 [...] smoking, or tobacco-related health factor, from the [place] facility where the Encounter took place. Date/Time Current Smoking Status Comment Facility Apr 04, 2022 08:30 AM [place]-TOBACCO NEVER USED [place] [facility] Tobacco Use History This section includes a history of the smoking, or tobacco- related health factors, that were collected on or before the date of the Encounter. The data comes from the [facility] where the Encounter took place. Date/Time Smoking Status/Tobacco Use Comment [facility] May 15, 2021 10:00 AM [place]-TOBACCO NEVER USED [place] [facility] Oct 05, 2019 10:05 AM MA-TOBACCO NEVER USED [place] [facility] Oct 20, 2018 12:28 PM INPT NO TOBACCO USE IN LAST 30 DAYS [facility] Sep 15, 2018 01:21 PM VA-TOBACCO NEVER USED [place] [facility] Aug 11, 2017 08:54 AM LIFETIME NON-TOBACCO USER [facility] Jul 08, 2016 08:07 AM LIFETIME NON-TOBACCO USER [facility] May 09, 2015 02:31 PM LIFETIME NON-TOBACCO USER [facility] Apr 14, 2014 08:41 AM LIFETIME NON-TOBACCO USER [facility] Jan 06, 2007 08:51 AM LIFETIME NON-TOBACCO USER [facility] Radiology Reports: +/- 30 days of [...] the Encounter. The data comes from all [place] treatment facilities. Date/Time Radiology Report Provider Source Apr 29, 2022 08:32 CT (C) CHEST (P): HEIDI EDWARDS [facility] AM ELLE CORONEL [id number] -[phone] M Exm Date: APR 29, 2022@08:32 Req Phys: SARIAHCLAYTON Pat Loc: [facility] PACT CREAM 4E (Req'g Loc) Img Loc: CT IMAGING Service: Unknown (Case [id number] COMPLETE) CT (C) CHEST W/O CONTRAST (C T Detailed) CPT:52833 Reason for Study: follow up pnemonia Clinical History: pneumonia in lingula seen on CT scan at [place] 2021, s/p antibiotics with some residual symptoms, f/u fo r resolution [facility] IS NOT under investigation for COVID-19 or is COVID-19 negative Defer to radiologist for final CT protocol. Responsible provider name and phone number to n otify for critical findings if other than user placing the order a nd pager listed below: User placing orders pager: [phone] LAST 3: Collection DT Specimen Test Name [...] PLASMA ESTIMATED GFR(eGF >60 Ref: >=60 Allergies: ([place] only) DIAL SOAP (Mar 25, 2007) NAPROXEN (February 05, 2011 ) Report Status: Verified Date Reported: APR 30, 2022 Date Verified: APR 30, 2022 Water Proofer E-Sig:/ES/HEIDI EDWARDS MD Report: Exam: CT chest without intravenous contrast, History: Follow-up pneumonia. History of pneumo mikal in the lingula on CT scan at [facility] February 2022. Status pos t antibiotics. [...] Primary Interpreting Staff: HEDII EDWARDS MD, RADIOLOGIST (Water Proofer) /BJB Apr 22, 2022 09:24 FOOT RIGHT 3 VIEWS OR MORE: TIMBO CONTRERAS [facility] [place] CORONEL [id number] -[birth year] M Exm Date: APR 22, 2022@09:24 Req Phys: RUEL JESUS Pat Loc: [facility] P OD EDIN CONSULT Img Loc: MAIN X-RAY Service: Unknown (Case [id number] COMPLETE) FOOT RIGHT 3 VIEWS OR MORE ( RAD Detailed) CPT:78409 Proc Modifiers : RIGHT, WEIGHT BEARING Reason for Study: Pain Clinical History: [facility] IS NOT under investigation for COVID-19 or is COVID-19 negative Posterior heel pain. Responsible provider name and phone number to notify for critical findings if other than user placing the order and pager listed below: User placing orders pager: [phone] LAST CREATININE 1.0 (02/17/22) Report Status: Verified Date Reported: APR 22, 2022 Date Verified: APR 22, 2022 Water Proofer E-Sig:/ES/TIMBO CONTRERAS DO Report: EXAMINATION: FOOT RIGHT [...] Primary Interpreting Staff: TIMBO CONTRERAS DO, RADIOLOGIST (Water Proofer) /DDS Encounter Notes: All associated encounter notes This section contains the clinical notes associated to the Encounter. Date/Time Encounter Note(s) Provider Source May 12, 2022 12:50 PM REPORT OF CONTACT: SADIE AGUILAR [facility] LOCAL TITLE: APPOINTMENT SCHEDULING NOTE STANDARD TITLE: REPORT OF CONTACT DATE OF NOTE: MAY 12, 2022@12:50 ENTRY DATE: MAY 12, 2022@12:50:05 AUTHOR: SADIE AGUILAR EXP COSIGNER: URGENCY: STATUS: COMPLETED APPOINTMENT SCHEDULING NOTE Has ADDENDA Attempt to schedule return to clinic 1st Contact: Called at: A Left message Phone number left for to call back: [phone] 2nd Contact: Sent letter by regular [place] mail to address on [address] [place], [place] [address] If Stephenson calls back, schedule appointment for : [facility] VVC POD CHRISTOFER PID 06/09/22 Is the RTC marked as no later than? No /mustapha/ SADIE AGUILAR ADVANCED MSA Signed: 05/12/2022 12:52 05/14/2022 ADDENDUM STATUS: COMPLETED please assist with braxton [facility] 's vvc follow up. Stephenson called technical writer and editor to try and schedule. Thank you /mustapha/ DEBI CAIN, VIVEK REGISTERED STAFF NURSE Signed: 05/14/2022 16:03 Receipt Acknowledged By: 05/21/2022 13:16 /kanchan COLLINS PSA 05/21/2022 ADDENDUM STATUS: COMPLETED Attempted to call . No answer. Left v/m w [facility] technical writer and editor's direct number. /kanchan COLLINS PSA Signed: 05/21/2022 13:17
--- OUTSIDE RECORDS SUMMARY | 2022-06-06 12:09 | XMS_ITS | Encounter Summary ---
:1945 Author Organization Department [facility] rs Address [address] [place] [address] Support Name Relationship Address Phone Arti CORONEL Unavailable [address] [facility] [place] [address] ADITYA MALIN Unavailable [address] [place] [phone] Insurance Providers: All historical and current Section [...] MEDICARE MEDICARE PART May 15, PART A [id number] 800 HOMER HUNTER (WNR) (M) A 2008 94A [phone] ,ELLE MEDICARE MEDICARE PART May 15, PART B [id number] 800 HOMER HUNTER (WNR) (M) B 2008 94A [id number] ,ELLE Selected Encounter This section includes the information on record at [place] for the Encounter. Date/Time Encounter Type Encounter Reason Provider Source Description May 20, 2022 THER/PROPH/DIAG MEDICAL PROCEDURE ICD-10-CM GORDO ARGUETA 10:30 AM INJ SC/IM UNIT Z79.899 Other correction (current) drug therapy with Provider Comments: Other intermediate designer (current) drug therapy IHE Encounter Template Text not used by [place] Assessments - Encounter Diagnoses This section includes the primary and secondary diagnoses documented for the Encounter. 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 This section includes future appointments and future orders which are active, pending orscheduled.Future Appointments This section includes appointments that were scheduled to occur 6 months from the date of the Encounter, up to a maximum of 20 appointments. The data comes from all [place] treatment facilities. Appointment Date/Time Appointment Type Appointment Facili ty Name May 23, 2022 02:45 PM AMBULATORY - SURGERY [facility] S Jun 17, 2022 08:00 AM AMBULATORY - NONE [facility] Jun 17, 2022 09:00 AM AMBULATORY - MEDICINE [facility] CS Jun 17, 2022 09:30 AM AMBULATORY - MEDICINE [facility] CS Active, Pending, and Scheduled Orders This section includes a listing of several types of active, pending, and scheduled orders, including clinic medications orders, diagnostic test orders, procedure orders and consult orders; where the start date of the order is 45 days before the date of the Encounter or 45 days after the date of the Encounter. The data comes from all [place] treatment [facility]. Test Date/Time Test Type Test Details Facility Name Jun 06, 2022 06:00 Laboratory - COVID-19 DIAGNOSTIC PANEL [facility] AM Chemistry Order (CEPHEID) NASOPHARYNGEAL SWAB SP ONCE Jun 06, 2022 06:00 Laboratory - PROTHROMBIN TIME/INR [facility] AM Chemistry Order PLASMA SP ONCE Jun 17, 2022 12:00 Laboratory - CBC & DIFF BLOOD ONCO SP [facility] AM Chemistry Order ONCE Jun 17, 2022 12:00 Laboratory - COMPREHENSIVE METABOLIC [facility] AM Chemistry Order PANEL+MG PLASMA ONCO SP Jun 17, 2022 12:00 Laboratory - SEROTONIN SERUM SP ONCE [facility] AM Chemistry Order Jun 17, 2022 12:00 Laboratory - CHROMOGRANIN A(ROSE) [facility] AM Chemistry Order SERUM SP ONCE [...] Range Comment May 20, 2022 09:03 AM [facility] PT/INR(ANTICOAG) Speci men Type: PLASMA No comment enter ed. Ordering Provid er: CATALINA HEAD Report Released Date/Time: Apr 23, 2022 03:52 PM Reporting Lab: [facility] [address] [facility] [address] Performing Lab: [facility] [address] .INR 2.1 H 0.8-1.1 .PT 24.9 H 9.4-12.5 May 20, 2022 [facility] COMPREHENSIVE METABOLIC Spec imen Type: PLASMA 09:03 AM PANEL+MG No comment enter ed. Ordering Provid er: LILI GARCIA Report Released Date/Time: Feb 17, 2022 11:17 AM Reporting Lab: [facility] [address] [facility] [address] Performing Lab: [facility] [address] CREATININE 1.0 0.7-1.2 UREA NITROGEN 13 8-26 GLUCOSE 98 70-100 SODIUM 141 136-145 POTASSIUM 4.0 3.5-5.1 CHLORIDE 110 H 98-107 CO2 26 22-29 CALCIUM 8.9 8.4-10.2 PROTEIN,TOTAL 6.7 6.0-8.3 ALBUMIN 3.8 3.5-5.2 BILIRUBIN, TOTAL 1.0 0.2-1.2 MAGNESIUM 2.1 1.6-2.6 ANION GAP 5 5-15 ALKALINE PHOSPHATASE 68 40-150 ALT/SGPT 15 <55 AST/SGOT 20 <34 CREAT EGFR(CKD-EPI) 78 >60 May 20, 2022 09:03 AM [facility] CBC & DIFF Specim en Type: BLOOD Comment: Automa rosalba Differential Performed Ordering Provid er: LILI GARCIA Report Released Date/Time: Feb 17, 2022 11:17 AM Reporting Lab: [facility] [address] [facility] [address] Performing Lab: [facility] [address] WBC 4.78 4.0-11.0 RBC 4.19 L 4.6-6.2 [...] GRAN 0.02 0-0.1 Apr 22, 2022 10:28 [facility] PT/INR(ANTICOAG) Specimen Type: PLASMA AM No comment enter ed. Ordering Provid er: LISETTE LY Report Released Date/Time: Mar 21, 2022 12:27 PM Reporting Lab: [facility] [address] [facility] [address] Performing Lab: [facility] [address] [facility] [address] .INR 2.0 H 0.8-1.1 .PT 22.7 H 9.4-12.5 Apr 22, 2022 10:27 AM [facility] PSA Specim en Type: SERUM No comment enter ed. Ordering Provid er: CLAYTON ROLLE Report Released Date/Time: Apr 04, 2022 09:04 AM Reporting Lab: [facility] [address] [facility] [address] Performing Lab: [facility] [address] [facility] [address] PSA 0.01 <4.00 Apr 22, 2022 10:27 [facility] HEMOGLOBIN A1C Specimen Type: BLOOD AM No comment enter ed. Ordering Provid er: CLAYTON ROLLE Report Released Date/Time: Apr 04, 2022 09:04 AM Reporting Lab: [facility] [address] [facility] [address] Performing Lab: [facility] [address] [facility] [address] HEMOGLOBIN A1C 6.1 H 4.0-6.0 Apr 22, 2022 [facility] LIPID PANEL,NON-FASTING Spec imen Type: PLASMA 10:27 AM No comment enter ed. Ordering Provid er: CLAYTON ROLLE Report Released Date/Time: Apr 04, 2022 09:04 AM Reporting Lab: [facility] [address] [facility] [address] Performing Lab: [facility] [address] CHOLESTEROL 194 <199 .HDL 55 >40 LDL CALCULATION 112 H <99 VLDL CALCULATION 27 <29 NON HDL CHOLESTEROL 139 H <129 TRIG(NON FASTING) 136 <149 Apr 22, 2022 [facility] COMPREHENSIVE METABOLIC Spec imen Type: PLASMA 10:27 AM PANEL+MG No comment enter ed. Ordering Provid er: LILI GARCIA Report Released Date/Time: Feb 17, 2022 11:17 AM Reporting Lab: [facility] [address] [facility] [address] Performing Lab: [facility] [address] CREATININE 1.0 0.7-1.2 UREA NITROGEN 17 8-26 GLUCOSE 96 74-100 SODIUM 139 136-145 POTASSIUM 4.1 3.5-5.1 CHLORIDE 108 H 98-107 CO2 26 22-29 CALCIUM 9.4 8.4-10.2 PROTEIN,TOTAL 6.9 6.0-8.3 ALBUMIN 3.9 3.5-5.2 BILIRUBIN, TOTAL 0.8 0.2-1.2 MAGNESIUM 2.0 1.6-2.6 ANION GAP 5 5-15 ALKALINE PHOSPHATASE 68 40-150 ALT/SGPT 15 <55 AST/SGOT 22 <34 CREAT EGFR(CKD-EPI) 78 >60 Apr 22, 2022 10:27 AM [facility] CBC & DIFF Specim en Type: BLOOD Comment: Automa rosalba Differential Performed Ordering Provid er: LILI GARCIA Report Released Date/Time: Feb 17, 2022 11:17 AM Reporting Lab: [facility] [address] Performing Lab: [facility] [address] WBC 4.55 4.0-11.0 RBC 4.32 L 4.6-6.2 [...] Sukhwinder dy Source Pressure Rate Mass Index May 20 98.1 F 74 107/68 16 /min 92 % 70.669 223 lb 31 [place] P 2021 08:26 /min mm[Hg] in IS [facility] Social History: Smoking Status (Most current) and Tobacco Use (All prior to encounter date) This section includes the most current, and the historical, smoking and tobacco-related health factors from the [place] facility where the Encounter took place.Current Smoking Status This section includes the most current smoking, or tobacco-related health factor, from the [place] facility where the Encounter took place. Date/Time Current Smoking Status Comment Facility Apr 04, 2022 08:30 AM [place]-TOBAC[place] NEVER USED [place] [facility] Tobacco Use History This section includes a history of the smoking, or tobacco- related health factors, that were collected on or before the date of the Encounter. The data comes from the [place] facility where the Encounter took place. Date/Time Smoking Status/Tobacco Use Comment [facility] May 15, 2021 10:00 AM [place]-TOBACCO NEVER USED [place] [facility] Oct 05, 2019 10:05 AM [place] USED [place] [facility] Oct 20, 2018 12:28 PM INPT NO TOBACCO USE IN LAST 30 DAYS [facility] Sep 15, 2018 01:21 PM [place]-TOBACCO NEVER USED [place] [facility] Aug 11, 2017 08:54 AM LIFETIME NON-TOBACCO USER [facility] Jul 08, 2016 08:07 AM LIFETIME NON-TOBACCO USER [facility] May 09, 2015 02:31 PM LIFETIME NON-TOBACCO USER [facility] Apr 14, 2014 08:41 AM LIFETIME NON-TOBACCO USER [facility] Jan 06, 2007 08:51 AM LIFETIME NON-TOBACCO USER [facility] Radiology Reports: +/- 30 days of the [...] the Encounter. The data comes from all [place] treatment facilities. Date/Time Radiology Report Provider Source Apr 29, 2022 08:32 CT (C) CHEST (P): HEIDI EDWARDS [facility] AM ELLE CORONEL [id number] -[birth year] M Exm Date: APR 29, 2022@08:32 Req Phys: CLAYTON ROLLE Loc: [facility] PACT CREAM 4E (Req'g Loc) Img Loc: CT IMAGING Service: Unknown (Case [id number] COMPLETE) CT (C) CHEST W/O CONTRAST (C T Detailed) CPT:96493 Reason for Study: follow up pnemonia Clinical History: pneumonia in lingula seen on CT scan at [place] 2021, s/p antibiotics with some residual symptoms, f/u fo r resolution [place] IS NOT under investigation for COVID-19 or is COVID-19 negative Defer to radiologist for final CT protocol. Responsible provider name and phone number to n otify for critical findings if other than user placing the order a nd pager listed below: User placing orders pager: [phone] LAST 3: Collection DT Specimen Test Name [...] PLASMA ESTIMATED GFR(eGF >60 Ref: >=60 Allergies: ([employer] only) DIAL SOAP (Mar 25, 2007) NAPROXEN (February 05, 2011 ) Report Status: Verified Date Reported: APR 30, 2022 Date Verified: APR 30, 2022 Waterproof Bag Cutting Machine Operator E-Sig:/ES/HEIDI EDWARDS MD Report: Exam: CT chest without intravenous contrast, History: Follow-up pneumonia. History of pneumo mikal in the lingula on CT scan at [facility] February 2022. Status pos t antibiotics. [...] direct correlation with outside CT examination from [facility] 2021 would be of benefit to evaluate [...] Primary Interpreting Staff: HEIDI EDWARDS MD, RADIOLOGIST (Waterproof Bag Cutting Machine Operator) /BJB Apr 22, 2022 09:24 FOOT RIGHT 3 VIEWS OR MORE: TIMBO CONTRERAS [facility] ELLE CORONEL [id number] -[birth year] M Exm Date: APR 22, 2022@09:24 Req Phys: RUEL JESUS Pat Loc: [facility] P OD EDIN CONSULT Img Loc: MAIN X-RAY Service: Unknown (Case [id number] COMPLETE) FOOT RIGHT 3 VIEWS OR MORE ( RAD Detailed) CPT:83839 Proc Modifiers : RIGHT, WEIGHT BEARING Reason for Study: Pain Clinical History: [place] IS NOT under investigation for COVID-19 or is COVID-19 negative Posterior heel pain. Responsible provider name and phone number to notify for critical findings if other than user placing the order and pager listed below: User placing orders pager: [phone] LAST CREATININE 1.0 (02/17/22) Report Status: Verified Date Reported: APR 22, 2022 Date Verified: APR 22, 2022 Waterproof Bag Cutting Machine Operator E-Sig:/ES/TIMBO CONTRERAS DO Report: EXAMINATION: FOOT RIGHT 3 VIEWS OR MORE 9:24 AM INDICATION: Posterior heel pain COMPARISON: No comparison Impression: No acute fracture. No dislocation. Lisfranc zelad nt is intact. No suspicious bone lesion. Mild degenerative ch zac at the first MTP joint. Narrowing of multiple interphalangea l joints. Possible hammertoe deformities. Plantar calcaneal enthes ophyte noted. Large posterior calcaneal enthesophyte/bulky ca lcification in the distal Achilles tendon as well as Flor defor mity. There is atherosclerotic calcification. Primary Interpreting Staff: TIMBO CONTRERAS DO, RADIOLOGIST (Waterproof Bag Cutting Machine Operator) /DDS Encounter Notes: All associated encounter notes This section contains the clinical notes associated to the Encounter. Date/Time Encounter Note(s) Provider Source May 20, 2022 10:51 AM HEMATOLOGY AND ONCOLOGY NURSING OUTPAT IENT NOTE: GORDO ARGUETA [facility] LOCAL TITLE: HEME/ONC PROCEDURE CLINIC NURSING NOTE STANDARD TITLE: HEMATOLOGY AND ONCOLOGY NURSING OUTPATIENT NOTE DATE OF NOTE: MAY 20, 2022@10:51 ENTRY DATE: MAY 20, 2022@10:52:01 AUTHOR: GORDO ARGUETA EXP COSIGNER: URGENCY: STATUS: COMPLETED Date of Service: May Diagnosis: Carcinoid Vital Signs: Height: 70.669 in [179.5 cm] (05/20 08:26) Weight: 223 lb [101.15 kg] (05/20/2022 08:26) Body Surface Area: 2.25 Temperature: 98.1 F [36.7 C] (05/20/2022 08:26) Blood Pressure (BP): 107/68 (05/20/2022 08:26) Pulse: 74 (05/20/2022 08:26) Respiration: 16 (05/20/2022 08:26) Physician: Other: ELIZABETH Willson Allergies: DIAL SOAP (Mar 25, 2007) NAPROXEN (February 05, 2011) Labs: CBC + Diff: WBC 4.78 (05/20/22) ABS NEUT 2.68 (05/20/22) HGB 14.1 (05/20/22) PLT 201 (05/20/22) Chemistry: SODIUM 141 (05/20/22) POTASSIUM 4.0 (05/20/22) CALCIUM 8.9 (05/20/22) MAGNESIUM 2.1 (05/20/22) CREATININE 1.0 (05/20/22) ALK PHOSPHATASE 68 (05/20/22) SGPT 15 (05/20/22) SGOT 20 (05/20/22) BILIRUBIN, TOTAL 1.0 (05/20/22) Tumor Markers: CEA____ CA 125 TUMOR MARKER____ CA 19-9____ PSA 0.01 SERUM (04/22/22 10:27) Labs verified by Jacqui Patient identity and drugs dispensed verified by : Dinesh Non chemo procedures SQ/IM Medication: Octreotide LAR IM Dosage: 20mg Site: IM in Right gluteal muscle Time: 1020 Labs for this procedure clinic reviewed with emily martinez. Patient Response/Status: Patient reports feeling good today. Pt given Octreotide IM injection into right gluteal muscl e and applied gauze/bandaid over site. Pt left clinic ambulatory. DISCHARGED TO: Home at 1022. /mustapha/ GORDO ARGUETA, RN, BSN, OCN STAFF NURSE Signed: 05/20/2022 10:57
--- OUTSIDE RECORDS SUMMARY | 2022-06-06 12:09 | XMS_ITS | Encounter Summary ---
:1945 Author Organization [facility] Address [address] [place] [address] Support Name Relationship Address Phone Arti CORONEL Unavailable [address] [place] [address] ADITYA MALIN Unavailable [address] [facility] [place] [phone] Insurance Providers: All historical and current Section [...] MEDICARE MEDICARE PART May 15, PART A [id number] 800 HOMER HUNTER (WNR) (M) A 2008 94A [phone] ,ELLE MEDICARE MEDICARE PART May 15, PART B [id number] 800 HOM[address] HUNTER (WNR) (M) B 2008 94A [phone] ,ELLE Selected Encounter This section includes the information on record at [place] for the Encounter. Date/Time Encounter Type Encounter Description Reason Provider Source E Encounter Template Text not used by [place]
--- OUTSIDE RECORDS SUMMARY | 2022-06-06 12:09 | XMS_ITS | Encounter Summary ---
:1945 Author Organization Department of [facility] rs Address [address] [place] [address] Support Name Relationship Address Phone Arti CORONEL Unavailable [address] [place] [address] ADITYA MALIN Unavailable [address] [place] [id number] Insurance Providers: All historical and current Section [...] MEDICARE MEDICARE PART May 15, PART A [id number] 800 HOMER Paige ATIENT (WNR) (M) A 2008 [id number] [phone] ,ELLE MEDICARE MEDICARE PART May 15, PART B [id number] SHAYMOYAIDAN Paige ATIENT (WNR) (M) B 2008 [id number] [phone] ,ELLE Selected Encounter This section includes the information on record at [place] for the Encounter. Date/Time Encounter Type Encounter Reason Provider Source Description May 20, 2022 OFFICE O/P EST GENERAL INTERNAL ICD-10-CM Z01.818 SHARYN REIS 08:30 AM MOD 30-39 MIN MEDICINE Encounter for ETTE M other preprocedural examination with Provider Comments: PreOp Exam IHE Encounter Template Text not used by [facility] Assessments - Encounter Diagnoses This section includes the primary and secondary diagnoses documented for the Encounter. 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 This section includes future appointments and future orders which are active, pending orscheduled.Future Appointments This section includes appointments that were scheduled to occur 6 months from the date of the Encounter, up to a maximum of 20 appointments. The data comes from all [facility]. Appointment Date/Time Appointment Type Appointment Facili ty Name May 23, 2022 02:45 PM AMBULATORY - SURGERY [facility] S Jun 17, 2022 08:00 AM AMBULATORY - NONE [facility] Jun 17, 2022 09:00 AM AMBULATORY - MEDICINE [facility] CS Jun 17, 2022 09:30 AM AMBULATORY - MEDICINE [facility] Active, Pending, and Scheduled Orders This section includes a listing of several types of active, pending, and scheduled orders, including clinic medications orders, diagnostic test orders, procedure orders and consult orders; where the start date of the order is 45 days before the date of the Encounter or 45 days after the date of the Encounter. The data comes from all [facility]. Test Date/Time Test Type Test Details Facility Name Jun 06, 2022 06:00 Laboratory - COVID-19 DIAGNOSTIC PANEL MIN [facility] AM Chemistry Order (CEPHEID) NASOPHARYNGEAL SWAB SP ONCE Jun 06, 2022 06:00 Laboratory - PROTHROMBIN TIME/INR [facility] AM Chemistry Order PLASMA SP ONCE Jun 17, 2022 12:00 Laboratory - CBC & DIFF BLOOD ONCO SP [facility] AM Chemistry Order ONCE Jun 17, 2022 12:00 Laboratory - COMPREHENSIVE METABOLIC [facility] AM Chemistry Order PANEL+MG PLASMA ONCO SP Jun 17, 2022 12:00 Laboratory - SEROTONIN SERUM SP ONCE ANALY EDUARDOLIS [facility] AM Chemistry Order Jun 17, 2022 12:00 Laboratory - CHROMOGRANIN A(ROSE) [facility] AM Chemistry Order SERUM SP ONCE Lab [...] Range Comment May 20, 2022 09:03 AM [facility] PT/INR(ANTICOAG) Speci men Type: PLASMA No comment enter ed. Ordering Provid er: CATALINA HEAD Report Released Date/Time: Apr 23, 2022 03:52 PM Reporting Lab: [facility] [id number] Performing Lab: [facility] [address] .INR 2.1 H 0.8-1.1 .PT 24.9 H 9.4-12.5 May 20, 2022 [facility] COMPREHENSIVE METABOLIC Spec imen Type: PLASMA 09:03 AM PANEL+MG No comment enter ed. Ordering Provid er: LILI GARCIA Report Released Date/Time: Feb 17, 2022 11:17 AM Reporting Lab: [facility] [address] Performing Lab: [facility] [address] CREATININE 1.0 0.7-1.2 UREA NITROGEN 13 8-26 GLUCOSE 98 70-100 SODIUM 141 136-145 POTASSIUM 4.0 3.5-5.1 CHLORIDE 110 H 98-107 CO2 26 22-29 CALCIUM 8.9 8.4-10.2 PROTEIN,TOTAL 6.7 6.0-8.3 ALBUMIN 3.8 3.5-5.2 BILIRUBIN, TOTAL 1.0 0.2-1.2 MAGNESIUM 2.1 1.6-2.6 ANION GAP 5 5-15 ALKALINE PHOSPHATASE 68 40-150 ALT/SGPT 15 <55 AST/SGOT 20 <34 CREAT EGFR(CKD-EPI) 78 >60 May 20, 2022 09:03 AM [facility] CBC & DIFF Specim en Type: BLOOD Comment: Automa rosalba Differential Performed Ordering Provid er: LILI GARCIA Report Released Date/Time: Feb 17, 2022 11:17 AM Reporting Lab: [facility] [address] [facility] [address] Performing Lab: [facility] [address] [facility] [address] WBC 4.78 4.0-11.0 RBC 4.19 L 4.6-6.2 [...] GRAN 0.02 0-0.1 Apr 22, 2022 10:28 [facility] PT/INR(ANTICOAG) Specimen Type: PLASMA AM No comment enter ed. Ordering Provid er: LISETTE LY Report Released Date/Time: Mar 21, 2022 12:27 PM Reporting Lab: [facility] [address] [facility] [address] Performing Lab: [facility] [address] [facility] [address] .INR 2.0 H 0.8-1.1 .PT 22.7 H 9.4-12.5 Apr 22, 2022 10:27 [facility] HEMOGLOBIN A1C Specimen Type: BLOOD AM No comment enter ed. Ordering Provid er: CLAYTON ROLLE Report Released Date/Time: Apr 04, 2022 09:04 AM Reporting Lab: [facility] [address] [facility] [address] Performing Lab: [facility] [address] [facility] [address] HEMOGLOBIN A1C 6.1 H 4.0-6.0 Apr 22, 2022 10:27 AM [facility] PSA Specim en Type: SERUM No comment enter ed. Ordering Provid er: CLAYTON ROLLE Report Released Date/Time: Apr 04, 2022 09:04 AM Reporting Lab: [facility] [address] [facility] [address] Performing Lab: [facility] [place] [facility] [address] PSA 0.01 <4.00 Apr 22, 2022 [facility] LIPID PANEL,NON-FASTING Spec imen Type: PLASMA 10:27 AM No comment enter ed. Ordering Provid er: CLAYTON ROLLE Report Released Date/Time: Apr 04, 2022 09:04 AM Reporting Lab: [facility] [address] [facility] [address] Performing Lab: [facility] [place] [facility] [address] CHOLESTEROL 194 <199 .HDL 55 >40 LDL CALCULATION 112 H <99 VLDL CALCULATION 27 <29 NON HDL CHOLESTEROL 139 H <129 TRIG(NON FASTING) 136 <149 Apr 22, 2022 [facility] COMPREHENSIVE METABOLIC Spec imen Type: PLASMA 10:27 AM PANEL+MG No comment enter ed. Ordering Provid er: LILI GARCIA Report Released Date/Time: Feb 17, 2022 11:17 AM Reporting Lab: [facility] [address] [facility] [address] Performing Lab: [facility] [address] [facility] [address] CREATININE 1.0 0.7-1.2 UREA NITROGEN 17 8-26 GLUCOSE 96 74-100 SODIUM 139 136-145 POTASSIUM 4.1 3.5-5.1 CHLORIDE 108 H 98-107 CO2 26 22-29 CALCIUM 9.4 8.4-10.2 PROTEIN,TOTAL 6.9 6.0-8.3 ALBUMIN 3.9 3.5-5.2 BILIRUBIN, TOTAL 0.8 0.2-1.2 MAGNESIUM 2.0 1.6-2.6 ANION GAP 5 5-15 ALKALINE PHOSPHATASE 68 40-150 ALT/SGPT 15 <55 AST/SGOT 22 <34 CREAT EGFR(CKD-EPI) 78 >60 Apr 22, 2022 10:27 AM [facility] CBC & DIFF Specim en Type: BLOOD Comment: Automa rosalba Differential Performed Ordering Provid er: LILI GARCIA Report Released Date/Time: Feb 17, 2022 11:17 AM Reporting Lab: [facility] [address] Performing Lab: [facility] [place] [facility] [address] WBC 4.55 4.0-11.0 RBC 4.32 L 4.6-6.2 [...] dy Source Pressure Rate Mass Index May 20, 98.1 F 74 107/68 16 /min 92 % 70.669 223 lb 31 [place] P 2021 08:26 /min mm[Hg] in [facility] Social History: Smoking Status (Most current) and Tobacco Use (All prior to encounter date) This section includes the most current, and the historical, smoking and tobacco-related health factors from the [place] facility where the Encounter took place.Current Smoking Status This section includes the most current smoking, or tobacco-related health factor, from the [place] facility where the Encounter took place. Date/Time Current Smoking Status Comment Facility Apr 04, 2022 08:30 AM [place]-TOBACCO NEVER USED MELISSA HOYT [facility] Tobacco Use History This section includes a history of the smoking, or tobacco- related health factors, that were collected on or before the date of the Encounter. The data comes from the [place] facility where the Encounter took place. Date/Time Smoking Status/Tobacco Use Comment Facil ity May 15, 2021 10:00 AM [place]-TOBACCO NEVER USED [place] [facility] Oct 05, 2019 10:05 AM [place]-TOBACCO NEVER USED [place] [facility] Oct 20, 2018 12:28 PM INPT NO TOBACCO USE IN LAST 30 DAYS [facility] Sep 15, 2018 01:21 PM VA-TOBACCO NEVER USED [place] [facility] Aug 11, 2017 08:54 AM LIFETIME NON-TOBACCO USER [facility] Jul 08, 2016 08:07 AM LIFETIME NON-TOBACCO USER [facility] May 09, 2015 02:31 PM LIFETIME NON-TOBACCO USER [facility] Apr 14, 2014 08:41 AM LIFETIME NON-TOBACCO USER [facility] Jan 06, 2007 08:51 AM LIFETIME NON-TOBACCO USER [facility] Radiology Reports: +/- 30 days of [...] the Encounter. The data comes from all [place] treatment facilities. Date/Time Radiology Report Provider Source Apr 29, 2022 08:32 CT (C) CHEST (P): HEIDI EDWARDS [facility] AM ELLE CORONEL [id number] -[birth year] M Exm Date: APR 29, 2022@08:32 Req Phys: CLAYTON ROLLE Pat Loc: [facility] PACT CREAM 4E (Req'g Loc) Img Loc: CT IMAGING Service: Unknown (Case [id number] COMPLETE) CT (C) CHEST W/O CONTRAST (C T Detailed) CPT:95450 Reason for Study: follow up pnemonia Clinical History: pneumonia in lingula seen on CT scan at [facility] 2021, s/p antibiotics with some residual symptoms, f/u fo r resolution [place] IS NOT under investigation for COVID-19 or is COVID-19 negative Defer to radiologist for final CT protocol. Responsible provider name and phone number to n otify for critical findings if other than user placing the order a nd pager listed below: User placing orders pager: [phone] LAST 3: Collection DT Specimen Test Name [...] PLASMA ESTIMATED GFR(eGF >60 Ref: >=60 Allergies: ([facility]) DIAL SOAP (Mar 25, 2007) NAPROXEN (February 05, 2011 ) Report Status: Verified Date Reported: APR 30, 2022 Date Verified: APR 30, 2022 Change Of Address Clerk E-Sig:/ES/HEIDI EDWARDS MD Report: Exam: CT chest without intravenous contrast, History: Follow-up pneumonia. History of pneumo mikal in the lingula on CT scan at [facility] February 2022. Status pos t antibiotics. Comparison: [...] with outside CT examination from [facility] 2021 would be of benefit to evaluate [...] Primary Interpreting Staff: HEIDI EDWARDS MD, RADIOLOGIST (Change Of Address Clerk) /BJB Apr 22, 2022 09:24 FOOT RIGHT 3 VIEWS OR MORE: TIMBO CONTRERAS [facility] AM ELLE CROONEL [id number] -[birth year] M Exm Date: APR 22, 2022@09:24 Req Phys: MARIETTAREITERRUEL Pat Loc: [facility] RAMPETSREITER CONSULT Img Loc: MAIN X-RAY Service: Unknown (Case [id number] COMPLETE) FOOT RIGHT 3 VIEWS OR MORE ( RAD Detailed) CPT:07903 Proc Modifiers : RIGHT, WEIGHT BEARING Reason for Study: Pain Clinical History: [place] IS NOT under investigation for COVID-19 or is COVID-19 negative Posterior heel pain. Responsible provider name and phone number to notify for critical findings if other than user placing the order and pager listed below: User placing orders pager: [phone] LAST CREATININE 1.0 (02/17/22) Report Status: Verified Date Reported: APR 22, 2022 Date Verified: APR 22, 2022 Change Of Address Clerk E-Sig:/ES/TIMBO CONTRERAS DO Report: EXAMINATION: FOOT RIGHT [...] Primary Interpreting Staff: TIMBO CONTRERAS DO, RADIOLOGIST (Change Of Address Clerk) /DDS Encounter Notes: All associated encounter notes This section contains the clinical notes associated to the Encounter. Date/Time Encounter Note(s) Provider Source May 20, 2022 08:25 AM PRE OPERATIVE E & M NOTE: KATERINE FRANCO [facility] LOCAL TITLE: MEDICINE PRE-OP EVALUATION NOTE STANDARD TITLE: PRE OPERATIVE E & M NOTE DATE OF NOTE: MAY 20, 2022@08:25 ENTRY DATE: MAY 14, 2022@08:45:52 AUTHOR: MIMI FRANCO EXP COSIGNER: URGENCY: STATUS: COMPLETED PRE-OP MEDICAL EVALUATION Name: ELLE CORONEL Age: 76 PLANNED SURGERY: JUN 06, 2022 Proc: right Achilles tendon and bon e spur debridement, gastrocnemius recession ALLERGY: DIAL SOAP (Mar 25, 2007) NAPROXEN (February 05, 2011) C-MEDS: DRUG RECONCILIATION Active Medications, as listed below, has been r eviewed & Discussed with Pt and discrepancies has been reconciled & resolved today. 1) FLUTICASONE PROP 50MCG 120D NASAL INHL 2) LIDOCAINE 5% OINT 3) LORATADINE 10MG TAB 4) OCTREOTIDE ACETATE 20MG/KIT SA SUSP INJ INJEC T 20MG QMONTH 5) *SOTALOL HCL 80MG TAB BID 6) *WARFARIN NA 5MG TAB TAKE 1.5 TABS TUES/THURS AND 1 TAB ALL OTHER DAYS 1) Non-VA CHOLECALCIF 25MCG (D3-1,000UNIT) TAB 2) *Non-VA Vit A 3) *Non-VA VITAMIN E CAP,ORAL Co-Managed: Jayjay Yancey [facility]. Hx: Stroke (2019) - Lt frontal and parietal multifocal stroke - Cardioembolic Paroxysmal A. 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 List Ab ove Functional Status: Best in last 6 months: yard work, push mows lawn 45 mins non-stop. Climbs full flight of stairs nons top. Denies CV sxs. WC/Bed:[No] METs:[5] Frail-BMI:32.0[No] Falls:[ No] CVD : IA:[No] CABG:[No] PTCA/Stent:[No] Angina/ Unstable:[No] CHF:[No] HERRON:[No] Orthopnea/PND:[No] :[No] Sx s:[No] A-F/SVT/VT:[Yes], DCCV/Ablation:[Cardioversion] AICD Or PM:[No] ABx Prophylaxis Need: SBE:[No] Cardiac Devices: [No] PAD:[No] CVD:[Yes] DVT/PE):[yes] unprovoked:[No ] HEM: Bleeding Diathesis:[No] ASA/PLAVIX/NSAID:[ No] AC:[No] GI: [id number]:[No] Agree to blood product s:[Yes] Hepatitis:[No] Cirrhosis/Stage:[No] PULM: COPD/Asthma:[No] Home O2:[No] Oral Steroi d<12ths:[No] YANCY:[No} C-PAP Compliant:[No] YANCY Suspect STOP- BANG:[ ] Aspiration Risk: Dysphagia[no] Hiatal Hernia[no ] GERD[no] RENAL: CKD/Stage:[No] LUANA:[No] HD-Schedule:[No] BPH/HARLEY:[No] ENDOC: Adreno-Suppression:[No] DM[No] Obesity:3 2.0:[Yes] NEURO: Seizure:[No] Neuropathy:[No] Myopathy:[N o] GADGET: Brain/Spinal/Vagal stimulators, Pumps, Prosthesis:[No] ANESTH: FHx/Personal Complic.:[No] Post-Op Deli rium/Confusion:[No] CHEM.DEP: ETOH:[occ] Smoking:[No] Illicit Subs: [No] Naltrexone (PO/IM):[No] Buprenorphine:[No] Opio id:[No] BRAIN HEALTH: Dementia/Delirium:[No] PTSD:[No] TBI:[No] CAPRINI: VTE RISK ASSESSMENT SCORE -- VTE RISK [%] SCORE -- VTE RISK [%] (0-2) -- Low -- 0.5-1.5% (5-8) -- High -- 6.0% (3-4) -- Moderate-- 3.0% (> 8) -- Highest -- 6- 18% Age: 76 (41-60= 1) (61-74= 2) (>75= 3) (3) BMI:32.0 BMI>25= 1 (1) Surgery: Minor=1, Major=2. Major (within a month ) Major:1 (2) Mobility: Central-line, Bed-Rest+/- Cast<72H=1 C onfined +/- Cast>72H=2 (0) Women: Estrogen///Spontaneous /Still =1 (0) PMHx:IA/CHF/IBD/Malignancy/(COPD/Asthma/Abnl PFT ), LE edema/Varicosity=1(2) Recent Med Hx (< month): Sepsis, Pneumonia/Serious lung disease = 1 (0) CVA, Elective TKA/ALISSON/Spinal injury/Bone Fx(Hip /pelvis/Leg) =5 (0) VTE: VTE Hx, FHx of VTE, Congenital or Acquired thrombophilia =3 (3) TOTAL SCORE ==>[11] EXAM: General: NAD Ht:70.669 in [179.5 cm] (05/20/2022 08:26) BMI/W t:31.5/223 lb [101.15 kg] RR:16 (05/20/2022 08:26) Temp:98.1 F [36.7 C] (0 05/20/2022 08:26) HR:74 (05/20/2022 08:26) BP:107/68 (05/20/2022 08:26) Mental Status: Normal: [Yes] Neck ROM: Normal:[Yes] Limited:[No] Trachea Midl ine:[Yes] Mouth Opening(Fingers): 3 Mallampati: 2 Teeth: WNL:[Yes] Loose:[No] Edentulous:[No], Oth er: Lungs: CTA Heart: Rhythm: RRR. No Murmur. Extremity: LE edema: No LABS: SODIUM 139 (04/22/22) POTASSIUM 4.1 (04/22/22) UREA NITROGEN 17 (04/22/22) CREATININE 1.0 (04/22/22) GLUCOSE 96 (04/22/22) ALBUMIN 3.9 (04/22/22) WBC 4.55 (04/22/22) HGB 14.5 (04/22/22) PLT 211 (04/22/22) INR 2.0 H (04/22/22) 04/22/2022 10:27 BLOOD HEMOGLOBIN A1C 6.1 H % EKG - Rhythm: NSR HR: 70 Date: 05/20/22 Impression for CHEST 2 VIEWS PA & LAT, 09/30/07, case [id number] Clear lungs, no change when compared with 007. (x)Patient was informed of available lab, imagin g, and other study results noted above, associated with today's visit. RISK ASSESSMENT: ELLE CORONEL is a 76 Y-O, Vet, With Me d Hx as outlined above. Known paroxysmal afib, hx of CVA , provoked DVT, and Carcinoid tumor w/metastasis. Has no known Cardio-Pulmonar y disease or symptoms despite being relatively active, METS 5, as noted above. Labs, EKG, and Exam are as outlined. Risk for the pl anned surgery relate to: Age, warfarin use, p. afib, CVA, DVT, and active malignancy. RCRI SCORE/RISK: 1 (CVD) LOW RISK FOR THE PLANNED SURGERY FOR CARDIO-PUL MONARY COMPLICATION RECOMMENDATIONS: CARDIAC: CVD. No known CAD, but at risk given H X. At risk for ischemia/IA. Hold Vit E/Vit A 5 days Pre-OP Give Sotalol AM of OP Monitor Vitals & for Angina & Arrhythmia hermelindo-o p NTG SL 0.4 mg PRN Angina Warfarin per [facility] clinic, consult placed 05/08/22 PULMONARY: No known disease. Non Smoker. Albuterol nebs PRN hermelindo-OP Incentive spirometry -Encourage use post-OP Keep head of bed elevated hermelindo-OP when possible Prediabetes: Monitor FSBG closely hermelindo-OP Aspart Insulin SQ PRN FSBG Hermelindo-OP DVT PROPHYLAXIS: Active malignancy/hypercoagula ble state. Hx of DVT CAPRINI SCORE:[11] == DVT/PE RISK:[6-18%] DVT PROPHYLAXIS RECOMMENDATION: Per surgical se rvice ANESTHESIA: Oral Opening Fingers: 3 Mallampati: 2 BRAIN HEALTH: No Dementia/Delirium ALLERGY: Note allergies as listed above /mustapha/ MIMI FRANCO APRN NURSE PRACTITIONER Signed: 05/20/2022 09:35
--- OUTSIDE RECORDS SUMMARY | 2022-06-06 12:09 | XMS_ITS | Encounter Summary ---
:1945 Author Organization Department [facility] Address [address] [place] [address] Support Name Relationship Address Phone Arti CORONEL Unavailable [address] [facility] [place] [address] ADITYA MALIN Unavailable [address] [place]DA [phone] [place] [id number] Insurance Providers: All historical and current Section [...] MEDICARE MEDICARE PART May 15, PART A [id number] 800 HOMER HUNTER (WNR) (M) A [id number] [phone] ,ELLE MEDICARE MEDICARE PART May 15, PART B [id number] 800 HOMER HUNTER (WNR) (M) B [id number] ,ELLE Selected Encounter This section includes the information on record at [place] for the Encounter. Date/Time Encounter Type Encounter Reason Provider Source Description May 20, 2022 HC PRO PHONE TELEPHONE/MEDICIN ICD-10-CM Z51.81 CATALINA HEAD 01:43 PM CALL 11-20 MIN E Encounter for therapeutic drug level monitoring with Provider Comments: Encounter For Therapeutic Drug Level Monitoring (ICD-10-CM Z51.81) IHE Encounter Template Text not used by [place] Assessments - Encounter Diagnoses This section includes the primary and secondary diagnoses documented for the Encounter. Date/Time Primary/Secondary Diagnosis Name Provider Source Diagnosis May 20, 2022 PRIMARY Encounter for [place] 01:43 PM therapeutic drug HCS level monitoring May 20, 2022 SECONDARY [facility] (current) [place] HEAD [place] 01:43 PM use of HCS anticoagulants May 20, 2022 SECONDARY Unspecified atrial [place] HEAD [place] 01:43 PM fibrillation HCS Plan of Treatment: Future Appointments (+ 6 months) and Future Tests (+/- 45 days) The Plan of Treatment section includes future care activities for the patient from [facility] [place] [facility] This section includes future appointments and future orders which are active, pending orscheduled.Future Appointments This section includes appointments that were scheduled to occur 6 months from the date of the Encounter, up to a maximum of 20 appointments. The data comes from all [place] treatment [facility]. Appointment Date/Time Appointment Type Appointment Facili ty Name May 23, 2022 02:45 PM AMBULATORY - SURGERY [facility] S Jun 17, 2022 08:00 AM AMBULATORY - NONE [facility] Jun 17, 2022 09:00 AM AMBULATORY - MEDICINE [facility] CS Jun 17, 2022 09:30 AM AMBULATORY - MEDICINE [facility] CS Active, Pending, and Scheduled Orders This section includes a listing of several types of active, pending, and scheduled orders, including clinic medications orders, diagnostic test orders, procedure orders and consult orders; where the start date of the order is 45 days before the date of the Encounter or 45 days after the date of the Encounter. The data comes from all [place] treatment [facility]. Test Date/Time Test Type Test Details Facility Name Jun 06, 2022 06:00 Laboratory - COVID-19 DIAGNOSTIC PANEL [facility] AM Chemistry Order (CEPHEID) NASOPHARYNGEAL SWAB SP ONCE Jun 06, 2022 06:00 Laboratory - PROTHROMBIN TIME/INR [facility] AM Chemistry Order PLASMA SP ONCE Jun 17, 2022 12:00 Laboratory - CBC & DIFF BLOOD ONCO SP [facility] AM Chemistry Order ONCE Jun 17, 2022 12:00 Laboratory - SEROTONIN SERUM SP ONCE [facility] AM Chemistry Order Jun 17, 2022 12:00 Laboratory - CHROMOGRANIN A(ROSE) [facility] AM Chemistry Order SERUM SP ONCE Jun 17, 2022 12:00 Laboratory - COMPREHENSIVE METABOLIC [facility] AM Chemistry Order PANEL+MG PLASMA ONCO SP Lab Results: +/- 30 days of the [...] Range Comment May 20, 2022 09:03 AM [facility] PT/INR(ANTICOAG) Speci men Type: PLASMA No comment enter ed. Ordering Provid er: CATALINA HEAD Report Released Date/Time: Apr 23, 2022 03:52 PM Reporting Lab: [facility] D[facility] [address] Performing Lab: [facility] [id number] .INR 2.1 H 0.8-1.1 .PT 24.9 H 9.4-12.5 May 20, 2022 [facility] COMPREHENSIVE METABOLIC Spec imen Type: PLASMA 09:03 AM PANEL+MG No comment enter ed. Ordering Provid er: LILI GARCIA Report Released Date/Time: Feb 17, 2022 11:17 AM Reporting Lab: [facility] [address] [facility] [address] Performing Lab: [facility] [address] CREATININE 1.0 0.7-1.2 UREA NITROGEN 13 8-26 GLUCOSE 98 70-100 SODIUM 141 136-145 POTASSIUM 4.0 3.5-5.1 CHLORIDE 110 H 98-107 CO2 26 22-29 CALCIUM 8.9 8.4-10.2 PROTEIN,TOTAL 6.7 6.0-8.3 ALBUMIN 3.8 3.5-5.2 BILIRUBIN, TOTAL 1.0 0.2-1.2 MAGNESIUM 2.1 1.6-2.6 ANION GAP 5 5-15 ALKALINE PHOSPHATASE 68 40-150 ALT/SGPT 15 <55 AST/SGOT 20 <34 CREAT EGFR(CKD-EPI) 78 >60 May 20, 2022 09:03 AM [facility] CBC & DIFF Specim en Type: BLOOD Comment: Automa rosalba Differential Performed Ordering Provid er: LILI GARCIA Report Released Date/Time: Feb 17, 2022 11:17 AM Reporting [facility] [address] Performing [facility] [address] WBC 4.78 4.0-11.0 RBC 4.19 L 4.6-6.2 [...] GRAN 0.02 0-0.1 Apr 22, 2022 10:28 [facility] PT/INR(ANTICOAG) Specimen Type: PLASMA AM No comment enter ed. Ordering Provid er: LISETTE LY Report Released Date/Time: Mar 21, 2022 12:27 PM Reporting Lab: [facility] [address] [facility] [address] Performing Lab: [facility] [address] [facility] [address] .INR 2.0 H 0.8-1.1 .PT 22.7 H 9.4-12.5 Apr 22, 2022 10:27 AM [facility] PSA Specim en Type: SERUM No comment enter ed. Ordering Provid er: CLAYTON ROLLE Report Released Date/Time: Apr 04, 2022 09:04 AM Reporting Lab: [facility] [address] [facility] [address] Performing Lab: [facility] [address] [facility] [address] PSA 0.01 <4.00 Apr 22, 2022 10:27 [facility] HEMOGLOBIN A1C Specimen Type: BLOOD AM No comment enter ed. Ordering Provid er: CLAYTON ROLLE Report Released Date/Time: Apr 04, 2022 09:04 AM Reporting Lab: [facility] [address] [facility] [address] Performing Lab: [facility] [address] [facility] [address] HEMOGLOBIN A1C 6.1 H 4.0-6.0 Apr 22, 2022 [facility] LIPID PANEL,NON-FASTING Spec imen Type: PLASMA 10:27 AM No comment enter ed. Ordering Provid er: CLAYTON ROLLE Report Released Date/Time: Apr 04, 2022 09:04 AM Reporting Lab: [facility] [address] [facility] [address] Performing Lab: [facility] [address] CHOLESTEROL 194 <199 .HDL 55 >40 LDL CALCULATION 112 H <99 VLDL CALCULATION 27 <29 NON HDL CHOLESTEROL 139 H <129 TRIG(NON FASTING) 136 <149 Apr 22, 2022 [facility] COMPREHENSIVE METABOLIC Spec imen Type: PLASMA 10:27 AM PANEL+MG No comment enter ed. Ordering Provid er: LILI GARCIA Report Released Date/Time: Feb 17, 2022 11:17 AM Reporting Lab: [facility] [address] [facility] [address] Performing Lab: [facility] [address] CREATININE 1.0 0.7-1.2 UREA NITROGEN 17 8-26 GLUCOSE 96 74-100 SODIUM 139 136-145 POTASSIUM 4.1 3.5-5.1 CHLORIDE 108 H 98-107 CO2 26 22-29 CALCIUM 9.4 8.4-10.2 PROTEIN,TOTAL 6.9 6.0-8.3 ALBUMIN 3.9 3.5-5.2 BILIRUBIN, TOTAL 0.8 0.2-1.2 MAGNESIUM 2.0 1.6-2.6 ANION GAP 5 5-15 ALKALINE PHOSPHATASE 68 40-150 ALT/SGPT 15 <55 AST/SGOT 22 <34 CREAT EGFR(CKD-EPI) 78 >60 Apr 22, 2022 10:27 AM [facility] CBC & DIFF Specim en Type: BLOOD Comment: Automa rosalba Differential Performed Ordering Provid er: LILI GARCIA Report Released Date/Time: Feb 17, 2022 11:17 AM Reporting Lab: [facility] [address] [facility] [address] Performing Lab: [facility] [address] WBC 4.55 4.0-11.0 RBC 4.32 L 4.6-6.2 [...] [place] P 2021 08:26 /min mm[Hg] in [facility] Social History: Smoking Status (Most current) [...] 08:30 AM VA-TOBACCO NEVER USED [place] [facility] Tobacco Use History This section includes a history of the smoking, or tobacco- related health factors, that were collected on or before the date of the Encounter. The data comes from the [place] facility where the Encounter took place. Date/Time Smoking Status/Tobacco Use Comment [facility] May 15, 2021 10:00 AM [place]-TOBACCO NEVER USED [place] [facility] Oct 05, 2019 10:05 AM VA-TOBACCO NEVER USED [facility] [facility] [facility] Oct 20, 2018 12:28 PM INPT NO TOBACCO USE IN LAST 30 DAYS [facility] Sep 15, 2018 01:21 PM VA-TOBACCO NEVER USED [place] [facility] Aug 11, 2017 08:54 AM LIFETIME NON-TOBACCO USER [facility] Jul 08, 2016 08:07 AM LIFETIME NON-TOBACCO USER [facility] May 09, 2015 02:31 PM LIFETIME NON-TOBACCO USER [facility] Apr 14, 2014 08:41 AM LIFETIME NON-TOBACCO USER [facility] Jan 06, 2007 08:51 AM LIFETIME NON-TOBACCO USER [facility] Radiology Reports: +/- 30 days of the [...] the Encounter. The data comes from all [place] treatment facilities. Date/Time Radiology Report Provider Source Apr 29, 2022 08:32 CT (C) CHEST (P): HEIDI EDWARDS [facility] AM ELLE CORONEL [id number] -[birth year] M Exm Date: APR 29, 2022@08:32 Req Phys: CLAYTON ROLLE Pat Loc: [facility] PACT CREAM 4E (Req'g Loc) Img Loc: CT IMAGING Service: Unknown (Case [id number] COMPLETE) CT (C) CHEST W/O CONTRAST (C T Detailed) CPT:77971 Reason for Study: follow up pnemonia Clinical History: pneumonia in lingula seen on CT scan at [place] 2021, s/p antibiotics with some residual symptoms, f/u fo r resolution [place] IS NOT under investigation for COVID-19 or is COVID-19 negative Defer to radiologist for final CT protocol. Responsible provider name and phone number to n otify for critical findings if other than user placing the order a nd pager listed below: User placing orders pager: [phone] LAST 3: Collection DT Specimen Test Name [...] PLASMA ESTIMATED GFR(eGF >60 Ref: >=60 Allergies: ([place] only) DIAL SOAP (Mar 25, 2007) NAPROXEN (February 05, 2011 ) Report Status: Verified Date Reported: APR 30, 2022 Date Verified: APR 30, 2022 Business Intelligence Consultant E-Sig:/ES/HEIDI EDWARDS MD Report: Exam: CT chest without intravenous contrast, History: Follow-up pneumonia. History of pneumo mikal in the lingula on CT scan at [facility] February 2022. Status pos t [...] direct correlation with outside CT examination from [facility] 2021 would be of benefit to [...] PET CT imaging. Primary Interpreting Staff: HEIDI EDWARSD MD, RADIOLOGIST (Business Intelligence Consultant) /BJB Apr 22, 2022 09:24 FOOT RIGHT 3 VIEWS OR MORE: TIMBO CONTRERAS [facility] THEA CORONELELLE [id number] -[birth year] M Exm Date: APR 22, 2022@09:24 Req Phys: RUEL JESUS Pat Loc: [facility] P OD RAMPETSREITER CONSULT Img Loc: MAIN X-RAY Service: Unknown (Case [id number] COMPLETE) FOOT RIGHT 3 VIEWS OR MORE ( RAD Detailed) CPT:76769 Proc Modifiers : RIGHT, WEIGHT BEARING Reason for Study: Pain Clinical History: [place] IS NOT under investigation for COVID-19 or is COVID-19 negative Posterior heel pain. Responsible provider name and phone number to notify for critical findings if other than user placing the order and pager listed below: User placing orders pager: [phone] LAST CREATININE 1.0 (02/17/22) Report Status: Verified Date Reported: APR 22, 2022 Date Verified: APR 22, 2022 Business Intelligence Consultant E-Sig:/ES/TIMBO CONTRERAS DO Report: EXAMINATION: FOOT RIGHT [...] Primary Interpreting Staff: TIMBO CONTRERAS DO, RADIOLOGIST (Business Intelligence Consultant) /DDS Encounter Notes: All associated encounter notes This section contains the clinical notes associated to the Encounter. Date/Time Encounter Note(s) Provider Source May 20, 2022 02:34 PM PHARMACY OUTPATIENT MEDICATION MGT NOTE: CATALINA KAM [facility] LOCAL TITLE: PHARMACY ANTICOAGULATION CLINIC F/ U STANDARD TITLE: PHARMACY OUTPATIENT MEDICATION M GT NOTE DATE OF NOTE: MAY 20, 2022@14:34 ENTRY DATE: MAY 20, 2022@14:34:30 AUTHOR: CATALINA HEAD EXP COSIGNER: URGENCY: STATUS: [...] home phone. Care Coordination: - Local Lab: [facility] Direct P: [phone]; F: [phone] , F: [phone] *[facility] labs valid: 03/27/21-09/23/21, new consult placed 04/23/22 SUBJECTIVE/OBJECTIVE: History obtained from patient today at . No: Health changes: No: Pending procedures: No: Bleeding or thromboembolic signs/symptoms or falls: No: Medication changes/significant drug interact ions - Continues: APAP 500mg 1-2x/wk; not new & no r ecent changes No: Dietary changes: - Baseline vit K: ~0-1 servings of greens weekl y (usually broccoli) Yes: Alcohol/tobacco use: - None for the past 10 days - Baseline ~1-2 drinks per week. No: Dosing discrepancies: Warfarin dose: 7.5mg TuTh & 5mg all other days ( 40mg/wk); AM Collection DT *INR mg in last 7 days 05/20/2022 09:03 PLASM 2.1 40 pre-op call 04/22/2022 10:28 PLASM 2.0 40 letter 03/20/2022 local 2.05 40 letter 02/18/2022 local 2.19 40 letter 01/21/2022 local 2.1 40 01/07/2022 local 1.62 40 12/10/2021 local 2.25 40 letter 11/26/2021 09:07 BLOOD 1.8 40 letter + 10/29/2021 09:12 PLASM 2.2 40 letter Other labs: Collection DT Spec WBC HGB HCT PLT MCV NEUT LYMP HS 05/20/2022 09:03 BLOOD 4.78 14.1 41.6 201 99.3 5 6.1 24.9 04/22/2022 10:27 BLOOD 4.55 14.5 43.0 211 99.5 5 2.6 26.8 02/17/2022 08:35 BLOOD 5.24 14.6 43.5 202 99.5 5 9.3 24.4 *Followed by [facility] ASSESSMENT/PLAN: Therapeutic INR. Interruption of therapy planned for surgery on 06/06/22. See consult for details. - [facility]; updated with next INR date today. We should get new Auth# and valid dates soon. - Warfarin dose: CONTINUE 7.5mg TuTh & 5mg all other days (40mg/wk) - Next INR: 06/12/22 at local lab - Rx assessed - [facility] lab approval req 04/23/22; awaiting Auth# and valid dates - See AC Consult for bridge plans MTM: 15 min. Education on Tr eatment Plan: Patient indicates readiness to learn, verbalizes understanding, agreement and satisfac tion with the treatment plan. Denies further questions. /mustapha/ CATALINA HEAD [facility] Clinical Television Announcer Signed: 05/20/2022 14:41 05/20/2022 ADDENDUM STATUS: COMPLETED CBC stable. /kanchan [facility] Clinical Television Announcer Signed: 05/20/2022 14:43
--- OUTSIDE RECORDS SUMMARY | 2022-06-06 12:10 | XMS_ITS | Encounter Summary ---
:1945 Author Organization Department [facility] rs Address [address] [place] [id number] Support Name Relationship Address Phone Arti CORONEL Unavailable [address] [place] [address] ADITYA MALIN Unavailable [address] [place] [id number] Insurance Providers: All historical and current Section [...] MEDICARE MEDICARE PART May 15, PART B [id number] 800 HOMER HUNTER (WNR) (M) B 2008 [id number] [phone] ,ELLE MEDICARE MEDICARE PART May 15, PART A [id number] 800 HOMER HUNTER (WNR) (M) A [id number] ,ELLE Selected Encounter This section includes the information on record at [place] for the Encounter. Date/Time Encounter Type Encounter Reason Provider Source Description May 20, 2022 ELECTROCARDIOGRAM EKG ICD-10-CM Z13.6 LEIGH US 08:00 AM COMPLETE Encounter for ZI screening for cardiovascular disorders with Provider Comments: Encounter for Screening for Cardiovascular Disorders IHE Encounter Template Text not used by [place] Assessments - Encounter Diagnoses This section includes the primary and secondary diagnoses documented for the Encounter. Date/Time Primary/Secondary Diagnosis Name Provider Source Diagnosis May 20, 2022 PRIMARY Encounter for [facility] 03:27 PM screening for HCS cardiovascular disorders Plan of Treatment: Future Appointments (+ 6 months) and Future Tests (+/- 45 days) The Plan of Treatment section includes future care activities for the patient from all [place] [facility]. This section includes future appointments and future orders which are active, pending orscheduled.Future Appointments This section includes appointments that were scheduled to occur 6 months from the date of the Encounter, up to a maximum of 20 appointments. The data comes from all [facility]. Appointment Date/Time Appointment Type Appointment Facili ty Name May 23, 2022 02:45 PM AMBULATORY - SURGERY [facility] S Jun 17, 2022 08:00 AM AMBULATORY - NONE [facility] Jun 17, 2022 09:00 AM AMBULATORY - MEDICINE [facility] Jun 17, 2022 09:30 AM AMBULATORY - MEDICINE [facility] Active, Pending, and Scheduled [...] the Encounter. The data comes from all [facility]. Test Date/Time Test Type Test Details Facility Name Jun 06, 2022 06:00 Laboratory - COVID-19 DIAGNOSTIC PANEL [facility] AM Chemistry Order (CEPHEID) NASOPHARYNGEAL SWAB SP ONCE Jun 06, 2022 06:00 Laboratory - PROTHROMBIN TIME/INR [facility] AM Chemistry Order PLASMA SP ONCE Jun 17, 2022 12:00 Laboratory - CBC & DIFF BLOOD ONCO SP [facility] AM Chemistry Order ONCE Jun 17, 2022 12:00 Laboratory - COMPREHENSIVE METABOLIC [facility] Chemistry Order PANEL+MG PLASMA ONCO SP Jun 17, 2022 12:00 Laboratory - CHROMOGRANIN A(ROSE) [facility] AM Chemistry Order SERUM SP ONCE Jun 17, 2022 12:00 Laboratory - SEROTONIN SERUM SP ONCE [facility] AM Chemistry Order Lab Results: +/- 30 days [...] Range Comment May 20, 2022 09:03 AM [facility] PT/INR(ANTICOAG) Speci men Type: PLASMA No comment enter ed. Ordering Provid er: CATALINA HEAD Report Released Date/Time: Apr 23, 2022 03:52 PM Reporting Lab: [facility] [address] [facility] [address] Performing Lab: [facility] [address] .INR 2.1 H 0.8-1.1 .PT 24.9 H 9.4-12.5 May 20, 2022 [facility] COMPREHENSIVE METABOLIC Spec imen Type: PLASMA 09:03 AM PANEL+MG No comment enter ed. Ordering Provid er: LILI GARCIA Report Released Date/Time: Feb 17, 2022 11:17 AM Reporting Lab: [facility] [address] Performing Lab: [facility] [address] CREATININE 1.0 0.7-1.2 UREA NITROGEN 13 8-26 GLUCOSE 98 70-100 SODIUM 141 136-145 POTASSIUM 4.0 3.5-5.1 CHLORIDE 110 H 98-107 CO2 26 22-29 CALCIUM 8.9 8.4-10.2 PROTEIN,TOTAL 6.7 6.0-8.3 ALBUMIN 3.8 3.5-5.2 BILIRUBIN, TOTAL 1.0 0.2-1.2 MAGNESIUM 2.1 1.6-2.6 ANION GAP 5 5-15 ALKALINE PHOSPHATASE 68 40-150 ALT/SGPT 15 <55 AST/SGOT 20 <34 CREAT EGFR(CKD-EPI) 78 >60 May 20, 2022 09:03 AM [facility] CBC & DIFF Specim en Type: BLOOD Comment: Automa rosalba Differential Performed Ordering Provid er: LILI GARCIA Report Released Date/Time: Feb 17, 2022 11:17 AM Reporting Lab: [facility] [address] [facility] [address] Performing Lab: [facility] [address] WBC 4.78 4.0-11.0 RBC 4.19 L 4.6-6.2 [...] GRAN 0.02 0-0.1 Apr 22, 2022 10:28 [facility] PT/INR(ANTICOAG) Specimen Type: PLASMA AM No comment enter ed. Ordering Provid er: LISETTE LY Report Released Date/Time: Mar 21, 2022 12:27 PM Reporting Lab: [facility] [address] [facility] [address] Performing [facility]: [facility] [address] .INR 2.0 H 0.8-1.1 .PT 22.7 H 9.4-12.5 Apr 22, 2022 10:27 [facility] HEMOGLOBIN A1C Specimen Type: BLOOD AM No comment enter ed. Ordering Provid er: CLAYTON ROLLE Report Released Date/Time: Apr 04, 2022 09:04 AM Reporting Lab: [facility] [address] [facility] [address] Performing Lab: [facility] [address] [facility] [address] HEMOGLOBIN A1C 6.1 H 4.0-6.0 Apr 22, 2022 10:27 AM [facility] PSA Specim en Type: SERUM No comment enter ed. Ordering Provid er: CLAYTON ROLLE Report Released Date/Time: Apr 04, 2022 09:04 AM Reporting Lab: [facility] [address] [facility] [address] Performing Lab: [facility] [address] [facility] [address] PSA 0.01 <4.00 Apr 22, 2022 [facility] LIPID PANEL,NON-FASTING Spec imen Type: PLASMA 10:27 AM No comment enter ed. Ordering Provid er: CLAYTON ROLLE Report Released Date/Time: Apr 04, 2022 09:04 AM Reporting Lab: [facility] [address] [address] Performing Lab: [facility] [address] CHOLESTEROL 194 <199 .HDL 55 >40 LDL CALCULATION 112 H <99 VLDL CALCULATION 27 <29 NON HDL CHOLESTEROL 139 H <129 TRIG(NON FASTING) 136 <149 Apr 22, 2022 [facility] COMPREHENSIVE METABOLIC Spec imen Type: PLASMA 10:27 AM PANEL+MG No comment enter ed. Ordering Provid er: LILI GARCIA Report Released Date/Time: Feb 17, 2022 11:17 AM Reporting [facility] [address] Performing Lab: [facility] [address] CREATININE 1.0 0.7-1.2 UREA NITROGEN 17 8-26 GLUCOSE 96 74-100 SODIUM 139 136-145 POTASSIUM 4.1 3.5-5.1 CHLORIDE 108 H 98-107 CO2 26 22-29 CALCIUM 9.4 8.4-10.2 PROTEIN,TOTAL 6.9 6.0-8.3 ALBUMIN 3.9 3.5-5.2 BILIRUBIN, TOTAL 0.8 0.2-1.2 MAGNESIUM 2.0 1.6-2.6 ANION GAP 5 5-15 ALKALINE PHOSPHATASE 68 40-150 ALT/SGPT 15 <55 AST/SGOT 22 <34 CREAT EGFR(CKD-EPI) 78 >60 Apr 22, 2022 10:27 AM [facility] CBC & DIFF Specim en Type: BLOOD Comment: Automa rosalba Differential Performed Ordering Provid er: LILI GARCIA Report Released Date/Time: Feb 17, 2022 11:17 AM Reporting Lab: [facility] [address] [facility] [address] Performing Lab: [facility] [address] WBC 4.55 4.0-11.0 RBC 4.32 L 4.6-6.2 [...] [place] P 2021 08:26 /min mm[Hg] in [facility] Social History: Smoking Status (Most current) [...] Comment Facility Apr 04, 2022 08:30 AM [place] [facility] [facility] Tobacco Use History This section includes a history of the smoking, or tobacco- related health factors, that were collected on or before the date of the Encounter. The data comes from the [place] facility where the Encounter took place. Date/Time Smoking Status/Tobacco Use Comment [facility] May 15, 2021 10:00 AM [place]-TO[place] USED [place] [facility] Oct 05, 2019 10:05 AM [place]-TOBACCO [place] USED [place] [facility] Oct 20, 2018 12:28 PM INPT NO TOBACCO USE IN LAST 30 DAYS [facility] Sep 15, 2018 01:21 PM [place]-TOBACCO NEVER USED [place] [facility] Aug 11, 2017 08:54 AM LIFETIME NON-TOBACCO USER [facility] Jul 08, 2016 08:07 AM LIFETIME NON-TOBACCO USER [facility] May 09, 2015 02:31 PM LIFETIME NON-TOBACCO USER [facility] Apr 14, 2014 08:41 AM LIFETIME NON-TOBACCO USER [facility] Jan 06, 2007 08:51 AM LIFETIME NON-TOBACCO USER [facility] Radiology Reports: +/- 30 days of the [...] data comes from all [place] treatment facilities. Date/Time Radiology Report Provider Source Apr 29, 2022 08:32 CT (C) CHEST (P): HEIDI EDWARDS [facility] AM ELLE CORONEL [id number] -[birth year] M Exm Date: APR 29, 2022@08:32 Req Phys: CLAYTON ROLLE Loc: [facility] PACT CREAM 4E (Req'g Loc) Img Loc: CT IMAGING Service: Unknown (Case [id number] COMPLETE) CT (C) CHEST W/O CONTRAST (C T Detailed) CPT:15933 Reason for Study: follow up pnemonia Clinical History: pneumonia in lingula seen on CT scan at [place] 2021, s/p antibiotics with some residual symptoms, f/u fo r resolution IS NOT under investigation for COVID-19 or is COVID-19 negative Defer to radiologist for final CT protocol. Responsible provider name and phone number to n otify for critical findings if other than user placing the order a nd pager listed below: User placing orders pager: [phone] LAST 3: Collection DT Specimen Test Name [...] PLASMA ESTIMATED GFR(eGF >60 Ref: >=60 Allergies: ([place] only) DIAL SOAP (Mar 25, 2007) NAPROXEN (February 05, 2011 ) Report Status: Verified Date Reported: APR 30, 2022 Date Verified: APR 30, 2022 Stone Crusher Operator E-Sig:/ES/HEIDI EDWARDS MD Report: Exam: CT chest without intravenous contrast, History: Follow-up pneumonia. History of pneumo mikal in the lingula on CT scan at [facility] February 2022. Status pos t antibiotics. [...] Primary Interpreting Staff: HEIDI EDWARDS MD, RADIOLOGIST (Stone Crusher Operator) /BJB Apr 22, 2022 09:24 FOOT RIGHT 3 VIEWS OR MORE: TIMBO CONTRERAS [facility] EL[place] CORONEL [id number] -[birth year] M Ex Date: APR 22, 2022@09:24 Req Phys: RUEL JESUS Pat Loc: [facility] P OD EDIN CONSULT Img Loc: MAIN X-RAY Service: Unknown (Case [id number] COMPLETE) FOOT RIGHT 3 VIEWS OR MORE ( RAD Detailed) CPT:58637 Proc Modifiers : RIGHT, WEIGHT BEARING Reason for Study: Pain Clinical History: [place] IS NOT under investigation for COVID-19 or is COVID-19 negative Posterior heel pain. Responsible provider name and phone number to notify for critical findings if other than user placing the order and pager listed below: User placing orders pager: [phone] LAST CREATININE 1.0 (02/17/22) Report Status: Verified Date Reported: APR 22, 2022 Date Verified: APR 22, 2022 Stone Crusher Operator E-Sig:/ES/TIMBO CONTRERAS DO Report: EXAMINATION: FOOT [...] Primary Interpreting Staff: TIMBO CONTRERAS DO, RADIOLOGIST (Stone Crusher Operator) /DDS
--- OUTSIDE RECORDS SUMMARY | 2022-06-06 12:10 | XMS_ITS | Encounter Summary ---
:1945 Author Organization [facility] Address [address] [place] [id number] Support Name Relationship Address Phone Arti CORONEL Unavailable [address] [place] [address] ADITYA MALIN Unavailable [address] SHAWANDA [phone] [place] [id number] Insurance Providers: All historical and current Section [...] MEDICARE MEDICARE PART May 15, PART A [id number] 800 HOMER HUNTER (WNR) (M) A 2008 [id number] [phone] ,ELLE MEDICARE MEDICARE PART May 15, PART B [id number] 800 HOMER HUNTER (WNR) (M) B 2008 [id number] ,ELLE Selected Encounter This section includes the information on record at [place] for the Encounter. 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 This section includes future appointments and future orders which are active, pending orscheduled.Future Appointments This section includes appointments that were scheduled to occur 6 months from the date of the Encounter, up to a maximum of 20 appointments. The data comes from all [place] treatment [facility]. Appointment Date/Time Appointment Type Appointment Facili ty Name May 23, 2022 02:45 PM AMBULATORY - SURGERY [facility] S Jun 17, 2022 08:00 AM AMBULATORY - NONE [facility] Jun 17, 2022 09:00 AM AMBULATORY - MEDICINE [facility] CS Jun 17, 2022 09:30 AM AMBULATORY - MEDICINE [facility] Active, Pending, and Scheduled Orders This [...] The data comes from all [place] treatment [facility]. Test Date/Time Test Type Test Details Facility Name Jun 06, 2022 06:00 Laboratory - PROTHROMBIN TIME/INR [facility] AM Chemistry Order PLASMA SP ONCE Jun 06, 2022 06:00 Laboratory - COVID-19 DIAGNOSTIC PANEL [facility] AM Chemistry Order (CEPHEID) NASOPHARYNGEAL SWAB SP ONCE Jun 17, 2022 12:00 Laboratory - [facility] & [facility] Chemistry Order ONCE Jun 17, 2022 12:00 Laboratory - COMPREHENSIVE METABOLIC [facility] AM Chemistry Order PANEL+MG PLASMA ONCO SP Jun 17, 2022 12:00 Laboratory - SEROTONIN SERUM SP ONCE [facility] AM Chemistry Order Jun 17, 2022 12:00 Laboratory - CHROMOGRANIN A(ROSE) [facility] AM Chemistry Order SERUM SP ONCE Lab [...] Range Comment May 20, 2022 09:03 AM [facility] PT/INR(ANTICOAG) Speci men Type: PLASMA No comment enter ed. Ordering Provid er: CATALINA HEAD Report Released Date/Time: Apr 23, 2022 03:52 PM Reporting Lab: [facility] [id number] Performing Lab: [facility] [id number] .INR 2.1 H 0.8-1.1 .PT 24.9 H 9.4-12.5 May 20, 2022 [facility] COMPREHENSIVE METABOLIC Spec imen Type: PLASMA 09:03 AM PANEL+MG No comment enter ed. Ordering Provid er: LILI GARCIA Report Released Date/Time: Feb 17, 2022 11:17 AM Reporting Lab: [facility] [address] Performing Lab: [facility] [id number] CREATININE 1.0 0.7-1.2 UREA NITROGEN 13 8-26 GLUCOSE 98 70-100 SODIUM 141 136-145 POTASSIUM 4.0 3.5-5.1 CHLORIDE 110 H 98-107 CO2 26 22-29 CALCIUM 8.9 8.4-10.2 PROTEIN,TOTAL 6.7 6.0-8.3 ALBUMIN 3.8 3.5-5.2 BILIRUBIN, TOTAL 1.0 0.2-1.2 MAGNESIUM 2.1 1.6-2.6 ANION GAP 5 5-15 ALKALINE PHOSPHATASE 68 40-150 ALT/SGPT 15 <55 AST/SGOT 20 <34 CREAT EGFR(CKD-EPI) 78 >60 May 20, 2022 09:03 AM [facility] CBC & DIFF Specim en Type: BLOOD Comment: Automa rosalba Differential Performed Ordering Provid er: LILI GARCIA Report Released Date/Time: Feb 17, 2022 11:17 AM Reporting Lab: [facility] [address] Performing Lab: [facility] [address] WBC 4.78 4.0-11.0 RBC 4.19 L 4.6-6.2 [...] GRAN 0.02 0-0.1 Apr 22, 2022 10:28 [facility] PT/INR(ANTICOAG) Specimen Type: PLASMA AM No comment enter ed. Ordering Provid er: LISETTE LY Report Released Date/Time: Mar 21, 2022 12:27 PM Reporting Lab: [facility] [address] [employer] [address] Performing Lab: [facility] [address] [facility] [address] .INR 2.0 H 0.8-1.1 .PT 22.7 H 9.4-12.5 Apr 22, 2022 10:27 [facility] HEMOGLOBIN A1C Specimen Type: BLOOD AM No comment enter ed. Ordering Provid er: CLAYTON ROLLE Report Released Date/Time: Apr 04, 2022 09:04 AM Reporting Lab: [facility] [address] [employer] [address] Performing Lab: [facility] [address] [employer] [address] HEMOGLOBIN A1C 6.1 H 4.0-6.0 Apr 22, 2022 10:27 AM [facility] PSA Specim en Type: SERUM No comment enter ed. Ordering Provid er: CLAYTON ROLLE Report Released Date/Time: Apr 04, 2022 09:04 AM Reporting Lab: [facility] [address] [employer] [address] Performing Lab: [facility] [address] [employer] [address] PSA 0.01 <4.00 Apr 22, 2022 [facility] LIPID PANEL,NON-FASTING Spec imen Type: PLASMA 10:27 AM No comment enter ed. Ordering Provid er: CLAYTON ROLLE Report Released Date/Time: Apr 04, 2022 09:04 AM Reporting Lab: [facility] [address] Performing Lab: [facility] [address] CHOLESTEROL 194 <199 .HDL 55 >40 LDL CALCULATION 112 H <99 VLDL CALCULATION 27 <29 NON HDL CHOLESTEROL 139 H <129 TRIG(NON FASTING) 136 <149 Apr 22, 2022 [facility] COMPREHENSIVE METABOLIC Spec imen Type: PLASMA 10:27 AM PANEL+MG No comment enter ed. Ordering Provid er: LILI GARCIA Report Released Date/Time: Feb 17, 2022 11:17 AM Reporting Lab: [facility] [address] Performing Lab: [facility] [address] CREATININE 1.0 0.7-1.2 UREA NITROGEN 17 8-26 GLUCOSE 96 74-100 SODIUM 139 136-145 POTASSIUM 4.1 3.5-5.1 CHLORIDE 108 H 98-107 CO2 26 22-29 CALCIUM 9.4 8.4-10.2 PROTEIN,TOTAL 6.9 6.0-8.3 ALBUMIN 3.9 3.5-5.2 BILIRUBIN, TOTAL 0.8 0.2-1.2 MAGNESIUM 2.0 1.6-2.6 ANION GAP 5 5-15 ALKALINE PHOSPHATASE 68 40-150 ALT/SGPT 15 <55 AST/SGOT 22 <34 CREAT EGFR(CKD-EPI) 78 >60 Apr 22, 2022 10:27 AM [facility] CBC & DIFF Specim en Type: BLOOD Comment: Automa rosalba Differential Performed Ordering Provid er: LILI GARCIA Report Released Date/Time: Feb 17, 2022 11:17 AM Reporting Lab: [facility] [phone] Performing Lab: [facility] [address] WBC 4.55 4.0-11.0 RBC 4.32 L 4.6-6.2 [...] 04, 2022 08:30 AM [place]-TOBACCO [facility] Tobacco Use History This section includes a history of the smoking, or tobacco- related health factors, that were collected on or before the date of the Encounter. The data comes from the [place] facility where the Encounter took place. Date/Time Smoking Status/Tobacco Use Comment [facility] May 15, 2021 10:00 AM [place]-TOBACCO NEVER USED [place] [facility] Oct 05, 2019 10:05 AM [place]-TOBACCO NEVER USED [place] [facility] Oct 20, 2018 12:28 PM INPT NO TOBACCO USE IN LAST 30 DAYS [facility] Sep 15, 2018 01:21 PM [place]-TOBACCO NEVER USED [place] [facility] Aug 11, 2017 08:54 AM LIFETIME NON-TOBACCO USER [facility] Jul 08, 2016 08:07 AM LIFETIME NON-TOBACCO USER [facility] May 09, 2015 02:31 PM LIFETIME NON-TOBACCO USER [facility] Apr 14, 2014 08:41 AM LIFETIME NON-TOBACCO USER [facility] Jan 06, 2007 08:51 AM LIFETIME NON-TOBACCO USER [facility] Radiology Reports: +/- 30 days [...] 08:32 CT (C) CHEST (P): HEIDI EDWARDS [facility] AM ELLE CORONEL [id number] -[birth year] 3 M Exm Date: APR 29, 2022@08:32 Req Phys: CLAYTON ROLLE Loc: [facility] PACT CREAM 4E (Req'g Loc) Img Loc: CT IMAGING Service: Unknown (Case [id number] COMPLETE) CT (C) CHEST W/O CONTRAST (C T Detailed) CPT:71110 Reason for Study: follow up pnemonia Clinical History: pneumonia in lingula seen on CT scan at [place] 2021, s/p antibiotics with some residual symptoms, f/u fo r resolution IS NOT under investigation for COVID-19 or is COVID-19 negative Defer to radiologist for final CT protocol. Responsible provider name and phone number to n otify for critical findings if other than user placing the order a nd pager listed below: User placing orders pager: [phone] LAST 3: Collection DT Specimen Test Name [...] PLASMA ESTIMATED GFR(eGF >60 Ref: >=60 Allergies: ([facility] only) DIAL SOAP (Mar 25, 2007) NAPROXEN (February 05, 2011 ) Report Status: Verified Date Reported: APR 30, 2022 Date Verified: APR 30, 2022 High Reach Operator E-Sig:/ES/HEIDI EDWARDS MD Report: Exam: CT chest without intravenous contrast, History: Follow-up pneumonia. History of pneumo mikal in the lingula on CT scan at [facility] February 2022. Status pos t antibiotics. [...] Primary Interpreting Staff: HEIDI EDWARDS MD, RADIOLOGIST (High Reach Operator) /BJB Apr 22, 2022 09:24 FOOT RIGHT 3 VIEWS OR MORE: TIMBO CONTRERAS [facility] ELLE CORONEL [id number] -[birth year] M Ex Date: APR 22, 2022@09:24 Req Phys: RUEL JESUS Pat Loc: [facility] P OD EDIN CONSULT Img Loc: MAIN X-RAY Service: Unknown (Case [id number] COMPLETE) FOOT RIGHT 3 VIEWS OR MORE ( RAD Detailed) CPT:43750 Proc Modifiers : RIGHT, WEIGHT BEARING Reason for Study: Pain Clinical History: [place] IS NOT under investigation for COVID-19 or is COVID-19 negative Posterior heel pain. Responsible provider name and phone number to notify for critical findings if other than user placing the order and pager listed below: User placing orders pager: [phone] LAST CREATININE 1.0 (02/17/22) Report Status: Verified Date Reported: APR 22, 2022 Date Verified: APR 22, 2022 High Reach Operator E-Sig:/ES/TIMBO CONTRERAS DO Report: EXAMINATION: FOOT [...] Primary Interpreting Staff: TIMBO CONTRERAS DO, RADIOLOGIST (High Reach Operator) /DDS Encounter Notes: All associated encounter notes This section contains the clinical notes associated to the Encounter. Date/Time Encounter Note(s) Provider Source May 21, 2022 09:30 AM [facility] LOC[facility] TITLE: FOLLOW UP RESULTS LETTER STANDARD TITLE: LETTERS DATE OF NOTE: MAY 21, 2022@09:30 ENTRY DATE: MAY 21, 2022@09:30:52 AUTHOR: CATALINA HEAD EXP COSIGNER: URGENCY: STATUS: COMPLETED [facility] [address] [place] [address] May ELLE CORONEL [address] [facility] [address] Dear : We wanted to send you written instructions for i nterruption of your blood thinner for your upcoming procedure on Jun 06 22: BEFORE THE PROCEDURE: - NO warfarin for 5 days before procedure: 06/01- 06/05/22. - BEGIN enoxaparin injections on Thursday06/02/22 in the PM, in a dose of 100mg under the skin every 12 hours. - LAST pre-op dose of enoxaparin in the AM on , 06/05/22 and then STOP until AFTER yur procedure. o You must be OFF of BOTH warfarin and enoxapar in at the time of the procedure, to minimize the chances of a bleedin g complication. AFTER THE PROCEDURE: - If there are no major bleeding complications, RESUME warfarin the day after the procedure [] unless otherwise instructed by the proceduralist. - INCREASE to: 10mg on 06/07 and 06/08, then resum e usual warfarin dose. - Unless otherwise directed, RESUME enoxaparin in the AM on 06/08/22, in a dose of 100mg under the skin every 12 hours. [held one day longer than we discussed due to bleed risk] - You will need to continue both warfarin tablet s and enoxaparin injections after the procedure, until your INR test shows t hat the warfarin is able to provide complete protection all by itself. At th at time, the [facility] staff can stop the enoxaparin injections, and rely on serafin rashid alone. - Test INR 06/12/22 at your local lab, early in A M so we can hopefully get same day results If this procedure is rescheduled and new instruc tions are needed OR changes in your health (ie: clotting complications, stro ke) occur between now and the time of the procedure, please contact us at [phone], option 3. Your anticoagulant should not be held if the pro cedure is cancelled. As a reminder, you may be at a slightly higher c lotting risk any time your blood thinner is stopped. However, the surgeon h as determined it is unsafe to perform this surgery without stopping your bl ood thinner due to bleeding concerns. Although unlikely, please monitor for any signs or symptoms of clotting and get checked out right away if you e xperience any of these. If you ever have any questions or problems, incl uding any signs of bleeding, medication changes, or surgeries or procedures c oming up, you can always give our office a call. We hope you are doing well. Thank you for your s ervice. Sincerely, [facility] Team --------- Phone number: [phone] -option 1 to schedule or reschedule an appointm ent -option 2 to refill medications or call the chuyita ne number on the bottle -option 3 for all other communication Fax number: [phone] Clinic Hours: Thursday-Thursday, 8:00am to 4:00pm (e xcluding hols) CATALINA HEAD [facility] Clinical Administrative Operations Coordinator May 21, 2022 07:33 AM MEDICATION MGT CONSULT: [facility] LOC[facility] TITLE: ANTICOAGULATION CLINIC CONSULT STANDARD TITLE: MEDICATION MGT CONSULT DATE OF NOTE: MAY 21, 2022@07:33 ENTRY DATE: MAY 21, 2022@07:33:47 AUTHOR: CATALINA HEAD EXP COSIGNER: URGENCY: STATUS: COMPLETED ANTICOAGULATION CLINIC CONSULT Has ADDENDA WARFARIN PERIOP Warfarin Indication: Afib Secondary Indication: - Dx with [...] lifelong - HAS-BLED = 2 (age, h/o CVA)= Moderate risk - CHADS2-VASC = 5 (age x2, h/o CVA x2, HTN)= Mod erate risk - Risk of recurrent VTE (Chest 2016): - Provoked after surgery: 3% in 5 years - Unprovoked: 30% in 5 years (continue unless h igh bleed risk) DOAC Assessment (10/21/2019): Not a candidate due to failure with apixaban. Notes: OK to call on cell phone if not available at home phone. Care Coordination: - Local Lab: [facility] Direct P: [phone]; F: [phone] , F: [phone] *[facility] labs valid: 03/27/21-09/23/21, new consult placed 04/23/22 S/O: ---- Obtained by chart review. Type of procedure: Right ankle surgery Date of procedure: 06/06 Bleed risk for procedure: Moderate Please identify the level of anticoagulation rev ersal necessary for this procedure: Warfarin: INR less than 1.3 (INR 1.[address] Peter) Thromboembolic/Bleed Risk: see above LABS ---- Age: 76 Height: 70.669 in [179.5 cm] (05/20/2022 08:26) Weight: 223 lb [101.15 kg] (05/20/2022 08:26) CREATININE 1.0 PLASMA (05/20/22 09:03) 1.0 PLASMA (04/22/22 10:27) 1.0 PLASMA (02/17/22 08:35) Cockcroft & Gault ([place]upiter body weight) = 65 mL/mi n Enoxaparin dose= 1mg/kg q12h= 100mg q12h Collection DT Spec WBC HGB HCT PLT MCV NEUT LYMP HS 05/20/2022 09:03 BLOOD 4.78 14.1 41.6 201 99.3 5 6.1 24.9 04/22/2022 10:27 BLOOD 4.55 14.5 43.0 211 99.5 5 2.6 26.8 02/17/2022 08:35 BLOOD 5.24 14.6 43.5 202 99.5 5 9.3 24.4 Warfarin dose: 7.5mg TuTh & 5mg all other days ( 40mg/wk); AM Collection DT *INR mg in last 7 days 05/20/2022 09:03 PLASM 2.1 40 pre-op 04/22/2022 10:28 PLASM 2.0 40 letter 03/20/2022 local 2.05 40 letter 02/18/2022 local 2.19 40 letter 01/21/2022 local 2.1 40 01/07/2022 local 1.62 40 12/10/2021 local 2.25 40 letter 11/26/2021 09:07 BLOOD 1.8 40 letter + VM 10/29/2021 09:12 PLASM 2.2 40 letter A/P: ---- - Pt is a moderate bleed risk having a moderate bleed risk surgery. - Enoxaparin bridging warranted d/t high clot ri sk: DVT with previous surgeries, active CA may increase DVT risk. If we were treating for Afib alone, enoxaparin would not be advised. If this procedure is rescheduled OR changes in health (ie: clotting complications, stroke) occur between now and the time of the procedure, anticoagulation clinic should be contacted. Serafin rashid should not be held if procedure is cancelled. WARFARIN BRIDGING: BEFORE THE PROCEDURE: - NO warfarin for 5 days before procedure: NO warfarin: 06/01-06/05/22. [The last dose taken preoperatively is 6 days b efore the procedure] - BEGIN enoxaparin injections on Thursday06/02/22 in the PM, in a dose of 100mg under the skin every 12 hours. - LAST pre-op dose of enoxaparin in the AM on , 06/05/22 and then STOP, in preparation for the procedure on 06/06/22. o You must be OFF of BOTH warfarin and enoxapar in at the time of the procedure, to minimize the chances of a bleedin g complication. AFTER THE PROCEDURE: - If there are no major bleeding complications, RESUME warfarin the day after the procedure [06/07] unless otherwise instructe d by the proceduralist. - INCREASE to: 10mg on 06/07 and 06/08, then resum e usual warfarin dose. [37.5mg by next INR] - Unless otherwise directed by the staff performing the procedure, RESUME taking enoxaparin in the AM on 06/08/22, in a do se of 100mg under the skin every 12 hours. [held one day longer than we dis cussed due to possible bleed risk] - You will need to continue both warfarin tablet s and enoxaparin injections after the procedure, until your INR test shows t hat the warfarin is able to provide complete protection all by itsel f. At that time, the [facility] staff can stop the enoxaparin injections, and rely on warfarin alone. - Test INR 06/12/22 at your local lab, early in A M so we can hopefully get same day results -Educated pt on plan. Sending letter with tony white directions for pt. Mailing enoxaparin booklet as well. Time: 40min [incl Pt Ed] Patient education of treatment plan: Patient ind icates readiness to learn, verbalizes understanding, agreement and satisfac tion with the treatment plan. Denies further questions. Anticoagulation Educational Assessment Part One Barriers/Special Needs No barriers identified Part Two Readiness to learn No barriers identified PARTICIPANTS: Patient TEACHING STRATEGY: 1:1, Written/print materials Therapeutic Enoxaparin Content reviewed: o Recognize medication by names (enoxaparin (Tonie enox)) o Indication, expected duration for therapy o Daily dosage, importance of medication adherence, management of missed/extra doses o Monitoring requirements, importance of complia nce with follow-up/lab monitoring requirements o Injection technique reviewed o Risks and benefits of therapy to include possi ble adverse reactions or medication failure and what to do if these occur ; fall-associated risks & importance of seeking urgent care if falls occur o Interactions (drug, alcohol, and disease state s) o Importance of informing your anticoagulation p rovider as soon as possible when major changes in medications/health occur, upcoming procedures are expected that require interr uption, or for evidence of new bleeds or thromboses Patient received a written, detailed copy of the educational handout to include contact information for anticoagulation clinic a nd instructions for how to obtain supply of medication. PATIENT/FAMILY RESPONSE (OUTCOME): Verbalizes cr itical information and understanding about the topic FOLLOW-UP RECOMMENDED: Need for [facility] ed education with next follow up visit Time spent on education: 15minutes /kanchan HEAD [facility] Clinical Administrative Operations Coordinator Signed: 05/21/2022 09:29 06/03/2022 ADDENDUM STATUS: COMPLETED Consult cancelled d/t failed mandated schedulin g efforts. Last coverage appeared to have lapsed ~09/2021 an d was not renewed. /mustapha/ CATALINA HEAD [facility] Clinical Administrative Operations Coordinator Signed: 06/03/2022 16:12
--- OUTSIDE RECORDS SUMMARY | 2022-06-06 12:11 | XMS_ITS | Encounter Summary ---
:1945 Author Organization [facility] Address [address] [place] [id number] Care Team Providers Name Role Phone Unavailable Primary Care Provider Unavailable Encounter Details Date Type Department Care Team Description 02/07/2022 Hospital Encounter Department of Hermila Coe Tumor Laboratory Medicine Shahid Encarnacion Malignant (HCC) and Pathology, [address] [place] [address] in [place] [id number] [phone] [place] [address] (Work) [place] [address] Social History Tobacco Use Types Packs/Day Years Used Date Smoking Tobacco: Never Smokeless Tobacco: Never Alcohol Use Standard Drinks/Week Comments Yes 2 (1 standard drink = 0.6 oz pure alcoho l) Alcohol Habits Answer Date Recorded How often do you have a drink containing alcohol? 2-4 times a month 09/30/2019 How many drinks containing alcohol do you have on a 1 or 2 09/30/2019 typical day when you are drinking? How often do you have six or more drinks on one Never 09/30/2019 occasion? Comment: Not asked Social Isolation Answer Date Recorded In a typical week, how many times do you More than three chaka es a week 09/30/2019 talk on the phone with family, friends, or neighbors? How often do you get together with friends More than three t imes a week 09/30/2019 or relatives? How often do you attend taoism or More than 4 times per year 09/30/2019 amish services? Do you belong to any clubs or Yes 09/30/2019 organizations such as taoism groups, unions, fraternal or athletic groups, or school groups? How often do you attend meetings of the More than 4 times hardy aldana year 09/30/2019 clubs or organizations you belong to? Are you now , , , 09/30/2019 , never or living with a partner? Physical Activity Answer Date Recorded On average, how many days per week do you engage in moderate to 5 days 09/30/2019 strenuous exercise (like walking fast, running, jogging, dancing, swimming, biking, or other activities that cause a light or heavy sweat)? On average, how many minutes do you engage in exercise at th is 50 min 09/30/2019 level? Stress Answer Date Recorded Do you feel stress - tense, restless, nervous, or anxious, N ot at all 09/30/2019 or unable to sleep at night because your mind is troubled all the time - these days? Financial Resource Strain Answer Date Recorded How hard is it for you to pay for the very basics like Not h alejandra at all 09/30/2019 food, housing, medical care, and heating? Food Insecurity Answer Date Recorded Within the past 12 months, you worried that your food would Never true 09/30/2019 run out before you got money to buy more. Within the past 12 months, the food you bought just didn't N ever true 09/30/2019 last and you didn't have money to get more. Transportation Needs Answer Date Recorded In the past 12 months, has lack of transportation kept you f rom No 09/30/2019 medical appointments or from getting medications? In the past 12 months, has lack of transportation kept you f rom No 09/30/2019 meetings, work, or getting things needed for daily living? Education Answer Date Recorded What is the highest level of school Master's degree (e.g., M A, MS, 09/29/2019 you have completed or the highest Darrin, MEd, LBD TEACHER, BERTHA) degree you have received? Sex Assigned at Date Recorded Not on file documented as of this encounter Medications at Time of Discharge Medication Sig Dispensed Refills Start Date End Date cholecalciferol, vitamin TAKE ONE TABLET BY 0 05/2019 D3, 25 mcg (1,000 Unit) MOUTH EVERY DAY tablet octreotide acetate every 28 0 09/19/2019 (SANDOSTATIN) 50 mcg/mL (1 (twenty-eight) days. mL) injection SandoSTATIN 50 mcg/mL 0 09/02/2019 injection SandoSTATIN LAR Depot 20 0 07/03/2020 mg ER injection sotalol (BETAPACE) 80 mg 2 (two) times a day. 0 0 09/21/2019 tablet warfarin (COUMADIN) 5 mg 0 01/11/2020 tablet documented as of this encounter Plan of Treatment Not on filedocumented as of this encounter Procedures Procedure Name Priority Date/Time Associated Comments Diagnosis CBC WITH DIFFERENTIAL, Routine 02/07/2022 10:36 Carcinoid Tumo r Results for this B AM CDT Malignant (HCC) procedure ar e in the results section. COMPREHENSIVE Routine 02/07/2022 10:36 Carcinoid Tumor Results for this METABOLIC PANEL, S/P AM CDT Malignant (HCC) proc edure are in the results section. documented in this encounter Results Comprehensive Metabolic Panel (02/07/2022 10:36 AM CDT) P athologist Signature Potassium, S 4.4 3.6 - 5.2 02/07/2022 DTL mmol/L 11:39 AM CDT Sodium, S 139 135 - 145 02/07/2022 DTL mmol/L 11:39 AM CDT Chloride, S 104 98 - 107 02/07/2022 DTL mmol/L 11:39 AM CDT Bicarbonate, S 27 22 - 29 02/07/2022 DTL mmol/L 11:39 AM CDT Anion Gap 8 7 - 15 02/07/2022 DTL 11:39 AM CDT BUN (Blood Urea 16 8 - 24 02/07/2022 DTL Nitrogen), S mg/dL 11:39 AM CDT Creatinine 1.07 0.74 - 02/07/2022 DTL 1.35 mg/dL 11:39 AM CDT eGFR-Non 67 >=60 02/07/2022 DTL Black/ mL/min/BSA 11:39 AM CDT Vietnamese Comment: ----ADDITIONAL INFORMATION---- Estimated GFR calculated using the 2009 CKD_EPI creatinine equation. eGFR-Black/ 77 >=60 mL/min/BSA 2021 11:39 AM CDT DTL Comment: ----ADDITIONAL INFORMATION---- Estimated GFR calculated using the 2009 CKD_EPI creatinine equation. Calcium, Total, S 9.2 8.8 - 10.2 mg/dL 02/07/2022 11:3 9 AM CDT DTL Glucose, S 78 70 - 140 mg/dL 02/07/2022 11:39 AM CDT DTL Protein, Total, S 6.5 6.3 - 7.9 g/dL 02/07/2022 11:39 AM CDT DTL Albumin, S 4.3 3.5 - 5.0 g/dL 02/07/2022 11:39 AM CDT DTL Aspartate Aminotransferase 27 8 - 48 U/L 02/07/2022 1 1:39 AM CDT DTL (AST), S Alkaline Phosphatase, S 73 40 - 129 U/L 02/07/2022 11 :39 AM CDT DTL Alanine Aminotransferase (ALT), 22 7 - 55 U/L 022 11:39 AM CDT DTL S Bilirubin, Total, S 0.5 <=1.2 mg/dL 02/07/2022 11:39 A M CDT DTL Specimen Anatomical Collection Method Collection Time Receive d Time (Source) Location / / Volume Laterality Blood (Blood, 02/07/2022 10:36 02/07/2022 Venous) AM CDT 11:20 AM CDT Hermila Coe M.D. LAB BLOOD ADD-ON Performing Organization Address City/State/ZIP Code Phon e Number [facility] - [address] [place], [place] [address] [facility] [place] [address] Laboratories-[facility] [address] [facility] (ABNORMAL) CBC with Differential, Blood (02/07/2022 10:36 AM CDT) [facility] Method Time Signature Hemoglobin 14.5 13.2 - 02/07/2022 DTL 16.6 g/dL 11:12 AM CDT Hematocrit 42.3 38.3 - 02/07/2022 DTL 48.6 % 11:12 AM CDT Erythrocytes 4.29 (L) 4.35 - 02/07/2022 DTL 5.65 11:12 AM CDT x10(12)/L MCV 98.6 (H) 78.2 - 02/07/2022 DTL 97.9 fL 11:12 AM CDT RBC Distrib Width 12.6 11.8 - 02/07/2022 DTL 14.5 % 11:12 AM CDT Platelet Count 221 135 - 317 02/07/2022 DTL x10(9)/L 11:12 AM CDT Leukocytes 4.3 3.4 - 9.6 02/07/2022 DTL x10(9)/L 11:12 AM CDT Neutrophils 2.29 1.56 - 02/07/2022 DTL 6.45 11:12 AM CDT x10(9)/L Lymphocytes 1.26 0.95 - 02/07/2022 DTL 3.07 11:12 AM CDT x10(9)/L Monocytes 0.63 0.26 - 02/07/2022 DTL 0.81 11:12 AM CDT x10(9)/L Eosinophils 0.13 0.03 - 02/07/2022 DTL 0.48 11:12 AM CDT x10(9)/L Basophils <0.03 0.01 - 02/07/2022 DTL 0.08 11:12 AM CDT x10(9)/L Specimen Anatomical Collection Method Collection Time Receive d Time (Source) Location / / Volume Laterality Blood (Blood, 02/07/2022 10:36 02/07/2022 Venous) AM CDT 11:01 AM CDT Hermila Coe M.D. 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
--- OUTSIDE RECORDS SUMMARY | 2022-06-06 12:11 | XMS_ITS | Encounter Summary ---
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 [facility] Procedures Echo Transthoracic (TTE) [address] [place], [place] [phone] Referral ID Status Reason Start Date Expiration Date Visits Requ ested Visits Authorized [id number] Closed 10/15/2021 10/15/2022 1 1 Encounter Details Date Type Department Care Team Description 02/07/2022 Hospital Department of Hermila Coe Carcinoid Tumor Malignant (HCC); Encounter Cardiovascular Shahid Encarnacion Metastatic Cancer (HCC) Diseases in [place], [facility] [address] [place], [place] 200 [facility] [place] [address] [place], [place] [phone] (Work) [phone] Social History Tobacco Use Types Packs/Day Years [...] or relatives? How often do you attend mosque or More than 4 times per year 09/30/2019 restorationism services? Do you belong to any clubs or Yes 09/30/2019 organizations such as mosque groups, unions, fraternal or athletic groups, or school groups? How often do you attend meetings of the More than 4 times pe r year 09/30/2019 clubs or organizations you belong [...] have completed or the highest Darrin, MEd, REGISTERED NURSE AMBULATORY, BERTHA) degree you have received? Sex Assigned [...] encounter Procedures Procedure Name Priority Date/Time Associated Diagnosis Comme nts (TTE) 2D ECHO Routine 02/07/2022 8:44 AM Carcinoid Tumor Resul ts for this DOPPLER COLOR CDT Malignant (HCC) procedure are in Metastatic Cancer the result s (HCC) section. documented in this encounter Results (TTE) 2D ECHO DOPPLER COLOR (02/07/2022 8:44 AM CDT) [facility] Method Time Signature Ejection Fraction 57 MC CV EIMS Mid-Ascending Aorta 41 MC CV EIMS LV Mass Index 82 MC CV EIMS LV End-Diastolic 48 MC CV EIMS Diameter LV End-Systolic 33 MC CV EIMS Diameter MV E Velocity 0.60 MC CV EIMS MV A Velocity 0.90 MC CV EIMS MV E/A 0.67 MC CV EIMS MV e' Velocity 0.07 MC CV EIMS Medial MV e' Velocity 0.09 MC CV EIMS Lateral MV E/e' Medial 8.60 MC CV EIMS MV E/e' Lateral 6.70 MC CV EIMS Left ventricular 43 MC CV EIMS stroke volume index Cardiac Output 6.56 MC CV EIMS Cardiac Index 2.98 MC CV EIMS LV Interventricular 11 MC CV EIMS Septal Wall Thickness LV Posterior Wall 10 MC CV EIMS Thickness LV Relative Wall 42 MC CV EIMS Thickness RV 4-Chamber Basal 54 MC CV EIMS Diameter RV 4-Chamber Mid 37 MC CV EIMS Diameter RV 4-Chamber Length 76 MC CV EIMS TAPSE 24 MC CV EIMS Tricuspid Annular S? 0.10 MC CV EIMS TR Vmax 2.60 MC CV EIMS RA Pressure 5 MC CV EIMS RV Systolic Pressure 32 MC CV EIM S Aortic valve area 3.17 MC CV EIMS Aortic Valve 0.70 MC CV EIMS Dimensionless Index LA Volume Index 40 MC CV EIMS Aortic Valve 1.40 MC CV EIMS Systolic Peak Velocity Anatomical Region Laterality Modality Echocardiography Specimen (Source) Anatomical Collection Method Collection Time Re ceived Time Location / / Volume Laterality 02/07/2022 7:23 AM CDT Impressions 02/07/2022 9:21 AM CDT Echocardiogram performed per carcinoid protocol. Previous shunt study performed on KENDY study from 04-OCT-2019, in which no intracardiac shunt was identified. ??Shunt study not repeated on today's exam. LEFT VENTRICLE:Normal left ventricular c hamber size. Sigmoid ventricular septum with basal septal prominence: 14 mm. Otherwise normal wall thickness. No dynamic left ventricular outflow tract obstructio n at rest or with Valsalva. Calculated 2 -D linear left ventricular ejection fraction 57%. No regional wall motion abnormalities. Grade 1/3 left ventricular diastolic dysfunction, consistent with low to normal left ventricular filling pressure. RIGHT VENTRICLE:Mildly enlarged right ve ntricular chamber size. Normal right ventricular systolic function. Right ventricular strain assessment was performed but not reported based on mechanical lead's judg ment. Estimated right ventricular systol ic pressure 32 mmHg (right atrial pressure of 5 mmHg ). ATRIA:Mild-moderately enlarged left atri al size. Left atrial volume index 40 ml/m2. Normal right atrial size. CARDIAC VALVES:Trileaflet aortic valve. Sclerotic aortic valve. No aortic valve regurgitation. Mildly thickened mitral valve. Mildly calcified mitral annulus. Mitral chordal systolic anterior motion. Tr ivial mitral valve regurgitation. Normal pulmonary valve. Trivial pulmonary valve regurgita tion. Normal tricuspid valve. Mild tricuspid valve regurgitation. OTHER ECHO FINDINGS:Normal inferior vena cava size with normal inspiratory collapse (>50%). Normal mid ascending aorta diameter of 41 mm. Upper limit of normal of the mid ascending aorta, for age, sex and BSA is 44 mm. No abdominal aortic aneurysm. Normal abdominal aorta Doppler flow neville cele. No atrial level shunt by color flow imaging. No intracardiac mass or thrombus, but the left atrial appendage cannot be visualized adequately with transthorac ic echo to exclude thrombus in this loca tion. No ?? pericardial effusion. Prominent ??epicar dial fat layer. For the complete report, see the Order-L evel Documents. Narrative 02/07/2022 9:21 AM CDT For the complete report, see the Order-Level Documents. Final Impressions 1. No evidence of carcinoid heart diseas e. 2. Normal left ventricular chamber size, no regional wall motion abnormalities, calculated 2-D linear ejection fraction 57%. 3. Grade 1/3 left ventricular diastolic dysfunction, consistent with low to normal left ventricular filling pressure. 4. Mildly enlarged right ventricular rolf mber size, normal systolic function, estimated right ventricular systolic pressure 32 mmHg (right atrial pressure of 5 mmHg). 5. No hemodynamically significant valvul ar heart disease. 6. Normal inferior vena cava size with n ormal inspiratory collapse (>50%). No pericardial effusion. 7. Previous shunt study performed on KENDY study from 04-OCT-2019, in which no intracardiac shunt was identified (images reviewed today). ??A repeat shunt study not therefore not repeated on today's examination. Procedure Note Patrick Gonzalez M.D. - 02/07/2022Formatti ng of this note might be different from the original. For the complete report, see the Order-L Everbridgeel Documents. Final Impressions 1. No evidence of carcinoid heart diseas e. 2. Normal left ventricular chamber size, no regional wall motion abnormalities, calculated 2-D linear ejection fraction 57%. 3. Grade 1/3 left ventricular diastolic dysfunction, consistent with low to normal left ventricular filling pressure. 4. Mildly enlarged right ventricular rolf mber size, normal systolic function, estimated right ventricular systolic pressure 32 mmHg (right atrial pressure of 5 mmHg). 5. No hemodynamically significant valvul ar heart disease. 6. Normal inferior vena cava size with n ormal inspiratory collapse (>50%). No pericardial effusion. 7. Previous shunt study performed on KENDY study from 04-OCT-2019, in which no intracardiac shunt was identified (images reviewed today). A repeat shunt study not therefore not repeated on today's examination. Findings Echocardiogram performed per carcinoid p rotocol. Previous shunt study performed on KENDY study from 04-OCT-2019, in which no intracardiac shunt was identified. Shunt study not repeated on today's exam. LEFT VENTRICLE:Normal left ventricular c hamber size. Sigmoid ventricular septum with basal septal prominence: 14 mm. Otherwise normal wall thickness. No dynamic left ventricular outflow tract obstruction at rest or with Valsalva. Calculated 2-D linear left ventricular ejection fraction 57%. No regional wall motion abnormalities. Grade 1/3 left ventricular diastolic dysfunction, consistent with low to normal left ventricular filling pressure. RIGHT VENTRICLE:Mildly enlarged right ve ntricular chamber size. Normal right ventricular systolic function. Right ventricular strain assessment was performed but not reported based on mechanical lead's judgment. Estimated right ventricular systolic pressure 32 m mHg (right atrial pressure of 5 mmHg). ATRIA:Mild-moderately enlarged left atri al size. Left atrial volume index 40 ml/m2. Normal right atrial size. CARDIAC VALVES:Trileaflet aortic valve. Sclerotic aortic valve. No aortic valve regurgitation. Mildly thickened mitral valve. Mildly calcified mitral annulus. Mitral chordal systolic anterior motion. Trivial mitral valve regurgitation. Normal pulmonary va lve. Trivial pulmonary valve regurgitation. Normal tricuspid valve. Mild tricuspid valve regurgitation. OTHER ECHO FINDINGS:Normal inferior vena cava size with normal inspiratory collapse (>50%). Normal mid ascending aorta diameter of 41 mm. Upper limit of normal of the mid ascending aorta, for age, sex and BSA is 44 mm. No abdominal aortic aneurysm. Normal abdomi nal aorta Doppler flow pattern. No atrial level shunt by color flow imaging. No intracardiac mass or thrombus, but the left atrial appendage cannot be visualized adequately with transthoracic echo to exclude throm bus in this location. No pericardial effusion. Prominent epicardial fat layer. For the complete report, see the Karthik-Alysha christianson Documents. Hermila Coe M.D. 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
--- OUTSIDE RECORDS SUMMARY | 2022-06-06 12:11 | XMS_ITS | Clinical Summary ---
:1945 Author Organization [facility] Address [address] [place] [address] Care Team Providers Name Role Phone Unavailable Primary Care Provider Unavailable Source Comments Patient records contain information from all sites at [facility]. For routine questions regarding patient records, call [phone] during business hours, M-F 8:00 AM - 5:00 PM Central Time. Record requests for emergency care only can be directed to [phone] at any time.[facility] Allergies Active Allergy Reactions Severity Noted Date Comments Naproxen GI intolerance, Diarrhea 02/06/2011 Soap Rash 10/04/2016 Dial soap Medications Medication Sig Dispensed Refills Start Date End Date Status octreotide acetate every 28 0 09/19/2019 Active (SANDOSTATIN) 50 mcg/mL (twenty-eight) (1 mL) injection days. SandoSTATIN 50 mcg/mL 0 09/02/2019 Active injection sotalol (BETAPACE) 80 2 (two) times a 0 09/21/2019 Active mg tablet day. 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 How often do you attend rastafari or More than 4 times per year 09/30/2019 muslim services? Do you belong to any clubs or Yes 09/30/2019 organizations such as rastafari groups, unions, fraternal or athletic groups, or [...] have completed or the highest Darrin, MEd, CLOSED CIRCUIT SCREEN WATCHER, BERTHA) degree you have received? 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 Oxygen Saturation 97% 02/11/2022 9:43 AM CDT Inhaled Oxygen Concentration - - Weight 98.8 kg (217 lb 13 oz) 02/11/2022 9:43 AM CDT Height 175.8 cm (5' 9.21) 02/11/2022 9:43 AM CDT Body Mass Index 31.97 02/11/2022 9:43 AM CDT Plan of Treatment Health Maintenance Due Date Last Done Comments CT Colonography 1945 Cologuard 1945 Colonoscopy 1945 Colorectal Cancer Surveillance 1945 Hepatitis C Screening 1945 Depression Screening (Annual 09/14/2021 PHQ-2) COVID-19 Vaccine (5 - Booster for 03/26/2022 01/29/2022, , Pfizer series) 11/27/2020, Additional history exists Influenza Vaccine (#1) 2022 06/25/2021, 06/14/2021, 07/15/2019, Additional history exists Office Visit for Blood Pressure 02/11/2023 02/11/2022 Check / Re-check DTaP,Tdap,and Td Vaccines (3 - Td 08/29/2026 08/29/2016, , or Tdap) 01/06/2007, Additional history exists Pneumococcal vaccine (65+ years) Completed 05/09/2015, , 06/08/2009 Zoster Vaccines Completed 02/17/2019, 10/06/2018, 06/13/2009 Fall Risk Screen (Annual) Completed 02/07/2022 Medical Devices Implanted Type Area Nurse Discharge Device Shelf Model / Identifier Expiration Serial / Date Lot Hardware E.G. Hardware Right: Pins/Screws/R e.g. Shoulder ods pins/screws/ rods Knee Implant Knee Implant Knee Description: Both knees replaced Insurance Payer Benefit Plan Subscriber ID Effective Phone Address Typ e / Group Dates MEDICARE MEDICARE A [id number] 2009-Prese [address] [place] [address] FOR FOR [id number] 2019-Pres [phone] [address] [employer] ent [address] [place] [address] Care Teams Optical Worker Relationship Specialty Start Date End Date [facility] 05/22/21 [place] [address]
--- OUTSIDE RECORDS SUMMARY | 2022-06-06 12:11 | XMS_ITS | Encounter Summary ---
:1945 Author Organization [facility] Address [address] [place] [address] Care Team Providers Name Role Phone Unavailable Primary Care Provider Unavailable Reason for Referral Outpatient (Routine) - Authorized Specialty Diagnoses / Procedures Referred By Contact Refer red To Contact Oncology Mikhail Mcfadden M. D. [facility] [address] [place], [place] [phone] Referral ID Status Reason Start Date Expiration Date Visits V isits Requested Authorized [id number] Authorized 02/11/2022 02/11/2023 1 1 Scheduling Instructions New fellow. Bogdan graduated. MRI/CAT/PET Scan (Routine) - Authorized Specialty Diagnoses / Procedures Referred By Contact Refer red To Contact Radiology Diagnoses Carcinoid Tumor Malignant (HCC) Mikhail Mcfadden M.D. [facility] Procedures CT Chest without IV Contrast [address] [place] [address] Referral ID Status Reason Start Date Expiration Date Visits V isits Requested Authorized [id number] Authorized 02/11/2022 02/11/2023 1 1 MRI/CAT/PET Scan (Routine) - Authorized Specialty Diagnoses / Procedures Referred By Contact Refer red To Contact Radiology Diagnoses Carcinoid Tumor Malignant (HCC) Mikhail Mcfadden M.D. [facility] Procedures MR Abdomen without and with IV Contrast [address] [place], [place] [phone] Referral ID Status Reason Start Date Expiration Date Visits V isits Requested Authorized [id number] Authorized 02/11/2022 02/11/2023 1 1 Reason for Visit Outpatient (Routine) - Closed Specialty Diagnoses / Procedures Referred By Contact Refer red To Contact Oncology Hermila Coe M.D. [facility] [address] [place] [phone] Referral ID Status Reason Start Date Expiration Date Visits Requ ested Visits Authorized [id number] Closed 10/15/2021 10/15/2022 1 1 Encounter Details Date Type Department Care Team Description 02/11/2022 Office Visit Department of Oncology Mikhail Mcfadden, Carcinoid Tumor in [place] Malignant (HCC) [address] (Primary Dx) [address] [place] [phone] Social History Tobacco Use Types Packs/Day Years [...] or relatives? How often do you attend shinto or More than 4 times per year 09/30/2019 latter day services? Do you belong to any clubs or Yes 09/30/2019 organizations such as shinto groups, unions, fraternal or athletic groups, or [...] have completed or the highest Darrin, MEd, POST ANESTHESIA ROOM NURSE, BERTHA) degree you have received? Sex Assigned at Date Recorded Not on file documented as of this encounter Last Filed Vital Signs Vital Sign Reading Time Taken Comments Blood Pressure 127/77 02/11/2022 9:43 AM CDT Pulse 73 02/11/2022 9:43 AM CDT Temperature 36.9 ??C (98.4 ??F) 02/11/2022 9:43 AM CDT Respiratory Rate - - Oxygen Saturation 97% 02/11/2022 9:43 AM CDT Inhaled Oxygen Concentration - - Weight 98.8 kg (217 lb 13 oz) 02/11/2022 9:43 AM CDT Height 175.8 cm (5' 9.21) 02/11/2022 9:43 AM CDT Body Mass Index 31.97 02/11/2022 9:43 AM CDT documented in this encounter Progress Notes Mikhail Mcfadden M.D. - 02/11/2022 9:30 AM CDT Referring Provider: Hermila Coe M.D. [address] [place] [phone] Primary oncologist: Dr. Aldridge Staffing oncologist: Dr. Puentes Primary fellow: Dr. 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 SUBJECTIVE Mr. Villeda is a very pleasant 76-year-old gentleman with a history most notable for cerebrovascular disease, atrial fibrillation, and venous thromboembolism. His oncologic history as follows: 2006: Diagnosed with adenocarcinoma of the prostate which was treated with high- intensity focused ultrasound in 2007 (in [place]) October 27, 2008: NET diagnosed during workup prostate cancer with rising PSA. At that time, a CT scan showed a 2.5- x 2.5- x 1.8-cm mesenteric mass anteriorly to the aortic bifurcation. 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 Continued observation recommended. February 08, 2014: Salvage prostatectomy and bilateral pelvic LN dissection (Mario 3 + 4, extraprostatic extension focally present, pT3N0). On observation since that time. June 2019: Developed frequent episodes of flushing and gnawing abdominal pain. August 2019: Local providers started short-acting octreotide 5 mg 3 times a day. Symptoms improvedrapidly. August 26, 2019: Outside CT A/P: ?? Central mesenteric lymphadenopathy, the largest measuring 3.9 x 3.7 cm (previously 4.0 x 3.3 cm on 04/14/2013). ?? The 2nd largest measures 2.1 x 1.4 cm (previously 1.5 x 1.1 cm on 04/14/2013). ?? Enlargement of left para-aortic abdominal lymph nodes, largest measuring 1.7 x 1.3 cm (previously0.7 x 0.4 cm on 04/14/2013). ?? Development of several small sclerotic lesions throughout the axial skeleton, for example within the superior right iliac crest (series 2 image 458) and within the posterior right sacrum (series 2 image 490). September 20, 2018: Transition to octreotide LAR. Symptoms remained improved. October 11, 2019: Initial evaluation at [facility]. ?? Review of outside DOTATATE scan (10/07/2019) shows slight increase in size of mesenteric mass dating back to initial CT 09/20/2008 with possible primary focus in adjacent loop of ileum; diffuse somatostatin receptor positive disease involving axial and appendicular skeleton, other lymph nodes, and liver. ?? MRI of the abdomen shows multiple small enhancing masses with restricted diffusion throughout theliver consistent with metastatic disease; along with pancreatic, marychuy, osseous, and probable soft tissue metastases. ?? His 5-HIAA was slightly elevated at 13.2. Chromogranin A was normal. Interval History: Mr. Villeda is doing well. He had a mechanical fall and head laceration but has now fully recovered. He is still receiving long-acting [facility] He denies gnawing abdominal pain. He reports less than 3 bowel movements per day. He has no flushing, palpitations, dyspnea, and chest discomfort. He will be going to [place] for an extended trip in the weeks ahead. Review of systems: All other systems negative unless noted in the HPI. The following portions of the patient's history were reviewed and updated as appropriate (either in note or EMR): allergies, current medications, family history, medical history, social history, surgical history and problem list. 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 He is to [place] with no children. He hopes to take up photography. He is a never smoker. Family History: Per EMR OBJECTIVE Vitals: 02/11/22 0943 BP: 127/77 Patient Position: Sitting Pulse: 73 Temp: 36.9 ??C Height: 175.8 cm Weight: 98.8 kg SpO2: 97% TempSrc: Tympanic Body surface area is 2.2 meters squared. Physical exam: General: No acute distress. ECOG 0. Independent [id number]-[id number]. Normal gait speed. Rises from lying tositting without assistance. HEENT: He is wearing a mask today. His eyes are not injected. Lymph: No appreciable cervical or supraclavicular adenopathy. Heart: Rate controlled. Mild systolic ejection murmur at the apex. Lungs: Clear bilaterally. Abdomen: Soft and non-tender with no distension, hepatosplenomegaly, or masses. Injection granuloma in left, lower abdomen. Neurologic: Face symmetric. Pupils equal. Intelligible speech. Antigravity in all 4 extremities. Skin: No rash or lesions on examined surfaces. Psych: Appropriate mood and affect. Diagnostics: I reviewed the pertinent laboratory and other diagnostic data. I reviewed the imaging studies and agree with the interpretation as recorded. 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 Villeda in follow-up. He continues to be largely asymptomatic from hisneuroendocrine tumor. Today's imaging shows ongoing stability of his disease. I recommend no change in therapy today. We will follow his disease with MRI liver and CT chest every 4 months. Repeat TTE every couple of years (next due 2023). He is receiving octreotide LAR 20 mg which can be increased to 30 mg every 4 weeks, if needed, on the basis of symptoms. Short acting octreotide could also be added for breakthrough symptoms at the endof the cycle. With progression down the road, consideration can be given to PRRT(NETTER-3) or everolimus (RADIANT- 4); however, no change in therapy is recommended at this time. Please send this note and images to providers at the [place]. PATIENT EDUCATION Explained the content in detail using visual aids, teach back and verbal lessons; patient expressed understanding of the above. Patient was willing and able to learn, actively involved in the above discussion. ADMINISTRATIVE BILLING I personally spent a total of 25 minutes face to face with the patient with over half of that time in counseling and discussion and/or coordination of care as described above. documented in this encounter Plan of Treatment Scheduled Orders Name Type Priority Associated Order Schedule Diagnoses MR Abdomen without and Imaging RAD - Routine (most Carcinoid T umor Expected: with IV Contrast inpatients and all Malignant (HCC) , outpatients) Expires: 05/14/2023 CT Chest without IV Imaging RAD - Routine (most Carcinoid Tumo r Expected: Contrast inpatients and all Malignant (HCC) 2021, outpatients) Expires: 05/14/2023 CBC with Differential, Lab Routine Carcinoid Tumor Ex pected: Blood Malignant (HCC) 06/17/2022, Expires: 02/11/2023 Comprehensive Lab Routine Carcinoid Tumor Expected: Metabolic Panel Malignant (HCC) , Expires: 02/11/2023 Scheduled Referrals Name Type Priority Associated Diagnoses Order S chedule Oncology office Outpatient Referral Routine Expec rosalba: visit (clinic) 06/17/2022, General; [facility] Net Expires: 05/14/2023 documented as of this encounter Visit Diagnoses Diagnosis Carcinoid Tumor Malignant (HCC) - Primar y documented in this encounter Care Teams Radiologic Therapist Relationship Specialty Start Date End Date [facility] 05/22/21 [place] [address] documented as of this encounter
--- OUTSIDE RECORDS SUMMARY | 2022-06-06 12:11 | XMS_ITS | Encounter Summary ---
:1945 Author Organization [facility] Address [address] [place] [address] Care Team Providers Name Role Phone Unavailable Primary Care Provider Unavailable Encounter Details Date Type Department Care Team Description 02/06/2022 Clinical Communication Visit Review in [place], [place] [address] [place], [place] [phone] Social History Tobacco Use Types Packs/Day Years [...] or relatives? How often do you attend judaism or More than 4 times per year 09/30/2019 scientology services? Do you belong to any clubs or Yes 09/30/2019 organizations such as judaism groups, unions, fraternal or athletic groups, or [...] minutes do you engage in exercise at is 50 min 09/30/2019 level? Stress Answer [...] have completed or the highest Darrin, MEd, IT SALES EXECUTIVE, BERTHA) degree you have received? Sex Assigned at Date Recorded Not on file documented as of this encounter Plan of Treatment Not on filedocumented as of this encounter Visit Diagnoses Not on filedocumented in this encounter Care Teams Planer Setter Relationship Specialty Start Date End Date [facility] 05/22/21 [place] [address] documented as of this encounter
--- OUTSIDE RECORDS SUMMARY | 2022-06-06 12:11 | XMS_ITS ---
TELEPHONE ANESTHESIA [facility] HCS Encounter Summary Created on:May 23, 2022 Patient:ELLE CORONEL Sex:Male :1945 Author Organization Department [facility] Address [address] [place] [address] Support Name Relationship Address Phone Arti CORONEL Unavailable [address] [facility] [place] [address] ADITYA MALIN Unavailable [address] [place] [phone] [place] [address] Insurance Providers: All historical and current Section [...] MEDICARE MEDICARE PART May 15, PART A [id number] 800 HOMER HUNTER (WNR) (M) A 2008 94A [phone] ,ELLE MEDICARE MEDICARE PART May 15, PART B [id number] 800 HOMER HUNTER (WNR) (M) B [id number] ,ELLE Selected Encounter This section includes the information on record at [place] for the Encounter. Date/Time Encounter Type Encounter Reason Provider Source Description May 23, 2022 Outpatient TELEPHONE ICD-10-CM Z01.818 ELIZABETH SAUER 02:45 PM Encounter ANESTHESIA Encounter for other preprocedural examination with Provider Comments: Encounter for other Preprocedural Examination IHE Encounter Template Text not used by [facility] Assessments - Encounter Diagnoses This section includes the primary and secondary diagnoses documented for the Encounter. Date/Time Primary/Secondary Diagnosis Name Provider Source Diagnosis May 23, 2022 PRIMARY Encounter for other ELIZABETH SAUER [facility] 02:45 PM preprocedural HCS examination May 23, 2022 SECONDARY Cerebral ELIZABETH SAUER [facility] 02:45 PM infarction, HCS unspecified May 23, 2022 SECONDARY Hyperlipidemia, ELIZABETH SAUER [place] 02:45 PM unspecified HCS May 23, 2022 SECONDARY nursing home (current) [facility] [place] 02:45 PM use of [facility] anticoagulants May 23, 2022 SECONDARY Malignant carcinoid CAMACHOELIZABETH MANISHA [place] [place] 02:45 PM tumor of [facility] unspecified site May 23, 2022 SECONDARY Personal history of CAMACHOELIZABETH MANISHA [place] 02:45 PM other venous HCS thrombosis and embolism May 23, 2022 SECONDARY Unspecified atrial [facility] 02:45 PM fibrillation HCS Plan of Treatment: Future Appointments (+ 6 months) and Future Tests (+/- 45 days) The Plan of Treatment section includes future care activities for the patient from all [place] [facility] This section includes future appointments and future orders which are active, pending orscheduled.Future Appointments This section includes appointments that were scheduled to occur 6 months from the date of the Encounter, up to a maximum of 20 appointments. The data comes from all [place] [facility]. Appointment Date/Time Appointment Type Appointment Facili ty Name Jun 17, 2022 08:00 AM AMBULATORY - NONE [facility] Jun 17, 2022 09:00 AM AMBULATORY - MEDICINE [facility] Jun 17, 2022 09:30 AM AMBULATORY - MEDICINE [facility] Active, Pending, and Scheduled [...] the Encounter. The data comes from all [facility]. Test Date/Time Test Type Test Details Facility Name Jun 06, 2022 06:00 Laboratory - COVID-19 DIAGNOSTIC PANEL [facility] AM Chemistry Order (CEPHEID) NASOPHARYNGEAL SWAB SP ONCE Jun 06, 2022 06:00 Laboratory - PROTHROMBIN TIME/INR [facility] AM Chemistry Order PLASMA SP ONCE Jun 17, 2022 12:00 Laboratory - CBC & DIFF BLOOD ONCO SP [facility] AM Chemistry Order ONCE Jun 17, 2022 12:00 Laboratory - CHROMOGRANIN A(ROSE) [facility] AM Chemistry Order SERUM SP ONCE Jun 17, 2022 12:00 Laboratory - SEROTONIN SERUM SP ONCE [facility] AM Chemistry Order Jun 17, 2022 12:00 Laboratory - COMPREHENSIVE METABOLIC [facility] AM Chemistry Order PANEL+MG PLASMA ONCO [...] Range Comment May 20, 2022 09:03 AM [facility] PT/INR(ANTICOAG) Speci men Type: PLASMA No comment enter ed. Ordering Provid er: CATALINA HEAD Report Released Date/Time: Apr 23, 2022 03:52 PM Reporting Lab: [facility] [address] [facility] [address] Performing Lab: [facility] [address] .INR 2.1 H 0.8-1.1 .PT 24.9 H 9.4-12.5 May 20, 2022 [facility] COMPREHENSIVE METABOLIC Spec imen Type: PLASMA 09:03 AM PANEL+MG No comment enter ed. Ordering Provid er: LILI GARCIA Report Released Date/Time: Feb 17, 2022 11:17 AM Reporting Lab: [facility] [address] [facility] [address] Performing Lab: [facility] [address] CREATININE 1.0 0.7-1.2 UREA NITROGEN 13 8-26 GLUCOSE 98 70-100 SODIUM 141 136-145 POTASSIUM 4.0 3.5-5.1 CHLORIDE 110 H 98-107 CO2 26 22-29 CALCIUM 8.9 8.4-10.2 PROTEIN,TOTAL 6.7 6.0-8.3 ALBUMIN 3.8 3.5-5.2 BILIRUBIN, TOTAL 1.0 0.2-1.2 MAGNESIUM 2.1 1.6-2.6 ANION GAP 5 5-15 ALKALINE PHOSPHATASE 68 40-150 ALT/SGPT 15 <55 AST/SGOT 20 <34 CREAT EGFR(CKD-EPI) 78 >60 May 20, 2022 09:03 AM [facility] CBC & DIFF Specim en Type: BLOOD Comment: Automa dionisio Differential Performed Ordering Provid er: LILI GARCIA Report Released Date/Time: Feb 17, 2022 11:17 AM Reporting Lab: [facility] [address] [place] [facility] [address] Performing Lab: [facility] [address] [place] [facility] [address] WBC 4.78 4.0-11.0 RBC 4.19 L 4.6-6.2 [...] IG(META,MYELO,PRO) 0.4 ABS IMMATURE GRAN 0.02 0-0.1 Social History: Smoking Status (Most current) [...] 2022 08:30 AM [place]-TOBACCO NEVER USED [place] [facility] Tobacco Use History This section includes a history of the smoking, or tobacco- related health factors, that were collected on or before the date of the Encounter. The data comes from the [place] facility where the Encounter took place. Date/Time Smoking Status/Tobacco Use Comment [facility] May 15, 2021 10:00 AM [place]-TOBACCO NEVER USED [place] [facility] Oct 05, 2019 10:05 AM [place]-TOBACCO NEVER USED [place] [facility] Oct 20, 2018 12:28 PM INPT NO TOBACCO USE IN LAST 30 DAYS [facility] Sep 15, 2018 01:21 PM VA-TOBACCO NEVER USED [facility]IS[facility] HO[facility] Aug 11, 2017 08:54 AM LIFETIME NON-TOBACCO USER [facility] Jul 08, 2016 08:07 AM LIFETIME NON-TOBACCO USER [facility] May 09, 2015 02:31 PM LIFETIME NON-TOBACCO USER [facility] Apr 14, 2014 08:41 AM LIFETIME NON-TOBACCO USER [facility] Jan 06, 2007 08:51 AM LIFETIME NON-TOBACCO USER [facility] Radiology Reports: +/- 30 [...] the Encounter. The data comes from all [facility] facilities. Date/Time Radiology Report Provider Source Apr 29, 2022 08:[address] (C) CHEST (P): HEIDI EDWARDS [facility] ELLE CORONEL [id number] -[birth year] M Exm Date: APR 29, 2022@08:32 Req Phys: CLAYTON ROLLE Pat Loc: [facility] PACT CREAM 4E (Req'g Loc) Img Loc: CT IMAGING Service: Unknown (Case [id number] COMPLETE) CT (C) CHEST W/O CONTRAST (C T Detailed) CPT:29244 Reason for Study: follow up pnemonia Clinical History: pneumonia in lingula seen on CT scan at [place] 2021, s/p antibiotics with some residual symptoms, f/u fo r resolution IS NOT under investigation for COVID-19 or is COVID-19 negative Defer to radiologist for final CT protocol. Responsible provider name and phone number to n otify for critical findings if other than user placing the order a nd pager listed below: User placing orders pager: [phone] LAST 3: Collection DT Specimen Test Name [...] PLASMA ESTIMATED GFR(eGF >60 Ref: >=60 Allergies: ([place] only) DIAL SOAP (Mar 25, 2007) NAPROXEN (February 05, 2011 ) Report Status: Verified Date Reported: APR 30, 2022 Date Verified: APR 30, 2022 Chronograph Operator E-Sig:/ES/HEIDI EDWARDS MD Report: Exam: CT chest without intravenous contrast, History: Follow-up pneumonia. History of pneumo mikal in the lingula on CT scan at [facility] February 2022. Status pos t antibiotics. Comparison: [...] Primary Interpreting Staff: HEIDI EDWARDS MD, RADIOLOGIST (Chronograph Operator) /BJB Encounter Notes: All associated encounter notes This section contains the clinical notes associated to the Encounter. Date/Time Encounter Note(s) Provider Source May 23, 2022 02:18 PM ANESTHESIOLOGY CONSULT: ELIZABETH SAUER [facility] LOCAL TITLE: ANESTHESIA PREOPERATIVE ASSESSMENT CONSULT STANDARD TITLE: ANESTHESIOLOGY CONSULT DATE OF NOTE: MAY 23, 2022@14:18 ENTRY DATE: MAY 23, 2022@14:19:04 AUTHOR: ELIZABETH SAUER EXP COSIGNER: URGENCY: STATUS: COMPLETED ANESTHESIA PREOPERATIVE ASSESSMENT CONSULT Has ADDENDA Preoperative Anesthesia Assessment Chief Complaint: 76 year old with BMI 31.5 for p reoperative anesthesia visit. This is a phone visit. Phone/VVC Patient Identifiers 2 patient identifier complete. Verified w/ Vete ran correct date & time for appt. Verbalized secure, private location for b oth provider & patient to divulge private health information. Verified cu rrent phone number/address/location (Provider to call [phone] in the event of emergency, will be routed to local grinder operator ). ----History of present illness Mr. Dominguez is a 76 y/o male being evaluated preoperatively for R-achilles tendon, bone spur debridement, and gastr oc recession scheduled on 06/06/22. 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 COVID NEG 09/10/21, PENDING DOS, COVID+ Aug, treated sx at home Reports chronic intermittent sinus congestion, r unny nose, and a productive cough (also noted in PCP not e from March). He otherwise denies fever, chills, body aches, or other cold/flu sx. ----Allergies DIAL SOAP (Mar 25, 2007) RASH NAPROXEN (February 05, 2011) DIARRHEA ----VITAL SIGNS HR: 74 (05/20/2022 08:26) BP: 107/68 (05/20/2022 08:26) RR: 16 (05/20/2022 08:26) O2: 92% (05/20/2022 08:26) Temp: 98.1 F [36.7 C] (05/20/2022 08:26) HT: 70.669 in [179.5 cm] (05/20/2022 08:26) WT: 223 lb [101.15 kg] (05/20/2022 08:26) BMI: 31.5 ----Past Surgical History No personal or family history of anesthesia comp lications 06/06/2022 right achilles tendon and bone REQUES DIONISIO spur debridement, gastrocnemius recession 04/09/2009 right ring trigger finger release (CO MPLETED) Anesthesia MAC, versed 2 mg, fent 50 mcg, precedex gtt 0.4? (indiscernible) mcg/kg/hr 05/07/2007 CE/IOL left eye (COMPLETED) Other: s/p bilateral TKA - 5 years ago s/p RRP ----SOCIAL HISTORY Tobacco: No, never Alcohol: Yes, none for >week, occasional Substance use: No ----PAST MEDICAL HISTORY 1. Hearing Loss, Bilateral 2. Hyperlipidemia 3. Carcinoma of prostate (SNOMED CT 472554055) - S/P HIFU (09/2007 [place]) - 01/25 RRP 4. Osteoarthritis of knee (SNOMED CT 826451606) 5. Carcinoid tumor (SNOMED CT 650231124) 6. Atrial fibrillation (SNOMED CT 55963254) - Paroxysmal 06/23 and 12/24 CHADS 2 score 0 7. Post Vit Detachment 8. Health Maintenance - colonoscopy 2006, next due 2016 9. Pain in limb - knee pain 10. Impotence 11. Solitary nodule of lung 12. Colonoscopy normal - 2000 rec 2016 13. High risk drug monitoring status 14. Long-term current use of anticoagulant 15. History of deep vein thrombosis ----DETAILED PAST MEDICAL HISTORY CARDIAC SYSTEM Hyperlipidemia Arrhythmias: Atrial fibrillation/flutter: on farin Denies chest pain/palpitations/presyncope/syncop e/orthopnea/SOB/PND RESPIRATORY SYSTEM Lung nodule +Reports chronic intermittent sinus congestion, runny nose, and a productive cough (also noted in PCP not e from March). He otherwise denies fever, chills, body aches, or other cold/flu sx. PCP: Suspect allergic compo nent. Last CT with lingular opacity, received course of doxy with some improvement but not complete r esolution. 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 ----FUNCTIONAL CAPACITY IN MEASURE OF EX ERCISE TOLERANCE BEFORE SURGERY (METS) METS: 4-10 push relationship associate x45 min, rides bike f or 22 miles ----MEDICATIONS 1) ENOXAPARIN 100MG/ML INJ SYRINGE 1ML INJECT 1 00MG THE ACTIVE CONTENTS OF 1 SYRINGE UNDER THE SKIN EVERY 12 H OURS 2) FLUTICASONE PROP 50MCG 120D NASAL INHL SPRAY 2 SPRAYS Q DAY 3) LIDOCAINE 5% OINT APPLY MODERATE AMOUNT TOPI WANDER QID PRN 4) LORATADINE 10MG TAB TAKE ONE TABLET Q DAY 5) OCTREOTIDE ACETATE 20MG/KIT SA SUSP INJ INJE CT 20MG ACTIVE 20MG INTRAMUSCULAR EVERY MONTH IN HEME/ONC CLINICDO NOT MAIL TO BE DISPENSE IN CLINIC 6) SOTALOL HCL 80MG TAB TAKE ONE TABLET BID 7) WARFARIN NA (CHAN STATE) 5MG TAB TAKE ONE AND ACTIVE ONE-HALF TABLETS BY MOUTH THURSDAY AND THURSDAY AND TAKE ONE TABLET ALL OTHER DAYS 1) Non-VA CHOLECALCIF 25MCG (D3-1,000UNIT) TAB 1000UNIT Q DAY 2) Non-VA NON VA MED NOT LISTED MISCELLANEOUS Q AM 3) Non-VA VITAMIN E CAP Q AM Other: tylenol prn vitamin A, B, E, D3 Naltrexone: No Buprenorphine: No ---LABORATORY STUDIES HGB- HGB 14.1 (05/20/22) HCT- HCT 41.6 (05/20/22) WBC- WBC 4.78 (05/20/22) PLT- PLT 201 (05/20/22) INR- INR 2.1 H PLASMA (05/20/22 09:03) APTT- APTT____ GLUCOSE- GLUCOSE 98 (05/20/22) NA- SODIUM 141 (05/20/22) K- POTASSIUM 4.0 (05/20/22) CL- CHLORIDE 110 H (05/20/22) CREATINE- CREATININE 1.0 (05/20/22) BILIRUBIN- BILIRUBIN, TOTAL 1.0 (05/20/22) AST- 05/20/2022 09:03 PLASMA AST/SGOT 20 U/L Ref: <=3 4 ALT- 05/20/2022 09:03 PLASMA ALT/SGPT 15 U/L Ref: <=5 5 GFR- EGFR (04/17) 10/29/21 @ 0912 82 CREATININE EGFR (CKD-EPI) 05/20/22 @ 0903 78 A1C- HEMOGLOBIN A1C 6.1 H (04/22/22) Troponin- TROPONIN - NONE FOUND Blood Type- SLT - Lab Tests Selected No selection items chosen for this component. ----DIAGNOSTIC STUDIES EK05/20/22 NSR, 70 bpm 12/18/21 SB w/PACs, 55 bpm TTE: 02/07/22 [facility] Final Impressions 1. No evidence of carcinoid heart disease. 2. Normal left ventricular c hamber size, no regional wall motion abnormalities, calculated 2-D linear ejection fraction 57%. 3. Grade 1/3 left ventricular diastolic dysfunct ion, consistent with low to normal left ventricular filling pressure. 4. Mildly enlarged right ventricular chamber siz e, normal systolic function, estimated right ventricular systolic pressure 32 mmHg (right atrial pressure of 5 mmHg). 5. No hemodynamically significant valvular heart disease. 6. Normal inferior vena cava size with normal in spiratory collapse (>50%). No pericardial effusion. 7. Previous shunt study performed on KENDY study f rom 04-OCT-2019, in which no intracardiac shunt was identified (images review ed today). A repeat shunt study not therefore not repeated on today's examination. Stress Test: 07/11/09 Impression: 1. No ischemia demonstrated. 2. Left ventricula r ejection fraction 62%. 3. No wall motion abnormality. CT Chest: 04/29/22 Impression: 1. No acute pathology in the [...] disease better evaluated on PET CT imaging. ----Risk Stratification Revised Cardiac Risk Index (RCRI): 1 risk factor or class II CAPRINI score: 11 or highest risk ----ASSESSMENT/PLAN This is a 76Y.O. undergoing evaluation for R-ach illes tendon, bone spur debridement, and gastroc recession. The final an esthesia plan will be determined by the providers on the day of surger y. Cardiac: Known paroxysmal a-fib on AC. Denies chest pain/palpitations/presyncope/syncop e/orthopnea/SOB/PND. Pulmonary: No known pulmonary disease. Neuro: Known cardioembolic CVA . Malignancy: Known carcinoid tumor w/mets on eotide IM (last 05/20/22) & prostate CA s/p RRP '14. Infectious: Reports chronic intermittent sinus c ongestion, runny nose, and a productive cough (also noted in PCP note from Ju ly ). He otherwise denies fever, chills, body aches, o r other cold/flu sx. WBC WNL on 05/21/22. Adding on SC as FYI, should COVID test be needed prior to DOS . Hematologic: clinic recs for warfarin: BEFORE THE PROCEDURE: - NO warfarin for [...] the chances of a bleedin g complication. Anesthesia Plan: Final plan TBD by anesthesia an d surgical teams on DOS. Adding on PAC Attending Dr. Youssef for any further recs in pt. w/hx of carcinoid tumor. Phone time documentation: Time spent on phone ca ll was between 21-30 minutes /mustapha/ ELIZABETH SAUER, DNP, AGNP-C ADULT THAD NURSE PRACTITIONER Signed: 05/28/2022 13:49 Receipt Acknowledged By: 05/28/2022 14:21 /mustapha/ DEBI CAIN RN REGISTERED STAFF NURSE * AWAITING SIGNATURE * KARLI YOUSSEF 05/28/2022 ADDENDUM STATUS: COMPLETED play writer received an alert from anes regarding the below chronic concern: ENDING DOS, COVID+ Aug, treated sx at home Reports chronic intermittent sinus congestion, r unny nose, and a productive cough (also noted in PCP not e from March). He otherwise denies fever, chills, body aches, or other cold/flu sx surgery is 06/06 please alert play writer if he should get a c ovid 19 test prior to DOS. was cleared on 05/20 per med pre-op. Thank you /kanchan CAIN RN REGISTERED STAFF NURSE Signed: 05/28/2022 14:21 Receipt Acknowledged By: 05/28/2022 14:29 /mustapha/ JIGNESH BEAULIEU DPM STAFF LEAD ATHLETE 05/28/2022 ADDENDUM STATUS: COMPLETED I attempted to call . No answer. He will have a COVID-19 test on the morning befo re surgery, if positive his surgery will need to be tali yed. If he would like to test now, he is welcome do this now so he does not have a surprise result o n the date of surgery. /kanchan BEAULIEU DPM STAFF LEAD ATHLETE Signed: 05/28/2022 14:31 Receipt Acknowledged By: * AWAITING SIGNATURE * DEBI CAIN
--- OUTSIDE RECORDS SUMMARY | 2022-06-06 12:11 | XMS_ITS | Encounter Summary ---
:1945 Author Organization [facility] Address [address] [place] [address] Care Team Providers Name Role Phone Unavailable Primary Care Provider Unavailable Reason for Referral MRI/CAT/PET Scan (Routine) - Closed Specialty Diagnoses / Procedures Referred By Contact Refer red To Contact Radiology Diagnoses Carcinoid Tumor Malignant (HCC) Hermila Coe M.D. [facility] Procedures CT Chest without IV Contrast [address] [place] [address] Referral ID Status Reason Start Date Expiration Date Visits Requ ested Visits Authorized [id number] Closed 10/15/2021 10/15/2022 1 1 Reason for Visit MRI/CAT/PET Scan (Routine) - Closed Specialty Diagnoses / Procedures Referred By Contact Refer red To Contact Radiology Diagnoses Carcinoid Tumor Malignant (HCC) Hermila Coe M.D. [facility] Procedures CT Chest without IV Contrast [address] [place] [address] Referral ID Status Reason Start Date Expiration Date Visits Requ ested Visits Authorized [id number] Closed 10/15/2021 10/15/2022 1 1 Encounter Details Date Type Department Care Team Description 02/07/2022 Hospital Encounter Department of Hermila Coe cinoid Tumor Radiology, Lurdes Encarnacion M.D. Malignant (HCC) Building, in [address] [facility] [address] [facility] [phone] [place], [place] (Work) [phone] Social History Tobacco Use Types Packs/Day Years [...] or relatives? How often do you attend latter day or More than 4 times per year 09/30/2019 jain services? Do you belong to any clubs or Yes 09/30/2019 organizations such as latter day groups, unions, fraternal or athletic groups, or [...] have completed or the highest Darrin, MEd, COMMODITY LOAN CLERK, BERHT[employer]) degree you have received? Sex Assigned at [...] Procedure Name Priority Date/Time Associated Comments Diagnosis CT CHEST WITHOUT RAD - Routine 02/07/2022 11:22 Carcinoid Tumor Res ults for this IV CONTRAST (most inpatients AM CDT Malignant (HCC) procedur e are in and all the results outpatients) section. documented in this encounter Results CT Chest without IV Contrast (02/07/2022 11:22 AM CDT) Anatomical Region Laterality Modality Chest, Thoracic RST LOS, Thoracic ARZ N/A Co mputed Tomography, Computed LOS, Thoracic FLA LOS Tomography Specimen (Source) Anatomical Collection Method Collection Time Re ceived Time Location / / Volume Laterality 02/07/2022 12:36 PM CDT Impressions 02/07/2022 1:13 PM CDT 1. ??New, likely inflammatory, groundglass opacities in the lingula. 2. ??Remainder of exam is stable. Narrative 02/07/2022 1:13 PM CDT EXAM: CT CHEST WITHOUT IV CONTRAST COMPARISON: 10/11/2021, 05/17/2021 FINDINGS: Scattered lung micronodules are stable. No new or enlarging lung nodules. Focal groundglass opacities in the posterior right upper l obe are stable. New focal groundglass opacity is present in the lingula. Atelectasis is present in t he lung bases. No pleural effusion. Stable heart size and coronary artery ca lcification. There are mild mitral annular calcifications. No pericardial effusion is present. Mildly enlarged left internal mammary ly mph node is unchanged. No new enlarged lymph nodes. Scattered sclerotic bone lesions are sta ble, including the largest in the left side of the manubrium. No new aggressive bone lesion s. Bones are diffusely demineralized. 3D maximum intensity projection (MIP) im ages were created on a dependent workstation as ordered by the treating provider and reviewed by [facility] radiologist to increase sensitivity for detection of pulmonary nodules. Procedure Note Kade Ferrara M.D. - 02/07/2022 EXAM: CT CHEST WITHOUT IV CONTRAST COMPARISON: 10/11/2021, 05/17/2021 FINDINGS: Scattered lung micronodules are stable. No new or enlarging lung nodules. Focal groundglass opacities in the posterior right upper l obe are stable. New focal groundglass opacity is present in the lingula. Atelectasis is present in t he lung bases. No pleural effusion. Stable heart size and coronary artery ca lcification. There are mild mitral annular calcifications. No pericardial effusion is present. Mildly enlarged left internal mammary ly mph node is unchanged. No new enlarged lymph nodes. Scattered sclerotic bone lesions are sta ble, including the largest in the left side of the manubrium. No new aggressive bone lesion s. Bones are diffusely demineralized. 3D maximum intensity projection (MIP) im ages were created on a dependent workstation as ordered by the treating provider and reviewed by e radiologist to increase sensitivity for detection of pulmonary nodules. IMPRESSION: 1. New, likely inflammatory, groundglass opacities in the lingula. 2. Remainder of exam is stable. Hermila MONTOYA CT PROCEDURES documented in this encounter Visit Diagnoses Diagnosis Carcinoid Tumor Malignant (HCC) documented in this encounter Care Teams Rehab Office Coordinator Relationship Specialty Start Date End Date [facility] 05/22/21 [place] [address] documented as of this encounter
--- OUTSIDE RECORDS SUMMARY | 2022-06-06 12:11 | XMS_ITS | Clinical Summary ---
:1945 Author Organization [employer] Address [place] [address] Care Team Providers Name Role Phone Rosalinda Yancey MD Primary Care Provider Allergies Active Allergy Reactions Severity Noted Date Comments Naproxen GI Upset 10/04/2016 Soap Rash 10/04/2016 Dial soap Medications Medication Sig Dispensed Refills Start Date End Date Status sotalol (BETAPACE) 80 Take 1 tablet by 180 tablet 4 06/23/2019 Active mg tabletIndications: mouth every 12 Atrial flutter with hours. rapid ventricular response (HC) ELIQUIS 5 mg Take 1 tablet by 180 tablet 4 06/23/2019 Active tabletIndications: mouth 2 times Atrial flutter with daily. 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 Prostate cancer 10/04/2016 IBS (irritable bowel syndrome) 10/04/2016 Sensorineural hearing loss, asymmetrical 07/09/2007 Subjective tinnitus 07/09/2007 Family History Medical History Relation Name Comments Other Brother Carotid endoarte rectomy Heart Disease Father CABG Heart failure Father Dementia Mother Other Mother AAA Other cancer Mother Carotic endoater erectomy Relation Name Status Comments Brother Father Mother Social History Tobacco Use Types Packs/Day Years Used Date Never Smoker Smokeless Tobacco: Never Used Alcohol Use Standard Drinks/Week Comments Yes 0 (1 standard drink = 0.6 oz pure 2 beve rages per week (beer, wine) alcohol) Alcohol Habits Answer Date Recorded How often do you have a drink Not asked containing alcohol? How many drinks containing alcohol do Not asked you have on a typical day when you are drinking? How often do you have six or more Not asked drinks on one occasion? 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 Oxygen Saturation 95% 06/23/2019 3:28 PM CDT Inhaled Oxygen Concentration - - Weight 94.3 kg (208 lb) 06/23/2019 3:28 PM CDT Height 180.3 cm (5' 11) 06/23/2019 3:28 PM CDT Body Mass Index 29.01 06/23/2019 3:28 PM CDT Plan of Treatment Health Maintenance Due Date Last Done Comments COVID-19 vaccine series (#1) 1945 Tdap 1955 Depression screening for age 12+ 1956 Hepatitis C screening for age 0906/05/1962 18-79 Tetanus booster 1964 Zoster (shingles) series for age 0906/05/1994 50+ (1 of 2) Medicare Wellness for age 65+ 2009 Pneumococcal series for age 65+ (1 2009 - PCV) BMI (ht and wt on same day) for 06/23/2020 06/23/2019, /2 01/2019, age 18+ 07/15/2018, Additional history exists Influenza for age 65+ 05/15/2022 Results Not on filefrom Last 3 Months Insurance Payer Benefit Plan / Subscriber ID Effective Dates Phone Addre ss Type Group MEDICARE PART A MEDICARE PART A [id number] 2009-Present ATTN: CLAIMS - HB USE ONLY HB ONLY [address] [place] [address] MEDICARE PART B MEDICARE PART B [id number] 2009-Present ATTN: CLAIMS - HB USE ONLY HB ONLY [address] [place] [address] MEDICARE - PB MEDICARE PB [id number] 2009-Present ATT N: CLAIMS USE ONLY ONLY [address] [place] [address] FOR [id number] 2016-Present [address] [place] [address] [employer] [address] (Home) [place] [address] Advance Directives Latest Code Status on File Code Status Date Activated Date Inactivated Comments Full Code 10/07/2016 1:07 PM 10/08/2016 3:08 PM Full Code 10/06/2016 11:29 AM 10/07/2016 1:07 PM Full Code 10/04/2016 12:47 PM 10/06/2016 11:29 AM Care Teams Other Sports Official Relationship Specialty Start Date End Date Rosalinda Yancey MD PCP - General Internal Medicine 10/22/16
--- OUTSIDE RECORDS SUMMARY | 2022-06-06 12:11 | XMS_ITS | Encounter Summary ---
:1945 Author Organization [facility] Address [address] [place] [address] Care Team Providers Name Role Phone Unavailable Primary Care Provider Unavailable Reason for Referral MRI/CAT/PET Scan (Routine) - Closed Specialty Diagnoses / Procedures Referred By Contact Refer red To Contact Radiology Diagnoses Carcinoid Tumor Malignant (HCC) Hermila Coe M.D. [facility] Procedures MR Abdomen without and with IV Contrast [address] [place] [address] Referral ID Status Reason Start Date Expiration Date Visits Requ ested Visits Authorized [id number] Closed 10/15/2021 10/15/2022 1 1 Reason for Visit MRI/CAT/PET Scan (Routine) - Closed Specialty Diagnoses / Procedures Referred By Contact Refer red To Contact Radiology Diagnoses Carcinoid Tumor Malignant (HCC) Hermila Coe M.D. [facility] Procedures MR Abdomen without and with IV Contrast [address] [place] [address] Referral ID Status Reason Start Date Expiration Date Visits Requ ested Visits Authorized [id number] Closed 10/15/2021 10/15/2022 1 1 Encounter Details Date Type Department Care Team Description 02/07/2022 Hospital Encounter Department of Hermila Coe cinoid Tumor Radiology, Lurdes Encarnacion M.D. Malignant (HCC) [facility], in [address] [facility] [address] [facility] [phone] [place], [place] (Work) [id number] [phone] Social History Tobacco Use Types Packs/Day Years [...] or relatives? How often do you attend yazidi or More than 4 times per year 09/30/2019 judaism services? 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 Sex Assigned [...] Procedure Name Priority Date/Time Associated Comments Diagnosis MR ABDOMEN RAD - Routine 02/07/2022 12:27 Carcinoid Tumor Results for this WITHOUT AND WITH (most inpatients PM CDT Malignant (HCC) proc edure are in IV CONTRAST and all the results outpatients) section. documented in this encounter Results MR Abdomen without and with IV Contrast (02/07/2022 12:27 PM CDT) Anatomical Region Laterality Modality Abdomen, Abdominal RST LOS, Abdominal ARZ LOS, N/A Magnetic Resonance Abdominal FLA LOS Specimen (Source) Anatomical Collection Method Collection Time Re ceived Time Location / / Volume Laterality 02/07/2022 12:32 PM CDT Impressions 02/07/2022 12:48 PM CDT No significant interval change of the me tastatic disease in the abdomen. Narrative 02/07/2022 12:48 PM CDT EXAM: ??MR ABDOMEN WITHOUT AND WITH IV CONTRAST COMPARISON: ??10/11/2021 FINDINGS: Redemonstrated multiple hepatic lesions. For reference, 1.9 cm in the segment 6 on image 25 series 6 and 1 cm in the hepatic dome on image 80 series 6, not significantly changed. Additional lesions are seen. Mesenteric, retrocrural, and retro peritoneal lymph nodes are again seen. For reference, multilobular mass in the mesentery along the SMA measuring about 4 cm on image 118 series 14 and left paraortic lymph node measuring abou t 1.3 on image 94 series 14, not significantly changed when measured in same fashion. Numerous osseo us lesions throughout the visualized bones. For reference, 1.8 cm in the right posterior compartmen t of the T11 on image 44 series 14, not significantly changed. 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 Diffuse atrophy of the pancreas parenchyma. Cysts in the right kidney. Procedure Note Peter Sevilla M.D. - 02/07/2022 EXAM: MR ABDOMEN WITHOUT AND WITH IV CON TRAST COMPARISON: 10/11/2021 FINDINGS: Redemonstrated multiple hepatic lesions. For reference, 1.9 cm in the segment 6 on image 25 series 6 and 1 cm in the hepatic dome on image 80 series 6, not significantly changed. Additional lesions are seen. Mesenteric, retrocrural, and retro peritoneal lymph nodes are again seen. For reference, multilobular mass in the mesentery along the SMA measuring about 4 cm on image 118 series 14 and left paraortic lymph node measuring abou t 1.3 on image 94 series 14, not significantly changed when measured in same fashion. Numerous osseo us lesions throughout the visualized bones. For reference, 1.8 cm in the right posterior compartmen t of the T11 on image 44 series 14, not significantly changed. 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 Diffuse atrophy of the pancreas parenchyma. Cysts in the right kidney. IMPRESSION: No significant interval change of the me tastatic disease in the abdomen. Hermila MONOTYA MRI PROCEDURES documented in this encounter Visit Diagnoses Diagnosis Carcinoid Tumor Malignant (HCC) documented in this encounter Administered Medications Inactive Administered Medications - up to 3 most recent administrations Medication Order MAR Action Action Date Dose Rate Site gadobutrol injection 0.01-30 mL Given 02/07/2022 12:16 PM CDT 10 mL (GADAVIST) 0.01-30 mL, intravenous, Once in imaging, contrast, Starting on Thu02/07/22 at 1131, For 1 dose, Imaging Protocol Orders, Dose per Radiant Medication Guidelines Intrathecal doses greater than 0.25 mL not recommended. sodium chloride (PF) 0.9 % injection 1-1 00 mL Given 02/07/2022 12:16 PM CDT 40 mL 1-100 mL, intravenous, Once, On Thu02/07/22 at 1145, For 1 dose, Imaging Protocol Orders documented in this encounter Care Teams Bioinformatics Developer Relationship Specialty Start Date End Date [facility] 05/22/21 [place] [address] documented as of this encounter
--- OUTSIDE RECORDS SUMMARY | 2022-06-06 12:11 | XMS_ITS | Encounter Summary ---
:1945 Author Organization [facility] Address [address] [place] [address] Support Name Relationship Address Phone Arti CORONEL Unavailable [address] [facility] [place] [address] ADITYA MALIN Unavailable [address] [place] [place] [address] Insurance Providers: All historical and current Section [...] MEDICARE MEDICARE PART May 15, PART A [id number] HOMER HUNTER (WNR) (M) A 2008 94A [phone] ,ELLE MEDICARE MEDICARE PART May 15, PART B [id number] HOMER HUNTER (WNR) (M) B 2008 94A [phone] ,ELLE Selected Encounter This section includes the information on record at NH for the Encounter. Date/Time Encounter Type Encounter Reason Provider Source Description 2022 PRO PHONE TELEPHONE/SURGERY ICD-10-CM Z71.9 Kasia CAIN 09:39 PM CALL 5-10 MIN BUDDY Dougherty unspecified with Provider Comments: Counseling, unspecified IHE Encounter Template Text not used by [facility] Assessments - Encounter Diagnoses This section includes the primary and secondary diagnoses documented for the Encounter. Date/Time Primary/Secondary Diagnosis Name Provider Source Diagnosis 2022 PRIMARY CounselingANT BRITTN [facility] 09:39 PM unspecified BUDDY Loza [facility] Plan of Treatment: Future Appointments (+ 6 months) and Future Tests (+/- 45 days) The Plan of Treatment section includes future care activities for the patient from [facility] This section includes future appointments and future orders which are active, pending orscheduled.Future Appointments This section includes appointments that were scheduled to occur 6 months from the date of the Encounter, up to a maximum of 20 appointments. The data comes from all [facility]. Appointment Date/Time Appointment Type Appointment Facili ty Name Jun 17, 2022 08:00 AM AMBULATORY - NONE [facility] Jun 17, 2022 09:00 AM AMBULATORY - MEDICINE [facility] Jun 17, 2022 09:30 AM AMBULATORY - MEDICINE [facility] Active, Pending, and Scheduled Orders This section includes a listing of several types of active, pending, and scheduled orders, including clinic medications orders, diagnostic test orders, procedure orders and consult orders; where the start date of the order is 45 days before the date of the Encounter or 45 days after the date of the Encounter. The data comes from all [facility]. Test Date/Time Test Type Test Details Facility Name Jun 06, 2022 06:00 Laboratory - COVID-19 DIAGNOSTIC PANEL [facility] AM Chemistry Order (CEPHEID) NASOPHARYNGEAL SWAB SP ONCE Jun 06, 2022 06:00 Laboratory - PROTHROMBIN TIME/INR [facility] AM Chemistry Order PLASMA SP ONCE Jun 17, 2022 12:00 Laboratory - CBC & DIFF [facility]LOOD [facility] AM Chemistry Order ONCE Jun 17, 2022 12:00 Laboratory - COMPREHENSIVE METABOLIC [facility] Chemistry Order PANEL+MG PLASMA ONCO SP Jun 17, 2022 12:00 Laboratory - SEROTONIN SERUM SP ONCE [facility] AM Chemistry Order Jun 17, 2022 12:00 Laboratory - CHROMOGRANIN A(ROSE) [facility] AM Chemistry Order SERUM SP ONCE [...] Comment May 20, 2022 09:[address] [facility] PT/INR(ANTICOAG) Speci men Type: PLASMA No comment enter ed. Ordering Provid er: CATALINA HEAD Report Released Date/Time: Apr 23, 2022 03:52 PM Reporting Lab: [facility] [id number] Performing Lab: [facility] [id number] .INR 2.1 H 0.8-1.1 .PT 24.9 H 9.4-12.5 May 20, 2022 09:[address] [facility] CBC & DIFF Specim en Type: BLOOD Comment: Automa rosalba Differential Performed Ordering Provid er: LILI GARCIA Report Released Date/Time: Feb 17, 2022 11:17 AM Reporting Lab: [facility] [id number] Performing Lab: [facility] [id number] WBC 4.78 4.0-11.0 RBC 4.19 L 4.6-6.2 [...] IG(META,MYELO,PRO) 0.4 ABS IMMATURE GRAN 0.02 0-0.1 May 20, 2022 [facility] COMPREHENSIVE METABOLIC Spec imen Type: PLASMA 09:03 AM PANEL+MG No comment enter ed. Ordering Provid er: LILI GARCIA Report Released Date/Time: Feb 17, 2022 11:17 AM Reporting Lab: [facility] [address] [facility] [id number] Performing Lab: [facility] [id number] CREATININE 1.0 0.7-1.2 UREA NITROGEN 13 8-26 [...] smoking, or tobacco-related health factor, from the [facility] where the Encounter took place. Date/Time Current Smoking Status Comment Facility Apr 04, 2022 08:30 AM [place]-TOBACCO NEVER USED [place] [facility] Tobacco Use History This section includes a history of the smoking, or tobacco- related health factors, that were collected on or before the date of the Encounter. The data comes from the [facility] where the Encounter took place. Date/Time Smoking Status/Tobacco Use Comment [facility] May 15, 2021 10:00 AM VA-TOBACCO NEVER USED [place] [facility] Oct 05, 2019 10:05 AM [place]-TOBACCO NEVER USED [place] [facility] [...] the Encounter. Date/Time Encounter Note(s) Provider Source 2022 09:39 PM SURGERY FLOOR TILING PROFESSIONAL NOTE: NGHIA CAIN [facility] LOCAL TITLE: SURGERY COORDINATOR NOTE STANDARD TITLE: SURGERY FLOOR TILING PROFESSIONAL NOTE DATE OF NOTE: 2022@21:39 ENTRY DATE: 2022@21:39:39 AUTHOR: DEBI CAIN EXP COSIGNER: URGENCY: STATUS: COMPLETED late entry due to network being down speech writer was informed by management that due to cu rrent network being down surgeries for tomorrow 06/06 need to be canceled called and vm was left 1519, 1523 to jillian to discuss surgery for tomorrow speech writer reached at 1557. informed about need to cx his surgery. Informed him to restart his blood thinner. Once network is back up we will contact him to discuss rescheduling options. verbalized understanding of above cancel ation confirmed surgeon was also aware of cancelation. /mustapha/ DEBI CAIN RN REGISTERED STAFF NURSE Signed: 2022 21:44
--- OUTSIDE RECORDS SUMMARY | 2022-06-06 12:12 | XMS_ITS | Encounter Summary ---
:1945 Author Organization [facility] Address [address] [place] [address] Care Team Providers Name Role Phone Unavailable Primary Care Provider Unavailable Reason for Referral MRI/CAT/PET Scan (Routine) - Closed Specialty Diagnoses / Procedures Referred By Contact Refer red To Contact Radiology Diagnoses Carcinoid Tumor Malignant (HCC) Mikhail Mcfadden M.D. [facility] Procedures CT Chest without IV Contrast CT Chest with IV Contrast [address] [place], [place] [phone] Referral ID Status Reason Start Date Expiration Date Visits Requ ested Visits Authorized [id number] Closed 05/21/2021 05/21/2022 1 1 Outpatient (Routine) - Closed Specialty Diagnoses / Procedures Referred By Contact Refer red To Contact Oncology Mikhail Mcfadden M. D. [facility] [address] [place] [address] Referral ID Status Reason Start Date Expiration Date Visits Requ ested Visits Authorized [id number] Closed 05/21/2021 05/21/2022 1 1 MRI/CAT/PET Scan (Routine) - Closed Specialty Diagnoses / Procedures Referred By Contact Refer red To Contact Radiology Diagnoses Carcinoid Tumor Malignant (HCC) Mikhail Mcfadden M.D. [facility] Procedures MR Abdomen without and with IV Contrast [address] [place], [place] [address] Referral ID Status Reason Start Date Expiration Date Visits Requ ested Visits Authorized [id number] Closed 05/21/2021 05/21/2022 1 1 Reason for Visit Outpatient (Routine) - Closed Specialty Diagnoses / Procedures Referred By Contact Refer red To Contact Oncology Mikhail Mcfadden M. D. [facility] [address] [place] [phone] Referral ID Status Reason Start Date Expiration Date Visits Requ ested Visits Authorized [id number] Closed 01/01/2021 01/01/2022 1 1 Encounter Details Date Type Department Care Team Description 05/21/2021 Office Visit Department of Oncology Mikhail Mcfadden, Carcinoid Tumor in [place] Malignant (HCC) [address] (Primary Dx) [address] [place] [phone] Social History Tobacco Use Types Packs/Day Years [...] or relatives? How often do you attend pentecostalism or More than 4 times per year 09/30/2019 episcopalian services? Do you belong to any clubs or Yes 09/30/2019 organizations such as pentecostalism groups, unions, fraternal or athletic groups, or [...] have completed or the highest Darrin, MEd, WASHING MACHINE ASSEMBLER, BERTHA) degree you have received? Sex Assigned at Date Recorded Not on file documented as of this encounter Last Filed Vital Signs Vital Sign Reading Time Taken Comments Blood Pressure 121/73 05/21/2021 9:19 AM CDT Pulse 56 05/21/2021 9:19 AM CDT Temperature 37 ??C (98.6 ??F) 05/21/2021 9:19 AM CDT Respiratory Rate - - Oxygen Saturation 96% 05/21/2021 9:19 AM CDT Inhaled Oxygen Concentration - - Weight 97 kg (213 lb 13.5 oz) 05/21/2021 9:19 AM CDT Height - - Body Mass Index 30.07 01/01/2021 8:47 AM CDT documented in this encounter Progress Notes Mikhail Mcfadden M.D. - 05/21/2021 9:30 AM CDT Referring Provider: Mikhail Mcfadden M.D. [address] [place] [phone] Primary oncologist: Dr. Aldridge Staffing oncologist: Dr. Puentes Primary fellow: Dr. 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 SUBJECTIVE Mr. Villeda is a very pleasant 75-year-old gentleman with a history most notable for cerebrovascular disease, atrial fibrillation, and venous thromboembolism. His oncologic history as follows: 2006: Diagnosed with adenocarcinoma of the prostate which was treated with high- intensity focused ultrasound in 2007 (in [place]) October 27, 2008: NET diagnosed during workup prostate cancer with rising PSA. At that time, a CT scan showed a 2.5- x 2.5- x 1.8-cm mesenteric mass anteriorly to the aortic bifurcation. 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 Continued observation recommended. February 08, 2014: Salvage prostatectomy and bilateral pelvic LN dissection ([place] 3 + 4, extraprostatic extension focally present, [...] 11, 2019: Initial evaluation at [facility]. ?? Review of outside DOTATATE scan (10/07/2019) [...] A was normal. Interval History: Mr. Villeda continues to do well. He is still receiving long-acting [facility] He reports that he remains asymptomatic but on prompting reports rarely experiencing gnawing abdominal pain and loose stool. On average, he has 2-3 bow el movements per day. He has no bony pain. He denies flushing, palpitations, dyspnea, and chest discomfort. His weight is stable. He continues to struggle with plantar fasciitis but still is able to get our for regular road biking of up to 20 miles at a time. Review of systems: All other systems negative [...] level. 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 He is to [place] with no children. He hopes to take up photography. He is a never smoker. Family History: Per EMR OBJECTIVE Vitals: 05/21/21 0919 BP: 121/73 Patient Position: Sitting Pulse: (!) 56 Temp: 37 ??C Weight: 97 kg SpO2: 96% TempSrc: Tympanic Body surface area is 2.2 meters squared. Physical exam: General: No acute distress. ECOG 0. Independent [id number]. Normal gait speed. Rises from lying tositting without assistance. HEENT: He is wearing a mask today. His eyes are not injected. Lymph: No appreciable cervical or supraclavicular adenopathy. Heart: Rate controlled. Irregular rhythm. Mild systolic ejection murmur at the apex. [...] recorded. 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 Villeda in follow-up. He continues to be largely asymptomatic from hisneuroendocrine tumor, though I encourage him to keep a diary of the timing of the gnawing abdominal discomfort and loose stools. Today's imaging shows ongoing stability of his disease. I recommend no change in therapy today. We will follow his disease with MRI liver and CT chest every 4 months. RepeatTTE every couple of years (next due 2021). He is receiving octreotide LAR 20 mg which can be increased to 30 mg every 4 weeks, if needed, on the basis of symptoms. Short acting octreotide could also be added for breakthrough symptoms. With progression down the road, consideration can be given to PRRT(NETTER-3) or everolimus (RADIANT-4); however, no change in therapy is recommended at this time. Please send this note to providers at the [facility]. PATIENT EDUCATION Explained the content in detail using visual aids, teach back and verbal lessons; patient expressed understanding of the above. Patient was willing and able to learn, actively involved in the above discussion. ADMINISTRATIVE BILLING I personally spent a total of 20 minutes face to face with the patient with over half of that time in counseling and discussion and/or coordination of care as described above. documented in this encounter Plan of Treatment Scheduled Referrals Name Type Priority Associated Diagnoses Order [facility] Oncology office Outpatient Referral Routine Expec rosalba: visit (clinic) 09/24/2021 General; GIH Net (Approximat e), Expires: 05/21/2024 documented as of this encounter Results MR Abdomen without and with IV Contrast (10/11/2021 11:27 AM AIRDOX FITTER) Anatomical Region Laterality Modality Abdomen, Abdominal RST LOS, Abdominal ARZ LOS, N/A Magnetic Resonance Abdominal FLA LOS Specimen (Source) Anatomical Collection Method Collection Time Re ceived Time Location / / Volume Laterality 10/11/2021 12:19 PM AIRDOX FITTER Impressions 10/11/2021 3:16 PM AIRDOX FITTER Stable disease. No new disease. Narrative 10/11/2021 3:16 PM AIRDOX FITTER EXAM: ??MR ABDOMEN WITHOUT AND WITH IV CONTRAST COMPARISON: ??MR abdomen dated 05/17/2021 and 12/28/2020 FINDINGS: ?? Multiple hepatic metastases have not sig nificantly changed, with stable two dominant arterial-phase enhancing lesion s in hepatic segments 6 (12/45) and 7 (12/13), the largest measuring 1.8 cm. S table hepatic cysts. No new/enlarging liver lesions. Patent hepatic vasculatur e. Cholecystectomy. No intrahepatic or extra hepatic biliary dilatation. Unchanged 3.8 x 3.9 x 4.6 cm (AP, transv erse, craniocaudal) soft-tissue mass in the central mesentery (). Addition al para-aortic and pre-aortic adenopathy is also stable (, ). No new/ enlarging lymph nodes in the visualized [id number]. Right renal cysts. 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 Unremarkable sple en. No significant interval change of osseou s metastatic burden with innumerable lesions throughout the imaged skeleton. Procedure Note Samira Wang M.D. - 10/11/2021Format ting of this note might be different from the original. EXAM: MR ABDOMEN WITHOUT AND WITH IV CON TRAST COMPARISON: MR abdomen dated 05/17/2021 an d 12/28/2020 FINDINGS: Multiple hepatic metastases have not sig nificantly changed, with stable two dominant arterial-phase enhancing lesion s in hepatic segments 6 (12/45) and 7 (12/13), the largest measuring 1.8 cm. S table hepatic cysts. No new/enlarging liver lesions. Patent hepatic vasculatur e. Cholecystectomy. No intrahepatic or extra hepatic biliary dilatation. Unchanged 3.8 x 3.9 x 4.6 cm (AP, transv erse, craniocaudal) soft-tissue mass in the central mesentery (). Addition al para-aortic and pre-aortic adenopathy is also stable (, ). No new/ enlarging lymph nodes in the visualized [id number]. Right renal cysts. 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 Unremarkable sple en. No significant interval change of osseou s metastatic burden with innumerable lesions throughout the imaged skeleton. IMPRESSION: Stable disease. No new disease. Mikhail Mcfadden M.D. [facility] MRI PROCEDURES CT Chest without IV Contrast (10/11/2021 10:25 AM AIRDOX FITTER) Anatomical Region Laterality Modality Chest, Thoracic RST LOS, Thoracic ARZ N/A Co mputed Tomography, Computed LOS, Thoracic FLA LOS Tomography Specimen (Source) Anatomical Collection Method Collection Time Re ceived Time Location / / Volume Laterality 10/11/2021 10:42 AM AIRDOX FITTER Impressions 10/11/2021 11:07 AM AIRDOX FITTER 1. No change in posterior mediastinal and left internal mammary lymphadenopathy. 2. No change in subtle sclerotic bone me tastases. Narrative 10/11/2021 11:07 AM AIRDOX FITTER EXAM: CT CHEST WITHOUT IV CONTRAST COMPARISON: 05/17/2021. FINDINGS: A few tiny bilateral lung micronodules a re unchanged compared with an earlier exam from 02/27/2020. No new or enlargin g lung nodules. Stable mild subtle ill-defined groundgla ss opacity in the right upper lobe which is nonspecific in appearance, but may re present some postinflammatory scarring. Mild scarring or atelectasis in the lung bases. An 8mm left internal mammary lymph node (series 3, image 236) is unchanged compared with an earlier outside exam fr 08/26/2019. Stable posterior mediastinal lymph nodes, the largest gaby suring 14 x 13 mm between the esophagus and azygos vein (series 4, image 61). Ot her subcentimeter mediastinal and right retrocrural lymph nodes are unchanged. No pleural effusions. Mild coronary artery calcification. No change in numerous subtle sclerotic b one lesions, the most prominent measuring 12 x 9 mm on the left side of the manubrium (series 3, image 118 an series 6, image 43). The bone lesions ar e better demonstrated on the outside PET scans from 01/28/2021 and 10/07/2019. 3D maximum intensity projection (MIP) im ages were created on a dependent workstation as ordered by the treating p rovider and reviewed by the radiologist to increase sensitivity for detection of pulmonary nodules. Procedure Note Mustapha Red M.D. - 10/11/2021Formatt ing of this note might be different from the original. EXAM: CT CHEST WITHOUT IV CONTRAST COMPARISON: 05/17/2021. FINDINGS: A few tiny bilateral lung micronodules a re unchanged compared with an earlier exam from 02/27/2020. No new or enlargin g lung nodules. Stable mild subtle ill-defined groundgla ss opacity in the right upper lobe which is nonspecific in appearance, but may re present some postinflammatory scarring. Mild scarring or atelectasis in the lung bases. An 8mm left internal mammary lymph node (series 3, image 236) is unchanged compared with an earlier outside exam fr 08/26/2019. Stable posterior mediastinal lymph nodes, the largest gaby suring 14 x 13 mm between the esophagus and azygos vein (series 4, image 61). Ot her subcentimeter mediastinal and right retrocrural lymph nodes are unchanged. No pleural effusions. Mild coronary artery calcification. No change in numerous subtle sclerotic b one lesions, the most prominent measuring 12 x 9 mm on the left side of the manubrium (series 3, image 118 an series 6, image 43). The bone lesions ar e better demonstrated on the outside PET scans from 01/28/2021 and 10/07/2019. 3D maximum intensity projection (MIP) im ages were created on a dependent workstation as ordered by the treating milagros louie and reviewed by the radiologist to increase sensitivity for detection of pulmonary nodules. IMPRESSION: 1. No change in posterior mediastinal an d left internal mammary lymphadenopathy. 2. No change in subtle sclerotic bone me tastases. Mikhail Mcfadden M.D. IMG CT PROCEDURES Creatinine with Estimated GFR (10/11/2021 9:50 AM AIRDOX FITTER) P athologist Signature Creatinine 1.05 0.74 - 10/11/2021 DTL 1.35 mg/dL 10:55 AM AIRDOX FITTER eGFR-Non 68 >=60 10/11/2021 DTL Black/ mL/min/BSA 10:55 AM AIRDOX FITTER Ugandan Comment: ----ADDITIONAL INFORMATION---- Estimated GFR calculated using the 2009 CKD_EPI creatinine equation. eGFR-Black/ 79 >=60 mL/min/BSA 2021 10:55 AM AIRDOX FITTER DTL Comment: ----ADDITIONAL INFORMATION---- Estimated GFR calculated using the 2009 CKD_EPI creatinine equation. Specimen Anatomical Collection Method Collection Time Receive d Time (Source) Location / / Volume Laterality Blood (Blood, 10/11/2021 9:50 AM 10/11/19 22 Venous) AIRDOX FITTER 10:32 AM AIRDOX FITTER Mikhail Mcfadden M.D. LAB BLOOD ADD-ON Performing Organization Address City/State/ZIP Code Phon e Number [facility] - [address] [place], [place] [address] [place] [address] [facility] [address] (ABNORMAL) CBC with Differential, Blood (10/11/2021 9:50 AM AIRDOX FITTER) Patholo gist Method Time Signature Hemoglobin 15.0 13.2 - 10/11/2021 DTL 16.6 g/dL 10:25 AM AIRDOX FITTER Hematocrit 44.4 38.3 - 10/11/2021 DTL 48.6 % 10:25 AM AIRDOX FITTER Erythrocytes 4.41 4.35 - 10/11/2021 DTL 5.65 10:25 AM AIRDOX FITTER x10(12)/L MCV 100.7 (H) 78.2 - 10/11/2021 DTL 97.9 fL 10:25 AM AIRDOX FITTER RBC Distrib Width 12.4 11.8 - 10/11/2021 DTL 14.5 % 10:25 AM AIRDOX FITTER Platelet Count 197 135 - 317 10/11/2021 DTL x10(9)/L 10:25 AM AIRDOX FITTER Leukocytes 4.3 3.4 - 9.6 10/11/2021 DTL x10(9)/L 10:25 AM AIRDOX FITTER Neutrophils 2.20 1.56 - 10/11/2021 DTL 6.45 10:25 AM AIRDOX FITTER x10(9)/L Lymphocytes 1.19 0.95 - 10/11/2021 DTL 3.07 10:25 AM AIRDOX FITTER x10(9)/L Monocytes 0.69 0.26 - 10/11/2021 DTL 0.81 10:25 AM AIRDOX FITTER x10(9)/L Eosinophils 0.20 0.03 - 10/11/2021 DTL 0.48 10:25 AM AIRDOX FITTER x10(9)/L Basophils <0.03 0.01 - 10/11/2021 DTL 0.08 10:25 AM AIRDOX FITTER x10(9)/L Specimen Anatomical Collection Method Collection Time Receive d Time (Source) Location / / Volume Laterality Blood (Blood, 10/11/2021 9:50 AM 10/11/19 22 Venous) AIRDOX FITTER 10:19 AM AIRDOX FITTER Mikhail Mcfadden M.D. 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
--- OUTSIDE RECORDS SUMMARY | 2022-06-06 12:12 | XMS_ITS | Encounter Summary ---
:1945 Author Organization [facility] Address [address] [place] [address] Care Team Providers Name Role Phone Unavailable Primary Care Provider Unavailable Reason for Visit Reason Comments Intake Assessment Encounter Details Date Type Department Care Team Description 05/17/2021 Clinical Communication Department of Mikhail Mcfadden In take Assessment Oncology in [place], [address] [place] [address] [address] [facility] [phone] [place], [place] [phone] (Work) [phone] Social History Tobacco Use Types Packs/Day Years [...] or relatives? How often do you attend mormonism or More than 4 times per year 09/30/2019 church services? Do you belong to any clubs or Yes 09/30/2019 organizations such as mormonism groups, unions, fraternal or athletic groups, or [...] have completed or the highest Darrin, MEd, CHLORINE CELLS OPERATOR, BERTHA) degree you have received? Sex Assigned at Date Recorded Not on file documented as of this encounter Plan of Treatment Not on filedocumented as of this encounter Visit Diagnoses Not on filedocumented in this encounter
--- OUTSIDE RECORDS SUMMARY | 2022-06-06 12:12 | XMS_ITS | Encounter Summary ---
:1945 Author Organization [facility] Address [address] [place] [address] Care Team Providers Name Role Phone Unavailable Primary Care Provider Unavailable Encounter Details Date Type Department Care Team Description 10/11/2021 Hospital Encounter Department of BogdanMikhail Tumor Laboratory Medicine S, MJohnny Malignant (HCC) and Pathology, [address] [place] [address], in [place], [place] [phone] [place] [address] [place], [place] (Work) [phone] Social History Tobacco Use Types Packs/Day [...] or relatives? How often do you attend oriental orthodox or More than 4 times per year 09/30/2019 episcopalian services? Do you belong to any clubs or Yes 09/30/2019 organizations such as oriental orthodox groups, unions, fraternal or athletic groups, or school groups? How often do you attend meetings of the More than 4 times pe year 09/30/2019 clubs or organizations you belong [...] have completed or the highest Darrin, MEd, SENIOR SALES OPERATIONS MANAGER, BERTHA) degree you have received? Sex Assigned [...] Priority Date/Time Associated Comments Diagnosis CBC WITH Routine 10/11/2021 9:50 AM Carcinoid Tumor Result s for this DIFFERENTIAL, B TOWEL WEAVER Malignant (HCC) procedure are in the results section. CREATININE WITH Routine 10/11/2021 9:50 AM Carcinoid Tumor Res ults for this EGFR, S/P TOWEL WEAVER Malignant (HCC) procedure ar e in the results section. documented in this encounter Results Creatinine with Estimated GFR (10/11/2021 9:50 AM TOWEL WEAVER) P athologist Signature Creatinine 1.05 0.74 - 10/11/2021 DTL 1.35 mg/dL 10:55 AM TOWEL WEAVER eGFR-Non 68 >=60 10/11/2021 DTL Black/ mL/min/BSA 10:55 AM TOWEL WEAVER Eritrean Comment: ----ADDITIONAL INFORMATION---- Estimated GFR calculated using the 2009 CKD_EPI creatinine equation. eGFR-Black/ 79 >=60 mL/min/BSA 2021 10:55 AM TOWEL WEAVER DTL Comment: ----ADDITIONAL INFORMATION---- Estimated GFR calculated using the 2009 CKD_EPI creatinine equation. Specimen Anatomical Collection Method Collection Time Receive d Time (Source) Location / / Volume Laterality Blood (Blood, 10/11/2021 9:50 AM 10/11/19 22 Venous) TOWEL WEAVER 10:32 AM TOWEL WEAVER Mikhail Mcfadden M.D. LAB BLOOD ADD-ON Performing Organization Address City/State/ZIP Code Phon e Number [facility] - [address] [place], [place] [address] [facility] [place] [place] [address] [facility] [address] (ABNORMAL) CBC with Differential, Blood (10/11/2021 9:50 AM TOWEL WEAVER) Patholo gist Method Time Signature Hemoglobin 15.0 13.2 - 10/11/2021 DTL 16.6 g/dL 10:25 AM TOWEL WEAVER Hematocrit 44.4 38.3 - 10/11/2021 DTL 48.6 % 10:25 AM TOWEL WEAVER Erythrocytes 4.41 4.35 - 10/11/2021 DTL 5.65 10:25 AM TOWEL WEAVER x10(12)/L MCV 100.7 (H) 78.2 - 10/11/2021 DTL 97.9 fL 10:25 AM TOWEL WEAVER RBC Distrib Width 12.4 11.8 - 10/11/2021 DTL 14.5 % 10:25 AM TOWEL WEAVER Platelet Count 197 135 - 317 10/11/2021 DTL x10(9)/L 10:25 AM TOWEL WEAVER Leukocytes 4.3 3.4 - 9.6 10/11/2021 DTL x10(9)/L 10:25 AM TOWEL WEAVER Neutrophils 2.20 1.56 - 10/11/2021 DTL 6.45 10:25 AM TOWEL WEAVER x10(9)/L Lymphocytes 1.19 0.95 - 10/11/2021 DTL 3.07 10:25 AM TOWEL WEAVER x10(9)/L Monocytes 0.69 0.26 - 10/11/2021 DTL 0.81 10:25 AM TOWEL WEAVER x10(9)/L Eosinophils 0.20 0.03 - 10/11/2021 DTL 0.48 10:25 AM TOWEL WEAVER x10(9)/L Basophils <0.03 0.01 - 10/11/2021 DTL 0.08 10:25 AM TOWEL WEAVER x10(9)/L Specimen Anatomical Collection Method Collection Time Receive d Time (Source) Location / / Volume Laterality Blood (Blood, 10/11/2021 9:50 AM 10/11/19 22 Venous) TOWEL WEAVER 10:19 AM TOWEL WEAVER Mikhail Mcfadden M.D. LAB BLOOD ADD-ON Performing Organization Address City/State/ZIP Code Phon e Number [facility] - [address] [place], [place] [address] [facility] [place] [address] [facility] [address] documented in this encounter Visit Diagnoses Diagnosis Carcinoid Tumor Malignant (HCC) documented in this encounter Care Teams Radioactivity Technician Relationship Specialty Start Date End Date [facility] 05/22/[address] [place] [address] documented as of this encounter
--- OUTSIDE RECORDS SUMMARY | 2022-06-06 12:12 | XMS_ITS | Encounter Summary ---
:1945 Author Organization [facility] Address [address] [place] [address] Care Team Providers Name Role Phone Unavailable Primary Care Provider Unavailable Encounter Details Date Type Department Care Team Description 04/16/2020 Clinical Communication Division of Rashid [facility]ology in [facility] [place], [place] [address] [place] [phone] Social History Tobacco Use Types Packs/Day Years [...] or relatives? How often do you attend samaritan or More than 4 times per year 09/30/2019 episcopalian services? Do you belong to any clubs or Yes 09/30/2019 organizations such as samaritan groups, unions, fraternal or athletic groups, or [...] have completed or the highest Darrin, MEd, DIRECTOR IT, BERTHA) degree you have received? Sex Assigned at Date Recorded Not on file documented as of this encounter Plan of Treatment Not on filedocumented as of this encounter Visit Diagnoses Not on filedocumented in this encounter
--- OUTSIDE RECORDS SUMMARY | 2022-06-06 12:12 | XMS_ITS | Encounter Summary ---
:1945 Author Organization [facility] Address [address] [place] [address] Care Team Providers Name Role Phone Unavailable Primary Care Provider Unavailable Encounter Details Date Type Department Care Team Description 05/17/2021 Hospital Encounter Department of Mikhail Mcfadden Tumor Malignant (HCC); Laboratory Medicine S, MJohnny Abnormal Echocardiogram and Pathology, [address] [place] [address] in [facility] [address] [place] [phone] [place] [address] (Work) [place], [place] [phone] (Fax) [phone] Social History Tobacco Use Types Packs/Day Years [...] or relatives? How often do you attend sabianist or More than 4 times per year 09/30/2019 congregational services? Do you belong to any clubs or Yes 09/30/2019 organizations such as sabianist groups, unions, fraternal or athletic groups, or [...] have completed or the highest Darrin, MEd, DERMATOLOGY NURSE, BERTHA) degree you have received? Sex [...] Name Priority Date/Time Associated Diagnosis Comme nts CBC WITH Routine 05/17/2021 10:22 Carcinoid Tumor Results for this DIFFERENTIAL, B AM CDT Malignant (HCC) procedure are in Abnormal the results Echocardiogram section. CREATININE WITH Routine 05/17/2021 10:22 Carcinoid Tumor Resul ts for this EGFR, S/P AM CDT Malignant (HCC) procedure are in Abnormal the results Echocardiogram section. documented in this encounter Results Creatinine with Estimated GFR (05/17/2021 10:22 AM CDT) P athologist Signature Creatinine 1.08 0.74 - 05/17/2021 DTL 1.35 mg/dL 11:23 AM CDT eGFR-Non 66 >=60 05/17/2021 DTL Black/ mL/min/BSA 11:23 AM CDT Swedish Comment: ----ADDITIONAL INFORMATION---- Estimated GFR calculated using the 2009 CKD_EPI creatinine equation. eGFR-Black/ 77 >=60 mL/min/BSA 2020 11:23 AM CDT DTL Comment: ----ADDITIONAL INFORMATION---- Estimated GFR calculated using the 2009 CKD_EPI creatinine equation. Specimen Anatomical Collection Method Collection Time Receive d Time (Source) Location / / Volume Laterality Blood (Blood, 05/17/2021 10:22 05/17/2021 Venous) AM CDT 11:02 AM CDT Mikhail Mcfadden M.D. LAB BLOOD ADD-ON Performing Organization Address City/State/ZIP Code Phon e Number [facility] - [address] [place], [place] [address] [facility] [place] [address] [facility] [address] (ABNORMAL) CBC with Differential, Blood (05/17/2021 10:22 AM CDT) Patholo gist Method Time Signature Hemoglobin 14.3 13.2 - 05/17/2021 DTL 16.6 g/dL 10:51 AM CDT Hematocrit 43.3 38.3 - 05/17/2021 DTL 48.6 % 10:51 AM CDT Erythrocytes 4.29 (L) 4.35 - 05/17/2021 DTL 5.65 10:51 AM CDT x10(12)/L MCV 100.9 (H) 78.2 - 05/17/2021 DTL 97.9 fL 10:51 AM CDT RBC Distrib Width 12.6 11.8 - 05/17/2021 DTL 14.5 % 10:51 AM CDT Platelet Count 202 135 - 317 05/17/2021 DTL x10(9)/L 10:51 AM CDT Leukocytes 5.4 3.4 - 9.6 05/17/2021 DTL x10(9)/L 10:51 AM CDT Neutrophils 2.74 1.56 - 05/17/2021 DTL 6.45 10:51 AM CDT x10(9)/L Lymphocytes 1.53 0.95 - 05/17/2021 DTL 3.07 10:51 AM CDT x10(9)/L Monocytes 0.89 (H) 0.26 - 05/17/2021 DTL 0.81 10:51 AM CDT x10(9)/L Eosinophils 0.20 0.03 - 05/17/2021 DTL 0.48 10:51 AM CDT x10(9)/L Basophils 0.03 0.01 - 05/17/2021 DTL 0.08 10:51 AM CDT x10(9)/L Specimen Anatomical Collection Method Collection Time Receive d Time (Source) Location / / Volume Laterality Blood (Blood, 05/17/2021 10:22 05/17/2021 Venous) AM CDT 10:44 AM CDT Mikhail Mcfadden M.D. LAB BLOOD ADD-ON Performing Organization Address City/State/ZIP Code Phon e Number [facility] - [address] [place], [place] [address] [facility] [place] [address] [facility] [address] documented in this encounter Visit Diagnoses Diagnosis Carcinoid Tumor Malignant (HCC) Abnormal Echocardiogram documented in this encounter
--- OUTSIDE RECORDS SUMMARY | 2022-06-06 12:12 | XMS_ITS | Encounter Summary ---
:1945 Author Organization [facility] Address [address] [place] [address] Care Team Providers Name Role Phone Unavailable Primary Care Provider Unavailable Reason for Visit Reason Comments Intake Assessment Encounter Details Date Type Department Care Team Description 10/10/2021 Clinical Communication Department of Mikhail Mcfadden In take Assessment Oncology in [place], [address] [place] [address] [address] [facility] [address] [place], [place] [phone] [address] (Work) [phone] Social History Tobacco Use Types Packs/Day Years [...] or relatives? How often do you attend advent or More than 4 times per year 09/30/2019 christianity services? Do you belong to any clubs or Yes 09/30/2019 organizations such as advent groups, unions, fraternal or athletic groups, or [...] have completed or the highest Darrin, MEd, GROUP DYNAMICS INSTRUCTOR, BERTHA) degree you have received? Sex Assigned at Date Recorded Not on file documented as of this encounter Plan of Treatment Not on filedocumented as of this encounter Visit Diagnoses Not on filedocumented in this encounter Care Teams Processor Inspector Relationship Specialty Start Date End Date [facility] 05/22/[address] [place] [address] documented as of this encounter
--- OUTSIDE RECORDS SUMMARY | 2022-06-06 12:12 | XMS_ITS | Encounter Summary ---
:1945 Author Organization [facility] Address [address] [place] [address] Care Team Providers Name Role Phone Unavailable Primary Care Provider Unavailable Reason for Referral MRI/CAT/PET Scan (Routine) - Closed Specialty Diagnoses / Procedures Referred By Contact Refer red To Contact Radiology Diagnoses Carcinoid Tumor Malignant (HCC) Abnormal Echocardiogram Mikhail Mcfadden M.D. [facility] Procedures MR Abdomen without and with IV Contrast [address] [place] [address] Referral ID Status Reason Start Date Expiration Date Visits Requ ested Visits Authorized [id number] Closed 01/01/2021 01/01/2022 1 1 Reason for Visit MRI/CAT/PET Scan (Routine) - Closed Specialty Diagnoses / Procedures Referred By Contact Refer red To Contact Radiology Diagnoses Carcinoid Tumor Malignant (HCC) Abnormal Echocardiogram Mikhail Mcfadden M.D. [facility] Procedures MR Abdomen without and with IV Contrast [address] [place] [address] Referral ID Status Reason Start Date Expiration Date Visits Requ ested Visits Authorized [id number] Closed 01/01/2021 01/01/2022 1 1 Encounter Details Date Type Department Care Team Description 05/17/2021 Hospital Encounter Department of Mikhail Mcfadden oid Tumor Malignant (HCC); Radiology, Lurdes Julien M.D. Abnormal Echocardiogram Building, in [address] [facility] [address] [address] [facility] [phone] [place], [place] (Work) [address] [phone] Social History Tobacco Use Types Packs/Day Years [...] or relatives? How often do you attend jewish or More than 4 times per year 09/30/2019 sabianist services? Do you belong to any clubs or Yes 09/30/2019 organizations such as jewish groups, unions, fraternal or athletic groups, or [...] have completed or the highest Darrin, MEd, STRATEGIC PROCUREMENT MANAGER, BERTHA) degree you have received? Sex [...] Name Priority Date/Time Associated Diagnosis Comme nts MR ABDOMEN RAD - Routine 05/17/2021 1:37 Carcinoid Tumor Results for WITHOUT AND WITH (most inpatients PM CDT Malignant (HCC ) this procedure IV CONTRAST and all Abnormal are in the outpatients) Echocardiogram results section. documented in this encounter Results MR Abdomen without and with IV Contrast (05/17/2021 1:37 PM CDT) Anatomical Region Laterality Modality Abdomen, Abdominal RST LOS, Abdominal ARZ LOS, N/A Magnetic Resonance Abdominal FLA LOS Specimen (Source) Anatomical Collection Method Collection Time Re ceived Time Location / / Volume Laterality 05/17/2021 1:52 PM CDT Impressions 05/17/2021 5:48 PM CDT Exam appears similar to 07/23/2020, with slight increase in apparent size of some of the hepatic met astases and left retroperitoneal lymph nodes since 12/28/2020. 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 Narrative 05/17/2021 5:48 PM CDT EXAM: ??MR ABDOMEN WITHOUT AND WITH IV CONTRAST COMPARISON: ??MR abdomen 12/28/2020. FINDINGS: ?? Multiple small hepatic metastases, with number best appreciated on diffusion-weighted series 6 and size bes t appreciated on T2-weighted series 4. They do not appear significantly differe nt than on 07/23/2020, with the largest again located in segment 6 measuring 18 mm (series 4, image 24). Some have slightly increased in size since 021. Para-aortic lymphadenopathy also appears similar to 07/23/2020, having slightly increased in size since 12/28/2020 with the largest measuring 11 mm in short axis (series 4, image 36). Unchanged mesenteric lymphadenopathy, th e largest a 3.8 cm conglomerate mesenteric mass ( and ). Multiple bony metastases involving the s ternum, spine, and ribs. Hepatic cysts. Cholelithiasis. Pancreati c atrophy. Multiple tiny cystic lesions in the pancreas, likely side branch IPMN s, measure up to about 0.6 cm. Bilateral renal cysts. Procedure Note Stephen Elmore M.D., Ph.D. - 1 EXAM: MR ABDOMEN WITHOUT AND WITH IV CON TRAST COMPARISON: MR abdomen 12/28/2020. FINDINGS: Multiple small hepatic metastases, with number best appreciated on diffusion-weighted series 6 and size bes t appreciated on T2-weighted series 4. They do not appear significantly differe nt than on 07/23/2020, with the largest again located in segment 6 measuring 18 mm (series 4, image 24). Some have slightly increased in size since 021. Para-aortic lymphadenopathy also appears similar to 07/23/2020, having slightly increased in size since 12/28/2020 with the largest measuring 11 mm in short axis (series 4, image 36). Unchanged mesenteric lymphadenopathy, th e largest a 3.8 cm conglomerate mesenteric mass ( and ). Multiple bony metastases involving the s ternum, spine, and ribs. Hepatic cysts. Cholelithiasis. Pancreati c atrophy. Multiple tiny cystic lesions in the pancreas, likely side branch IPMN s, measure up to about 0.6 cm. Bilateral renal cysts. IMPRESSION: Exam appears similar to 07/23/2020, with slight increase in apparent size of some of the hepatic met astases and left retroperitoneal lymph nodes since 12/28/2020. 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 Mikhail MONTOYA MRI PROCEDURES documented in this encounter Visit Diagnoses Diagnosis Carcinoid Tumor Malignant (HCC) Abnormal Echocardiogram documented in this encounter Administered Medications Inactive Administered Medications - up to 3 most recent administrations Medication Order MAR Action Action Date Dose Rate Site gadobutrol injection 0.01-30 mL Given 05/17/2021 1:23 PM CDT 10 mL (GADAVIST) 0.01-30 mL, intravenous, Once in imaging, contrast, Starting on Thu05/17/21 at 1210, For 1 dose, Imaging Protocol Orders, Dose per Radiant Medication Guidelines Intrathecal doses greater than 0.25 mL not recommended. sodium chloride (PF) 0.9 % injection 1-1 00 mL Given 05/17/2021 1:23 PM CDT 40 mL 1-100 mL, intravenous, Once, On Thu05/17/21 at 1215, For 1 dose, Imaging Protocol Orders documented in this encounter
--- OUTSIDE RECORDS SUMMARY | 2022-06-06 12:12 | XMS_ITS | Encounter Summary ---
:1945 Author Organization [facility] Address [address] [place] [address] Care Team Providers Name Role Phone Unavailable Primary Care Provider Unavailable Reason for Referral MRI/CAT/PET Scan (Routine) - Closed Specialty Diagnoses / Procedures Referred By Contact Refer red To Contact Radiology Diagnoses Carcinoid Tumor Malignant (HCC) Mikhail Mcfadden M.D. [facility] Procedures MR Abdomen without and with IV Contrast [address] [place] [phone] Referral ID Status Reason Start Date Expiration Date Visits Requ ested Visits Authorized [id number] Closed 02/27/2020 02/26/2021 1 1 T LINE FEEDER Reason for Visit MRI/CAT/PET Scan (Routine) - Closed Specialty Diagnoses / Procedures Referred By Contact Refer red To Contact Radiology Diagnoses Carcinoid Tumor Malignant (HCC) Mikhail Mcfadden M.D. [facility] Procedures MR Abdomen without and with IV Contrast [address] [place] [phone] Referral ID Status Reason Start Date Expiration Date Visits Requ ested Visits Authorized [id number] Closed 02/27/2020 02/26/2021 1 1 Encounter Details Date Type Department Care Team Description 07/23/2020 Hospital Encounter Department of Mikhail Mcfadden Tumor Radiology, Lurdes Julien M.D. Malignant (HCC) Building, in [address] [place] [address] [address] [facility] [address] [place], [place] [phone] (Work) [phone] Social History Tobacco Use Types Packs/Day Years [...] or relatives? How often do you attend uatsdin or More than 4 times per year 09/30/2019 muslim services? Do you belong to any clubs or Yes 09/30/2019 organizations such as uatsdin groups, unions, fraternal or athletic groups, or [...] have completed or the highest Darrin, MEd, GASKET NOTCHER, BERTHA) degree you have received? Sex Assigned [...] 01/11/2020 tablet documented as of this encounter Nursing Notes Luke Junior R.N. - 07/23/2020 3:45 PM CST A review of the patients current medications was completed under the context of radiology care priorto contrast/medication administration. T LINE FEEDER documented in this encounter Plan of Treatment Not on filedocumented as of this encounter Procedures Procedure Name Priority Date/Time Associated Comments Diagnosis MR ABDOMEN RAD - Routine 07/23/2020 4:56 Carcinoid Tumor Results for this WITHOUT AND WITH (most inpatients PM PRINT LINE FEEDER Malignant (HCC) proc edure are in IV CONTRAST and all the results outpatients) section. documented in this encounter Results MR Abdomen without and with IV Contrast (07/23/2020 4:56 PM PRINT LINE FEEDER) Anatomical Region Laterality Modality Abdomen, Abdominal RST LOS, Abdominal ARZ LOS, N/A Magnetic Resonance Abdominal FLA LOS Specimen (Source) Anatomical Collection Method Collection Time Re ceived Time Location / / Volume Laterality 07/24/2020 8:05 AM PRINT LINE FEEDER Impressions 07/24/2020 8:22 AM PRINT LINE FEEDER Hepatic metastases are stable to slightly decreased in size since 02/27/2020. Metastatic adenopathy and bon y metastases are all stable. No new or enlarging metastatic disease identified in the abdomen. Narrative 07/24/2020 8:22 AM PRINT LINE FEEDER EXAM: ??MR ABDOMEN WITHOUT AND WITH IV CONTRAST COMPARISON: ??MRI 02/27/2020 FINDINGS: ??Multiple very tiny metastase s in the liver are stable to minimally decreased in size since the prior exam. These are best seen on diffusion-weighted images. For example t he largest lesion now measures 16 mm in diameter (series 4 image 83; series 8 im age 60) previously 17 mm. No new metastases in the liver. Stable hepatic cysts. The enlarged retroperitoneal, mesenteric and right retrocrural lymph nodes are stable including the dominant marychuy mass in the mesentery (series 10 image 253). No new adenopathy in the abdomen. Innumerable bony metastases evident in t he spine are stable. Right renal cysts are unchanged. Choleli thiasis. Atrophy of the pancreatic parenchyma. Stable scattered tiny cystic lesions in the pancreas likely side branch IPMNs. The spleen and adrenal gla nds are normal. Procedure Note Felipe Valentine M.D. - 07/24/2020Form atting of this note might be different from the original. EXAM: MR ABDOMEN WITHOUT AND WITH IV CON TRAST COMPARISON: MRI 02/27/2020 FINDINGS: Multiple very tiny metastases in the liver are stable to minimally decreased in size since the prior exam. These are best seen on diffusion-weighted images. For example t he largest lesion now measures 16 mm in diameter (series 4 image 83; series 8 im age 60) previously 17 mm. No new metastases in the liver. Stable hepatic cysts. The enlarged retroperitoneal, mesenteric and right retrocrural lymph nodes are stable including the dominant marychuy mass in the mesentery (series 10 image 253). No new adenopathy in the abdomen. Innumerable bony metastases evident in t he spine are stable. Right renal cysts are unchanged. Choleli thiasis. Atrophy of the pancreatic parenchyma. Stable scattered tiny cystic lesions in the pancreas likely side branch IPMNs. The spleen and adrenal gla nds are normal. IMPRESSION: Hepatic metastases are stable to slightl y decreased in size since 02/27/2020. Metastatic adenopathy and bon y metastases are all stable. No new or enlarging metastatic disease identified in the abdomen. Mikhail MONTOYA MRI PROCEDURES documented in this encounter Visit Diagnoses Diagnosis Carcinoid Tumor Malignant (HCC) documented in this encounter Administered Medications Inactive Administered Medications - up to 3 most recent administrations Medication Order MAR Action Action Date Dose Rate Site gadobutrol injection 0.01-30 mL Given 07/23/2020 4:44 PM PRINT LINE FEEDER 10 mL (GADAVIST) 0.01-30 mL, intravenous, Once in imaging, contrast, Starting on Thu07/23/20 at 1530, For 1 dose, Imaging Protocol Orders, Dose per Radiant Medication Guidelines sodium chloride (PF) 0.9 % injection 1-1 00 mL Given 07/23/2020 4:44 PM PRINT LINE FEEDER 40 mL 1-100 mL, intravenous, Once, On Thu07/23/20 at 1545, For 1 dose, Imaging Protocol Orders documented in this encounter
--- OUTSIDE RECORDS SUMMARY | 2022-06-06 12:12 | XMS_ITS | Encounter Summary ---
:1945 Author Organization [facility] Address [address] [place] [address] Care Team Providers Name Role Phone Unavailable Primary Care Provider Unavailable Reason for Referral MRI/CAT/PET Scan (Routine) - Closed Specialty Diagnoses / Procedures Referred By Contact Refer red To Contact Radiology Diagnoses Carcinoid Tumor Malignant (HCC) Abnormal Echocardiogram Mikhail Mcfadden M.D. [facility] Procedures CT Chest without IV Contrast CT Chest with IV Contrast [address] [place], [place] [phone] Referral ID Status Reason Start Date Expiration Date Visits Requ ested Visits Authorized [id number] Closed 01/01/2021 01/01/2022 1 1 Outpatient (Routine) - Closed Specialty Diagnoses / Procedures Referred By Contact Refer red To Contact Oncology Mikhail Mcfadden M. D. [facility] [address] [place] [address] Referral ID Status Reason Start Date Expiration Date Visits Requ ested Visits Authorized [id number] Closed 01/01/2021 01/01/2022 1 1 MRI/CAT/PET Scan (Routine) - Closed Specialty Diagnoses / Procedures Referred By Contact Refer red To Contact Radiology Diagnoses Carcinoid Tumor Malignant (HCC) Abnormal Echocardiogram Mikhail Mcfadden M.D. [facility] Procedures MR Abdomen without and with IV Contrast [address] [place] [address] Referral ID Status Reason Start Date Expiration Date Visits Requ ested Visits Authorized [id number] Closed 01/01/2021 01/01/2022 1 1 Reason for Visit Outpatient (Routine) - Closed Specialty Diagnoses / Procedures Referred By Contact Refer red To Contact Oncology Mikhail Mcfadden M. D. [facility] [address] [place] [address] Referral ID Status Reason Start Date Expiration Date Visits Requ ested Visits Authorized [id number] Closed 07/24/2020 07/24/2021 1 1 Encounter Details Date Type Department Care Team Description 01/01/2021 Office Visit Department Mikhail Ruano Tu mor Malignant (HCC) (Primary Dx); Oncology enma Julien M.D. Abnormal Echocardiogram [place], [place] [address] [facility] [address] [place] [phone] Social History Tobacco Use Types Packs/Day Years [...] or relatives? How often do you attend bahai or More than 4 times per year 09/30/2019 rastafarian services? Do you belong to any clubs or Yes 09/30/2019 organizations such as bahai groups, unions, fraternal or athletic groups, or [...] have completed or the highest Darrin, MEd, ADMINISTRATIVE AND PROGRAM SPECIALIST, BERTHA) degree you have received? Sex Assigned at Date Recorded Not on file documented as of this encounter Last Filed Vital Signs Vital Sign Reading Time Taken Comments Blood Pressure 115/72 01/01/2021 8:47 AM CDT Pulse 69 01/01/2021 8:47 AM CDT Temperature 36.5 ??C (97.7 ??F) 01/01/2021 8:47 AM CDT Respiratory Rate 16 01/01/2021 8:47 AM CDT Oxygen Saturation 97% 01/01/2021 8:47 AM CDT Inhaled Oxygen Concentration - - Weight 99.9 kg (220 lb 3.8 oz) 01/01/2021 8:47 AM CDT Height 179.6 cm (5' 10.71) 01/01/2021 8:47 AM CDT Body Mass Index 30.97 01/01/2021 8:47 AM CDT documented in this encounter Progress Notes Mikhail Mcfadden M.D. - 01/01/2021 8:30 AM CDT Referring Provider: Mikhail Mcfadden M.D. [address] [place] [phone] Primary oncologist: Dr. Aldridge Staffing oncologist: Dr. [...] high- intensity focused ultrasound in 2007 (in [place]) October 27, 2008: NET diagnosed during workup prostate cancer with rising PSA. At that time, a CT scan showed a 2.5- x 2.5- x 1.8-cm mesenteric mass anteriorly to the aortic bifurcation. 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 Continued observation recommended. February 08, 2014: Salvage prostatectomy and bilateral pelvic LN dissection ([place] 3 + 4, extraprostatic extension focally present, [...] improved. October 11, 2019: Initial evaluation at [facility]. ?? Review of outside DOTATATE scan (10/07/2019) [...] [facility] He rarely experiences gnawing abdominal pain and diarrhea; when he does, symptoms are limited to the morning. Most days, he has 1-2 bowel movements per day. He has no bony pain. He denies flushing, palpitations, dyspnea, and chest discomfort. His weight is stable. He has plantar fasciitis, which has limited his walking regimen (usually several miles per day). He is in PT with hopes of being better by biking season. He did have COVID in September. He is now vaccinated. Review of systems: All other systems negative [...] level. 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 He is to [place] with no children. He hopes to take up photography. He is a never smoker. Family History: Per EMR OBJECTIVE Vitals: 01/01/21 0847 BP: 115/72 Patient Position: Sitting Pulse: 69 Temp: 36.5 ??C Resp: 16 Height: 179.6 cm Weight: 99.9 kg SpO2: 97% TempSrc: Tympanic Body surface area is 2.23 meters squared. Physical exam: General: No acute distress. ECOG 0. Independent [id number]. Normal gait speed. 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 Villeda in follow-up. He continues to be asymptomatic from his neuroendocrine tumor. Today's imaging shows ongoing disease responsiveness with decrease in size of multipleliver metastases and stability other locations. I recommend no change in therapy today. We will follo w his disease with MRI liver and CT chest every 4 months. Repeat TTE every couple of years (next [id number]). He is receiving octreotide LAR 20 mg which can be increased to 30 mg every 4 weeks, if needed, on the basis of symptoms. If alternative therapy is needed in the future, consider can be given to PRRT(NETTER-3) or everolimus (RADIANT-4). PATIENT EDUCATION Explained the content in detail [...] Name Type Priority Associated Diagnoses Order S [facility] Oncology office Outpatient Referral Routine Expec rosalba: visit (clinic) 04/30/2021, Expires: 01/01/2024 documented as of this encounter Results MR [...] Some have slightly increased in size since . Para-aortic lymphadenopathy also appears similar to 07/23/2020, [...] and osseous metastases. Mikhail MONTOYA MRI PROCEDURES CT Chest without IV Contrast (05/17/2021 10:56 AM CDT) Anatomical Region Laterality Modality Chest, Thoracic RST LOS, Thoracic ARZ N/A Co mputed Tomography, Computed LOS, Thoracic FLA LOS Tomography Specimen (Source) Anatomical Collection Method Collection Time Re ceived Time Location / / Volume Laterality 05/17/2021 12:00 PM CDT Impressions 05/17/2021 12:[address] evidence for metastatic disease to the chest is identified. Narrative 05/17/2021 12:18 PM CDT EXAM: CT CHEST WITHOUT IV CONTRAST COMPARISON: 12/28/2020, 07/23/2020 and o ther exams back to 04/14/2012. FINDINGS: The ill-defined groundglass opacity in t he right upper lobe laterally appears similar to 12/28/2020. This is probably due to some focal inflammation/infection and/or fibrosis. Some slight fibrosis in the right paraspinal region is also unchanged. There are few noncalcified mi cronodules that appear stable. Slight apical scarring. No new or enlarging sof t tissue density pulmonary nodules, masses, or adenopathy to specifically gonzalez ggest primary pulmonary malignancy or metastatic disease in the chest are iden tified. Regional vascular calcifications, includ ing the coronary arteries. Probable hepatic cyst. Otherwise the vis ualized upper abdomen appears negative. 3D maximum intensity projection (MIP) im ages were created on a dependent workstation as ordered by the treating p rovider and reviewed by the radiologist to increase sensitivity for detection of pulmonary nodules. Procedure Note Noé Duarte M.D. - 05/17/2021Fo rmatting of this note might be different from the original. EXAM: CT CHEST WITHOUT IV CONTRAST COMPARISON: 12/28/2020, 07/23/2020 and o ther exams back to 04/14/2012. FINDINGS: The ill-defined groundglass opacity in t he right upper lobe laterally appears similar to 12/28/2020. This is probably due to some focal inflammation/infection and/or fibrosis. Some slight fibrosis in the right paraspinal region is also unchanged. There are few noncalcified mi cronodules that appear stable. Slight apical scarring. No new or enlarging sof t tissue density pulmonary nodules, masses, or adenopathy to specifically gonzalez ggest primary pulmonary malignancy or metastatic disease in the chest are iden tified. Regional vascular calcifications, includ ing the coronary arteries. Probable hepatic cyst. Otherwise the vis ualized upper abdomen appears negative. 3D maximum intensity projection (MIP) im ages were created on a dependent workstation as ordered by the treating p rovider and reviewed by the radiologist to increase sensitivity for detection of pulmonary nodules. IMPRESSION: No CT evidence for metastatic disease to the chest is identified. Mikhail S Bogdan M.D. IMG CT PROCEDURES Creatinine with Estimated GFR (05/17/2021 10:22 AM CDT) P athologist Signature Creatinine 1.08 0.74 - 05/17/2021 DTL 1.35 mg/dL 11:23 AM CDT eGFR-Non 66 >=60 05/17/2021 DTL Black/ mL/min/BSA 11:23 AM CDT [place] Comment: ----ADDITIONAL INFORMATION---- Estimated GFR calculated using [...] Organization Address City/State/ZIP Code Phon e Number [facility] - [address] [place], [place] [address] [place] [address] [facility] [address] [facility] (ABNORMAL) CBC with Differential, Blood (05/17/2021 10:22 [...] Organization Address City/State/ZIP Code Phon e Number 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
--- OUTSIDE RECORDS SUMMARY | 2022-06-06 12:12 | XMS_ITS | Encounter Summary ---
:1945 Author Organization [facility] Address [address] [place] [address] Care Team Providers Name Role Phone Unavailable Primary Care Provider Unavailable Reason for Referral MRI/CAT/PET Scan (Routine) - Closed Specialty Diagnoses / Procedures Referred By Contact Refer red To Contact Radiology Diagnoses Carcinoid Tumor Malignant (HCC) Mikhail Mcfadden M.D. [facility] Procedures CT Chest without IV Contrast [address] [place] [phone] Referral ID Status Reason Start Date Expiration Date Visits Requ ested Visits Authorized [id number] Closed 02/27/2020 02/26/2021 1 1 INSTALLER Reason for Visit MRI/CAT/PET Scan (Routine) - Closed Specialty Diagnoses / Procedures Referred By Contact Refer red To Contact Radiology Diagnoses Carcinoid Tumor Malignant (HCC) Mikhail Mcfadden M.D. [facility] Procedures CT Chest without IV Contrast [address] [place] [phone] Referral ID Status Reason Start Date Expiration Date Visits Requ ested Visits Authorized [id number] Closed 02/27/2020 02/26/2021 1 1 Encounter Details Date Type Department Care Team Description 07/23/2020 Hospital Encounter Department of Mikhail Mcfadden Tumor Radiology, Lurdes Julien M.D. Malignant (HCC) Building, in [address] [place] [address] [address] [facility] [address] [place], [place] [phone] (Work) [phone] Social History Tobacco Use Types Packs/Day Years [...] or relatives? How often do you attend rastafarian or More than 4 times per year 09/30/2019 sikhism services? Do you belong to any clubs or Yes 09/30/2019 organizations such as rastafarian groups, unions, fraternal or athletic groups, or [...] have completed or the highest Darrin, MEd, BUSINESS OBJECTS DEVELOPER, BERTHA) degree you have received? Sex Assigned [...] Diagnosis CT CHEST WITHOUT RAD - Routine 07/23/2020 1:49 Carcinoid Tumor Resu lts for this IV CONTRAST (most inpatients PM TIRE INSTALLER Malignant (HCC) procedur e are in and all the results outpatients) section. documented in this encounter Results CT Chest without IV Contrast (07/23/2020 1:49 PM TIRE INSTALLER) Anatomical Region Laterality Modality Chest, Thoracic RST LOS, Thoracic ARZ N/A Co mputed Tomography, Computed LOS, Thoracic FLA LOS Tomography Specimen (Source) Anatomical Collection Method Collection Time Re ceived Time Location / / Volume Laterality 07/23/2020 2:45 PM TIRE INSTALLER Impressions 07/23/2020 2:56 PM TIRE INSTALLER 1. Subtle lytic and sclerotic lesions throughout skeleton, compatible with metastatic disease. 2. Azygoesophageal, internal mammary and retrocrural nodes that have enlarged are also concerning for metastatic disea se. Narrative 07/23/2020 2:56 PM TIRE INSTALLER EXAM: CT CHEST WITHOUT IV CONTRAST COMPARISON: 02/27/2020, 08/26/2019 and o ther exams back to 04/14/2012 FINDINGS: There are extensive subtle lytic and sc lerotic lesions throughout the skeleton that are better identified on the outsid e PET/CT 10/07/2019, compatible with bony metastases. Enlarged nodes in the a zygoesophageal region ( series 3 image 243), left internal mammary (image 241) and retrocrural space (image 540) that are avid on the recent PET/CT are also l ikely due to metastases and have increased in size since 02/27/2020 There are few elongated/flattened morpho logy subpleural nodules that should be benign subpleural/intrapulmonary lymph n odes. ??Calcified granuloma right lower lobe. No new or enlarging lung nodules. Minimal nonspecific fibrosis in both sari g bases with borderline bronchiolectasis in the basilar segments of the right low er lobe. Slight apical scarring. Stable thyroid nodularity likely due to benign multinodular goiter. Regional vascular calcifications, includ ing the coronary arteries. 3D maximum intensity projection (MIP) im ages were created on a dependent workstation as ordered by the treating milagros louie and reviewed by the radiologist to increase sensitivity for detection of pulmonary nodules. Procedure Note Noé Duarte M.D. - 07/23/2020Fo rmatting of this note might be different from the original. EXAM: CT CHEST WITHOUT IV CONTRAST COMPARISON: 02/27/2020, 08/26/2019 and o ther exams back to 04/14/2012 FINDINGS: There are extensive subtle lytic and sc lerotic lesions throughout the skeleton that are better identified on the outsid e PET/CT 10/07/2019, compatible with bony metastases. Enlarged nodes in the a zygoesophageal region ( series 3 image 243), left internal mammary (image 241) and retrocrural space (image 540) that are avid on the recent PET/CT are also l ikely due to metastases and have increased in size since 02/27/2020 There are few elongated/flattened morpho logy subpleural nodules that should be benign subpleural/intrapulmonary lymph n odes. Calcified granuloma right lower lobe. No new or enlarging lung nodules. Minimal nonspecific fibrosis in both sari g bases with borderline bronchiolectasis in the basilar segments of the right low er lobe. Slight apical scarring. Stable thyroid nodularity likely due to benign multinodular goiter. Regional vascular calcifications, includ ing the coronary arteries. 3D maximum intensity projection (MIP) im ages were created on a dependent workstation as ordered by the treating p rovidanilo and reviewed by the radiologist to increase sensitivity for detection of pulmonary nodules. IMPRESSION: 1. Subtle lytic and sclerotic lesions th roughout skeleton, compatible with metastatic disease. 2. Azygoesophageal, internal mammary and retrocrural nodes that have enlarged are also concerning for metastatic disea se. Mikhail LEEG CT PROCEDURES documented in this encounter Visit Diagnoses Diagnosis Carcinoid Tumor Malignant (HCC) documented in this encounter
--- OUTSIDE RECORDS SUMMARY | 2022-06-06 12:12 | XMS_ITS | Encounter Summary ---
:1945 Author Organization [facility] Address [address] [place] [address] Care Team Providers Name Role Phone Unavailable Primary Care Provider Unavailable Reason for Referral MRI/CAT/PET Scan (Routine) - Closed Specialty Diagnoses / Procedures Referred By Contact Refer red To Contact Radiology Diagnoses Carcinoid Tumor Malignant (HCC) Abnormal Echocardiogram Mikhail Mcfadden M.D. [facility] Procedures CT Chest without IV Contrast CT Chest with IV Contrast [address] [place] [phone] Referral ID Status Reason Start Date Expiration Date Visits Requ ested Visits Authorized [id number] Closed 01/01/2021 01/01/2022 1 1 Reason for Visit MRI/CAT/PET Scan (Routine) - Closed Specialty Diagnoses / Procedures Referred By Contact Refer red To Contact Radiology Diagnoses Carcinoid Tumor Malignant (HCC) Abnormal Echocardiogram Mikhail Mcfadden M.D. [facility] Procedures CT Chest without IV Contrast CT Chest with IV Contrast [address] [place] [phone] Referral ID Status Reason Start Date Expiration Date Visits Requ ested Visits Authorized [id number] Closed 01/01/2021 01/01/2022 1 1 Encounter Details Date Type Department Care Team Description 05/17/2021 Hospital Encounter Department of Mikhail Mcfadden oid Tumor Malignant (HCC); Radiology, Lurdes Julien M.D. Abnormal Echocardiogram Building, in [address] [place] [phone] [place] [phone] Social History Tobacco Use Types Packs/Day Years [...] or relatives? How often do you attend lutheran or More than 4 times per year 09/30/2019 quaker services? Do you belong to any clubs or Yes 09/30/2019 organizations such as lutheran groups, unions, fraternal or athletic groups, or [...] have completed or the highest Darrin, MEd, ODD SHOE EXAMINER, BERTHA) degree you have received? Sex Assigned [...] Name Priority Date/Time Associated Diagnosis Comme nts CT CHEST WITHOUT RAD - Routine 05/17/2021 10:56 Carcinoid Tumor Res ults for IV CONTRAST (most inpatients AM CDT Malignant (HCC) this procedure and all Abnormal are in the outpatients) Echocardiogram results section. documented in this encounter Results CT Chest without IV Contrast (05/17/2021 10:56 [...] disease to the chest is identified. Mikhail Mcfadden M.D. IMO[facility] CT PROCEDURES documented in this encounter Visit Diagnoses Diagnosis Carcinoid Tumor Malignant (HCC) Abnormal Echocardiogram documented in this encounter
--- OUTSIDE RECORDS SUMMARY | 2022-06-06 12:12 | XMS_ITS | Encounter Summary ---
:1945 Author Organization [facility] Address [address] [place] [address] Care Team Providers Name Role Phone Unavailable Primary Care Provider Unavailable Encounter Details Date Type Department Care Team Description 10/10/2021 Clinical Communication Department of Oncology Mikhail Mcfadden in [place] [address] [address] [facility] [address] [place] [phone] Social History Tobacco Use Types Packs/Day Years [...] or relatives? How often do you attend mandaen or More than 4 times per year 09/30/2019 judaism services? Do you belong to any clubs or Yes 09/30/2019 organizations such as mandaen groups, unions, fraternal or athletic groups, or [...] have completed or the highest Darrin, MEd, DISHWASHING MACHINE OPERATOR, BERTHA) degree you have received? Sex Assigned at Date Recorded Not on file documented as of this encounter Plan of Treatment Not on filedocumented as of this encounter Visit Diagnoses Not on filedocumented in this encounter Care Teams Managing Cognitive Engineer Relationship Specialty Start Date End Date [facility] 05/22/21 [place] [address] documented as of this encounter
--- OUTSIDE RECORDS SUMMARY | 2022-06-06 12:12 | XMS_ITS | Encounter Summary ---
:1945 Author Organization [facility] Address [address] [place] [address] Care Team Providers Name Role Phone Unavailable Primary Care Provider Unavailable Encounter Details Date Type Department Care Team Description 07/23/2020 Hospital Encounter Department of BogdanMikhail Tumor Laboratory Medicine SBobby. Malignant (HCC) and Pathology, [address] [place] [address], in [place], [place] [phone] [place] [address] [place], [place] (Work) [phone] Social History Tobacco Use [...] or relatives? How often do you attend holiness or More than 4 times per year 09/30/2019 zoroastrianism services? Do you belong to any clubs or Yes 09/30/2019 organizations such as holiness groups, unions, fraternal or athletic groups, or [...] have completed or the highest Darrin, MEd, INTERACTIVE MARKETING STRATEGIST, BERTHA) degree you have received? Sex Assigned [...] Date/Time Associated Comments Diagnosis CBC WITH Routine 07/23/2020 1:25 PM Carcinoid Tumor Result s for this DIFFERENTIAL, B PAINTING MACHINE OPERATOR Malignant (HCC) procedure are in the results section. CREATININE WITH Routine 07/23/2020 1:25 PM Carcinoid Tumor Res ults for this EGFR, S/P PAINTING MACHINE OPERATOR Malignant (HCC) procedure ar e in the results section. documented in this encounter Results Creatinine with Estimated GFR (07/23/2020 1:25 PM PAINTING MACHINE OPERATOR) P athologist Signature Creatinine 1.09 0.74 - 07/23/2020 DTL 1.35 mg/dL 2:19 PM PAINTING MACHINE OPERATOR eGFR-Non 66 >=60 07/23/2020 DTL Black/ mL/min/BSA 2:19 PM PAINTING MACHINE OPERATOR Bahamian Comment: ----ADDITIONAL INFORMATION---- Estimated GFR calculated using the 2009 CKD_EPI creatinine equation. eGFR-Black/ 76 >=60 mL/min/BSA 2019 2:19 PM PAINTING MACHINE OPERATOR DTL Comment: ----ADDITIONAL INFORMATION---- Estimated GFR calculated using the 2009 CKD_EPI creatinine equation. Specimen Anatomical Collection Method Collection Time Receive d Time (Source) Location / / Volume Laterality Blood (Blood, 07/23/2020 1:25 PM 07/23/20 20 2:02 Venous) PAINTING MACHINE OPERATOR PM PAINTING MACHINE OPERATOR Mikhail Mcfadden M.D. LAB BLOOD ADD-ON Performing Organization Address City/State/ZIP Code Phon e Number [facility] - [address] [place], [place] [address] [facility] [place] [address] [facility] [address] (ABNORMAL) CBC with Differential, Blood (07/23/2020 1:25 PM PAINTING MACHINE OPERATOR) Patholo gist Method Time Signature Hemoglobin 13.7 13.2 - 07/23/2020 DTL 16.6 g/dL 1:56 PM PAINTING MACHINE OPERATOR Hematocrit 40.5 38.3 - 07/23/2020 DTL 48.6 % 1:56 PM PAINTING MACHINE OPERATOR Erythrocytes 4.11 (L) 4.35 - 07/23/2020 DTL 5.65 1:56 PM PAINTING MACHINE OPERATOR x10(12)/L MCV 98.5 (H) 78.2 - 07/23/2020 DTL 97.9 fL 1:56 PM PAINTING MACHINE OPERATOR RBC Distrib Width 12.4 11.8 - 07/23/2020 DTL 14.5 % 1:56 PM PAINTING MACHINE OPERATOR Platelet Count 214 135 - 317 07/23/2020 DTL x10(9)/L 1:56 PM PAINTING MACHINE OPERATOR Leukocytes 5.0 3.4 - 9.6 07/23/2020 DTL x10(9)/L 1:56 PM PAINTING MACHINE OPERATOR Neutrophils 2.37 1.56 - 07/23/2020 DTL 6.45 1:56 PM PAINTING MACHINE OPERATOR x10(9)/L Lymphocytes 1.77 0.95 - 07/23/2020 DTL 3.07 1:56 PM PAINTING MACHINE OPERATOR x10(9)/L Monocytes 0.66 0.26 - 07/23/2020 DTL 0.81 1:56 PM PAINTING MACHINE OPERATOR x10(9)/L Eosinophils 0.16 0.03 - 07/23/2020 DTL 0.48 1:56 PM PAINTING MACHINE OPERATOR x10(9)/L Basophils <0.03 0.01 - 07/23/2020 DTL 0.08 1:56 PM PAINTING MACHINE OPERATOR x10(9)/L Specimen Anatomical Collection Method Collection Time Receive d Time (Source) Location / / Volume Laterality Blood (Blood, 07/23/2020 1:25 PM 07/23/20 20 1:49 Venous) PAINTING MACHINE OPERATOR PM PAINTING MACHINE OPERATOR Mikhail Mcfadden M.D. LAB BLOOD ADD-ON Performing Organization Address City/State/ZIP Code Phon e Number [facility] - [address] [place], [place] [address] [facility] [place] [address] [facility] [address] documented in this encounter Visit Diagnoses Diagnosis Carcinoid Tumor Malignant (HCC) documented in this encounter
--- OUTSIDE RECORDS SUMMARY | 2022-06-06 12:12 | XMS_ITS | Encounter Summary ---
:1945 Author Organization [facility] Address [address] [place] [address] Care Team Providers Name Role Phone Unavailable Primary Care Provider Unavailable Reason for Visit Reason Onset Date Comments Outpatient COVID-19 Testing 07/24/2020 Encounter Details Date Type Department Care Team Description 07/24/2020 External Outreach Department of Family Milly Shirley Infection Upper Medicine, [place] [facility], SORT WORKER, Respir atory (Primary [facility] [place], [address] C[address] Dx) Street Professional [address] [place] [address] in [facility] [phone] [address] [phone] [place], [place] (Work) [phone] Social History Tobacco Use Types Packs/Day Years [...] or relatives? How often do you attend congregational or More than 4 times per year 09/30/2019 episcopalian services? Do you belong to any clubs or Yes 09/30/2019 organizations such as congregational groups, unions, fraternal or athletic groups, or [...] have completed or the highest Darrin, MEd, SPECIAL SYSTEMS TECHNICIAN, BERTHA) degree you have received? Sex Assigned at Date Recorded Not on file documented as of this encounter Progress Notes Milly Shirley APRN, C.N.P. - 07/24/2020 10:22 AM CST Encounter created for the drive-through COVID-19 testing. ER BACK TENDER documented in this encounter Plan of Treatment Not on filedocumented as of this encounter Procedures Procedure Name Priority Date/Time Associated Diagnosis Comme nts SARS CORONAVIRUS-2, Routine 07/24/2020 12:09 PM Infection Uppe r Results for this PCR SINGER BACK TENDER Respiratory procedure are i n the results section. documented in this encounter Results SARS Coronavirus-2, PCR Symptomatic (07/24/2020 12:09 PM SINGER BACK TENDER) [facility] gist Method Time Signature SARS Swab, 07/25/2020 DTL Coronavirus-2 Nasopharynx 11:06 PM Source SINGER BACK TENDER SARS Undetected Undetected 07/25/2020 DTL Coronavirus-2 11:06 PM , PCR SINGER BACK TENDER Comment: SARS-CoV-2 RNA absent. This result does not rule out COVID-19 in the patient, as the sensitivity of the test depends o n the timing of the specimen collection and quality of the specimen. Result should be correlated with patient's history and clinical presentat ion. ----ADDITIONAL INFORMATION---- This test was developed and its performa nce characteristics determined by [facility] in a manner co nsistent with CLIA requirements. Independent review by the U.S. Food and Drug Administration is pending. Visit the CDC website: https://www.cdc.gov/coronavirus/ ?? for the most recent guidelines on Wise virus testing. Fact Sheet for Healthcare Providers: (https://www.[employer]/it-mmfil es/ Provider_Fact_Sheet_for_[place]_COVI D-19.pdf) Fact Sheet for Patients: (https://www.Ukash.com/it-mmfil es/ Patient_Fact_Sheet_for_COVID-19.pdf) Specimen Anatomical Collection Method Collection Time Receive d Time (Source) Location / / Volume Laterality Varies 07/24/2020 12:09 07/24/2020 2:47 (Nasopharynx) PM SINGER BACK TENDER PM SINGER BACK TENDER Milly Shirley APRN, C.N.P. LAB MICROBIOLOGY - GENERA L ORDERABLES Performing Organization Address City/State/ZIP Code Phon e Number [facility] - [address] [place], [place] [address] [facility] [place] [address] [facility] [address] documented in this encounter Visit Diagnoses Diagnosis Infection Upper Respiratory - Primary documented in this encounter Additional Health Concerns Infection Onset Date Last Indicated Resolved Time COVID19 Pending 07/24/2020 07/24/2020 07/25/2020 11:07 PM SINGER BACK TENDER documented as of this encounter
--- OUTSIDE RECORDS SUMMARY | 2022-06-06 12:12 | XMS_ITS | Encounter Summary ---
:1945 Author Organization [facility] Address [address] [place] [address] Care Team Providers Name Role Phone Unavailable Primary Care Provider Unavailable Reason for Referral MRI/CAT/PET Scan (Routine) - Closed Specialty Diagnoses / Procedures Referred By Contact Refer red To Contact Radiology Diagnoses Carcinoid Tumor Malignant (HCC) Mikhail Mcfadden M.D. [facility] Procedures MR Abdomen without and with IV Contrast [address] [place] [phone] Referral ID Status Reason Start Date Expiration Date Visits Requ ested Visits Authorized [id number] Closed 07/24/2020 07/24/2021 1 1 Reason for Visit MRI/CAT/PET Scan (Routine) - Closed Specialty Diagnoses / Procedures Referred By Contact Refer red To Contact Radiology Diagnoses Carcinoid Tumor Malignant (HCC) Mikhail Mfcadden M.D. [facility] Procedures MR Abdomen without and with IV Contrast [address] [place] [phone] Referral ID Status Reason Start Date Expiration Date Visits Requ ested Visits Authorized [id number] Closed 07/24/2020 07/24/2021 1 1 Encounter Details Date Type Department Care Team Description 12/28/2020 Hospital Encounter Department of Mikhail Mcfadden Tumor Radiology, Lurdes Julien M.D. Malignant (HCC) Building, in [address] [place] [address] [place] [phone] [place], [place] [phone] (Work) [phone] Social History Tobacco Use Types Packs/Day Years [...] or relatives? How often do you attend hinduism or More than 4 times per year 09/30/2019 latter-day services? Do you belong to any clubs or Yes 09/30/2019 organizations such as hinduism groups, unions, fraternal or athletic groups, or [...] have completed or the highest Darrin, MEd, HYDRAULIC PRESS SERVICER, BERTHA) degree you have received? Sex Assigned [...] Comments Diagnosis MR ABDOMEN RAD - Routine 12/28/2020 12:32 Carcinoid Tumor Results for this WITHOUT AND WITH (most inpatients PM CDT Malignant (HCC) proc edure are in IV CONTRAST and all the results outpatients) section. documented in this encounter Results MR Abdomen without and with IV Contrast (12/28/2020 12:32 PM CDT) Anatomical Region Laterality Modality Abdomen, Abdominal RST LOS, Abdominal ARZ LOS, N/A Magnetic Resonance Abdominal FLA LOS Specimen (Source) Anatomical Collection Method Collection Time Re ceived Time Location / / Volume Laterality 12/28/2020 4:24 PM CDT Impressions 12/28/2020 4:43 PM CDT Decrease in size of some of the small hepatic metastases, and decrease in size of left retroperitoneal adenopathy. Stable dominant mesenteric mass and mesenteric adenopathy. Multiple osseous metastases are unchanged. No new or enlarging metastases are identifi ed. Narrative 12/28/2020 4:43 PM CDT EXAM: ??MR ABDOMEN WITHOUT AND WITH IV CONTRAST COMPARISON: ??07/23/2020 FINDINGS: ??Multiple hepatic metastases are best visualized on DWI (series 5) and T2-weighted imaging (series 6). Decrease in size of an inferior right hepatic lobe lesion, now measuring 13 mm (series 6, image 22) versus 18 mm previously. A 10 mm posterior right lobe lesion (serie s 6, image 11) previously measured 13 mm. A 7 mm lesion at the dome of the taran er (6/4) is unchanged. No new hepatic lesions are identified. 3.8 cm mesenteric mass is unchanged (), and other mesenteric adenopathy (for example series 11 image 97) is unch anged. Mildly decreased size of para-aortic lymphadenopathy. For example a left para-aortic lymph node measures 10 mm short axis diameter (/34) versus 12 mm previously. There are multiple sternal metastases (s eries 6, images 7, 10, 13) and spinal metastases, showing no definite change. A few small hepatic cysts are unchanged. Several tiny pancreatic cysts, consistent with IPMN. Large right renal cyst. Procedure Note Ventura Hernandez M.B., Ch.B. - 12/28/2020 EXAM: MR ABDOMEN WITHOUT AND WITH IV CON TRAST COMPARISON: 07/23/2020 FINDINGS: Multiple hepatic metastases ar e best visualized on DWI (series 5) and T2-weighted imaging (series 6). Decrease in size of an inferior right hepatic lobe lesion, now measuring 13 mm (series 6, image 22) versus 18 mm previously. A 10 mm posterior right lobe lesion (serie s 6, image 11) previously measured 13 mm. A 7 mm lesion at the dome of the taran er (6/4) is unchanged. No new hepatic lesions are identified. 3.8 cm mesenteric mass is unchanged ( 119), and other mesenteric adenopathy (for example series 11 image 97) is unch anged. Mildly decreased size of para-aortic lymphadenopathy. For example a left para-aortic lymph node measures 10 mm short axis diameter () versus 12 mm previously. There are multiple sternal metastases (s eries 6, images 7, 10, 13) and spinal metastases, showing no definite change. A few small hepatic cysts are unchanged. Several tiny pancreatic cysts, consistent with IPMN. Large right renal cyst. IMPRESSION: Decrease in size of some of the small he patic metastases, and decrease in size of left retroperitoneal adenopathy. Stable dominant mesenteric mass and mesenteric adenopathy. Multiple osseous metastases are unchanged. No new or enlarging metastases are identifi ed. Mikhail MONTOYA MRI PROCEDURES documented in this encounter Visit Diagnoses Diagnosis Carcinoid Tumor Malignant (HCC) documented in this encounter Administered Medications Inactive Administered Medications - up to 3 most recent administrations Medication Order MAR Action Action Date Dose Rate Site gadobutrol injection 0.01-30 mL Given 12/28/2020 12:33 PM CDT 10 mL (GADAVIST) 0.01-30 mL, intravenous, Once in imaging, contrast, Starting on Thu12/28/20 at 1113, For 1 dose, Imaging Protocol Orders, Dose per Radiant Medication Guidelines documented in this encounter
--- OUTSIDE RECORDS SUMMARY | 2022-06-06 12:12 | XMS_ITS | Encounter Summary ---
:1945 Author Organization [facility] Address [address] [place] [address] Care Team Providers Name Role Phone Unavailable Primary Care Provider Unavailable Reason for Visit Reason Comments COVID Inquiry Encounter Details Date Type Department Care Team Description 12/12/2020 Clinical Communication Department of Mikhail Mcfadden VIMerced Inquiry Oncology in S, M.D. [place], [place] [address] [facility] [address] [place] [address] [phone] Social History Tobacco Use Types Packs/Day Years [...] or relatives? How often do you attend religion or More than 4 times per year 09/30/2019 mu-ism services? Do you belong to any clubs or Yes 09/30/2019 organizations such as religion groups, unions, fraternal or athletic groups, or [...] have completed or the highest Darrin, MEd, STEEL HANDLER, BERTHA) degree you have received? Sex Assigned at Date Recorded Not on file documented as of this encounter Miscellaneous Notes Telephone Encounter - Milly Bernabe - 12/12/2020 3:18 PM CDT What is the purpose of the call?: Standard Appointment Process Standard Appointment Process Have you tested positive for COVID-19 in the last 20 days OR do you have a pending COVID-19 test because you had symptoms?: No, neither apply What region is the appointment being requested?: Less than 20 days RST, SWWI or SEMN In the past 14 days are any of the following symptoms new to you and not related to an existing health condition?: No symptoms noted Have you tested positive for COVID-19 in the last 90 days?: No, instruct to quarantine. COVID-19 testing is recommended 5-7 days after exposure. (End Screening) In the past 14 days have you had close contact* with a person who has a LABORATORY CONFIRMED case ofCOVID-19?: No exposure noted. Follow local process (End Screening) Testing Recommendation Endpoint Is testing recommended? : Not recommended to test Plan: Endpoint recommendation: Followed regional OTG *Reminder if sending patient for testing in [facility] or [facility], route encounter to the correct testing pool. documented in this encounter Plan of Treatment Not on filedocumented as of this encounter Visit Diagnoses Not on filedocumented in this encounter
--- OUTSIDE RECORDS SUMMARY | 2022-06-06 12:12 | XMS_ITS | Encounter Summary ---
:1945 Author Organization [facility] Address [address] [place] [address] Care Team Providers Name Role Phone Unavailable Primary Care Provider Unavailable Reason for Referral MRI/CAT/PET Scan (Routine) - Closed Specialty Diagnoses / Procedures Referred By Contact Refer red To Contact Radiology Diagnoses Carcinoid Tumor Malignant (HCC) Mikhail Mcfadden M.D. [facility] Procedures CT Chest without IV Contrast CT Chest with IV Contrast [address] [place] [phone] Referral ID Status Reason Start Date Expiration Date Visits Requ ested Visits Authorized [id number] Closed 05/21/2021 05/21/2022 1 1 ONAL GUIDE Reason for Visit MRI/CAT/PET Scan (Routine) - Closed Specialty Diagnoses / Procedures Referred By Contact Refer red To Contact Radiology Diagnoses Carcinoid Tumor Malignant (HCC) Mikhail Mcfadden M.D. [facility] Procedures CT Chest without IV Contrast CT Chest with IV Contrast [address] [place] [phone] Referral ID Status Reason Start Date Expiration Date Visits Requ ested Visits Authorized [id number] Closed 05/21/2021 05/21/2022 1 1 Encounter Details Date Type Department Care Team Description 10/11/2021 Hospital Encounter Department of Mikhail Mcfadden Tumor Radiology, Lurdes Julien M.D. Malignant (HCC) Building, in [address] [place], [place] [address] [place] [phone] [place], [place] [phone] (Work) [phone] Social History Tobacco Use Types Packs/Day Years [...] or relatives? How often do you attend hoahaoism or More than 4 times per year 09/30/2019 pentecostal services? Do you belong to any clubs or Yes 09/30/2019 organizations such as hoahaoism groups, unions, fraternal or athletic groups, or [...] have completed or the highest Darrin, MEd, RADIO OFFICER, BERTHA) degree you have received? Sex Assigned [...] Diagnosis CT CHEST WITHOUT RAD - Routine 10/11/2021 10:25 Carcinoid Tumor Res ults for this IV CONTRAST (most inpatients AM REGIONAL GUIDE Malignant (HCC) procedur e are in and all the results outpatients) section. documented in this encounter Results CT Chest without IV Contrast (10/11/2021 10:25 AM REGIONAL GUIDE) Anatomical Region Laterality Modality Chest, Thoracic RST LOS, Thoracic ARZ N/A Co mputed Tomography, Computed LOS, Thoracic FLA LOS Tomography Specimen (Source) Anatomical Collection Method Collection Time Re ceived Time Location / / Volume Laterality 10/11/2021 10:42 AM REGIONAL GUIDE Impressions 10/11/2021 11:07 AM REGIONAL GUIDE 1. No change in posterior mediastinal and left internal mammary lymphadenopathy. 2. No change in subtle sclerotic bone me tastases. Narrative 10/11/2021 11:07 AM REGIONAL GUIDE EXAM: CT CHEST WITHOUT IV CONTRAST COMPARISON: [...] compared with an earlier outside exam fr om 08/26/2019. Stable posterior mediastinal lymph nodes, the [...] compared with an earlier outside exam fr om 08/26/2019. Stable posterior mediastinal lymph nodes, the [...] tastases. Mikhail Mcfadden M.D. IMG CT PROCEDURES documented in this encounter Visit Diagnoses Diagnosis Carcinoid Tumor Malignant (HCC) documented in this encounter Care Teams Wire Spinner Relationship Specialty Start Date End Date [facility] 05/22/21 [place] [address] documented as of this encounter
--- OUTSIDE RECORDS SUMMARY | 2022-06-06 12:12 | XMS_ITS | Encounter Summary ---
:1945 Author Organization [facility] Address [address] [place] [address] Care Team Providers Name Role Phone Unavailable Primary Care Provider Unavailable Reason for Visit Outpatient (Routine) - Closed Specialty Diagnoses / Procedures Referred By Contact Refer red To Contact Vascular Medicine Yadira Mar, Leonie -CMarciano [place] [address] [place] [address] Referral ID Status Reason Start Date Expiration Date Visits Requ ested Visits Authorized [id number] Closed 10/05/2019 10/04/2020 1 1 Encounter Details Date Type Department Care Team Description 04/10/2020 Office Visit Department of Yadira Mar, Transient I schemic Attack (Primary Dx); Vascular Medicine in P.A.-C. Stroke (HCC); [place], [place] [address] [facility] Atrial Fibrillation Paroxysmal (HCC); [address] [place], [place] Anticoagulant Therapy; [place] [address] Abnormal Echocardiogram; [phone] Carcinoid Tumor Malignant (H CC); Embolus Pulmonary Personal History; [phone] Thrombosis Deep Vein Personal History (Fax) Social History Tobacco Use Types Packs/Day Years [...] or relatives? How often do you attend christian or More than 4 times per year 09/30/2019 yazidi services? Do you belong to any clubs or Yes 09/30/2019 organizations such as christian groups, unions, fraMDVIP or athletic groups, or school groups? How [...] highest level of school Master's degree (e.g., Dago Cortez MS, 09/29/2019 you have completed or the highest Darrin, MEd, ORE TESTER, BERTHA) degree you have received? Sex Assigned at Date Recorded Not on file documented as of this encounter Last Filed Vital Signs Vital Sign Reading Time Taken Comments Blood Pressure - - Pulse - - Temperature - - Respiratory Rate - - Oxygen Saturation - - Inhaled Oxygen Concentration - - Weight 94.9 kg (209 lb 3.5 oz) 04/10/2020 3:49 PM CDT Height - - Body Mass Index 29.45 04/05/2020 3:01 PM CDT documented in this encounter Progress Notes Yadira Mar P.A.-C. - 04/10/2020 4:00 PM CDT REFERRAL SOURCE Yadira Mar P.A.-C. [address] [place] [phone] SUBJECTIVE CHIEF COMPLAINT / REASON FOR VISIT Anticoagulant therapy HISTORY OF PRESENT ILLNESS Mr. Villeda is a 74 y.o. male that I am seeing today for follow-up for anticoagulant therapy recommendations. I met him on September 30, 2019 after he had been referred to thrombophilia with concerns for anticoagulant failure. Please see my consult note for full details of his complex medical history.In short, he had been on Eliquis but had a TIA just 3 weeks prior to my appointment. His medical history was significant for previous DVT and PE, neuroendocrine tumor, small bowel carcinoid, in addition to atrial fib/flutter with prior stroke and TIA while on Eliquis. 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 Since the Eliquis had failed and he had these valvular vegetations, he was sent to cardiology. I recommended that he be switched to warfarin with a goal INR range of 2-3. He did that in September. He wasunable to follow-up with cardiology right away especially when the COVID-19 pandemic cause the clinic to be shut down for a while. However he saw them on April 05, 2020 and then followed up with me today. He had a TTE done when he saw them. Please see their consult notes for full details and report. Essentially, the vegetations were still present, the longest measuring 7 mm. They stated he should stayon long-term anticoagulation. Given his current age of 74, history of stroke, and no other complications he does have a [id number] score of 4. He also has history of DVT and pulmonary emboli though I believe those were provoked. He states he has had no more TIAs or strokes since he was seen in September. He has done well with no complications. He has noticed more bruising on warfarin then when he was on Eliquis. He has not had any significant bleeding however. The following portions of the patient's history were reviewed and updated as appropriate: allergies,current medications, family history, medical history, social history, surgical history, psychiatric history, substance abuse history, problem list, labs, diagnostics tests. I reviewed the pertinent clinical notes in the electronic health record. OBJECTIVE VITALS Wt 94.9 kg BMI 29.45 kg/m?? DIAGNOSTIC REVIEW All labs and diagnostic studies were reviewed. ASSESSMENT / PLAN #1 Transient Ischemic Attack #2 Stroke (HCC) #3 Atrial Fibrillation Paroxysmal (HCC) #4 Anticoagulant Therapy #5 Abnormal Echocardiogram #6 Carcinoid Tumor Malignant (HCC) #7 Embolus Pulmonary Personal History #8 Thrombosis Deep Vein Personal History Cardiology did a thorough workup including TTE, and the aortic strands were once again observed. Thecardiologist stated that he needs to be on anticoagulation long-term. They agree with warfarin and he will stay on that long-term, goal INR range 2-3. That is being managed by his home clinic. They have no plans to see him again unless he is referred back to Cardiology. Oncology with Dr. Mcfadden stated that they will continue to follow his disease with MRI of the liver and CT chest every 4 months, repeat TTE every 2 years. He is essentially asymptomatic from his neuroendocrine tumor. He was seen in Gastroenterology in September of 2019, and they are the group that referred him to thrombophilia. The patient and his state that their primary care doctor, Dr. Rosalinda Yancey of [facility] has not received any information back though she was the referring provider. They asked me to see if I can facilitate information being sent to their primary care physician.I will be happy to do that. Since he has not had any recurrent stroke or TIA while on warfarin, I believe that is the best choice for his anticoagulation at this time. It did appear that he may have failed Eliquis, but I am not certain why he has vegetations on the aortic valve. However his stroke and TIAs did appear to be cardioembolic. He will stay on warfarin long-term. If he has a failure of warfarin, I have asked him to notify me and I would be happy to see him back again. I would like to see the record of his INRs over the previous 2 months if that does happen. Hopefully it will not happen again. I have not scheduled a return appointment but I would be glad to see him again if needed. It was a pleasure seeing him and his again today. Zarina Mar P.A.-C. documented in this encounter Plan of Treatment Not on filedocumented as of this encounter Visit Diagnoses Diagnosis Transient Ischemic Attack - Primary Stroke (HCC) Atrial Fibrillation Paroxysmal (HCC) Anticoagulant Therapy Abnormal Echocardiogram Carcinoid Tumor Malignant (HCC) Embolus Pulmonary Personal History Thrombosis Deep Vein Personal History documented in this encounter
--- OUTSIDE RECORDS SUMMARY | 2022-06-06 12:12 | XMS_ITS | Encounter Summary ---
:1945 Author Organization [facility] Address [address] [place] [address] Care Team Providers Name Role Phone Unavailable Primary Care Provider Unavailable Reason for Referral MRI/CAT/PET Scan (Routine) - Closed Specialty Diagnoses / Procedures Referred By Contact Refer red To Contact Radiology Diagnoses Carcinoid Tumor Malignant (HCC) Mikhail Mcfadden M.D. [facility] Procedures CT Chest with IV Contrast [address] [place] [phone] Referral ID Status Reason Start Date Expiration Date Visits Requ ested Visits Authorized [id number] Closed 07/24/2020 07/24/2021 1 1 Reason for Visit MRI/CAT/PET Scan (Routine) - Closed Specialty Diagnoses / Procedures Referred By Contact Refer red To Contact Radiology Diagnoses Carcinoid Tumor Malignant (HCC) Mikhail Mcfadden M.D. [facility] Procedures CT Chest with IV Contrast [address] [place] [phone] Referral ID Status Reason Start Date Expiration Date Visits Requ ested Visits Authorized [id number] Closed 07/24/2020 07/24/2021 1 1 Encounter Details Date Type Department Care Team Description 12/28/2020 Hospital Encounter Department of Mikhail Mcfadden oilani Tumor Radiology, Lurdes Julien M.D. Malignant (HCC) Building, in [address] [place] [address] [address] [facility] [address] [place], [place] [phone] (Work) [phone] Social History Tobacco Use Types Packs/Day Years [...] or relatives? How often do you attend yarsanism or More than 4 times per year 09/30/2019 nondenominational services? Do you belong to any clubs or Yes 09/30/2019 organizations such as yarsanism groups, unions, fraternal or athletic groups, or [...] have completed or the highest Darrin, MEd, CAKE ICER, BERTHA) degree you have received? Sex Assigned [...] documented as of this encounter Nursing Notes Abdifatah Perez, RMarcianoN. - 12/28/2020 10:50 AM CDT Outpatient, keeping PIV in for later exam or refused to keep in for later exam requiring PIV: Is PIV being left in? yes If no, did patient refuse? no Why is PIV being left in? Another procedure/exam scheduled for today which requires a PIV Name and role of person notified in receiving area: documented in this encounter Plan of Treatment Scheduled Orders Name Type Priority Associated Diagnoses Order S chedule Creatinine, POCT Point of Care Routine Routine la b collection Testing-Docked (next collect ion) for Device 1 Occurrences s tarting 12/28/2020 unti l 12/28/2020 documented as of this encounter Procedures Procedure Name Priority Date/Time Associated Comments Diagnosis CT CHEST WITH IV RAD - Routine 12/28/2020 11:03 Carcinoid Tumor Res ults for this CONTRAST (most inpatients AM CDT Malignant (HCC) procedur e are in and all the results outpatients) section. CREATININE, POCT, Routine 12/28/2020 10:42 Result s for this B AM CDT procedure are i n the results section. CREATININE, POCT, Routine 12/28/2020 10:42 Result s for this B AM CDT procedure are i n the results section. documented in this encounter Results CT Chest with IV Contrast (12/28/2020 11:03 AM CDT) Anatomical Region Laterality Modality Chest, Thoracic RST LOS, Thoracic ARZ N/A Co mputed Tomography, Computed LOS, Thoracic ARZ LOS, Thoracic FLA Elmer graphy LOS Specimen (Source) Anatomical Collection Method Collection Time Re ceived Time Location / / Volume Laterality 12/28/2020 11:05 AM CDT Impressions 12/28/2020 12:32 PM CDT 1. Multifocal osseous metastases, not appreciably changed on CT compared to 07/23/2020. 2. Unchanged scattered enlarged thoracic lymph nodes as described. No new enlarging lymphadenopathy. 3. New right upper lobe and lingular pat lu groundglass opacities, likely infectious/inflammatory, although recomm end attention on surveillance imaging to ensure resolution. 4. Unchanged few tiny solid pulmonary no dules. Narrative 12/28/2020 12:32 PM CDT EXAM: CT CHEST WITH IV CONTRAST 3D maximum intensity projection (MIP) im ages were created on a dependent workstation as ordered by the treating p rovider and reviewed by the radiologist to increase sensitivity for detection of pulmonary nodules. COMPARISON: CT chest 07/23/2020, 0, and 08/26/2019. PET/CT 10/07/2019. FINDINGS: Since 07/23/2020, new faint patchy perib ronchovascular groundglass opacifications in the peripheral right u pper lobe and central lingula. Slightly improved right basilar atelectasis, with residual bibasilar scarring and/or atelectasis. Biapical scarring. Trace tr acheal secretions. Unchanged few scattered tiny 2-3 mm pulm onary nodules, for example in the anterior right middle lobe (series 3/giselle ge 338) and lingula (3/398). Several of these nodules are along fissures and ple ura posteriorly, likely representing benign image pulmonary lymph nodes. Punc heredia calcified granuloma right lower lobe. No new or enlarging pulmonary nodu les visualized. Unchanged enlarged mediastinal lymph nod es including a 13 mm paraesophageal node (3/287), 6 mm left internal mammary node (3/277), and 10 mm right retrocrural node (3/589). No newly enlarged lymph no ramsey identified. Multiple hypoenhancing right thyroid lobe nodules measuring 16 x 11 mm (3/69), and 6 x 5 mm (3/49), not appreciably changed compared to 08/26/20 19. Multifocal subtle lytic and sclerotic os seous lesions throughout the skeleton not appreciably changed on CT, and joel r visualized on PET CT 10/07/2019. For example a subcentimeter sclerotic lesion in the posterior lateral right 3rd rib (3/158). Moderate degenerative changes o f the spine with anterior wedging of several midthoracic vertebral bodies and associated kyphosis. Postoperative changes right shoulder. Mild coronary artery, aortic root, and m itral annular consolidations. Trace pericardial fluid, likely physiologic. R ight ventricular and left atrial enlargement. Small fat-containing right Bochdalek hernia. Negative adrenals. Atrophic pancreas. Sm all partially visualized duodenal diverticulum. Procedure Note Mansoor Vanessa M.D. - 12/28/2020Forma tting of this note might be different from the original. EXAM: CT CHEST WITH IV CONTRAST 3D maximum intensity projection (MIP) im ages were created on a dependent workstation as ordered by the treating p rovider and reviewed by the radiologist to increase sensitivity for detection of pulmonary nodules. COMPARISON: CT chest 07/23/2020, 0, and 08/26/2019. PET/CT 10/07/2019. FINDINGS: Since 07/23/2020, new faint patchy perib ronchovascular groundglass opacifications in the peripheral right u pper lobe and central lingula. Slightly improved right basilar atelectasis, with residual bibasilar scarring and/or atelectasis. Biapical scarring. Trace tr acheal secretions. Unchanged few scattered tiny 2-3 mm pulm onary nodules, for example in the anterior right middle lobe (series 3/giselle ge 338) and lingula (3/398). Several of these nodules are along fissures and ple ura posteriorly, likely representing benign image pulmonary lymph nodes. Punc heredia calcified granuloma right lower lobe. No new or enlarging pulmonary nodu les visualized. Unchanged enlarged mediastinal lymph nod es including a 13 mm paraesophageal node (3/287), 6 mm left internal mammary node (3/277), and 10 mm right retrocrural node (3/589). No newly enlarged lymph no ramsey identified. Multiple hypoenhancing right thyroid lobe nodules measuring 16 x 11 mm (3/69), and 6 x 5 mm (3/49), not appreciably changed compared to 08/26/20 19. Multifocal subtle lytic and sclerotic os seous lesions throughout the skeleton not appreciably changed on CT, and joel r visualized on PET CT 10/07/2019. For example a subcentimeter sclerotic lesion in the posterior lateral right 3rd rib (3/158). Moderate degenerative changes o f the spine with anterior wedging of several midthoracic vertebral bodies and associated kyphosis. Postoperative changes right shoulder. Mild coronary artery, aortic root, and m itral annular consolidations. Trace pericardial fluid, likely physiologic. R ight ventricular and left atrial enlargement. Small fat-containing right Bochdalek hernia. Negative adrenals. Atrophic pancreas. Sm all partially visualized duodenal diverticulum. IMPRESSION: 1. Multifocal osseous metastases, not ap preciably changed on CT compared to 07/23/2020. 2. Unchanged scattered enlarged thoracic lymph nodes as described. No new enlarging lymphadenopathy. 3. New right upper lobe and lingular pat lu groundglass opacities, likely infectious/inflammatory, although recomm end attention on surveillance imaging to ensure resolution. 4. Unchanged few tiny solid pulmonary no dules. Mikhail LEEG CT PROCEDURES Creatinine, POCT (12/28/2020 10:42 AM CDT) P athologist Signature Creatinine, 1.1 0.7 - 1.4 12/28/2020 PCMO POCT, B mg/dL 10:48 AM CDT Comment: ----ADDITIONAL INFORMATION---- Performed at the Point of Care Specimen Anatomical Collection Method Collection Time Receive d Time (Source) Location / / Volume Laterality Blood 12/28/2020 10:42 12/28/2020 AM CDT 10:48 AM CDT Unknown Provider LAB POCT ORDERABLES - DEVICE Performing Organization Address [facility] Phon e Number POC RST CAODA[facility] [address] [place] [address] [facility] [place] [address] [place] POC 200 [facility] Creatinine, POCT (12/28/2020 10:42 AM CDT) P athologist Signature eGFR-Black/Afri 75 >=60 12/28/2020 PCMO can Sudanese, mL/min/BSA 10:48 AM CDT POCT Comment: ----ADDITIONAL INFORMATION---- Estimated GFR calculated using the 2009 CKD_EPI creatinine equation. eGFR Non-Black/, 65 >=60 mL/min/BSA 12/28/2020 10:48 AM CDT [facility] POCT Comment: ----ADDITIONAL INFORMATION---- Estimated GFR calculated using the 2009 CKD_EPI creatinine equation. Specimen Anatomical Collection Method Collection Time Receive d Time (Source) Location / / Volume Laterality Blood 12/28/2020 10:42 12/28/2020 AM CDT 10:48 AM CDT Unknown Provider LAB POCT ORDERABLES - DEVICE Performing Organization Address [facility] Phon e Number POC RST [facility] [address] [place] [address] OUTPAT[facility] LABS [facility] [place] [address] [place] POC 200 [facility] documented in this encounter Visit Diagnoses Diagnosis Carcinoid Tumor Malignant (HCC) documented in this encounter Administered Medications Inactive Administered Medications - up to 3 most recent administrations Medication Order MAR Action Action Date Dose Rate Site iohexoL 300 mg iodine/mL solution Given 12/28/2020 10:54 AM CDT 80 mL 1-200 mL (OMNIPAQUE) 1-200 mL, intravenous, Once in imaging, contrast, Starting on Thu12/28/20 at 1024, For 1 dose, Imaging Protocol Orders, Dose per Radiant Medication Guidelines documented in this encounter
--- OUTSIDE RECORDS SUMMARY | 2022-06-06 12:12 | XMS_ITS | Encounter Summary ---
:1945 Author Organization [facility] Address [address] [place] [address] Care Team Providers Name Role Phone Unavailable Primary Care Provider Unavailable Encounter Details Date Type Department Care Team Description 12/28/2020 Hospital Encounter Department of BogdanMikhail Tumor Laboratory Medicine S, [place]. Malignant (HCC) and Pathology, [address] [place] [address], in [place], [place] [phone] [place] [address] [place], [place] (Work) [phone] Social History Tobacco Use [...] or relatives? How often do you attend sikhism or More than 4 times per year 09/30/2019 restorationism services? Do you belong to any clubs or Yes 09/30/2019 organizations such as sikhism groups, unions, fraternal or athletic groups, or [...] have completed or the highest Darrin, MEd, MACHINE OPERATOR FARMWORKER, BERTHA) degree you have received? Sex Assigned [...] Date/Time Associated Comments Diagnosis CBC WITH Routine 12/28/2020 10:03 AM Carcinoid Tumor Resul ts for this DIFFERENTIAL, B CDT Malignant (HCC) procedure are in the results section. CREATININE WITH Routine 12/28/2020 10:03 AM Carcinoid Tumor Re sults for this EGFR, S/P CDT Malignant (HCC) procedure ar e in the results section. documented in this encounter Results Creatinine with Estimated GFR (12/28/2020 10:03 AM CDT) P athologist Signature Creatinine 1.07 0.74 - 12/28/2020 DTL 1.35 mg/dL 10:55 AM CDT eGFR-Non 67 >=60 12/28/2020 DTL Black/ mL/min/BSA 10:55 AM CDT Moldovan Comment: ----ADDITIONAL INFORMATION---- Estimated GFR calculated using the 2009 CKD_EPI creatinine equation. eGFR-Black/ 78 >=60 mL/min/BSA 2020 10:55 AM CDT DTL Comment: ----ADDITIONAL INFORMATION---- Estimated GFR calculated using the 2009 CKD_EPI creatinine equation. Specimen Anatomical Collection Method Collection Time Receive d Time (Source) Location / / Volume Laterality Blood (Blood, 12/28/2020 10:03 12/28/2020 Venous) AM CDT 10:22 AM CDT Mikhail Mcfadden M.D. LAB BLOOD ADD-ON Performing Organization Address City/State/ZIP Code Phon e Number [facility] - [address] [place], [place] [address] [facility] [place] [address] Laboratories-[facility] [address] (ABNORMAL) CBC with Differential, Blood (12/28/2020 10:03 AM CDT) Patholo gist Method Time Signature Hemoglobin 14.5 13.2 - 12/28/2020 DTL 16.6 g/dL 10:41 AM CDT Hematocrit 43.7 38.3 - 12/28/2020 DTL 48.6 % 10:41 AM CDT Erythrocytes 4.38 4.35 - 12/28/2020 DTL 5.65 10:41 AM CDT x10(12)/L MCV 99.8 (H) 78.2 - 12/28/2020 DTL 97.9 fL 10:41 AM CDT RBC Distrib Width 12.7 11.8 - 12/28/2020 DTL 14.5 % 10:41 AM CDT Platelet Count 200 135 - 317 12/28/2020 DTL x10(9)/L 10:41 AM CDT Leukocytes 5.1 3.4 - 9.6 12/28/2020 DTL x10(9)/L 10:41 AM CDT Neutrophils 2.55 1.56 - 12/28/2020 DTL 6.45 10:41 AM CDT x10(9)/L Lymphocytes 1.58 0.95 - 12/28/2020 DTL 3.07 10:41 AM CDT x10(9)/L Monocytes 0.74 0.26 - 12/28/2020 DTL 0.81 10:41 AM CDT x10(9)/L Eosinophils 0.19 0.03 - 12/28/2020 DTL 0.48 10:41 AM CDT x10(9)/L Basophils 0.03 0.01 - 12/28/2020 DTL 0.08 10:41 AM CDT x10(9)/L Specimen Anatomical Collection Method Collection Time Receive d Time (Source) Location / / Volume Laterality Blood (Blood, 12/28/2020 10:03 12/28/2020 Venous) AM CDT 10:31 AM CDT Mikhail Mcfadden M.D. LAB BLOOD ADD-ON Performing Organization Address City/State/ZIP Code Phon e Number [facility] - [address] [place], [place] [address] [facility] [place] [address] Laboratories-[facility] [address] documented in this encounter Visit Diagnoses Diagnosis Carcinoid Tumor Malignant (HCC) documented in this encounter
--- OUTSIDE RECORDS SUMMARY | 2022-06-06 12:12 | XMS_ITS | Encounter Summary ---
:1945 Author Organization [facility] Address [address] [place] [address] Care Team Providers Name Role Phone Unavailable Primary Care Provider Unavailable Reason for Visit Reason Comments Intake Assessment Encounter Details Date Type Department Care Team Description 12/31/2020 Clinical Communication Department of Mikhail Mcfadden In take Assessment Oncology in S, M.DMarciano Del[place], [address] [place] [address] [address] [facility] [address] [place], [place] [phone] (Work) [phone] Social History Tobacco Use Types Packs/Day Years [...] or relatives? How often do you attend pentecostal or More than 4 times per year 09/30/2019 mosque services? Do you belong to any clubs or Yes 09/30/2019 organizations such as pentecostal groups, unions, fraternal or athletic groups, or [...] have completed or the highest Darrin, MEd, WEAVER NEEDLE LOOM, BERTHA) degree you have received? Sex Assigned at Date Recorded Not on file documented as of this encounter Miscellaneous Notes Telephone Encounter - Linda Carter - 12/31/2020 2:02 PM CDT INTAKE DONE documented in this encounter Plan of Treatment Not on filedocumented as of this encounter Visit Diagnoses Not on filedocumented in this encounter
--- OUTSIDE RECORDS SUMMARY | 2022-06-06 12:12 | XMS_ITS | Encounter Summary ---
:1945 Author Organization [facility] Address [address] [place] [address] Care Team Providers Name Role Phone Unavailable Primary Care Provider Unavailable Reason for Visit Reason Comments Intake Assessment Encounter Details Date Type Department Care Team Description 07/20/2020 Clinical Communication Department of Mikhail Mcfadden In take Assessment Oncology in [place], [address] [place] [address] 200 [facility] [address] [place], [place] [phone] (Work) [phone] Social History Tobacco Use Types Packs/Day Years [...] or relatives? How often do you attend anabaptism or More than 4 times per year 09/30/2019 hinduism services? Do you belong to any clubs or Yes 09/30/2019 organizations such as anabaptism groups, unions, fraternal or athletic groups, or [...] have completed or the highest Darrin, MEd, VALIDATION LEADER, BERTHA) degree you have received? Sex Assigned at Date Recorded Not on file documented as of this encounter Miscellaneous Notes Telephone Encounter - Toyin Aguilar - 07/20/2020 8:40 AM CST Intake screening completed. T ROCK APPLICATOR documented in this encounter Plan of Treatment Not on filedocumented as of this encounter Visit Diagnoses Not on filedocumented in this encounter
--- OUTSIDE RECORDS SUMMARY | 2022-06-06 12:12 | XMS_ITS | Encounter Summary ---
:1945 Author Organization [facility] Address [address] [place] [address] Care Team Providers Name Role Phone Unavailable Primary Care Provider Unavailable Reason for Referral MRI/CAT/PET Scan (Routine) - Closed Specialty Diagnoses / Procedures Referred By Contact Refer red To Contact Radiology Diagnoses Carcinoid Tumor Malignant (HCC) Mikhail Mcfadden M.D. [facility] Procedures MR Abdomen without and with IV Contrast [address] [place] [phone] Referral ID Status Reason Start Date Expiration Date Visits Requ ested Visits Authorized [id number] Closed 05/21/2021 05/21/2022 1 1 HERIZATION INSTALLER Reason for Visit MRI/CAT/PET Scan (Routine) - Closed Specialty Diagnoses / Procedures Referred By Contact Refer red To Contact Radiology Diagnoses Carcinoid Tumor Malignant (HCC) Mikhail Mcfadden M.D. [facility] Procedures MR Abdomen without and with IV Contrast [address] [place] [phone] Referral ID Status Reason Start Date Expiration Date Visits Requ ested Visits Authorized [id number] Closed 05/21/2021 05/21/2022 1 1 Encounter Details Date Type Department Care Team Description 10/11/2021 Hospital Encounter Department of Mikhail Mcfadden Tumor Radiology, Lurdes Julien M.D. Malignant (HCC) Building, in [address] [place] [address] [place] [phone] [place], [place] [phone] (Work) [phone] Social History Tobacco Use Types Packs/Day Years [...] 09/30/2019 organizations such as christian groups, unions, fraternal or athletic groups, or [...] have completed or the highest Darrin, MEd, MOLD CUTTING MACHINE OPERATOR, BERTHA) degree you have received? [...] Comments Diagnosis MR ABDOMEN RAD - Routine 10/11/2021 11:27 Carcinoid Tumor Results for this WITHOUT AND WITH (most inpatients AM WEATHERIZATION INSTALLER Malignant (HCC) proc edure are in IV CONTRAST and all the results outpatients) section. documented in this encounter Results MR Abdomen without and with IV Contrast (10/11/2021 11:27 AM WEATHERIZATION INSTALLER) Anatomical Region Laterality Modality Abdomen, Abdominal RST LOS, Abdominal ARZ LOS, N/A Magnetic Resonance Abdominal FLA LOS Specimen (Source) Anatomical Collection Method Collection Time Re ceived Time Location / / Volume Laterality 10/11/2021 12:19 PM WEATHERIZATION INSTALLER Impressions 10/11/2021 3:16 PM WEATHERIZATION INSTALLER Stable disease. No new disease. Narrative 10/11/2021 3:16 PM WEATHERIZATION INSTALLER EXAM: ??MR ABDOMEN WITHOUT AND WITH IV [...] new/ enlarging lymph nodes in the visualized [id number]. Right renal cysts. Stable appearance of multiple [...] new/ enlarging lymph nodes in the visualized [id number]. Right renal cysts. 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 Unremarkable sple en. No significant interval change of osseou s metastatic burden with innumerable lesions throughout the imaged skeleton. IMPRESSION: Stable disease. No new disease. Mikhail MONTOYA MRI PROCEDURES documented in this encounter Visit Diagnoses Diagnosis Carcinoid Tumor Malignant (HCC) documented in this encounter Administered Medications Inactive Administered Medications - up to 3 most recent administrations Medication Order MAR Action Action Date Dose Rate Site gadobutrol injection 0.01-30 mL Given 10/11/2021 11:20 AM WEATHERIZATION INSTALLER 10 mL (GADAVIST) 0.01-30 mL, intravenous, Once in imaging, contrast, Starting on Thu10/11/21 at 1042, For 1 dose, Imaging Protocol Orders, Dose per Radiant Medication Guidelines Intrathecal doses greater than 0.25 mL not recommended. sodium chloride (PF) 0.9 % injection 1-1 00 mL Given 10/11/2021 11:20 AM WEATHERIZATION INSTALLER 40 mL 1-100 mL, intravenous, Once, On Thu10/11/21 at 1045, For 1 dose, Imaging Protocol Orders documented in this encounter Care Teams Learning Program Manager Relationship Specialty Start Date End Date [facility] 05/22/21 [place] [address] documented as of this encounter
--- OUTSIDE RECORDS SUMMARY | 2022-06-06 12:12 | XMS_ITS | Encounter Summary ---
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 [facility] Procedures Echo Transthoracic (TTE) 200 [place] [phone] Referral ID Status Reason Start Date Expiration Date Visits Requ ested Visits Authorized [id number] Closed 10/15/2021 10/15/2022 1 1 IDER NETWORK MANAGER Outpatient (Routine) - Closed Specialty Diagnoses / Procedures Referred By Contact Refer red To Contact Oncology Hemrila Coe M.D. [facility] 200 [place], [place] [phone] Referral ID Status Reason Start Date Expiration Date Visits Requ ested Visits Authorized [id number] Closed 10/15/2021 10/15/2022 1 1 IDER NETWORK MANAGER MRI/CAT/PET Scan (Routine) - Closed Specialty Diagnoses / Procedures Referred By Contact Refer red To Contact Radiology Diagnoses Carcinoid Tumor Malignant (HCC) Hermila Coe M.D. [facility] Procedures MR Abdomen without and with IV Contrast 200 [place] [phone] Referral ID Status Reason Start Date Expiration Date Visits Requ ested Visits Authorized [id number] Closed 10/15/2021 10/15/2022 1 1 IDER NETWORK MANAGER MRI/CAT/PET Scan (Routine) - Closed Specialty Diagnoses / Procedures Referred By Contact Refer red To Contact Radiology Diagnoses Carcinoid Tumor Malignant (HCC) Hermila Coe M.D. [facility] Procedures CT Chest without IV Contrast [address] [place] [phone] Referral ID Status Reason Start Date Expiration Date Visits Requ ested Visits Authorized [id number] Closed 10/15/2021 10/15/2022 1 1 IDER NETWORK MANAGER Reason for Visit Outpatient (Routine) - Closed Specialty Diagnoses / Procedures Referred By Contact Refer red To Contact Oncology Mikhail Mcfadden M. D. [facility] 200 [place], [place] [phone] Referral ID Status Reason Start Date Expiration Date Visits Requ ested Visits Authorized [id number] Closed 05/21/2021 05/21/2022 1 1 Encounter Details Date Type Department Care Team Description 10/15/2021 Office Visit Department of Mikhail Mcfadden M.D. [address] [place] [phone] Carcinoid Tumor Malignant (HCC) (Primary Dx); Oncology in Hermila Coe M.D. [address] [place] [address] [phone] Metastatic Cancer (HCC) [place], [place] [address] [place] [phone] Social History Tobacco Use Types Packs/Day Years [...] or relatives? How often do you attend jainism or More than 4 times per year 09/30/2019 christian services? Do you belong to any clubs or Yes 09/30/2019 organizations such as jainism groups, unions, fraternal or athletic groups, or [...] have completed or the highest Darrin, MEd, EDGE CUTTER, BERTHA) degree you have received? Sex Assigned at Date Recorded Not on file documented as of this encounter Last Filed Vital Signs Vital Sign Reading Time Taken Comments Blood Pressure 124/76 10/15/2021 2:15 PM PROVIDER NETWORK MANAGER Pulse 57 10/15/2021 2:15 PM PROVIDER NETWORK MANAGER Temperature 36 ??C (96.8 ??F) 10/15/2021 2:15 PM PROVIDER NETWORK MANAGER Respiratory Rate 16 10/15/2021 2:15 PM PROVIDER NETWORK MANAGER Oxygen Saturation 100% 10/15/2021 2:15 PM PROVIDER NETWORK MANAGER Inhaled Oxygen Concentration - - Weight 100 kg (220 lb 10.9 oz) 10/15/2021 2:15 PM PROVIDER NETWORK MANAGER Height 179.2 cm (5' 10.55) 10/15/2021 2:15 PM PROVIDER NETWORK MANAGER Body Mass Index 31.17 10/15/2021 2:15 PM PROVIDER NETWORK MANAGER documented in this encounter Progress Notes Hermila Coe M.D. - 10/15/2021 2:15 PM CST DEMOGRAPHIC INFORMATION Patient Name: Ricky Villeda Birthdate: 1945 Sex: male Address: [address] [facility] [phone] SUBJECTIVE CHIEF COMPLAINT/REASON FOR VISIT Primary Staff Oncologist: Dr. Aldridge Primary Fellow Oncologist: Dr. Mcfadden Supervised by: Dr. 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 male with a history most notable for cerebrovascular disease, atrial fibrillation, and venous thromboembolism. His oncologic history as follows: 2006: Diagnosed with adenocarcinoma of the prostate which was treated with high- intensity focused ultrasound in 2007 (in [place]) ?? October 27, 2008: NET diagnosed during workup prostate cancer with rising PSA. ??At that time, a CTscan showed a 2.5- x 2.5- x 1.8-cm mesenteric mass anteriorly to the aortic bifurcation. ??Biopsy revealed grade 1 (of 4) neuroendocrine carcinoma. Continued observation recommended. ?? February 08, 2014: Salvage prostatectomy and bilateral pelvic LN dissection ([place] 3 + 4, extraprostatic extension focally present, pT3N0). On observation since that time. ?? June 2019: Developed frequent episodes of flushing and gnawing abdominal pain. ?? August 2019: Local providers started short-acting octreotide 5 mg 3 times a day. Symptoms improvedrapidly. ?? August 26, 2019: Outside CT A/P: ?? Central mesenteric lymphadenopathy, the largest measuring 3.9 x 3.7 cm (previously 4.0 x 3.3 cm on 04/14/2013). ?? The 2nd largest measures 2.1 x 1.4 cm (previously 1.5 x 1.1 cm on 04/14/2013). ? Enlargement of left para-aortic abdominal lymph nodes, largest measuring 1.7 x 1.3 cm (previously0.7 x 0.4 cm on 04/14/2013). ?? Development of several small sclerotic lesions throughout the axial skeleton, for example within the superior right iliac crest (series 2 image 458) and within the posterior right sacrum (series 2 image 490). ?? September 20, 2018: Transition to octreotide LAR. Symptoms remained improved. ?? October 11, 2019: Initial evaluation at [facility]. ?? Review of outside DOTATATE scan (10/07/2019) shows slight increase in size of mesenteric mass dating back to initial CT 09/20/2008??with possible primary focus in adjacent loop of ileum; diffuse??somatostatin receptor positive disease involving axial and appendicular skeleton,??other??lymph nodes,??and liver. ?? MRI of the abdomen shows multiple small enhancing masses with restricted diffusion throughout theliver consistent with metastatic disease; along with??pancreatic,??marychuy, osseous, and probable softtissue metastases. ?? His 5-HIAA was slightly elevated at 13.2. ??Chromogranin A was normal. INTERVAL HISTORY Overall, doing well. [facility] Denies flushing, palpitations, dyspnea, chest pain, or abdominal pain. States stools are regular. Appetite is good. Weight stable. OBJECTIVE VITAL SIGNS Vitals: 10/15/21 1415 BP: 124/76 Pulse: (!) 57 Resp: 16 Temp: 36 ??C SpO2: 100% PHYSICAL EXAMINATION General: Alert, interactive, not acutely ill, no apparent distress. Skin: No rashes or lesions on exposed surfaces . Eyes: Sclera anicteric. Lungs: Normal rate and effort. Heart: Bradycardic Abdomen: Soft, nontender, nondistended Neuro: alert and oriented ECOG PS: 0 DIAGNOSTIC STUDIES Labs 10/11/21 Hb 15, PLT 197, WBC 4.[address] Chest without IV Contrast Result Date: 10/11/2021 Impression: 1. No change in posterior mediastinal and left internal mammary lymphadenopathy. 2. No change in subtle sclerotic bone metastases. MR Abdomen without and with IV Contrast Result Date: 10/11/2021 Impression: Stable disease. No new disease. 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 male with a well-differentiated neuroendocrine tumor as above. He continues to remain asymptomatic from his NET. Imaging today demonstrates ongoing stability of disease. Will plan to continue current therapy locally. Will plan for repeat office visit with MRI liver and CT chest in 4 months. Will order a repeat TTE for next office visit as well. Discussed that he is receiving octreotide LAR 20 mg which can be increased to 30mg every 4 weeks, ifneeded, on the basis of symptoms. Short acting octreotide could also be added for breakthrough symptoms. PATIENT EDUCATION Patient ready to learn, no apparent learning barriers were identified; learning preferences include listening. Explained diagnosis and treatment plan; patient expressed understanding of the content. ADMINISTRATIVE BILLING Total time of encounter: I personally spent 25 minutes in direct and indirect patient care related to today's visit Hermila Coe MD Hematology/Oncology Fellow IDER NETWORK MANAGER documented in this encounter Plan of Treatment Scheduled Referrals Name Type Priority Associated Diagnoses Order S [facility] Oncology office Outpatient Referral Routine Expec rosalba: visit (clinic) 02/12/2022, General; [facility] Net Expires: 01/12/2023 documented as of this encounter Results MR [...] me tastatic disease in the abdomen. Hermila Coe M.D. IMG MRI PROCEDURES CT Chest without IV Contrast (02/07/2022 11:22 [...] by the treating provider and reviewed by [facility] radiologist to increase sensitivity for detection of [...] by the treating provider and reviewed by [facility] radiologist to increase sensitivity for detection of pulmonary nodules. IMPRESSION: 1. New, likely inflammatory, groundglass opacities in the lingula. 2. Remainder of exam is stable. Hermila Coe M.D. IMG CT PROCEDURES Comprehensive Metabolic Panel (02/07/2022 10:36 AM CDT) [...] 02/07/2022 DTL Black/ mL/min/BSA 11:39 AM CDT Trinidadian Comment: ----ADDITIONAL INFORMATION---- Estimated GFR calculated using [...] Organization Address City/State/ZIP Code Phon e Number [facility] - [address] [place], [place] [address] [place] [address] [facility] [address] (ABNORMAL) CBC with Differential, Blood (02/07/2022 10:36 AM CDT) [facility] gist Method Time Signature Hemoglobin 14.5 13.2 [...] Organization Address City/State/ZIP Code Phon e Number [facility] - [address] [place], [place] [address] [place] [address] [facility] [address] (TTE) 2D ECHO DOPPLER COLOR (02/07/2022 8:44 AM CDT) [facility] Method Time Signature Ejection Fraction 57 [...] was performed but not reported based on air dispatcher's judg ment. Estimated right ventricular systol ic [...] complete report, see the Order-L evel Documents. Final Impressions 1. No evidence of [...] was performed but not reported based on air dispatcher's judgment. Estimated right ventricular systolic pressure 32 [...] complete report, see the Order-L evel Documents. Hermila Coe M.D. 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
--- OUTSIDE RECORDS SUMMARY | 2022-06-06 12:12 | XMS_ITS | Encounter Summary ---
:1945 Author Organization [facility] Address [address] [place] [address] Care Team Providers Name Role Phone Unavailable Primary Care Provider Unavailable Reason for Referral Outpatient (Routine) - Closed Specialty Diagnoses / Procedures Referred By Contact Refer red To Contact Oncology Mikhail Mcfadden M. D. [facility] [address] [place], [place] [phone] Referral ID Status Reason Start Date Expiration Date Visits Requ ested Visits Authorized [id number] Closed 07/24/2020 07/24/2021 1 1 GOUGER MRI/CAT/PET Scan (Routine) - Closed Specialty Diagnoses / Procedures Referred By Contact Refer red To Contact Radiology Diagnoses Carcinoid Tumor Malignant (HCC) Mikhail Mcfadden M.D. [facility] Procedures CT Chest with IV Contrast [address] [place], [place] [phone] Referral ID Status Reason Start Date Expiration Date Visits Requ ested Visits Authorized [id number] Closed 07/24/2020 07/24/2021 1 1 GOUGER MRI/CAT/PET Scan (Routine) - Closed Specialty Diagnoses / Procedures Referred By Contact Refer red To Contact Radiology Diagnoses Carcinoid Tumor Malignant (HCC) Mikhail Mcfadden M.D. [facility] Procedures MR Abdomen without and with IV Contrast [address] [place], [place] [phone] Referral ID Status Reason Start Date Expiration Date Visits Requ ested Visits Authorized [id number] Closed 07/24/2020 07/24/2021 1 1 GOUGER Reason for Visit Outpatient (Routine) - Closed Specialty Diagnoses / Procedures Referred By Contact Refer red To Contact Oncology Mikhail Mcfadden M. D. [facility] [address] [place] [phone] Referral ID Status Reason Start Date Expiration Date Visits Requ ested Visits Authorized [id number] Closed 02/27/2020 02/26/2021 1 1 Encounter Details Date Type Department Care Team Description 07/24/2020 Office Visit Division of Hematology Mikhail Mcfadden, [place] [address] (Primary Dx) [address] [place] [phone] Social History Tobacco Use Types Packs/Day Years [...] or relatives? How often do you attend zoroastrian or More than 4 times per year 09/30/2019 yarsanism services? Do you belong to any clubs or Yes 09/30/2019 organizations such as zoroastrian groups, unions, fraternal or athletic groups, or [...] completed or the highest Darrin, MEd, EDGE BANDING MACHINE OFFBEARER, BERTHA) degree you have received? Sex Assigned at Date Recorded Not on file documented as of this encounter Last Filed Vital Signs Vital Sign Reading Time Taken Comments Blood Pressure 139/86 07/24/2020 9:05 AM HEEL GOUGER Pulse 60 07/24/2020 9:05 AM HEEL GOUGER Temperature 36 ??C (96.8 ??F) 07/24/2020 9:05 AM HEEL GOUGER Respiratory Rate 16 07/24/2020 9:05 AM HEEL GOUGER Oxygen Saturation 97% 07/24/2020 9:05 AM HEEL GOUGER Inhaled Oxygen Concentration - - Weight 97 kg (213 lb 13.5 oz) 07/24/2020 9:05 AM HEEL GOUGER Height 175.8 cm (5' 9.21) 07/24/2020 9:05 AM HEEL GOUGER Body Mass Index 31.39 07/24/2020 9:05 AM HEEL GOUGER documented in this encounter Progress Notes Mikhail Mcfadden M.D. - 07/24/2020 9:15 AM CST Referring Provider: Mikhail Mcfadden M.D. [address] [place] [phone] Primary oncologist: Dr. Aldridge Staffing oncologist: Dr. Barbosa Primary fellow: Dr. 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 SUBJECTIVE Mr. Vlileda is a very pleasant 75-year-old gentleman with a history most notable for cerebrovascular disease, atrial fibrillation, and venous thromboembolism. His oncologic history as follows: 2006: Diagnosed with adenocarcinoma of the prostate which was treated with high- intensity focused ultrasound in 2007 (in [place]) October 27, 2008: NET diagnosed during workup prostate cancer with rising PSA. At that time, a CT scan showed a 2.5- x 2.5- x 1.8-cm mesenteric mass anteriorly to the aortic bifurcation. 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 Continued observation recommended. February 08, 2014: Salvage prostatectomy and bilateral pelvic LN dissection (Alba 3 + 4, extraprostatic extension focally present, [...] improved. October 11, 2019: Initial evaluation at [facility]. ?? Review of outside DOTATATE [...] well. He is still receiving long-acting octreotide injections. He rarely experiences gnawing abdominal pain and loose stools. On average, he has 2 bowel movements per day but almost never more than 3 bowel movements per day. He has no bony pain. He denies flushing, palpitations, dyspnea, and chest discomfort. His weight is stable. He continues to exercise daily, walking 2-3 miles at a time. 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 He is to Aya with no children. He hopes to take up photography. He is a never smoker. Family History: Per EMR OBJECTIVE Vitals: 07/24/20 0905 BP: 139/86 Pulse: 60 Temp: 36 ??C Resp: 16 Height: 175.8 cm Weight: 97 kg SpO2: 97% TempSrc: Tympanic Body surface area is 2.18 meters squared. Physical exam: General: No acute distress. ECOG 0. Independent [id number]. Normal gait speed. HEENT: He is wearing a mask today. His eyes are not injected. Lymph: No appreciable cervical or supraclavicular adenopathy. Heart: Rate controlled. Irregular rhythm. Mild systolic ejection murmur at the apex. Lungs: Breathing comfortably on room air. Abdomen: Soft and non-tender with no distension, hepatosplenomegaly, or masses. Neurologic: Face symmetric. Pupils equal. Intelligible speech. [...] from his neuroendocrine tumor. Today's imaging shows that his hepatic metastases are stable to decreased in size. Hismetastases to bone and lymph node are largely stable. I recommend no change in therapy today. We will follow his disease with MRI liver and CT chest every 4 months. Repeat TTE every couple of years (next due 2021). [...] and/or coordination of care as described above. GOUGER documented in this encounter Plan of Treatment Scheduled Referrals Name Type Priority Associated Diagnoses Order S [facility] Oncology office Outpatient Referral Routine Expec rosalba: visit (clinic) 11/20/2020 (Approximate), Expires: 07/24/2023 documented as of this encounter Results MR [...] identified. 3.8 cm mesenteric mass is unchanged (/ 119), and other mesenteric adenopathy (for example [...] are identifi ed. Mikhail MONTOYA MRI PROCEDURES CT Chest with IV Contrast (12/28/2020 11:03 [...] few tiny solid pulmonary no dules. Mikhail Mcfadden M.D. IMG CT PROCEDURES Creatinine with Estimated GFR (12/28/2020 10:03 AM CDT) P athologist Signature Creatinine 1.07 0.74 - 12/28/2020 DTL 1.35 mg/dL 10:55 AM CDT eGFR-Non 67 >=60 12/28/2020 DTL Black/ mL/min/BSA 10:55 AM CDT Guatemalan Comment: ----ADDITIONAL INFORMATION---- Estimated GFR calculated using [...] Address City/State/ZIP Code Phon e Number [facility] - [address] [place] [phone] [facility] [place] [address] [facility] [address] [facility] (ABNORMAL) CBC with Differential, Blood (12/28/2020 10:03 [...] Address City/State/ZIP Code Phon e Number 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
--- OUTSIDE RECORDS SUMMARY | 2022-06-06 12:13 | XMS_ITS | Encounter Summary ---
:1945 Author Organization [facility] Address [address] [place] [address] Care Team Providers Name Role Phone Unavailable Primary Care Provider Unavailable Reason for Referral Outpatient (Routine) - Closed Specialty Diagnoses / Procedures Referred By Contact Refer red To Contact Diagnoses Transient Ischemic Attack Melanie Lopez M.D. [facility] Procedures Echo Transthoracic (TTE) - Complex Valvular Heart Disease [address] [place] [address] Referral ID Status Reason Start Date Expiration Date Visits Requ ested Visits Authorized [id number] Closed 10/27/2019 10/26/2020 1 1 Reason for Visit Outpatient (Routine) - Closed Specialty Diagnoses / Procedures Referred By Contact Refer red To Contact Diagnoses Transient Ischemic Attack Melanie Lopez M.D. 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 Sex [...] injection SandoSTATIN 50 mcg/mL 0 09/02/2019 injection sotalol (BETAPACE) 80 mg 2 (two) times a day. 0 0 09/21/2019 tablet warfarin (COUMADIN) 5 mg 0 01/11/2020 tablet documented as of this encounter Plan of Treatment Not on filedocumented as of this encounter Procedures Procedure Name Priority Date/Time Associated Diagnosis Comme nts (TTE) 2D ECHO Routine 04/05/2020 12:32 PM Transient Ischemic R esults for this DOPPLER COLOR CDT Attack procedure are in the results section. documented in this encounter Results (TTE) 2D ECHO DOPPLER COLOR (04/05/2020 12:32 PM CDT) [facility] gist Method Time Signature Ejection Fraction 61 MC CV EIMS Sinus of Valsalva 37 MC CV EIMS Sinotubular Junction 33 MC CV EIM S Proximal Ascending 37 MC CV EIMS Aorta Mid-Ascending Aorta 42 MC CV EIMS LV Mass Index 99 MC CV EIMS LV End-Diastolic 50 MC CV EIMS Diameter LV End-Systolic 35 MC CV EIMS Diameter MV E Velocity 0.6 MC CV EIMS MV A Velocity 0.8 MC CV EIMS MV E/A 0.75 MC CV EIMS MV e' Velocity 0.06 MC CV EIMS Medial MV e' Velocity 0.09 MC CV EIMS Lateral MV E/e' Medial 10.0 MC CV EIMS MV E/e' Lateral 6.7 MC CV EIMS Left ventricular 44 MC CV EIMS stroke volume index Cardiac Output 6.03 MC CV EIMS Cardiac Index 2.89 MC CV EIMS LV Interventricular 11 MC CV EIMS Septal Wall Thickness LV Posterior Wall 11 MC CV EIMS Thickness LV Relative Wall 44 MC CV EIMS Thickness RV 4-Chamber Basal 49 MC CV EIMS Diameter RV 4-Chamber Mid 36 MC CV EIMS Diameter RV 4-Chamber Length 76 MC CV EIMS TAPSE 28 MC CV EIMS Tricuspid Annular S? 0.13 MC CV EIMS TR Vmax 2.50 MC CV EIMS RA Pressure 5 MC CV EIMS RV Systolic Pressure 30 MC CV EIM S Aortic valve area 2.86 MC CV EIMS Aortic Valve 0.69 MC CV EIMS Dimensionless Index LA Volume Index 50 MC CV EIMS Anatomical Region Laterality Modality Echocardiography Specimen (Source) Anatomical Collection Method Collection Time Re ceived Time Location / / Volume Laterality 04/05/2020 12:33 PM CDT Impressions 04/05/2020 3:11 PM CDT LEFT VENTRICLE: ??Normal left ventricular chamber size. ??Normal left ventricular wall thickness. Left ventricular mass index by 2D 99 g/ m^2. ??Calculated 2-D four chamber monoplane volumetric left ventricular ejection fraction 61 %. ??No regional wall motion abnormalities. ??Grade 1/4 left ventricular diastolic dysfunction, consistent with low to normal left ventricular filling pressure. ??RIGHT VENTRICLE: ??Mildly en larged right ventricular chamber size. ??Normal right ventricular systolic function. ??Estimat ed right ventricular systolic pressure 30 mmHg (systolic blood pressure 126 mmHg). ??ATRIA: ??Sev erely enlarged left atrial size. ??Left atrial volume index 50 ml/m^2. ??Enlarged right atrial size by visual estimate. ??CARDIAC VALVES: ??Trileaflet aortic valve. ??Thickened aortic valve. ??Aortic valve strands. ??No aortic valve regurgitation. Thickened mitral valve. ??Trivial mitral valve regurgitation. ??Normal pulmonary valve. ??Normal pulmonary valve systolic velocity. ??Tri vial pulmonary valve regurgitation. ??Normal tricuspid valve. ??Mild tricuspid valve regurgitat ion. ??OTHER ECHO FINDINGS: ??Normal inferior vena cava size with normal inspiratory collapse (> 50%). ??Normal ascending aorta diameter (upper limit of normal for age, sex and BSA is 43 mm). ? ?No abdominal aortic aneurysm. ??Normal abdominal aorta Doppler flow pattern. ??Atrial septal an eurysm. ??No atrial level shunt by color flow imaging. No intracardiac mass or thrombus, but th e left atrial appendage cannot be visualized adequately with transthoracic echo to exclude throm bus in this location. ??No pericardial effusion. For the complete report, see the Critical Links Documents. Narrative 04/05/2020 3:11 PM CDT For the complete report, see the Critical Links Documents. Final Impressions 1. Aortic valve strands (longest measuri ng 7 mm). 2. Normal left ventricular chamber size. ??Calculated ejection fraction 61%. No regional wall motion abnormalities. 3. Grade 1/4 left ventricular diastolic dysfunction, consistent with low to normal left ventricular filling pressure. 4. Mildly enlarged right ventricular rolf mber size with normal systolic function. 5. Estimated right ventricular systolic pressure 30 mmHg (systolic blood pressure 126 mmHg). 6. Normal inferior vena cava size with n ormal inspiratory collapse (>50%). Procedure Note Shante Harry D.O. - 04/05/2020Fo rmatting of this note might be different from the original. For the complete report, see the Critical Links Documents. Final Impressions 1. Aortic valve strands (longest measuri ng 7 mm). 2. Normal left ventricular chamber size. Calculated ejection fraction 61%. No regional wall motion abnormalities. 3. Grade 1/4 left ventricular diastolic dysfunction, consistent with low to normal left ventricular filling pressure. 4. Mildly enlarged right ventricular rolf mber size with normal systolic function. 5. Estimated right ventricular systolic pressure 30 mmHg (systolic blood pressure 126 mmHg). 6. Normal inferior vena cava size with n ormal inspiratory collapse (>50%). Findings LEFT VENTRICLE: Normal left ventricular chamber size. Normal left ventricular wall thickness. Left ventricular mass index by 2D 99 g/ m^2. Calculated 2-D four chamber monoplane volumetric left ventricular ejection fraction 61 %. No regional wall motion abnormalities. Grade 1/4 left ventricular diastolic dysfunction, consistent with low to normal left ventricular filling pressure. RIGHT VENTRICLE: Mildly enlarg ed right ventricular chamber size. Normal right ventricular systolic function. Estimated right ventricular systolic pressure 30 mmHg (systolic blood pressure 126 mmHg). ATRIA: Severel y enlarged left atrial size. Left atrial volume index 50 ml/m^2. Enlarged right atrial s ize by visual estimate. CARDIAC VALVES: Trileaflet aortic valve. Thickened aortic valve. Ao rtic valve strands. No aortic valve regurgitation. Thickened mitral valve. Trivial mitral v alve regurgitation. Normal pulmonary valve. Normal pulmonary valve systolic velocity. Trivi al pulmonary valve regurgitation. Normal tricuspid valve. Mild tricuspid valve regurgitatio n. OTHER ECHO FINDINGS: Normal inferior vena cava size with normal inspiratory collapse (> 50%). Normal ascending aorta diameter (upper limit of normal for age, sex and BSA is 43 mm). N o abdominal aortic aneurysm. Normal abdominal aorta Doppler flow pattern. Atrial septal aneu rysm. No atrial level shunt by color flow imaging. No intracardiac mass or thrombus, but th e left atrial appendage cannot be visualized adequately with transthoracic echo to exclude throm bus in this location. No pericardial effusion. For the complete report, see the Order-L evel Documents. Shahnaz. Jairo Lopez M.D. CV ECHO PROCEDURES documented in this encounter Visit Diagnoses Diagnosis Transient Ischemic Attack documented in this encounter
--- OUTSIDE RECORDS SUMMARY | 2022-06-06 12:13 | XMS_ITS | Encounter Summary ---
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 Sex Assigned at Date Recorded Not on file documented as of this encounter Medications at Time of Discharge Medication Sig Dispensed Refills Start Date End Date cholecalciferol, vitamin TAKE ONE TABLET BY 0 05/2019 D3, 25 mcg (1,000 Unit) MOUTH EVERY DAY tablet octreotide acetate every 28 0 09/19/2019 (SANDOSTATIN) 50 mcg/mL (twenty-eight) days. (1 mL) injection SandoSTATIN 50 mcg/mL 0 09/02/2019 injection sotalol (BETAPACE) 80 mg 2 (two) times a day. 0 0 09/21/2019 tablet warfarin (COUMADIN) 5 mg 0 01/11/2020 tablet Eliquis 5 mg tablet 0 09/21/201904/05 documented as of this encounter Plan of Treatment Not on filedocumented as of this encounter Procedures Procedure Name Priority Date/Time Associated Comments Diagnosis LIPID PANEL, S Routine 02/27/2020 10:36 Transient Ischemic Res ults for this AM CDT Attack procedure are i n the results section. CHROMOGRANIN A, S Routine 02/27/2020 10:36 Carcinoid Syndrome Results for this AM CDT (HCC) procedure are in Carcinoid Ileum the results Malignant (HCC) section. Primary Malignant Neoplasm Of Prostate (HCC) NT-PRO B-TYPE Routine 02/27/2020 10:36 Transient Ischemic Resu lts for this NATRIURETIC PEPTIDE AM CDT Attack procedur e are in (BNP), S the results section. PROTHROMBIN TIME (PT), Routine 02/27/2020 10:36 Transient Isch emic Results for this P AM CDT Attack procedure are i n the results section. CBC WITH DIFFERENTIAL, Routine 02/27/2020 10:36 Carcinoid Synd gregoria Results for this B AM CDT (HCC) procedure are in Carcinoid Ileum the results Malignant (HCC) section. Primary Malignant Neoplasm Of Prostate (HCC) THYROID-STIMULATING Routine 02/27/2020 10:36 Transient Ischemi c Results for this HORMONE-SENSITIVE AM CDT Attack procedure are in (S-TSH) the results section. GLUCOSE, FASTING, S/P Routine 02/27/2020 10:36 Transient Ische carter Results for this AM CDT Attack procedure are i n the results section. COMPREHENSIVE Routine 02/27/2020 10:36 Carcinoid Syndrome Resu lts for this METABOLIC PANEL, S/P AM CDT (HCC) procedure are in Carcinoid Ileum the results Malignant (HCC) section. Primary Malignant Neoplasm Of Prostate (HCC) documented in this encounter Results (ABNORMAL) NT-Pro B-Type Natriuretic Peptide (BNP) (02/27/2020 10:36 AM CDT) P athologist Signature NT-Pro BNP 161 (H) <=113 pg/mL 02/27/2020 DTL 1:28 PM CDT Comment: NT-proBNP values less than 300 pg/mL hav e a 99% negative predictive value for excluding acute congestive heart ashley lure. A cutoff of 1200 pg/mL for patients with an eGFR<60 yields a diagno stic sensitivity and specificity of 89% and 72% for acute congestive heart f ailure. ??A diagnostic NT-proBNP cutoff of 900 pg/mL has been suggested i n adults 50-75 years of age in the absence of renal failure. Specimen Anatomical Collection Method Collection Time Receive d Time (Source) Location / / Volume Laterality Blood (Blood, 02/27/2020 10:36 02/27/2020 Venous) AM CDT 12:47 PM CDT Melanie Lopez M.D. LAB BLOOD ADD-ON Performing Organization Address City/State/ZIP Code Phon e Number [facility] - [address] [place] [address] [facility] [place] [address] [facility] 200 [facility] (ABNORMAL) Lipid Panel (02/27/2020 10:36 AM CDT) P athologist Signature Cholesterol, 205 (H) mg/dL 02/27/2020 DTL Total 1:28 PM CDT Comment: ----REFERENCE VALUE---- Desirable: < 200 Borderline high: 200 - 239 High: > or = 240 Triglycerides 86 mg/dL 02/27/2020 1:28 PM CDT DTL Comment: ----REFERENCE VALUE---- Normal: <150 Borderline high: 150-199 High: 200-499 Very high: > or =500 Cholesterol, HDL, S 64 >=40 mg/dL 02/27/2020 1:28 PM CDT DTL Calculated LDL 124 mg/dL 02/27/2020 1:28 PM CDT DT L Comment: ----REFERENCE VALUE---- Desirable: <100 Above Desirable: 100-129 Borderline high: 130-159 High: 160-189 Very high: > or =190 Cholesterol, Non-HDL, Calculated 141 mg/dL 020 1:28 PM CDT DTL Comment: ----REFERENCE VALUE---- Desirable: <130 Above Desirable: 130-159 Borderline high: 160-189 High: 190-219 Very high: > or =220 Specimen Anatomical Collection Method Collection Time Receive d Time (Source) Location / / Volume Laterality Blood (Blood, 02/27/2020 10:36 02/27/2020 Venous) AM CDT 12:47 PM CDT Melanie Lopez M.D. LAB BLOOD ADD-ON Performing Organization Address [facility] Phon e Number [facility] - 200 [place], [place] [address] [facility] [place] [address] Laboratories-[address] S-TSH (Thyroid-Stimulating Hormone - Sensitive) (02/27/2020 10:36 AM CDT) P athologist Signature TSH, Sensitive 1.0 0.3 - 4.2 02/27/2020 DT mIU/L 1:28 PM CDT Specimen Anatomical Collection Method Collection Time Receive d Time (Source) Location / / Volume Laterality Blood (Blood, 02/27/2020 10:36 02/27/2020 Venous) AM CDT 12:47 PM CDT Melanie Lopez M.D. LAB BLOOD ADD-ON Performing Organization Address [facility] Phon e Number [facility] - [address] [place] [address] 05 [place] [address] (ABNORMAL) Prothrombin Time (PT) (02/27/2020 10:36 AM CDT) Patholo gist Method Time Signature Prothrombin 29.2 (H) 9.4 - 12.5 02/27/2020 DTL Time, P sec 11:14 AM CDT INR 2.6 0.9 - 1.1 02/27/2020 DTL 11:14 AM CDT Comment: ----ADDITIONAL INFORMATION---- Standard intensity warfarin therapeutic range: 2.0 to 3.0 ?? High intensity warfarin therapeutic rang e: 2.5 to 3.5 Specimen Anatomical Collection Method Collection Time Receive d Time (Source) Location / / Volume Laterality Blood (Blood, 02/27/2020 10:36 02/27/2020 Venous) AM CDT 10:55 AM CDT Melanie Lopez M.D. LAB BLOOD ADD-ON Performing Organization Address City/State/[facility] Code Phon e Number [facility] - [address] [place] [phone] 05 [place] [address] [facility] 200 [facility] (ABNORMAL) Glucose, Fasting (02/27/2020 10:36 AM CDT) athologist Signature Glucose, P 109 (H) 70 - 100 02/27/2020 DTL mg/dL 1:21 PM CDT Last Intake 16 hr 02/27/2020 DTL 12:52 PM CDT Specimen Anatomical Collection Method Collection Time Receive d Time (Source) Location / / Volume Laterality Blood (Blood, 02/27/2020 10:36 02/27/2020 Venous) AM CDT 12:52 PM CDT Melanie Lopez M.D. LAB BLOOD NON ADD-ON Performing Organization Address City/[facility] Phon e Number [facility] - [address] [place] [address] 05 [place] [address] Chromogranin A (02/27/2020 10:36 AM CDT) athologist Signature Chromogranin A, S 48 <93 ng/mL 02/28/2020 [facility] 10:08 AM CDT Comment: ----ADDITIONAL INFORMATION---- This test was developed and its performa nce characteristics determined by [facility] in a manner co nsistent with CLIA requirements. This test has not been alessio ared or approved by the U.S. Food and Drug Administration. The testing method is a homogeneous time -resolved immunofluorescent assay. ? Values obtained with different assay met hods or kits may be different and cannot be used interchange ably. ? Test results cannot be interpreted as ab solute evidence for the presence or absence of malignant dis ease. Specimen Anatomical Collection Method Collection Time Receive d Time (Source) Location / / Volume Laterality Blood (Blood, 02/27/2020 10:36 02/28/2020 9:59 Venous) AM CDT AM CDT Mikhail Mcfadden M.D. LAB BLOOD NON ADD-ON Performing Organization Address City/[facility]/ZIP Code Phon e Number [facility] [address] [place], [place] [address] [facility] [place] [address] Laboratory Medicine and Pathology [address] [place] Comprehensive Metabolic Panel (02/27/2020 10:36 AM CDT) P athologist Signature Potassium, S 4.5 3.6 - 5.2 02/27/2020 DTL mmol/L 1:19 PM CDT Sodium, S 143 135 - 145 02/27/2020 DTL mmol/L 1:19 PM CDT Chloride, S 106 98 - 107 02/27/2020 DTL mmol/L 1:19 PM CDT Bicarbonate, S 26 22 - 29 02/27/2020 DTL mmol/L 1:19 PM CDT Anion Gap 11 7 - 15 02/27/2020 DTL 1:19 PM CDT BUN (Blood Urea 13 8 - 24 02/27/2020 DTL Nitrogen), S mg/dL 1:19 PM CDT Creatinine 1.01 0.74 - 02/27/2020 DTL 1.35 mg/dL 1:19 PM CDT eGFR-Non 72 >=60 02/27/2020 DTL Black/ mL/min/BSA 1:19 PM CDT Cymro Comment: ----ADDITIONAL INFORMATION---- Estimated GFR calculated using the 2009 CKD_EPI creatinine equation. eGFR-Black/ 84 >=60 mL/min/BSA 2019 1:19 PM CDT DTL Comment: ----ADDITIONAL INFORMATION---- Estimated GFR calculated using the 2009 CKD_EPI creatinine equation. Calcium, Total, S 9.4 8.8 - 10.2 mg/dL 02/27/2020 1:19 PM CDT DTL Glucose, S CANCELED mg/dL 02/27/2020 12:52 PM CDT DTL Comment: Test not performed. See Fasting Glucose result. Result canceled by the ancillary. Protein, Total, S 6.8 6.3 - 7.9 g/dL 02/27/2020 1:19 P M CDT DTL Albumin, S 4.2 3.5 - 5.0 g/dL 02/27/2020 1:19 PM CDT D TL Aspartate Aminotransferase (AST), S 23 8 - 48 U/L 1:19 PM CDT DTL Alkaline Phosphatase, S 85 40 - 129 U/L 02/27/2020 1: 19 PM CDT DTL Alanine Aminotransferase (ALT), S 20 7 - 55 U/L 02/26 1:19 PM CDT DTL Bilirubin, Total, S 1.0 <=1.2 mg/dL 02/27/2020 1:19 PM CDT DTL Specimen Anatomical Collection Method Collection Time Receive d Time (Source) Location / / Volume Laterality Blood (Blood, 02/27/2020 10:36 02/27/2020 Venous) AM CDT 12:51 PM CDT Mikhail Mcfadden M.D. LAB BLOOD ADD-ON Performing Organization Address City/State/ZIP Code Phon e Number [facility] - [address] [place], [place] [address] [facility] [place] [address] [facility] 200 [facility] (ABNORMAL) CBC with Differential, Blood (02/27/2020 10:36 AM CDT) [facility] gist Method Time Signature Hemoglobin 14.5 13.2 - 02/27/2020 DTL 16.6 g/dL 11:17 AM CDT Hematocrit 43.2 38.3 - 02/27/2020 DTL 48.6 % 11:17 AM CDT Erythrocytes 4.32 (L) 4.35 - 02/27/2020 DTL 5.65 11:17 AM CDT x10(12)/L MCV 100.0 (H) 78.2 - 02/27/2020 DTL 97.9 fL 11:17 AM CDT RBC Distrib Width 12.7 11.8 - 02/27/2020 DTL 14.5 % 11:17 AM CDT Platelet Count 216 135 - 317 02/27/2020 DTL x10(9)/L 11:17 AM CDT Leukocytes 4.2 3.4 - 9.6 02/27/2020 DTL x10(9)/L 11:17 AM CDT Neutrophils 2.28 1.56 - 02/27/2020 DTL 6.45 11:17 AM CDT x10(9)/L Lymphocytes 1.18 0.95 - 02/27/2020 DTL 3.07 11:17 AM CDT x10(9)/L Monocytes 0.60 0.26 - 02/27/2020 DTL 0.81 11:17 AM CDT x10(9)/L Eosinophils 0.15 0.03 - 02/27/2020 DTL 0.48 11:17 AM CDT x10(9)/L Basophils <0.03 0.01 - 02/27/2020 DTL 0.08 11:17 AM CDT x10(9)/L Specimen Anatomical Collection Method Collection Time Receive d Time (Source) Location / / Volume Laterality Blood (Blood, 02/27/2020 10:36 02/27/2020 Venous) AM CDT 10:55 AM CDT Mikhail Mcfadden M.D. 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
--- OUTSIDE RECORDS SUMMARY | 2022-06-06 12:13 | XMS_ITS | Encounter Summary ---
:1945 Author Organization [facility] Address [address] [place] [address] Care Team Providers Name Role Phone Unavailable Primary Care Provider Unavailable Reason for Visit Reason Onset Date Comments Internal referral 10/25/2019 Encounter Details Date Type Department Care Team Description 10/25/2019 Clinical Department of Provider, Internal refer ral Communication Cardiovascular Unknown Medicine in [place], [place] [address] [place] [address] Social History Tobacco Use Types Packs/Day Years Used Date Smoking Tobacco: Never Alcohol Habits Answer Date Recorded How often [...] or relatives? How often do you attend adventist or More than 4 times per year 09/30/2019 mandaeism services? 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 Sex Assigned at Date Recorded Not on file documented as of this encounter Miscellaneous Notes Telephone Encounter - Neelam Guadalupe R.N. - 10/26/2019 1:36 PM TACK PULLER Clarified with ELIZABETH Carter (referring provider). There was work done behind the scenes on anticoagulation recommendations. She would like a Valve consult in 3 months with an echo to relook at the aortic valve. PULLER documented in this encounter Plan of Treatment Not on filedocumented as of this encounter Visit Diagnoses Not on filedocumented in this encounter
--- OUTSIDE RECORDS SUMMARY | 2022-06-06 12:13 | XMS_ITS | Encounter Summary ---
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 [facility] Procedures MR Abdomen without and with IV Contrast [address] [place] [phone] Referral ID Status Reason Start Date Expiration Date Visits Requ ested Visits Authorized [id number] Closed 10/11/2019 10/10/2020 1 1 Encounter Details Date Type Department Care Team Description 02/27/2020 Hospital Encounter Department of Mikhail Mcfadden Carcin oid Syndrome (HCC); Radiology, Lurdes Julien M.D. Carcinoid Ileum Malignant (HCC); Building, in [address] [place] [address] Primary Malignant Neoplasm Of Prostate ( HCC) [place], [place] [address] [address] [place], [place] [phone] (Work) [phone] Social History Tobacco Use Types Packs/Day Years [...] or relatives? How often do you attend episcopal or More than 4 times per year 09/30/2019 voodoo services? Do you belong to any clubs or Yes 09/30/2019 organizations such as episcopal groups, unions, fraternal or athletic groups, or [...] level of school Master's degree (e.g., M [place], [place], 09/29/2019 you have completed or the highest Darrin, MEd, ARBITRATOR, BERTHA) degree you have received? Sex Assigned at Date Recorded Not on file documented as of this encounter Last Filed Vital Signs Vital Sign Reading Time Taken Comments Blood Pressure - - Pulse - - Temperature - - Respiratory Rate - - Oxygen Saturation - - Inhaled Oxygen Concentration - - Weight 90.7 kg (200 lb) 02/27/2020 11:37 AM CDT Height 180.3 cm (5' 11) 02/27/2020 11:37 AM CDT Body Mass Index 27.89 02/27/2020 11:37 AM CDT documented in this encounter Medications at Time of Discharge [...] 0 09/21/201904/05 documented as of this encounter Nursing Notes Kaylee Barney R.N. - 02/27/2020 11:45 AM CDT A review of the patients current medications was completed under the context of radiology care priorto contrast/medication administration. documented in this encounter Plan of Treatment Scheduled Orders Name Type Priority Associated Diagnoses Order S chedule Creatinine, POCT Point of Care STAT STAT for 1 Occurrences Testing-Docked starting 02/12 Device until 0 documented as of this encounter Procedures Procedure Name Priority Date/Time Associated Comments Diagnosis MR ABDOMEN RAD - Routine 02/27/2020 12:41 Carcinoid Results fo r this WITHOUT AND WITH (most inpatients PM CDT Syndrome (HCC) procedure are in IV CONTRAST and all Carcinoid Ileum the results outpatients) Malignant (HCC) section. Primary Malignant Neoplasm Of Prostate (HCC) CREATININE, POCT, Routine 02/27/2020 11:44 Result s for this B AM CDT procedure are i n the results section. CREATININE, POCT, Routine 02/27/2020 11:44 Result s for this B AM CDT procedure are i n the results section. documented in this encounter Results MR Abdomen without and with IV Contrast (02/27/2020 12:41 PM CDT) Anatomical Region Laterality Modality Abdomen, Abdominal RST LOS, Abdominal ARZ LOS, N/A Magnetic Resonance Abdominal FLA LOS Specimen (Source) Anatomical Collection Method Collection Time Re ceived Time Location / / Volume Laterality 02/27/2020 2:33 PM CDT Impressions 02/27/2020 2:58 PM CDT Stable multiple metastases in the liver, bone and lymph nodes. Narrative 02/27/2020 2:58 PM CDT EXAM: ??MR ABDOMEN WITHOUT AND WITH IV CONTRAST COMPARISON: ??MRI dated 09/22/1999 FINDINGS: Multiple small metastases are again note d in the liver, best seen on DWI images (series 3 image 79). These lesions appea r stable. For example, the largest lesion measures 1.7 cm in segment (serie s 3 image 83, series 7 image 64). A few small cysts in the liver. Several enlarged retroperitoneal and mes enteric lymph nodes are stable. For example, the largest lymph node measures 4.1 x 3.3 cm in the small bowel mesentery (series 9 image 257). The larg est left para-aortic lymph node measures 1.1 cm (series 9 image 232). Gallstones. Right renal cyst. Atrophy of the body and tail of the pancreas. Adrenals and spleen are unremarkable. Procedure Note Kate Brandon M.D. - 02/27/2020Forma tting of this note might be different from the original. EXAM: MR ABDOMEN WITHOUT AND WITH IV CON TRAST COMPARISON: MRI dated 09/22/1999 FINDINGS: Multiple small metastases are again note d in the liver, best seen on DWI images (series 3 image 79). These lesions appea r stable. For example, the largest lesion measures 1.7 cm in segment (serie s 3 image 83, series 7 image 64). A few small cysts in the liver. Several enlarged retroperitoneal and mes enteric lymph nodes are stable. For example, the largest lymph node measures 4.1 x 3.3 cm in the small bowel mesentery (series 9 image 257). The larg est left para-aortic lymph node measures 1.1 cm (series 9 image 232). Gallstones. Right renal cyst. Atrophy of the body and tail of the pancreas. Adrenals and spleen are unremarkable. IMPRESSION: Stable multiple metastases in the liver, bone and lymph nodes. Mikhail Mcfadden M.D. IMG MRI PROCEDURES Creatinine, POCT (02/27/2020 11:44 AM CDT) athologist Signature Creatinine, 0.8 0.7 - 1.4 02/27/2020 PCDT POCT, B mg/dL 11:46 AM CDT Comment: ----ADDITIONAL INFORMATION---- Performed at the Point of Care Specimen Anatomical Collection Method Collection Time Receive d Time (Source) Location / / Volume Laterality Blood 02/27/2020 11:44 02/27/2020 AM CDT 11:47 AM CDT Unknown Provider LAB POCT ORDERABLES - DEVICE Performing Organization Address City/State/ZIP Code Phon e Number POC REGINA PERFORMING [address] [place] [address] LABS PCDT [facility] [place] [address] [place] [facility] [address] Creatinine, POCT (02/27/2020 11:44 AM CDT) athologist Signature eGFR-Black/Afri >90 >=60 02/27/2020 PCMO can [place], mL/min/BSA 11:47 AM CDT POCT Comment: ----ADDITIONAL INFORMATION---- Estimated GFR calculated using the 2009 CKD_EPI creatinine equation. eGFR Non-Black/, 87 >=60 mL/min/BSA 02/27/2020 11:47 AM CDT PCMO POCT Comment: ----ADDITIONAL INFORMATION---- Estimated GFR calculated using the 2009 CKD_EPI creatinine equation. 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) Primary Malignant Neoplasm Of Prostate ( HCC) documented in this encounter Administered Medications Inactive Administered Medications - up to 3 most recent administrations Medication Order MAR Action Action Date Dose Rate Site gadobutrol injection 0.01-30 mL Given 02/27/2020 12:31 PM CDT 10 mL (GADAVIST) 0.01-30 mL, intravenous, Once in imaging, contrast, Starting on Thu02/27/20 at 1134, For 1 dose, Imaging Protocol Orders, Dose per Radiant Medication Guidelines sodium chloride (PF) 0.9 % injection 1-1 00 mL Given 02/27/2020 12:32 PM CDT 50 mL 1-100 mL, intravenous, Once, On Thu02/27/20 at 1145, For 1 dose, Imaging Protocol Orders documented in this encounter
--- OUTSIDE RECORDS SUMMARY | 2022-06-06 12:13 | XMS_ITS | Encounter Summary ---
:1945 Author Organization [facility] Address [address] [place] [address] Care Team Providers Name Role Phone Unavailable Primary Care Provider Unavailable Reason for Referral Outpatient (Routine) - Closed Specialty Diagnoses / Procedures Referred By Contact Refer red To Contact Oncology Mikhail Mcfadden M. D. [facility] [address] [place], [place] [phone] Referral ID Status Reason Start Date Expiration Date Visits Requ ested Visits Authorized [id number] Closed 02/27/2020 02/26/2021 1 1 MRI/CAT/PET Scan (Routine) - Closed Specialty Diagnoses / Procedures Referred By Contact Refer red To Contact Radiology Diagnoses Carcinoid Tumor Malignant (HCC) Mikhail Mcfadden M.D. [facility] Procedures CT Chest without IV Contrast [address] [place], [place] [phone] Referral ID Status Reason Start Date Expiration Date Visits Requ ested Visits Authorized [id number] Closed 02/27/2020 02/26/2021 1 1 MRI/CAT/PET Scan (Routine) - Closed Specialty Diagnoses / Procedures Referred By Contact Refer red To Contact Radiology Diagnoses Carcinoid Tumor Malignant (HCC) Mikhail Mcfadden M.D. [facility] Procedures MR Abdomen without and with IV Contrast [address] [place], [place] [phone] Referral ID Status Reason Start Date Expiration Date Visits Requ ested Visits Authorized [id number] Closed 02/27/2020 02/26/2021 1 1 Reason for Visit Outpatient (Routine) - Closed Specialty Diagnoses / Procedures Referred By Contact Refer red To Contact Oncology Mikhail Mcfadden M. D. [facility] [address] [place] [phone] Referral ID Status Reason Start Date Expiration Date Visits Requ ested Visits Authorized [id number] Closed 10/11/2019 10/10/2020 1 1 Encounter Details Date Type Department Care Team Description 02/27/2020 Office Visit Department of Oncology Mikhail Mcfadden, [place] Mal[place] (H[place]) [address] (Primary Dx) [address] [place] [phone] Social History Tobacco Use Types Packs/Day Years [...] or relatives? How often do you attend orthodoxy or More than 4 times per year 09/30/2019 voodoo services? Do you belong to any clubs or Yes 09/30/2019 organizations such as orthodoxy groups, unions, fraternal or athletic groups, or [...] have completed or the highest Darrin, MEd, PACKAGE LINER, BERTHA) degree you have received? Sex Assigned at Date Recorded Not on file documented as of this encounter Last Filed Vital Signs Vital Sign Reading Time Taken Comments Blood Pressure 121/62 02/27/2020 4:21 PM CDT Pulse 51 02/27/2020 4:21 PM CDT Temperature 36.3 ??C (97.3 ??F) 02/27/2020 4:21 PM CDT Respiratory Rate - - Oxygen Saturation 97% 02/27/2020 4:21 PM CDT Inhaled Oxygen Concentration - - Weight 93.7 kg (206 lb 9.1 oz) 02/27/2020 4:21 PM CDT Height 175.1 cm (5' 8.94) 02/27/2020 4:21 PM CDT Body Mass Index 30.56 02/27/2020 4:21 PM CDT documented in this encounter Progress Notes Mikhail Mcfadden M.D. - 02/27/2020 4:15 PM CDT Referring Provider: Mikhail Mcfadden M.D. [address] [place] [phone] Primary oncologist: Dr. Aldridge Staffing oncologist: Dr. Trenton Jameson Primary fellow: Dr. 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 SUBJECTIVE Mr. Villeda is a very pleasant 74-year-old gentleman with a history most notable for [...] Salvage prostatectomy and bilateral pelvic LN dissection (Juncos 3 + 4, extraprostatic extension focally present, [...] 490). September 20, 2018: Transition to octreotide LAR at unknown dose. Symptoms remained improved. October 11, 2019: Initial evaluation at [facility]. ?? Review of outside DOTATATE scan [...] Mr. Villeda continues to do well. He denies regular flushing episode, gnawing abdominal pain, or persistent diarrhea. On 2 occasions in the last few months, he has experienced epigastric pain lasting approximately 20 hours before resolving spontaneously. The most recent episode was2 months ago. There were no other associated symptoms. His local providers suspect these episodes are secondary to gallstones. Otherwise, he denies bony pain, constitutional symptoms, and weight loss. He denies cardiopulmonary symptoms but notes chronic fatigue. He was able to bike 16 miles over the weekend. He exercises approximately every other day, walking 2-3 miles at a time. He estimates that he could walk 5 miles beforeneeding to break for fatigue. Review of systems: All other systems negative [...] level. 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 He is to [place] with no children. He hopes to take up photography. He is a never smoker. Family History: Per EMR OBJECTIVE Vitals: 02/27/20 1621 BP: 121/62 Patient Position: Sitting Pulse: (!) 51 Temp: 36.3 ??C Height: 175.1 cm Weight: 93.7 kg SpO2: 97% TempSrc: Tympanic Body surface area is 2.13 meters squared. Physical exam: General: No acute distress. ECOG 0. HEENT: Hearing grossly intact. Moist mucous membranes with no lesions or mucositis appreciated. Lymph: No appreciable cervical, supraclavicular, axillary, or inguinal lymphadenopathy. Heart: Rate controlled. Irregular rhythm. Mild systolic ejection murmur at the apex. Lungs: Clear to auscultation bilaterally. Abdomen: Soft and non-tender with no [...] bowel; metastatic to liver, bone, and lymph nodes # Macrocytosis # Juncos 4 + 3 adenocarcinoma of the prostate (pT3a, N0, MX), diagnosed 2006; status post high-intensity focused ultrasound in 2007 ([place]) s/p salvage prostatectomy and bilateral pelvic LN dissection (2013) It was a pleasure to see Mr. Villeda in follow-up. He is essentially asymptomatic from his neuroendocrine tumor. Today's imaging shows stable disease of the liver, bone, and lymph nodes. We will follow his disease with MRI liver and CT chest every 4 months. Repeat TTE every couple of years (next [id number]). He is receiving octreotide LAR 20 mg [...] BILLING I personally spent a total of 30 minutes face to face with the patient with over half of that time in counseling and discussion and/or coordination of care as described above. documented in this encounter Plan of Treatment Scheduled Referrals Name Type Priority Associated Diagnoses Order [facility] Oncology office Outpatient Referral Routine Expec rosalba: visit (clinic) 07/31/2020 (Approximate), Expires: 02/26/2023 documented as of this encounter Results MR Abdomen without and with IV Contrast (07/23/2020 4:56 PM HOMEBIRTH MIDWIFE) Anatomical Region Laterality Modality Abdomen, Abdominal RST LOS, Abdominal ARZ LOS, N/A Magnetic Resonance Abdominal FLA LOS Specimen (Source) Anatomical Collection Method Collection Time Re ceived Time Location / / Volume Laterality 07/24/2020 8:05 AM HOMEBIRTH MIDWIFE Impressions 07/24/2020 8:22 AM HOMEBIRTH MIDWIFE Hepatic metastases are stable to slightly decreased in size since 02/27/2020. Metastatic adenopathy and bon y metastases are all stable. No new or enlarging metastatic disease identified in the abdomen. Narrative 07/24/2020 8:22 AM HOMEBIRTH MIDWIFE EXAM: ??MR ABDOMEN WITHOUT AND WITH IV [...] best seen on diffusion-weighted images. For example jillian beebe largest lesion now measures 16 mm in [...] abdomen. Innumerable bony metastases evident in t abiel spine are stable. Right renal cysts are [...] metastatic disease identified in the abdomen. Mikhail LEEG MRI PROCEDURES CT Chest without IV Contrast (07/23/2020 1:49 PM HOMEBIRTH MIDWIFE) Anatomical Region Laterality Modality Chest, Thoracic RST LOS, Thoracic ARZ N/A Co mputed Tomography, Computed LOS, Thoracic FLA LOS Tomography Specimen (Source) Anatomical Collection Method Collection Time Re ceived Time Location / / Volume Laterality 07/23/2020 2:45 PM HOMEBIRTH MIDWIFE Impressions 07/23/2020 2:56 PM HOMEBIRTH MIDWIFE 1. Subtle lytic and sclerotic lesions throughout skeleton, compatible with metastatic disease. 2. Azygoesophageal, internal mammary and retrocrural nodes that have enlarged are also concerning for metastatic disea se. Narrative 07/23/2020 2:56 PM HOMEBIRTH MIDWIFE EXAM: CT CHEST WITHOUT IV CONTRAST COMPARISON: [...] workstation as ordered by the treating p romahendra and reviewed by the radiologist to increase sensitivity for detection of pulmonary nodules. IMPRESSION: 1. Subtle lytic and sclerotic lesions th roughout skeleton, compatible with metastatic disease. 2. Azygoesophageal, internal mammary and retrocrural nodes that have enlarged are also concerning for metastatic disea se. Mikhail Mcfadden M.D. IMG CT PROCEDURES Creatinine with Estimated GFR (07/23/2020 1:25 PM HOMEBIRTH MIDWIFE) P athologist Signature Creatinine 1.09 0.74 - 07/23/2020 DTL 1.35 mg/dL 2:19 PM HOMEBIRTH MIDWIFE eGFR-Non 66 >=60 07/23/2020 DTL Black/ mL/min/BSA 2:19 PM HOMEBIRTH MIDWIFE Angolan Comment: ----ADDITIONAL INFORMATION---- Estimated GFR calculated using the 2009 CKD_EPI creatinine equation. eGFR-Black/ 76 >=60 mL/min/BSA 2019 2:19 PM HOMEBIRTH MIDWIFE DTL Comment: ----ADDITIONAL INFORMATION---- Estimated GFR calculated using the 2009 CKD_EPI creatinine equation. Specimen Anatomical Collection Method Collection Time Receive d Time (Source) Location / / Volume Laterality Blood (Blood, 07/23/2020 1:25 PM 07/23/20 20 2:02 Venous) HOMEBIRTH MIDWIFE PM HOMEBIRTH MIDWIFE Mikhail Mcfadden M.D. LAB BLOOD ADD-ON Performing Organization Address City/State/[facility] Code Phon e Number [facility] - [address] [place] [phone] [facility] [place] [address] Laboratories-[facility] 200 [facility] (ABNORMAL) CBC with Differential, Blood (07/23/2020 1:25 PM HOMEBIRTH MIDWIFE) [facility] Method Time Signature Hemoglobin 13.7 13.2 - 07/23/2020 DTL 16.6 g/dL 1:56 PM HOMEBIRTH MIDWIFE Hematocrit 40.5 38.3 - 07/23/2020 DTL 48.6 % 1:56 PM HOMEBIRTH MIDWIFE Erythrocytes 4.11 (L) 4.35 - 07/23/2020 DTL 5.65 1:56 PM HOMEBIRTH MIDWIFE x10(12)/L MCV 98.5 (H) 78.2 - 07/23/2020 DTL 97.9 fL 1:56 PM HOMEBIRTH MIDWIFE RBC Distrib Width 12.4 11.8 - 07/23/2020 DTL 14.5 % 1:56 PM HOMEBIRTH MIDWIFE Platelet Count 214 135 - 317 07/23/2020 DTL x10(9)/L 1:56 PM HOMEBIRTH MIDWIFE Leukocytes 5.0 3.4 - 9.6 07/23/2020 DTL x10(9)/L 1:56 PM HOMEBIRTH MIDWIFE Neutrophils 2.37 1.56 - 07/23/2020 DTL 6.45 1:56 PM HOMEBIRTH MIDWIFE x10(9)/L Lymphocytes 1.77 0.95 - 07/23/2020 DTL 3.07 1:56 PM HOMEBIRTH MIDWIFE x10(9)/L Monocytes 0.66 0.26 - 07/23/2020 DTL 0.81 1:56 PM HOMEBIRTH MIDWIFE x10(9)/L Eosinophils 0.16 0.03 - 07/23/2020 DTL 0.48 1:56 PM HOMEBIRTH MIDWIFE x10(9)/L Basophils <0.03 0.01 - 07/23/2020 DTL 0.08 1:56 PM HOMEBIRTH MIDWIFE x10(9)/L Specimen Anatomical Collection Method Collection Time Receive d Time (Source) Location / / Volume Laterality Blood (Blood, 07/23/2020 1:25 PM 07/23/20 20 1:49 Venous) HOMEBIRTH MIDWIFE PM HOMEBIRTH MIDWIFE Mikhail Mcfadden M.D. 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
--- OUTSIDE RECORDS SUMMARY | 2022-06-06 12:13 | XMS_ITS | Encounter Summary ---
:1945 Author Organization [facility] Address [address] [place] [address] Care Team Providers Name Role Phone Unavailable Primary Care Provider Unavailable Reason for Referral Outpatient (Routine) - Closed Specialty Diagnoses / Procedures Referred By Contact Refer red To Contact Diagnoses Transient Ischemic Attack Melanie Lopez M.D. [facility] Procedures ECG 12 [address] [place] [phone] Referral ID Status Reason Start Date Expiration Date Visits Requ ested Visits Authorized [id number] Closed 10/27/2019 10/26/2020 1 1 RVISORY CLERK Outpatient (Routine) - Closed Specialty Diagnoses / Procedures Referred By Contact Refer red To Contact Diagnoses Transient Ischemic Attack Melanie Lopez M.D. [facility] Procedures Echo Transthoracic (TTE) - Complex Valvular Heart Disease [address] [place] [address] Referral ID Status Reason Start Date Expiration Date Visits Requ ested Visits Authorized [id number] Closed 10/27/2019 10/26/2020 1 1 RVISORY CLERK Encounter Details Date Type Department Care Team Description 10/27/2019 Clinical Communication Department of Melanie Lopez Cardiovascular Medicine Dago Gill in [facility] rotating equipment engineer [address] [facility] [address] [place] [phone] Social History Tobacco Use Types Packs/Day Years [...] More than 4 times per year 09/30/2019 anabaptist services? Do you belong to any clubs [...] have completed or the highest Darrin, MEd, LEASING SPECIALIST, BERTHA) degree you have received? Sex Assigned at Date Recorded Not on file documented as of this encounter Plan of Treatment Not on filedocumented as of this encounter Results (TTE) 2D ECHO DOPPLER COLOR (04/05/2020 12:32 PM CDT) [facility] Method Time Signature Ejection Fraction 61 MC [...] effusion. For the complete report, see the [employer] Documents. Narrative 04/05/2020 3:11 PM CDT For the complete report, see the [employer] Documents. Final Impressions 1. Aortic valve strands [...] the Order-L evel Documents. Final Impressions 1. Aortic valve strands [...] complete report, see the Order-L evel Documents. Melanie Lopez M.D. CV ECHO PROCEDURES ECG 12 Lead (04/05/2020 9:38 AM CDT) P athologist Signature Ventricular Rate 54 BPM MUSE ECG/Min MS Interval 152 ms MUSE QRSD Interval 102 ms MUSE QT Interval 450 ms MUSE QTC Interval 426 ms MUSE P [place] 28 degrees MUSE R [place] -23 degrees MUSE T Wave [place] 17 degrees MUSE Specimen Anatomical Collection Method Collection Time Receive d Time (Source) Location / / Volume Laterality 04/05/2020 9:38 AM 0 9:39 CDT AM CDT Impressions MUSE - 04/05/2020 9:39 AM CDT Sinus bradycardia Otherwise normal ECG When compared with ECG of 02-DEC-2013 08 :58, No significant change was found Reviewed by KENDALL Christian Narrative This result has an attachment that is no t available. Procedure Note Alex Carter M.D. - 04/05/2020Formatti ng of this note might be different from the original. IMPRESSION: Sinus bradycardia Otherwise normal ECG When compared with ECG of 02-DEC-2013 08 :58, No significant change was found Reviewed by KENDALL Christian Melanie Lopez M.D. ECG ORDERABLES Performing Organization Address City/State/ZIP Code Phon e Number MUSE MUSE NA DX Chest AP or PA and Lateral 2 Views (04/05/2020 9:18 AM CDT) Anatomical Region Laterality Modality Chest, Thoracic RST LOS, Thoracic ARZ LOS, Thoracic N/A Digital Radiography FLA LOS Specimen (Source) Anatomical Collection Method Collection Time Re ceived Time Location / / Volume Laterality 04/05/2020 9:20 AM CDT Impressions 04/05/2020 9:21 AM CDT Mildly tortuous aorta. Anterior wedging of a midthoracic vertebral body. Slight scarring in the lung bases. No significant change since 11/13/2008. Narrative 04/05/2020 9:21 AM CDT EXAM: ??DX CHEST AP OR PA AND LATERAL 2 VIEWS Procedure Note Truman Chavez M.D. - 04/05/2020Forma tting of this note might be different from the original. EXAM: DX CHEST AP OR PA AND LATERAL 2 EWS IMPRESSION: Mildly tortuous aorta. Anterior wedging of a midthoracic vertebral body. Slight scarring in the lung bases. No significant change since 11/13/2008. Melanie Lopez M.D. IMG DIAGNOSTIC IMAGING PROCE DURES (ABNORMAL) NT-Pro B-Type Natriuretic Peptide (BNP) (02/27/2020 10:36 AM CDT) athologist Signature NT-Pro BNP 161 (H) <=113 [...] Address City/State/ZIP Code Phon e Number [facility] - [address] [place], [place] [phone] [facility] [place] [address] [address]-[facility] [address] (ABNORMAL) Lipid Panel (02/27/2020 10:36 AM CDT) athologist Signature Cholesterol, 205 (H) mg/dL 02/27/2020 [...] M.D. LAB BLOOD ADD-ON Performing Organization Address City/[facility] Phon e Number [facility] - [address] S-TSH (Thyroid-Stimulating Hormone - Sensitive) (02/27/2020 10:36 AM CDT) P athologist Signature TSH, Sensitive 1.0 0.3 - 4.2 02/27/2020 DTL mIU/L 1:28 PM CDT Specimen Anatomical Collection Method Collection Time Receive d Time (Source) Location / / Volume Laterality Blood (Blood, 02/27/2020 10:36 02/27/2020 Venous) AM CDT 12:47 PM CDT Melanie Lopez M.D. LAB BLOOD ADD-ON Performing Organization Address City/[facility] Phon e Number [facility] - [address] (ABNORMAL) Prothrombin Time (PT) (02/27/2020 10:36 [...] M.D. LAB BLOOD ADD-ON Performing Organization Address City/[facility] Phon e Number [facility] - [address] [place] [address] Laboratories-[address] (ABNORMAL) Glucose, Fasting (02/27/2020 10:36 AM CDT) P athologist Signature Glucose, P 109 (H) 70 - 100 02/27/2020 DTL mg/dL 1:21 PM CDT Last Intake 16 hr 02/27/2020 DTL 12:52 PM CDT Specimen Anatomical Collection Method Collection Time Receive d Time (Source) Location / / Volume Laterality Blood (Blood, 02/27/2020 10:36 02/27/2020 Venous) AM CDT 12:52 PM CDT Authorizing Provider Result Caio Lopez M.D. LAB BLOOD NON ADD-ON Performing Organization Address City/[facility] Phon e Number [facility] - [address] [place] [phone] [facility] [place] [address] Laboratories-[address] documented in this encounter Visit Diagnoses Diagnosis Transient Ischemic Attack - Primary Transient Ischemic Attack Transient Ischemic Attack documented in this encounter
--- OUTSIDE RECORDS SUMMARY | 2022-06-06 12:13 | XMS_ITS | Encounter Summary ---
:1945 Author Organization [facility] Address [address] [place] [address] Care Team Providers Name Role Phone Unavailable Primary Care Provider Unavailable Encounter Details Date Type Department Care Team Description 10/11/2019 Ancillary Procedure Department of Bogdan, Mikhail Anna noid Syndrome (HCC); Radiology in [place]. Carcinoid Ileum Malignant (HCC) [place], [place] [address] [facility] [address] [place] [phone] Social History Tobacco Use Types Packs/Day Years [...] More than 4 times per year 09/30/2019 religion services? Do you belong to any clubs [...] have completed or the highest Darrin, MEd, NET [employer] DEVELOPER, BERTHA) degree you have received? Sex Assigned at Date Recorded Not on file documented as of this encounter Plan of Treatment Not on filedocumented as of this encounter Procedures Procedure Name Priority Date/Time Associated Comments Diagnosis INTERPRETATION OF RAD - Routine 10/12/2019 8:59 Carcinoid Result s for OUTSIDE NM PET SCAN (most inpatients AM PEDAL ASSEMBLER Syndrome ([facility]) this procedure and all Carcinoid Ileum are in the outpatients) Malignant (HCC) results section. documented in this encounter Results Interpretation of Outside NM PET Scan (10/12/2019 8:59 AM PEDAL ASSEMBLER) Anatomical Region Laterality Modality Nuclear Medicine PET RST LOS, Nuclear Medicine ARZ NICKY, N/A Nuclear Medicine Nuclear Medicine FLA LOS, Nuclear Medicine, Other Specimen (Source) Anatomical Collection Method Collection Time Re ceived Time Location / / Volume Laterality 10/12/2019 10:02 AM PEDAL ASSEMBLER Impressions 10/12/2019 12:50 PM PEDAL ASSEMBLER 1. Slight increase in size of mesenteric mass dating back to initial CT 09/20/2008, consistent with neuroendocri ne marychuy disease. Possible primary focus in adjacent loop of ileum. 2. Diffuse somatostatin receptor positiv e disease involving axial and appendicular skeleton, lymph nodes and l iver. Findings likely represent dedifferentiation of a neuroendocrine tu mor, however dedifferentiated prostatic malignancy is also a possibility. 3. Right thyroid nodule, new compared to CT 04/14/2013 and increase in size compared to 08/26/2019. Ultrasound may b e advised to further assess. Krenning score of 4 Narrative 10/12/2019 12:50 PM PEDAL ASSEMBLER EXAM: ??INTERPRETATION OF OUTSIDE NM PET SCAN. Interpretation of outside PET/CT 10/07/2019. TECHNIQUE: ??Ga-68 Dotatate PET/CT scan was performed from the vertex through the toes with CT fusion imaging for attenuat ion correction and anatomic coregistration only, with imaging beginn ing at approximately 60 minutes after radiotracer injection. ?? COMPARISON: ??CT chest, abdomen and pelv is 08/26/2019 and choline PET/CT 11/29/2013. Recent choline PET/CT as all uded to in the clinical notes is not available at time of reporting. INDICATION: History of grade 1 neuroendo crine carcinoma diagnosed in 2008. Followed with active surveillance to Sep with transition to octreotide. Prostate adenocarcinoma diagnosed in 7, treated with prostatectomy and lymph node dissection in 2013. FINDINGS: ?? Large mass in the small bowel mesentery measures 42 x 33 mm and demonstrates marked DOTATATE activity with an SUV max of 64.9 (PET image 349). Mass is unchanged in size compared to recent CT 08/26/2019, however increased marginally in size compared to initial CT 9 where it measured 15 x 26 mm (series 3, image 44). Of note the small bowel mesenteric mass was positive on the remote prior choline PET/CT 11/29/2013. Subtle focus of wall thickening in a loo p of small bowel in the right lower quadrant with associated delayed activit y (image 331/CT image 166). Findings may represent the primary neuroendocrine les ion in the GI tract. Multiple sclerotic lesions throughout th e axial and appendicular skeleton including the skull base (PET image 93). For instance, the radiotracer avid lesion in the sternum demonstrates an ARREOLA V max of 38 (image 215). Multiple, DOTATATE avid lymph nodes in t he prevascular (image 201), subcarinal (image 216), retrocrural (PET image 283, 293), retroperitoneal (image 309-347) and mesenteric (image 312-341) regions, consistent with marychuy neuroendocrine malignancy. Focus of persistent activity in segment of the liver demonstrates an SUV max of 29.6 (image 290). Correlating ill-def ined low-attenuation on the contrast-enhanced CT images measuring 13 x 13 mm (CT image 146). Similar focus in the caudate lobe (image 267). Slight heterogeneity of the hepatic parenchyma on the PET images, particularly at the h epatic dome, may indicate subtle diffuse hepatic metastasis. Significant, incidental findings on the CT images: Right thyroid nodule measuring 15 x 11 m m, without associated activity mild aortic and coronary artery calcification . Hepatic and renal cysts. Colonic diverticulosis. Status post prostatectom y. Bilateral inguinal hernias, containing only fat. Procedure Note Noé Mary M.D. - 10/12/2019Format ting of this note might be different from the original. EXAM: INTERPRETATION OF OUTSIDE NM PET S CAN. Interpretation of outside PET/CT 10/07/2019. TECHNIQUE: Ga-68 Dotatate PET/CT scan wa s performed from the vertex through the toes with CT fusion imaging for attenuat ion correction and anatomic coregistration only, with imaging beginn ing at approximately 60 minutes after radiotracer injection. COMPARISON: CT chest, abdomen and pelvis 08/26/2019 and choline PET/CT 11/29/2013. Recent choline PET/CT as all uded to in the clinical notes is not available at time of reporting. INDICATION: History of grade 1 neuroendo crine carcinoma diagnosed in 2008. Followed with active surveillance to Sep with transition to octreotide. Prostate adenocarcinoma diagnosed in 200 7, treated with prostatectomy and lymph node dissection in 2013. FINDINGS: Large mass in the small bowel mesentery measures 42 x 33 mm and demonstrates marked DOTATATE activity with an SUV max of 64.9 (PET image 349). Mass is unchanged in size compared to recent CT 08/26/2019, however increased marginally in size compared to initial CT 9 where it measured 15 x 26 mm (series 3, image 44). Of note the small bowel mesenteric mass was positive on the remote prior choline PET/CT 11/29/2013. Subtle focus of wall thickening in a loo p of small bowel in the right lower quadrant with associated delayed activit y (image 331/CT image 166). Findings may represent the primary neuroendocrine les ion in the GI tract. Multiple sclerotic lesions throughout th e axial and appendicular skeleton including the skull base (PET image 93). For instance, the radiotracer avid lesion in the sternum demonstrates an ARREOLA V max of 38 (image 215). Multiple, DOTATATE avid lymph nodes in t he prevascular (image 201), subcarinal (image 216), retrocrural (PET image 283, 293), retroperitoneal (image 309-347) and mesenteric (image 312-341) regions, consistent with marychuy neuroendocrine malignancy. Focus of persistent activity in segment of the liver demonstrates an SUV max of 29.6 (image 290). Correlating ill-def ined low-attenuation on the contrast-enhanced CT images measuring 13 x 13 mm (CT image 146). Similar focus in the caudate lobe (image 267). Slight heterogeneity of the hepatic parenchyma on the PET images, particularly at the h epatic dome, may indicate subtle diffuse hepatic metastasis. Significant, incidental findings on the CT images: Right thyroid nodule measuring 15 x 11 m m, without associated activity mild aortic and coronary artery calcification . Hepatic and renal cysts. Colonic diverticulosis. Status post prostatectom y. Bilateral inguinal hernias, containing only fat. IMPRESSION: 1. Slight increase in size of mesenteric mass dating back to initial CT 09/20/2008, consistent with neuroendocri ne marychuy disease. Possible primary focus in adjacent loop of ileum. 2. Diffuse somatostatin receptor positiv e disease involving axial and appendicular skeleton, lymph nodes and l iver. Findings likely represent dedifferentiation of a neuroendocrine tu mor, however dedifferentiated prostatic malignancy is also a possibility. 3. Right thyroid nodule, new compared to CT 04/14/2013 and increase in size compared to 08/26/2019. Ultrasound may b e advised to further assess. 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
--- OUTSIDE RECORDS SUMMARY | 2022-06-06 12:13 | XMS_ITS | Encounter Summary ---
:1945 Author Organization [facility] Address [address] [place] [id number] Care Team Providers Name Role Phone Unavailable Primary Care Provider Unavailable Reason for Visit Outpatient (Routine) - Closed Specialty Diagnoses / Referred By Contact Referred To Contact Procedures Cardiovascular Diseases / Diagnoses Transient Ischemic Attack Yadira Mar, [facility] [address] [place] [phone] Referral ID Status Reason Start Date Expiration Date Visits Requ ested Visits Authorized [id number] Closed 10/05/2019 10/04/2020 1 1 Encounter Details Date Type Department Care Team Description 04/05/2020 Comprehensive Visit Department of Glass, Thrombo sis Deep Vein Personal History (Primary Dx); Cardiovascular Shahid Rios Personal History Of Malignant Neoplasm O f Prostate; Medicine in [place], [facility] Pulmonary Personal History; [facility] Carcinoid Tumor Malignant (HCC); [address] [place] [address], Atrial Fibrillation Paroxysm al (HCC); [facility] Flutter Atrial (HCC); [id number] Transient Ischemic Attack [phone] Social History Tobacco Use Types Packs/Day Years [...] More than 4 times per year 09/30/2019 restorationist services? Do you belong to any clubs or Yes 09/30/2019 organizations such as religion groups, unions, [employer] or athletic groups, or school groups? How [...] have completed or the highest Darrin, MEd, DRIVE IN WAITER/WAITRESS, BERTHA) degree you have received? Sex Assigned at Date Recorded Not on file documented as of this encounter Last Filed Vital Signs Vital Sign Reading Time Taken Comments Blood Pressure 104/76 04/05/2020 3:01 PM CDT Pulse 68 04/05/2020 3:01 PM CDT Temperature - - Respiratory Rate - - Oxygen Saturation - - Inhaled Oxygen Concentration - - Weight 95.5 kg (210 lb 8.6 oz) 04/05/2020 3:01 PM CDT Height 179.5 cm (5' 10.67) 04/05/2020 3:01 PM CDT Body Mass Index 29.64 04/05/2020 3:01 PM CDT documented in this encounter Consult Notes Floridalma Hughes APRN, C.NMarcel. - 04/05/2020 4:00 PM CDT Images from the original note were not included. Referring Physician: Yadira Mar P.A.-C. Office Phone #: [phone] Chief Complaint: Atrial septal aneurysm HPI: Mr. Ricky Villeda is a 74 year old male who cardiology has been asked to comment on echocardiogram findings of atrial septal aneurysm and tiny valvular strands on the thickened aortic valve. ?? His past medical history includes paroxysmal atrial fibrillation (dx 2010), paroxysmal atrial flutter (10/02/2016), DVT and PE (10/02/2016), and CVA (10/15/2018). Other history includes bilateral knee replacements, prostate cancer s/p prostatectomy (02/08/2014), and neuroendocrine carcinoma. Carcinoma was d iagnosed in 2008. Patient is currently on Octreotide. No prior radiation or chemotherapy. Now known to be metastatic to liver, bone, and lymph nodes. ?? It appears he had one episode of atrial fibrillation in 2010, with spontaneous conversion and no recurrence. In regards to the DVT/PE, patient underwent total left knee arthroplasty 09/09/2016 and took12 days Eliquis for post-op VTE prophylaxis. On 10/02/2016, he was noted to be tachycardic. He went to the ED and was found to be in atrial flutter, with DVT and PE. He was cardioverted and discharged on sotalol and 3 months rivaroxaban; after 3 months he was started on baby aspirin. In regards to the CVA, he presented to the ED 10/15/2018 with acute stroke with multiple foci in the right frontoparietal, subcortical, and deep white matter. Etiology was thought to be cardioembolic. He was started on Eliq uis which was later transitioned to Warfarin. Tranesphogeal Echocardiogram completed on 10/04/2019: no intracardiac mass or thrombus. Borderline enlarged left atrial size (qualitative assessment). No left atrium or left atrial appendage thrombus. Atrial septal aneurysm. No shunt observed at the atrial level on color or agitated saline contrast study. Thickened aortic valve with tiny valvular strands. No tumor or vegetation observed. No functionalabnormalities. Normal left ventricular chamber size. Estimated ejection fraction 55%. Abnormal septal motion (nonspecific). No regional wall motion abnormalities. Mild-moderately enlarged right ventricular chamber size. Normal systolic function. Weak tricuspid regurgitant signal so the right ventriclesystolic pressure could not be estimated. 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 Transthoracic Echocardiogram on 04/05/2020 shows: Aortic valve strands (longest measuring 7 mm). Normal left ventricular chamber size. Calculated ejection fraction 61%. No regional wall motion abnormalities.Grade 1/4 left ventricular diastolic dysfunction, consistent with low to normal left ventricular filling pressure. Mildly enlarged right ventricular chamber size with normal systolic function. Estimated right ventricular systolic pressure 30 mmHg (systolic blood pressure 126 mmHg). Normal inferior vena cava size with normal inspiratory collapse (>50%).LEFT VENTRICLE: Normal left ventricular chamber size. Normal left ventricular wall thickness. Left ventricular mass index by 2D 99 g/m2. Ca lculated 2-D four chamber monoplane volumetric left ventricular ejection fraction 61 %. No regional wall motion abnormalities. Grade 1/4 left ventricular diastolic dysfunction, consistent with low to normal left ventricular filling pressure. RIGHT VENTRICLE: Mildly enlarged right ventricular chamber size. Normal right ventricular systolic function. Estimated right ventricular systolic pressure 30 mmHg (systolic blood pressure 126 mmHg). ATRIA: Severely enlarged left atrial size. Left atrial folume index 50 ml/m2. Enlarged right atrial size by visual estimate. CARDIAC VALVES: Trileaflet aortic valve. Thickened aortic valve. Aortic valve strands. No aortic valve regurgitation. Thickened mitral valve. Trivial mitral valve regurgitation. Normal pulmonary valve. Normal pulmonary valve systolic velocity. Trivial pulmonary valve regurgitation. Normal tricuspid valve. Mild tricuspid valve regurgitation.OTHER ECHO FINDINGS: Normal inferior vena cava size with normal inspiratory collapse (>50%). Normal ascending aorta diameter (upper limit of normal for age, sex and BSA is 43 mm). No abdominal aortic aneurysm. Normal abdominal aorta Doppler flow pattern. Atrial septal aneurysm. No atrial level shunt by color flow imaging. No intracardiac mass or thrombus, but the left atrial appendage cannot be vis ualized adequately with transthoracic echo to exclude thrombus in this location. No pericardial effusion. Patient presents to clinic today with his and notes he remains very active. Patient notes he rides his bike approximately 20 miles at least 2 to 3 times a week without difficulty. Patient denies any shortness of breath, chest pain, dizziness, lightheadedness, syncope, significant edema, PND, or orthopnea. The patient notes in September of this year he was transitioned to warfarin. Patient notes heis tolerating warfarin well with stable INRs. Patient notes his only residual deficits from prior CVA's is difficulty at times with short-term recall. Allergies: Allergies Allergen Reactions ??? Naproxen GI intolerance ??? Soap Rash Dial soap Medications: Current Medications: ??? octreotide acetate (SANDOSTATIN) 50 mcg/mL (1 mL) injection, every 28 (twenty-eight) days. ??? SandoSTATIN 50 mcg/mL injection, ??? sotalol (BETAPACE) 80 mg tablet, 2 (two) times a day. ??? warfarin (COUMADIN) 5 mg tablet, ROS: 10 point review of systems, completed. Pertinent positives as listed in history of present illness and past cardiac history. Family History: Family History Problem Relation Age of Onset ??? Dementia Mother ??? Aneurysm Mother ??? Carotid endarterectomy Mother ??? Heart failure Father ??? CABG - Coronary artery bypass graft Father ??? Carotid endarterectomy Brother Social History: Social History Socioeconomic History ??? Marital status: Spouse name: Not on file ??? Number of children: 0 ??? Years of education: Not on file ??? Highest education level: Master's degree (e.g., MA, MS, Darrin, MEd, DRIVE IN WAITER/WAITRESS, BERTHA) Occupational History ??? Not on file Social Needs ??? Financial resource strain: Not hard at all ??? Food insecurity Worry: Never true Inability: Never true ??? Transportation needs Medical: No Non-medical: No Tobacco Use ??? Smoking status: Never Smoker ??? Smokeless tobacco: Never Used Substance and Sexual Activity ??? Alcohol use: Yes Alcohol/week: 2.0 - 3.0 standard drinks Types: 2 - 3 Glasses of wine per week Frequency: 2-4 times a month Drinks per session: 1 or 2 Binge frequency: Never ??? Drug use: Never ??? Sexual activity: Not Currently Partners: Female control/protection: None Lifestyle ??? Physical activity Days per week: 5 days Minutes per session: 50 min ??? Stress: Not at all Relationships ??? Social connections Talks on phone: More than three times a week Gets together: More than three times a week Attends restorationist service: More than 4 times per year Active member of club or organization: Yes Attends meetings of clubs or organizations: More than 4 times per year Relationship status: ??? Intimate partner violence Fear of current or ex partner: Not on file Emotionally abused: Not on file Physically abused: Not on file Forced sexual activity: Not on file Other Topics Concern ??? Not on file Social History Narrative ??? Not on file The following portions of the patient's history were reviewed and updated as appropriate: allergies,current medications, family history, medical history, social history, surgical history and problem list. Vital Signs: BP 104/76 (BP Location: Left arm, Patient Position: Sitting, Cuff Size: Large) Pulse 68 Ht 179.5 cm Wt 95.5 kg BMI 29.64 kg/m?? Physical Exam: General: Alert, oriented times 3; pleasant and appropriate. Normal body habitus. Eye: No xanthelasma or conjunctivitis. EOM intact ENT: Dentition in good repair, buccal mucosa moist and intact. Vessels: Carotid upstroke normal, no carotid bruits. JVP is normal. DP/PT pulses 3/3 bilaterally. Heart: Normal carotid palpation. PMI not displaced. Normal S1, S2. No murmurs, gallops, or rubs. Jugular venous pressure and pulsation normal. Pulmonary: Normal respiratory effort and air movement. Lungs are clear in all mims on anterior andposterior auscultation. Abdomen: Soft, nondistended. No hepatosplenomegaly. No masses or tenderness. Bowel sounds present inall four quadrants. Extremities: No clubbing or cyanosis, no lower extremity edema. Gait: Normal, independent. Skin: No erythema, stasis dermatitis or ulcerations appreciated. Report: Lab/Tests: Ref. Range 02/27/2020 10:36 02/27/2020 11:44 Hemoglobin Latest Ref Range: 13.2 - 16.6 g/dL 14.5 Hematocrit Latest Ref Range: 38.3 - 48.6 % 43.2 Erythrocytes Latest Ref Range: 4.35 - 5.65 x10(12)/L 4.32 (L) MCV Latest Ref Range: 78.2 - 97.9 fL 100.0 (H) RBC Distrib Width Latest Ref Range: 11.8 - 14.5 % 12.7 Platelet Count Latest Ref Range: 135 - 317 x10(9)/L 216 White Blood Cell Count Latest Ref Range: 3.4 - 9.6 x10(9)/L 4.2 Neutrophils Latest Ref Range: 1.56 - 6.45 x10(9)/L 2.28 Lymphocytes Latest Ref Range: 0.95 - 3.07 x10(9)/L 1.18 Monocytes Latest Ref Range: 0.26 - 0.81 x10(9)/L 0.60 Eosinophils Latest Ref Range: 0.03 - 0.48 x10(9)/L 0.15 Basophils Latest Ref Range: 0.01 - 0.08 x10(9)/L <0.03 Prothrombin Time, P Latest Ref Range: 9.4 - 12.5 sec 29.2 (H) INR Latest Ref Range: 0.9 - 1.1 2.6 Sodium, S Latest Ref Range: 135 - 145 mmol/L 143 Potassium, S Latest Ref Range: 3.6 - 5.2 mmol/L 4.5 Chloride, S Latest Ref Range: 98 - 107 mmol/L 106 Bicarbonate, S Latest Ref Range: 22 - 29 mmol/L 26 Anion Gap Latest Ref Range: 7 - 15 11 Bld Urea Nitrog(BUN), S Latest Ref Range: 8 - 24 mg/dL 13 Creatinine, S Latest Ref Range: 0.74 - 1.35 mg/dL 1.01 Creatinine, POCT, B Latest Ref Range: 0.7 - 1.4 mg/dL 0.8 eGFR-Non Black Latest Ref Range: >=60 mL/min/BSA 72 eGFR Non-Black, POCT Latest Ref Range: >=60 mL/min/BSA 87 eGFR-Black Latest Ref Range: >=60 mL/min/BSA 84 eGFR-Black, POCT Latest Ref Range: >=60 mL/min/BSA >90 Calcium, Total, S Latest Ref Range: 8.8 - 10.2 mg/dL 9.4 Glucose, S Latest Units: mg/dL CANCELED Glucose, P Latest Ref Range: 70 - 100 mg/dL 109 (H) Bilirubin, Total, S Latest Ref Range: <=1.2 mg/dL 1.0 Alanine Aminotransferase (ALT), S Latest Ref Range: 7 - 55 U/L 20 Aspartate Aminotransferase (AST), S Latest Ref Range: 8 - 48 U/L 23 Alkaline Phosphatase, S Latest Ref Range: 40 - 129 U/L 85 Protein, Total, S Latest Ref Range: 6.3 - 7.9 g/dL 6.8 Albumin, S Latest Ref Range: 3.5 - 5.0 g/dL 4.2 Last Intake Latest Units: hr 16 NT-Pro BNP, S Latest Ref Range: <=113 pg/mL 161 (H) Cholesterol, Total, S Latest Units: mg/dL 205 (H) Cholesterol, HDL, S Latest Ref Range: >=40 mg/dL 64 Calculated LDL Latest Units: mg/dL 124 Triglycerides Latest Units: mg/dL 86 Non HDL Cholesterol Latest Units: mg/dL 141 TSH, Sensitive, S Latest Ref Range: 0.3 - 4.2 mIU/L 1.0 Chromogranin A, S Latest Ref Range: <93 ng/mL 48 PA & Lateral Chest X-ray 04/05/2020 Mildly tortuous aorta. Anterior wedging of a midthoracic vertebral body. Slight scarring in the lungbases. No significant change since 11/13/2008. ECG 04/05/2020 Sinus bradycardia Otherwise normal ECG When compared with ECG of 02-DEC-2013 08:58, no significant change was found. 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 Glass. Continue with warfarin as anticoagulation. No furthercardiac work up warranted at this time. Patient has follow-up appointment with Vascular Medicine Yadira aMr APRN on 04/10/2020. Please see detailed plan as outlined by Dr. Glass today. Patient andwife state understanding agree with current plan of care. Blanca Glass M.D. - 04/05/2020 4:00 PM CDT This is a supervisory note. I have personally seen and examined the patient with Floridalma Hughes today.I reviewed the note written by her and agree with the findings, assessment and plan. Please refer tothat note for details. Mr. Villeda has history of paroxysmal atrial fibrillation (dx 2010), paroxysmal atrial flutter (10/02/2016), DVT and PE (10/02/2016), CVA (10/15/2018), prostate cancer s/p prostatectomy (02/08/2014), and neuroendocrine carcinoma (2008, stable). He was found to have small strands on AV leaflets by KENDY 10-04-19 as well as interatrial septal aneurysm. She was referred for evaluation regarding aortic valve leaflet strands and interatrial septal aneurysm. I reviewed the KENDY images and think that the interatrial septal aneurysm is small with less than 1cm excursion right to left the [id number] and withoutevidence of shunt. Echocardiogram today shows aortic valve strands as before. However, the prior test was KENDY and the 1 today was transthoracic making comparison a little bit challenging. However, theyseem to stable. There is no indication for additional intervention at this time. We recommend to continue anticoagulation as he is currently doing which would be indicated for this condition as well as his multiple other underlying problems including atrial fibrillation, prior PE, prior stroke in the setting of malignancy. He is tolerating anticoagulation without complications. He verbalized understanding and agreed with the plan. Thank you very much for allowing me to participate in this patient's care. Please let me know if I can provide any further information regarding his case. Very truly yours, Blanca Glass MD. documented in this encounter Plan of Treatment Not on filedocumented as of this encounter Visit Diagnoses Diagnosis Thrombosis Deep Vein Personal History - Primary Personal History Of Malignant Neoplasm O f Prostate Embolus Pulmonary Personal History Carcinoid Tumor Malignant (HCC) Atrial Fibrillation Paroxysmal (HCC) Flutter Atrial (HCC) Transient Ischemic Attack documented in this encounter
--- OUTSIDE RECORDS SUMMARY | 2022-06-06 12:13 | XMS_ITS | Encounter Summary ---
:1945 Author Organization [facility] Address [address] [place] [address] Care Team Providers Name Role Phone Unavailable Primary Care Provider Unavailable Reason for Referral MRI/CAT/PET Scan (Routine) - Closed Specialty Diagnoses / Procedures Referred By Contact Refer red To Contact Radiology Diagnoses Carcinoid Tumor Malignant (HCC) Mikhail Mcfadden M.D. [facility] Procedures CT Chest without IV Contrast CT Chest without and with IV Contrast [address] [place], [place] [id number] Referral ID Status Reason Start Date Expiration Date Visits Requ ested Visits Authorized [id number] Closed 11/02/2019 11/01/2020 1 1 MAKER MAP Encounter Details Date Type Department Care Team Description 11/02/2019 Documentation Department of Oncology in Mikhail Mcfadden M.D. [place], [place] [address] [place] [phone] (Wo rk) Social History Tobacco Use Types Packs/Day Years [...] More than 4 times per year 09/30/2019 orthodoxy services? Do you belong to any clubs [...] have completed or the highest Darrin, MEd, BRINELL TESTER, BERTHA) degree you have received? Sex Assigned at Date Recorded Not on file documented as of this encounter Progress Notes Mikhail Mcfadden M.D. 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 The DOTATATE scan (10/07/2019) shows slight increase in size of mesenteric mass dating back to initial CT 09/20/2008 with possible primary focus in adjacent loop of ileum; diffuse somatostatin receptor positive disease involving axial and appendicular skeleton, other lymph nodes, and liver. MRI of the abdomen shows multiple small enhancing masses with restricted diffusion throughout the liver consistent with metastatic disease; along with pancreatic, marychuy, osseous, and probable soft tissue metastases. His 5-HIAA was slightly elevated at 13.2. Chromogranin A was normal. Plan: I reviewed the case with Dr. Sullivan, who has special expertise with neuroendocrine tumors. We discussed a few items. First, should we biopsy one of the bony lesions to ensure this is still well-differentiated NET? Based on imaging, suspicion for NET is still highest, so we defer biopsy for now and reconsider if there is significant change on subsequent scans. The iliac locations may be reasonable targets. We agree with continuing octreotide LAR that he recently started. He received 20 mg whichcan be increased to 30 mg every 4 weeks, if needed. He may be a candidate for PRRT in the future with progression. We will follow his disease with MRI liver and CT chest every 4 months. Repeat TTE every couple of years. This was discussed with Mrs. Villeda by phone. MAKER MAP documented in this encounter Plan of Treatment Not on filedocumented as of this encounter Results CT Chest without IV Contrast (02/27/2020 1:27 PM CDT) Anatomical Region Laterality Modality Chest, Thoracic RST LOS, Thoracic ARZ N/A Co mputed Tomography, Computed LOS, Thoracic FLA LOS Tomography Specimen (Source) Anatomical Collection Method Collection Time Re ceived Time Location / / Volume Laterality 02/27/2020 3:29 PM CDT Impressions 02/27/2020 3:44 PM CDT 1. No new or enlarging pulmonary nodules concerning for metastatic disease in the chest. 2. Patient has liver metastases by MR ev aluation. Please see same day liver MR exam for additional information. Narrative 02/27/2020 3:44 PM CDT EXAM: CT CHEST WITHOUT IV CONTRAST COMPARISON: 08/26/2019 FINDINGS: Not seen well today due to lack of contr ast is a prior 15 x 11 mm right thyroid nodule (series 3/image 84). Normal sized precarinal lymph node. No adenopathy. Low dense right hepatic lobe lesion cons istent with likely liver cyst. No obvious liver lesions seen with the cave at that there is no IV contrast for evaluation. Patient does have same day l iver MR. Please see that examination for additional information regarding small l iver metastases. Fat-containing right posterior Bochdalek hernia. No soft tissue pulmonary nodules. Periph eral calcified granuloma right lower lobe. Slight scarring in the lung bases. Mild degenerative changes lower thoracic spine. Mild vascular calcificat ion. Chest otherwise negative. 3D maximum intensity projection (MIP) im ages were created on a dependent workstation as ordered by the treating p rovider and reviewed by the radiologist to increase sensitivity for detection of pulmonary nodules. Procedure Note Ascencion Lucia M.D. - 02/27/2020Fo rmatting of this note might be different from the original. EXAM: CT CHEST WITHOUT IV CONTRAST COMPARISON: 08/26/2019 FINDINGS: Not seen well today due to lack of contr ast is a prior 15 x 11 mm right thyroid nodule (series 3/image 84). Normal sized precarinal lymph node. No adenopathy. Low dense right hepatic lobe lesion cons istent with likely liver cyst. No obvious liver lesions seen with the cave at that there is no IV contrast for evaluation. Patient does have same day l iver MR. Please see that examination for additional information regarding small l iver metastases. Fat-containing right posterior Bochdalek hernia. No soft tissue pulmonary nodules. Periph eral calcified granuloma right lower lobe. Slight scarring in the lung bases. Mild degenerative changes lower thoracic spine. Mild vascular calcificat ion. Chest otherwise negative. 3D maximum intensity projection (MIP) im ages were created on a dependent workstation as ordered by the treating p romahendra and reviewed by the radiologist to increase sensitivity for detection of pulmonary nodules. IMPRESSION: 1. No new or enlarging pulmonary nodules concerning for metastatic disease in the chest. 2. Patient has liver metastases by MR ev aluation. Please see same day liver MR exam for additional information. Mikhail Mcfadden M.D. IMG CT PROCEDURES documented in this encounter Visit Diagnoses Diagnosis Carcinoid Tumor Malignant (HCC) - Primar y Carcinoid Tumor Malignant (HCC) documented in this encounter
--- OUTSIDE RECORDS SUMMARY | 2022-06-06 12:13 | XMS_ITS | Encounter Summary ---
:1945 Author Organization [facility] Address [address] [place] [address] Care Team Providers Name Role Phone Unavailable Primary Care Provider Unavailable Reason for Visit Reason Comments COVID Inquiry Encounter Details Date Type Department Care Team Description 02/24/2020 Clinical Communication Department of Mikhail Mcfadden VIMerced Inquiry Oncology in S, M.D. [place], [place] [address] [facility] [address] [place] [phone] Social History Tobacco Use Types Packs/Day Years Used Date Smoking Tobacco: Never Alcohol Use Standard Drinks/Week Comments [...] More than 4 times per year 09/30/2019 restoration services? Do you belong to any clubs [...] have completed or the highest Darrin, MEd, CORSAGE MAKER, BERTHA) degree you have received? Sex Assigned at Date Recorded Not on file documented as of this encounter Miscellaneous Notes Telephone Encounter - Doni, Genny Pedroza - 02/24/2020 11:18 AM CDT (Note for [facility] locations only: If the patient states they are asking for testing because attended a protest, andrews, community cleanup or other mass gathering in the last 7 days and is asking for testing, complete the below questions and transfer to the COVID Nurse Line). 1. Do you have a pending COVID test because you had symptoms or exposure to someone with COVID or you have tested positive for COVID in the last 30 days? no 2. In the past 14 days, do you, anyone in the household, or anyone you have had prolonged exposure have any of the following? a. Fever greater than or equal to 37.8 C (100.0 F)? no b. New symptoms (Specifically: headache, cough, shortness of breath, respiratory distress, sore throat, diarrhea, nausea, vomiting, chills and repeated shaking with chills, myalgia's (muscle aches), loss of smell, or change or loss of taste sensation)? no c. Had close contact with a patient with known or possible COVID-19 in the last 14 days? no documented in this encounter Plan of Treatment Not on filedocumented as of this encounter Visit Diagnoses Not on filedocumented in this encounter
--- OUTSIDE RECORDS SUMMARY | 2022-06-06 12:13 | XMS_ITS | Encounter Summary ---
:1945 Author Organization [facility] Address [address] [place] [address] Care Team Providers Name Role Phone Unavailable Primary Care Provider Unavailable Encounter Details Date Type Department Care Team Description 04/02/2020 External Department of Sullivan, Keisha Outreach Cardiovascular Ynes Gray Echocardiogralexi lal Medicine in [facility] C.N.P.[place], [place] D.N.P. [address] [facility] [address] [place] [phone] Social History Tobacco Use Types Packs/Day Years [...] More than 4 times per year 09/30/2019 confucianist services? Do you belong to any clubs [...] have completed or the highest Darrin, MEd, PROFESSOR OF NURSING, BERTHA) degree you have received? Sex Assigned at Date Recorded Not on file documented as of this encounter Consult Notes Ynes Jones APRN, C.N.P., D.N.P. - 04/02/2020 8:45 AM CDT Non face to face provider prolonged care coordination: This is a review of outside medical records, including Care Everywhere, image acquisition and viewing, collaboration and communication with internal subspecialties as well as communication with primary care, and referring providers when indicated.This is a review of outside medical records to be reviewed and confirmed at the time of [id number] as scheduled on 04/05/[address] Glass. Referring Physician: Yadira Mar PA-C Chief Complaint: Abnormal echo findings, TIA HPI: Ricky Villeda is a 74 year old male who was referred to clinic for evaluation. Cardiology has been asked to comment on echo findings of: atrial septal anuerysm, tiny valvular strands on the thickened aortic valve, and the potential role of these findings in recent TIA. Cardiology has also been asked to comment on anticoagulation plan, and whether there is need to trial 3 months Lovenox or warfarin. His past medical history includes paroxysmal atrial fibrillation (dx 2010), paroxysmal atrial flutter (10/02/2016), DVT and PE (10/02/2016), and CVA (10/15/2018). Other history includes bilateral TKA, prostate cancer s/p prostatectomy (02/08/2014), and neuroendocrine carcinoma. Carcinoma was diagnosed in 2008 and has been followed medically. Now known to be metastatic to liver, bone, and lymph nodes. It appears he had one episode of atrial fibrillation in 2010, with spontaneous conversion and no recurrence. In regards to the DVT/PE, patient underwent total left knee arthroplasty 09/09/2016 and took12 days Eliquis for post-op VTE prophylaxis. On 10/02/2016, he was noted to be tachycardic with s/s DVT. He went to the ED and was found to be in atrial flutter, with positive DVT and PE. He was cardioverted and discharged on sotalol and 3 months rivaroxaban; after 3 months he was started on baby aspirin. In regards to the CVA, he presented to the ED 10/15/2018 with acute stroke with multiple foci in the right frontoparietal, subcortical, and deep white matter. Etiology was thought to be cardioembolic.He was started on Eliquis. There is concern he has had multiple recent TIAs in the past several months. Family History: Mother: dementia, AAA, carotid endarterectomy; Father (dcsd, age 86): heart failure,CABG; Brother: carotid endarterectomy Social History: , no children. Retired from the . 2 alcoholic beverages per week. Active lifestyle. Medications: Eliquis, sotalol Results: KENDY 10/04/2019: Final Impressions 1. No intracardiac mass or thrombus. 2. Borderline enlarged left atrial size (qualitative assessment). No left atrium or left atrial appendage thrombus. 3. Atrial septal aneurysm. No shunt observed at the atrial level on color or agitated saline contrast study. 4. Thickened aortic valve with tiny valvular strands. No tumor or vegetation observed. No functionalabnormalities. 5. Normal left ventricular chamber size. Estimated ejection fraction 55%. Abnormal septal motion (nonspecific). No regional wall motion abnormalities 6. Mild-moderately enlarged right ventricular chamber size. Normal systolic function. Weak tricuspidregurgitant signal so the right ventricle systolic pressure could not be estimated. 7. 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 Findings LV: Normal left ventricular chamber size. Estimated LVEF 55 %. No regional wall motion abnormalities. Abnormal ventricular septal motion (non-specific). RV: Mild-moderately enlarged right ventricular chamber size. Normal right ventricular systolic function. ATRIA: Borderline enlarged left atrial size. Normal left atrial appendage. No left atrial appendage thrombus. Left atrial appendage emptying velocity 58 cm/sec. Enlarged right atrial size. Normal rightatrial appendage. CARDIAC VALVES: Trileaflet aortic valve. Thickened aortic valve. Aortic valve strands. No aortic valve regurgitation. Mildly thickened mitral valve. Mild mitral valve regurgitation. Normal pulmonary valve. Trivial pulmonary valve regurgitation. Normal tricuspid valve. Mild tricuspid valve regurgitation. OTHER ECHO FINDINGS: Normal ascending aorta diameter (39 mm; upper limits of normal for age 42.8 mm). Normal aortic arch dimension. 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 Normally connected pulmonary veins. Normal pulmonary artery bifurcation. Normal superior vena cava. Atrial septal aneurysm. No oixu-zj-lxpqh shunt at atrial level. Agitated saline injection(s) performed prior to administration of sedation and during sedation. No nbyzr-pv-cqbq shunt at atrial level at rest or with Valsalva release. No intracardiac mass or thrombus. No pericardial effusion. Carotid Ultrasound 09/30/2019: 1) No hemodynamically significant carotid artery stenosis on either side. 2) Moderate mixed but predominantly non calcified atheromatous plaque in right carotid bifurcation EKG 06/23/2019: Normal sinus rhythm Normal ECG Diagnoses: #1 Abnormal findings on echocardiogram #2 TIA #3 Hx paroxysmal atrial fibrillation (dx 2010) #4 Hx paroxysmal atrial flutter (10/02/2016) #5 Hx DVT (10/02/2016) #6 Hx PE (10/02/2016) #7 Hx CVA - multiple foci in the right frontoparietal, subcortical, and deep white matter (10/15/2018) #8 Hx prostate cancer s/p prostatectomy (02/08/2014) #9 Metastatic neuroendocrine carcinoma (dx 2008) Billing: Greater than 60 minutes in provider care coordination. documented in this encounter Plan of Treatment Not on filedocumented as of this encounter Visit Diagnoses Diagnosis Abnormal Echocardiogram documented in this encounter
--- OUTSIDE RECORDS SUMMARY | 2022-06-06 12:13 | XMS_ITS | Encounter Summary ---
:1945 Author Organization [facility] Address [address] [place] [address] Care Team Providers Name Role Phone Unavailable Primary Care Provider Unavailable Encounter Details Date Type Department Care Team Description 02/28/2020 Orders Only Department of Vascular Lang, Peters P.A.-C. Medicine in [place], [facility] [address] [place], [place] [address] [facility] [address] [place] [address] [phone] Social History Tobacco Use Types Packs/Day Years [...] or relatives? How often do you attend presybeterian or More than 4 times per year 09/30/2019 cheondoism services? Do you belong to any clubs or Yes 09/30/2019 organizations such as presybeterian groups, unions, fraternal or athletic groups, or [...] have completed or the highest Darrin, MEd, FIRE MANAGEMENT SPECIALIST, BERTHA) degree you have received? Sex Assigned at Date Recorded Not on file documented as of this encounter Plan of Treatment Not on filedocumented as of this encounter Visit Diagnoses Not on filedocumented in this encounter
--- OUTSIDE RECORDS SUMMARY | 2022-06-06 12:13 | XMS_ITS | Encounter Summary ---
:1945 Author Organization [facility] Address [address] [place] [address] Care Team Providers Name Role Phone Unavailable Primary Care Provider Unavailable Encounter Details Date Type Department Care Team Description 04/05/2020 Hospital Encounter Department of Melanie Lopez Ischemic Radiology, Kristofer Gill M.D. [facility], in [address] [place] [address] [place] [phone] [place], [place] [phone] (Work) [phone] Social History Tobacco Use Types Packs/Day Years [...] have completed or the highest Darrin, MEd, CRIMINALIST TECHNICIAN, BERTHA) degree you have received? Sex [...] Procedure Name Priority Date/Time Associated Comments Diagnosis DX CHEST AP OR PA RAD - Routine 04/05/2020 9:18 Transient Result s for this AND LATERAL 2 (most inpatients AM CDT Ischemic Attack procedu re are in VIEWS and all the results outpatients) section. documented in this encounter Results DX Chest AP or PA and Lateral [...] bases. No significant change since 11/13/2008. Melanie MONTOYA DIAGNOSTIC IMAGING ROSALINA MAYORGA documented in this encounter Visit Diagnoses Diagnosis Transient Ischemic Attack documented in this encounter
--- OUTSIDE RECORDS SUMMARY | 2022-06-06 12:13 | XMS_ITS | Encounter Summary ---
:1945 Author Organization [facility] Address [address] [place] [address] Care Team Providers Name Role Phone Unavailable Primary Care Provider Unavailable Reason for Referral MRI/CAT/PET Scan (Routine) - Closed Specialty Diagnoses / Procedures Referred By Contact Refer red To Contact Radiology Diagnoses Carcinoid Tumor Malignant (HCC) Mikhail Mcfadden M.D. [facility] Procedures CT Chest without IV Contrast CT Chest without and with IV Contrast [address] [place] [phone] Referral ID Status Reason Start Date Expiration Date Visits Requ ested Visits Authorized [id number] Closed 11/02/2019 11/01/2020 1 1 Reason for Visit MRI/CAT/PET Scan (Routine) - Closed Specialty Diagnoses / Procedures Referred By Contact Refer red To Contact Radiology Diagnoses Carcinoid Tumor Malignant (HCC) Mikhail Mcfadden M.D. [facility] Procedures CT Chest without IV Contrast CT Chest without and with IV Contrast [address] [place] [phone] Referral ID Status Reason Start Date Expiration Date Visits Requ ested Visits Authorized [id number] Closed 11/02/2019 11/01/2020 1 1 Encounter Details Date Type Department Care Team Description 02/27/2020 Hospital Encounter Department of Mikhail Mcfadden Tumor Radiology, Lurdes Julien M.D. Malignant (HCC) Building, in [address] [place] [address] [place] [phone] [place], [place] [phone] (Work) [phone] Social History Tobacco Use Types Packs/Day Years [...] or relatives? How often do you attend christianity or More than 4 times per year 09/30/2019 evangelical services? Do you belong to any clubs or Yes 09/30/2019 organizations such as christianity groups, unions, fraternal or athletic groups, or [...] have completed or the highest Darrin, MEd, PRODUCTION TECHNICIAN, BERTHA) degree you have received? Sex [...] Diagnosis CT CHEST WITHOUT RAD - Routine 02/27/2020 1:27 Carcinoid Tumor Resu lts for this IV CONTRAST (most inpatients PM CDT Malignant (HCC) procedur e are in [...] liver MR exam for additional information. Mikhail MONTOYA CT PROCEDURES documented in this encounter Visit Diagnoses Diagnosis Carcinoid Tumor Malignant (HCC) documented in this encounter
--- OUTSIDE RECORDS SUMMARY | 2022-06-06 12:13 | XMS_ITS | Encounter Summary ---
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 [facility] Procedures MR Abdomen without and with IV Contrast [address] [place] [phone] Referral ID Status Reason Start Date Expiration Date Visits Requ ested Visits Authorized [id number] Closed 10/11/2019 10/10/2020 1 1 Encounter Details Date Type Department Care Team Description 10/12/2019 Hospital Encounter Department of Mikhail Mcfadden Carcin oid Syndrome (HCC); Radiology, Lurdes Julien M.D. Carcinoid Ileum Malignant (HCC) [facility], in [address] [place] [address] [place] [phone] [place], [place] [phone] (Work) [phone] Social History Tobacco Use Types Packs/Day Years [...] More than 4 times per year 09/30/2019 congregation services? Do you belong to any clubs [...] have completed or the highest Darrin, MEd, MEDICAL BILLING ASSOCIATE, BERTHA) degree you have received? Sex Assigned [...] times a day. 0 0 09/21/2019 tablet Eliquis 5 mg tablet 0 09/21/201904/05 documented as of this encounter Nursing Notes Mati Nathan, R.N. - 10/12/2019 7:45 AM CST A review of the patients current medications was completed under the context of radiology care priorto contrast/medication administration. SCHO[employer] INDUSTRIAL ARTS TEACHER documented in this encounter Plan of Treatment Not on filedocumented as of this encounter Procedures Procedure Name Priority Date/Time Associated Comments Diagnosis MR ABDOMEN RAD - Routine 10/12/2019 9:01 Carcinoid Results for this WITHOUT AND WITH (most inpatients AM HIGH SCHOOL INDUSTRIAL ARTS TEACHER Syndrome (HCC) procedure are in IV CONTRAST and all Carcinoid Ileum the results outpatients) Malignant (HCC) section. documented in this encounter Results MR Abdomen without and with IV Contrast (10/12/2019 9:01 AM HIGH SCHOOL INDUSTRIAL ARTS TEACHER) Anatomical Region Laterality Modality Abdomen, Abdominal RST LOS, Abdominal ARZ LOS, N/A Magnetic Resonance Abdominal FLA LOS Specimen (Source) Anatomical Collection Method Collection Time Re ceived Time Location / / Volume Laterality 10/12/2019 10:29 AM [employer] INDUSTRIAL ARTS TEACHER Impressions 10/12/2019 11:55 AM HIGH [employer] INDUSTRIAL ARTS TEACHER Extensive metastatic disease throughout the abdomen including hepatic, pancreatic, lymph nodes, osseous, and pr obable soft tissue metastases. Narrative 10/12/2019 11:55 AM HIGH SCHOOL INDUSTRIAL ARTS TEACHER EXAM: ??MR ABDOMEN WITHOUT AND WITH IV CONTRAST COMPARISON: ??Outside [facility] PET/CT . FINDINGS: ?? Multiple small enhancing masses with res tricted diffusion throughout the liver consistent with metastatic disease. For example, a 9 mm lesion in the hepatic dome (series 10 image 12), 9 mm in the s egment 7 on image 16 series 10, a 10 mm lesion in the segment 7 (image 22), and a 16 mm lesion in the segment to 6 (image 41). A few hepatic cysts are seen. Focal areas of enhancement in the pancre atic tail (series 10 image 40) and pancreatic body (series 10 image 49). Ex tensive periaortic, retroperitoneal, and mesenteric lymph nodes. For example, a l arge mesenteric lymph node measures 4 cm (series 12 image 70), and left paraortic lymph node measuring 1.3 cm on image 58 series 12.. Innumerable enhancing osseous lesions th roughout the visualized skeleton. Several scattered small enhancing nodule s within the soft tissues, for example 10 mm in the left paraspinal muscle on i mage 80 series 10.. Cholelithiasis. Mild wall thickening of the gallbladder without MR evidence of acute cholecystitis. Normal appearance o f the spleen and adrenal glands. Right renal cysts. Procedure Note Peter Sevilla M.D. - 10/12/2019 EXAM: MR ABDOMEN WITHOUT AND WITH IV CON TRAST COMPARISON: Outside [facility] PET/CT 09/15. FINDINGS: Multiple small enhancing masses with res tricted diffusion throughout the liver consistent with metastatic disease. For example, a 9 mm lesion in the hepatic dome (series 10 image 12), 9 mm in the s egment 7 on image 16 series 10, a 10 mm lesion in the segment 7 (image 22), and a 16 mm lesion in the segment to 6 (image 41). A few hepatic cysts are seen. Focal areas of enhancement in the pancre atic tail (series 10 image 40) and pancreatic body (series 10 image 49). Ex tensive periaortic, retroperitoneal, and mesenteric lymph nodes. For example, a l arge mesenteric lymph node measures 4 cm (series 12 image 70), and left paraortic lymph node measuring 1.3 cm on image 58 series 12.. Innumerable enhancing osseous lesions th roughout the visualized skeleton. Several scattered small enhancing nodule s within the soft tissues, for example 10 mm in the left paraspinal muscle on i mage 80 series 10.. Cholelithiasis. Mild wall thickening of the gallbladder without MR evidence of acute cholecystitis. Normal appearance o f the spleen and adrenal glands. Right renal cysts. IMPRESSION: Extensive metastatic disease throughout the abdomen including hepatic, pancreatic, lymph nodes, osseous, and pr obable soft tissue metastases. 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) documented in this encounter Administered Medications Inactive Administered Medications - up to 3 most recent administrations Medication Order MAR Action Action Date Dose Rate Site gadobutrol injection 0.01-30 mL Given 10/12/2019 8:52 AM HIGH [employer] INDUSTRIAL ARTS TEACHER 10 mL (GADAVIST) 0.01-30 mL, intravenous, Once in imaging, contrast, Starting on Thu10/12/19 at 0731, For 1 dose, Imaging Protocol Orders, Dose per Radiant Medication Guidelines sodium chloride (PF) 0.9 % injection 1-1 00 mL Given 10/12/2019 8:53 AM HIGH S[employer] INDUSTRIAL ARTS TEACHER 50 mL 1-100 mL, intravenous, Once, On Thu10/12/19 at 0745, For 1 dose, Imaging Protocol Orders documented in this encounter
--- OUTSIDE RECORDS SUMMARY | 2022-06-06 12:13 | XMS_ITS | Encounter Summary ---
:1945 Author Organization [facility] Address [address] [place] [address] Care Team Providers Name Role Phone Unavailable Primary Care Provider Unavailable Encounter Details Date Type Department Care Team Description 10/21/2019 Ancillary Procedure Department of BogdanMikhail Malignant Neoplasm Of Prostate (HCC); Radiology in SShahid Carcinoid Tumor Malignant (HCC) [place], [place] [address] [facility] [address] [place] [phone] Social History Tobacco Use Types Packs/Day Years [...] or relatives? How often do you attend adventism or More than 4 times per year 09/30/2019 jainism services? Do you belong to any clubs or Yes 09/30/2019 organizations such as adventism groups, unions, fraternal or athletic groups, or [...] have completed or the highest Darrin, MEd, WEB ENGINEER, BERTHA) degree you have received? Sex Assigned at Date Recorded Not on file documented as of this encounter Plan of Treatment Not on filedocumented as of this encounter Procedures Procedure Name Priority Date/Time Associated Comments Diagnosis INTERPRETATION OF RAD - Routine 10/24/2019 8:09 Primary Result s for OUTSIDE CT CHEST (most inpatients AM BROWNELL OPERATOR Malignant this pr ocedure and all Neoplasm Of are in the outpatients) Prostate (HCC) results Carcinoid Tumor section. Malignant (HCC) documented in this encounter Results Interpretation of Outside CT Chest (10/24/2019 8:09 AM BROWNELL OPERATOR) Anatomical Region Laterality Modality Chest, Thoracic RST LOS, Thoracic ARZ LOS, Thoracic N/A Computed Tomography FLA LOS, Other, Body Specimen (Source) Anatomical Collection Method Collection Time Re ceived Time Location / / Volume Laterality 10/24/2019 11:01 AM BROWNELL OPERATOR Impressions 10/24/2019 11:13 AM BROWNELL OPERATOR 1. ?There is a 1 mm solid nodule in the central anterior left upper lobe, more prominent since prior exams, technically indeterminate. Attention at the next CT follow-up is recommended. 2. Similarly a hypodense 10 x 15 mm righ t thyroid nodule is more conspicuous on the current exam, technically indetermin ate and clinical and/or sonographic correlation can be obtained as clinicall y indicated. 3. Innumerable predominantly sclerotic o sseous lesions have become apparent since prior CTs, better visualized on th e recent PET/CT. Narrative 10/24/2019 11:13 AM BROWNELL OPERATOR EXAM: ??INTERPRETATION OF OUTSIDE CT CHEST COMPARISON: ??Chest CT dated 04/14/2012, 04/14/2013 and PET/CT dated 10/07/2019 ?? FINDINGS: ??Chest CT with intravenous co ntrast dated 08/26/2019 was presented for evaluation on 10/24/2019. The 5-6 mm peripheral right middle lobe solid noncalcified perivascular nodule on image 158 of series 2 has been stable since 2012 and should be benign. There is a 1 mm solid nodule in the central an terior left upper lobe on image 156 of series 2, more prominent since prior exa ms, technically indeterminate. The central tracheal bronchial tree is paten t. No pleural effusion or thickening identified. A hypodense 10 x 15 mm right thyroid nod ule on image 48 of series 2 is more conspicuous on the current exam. Shotty subcentimeter nodes without thora cic adenopathy by size criteria. Mild aortic and coronary artery calcific ations are again identified. Mitral annulus calcification is also identified . Small sliding esophageal hiatal hernia h as not substantially changed. Innumerable predominantly sclerotic osse ous lesions have become apparent since prior CTs, better visualized on the rece nt PET/CT, compatible with osseous metastases. Right humeral head suture an chors are new since 2012. Remainder of the thoracic exam is unrema rkable. Thank you for the consultation. This examination was performed in conjun ction with a CT of the abdomen, which can be reported separately upon request. Procedure Note Kayden Rivera M.D. - 10/24/2019Formattin g of this note might be different from the original. EXAM: INTERPRETATION OF OUTSIDE CT CHEST COMPARISON: Chest CT dated 04/14/2012, 0 04/14/2013 and PET/CT dated 10/07/2019 FINDINGS: Chest CT with intravenous cont rast dated 08/26/2019 was presented for evaluation on 10/24/2019. The 5-6 mm peripheral right middle lobe solid noncalcified perivascular nodule on image 158 of series 2 has been stable since 2011 and should be benign. There is a 1 mm solid nodule in the central an terior left upper lobe on image 156 of series 2, more prominent since prior exa ms, technically indeterminate. The central tracheal bronchial tree is paten t. No pleural effusion or thickening identified. A hypodense 10 x 15 mm right thyroid nod ule on image 48 of series 2 is more conspicuous on the current exam. Shotty subcentimeter nodes without thora cic adenopathy by size criteria. Mild aortic and coronary artery calcific ations are again identified. Mitral annulus calcification is also identified . Small sliding esophageal hiatal hernia h as not substantially changed. Innumerable predominantly sclerotic osse ous lesions have become apparent since prior CTs, better visualized on the rece nt PET/CT, compatible with osseous metastases. Right humeral head suture an chors are new since 2012. Remainder of the thoracic exam is unrema rkable. Thank you for the consultation. This examination was performed in conjun ction with a CT of the abdomen, which can be reported separately upon request. IMPRESSION: 1. There is a 1 mm solid nodule in the c entral anterior left upper lobe, more prominent since prior exams, technically indeterminate. Attention at the next CT follow-up is recommended. 2. Similarly a hypodense 10 x 15 mm righ t thyroid nodule is more conspicuous on the current exam, technically indetermin ate and clinical and/or sonographic correlation can be obtained as clinicall y indicated. 3. Innumerable predominantly sclerotic o sseous lesions have become apparent since prior CTs, better visualized on th e recent PET/CT. Mikhail LEEG CT PROCEDURES documented in this encounter Visit Diagnoses Diagnosis Primary Malignant Neoplasm Of Prostate ( HCC) Carcinoid Tumor Malignant (HCC) documented in this encounter
--- OUTSIDE RECORDS SUMMARY | 2022-06-06 12:13 | XMS_ITS | Encounter Summary ---
:1945 Author Organization [facility] Address [address] [place] [address] Care Team Providers Name Role Phone Unavailable Primary Care Provider Unavailable Encounter Details Date Type Department Care Team Description 02/27/2020 Hospital Encounter Department of Bogdan, Mikhail Carcin oid Syndrome (HCC); Laboratory Medicine SShahid Carcinoid Ileum Malignant (HCC); and Pathology, [address] [place] [address] Primary Malignant Neoplasm Of Prostate ( HCC) [facility] in [place], [place] [address] [place] [address] [place], [place] (Work[place] [phone] Social History Tobacco Use Types Packs/Day Years [...] or relatives? How often do you attend congregation or More than 4 times per year 09/30/2019 taoism services? Do you belong to any clubs or Yes 09/30/2019 organizations such as congregation groups, unions, fraternal or athletic groups, or [...] have completed or the highest Darrin, MEd, CHICKEN STUFFER, BERTHA) degree you have received? Sex Assigned [...] Name Priority Date/Time Associated Diagnosis Comme nts 5-HYDROXYINDOLEACET Routine 02/29/2020 8:15 AM Carcinoid Syndr ome Results for this IC ACID, 24 HR U CDT (HCC) procedure are in Carcinoid Ileum the results Malignant (HCC) section. Primary Malignant Neoplasm Of Prostate (HCC) documented in this encounter Results 5-Hydroxyindoleacetic Acid (5-HIAA), 24 Hour, Urine (02/29/2020 8:15 AM CDT) P athologist Signature 5-Hydroxyindolea 9.7 <=10.1 03/02/2020 DTL cetic Acid, U mg/24 h 12:28 PM CDT Collection 24 h 03/02/2020 DTL Duration 12:28 PM CDT Urine Volume 2631 mL 03/02/2020 DTL 12:28 PM CDT Comment: ----ADDITIONAL INFORMATION---- Liquid Chromatography-Tandem Mass Spectr ometry (LC-MS/MS). Values obtained from different assay met hods or kits may be different and cannot be used interchangeably. The results cannot be interpreted as abs olute evidence for the presence or absence of malignant disease. This test was developed and its performa nce characteristics determined by [facility] in a manner consistent with CLIA requirements. This test has not been cleared or approved by the [place] d and Drug Administration. Specimen Anatomical Collection Method Collection Time Receive d Time (Source) Location / / Volume Laterality Urine (Urine, 24 02/29/2020 8:15 AM 02/28 Hours) CDT 12:13 PM CDT Mikhail Mcfadden M.D. LAB URINE ORDERABLES Performing Organization Address City/State/ZIP Code Phon e Number [facility] - [address] [place], [place] [address] [facility] [place] [address] 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
--- OUTSIDE RECORDS SUMMARY | 2022-06-06 12:13 | XMS_ITS | Encounter Summary ---
:1945 Author Organization [facility] Address [address] [place] [address] Care Team Providers Name Role Phone Unavailable Primary Care Provider Unavailable Reason for Visit Reason Onset Date Comments Octreotide dosage 10/21/2019 Encounter Details Date Type Department Care Team Description 10/21/2019 Clinical Communication Department of BogdanMikhail Oc treotide dosage Oncology in S, M.D. [place], [facility] [address] [place], [place] [address] [place] [phone] [place], [place] [phone] (Work) [phone] Social History Tobacco Use Types Packs/Day Years [...] or relatives? How often do you attend latter-day or More than 4 times per year 09/30/2019 samaritan services? Do you belong to any clubs or Yes 09/30/2019 organizations such as latter-day groups, unions, fraternal or athletic groups, or [...] have completed or the highest Darrin, MEd, CDL B DRIVER, BERTHA) degree you have received? Sex Assigned at Date Recorded Not on file documented as of this encounter Plan of Treatment Not on filedocumented as of this encounter Visit Diagnoses Not on filedocumented in this encounter
--- OUTSIDE RECORDS SUMMARY | 2022-06-06 12:14 | XMS_ITS | Encounter Summary ---
:1945 Author Organization [facility] Address [address] [place] [address] Care Team Providers Name Role Phone Unavailable Primary Care Provider Unavailable Encounter Details Date Type Department Care Team Description 09/29/2019 Hospital Encounter Department of Rashid Ventura Carcino id Syndrome (HCC); Laboratory Medicine A, P.A.-C. Carcinoi d Ileum Malignant (HCC); and Pathology, Thrombosis De ep Vein Personal History; [facility], in Clinical Research Exam [place], [place] [address] [place] [address] Social History Tobacco Use Types Packs/Day Years [...] More than 4 times per year 09/30/2019 gnosticism services? Do you belong to any clubs [...] have completed or the highest Darrin, MEd, VARITYPE OPERATOR, BERTHA) degree you have received? Sex [...] Procedure Name Priority Date/Time Associated Comments Diagnosis MISC RESEARCH ORDER, B Routine 09/29/2019 10:45 Clinical Resea rch Results for this AM ERP ENGINEER Exam procedure are i n the results section. PROTHROMBIN TIME (PT), Routine 09/29/2019 10:45 Thrombosis Mady p Results for this P AM ERP ENGINEER Vein Personal procedure are in History the results section. CBC WITH DIFFERENTIAL, Routine 09/29/2019 10:45 Carcinoid Synd gregoria Results for this B AM ERP ENGINEER (HCC) procedure are in Carcinoid Ileum the results Malignant (HCC) section. BILIRUBIN DIRECT, S/P Routine 09/29/2019 10:45 Carcinoid Syndr ome Results for this AM ERP ENGINEER (HCC) procedure are in Carcinoid Ileum the results Malignant (HCC) section. COMPREHENSIVE Routine 09/29/2019 10:45 Carcinoid Syndrome Resu lts for this METABOLIC PANEL, S/P AM ERP ENGINEER (HCC) procedure are in Carcinoid Ileum the results Malignant (HCC) section. documented in this encounter Results Miscellaneous Research, B (09/29/2019 10:45 AM ERP ENGINEER) athologist Signature Number of 4 09/29/2019 S Specimens 11:05 AM ERP ENGINEER Specimen Anatomical Collection Method Collection Time Receive d Time (Source) Location / / Volume Laterality Varies (Blood, 09/29/2019 10:45 0 Venous) AM ERP ENGINEER 11:05 AM ERP ENGINEER Eli Ohara M.D. LAB RESEARCH NO RESULT PAULA HENDRIX Performing Organization Address City/State/ZIP Code Phon e Number [facility] - [address] [place], [place] [address] [facility] [place] [address] [facility] [address] (ABNORMAL) Prothrombin Time (PT) (09/29/2019 10:45 AM ERP ENGINEER) [facility] Signature Prothrombin 15.6 (H) 9.4 - 12.5 09/29/2019 DTL Time, P sec 11:22 AM ERP ENGINEER INR 1.4 0.9 - 1.1 09/29/2019 DTL 11:22 AM ERP ENGINEER Comment: ----ADDITIONAL INFORMATION---- Standard intensity warfarin therapeutic range: 2.0 to 3.0 ?? High intensity warfarin therapeutic rang e: 2.5 to 3.5 Specimen Anatomical Collection Method Collection Time Receive d Time (Source) Location / / Volume Laterality Blood (Blood, 09/29/2019 10:45 09/29/2019 Venous) AM ERP ENGINEER 11:04 AM ERP ENGINEER Rashid Ventura P.A.-C. LAB BLOOD ADD-ON Performing Organization Address City/State/ZIP Code Phon e Number [facility] - [address] [place], [place] [address] [facility] [place] [address] [facility] [address] [facility] (ABNORMAL) CBC with Differential, Blood (09/29/2019 10:45 AM ERP ENGINEER) [facility] Method Time Signature Hemoglobin 13.6 13.2 - 09/29/2019 DTL 16.6 g/dL 11:13 AM ERP ENGINEER Hematocrit 41.8 38.3 - 09/29/2019 DTL 48.6 % 11:13 AM ERP ENGINEER Erythrocytes 4.14 (L) 4.35 - 09/29/2019 DTL 5.65 11:13 AM ERP ENGINEER x10(12)/L MCV 101.0 (H) 78.2 - 09/29/2019 DTL 97.9 fL 11:13 AM ERP ENGINEER RBC Distrib Width 11.8 11.8 - 09/29/2019 DTL 14.5 % 11:13 AM ERP ENGINEER Platelet Count 363 (H) 135 - 317 09/29/2019 DTL x10(9)/L 11:13 AM ERP ENGINEER Leukocytes 4.6 3.4 - 9.6 09/29/2019 DTL x10(9)/L 11:13 AM ERP ENGINEER Neutrophils 2.46 1.56 - 09/29/2019 DTL 6.45 11:13 AM ERP ENGINEER x10(9)/L Lymphocytes 1.25 0.95 - 09/29/2019 DTL 3.07 11:13 AM ERP ENGINEER x10(9)/L Monocytes 0.62 0.26 - 09/29/2019 DTL 0.81 11:13 AM ERP ENGINEER x10(9)/L Eosinophils 0.27 0.03 - 09/29/2019 DTL 0.48 11:13 AM ERP ENGINEER x10(9)/L Basophils 0.03 0.01 - 09/29/2019 DTL 0.08 11:13 AM ERP ENGINEER x10(9)/L Specimen Anatomical Collection Method Collection Time Receive d Time (Source) Location / / Volume Laterality Blood (Blood, 09/29/2019 10:45 09/29/2019 Venous) AM ERP ENGINEER 11:04 AM ERP ENGINEER Rashid Ventura P.A.-C. LAB BLOOD ADD-ON Performing Organization Address City/[facility] Phon e Number [facility] - [address] Bilirubin, Direct (09/29/2019 10:45 AM ERP ENGINEER) athologist Signature Bilirubin, <0.2 0.0 - 0.3 09/29/2019 DTL Direct, S mg/dL 12:01 PM ERP ENGINEER Specimen Anatomical Collection Method Collection Time Receive d Time (Source) Location / / Volume Laterality Blood (Blood, 09/29/2019 10:45 09/29/2019 Venous) AM ERP ENGINEER 11:04 AM ERP ENGINEER Rashid Ventura P.A.-C. LAB BLOOD ADD-ON Performing Organization Address City/[facility] Phon e Number [facility] - [address] [place] [address] Comprehensive Metabolic Panel (09/29/2019 10:45 AM ERP ENGINEER) athologist Signature Potassium, S 4.6 3.6 - 5.2 09/29/2019 DTL mmol/L 12:01 PM ERP ENGINEER Sodium, S 143 135 - 145 09/29/2019 DTL mmol/L 12:01 PM ERP ENGINEER Chloride, S 103 98 - 107 09/29/2019 DTL mmol/L 12:01 PM ERP ENGINEER Bicarbonate, S 27 22 - 29 09/29/2019 DTL mmol/L 12:01 PM ERP ENGINEER Anion Gap 13 7 - 15 09/29/2019 DTL 12:01 PM ERP ENGINEER BUN (Blood Urea 15 8 - 24 09/29/2019 DTL Nitrogen), S mg/dL 12:01 PM ERP ENGINEER Creatinine 1.02 0.74 - 09/29/2019 DTL 1.35 mg/dL 12:01 PM ERP ENGINEER eGFR-Non 72 >=60 09/29/2019 DTL Black/ mL/min/BSA 12:01 PM ERP ENGINEER [place] Comment: ----ADDITIONAL INFORMATION---- Estimated GFR calculated using the 2009 CKD_EPI creatinine equation. eGFR-Black/ 83 >=60 mL/min/BSA 2019 12:01 PM ERP ENGINEER DTL Comment: ----ADDITIONAL INFORMATION---- Estimated GFR calculated using the 2009 CKD_EPI creatinine equation. Calcium, Total, S 9.2 8.8 - 10.2 mg/dL 09/29/2019 12:0 1 PM ERP ENGINEER DTL Glucose, S 107 70 - 140 mg/dL 09/29/2019 12:01 PM ERP ENGINEER DTL Protein, Total, S 6.9 6.3 - 7.9 g/dL 09/29/2019 12:01 PM ERP ENGINEER DTL Albumin, S 3.9 3.5 - 5.0 g/dL 09/29/2019 12:01 PM ERP ENGINEER DTL Aspartate Aminotransferase 30 8 - 48 U/L 09/29/2019 1 2:01 PM ERP ENGINEER DTL (AST), S Alkaline Phosphatase, S 89 40 - 129 U/L 09/29/2019 12 :01 PM ERP ENGINEER DTL Alanine Aminotransferase (ALT), 34 7 - 55 U/L 020 12:01 PM ERP ENGINEER DTL S Bilirubin, Total, S 0.3 <=1.2 mg/dL 09/29/2019 12:01 P M ERP ENGINEER DTL Specimen Anatomical Collection Method Collection Time Receive d Time (Source) Location / / Volume Laterality Blood (Blood, 09/29/2019 10:45 09/29/2019 Venous) AM ERP ENGINEER 11:04 AM ERP ENGINEER Rashid Ventura P.A.-C. 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
--- OUTSIDE RECORDS SUMMARY | 2022-06-06 12:14 | XMS_ITS | Encounter Summary ---
:1945 Author Organization [facility] Address [address] [place] [address] Care Team Providers Name Role Phone Unavailable Primary Care Provider Unavailable Encounter Details Date Type Department Care Team Description 02/08/2014 - 02/09/2014 Hospital Encounter HX RST SANYA Carter Social History Tobacco Use Types Packs/Day Years Used Date Smoking Tobacco: Never Assessed Alcohol Habits Answer Date Recorded How often [...] or relatives? How often do you attend temple or More than 4 times per year 09/30/2019 mormon services? Do you belong to any clubs or Yes 09/30/2019 organizations such as temple groups, unions, fraternal or athletic groups, or [...] or getting things needed for daily living? Sex Assigned at Date Recorded Not on file documented as of this encounter Last Filed Vital Signs Vital Sign Reading Time Taken Comments Blood Pressure 107/57 02/09/2014 4:24 PM CDT Pulse 89 02/09/2014 4:24 PM CDT Temperature - - Respiratory Rate 16 02/09/2014 4:24 PM CDT Oxygen Saturation - - Inhaled Oxygen Concentration - - Weight 93.8 kg (206 lb 12.7 oz) 02/09/2014 9:36 AM CDT Height 172 cm (5' 7.72) 02/08/2014 6:38 AM CDT Body Mass Index 29.87 02/08/2014 7:35 AM CDT documented in this encounter Plan of Treatment Not on filedocumented as of this encounter Procedures Procedure Name Priority Date/Time Associated Comments Diagnosis ELECTROLYTE (CHEM 4) Routine 02/09/2014 4:21 AM R esults for this PANEL, S/P CDT procedure are i n the results section. CBC WITHOUT Routine 02/09/2014 4:21 AM Results f or this DIFFERENTIAL, B CDT procedure ar e in the results section. MAGNESIUM, S Routine 02/09/2014 4:21 AM Results f or this CDT procedure are i n the results section. DX ABDOMEN 1 VIEW Routine 02/08/2014 11:36 Result s for this AM CDT procedure are i n the results section. HXGENERAL PATHOLOGY Routine 02/08/2014 8:43 AM Re sults for this REPORT CDT procedure are i n the results section. documented in this encounter Results Magnesium (02/09/2014 4:21 AM CDT) P athologist Signature Magnesium, S 2.0 1.7 - 2.3 [facility] MG/DL LABORATORIES - [facility] Specimen Anatomical Collection Method Collection Time Receive d Time (Source) Location / / Volume Laterality 02/09/2014 4:21 AM 4 4:21 CDT AM CDT Shashank Iniguez M.D. LAB BLOOD ADD-ON Performing Organization Address City/State/ZIP Code Phon e Number [facility]ATORIES - [address] [place], [place] [address] [facility] Electrolyte (Chem 4) Panel (02/09/2014 4:21 AM CDT) Analysis Performed At Patho logist Time Signature Sodium, S 140 135 - 145 [facility] MMOL/L [facility] - [facility] Potassium, S 4.5 3.6 - 5.2 [facility] MMOL/L [facility] Creatinine 1.0 0.8 - 1.3 [facility] MG/DL LAB[facility]IES - [facility] eGFR >60 >60 [facility] Non-Black/Afric ML/MIN/BSA LABORATORIES - Cymro [facility] Anion Gap 10 7 - 15 [facility] Glucose, S 99 70 - 140 [facility] MG/DL [facility] - [facility] Chloride, S 102 98 - 107 [facility] MMOL/L [facility] - [facility] HX Bicarbonate, 28 22 - 29 [facility] P/S MMOL/L [facility] - [facility] eGFR-Black/Afri >60 >60 [facility] can Cymro ML/MIN/BSA [facility]IES - [facility] BUN (Blood Urea 11 8 - 24 [facility] Nitrogen), S MG/DL [facility] - [facility] Specimen Anatomical Collection Method Collection Time Receive d Time (Source) Location / / Volume Laterality 02/09/2014 4:21 AM 4 4:21 CDT AM CDT Shashank Iniguez M.D. LAB BLOOD ADD-ON Performing Organization Address City/[facility]/ZIP Code Phon e Number [facility]ATORIES - [address] [place] [phone] [facility] (ABNORMAL) CBC without Differential (02/09/2014 4:21 AM CDT) [facility] gist Method Time Signature Hemoglobin 11.7 (L) 13.5 - [facility] 17.5 G/DL LABORATORIES [facility] Hematocrit 34.8 (L) 38.8 - [facility] 50.0 % LABORATORIES - [facility] RBC Distrib 12.5 11.8 - [facility] Width 15.6 % [facility]ATORIES - [facility] Platelet Count 207 150 - 450 [facility] X10(9)/L LABORATORIES [facility] Leukocytes 6.8 3.5 - [facility] 10.5 LABORATORIES - X10(9)/L [facility] Erythrocytes 3.55 (L) 4.32 - [facility] 5.72 LABORATORIES - X10(12)/L [facility] MCV 98.0 (H) 81.2 - [facility] 95.1 FL LABORATORIES - [facility] Specimen Anatomical Collection Method Collection Time Receive d Time (Source) Location / / Volume Laterality 02/09/2014 4:21 AM 4 4:21 CDT AM CDT Shashank Iniguez M.D. LAB BLOOD ADD-ON Performing Organization Address City/State/[facility] Code Phon e Number [facility] LABORATORIES - [address] [place] [phone] [facility] DX Abdomen 1 View (02/08/2014 11:36 AM CDT) Anatomical Region Laterality Modality Abdomen N/A Radiographic Imaging Specimen (Source) Anatomical Collection Method Collection Time Re ceived Time Location / / Volume Laterality 02/08/2014 11:36 AM CDT Impressions 02/08/2014 11:44 AM CDT ??Clips and postoperative changes in the pelvis. View of the pelvis negative for operative purposes. Electronically signed by: ?? Bob ??Delfina MCHUGH ?? [id number] 08-Feb-2014 1 1:44 Narrative 02/08/2014 11:44 AM CDT 08-Feb-2014 11:36:00 ??Exam: Post OP Abdomen Indications: RRP PLND ORIGINAL REPORT - 08-Feb-2014 11:44:00 EXAM: ??Post OP Abdomen Procedure Note Abdifatah Mathis M.D. - 12/11/2017Formatti ng of this note might be different from the original. 08-Feb-2014 11:36:00 Exam: Post OP Abdom en Indications: RRP PLND ORIGINAL REPORT - 08-Feb-2014 11:44:00 EXAM: Post OP Abdomen IMPRESSION: Clips and postoperative warren ges in the pelvis. View of the pelvis negative for operative purposes. Electronically signed by: Bob Mathis MD. [id number] 08-Feb-2014 11:44 Melanie Negro M.D. IMG DIAGNOSTIC IMAGING PROCE MUKESH Hx general Pathology Report (02/08/2014 8:43 AM CDT) Specimen Anatomical Collection Method Collection Time Receive d Time (Source) Location / / Volume Laterality 02/08/2014 8:43 AM 4 8:43 CDT AM CDT Narrative [facility] - 02/08/2014 8:43 AM CDT ??02/08/2014 Surgical Pathology ?([id number]) ? Requested By: Melanie Negro M.D. ? ?[phone] ? SLIDE DISPOSITION: ? DIAGNOSIS: ?? A. ??Lymph nodes, right pelvic, dissect ion: ??Multiple (7) lymph nodes are negative for tumor. ? B. ??Lymph nodes, left pelvic, dissecti on: ??Multiple (8) lymph nodes are negative for tumor. ? C. ??Prostate, radical prostatectomy: ? 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 ??The dominant nodule measu res 1.5 x 1.4 x 0.6 cm. ??The tumor is not confined to the prostate w ith focal involvement of extraprostatic soft tissues in the left posterior superior region. ?? The seminal vesicles are negative for t umor. ??The surgical margins are negative for tumor. ??See Synoptic Report. ?? Seen in consultation with Dr. Uriel clarke. ? Participated in interpretation: ??May Hameed M.D. ?Synoptic Report: ?? Procedure: ??Radical prostatectomy. Lymph Node Sampling: ??Pelvic lymph nod e dissection. ?? Histologic Type: ??Acinar adenocarcinom a. ?? Histologic Grade ([place] Pattern): ? Primary: ??Grade 3 ? Secondary: ??Grade 4 ? Total: ??7 ? Tertiary Pattern: ??Not present. ?? Tumor Quantitation: ??Multifocal, with a 1.5 x 1.4 x 0.6 cm dominant nodule, left prostate. ??Additional renetta or (#1), 1.0 x 0.8 x 0.7 cm, right prostate. ?? Extraprostatic Extension: ??Present, fo jasen left posterior superior. ?? Seminal Vesicles Invasion: ??Not identi fied. ?? Treatment Effect: ??Treatment effect pr esent. ?? Margins: ??Negative for tumor. ?? Lymph-vascular Invasion: ??Not identifi ed. ?? Pathologic Staging Descriptors: ??y Pathologic Staging (AJCC, 7th edition): ? Primary tumor: ??pT3 ? Regional lymph nodes: ?? pN0 ?N umber examined (total): ??15 ?N umber involved (total): 0 ? Distant Metastasis: ??No t applicable. ?? Prostate Size: ??47 gram, 3.2 (S-I) x 4 .8 (A-P) x 5.6 (R-L) cm. ? The synoptic report incorporates inform ation from all relevant surgical material and includes all requ ired data elements of the current CAP Cancer Protocol. ? 02/10/2014 13:06 Interpreted by: Anneliese Murphy M.D. [id number] Report electronically signed by Anneliese Murphy M.D. Transcribed by: [email or web address] 02/08/2014 13:01:1 8 ? PRELIMINARY FROZEN SECTION CONSULTATION : C. ??Prostate, radical prostatectomy: ? ?Adenocarcinoma ([place] pattern 3 + 4) is identified involving bilateral prostate. ??The dominant nodule measures 1.5 x 1.4 x 0. 6 cm. ??The surgical margins are negative for tumor. ??Hold over for permanent sections. ?? Frozen section histologic interpretatio n performed by: ??Anneliese Murphy M.D. ?? GROSS DESCRIPTION: A. ??Received fresh labeled right pelv ic lymph nodes is a 10.0 x 5.2 x 1.6 cm aggregate of adipose and l ymphatic tissue. ??Lymph nodes submitted for permanent sections only. ??Grossed by LDW. ?? B. ??Received fresh labeled left pelvi c lymph nodes is a 7.8 x 4.1 x 0.6 cm aggregate of adipose and lymph atic tissue. ??All submitted. ?? Grossed by EMR/DJS. ?? C. ??Received fresh labeled prostate is a 47 gram, 3.2 (S-I) x 4.8 (A-P) x 5.6 (R-L) cm radical prostatect missy with nodular hypertrophy. ??The specimen is inked and the prostat ic apex and bladder base margins are submitted perpendicularly. ??Grossly, there is a 1.5 x 1.4 x 0.6 cm cuba-white mass involving t he left superior to inferior posterior prostate. ??There is an addit ional 1.0 x 0.8 x 0.7 cm mass involving the right mid and inferior po sterior prostate. ?? [employer] sections submitted. ??Gr ossed by PATRIC. BLOCK SUMMARY: Part A: ??Right Pelvic Lymph Nodes ?1 Right pelvic LNs 3(A1) ?2 Right pelvic LNs 2(A2) ?3 Right pelvic LNs 1(A3) ?4 Right pelvic LNs 1(A4) ?? Part B: ??Left Pelvic Lymph Nodes ?1 Lt pelvic LNs 3(B1) ?2 Lt pelvic LNs 2(B2) ?3 Lt pelvic LNs 4(B3) ?4 Lt pelvic LNs 1(B4) ?5 Lt pelvic LNs 5(B5) ?6 Lt pelvic LNs 5(B6) ?7 Lt pelvic LNs 4(B7) ?? Part C: ??Prostate ?1 Rt anterior apex margin ?2 Rt posterior apex margin ?3 Rt bladder base margin 1 ?4 Rt bladder base margin 2 ?5 Lt anterior apex margin ?6 Lt posterior apex margin ?7 Lt bladder base margin 1 ?8 Lt bladder base margin 2 ?9 Rt posterior inferior ?10 Rt posterior inferior ?11 Rt mid posterior ?12 Rt mid posterior ?13 Rt posterior superior ?14 Rt posterior superior ?15 Rt seminal vesicle 1 ?16 Rt seminal vesicle 1 ?17 Rt seminal vesicle 2 ?18 Rt seminal vesicle 2 ?19 Lt posterior inferior ?20 Lt mid posterior ?21 Lt mid posterior ?22 Lt posterior superior ?23 Lt posterior superior ?24 Lt seminal vesicle 1 ?25 Lt seminal vesicle 1 ?26 Lt seminal vesicle 2 ?27 Lt seminal vesicle 2 ?? Uriel Doe M.D. ? Procedure Note 12/05/2017 02/08/2014 Surgical Pathology ([id number]) Requested By: Melanie Negro M.D. [phone] SLIDE DISPOSITION: DIAGNOSIS: A. Lymph nodes, right pelvic, dissectio n: Multiple (7) lymph nodes are negative for tumor. B. Lymph nodes, left pelvic, dissection : Multiple (8) lymph nodes are negative for tumor. C. Prostate, radical prostatectomy: Celsa nocarcinoma (Mario pattern 3 + 4) is identified forming tw o masses involving right and left lobes. The dominant nodule measure s 1.5 x 1.4 x 0.6 cm. The tumor is not confined to the prostate w ith focal involvement of extraprostatic soft tissues in the left posterior superior region. The seminal vesicles are negative for t umor. The surgical margins are negative for tumor. See Synoptic Re port. Seen in consultation with Dr. Uriel clarke. Participated in interpretation: May Hameed M.D. Synoptic Report: Procedure: Radical prostatectomy. Lymph Node Sampling: Pelvic lymph node dissection. Histologic Type: Acinar adenocarcinoma. Histologic Grade ([place] Pattern): Primary: Grade 3 Secondary: Grade 4 Total: 7 Tertiary Pattern: Not present. Tumor Quantitation: Multifocal, with a 1.5 x 1.4 x 0.6 cm dominant nodule, left prostate. Additional tumor (#1), 1.0 x 0.8 x 0.7 cm, right prostate. Extraprostatic Extension: Present, foca l left posterior superior. Seminal Vesicles Invasion: Not identifi ed. Treatment Effect: Treatment effect pres ent. Margins: Negative for tumor. Lymph-vascular Invasion: Not identified . Pathologic Staging Descriptors: y Pathologic Staging (AJCC, 7th edition): Primary tumor: pT3 Regional lymph nodes: pN0 Number examined (total): 15 Number involved (total): 0 Distant Metastasis: Not applicable. Prostate Size: 47 gram, 3.2 (S-I) x 4.8 (A-P) x 5.6 (R-L) cm. The synoptic report incorporates inform ation from all relevant surgical material and includes all requ ired data elements of the current CAP Cancer Protocol. 02/10/2014 13:06 Interpreted by: Anneliese Murphy M.D. [id number] Report electronically signed by Anneliese Murphy M.D. Transcribed by: [email or web address] 02/08/2014 13:01:1 8 PRELIMINARY FROZEN SECTION CONSULTATION : C. 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 The dominant nodule measures 1.5 x 1.4 x 0. 6 cm. The surgical margins are negative for tumor. Hold over for p ermanent sections. Frozen section histologic interpretatio n performed by: Anneliese Murphy M.D. GROSS DESCRIPTION: A. Received fresh labeled right pelvic lymph nodes is a 10.0 x 5.2 x 1.6 cm aggregate of adipose and l ymphatic tissue. Lymph nodes submitted for permanent sections only. Grossed by LDW. B. Received fresh labeled left pelvic lymph nodes is a 7.8 x 4.1 x 0.6 cm aggregate of adipose and lymph atic tissue. All submitted. Grossed by EMR/DJS. C. Received fresh labeled prostate is a 47 gram, 3.2 (S-I) x 4.8 (A-P) x 5.6 (R-L) cm radical prostatect missy with nodular hypertrophy. The specimen is inked and the prostatic apex and bladder base margins are submitted perpendicularly. Grossly, there is a 1.5 x 1.4 x 0.6 cm cuba-white mass involving t he left superior to inferior posterior prostate. There is an additio nal 1.0 x 0.8 x 0.7 cm mass involving the right mid and inferior po sterior prostate. [employer] sections submitted. Henrique sed by ARIS. BLOCK SUMMARY: Part A: Right Pelvic Lymph Nodes 1 Right pelvic LNs 3(A1) 2 Right pelvic LNs 2(A2) 3 Right pelvic LNs 1(A3) 4 Right pelvic LNs 1(A4) Part B: Left Pelvic Lymph Nodes 1 Lt pelvic LNs 3(B1) 2 Lt pelvic LNs 2(B2) 3 Lt pelvic LNs 4(B3) 4 Lt pelvic LNs 1(B4) 5 Lt pelvic LNs 5(B5) 6 Lt pelvic LNs 5(B6) 7 Lt pelvic LNs 4(B7) Part C: Prostate 1 Rt anterior apex margin 2 Rt posterior apex margin 3 Rt bladder base margin 1 4 Rt bladder base margin 2 5 Lt anterior apex margin 6 Lt posterior apex margin 7 Lt bladder base margin 1 8 Lt bladder base margin 2 9 Rt posterior inferior 10 Rt posterior inferior 11 Rt mid posterior 12 Rt mid posterior 13 Rt posterior superior 14 Rt posterior superior 15 Rt seminal vesicle 1 16 Rt seminal vesicle 1 17 Rt seminal vesicle 2 18 Rt seminal vesicle 2 19 Lt posterior inferior 20 Lt mid posterior 21 Lt mid posterior 22 Lt posterior superior 23 Lt posterior superior 24 Lt seminal vesicle 1 25 Lt seminal vesicle 1 26 Lt seminal vesicle 2 27 Lt seminal vesicle 2 Uriel Doe M.D. Melanie Negro M.D. LAB PATHOLOGY/CYTOLOGY ORDER ALFONZO Performing Organization Address City/State/ZIP Code Phon e Number [facility] - [address] [place], [place] [address] [facility] documented in this encounter Visit Diagnoses Not on filedocumented in this encounter
--- OUTSIDE RECORDS SUMMARY | 2022-06-06 12:14 | XMS_ITS | Encounter Summary ---
:1945 Author Organization [facility] Address [address] [place] [id number] Care Team Providers Name Role Phone Unavailable Primary Care Provider Unavailable Reason for Referral Outpatient (Routine) - Closed Specialty Diagnoses / Procedures Referred By Contact Refer red To Contact Vascular Medicine Diagnoses Thrombosis Deep Vein Personal History Rashid Ventura [facility] P.A.-C. [address] [place] [address] Referral ID Status Reason Start Date Expiration Date Visits Requ ested Visits Authorized [id number] Closed 09/29/2019 09/28/2020 1 1 E CATCHER Outpatient (Routine) - Closed Specialty Diagnoses / Procedures Referred By Contact Refer red To Contact Medical Oncology / Diagnoses Carcinoid Syndrome (HCC) Carcinoid Ileum Malignant (HCC) Rashid Ventura [facility] Oncology P.A.-C. [address] [place] [address] Referral ID Status Reason Start Date Expiration Date Visits Requ ested Visits Authorized [id number] Closed 09/29/2019 09/28/2020 1 1 Scheduling Instructions Case was discussed with gómez. Pt [facility]. Will being cd with him to appt. E CATCHER Reason for Visit Reason Comments Carcinoid Syndrome Rashid Ventura Outpatient (Routine) - Closed Specialty Diagnoses / Referred By Contact Referred To Contact Procedures Gastroenterology and Diagnoses Carcinoid Syndrome (HCC) Rosalinda Yancey [facility] Hepatsimon Hester M.D. [address] [place] [address] Referral ID Status Reason Start Date Expiration Date Visits Requ ested Visits Authorized [id number] Closed 09/22/2019 09/21/2020 1 1 Encounter Details Date Type Department Care Team Description 09/29/2019 Comprehensive Visit Division of Alia Ventura Ileum Malignant (HCC) (Primary Dx); [facility], Carcinoi d Syndrome (HCC); [place], [place] P.A.-C. Nodule Thyroid; [address] Thrombosis Deep [place] [address] Social History Tobacco Use Types Packs/Day [...] or relatives? How often do you attend buddhist or More than 4 times per year 09/30/2019 episcopal services? Do you belong to any clubs or Yes 09/30/2019 organizations such as buddhist groups, unions, fraternal or athletic groups, or [...] have completed or the highest Darrin, MEd, CLOSER ON, BERTHA) degree you have received? Sex Assigned at Date Recorded Not on file documented as of this encounter Last Filed Vital Signs Vital Sign Reading Time Taken Comments Blood Pressure 116/75 09/29/2019 8:17 AM FRAME CATCHER Pulse 58 09/29/2019 8:17 AM FRAME CATCHER Temperature 36.3 ??C (97.3 ??F) 09/29/2019 8:17 AM FRAME CATCHER Respiratory Rate - - Oxygen Saturation - - Inhaled Oxygen Concentration - - Weight 92 kg (202 lb 13.2 oz) 09/29/2019 8:17 AM FRAME CATCHER Height 179 cm (5' 10.47) 09/29/2019 8:17 AM FRAME CATCHER Body Mass Index 28.71 09/29/2019 8:17 AM FRAME CATCHER documented in this encounter H&P Notes Eli Ohara M.D. - 09/29/2019 8:20 AM CST SUBJECTIVE This is a no-charge supervisory note. HISTORY OF PRESENT ILLNESS Mr. 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 Metastatic neuroendocrine tumor In 2008, Mr. 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 He had a discussion with Dr. Bateman regarding surgery, and the patient's understanding of the possible complications from surgery were that it might lead to some issues with what I think was described as possible ischemia and need for resection of further small intestinal regions. He also met with Medical Oncology who at that point recommended observation and octreotide. He has been followed fairly regularly and 1 month ago started to develop flushing. He also has been feeling prior to this the sensation where he would feel like he was hungry, kind of a gnawing feeling in his stomach that would alleviated by eating. His also said that he had started to develop borborygmi. His flushing would develop after eating. He would get warm and his face would flush and the rest of his body would feel cold. He denies wheezing. He does not really have any abdominal pain but then the symptoms prompted a CT scan at the [facility], (this was done on August 26), and he had 2 hepatic lesions seen in the liver that had been called cysts and they were unchanged since 2017. There was also a central mesenteric mass that had been present for about a year. It was 3.9 x 4.1 cm in size, and he had more sclerotic areas on the pelvis, s pine, and ribs, and apparently one of those sclerotic lesions ____ Q#2.1: was seen as far back sincehis original diagnosis in 2008. He subsequently has been placed on octreotide and is now using long-acting as well as short-acting to try to manage his flushing better. His hunger pain and gnawing sensations have improved. He states that he has lost a few pounds, but he denies early satiety. He does not have postprandial pain. History of DVT and stroke Mr. Villeda had knee surgery in 2013 that was done on his right knee. He was not on any anticoagulation, and then he developed a blood clot. When he had his left knee surgery performed in 2015, he took Eliquis 10 days prior to the procedure and then after surgery and still developed a blood clot. Karl has a history of having had a stroke that affected the right side of his body, and that was in October of 2018 and this occurred when he was on Eliquis for his AFib and A flutter. He states that when he has taken Xarelto in the past he developed an oozing bruise on his hand and said that he feltthat the blood thinner was too excessive. Right now, he does have some residual right-sided weaknessand he feels a lack of balance sometimes where he will list to the right. He also has occasional dizziness and that is when he feels like he wobbles towards the right side and describes a recent episode when he just kept going left and he was concerned he was maybe having a TIA at that time. When he had the stroke in October, he was not given thrombolytic therapy, but he did I think go through 3 weeks of very expensive physical rehab and was given just IV heparin as the immediate treatment for the stroke. Prostate cancer I note also that he has had treatment for prostate cancer that was treated initially with high intensity focused ultrasound. It treated many areas but then it recurred and he underwent a prostatectomy in 2012. I reviewed his PFH and CVI as noted by Rashid Ventura, physician's integration assistant in her note of today. ASSESSMENT / PLAN #1 Metastatic neuroendocrine tumor I agree with Rashid Ventura's well-outlined recommendation, assessment, and treatment plan. Rashid Ventura has already discussed this case with Dr. Sullivan, the expert medical oncologist, particularlyin the field of neuroendocrine tumors. He agrees with the plan that Mr. Villeda will have his DOTATATE scan at the [facility] and then the CD will be sent to us for review. He also will meet with Dr. Sullivan following that to review treatment options such as peptide receptor or radionuclide therapy, and Mr. Villeda knows it by the term Lutathera. Also note that he had a 24-hour urinary 5-HIAA performed. #2 Hypercoagulability He will be seen in Thrombophilia Clinic given the fact that he developed a postop blood clot even onEliquis and the fact that on Eliquis with the AFib he also then had a stroke. Eli Ohara M.D. CT CT Job ID: [id number] E CATCHER documented in this encounter Consult Notes Rashid Ventura P.A.-C. - 09/29/2019 8:20 AM CST Referring provider: Rosalinda Yancey M.D. [facility] and [address] [address] CHIEF COMPLAINT : Chief Complaint Patient presents with ??? Carcinoid Syndrome Rashid Ventura HISTORY OF PRESENT ILLNESS: Mr. 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 The patient was actually diagnosed with a small bowel carcinoid with involved lymph nodes in [address] scan on 10/24/2008 for surveillance of prostate cancer. However the CT also showed at least three enlarged lymph nodes are seen along the mesentery Measuring 2.5, 25 and 1.8 cm. One of the lymph nodes was biopsied and came back as a grade 1 out of 4 neuroendocrine tumor. The patient went on to have a CT enterography on 11/05/2008 which confirmed the mesenteric adenopathy As well as multiple small enhancing nodules in the ileum, the largest measuring 1.2 cm. There was also 1.2 cm sclerotic focus in the right superior L3 vertebral body. An Octreotide scan was subsequently performed on November 142008 which demonstrated intense octreotide localizaton to the the enlarged central mesenteric lymph nodes. No abnormal foci was seen in thesmall bowel loops. The patient was evaluated in the [facility] as well as by Colorectal Surgery and Medical Oncology. The colorectal surgery was not sure if he would be able to resect the mesenteric lymph nodes due to the fact that they wrapped around some of the mesenteric vessels. Medical Oncology recommended that his prostate cancer be addressed before proceeding with any treatment of his carcinoid. The patient went on to have regular imaging thru the [facility] with no evidence of progression. He was reevaluated by Medical Oncology her in 2013 and due to the stability and symptomatic nature of his carcinoid recommended continued observation. He recently developed symptoms of flushing and a gnawing feeling in his stomach. He subsequently underwent a CT of the Chest abdomen and [facility] [place] [facility] the follow[facility]. Enlarging mesenteric mass measuring up to 4.1 cm previously 3.9 cm in 2018 consistent with patients known carcinoid tumor. This didn't show FDG avidity on the interval PET CT from 08/12/2018 2. Innumerable new small sclerotic foci of the axial skeleton concerning for metastatic disease. 3. Hepatic hypodensities which are grossly unchanged in favor benign hepatic cysts. 4. Right renal cortical cyst. 5. Stable right middle lobe lung nodule. No new or enlarging pulmonary nodules. 6. 1.5 cm solid thyroid nodule of the right thyroid lobe, increased from 1.2 cm since 02/2019. Labs: Hgb-13.7 MCV-100.7 The patient denies any diarrhea but once again endorses flushing in addition to abdominal pain/gnawuing. He was started on short acting octreotide in mid August and this did decrease/improve his symptoms. He ended up having a week where he did not have the octreotide shots due to issues with the prescription. His abodminal symptoms returned and were quite severe. He is now on long action Octreotideand is doing well symptomatically. He denies any symptoms concerning for a small bowel obstruction. He denies any bone pain. He denies any significant unintentional weight loss. The patient does have a past medical of multiple thrombolytic events. Following both his knee surgeries he developed VT eat despite being on anticoagulation. In addition he experienced a stroke despitethe fact he was on Eliquis for his known atrial fibrillation. From a functional standpoint the patient is quite active on a regular basis. He still does road cycling as well as works out at the gym on a regular basis he denies any concerning chest pain or shortness of breath. PAST MEDICAL HISTORY: Atrial flutter History of a DVT and PE (related to knee replacement) Prostate cancer, s/p prostectomy Stroke in October 2018, some residual balance and memory issues. FAMILY HISTORY: Not obtained SOCIAL HISTORY: . Never smoker. Occasional alcohol use. Presents with Katie. PHYSICAL EXAM: General: The patient was alert and oriented and appropriate conversation. Gait: The patient was able to ambulate to the exam table with no difficulties ENT: Oropharynx was visualized and was overall normal. Mallampati 3 Vascular: No carotid bruits Heart:: Regular rate and rhythm Lungs: clear to ausculation Abdomen: soft, , non distended. No masses palpate. Tenderness to palpation in the mid upper abdomen.No signs of peritonitis Extremities: Patient has lymphedema from his prostate cancer surgery. He therefore has a compressionsock on his left leg. 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 #2 Personal history of multiple VT E despite anticoagulation #3 Thyroid nodule I discussed Mr. Villeda's case with Dr. Sullivan in Medical Oncology. The patient is currentlyscheduled to undergo a PET DOTATATE a week from Thursday at [facility]. Dr. Sullivan agreed with this to determine the extent of his disease as he most likely will be a good candidate for PRRT (peptide receptor radioligand therapy). We will get him scheduled to be seen in our Neuroendocrine Clinic after he has undergone his DOTATATE. We have asked him to request a CD with the images on it and hand carry it to his appointment. After discussion with Dr. Ohara we have also put a referral through to our thrombophilia Clinic due to his history of multiple VTE. I have also ordered a ultrasound of his thyroid just to ensure this is benign in nature. Was a pleasure to meet the patient and his and participate in their care. Approximately 60 minutes were spent with patient. Greater than 50 percent in counseling. Results and recommendations will be communicated back to the patients referring provider Rosalinda Yancey M.D. [facility] [place] [address] E CATCHER documented in this encounter Plan of Treatment Scheduled Referrals Name Type Priority Associated Order Schedule Diagnoses Oncology - Medical, GI Outpatient Referral Routine Carcinoid S yndrome Expected: consult (clinic) (HCC) 09/29/2019 Carcinoid Ileum (Approximate ), Malignant (HCC) Expires: 09/29/2022 Vascular Medicine - Outpatient Referral Routine Thrombosis Mady p Expected: Thrombophilia consult Vein Personal 09/29 (clinic) History (Approximate), Expires: 09/29/2022 documented as of this encounter Results US Thyroid (09/30/2019 2:02 PM FRAME CATCHER) Anatomical Region Laterality Modality Head and Neck, Ultrasound RST LOS, Ultrasound ARZ LOS, N/A Ultrasound Ultrasound FLA LOS Specimen (Source) Anatomical Collection Method Collection Time Re ceived Time Location / / Volume Laterality 09/30/2019 2:04 PM FRAME CATCHER Impressions 09/30/2019 2:13 PM FRAME CATCHER Multiple spongiform extremely low suspicion thyroid nodules. Small probable thyroglossal duct cyst in the s ubmental region. Narrative 09/30/2019 2:13 PM FRAME CATCHER EXAM: US THYROID COMPARISON: None FINDINGS: The right thyroid lobe measures: 1.9 cmx 2.2 cmx5.8 cm The left thyroid lobe measures: 1.5 cmx2 .0 cmx5.2 cm The isthmus measures: 3 mm in AP diamete r. Thyroid parenchymal evaluation shows mul tiple spongiform extremely low suspicion nodules bilaterally. The largest spongif orm nodules in the lower right thyroid lobe and measures 1.0 x 1.6 x 1.7 cm. 5 x 12 x 14 mm submental cystic structur e at midline consistent with a thyroglossal duct cyst. Lymph nodes: ??Neck levels 1-7 were surv eyed and demonstrated a graphically normal-appearing lymph nodes. The thyroid nodule descriptions and leatha gories are based on the AskMayoExpert Thyroid Nodule Care Process Model and AC R TI-RADS. Link: https://askmayoexpert.[facility].org/top ic/clinical-answers/cnt-69757431/sec-203 7778 ?? ACR Link: https://www.acr.org/Clinical-Resources/R cyqgtcko-kbp-Rrqu-Systems/TI-RADS The AskMayoExpert Thyroid Nodule CPM sta sierra the following recommendations: ? No suspicion or Extremely low-larissa picion nodule: No FNA, no imaging f/u ? Low-suspicion nodule: FNA if grea ter than or equal to 25 mm; US f/u in 2-5 yrs if greater than or equal to 15 mm ? Intermediate-suspicion nodule: FN A if greater than or equal to 15 mm; US f/u in 1-3 yrs if greater than or equal to 10 mm ? High-suspicion nodule: FNA if gre ater than or equal to 10 mm (or smaller if desired); US f/u in 1 yr if not FNA Procedure Note Desire Vidal M.D. - 09/30/2019For matting of this note might be different from the original. EXAM: US THYROID COMPARISON: None FINDINGS: The right thyroid lobe measures: 1.9 cmx 2.2 cmx5.8 cm The left thyroid lobe measures: 1.5 cmx2 .0 cmx5.2 cm The isthmus measures: 3 mm in AP diamete r. Thyroid parenchymal evaluation shows mul tiple spongiform extremely low suspicion nodules bilaterally. The largest spongif orm nodules in the lower right thyroid lobe and measures 1.0 x 1.6 x 1.7 cm. 5 x 12 x 14 mm submental cystic structur e at midline consistent with a thyroglossal duct cyst. Lymph nodes: Neck levels 1-7 were survey ed and demonstrated a graphically normal-appearing lymph nodes. The thyroid nodule descriptions and leatha gories are based on the AskMayoExpert Thyroid Nodule Care Process Model and AC R TI-RADS. Link: https://askmayoexpert.[facility].org/top ic/clinical-answers/cnt-60230119/sec-203 7778 ACR Link: https://www.acr.org/Clinical-Resources/R ridfvswq-zcq-Txjv-Systems/TI-RADS The AskMayoExpert Thyroid Nodule CPM sta sierra the following recommendations: No suspicion or Extremely low-suspicion nodule: No FNA, no imaging f/u Low-suspicion nodule: FNA if greater th an or equal to 25 mm; US f/u in 2-5 yrs if greater than or equal to 15 mm Intermediate-suspicion nodule: FNA if g reater than or equal to 15 mm; US f/u in 1-3 yrs if greater than or equal to 10 mm High-suspicion nodule: FNA if greater t villegas or equal to 10 mm (or smaller if desired); US f/u in 1 yr if not FNA IMPRESSION: Multiple spongiform extremely low suspic ion thyroid nodules. Small probable thyroglossal duct cyst in the s ubmental region. Rashid Ventura P.A.-C. IMG US PROCEDURES (ABNORMAL) Prothrombin Time (PT) (09/29/2019 10:45 AM FRAME CATCHER) [facility] Method Time Signature Prothrombin 15.6 (H) 9.4 - 12.5 09/29/2019 DTL Time, P sec 11:22 AM FRAME CATCHER INR 1.4 0.9 - 1.1 09/29/2019 DTL 11:22 AM FRAME CATCHER Comment: ----ADDITIONAL INFORMATION---- Standard intensity warfarin therapeutic range: 2.0 to 3.0 ?? High intensity warfarin therapeutic rang e: 2.5 to 3.5 Specimen Anatomical Collection Method Collection Time Receive d Time (Source) Location / / Volume Laterality Blood (Blood, 09/29/2019 10:45 09/29/2019 Venous) AM FRAME CATCHER 11:04 AM FRAME CATCHER Rashid Ventura P.A.-C. LAB BLOOD ADD-ON Performing Organization Address City/State/ZIP Code Phon e Number [facility] - [address] [place], [place] [address] [facility] [place] [address] Laboratories-[facility] [address] [facility] (ABNORMAL) CBC with Differential, Blood (09/29/2019 10:45 AM FRAME CATCHER) [facility] Method Time Signature Hemoglobin 13.6 13.2 - 09/29/2019 DTL 16.6 g/dL 11:13 AM FRAME CATCHER Hematocrit 41.8 38.3 - 09/29/2019 DTL 48.6 % 11:13 AM FRAME CATCHER Erythrocytes 4.14 (L) 4.35 - 09/29/2019 DTL 5.65 11:13 AM FRAME CATCHER x10(12)/L MCV 101.0 (H) 78.2 - 09/29/2019 DTL 97.9 fL 11:13 AM FRAME CATCHER RBC Distrib Width 11.8 11.8 - 09/29/2019 DTL 14.5 % 11:13 AM FRAME CATCHER Platelet Count 363 (H) 135 - 317 09/29/2019 DTL x10(9)/L 11:13 AM FRAME CATCHER Leukocytes 4.6 3.4 - 9.6 09/29/2019 DTL x10(9)/L 11:13 AM FRAME CATCHER Neutrophils 2.46 1.56 - 09/29/2019 DTL 6.45 11:13 AM FRAME CATCHER x10(9)/L Lymphocytes 1.25 0.95 - 09/29/2019 DTL 3.07 11:13 AM FRAME CATCHER x10(9)/L Monocytes 0.62 0.26 - 09/29/2019 DTL 0.81 11:13 AM FRAME CATCHER x10(9)/L Eosinophils 0.27 0.03 - 09/29/2019 DTL 0.48 11:13 AM FRAME CATCHER x10(9)/L Basophils 0.03 0.01 - 09/29/2019 DTL 0.08 11:13 AM FRAME CATCHER x10(9)/L Specimen Anatomical Collection Method Collection Time Receive d Time (Source) Location / / Volume Laterality Blood (Blood, 09/29/2019 10:45 09/29/2019 Venous) AM FRAME CATCHER 11:04 AM FRAME CATCHER Rashid Ventura P.A.-C. LAB BLOOD ADD-ON Performing Organization Address City/[facility] Phon e Number [facility] - [address] [place] [address] Bilirubin, Direct (09/29/2019 10:45 AM FRAME CATCHER) P athologist Signature Bilirubin, <0.2 0.0 - 0.3 09/29/2019 DTL Direct, S mg/dL 12:01 PM FRAME CATCHER Specimen Anatomical Collection Method Collection Time Receive d Time (Source) Location / / Volume Laterality Blood (Blood, 09/29/2019 10:45 09/29/2019 Venous) AM FRAME CATCHER 11:04 AM FRAME CATCHER Rashid Ventura P.A.-C. LAB BLOOD ADD-ON Performing Organization Address City/[facility] Phon e Number [facility] - [address] [place] [address] Comprehensive Metabolic Panel (09/29/2019 10:45 AM FRAME CATCHER) P athologist Signature Potassium, S 4.6 3.6 - 5.2 09/29/2019 DTL mmol/L 12:01 PM FRAME CATCHER Sodium, S 143 135 - 145 09/29/2019 DTL mmol/L 12:01 PM FRAME CATCHER Chloride, S 103 98 - 107 09/29/2019 DTL mmol/L 12:01 PM FRAME CATCHER Bicarbonate, S 27 22 - 29 09/29/2019 DTL mmol/L 12:01 PM FRAME CATCHER Anion Gap 13 7 - 15 09/29/2019 DTL 12:01 PM FRAME CATCHER BUN (Blood Urea 15 8 - 24 09/29/2019 DTL Nitrogen), S mg/dL 12:01 PM FRAME CATCHER Creatinine 1.02 0.74 - 09/29/2019 DTL 1.35 mg/dL 12:01 PM FRAME CATCHER eGFR-Non 72 >=60 09/29/2019 DTL Black/ mL/min/BSA 12:01 PM FRAME CATCHER Tongan Comment: ----ADDITIONAL INFORMATION---- Estimated GFR calculated using the 2009 CKD_EPI creatinine equation. eGFR-Black/ 83 >=60 mL/min/BSA 2019 12:01 PM FRAME CATCHER DTL Comment: ----ADDITIONAL INFORMATION---- Estimated GFR calculated using the 2009 CKD_EPI creatinine equation. Calcium, Total, S 9.2 8.8 - 10.2 mg/dL 09/29/2019 12:0 1 PM FRAME CATCHER DTL Glucose, S 107 70 - 140 mg/dL 09/29/2019 12:01 PM FRAME CATCHER DTL Protein, Total, S 6.9 6.3 - 7.9 g/dL 09/29/2019 12:01 PM FRAME CATCHER DTL Albumin, S 3.9 3.5 - 5.0 g/dL 09/29/2019 12:01 PM FRAME CATCHER DTL Aspartate Aminotransferase 30 8 - 48 U/L 09/29/2019 1 2:01 PM FRAME CATCHER DTL (AST), S Alkaline Phosphatase, S 89 40 - 129 U/L 09/29/2019 12 :01 PM FRAME CATCHER DTL Alanine Aminotransferase (ALT), 34 7 - 55 U/L 020 12:01 PM FRAME CATCHER DTL S Bilirubin, Total, S 0.3 <=1.2 mg/dL 09/29/2019 12:01 P M FRAME CATCHER DTL Specimen Anatomical Collection Method Collection Time Receive d Time (Source) Location / / Volume Laterality Blood (Blood, 09/29/2019 10:45 09/29/2019 Venous) AM FRAME CATCHER 11:04 AM FRAME CATCHER Rashid Ventura P.A.-C. LAB BLOOD ADD-ON Performing Organization Address City/State/ZIP Code Phon e Number [facility] - [address] [place], [place] [address] [facility] [place] [address] [facility] [address] documented in this encounter Visit Diagnoses Diagnosis Carcinoid Ileum Malignant (HCC) - Primar y Carcinoid Syndrome (HCC) Nodule Thyroid Thrombosis Deep Vein Personal History Nodule Thyroid documented in this encounter
--- OUTSIDE RECORDS SUMMARY | 2022-06-06 12:14 | XMS_ITS | Encounter Summary ---
:1945 Author Organization [facility] Address [address] [place] [address] Care Team Providers Name Role Phone Unavailable Primary Care Provider Unavailable Encounter Details Date Type Department Care Team Description 11/20/2008 Hospital Encounter HX NO MAPPING Social History Tobacco Use Types Packs/Day Years [...] or relatives? How often do you attend orthodox or More than 4 times per year 09/30/2019 hoahaoism services? Do you belong to any clubs or Yes 09/30/2019 organizations such as orthodox groups, unions, fraternal or athletic groups, [...]
--- OUTSIDE RECORDS SUMMARY | 2022-06-06 12:14 | XMS_ITS | Encounter Summary ---
:1945 Author Organization [facility] Address [address] [place] [address] Care Team Providers Name Role Phone Unavailable Primary Care Provider Unavailable Reason for Visit Reason Comments Neoplasia Outside CD Encounter Details Date Type Department Care Team Description 10/03/2019 Clinical Division of Lorenzo Neoplasia; Outs christine Communication Gastroenterology in [place], [place] P.A.-C. 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 Sex Assigned at Date Recorded Not on file documented as of this encounter Plan of Treatment Not on filedocumented as of this encounter Results Interpretation of Outside CT Abdomen and or Pelvis (10/04/2019 7:45 AM SERVICE DELIVERY ANALYST) Anatomical Region Laterality Modality Abdomen, Pelvis, Abdominal RST LOS, Abdominal ARZ LOS, N/A Computed Tomography Abdominal FLA LOS, Other Specimen (Source) Anatomical Collection Method Collection Time Re ceived Time Location / / Volume Laterality 10/05/2019 8:03 AM SERVICE DELIVERY ANALYST Impressions 10/05/2019 8:23 AM SERVICE DELIVERY ANALYST 1. 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 2. Several new sclerotic osseous metasta ses. Narrative 10/05/2019 8:23 AM SERVICE DELIVERY ANALYST EXAM: ??INTERPRETATION OF OUTSIDE CT ABDOMEN AND OR PELVIS COMPARISON: ??[facility] PET/CT 11/29/2013. CT chest, abdomen and pelvis 04/14/2013. Octreoscan 11/14/2008. FINDINGS: ??Interpretation of outside CT abdomen and pelvis with intravenous contrast performed 08/26/2019. CT chest component of this exam is reported separately. Note that this exam is performed in the portal venous phase which has less sensitivity for detection of carcinoid t umors. Central mesenteric lymphadenopathy, the largest measuring 3.9 x 3.7 cm (previously 4.0 x 3.3 cm on 04/14/2013). The 2nd largest measures 2.1 x 1.4 cm (previously 1.5 x 1.1 cm on 04/14/2013). ??Enlargement of left para-aortic abdominal lymph nodes, largest measuring 1.7 x 1.3 cm (previously 0.7 x 0.4 cm on 04/14/2013). Otherwise, no enlarged l ymph nodes. No suspicious hepatic lesions. Few well circumscribed hepatic hypodensities which have been present dating back to 0 04/14/2012 and likely represent benign cysts. The largest measures 2.0 x 1.5 cm within the medial right hepatic lobe (series 2 image 299). Development of several small sclerotic l esions throughout the axial skeleton, for example within the superior right il iac crest (series 2 image 458) and within the posterior right sacrum (serie s 2 image 490). No CT evidence for peritoneal metastases . Interval prostatectomy changes. Few scattered colonic diverticuli. The bilia ry system, spleen, and adrenals are within normal limits. Partial fatty repl acement of the pancreas which is otherwise normal. Small duodenal diverti culum. Right lower pole renal cortical cyst. Kidneys are otherwise unremarkable . Procedure Note Ramakrishna Arora M.D. - 10/05/2019Formatt ing of this note might be different from the original. EXAM: INTERPRETATION OF OUTSIDE CT ABDOM EN AND OR PELVIS COMPARISON: Choline PET/CT 11/29/2013. C T chest, abdomen and pelvis 04/14/2013. Octreoscan 11/14/2008. FINDINGS: Interpretation of outside CT a bdomen and pelvis with intravenous contrast performed 08/26/2019. CT chest component of this exam is reported separately. Note that this exam is performed in the portal venous phase which has less sensitivity for detection of carcinoid t umors. Central mesenteric lymphadenopathy, the largest measuring 3.9 x 3.7 cm (previously 4.0 x 3.3 cm on 04/14/2013). The 2nd largest measures 2.1 x 1.4 cm (previously 1.5 x 1.1 cm on 04/14/2013). Enlargement of left para-aortic abdominal lymph nodes, largest measuring 1.7 x 1.3 cm (previously 0.7 x 0.4 cm on 04/14/2013). Otherwise, no enlarged l ymph nodes. No suspicious hepatic lesions. Few well circumscribed hepatic hypodensities which have been present dating back to 0 04/14/2012 and likely represent benign cysts. The largest measures 2.0 x 1.5 cm within the medial right hepatic lobe (series 2 image 299). Development of several small sclerotic l esions throughout the axial skeleton, for example within the superior right il iac crest (series 2 image 458) and within the posterior right sacrum (serie s 2 image 490). No CT evidence for peritoneal metastases . Interval prostatectomy changes. Few scattered colonic diverticuli. The bilia ry system, spleen, and adrenals are within normal limits. Partial fatty repl acement of the pancreas which is otherwise normal. Small duodenal diverti culum. Right lower pole renal cortical cyst. Kidneys are otherwise unremarkable . IMPRESSION: 1. Progressive metastases involving mese nteric and retroperitoneal lymph nodes. 2. Several new sclerotic osseous metasta ses. Rashid Ventura P.A.-C. IMG CT PROCEDURES documented in this encounter Visit Diagnoses Diagnosis Carcinoid Syndrome (HCC) - Primary Carcinoid Syndrome (HCC) documented in this encounter
--- OUTSIDE RECORDS SUMMARY | 2022-06-06 12:14 | XMS_ITS | Encounter Summary ---
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 Sex Assigned [...] Procedure Name Priority Date/Time Associated Comments Diagnosis US THYROID RAD - Routine 09/30/2019 2:02 Nodule Thyroid Results f or this (most inpatients PM DECISION SUPPORT ANALYST procedure a re in and all the results outpatients) section. documented in this encounter Results US Thyroid (09/30/2019 2:02 PM DECISION SUPPORT ANALYST) Anatomical Region Laterality Modality Head and Neck, Ultrasound RST LOS, Ultrasound ARZ LOS, N/A Ultrasound Ultrasound FLA LOS Specimen (Source) Anatomical Collection Method Collection Time Re ceived Time Location / / Volume Laterality 09/30/2019 2:04 PM DECISION SUPPORT ANALYST Impressions 09/30/2019 2:13 PM DECISION SUPPORT ANALYST Multiple spongiform extremely low suspicion thyroid nodules. Small probable thyroglossal duct cyst in the s ubmental region. Narrative 09/30/2019 2:13 PM DECISION SUPPORT ANALYST EXAM: US THYROID COMPARISON: None FINDINGS: The [...] Process Model and AC R TI-RADS. Link: [email or web address].[email or web address]/top ic/clinical-answers/[email or web address]/[email or web address] 7778 ?? ACR Link: https://www.acr.org/Clinical-Resources/R phhqwoxv-jmi-Ixns-Systems/TI-RADS The AskMayoExpert Thyroid Nodule CPM sta sierra [...] Process Model and AC R TI-RADS. Link: https://[email or web address].[email or web address].org/top ic/clinical-answers/cnt-63028351/sec-203 7778 ACR Link: https://www.acr.org/Clinical-Resources/R nbvbixee-uub-Hozt-Systems/TI-RADS The [facility]MayoExpert Thyroid Nodule CPM sta sierra [...] region. Rashid Ventura P.A.-C. IMG US PROCEDURES documented in this encounter Visit Diagnoses Diagnosis Nodule Thyroid documented in this encounter
--- OUTSIDE RECORDS SUMMARY | 2022-06-06 12:14 | XMS_ITS | Encounter Summary ---
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 [facility] Procedures MR Abdomen without and with IV Contrast [address] [place], [place] [address] Referral ID Status Reason Start Date Expiration Date Visits Requ ested Visits Authorized [id number] Closed 10/11/2019 10/10/2020 1 1 MAN Outpatient (Routine) - Closed Specialty Diagnoses / Procedures Referred By Contact Refer red To Contact Oncology Mikhail Yip M. D. 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 [address] [place] [address] Referral ID Status Reason Start Date Expiration Date Visits Requ ested Visits Authorized [id number] Closed 09/29/2019 09/28/2020 1 1 Encounter Details Date Type Department Care Team Description 10/11/2019 Comprehensive Visit Department of Ethan Aldridge Carcinana id Tumor Malignant (HCC) (Primary Dx); Oncology in [place] Carcinoid Syndrome (HCC); [place], [place] [address] [place] [address] Carcinoid Ileum Malignant (HCC); [address] [place] [address] Primary Malignant Neoplasm O f Prostate ([place]) [place] [phone] Social History Tobacco Use Types Packs/Day Years [...] More than 4 times per year 09/30/2019 yazdanism services? Do you belong to any clubs [...] have completed or the highest Darrin, MEd, [employer], [employer]ER[employer]A) degree you have received? Sex Assigned at Date Recorded Not on file documented as of this encounter Consult Mikhail Nava M.D. - 10/11/2019 10:00 AM CST Referring Provider: Rashid Ventura P.A.-C. [address] [place] [phone] Primary oncologist: Dr. Aldridge Primary fellow: Dr. Yip Chief complaint/reason for visit: Well-differentiated neuroendocrine carcinoma, [...] Symptoms improvedrapidly. August 26, 2019: Outside CT A/P; interpretation of CT chest pending (ADDENDUM) ?? Central mesenteric lymphadenopathy, the largest measuring [...] at unknown dose. Symptoms remained improved. October 07, 2019: DOTATE scan (elsewhere) ?? Innumerable metastasis throughout the bones of the body, with liver, retroperitoneal, periaortic,mesenteric, and hilar metastasis ?? Focus of hypermetabolism within the mid body of the pancreas, presumably a metastatic focus Interval History: Records are a bit sparse but Mr. Villeda and his , Ayalexi, have excellent medical literacy and recollection of events. Mr. Villeda presents today for second opinion regarding management of his neuroendocrine tumor. As outlined above, he was initially diagnosed back in 2008 during workup of his prostate cancer. [facility] with [facility] imagingand reports stability on regularly obtain surveillance CTs (no records available). He also reports that his chromogranin levels and 24 hour urine studies were normal. In June of 2019, Mr. Villeda developed frequent flushing episode and gnawing abdominal pain. Hedenies respiratory symptoms and severe diarrhea. He was started on short-acting octreotide in August and his symptoms responded rapidly. Subsequently, he was transitioned to long-acting octreotide atan unknown dose on 09/20/2018. At present, he is having no flushing or diarrhea (only 2-3 bowel movements per day), and his abdominal discomfort is minimal. He has no bony pain, constitutional symptoms, or weight loss. He denies cardiopulmonary symptoms. His ECOG performance status is 0. Review of systems: All other systems negative [...] level. 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 He is to Aya with no children. He is a never smoker. Family History: Per EMR OBJECTIVE There were no vitals filed for this visit. There is no height or weight on file to calculate BSA. Physical exam: General: No acute distress. ECOG 0. HEENT: Hearing grossly intact. Moist mucous membranes with no lesions or mucositis appreciated. Lymph: No appreciable cervical, supraclavicular, axillary, or inguinal lymphadenopathy. Heart: Rate controlled. Irregular rhythm. No murmurs, rubs, or gallops appreciated. Lungs: Clear to auscultation bilaterally. Abdomen: Soft and non-tender with no distension, hepatosplenomegaly, or masses. Neurologic: Face symmetric. Pupils equal. Intelligible speech. Antigravity in all 4 extremities. Skin: No rash or lesions on examined surfaces. Psych: Appropriate mood and affect. Diagnostics: I reviewed the pertinent laboratory and other diagnostic data. I reviewed the imaging studies and agree with the interpretation as recorded. CBC notable for only mild thrombocytosis (363) Renal function is normal. Liver function is normal. A transthoracic echocardiogram was obtained recently. This shows only thickened aortic valve with notumor vegetation, mildly thickened mitral valve with mild regurgitation, normal pulmonary valve withtrivial regurgitation, and normal tricuspid valve with mild regurgitation. 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 Villeda today. Briefly, he was diagnosed with well-differentiated neuroendocrine carcinoma back in 2008 while working up his prostate cancer. At that time, there were small enhancing nodules of the ileum on CT enterography and involvement of central mesenteric lymph nodes by Octreoscan with no clear evidence of disease elsewhere. He was asymptomatic and the decision was made to observe. We do not have all the records, but per report, imaging and symptoms were stable until June 2019 when he developed signs of carcinoid syndrome. He has responded well, symptomatically, to octreotide and returns today with new imaging that was obtained in [place]. We have a CT scan (from elsewhere) showing central mesenteric lymphadenopathy not all that progressed from 2012/2013 and no suspicious hepatic lesions, though this exam was performed in the portal venous phase which is less sensitive for carcinoid tumors. The outside DOTATATE scan hasn't been interpreted here but shows innumerable metastases throughout the bone, with liver metastasis, retroperitoneal, periaortic, mesenteric, and hilar tumor. In the liver, the hypermetabolic lesions are small and difficult to characterize. Again, he just started the octreotide and symptoms are well controlled. A recent KENDY shows no evidence of significant valvular disease at this time. Plan: ?? Will check chromogranin A and 24-h urine 5-HIAA. Will also check PSA given his history, the bony lesions, and results of the outside CT. We will request interpretation of CT chest. ?? Will request interpretation of outside DOTATATE with direct comparison to choline scan. ?? Will obtain MRI of the liver to better characterize lesions and consider using this modality to track disease progression ?? Will not make any changes to his current therapy today, though in the future can consider PRRT(NETTER-3) or everolimus (RADIANT-4) if alternative therapy is needed. ?? Down the road, a repeat biopsy may be useful. ?? Tentative plan for return in 3 months with repeat abdominal MRI and labs. Can consider adding CT chest at that time. PATIENT EDUCATION Explained the content in detail using visual aids, teach back and verbal lessons; patient expressed understanding of the above. Patient was willing and able to learn, actively involved in the above discussion. ADMINISTRATIVE BILLING I personally spent a total of 60 minutes face to face with the patient with over half of that time in counseling and discussion and/or coordination of care as described above. MAN Ethan Aldridge M.D. - 10/11/2019 10:00 AM CST SUBJECTIVE PRIMARY CARE PHYSICIAN No primary care provider on file. REQUESTING PROVIDER Rashid Ventura P.A.-C. [address] [place] [address] LOCAL ONCOLOGIST No care seafood team member to display PRIMARY ANDES ONCOLOGIST Ethan Aldridge M.D. REASON FOR CONSULT Ricky Villeda is a 74 y.o. male who presents for evaluation of metastatic carcinoid tumor. History and exam is well outlined by Dr. Ross Day's note from today. Patient has had longstanding metastatic neuroendocrine carcinoma with progressive symptoms in the fall of 2019. He was placed on hormonaltherapy with benefit and transition to long-acting Sandostatin injections. His symptoms have improved. He now is seen for an opinion regarding further treatment options. His past medical, surgical, social and family history as well as exam is well outlined by Dr. Ross Day's note from today. EXAM There were no vitals filed for this visit. LABORATORY DATA Lab data reviewed. Recent blood test results were reviewed. RADIOLOGICAL DATA Radiology data reviewed. Recent scan findings are noted. 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 Villeda and his . I would agree with Dr. Ross Day's recommendations in his note from today. We talked about continuing with hormonal therapy. We will have the nuclear medicine physicians assess the PET scans to try to help differentiating current finding on the scans. An MRI of the liver would be helpful for monitoring in the future. We'll also get other blood and urine markers. We did talk about future treatment options as well. At this point he seems to be responding to his initial hormone therapy and Lutathera treatment at this time would not be indicated. We can assess for disease progression in the future and decide on next treatments based on future scans. Questions were answered PATIENT EDUCATION Ready to learn, no apparent learning barriers were identified; learning preferences include listening. Explained diagnosis and treatment plan; patient expressed understanding of the content. I have seen the patient and concur with the assessment, evaluation, and recommendations of Dr. Ross Day, as stated in this note. MAN documented in this encounter Miscellaneous Notes Addendum Note - Mikhail Yip M.D. - 10/11/2019 10:00 AM MESH MAN Addended by: MIKHAIL YIP on: 10/21/2019 04:49 PM Modules accepted: Orders MAN documented in this encounter Plan of Treatment Scheduled Referrals Name Type Priority Associated Diagnoses Order S [facility] Oncology office Outpatient Referral Routine Expec rosalba: visit (clinic) 01/09/2020 (Approximate), Expires: 10/11/2022 documented as of this encounter Results 5-Hydroxyindoleacetic Acid (5-HIAA), 24 [...] and its performa nce characteristics determined by [facility] in a manner consistent with CLIA requirements. This test has not been cleared or approved by the U.[place] d and Drug Administration. Specimen Anatomical Collection Method Collection Time Receive d Time (Source) Location / / Volume Laterality Urine (Urine, 24 02/29/2020 8:15 AM 02/28 Hours) CDT 12:13 PM CDT Mikhail Yip M.D. LAB URINE ORDERABLES Performing Organization Address City/State/ZIP Code Phon e Number [facility] - [address] [place] [address] [facility] [place] [address] Laboratories-[facility] [address] MR Abdomen without and with IV Contrast [...] the liver, bone and lymph nodes. Mikhail Yip M.D. [facility] MRI PROCEDURES Chromogranin A (02/27/2020 10:36 AM CDT) athologist Signature Chromogranin A, S 48 <93 ng/mL 02/28/2020 [facility] 10:08 AM CDT Comment: ----ADDITIONAL INFORMATION---- This test was developed and its performa nce characteristics determined by [facility] in a manner co nsistent with [...] 9:59 Venous) AM CDT AM CDT Mikhail Yip M.D. LAB BLOOD NON ADD-ON Performing Organization Address City/State/ZIP Code Phon e Number [facility] [address] [place], [place] [address] SUPPORT CENTER [facility] [place] [address] Laboratory Medicine and Pathology [address] [...] 02/27/2020 [facility] Black/ mL/min/BSA 1:19 PM CDT Citizen Of [place] Comment: ----ADDITIONAL INFORMATION---- Estimated GFR calculated using [...] Venous) AM CDT 12:51 PM CDT Mikhail Yip M.D. LAB BLOOD ADD-ON Performing Organization Address City/State/ZIP Code Phon e Number [facility] - [address] [place] [address] [facility] [place] [address] [facility] 200 [facility] (ABNORMAL) CBC with Differential, Blood (02/27/2020 10:36 AM CDT) [facility] gist Method Time Signature Hemoglobin 14.5 13.2 [...] Venous) AM CDT 10:55 AM CDT Mikhail Yip M.D. LAB BLOOD ADD-ON Performing Organization Address City/State/ZIP Code Phon e Number [facility] - [address] [place] [address] [facility] [place] [address] [facility] 200 [facility] Interpretation of Outside CT Chest (10/24/2019 8:09 AM MESH MAN) Anatomical Region Laterality Modality Chest, Thoracic RST LOS, Thoracic ARZ LOS, Thoracic N/A Computed Tomography FLA LOS, Other, Body Specimen (Source) Anatomical Collection Method Collection Time Re ceived Time Location / / Volume Laterality 10/24/2019 11:01 AM MESH MAN Impressions 10/24/2019 11:13 AM MESH MAN 1. ?There is a 1 mm solid [...] e recent PET/CT. Narrative 10/24/2019 11:13 AM MESH MAN EXAM: ??INTERPRETATION OF OUTSIDE CT CHEST COMPARISON: [...] visualized on th e recent PET/CT. Mikhail Yip M.D. [facility] CT PROCEDURES (ABNORMAL) 5-Hydroxyindoleacetic Acid (5-HIAA), 24 Hour, Urine (10/23/2019 8:00 PM MESH MAN) athologist Signature 5-Hydroxyindol 13.2 (H) <=10.1 10/26/2019 [facility] eacetic Acid, mg/24 h 10:52 AM MESH MAN U Comment: In this sample, the excretion of 5HIAA w as elevated. This finding could be a pharmacological or dietary artifact (sev eral fruits and vegetables contain large amounts of serotonin, the precurso r of 5HIAA), but could also be indicative of the presence of a serotoni n-producing tumor. Collection Duration 24 h 10/26/2019 10:52 AM MESH MAN DTL Urine Volume 2633 mL 10/26/2019 10:52 AM MESH MAN DTL Comment: ----ADDITIONAL INFORMATION---- Liquid Chromatography-Tandem Mass Spectr ometry (LC-MS/MS). Values obtained from different assay met hods or kits may be different and cannot be used interchangeably. The results cannot be interpreted as abs olute evidence for the presence or absence of malignant disease. This test was developed and its performa nce characteristics determined by [facility] in a manner consistent with CLIA requirements. This test has not been cleared or approved by the U.[place] d and Drug Administration. Specimen Anatomical Collection Method Collection Time Receive d Time (Source) Location / / Volume Laterality Urine (Urine, 24 10/23/2019 8:00 PM 10/24 3:28 Hours) MESH MAN PM MESH MAN Mikhail Yip M.D. LAB URINE ORDERABLES Performing Organization Address City/State/ZIP Code Phon e Number [facility] - [address] [place], [place] [address] [facility] [place] [address] [facility] [address] MR Abdomen without and with IV Contrast (10/12/2019 9:01 AM MESH MAN) Anatomical Region Laterality Modality Abdomen, Abdominal RST LOS, Abdominal ARZ LOS, N/A Magnetic Resonance Abdominal FLA LOS Specimen (Source) Anatomical Collection Method Collection Time Re ceived Time Location / / Volume Laterality 10/12/2019 10:29 AM MESH MAN Impressions 10/12/2019 11:55 AM MESH MAN Extensive metastatic disease throughout the abdomen including hepatic, pancreatic, lymph nodes, osseous, and pr obable soft tissue metastases. Narrative 10/12/2019 11:55 AM MESH MAN EXAM: ??MR ABDOMEN WITHOUT AND WITH IV [...] and pr obable soft tissue metastases. Mikhail Yip M.D. [facility] MRI PROCEDURES PSA (Prostate-Specific Antigen), Diagnostic (10/11/2019 12:21 PM MESH MAN) P athologist Signature Prostate-Specif <0.10 <=6.5 ng/mL 10/11/2019 DTL ic Ag 2:42 PM MESH MAN Comment: ----ADDITIONAL INFORMATION---- The testing method is an electrochemilum inescence assay manufactured by [employer] and performed on the [employer] or Wild system . Values obtained with different assay met hods or kits may be different and cannot be used inte rchangeably. Test results cannot be interpreted as ab solute evidence for the presence or absence of malignant disease. Specimen Anatomical Collection Method Collection Time Receive d Time (Source) Location / / Volume Laterality Blood (Blood, 10/11/2019 12:21 10/11/2019 Venous) PM MESH MAN 12:36 PM MESH MAN Mikhail Yip M.D. LAB BLOOD ADD-ON Performing Organization Address City/[facility] Phon e Number [facility] - [address] [place], [place] [address] [place] [address] [facility] [address] Chromogranin A (10/11/2019 12:21 PM MESH MAN) athologist Signature Chromogranin A, S 53 <93 ng/mL 10/12/2019 [facility] 9:34 AM MESH MAN Comment: ----ADDITIONAL INFORMATION---- This test was developed and its performa nce characteristics determined by [facility] in a manner co nsistent with [...] Location / / Volume Laterality Blood (Blood, 10/11/2019 12:21 10/12/2019 8:02 Venous) PM MESH MAN AM MESH MAN Mikhail Yip M.D. LAB BLOOD NON ADD-ON Performing Organization Address City/State/[facility] Code Phon e Number [facility] [address] [place], [place] [address] [facility] [place] [address] Laboratory Medicine and Pathology [address] 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
--- OUTSIDE RECORDS SUMMARY | 2022-06-06 12:14 | XMS_ITS | Encounter Summary ---
:1945 Author Organization [facility] Address [address] [place] [id number] Care Team Providers Name Role Phone Unavailable Primary Care Provider Unavailable Encounter Details Date Type Department Care Team Description 09/30/2019 Hospital Encounter Department of Yadira Mar Trans ient Ischemic Radiology, [facility], in [address] [place] [address] [place] [id number] [place], [place] [phone] (Work) [phone] Social History Tobacco Use Types Packs/Day Years [...] More than 4 times per year 09/30/2019 druze services? Do you belong to any clubs [...] have completed or the highest Darrin, MEd, DIVISION CHIEF, BER[employer]A) degree you have received? Sex Assigned [...] Name Priority Date/Time Associated Comments Diagnosis US CAROTID RAD - Routine 09/30/2019 2:58 Transient Results for this BILATERAL (most inpatients PM SUPERVISOR FURNACE PROCESS Ischemic Attack procedur e are in and all the results outpatients) section. documented in this encounter Results US Carotid Bilateral (09/30/2019 2:58 PM SUPERVISOR FURNACE PROCESS) Anatomical Region Laterality Modality Head and Neck, Ultrasound RST LOS, Ultrasound ARZ LOS, Bilat eral Ultrasound Neuroradiology FLA LOS Specimen (Source) Anatomical Collection Method Collection Time Re ceived Time Location / / Volume Laterality 09/30/2019 3:06 PM [employer]VIS[employer] PROCESS Impressions 10/04/2019 1:20 PM SUPERVISOR FURNACE PROCESS 1) No hemodynamically significant carotid artery stenosis on either side. 2) Moderate mixed but predominantly non calcified atheromatous plaque in right carotid bifurcation. Narrative 10/04/2019 1:20 PM SUPERVISOR FURNA[employer] PROCESS EXAM: US CAROTID BILATERAL Exam performed with color and spectral D oppler analysis. COMPARISON: ??None FINDINGS: RIGHT: ??Moderate mixed but predominantl y non calcified atheromatous plaque in the carotid bifurcation. Doppler evaluat ion shows no evidence of significant ICA, ECA, or CCA stenosis. Normal flow d irection in the vertebral artery. LEFT: ??Mild mixed calcified and non jasen cified atheromatous plaque in the carotid bifurcation. Doppler evaluation shows no evidence of significant ICA, ECA, or CCA stenosis. Normal flow direction in t he vertebral artery. VELOCITIES (cm/sec) Right CCA *psv: ??71 cm/s Right ICA psv: 62 cm/s Right ICA edv: 24 cm/s Right ECA psv: 58 cm/s Right ICA/CCA: 0.9 Left CCA *psv: 76 cm/s Left ICA psv: 69 cm/s Left ICA edv: ??29 cm/s Left ECA psv: ??52 cm/s Left ICA/CCA: 0.9 ?? *mid/distal (non-diseased) Measurement of a carotid stenosis, if pr esent, is based on velocity parameters that compare the residual internal carot id luminal diameter with that of the normal distal ICA in accordance with [facility] [place] Symptomatic Carotid Endarterectomy Trial (NASCET). Procedure Note Patience Parker M.D. - 10/04/2019Formatt ing of this note might be different from the original. EXAM: US CAROTID BILATERAL Exam performed with color and spectral D oppler analysis. COMPARISON: None FINDINGS: RIGHT: Moderate mixed but predominantly non calcified atheromatous plaque in the carotid bifurcation. Doppler evaluat ion shows no evidence of significant ICA, ECA, or CCA stenosis. Normal flow d irection in the vertebral artery. LEFT: Mild mixed calcified and non calci fied atheromatous plaque in the carotid bifurcation. Doppler evaluation shows no evidence of significant ICA, ECA, or CCA stenosis. Normal flow direction in t he vertebral artery. VELOCITIES (cm/sec) Right CCA *psv: 71 cm/s Right ICA psv: 62 cm/s Right ICA edv: 24 cm/s Right ECA psv: 58 cm/s Right ICA/CCA: 0.9 Left CCA *psv: 76 cm/s Left ICA psv: 69 cm/s Left ICA edv: 29 cm/s Left ECA psv: 52 cm/s Left ICA/CCA: 0.9 *mid/distal (non-diseased) Measurement of a carotid stenosis, if pr esent, is based on velocity parameters that compare the residual internal carot id luminal diameter with that of the normal distal ICA in accordance with [facility] [place] Symptomatic Carotid Endarterectomy Trial (NASCET). IMPRESSION: 1) No hemodynamically significant caroti d artery stenosis on either side. 2) Moderate mixed but predominantly non calcified atheromatous plaque in right carotid bifurcation. Yadira MONTOYA US PROCEDURES documented in this encounter Visit Diagnoses Diagnosis Transient Ischemic Attack documented in this encounter
--- OUTSIDE RECORDS SUMMARY | 2022-06-06 12:14 | XMS_ITS | Encounter Summary ---
:1945 Author Organization [facility] Address [address] [place] [address] Care Team Providers Name Role Phone Unavailable Primary Care Provider Unavailable Encounter Details Date Type Department Care Team Description 12/02/2013 Hospital Encounter HX NO MAPPING Social History [...]
--- OUTSIDE RECORDS SUMMARY | 2022-06-06 12:14 | XMS_ITS | Encounter Summary ---
:1945 Author Organization [facility] Address [address] [place] [address] Care Team Providers Name Role Phone Unavailable Primary Care Provider Unavailable Encounter Details Date Type Department Care Team Description 10/27/2008 Hospital Encounter HX NO MAPPING Social History [...] or relatives? How often do you attend restorationist or More than 4 times per year 09/30/2019 uatsdin services? Do you belong to any clubs or Yes 09/30/2019 organizations such as restorationist groups, unions, fraternal or athletic groups, or [...]
--- OUTSIDE RECORDS SUMMARY | 2022-06-06 12:14 | XMS_ITS | Encounter Summary ---
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 immediately pr ior to start. LEFT VENTRICLE: Normal left ventricular chamber size. Estimated left ventricular ejection fraction 55 %. No regional wall motion abnormalities. Abnormal ventricular sept al motion (non-specific). RIGHT VENTRICLE: Mild-moderately enlarged right ventricul ar chamber size. Normal right ventricular systolic function. ATRIA: Borderline enlarged lef t atrial size. Normal left atrial appendage. No left atrial appendage thrombus. Left atr ial appendage emptying velocity 58 cm/sec. Enlarged right atrial size. Normal right atrial a ppendage. CARDIAC VALVES: Trileaflet aortic valve. Thickened aortic valve. Aortic valve str ands. No aortic valve regurgitation. Mildly thickened mitral valve. Mild mitral valv e regurgitation. Normal pulmonary valve. Trivial pulmonary valve regurgitation. Normal tr icuspid valve. Mild tricuspid valve regurgitation. OTHER ECHO FINDINGS: Normal ascending ao rta diameter (39 mm; upper limits of normal for age 42.8 mm). Normal aortic arch dimension. 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 Normally connected pulmo nary veins. Normal pulmonary artery bifurcation. Normal superior vena cava. Atrial septal aneurysm. No yyti-fl-evhox shunt at atrial level. Agitated saline injection(s) performed p rior to administration of sedation and during sedation. No vkvyr-pq-mlpw shunt at atrial level at rest or with Valsalva release. No intracardiac mass or thrombus. No pericardial effusion. DC OCEDURE Transesophageal echocardiogram performed at the request of the primary service consu [facility]. Adult probe inserted without difficulty. Procedure performed with appropriate lev el of sedation. A trained independent observer assisted with monitoring the patient's l evel of consciousness and physiologic status throughout the procedure, see nursing documentation . Physician signature for procedural medications and patient discharge when DC criteria met. The patient tolerated the sedation and procedure well and was released awake, alert, and in go od condition. Transesophageal echocardiogram completed without complications. See Sedation Narr ator or other pertinent record in [facility] for additional procedure and sedation information. For the complete report, see the Order-L evel Documents below. Yadira Mar P.A.-C. CV ECHO PROCEDURES US Carotid Bilateral (09/30/2019 2:58 PM ELECTRICAL CONTINUITY INSPECTOR) Anatomical Region Laterality Modality Head and Neck, Ultrasound RST LOS, Ultrasound ARZ LOS, Bilat eral Ultrasound Neuroradiology FLA LOS Specimen (Source) Anatomical Collection Method Collection Time Re ceived Time Location / / Volume Laterality 09/30/2019 3:06 PM ELECTRICAL CONTINUITY INSPECTOR Impressions 10/04/2019 1:20 PM ELECTRICAL CONTINUITY INSPECTOR 1) No hemodynamically significant carotid artery stenosis on either side. 2) Moderate mixed but predominantly non calcified atheromatous plaque in right carotid bifurcation. Narrative 10/04/2019 1:20 PM ELECTRICAL CONTINUITY INSPECTOR EXAM: US CAROTID BILATERAL Exam performed with [...] the normal distal ICA in accordance with Armenian Symptomatic Carotid Endarterectomy Trial (NASCET). Procedure Note [...] the normal distal ICA in accordance with [facility] Armenian Symptomatic Carotid Endarterectomy Trial (NASCET). IMPRESSION: 1) No hemodynamically significant caroti d artery stenosis on either side. 2) Moderate mixed but predominantly non calcified atheromatous plaque in right carotid bifurcation. Yadira Mar P.A.-C. IMG US PROCEDURES Phospholipid (Cardiolipin) Antibodies, IgG and IgM (09/29/2019 10:41 AM ELECTRICAL CONTINUITY INSPECTOR) athologist Signature Phospholipid Ab <9.4 <15.0 09/30/2019 [facility] IgM, S (Negative) 5:26 PM ELECTRICAL CONTINUITY INSPECTOR MPL Phospholipid Ab <9.4 <15.0 09/30/2019 [facility] IgG, S (Negative) 5:09 PM ELECTRICAL CONTINUITY INSPECTOR GPL Specimen Anatomical Collection Method Collection Time Receive d Time (Source) Location / / Volume Laterality Blood (Blood, 09/29/2019 10:41 09/30/2019 Venous) AM ELECTRICAL CONTINUITY INSPECTOR 11:25 AM ELECTRICAL CONTINUITY INSPECTOR Yadira Mar P.A.-C. LAB BLOOD ADD-ON Performing Organization Address City/State/ZIP Code Phon e Number [facility] [address] [place] [address] [facility] [place] [address] Laboratory Medicine and Pathology [address] [place] (ABNORMAL) Beta-2 Glycoprotein 1 Antibodies, IgG and IgM (09/29/2019 10:41 AM ELECTRICAL CONTINUITY INSPECTOR) athologist Signature Beta 2 GP1 Ab 17.2 (H) <15.0 09/30/2019 [facility] IgG, S (Negative) 3:50 PM ELECTRICAL CONTINUITY INSPECTOR U/mL Comment: Interpretation: Weak Positive ( 15.0-39.9) Beta 2 GP1 Ab IgM, S <9.4 <15.0 (Negative) U/mL 020 3:50 PM ELECTRICAL CONTINUITY INSPECTOR [facility] Specimen Anatomical Collection Method Collection Time Receive d Time (Source) Location / / Volume Laterality Blood (Blood, 09/29/2019 10:41 09/30/2019 Venous) AM ELECTRICAL CONTINUITY INSPECTOR 11:25 AM ELECTRICAL CONTINUITY INSPECTOR Yadira Mar P.A.-C. LAB BLOOD ADD-ON Performing Organization Address City/State/ZIP Code Phon e Number [facility] [address] [place] [address] [facility] [place] [address] Laboratory Medicine and Pathology [address] [place] documented in this encounter Visit Diagnoses Diagnosis Transient Ischemic Attack - Primary Stroke Cerebrovascular Accident Personal History Thrombosis Deep Vein Personal History Atrial Fibrillation Paroxysmal (HCC) Anticoagulant Therapy Malignant Gastric Carcinoid (HCC) Nodule Thyroid Transient Ischemic Attack Transient Ischemic Attack Stroke Cerebrovascular Accident Personal History Atrial Fibrillation Paroxysmal (HCC) documented in this encounter
--- OUTSIDE RECORDS SUMMARY | 2022-06-06 12:14 | XMS_ITS | Encounter Summary ---
:[address] [facility] Address [address] [place] [address] Care Team Providers Name Role Phone Unavailable Primary Care Provider Unavailable Encounter Details Date Type Department Care Team Description 11/29/2013 Hospital Encounter HX NO MAPPING Provider, Historical Social History Tobacco Use Types Packs/Day Years [...] or relatives? How often do you attend buddhism or More than 4 times per year 09/30/2019 buddhism services? Do you belong to any clubs or Yes 09/30/2019 organizations such as buddhism groups, unions, fraternal or athletic groups, or [...]
--- OUTSIDE RECORDS SUMMARY | 2022-06-06 12:14 | XMS_ITS | Encounter Summary ---
:1945 Author Organization [facility] Address [address] [place] [address] Care Team Providers Name Role Phone Unavailable Primary Care Provider Unavailable Reason for Referral Outpatient (Routine) - Closed Specialty Diagnoses / Procedures Referred By Contact Refer red To Contact Diagnoses Transient Ischemic Attack Stroke Cerebrovascular Accident Personal History Atrial Fibrillation Paroxysmal (HCC) Yadira Mar P.A.-C. [facility] Procedures Echo Transesophageal (KENDY) [address] [place] [address] Referral ID Status Reason Start Date Expiration Date Visits Requ ested Visits Authorized [id number] Closed 09/30/2019 09/29/2020 1 1 INE HEEL BUILDER Reason for Visit Outpatient (Routine) - Closed Specialty Diagnoses / Procedures Referred By Contact Refer red To Contact Diagnoses Transient Ischemic Attack Stroke Cerebrovascular Accident Personal History Atrial Fibrillation Paroxysmal (HCC) Yadira Mar P.A.-C. [facility] Procedures Echo Transesophageal (KENDY) [address] [place], [place] [address] Referral ID Status Reason Start Date Expiration Date Visits Requ ested Visits Authorized [id number] Closed 09/30/2019 09/29/2020 1 1 Encounter Details Date Type Department Care Team Description 10/04/2019 Hospital Department of Yadira Mar Transient Isch emic Attack; Encounter Cardiovascular [facility] Stroke Cerebrovascular Accident Personal History; Diseases in [place], [address] [facility] Atrial Fibrillation Paroxysmal (HCC) [place], [place] [address] [email or web address] [address] [place], [place] [phone] (Work) [phone] Social History Tobacco Use Types Packs/Day Years [...] More than 4 times per year 09/30/2019 scientologist services? Do you belong to any clubs [...] completed or the highest Darrin, MEd, STEEL POST INSTALLER SUPERVISOR, BERTHA) degree you have received? Sex Assigned at Date Recorded Not on file documented as of this encounter Last Filed Vital Signs Vital Sign Reading Time Taken Comments Blood Pressure 128/72 10/04/2019 2:56 PM MACHINE HEEL BUILDER Pulse 63 10/04/2019 2:54 PM MACHINE HEEL BUILDER Temperature - - Respiratory Rate 11 10/04/2019 2:54 PM MACHINE HEEL BUILDER Oxygen Saturation 98% 10/04/2019 2:54 PM MACHINE HEEL BUILDER Inhaled Oxygen Concentration - - Weight - - Height - - Body Mass Index - - documented in this encounter Medications at Time [...] Name Priority Date/Time Associated Diagnosis Comme nts (KENDY) 2D WITH Routine 10/04/2019 2:49 PM Transient Ischemic Re sults for this COLOR, LIMITED MACHINE HEEL BUILDER Attack procedure are in DOPPLER AND Stroke Cerebrovascular the r esults CONTRAST Accident Personal section. History Atrial Fibrillation Paroxysmal (HCC) documented in this encounter Results (KENDY) 2D WITH COLOR, LIMITED DOPPLER AND CONTRAST (10/04/2019 2:49 PM MACHINE HEEL BUILDER) P athologist Signature Ejection 55 CV EIMS Fraction Mid-Ascending 39 CV EIMS Aorta Anatomical Region Laterality Modality Echocardiography Specimen (Source) Anatomical Collection Method Collection Time Re ceived Time Location / / Volume Laterality 10/04/2019 1:34 PM MACHINE HEEL BUILDER Impressions 10/04/2019 4:25 PM MACHINE HEEL BUILDER PRE-SEDATION ASSESSMENT & CONSENT ??The goals, risks [...] vena cava. ??Atrial sept al aneurysm. ??No jujv-st-zrtat shunt at atrial level. Agitated saline injection(s) performed p rior to administration of sedation and during sedation. No etwyk-uv-turx shunt at atrial level at rest or with Valsalva release. ??No intracardiac mass or thrombus. ??No pericardial effusion. ??PROCEDURE ??Transesophageal echocardiogram performed at the request of the primary service consu ltant. ??Adult probe inserted without difficulty. Procedure performed [...] Na rrator or other pertinent record in [facility] for additional procedure and sedation information. For the complete report, see the Order-L evel Documents below. Narrative 10/04/2019 4:25 PM MACHINE HEEL BUILDER For the complete report, see the Order-L [...] superior vena cava. Atrial septal aneurysm. No rpof-st-bgtuq shunt at atrial level. Agitated saline injection(s) performed p rior to administration of sedation and during sedation. No nnloc-jw-einw shunt at atrial level at rest or with Valsalva release. No intracardiac mass or thrombus. No pericardial effusion. MS OCEDURE Transesophageal echocardiogram performed at the [facility] the [facility]. Adult probe inserted without difficulty. Procedure performed [...] Narr ator or other pertinent record in Epic for additional procedure and sedation information. For the complete report, see the Order-L evel Documents below. Yadira Mar P.A.-C. CV ECHO PROCEDURES documented in this encounter Visit Diagnoses Diagnosis Transient Ischemic Attack Stroke Cerebrovascular Accident Personal History Atrial Fibrillation Paroxysmal (HCC) documented in this encounter Administered Medications Inactive Administered Medications - up to 3 most recent administrations Medication Order MAR Action Action Date Dose Rate Site fentaNYL injection (SUBLIMAZE) Given 10/04/2019 2:19 PM MACHINE HEEL BUILDER 25 mcg Code/trauma/sedation medication, Starting on Thu10/04/19 at 1416 Given 10/04/2019 2:16 PM MACHINE HEEL BUILDER 50 mcg lidocaine 5 % ointment 1 application Given 10/04/2019 1:56 P M MACHINE HEEL BUILDER 1 application (XYLOCAINE) 1 application, mouth/throat, As needed, mild pain or score 1-3 of 10, See protocol, Starting on Thu10/04/19 at 1355, MAX of 20 g of ointment/day midazolam (PF) injection (VERSED) Given 10/04/2019 2:19 PM MACHINE HEEL BUILDER 1 mg Code/trauma/sedation medication, Starting on Thu10/04/19 at 1416 Given 10/04/2019 2:16 PM MACHINE HEEL BUILDER 2 mg NaCl 0.9% bacteriostatic 0.9 % injection 20 mL Given 10/04/2019 2:44 PM MACHINE HEEL BUILDER 40 mL 20 mL, intravenous, As needed, for agitated saline (bubble) studies, Starting on Thu10/04/19 at 1355, See protocol Given 10/04/2019 2:14 PM MACHINE HEEL BUILDER 20 mL documented in this encounter
--- OUTSIDE RECORDS SUMMARY | 2022-06-06 12:14 | XMS_ITS | Encounter Summary ---
:1945 Author Organization [facility] Address [address] [place] [address] Care Team Providers Name Role Phone Unavailable Primary Care Provider Unavailable Reason for Referral Outpatient (Routine) - Closed Specialty Diagnoses / Referred By Contact Referred To Contact Procedures Gastroenterology and Diagnoses Carcinoid Syndrome (HCC) Rosalinda Yancey [facility] Hepatology Shahid Hester [address] [place] [address] Referral ID Status Reason Start Date Expiration Date Visits Requ ested Visits Authorized [id number] Closed 09/22/2019 09/21/2020 1 1 R Encounter Details Date Type Department Care Team Description 09/22/2019 [facility] Rosalinda Yancey Carcinoid Syndrome AND CLINICS Shahid Hester (HCC) (Primary Dx) [address] [facility] [address] [place] [address] [phone] Social History Tobacco Use Types Packs/Day Years [...] or relatives? How often do you attend anglican or More than 4 times per year 09/30/2019 pentecostal services? Do you belong to any clubs or Yes 09/30/2019 organizations such as anglican groups, unions, fraternal or athletic groups, or [...] as of this encounter Plan of Treatment Scheduled Referrals Name Type Priority Associated Diagnoses Order S chedule Oncology Referral Outpatient Referral Routine Carcinoid Syndro me Expected: (HCC) 09/22/2019 (Approximate), Expires: 09/22/2022 documented as of this encounter Visit Diagnoses Diagnosis Carcinoid Syndrome (HCC) - Primary documented in this encounter Additional Health Concerns Infection Onset Date Last Indicated Resolved Time COVID19 Pending 07/24/2020 07/24/2020 07/25/2020 11:07 PM TILER documented as of this encounter
--- OUTSIDE RECORDS SUMMARY | 2022-06-06 12:14 | XMS_ITS | Encounter Summary ---
:1945 Author Organization [facility] Address [address] [place] [address] Care Team Providers Name Role Phone Unavailable Primary Care Provider Unavailable Reason for Visit Reason Onset Date Comments Internal Referral 10/05/2019 Encounter Details Date Type Department Care Team Description 10/05/2019 Clinical Department of Provider, Internal Refer ral Communication Cardiovascular Unknown Medicine in [place], [place] [address] [place] [address] Social History Tobacco Use Types Packs/Day Years [...] have completed or the highest Darrin, MEd, LEAN SIX SIGMA BLACK BELT, BERTHA) degree you have received? Sex Assigned at Date Recorded Not on file documented as of this encounter Miscellaneous Notes Telephone Encounter - Jahaira Iniguez - 10/26/2019 4:01 PM CST LVM for patient. If patient calls back, please schedule in Valve Clinic in January 2020 with valve testing (per VIVEK Peterson). A PRESS OPERATOR Telephone Encounter - Yadira Mar P.A.-C. - 10/26/2019 11:38 AM COCOA PRESS OPERATOR I cannot tell if the referral is for TAVR request or for another reason. If it is for TAVR consult, then I have nothing to do with that. I only address anticoagulation. He does not need to be seen in the valve clinic for anticoagulation at this time. Does he have a KENDY scheduled after 3 months, as this would need to be done to see if he responded to warfarin. Zarina Mar P.A.-C. A PRESS OPERATOR Telephone Encounter - Yadira Mar P.A.-C. - 10/05/2019 5:08 PM CST I contacted the patient through the patient portal and instructed him that he needs to switch to warfarin. He was told that the oxygen therapy technician Dr. Levine recommended this. Since he does not live locally, he will need to switch to warfarin under the supervision of his primary care physician. The patientand his physician are welcome to contact me if they have further questions. A PRESS OPERATOR Telephone Encounter - Sena Akers R.N. - 10/05/2019 11:39 AM COCOA PRESS OPERATOR I reviewed Mr. Villeda's record with Dr. Levine. He recommends switching anticoagulation to Warfarin. I will call Yadira Mar PA-C to relay his recommendations. A PRESS OPERATOR documented in this encounter Plan of Treatment Not on filedocumented as of this encounter Visit Diagnoses Not on filedocumented in this encounter
--- OUTSIDE RECORDS SUMMARY | 2022-06-06 12:14 | XMS_ITS | Encounter Summary ---
:1945 Author Organization [facility] Address [address] [place] [address] Care Team Providers Name Role Phone Unavailable Primary Care Provider Unavailable Reason for Referral Outpatient (Routine) - Closed Specialty Diagnoses / Referred By Contact Referred To Contact Procedures Cardiovascular Diseases / Diagnoses Transient Ischemic Attack Yadira Mar [facility] Cardiovascular Disease P.A.-C. [address] [place] [address] Referral ID Status Reason Start Date Expiration Date Visits Requ ested Visits Authorized [id number] Closed 10/05/2019 10/04/2020 1 1 Scheduling Instructions Please call patient to schedule. Must be within two months of KENDY, done yesterday. H HANDLE ASSEMBLER Encounter Details Date Type Department Care Team Description 10/05/2019 Orders Only Department of Vascular Yadira Mar [facility] Ischemic Medicine in [place], P.A.-C. Attack (Primary Dx) [address] [place] [phone] [phone] Social History Tobacco Use Types Packs/Day Years [...] or relatives? How often do you attend sabianism or More than 4 times per year 09/30/2019 druze services? Do you belong to any clubs or Yes 09/30/2019 organizations such as sabianism groups, unions, fraternal or athletic groups, or [...] have completed or the highest Darrin, MEd, CONTINUOUS PROCESS COFFEE ROASTER, BERTHA) degree you have received? Sex Assigned at Date Recorded Not on file documented as of this encounter Plan of Treatment Scheduled Referrals Name Type Priority Associated Order Schedule Diagnoses Cardiovascular Disease Outpatient Referral Routine Transient I schemic Expected: - Valvular heart Attack 10/05/2019 disease (VHD) consult (Appro ximate), (clinic) Expires: 10/05/2022 documented as of this encounter Visit Diagnoses Diagnosis Transient Ischemic Attack - Primary documented in this encounter
--- OUTSIDE RECORDS SUMMARY | 2022-06-06 12:14 | XMS_ITS | Encounter Summary ---
:1945 Author Organization [facility] Address [address] [place] [address] Care Team Providers Name Role Phone Unavailable Primary Care Provider Unavailable Encounter Details Date Type Department Care Team Description 10/03/2019 Ancillary Procedure Department of Rashid Ventura Carcin oid Syndrome Radiology in [place], P.A.-C. ([facility]) [place], [place] [address] [place] [address] Social History Tobacco Use Types Packs/Day Years [...] or relatives? How often do you attend episcopalian or More than 4 times per year 09/30/2019 druze services? Do you belong to any clubs or Yes 09/30/2019 organizations such as episcopalian groups, unions, fraternal or athletic groups, or [...] have completed or the highest Darrin, MEd, THIRD RAIL INSTALLER, BERTHA) degree you have received? Sex Assigned at Date Recorded Not on file documented as of this encounter Plan of Treatment Not on filedocumented as of this encounter Procedures Procedure Name Priority Date/Time Associated Comments Diagnosis INTERPRETATION OF RAD - Routine 10/04/2019 7:45 Carcinoid Result s for OUTSIDE CT ABDOMEN (most inpatients AM SIMULATION DEVELOPER Syndrome (HCC) thi s procedure AND OR PELVIS and all are in the outpatients) results section. documented in this encounter Results Interpretation of Outside CT Abdomen and or Pelvis (10/04/2019 7:45 AM SIMULATION DEVELOPER) Anatomical Region Laterality Modality Abdomen, Pelvis, Abdominal RST LOS, Abdominal ARZ LOS, N/A Computed Tomography Abdominal FLA LOS, Other Specimen (Source) Anatomical Collection Method Collection Time Re ceived Time Location / / Volume Laterality 10/05/2019 8:03 AM SIMULATION DEVELOPER Impressions 10/05/2019 8:23 AM SIMULATION DEVELOPER 1. 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 2. Several new sclerotic osseous metasta ses. Narrative 10/05/2019 8:23 AM SIMULATION DEVELOPER EXAM: ??INTERPRETATION OF OUTSIDE CT ABDOMEN AND [...] encounter Visit Diagnoses Diagnosis Carcinoid Syndrome (HCC) documented in this encounter
--- OUTSIDE RECORDS SUMMARY | 2022-06-06 12:15 | XMS_ITS | Encounter Summary ---
:1945 Author Organization [facility] Address [address] [place] [address]. [place] [address] Care Team Providers Name Role Phone Unavailable Primary Care Provider Unavailable Encounter Details Date Type Department Care Team Description 09/05/2019 [facility] Dur[facility] Info Mgmt Non-Provider Srv[facility] [address] [place] [address] Social History Tobacco Use Types Packs/Day Years Used Date Never Assessed Sex Assigned at Date Recorded Not on file documented as of this encounter Plan of Treatment Not on filedocumented as of this encounter Visit Diagnoses Not on filedocumented in this encounter
--- OUTSIDE RECORDS SUMMARY | 2022-06-06 12:15 | XMS_ITS | Clinical Summary ---
:1945 Author Organization [facility] Address [address] [place] [address] Care Team Providers Name Role Phone Home - [facility] Primary Care Provider Social History Tobacco Use Types Packs/Day Years Used Date Never Assessed Sex Assigned at Date Recorded Not on file Plan of Treatment Health Maintenance Due Date Last Done Comments ADVANCE CARE PLANNING 1945 ANNUAL REVIEW OF HM ORDERS 1945 HEPATITIS C SCREENING 1962 DTAP/TDAP/TD IMMUNIZATION 1969 (1 - Tdap) LIPID 1979 ZOSTER IMMUNIZATION (1 of 1994 2) FALL RISK ASSESSMENT 2009 MEDICARE ANNUAL WELLNESS 2009 VISIT Pneumococcal Vaccine: 65+ 02/09/2015 02/09/2014 Years (2 - PPSV23 or PCV20) COVID-19 Vaccine (3 - 04/29/2021 11/27/2020, 11/06/2020 Booster for Pfizer series) PHQ-2 (once per calendar 09/14/2021 year) INFLUENZA VACCINE (#1) 2022 06/20/2019, 07/02/2018, 06/16/2017, Additional history exists HEPATITIS B IMMUNIZATION Aged Out No long er eligible based on patient 's age to complete this topic IPV IMMUNIZATION Aged Out No longer eligi ble based on patient 's age to complete this topic MENINGITIS IMMUNIZATION Aged Out No longe r eligible based on patient 's age to complete this topic Insurance Payer Benefit Plan Subscriber ID Effective Phone Address Typ e / Group Dates [facility] [id number] 2021-Pre [phone] [address] [facility] sent [phone] DAMEON ZENG [id number] MEDICARE MEDICARE [id number] 2009-Pres [phone] ATTN CLAIM S Medicare ent [address] [place] [address] / FOR [id number] 2019-Pre [phone] FOR Indemnity LIFE sent [address] [place] [address] Ricky Villeda Other Self 1945 [address] (Home) [place] [address] Care Teams Job Tracer Relationship Specialty Start Date End Date Home - [facility] PCP - General 01/22/21 [address] [place] [address]
--- OUTSIDE RECORDS SUMMARY | 2022-06-06 12:15 | XMS_ITS | Encounter Summary ---
:1945 Author Organization [facility] Address [address] [place] [id number] Care Team Providers Name Role Phone Unavailable Primary Care Provider Unavailable Reason for Referral Diagnostic Imaging PET (Routine) - Closed Specialty Diagnoses / Procedures Referred By Contact Refer red To Contact Radiology. Diagnoses History of prostate cancer Luangel luis, Gisell Uu Pet Ct Procedures PET GA 68 Dotatate PET (Eyes to Thighs) [facility] [place] [address] [place], [place] [phone] Referral ID Status Reason Start Date Expiration Date Visits Requ ested Visits Authorized [id number] Closed 09/13/2019 09/12/2020 1 1 NESS SUPPORT ASSISTANT Reason for Visit Diagnostic Imaging PET (Routine) - Closed Specialty Diagnoses / Procedures Referred By Contact Refer red To Contact Radiology. Diagnoses History of prostate cancer Luikart, Gisell Uu Pet Ct Procedures PET GA 68 Dotatate PET (Eyes to Thighs) [facility] [place] [address] [place], [place] [phone] Referral ID Status Reason Start Date Expiration Date Visits Requ ested Visits Authorized [id number] Closed 09/13/2019 09/12/2020 1 1 Encounter Details Date Type Department Care Team Description [facility] cancer [address] [place] [id number] [phone] Social History Tobacco Use Types Packs/Day Years Used Date Never Assessed Sex Assigned at Date Recorded Not on file documented as of this encounter Plan of Treatment Not on filedocumented as of this encounter Procedures Procedure Name Priority Date/Time Associated Diagnosis Comme nts PET DOTATATE Routine 10/07/2019 4:12 PM History of prostate Re sults for this BUSINESS SUPPORT ASSISTANT cancer procedure are i n the results section . documented in this encounter Results PET GA 68 Dotatate (10/07/2019 4:12 PM BUSINESS SUPPORT ASSISTANT) Anatomical Region Laterality Modality Whole Body Positron Emission To mography (PET) Specimen (Source) Anatomical Location Collection Method / Collectio n Time Received Time / Laterality Volume Impressions 10/07/2019 9:36 PM BUSINESS SUPPORT ASSISTANT IMPRESSION: 1. 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 2. Small hypermetabolic tumor in mid bod y of pancreas, cannot exclude this as being the primary site. WARD BRAUN MD Narrative 10/07/2019 9:36 PM BUSINESS SUPPORT ASSISTANT Combined Report of: PET GA-[address] on ??10/07/2019 4:12 PM : 1. PET of the neck, chest, abdomen, and pelvis. 2. PET CT Fusion for Attenuation Correct ion and Anatomical Localization: ?? 3. Diagnostic CT scan of the chest, abdo men, and pelvis with intravenous contrast for interpretation. 3. CT of the chest, abdomen and pelvis o btained for diagnostic interpretation. 4. 3D MIP and PET-CT fused images were p rocessed on an independent workstation and archived to PACS and rev iewed by a radiologist. Technique: 1. PET: The patient received 5.08 mCi of GA-68 Dotatate; body weight was 90 kg. Images were evaluated in the axial, sagittal, and coronal planes as well as the rotational whole b rodolfo MIP. Images were acquired from the Vertex to the Feet. UPTAKE WAS MEASURED AT 60 MINUTES. BACKGROUND: ??Liver SUV max= 9.84, ??Sca ttered metastatic foci throughout the liver, the highest SUV ma x is 17.71. 2. CT: Volumetric acquisition for clinic al interpretation of the chest, abdomen, and pelvis acquired at 3 mm sections . The chest, abdomen, and pelvis were evaluated at 5 mm sections in bone, soft tissue, and lung windows. ?? The patient received 120 cc. Of Isovue 3 70 intravenously for the examination. ?? -- 3. 3D MIP and PET-CT fused images were p rocessed on an independent workstation and archived to PACS and rev iewed by a radiologist. INDICATION: Gallium DOTATATE SCAN - Pet CT Scan: Head neck, Chest, abd pelv, eyes to thighs; History of prostat e cancer ADDITIONAL INFORMATION OBTAINED FROM EMR : none COMPARISON: None. FINDINGS: HEAD/NECK: Innumerable metastases foci throughout t he bones of the calvarium and base of skull. No soft tissue metastasis are identified. The paranasal sinuses are clear. The mas toid air cells are clear. The mucosal pharyngeal space, the mastic ator, prevertebral and carotid spaces are within normal limits. No masses, mass effect or pathologically enlarged lymph nodes are evident. The thyroid gland demonstrates a right-sided nodule, presumably a benign colloid nodule. CHEST: There or diffuse metastatic foci through out the bones of the thorax. There is a hypermetabolic lymph node in the subcarinal region and right anterior paratracheal region, There are no suspicious lung nodules or evidence for infection. There is no significant pericardial or p lural effusions. ABDOMEN AND PELVIS: There are a number of small hypermetabol ic metastatic foci throughout the liver, MRI could more accurately rolf racterization and number of the lesions if necessary. There is no splenomegaly or evidence for splenic mass lesion. There is a focus of hypermetabolism within the mi d body of the pancreas, presumably a metastatic focus although a primary lesion cannot be excluded. There is extensive periaortic, retroperitoneal and mesenteric hypermetabolic tumor the larg est mesenteric mass as best seen on image 346 of series 5 and measur es 2.9 x 3.9 cm. The SUV max 64.93. There are no suspicious adrenal mass les ions or opaque gallbladder calculi. ??Minimal pericholecystic fluid . There is symmetric nephrographic renal phase without hydron ephrosis. Incidental benign right renal cyst. There is no evidence for diverticulitis, bowel obstruction or free fluid. ??Multiple surgical clips within the base of the pelvis. BONES: There are extensive bony metastasis (kavon ly innumerable) throughout the ribs, spine, pelvis, neck, basal of skul l, calvarium, proximal humeri and proximal femora. Procedure Note Ward Braun MD - 10/07/2019F ormatting of this note might be different from the original. Combined Report of: PET GA-[address] on 10/07/2019 4:12 PM : 1. PET of the neck, chest, abdomen, and pelvis. 2. PET CT Fusion for Attenuation Correct ion and Anatomical Localization: 3. Diagnostic CT scan of the chest, abdo men, and pelvis with intravenous contrast for interpretation. 3. CT of the chest, abdomen and pelvis o btained for diagnostic interpretation. 4. 3D MIP and PET-CT fused images were p rocessed on an independent workstation and archived to PACS and rev iewed by a radiologist. Technique: 1. PET: The patient received 5.08 mCi of GA-68 Dotatate; body weight was 90 kg. Images were evaluated in the axial, sagittal, and coronal planes as well as the rotational whole b rodolfo MIP. Images were acquired from the Vertex to the Feet. UPTAKE WAS MEASURED AT 60 MINUTES. BACKGROUND: Liver SUV max= 9.84, Scatter ed metastatic foci throughout the liver, the highest SUV ma x is 17.71. 2. CT: Volumetric acquisition for clinic al interpretation of the chest, abdomen, and pelvis acquired at 3 mm sections . The chest, abdomen, and pelvis were evaluated at 5 mm sections in bone, soft tissue, and lung windows. The patient received 120 cc. Of Isovue 3 70 intravenously for the examination. -- 3. 3D MIP and PET-CT fused images were p rocessed on an independent workstation and archived to PACS and rev iewed by a radiologist. INDICATION: Gallium DOTATATE SCAN - Pet CT Scan: Head neck, Chest, abd pelv, eyes to thighs; History of prostat e cancer ADDITIONAL INFORMATION OBTAINED FROM EMR : none COMPARISON: None. FINDINGS: HEAD/NECK: Innumerable metastases foci throughout t he bones of the calvarium and base of skull. No soft tissue metastasis are identified. The paranasal sinuses are clear. The mas toid air cells are clear. The mucosal pharyngeal space, the mastic ator, prevertebral and carotid spaces are within normal limits. No masses, mass effect or pathologically enlarged lymph nodes are evident. The thyroid gland demonstrates a right-sided nodule, presumably a benign colloid nodule. CHEST: There or diffuse metastatic foci through out the bones of the thorax. There is a hypermetabolic lymph node in the subcarinal region and right anterior paratracheal region, There are no suspicious lung nodules or evidence for infection. There is no significant pericardial or p lural effusions. ABDOMEN AND PELVIS: There are a number of small hypermetabol ic metastatic foci throughout the liver, MRI could more accurately rolf racterization and number of the lesions if necessary. There is no splenomegaly or evidence for splenic mass lesion. There is a focus of hypermetabolism within the mi d body of the pancreas, presumably a metastatic focus although a primary lesion cannot be excluded. There is extensive periaortic, retroperitoneal and mesenteric hypermetabolic tumor the larg est mesenteric mass as best seen on image 346 of series 5 and measur es 2.9 x 3.9 cm. The SUV max 64.93. There are no suspicious adrenal mass les ions or opaque gallbladder calculi. Minimal pericholecystic fluid. There is symmetric nephrographic renal phase without hydron ephrosis. Incidental benign right renal cyst. There is no evidence for diverticulitis, bowel obstruction or free fluid. Multiple surgical clips within th e base of the pelvis. BONES: There are extensive bony metastasis (kavon ly innumerable) throughout the ribs, spine, pelvis, neck, basal of skul l, calvarium, proximal humeri and proximal femora. IMPRESSION: 1. 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 2. Small hypermetabolic tumor in mid bod y of pancreas, cannot exclude this as being the primary site. WARD BRAUN MD Gisell Starr Oleg PET ORDERABLES documented in this encounter Visit Diagnoses Diagnosis History of prostate cancer Personal history of malignant neoplasm o f prostate documented in this encounter Administered Medications Inactive Administered Medications - up to 3 most recent administrations Medication Order MAR Action Action Date Dose Rate Site Ga-68 dotatate (NETSPOT) Given 10/07/2019 2:16 PM BUSINESS SUPPORT ASSISTANT 5.08 mCi radioisotope injection 2-5.4 mCi 2-5.4 mCi, Intravenous, ONCE, On Thu10/07/19 at 1415, For 1 dose, Supplied by, and administered by Nuclear Medicine. *HW* iopamidol (ISOVUE-370) solution 10-135 m L Given 10/07/2019 3:35 PM BUSINESS SUPPORT ASSISTANT 122 mLs 10-135 mL, Intravenous, ONCE, On Thu10/07/19 at 1415, For 1 dose sodium chloride (PF) 0.9% PF flush 10-60 mL Given 10/07/2019 3:35 PM BUSINESS SUPPORT ASSISTANT 60 mLs 10-60 mL, Intravenous, ONCE, On Thu10/07/19 at 1415, For 1 dose documented in this encounter"
--- OUTSIDE RECORDS SUMMARY | 2022-06-06 12:15 | XMS_ITS | Encounter Summary ---
:1945 Author Organization [facility] Address [address] [place] [address] Care Team Providers Name Role Phone Home - [facility] Primary Care Provider Encounter Details Date Type Department Care Team Description 01/28/2021 Travel Social History Tobacco Use Types Packs/Day Years Used Date Never Assessed Sex Assigned at Date Recorded Not on file COVID-19 Exposure Response Date Recorded In the last month, have you been in contact with No / Unsure 01/28/2021 12:55 PM CDT someone who was confirmed or suspected to have Coronavirus / COVID-19? documented as of this encounter Plan of Treatment Not on filedocumented as of this encounter Visit Diagnoses Not on filedocumented in this encounter Care Teams Boiler Attendant Relationship Specialty Start Date End Date Home - [facility] PCP - General 01/22/21 [address] [facility] [place] [address] documented as of this encounter
--- OUTSIDE RECORDS SUMMARY | 2022-06-06 12:15 | XMS_ITS | Encounter Summary ---
:1945 Author Organization [facility] Address [address] [place] [address] Care Team Providers Name Role Phone Unavailable Primary Care Provider Unavailable Encounter Details Date Type Department Care Team Description 10/07/2019 Travel Social History Tobacco Use Types Packs/Day Years Used Date Never Assessed Sex Assigned at Date Recorded Not on file documented as of this encounter Plan of Treatment Not on filedocumented as of this encounter Visit Diagnoses Not on filedocumented in this encounter
--- OUTSIDE RECORDS SUMMARY | 2022-06-06 12:15 | XMS_ITS | Encounter Summary ---
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) Annie Singh MD Procedures PET [facility] [place], [place] [address] Referral ID Status Reason Start Date Expiration Date Visits Requ ested Visits Authorized [id number] Closed 01/10/2021 01/10/2022 1 1 Reason for Visit Diagnostic Imaging PET (Routine) - Closed Specialty Diagnoses / Procedures Referred By Contact Refer red To Contact Diagnoses 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) Annie Singh MD Procedures PET [facility] [place], [place] [address] Referral ID Status Reason Start Date Expiration Date Visits Requ ested Visits Authorized [id number] Closed 01/10/2021 01/10/2022 1 1 Encounter Details Date Type Department Care Team Description 01/28/2021 Hospital Encounter [facility] Gavi Singh carcinoid [facility] Imaging Annie Loza MD tumor of [address] [place] [address] unspecified site [place], [place] [facility] (H) [id number] [place], [place] [phone] Social History Tobacco Use Types Packs/Day Years [...] Associated Diagnosis Comme nts PET DOTATATE Routine 01/28/2021 3:20 PM Malignant carcinoid Re sults for this CDT tumor of unspecified procedu re are in site (H) the results section. documented in this encounter Results PET Dotatate (01/28/2021 3:20 PM CDT) Anatomical Region Laterality Modality Whole Body Positron Emission To mography (PET) Specimen (Source) Anatomical Location Collection Method / Collectio n Time Received Time / Laterality Volume Impressions 01/28/2021 11:18 PM CDT IMPRESSION: In this patient with a history of metastatic neuroendocrine carcinoma, there are mixe d findings since 10/07/2019 with several areas of slight improvement , but overall favor slight progression due to the clinical history and the worsening uptake to the bony disease, which is the predomina nt metastatic disease burden. 1. Innumerable osseous lesions in simila r distribution to 10/07/2019, with multiple lesions demonstrating mild ly increased avidity. L1 and L3 lesions might have mild epidural exte nsion. Further evaluation with lumbar spine is recommended. 2. Unchanged Dotatate avid adenopathy in the chest, abdomen, and pelvis. 3. Decreased avidity of the central mese nteric mass. 4. Decreased avidity of the hepatic meta stasis. 5. Stable peripancreatic foci, suggestiv e of peripancreatic adenopathy, versus intrapancreatic lesio ns. I have personally reviewed the examinati on and initial interpretation and I agree with the findings. WHITNEY YO MD Narrative 01/28/2021 11:18 PM CDT Combined Report of: PET Ga-[address] on ??01/28/2021 2:46 PM: 1. PET of the neck, chest, abdomen, and pelvis. 2. PET CT Fusion for Attenuation Correct ion and Anatomical Localization: ?? 3. 3D MIP and PET-CT fused images were p rocessed on an independent workstation and archived to PACS and rev iewed by a radiologist. Technique: 1. PET: The patient received 5.01 mCi of Ga-68 Dotatate; body weight was 95.5 kg. Images were evaluated in th e axial, sagittal, and coronal planes as well as the rotational whole b rodolfo MIP. Images were acquired from the eyes to the proximal thighs. UPTAKE WAS MEASURED AT 64 MINUTES. BACKGROUND: ??Liver SUV max = 9.[address]: CT only obtained for attenuation correction and not diagnostic purposes. 3. 3D MIP and PET-CT fused images were p rocessed on an independent workstation and archived to PACS and rev iewed by a radiologist. INDICATION: Neuroendocrine carcinoma, il eal primary, rising serotonin ADDITIONAL INFORMATION OBTAINED FROM EMR : None available. COMPARISON: PET-CT 10/07/2019 FINDINGS: HEAD/NECK: There is no suspicious Dotatate avidity in the neck. Trace mucosal thickening in the maxillary sinuses. The remaining paranasal sinuses are relatively clear. Normal uptake to t he pituitary gland. CHEST: Multiple dilatated avid lymph nodes are demonstrated in the posterior mediastinum, stable in size and increase in uptake. For example paraesophageal lymph node measuring 1.1 x 1.1 cm with SUV max 52.9 (series 4, image 207), previously 1.1 x 1.0 cm and SUV max 42.5. Heart size is enlarged. Trace fluid within the pericardial recesses. Mild coronary artery calcifications. Small ri ght Bochdalek hernia. No acute consolidation. ABDOMEN AND PELVIS: Stable size of the dotatate avid mass wi thin the central mesentery measuring 4.0 x 3.5 cm with SUV max 59.4 (series 4, image 329), previously 4.0 x 3.4 cm and SUV max 64.9 . Multiple dotatate avid lymph nodes are demonstrated in the abdomen an d pelvis which are also similar in size to prior. For example le ft para-aortic lymph node measuring 1.6 x 1.2 cm with SUV max 55.3 (series 4, image 313), previously 1.6 x 1.1 cm and SUV max 58.1 . Dotatate avid mass within the inferior segment 6 of the liver, poo rly defined on CT images but similar in size on PET images, and sligh tly decreased in uptake with SUV max 5.7, previously 29.6 (series 4, image 281). Stable small nodular foci along the body and tail of the pancreas (series 4, image 286). LOWER EXTREMITIES: There is no suspicious Dotatate avidity in the visualized lower extremities soft tissues. Please see bel ow for discussion of osseous findings. BONES: Innumerable dotatate avid lesions are ag ain demonstrated in the predominantly axial skeleton, as well as scattered lesions within the appendicular skeleton. This includes wit hin the calvarium, spine, sternum, scapulae, clavicles, ribs, pelv is, femurs, and humeri. Overall distribution of lesions is uncha nged from 10/07/2019 with no convincing new lesion. The skull base le sions are seen in the right petrous apex, left aspect of the clivus, mandibular condyles, C1 right lateral arch and multiple calvarial lesi ons. Uptake in these lesions is similar to mildly increased since nkechi or. For example left frontal calvarial lesion with SUV max 23.4, prev iously 24.8 (series 4, image 31), sternum with SUV max 45.3, previous ly 40.1 (series 4, image 180), posterior right fifth rib with SUV max 3 2.8, previously 28.4 (series 4, image 185), anterior left fifth rib w ith SUV max 31.1, previously 31.8 (series 4, image 251), and right il iac crest with SUV max 37.9, previously 33.7 (series 4, image 401). ? ?L1 and L3 lesions might have mild epidural extension. Further evaluat ion with lumbar spine is recommended. Procedure Note Whitney Yo MD - 01/28/2021 Combined Report of: PET Ga-[address] on 01/28/2021 2:46 PM: 1. PET of the neck, chest, abdomen, and pelvis. 2. PET CT Fusion for Attenuation Correct ion and Anatomical Localization: 3. 3D MIP and PET-CT fused images were p rocessed on an independent workstation and archived to PACS and rev iewed by a radiologist. Technique: 1. PET: The patient received 5.01 mCi of Ga-68 Dotatate; body weight was 95.5 kg. Images were evaluated in th e axial, sagittal, and coronal planes as well as the rotational whole b rodolfo MIP. Images were acquired from the eyes to the proximal thighs. UPTAKE WAS MEASURED AT 64 MINUTES. BACKGROUND: Liver SUV max = 9.[address]: CT only obtained for attenuation correction and not diagnostic purposes. 3. 3D MIP and PET-CT fused images were p rocessed on an independent workstation and archived to PACS and rev iewed by a radiologist. INDICATION: Neuroendocrine carcinoma, il eal primary, rising serotonin ADDITIONAL INFORMATION OBTAINED FROM EMR : None available. COMPARISON: PET-CT 10/07/2019 FINDINGS: HEAD/NECK: There is no suspicious Dotatate avidity in the neck. Trace mucosal thickening in the maxillary sinuses. The remaining paranasal sinuses are relatively clear. Normal uptake to t he pituitary gland. CHEST: Multiple dilatated avid lymph nodes are demonstrated in the posterior mediastinum, stable in size and increase in uptake. For example paraesophageal lymph node measuring 1.1 x 1.1 cm with SUV max 52.9 (series 4, image 207), previously 1.1 x 1.0 cm and SUV max 42.5. Heart size is enlarged. Trace fluid within the pericardial recesses. Mild coronary artery calcifications. Small ri ght Bochdalek hernia. No acute consolidation. ABDOMEN AND PELVIS: Stable size of the dotatate avid mass wi thin the central mesentery measuring 4.0 x 3.5 cm with SUV max 59.4 (series 4, image 329), previously 4.0 x 3.4 cm and SUV max 64.9 . Multiple dotatate avid lymph nodes are demonstrated in the abdomen an d pelvis which are also similar in size to prior. For example le ft para-aortic lymph node measuring 1.6 x 1.2 cm with SUV max 55.3 (series 4, image 313), previously 1.6 x 1.1 cm and SUV max 58.1 . Dotatate avid mass within the inferior segment 6 of the liver, poo rly defined on CT images but similar in size on PET images, and sligh tly decreased in uptake with SUV max 5.7, previously 29.6 (series 4, image 281). Stable small nodular foci along the body and tail of the pancreas (series 4, image 286). LOWER EXTREMITIES: There is no suspicious Dotatate avidity in the visualized lower extremities soft tissues. Please see bel ow for discussion of osseous findings. BONES: Innumerable dotatate avid lesions are ag ain demonstrated in the predominantly axial skeleton, as well as scattered lesions within the appendicular skeleton. This includes wit hin the calvarium, spine, sternum, scapulae, clavicles, ribs, pelv is, femurs, and humeri. Overall distribution of lesions is uncha nged from 10/07/2019 with no convincing new lesion. The skull base le sions are seen in the right petrous apex, left aspect of the clivus, mandibular condyles, C1 right lateral arch and multiple calvarial lesi ons. Uptake in these lesions is similar to mildly increased since nkechi or. For example left frontal calvarial lesion with SUV max 23.4, prev iously 24.8 (series 4, image 31), sternum with SUV max 45.3, previous ly 40.1 (series 4, image 180), posterior right fifth rib with SUV max 3 2.8, previously 28.4 (series 4, image 185), anterior left fifth rib w ith SUV max 31.1, previously 31.8 (series 4, image 251), and right il iac crest with SUV max 37.9, previously 33.7 (series 4, image 401). L 1 and L3 lesions might have mild epidural extension. Further evaluat ion with lumbar spine is recommended. IMPRESSION: In this patient with a histo ry of metastatic neuroendocrine carcinoma, there are mixe d findings since 10/07/2019 with several areas of slight improvement , but overall favor slight progression due to the clinical history and the worsening uptake to the bony disease, which is the predomina nt metastatic disease burden. 1. Innumerable osseous lesions in simila r distribution to 10/07/2019, with multiple lesions demonstrating mild ly increased avidity. L1 and L3 lesions might have mild epidural exte nsion. Further evaluation with lumbar spine is recommended. 2. Unchanged Dotatate avid adenopathy in the chest, abdomen, and pelvis. 3. Decreased avidity of the central mese nteric mass. 4. Decreased avidity of the hepatic meta stasis. 5. Stable peripancreatic foci, suggestiv e of peripancreatic adenopathy, versus intrapancreatic lesio ns. I have personally reviewed the examinati on and initial interpretation and I agree with the findings. 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 [address] documented as of this encounter
--- OUTSIDE RECORDS SUMMARY | 2022-06-06 12:15 | XMS_ITS | Encounter Summary ---
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 documented as of this encounter Plan of Treatment Not on filedocumented as of this encounter Visit Diagnoses Not on filedocumented in this encounter
[2022-06-06 12:30] VITALS: BP 145/85; PULSE 64; RESP 16; TEMP 36.4; O2SAT 94
== END 2022-06-06 12:50 | disposition home or self-care (01) ==
PROVIDERS: Emergency Provider Emergency Medicine Emergency Medical Services; PCP Internal Medicine
DX: R07.89 Other chest pain (principal)
CPT/HCPCS: 36415; 80048; 84484; 85025; 85610; 93005; 99284

== ENCOUNTER 2022-06-18 10:00 | Outpatient (RCR) | payer MEDICARE, OTHER, SELFPAY ==
--- NOTE | 2022-03-24 13:58 | PT.OPDNX ---
PT [place] [facility] Daily Note [facility] Daily Note Start: 03/12/22 08:15 Freq: Status: Active Protocol: Document 03/12/22 08:15 HUMBERTO (Rec: 03/12/22 08:20 HUMBERTO [id number]) E-Signed By Lacy Yee, PT PT OP Daily Progress Note Visit Information Note Type No Charge Visit Number 0 Cancellation Note Cancelled Documentation Client has been seen a total of 43 visits. Eval date Insurance Information Recert Due Date 03/07/22 Insurance Name Medicare B Medical Diagnosis Rt Achilles Tendonopathy Treating Diagnosis Pat at Rt post heel Reduced stance/walk tolerances Subjective Subjective A bit nervous in how my foot will do, leaving for [place] for 3 weeks next week. I have a few different shoes I am bringing with me, but still concerned. 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 Small stroke 2019 Weight Bearing Status Full Weight Bearing Objective Patient Instructed in Risks/Benefits Yes Therapeutic Exercise Therapeutic Exercise Minutes (minutes) 10 Therapeutic Exercise: To Restore reassessed his HEP Jose Chi ex Functional Status of Bamboo sequence for stretchig fascia and strengthening ankle /foot and improving balance: -Reach up to the sun -bend forward and back -fold like a scarf (required review/reeducation on this move) -Push back up to knees -twist to the right and left HEP of: gastroc stretches ( knee bent and straight), PF stretch on baseboard, toe curl/towel scrunch, SLS, heel raises, band use all 4 planes, partial wall slide, lunges forward/back, soft jumping, golfers reach, 123Balance, Also ice/ heat Manual Therapy Techniques Manual Therapy Minutes (minutes) 18 Manual Therapy Techniques to improve circulation and increase mobility, reduced discomfort, we completed: -supine for DTM full gastroc and achilles with manual stretching, grade 3 mobs full foot and ankle, TASTM full gastroc/achilles, and plantar surface Rt foot. TASTM achilles/ gastroc/peroneals and PF surface. Treatment Minutes Timed Code Treatment Minutes 28 Total Treatment Time 28 Assessment/Impression Assessment/Impression Cont to be very sensative at post calcaneal nodule and lateral calcaneal ridge. Able to cont with bike X 20 miles 3X/Day without too much trouble. Cont to have random inconsistent sharp pain. Advised to ice more. HOLD for 30 days, as he will be out of town/[place] until March 31. Plan of Care Physical Therapy Goals Addressed 09/25/21 STG: By Oct 24, Ricky will be able to: 1. Report reduced pain by an average of 50% with execution of ADL's and home chores, up to 3 hours on his feet MET 1A. As above, but increase to 4 hours on his feet 2. Walk up to 2 miles per day for ex at moderate 3 mph pace, without pain greater than 5/10 average and symmetric SB. MET 2A. As above, increase to 3 miles per day pace of 3.5 mph without pain greater samson 3/10 average 3. Ride bike up to 10 miles without pain greater than 5/10 average LTG: By (December 09) January 11, Ricky will be able to: 1. Squat, carry up to 40# ( camera bag/equipment) a distance of 30 yards, without pain greater than 3/10 90% of the time. 2. Stand/walk up to 6 hours per day without pain greater than 3/10 average 90% of the time. Daily Plan of Care Comments Information was pulled forward from prior doc on original [employer] format. Pat was not treated this date. No charge Recertification Information Clinical Certification # #[id number] Patient's H.I.C.N.# # I Certify That I Have Established All Therapy Services/Plan Physician Signature Shows Agreement Dates & Medical Necessity Physician Comment/Change Comment or Changes Physician Signature & Date Please Sign/Date Here Physician NPI Number # Document 03/24/22 13:03 HUMBERTO (Rec: 03/24/22 13:10 HUMBERTO [id number]) E-Signed By Lacy Yee, PT PT OP Daily Progress Note Visit Information Note Type Daily Note Visit Number 45 Cancellation Note Cancelled Documentation Eval date 09/05/21 Insurance Information Recert Due Date 03/07/22 Insurance Name Medicare B Medical Diagnosis Rt Achilles Tendonopathy Treating Diagnosis Pat at Rt post heel Reduced stance/walk tolerances Subjective Subjective While on vacation in [place], I spent much time on my feet - walked 5-10 miles on concrete regularly. My Rt foot/heel pain has increased significantly. Tylenol helped a bit. I also started using an aspirin cream which helped a bit. 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 Small stroke 2019 Weight Bearing Status Full Weight Bearing Objective Patient Instructed in Risks/Benefits Yes Therapeutic Exercise Therapeutic Exercise Minutes (minutes) 8 Therapeutic Exercise: To Restore reassessed his HEP Jose Chi ex Functional Status of Bamboo sequence for stretchig fascia and strengthening ankle /foot and improving balance: -Reach up to the sun -bend forward and back -fold like a scarf (required review/reeducation on this move) -Push back up to knees -twist to the right and left HEP of: gastroc stretches ( knee bent and straight), PF stretch on baseboard, toe curl/towel scrunch, SLS, heel raises, band use all 4 planes, partial wall slide, lunges forward/back, soft jumping, golfers reach, 123Balance, Also ice/ heat Manual Therapy Techniques Manual Therapy Minutes (minutes) 23 Manual Therapy Techniques to improve circulation and increase mobility, reduced discomfort, we completed: -supine for DTM full gastroc and achilles with manual stretching, grade 3 mobs full foot and ankle, TASTM full gastroc/achilles, and plantar surface Rt foot. TASTM achilles/ gastroc/peroneals and PF surface. Treatment Minutes Timed Code Treatment Minutes 31 Total Treatment Time 31 Assessment/Impression Assessment/Impression Client has not been seen in 45 days, as he was on vacation in [place]. While on vacation, he significantly increased his walking/hiking, and secondarily his symptoms increased from low pain average 3/10 to high pain of 8 /10. He arrived to dept with reduced stance phase of gait, reduced WB Rt LE and reduced heel to toe pattern. He cont to be very sensitive at post calcaneal nodule and lateral calcaneal ridge. He has regular (vs intermittent) sharp pain over post calcaneal. Advised to ice more and increase stretching to 3X/Day. He has consulted with his ortho Dr and it does not appear that he is a surgical dandidate. Plan of Care Physical Therapy Goals Addressed 01/23/22 STG: By Oct 24, Ricky will be able to: 1. Report reduced pain by an average of 50% with execution of ADL's and home chores, up to 3 hours on his feet MET 1A. As above, but increase to 4 hours on his feet 2. Walk up to 2 miles per day for ex at moderate 3 mph pace, without pain greater than 5/ 10 average and symmetric SB. MET 2A. As above, increase to 3 miles per day pace of 3.5 mph without pain greater than 3/10 average 3. Ride bike up to 10 miles without pain greater than 5/10 average LTG: By (December 09) January 11, Ricky will be able to: 1. Squat, carry up to 40# ( camera bag/equipment) a distance of 30 yards, without pain greater than 3/10 90% of the time. 2. Stand/walk up to 6 hours per day without pain greater than 3/10 average 90% of the time. Recertification Information Clinical Certification # #[id number] Patient's H.I.C.N.# # Initial Certification Date 09/05/21 Most Recent Visit 03/24/22 Recertification Start Date 06/19/22 Reasons to Continue Skilled Therapy Increased Rt foot / heel pain secondary to lapse in PT and prolonged walking/hiking and biking while on vacation in [facility] Potential Good Continued Plan of Care and Interventions 1X/Wk for 12 weeks I Certify That I Have Established All Therapy Services/Plan Therapist Signature & License Number Samanta Yee PT [id number] Physician Signature Shows Agreement Dates & Medical Necessity Physician Comment/Change Comment or Changes Physician Signature & Date Please Sign/Date Here Physician NPI Number #
--- NOTE | 2022-03-26 14:48 | PT.OPDNX ---
PT [place] [facility] Daily Note PT [facility] Out[facility] Daily Note Start: 03/12/22 08:15 Freq: Status: Active Protocol: Document 03/12/22 08:15 HUMBERTO (Rec: 03/12/22 08:20 HUMBERTO [id number]) E-Signed By Lacy Yee, PT PT OP Daily Progress Note Visit Information Note Type No Charge Visit Number 0 Cancellation Note Cancelled Documentation Client has been seen a total of 43 visits. Eval date Insurance Information Recert Due Date 03/07/22 Insurance Name Medicare B Medical Diagnosis Rt Achilles Tendonopathy Treating Diagnosis Pat at Rt post heel Reduced stance/walk tolerances Subjective Subjective A bit nervous in how my foot will do, leaving for [place] for 3 weeks next week. I have a few different shoes I am bringing with me, but still concerned. 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 Small stroke 2019 Weight Bearing Status Full Weight Bearing Objective Patient Instructed in Risks/Benefits Yes Therapeutic Exercise Therapeutic Exercise Minutes (minutes) 10 Therapeutic Exercise: To Restore reassessed his HEP Jose Chi ex Functional Status of Bamboo sequence for stretchig fascia and strengthening ankle /foot and improving balance: -Reach up to the sun -bend forward and back -fold like a scarf (required review/reeducation on this move) -Push back up to knees -twist to the right and left HEP of: gastroc stretches ( knee bent and straight), PF stretch on baseboard, toe curl/towel scrunch, SLS, heel raises, band use all 4 planes, partial wall slide, lunges forward/back, soft jumping, golfers reach, 123Balance, Also ice/ heat Manual Therapy Techniques Manual Therapy Minutes (minutes) 18 Manual Therapy Techniques to improve circulation and increase mobility, reduced discomfort, we completed: -supine for DTM full gastroc and achilles with manual stretching, grade 3 mobs full foot and ankle, TASTM full gastroc/achilles, and plantar surface Rt foot. TASTM achilles/ gastroc/peroneals and PF surface. Treatment Minutes Timed Code Treatment Minutes 28 Total Treatment Time 28 Assessment/Impression Assessment/Impression Cont to be very sensative at post calcaneal nodule and lateral calcaneal ridge. Able to cont with bike X 20 miles 3X/Day without too much trouble. Cont to have random inconsistent sharp pain. Advised to ice more. HOLD for 30 days, as he will be out of town/[place] until March 31. Plan of Care Physical Therapy Goals Addressed 09/25/21 STG: By Oct 24, Ricky will be able to: 1. Report reduced pain by an average of 50% with execution of ADL's and home chores, up to 3 hours on his feet MET 1A. As above, but increase to 4 hours on his feet 2. Walk up to 2 miles per day for ex at moderate 3 mph pace, without pain greater than 5/10 average and symmetric SB. MET 2A. As above, increase to 3 miles per day pace of 3.5 mph without pain greater samson 3/10 average 3. Ride bike up to 10 miles without pain greater than 5/10 average LTG: By (December 09) January 11, Ricky will be able to: 1. Squat, carry up to 40# ( camera bag/equipment) a distance of 30 yards, without pain greater than 3/10 90% of the time. 2. Stand/walk up to 6 hours per day without pain greater than 3/10 average 90% of the time. Daily Plan of Care Comments Information was pulled forward from prior doc on original [employer] format. Pat was not treated this date. No charge Recertification Information Clinical Certification # #[id number] Patient's H.I.C.N.# # I Certify That I Have Established All Therapy Services/Plan Physician Signature Shows Agreement Dates & Medical Necessity Physician Comment/Change Comment or Changes Physician Signature & Date Please Sign/Date Here Physician NPI Number # Document 03/24/22 13:03 HUMBERTO (Rec: 03/24/22 13:10 HUMBERTO [id number]) E-Signed By Lacy Yee, PT PT OP Daily Progress Note Visit Information Note Type Daily Note Visit Number 45 Cancellation Note Cancelled Documentation Eval date 09/05/21 Insurance Information Recert Due Date 03/07/22 Insurance Name Medicare B Medical Diagnosis Rt Achilles Tendonopathy Treating Diagnosis Pat at Rt post heel Reduced stance/walk tolerances Subjective Subjective While on vacation in [place], I spent much time on my feet - walked 5-10 miles on concrete regularly. My Rt foot/heel pain has increased significantly. Tylenol helped a bit. I also started using an aspirin cream which helped a bit. 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 Small stroke 2019 Weight Bearing Status Full Weight Bearing Objective Patient Instructed in Risks/Benefits Yes Therapeutic Exercise Therapeutic Exercise Minutes (minutes) 8 Therapeutic Exercise: To Restore reassessed his HEP Jose Chi ex Functional Status of Bamboo sequence for stretchig fascia and strengthening ankle /foot and improving balance: -Reach up to the sun -bend forward and back -fold like a scarf (required review/reeducation on this move) -Push back up to knees -twist to the right and left HEP of: gastroc stretches ( knee bent and straight), PF stretch on baseboard, toe curl/towel scrunch, SLS, heel raises, band use all 4 planes, partial wall slide, lunges forward/back, soft jumping, golfers reach, 123Balance, Also ice/ heat Manual Therapy Techniques Manual Therapy Minutes (minutes) 23 Manual Therapy Techniques to improve circulation and increase mobility, reduced discomfort, we completed: -supine for DTM full gastroc and achilles with manual stretching, grade 3 mobs full foot and ankle, TASTM full gastroc/achilles, and plantar surface Rt foot. TASTM achilles/ gastroc/peroneals and PF surface. Treatment Minutes Timed Code Treatment Minutes 31 Total Treatment Time 31 Assessment/Impression Assessment/Impression Client has not been seen in 45 days, as he was on vacation in [place]. While on vacation, he significantly increased his walking/hiking, and secondarily his symptoms increased from low pain average 3/10 to high pain of 8 /10. He arrived to dept with reduced stance phase of gait, reduced WB Rt LE and reduced heel to toe pattern. He cont to be very sensitive at post calcaneal nodule and lateral calcaneal ridge. He has regular (vs intermittent) sharp pain over post calcaneal. Advised to ice more and increase stretching to 3X/Day. He has consulted with his ortho Dr and it does not appear that he is a surgical dandidate. Plan of Care Physical Therapy Goals Addressed 01/23/22 STG: By Oct 24, Ricky will be able to: 1. Report reduced pain by an average of 50% with execution of ADL's and home chores, up to 3 hours on his feet MET 1A. As above, but increase to 4 hours on his feet 2. Walk up to 2 miles per day for ex at moderate 3 mph pace, without pain greater than 5/ 10 average and symmetric SB. MET 2A. As above, increase to 3 miles per day pace of 3.5 mph without pain greater than 3/10 average 3. Ride bike up to 10 miles without pain greater than 5/10 average LTG: By (December 09) January 11, Ricky will be able to: 1. Squat, carry up to 40# ( camera bag/equipment) a distance of 30 yards, without pain greater than 3/10 90% of the time. 2. Stand/walk up to 6 hours per day without pain greater than 3/10 average 90% of the time. Recertification Information Clinical Certification # #[id number] Patient's H.I.C.N.# # Initial Certification Date 09/05/21 Most Recent Visit 03/24/22 Recertification Start Date 06/19/22 Reasons to Continue Skilled Therapy Increased Rt foot / heel pain secondary to lapse in PT and prolonged walking/hiking and biking while on vacation in [facility] Potential Good Continued Plan of Care and Interventions 1X/Wk for 12 weeks I Certify That I Have Established All Therapy Services/Plan Therapist Signature & License Number Samanta Yee PT [id number] Physician Signature Shows Agreement Dates & Medical Necessity Physician Comment/Change Comment or Changes Physician Signature & Date Please Sign/Date Here Physician NPI Number #
== END 2022-06-18 14:31 | disposition home or self-care (01) ==
PROVIDERS: PCP Internal Medicine; Visit Provider Orthopaedic Surgery Sports Medicine
DX: M79.671 Pain in right foot (principal); Z51.89 Encounter for other specified aftercare
CPT/HCPCS: 97110; 97140

== ENCOUNTER 2022-10-04 14:27 | Emergency (ER) | payer MEDICARE, OTHER, SELFPAY ==
[2022-10-04 14:31] VITALS: BP 113/78; PULSE 81; RESP 18; TEMP 36.2; O2SAT 98; BMI 31.1
--- NOTE | 2022-10-04 14:40 | CRLHL7_ITS ---
For Patients: As a result of the Century Cures Act, medical imaging exams and procedure reports are released immediately into your electronic medical record. You may view this report before your referring provider. If you have questions, please contact your health care provider. HISTORY: Trauma. Fall. TECHNIQUE: Thoracic spine 3 views. Lumbar spine 2 views. COMPARISON: None. FINDINGS: Five lumbar type vertebral bodies. Thoracic spine: Exaggeration of the thoracic kyphosis. Mild anterior wedging of 2 mid thorax with vertebral bodies. Mild degenerative changes of the thoracic spine with mild disc space narrowing. No subluxation. Lumbar spine: Grade 1 anterolisthesis of L4 on L5. Severe disc space narrowing at L5-S1. Endplate osteophytes at additional levels in the lumbar spine without disc space narrowing. Vertebral body heights are maintained. Facet arthrosis. Surgical clips in the pelvis. IMPRESSION: 1. Age-indeterminate mild anterior wedging of two adjacent vertebral bodies in the thoracic spine. Appearance may be physiologic or posttraumatic. 2. Multilevel degenerative changes in the thoracic and lumbar spine. Dictated by Umer Rao MD @ 10/04/2022 3:54:20 PM (Electronically Signed)
--- NOTE | 2022-10-04 14:41 | ED_ITS ---
HPI - General Adult General Chief complaint: Back Injury/Pain Stated complaint: Fell on ice landed on back. Bad back pain. Time Seen by Provider: 10/04/22 14:32 Source: patient Mode of arrival: ambulatory Limitations: no limitations History of Present Illness HPI narrative: 77-year-old male coming in today complaining of back pain after falling on the ice 2 days ago and landing on his back. Patient states he did not hit his head or lose consciousness. He had some mild discomfort after he fell but his discomfort has gotten worse with each passing day. He is having a hard time getting up and down from a sitting or lying position. He denies any headache, confusion, fogginess, difficulty breathing, pain with deep inspiration, abdominal pain, pain radiating down to his legs. He denies any loss of bowel or bladder function. He denies any nausea or vomiting. Pain is located in the mid to lower back he describes it as being in the center radiating into the right side. He is on a blood thinner. He has been taking Tylenol for the last couple days with minimal relief of his discomfort. Related Data Home Medications Medication Instructions Recorded Confirmed sotalol 80 mg tablet 80 mg PO Q12H 06/06/22 06/06/22 warfarin 5 mg tablet 5 mg PO DAILY 06/06/22 06/06/22 Previous Rx's Medication Instructions Recorded cyclobenzaprine 10 mg tablet 10 mg PO TID PRN muscle spasm #20 10/04/22 tabs Allergies Allergy/AdvReac Type Severity Reaction Status Date / Time No Known Drug Allergies Allergy Verified 06/06/22 10:57 Review of Systems Status of ROS: Reports: 10 or more systems reviewed and unremarkable except as noted in History and below [facility] Social History Smoking Status: Former smoker How often do you have a drink containing alcohol: monthly or less AUDIT-C Alcohol total score: 1 Non-prescribed substance use: denies use Exam Narrative: Exam Narrative: Well-nourished well-developed patient in no acute distress. Alert and oriented. Answers questions appropriately. Mood and affect are appropriate. Thoughts are goal oriented and rational. No tangential or magical thinking noted. Patient speaks in full sentences without needing to catch their breath. He is lying in bed comfortably but when asked him to get up he has a really difficult time sitting up secondary to pain. HEENT: Normocephalic atraumatic. Pupils are equally round reactive to light. Extraocular muscles are intact. Conjunctivae are moist without any icterus noted. Cardiovascular: Heart is regular rate and rhythm S1 and S2 are present without any murmurs. Lungs: Clear to auscultation bilaterally no wheezes rhonchi or rales are appreciated. Patient takes deep breaths without any discomfort. Abdomen: Soft and nontender nondistended with normal bowel sounds. No guarding or rebound. No masses or organomegaly appreciated. Skin: Well perfused without any obvious rashes. Back: Normal appearance. There is no bruising or erythema noted. He has no tenderness to palpation over the cervical spine. He has point tenderness over the thoracic or lumbar spine. He just points to the area around the center and right mid to lower back as uncomfortable. He has no CVA tenderness. He has no tenderness to palpation of the ribcage. Const: Vital Signs, click to edit/add: Vital Signs - 24 hr 10/04/22 14:31 Temperature 97.1 F L Pulse Rate [Right Pulse Oximeter] 81 Respiratory Rate 18 Blood Pressure [Ri ght Upper Arm] 113/78 Pulse Oximetry 98 Oxygen Delivery Me thod Room Air Course Course Hospital Course: Proceeded with lumbar and thoracic spine x-rays which show age indeterminate mild anterior wedging of 2 thoracic vertebrae. Given location of his pain this could certainly be a result of his recent fall. I do think he is having a lot of muscle spasms in the area as well. I did discuss this with patient and his w cali and they tell me he has never had compression fractures in the past. Vital Signs Vital signs: Initial Vital Signs Temperature 97.1 F L 10/04/22 14:31 Temperature Source Temporal Artery Scan 10/04/22 14:31 Pulse Rate 81 10/04/22 14:31 Respiratory Rate 18 10/04/22 14:31 Blood Pressure 113/78 10/04/22 14:31 Blood Pressure Mean 89 10/04/22 14:31 Blood Pressure Position Sitting 10/04/22 14:31 Pulse Oximetry 98 10/04/22 14:31 Oxygen Delivery Method 10/04/22 14:31 Vital Signs Temperature 97.1 F L 10/04/22 14:31 Pulse Rate 81 10/04/22 14:31 Respiratory Rate 18 10/04/22 14:31 Blood Pressure 113/78 10/04/22 14:31 Pulse Oximetry 98 10/04/22 14:31 Oxygen Delivery Method 10/04/22 14:31 Temperature 97.1 F L 10/04/22 14:31 Pulse Rate 81 10/04/22 14:31 Respiratory Rate 18 10/04/22 14:31 Blood Pressure 113/78 10/04/22 14:31 Pulse Oximetry 98 10/04/22 14:31 Oxygen Delivery Method 10/04/22 14:31 Medical Decision Making MDM Narrative Medical decision making narrative: 77-year-old male status post fall now presenting with worsening back pain, ques tion anterior wedging of 2 thoracic vertebrae as a result of his fall. At this time we will send him home with hydrocodone, Flexeril. We discussed heat, gentle stretching. We discussed making sure he is taking deep breaths throughout the day and ambulating as much as he can. We discussed reasons for follow-up. Patient was agreeable with everything we discussed and had no other questions. Imaging Data Thoracic and lumbar spine x-ray: Attestation: I have reviewed the pertinent imaging results. Radiologist's impression: TECHNIQUE: Thoracic spine 3 views. Lumbar spine 2 views. COMPARISON: None. FINDINGS: Five lumbar type vertebral bodies. Thoracic spine: Exaggeration of the thoracic kyphosis. Mild anterior wedging of 2 mid thorax with vertebral bodies. Mild degenerative changes of the thoracic spine with mild disc space narrowing. No subluxation. Lumbar spine: Grade 1 anterolisthesis of L4 on L5. Severe disc space narrowing at L5-S1. Endplate osteophytes at additional levels in the lumbar spine without disc space narrowing. Vertebral body heights are maintained. Facet arthrosis. Surgical clips in the pelvis. IMPRESSION: 1. Age-indeterminate mild anterior wedging of two adjacent vertebral bodies in the thoracic spine. Appearance may be physiologic or posttraumatic. 2. Multilevel degenerative changes in the thoracic and lumbar spine. Discharge Plan Discharge Clinical Impression: Compression fracture, Back pain Patient Disposition: Home, Self-Care Condition: Stable Additional Instructions: Take pain medications as needed. These can cause constipation, therefore, you should take daily MiraLax and-or a stool softener to prevent constipation from happening. You can use heat to the back to help relax the muscles and you have also been prescribed a muscle relaxer to take as needed. Recommend you follow- up with your primary care provider in about 1 week. Prescriptions: New cyclobenzaprine 10 mg tablet 10 mg PO TID PRN (Reason: muscle spasm) Qty: 20 0RF No Action sotalol 80 mg tablet 80 mg PO Q12H warfarin 5 mg tablet 5 mg PO DAILY Rx Instructions: 5 mg 5 times per week and 2 days 7.5 mg Follow Up/Referrals: Rosalinda Yancey MD [Primary Care Provider] - Stand Alone Forms: [facility] Info Instructions
[2022-10-04 16:14] VITALS: RESP 20
== END 2022-10-04 16:14 | disposition home or self-care (01) ==
PROVIDERS: Emergency Provider Family Medicine; PCP Internal Medicine
DX: S32.009A Unspecified fracture of unspecified lumbar vertebra, initial encounter for closed fracture (principal); W00.9XXA Unspecified fall due to ice and snow, initial encounter
CPT/HCPCS: 72072; 72100; 99283; 99284

== ENCOUNTER 2022-10-23 07:12 | Outpatient (CLI) | payer MEDICARE, OTHER, SELFPAY ==
--- NOTE | 2022-10-23 07:15 | CRLHL7_ITS ---
For Patients: As a result of the Century Cures Act, medical imaging exams and procedure reports are released immediately into your electronic medical record. You may view this report before your referring provider. If you have questions, please contact your health care provider. Indication: BACK PAIN Technique: Noncontrast sagittal and axial T1, T2, and sagittal STIR sequences are provided. Comparison: Radiographs 10/04/22 Findings: Lumbar lordosis is preserved. There is a chronic L2 and L3 left superior endplate compression fracture. There is an acute L1 superior endplate compression fracture with 35 percent loss of vertebral body height. There is diffuse decreased T1 signal throughout the L1 bone marrow concerning for underlying pathologic fracture. Chronic grade 1 anterolisthesis at L4-5. Moderate interspace narrowing at L5-S1. There are numerous T1 hypointense T2/STIR hyperintense lesions scattered throughout the lumbar spine, sacrum, and iliac bones most consistent with metastases. No evidence of epidural tumor extension. Right renal cyst. T12-L1: No significant spinal canal stenosis or neural foramen narrowing. L1-2: Mild disc bulge. No significant spinal canal stenosis or neural foramen narrowing. L2-3: Mild disc bulge and facet arthrosis. No significant spinal canal stenosis or neural foramen narrowing. L3-4: Disc bulge and moderate facet arthrosis. No significant spinal canal stenosis or neural foramen narrowing. L4-5: Grade 1 anterolisthesis with diffuse uncovering of the disc. Advanced facet arthrosis and ligamentum flavum buckling. Mild spinal canal stenosis. Oblique orientation of the neural foramina without significant stenosis. L5-S1: Moderate interspace narrowing. Disc bulge and endplate osteophytic spurring. Mild bilateral neural foramen narrowing. No significant spinal canal stenosis. 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 Left anterior SI joint osteophytes. Impression: 1. Numerous marrow replacing lesions throughout the lumbar spine, sacrum, and iliac bones consistent with osseous metastases. 2. Pathologic acute L1 superior endplate compression fracture without retropulsion. 35 percent loss of vertebral body height. 3. Chronic left L2 and L3 superior endplate compression fractures. 4. No significant spinal canal stenosis or neural foramen narrowing. 5. 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 Dictated by Ventura Vasquez MD @ 10/24/2022 8:31:34 AM (Electronically Signed)
== END 2022-10-23 07:13 | disposition home or self-care (01) ==
LOC: MRI 07:13
PROVIDERS: PCP Internal Medicine; Visit Provider Internal Medicine
DX: M54.9 Dorsalgia, unspecified (principal); M51.26 Other intervertebral disc displacement, lumbar region
CPT/HCPCS: 72148

== ENCOUNTER 2023-06-08 13:00 | Outpatient (RCR) | payer MEDICARE, OTHER, SELFPAY ==
--- NOTE | 2023-01-28 18:02 | PT.OPDN ---
PT [facility] Daily Note PT [facility] Daily Note Start: 10/23/22 12:55 Freq: Status: Active Protocol: Document 01/28/23 17:03 YONNY (Rec: 01/28/23 18:01 YONNY Desktop) E-signed By Chavo Peter, PT, ATC PT OP Daily Progress Note Visit Information Note Type Daily Note,Recert/Progress Note Visit Number [phone] Insurance Authorized Visits tbd Insurance Information Insurance Name Medicare B Medical Diagnosis M54.9 Dorsalgia Treating Diagnosis Low back pain Referring MD [place] Subjective Subjective Following three months of care in PT, Ricky is requesting to continue therapy as he doesn't feel his back has fully healed and longer periods between sessions has proven to increase his back symptoms. Estimates 1-2 painful days which effect his ability to perform ADL's. 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 He does acknowledge considerable improvement in all areas of function and performance. Preferred Name Ricky Precautions Weight Bearing Status Full Weight Bearing Objective Other/Pertinent Objective Trunk ROM deficits EXT and R ROT -25%, L SB and ROT -10%. All motions limited by R sided lower back pain. Patient Instructed in Risks/Benefits Yes Manual Therapy Techniques Manual Therapy Minutes (minutes) 30 Manual Therapy Techniques STM, DTM, CFFM, MFR to R and L low back Treatment Minutes Timed Code Treatment Minutes 30 Total Treatment Time 30 Billing Units Manual Therapy Units 2 Assessment/Impression Assessment/Impression Ricky has definitely improved since experiencing a lumbar compression fracture and beginning PT 3 months ago. Skilled PT is still recommended as he still shows some ROM and movement pattern deficit and experiences activity modifying R sided back pain. I feel the compression fracture is stable following 12 weeks of healing yet peripheral muscle guarding continues. All initial goals have been achieved in therapy. Additional goals are listed below. Plan of Care Physical Therapy Goals 1.WFL R trunk ROT and EXT to permit consistent mobility sufficient enough to perform all ADL's-dressing without UE assistance or leaning on furniture. 2.Able to lift a carry boxes exceeding 30# up to five consecutive times allowing him a full return to the Meals on Wheels program. 3.Decrease lower back pain symptoms to 2/10 maximum x 1 day per week or less. Daily Plan of Care Continue per POC Daily Plan of Care Comments Recommend weekly visits 1x per week every 1-2 weeks. Recertification Information Initial Certification Date 10/23/22 Recertification Start Date 01/20/23 Recertification Due Date 04/22/23 Rehabilitation Potential drew Ricky is very compliant and dedicated to his recovery process and exercise program away from PT Provider Signature Shows Agreement With POC & Medical Necessity
--- NOTE | 2023-04-22 16:46 | PT.OPDN ---
PT [facility] Daily Note PT [facility] Out[facility] Daily Note Start: 10/23/22 12:55 Freq: Status: Active Protocol: Document 04/22/23 13:50 YONNY (Rec: 04/22/23 15:34 [email or web address] [id number]) E-signed By Chavo Peter, PT, ATC PT OP Daily Progress Note Visit Information Note Type Daily Note,Recert/Progress Note Visit Number [phone] Insurance Authorized Visits tbd Insurance Information Insurance Name Medicare B Medical Diagnosis M54.9 Dorsalgia Treating Diagnosis Low back pain Referring MD [place] Subjective Subjective Reports daily soreness in the lower back each morning when leaning over to brush his teeth. This soreness is rated a 4/10 and usually lessens to a 0-1/10 for remainder of day. Occasionally, however, it continues for the remainder of the day. Requesting to continue therapy a bit longer as he'd like the assurance that his back is going to further improve. Able to perform all lifts from floor to waist level yet still limiting weight amounts to 1-15#. Still not lifting weighted objects over head Preferred Name Ricky Precautions Weight Bearing Status Full Weight Bearing Objective Other/Pertinent Objective Trunk ROM deficits EXT and R ROT -25%, L SB and ROT -10%. All motions limited by R sided lower back pain-stiffness. Patient Instructed in Risks/Benefits Yes Therapeutic Exercise Therapeutic Exercise Minutes (minutes) 40 Therapeutic Exercise: To Restore leg press 3x15 50-75# Functional Status cable trunk rot 4 plates 2x10 R and L K brown squats, 35# 2x10 back ext mach 90-110# 2x15 combined hip ABD and ankle IR 5x10 hold Sball pelvic rotations, side lifts and ant-post tilt tband blute resisted hip rotation 2x15 Lateral hip hikes from box 2x15 per side Manual Therapy Techniques Manual Therapy Minutes (minutes) 5 Manual Therapy Techniques Passive stretching of hips and lumbar spine from supine position LE distraction Treatment Minutes Timed Code Treatment Minutes 45 Total Treatment Time 45 Billing Units Therapeutic Exercise Units 3 Assessment/Impression Assessment/Impression Ricky has made decent progress with his return to most ADL's and recreational activities. He is not yet biking for fear of increased stress/strain through his lower spine. He also is not lifting heavy objects from the ground level as this especially creates low back soreness. 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 He appears compliant with ex away from PT still and these should be continued up to a year following the compression fx injury. He would like to continue rehab 2-4x per month through the fall since he still is experiencing lower back pain- stiffness related to his compression fracture. Plan of Care Physical Therapy Goals 1.WFL R trunk ROT and EXT to permit consistent mobility sufficient enough to perform all ADL's-dressing without UE assistance or leaning on furniture. 2.Able to lift a carry boxes exceeding 30# up to five consecutive times allowing him a full return to the Meals on Wheels program. 3.Decrease lower back pain symptoms to 2/10 maximum x 1 day per week or less. 4.Bike x 5 miles without lower back pain > 2/10 Daily Plan of Care Continue per POC Daily Plan of Care Comments Continue PT additional 2-3 months working towards completion of functional goals . Recertification Information Initial Certification Date 10/23/22 Recertification Start Date 04/22/23 Recertification Due Date 07/23/23 Reasons to Continue Skilled Therapy Although he's made progress towards goals 2 and 3, these remain left to complete. 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 Rehabilitation Potential Good Continued Plan of Care and Interventions Continue lower back, hip and LE strengthening. Further develop dynamic mobility working towards return to biking. Increase resistance training allowing return to demands of delivering community meal.s
== END 2023-06-08 15:09 | disposition home or self-care (01) ==
PROVIDERS: PCP Internal Medicine; Visit Provider Internal Medicine
DX: M54.50 Low back pain, unspecified (principal); Z51.89 Encounter for other specified aftercare; M48.56XD Collapsed vertebra, not elsewhere classified, lumbar region, subsequent encounter for fracture with routine healing
CPT/HCPCS: 36415; 72148; 85610; 97032; 97110; 97140; 97161

== ENCOUNTER 2023-10-01 09:00 | Outpatient (CLI) | payer MEDICARE, OTHER, SELFPAY ==
--- OUTSIDE RECORDS SUMMARY | 2023-10-01 09:05 | XMS_ITS | Continuity of Care Document ---
Author Name [facility] Organization [facility] Care Team Providers Care Compounder Name Role Phone [facility] Unavailable Unavailable Problems Combined list of problems from 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 It does not include entries that were removed or entered in error. 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 Condition [facility] Colonoscopy normal Active Condition Oct 06, 2018 Entered By: HARLAN SUN Comment: 2000 [facility] Health Maintenance Active Condition Dec 22, 2012 Entered By: HARLAN SUN Comment: colonoscopy 2006, next due 2016 [facility] Hearing Loss, Bilateral Active Condition [facility] High risk drug monitoring status Active Condition [facility] History of deep vein thrombosis Active Condition [facility] Hyperlipidemia (SNOMED CT 71585788) Active Condition [facility] Impotence Active Condition [facility] Long-term current use of anticoagulant Active Condition [facility] Osteoarthritis of knee (SNOMED CT 490719555) Active Condition [facility] Osteopenia Active Condition [facility] Pain in limb (ICD-9-CM 729.5) Active Condition Dec 27 3 Entered By: HARLAN SUN Comment: knee pain [facility] Post Vit Detachment Active Condition [facility] Secondary malignant neoplasm of bone Active Condition [facility] Solitary nodule of lung Active Condition [facility] Trigger Finger (ICD-9-CM 727.03) Inactive Condition 08/11/2017 [facility] Diagnosis: ICD-10-CM Z51.81 Encounter for therapeutic drug level monitoring Active Diagnosis MARIS WHITAKER [facility] Diagnosis: ICD-10-CM 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 MARNI Julien [facility] Diagnosis: ICD-10-CM D07.5 Carcinoma in situ of prostate Active Diagnosis [facility] Diagnosis: ICD-10-CM C7A.00 Malignant carcinoid tumor of unspecified site Active Diagnosis [facility] Diagnosis: ICD-10-CM M54.50 Low back pain, unspecified Active Diagnosis [facility] Diagnosis: ICD-10-CM M54.2 Cervicalgia Active Diagnosis [facility] Diagnosis: ICD-10-CM 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 Diagnosis [facility] Diagnosis: ICD-10-CM Z79.899 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 Active Diagnosis [facility] Diagnosis: ICD-10-CM Z86.718 Personal history of other venous thrombosis and embolism Active Diagnosis [facility] Diagnosis: ICD-10-CM I48.91 Unspecified atrial fibrillation Active Diagnosis [facility] Diagnosis: ICD-10-CM Z13.6 Encounter for screening for cardiovascular disorders Active Diagnosis [facility] Diagnosis: ICD-10-CM Z51.11 Encounter for antineoplastic chemotherapy Active Diagnosis [facility] Diagnosis: ICD-10-CM Z78.9 Other specified health status Active Diagnosis [facility] Diagnosis: ICD-10-CM R52 Pain, unspecified Active Diagnosis JYOTI BARRIOS [facility] Diagnosis: ICD-10-CM Z98.1 Arthrodesis status Active Diagnosis [facility] Diagnosis: ICD-10-CM M77.31 Calcaneal spur, right foot Active Diagnosis [facility] Diagnosis: ICD-10-CM Z71.9 Counseling, unspecified Active Diagnosis [facility] Diagnosis: ICD-10-CM Z01.818 Encounter for other preprocedural examination Active Diagnosis [facility] Diagnosis: ICD-10-CM M76.61 Achilles tendinitis, right leg Active Diagnosis [facility] Diagnosis: ICD-10-CM Z71.89 Other specified counseling Active Diagnosis [facility] Medications Combined list of outpatient medications from 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Medications provided include 1) outpatient medications from the last 15 months, and 2) patient-reported medications. Medication Details Route Status Patient Instructions Prescription Expires Prescription Number Last Dispense Date Ordering Provider Order Date Source [facility] [phone] (COVID vac 2022- (12 yr and up) XBB.1.5 (raxtozinam ginger)/PF), 30 MCG/0.3, SYRINGE, INTRAMUSC, PFIZER US PHARM, .3 ml SYRINGE Active [id number] 2023 Pharmac y Data Transac tion Service Facilit y FLUTICASONE PROPIONATE 50MCG/SPRAY SOLN,NASAL, 16GM SPRAY 2 SPRAYS IN EACH NOSTRIL EVERY DAY USE REGULARL Y FOR RELIEF OF ALLERGIE S/CONGES TION NASAL 04/05/2023 [id number] 3 CLAYTON ROLLE 2021 [facility] OCTREOTIDE 200 MCG/ML INJ VIAL [5ML] INJECT 0.75MLS (150MCG) UNDER THE SKIN TWICE A DAY 08/28/2022 [id number] 2 LILI GARCIA 2022 [facility] OCTREOTIDE ACETATE 0.2MG/ML INJ INJECT 0.75MLS (150MCG) UNDER THE SKIN TWICE A DAY SUBCUT ANEOUS 08/28/2022 [id number] 2 LILI GARCIA 2021 [facility] OCTREOTIDE ACETATE 20MG/KIT INJ,SUSP,SA INJECT 20MG 20MG INTRAMUS CULAR EVERY MONTH IN HEME/ONC CLINIC *DO NOT MAIL TO BE DISPENSE IN CLINIC INTRAM LEATHA RAYMUNDO INUED 08/13/2023 [id number] 2 LILI GARCIA 2021 [facility] PSYLLIUM PWDR,ORAL TAKE 1 TABLESPO ONFUL BY MOUTH TWICE A DAY FOR REGULAR BOWEL MOVEMENT S ORALLY ACTIVE 12/03/2023 [id number] 3 LILI GARCIA 2022 [facility] simethicone 80 MG ORAL CHEW CHEW ONE TABLET BY MOUTH THREE TIMES A DAY NEEDED FOR GAS Active 05/05/2024 [id number] 3 CLAYTON ROLLE 2022 [facility] SIMETHICONE 80MG TAB,CHEW CHEW ONE TABLET BY MOUTH THREE TIMES A DAY NEEDED FOR GAS ORALLY ACTIVE 05/05/2024 [id number] 3 CLAYTON ROLLE 2022 [facility] SOTALOL HCL 80MG TAB TAKE ONE TABLET BY MOUTH TWO TIMES A DAY ORALLY ACTIVE 01/01/2024 [id number] 3 Diego KATZ 2022 [facility] SOTALOL HCL 80MG TAB TAKE ONE TABLET BY MOUTH TWO TIMES A DAY ORALLY DISCONT INUED 12/19/2022 [id number] 3 Diego KATZ 2021 [facility] Sotalol Hydrochlori de (Betapace) Tablet 80 mg Oral TAKE ONE TABLET BY MOUTH TWO TIMES A DAY Active 01/01/2024 [id number] 3 LUISITO KATZ 2022 [facility] Sotalol Hydrochlori de (Betapace) Tablet 80 mg Oral TAKE ONE TABLET BY MOUTH TWO TIMES A DAY 12/19/2022 [id number] 3 LUISITO KATZ 2022 [facility] VITAMIN E CAP,ORAL TAKE BY MOUTH EVERY MORNING ORALLY ACTIVE LILI GARCIA 2021 [facility] WARFARIN NA ([place]) 5MG TAB TAKE THIS MEDICATI ON BY MOUTH EVERY DAY TO TREAT AND/OR PREVENT BLOOD CLOTS DIRECTED BY [facility] (PHONE: [phone]) ORALLY ACTIVE 12/04/2023 [id number] 3 MAYI MILLER 2022 [facility] WARFARIN NA ([place]) 5MG TAB TAKE ONE AND ONE-HALF TABLETS BY MOUTH THURSDAY AND THURSDAY AND TAKE ONE TABLET ALL OTHER DAYS OR DIRECTED BY [facility] TO TREAT AND/OR PREVENT BLOOD CLOTS ORALLY DISCONT INUED 01/23/2023 [id number] 2 LUISITO NI 2021 [facility] Warfarin Sodium (GSMS/Taro Brand) Tablet 5 mg Oral TAKE THIS MEDICATI ON BY MOUTH EVERY DAY TO TREAT AND/OR PREVENT BLOOD CLOTS DIRECTED BY THE [facility] (PHONE: ) Active 12/04/2023 [id number] 3 NORMA MILLER 2022 [facility] Allergies, Adverse Reactions, Alerts Combined list of allergies from 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 It does not include entries that were removed or entered in error. Substance Category Reaction Severity Reaction type Status Date Reported Comments Source DIAL SOAP Propensity to adverse reaction (finding) Eruption active 7 [facility] NAPROXEN Propensity to adverse reactions to drug (finding) Diarrhea active 1 [facility] No Known Allergies Drug allergy (disorder) active 8 [facility] Immunizations Combined list of available immunizations from the 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 Immunization Series Date Given Administered By Site Reaction Lot Number CVX Code Drug Temporary Receptionist Status Comments Source INFLUENZA, HIGH-DOSE, QUADRIVALENT 2022 197 complet ed [facility] TDAP 2022 115 complet [facility] COVID-19 (PFIZER), MRNA, LNP-S, BIVALENT, PF, 30 MCG/0.3 ML DOSE 2021 300 complet [facility] INFLUENZA, HIGH-DOSE, QUADRIVALENT 2021 197 complet ed [facility] INFLUENZA, UNSPECIFIED FORMULATION 2021 88 complet [facility] COVID-19, mRNA, LNP-S, PF, 30 mcg/0.3 mL dose, vineet-sucrose 2021 YURY [employer] [facility] (PFR) Not Given COVID-19, mRNA, LNP-S, PF, 30 mcg/0.3 mL dose, vineet-sucr ose [facility] COVID-19 (PFIZER), MRNA, LNP-S, PF, 30 MCG/0.3 ML DOSE, VINEET-SUCROSE (AGES 12+ YEARS) 2021 217 complet [facility] influenza, high-dose, quadrivalent 2020 YURY, () Not Given influenza , high-dose , quadrival ent DoD COVID-19 (PFIZER), MRNA, LNP-S, PF, 30 MCG/0.3 ML DOSE 2020 208 complet [facility] INFLUENZA, HIGH-DOSE, QUADRIVALENT 2020 197 complet [facility] INFLUENZA, UNSPECIFIED FORMULATION 2020 88 complet [facility] COVID-19 (PFIZER), MRNA, LNP-S, PF, 30 MCG/0.3 ML DOSE 2020 208 complet [facility] COVID-19 (PFIZER), MRNA, LNP-S, PF, 30 MCG/0.3 ML DOSE 1 2020 208 complet [facility] INFLUENZA, INJECTABLE, QUADRIVALENT, PRESERVATIVE FREE 2019 150 complet [facility] INFLUENZA, HIGH DOSE SEASONAL 2018 135 complet [facility] INFLUENZA, RECOMBINANT, QUADRIVALENT, INJECTABLE, PRESERVATIVE FREE 2018 185 complet [facility] ZOSTER RECOMBINANT 2 2018 187 complet [facility] ZOSTER RECOMBINANT 1 2018 187 complet [facility] INFLUENZA, SEASONAL, INJECTABLE 2017 141 complet [facility] INFLUENZA, SEASONAL, INJECTABLE 2017 141 complet [facility] INFLUENZA, HIGH DOSE SEASONAL 2016 135 complet [facility] INFLUENZA, HIGH DOSE SEASONAL 2016 135 complet [facility] TDAP 2015 115 complet [facility] INFLUENZA, HIGH DOSE SEASONAL 2015 135 complet [facility] Influenza, high dose seasonal 2014 KIND, () Not Given Influenza , high dose seasonal [facility] PNEUMOCOCCAL CONJUGATE PCV 13 2014 133 complet ed Kat Joyner 219,09/30 [facility] zoster live 2014 KIND, () Not Given zoster live [facility] INFLUENZA, UNSPECIFIED FORMULATION 2013 88 complet [facility] INFLUENZA, HIGH DOSE SEASONAL 2013 135 complet [facility] TDAP 2013 115 complet ed [employer],U6 606AB,Sep [facility] PNEUMOCOCCAL CONJUGATE PCV 13 2013 133 complet ed [facility] INFLUENZA, SEASONAL, INJECTABLE 2012 141 complet ed [facility] INFLUENZA, UNSPECIFIED FORMULATION 2012 88 complet ed [facility] INFLUENZA, UNSPECIFIED FORMULATION 2011 88 complet ed [facility] INFLUENZA, SEASONAL, INJECTABLE 2011 141 complet ed [facility] INFLUENZA, SEASONAL, INJECTABLE 2010 141 complet ed [facility] INFLUENZA, UNSPECIFIED FORMULATION 2010 88 complet ed [facility] INFLUENZA, UNSPECIFIED FORMULATION 2009 88 complet ed per pt [facility] NOVEL INFLUENZA-H1N 1-09, ALL FORMULATIONS 2009 128 complet ed [facility] INFLUENZA, INJECTABLE, QUADRIVALENT, PRESERVATIVE FREE 2009 150 complet ed [facility] NOVEL INFLUENZA-H1N 1-09, ALL FORMULATIONS 2009 128 complet ed [facility] ZOSTER LIVE 2008 121 complet ed [employer] Lot# Exp [facility] PNEUMOCOCCAL, UNSPECIFIED FORMULATION 2008 109 complet ed [employer], [id number] [facility] INFLUENZA, UNSPECIFIED FORMULATION 2008 88 complet ed [facility] INFLUENZA, UNSPECIFIED FORMULATION 2007 88 complet ed [facility] INFLUENZA (HISTORICAL) 2006 88 complet ed [facility] TD(ADULT) UNSPECIFIED FORMULATION 2006 139 complet ed [facility] INFLUENZA (HISTORICAL) 2005 88 complet ed [facility] INFLUENZA, SEASONAL, INJECTABLE 2004 141 complet ed [facility] influenza virus vaccine, whole virus 1 2002 Unknown, Provider [id number] [employer] complet ed influenza virus vaccine, whole virus DoD tetanus and diphtheria toxoids, adsorbed, preservative free, for adult use (2 Lf of tetanus toxoid and 2 Lf of diphtheria toxoid) 2 2002 Unknown, Provider 09 () complet ed tetanus and diphtheri a toxoids, adsorbed, preservat brannon free, for adult use (2 Lf of tetanus toxoid and 2 Lf of diphtheri a toxoid) DoD TD(ADULT) UNSPECIFIED FORMULATION 2002 139 complet ed [facility] hepatitis B vaccine, adult dosage 3 1996 Unknown, Provider 43 () complet ed hepatitis B vaccine, adult dosage DoD hepatitis A vaccine, adult dosage 2 1996 Unknown, Provider 52 () complet ed hepatitis A vaccine, adult dosage DoD hepatitis B vaccine, adult dosage 2 1995 Unknown, Provider 43 () complet ed hepatitis B vaccine, adult dosage DoD tetanus and diphtheria toxoids, adsorbed, preservative free, for adult use (2 Lf of tetanus toxoid and 2 Lf of diphtheria toxoid) 1 1995 Unknown, Provider 09 () complet ed tetanus and diphtheri a toxoids, adsorbed, preservat brannon free, for adult use (2 Lf of tetanus toxoid and 2 Lf of diphtheri a toxoid) DoD hepatitis B vaccine, adult dosage 1 1995 Unknown, Provider 43 () complet ed hepatitis B vaccine, adult dosage DoD hepatitis A vaccine, adult dosage 1 1995 Unknown, Provider 52 () complet ed hepatitis A vaccine, adult dosage DoD trivalent poliovirus vaccine, live, oral 1 1973 Unknown, Provider 02 () complet ed trivalent polioviru s vaccine, live, oral [facility] Results Combined list of recent chemistry, hematology and other laboratory results from Department of Defense and Veterans Affairs, ranging from 15 months to all on record, depending upon the facility. Order Name Results Value Reference Range Date Interpretation Specimen Comments Source CBC & DIFF LEUKOCYTES [#/VOLUME] IN BLOOD BY AUTOMATED COUNT 5.08 4.0 - 11.0 08/11 Specimen Type: BLOOD Comment: Automated Differentia l Performed Ordering Provider: ATA GARCIA Report Released Date/Time: May 19, 2023 09:15 AM Reporting Lab: [facility] [address] Performing Lab: [facility] [address] [facility] CBC & DIFF ERYTHROCYTE S [#/VOLUME] IN BLOOD BY AUTOMATED COUNT 4.26 4.6 - 6.2 08/11 L Specimen Type: BLOOD Comment: Automated Differentia l Performed Ordering Provider: ATA GARCIA Report Released Date/Time: May 19, 2023 09:15 AM Reporting Lab: [facility] [address] Performing Lab: [facility] [address] [place] [facility] CBC & DIFF HEMOGLOBIN [MASS/VOLUM E] IN BLOOD 14.3 13.5 - 17.9 08/11 Specimen Type: BLOOD Comment: Automated Differentia l Performed Ordering Provider: ATA AGRCIA Report Released Date/Time: May 19, 2023 09:15 AM Reporting Lab: [facility] [address] Performing Lab: [facility] [address] [place] [facility] CBC & DIFF HEMATOCRIT [VOLUME FRACTION] OF BLOOD BY AUTOMATED COUNT 41.9 41 - 54 08/11 Specimen Type: BLOOD Comment: Automated Differentia l Performed Ordering Provider: ATA GARCIA Report Released Date/Time: May 19, 2023 09:15 AM Reporting Lab: [facility] [phone] Performing Lab: [facility] [address] [place] [facility] CBC & DIFF MCV [ENTITIC VOLUME] BY AUTOMATED COUNT 98.4 80 - 100 08/11 Specimen Type: BLOOD Comment: Automated Differentia l Performed Ordering Provider: ATA GARCIA Report Released Date/Time: May 19, 2023 09:15 AM Reporting Lab: [facility] [address] Performing Lab: [facility] [address] [place] [facility] CBC & DIFF MCH [ENTITIC MASS] BY AUTOMATED COUNT 33.6 27 - 33 08/11 H Specimen Type: BLOOD Comment: Automated Differentia l Performed Ordering Provider: ATA GARCIA Report Released Date/Time: May 19, 2023 09:15 AM Reporting Lab: [facility] [address] Performing Lab: [facility] [address] [place] [facility] CBC & DIFF MCHC [MASS/VOLUM E] BY AUTOMATED COUNT 34.1 32.0 - 37.5 08/11 Specimen Type: BLOOD Comment: Automated Differentia l Performed Ordering Provider: ATA GARCIA Report Released Date/Time: May 19, 2023 09:15 AM Reporting Lab: [facility] [address] Performing Lab: [facility] [address] [place] [facility] CBC & DIFF PLATELETS [#/VOLUME] IN BLOOD BY AUTOMATED COUNT 198 150 - 400 08/11 Specimen Type: BLOOD Comment: Automated Differentia l Performed Ordering Provider: ATA GARCIA Report Released Date/Time: May 19, 2023 09:15 AM Reporting Lab: [facility] [address] Performing Lab: [facility] [address] [place] [facility] CBC & DIFF PLATELET MEAN VOLUME [ENTITIC VOLUME] IN BLOOD BY AUTOMATED COUNT 9.6 7.4 - 10.4 08/11 Specimen Type: BLOOD Comment: Automated Differentia l Performed Ordering Provider: ATA GARCIA Report Released Date/Time: May 19, 2023 09:15 AM Reporting Lab: [facility] [address] Performing Lab: [facility] [address] [place] [facility] CBC & DIFF NEUTROPHILS /100 LEUKOCYTES IN BLOOD BY MANUAL COUNT 57.3 40.0 - 80.0 08/11 Specimen Type: BLOOD Comment: Automated Differentia l Performed Ordering Provider: ATA GARCIA Report Released Date/Time: May 19, 2023 09:15 AM Reporting Lab: [facility] [address] Performing Lab: [facility] [address] [place] [facility] CBC & DIFF LYMPHOCYTES /100 LEUKOCYTES IN BLOOD BY MANUAL COUNT 22.8 15.0 - 45.0 08/11 Specimen Type: BLOOD Comment: Automated Differentia l Performed Ordering Provider: ATA GARCIA Report Released Date/Time: May 19, 2023 09:15 AM Reporting Lab: [facility] [address] Performing Lab: [facility] [address] [place] [facility] CBC & DIFF MONOCYTES/1 00 LEUKOCYTES IN BLOOD BY AUTOMATED COUNT 14.8 2.0 - 12.0 08/11 H Specimen Type: BLOOD Comment: Automated Differentia l Performed Ordering Provider: ATA GARCIA Report Released Date/Time: May 19, 2023 09:15 AM Reporting Lab: [facility] [address] Performing Lab: [facility] [address] [place] [facility] CBC & DIFF EOSINOPHILS /100 LEUKOCYTES IN BLOOD BY AUTOMATED COUNT 4.7 0.0 - 6.0 08/11 Specimen Type: BLOOD Comment: Automated Differentia l Performed Ordering Provider: ATA GARCIA Report Released Date/Time: May 19, 2023 09:15 AM Reporting Lab: [facility] [address] Performing Lab: [facility] [address] [place] [facility] CBC & DIFF BASOPHILS/1 00 LEUKOCYTES IN BLOOD BY MANUAL COUNT 0.4 0.0 - 2.0 08/11 Specimen Type: BLOOD Comment: Automated Differentia l Performed Ordering Provider: ATA GARCIA Report Released Date/Time: May 19, 2023 09:15 AM Reporting Lab: [facility] [address] Performing Lab: [facility] [address] [place] [facility] CBC & DIFF ERYTHROCYTE DISTRIBUTIO N WIDTH [RATIO] BY AUTOMATED COUNT 12.6 11.5 - 14.5 08/11 Specimen Type: BLOOD Comment: Automated Differentia l Performed Ordering Provider: ATA GARCIA Report Released Date/Time: May 19, 2023 09:15 AM Reporting Lab: [facility] [address] Performing Lab: [facility] [address] [place] [facility] CBC & DIFF LYMPHOCYTES [#/VOLUME] IN BLOOD BY AUTOMATED COUNT 1.16 1.0 - 4.0 08/11 Specimen Type: BLOOD Comment: Automated Differentia l Performed Ordering Provider: ATA GARCIA Report Released Date/Time: May 19, 2023 09:15 AM Reporting Lab: [facility] [address] Performing Lab: [facility] [address] [place] [facility] CBC & DIFF MONOCYTES [#/VOLUME] IN BLOOD BY AUTOMATED COUNT 0.75 0.1 - 1.0 08/11 Specimen Type: BLOOD Comment: Automated Differentia l Performed Ordering Provider: ATA GARCIA Report Released Date/Time: May 19, 2023 09:15 AM Reporting Lab: [facility] [address] Performing Lab: [facility] [address] [place] [facility] CBC & DIFF NEUTROPHILS [#/VOLUME] IN BLOOD BY AUTOMATED COUNT 2.91 2.0 - 7.7 08/11 Specimen Type: BLOOD Comment: Automated Differentia l Performed Ordering Provider: ATA GARCIA Report Released Date/Time: May 19, 2023 09:15 AM Reporting Lab: [facility] [address] Performing Lab: [facility] [address] [place] [facility] CBC & DIFF EOSINOPHILS [#/VOLUME] IN BLOOD BY AUTOMATED COUNT 0.24 0 - 0.5 08/11 Specimen Type: BLOOD Comment: Automated Differentia l Performed Ordering Provider: ATA GARCIA Report Released Date/Time: May 19, 2023 09:15 AM Reporting Lab: [facility] [address] Performing Lab: [facility] [address] [place] [facility] CBC & DIFF BASOPHILS [#/VOLUME] IN BLOOD BY AUTOMATED COUNT 0.02 0 - 0.2 08/11 Specimen Type: BLOOD Comment: Automated Differentia l Performed Ordering Provider: ATA GARCIA Report Released Date/Time: May 19, 2023 09:15 AM Reporting Lab: [facility] [address] Performing Lab: [facility] [address] [place] [facility] CBC & DIFF IG(META,MYE LO,PRO) 0.0 08/11 Specimen Type: BLOOD Comment: Automated Differentia l Performed Ordering Provider: ATA GARCIA Report Released Date/Time: May 19, 2023 09:15 AM Reporting Lab: [facility] [address] Performing Lab: [facility] [address] [place] [facility] CBC & DIFF IMMATURE GRANULOCYTE S [PRESENCE] IN BLOOD BY AUTOMATED COUNT 0.00 0 - 0.1 08/11 Specimen Type: BLOOD Comment: Automated Differentia l Performed Ordering Provider: ATA GARCIA Report Released Date/Time: May 19, 2023 09:15 AM Reporting Lab: [facility] [address] Performing Lab: [facility] [address] [place] [facility] COMPREHEN SIVE METABOLIC PANEL+MG CREATININE [MASS/VOLUM E] IN SERUM OR PLASMA 0.9 0.7 - 1.2 08/11 Specimen Type: PLASMA No comment entered. Ordering Provider: ATA GARCIA Report Released Date/Time: May 19, 2023 09:15 AM Reporting Lab: [facility] [address] Performing Lab: [facility] [address] [place] [facility] COMPREHEN SIVE METABOLIC PANEL+MG UREA NITROGEN [MASS/VOLUM E] IN SERUM OR PLASMA 13 8 - 26 08/11 Specimen Type: PLASMA No comment entered. Ordering Provider: ATA GARCIA Report Released Date/Time: May 19, 2023 09:15 AM Reporting Lab: [facility] [address] Performing Lab: [facility] [address] [place] [facility] COMPREHEN SIVE METABOLIC PANEL+MG GLUCOSE [MASS/VOLUM E] IN SERUM OR PLASMA 97 70 - 100 08/11 Specimen Type: PLASMA No comment entered. Ordering Provider: ATA GARCIA Report Released Date/Time: May 19, 2023 09:15 AM Reporting Lab: [facility] [address] Performing Lab: [facility] [address] [place] [facility] COMPREHEN SIVE METABOLIC PANEL+MG SODIUM [MOLES/VOLU ME] IN SERUM OR PLASMA 140 136 - 145 08/11 Specimen Type: PLASMA No comment entered. Ordering Provider: ATA GARCIA Report Released Date/Time: May 19, 2023 09:15 AM Reporting Lab: [facility] [address] Performing Lab: [facility] [address] [place] [facility] COMPREHEN SIVE METABOLIC PANEL+MG POTASSIUM [MOLES/VOLU ME] IN SERUM OR PLASMA 3.9 3.5 - 5.1 08/11 Specimen Type: PLASMA No comment entered. Ordering Provider: ATA GARCIA Report Released Date/Time: May 19, 2023 09:15 AM Reporting Lab: [facility] [address] Performing Lab: [facility] [address] [place] [facility] COMPREHEN SIVE METABOLIC PANEL+MG CHLORIDE [MOLES/VOLU ME] IN SERUM OR PLASMA 108 98 - 107 08/11 H Specimen Type: PLASMA No comment entered. Ordering Provider: ATA GARCIA Report Released Date/Time: May 19, 2023 09:15 AM Reporting Lab: [facility] [address] Performing Lab: [facility] [address] [place] [facility] COMPREHEN SIVE METABOLIC PANEL+MG CARBON DIOXIDE, TOTAL [MOLES/VOLU ME] IN SERUM OR PLASMA 26 22 - 29 08/11 Specimen Type: PLASMA No comment entered. Ordering Provider: ATA GARCIA Report Released Date/Time: May 19, 2023 09:15 AM Reporting Lab: [facility] [address] Performing Lab: [facility] [address] [place] [facility] COMPREHEN SIVE METABOLIC PANEL+MG CALCIUM [MASS/VOLUM E] IN SERUM OR PLASMA 8.8 8.4 - 10.2 08/11 Specimen Type: PLASMA No comment entered. Ordering Provider: ATA GARCIA Report Released Date/Time: May 19, 2023 09:15 AM Reporting Lab: [facility] [address] Performing Lab: [facility] [address] [place] [facility] COMPREHEN SIVE METABOLIC PANEL+MG PROTEIN [MASS/VOLUM E] IN SERUM OR PLASMA 6.5 6.0 - 8.3 08/11 Specimen Type: PLASMA No comment entered. Ordering Provider: ATA GARCIA Report Released Date/Time: May 19, 2023 09:15 AM Reporting Lab: [facility] [address] Performing Lab: [facility] [address] [place] [facility] COMPREHEN SIVE METABOLIC PANEL+MG ALBUMIN [MASS/VOLUM E] IN SERUM OR PLASMA 3.8 3.5 - 5.2 08/11 Specimen Type: PLASMA No comment entered. Ordering Provider: ATA GARCIA Report Released Date/Time: May 19, 2023 09:15 AM Reporting Lab: [facility] [address] Performing Lab: [facility] [address] [place] [facility] COMPREHEN SIVE METABOLIC PANEL+MG BILIRUBIN.T OTAL [MASS/VOLUM E] IN SERUM OR PLASMA 0.7 0.2 - 1.2 08/11 Specimen Type: PLASMA No comment entered. Ordering Provider: ATA GARCIA Report Released Date/Time: May 19, 2023 09:15 AM Reporting Lab: [facility] [address] Performing Lab: [facility] [address] [place] [facility] COMPREHEN SIVE METABOLIC PANEL+MG MAGNESIUM [MASS/VOLUM E] IN SERUM OR PLASMA 1.9 1.6 - 2.6 08/11 Specimen Type: PLASMA No comment entered. Ordering Provider: ATA GARCIA Report Released Date/Time: May 19, 2023 09:15 AM Reporting Lab: [facility] [address] Performing Lab: [facility] [address] [place] [facility] COMPREHEN SIVE METABOLIC PANEL+MG ANION GAP IN SERUM OR PLASMA 6 5 - 15 08/11 Specimen Type: PLASMA No comment entered. Ordering Provider: ATA GARCIA Report Released Date/Time: May 19, 2023 09:15 AM Reporting Lab: [facility] [address] Performing Lab: [facility] [address] [place] [facility] COMPREHEN SIVE METABOLIC PANEL+MG ALKALINE PHOSPHATASE [ENZYMATIC ACTIVITY/VO LUME] IN SERUM OR PLASMA 74 40 - 150 08/11 Specimen Type: PLASMA No comment entered. Ordering Provider: ATA GARCIA Report Released Date/Time: May 19, 2023 09:15 AM Reporting Lab: [facility] [address] Performing Lab: [facility] [address] [place] [facility] COMPREHEN SIVE METABOLIC PANEL+MG ALANINE AMINOTRANSF ERASE [ENZYMATIC ACTIVITY/VO LUME] IN SERUM OR PLASMA 18 <55 - 55 08/11 Specimen Type: PLASMA No comment entered. Ordering Provider: ATA GARCIA Report Released Date/Time: May 19, 2023 09:15 AM Reporting Lab: [facility] [address] Performing Lab: [facility] [address] [place] [facility] COMPREHEN SIVE METABOLIC PANEL+MG ASPARTATE AMINOTRANSF ERASE [ENZYMATIC ACTIVITY/VO LUME] IN SERUM OR PLASMA 23 <34 - 34 08/11 Specimen Type: PLASMA No comment entered. Ordering Provider: ATA GARCIA Report Released Date/Time: May 19, 2023 09:15 AM Reporting Lab: [facility] [address] Performing Lab: [facility] [address] [place] [facility] COMPREHEN SIVE METABOLIC PANEL+MG GLOMERULAR FILTRATION RATE/1.73 SQ M.PREDICTED [VOLUME RATE/AREA] IN SERUM, PLASMA OR BLOOD BY CREATININE- BASED FORMULA (CKD-EPI 2020) 87 60 08/11 Specimen Type: PLASMA No comment entered. Ordering Provider: ATA GARCIA Report Released Date/Time: May 19, 2023 09:15 AM Reporting Lab: [facility] [address] Performing Lab: [facility] [address] [place] [facility] POC INR(COAGU CHEK) INR IN BLOOD BY COAGULATION ASSAY 4.3 06/16 H Specimen Type: BLOOD No comment entered. Ordering Provider: KAMALA ROLLE Report Released Date/Time: Jun 16, 2023 08:46 AM Reporting Lab: [facility] [address] Performing Lab: [facility] [address] [place] [facility] CBC & DIFF LEUKOCYTES [#/VOLUME] IN BLOOD BY AUTOMATED COUNT 4.17 4.0 - 11.0 05/19 Specimen Type: BLOOD Comment: Automated Differentia l Performed Ordering Provider: ATA GARCIA Report Released Date/Time: Feb 24, 2023 09:32 AM Reporting Lab: [facility] [address] Performing Lab: [facility] [address] [place] [facility] CBC & DIFF ERYTHROCYTE S [#/VOLUME] IN BLOOD BY AUTOMATED COUNT 4.20 4.6 - 6.2 05/19 L Specimen Type: BLOOD Comment: Automated Differentia l Performed Ordering Provider: ATA GARCIA Report Released Date/Time: Feb 24, 2023 09:32 AM Reporting Lab: [facility] [address] Performing Lab: [facility] [address] [place] [facility] CBC & DIFF HEMOGLOBIN [MASS/VOLUM E] IN BLOOD 14.2 13.5 - 17.9 05/19 Specimen Type: BLOOD Comment: Automated Differentia l Performed Ordering Provider: ATA GARCIA Report Released Date/Time: Feb 24, 2023 09:32 AM Reporting Lab: [facility] [address] Performing Lab: [facility] [address] [place] [facility] CBC & DIFF HEMATOCRIT [VOLUME FRACTION] OF BLOOD BY AUTOMATED COUNT 41.2 41 - 54 05/19 Specimen Type: BLOOD Comment: Automated Differentia l Performed Ordering Provider: ATA GARCIA Report Released Date/Time: Feb 24, 2023 09:32 AM Reporting Lab: [facility] [address] Performing Lab: [facility] [address] [place] [facility] CBC & DIFF MCV [ENTITIC VOLUME] BY AUTOMATED COUNT 98.1 80 - 100 05/19 Specimen Type: BLOOD Comment: Automated Differentia l Performed Ordering Provider: ATA GARCIA Report Released Date/Time: Feb 24, 2023 09:32 AM Reporting Lab: [facility] [address] Performing Lab: [facility] [address] [place] [facility] CBC & DIFF MCH [ENTITIC MASS] BY AUTOMATED COUNT 33.8 27 - 33 05/19 H Specimen Type: BLOOD Comment: Automated Differentia l Performed Ordering Provider: ATA GARCIA Report Released Date/Time: Feb 24, 2023 09:32 AM Reporting Lab: [facility] [address] Performing Lab: [facility] [address] [place] [facility] CBC & DIFF MCHC [MASS/VOLUM E] BY AUTOMATED COUNT 34.5 32.0 - 37.5 05/19 Specimen Type: BLOOD Comment: Automated Differentia l Performed Ordering Provider: ATA GARCIA Report Released Date/Time: Feb 24, 2023 09:32 AM Reporting Lab: [facility] [address] Performing Lab: [facility] [address] [place] [facility] CBC & DIFF PLATELETS [#/VOLUME] IN BLOOD BY AUTOMATED COUNT 223 150 - 400 05/19 Specimen Type: BLOOD Comment: Automated Differentia l Performed Ordering Provider: ATA GARCIA Report Released Date/Time: Feb 24, 2023 09:32 AM Reporting Lab: [facility] [address] Performing Lab: [facility] [address] [place] [facility] CBC & DIFF PLATELET MEAN VOLUME [ENTITIC VOLUME] IN BLOOD BY AUTOMATED COUNT 9.9 7.4 - 10.4 05/19 Specimen Type: BLOOD Comment: Automated Differentia l Performed Ordering Provider: ATA GARCIA Report Released Date/Time: Feb 24, 2023 09:32 AM Reporting Lab: [facility] [address] Performing Lab: [facility] [address] [place] [facility] CBC & DIFF NEUTROPHILS /100 LEUKOCYTES IN BLOOD BY MANUAL COUNT 51.6 40.0 - 80.0 05/19 Specimen Type: BLOOD Comment: Automated Differentia l Performed Ordering Provider: ATA GARCIA Report Released Date/Time: Feb 24, 2023 09:32 AM Reporting Lab: [facility] [address] Performing Lab: [facility] [address] [place] [facility] CBC & DIFF LYMPHOCYTES /100 LEUKOCYTES IN BLOOD BY MANUAL COUNT 25.2 15.0 - 45.0 05/19 Specimen Type: BLOOD Comment: Automated Differentia l Performed Ordering Provider: ATA GARCIA Report Released Date/Time: Feb 24, 2023 09:32 AM Reporting Lab: [facility] [address] Performing Lab: [facility] [address] [place] [facility] CBC & DIFF MONOCYTES/1 00 LEUKOCYTES IN BLOOD BY AUTOMATED COUNT 15.3 2.0 - 12.0 05/19 H Specimen Type: BLOOD Comment: Automated Differentia l Performed Ordering Provider: ATA GARCIA Report Released Date/Time: Feb 24, 2023 09:32 AM Reporting Lab: [facility] [address] Performing Lab: [facility] [address] [place] [facility] CBC & DIFF EOSINOPHILS /100 LEUKOCYTES IN BLOOD BY AUTOMATED COUNT 7.2 0.0 - 6.0 05/19 H Specimen Type: BLOOD Comment: Automated Differentia l Performed Ordering Provider: ATA GARCIA Report Released Date/Time: Feb 24, 2023 09:32 AM Reporting Lab: [facility] [address] Performing Lab: [facility] [address] [place] [facility] CBC & DIFF BASOPHILS/1 00 LEUKOCYTES IN BLOOD BY MANUAL COUNT 0.5 0.0 - 2.0 05/19 Specimen Type: BLOOD Comment: Automated Differentia l Performed Ordering Provider: ATA GARCIA Report Released Date/Time: Feb 24, 2023 09:32 AM Reporting Lab: [facility] [address] Performing Lab: [facility] [address] [place] [facility] CBC & DIFF ERYTHROCYTE DISTRIBUTIO N WIDTH [RATIO] BY AUTOMATED COUNT 12.7 11.5 - 14.5 05/19 Specimen Type: BLOOD Comment: Automated Differentia l Performed Ordering Provider: ATA GARCIA Report Released Date/Time: Feb 24, 2023 09:32 AM Reporting Lab: [facility] [address] Performing Lab: [facility] [address] [place] [facility] CBC & DIFF LYMPHOCYTES [#/VOLUME] IN BLOOD BY AUTOMATED COUNT 1.05 1.0 - 4.0 05/19 Specimen Type: BLOOD Comment: Automated Differentia l Performed Ordering Provider: ATA GARCIA Report Released Date/Time: Feb 24, 2023 09:32 AM Reporting Lab: [facility] [address] Performing Lab: [facility] [address] [place] [facility] CBC & DIFF MONOCYTES [#/VOLUME] IN BLOOD BY AUTOMATED COUNT 0.64 0.1 - 1.0 05/19 Specimen Type: BLOOD Comment: Automated Differentia l Performed Ordering Provider: ATA GARCIA Report Released Date/Time: Feb 24, 2023 09:32 AM Reporting Lab: [facility] [address] Performing Lab: [facility] [address] [place] [facility] CBC & DIFF NEUTROPHILS [#/VOLUME] IN BLOOD BY AUTOMATED COUNT 2.15 2.0 - 7.7 05/19 Specimen Type: BLOOD Comment: Automated Differentia l Performed Ordering Provider: ATA GARCIA Report Released Date/Time: Feb 24, 2023 09:32 AM Reporting Lab: [facility] [address] Performing Lab: [facility] [address] [place] [facility] CBC & DIFF EOSINOPHILS [#/VOLUME] IN BLOOD BY AUTOMATED COUNT 0.30 0 - 0.5 05/19 Specimen Type: BLOOD Comment: Automated Differentia l Performed Ordering Provider: ATA GARCIA Report Released Date/Time: Feb 24, 2023 09:32 AM Reporting Lab: [facility] [address] Performing Lab: [facility] [address] [place] [facility] CBC & DIFF BASOPHILS [#/VOLUME] IN BLOOD BY AUTOMATED COUNT 0.02 0 - 0.2 05/19 Specimen Type: BLOOD Comment: Automated Differentia l Performed Ordering Provider: ATA GARCIA Report Released Date/Time: Feb 24, 2023 09:32 AM Reporting Lab: [facility] [address] Performing Lab: [facility] [address] [place] [facility] CBC & DIFF IG(META,MYE LO,PRO) 0.2 05/19 Specimen Type: BLOOD Comment: Automated Differentia l Performed Ordering Provider: ATA GARCIA Report Released Date/Time: Feb 24, 2023 09:32 AM Reporting Lab: [facility] [address] Performing Lab: [facility] [address] [place] [facility] CBC & DIFF IMMATURE GRANULOCYTE S [PRESENCE] IN BLOOD BY AUTOMATED COUNT 0.01 0 - 0.1 05/19 Specimen Type: BLOOD Comment: Automated Differentia l Performed Ordering Provider: ATA GARCIA Report Released Date/Time: Feb 24, 2023 09:32 AM Reporting Lab: [facility] [address] Performing Lab: [facility] [address] [place] [facility] COMPREHEN SIVE METABOLIC PANEL+MG CREATININE [MASS/VOLUM E] IN SERUM OR PLASMA 0.9 0.7 - 1.2 05/19 Specimen Type: PLASMA Comment: Automated Differentia l Performed Ordering Provider: ATA GARCIA Report Released Date/Time: Feb 24, 2023 09:32 AM Reporting Lab: [facility] [address] Performing Lab: [facility] [address] [place] [facility] COMPREHEN SIVE METABOLIC PANEL+MG UREA NITROGEN [MASS/VOLUM E] IN SERUM OR PLASMA 15 8 - 26 05/19 Specimen Type: PLASMA Comment: Automated Differentia l Performed Ordering Provider: ATA GARCIA Report Released Date/Time: Feb 24, 2023 09:32 AM Reporting Lab: [facility] [address] Performing Lab: [facility] [address] [place] [facility] COMPREHEN SIVE METABOLIC PANEL+MG GLUCOSE [MASS/VOLUM E] IN SERUM OR PLASMA 115 70 - 100 05/19 H Specimen Type: PLASMA Comment: Automated Differentia l Performed Ordering Provider: ATA GARCIA Report Released Date/Time: Feb 24, 2023 09:32 AM Reporting Lab: [facility] [address] Performing Lab: [facility] [address] [place] [facility] COMPREHEN SIVE METABOLIC PANEL+MG SODIUM [MOLES/VOLU ME] IN SERUM OR PLASMA 139 136 - 145 05/19 Specimen Type: PLASMA Comment: Automated Differentia l Performed Ordering Provider: ATA GARCIA Report Released Date/Time: Feb 24, 2023 09:32 AM Reporting Lab: [facility] [address] Performing Lab: [facility] [address] [place] [facility] COMPREHEN SIVE METABOLIC PANEL+MG POTASSIUM [MOLES/VOLU ME] IN SERUM OR PLASMA 3.9 3.5 - 5.1 05/19 Specimen Type: PLASMA Comment: Automated Differentia l Performed Ordering Provider: ATA GARCIA Report Released Date/Time: Feb 24, 2023 09:32 AM Reporting Lab: [facility] [address] Performing Lab: [facility] [address] [place] [facility] COMPREHEN SIVE METABOLIC PANEL+MG CHLORIDE [MOLES/VOLU ME] IN SERUM OR PLASMA 109 98 - 107 05/19 H Specimen Type: PLASMA Comment: Automated Differentia l Performed Ordering Provider: ATA GARCIA Report Released Date/Time: Feb 24, 2023 09:32 AM Reporting Lab: [facility] [address] Performing Lab: [facility] [address] [place] [facility] COMPREHEN SIVE METABOLIC PANEL+MG CARBON DIOXIDE, TOTAL [MOLES/VOLU ME] IN SERUM OR PLASMA 24 22 - 29 05/19 Specimen Type: PLASMA Comment: Automated Differentia l Performed Ordering Provider: ATA GARCIA Report Released Date/Time: Feb 24, 2023 09:32 AM Reporting Lab: [facility] [address] Performing Lab: [facility] [address] [place] [facility] COMPREHEN SIVE METABOLIC PANEL+MG CALCIUM [MASS/VOLUM E] IN SERUM OR PLASMA 8.9 8.4 - 10.2 05/19 Specimen Type: PLASMA Comment: Automated Differentia l Performed Ordering Provider: ATA GARCIA Report Released Date/Time: Feb 24, 2023 09:32 AM Reporting Lab: [facility] [address] Performing Lab: [facility] [address] [place] [facility] COMPREHEN SIVE METABOLIC PANEL+MG PROTEIN [MASS/VOLUM E] IN SERUM OR PLASMA 6.7 6.0 - 8.3 05/19 Specimen Type: PLASMA Comment: Automated Differentia l Performed Ordering Provider: ATA GARCIA Report Released Date/Time: Feb 24, 2023 09:32 AM Reporting Lab: [facility] [address] Performing Lab: [facility] [address] [place] [facility] COMPREHEN SIVE METABOLIC PANEL+MG ALBUMIN [MASS/VOLUM E] IN SERUM OR PLASMA 3.8 3.5 - 5.2 05/19 Specimen Type: PLASMA Comment: Automated Differentia l Performed Ordering Provider: ATA GARCIA Report Released Date/Time: Feb 24, 2023 09:32 AM Reporting Lab: [facility] [address] Performing Lab: [facility] [address] [place] [facility] COMPREHEN SIVE METABOLIC PANEL+MG BILIRUBIN.T OTAL [MASS/VOLUM E] IN SERUM OR PLASMA 0.8 0.2 - 1.2 05/19 Specimen Type: PLASMA Comment: Automated Differentia l Performed Ordering Provider: ATA GARCIA Report Released Date/Time: Feb 24, 2023 09:32 AM Reporting Lab: [facility] [address] Performing Lab: [facility] [address] [place] [facility] COMPREHEN SIVE METABOLIC PANEL+MG MAGNESIUM [MASS/VOLUM E] IN SERUM OR PLASMA 2.0 1.6 - 2.6 05/19 Specimen Type: PLASMA Comment: Automated Differentia l Performed Ordering Provider: ATA GARCIA Report Released Date/Time: Feb 24, 2023 09:32 AM Reporting Lab: [facility] [address] Performing Lab: [facility] [address] [place] [facility] COMPREHEN SIVE METABOLIC PANEL+MG ANION GAP IN SERUM OR PLASMA 6 5 - 15 05/19 Specimen Type: PLASMA Comment: Automated Differentia l Performed Ordering Provider: ATA GARCIA Report Released Date/Time: Feb 24, 2023 09:32 AM Reporting Lab: [facility] [address] Performing Lab: [facility] [address] [place] [facility] COMPREHEN SIVE METABOLIC PANEL+MG ALKALINE PHOSPHATASE [ENZYMATIC ACTIVITY/VO LUME] IN SERUM OR PLASMA 80 40 - 150 05/19 Specimen Type: PLASMA Comment: Automated Differentia l Performed Ordering Provider: ATA GARCIA Report Released Date/Time: Feb 24, 2023 09:32 AM Reporting Lab: [facility] [address] Performing Lab: [facility] [address] [place] [facility] COMPREHEN SIVE METABOLIC PANEL+MG ALANINE AMINOTRANSF ERASE [ENZYMATIC ACTIVITY/VO LUME] IN SERUM OR PLASMA 18 <55 - 55 05/19 Specimen Type: PLASMA Comment: Automated Differentia l Performed Ordering Provider: ATA GARCIA Report Released Date/Time: Feb 24, 2023 09:32 AM Reporting Lab: [facility] [address] Performing Lab: [facility] [address] [place] [facility] COMPREHEN SIVE METABOLIC PANEL+MG ASPARTATE AMINOTRANSF ERASE [ENZYMATIC ACTIVITY/VO LUME] IN SERUM OR PLASMA 24 <34 - 34 05/19 Specimen Type: PLASMA Comment: Automated Differentia l Performed Ordering Provider: ATA GARCIA Report Released Date/Time: Feb 24, 2023 09:32 AM Reporting Lab: [facility] [address] Performing Lab: [facility] [address] [place] [facility] COMPREHEN SIVE METABOLIC PANEL+MG GLOMERULAR FILTRATION RATE/1.73 SQ M.PREDICTED [VOLUME RATE/AREA] IN SERUM, PLASMA OR BLOOD BY CREATININE- BASED FORMULA (CKD-EPI 2020) 87 60 05/19 Specimen Type: PLASMA Comment: Automated Differentia l Performed Ordering Provider: ATA GARCIA Report Released Date/Time: Feb 24, 2023 09:32 AM Reporting Lab: [facility] [address] Performing Lab: [facility] [address] [place] [facility] [employer] [facility] HEMOGLOBI N A1C HEMOGLOBIN A1C/HEMOGLO BIN.TOTAL IN BLOOD 5.9 4.0 - 6.0 05/19 Specimen Type: BLOOD Comment: Values obtained from A1C measurement s can vary. For typical A1C assays, a reported value of 7.0 could actually be between 6.7 and 7.3 if measured by a reference method. A reported value of 9.0 could actually be between 8.7 and 9.3. Ref: http://[email or web address] ngsp.org/[place] Pdata.asp Ordering Provider: KAMALA ROLLE Report Released Date/Time: May 05, 2023 03:50 PM Reporting Lab: [facility] [address] Performing Lab: [facility] [address] [facility] PSA PROSTATE SPECIFIC AG [MASS/VOLUM E] IN SERUM OR PLASMA 0.01 <4.00 - 4.00 05/19 Specimen Type: SERUM No comment entered. Ordering Provider: KAMALA ROLLE Report Released Date/Time: May 05, 2023 03:50 PM Reporting Lab: [facility] [address] Performing Lab: [facility] [address] [place] [employer] [facility] [facility] TSH W/REFLEX TO FREE T4 THYROTROPIN [UNITS/VOLU ME] IN SERUM OR PLASMA 1.15 0.35 - 4.94 05/19 Specimen Type: PLASMA Comment: Automated Differentia l Performed Ordering Provider: KAMALA ROLLE Report Released Date/Time: May 05, 2023 04:25 PM Reporting Lab: [facility] [address] Performing Lab: [facility] [address] [facility] PT/INR(AN TICOAG) INR IN PLATELET POOR PLASMA BY COAGULATION ASSAY 2.6 0.8 - 1.1 04/21 H Specimen Type: PLASMA No comment entered. Ordering Provider: AVIANSH CHANDLER Report Released Date/Time: Mar 20, 2023 11:46 AM Reporting Lab: [facility] [id number] Performing Lab: [facility] [id number] [place] [facility] PT/INR(AN TICOAG) PROTHROMBIN TIME (PT) 31.6 9.4 - 12.5 04/21 H Specimen Type: PLASMA No comment entered. Ordering Provider: AVINASH CHANDLER Report Released Date/Time: Mar 20, 2023 11:46 AM Reporting Lab: [facility] [phone] Performing Lab: [facility] [phone] [place] [facility] COMPREHEN SIVE METABOLIC PANEL+MG CREATININE [MASS/VOLUM E] IN SERUM OR PLASMA 1.0 0.7 - 1.2 04/21 Specimen Type: PLASMA No comment entered. Ordering Provider: ATA GARCIA Report Released Date/Time: Feb 24, 2023 10:02 AM Reporting Lab: [facility] [address] Performing Lab: [facility] [address] [place] [facility] COMPREHEN SIVE METABOLIC PANEL+MG UREA NITROGEN [MASS/VOLUM E] IN SERUM OR PLASMA 12 8 - 26 04/21 Specimen Type: PLASMA No comment entered. Ordering Provider: ATA GARCIA Report Released Date/Time: Feb 24, 2023 10:02 AM Reporting Lab: [facility] [address] Performing Lab: [facility] [address] [place] [facility] COMPREHEN SIVE METABOLIC PANEL+MG GLUCOSE [MASS/VOLUM E] IN SERUM OR PLASMA 142 70 - 100 04/21 H Specimen Type: PLASMA No comment entered. Ordering Provider: ATA GARCIA Report Released Date/Time: Feb 24, 2023 10:02 AM Reporting Lab: [facility] [address] Performing Lab: [facility] [address] [place] [facility] COMPREHEN SIVE METABOLIC PANEL+MG SODIUM [MOLES/VOLU ME] IN SERUM OR PLASMA 141 136 - 145 04/21 Specimen Type: PLASMA No comment entered. Ordering Provider: ATA GARCIA Report Released Date/Time: Feb 24, 2023 10:02 AM Reporting Lab: [facility] [address] Performing Lab: [facility] [address] [place] [facility] COMPREHEN SIVE METABOLIC PANEL+MG POTASSIUM [MOLES/VOLU ME] IN SERUM OR PLASMA 3.8 3.5 - 5.1 04/21 Specimen Type: PLASMA No comment entered. Ordering Provider: ATA GARCIA Report Released Date/Time: Feb 24, 2023 10:02 AM Reporting Lab: [facility] [address] Performing Lab: [facility] [address] [place] [facility] COMPREHEN SIVE METABOLIC PANEL+MG CHLORIDE [MOLES/VOLU ME] IN SERUM OR PLASMA 107 98 - 107 04/21 Specimen Type: PLASMA No comment entered. Ordering Provider: ATA GARCIA Report Released Date/Time: Feb 24, 2023 10:02 AM Reporting Lab: [facility] [address] Performing Lab: [facility] [address] [place] [facility] COMPREHEN SIVE METABOLIC PANEL+MG CARBON DIOXIDE, TOTAL [MOLES/VOLU ME] IN SERUM OR PLASMA 25 22 - 29 04/21 Specimen Type: PLASMA No comment entered. Ordering Provider: ATA GARCIA Report Released Date/Time: Feb 24, 2023 10:02 AM Reporting Lab: [facility] [address] Performing Lab: [facility] [address] [place] [facility] COMPREHEN SIVE METABOLIC PANEL+MG CALCIUM [MASS/VOLUM E] IN SERUM OR PLASMA 9.0 8.4 - 10.2 04/21 Specimen Type: PLASMA No comment entered. Ordering Provider: ATA GARCIA Report Released Date/Time: Feb 24, 2023 10:02 AM Reporting Lab: [facility] [address] Performing Lab: [facility] [address] [place] [facility] COMPREHEN SIVE METABOLIC PANEL+MG PROTEIN [MASS/VOLUM E] IN SERUM OR PLASMA 6.8 6.0 - 8.3 04/21 Specimen Type: PLASMA No comment entered. Ordering Provider: ATA GARCIA Report Released Date/Time: Feb 24, 2023 10:02 AM Reporting Lab: [facility] [address] Performing Lab: [facility] [address] [place] [facility] COMPREHEN SIVE METABOLIC PANEL+MG ALBUMIN [MASS/VOLUM E] IN SERUM OR PLASMA 3.8 3.5 - 5.2 04/21 Specimen Type: PLASMA No comment entered. Ordering Provider: ATA GARCIA Report Released Date/Time: Feb 24, 2023 10:02 AM Reporting Lab: [facility] [address] Performing Lab: [facility] [address] [place] [facility] COMPREHEN SIVE METABOLIC PANEL+MG BILIRUBIN.T OTAL [MASS/VOLUM E] IN SERUM OR PLASMA 0.8 0.2 - 1.2 04/21 Specimen Type: PLASMA No comment entered. Ordering Provider: ATA GARCIA Report Released Date/Time: Feb 24, 2023 10:02 AM Reporting Lab: [facility] [address] Performing Lab: [facility] [address] [place] [facility] COMPREHEN SIVE METABOLIC PANEL+MG MAGNESIUM [MASS/VOLUM E] IN SERUM OR PLASMA 1.9 1.6 - 2.6 04/21 Specimen Type: PLASMA No comment entered. Ordering Provider: ATA GARCIA Report Released Date/Time: Feb 24, 2023 10:02 AM Reporting Lab: [facility] [address] Performing Lab: [facility] [address] [place] [facility] COMPREHEN SIVE METABOLIC PANEL+MG ANION GAP IN SERUM OR PLASMA 9 5 - 15 04/21 Specimen Type: PLASMA No comment entered. Ordering Provider: ATA GARCIA Report Released Date/Time: Feb 24, 2023 10:02 AM Reporting Lab: [facility] [address] Performing Lab: [facility] [address] [place] [facility] COMPREHEN SIVE METABOLIC PANEL+MG ALKALINE PHOSPHATASE [ENZYMATIC ACTIVITY/VO LUME] IN SERUM OR PLASMA 84 40 - 150 04/21 Specimen Type: PLASMA No comment entered. Ordering Provider: ATA GARCIA Report Released Date/Time: Feb 24, 2023 10:02 AM Reporting Lab: [facility] [address] Performing Lab: [facility] [address] [place] [facility] COMPREHEN SIVE METABOLIC PANEL+MG ALANINE AMINOTRANSF ERASE [ENZYMATIC ACTIVITY/VO LUME] IN SERUM OR PLASMA 15 <55 - 55 04/21 Specimen Type: PLASMA No comment entered. Ordering Provider: ATA GARCIA Report Released Date/Time: Feb 24, 2023 10:02 AM Reporting Lab: [facility] [address] Performing Lab: [facility] [address] [place] [facility] COMPREHEN SIVE METABOLIC PANEL+MG ASPARTATE AMINOTRANSF ERASE [ENZYMATIC ACTIVITY/VO LUME] IN SERUM OR PLASMA 19 <34 - 34 04/21 Specimen Type: PLASMA No comment entered. Ordering Provider: ATA GARCIA Report Released Date/Time: Feb 24, 2023 10:02 AM Reporting Lab: [facility] [address] Performing Lab: [facility] [address] [place] [facility] COMPREHEN SIVE METABOLIC PANEL+MG GLOMERULAR FILTRATION RATE/1.73 SQ M.PREDICTED [VOLUME RATE/AREA] IN SERUM, PLASMA OR BLOOD BY CREATININE- BASED FORMULA (CKD-EPI 2020) 77 60 04/21 Specimen Type: PLASMA No comment entered. Ordering Provider: ATA GARCIA Report Released Date/Time: Feb 24, 2023 10:02 AM Reporting Lab: [facility] [address] Performing Lab: [facility] [address] [facility] Vital Signs Combined list of inpatient and outpatient Vital Signs from Department of Defense and Veterans Affairs, ranging from 12 months to all on record, depending upon the facility. Vital Sign Value Date Comments Source SYSTOLIC BLOOD PRESSURE 121 08/11/2023 09:04:01 [facility] DIASTOLIC BLOOD PRESSURE 80 08/11/2023 09:04:01 [facility] PULSE OXIMETRY 96% 08/11/2023 09:04:01 [facility] WEIGHT 217.9 08/11/2023 09:04:01 [facility] BMI 31kg/m2 08/11/2023 09:04:01 [facility] PAIN 0 08/11/2023 09:04:01 [facility] TEMPERATURE 98.2 08/11/2023 09:04:01 [place] [facility] PULSE 68 08/11/2023 09:04:01 [place] [facility] RESPIRATION 17 08/11/2023 09:04:01 [place] [facility] SYSTOLIC BLOOD PRESSURE 111 05/19/2023 08:56:38 [facility] DIASTOLIC BLOOD PRESSURE 69 05/19/2023 08:56:38 [facility] PULSE OXIMETRY 95% 05/19/2023 08:56:38 [facility] WE[facility] 212.9 05/19/2023 08:56:38 [place] [facility] BMI 30kg/m2 05/19/2023 08:56:38 [place] [facility] PAIN 0 05/19/2023 08:56:38 [place] [facility] TEMPERATURE 98.1 05/19/2023 08:56:38 [place] [facility] PULSE 60 05/19/2023 08:56:38 [facility] [place] [facility] RESPIRATION 16 05/19/2023 08:56:38 [place] [facility] SYSTOLIC BLOOD PRESSURE 152 05/05/2023 16:08:15 [facility] DIASTOLIC BLOOD PRESSURE 78 05/05/2023 16:08:15 [facility] PULSE OXIMETRY 94% 05/05/2023 16:08:15 [place] [facility] WEIGHT 213.1 05/05/2023 16:08:15 [place] [facility] BMI 30kg/m2 05/05/2023 16:08:15 [facility] [facility] PAIN 3 05/05/2023 16:08:15 [facility] HEIGHT 70.6 05/05/2023 16:08:15 [facility] TEMPERATURE 99.1 05/05/2023 16:08:15 [facility] PULSE 73 05/05/2023 16:08:15 [facility] RESPIRATION 16 05/05/2023 16:08:15 [facility] SYSTOLIC BLOOD PRESSURE 111 02/24/2023 09:14:53 [facility] DIASTOLIC BLOOD PRESSURE 73 02/24/2023 09:14:53 [place] [facility] PULSE OXIMETRY 96% 02/24/2023 09:14:53 [facility] [place] WEIGHT 216 02/24/2023 09:14:53 [facility] BMI 30kg/m2 02/24/2023 09:14:53 [facility] PAIN 6 02/24/2023 09:14:53 [facility] TEMPERATURE 99 02/24/2023 09:14:53 [facility] PULSE 61 02/24/2023 09:14:53 [facility] RESPIRATION 16 02/24/2023 09:14:53 [facility] SYSTOLIC BLOOD PRESSURE 121 12/31/2022 15:07:04 [facility] DIASTOLIC BLOOD PRESSURE 80 12/31/2022 15:07:04 [facility] PULSE OXIMETRY 97% 12/31/2022 15:07:04 [facility] WEIGHT 217.8 12/31/2022 15:07:04 [facility] BMI 31kg/m2 12/31/2022 15:07:04 [facility] PAIN 0 12/31/2022 15:07:04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 [facility] Plan of Care List of future care activities from Department of 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 Additional future care activities may be listed in the Assessment and Plan section. Date/Time Care Activity Care Activity Detail Facili ty 10/06/2023 AMBULATORY - NONE AMBULATORY - NONE [facility]
--- OUTSIDE RECORDS SUMMARY | 2023-10-01 09:13 | XMS_ITS | Clinical Summary ---
Author Name Unknown Organization [facility] Address [place] [address], [place] [address] Care Team Providers Care Mold Filling Operator Name Role Phone Rosalinda Yancey MD Primary Care Provider [phone] Allergies Active Allergy Reactions Criticality Noted Date Comments Naproxen GI Upset 10/04/2016 Soap Rash 10/04/2016 Dial soap Medications Medication Sig Dispensed Refills Start Date End Date Status sotalol (BETAPACE) 80 mg tabletIndications:Atr ial flutter with rapid ventricular response (HC) Take 1 tablet by mouth every 12 hours. 180 tablet 4 06/23/2019 Active ELIQUIS 5 mg tabletIndications:Atr ial flutter with rapid ventricular response (HC) Take 1 tablet by mouth 2 times daily. 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 Prostate cancer 10/04/2016 IBS (irritable bowel syndrome) 10/04/2016 Sensorineural hearing loss, asymmetrical 007 Subjective tinnitus 07/09/2007 Family History Medical History Relation Name Comments Other Brother Carotid endoart erectomy Heart Disease Father CABG Heart failure Father Dementia Mother Other Mother AAA Other cancer Mother Carotic endoate rerectomy Relation Name Status Comments Brother Father Mother Social History Tobacco Use Types Packs/Day Years Used Date Smoking Tobacco: Never Smokeless Tobacco: Never Alcohol Use Standard Drinks/Week Comments Yes 0 (1 standard drink = 0.6 oz pure alcohol) 2 beverages per week (beer, wine) Sex and Gender Information Value Date Recorded Sex Assigned at Not on file Gender Identity Not on file Sexual Orientation Not on file Obstetrics History Last Filed Vital Signs Vital Sign Reading Time Taken Comments Blood Pressure 134/76 06/23/2019 3:28 PM CDT Pulse 64 06/23/2019 3:28 PM CDT Temperature 36.7 ??C (98 ??F) 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 Respiratory Rate 16 10/08/2016 12:05 AM MODEL MAKER Oxygen Saturation 95% 06/23/2019 3:28 PM CDT [...] age 12+ 1956 Hepatitis C screening for ag e 18-79 1962 Tetanus booster 1964 Zoster (shingles) series for age 50+ (1 of 2) 1994 Medicare Wellness for age 65+ 2009 Pneumococcal series for age 65+ (1 of 1 - PCV) 2009 BMI (ht and wt on same day) for age 18+ 06/23/2020 06/23/2019, 01/06/2019, 07/15/2018, Additional history exists Influenza for age 65+ 05/15/2023 Insurance Payer Benefit Plan / Group Subscriber ID Effective Dates Phone Address Type MEDICARE PART A - HB USE ONLY MEDICARE PART A HB ONLY [id number] 2009-Present ATTN: CLAIMS [address] [place] [address] MEDICARE PART B - HB USE ONLY MEDICARE PART B HB ONLY [id number] 2009-Present ATTN: CLAIMS [address] [place] [address] MEDICARE - PB USE ONLY MEDICARE PB ONLY [id number] 2009-Present ATTN: CLAIMS [address] [place] [address] FOR LIFE [id number] 2016-Present [address] [place] [phone] Advance Directives Latest Code Status on File Code Status Date Activated Date Inactivated Comments Full Code 10/07/2016 1:07 PM 10/08/2016 3:08 PM Code Status History Code Status Date Activated Date Inactivated Comments Full Code 10/06/2016 11:29 AM 10/07/2016 1:07 PM Full Code 10/04/2016 12:47 PM 10/06/2016 11:29 AM Care Teams Mold Filling Operator Relationship Specialty Start Date End Date Rosalinda Yancey MD PCP - General Internal Medicine 10/22/16
--- OUTSIDE RECORDS SUMMARY | 2023-10-01 09:13 | XMS_ITS | Referral Summary ---
Author Name Unknown Organization [facility] Address [address] [place] [id number] Care Team Providers Care Postal Transportation Clerk Name Role Phone Unavailable Primary Care Provider Unavailabl e Source Comments Patient records contain information from all sites at [facility]. For routine questions regarding patient records, call [phone] during business hours, M-F 8:00 AM - 5:00 PM Central Time. Record requests for emergency care only can be directed to [phone] at any time.[facility] Encounters Date Type Department Care Team Description 09/24/2023 11:45 AM VENEER SUPERVISOR Telemedicine Department of Oncology in [place], [place] [address] [place] [address] Gwendolyn Rao M.D. Carcinoid Tumor Malignant (HCC) (Primary Dx) 09/21/2023 Orders Only Department of Oncology in [place], [place] [address] [place] [phone] Gwendolyn Rao M.D. 09/16/2023 Clinical Communication Department of Radiology, [facility], in [place], [place] [address] [place] [phone] Kade Bennett M.D. Follow-up (Post procedure follow up phone call) 09/15/2023 9:40 AM VENEER SUPERVISOR - 09/15/2023 2:36 PM VENEER SUPERVISOR Hospital Encounter Outpatient Surgery Unit in [place], [place] [address] [place] [address] Gwendolyn Rao M.D. Hill, Jennifer M, APRN, C.N.P., D.N.P. Carcinoid Tumor Malignant (HCC) Discharge Disposition: Home or Self Care 09/10/2023 Clinical Communication Department of Oncology in [place], [place] [address] [place] [phone] Elly Yi R.N. 09/09/2023 3:30 PM VENEER SUPERVISOR Office Visit Department of Oncology in [place], [place] [address] [place] [phone] Maureen Michelle M.D. Li, Marissa M, M.D. Carcinoid Tumor Malignant (HCC) (Primary Dx) 09/09/2023 10:15 AM VENEER SUPERVISOR - 09/09/2023 11:59 PM VENEER SUPERVISOR Hospital Encounter Department of Radiology, [facility] in [place], [place] [address] [place] [phone] Maureen Michelle M.D. Carcinoid Tumor Malignant (HCC); Personal History Of Malignant Neoplasm Of Prostate Discharge Disposition: Home or Self Care 09/04/2023 8:30 AM VENEER SUPERVISOR Clinical Communication Virtual Review in [place], [place] [address] [place] [address] Blood Pressure from Last 3 Months Allergies Active Allergy Reactions Criticality Noted Date Comments Naproxen GI intolerance,Diarrhea 02/06/2011 Soap Rash 10/04/2016 Dial soap Medications Medication Sig Dispensed Refills Start Date End Date Status octreotide acetate (SANDOSTATIN) 50 mcg/mL (1 mL) injection every 28 (twenty-eight) days. 0 09/19/2019 Active sotalol (BETAPACE) 80 mg tablet 2 (two) times a day. 0 09/21/2019 Active warfarin (COUMADIN) 5 mg tablet Take by mouth daily. Takes 5 mg four days per week and 7.5 mg three days per week. 0 01/11/2020 Active cholecalciferol, vitamin D3, 25 mcg (1,000 Unit) tablet TAKE ONE TABLET BY MOUTH EVERY DAY 0 01/20/2019 Active vitamin E mixed 1,000 unit capsule A couple days per week 0 02/17/2022 Active fluticasone propionate (FLONASE) 50 mcg/actuation nasal spray SPRAY 2 SPRAYS IN EACH NOSTRIL EVERY DAY USE REGULARLY FOR RELIEF OF ALLERGIES/CONGES TION 0 04/04/2022 Active vitamin A 2,400 mcg (8,000 Unit) capsule Take 2,400 mcg by mouth daily. A couple days a week 0 Active simethicone (MYLICON) 80 mg chewable tablet Chew 80 mg 3 (three) times a day as needed for flatulence. 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 More than three times a week 09/29/2019 How often do you get togethe r with friends or relatives? More than three times a week 09/29/2019 How often do you attend chur or bahai services? More than 4 times per year 09/29/2019 Do you belong to any clubs o r organizations such as rastafarian groups, unions, fraternal or athletic groups, or school groups? Yes 09/29/2019 How often do you attend meet ings of the clubs or organizations you belong to? More than 4 times per year 09/29/2019 Are you , , di vorced, , never , or living with a partner? 09/29/2019 AUDIT-C Answer Date Recorded Q1: How often do you have a drink containing alc ohol? 2-4 times a month 09/29/2019 Q2: How many drinks containi ng alcohol do you have on a typical day when you are drinking? 1 or 2 09/29/2019 Q3: How often do you have si x or more drinks on one occasion? Never 09/29/2019 Overall Financial Resource Strain (CARDIA) Answe r Date Recorded How hard is it for you to pa y for the very basics like food, housing, medical care, and heating? Not hard at all 09/29/2019 [facility] - Occupational Stress Questionnaire Answer Date Recorded Do you feel stress - tense, restless, nervous, or anxious, or unable to sleep at night because your mind is troubled all the time - these days? Not at all 09/29/2019 Exercise Vital Sign Answer Date Recorde d On average, how many days pe r week do you engage in moderate to strenuous exercise (like a brisk walk)? 5 days 09/29/2019 On average, how many minutes do you engage in exercise at this level? 50 min 09/29/2019 Hunger Vital Sign Answer Date Recorded Within the past 12 months, y ou worried that your food would run out before you got the money to buy more. Never true 09/29/19 20 Within the past 12 months, t he food you bought just didn't last and you didn't have money to get more. Never true 09/29/2019 PRAPARE - Transportation Answer Date Re corded In the past 12 months, has l ack of transportation kept you from medical appointments or from getting medications? No 09/14 In the past 12 months, has l ack of transportation kept you from meetings, work, or from getting things needed for daily living? No 09/29/2019 Nutrition Answer Date Recorded Nutrition: EVOO Fat Source Unknown 10/17 Nutrition: Servings of Fruits/Vegetables per Day Not on file 10/17/2022 Dental Answer Date Recorded Dental: Regular Dentist Unknown 10/17/19 23 Education Answer Date Recorded What is the highest level of school you have completed or the highest degree you have received? Master's degree (e.g., MA, MS, Darrin, MEd, ASS[employer] LEAD, [employer]ER[employer]) 09/29/2019 Sex and Gender Information Value Date Recorded Sex Assigned at Male 12/09/2022 3:56 PM CDT Gender Identity Male 02/23/2020 7:33 PM CDT Sexual Orientation Straight 02/23/2020 7: 33 PM CDT Last Filed Vital Signs Vital Sign Reading Time Taken Comments Blood Pressure 134/87 09/15/2023 1:15 PM VENEER SUPERVISOR Pulse 81 09/15/2023 12:35 PM VENEER SUPERVISOR Temperature 37.4 ??C (99.3 ??F) 09/15/2023 12:[address] Respiratory Rate 18 09/15/2023 12:49 PM VENEER SUPERVISOR Oxygen Saturation 100% 09/15/2023 12:49 PM VENEER SUPERVISOR Inhaled Oxygen Concentration - - Weight 98 kg (216 lb 0.8 oz) 09/09/2023 3:22 PM VENEER SUPERVISOR Height 177.1 cm (5' 9.72) 09/09/2023 3:22 PM CS T Body Mass Index 31.25 09/09/2023 3:22 PM VENEER SUPERVISOR Plan of Treatment Upcoming Encounters Date Type Department Care Team (Late st Contact Info) Description 12/24/2023 11:15 AM CDT Office Visit Division of Hematology in [place], [place] [address] [place] [phone] Maureen Michelle M.D. [address] [place] [phone] Medical Devices Implanted Type Area Teacher [employer] Device Identifier Shelf Expiration Date Model / Serial / Lot Hardware E.G. Pins/Screws/R ods Hardware e.g. pins/screws/ rods Right: Shoulder Knee Implant Knee Implant Knee Description:Both knees repla sandip Procedures Procedure Name Priority Date/Time Associated Diagnosis Comments PROTHROMBIN TIME (PT), P STAT 09/15/2023 1:00 PM VENEER SUPERVISOR US LIVER BIOPSY RAD - Routine (most inpatients and all outpatients) 09/15/2023 12:16 PM VENEER SUPERVISOR Carcinoid Tumor Malignant (HCC) CYTOLOGY FINE NEEDLE ASPIRATION (INCLUDES CORE BIOPSIES Timed 09/15/2023 11:55 AM VENEER SUPERVISOR Carcinoid Tumor Malignant (HCC) INR, POCT, B Routine 09/15/2023 11:06 AM VENEER SUPERVISOR ADULT OXYGEN THERAPY Routine 09/15/2023 11:01 AM VENEER SUPERVISOR COMPREHENSIVE METABOLIC PANEL, S/P Routine 09/09/2023 1:45 PM VENEER SUPERVISOR 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 CBC WITH DIFFERENTIAL, B Routine 09/09/2023 1:45 PM VENEER SUPERVISOR 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 PET MR ABDOMEN FOCUSED WITHOUT AND WITH IV CONTRAST RAD - Routine (most inpatients and all outpatients) 09/09/2023 1:40 PM VENEER SUPERVISOR 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 PET MR TRUNK SURVEY DOTATATE RAD - Routine (most inpatients and all outpatients) 09/09/2023 1:40 PM VENEER SUPERVISOR 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 CREATININE, POCT, B Routine 09/09/2023 1 0:57 AM VENEER SUPERVISOR CREATININE, POCT, B Routine 09/09/2023 1 0:57 AM VENEER SUPERVISOR from Last 3 Months Results * Prothrombin Time (PT) (09/15/2023 1:00 PM VENEER SUPERVISOR) Prothrombin Time, P 12.5 9.4 - 12.5 sec 09/15/2023 1:12 PM VENEER SUPERVISOR METH INR 1.1 0.9 - 1.1 09/15/2023 1:12 PM VENEER SUPERVISOR METH Comment: ----ADDITIONAL INFORMATION---- Standard intensity warfarin therapeutic range: 2.0 to 3.0 ?? High intensity warfarin therapeutic range: 2.5 to 3.5 Blood (Blood, Venous) 09/15/2023 1:00 PM VENEER SUPERVISOR 09/15/2023 1:04 PM VENEER SUPERVISOR Kade Bennett M.D. LAB BLOOD ADD-O N [facility] [address] [place] [address], [place] METH [facility] [address] [place] [address] * US Liver Biopsy (09/15/2023 12:16 PM VENEER SUPERVISOR) Anatomical Region Laterality Modality Abdomen, Ultrasound RST LOS, Ultrasound ARZ LOS, Procedure FLA LOS, Abdominal FLA LOS, Procedural, Procedural NWWI LOS N/A Ultrasound Impressions 09/15/2023 12:34 PM VENEER SUPERVISOR Ultrasound-guided liver mass biopsy. EP Narrative 09/15/2023 12:34 PM VENEER SUPERVISOR EXAM: US LIVER BIOPSY PRE-PROCEDURE: Patient seen, evaluated, history reviewed, and approved for sedation. Airway, heart, and lung exam satisfactory for sedation. Discussed risks, benefits, alternatives for procedure, and/or sedation. The roles and responsibilities of care team members, residents, and fellows were discussed. Patient understands information and questions answered. Informed consent obtained from the patient. Immediately prior to starting the procedure, in the presence of the assisting personnel, a procedural pause was conducted to verify correct patient identity and verification of procedure to be performed, and as applicable, correct side and site, correct patient position, availability of implants, special equipment, or special requirements, and all image and specimen identification data. INTRAPROCEDURE: Moderate sedation was administered by sedation nurse under my supervision. The patient was continuously monitored with real time oxygen saturation, heart rate, ECG rhythm strip and blood pressure throughout administration of the sedation and performance of the procedure. The total intra-procedural sedation time was: 7 minutes. TECHNIQUE: Sterile. 1% lidocaine for local anesthesia. Location: Right lobe liver mass. A hyperechoic mass measuring approximately 1.8 cm was targeted. This should correspond to the DOTATATE avid mass in the high right hepatic lobe as seen on series 19, image 60 of the MRI 09/09/2023. The larger, more superior mass in the right hepatic dome was not visible sonographically. Target lesion size: 1.8 cm. Needle size: 18-gauge. Number of passes: 4. Complication: None. Blood loss: None. PATIENT INSTRUCTIONS: Patient may be dismissed from the radiology department when dismissal criteria met. POST-PROCEDURE DIAGNOSIS: Metastatic neuroendocrine tumor. Procedure Note Kade Bennett M.D. - 09/15/2023 EXAM: US LIVER BIOPSY PRE-PROCEDURE: Patient seen, evaluated, history reviewed, and approved forsedation. Airway, heart, and lung exam satisfactory for sedation.Discussed risks, benefits, alternatives for procedure, and/or sedation.The roles and responsibilities of care team members, residents, and fellows were discussed. Patient understandsinformation and questions answered. Informed consent obtained from thepatient. Immediately prior to starting the procedure, in the presence ofthe assisting personnel, a procedural pause was conducted to verify correct patient identity and verificationof procedure to be performed, and as applicable, correct side and site,correct patient position, availability of implants, special equipment, orspecial requirements, and all image and specimen identification data. INTRAPROCEDURE: Moderate sedation was administered by sedation nurse undermy supervision. The patient was continuously monitored with real timeoxygen saturation, heart rate, ECG rhythm strip and blood pressurethroughout administration of the sedation and performance of the procedure. The total intra-procedural sedation timewas: 7 minutes. TECHNIQUE: Sterile. 1% lidocaine for local anesthesia. Location: Right lobe liver mass. A hyperechoic mass measuringapproximately 1.8 cm was targeted. This should correspond to the DOTATATEavid mass in the high right hepatic lobe as seen on series 19, image 60 ofthe MRI 09/09/2023. The larger, more superior mass in the right hepatic dome was not visible sonographically. Target lesion size: 1.8 cm. Needle size: 18-gauge. Number of passes: 4. Complication: None. Blood loss: None. PATIENT INSTRUCTIONS: Patient may be dismissed from the radiologydepartment when dismissal criteria met. POST-PROCEDURE DIAGNOSIS: Metastatic neuroendocrine tumor. IMPRESSION: Ultrasound-guided liver mass biopsy. EP Gwendolyn Rao M.D. [facility] [place]EDURES * (ABNORMAL) Cytology Fine Needle Aspiration (including core biopsies) (09/15/2023 11:55 AM VENEER SUPERVISOR) (A) 09/18/2023 4:29 PM VENEER SUPERVISOR DTL Disclaimer This test was developed and its performance characteristics determined by [facility] in a manner consistent with CLIA requirements. This test has not been cleared or approved by the U.S. Food and Drug Administration. (A) 09/18/2023 4:29 PM VENEER SUPERVISOR DTL Participated in the Interpretation Valerie Bauman M.D., Ph.D. -Pathology Resident(A) 09/18/2023 4:29 PM VENEER SUPERVISOR DTL Report electronically signed by Crissy Bowie M.D. I verify that I have examined all relevant slides/materials for the specimen(s) and rendered or confirmed the diagnosis. Seen in consultation with: Thierno Sevilla M.D., Ph.D. (A) 09/18/2023 4:29 PM VENEER SUPERVISOR DTL Gross Description Received 4 alcohol-fixed smears and tissue. Additionally, received in formalin labeled with the patient's name, medical record number, and liver mass are four [id number] softtissue cores and six fragments, 0.1 cm in average diameter and ranging from 0.1-1.5 cm in length. Specimens are submitted en toto incassettes A1, three cores and A2, one core and six fragments. ??Grossed by AJB. (A) 09/18/2023 4:29 PM VENEER SUPERVISOR DTL Source A. Liver, Mass, fine needle aspiration(A) 09/18/2023 4:29 PM VENEER SUPERVISOR DTL Interpretation A. Liver, Mass, fine needle aspiration (smears/core biopsy): Positive for neoplasm. ?? Involved by well-differentiate d neuroendocrine tumor, WHO grade 2 (of 3). Immunostains performed on block A1 show the neoplastic cells are positive for AE1/AE3, synaptophysin, and chromogranin, while negative for NKX3.1 and PSA. Liver, Mass, fine needle aspiration (core biopsy): block A1 SPECIAL PROCEDURE REPORT Biomarker(s) for: Neuroendocrine tumor or carcinoma Result(s): Ki-67 labeling index: ?Labeling Index: 5 % ?(3% to 20%) METHOD AND SCORING Ki-67 Neuroendocrine Tumor Automated Scoring Method: Immunohistochemica l staining of the Ki-67 antigen in formalin-fixed paraffin-embedded tissue sections has been validated by our laboratory, using the Dako mouse monoclonal MIB-1 clone and a proprietary detection system. All controls show appropriate reactivity. Immunohistochemica l stained slides are scanned using the Leica Zero Locus ([id number] digital scanner. The captured digital image is analyzed using a validated AI (Artificial Intelligence) algorithm by [employer]blair (r) ??that calculates the percentage of positive staining tumor nuclei. The [employer]oria (r) ??data and corresponding slide are reviewed by a pathologist for final interpretation. This test was developed and its performance characteristics determined by [facility] in a manner consistent with CLIA requirements. This test has not been cleared or approved by the U.S. Food and Drug Administration. Ki-67 interpreted by: ??Isaias JackS., Ph.D.(A) 09/18/2023 4:29 PM VENEER SUPERVISOR DTL Tissue (Liver) 09/15/2023 11 :55 AM VENEER SUPERVISOR Gwendolyn Rao M.D. LAB SURG PATH ORDERA BLES Performing Organization Address City/[facility]/ZIP Co de Phone Number [facility] [address] [place] 200 [facility] 200 [place] [address] * INR, POCT (09/15/2023 11:06 AM VENEER SUPERVISOR) INR, POCT, B 1.1 09/15/2023 4:30 PM VENEER SUPERVISOR [facility] Comment: ----ADDITIONAL INFORMATION---- Standard intensity warfarin therapeutic range: 2.0 to 3.0 ?? High intensity warfarin therapeutic range: 2.5 to 3.5 Blood 09/15/2023 11:0 6 AM VENEER SUPERVISOR 09/15/2023 4:30 PM VENEER SUPERVISOR Unknown Provider LAB POCT ORDERABLES - DEVICE Performing Organization Address City/[facility]/ZIP Co de Phone Number POC [facility] [address] [place], [place] [address]O [facility] POC [address] [place] [address] * (ABNORMAL) CBC with Differential, Blood (09/09/2023 1:45 PM VENEER SUPERVISOR) Hemoglobin 15.0 13.2 - 16.6 g/dL 09/09/2023 2:27 PM VENEER SUPERVISOR DTL Hematocrit 43.4 38.3 - 48.6 % 09/09/2023 2:27 PM VENEER SUPERVISOR DTL Erythrocytes 4.40 4.35 - 5.65 x10(12)/L 09/09/2023 2:27 PM VENEER SUPERVISOR DTL MCV 98.6(H) 78.2 - 97.9 fL 09/09/2023 2:27 PM VENEER SUPERVISOR DTL RBC Distrib Width 12.5 11.8 - 14.5 % 09/09/2023 2:27 PM VENEER SUPERVISOR DTL Platelet Count 211 135 - 317 x10(9)/L 09/09/2023 2:27 PM VENEER SUPERVISOR DTL Leukocytes 3.7 3.4 - 9.6 x10(9)/L 09/09/2023 2:27 PM VENEER SUPERVISOR DTL Neutrophils 1.62 1.56 - 6.45 x10(9)/L 09/09/2023 2:27 PM VENEER SUPERVISOR DHPM Lymphocytes 1.34 0.95 - 3.07 x10(9)/L 09/09/2023 2:27 PM VENEER SUPERVISOR DTL Monocytes 0.50 0.26 - 0.81 x10(9)/L 09/09/2023 2:27 PM VENEER SUPERVISOR DTL Eosinophils 0.18 0.03 - 0.48 x10(9)/L 09/09/2023 2:27 PM VENEER SUPERVISOR DTL Basophils <0.03 0.01 - 0.08 x10(9)/L 09/09/2023 2:27 PM VENEER SUPERVISOR DTL Blood (Blood, Venous) 09/09/2023 1:45 PM VENEER SUPERVISOR 09/09/2023 2:17 PM VENEER SUPERVISOR Maureen Michelle M.D. LAB BLOOD ADD-ON [facility] [address] [place] [address], [place] DTL [facility] [address] [place] [address] [facility] [address] [place] [address] * Comprehensive Metabolic Panel (09/09/2023 1:45 PM VENEER SUPERVISOR) [facility] Potassium, S 4.6 3.6 - 5.2 mmol/L 09/09/2023 2:47 PM VENEER SUPERVISOR DTL Sodium, S 143 135 - 145 mmol/L 09/09/2023 2:47 PM VENEER SUPERVISOR DTL Chloride, S 104 98 - 107 mmol/L 09/09/2023 2:47 PM VENEER SUPERVISOR DTL Bicarbonate, S 27 22 - 29 mmol/L 09/09/2023 2:47 PM VENEER SUPERVISOR DTL Anion Gap 12 7 - 15 09/09/2023 2:47 PM VENEER SUPERVISOR DTL BUN (Blood Urea Nitrogen), S 13 8 - 24 mg/dL 09/09/2023 2:47 PM VENEER SUPERVISOR DTL Creatinine 1.10 0.74 - 1.35 mg/dL 09/09/2023 2:47 PM VENEER SUPERVISOR DTL Estimated GFR (eGFR) 68 >=60 mL/min/BS A 09/09/2023 2:47 PM VENEER SUPERVISOR DTL Comment: Estimated GFR calculated using the 2020 CKD_EPI creatinine equation. Calcium, Total, S 9.1 8.8 - 10.2 mg/dL 09/09/2023 2:47 PM VENEER SUPERVISOR DTL Glucose, S 101 70 - 140 mg/dL 09/09/2023 2:47 PM VENEER SUPERVISOR DTL Protein, Total, S 6.6 6.3 - 7.9 g/dL 09/09/2023 2:47 PM VENEER SUPERVISOR DTL Albumin, S 4.1 3.5 - 5.0 g/dL 09/09/2023 2:47 PM VENEER SUPERVISOR DTL Aspartate Aminotransferase (AST), S 36 8 - 48 U/L 09/09/2023 2:47 PM VENEER SUPERVISOR DTL Alkaline Phosphatase, S 82 40 - 129 U/L 09/09/2023 2:47 PM VENEER SUPERVISOR DTL Alanine Aminotransferase (ALT), S 31 7 - 55 U/L 09/09/2023 2:47 PM VENEER SUPERVISOR DTL Bilirubin, Total, S 0.8 0.0 - 1.2 mg/dL 09/09/2023 2:47 PM VENEER SUPERVISOR DTL Blood (Blood, Venous) 09/09/2023 1:45 PM VENEER SUPERVISOR 09/09/2023 2:27 PM VENEER SUPERVISOR Maureen Michelle M.D. LAB BLOOD ADD-ON [facility] [address] [place] [address], [place] DTL [facility] [address] [place] [address] * PET MR Skull to Thigh Survey DOTATATE (09/09/2023 1:40 PM VENEER SUPERVISOR) Anatomical Region Laterality Modality Body, Nuclear Medicine PET R ST LOS, PET ARZ LOS, Nuclear Medicine PET FLA LOS, Nuclear Medicine N/A Positron Emission Tomography (PET), Magnetic Resonance Impressions 09/09/2023 2:26 PM VENEER SUPERVISOR 1. Interval progression since the prior DOTATATE PET CT dated 01/28/2021, including interval progression of DOTATATE avid osseous, hepatic and marychuy metastases and new DOTATATE avid pulmonary and retroperitoneal metastases. 2. Unchanged appearance of heterogeneous DOTATATE uptake in the pancreas, with predominant DOTATATE avid focus in the pancreatic tail without convincing corresponding MRI abnormality. 3. Unchanged at least two small DOTATATE avid foci in the small bowel, suspicious for primary lesions. 4. No DOTATATE non-avid metastases. ?? Krenning score: 4 Narrative 09/09/2023 2:26 PM VENEER SUPERVISOR EXAM: PET MR SKULL TO THIGH SURVEY DOTATATE RADIOPHARMACEUTICAL/MEDS: Route: intravenous gallium Ga 68 dotatate injection (Ga-68 NETSPOT),5.25 millicurie TECHNIQUE: Ga-68 DOTATATE PET/MRI scan was performed from the vertex through the upper thighs with MR fusion imaging for attenuation correction, anatomic coregistration and respiratory gating only, with imaging beginning at approximately 60 minutes after radiotracer injection. COMPARISON: Outside DOTATATE PET/CT dated 01/28/2021, 10/07/2019, MRI abdomen dated 03/02/2023, CT chest dated 03/02/2023, and other previous studies Imaging performed in conjunction with focused PET/MRI. For further details regarding the focused MRI portion of this exam please see separate dictated report. INDICATION: Restaging metastatic neuroendocrine tumor. On first line therapy with octreotide LAR. History of prostate cancer status post prostatectomy and pelvic lymphadenectomy in 2013. ??Subsequent treatment strategy. The patient reports no recent vaccinations. FINDINGS: Due to the difference in technique, SUV values cannot be compared from the most recent outside DOTATATE PET/CT dated 01/28/2021. Interval increase in tracer avid tumor burden of innumerable markedly DOTATATE avid osseous metastases involving the calvarium, cervicothoracolumbar spine, ribs, scapula, humeri, sacrum, pelvic bones and femurs. For instance, a sternal metastasis has an SUV max of 43.6 (whole-body image 128), and a right sacral metastasis has an SUV max of 40.5 (whole-body image 270). Multiple markedly DOTATATE avid hepatic metastases in bilateral lobes of the liver, which have increased in number from PET/CT dated 01/28/2021. For instance, a right hepatic dome metastasis has an SUV max of 17.3 (whole-body image 167), and a left lateral hepatic metastases have an SUV max of 17.9 (whole-body image 180). Interval increase in tracer avid tumor burden of markedly DOTATATE avid marychuy metastases involving the mediastinal, retrocrural, retroperitoneal, cardiophrenic, and mesenteric lymph nodes. For instance, the largest mesenteric soft tissue mass measuring 5.6 x 4.0 cm with an SUV max of 64.2 (image 226), previously 4.7 x 3.6 cm on DOTATATE PET/CT dated 01/28/2021. New ultiple DOTATATE avid soft tissue nodules in the left retroperitoneum, consistent with metastatic disease. At least two small DOTATATE avid foci in the small bowel (whole-body image 226, 237), suspicious for primary small bowel lesions. Unchanged appearance of heterogeneous DOTATATE uptake in the atrophic pancreas with prominent DOTATATE avid focus in the pancreatic tail with an SUV max of 12.4 (image 192). No definite convincing corresponding abnormality on MRI. New DOTATATE avid bilateral pulmonary nodules, likely representing pulmonary metastases. Reference SUV max: - Spleen: ??21.3 - Liver: 9.8 Incidental significant findings on whole-body MRI: MRI findings in focused abdomen portion are reported separately. Prostatectomy. Compression deformity of L1 vertebral body. Procedure Note Saroj Brandon M.D., Ph.D. - 09/09/2023 EXAM: PET MR SKULL TO THIGH SURVEY DOTATATE RADIOPHARMACEUTICAL/MEDS: Route: intravenous gallium Ga 68 dotatate injection (Ga-68 NETSPOT),5.25 millicurie TECHNIQUE: Ga-68 DOTATATE PET/MRI scan was performed from the vertexthrough the upper thighs with MR fusion imaging for attenuationcorrection, anatomic coregistration and respiratory gating only, withimaging beginning at approximately 60 minutes after radiotracer injection. COMPARISON: Outside DOTATATE PET/CT dated 01/28/2021, 10/07/2019, MRIabdomen dated 03/02/2023, CT chest dated 03/02/2023, and other previousstudies Imaging performed in conjunction with focused PET/MRI. For further detailsregarding the focused MRI portion of this exam please see separatedictated report. INDICATION: Restaging metastatic neuroendocrine tumor. On first linetherapy with octreotide LAR. History of prostate cancer status postprostatectomy and pelvic lymphadenectomy in 2013. Subsequent treatmentstrategy. The patient reports no recent vaccinations. FINDINGS: Due to the difference in technique, SUV values cannot becompared from the most recent outside DOTATATE PET/CT dated 01/28/2021. Interval increase in tracer avid tumor burden of innumerable markedlyDOTATATE avid osseous metastases involving the calvarium,cervicothoracolumbar spine, ribs, scapula, humeri, sacrum, pelvic bonesand femurs. For instance, a sternal metastasis has an SUV max of 43.6 (whole-body image 128), and a right sacral metastasis hasan SUV max of 40.5 (whole-body image 270). Multiple markedly DOTATATE avid hepatic metastases in bilateral lobes ofthe liver, which have increased in number from PET/CT dated 01/28/2021.For instance, a right hepatic dome metastasis has an SUV max of 17.3(whole-body image 167), and a left lateral hepatic metastases have an SUV max of 17.9 (whole-body [id number]). Interval increase in tracer avid tumor burden of markedly DOTATATE avidnodal metastases involving the mediastinal, retrocrural, retroperitoneal,cardiophrenic, and mesenteric lymph nodes. For instance, the largestmesenteric soft tissue mass measuring 5.6 x 4.0 cm with an SUV max of 64.2 (image 226), previously 4.7 x 3.6 cmon DOTATATE PET/CT dated 01/28/2021. New ultiple DOTATATE avid soft tissue nodules in the left retroperitoneum,consistent with metastatic disease. At least two small DOTATATE avid foci in the small bowel (whole-body [id number], 237), suspicious for primary small bowel lesions. Unchanged appearance of heterogeneous DOTATATE uptake in the atrophicpancreas with prominent DOTATATE avid focus in the pancreatic tail with anSUV max of 12.4 (image 192). No definite convincing correspondingabnormality on MRI. New DOTATATE avid bilateral pulmonary nodules, likely representingpulmonary metastases. Reference SUV max: - Spleen: 21.3 - Liver: 9.8 Incidental significant findings on whole-body MRI: MRI findings in focusedabdomen portion are reported separately. Prostatectomy. Compressiondeformity of L1 vertebral body. IMPRESSION: 1. Interval progression since the prior DOTATATE PET CT dated 01/28/2021,including interval progression of DOTATATE avid osseous, hepatic and nodalmetastases and new DOTATATE avid pulmonary and retroperitoneal metastases. 2. Unchanged appearance of heterogeneous DOTATATE uptake in the pancreas,with predominant DOTATATE avid focus in the pancreatic tail withoutconvincing corresponding MRI abnormality. 3. Unchanged at least two small DOTATATE avid foci in the small bowel,suspicious for primary lesions. 4. No DOTATATE non-avid metastases. Krenning score: 4 Maureen MONTOYA NM PROCEDURES * PET MR Abdomen Focused Without and With IV Contrast (09/09/2023 1:40 PM VENEER SUPERVISOR) Anatomical Region Laterality Modality Abdomen, Abdominal RST LOS, PET ARZ LOS, Abdominal ARZ LOS, Abdominal FLA LOS N/A Positron Emission Tomography (PET), Magnetic Resonance Impressions 09/09/2023 2:36 PM VENEER SUPERVISOR Slight interval enlargement of hepatic, peritoneal, and osseous metastases and stable lymphadenopathy. Narrative 09/09/2023 2:36 PM VENEER SUPERVISOR EXAM: ??PET MR ABDOMEN FOCUSED WITHOUT AND WITH IV CONTRAST COMPARISON: ??MR abdomen 03/02/2023. Imaging performed in conjunction with a survey PET/MRI of the body. For further details regarding the PET portion of this exam, and all findings outside of the abdomen please see separate report. FINDINGS: ??Numerous hepatic metastases have increased in size since MR 03/02/2023. For example the dominant lesion in the right hepatic dome measures 2.4 x 2.9 cm, previously 1.8 x 6 cm. A lesion in the left hepatic lobe measures 9 mm (series 19 image 74), previously 6 mm. Additional lesions are slightly increased in size. Numerous enhancing mesenteric retroperitoneal, right retrocrural nodes are similar in size, for example a dominant mesenteric node measures up to 4.7 cm (series 2 image 39). Multiple peritoneal nodules have slightly increased in size, for example a left posterior peritoneal nodule measures 1.1 cm (series 17 image 32), previously measuring 0.9 cm. Numerous T2 hyperintense enhancing osseous lesion are slightly increased in size, for example the dominant lesion in the sternum now measures approximately 3 cm (series 17 image 13), previously measuring 2.4 cm. Diffuse fatty atrophy of the pancreas. 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 Normal caliber of the main pancreatic duct. Right renal cyst. Nondilated loops of bowel. Colonic diverticulosis. Procedure Note Tova Leroy M.D. - 09/09/2023 EXAM: PET MR ABDOMEN FOCUSED WITHOUT AND WITH IV CONTRAST COMPARISON: MR abdomen 03/02/2023. Imaging performed in conjunction with a survey PET/MRI of the body. Forfurther details regarding the PET portion of this exam, and all findingsoutside of the abdomen please see separate report. FINDINGS: Numerous hepatic metastases have increased in size since MR03/02/2023. For example the dominant lesion in the right hepatic domemeasures 2.4 x 2.9 cm, previously 1.8 x 6 cm. A lesion in the left hepaticlobe measures 9 mm (series 19 image 74), previously 6 mm. Additional lesions are slightly increased in size. Numerous enhancing mesenteric retroperitoneal, right retrocrural nodes aresimilar in size, for example a dominant mesenteric node measures up to 4.7cm (series 2 image 39). Multiple peritoneal nodules have slightly increased in size, for example aleft posterior peritoneal nodule measures 1.1 cm (series 17 image 32),previously measuring 0.9 cm. Numerous T2 hyperintense enhancing osseous lesion are slightly increasedin size, for example the dominant lesion in the sternum now measuresapproximately 3 cm (series 17 image 13), previously measuring 2.4 cm. Diffuse fatty atrophy of the pancreas. Scattered tiny pancreatic cysticlesions likely representing sidebranch IPMNs. Normal caliber of the mainpancreatic duct. Right renal cyst. Nondilated loops of bowel. Colonicdiverticulosis. IMPRESSION: Slight interval enlargement of hepatic, peritoneal, and osseous metastasesand stable lymphadenopathy. Maureen Michelle M.D. IMOleg MRI PROCEDURES * Creatinine, POCT (09/09/2023 10:57 AM VENEER SUPERVISOR) Only the most recent of2 resultswithin the time period is included. Creatinine, POCT, B 1.1 0.7 - 1.4 mg/dL 09/09/2023 10:59 AM VENEER SUPERVISOR PCDT Comment: ----ADDITIONAL INFORMATION---- Performed at the Point of Care Blood 09/09/2023 10:5 7 AM VENEER SUPERVISOR 09/09/2023 10:59 AM VENEER SUPERVISOR Unknown Provider LAB POCT ORDERABLES - DEVICE [facility] PERFORMING LAB[facility] [address] [facility] [place] [address], [facility] PCDT [facility] POC [address] [place] [address] from Last 3 Months Care Teams Postal Transportation Clerk Relationship Specialty [place] [address] 05/22/21
--- OUTSIDE RECORDS SUMMARY | 2023-10-01 09:13 | XMS_ITS | Clinical Summary ---
Author Name Unknown Organization [facility] Address [address] [place] [address] Care Team Providers Care Paediatric Thoracic Physician Name Role Phone Unavailable Primary Care Provider Unavailabl e Source Comments Patient records contain information from all sites at [facility]. For routine questions regarding patient records, call [phone] during business hours, M-F 8:00 AM - 5:00 PM Central Time. 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 Carcinoid Tumor Malignant (HCC) (Primary Dx) 09/21/2023 Orders Only Department of Oncology in [address] [phone] Gwendolyn Rao M.D. 09/16/2023 Clinical Communication Department of Radiology, [facility], in [address] [phone] Kade Bennett M.D. Follow-up (Post procedure follow up phone call) 09/15/2023 9:40 AM MUSEUM EDUCATOR - 09/15/2023 2:36 PM MUSEUM EDUCATOR Hospital Encounter Outpatient Surgery Unit in [address] [phone] Gwendolyn Rao M.D. Hill, Jennifer M, APRN, C.N.P., D.N.P. Carcinoid Tumor Malignant (HCC) Discharge Disposition: Home or Self Care 09/10/2023 Clinical Communication Department of Oncology in [place], [place] [address] [place] [phone] Elly Yi, R.Arti. 09/09/2023 3:30 PM MUSEUM EDUCATOR Office Visit Department of Oncology in [place], [place] [address] [place] [phone] Maureen Michelle M.D. Li, Marissa M, M.D. Carcinoid Tumor Malignant (HCC) (Primary Dx) 09/09/2023 10:15 AM MUSEUM EDUCATOR - 09/09/2023 11:59 PM MUSEUM EDUCATOR Hospital Encounter Department of Radiology, [facility] in [place], [place] [address] [place] [phone] Maureen Michelle M.D. Carcinoid Tumor Malignant (HCC); Personal History Of Malignant Neoplasm Of Prostate Discharge Disposition: Home or Self Care 09/04/2023 8:30 AM MUSEUM EDUCATOR Clinical Communication Virtual Review in [place], [place] [address] [place] [address] Blood Pressure from Last 3 Months Immunizations Name Administration Dates Next Due PCV13 [...] 09/29/2019 How often do you attend chur ch or yazidi services? More than 4 times per year 09/29/2019 Do you belong to any clubs o r organizations such as denominational groups, unions, fraternal or athletic groups, or [...] and heating? Not hard at all 09/29/2019 [facility] - Occupational Stress [...] Master's degree (e.g., MA, MS, Darrin, MEd, WASHATERIA ATTENDANT, BERTHA) 09/29/2019 Sex and Gender Information Value Date Recorded Sex Assigned at Male 12/09/2022 3:56 PM CDT Gender Identity Male 02/23/2020 7:33 PM CDT Sexual Orientation Straight 02/23/2020 7: 33 PM CDT Last Filed Vital Signs Vital Sign Reading Time Taken Comments Blood Pressure 134/87 09/15/2023 1:15 PM MUSEUM EDUCATOR Pulse 81 09/15/2023 12:35 PM MUSEUM EDUCATOR Temperature 37.4 ??C (99.3 ??F) 09/15/2023 12:[address] Respiratory Rate 18 09/15/2023 12:49 PM MUSEUM EDUCATOR Oxygen Saturation 100% 09/15/2023 12:49 PM MUSEUM EDUCATOR Inhaled Oxygen Concentration - - Weight 98 kg (216 lb 0.8 oz) 09/09/2023 3:22 PM MUSEUM EDUCATOR Height 177.1 cm (5' 9.72) 09/09/2023 3:22 PM CS T Body Mass Index 31.25 09/09/2023 3:22 PM MUSEUM EDUCATOR Plan of Treatment Upcoming Encounters Date Type Department Care Team (Late st Contact Info) Description 12/24/2023 11:15 AM CDT Office Visit Division of Hematology in [place], [place] [address] [place] [address] Maureen Michelle M.D. [address] [place] [phone] Health Maintenance Due Date Last Done Comments Hepatitis C Screening 1945 Pneumococcal vaccine (65+ years) (2 of 2 - PPSV23 or PCV20) 07/04/2015 05/09/2015, 02/09/2014, 06/08/2009 Depression Screening (Annual PHQ-2) 09/14/2023 Office Visit for Blood Pressure Check / Re-check 09/09/2024 09/09/2023 DTaP,Tdap,and Td Vaccines (4 - Td or Tdap) 02/20/2033 02/20/2023, 08/29/2016, 04/14/2014, Additional history exists Abdominal Aortic Aneurysm (AAA) Screen Discontinued 11/06/2008 Zoster Vaccines Completed 02/17/2019, 09/15, 06/13/2009 Influenza Vaccine Completed 07/20/2023, , 06/16/2022, Additional history exists Fall Risk Screen (Annual) Completed 09/15/2023 COVID-19 Vaccine Completed 09/22/2023, 11/2021, 01/29/2022, Additional history exists HPV Vaccines Aged Out No longer eligi ble based on patient's age to complete this topic Medical Devices Implanted Type Area Roadmaster Device Identifier Shelf Expiration Date Model / Serial / Lot Hardware E.G. Pins/Screws/R ods Hardware e.g. pins/screws/ rods Right: Shoulder Knee Implant Knee Implant Knee Description:Both knees repla sandip Procedures Procedure Name Priority Date/Time Associated Diagnosis Comments PROTHROMBIN TIME (PT), P STAT 09/15/2023 1:00 PM MUSEUM EDUCATOR US LIVER BIOPSY RAD - Routine (most inpatients and all outpatients) 09/15/2023 12:16 PM MUSEUM EDUCATOR Carcinoid Tumor Malignant (HCC) CYTOLOGY FINE NEEDLE ASPIRATION (INCLUDES CORE BIOPSIES Timed 09/15/2023 11:55 AM MUSEUM EDUCATOR Carcinoid Tumor Malignant (HCC) INR, POCT, B Routine 09/15/2023 11:06 AM MUSEUM EDUCATOR ADULT OXYGEN THERAPY Routine 09/15/2023 11:01 AM MUSEUM EDUCATOR COMPREHENSIVE METABOLIC PANEL, S/P Routine 09/09/2023 1:45 PM MUSEUM EDUCATOR 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 CBC WITH DIFFERENTIAL, B Routine 09/09/2023 1:45 PM MUSEUM EDUCATOR 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 PET MR ABDOMEN FOCUSED WITHOUT AND WITH IV CONTRAST RAD - Routine (most inpatients and all outpatients) 09/09/2023 1:40 PM MUSEUM EDUCATOR 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 PET MR TRUNK SURVEY DOTATATE RAD - Routine (most inpatients and all outpatients) 09/09/2023 1:40 PM MUSEUM EDUCATOR 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 CREATININE, POCT, B Routine 09/09/2023 1 0:57 AM MUSEUM EDUCATOR CREATININE, POCT, B Routine 09/09/2023 1 0:57 AM MUSEUM EDUCATOR from Last 3 Months Results * Prothrombin Time (PT) (09/15/2023 1:00 PM MUSEUM EDUCATOR) Prothrombin Time, P 12.5 9.4 - 12.5 sec 09/15/2023 1:12 PM MUSEUM EDUCATOR METH INR 1.1 0.9 - 1.1 09/15/2023 1:12 PM MUSEUM EDUCATOR METH Comment: ----ADDITIONAL INFORMATION---- Standard intensity warfarin therapeutic range: 2.0 to 3.0 ?? High intensity warfarin therapeutic range: 2.5 to 3.5 Blood (Blood, Venous) 09/15/2023 1:00 PM MUSEUM EDUCATOR 09/15/2023 1:04 PM MUSEUM EDUCATOR Kade Bennett M.D. LAB BLOOD ADD-O N [facility] [address] [place] [address], [facility] METH [facility] [address] [place] [address] * US Liver Biopsy (09/15/2023 12:16 PM MUSEUM EDUCATOR) Anatomical Region Laterality Modality Abdomen, Ultrasound RST LOS, Ultrasound ARZ LOS, Procedure FLA LOS, Abdominal FLA LOS, Procedural, Procedural NWWI LOS N/A Ultrasound Impressions 09/15/2023 12:34 PM MUSEUM EDUCATOR Ultrasound-guided liver mass biopsy. EP Narrative 09/15/2023 12:34 PM MUSEUM EDUCATOR EXAM: US LIVER BIOPSY PRE-PROCEDURE: Patient seen, [...] liver mass biopsy. EP Gwendolyn Rao M.D. IMG US PROCEDURES * (ABNORMAL) Cytology Fine Needle Aspiration (including core biopsies) (09/15/2023 11:55 AM MUSEUM EDUCATOR) (A) 09/18/2023 4:29 PM MUSEUM EDUCATOR DTL Disclaimer This test was developed and its performance characteristics determined by [facility] in a manner consistent with CLIA requirements. This test has not been cleared or approved by the U.S. Food and Drug Administration. (A) 09/18/2023 4:29 PM MUSEUM EDUCATOR DTL Participated in the Interpretation Valerie Bauman M.D., Ph.D. -Pathology Resident(A) 09/18/2023 4:29 PM MUSEUM EDUCATOR DTL Report electronically signed by Crissy Bowie M.D. I verify that I have examined all relevant slides/materials for the specimen(s) and rendered or confirmed the diagnosis. Seen in consultation with: Thierno Sevilla M.D., Ph.D. (A) 09/18/2023 4:29 PM MUSEUM EDUCATOR DTL Gross Description Received 4 alcohol-fixed smears and tissue. Additionally, received in formalin labeled with the patient's name, medical record number, and liver mass are four [id number] softtissue cores and six fragments, 0.1 cm in average diameter and ranging from 0.1-1.5 cm in length. Specimens are submitted en toto incassettes A1, three cores and A2, one core and six fragments. ??Grossed by AJB. (A) 09/18/2023 4:29 PM MUSEUM EDUCATOR DTL Source A. Liver, Mass, fine needle aspiration(A) 09/18/2023 4:29 PM MUSEUM EDUCATOR DTL Interpretation A. Liver, Mass, fine needle [...] stained slides are scanned using the Le[employer] Rowbot SystemseriSelleration ([id number] digital scanner. The captured digital image is analyzed using a validated AI (Artificial Intelligence) algorithm by [employer] (r) ??that calculates the percentage of positive staining tumor nuclei. The [employer] (r) ??data and corresponding slide are reviewed by a pathologist for final interpretation. This test was developed and its performance characteristics determined by [facility] in a manner consistent with CLIA requirements. This test has not been cleared or approved by the U.S. Food and Drug Administration. Ki-[id number] interpreted by: ??Giovani Jack.B.S., Ph.D.(A) 09/18/2023 4:29 PM MUSEUM EDUCATOR DTL Tissue (Liver) 09/15/2023 11 :55 AM MUSEUM EDUCATOR Gwendolyn M Li M.D. LAB SURG PATH ORDERA BLES Performing Organization Address City/[facility]/ZIP Co de Phone Number [facility] [address] [place] [address], [facility] DTL 200 [facility] [address] [place] [address] * INR, POCT (09/15/2023 11:06 AM MUSEUM EDUCATOR) Pathologist [facility] INR, POCT, B 1.1 09/15/2023 4:30 PM MUSEUM EDUCATOR [facility] Comment: ----ADDITIONAL INFORMATION---- Standard intensity warfarin therapeutic range: 2.0 to 3.0 ?? High intensity warfarin therapeutic range: 2.5 to 3.5 Blood 09/15/2023 11:0 6 AM MUSEUM EDUCATOR 09/15/2023 4:30 PM MUSEUM EDUCATOR Unknown Provider LAB POCT ORDERABLES - DEVICE Performing Organization Address [facility] Co de Phone Number [facility]OC [facility] [address] [place], [place] [id number] [facility] POC [address] [place] [address] * (ABNORMAL) CBC with Differential, Blood (09/09/2023 1:45 PM MUSEUM EDUCATOR) [facility] Hemoglobin 15.0 13.2 - 16.6 g/dL 09/09/2023 2:27 PM MUSEUM EDUCATOR DTL Hematocrit 43.4 38.3 - 48.6 % 09/09/2023 2:27 PM MUSEUM EDUCATOR DTL Erythrocytes 4.40 4.35 - 5.65 x10(12)/L 09/09/2023 2:27 PM MUSEUM EDUCATOR DTL MCV 98.6(H) 78.2 - 97.9 fL 09/09/2023 2:27 PM MUSEUM EDUCATOR DTL RBC Distrib Width 12.5 11.8 - 14.5 % 09/09/2023 2:27 PM MUSEUM EDUCATOR DTL Platelet Count 211 135 - 317 x10(9)/L 09/09/2023 2:27 PM MUSEUM EDUCATOR DTL Leukocytes 3.7 3.4 - 9.6 x10(9)/L 09/09/2023 2:27 PM MUSEUM EDUCATOR DTL Neutrophils 1.62 1.56 - 6.45 x10(9)/L 09/09/2023 2:27 PM MUSEUM EDUCATOR [facility] Lymphocytes 1.34 0.95 - 3.07 x10(9)/L 09/09/2023 2:27 PM MUSEUM EDUCATOR DTL Monocytes 0.50 0.26 - 0.81 x10(9)/L 09/09/2023 2:27 PM MUSEUM EDUCATOR DTL Eosinophils 0.18 0.03 - 0.48 x10(9)/L 09/09/2023 2:27 PM MUSEUM EDUCATOR DTL Basophils <0.03 0.01 - 0.08 x10(9)/L 09/09/2023 2:27 PM MUSEUM EDUCATOR DTL Blood (Blood, Venous) 09/09/2023 1:45 PM MUSEUM EDUCATOR 09/09/2023 2:17 PM MUSEUM EDUCATOR Maureen Michelle M.D. LAB BLOOD ADD-ON [facility] [address] [place] [address], [facility] DTL [facility] [address] [place] [address] DHPM [facility] [address] [place] [address] * Comprehensive Metabolic Panel (09/09/2023 1:45 PM MUSEUM EDUCATOR) [facility] Potassium, S 4.6 3.6 - 5.2 mmol/L 09/09/2023 2:47 PM MUSEUM EDUCATOR DTL Sodium, S 143 135 - 145 mmol/L 09/09/2023 2:47 PM MUSEUM EDUCATOR DTL Chloride, S 104 98 - 107 mmol/L 09/09/2023 2:47 PM MUSEUM EDUCATOR DTL Bicarbonate, S 27 22 - 29 mmol/L 09/09/2023 2:47 PM MUSEUM EDUCATOR DTL Anion Gap 12 7 - 15 09/09/2023 2:47 PM MUSEUM EDUCATOR DTL BUN (Blood Urea Nitrogen), S 13 8 - 24 mg/dL 09/09/2023 2:47 PM MUSEUM EDUCATOR DTL Creatinine 1.10 0.74 - 1.35 mg/dL 09/09/2023 2:47 PM MUSEUM EDUCATOR DTL Estimated GFR (eGFR) 68 >=60 mL/min/BS A 09/09/2023 2:47 PM MUSEUM EDUCATOR DTL Comment: Estimated GFR calculated using the 2020 CKD_EPI creatinine equation. Calcium, Total, S 9.1 8.8 - 10.2 mg/dL 09/09/2023 2:47 PM MUSEUM EDUCATOR DTL Glucose, S 101 70 - 140 mg/dL 09/09/2023 2:47 PM MUSEUM EDUCATOR DTL Protein, Total, S 6.6 6.3 - 7.9 g/dL 09/09/2023 2:47 PM MUSEUM EDUCATOR DTL Albumin, S 4.1 3.5 - 5.0 g/dL 09/09/2023 2:47 PM MUSEUM EDUCATOR DTL Aspartate Aminotransferase (AST), S 36 8 - 48 U/L 09/09/2023 2:47 PM MUSEUM EDUCATOR DTL Alkaline Phosphatase, S 82 40 - 129 U/L 09/09/2023 2:47 PM MUSEUM EDUCATOR DTL Alanine Aminotransferase (ALT), S 31 7 - 55 U/L 09/09/2023 2:47 PM MUSEUM EDUCATOR DTL Bilirubin, Total, S 0.8 0.0 - 1.2 mg/dL 09/09/2023 2:47 PM MUSEUM EDUCATOR DTL Blood (Blood, Venous) 09/09/2023 1:45 PM MUSEUM EDUCATOR 09/09/2023 2:27 PM MUSEUM EDUCATOR Maureen Michelle M.D. LAB BLOOD ADD-ON [facility] [address] [place] [address], [facility] DTL [facility] [address] [place] [address] * PET MR Skull to Thigh Survey DOTATATE (09/09/2023 1:40 PM MUSEUM EDUCATOR) Anatomical Region Laterality Modality Body, Nuclear Medicine PET R ST LOS, PET ARZ LOS, Nuclear Medicine PET FLA LOS, Nuclear Medicine N/A Positron Emission Tomography (PET), Magnetic Resonance Impressions 09/09/2023 2:26 PM MUSEUM EDUCATOR 1. Interval progression since the prior DOTATATE [...] Krenning score: 4 Narrative 09/09/2023 2:26 PM MUSEUM EDUCATOR EXAM: PET MR SKULL TO THIGH SURVEY [...] cancer status postprostatectomy and pelvic lymphadenectomy in 2014. Subsequent treatmentstrategy. The patient reports no recent [...] have an SUV max of 17.9 (whole-body [id number]). Interval increase in tracer avid tumor burden [...] avid foci in the small bowel (whole-body [id number]), suspicious for primary small bowel lesions. [...] DOTATATE non-avid metastases. Krenning score: 4 Maureen Michelle M.D. [facility] [place] PROCEDURES * PET MR Abdomen Focused Without and With IV Contrast (09/09/2023 1:40 PM MUSEUM EDUCATOR) Anatomical Region Laterality Modality Abdomen, Abdominal RST LOS, PET ARZ LOS, Abdominal ARZ LOS, Abdominal FLA LOS N/A Positron Emission Tomography (PET), Magnetic Resonance Impressions 09/09/2023 2:36 PM MUSEUM EDUCATOR Slight interval enlargement of hepatic, peritoneal, and osseous metastases and stable lymphadenopathy. Narrative 09/09/2023 2:36 PM MUSEUM EDUCATOR EXAM: ??PET MR ABDOMEN FOCUSED WITHOUT AND [...] peritoneal, and osseous metastasesand stable lymphadenopathy. Maureen MONTOYA MRI PROCEDURES * Creatinine, POCT (09/09/2023 10:57 AM MUSEUM EDUCATOR) Only the most recent of2 resultswithin the time period is included. Creatinine, POCT, B 1.1 0.7 - 1.4 mg/dL 09/09/2023 10:59 AM MUSEUM EDUCATOR PCDT Comment: ----ADDITIONAL INFORMATION---- Performed at the Point of Care Blood 09/09/2023 10:5 7 AM MUSEUM EDUCATOR 09/09/2023 10:59 AM MUSEUM EDUCATOR Unknown Provider LAB POCT ORDERABLES - DEVICE POC [facility] [address] [place] [address], [facility] PCDT [facility] [place] POC [address] [place] [address] from Last 3 Months Care Teams Paediatric Thoracic Physician Relationship Specialty Start Date End Date [facility] [place] [address] 05/22/21
--- OUTSIDE RECORDS SUMMARY | 2023-10-01 09:13 | XMS_ITS ---
Author Name Unknown Organization [facility] Address [address] [place] [address] Care Team Providers Care Ship Scraper Name Role Phone Unavailable Unavailable Unavailable Surgery Details Not on file Complications Check Surgery Details section. Procedure Estimated Blood Loss Check Surgery Details section. Procedure Findings Check Surgery Details section. Procedure Specimens Taken Check Surgery Details section.
--- OUTSIDE RECORDS SUMMARY | 2023-10-01 09:14 | XMS_ITS | Encounter Summary ---
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 [address] [place] [address] [facility] Referral ID Status Reason Start Date Expiration Date Visits Re quested Visits Authorized [id number] Closed 03/02/2023 03/01/2024 1 1 Encounter Details Date Type Department Care Team (Latest Contact Info) Description 09/09/2023 10:15 AM ACID ETCH OPERATOR - 09/09/2023 11:59 PM ACID ETCH OPERATOR Hospital Encounter Department of Radiology, [facility] in [place], [place] [address] [place] [address] Maureen Michelle M.D. [address] [place] [address] Carcinoid Tumor Malignant (HCC); Personal History Of Malignant Neoplasm Of Prostate Discharge Disposition: Home or Self Care Social History Tobacco Use Types Packs/Day Years [...] often do you attend chur ch or anabaptism services? More than 4 times per year 09/29/2019 Do you belong to any clubs o r organizations such as zoroastrianism groups, unions, fraternal or athletic groups, or [...] and heating? Not hard at all 09/29/2019 [facility] of Occupat ional Health - Occupational [...] Date Recorded Dental: Regular Dentist Unknown 10/17/19 Education Answer Date Recorded What is the highest level of school you have completed or the highest degree you have received? Master's degree (e.g., MA, MS, Darrin, MEd, VENDER, BERTHA) 09/29/2019 Sex and Gender Information Value Date Recorded Sex Assigned at Male 12/09/2022 3:56 PM CDT Gender Identity Male 02/23/2020 7:33 PM CDT Sexual Orientation Straight 02/23/2020 7: 33 PM CDT documented as of this encounter Medications at Time of Discharge Medication Sig Dispensed Refills Start Date End Date cholecalciferol, vitamin D3, 25 mcg (1,000 Unit) tablet TAKE ONE TABLET BY MOUTH EVERY DAY 0 01/20/2019 octreotide acetate (SANDOSTATIN) 50 mcg/mL (1 mL) injection every 28 (twenty-eight) days. 0 09/19/2019 simethicone (MYLICON) 80 mg chewable tablet Chew 80 mg 3 (three) times a day as needed for flatulence. 0 05/05/2023 05/05/2024 sotalol (BETAPACE) 80 mg tablet 2 (two) times a day. 0 09/21/2019 vitamin A 2,400 mcg (8,000 Unit) capsule Take 2,400 mcg by mouth daily. A couple days a week 0 vitamin E mixed 1,000 unit capsule A couple days per week 0 02/17/2022 warfarin (COUMADIN) 5 mg tablet Take by mouth daily. Takes 5 mg four days per week and 7.5 mg three days per week. 0 01/11/2020 documented as of this encounter Nursing Notes * Noar Amaro RMiguel Angel. - 09/09/2023 12:30 PM CST Eovist administration screening: Has radiologist issued an order for Gadoxetrate Disodium (Eovist)? YES If yes???continue Was eGFR Point of care for MRI scan Protocol reviewed by RN? YES If yes???continue Is patient jaundiced? NO If no???.continue. If yes, notify Radiologists prior to preceeding. Does patient have a total bilirubin documented in the past 30 days in the electronic medical record? NO If yes???continue to next question. If no, continue to administration of medication. If documented in past 30 days, was patient???s bilirubin level less than or equal to 3mg/dL? NA If yes???(or if patient does not have a bilirubin documented) administer medications as ordered andoutlined in medication reference document. ETCH OPERATOR documented in this encounter Plan of Treatment Upcoming Encounters Date Type Department Care Team (Late st Contact Info) Description 12/24/2023 11:15 AM CDT Office Visit Division of Hematology in [place], [place] [address] [place] [address] Maureen Michelle M.D. 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 PET MR ABDOMEN FOCUSED WITHOUT AND WITH IV CONTRAST RAD - Routine (most inpatients and all outpatients) 09/09/2023 1:40 PM ACID ETCH OPERATOR 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 Narrative 09/09/2023 2:36 PM ACID ETCH OPERATOR EXAM: ??PET MR ABDOMEN FOCUSED WITHOUT AND [...] stable lymphadenopathy. Maureen MONTOYA MRI PROCEDURES * PET MR Skull to Thigh Survey DOTATATE (09/09/2023 1:40 PM ACID ETCH OPERATOR) Anatomical Region Laterality Modality Body, Nuclear Medicine PET R ST LOS, PET ARZ LOS, Nuclear Medicine PET FLA LOS, Nuclear Medicine N/A Positron Emission Tomography (PET), Magnetic Resonance Impressions 09/09/2023 2:26 PM ACID ETCH OPERATOR 1. Interval progression since the prior DOTATATE [...] Krenning score: 4 Narrative 09/09/2023 2:26 PM ACID ETCH OPERATOR EXAM: PET MR SKULL TO THIGH SURVEY [...] status post prostatectomy and pelvic lymphadenectomy in 2014. ??Subsequent treatment strategy. The patient reports no [...] intravenous gallium Ga 68 dotatate injection (Ga-68 Stance),5.25 millicurie TECHNIQUE: Ga-68 DOTATATE PET/MRI scan was [...] have an SUV max of 17.9 (whole-body dclus296). Interval increase in tracer avid tumor burden [...] avid foci in the small bowel (whole-body , 237), suspicious for primary small bowel lesions. [...] DOTATATE non-avid metastases. Krenning score: 4 Maureen LEE NM PROCEDURES * Creatinine, POCT (09/09/2023 10:57 AM ACID ETCH OPERATOR) Creatinine, POCT, B 1.1 0.7 - 1.4 mg/dL 09/09/2023 10:59 AM ACID ETCH OPERATOR PCDT Comment: ----ADDITIONAL INFORMATION---- Performed at the Point of Care Blood 09/09/2023 10:5 7 AM ACID ETCH OPERATOR 09/09/2023 10:59 AM ACID ETCH OPERATOR Unknown Provider LAB POCT ORDERABLES - DEVICE Performing Organization Address [facility] de Phone Number [facility] [address] [place], [place] [address] PCDT [facility] POC [address] [place] [address] * Creatinine, POCT (09/09/2023 10:57 AM ACID ETCH OPERATOR) Estimated GFR (eGFR), POCT 68 >=60 mL/min/BSA 09/09/2023 10:59 AM ACID ETCH OPERATOR PCMO Comment: Estimated GFR calculated using the 2020 CKD_EPI creatinine equation. 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 documented in this encounter Administered Medications Inactive Administered Medications - up to 3 most recent administrations Medication Order MAR Action Action Date Dose Rate Site gadoxetate injection 0.1-20 mL (EOVIST) 0.1-20 mL, intravenous, Once in imaging, contrast, Starting on Thu09/09/23 at 1039, For 1 dose, Imaging Protocol Orders, Dose per Radiant Medication Guidelines Given 09/09/2023 1:28 PM ACID ETCH OPERATOR 10 mL gallium Ga 68 dotatate injection (Ga-68 NETSPOT) 2.7-5.4 millicurie, intravenous, Once, On Thu09/09/23 at 1100, For 1 dose, Imaging Protocol Orders, HAZARDOUS - Handle with care Given 09/09/2023 11:22 AM ACID ETCH OPERATOR 5.25 millicuries sodium chloride (PF) 0.9 % injection 1-100 mL 1-100 mL, intravenous, Once, On Thu09/09/23 at 1100, For 1 dose, Imaging Protocol Orders Given 09/09/2023 1:28 PM ACID ETCH OPERATOR 50 mL documented in this encounter Care Teams Paste Mixer Relationship Specialty Start Date End Date [facility] [place] [address] 05/22/21 documented as of this encounter
--- OUTSIDE RECORDS SUMMARY | 2023-10-01 09:14 | XMS_ITS | Encounter Summary ---
Author Name Unknown Organization [facility] Address [address] [place] [address] Care Team Providers Care Airplane Flight Attendant Supervisor Name Role Phone Unavailable Primary Care Provider Unavailabl e Reason for Referral * MRI/CAT/PET Scan (Routine) - Closed Specialty Diagnoses / Procedures Referred By Gayle walsh Referred To Contact Radiology Diagnoses Carcinoid Tumor Malignant (HCC) Procedures CT Chest with IV Contrast Maureen Michelle M.D. [address] [place] [address] [facility] Referral ID Status Reason Start Date Expiration Date Visits Re quested Visits Authorized [id number] Closed 08/04/2022 08/04/2023 1 1 Reason for Visit * MRI/CAT/PET Scan (Routine) - Closed Specialty Diagnoses / Procedures Referred By Gayle walsh Referred To Contact Radiology Diagnoses Carcinoid Tumor Malignant (HCC) Procedures CT Chest with IV Contrast Maureen Michelle M.D. [address] [place] [address] [facility] Referral ID Status Reason Start Date Expiration Date Visits Re quested Visits Authorized [id number] Closed 08/04/2022 08/04/2023 1 1 Encounter Details Date Type Department Care Team (Latest Contact Info) Description 03/02/2023 8:12 AM CDT - 03/02/2023 8:59 AM CDT Hospital Encounter Department of Radiology, [facility] in [place], [place] [address] [place] [address] Maureen Michelle M.D. [address] [place] [address] Carcinoid Tumor Malignant (HCC) Discharge Disposition: Home or Self Care Social [...] often do you attend chur ch or druze services? More than 4 times per year 09/29/2019 Do you belong to any clubs o r organizations such as druze groups, unions, fraternal or athletic groups, or [...] and heating? Not hard at all 09/29/2019 [facility] of Occupat ional Health - Occupational Stress [...] Master's degree (e.g., MA, MS, Darrin, MEd, STAFFING ASSOCIATE, BERTHA) 09/29/2019 Sex and Gender Information Value [...] TABLET BY MOUTH EVERY DAY 0 01/20/2019 fluticasone propionate (FLONASE) 50 mcg/actuation nasal spray SPRAY 2 SPRAYS IN EACH NOSTRIL EVERY DAY USE REGULARLY FOR RELIEF OF ALLERGIES/CONGESTION 0 04/04/2022 octreotide acetate (SANDOSTATIN) 50 mcg/mL (1 mL) injection every 28 (twenty-eight) days. 0 09/19/2019 sotalol (BETAPACE) 80 mg tablet 2 (two) [...] mg three days per week. 0 01/11/2020 SandoSTATIN 50 mcg/mL injection 0 09/02/2019 09/04/2023 SandoSTATIN LAR Dep[place] 20 mg ER injection 0 07/03/2020 3 documented as of this encounter Plan of Treatment Upcoming Encounters Date Type Department Care Team (Late st Contact Info) Description 12/24/2023 11:15 AM CDT Office Visit Division of Hematology in [place], [place] [address] [place] [phone] Maureen Michelle M.D. [address] [place] [address] documented as of this encounter Procedures Procedure Name Priority Date/Time Associated Diagnosis Comments CT CHEST WITH IV CONTRAST RAD - Routine (most inpatients and all outpatients) 03/02/2023 8:50 AM CDT Carcinoid Tumor Malignant (HCC) documented in this encounter Results * CT Chest with IV Contrast (03/02/2023 8:50 AM CDT) Anatomical Region Laterality Modality Chest, Thoracic RST LOS, Tho racic ARZ LOS, Thoracic ARZ LOS, Thoracic FLA LOS N/A Computed Tomography, Compute d Tomography 03/02/2023 8:51 AM CDT Impressions 03/02/2023 9:15 AM CDT 1. ??Multiple bilateral lung nodules are stable. There are no new or enlarging lung nodules. 2. ??Paraesophageal lymph node is larger. 3. ??The numerous sclerotic bone lesions are more conspicuous and denser than before. 4. ??New L1 vertebral body compression deformity. Narrative 03/02/2023 9:15 AM CDT EXAM: CT CHEST WITH IV CONTRAST COMPARISON: 08/04/2022 FINDINGS: Airways, lungs, pleura: Atelectasis is present in the lung bases. Tractor Crane Engineer lung nodules include: * ??4 mm, solid, lateral right middle lobe, (series 3, image 296), stable; * ??Less than 3 mm, solid, apical left upper lobe, (series 3, image 137), stable; * ??6 mm, solid, apical left upper lobe, (series 3, image 153), stable. No new or enlarging lung nodules have developed. Cardiovascular: ??Left atrial enlargement, mitral annulus calcification, aortic valve calcification, coronary artery calcification, and atherosclerotic plaque in the aorta and proximal arch vessels have not changed. No pericardial effusion is present. Lymph nodes: 20 mm x 14 mm paraesophageal lymph node (series 3, image 226) previously measured 15 mm x 13 mm. Left internal mammary lymph node (series 3, image 254) is stable. There are no new enlarged thoracic lymph nodes. Bones and soft tissues: The bones are diffusely demineralized. Compression deformity of the L1 vertebral body, with approximately 50% height loss centrally, is new. Numerous sclerotic bone lesions are more conspicuous and denser, particularly within the manubrium and upper sternal body, multiple ribs, and numerous vertebral bodies. Other: Low-attenuation nodule in right lobe of thyroid is new. Upper abdomen is better assessed on same day MRI abdomen. Procedure Note Kade Ferrara M.D. - 03/02/2023 EXAM: CT CHEST WITH IV CONTRAST COMPARISON: 08/04/2022 FINDINGS: Airways, lungs, pleura: Atelectasis is present in the lung bases.Tractor Crane Engineer lung nodules include: * 4 mm, solid, lateral right middle lobe, (series 3, image 296),stable; * Less than 3 mm, solid, apical left upper lobe, (series 3, image 137),stable; * 6 mm, solid, apical left upper lobe, (series 3, image 153), stable. No new or enlarging lung nodules have developed. Cardiovascular: Left atrial enlargement, mitral annulus calcification,aortic valve calcification, coronary artery calcification, and atherosclerotic plaque in the aorta andproximal arch vessels have not changed. No pericardial effusion is present. Lymph nodes: 20 mm x 14 mm paraesophageal lymph node (series 3, image 226)previously measured 15 mm x 13 mm. Left internal mammary lymph node (series 3, image 254) is stable.There are no new enlarged thoracic lymph nodes. Bones and soft tissues: The bones are diffusely demineralized. Compressiondeformity of the L1 vertebral body, with approximately 50% height loss centrally, is new.Numerous sclerotic bone lesions are more conspicuous and denser, particularly within the manubriumand upper sternal body, multiple ribs, and numerous vertebral bodies. Other: Low-attenuation nodule in right lobe of thyroid is new. Upper abdomen is better assessed on same day MRI abdomen. IMPRESSION: 1. Multiple bilateral lung nodules are stable. There are no new orenlarging lung nodules. 2. Paraesophageal lymph node is larger. 3. The numerous sclerotic bone lesions are more conspicuous and denserthan before. 4. New L1 vertebral body compression deformity. Maureen MONTOYA CT PROCEDURES documented in this encounter Visit Diagnoses Diagnosis Carcinoid Tumor Malignant (HCC) documented in this encounter Administered Medications Inactive Administered Medications - up to 3 most recent administrations Medication Order MAR Action Action Date Dose Rate Site iohexoL 300 mg iodine/mL solution 1-200 mL (OMNIPAQUE) 1-200 mL, intravenous, Once in imaging, contrast, Starting on Thu03/02/23 at 0825, For 1 dose, Imaging Protocol Orders, Dose per Radiant Medication Guidelines Given 03/02/2023 8:43 AM CDT 80 mL documented in this encounter Care Teams Airplane Flight Attendant Supervisor Relationship Specialty Start Date End Date [facility] [address] [place] [address] 05/22/21 documented as of this encounter
--- OUTSIDE RECORDS SUMMARY | 2023-10-01 09:14 | XMS_ITS | Encounter Summary ---
Author Name Unknown Organization [facility] Address [address] [place] [address] Care Team Providers Care Level Vial Marker Name Role Phone Unavailable Primary Care Provider Unavailabl e Reason for Visit * Reason Onset Date Comments Follow-up 09/16/2023 Post procedure f ollow up phone call Encounter Details Date Type Department Care Team ([facility] st Contact Info) Description 09/16/2023 Clinical Communication Department of Radiology, [facility] in [place], [place] [address] [place] [address] Kade Bennett M.D. [address] [place] [phone] Follow-up (Post procedure follow up phone call) Social History Tobacco Use Types Packs/Day Years [...] often do you attend chur ch or confucianist services? More than 4 times per year 09/29/2019 Do you belong to any clubs o r organizations such as methodist groups, unions, fraternal or athletic groups, or [...] and heating? Not hard at all 09/29/2019 [facility] of Occupat ional Health - Occupational Stress [...] Master's degree (e.g., MA, MS, Darrin, MEd, SHIPYARD PAINTER HELPER, BERTHA) 09/29/2019 Sex and Gender Information Value Date Recorded Sex Assigned at Male 12/09/2022 3:56 PM CDT Gender Identity Male 02/23/2020 7:33 PM CDT Sexual Orientation Straight 02/23/2020 7: 33 PM CDT documented as of this encounter Miscellaneous Notes * Telephone Encounter - Jade Mendoza R.N. - 09/16/2023 11:02 AM CARD BRUSHER Information Discussed Post procedure phone call information. Biopsy or procedure performed Liver Date of procedure: 09/15/2023 Performing practitioner: Dr. Bennett, Dr. June Emergent signs and symptoms: Denies emergent signs or symptoms including continuous bleeding from the biopsy/procedure site, new or worsening problems with shortness of breath, or pain at the biopsy/procedure site greater or equal to 6. Non emergent signs/symptoms: Denies non-emergent signs/symptoms including new or increasing rednessor tenderness surrounding the biopsy/procedure site, pain at biopsy/procedure site is unacceptable compared with pre-procedure pain, abnormal warmth/heating from site, new or increasing swelling, andoral temp greater than 100.4 F Other Medical Problems unrelated to biopsy: Pt denies other problems unrelated to biopsy Pt Disposition: Pt denies any biopsy complications. Pt instructed to call primary care for additional concerns PLAN Disposition/Recommendation: self-care . appropriate at this time, patient encouraged to call back with questions Information/Education: patient/caller able to teach back Caller agreeable to plan of care: yes The following references were used: nursing clinical judgement BRUSHER documented in this encounter Plan of Treatment Upcoming Encounters Date Type Department Care Team (Late st Contact Info) Description 12/24/2023 11:15 AM CDT Office Visit Division of Hematology in [place], [place] [address] [place] [address] Maureen Michelle M.D. [address] [place] [address] documented as of this encounter Visit Diagnoses Not on filedocumented in this encounter Care Teams Level Vial Marker Relationship Specialty Start Date End Date [facility] [place] [address] 05/22/21 documented as of this encounter
--- OUTSIDE RECORDS SUMMARY | 2023-10-01 09:14 | XMS_ITS | Encounter Summary ---
Author Name Unknown Organization [facility] Address [address] [place] [address] Care Team Providers Care Office Machine Embossograph Operator Name Role Phone Unavailable Primary Care Provider Unavailabl e Encounter Details Date Type Department Care Team (Late st Contact Info) Description 09/10/2023 Clinical Communication Department of Oncology in [place], [place] [address] [place] [phone] Elly Yi, RMarcianoN. [address] [place] [address] Social History Tobacco Use Types Packs/Day Years [...] often do you attend chur ch or worship services? More than 4 times per year 09/29/2019 Do you belong to any clubs o r organizations such as orthodox groups, unions, fraternal [...] and heating? Not hard at all 09/29/2019 [facility] of Occupat ional Health - Occupational Stress [...] Master's degree (e.g., MA, MS, Darrin, MEd, INDUSTRIAL PROPERTY APPRAISER, BERTHA) 09/29/2019 Sex and Gender Information Value Date Recorded Sex Assigned at Male 12/09/2022 3:56 PM CDT Gender Identity Male 02/23/2020 7:33 PM CDT Sexual Orientation Straight 02/23/2020 7: 33 PM CDT documented as of this encounter Plan of Treatment Upcoming Encounters Date Type Department Care Team (Late st Contact Info) Description 12/24/2023 11:15 AM CDT Office Visit Division of Hematology in [place], [place] [address] [place] [address] Maureen Michelle M.D. [address] [place] [address] documented as of this encounter Visit Diagnoses Not on filedocumented in this encounter Care Teams Office Machine Embossograph Operator Relationship Specialty Start Date End Date [facility] [address] [place] [address] 05/22/21 documented as of this encounter
--- OUTSIDE RECORDS SUMMARY | 2023-10-01 09:14 | XMS_ITS | Encounter Summary ---
Author Name Unknown Organization [facility] Address [address] [place] [id number] Care Team Providers Care Pig Machine Supervisor Name Role Phone Unavailable Primary Care Provider Unavailabl e Reason for Visit * Outpatient (Routine) - Closed Specialty Diagnoses / Procedures Referred By Gayle t Referred To Contact Oncology Maureen Michelle M.D. [address] [place] [phone] [facility] Referral ID Status Reason Start Date Expiration Date Visits Re quested Visits Authorized [id number] Closed 03/02/2023 03/01/2026 1 1 Encounter Details Date Type Department Care Team (Late st Contact Info) Description 09/09/2023 3:30 PM SAS PROGRAMMER Office Visit Department of Oncology in [place], [place] [address] [place] [phone] Maureen Michelle M.D. [address] [place] [address] [phone] Gwendolyn Rao M.D. [address] [place] [phone] Carcinoid Tumor Malignant (HCC) (Primary Dx) Social History Tobacco Use Types Packs/Day Years [...] often do you attend chur ch or christianity services? More than 4 times per year 09/29/2019 Do you belong to any clubs o r organizations such as islam groups, unions, fraternal or athletic groups, or [...] and heating? Not hard at all 09/29/2019 [facility] of Occupat ional Health - Occupational Stress [...] Master's degree (e.g., MA, MS, Darrin, MEd, STEAM ROOM ATTENDANT, BERTHA) 09/29/2019 Sex and Gender Information Value Date Recorded Sex Assigned at Male 12/09/2022 3:56 PM CDT Gender Identity Male 02/23/2020 7:33 PM CDT Sexual Orientation Straight 02/23/2020 7: 33 PM CDT documented as of this encounter Last Filed Vital Signs Vital Sign Reading Time Taken Comments Blood Pressure 107/72 09/09/2023 3:22 PM SAS PROGRAMMER Pulse 94 09/09/2023 3:22 PM SAS PROGRAMMER Temperature 37.3 ??C (99.1 ??F) 09/09/2023 3:22 PM CS T Respiratory Rate 16 09/09/2023 3:22 PM SAS PROGRAMMER Oxygen Saturation 95% 09/09/2023 3:22 PM SAS PROGRAMMER Inhaled Oxygen Concentration - - Weight 98 kg (216 lb 0.8 oz) 09/09/2023 3:22 PM SAS PROGRAMMER Height 177.1 cm (5' 9.72) 09/09/2023 3:22 PM CS T Body Mass Index 31.25 09/09/2023 3:22 PM SAS PROGRAMMER documented in this encounter Progress Notes * Gwendolyn Rao M.D. - 09/09/2023 3:30 PM CST SUBJECTIVE CHIEF COMPLAINT / REASON FOR VISIT Ricky Villeda is a 78 y.o. male who presents for follow-up of neuroendocrine tumor. [facility]IMARY [facility] Primary Staff Oncologist: Dr. Aldridge Supervising Oncologist: Dr. Holloway Primary Fellow: Dr. Contreras HISTORY OF PRESENT ILLNESS Mr. Villeda is a very pleasant 76-year-old [...] Salvage prostatectomy and bilateral pelvic LN dissection (Brewster 3 + 4, extraprostatic extension focally present, pT3N0). On observation since that time. June 2019: Developed frequent episodes of flushing and gnawing abdominal pain. August 2019: Local providers started short-acting octreotide 5 mg 3 times a day. Symptoms improved rapidly. August 26, 2019: Outside CT A/P: Central mesenteric lymphadenopathy, the largest measuring 3.9 x 3.7 cm (previously 4.0 x 3.3 cm on 04/14/2013). The 2nd largest measures 2.1 x 1.4 cm (previously 1.5 x 1.1 cm on 04/14/2013). Enlargement of left para-aortic abdominal lymph nodes, largest measuring 1.7 x 1.3 cm (previously 0.7 x 0.4 cm on 04/14/2013). Development of several small sclerotic lesions throughout the axial skeleton, for example within the superior right iliac crest (series 2 image 458) and within the posterior right sacrum (series 2 image 490). September 20, 2018: Transition to octreotide LAR. Symptoms remained improved. October 11, 2019: Initial evaluation at [facility]. Review of outside DOTATATE scan (10/07/2019) shows slight increase in size of mesenteric mass datingback to initial CT 09/20/2008 with possible primary [...] elevated at 13.2. Chromogranin A was normal. February 20, 2023: Follow up at [facility]. Disease had previously shown improvement/stability on octreotide LAR. MR abdomen now with mildly increasing hepatic, lymph node, and bone disease. INTERVAL HISTORY Mr. Villeda presents with his for follow-up today. In the interim 6 months, he overall reports no major issues. He had one bought of diarrhea last weekend but only lasted about 24 hours. Todaywe discussed the results of his scan below. OBJECTIVE PHYSICAL EXAM Vitals: 09/09/23 1522 BP: 107/72 Pulse: 94 Resp: 16 Temp: 37.3 ??C SpO2: 95% Constitutional: Appears well-developed and well-nourished. In no acute distress. ECOG 0. Skin: Skin is warm and dry. 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 Villeda and his today. MRI shows the following: FINDINGS: Numerous hepatic metastases have increased in [...] pancreas. 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 Normal caliber of the main pancreatic duct. Right renal cyst. Nondilated loops ofbowel. Colonic diverticulosis. IMPRESSION: Slight interval enlargement of hepatic, peritoneal, and osseous metastases and stable lymphadenopathy. We discussed his imaging today, which shows ongoing increase in his hepatic with the predominant liver lesion now 2.4x2.9cm, as well as increasing lymph node, and bone disease. On his last visit, similar enlargement of his lesions were seen and several options discussed including monitoring on octreotide, PRRT, or everolimus. Given the increase in lesion that does meet RECIST criteria, we would favor enrolling him into a trial that is currently open which randomizes patients to either receive PRRT or drug therapy of choice (can be everolimus). He is in excellent shape for his age and this would be a great opportunity. He is very interested. Discussed expected side effects and logistics of both PRRT and everolimus. Also met with application coordinator today Elly Yi. In order to qualify, we will need screening scans and labs to be completed but most of all, we need an updated biopsy sample with a Ki-67 that meets criteria of 15-55%. Today I will order the biopsy. I will follow up the biopsy results. Once those return and if it meets criteria, he will be brought back for follow up with the relevant study screening and to enroll in the study. This was discussed with Dr. Holloway who agrees with the plan PROGRAMMER documented in this encounter Plan of Treatment Upcoming Encounters Date Type Department Care Team (Late st Contact Info) Description 12/24/2023 11:15 AM CDT Office Visit Division of Hematology in [place], [place] [address] [place] [phone] Maureen Michelle M.D. [address] [place] [phone] documented as of this encounter Visit Diagnoses Diagnosis Carcinoid Tumor Malignant (HCC)- Primary documented in this encounter Care Teams Pig Machine Supervisor Relationship Specialty Start Date End Date [facility] [address] [place] [address] 05/22/21 documented as of this encounter
--- OUTSIDE RECORDS SUMMARY | 2023-10-01 09:14 | XMS_ITS | Encounter Summary ---
Author Name Unknown Organization [facility] Address [address] [place] [phone] Care Team Providers Care Case Fitter Name Role Phone Unavailable Primary Care Provider Unavailabl e Reason for Referral * Outpatient (Routine) - Closed Specialty Diagnoses / Procedures Referred By Gayle t Referred To Contact Oncology Gwendolyn Rao M.D. [address] [place] [phone] [facility] Referral ID Status Reason Start Date Expiration Date Visits Re quested Visits Authorized [id number] Closed 09/21/2023 09/20/2026 1 1 Scheduling Instructions 11:45am video KEEPING CLERKS SUPERVISOR Encounter Details Date Type Department Care Team (Late st Contact Info) Description 09/21/2023 Orders Only Department of Oncology in [place], [place] [address] [place] [phone] Gwendolyn Rao M.D. [address] [place] [phone] Social History Tobacco Use Types Packs/Day Years [...] often do you attend chur ch or hindu services? More than 4 times per year 09/29/2019 Do you belong to any clubs o r organizations such as mandaen groups, unions, fraternal [...] and heating? Not hard at all 09/29/2019 [facility] of Occupat ional Health - Occupational [...] Master's degree (e.g., MA, MS, Darrin, MEd, SENIOR ENVIRONMENTAL ENGINEER, BERTHA) 09/29/2019 Sex and Gender Information Value Date Recorded Sex Assigned at Male 12/09/2022 3:56 PM CDT Gender Identity Male 02/23/2020 7:33 PM CDT Sexual Orientation Straight 02/23/2020 7: 33 PM CDT documented as of this encounter Plan of Treatment Upcoming Encounters Date Type Department Care Team (Late st Contact Info) Description 12/24/2023 11:15 AM CDT Office Visit Division of Hematology in [place], [place] [address] [place] [phone] Maureen Michelle M.D. [address] [place] [phone] Scheduled Referrals Name Type Priority Associated Diagnoses Orde r Schedule Oncology office visit (clinic) Outpatient Referral Routine Expected: 09/24/2023, Expires: 12/20/2024 documented as of this encounter Visit Diagnoses Not on filedocumented in this encounter Care Teams Case Fitter Relationship Specialty Start Date End Date [facility] [place] [address] 05/22/21 documented as of this encounter
--- OUTSIDE RECORDS SUMMARY | 2023-10-01 09:14 | XMS_ITS | Encounter Summary ---
Author Name Unknown Organization [facility] Address [address] [place] [address] Care Team Providers Care Lockstitch Topstitcher Name Role Phone Unavailable Primary Care Provider Unavailabl e Reason for Visit * Reason Onset Date Comments Blood Pressure 09/04/2023 Encounter Details Date Type Department Care Team (Latest Contact Info) Description 09/04/2023 8:30 AM FELT WASHING MACHINE TENDER Clinical Communication Virtual Review in [place], [place] [address] [place], [place] [phone] Blood Pressure Social History Tobacco Use Types Packs/Day Years [...] often do you attend chur ch or anglican services? More than 4 times per year 09/29/2019 Do you belong to any clubs o r organizations such as religion groups, unions, fraternal [...] and heating? Not hard at all 09/29/2019 [facility] of Occupat ional Health - Occupational [...] Master's degree (e.g., MA, MS, Darrin, MEd, CAT HOOKER, BERTHA) 09/29/2019 Sex and Gender Information Value Date Recorded Sex Assigned at Male 12/09/2022 3:56 PM CDT Gender Identity Male 02/23/2020 7:33 PM CDT Sexual Orientation Straight 02/23/2020 7: 33 PM CDT documented as of this encounter Plan of Treatment Upcoming Encounters Date Type Department Care Team (Late st Contact Info) Description 12/24/2023 11:15 AM CDT Office Visit Division of Hematology in [place], [place] [address] [place] [phone] Maureen Michelle M.D. [address] [place] [phone] documented as of this encounter Visit Diagnoses Not on filedocumented in this encounter Care Teams Lockstitch Topstitcher Relationship Specialty Start Date End Date [facility] [place] [address] 05/22/21 documented as of this encounter
--- OUTSIDE RECORDS SUMMARY | 2023-10-01 09:14 | XMS_ITS | Encounter Summary ---
Author Name Unknown Organization [facility] Address [address] [place] [address] Care Team Providers Care Charge Entry Specialist Name Role Phone Unavailable Primary Care Provider Unavailabl e Reason for Referral * MRI/CAT/PET Scan (Routine) - Closed Specialty Diagnoses / Procedures Referred By Gayle walsh Referred To Contact Radiology Diagnoses Carcinoid Tumor Malignant (HCC) Procedures MR Abdomen without and with IV Contrast Maureen Michelle M.D. 200 [place] [phone] [facility] Referral ID Status Reason Start Date Expiration Date Visits Re quested Visits Authorized [id number] Closed 08/04/2022 08/04/2023 1 1 Reason for Visit * MRI/CAT/PET Scan (Routine) - Closed Specialty Diagnoses / Procedures Referred By Gayle walsh Referred To Contact Radiology Diagnoses Carcinoid Tumor Malignant (HCC) Procedures MR Abdomen without and with IV Contrast Maureen Michelle M.D. 200 [place] [phone] [facility] Referral ID Status Reason Start Date Expiration Date Visits Re quested Visits Authorized [id number] Closed 08/04/2022 08/04/2023 1 1 Encounter Details Date Type Department Care Team (Latest Contact Info) Description 03/02/2023 6:06 AM CDT - 03/02/2023 8:11 AM CDT Hospital Encounter Department of Radiology, [facility], in [place], [place] [address] [place] [address] Maureen Michelle M.D. 200 [place] [phone] Carcinoid Tumor Malignant (HCC) Discharge Disposition: Home [...] How often do you attend chur or nondenominational services? More than 4 times per year 09/29/2019 Do you belong to any clubs o r organizations such as hinduism groups, unions, fraternal [...] and heating? Not hard at all 09/29/2019 [facility] of Occupat ional Health - Occupational Stress [...] Master's degree (e.g., MA, MS, Darrin, MEd, GLOBAL COMPENSATION DIRECTOR, BERTHA) 09/29/2019 Sex and Gender Information Value [...] 07/03/2020 3 documented as of this encounter Nursing Notes * Hermila Tovar R.N. - 03/02/2023 6:45 AM CDT Outpatient, keeping PIV in for later exam or refused to keep in for later exam requiring PIV: Is PIV being left in? YES If no, did patient refuse? NO Why is PIV being left in? Another procedure/exam scheduled for today which requires a PIV Name and role of person notified in receiving area: updated in appointment notes documented in this encounter Plan of Treatment Upcoming Encounters Date Type Department Care Team (Late st Contact Info) Description 12/24/2023 11:15 AM CDT Office Visit Division of Hematology in [place], [place] [address] [place] [phone] Maureen Michelle M.D. [address] [place] [phone] Scheduled Orders Name Type Priority Associated Diagnoses Orde r Schedule Creatinine, POCT Point of Care Testing-Docked Device Routine Routine lab collecti on (next collection) for 1 Occurrences starting 03/02/2023 until 03/02/2023 documented as of this encounter Procedures Procedure Name Priority Date/Time Associated Diagnosis Comments MR ABDOMEN WITHOUT AND WITH IV CONTRAST RAD - Routine (most inpatients and all outpatients) 03/02/2023 7:38 AM CDT Carcinoid Tumor Malignant (HCC) CREATININE, POCT, B Routine 03/02/2023 6:24 AM CDT CREATININE, POCT, B Routine 03/02/2023 6:24 AM CDT documented in this encounter Results * MR Abdomen without and with IV Contrast (03/02/2023 7:38 AM CDT) Anatomical Region Laterality Modality Abdomen, Abdominal RST LOS, Abdominal ARZ LOS, Abdominal FLA LOS N/A Magnetic Resonance 03/02/2023 8:45 AM CDT Impressions 03/02/2023 9:42 AM CDT Mildly increased size of neuroendocrine metastases in the liver, lymph nodes and bones. Narrative 03/02/2023 9:42 AM CDT EXAM: ??MR ABDOMEN WITHOUT AND WITH IV CONTRAST COMPARISON: ??Multiple abdominal MRIs, the most recent 08/04/2022 FINDINGS: ??Multiple sequences are degraded due to respiratory motion. Increased size of the multiple (at least 10) hepatic metastases. For reference, a 1.8 x 1.6 cm mass at the hepatic dome (series 15, image 22) was previously 1.2 x 1.1 cm. Another mass in segment 7 measures 1.6 x 1.6 cm (image 34), previously 1.1 x 1.3 cm. A smaller mass in the left hepatic lobe measures 6 mm (image 49), previously 5 mm. Increased abdominal lymphadenopathy. For example, a right retrocrural node now measures 1.2 cm (series 10, image 54), previously 0.8 cm. Two adjacent left para-aortic nodes now measures up to 2.8 x 1.4 cm (image 83), previously 2.6 x 1.4 cm. A lobulated mesenteric node now measures 1.3 cm short axis (image 89), previously 1.1 cm. The large right mesenteric mass measures 3.9 cm in short axis (series 13, image 133), previously 2.76 Multiple osseous metastases also minimally increased in size. For example, a right paraspinal mass now measures 2.6 x 1.3 cm (series 10, image 43) and previously 2.5 x 1.1 cm. Diffuse fatty atrophy of the pancreas. Multiple tiny pancreatic cystic lesions measuring up to 0.8 cm are similar. Normal caliber of the main pancreatic duct. The adrenal glands and spleen are normal. Bilateral renal cysts. Procedure Note Kade Bennett M.D. - 03/02/2023 EXAM: MR ABDOMEN WITHOUT AND WITH IV CONTRAST COMPARISON: Multiple abdominal MRIs, the most recent 08/04/2022 FINDINGS: Multiple sequences are degraded due to respiratory motion. Increased size of the multiple (at least 10) hepatic metastases. Forreference, a 1.8 x 1.6 cm mass at the hepatic dome (series 15, image 22) was previously 1.2 x 1.1 cm.Another mass in segment 7 measures 1.6 x 1.6 cm (image 34), previously 1.1 x 1.3 cm. A smaller massin the left hepatic lobe measures 6 mm (image 49), previously 5 mm. Increased abdominal lymphadenopathy. For example, a right retrocrural nodenow measures 1.2 cm (series 10, image 54), previously 0.8 cm. Two adjacent left para-aorticnodes now measures up to 2.8 x 1.4 cm (image 83), previously 2.6 x 1.4 cm. A lobulated mesenteric nodenow measures 1.3 cm short axis (image 89), previously 1.1 cm. The large right mesenteric massmeasures 3.9 cm in short axis (series 13, image 133), previously 2.76 Multiple osseous metastases also minimally increased in size. For example,a right paraspinal mass now measures 2.6 x 1.3 cm (series 10, image 43) and previously 2.5 x 1.1cm. Diffuse fatty atrophy of the pancreas. Multiple tiny pancreatic cysticlesions measuring up to 0.8 cm are similar. Normal caliber of the main pancreatic duct. The adrenal glands and spleen are normal. Bilateral renal cysts. IMPRESSION: Mildly increased size of neuroendocrine metastases in the liver, lymphnodes and bones. Maureen Michelle M.D. [facility] [place]ED[place] * Creatinine, POCT (03/02/2023 6:24 AM CDT) Creatinine, POCT, B 1.1 0.7 - 1.4 mg/dL 03/02/2023 6:26 AM CDT PCDT Comment: ----ADDITIONAL INFORMATION---- Performed at the Point of Care Blood 03/02/2023 6:24 AM CDT 03/02/2023 6:27 AM CDT Unknown Provider LAB POCT ORDERABLES - DEVICE Performing Organization Address [facility] de Phone Number [facility] PERFORMING LABS [address] [place] [address], [facility] PCDT [facility] POC [address] [place] [address] * Creatinine, POCT (03/02/2023 6:24 AM CDT) [facility] Estimated GFR (eGFR), POCT 69 >=60 mL/min/BSA 03/02/2023 6:27 AM CDT PCMO Comment: Estimated GFR calculated using the 2020 CKD_EPI creatinine equation. Blood 03/02/2023 6:24 AM CDT 03/02/2023 6:27 AM CDT Unknown Provider LAB POCT ORDERABLES - DEVICE Performing Organization Address [facility] de Phone Number [facility] [address] [place] [address], [facility] PCMO [facility] POC [address] [place] [phone] documented in this encounter Visit Diagnoses Diagnosis Carcinoid Tumor Malignant (HCC) documented in this encounter Administered Medications Inactive Administered Medications - up to 3 most recent administrations Medication Order MAR Action Action Date Dose Rate Site gadoxetate injection 0.1-20 mL (EOVIST) 0.1-20 mL, intravenous, Once, On Thu03/02/23 at 0630, For 1 dose, Imaging Protocol Orders, Dose per Radiant Medication Guidelines Given 03/02/2023 7:17 AM CDT 10 mL sodium chloride (PF) 0.9 % injection 1-100 mL 1-100 mL, intravenous, Once, On 03/02/23 at 0630, For 1 dose, Imaging Protocol Orders Given 03/02/2023 7:17 AM CDT 50 mL documented in this encounter Care Teams Charge Entry Specialist Relationship Specialty Start Date End Date [facility] [address] [place] [address] 05/22/21 documented as of this encounter
--- OUTSIDE RECORDS SUMMARY | 2023-10-01 09:14 | XMS_ITS | Encounter Summary ---
Author Name Unknown Organization [facility] Address [address] [place] [address] Care Team Providers Care Plant Operator/Shift Supervisor Name Role Phone Unavailable Primary Care Provider Unavailabl e Reason for Referral * Outpatient (Routine) - Closed Specialty Diagnoses / Procedures Referred By Gayle walsh Referred To Contact Radiology Diagnoses 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 Procedures PET MR Abdomen Focused Without and With IV Contrast Maureen Michelle M.D. [address] [place] [phone] [facility] Referral ID Status Reason Start Date Expiration Date Visits Re quested Visits Authorized [id number] Closed 03/02/2023 03/01/2024 1 1 * Outpatient (Routine) - Authorized Specialty Diagnoses / Procedures Referred By Gayle walsh Referred To Contact Diagnoses 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 Procedures PET MR Skull to Thigh Survey DOTATATE Maureen Michelle M.D. [address] [place] [address] [facility] Referral ID Status Reason Start Date Expiration Date V isits Requested Visits Authorized [id number] Authorized 03/02/2023 03/01/2024 6 6 * Outpatient (Routine) - Closed Specialty Diagnoses / Procedures Referred By Gayle walsh Referred To Contact Oncology Maureen Michelle M.D. [address] [place] [phone] [facility] Referral ID Status Reason Start Date Expiration Date Visits Re quested Visits Authorized [id number] Closed 03/02/2023 03/01/2026 1 1 Scheduling Instructions Okay for 4-6 months, thank you Reason for Visit * Outpatient (Routine) - Closed Specialty Diagnoses / Procedures Referred By Gayle walsh Referred To Contact Oncology Maureen Michelle M.D. [address] [place] [phone] [facility] Referral ID Status Reason Start Date Expiration Date Visits Re quested Visits Authorized [id number] Closed 08/04/2022 08/03/2025 1 1 Encounter Details Date Type Department Care Team (Late st Contact Info) Description 03/02/2023 1:30 PM CDT Office Visit Department of Oncology in [place], [place] [address] [place] [phone] Maureen Michelle M.D. [address] [place] [phone] Carcinoid Tumor Malignant (HCC) (Primary Dx); Personal History Of Malignant Neoplasm Of Prostate; Metastatic Cancer (HCC) Social History Tobacco Use Types Packs/Day Years [...] week 09/29/2019 How often do you attend [facility] or anglican services? More than 4 times per year 09/29/2019 Do you belong to any clubs o r organizations such as anabaptist groups, unions, fraternal or athletic groups, or [...] and heating? Not hard at all 09/29/2019 [facility]at [facility] - Occupational Stress Questionnaire Answer Date Recorded [...] Master's degree (e.g., MA, MS, Darrin, MEd, GRINDER SETUP OPERATOR, BERTHA) 09/29/2019 Sex and Gender Information Value Date Recorded Sex Assigned at Male 12/09/2022 3:56 PM CDT Gender Identity Male 02/23/2020 7:33 PM CDT Sexual Orientation Straight 02/23/2020 7: 33 PM CDT documented as of this encounter Last Filed Vital Signs Vital Sign Reading Time Taken Comments Blood Pressure 109/70 03/02/2023 1:26 PM CDT Pulse 79 03/02/2023 1:26 PM CDT Temperature 36.9 ??C (98.4 ??F) 03/02/2023 1:26 PM CD T Respiratory Rate 17 03/02/2023 1:26 PM CDT Oxygen Saturation 95% 03/02/2023 1:26 PM CDT Inhaled Oxygen Concentration - - Weight 98.4 kg (216 lb 14.9 oz) 03/02/2023 1:26 PM CDT Height 176.9 cm (5' 9.65) 03/02/2023 1:26 PM CD T Body Mass Index 31.44 03/02/2023 1:26 PM CDT documented in this encounter Progress Notes * Maureen Contreras M.D. - 03/02/2023 1:30 PM CDT SUBJECTIVE CHIEF COMPLAINT / REASON FOR VISIT Ricky Villeda is a 77 y.o. male who presents for follow-up of neuroendocrine tumor. [facility] Primary Staff Oncologist: Dr. Aldridge Supervising Oncologist: Dr. Aldridge Primary Fellow: Dr. Contreras HISTORY OF PRESENT [...] improved. October 11, 2019: Initial evaluation at [facility]. Review of outside DOTATATE scan (10/07/2019) shows [...] normal. February 20, 2023: Follow up at [facility]. Disease had previously shown improvement/stability on octreotide LAR. MR abdomen now with mildly increasing hepatic, lymph node, and bone disease. INTERVAL HISTORY Mr. Villeda presents with his for follow-up today. In the interim 6 months, he overall reports no major issues. He has had some worsening lower back pain, and had an MRI spine for this purpose. This showed the following: Numerous marrow replacing lesions throughout the lumbar spine, sacrum, and iliac bones consistent with osseous metastases. Pathologic acute L1 superior endplate compression fracture without retropulsion. 35% loss of vertebral body height. Chronic left L2 and L3 superior endplate compression fractures. No significant spinal canal stenosis or neural foramen narrowing. 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 He has since been working with PT and has a back brace, and notes slow but steady progress over thepast 4 months. Regarding the remainder of his symptoms, he has occasional irregularities bowel patterns. He will have 1 normal bowel movement in the morning; approximately 2 hours later, this will be followed by bowel urgency, and he will have a half formed stool. Otherwise, he notes occasional flushing after eating, but denies any other bothersome symptoms. He reports that his octreotide LAR was increased from20 mg to 30 mg just last week, although he is not noticed any differences in his symptoms thus far. OBJECTIVE PHYSICAL EXAM Vitals: 03/02/23 1326 BP: 109/70 Pulse: 79 Resp: 17 Temp: 36.9 ??C SpO2: 95% Constitutional General: He is not in acute distress. Appearance: He is normal weight. He is not toxic-appearing. HENT Head: Normocephalic and atraumatic. Eyes Extraocular Movements: Extraocular movements intact. Conjunctiva/sclera: Conjunctivae normal. Pulmonary Effort: Pulmonary effort is normal. Breath sounds: Normal breath sounds. Abdominal General: Abdomen is flat. Palpations: Abdomen is soft. Skin General: Skin is warm and dry. Findings: No rash. Neurological General: No focal deficit present. Spine: No tenderness to palpation from cervical region to lower lumbar region in vertebral area. Mental Status: He is alert and oriented to person, place, and time. Psychiatric Mood and Affect: Mood normal. Behavior: Behavior normal. Thought Content: Thought content normal. Judgment: Judgment normal. 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 Villeda and his today. We are glad to see that he overall continues to do well from a symptomatic standpoint. We discussed his imaging today, which shows a slight increase in his hepatic, lymph node, and bone disease. On review of the imaging, despite the increase from before, continues to have a fairly low burden of disease. We discussed various treatment options at this time. Given he has tolerated octreotide very well and is not struggling with symptoms, and given the increase in his disease is quite small over 6 month period, we discussed that it would be reasonable to continue on octreotide at this point, with dose increases as dictated by his symptoms. We discussed that a 2nd treatment option would be PRRT, although it would be helpful to have repeatPET Dotatate imaging beforehand to assess his Krenning score (he was a Krenning score of 4 at diagnosis) and verify his eligibility for this treatment. Lastly, we discussed a 3rd treatment option of everolimus. We did review that PRRT and everolimus have some benefit over octreotide, delaying time to progression to roughly 28-30 months (as opposed to 8-10 months with octreotide). There are no clear survivalbenefits in the literature, although this is hard to interpret. We did also discuss very briefly the logistics of PRRT, which would have to be facilitated through our Nuclear Medicine department. He and his have elected to continue on octreotide at this time with close monitoring. We will plan to repeat imaging in 4-6 months with PET MR DOTATATE at that time, and can discuss if we need to pivot to an alternative treatment strategy at that time. They were amenable with this plan. Lastly, regarding his back pain and compression fractures, I agree that ongoing PT and supportive management is reasonable. It may be worth assessing for osteoporosis with DEXA scan and measurement of vitamin D and calcium levels, which can be done on an outpatient basis if desired. I will have a copy of these notes sent to his local oncologist, Dr. Immanuel Turk, and am happy to discuss any ofthe above items further as needed. Maureen Contreras M.D. Hematology/Oncology PGY-4 documented in this encounter Plan of Treatment Upcoming Encounters Date Type Department Care Team (Late st Contact Info) Description 12/24/2023 11:15 AM CDT Office Visit Division of Hematology in [place], [place] [address] [place] [phone] Maureen Michelle M.D. [address] [place] [phone] Scheduled Referrals Name Type Priority Associated Diagnoses Orde r Schedule Oncology office visit (clinic) General; GI Net Outpatient Referral Routine Expected: 09/01/2023 (Approximate), Expires: 06/02/2024 documented as of this encounter Results * Comprehensive Metabolic Panel (09/09/2023 1:45 PM BUSINESS SUPERVISOR) Pathologist [facility] Potassium, S 4.6 3.6 - 5.2 mmol/L 09/09/2023 2:47 PM BUSINESS SUPERVISOR DTL Sodium, S 143 135 - 145 mmol/L 09/09/2023 2:47 PM BUSINESS SUPERVISOR DTL Chloride, S 104 98 - 107 mmol/L 09/09/2023 2:47 PM BUSINESS SUPERVISOR DTL Bicarbonate, S 27 22 - 29 mmol/L 09/09/2023 2:47 PM BUSINESS SUPERVISOR DTL Anion Gap 12 7 - 15 09/09/2023 2:47 PM BUSINESS SUPERVISOR DTL BUN (Blood Urea Nitrogen), S 13 8 - 24 mg/dL 09/09/2023 2:47 PM BUSINESS SUPERVISOR DTL Creatinine 1.10 0.74 - 1.35 mg/dL 09/09/2023 2:47 PM BUSINESS SUPERVISOR DTL Estimated GFR (eGFR) 68 >=60 mL/min/BS A 09/09/2023 2:47 PM BUSINESS SUPERVISOR DTL Comment: Estimated GFR calculated using the 2020 CKD_EPI creatinine equation. Calcium, Total, S 9.1 8.8 - 10.2 mg/dL 09/09/2023 2:47 PM BUSINESS SUPERVISOR DTL Glucose, S 101 70 - 140 mg/dL 09/09/2023 2:47 PM BUSINESS SUPERVISOR DTL Protein, Total, S 6.6 6.3 - 7.9 g/dL 09/09/2023 2:47 PM BUSINESS SUPERVISOR DTL Albumin, S 4.1 3.5 - 5.0 g/dL 09/09/2023 2:47 PM BUSINESS SUPERVISOR DTL Aspartate Aminotransferase (AST), S 36 8 - 48 U/L 09/09/2023 2:47 PM BUSINESS SUPERVISOR DTL Alkaline Phosphatase, S 82 40 - 129 U/L 09/09/2023 2:47 PM BUSINESS SUPERVISOR DTL Alanine Aminotransferase (ALT), S 31 7 - 55 U/L 09/09/2023 2:47 PM BUSINESS SUPERVISOR DTL Bilirubin, Total, S 0.8 0.0 - 1.2 mg/dL 09/09/2023 2:47 PM BUSINESS SUPERVISOR DTL Blood (Blood, Venous) 09/09/2023 1:45 PM BUSINESS SUPERVISOR 09/09/2023 2:27 PM BUSINESS SUPERVISOR Maureen Michelle M.D. LAB BLOOD ADD-ON [place] [address] [place] [address], [facility] [address] [place] [address] * (ABNORMAL) CBC with Differential, Blood (09/09/2023 1:45 PM BUSINESS SUPERVISOR) Hemoglobin 15.0 13.2 - 16.6 g/dL 09/09/2023 2:27 PM BUSINESS SUPERVISOR DTL Hematocrit 43.4 38.3 - 48.6 % 09/09/2023 2:27 PM BUSINESS SUPERVISOR DTL Erythrocytes 4.40 4.35 - 5.65 x10(12)/L 09/09/2023 2:27 PM BUSINESS SUPERVISOR DTL MCV 98.6(H) 78.2 - 97.9 fL 09/09/2023 2:27 PM BUSINESS SUPERVISOR DTL RBC Distrib Width 12.5 11.8 - 14.5 % 09/09/2023 2:27 PM BUSINESS SUPERVISOR DTL Platelet Count 211 135 - 317 x10(9)/L 09/09/2023 2:27 PM BUSINESS SUPERVISOR DTL Leukocytes 3.7 3.4 - 9.6 x10(9)/L 09/09/2023 2:27 PM BUSINESS SUPERVISOR DTL Neutrophils 1.62 1.56 - 6.45 x10(9)/L 09/09/2023 2:27 PM BUSINESS SUPERVISOR DHPM Lymphocytes 1.34 0.95 - 3.07 x10(9)/L 09/09/2023 2:27 PM BUSINESS SUPERVISOR DTL Monocytes 0.50 0.26 - 0.81 x10(9)/L 09/09/2023 2:27 PM BUSINESS SUPERVISOR DTL Eosinophils 0.18 0.03 - 0.48 x10(9)/L 09/09/2023 2:27 PM BUSINESS SUPERVISOR DTL Basophils <0.03 0.01 - 0.08 x10(9)/L 09/09/2023 2:27 PM BUSINESS SUPERVISOR DTL Blood (Blood, Venous) 09/09/2023 1:45 PM BUSINESS SUPERVISOR 09/09/2023 2:17 PM BUSINESS SUPERVISOR Maureen Michelle M.D. LAB BLOOD ADD-ON [facility] [address] [place] [address], [facility] DTL [facility] [place] [place] [address] [place] [address] DHPM [facility] [place] [facility] [place] [address] [place] [address] * PET MR Abdomen Focused Without and With IV Contrast (09/09/2023 1:40 PM BUSINESS SUPERVISOR) Anatomical Region Laterality Modality Abdomen, Abdominal RST LOS, PET ARZ LOS, Abdominal ARZ LOS, Abdominal FLA LOS N/A Positron Emission Tomography (PET), Magnetic Resonance Impressions 09/09/2023 2:36 PM BUSINESS SUPERVISOR Slight interval enlargement of hepatic, peritoneal, and osseous metastases and stable lymphadenopathy. Narrative 09/09/2023 2:36 PM BUSINESS SUPERVISOR EXAM: ??PET MR ABDOMEN FOCUSED WITHOUT [...] loops of bowel. Colonic diverticulosis. Procedure Note oTva Leroy M.D. - 09/09/2023 EXAM: PET MR [...] osseous metastasesand stable lymphadenopathy. Maureen Michelle M.D. [facility]EDURES * PET MR Skull to Thigh Survey DOTATATE (09/09/2023 1:40 PM BUSINESS SUPERVISOR) Anatomical Region Laterality Modality Body, Nuclear Medicine PET R ST LOS, PET ARZ LOS, Nuclear Medicine PET FLA LOS, Nuclear Medicine N/A Positron Emission Tomography (PET), Magnetic Resonance Impressions 09/09/2023 2:26 PM BUSINESS SUPERVISOR 1. Interval progression since the prior [...] Krenning score: 4 Narrative 09/09/2023 2:26 PM BUSINESS SUPERVISOR EXAM: PET MR SKULL TO THIGH [...] have an SUV max of 17.9 (whole-body [id number]). Interval increase in tracer avid tumor burden [...] Krenning score: 4 Maureen MONTOYA NM PROCEDURES documented in this encounter Visit Diagnoses Diagnosis Carcinoid Tumor Malignant (HCC)- Primary Personal History Of Malignant Neoplasm Of Prostate Metastatic Cancer (HCC) 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 documented in this encounter Care Teams Plant Operator/Shift Supervisor Relationship Specialty Start Date End Date [facility] [place] [address] 05/22/21 documented as of this encounter
--- OUTSIDE RECORDS SUMMARY | 2023-10-01 09:14 | XMS_ITS | Encounter Summary ---
Author Name Unknown Organization [facility] Address [address] [place] [address] Care Team Providers Care Stone Polisher Hand Name Role Phone Unavailable Primary Care Provider Unavailabl e Encounter Details Date Type Department Care Team (Latest Contact Info) Description 03/02/2023 9:00 AM CDT - 03/02/2023 11:59 PM CDT Hospital Encounter Department of Laboratory Medicine and Pathology, [facility] in [place], [place] [address] [place] [address] Maureen Michelle M.D. [address] [place] [address] Carcinoid Tumor Malignant (HCC) Discharge Disposition: Home [...] often do you attend chur ch or uatsdin services? More than 4 times per year 09/29/2019 Do you belong to any clubs o r organizations such as yazidism groups, unions, fraternal or athletic groups, or [...] and heating? Not hard at all 09/29/2019 [facility] [place] of Occupat ional Health - Occupational Stress [...] Master's degree (e.g., MA, MS, Darrin, MEd, FARM IMPLEMENT ENGINE MECHANIC, BERTHA) 09/29/2019 Sex and Gender Information Value [...] CDT Office Visit Division of Hematology in [place], [place] [address] [place] [phone] Maureen Michelle M.D. [address] [place] [address] documented as of this encounter Procedures Procedure Name Priority Date/Time Associated Diagnosis Comments CBC WITH DIFFERENTIAL, B Routine 03/02/2023 9:23 AM CDT Carcinoid Tumor Malignant (HCC) COMPREHENSIVE METABOLIC PANEL, S/P Routine 03/02/2023 9:23 AM CDT Carcinoid Tumor Malignant (HCC) documented in this encounter Results * (ABNORMAL) Comprehensive Metabolic Panel (03/02/2023 9:23 AM CDT) Pathologist [facility] Potassium, S 5.0 3.6 - 5.2 mmol/L 03/02/2023 10:25 AM CDT DTL Sodium, S 139 135 - 145 mmol/L 03/02/2023 10:25 AM CDT DTL Chloride, S 103 98 - 107 mmol/L 03/02/2023 10:25 AM CDT DTL Bicarbonate, S 27 22 - 29 mmol/L 03/02/2023 10:25 AM CDT DTL Anion Gap 9 7 - 15 03/02/2023 10:25 AM CDT DTL BUN (Blood Urea Nitrogen), S 16 8 - 24 mg/dL 03/02/2023 10:25 AM CDT DTL Creatinine 1.14 0.74 - 1.35 mg/dL 03/02/2023 10:25 AM CDT DTL Estimated GFR (eGFR) 66 >=60 mL/min/BS A 03/02/2023 10:25 AM CDT DTL Comment: Estimated GFR calculated using the 2020 CKD_EPI creatinine equation. Calcium, Total, S 8.8 8.8 - 10.2 mg/dL 03/02/2023 10:25 AM CDT DTL Glucose, S 173(H) 70 - 140 mg/dL 03/02/2023 10:25 AM CDT DTL Protein, Total, S 6.2(L) 6.3 - 7.9 g/dL 03/02/2023 10:25 AM CDT DTL Albumin, S 4.0 3.5 - 5.0 g/dL 03/02/2023 10:25 AM CDT DTL Aspartate Aminotransferase (AST), S 20 8 - 48 U/L 03/02/2023 10:25 AM CDT DTL Alkaline Phosphatase, S 86 40 - 129 U/L 03/02/2023 10:25 AM CDT DTL Alanine Aminotransferase (ALT), S 14 7 - 55 U/L 03/02/2023 10:25 AM CDT DTL Bilirubin, Total, S 0.9 <=1.2 mg/dL 03/02/2023 10:25 AM CDT DTL Blood (Blood, Venous) 03/02/2023 9:23 AM CDT 03/02/2023 9:58 AM CDT Maureen Michelle M.D. LAB BLOOD ADD-ON [facility] [address] [place] [address], [facility] [address] [place] [address] * (ABNORMAL) CBC with Differential, Blood (03/02/2023 9:23 AM CDT) Hemoglobin 13.8 13.2 - 16.6 g/dL 03/02/2023 10:13 AM CDT DTL Hematocrit 41.0 38.3 - 48.6 % 03/02/2023 10:13 AM CDT DTL Erythrocytes 4.14(L) 4.35 - 5.65 x10(12)/L 03/02/2023 10:13 AM CDT DTL MCV 99.0(H) 78.2 - 97.9 fL 03/02/2023 10:13 AM CDT DTL RBC Distrib Width 12.2 11.8 - 14.5 % 03/02/2023 10:13 AM CDT DTL Platelet Count 212 135 - 317 x10(9)/L 03/02/2023 10:13 AM CDT DTL Leukocytes 4.3 3.4 - 9.6 x10(9)/L 03/02/2023 10:13 AM CDT DTL Neutrophils 2.25 1.56 - 6.45 x10(9)/L 03/02/2023 10:13 AM CDT DTL Lymphocytes 1.18 0.95 - 3.07 x10(9)/L 03/02/2023 10:13 AM CDT DTL Monocytes 0.60 0.26 - 0.81 x10(9)/L 03/02/2023 10:13 AM CDT DTL Eosinophils 0.23 0.03 - 0.48 x10(9)/L 03/02/2023 10:13 AM CDT DTL Basophils 0.03 0.01 - 0.08 x10(9)/L 03/02/2023 10:13 AM CDT DTL Blood (Blood, Venous) 03/02/2023 9:23 AM CDT 03/02/2023 9:47 AM CDT Maureen Michelle M.D. LAB BLOOD ADD-ON [facility] [address] [place] [address], [facility]TT[facility] [address] [place] [address] documented in this encounter Visit Diagnoses Diagnosis Carcinoid Tumor Malignant (HCC) documented in this encounter Care Teams Stone Polisher Hand Relationship Specialty Start Date End Date [facility] [address] [place] [address] 05/22/21 documented as of this encounter
--- OUTSIDE RECORDS SUMMARY | 2023-10-01 09:14 | XMS_ITS | Encounter Summary ---
Author Name Unknown Organization [facility] Address [address] [place] [address] Care Team Providers Care Gas Shovel Operator Name Role Phone Unavailable Primary Care Provider Unavailabl e Reason for Referral * MRI/CAT/PET Scan (Routine) - Authorized Specialty Diagnoses / Procedures Referred By Contac t Referred To Contact Radiology Diagnoses Carcinoid Tumor Malignant (HCC) Procedures MR Abdomen without and with IV Contrast Gwendolyn Rao M.D. [address] [place] [address] [facility] Referral ID Status Reason Start Date Expiration Date V isits Requested Visits Authorized [id number] Authorized 09/24/2023 09/23/2024 1 1 STANT NURSE MANAGER * MRI/CAT/PET Scan (Routine) - Authorized Specialty Diagnoses / Procedures Referred By Contac t Referred To Contact Radiology Diagnoses Carcinoid Tumor Malignant (HCC) Procedures CT Chest with IV Contrast Gwendolyn Rao M.D. [address] [place] [address] [facility] Referral ID Status Reason Start Date Expiration Date V isits Requested Visits Authorized [id number] Authorized 09/24/2023 09/23/2024 1 1 STANT NURSE MANAGER * Outpatient (Routine) - Authorized Specialty Diagnoses / Procedures Referred By Contac t Referred To Contact Oncology Gwendolyn Rao M.D. [address] [place] [address] [facility] Referral ID Status Reason Start Date Expiration Date V isits Requested Visits Authorized [id number] Authorized 09/24/2023 09/23/2026 [address] Chanda Michelle (previously Audil) - if she is not available with [facility] STANT NURSE MANAGER Reason for Visit * Outpatient (Routine) - Closed Specialty Diagnoses / Procedures Referred By Contac t Referred To Contact Oncology Gwendolyn Rao M.D. [address] [place] [address] [facility] Referral ID Status Reason Start Date Expiration Date Visits Re quested Visits Authorized [id number] Closed 09/21/2023 09/20/2026 1 1 Encounter Details Date Type Department Care Team (Late st Contact Info) Description 09/24/2023 11:45 AM ASSISTANT NURSE MANAGER Telemedicine Department of Oncology in [place], [place] [address] [place] [address] Gwendolyn Rao M.D. [address] [place] [phone] Carcinoid Tumor Malignant (HCC) (Primary Dx) Social [...] How often do you attend chur or advent services? More than 4 times per year 09/29/2019 Do you belong to any clubs o r organizations such as caodaism groups, unions, fraternal or athletic groups, or [...] and heating? Not hard at all 09/29/2019 [facility] of Occupat ional Health - Occupational Stress [...] Master's degree (e.g., MA, MS, Darrin, MEd, [employer], BERTHA) 09/29/2019 Sex and Gender Information Value Date Recorded Sex Assigned at Male 12/09/2022 3:56 PM CDT Gender Identity Male 02/23/2020 7:33 PM CDT Sexual Orientation Straight 02/23/2020 7: 33 PM CDT documented as of this encounter Progress Notes * Gwendolyn Rao M.D. - 09/24/2023 11:45 AM CST BRIEF DOCUMENTATION I had a video follow up with Mr. Villeda. 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 The last few scans have had very slowly progressing liver lesions primarily, the dominant lesion meeting RECIST criteria for progression. He was a potential candidate to enroll in our study for PRRT vs everolimus trial but unfortunately his repeat biopsy didnot meet Ki-67 criteria. I discussed this with the patient today and he is understandably disappointed. My recommendation is still to opt for either of these therapies on an off trial basis. My preference is PRRT. The patient would like to ponder this further and is not yet ready to make this decision,he would also like to see if the [facility] would cover this treatment. He will get back to us. In the meantime, it is reasonable given the biology of tumor to have him continue Octreotide for now and return in 3 months with repeat scans. At that time I would again re discuss PRRT as he is a candidate offtrial given Krenning score of 4. Orders Placed This Encounter Procedures CT Chest with IV Contrast MR Abdomen without and with IV Contrast CBC with Differential, Blood Comprehensive Metabolic Panel Oncology office visit (clinic) STANT NURSE MANAGER documented in this encounter Plan of Treatment Upcoming Encounters Date Type Department Care Team (Late st Contact Info) Description 12/24/2023 11:15 AM CDT Office Visit Division of Hematology in [place], [place] [address] [place] [address] Maureen Michelle M.D. [address] [place] [address] Scheduled Orders Name Type Priority Associated Diagnoses Order Schedule CBC with Differential, Blood Lab Routine Carcinoid Tumor Malignant (HCC) Expected: 12/24/2023 (Approximate), Expires: 12/23/2024 Comprehensive Metabolic Panel Lab Routine Carcinoid Tumor Malignant (HCC) Expected: 12/24/2023 (Approximate), Expires: 12/23/2024 CT Chest with IV Contrast Imaging RAD - Routine (most inpatients and all outpatients) Carcinoid Tumor Malignant (HCC) Expected: 12/24/2023 (Approximate), Expires: 12/23/2024 MR Abdomen without and with IV Contrast Imaging RAD - Routine (most inpatients and all outpatients) Carcinoid Tumor Malignant (HCC) Expected: 12/24/2023 (Approximate), Expires: 12/23/2024 Scheduled Referrals Name Type Priority Associated Diagnoses Orde r Schedule Oncology office visit (clinic) Outpatient Referral Routine Expected: 12/24/2023 (Approximate), Expires: 12/23/2024 documented as of this encounter Visit Diagnoses Diagnosis Carcinoid Tumor Malignant (HCC)- Primary documented in this encounter Care Teams Gas Shovel Operator Relationship Specialty Start Date End Date [facility] [place] [address] 05/22/21 documented as of this encounter
--- OUTSIDE RECORDS SUMMARY | 2023-10-01 09:14 | XMS_ITS | Encounter Summary ---
Author Name Unknown Organization [facility] Address [address] [place] [address] Care Team Providers Care Head Of Drama Name Role Phone Unavailable Primary Care Provider Unavailabl e Reason for Visit * Outpatient (Routine) - Canceled Specialty Diagnoses / Procedures Referred By Gayle walsh Referred To Contact Diagnoses Carcinoid Tumor Malignant (HCC) Procedures US Liver Biopsy CT Biopsy Other Gwendolyn Rao M.D. [address] [place] [phone] [facility] Referral ID Status Reason Start Date Expiration Date V isits Requested Visits Authorized [id number] Canceled 09/09/2023 09/08/2024 1 1 Encounter Details Date Type Department Care Team (Latest Contact Info) Description 09/15/2023 9:40 AM FILLING STATION EQUIPMENT MECHANIC - 09/15/2023 2:36 PM FILLING STATION EQUIPMENT MECHANIC Hospital Encounter Outpatient Surgery Unit in [place], [place] [address] [place] [phone] Gwendolyn Rao M.D. [address] [place] [phone] Jacinda Ramsay APRN, C.N.P., D.N.P. [address] [place] [phone] Carcinoid Tumor Malignant (HCC) Discharge Disposition: Home [...] any clubs o r organizations such as muslim groups, unions, fraternal or athletic groups, or [...] and heating? Not hard at all 09/29/2019 [facility] of Occupat ional Health - Occupational Stress [...] Master's degree (e.g., MA, MS, Darrin, MEd, COCKTAIL LOUNGE MANAGER, BERTHA) 09/29/2019 Sex and Gender Information Value Date Recorded Sex Assigned at Male 12/09/2022 3:56 PM CDT Gender Identity Male 02/23/2020 7:33 PM CDT Sexual Orientation Straight 02/23/2020 7: 33 PM CDT documented as of this encounter Last Filed Vital Signs Vital Sign Reading Time Taken Comments Blood Pressure 134/87 09/15/2023 1:15 PM FILLING STATION EQUIPMENT MECHANIC Pulse 81 09/15/2023 12:35 PM FILLING STATION EQUIPMENT MECHANIC Temperature 37.4 ??C (99.3 ??F) 09/15/2023 12:[address] Respiratory Rate 18 09/15/2023 12:49 PM FILLING STATION EQUIPMENT MECHANIC Oxygen Saturation 100% 09/15/2023 12:49 PM FILLING STATION EQUIPMENT MECHANIC Inhaled Oxygen Concentration - - Weight - - Height - - Body Mass Index - - documented in this encounter Medications at Time of Discharge Medication Sig Dispensed Refills Start Date End Date octreotide acetate (SANDOSTATIN) 50 mcg/mL (1 mL) injection every 28 (twenty-eight) days. 0 09/19/2019 sotalol (BETAPACE) 80 mg tablet 2 (two) times a day. 0 09/21/2019 cholecalciferol, vitamin D3, 25 mcg (1,000 Unit) tablet TAKE ONE TABLET BY MOUTH EVERY DAY 0 01/20/2019 simethicone (MYLICON) 80 mg chewable tablet Chew 80 mg 3 (three) times a day as needed for flatulence. 0 05/05/2023 05/05/2024 vitamin A 2,400 mcg (8,000 Unit) capsule Take 2,400 mcg by mouth daily. A couple days a week 0 vitamin E mixed 1,000 unit capsule A couple days per week 0 02/17/2022 warfarin (COUMADIN) 5 mg tablet Take by mouth daily. Takes 5 mg four days per week and 7.5 mg three days per week. 0 01/11/2020 documented as of this encounter Plan of Treatment Upcoming Encounters Date Type Department Care Team (Late st Contact Info) Description 12/24/2023 11:15 AM CDT Office Visit Division of Hematology in [place], [place] [address] [place] [address] Maureen Michelle M.D. [address] [place] [phone] Scheduled Orders Name Type Priority Associated Diagnoses Orde r Schedule US Liver Biopsy Imaging RAD - Routine (m ost inpatients and all outpatients) Carcinoid Tumor Malignant (HCC) Once for 1 Occurrences starting 09/15/2023 until 09/15/2023 documented as of this encounter Procedures Procedure Name Priority Date/Time Associated Diagnosis Comments PROTHROMBIN TIME (PT), P STAT 09/15/2023 1:00 PM FILLING STATION EQUIPMENT MECHANIC US LIVER BIOPSY RAD - Routine (most inpatients and all outpatients) 09/15/2023 12:16 PM FILLING STATION EQUIPMENT MECHANIC Carcinoid Tumor Malignant (HCC) CYTOLOGY FINE NEEDLE ASPIRATION (INCLUDES CORE BIOPSIES Timed 09/15/2023 11:55 AM FILLING STATION EQUIPMENT MECHANIC Carcinoid Tumor Malignant (HCC) INR, POCT, B Routine 09/15/2023 11:06 AM FILLING STATION EQUIPMENT MECHANIC ADULT OXYGEN THERAPY Routine 09/15/2023 11:01 AM FILLING STATION EQUIPMENT MECHANIC documented in this encounter Results * Prothrombin Time (PT) (09/15/2023 1:00 PM FILLING STATION EQUIPMENT MECHANIC) Prothrombin Time, P 12.5 9.4 - 12.5 sec 09/15/2023 1:12 PM FILLING STATION EQUIPMENT MECHANIC METH INR 1.1 0.9 - 1.1 09/15/2023 1:12 PM FILLING STATION EQUIPMENT MECHANIC METH Comment: ----ADDITIONAL INFORMATION---- Standard intensity warfarin therapeutic range: 2.0 to 3.0 ?? High intensity warfarin therapeutic range: 2.5 to 3.5 Blood (Blood, Venous) 09/15/2023 1:00 PM FILLING STATION EQUIPMENT MECHANIC 09/15/2023 1:04 PM FILLING STATION EQUIPMENT MECHANIC Kade Bennett M.D. LAB BLOOD ADD-O N [facility] [address] [place] [address], [facility] METH [facility] [address] [place] [address] * US Liver Biopsy (09/15/2023 12:16 PM FILLING STATION EQUIPMENT MECHANIC) Anatomical Region Laterality Modality Abdomen, Ultrasound RST LOS, Ultrasound ARZ LOS, Procedure FLA LOS, Abdominal FLA LOS, Procedural, Procedural NWWI LOS N/A Ultrasound Impressions 09/15/2023 12:34 PM FILLING STATION EQUIPMENT MECHANIC Ultrasound-guided liver mass biopsy. EP Narrative 09/15/2023 12:34 PM FILLING STATION EQUIPMENT MECHANIC EXAM: US LIVER BIOPSY PRE-PROCEDURE: Patient seen, [...] Aspiration (including core biopsies) (09/15/2023 11:55 AM FILLING STATION EQUIPMENT MECHANIC) (A) 09/18/2023 4:29 PM FILLING STATION EQUIPMENT MECHANIC DTL Disclaimer This test was developed and its performance characteristics determined by [facility] in a manner consistent with CLIA requirements. This test has not been cleared or approved by the U.S. Food and Drug Administration. (A) 09/18/2023 4:29 PM FILLING STATION EQUIPMENT MECHANIC DTL Participated in the Interpretation Valerie Bauman M.D., Ph.D. -Pathology Resident(A) 09/18/2023 4:29 PM FILLING STATION EQUIPMENT MECHANIC DTL Report electronically signed by Crissy Bowie M.D. I verify that I have examined all relevant slides/materials for the specimen(s) and rendered or confirmed the diagnosis. Seen in consultation with: Thierno Sevilla M.D., Ph.D. (A) 09/18/2023 4:29 PM FILLING STATION EQUIPMENT MECHANIC DTL Gross Description Received 4 alcohol-fixed smears and tissue. Additionally, received in formalin labeled with the patient's name, medical record number, and liver mass are four [id number] softtissue cores and six fragments, 0.1 cm in average diameter and ranging from 0.1-1.5 cm in length. Specimens are submitted en toto incassettes A1, three cores and A2, one core and six fragments. ??Grossed by AJB. (A) 09/18/2023 4:29 PM FILLING STATION EQUIPMENT MECHANIC DTL Source A. Liver, Mass, fine needle aspiration(A) 09/18/2023 4:29 PM FILLING STATION EQUIPMENT MECHANIC DTL Interpretation A. Liver, Mass, fine needle [...] stained slides are scanned using the Leica [id number] digital scanner. The captured digital image is analyzed using a validated AI (Artificial Intelligence) algorithm by [employer] (r) ??that calculates the percentage of positive staining tumor nuclei. The [employer] (r) ??data and corresponding slide are reviewed by a pathologist for final interpretation. This test was developed and its performance characteristics determined by [facility] in a manner consistent with CLIA requirements. This test has not been cleared or approved by the U.S. Food and Drug Administration. Ki-67 interpreted by: ??Trina JackBMarcianoS., Ph.D.(A) 09/18/2023 4:29 PM FILLING STATION EQUIPMENT MECHANIC DTL Tissue (Liver) 09/15/2023 11 :55 AM FILLING STATION EQUIPMENT MECHANIC Gwendolyn Rao M.D. LAB SURG PATH ORDERA BLES [facility] [address] [place] [address], [facility] DT [address] [place] [address] * INR, POCT (09/15/2023 11:06 AM FILLING STATION EQUIPMENT MECHANIC) INR, POCT, B 1.1 09/15/2023 4:30 PM FILLING STATION EQUIPMENT MECHANIC PCMO Comment: ----ADDITIONAL INFORMATION---- Standard intensity warfarin therapeutic range: 2.0 to 3.0 ?? High intensity warfarin therapeutic range: 2.5 to 3.5 Blood 09/15/2023 11:0 6 AM FILLING STATION EQUIPMENT MECHANIC 09/15/2023 4:30 PM FILLING STATION EQUIPMENT MECHANIC Unknown Provider LAB POCT ORDERABLES - DEVICE POC [facility] [address] [place] [address], [place] [facility] POC [address] [place] [address] documented in this encounter Visit Diagnoses Diagnosis Carcinoid Tumor Malignant (HCC) documented in this encounter Administered Medications Inactive Administered Medications - up to 3 most recent administrations Medication Order MAR Action Action Date Dose Rate Site fentaNYL injection 25 mcg (SUBLIMAZE) 25 mcg, intravenous, Every 2 min PRN, sedation, Administer over 1 minute immediately prior to the procedure. May repeat every 2 minutes to a maximum of 200 mcg, until pain score of 3 or less, or until the patient meets the pain comfort goal, or RASS 0 to -2. Do not give if respiratory rate is less than 8 breaths/minute., Starting on Thu09/15/23 at 1100, For 3 hours, Intraprocedure (RAD) Given 09/15/2023 12:06 PM FILLING STATION EQUIPMENT MECHANIC 25 mcg Lactated Ringer's 20 mL/hr, intravenous, Once as needed, to keep vein open, Starting on Thu09/15/23 at 1100, For 1 dose, Intraprocedure (RAD) New Bag 09/15/2023 11:48 AM FILLING STATION EQUIPMENT MECHANIC 20 mL/hr 20 mL/hr lidocaine 10 mg/mL (1 %) injection (XYLOCAINE) As needed, Starting on Thu09/15/23 at 1208, Intra-Op Given 09/15/2023 12:08 PM FILLING STATION EQUIPMENT MECHANIC 6 mL Abdominal Tissue midazolam (PF) injection 0.5 mg (VERSED) 0.5 mg, intravenous, Every 2 min PRN, sedation, RASS -1, Starting on Thu09/15/23 at 1100, For 3 hours, Intraprocedure (RAD), May repeat every 2 minutes for a maximum of 5 mg. Do not give if respiratory rate is less than 8 breaths/minute. Given 09/15/2023 12:07 PM FILLING STATION EQUIPMENT MECHANIC 0.5 mg documented in this encounter Active and Recently Administered Medications Times are shown in FILLING STATION EQUIPMENT MECHANIC. PRN Medication Order 09/13/2023 09/14/2023 09/15/2023 fentaNYL injection 25 mcg (SUBLIMAZE) (CANCELED) 25 mcg, intravenous, Every 2 min PRN, sedation, Administer over 1 minute immediately prior to the procedure. May repeat every 2 minutes to a maximum of 200 mcg, until pain score of 3 or less, or until the patient meets the pain comfort goal, or RASS 0 to -2. Do not give if respiratory rate is less than 8 breaths/minute., Starting on Thu09/15/23 at 1100, For 3 hours, Intraprocedure (RAD) 1206 (Given - Provid er: Priya Finch R.N.) Lactated Ringer's (COMPLETED) 20 mL/hr, intravenous, Once as needed, to keep vein open, Starting on Thu09/15/23 at 1100, For 1 dose, Intraprocedure (RAD) 1148 (New Bag - Prov ider: Priya Finch R.N.) lidocaine 10 mg/mL (1 %) injection (XYLOCAINE) (COMPLETED) As needed, Starting on Thu09/15/23 at 1208, Intra-Op 1208 (Given - Provid er: Kade Bennett M.D.) midazolam (PF) injection 0.5 mg (VERSED) (CANCELED) 0.5 mg, intravenous, Every 2 min PRN, sedation, RASS -1, Starting on Thu09/15/23 at 1100, For 3 hours, Intraprocedure (RAD), May repeat every 2 minutes for a maximum of 5 mg. Do not give if respiratory rate is less than 8 breaths/minute. 1207 (Given - Provid er: Priya Finch R.N.) documented in this encounter Care Teams Head Of Drama Relationship Specialty Start Date End Date [facility] [place] [address] 05/22/21 documented as of this encounter
--- NOTE | 2023-10-01 09:15 | CRLHL7_ITS ---
For Patients: As a result of the Century Cures Act, medical imaging exams and procedure reports are released immediately into your electronic medical record. You may view this report before your referring provider. If you have questions, please contact your health care provider. Indication: Right hip pain Procedure : Informed consent was obtained. The site was marked. Time-out was performed. The skin of the right hip was cleansed with ChloraPrep. A sterile drape was placed. Six cc of 1 percent lidocaine was administered for superficial anesthesia. Subsequently a 20 gauge spinal needle was introduced into the right hip joint under intermittent fluoroscopic guidance. Injection 7 cc 1 percent lidocaine and 2 cc 40 milligram/cc Depo-Medrol then performed into the right hip joint. The needle was removed and hemostasis achieved with direct pressure. A dressing was placed. The patient tolerated the procedure well without immediate complication. Total fluoroscopy time 12 seconds. Impression: Successful fluoroscopically guided right hip injection with 80 milligrams of Depo-Medrol. Dictated by Ventura Espana MD @ 10/01/2023 10:17:27 AM (Electronically Signed)
--- OUTSIDE RECORDS SUMMARY | 2023-10-01 09:15 | XMS_ITS | Clinical Summary ---
Author Name Unknown Organization [facility] Address [address] [place] [address] Care Team Providers Care Power Barker Operator Name Role Phone Home - [place], [place] [facility] Primary C are Provider Social History Tobacco Use Types Packs/Day Years Used Date Smoking Tobacco: Never Assessed Adolescent Education Answer Date Record ed Getting School Help Needed Not on file 07/01 Sex and Gender Information Value Date Recorded Sex Assigned at Not on file Gender Identity Not on file Sexual Orientation Not on file Plan of Treatment Health Maintenance Due Date Last Done Comments ADVANCE CARE PLANNING 1945 ANNUAL REVIEW OF HM ORDERS 1944 HEPATITIS C SCREENING 1962 DTAP/TDAP/TD IMMUNIZATION (1 - Tdap) 1969 LIPID 1979 ZOSTER IMMUNIZATION (1 of 2) 1994 RSV VACCINE ( & 60+) (1 - 1-dose 60+ series) 2004 FALL RISK ASSESSMENT 2009 MEDICARE ANNUAL WELLNESS VISIT 2009 Pneumococcal Vaccine: 65+ Years (2 of 2 - PPSV23 or PCV20) 02/09/2015 02/09/2014 COVID-19 Vaccine (3 - season) 2023 11/27/2020, 11/06/2020 INFLUENZA VACCINE (#1) 2023 9, 07/02/2018, 06/16/2017, Additional history exists PHQ-2 (once per calendar year) 2023 HPV IMMUNIZATION Aged Out No longer e ligible based on patient's age to complete this topic IPV IMMUNIZATION Aged Out No longer e ligible based on patient's age to complete this topic MENINGITIS IMMUNIZATION Aged Out No l onger eligible based on patient's age to complete this topic RSV MONOCLONAL ANTIBODY Aged Out No l onger eligible based on patient's age to complete this topic Care Teams Power Barker Operator Relationship Specialty Start Date End Date Home - [facility] [address] [place] [address]. [place] [address] PCP - General 01/22/21
--- OUTSIDE RECORDS SUMMARY | 2023-10-01 09:15 | XMS_ITS | Referral Summary ---
Author Name Unknown Organization [facility] Address [address] [place] [address] Care Team Providers Care Policy Change Clerks Supervisor Name Role Phone Home - [facility] Primary C are Provider Social History Tobacco Use Types Packs/Day Years Used Date Smoking Tobacco: Never Assessed Adolescent Education Answer Date Record ed Getting School Help Needed Not on file 07/01 Sex and Gender Information Value Date Recorded Sex Assigned at Not on file Gender Identity Not on file Sexual Orientation Not on file Plan of Treatment Not on file Care Teams Policy Change Clerks Supervisor Relationship Specialty Start Date End Date Home - [place], [place] [facility] [address] [facility] [address] PCP - General 01/22/21
--- OUTSIDE RECORDS SUMMARY | 2023-10-01 09:15 | XMS_ITS | Encounter Summary ---
Author Name Unknown Organization [facility] Address [address] [place] [address] Care Team Providers Care Photographic Laboratory Supervisor Name Role Phone Unavailable Primary Care Provider Unavailabl e Encounter Details Date Type Department Care Team (Latest Contact Info) Description 02/26/2023 8:45 AM CDT Clinical Communication Virtual Review in [place], [place] [address] [place], [place] [address] Social History Tobacco Use Types Packs/Day Years [...] often do you attend chur ch or church services? More than 4 times per year 09/29/2019 Do you belong to any clubs o r organizations such as gnosticism groups, unions, fraternal or athletic groups, or [...] and heating? Not hard at all 09/29/2019 [facility] - Occupational Stress Questionnaire Answer Date Recorded [...] Master's degree (e.g., MA, MS, Darrin, MEd, OCCUPATIONAL HEALTH PHYSIOTHERAPIST, BERTHA) 09/29/2019 Sex and Gender Information Value Date Recorded Sex Assigned at Male 12/09/2022 3:56 PM CDT Gender Identity Male 02/23/2020 7:33 PM CDT Sexual Orientation Straight 02/23/2020 7: 33 PM CDT documented as of this encounter Plan of Treatment Upcoming Encounters Date Type Department Care Team (Late st Contact Info) Description 12/24/2023 11:15 AM CDT Office Visit Division of Hematology in [place], [place] [address] [place] [address] Maureen Michelle M.D. [address] [place] [address] documented as of this encounter Visit Diagnoses Not on filedocumented in this encounter Care Teams Photographic Laboratory Supervisor Relationship Specialty Start Date End Date [facility] [address] [place] [address] 05/22/21 documented as of this encounter
== END 2023-10-01 09:01 | disposition home or self-care (01) ==
LOC: RAD 09:00
PROVIDERS: PCP Internal Medicine; Visit Provider Orthopaedic Surgery Sports Medicine
DX: M25.551 Pain in right hip (principal); M16.11 Unilateral primary osteoarthritis, right hip
CPT/HCPCS: 20610; 77002; J1030; Q9966

== ENCOUNTER 2023-10-25 19:52 | Outpatient (CLI) | payer MEDICARE, OTHER, SELFPAY ==
--- OUTSIDE RECORDS SUMMARY | 2023-10-25 19:55 | XMS_ITS | Continuity of Care Document ---
Author Name [facility] Organization [facility] Care Team Providers Care Lubricating Specialist Name Role Phone [facility] Unavailable Unavailable Problems Combined list of problems from 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 It does not include entries that were removed or entered in error. 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 History of deep vein thrombosis Active Condition [facility] Hyperlipidemia (SNOMED CT 32232079) Active Condition [facility] Impotence Active Condition [facility] Long-term current use of anticoagulant Active Condition [facility] Osteoarthritis of knee (SNOMED CT 632779728) Active Condition [facility] Osteopenia Active Condition [facility] Pain in limb (ICD-9-CM 729.5) Active Condition Dec 27 3 Entered By: HARLAN SUN Comment: knee pain [facility] Post Vit Detachment Active Condition [facility] Secondary carcinoma of liver Active Condition [facility] Secondary malignant neoplasm of bone Active [facility] Solitary nodule of lung Active Condition [facility] Trigger Finger (ICD-9-CM 727.03) Inactive Condition 08/11/2017 JYOTI BARRIOS [facility] Diagnosis: ICD-10-CM C7A.00 Malignant carcinoid tumor of unspecified site Active Diagnosis [facility] Diagnosis: ICD-10-CM Z79.01 roasterman (current) use of anticoagulants Active Diagnosis MARNI Julien [facility] 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 Diagnosis [facility] Diagnosis: ICD-10-CM Z79.899 Other senior living (current) drug therapy Active Diagnosis [facility] Diagnosis: ICD-10-CM Z86.718 Personal history of other venous thrombosis and embolism Active Diagnosis [facility] Diagnosis: ICD-10-CM I48.91 Unspecified atrial fibrillation Active Diagnosis [facility] Diagnosis: ICD-10-CM Z13.6 Encounter for screening for cardiovascular disorders Active Diagnosis [facility] Diagnosis: ICD-10-CM Z51.11 Encounter for antineoplastic chemotherapy Active Diagnosis [facility] Diagnosis: ICD-10-CM Z78.9 Other specified health status Active Diagnosis [facility] Diagnosis: ICD-10-CM R52 Pain, unspecified Active Diagnosis JYOTI BARRIOS [facility] Diagnosis: ICD-10-CM Z98.1 Arthrodesis status Active Diagnosis [facility] Diagnosis: ICD-10-CM M77.31 Calcaneal spur, right foot Active Diagnosis [facility] Diagnosis: ICD-10-CM Z71.9 Counseling, unspecified Active Diagnosis [facility] Diagnosis: ICD-10-CM Z01.818 Encounter for other preprocedural examination Active Diagnosis [facility] Diagnosis: ICD-10-CM M76.61 Achilles tendinitis, right leg Active Diagnosis [facility] Medications Combined list of outpatient medications from 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Medications provided include 1) outpatient medications from the last 15 months, and 2) patient-reported medications. Medication Details Route Status Patient Instructions Prescription Expires Prescription Number Last Dispense Date Ordering Provider Order Date Source AMOXICILLIN (AMOXICILLI N), 500 MG, CAPSULE, ORAL, TEVA [place], 500 ea. BOTTLE Active [id number] 2023 Pharmac y Data Transac tion Service Facilit y COMIRNATY [id number] (COVID vac 2022- (12 yr and up) XBB.1.5 (raxtozinam ginger)/PF), 30 MCG/0.3, SYRINGE, INTRAMUSC, PFIZER US PHARM, .3 ml SYRINGE Active [id number] 4 2023 Pharmac y Data Transac tion Service Facilit y FLUTICASONE PROPIONATE 50MCG/SPRAY SOLN,NASAL, 16GM SPRAY 2 SPRAYS IN EACH NOSTRIL EVERY DAY USE REGULARL Y FOR RELIEF OF ALLERGIE S/CONGES TION NASAL 04/05/2023 [id number] 3 CLAYTON ROLLE 2021 [place] [facility] OCTREOTIDE 200 MCG/ML INJ VIAL [5ML] INJECT 0.75MLS (150MCG) UNDER THE SKIN TWICE A DAY 08/28/2022 [id number] 2 TARABI, LILI 2022 [place] [facility] OCTREOTIDE ACETATE 0.2MG/ML INJ INJECT 0.75MLS (150MCG) UNDER THE SKIN TWICE A DAY SUBCUT ANEOUS 08/28/2022 [id number] 2 TARABI, ATA2021 [place] [facility] OCTREOTIDE ACETATE 20MG/KIT INJ,SUSP,SA INJECT 20MG 20MG INTRAMUS CULAR EVERY MONTH IN HEME/ONC CLINIC *DO NOT MAIL TO BE DISPENSE IN CLINIC INTRAM USCULA R DISCONT INUED 08/13/2023 [id number] 2 TARJEMND, ATA2021 [place] [facility] PSYLLIUM PWDR,ORAL TAKE 1 TABLESPO ONFUL BY MOUTH TWICE A DAY FOR REGULAR BOWEL MOVEMENT S ORALLY ACTIVE 12/03/2023 [id number] 3 TARCHAND, ATA2022 [place] [facility] simethicone 80 MG ORAL CHEW CHEW ONE TABLET BY MOUTH THREE TIMES A DAY NEEDED FOR GAS Active 05/05/2024 [id number] 3 SARIAHSTEFFANABELL Loza 2022 [facility] SIMETHICONE 80MG TAB,CHEW CHEW ONE TABLET BY MOUTH THREE TIMES A DAY NEEDED FOR GAS ORALLY ACTIVE 05/05/2024 [id number] 3 SARIAHSTEFFANABELL Loza 2022 [facility] SOTALOL HCL 80MG TAB TAKE ONE TABLET BY MOUTH TWO TIMES A DAY ORALLY ACTIVE 01/01/2024 [id number] 3 Diego KATZ 2022 [facility] SOTALOL HCL 80MG TAB TAKE ONE TABLET BY MOUTH TWO TIMES A DAY ORALLY DISCONT INUED 12/19/2022 [id number] 3 Diego KATZ 2021 [facility] Sotalol Hydrochlori de (Betapace) Tablet 80 mg Oral TAKE ONE TABLET BY MOUTH TWO TIMES A DAY Active 01/01/2024 [id number] 3 LUISITO KATZ 2022 [facility] Sotalol Hydrochlori de (Betapace) Tablet 80 mg Oral TAKE ONE TABLET BY MOUTH TWO TIMES A DAY 12/19/2022 [id number] 3 LUISITO KATZ 2022 [facility] VITAMIN E CAP,ORAL TAKE BY MOUTH EVERY MORNING ORALLY ACTIVE LILI GARCIA 2021 [facility] WARFARIN NA ([place]) 5MG TAB TAKE THIS MEDICATI ON BY MOUTH EVERY DAY TO TREAT AND/OR PREVENT BLOOD CLOTS DIRECTED BY THE [facility] (PHONE: ) ORALLY ACTIVE 12/04/2023 [id number] 3 MAYI MILLER 2022 [facility] WARFARIN NA ([place]) 5MG TAB TAKE ONE AND ONE-HALF TABLETS BY MOUTH THURSDAY AND THURSDAY AND TAKE ONE TABLET ALL OTHER DAYS OR DIRECTED BY WARFARIN CLINIC TO TREAT AND/OR PREVENT BLOOD CLOTS ORALLY DISCONT INUED 01/23/2023 [id number] 2 LUISITO NI 2021 [facility] Warfarin Sodium (GSMS/Taro Brand) Tablet 5 mg Oral TAKE THIS MEDICATI ON BY MOUTH EVERY DAY TO TREAT AND/OR PREVENT BLOOD CLOTS DIRECTED BY THE [facility] (PHONE: ) Active 12/04/2023 [id number] 3 NORMA MILLER 2022 [facility] Allergies, Adverse Reactions, Alerts Combined list of allergies from 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 It does not include entries that were removed or entered in error. Substance Category Reaction Severity Reaction type Status Date Reported Comments Source DIAL SOAP Propensity to adverse reaction (finding) Eruption active 7 [facility] NAPROXEN Propensity to adverse reactions to drug (finding) Diarrhea active 1 [facility] No Known Allergies Drug allergy (disorder) active 8 [facility] Immunizations Combined list of available immunizations from the 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 Immunization Series Date Given Administered By Site Reaction Lot Number CVX Code Drug Electrophysiology Nurse Practitioner Status Comments Source COVID-19 (PFIZER), MRNA, LNP-S, PF, VINEET-SUCROSE, 30 MCG/0.3 ML (AGES 12+ YEARS) 2023 309 complet ed [facility] INFLUENZA, HIGH-DOSE, QUADRIVALENT 2022 197 complet ed [facility] TDAP 2022 115 complet ed [facility] COVID-19 (PFIZER), MRNA, LNP-S, BIVALENT, PF, 30 MCG/0.3 ML DOSE 2021 300 complet ed [facility] INFLUENZA, HIGH-DOSE, QUADRIVALENT 2021 197 complet ed [facility] INFLUENZA, UNSPECIFIED FORMULATION 2021 88 complet ed [facility] COVID-19 (PFIZER), MRNA, LNP-S, PF, 30 MCG/0.3 ML DOSE, VINEET-SUCROSE (AGES 12+ YEARS) 2021 217 complet ed [facility] COVID-19, mRNA, LNP-S, PF, 30 mcg/0.3 mL dose, vineet-sucrose 2021 [employer] [place] (PFR) Not Given COVID-19, mRNA, LNP-S, PF, 30 mcg/0.3 mL dose, vineet-sucr ose [facility] COVID-19 (PFIZER), MRNA, LNP-S, PF, 30 MCG/0.3 ML DOSE 2020 208 complet [facility] INFLUENZA, HIGH-DOSE, QUADRIVALENT 2020 197 complet [facility] influenza, high-dose, quadrivalent 2020 [place], () Not Given influenza , high-dose , quadrival ent DoD INFLUENZA, UNSPECIFIED FORMULATION 2020 88 complet [facility] COVID-19 ([employer]), MRNA, LNP-S, PF, 30 MCG/0.3 ML DOSE 2020 208 complet [facility] COVID-19 ([employer]), MRNA, LNP-S, PF, 30 MCG/0.3 ML DOSE 1 2020 208 complet [facility] INFLUENZA, INJECTABLE, QUADRIVALENT, PRESERVATIVE FREE 2019 150 complet [facility] INFLUENZA, HIGH DOSE SEASONAL 2018 135 complet [facility] INFLUENZA, RECOMBINANT, QUADRIVALENT, INJECTABLE, PRESERVATIVE FREE 2018 185 complet [facility] ZOSTER RECOMBINANT 2 2018 187 complet [facility] ZOSTER RECOMBINANT 1 2018 187 complet [facility] INFLUENZA, SEASONAL, INJECTABLE 2017 141 complet [facility] INFLUENZA, SEASONAL, INJECTABLE 2017 141 complet [facility] INFLUENZA, HIGH DOSE SEASONAL 2016 135 complet [facility] INFLUENZA, HIGH DOSE SEASONAL 2016 135 complet [facility] TDAP 2015 115 complet [facility] INFLUENZA, HIGH DOSE SEASONAL 2015 135 complet [facility] Influenza, high dose seasonal 2014 KIND, () Not Given Influenza , high dose seasonal DoD PNEUMOCOCCAL CONJUGATE PCV 13 2014 133 complet ed [employer],L82 219,09/30 [facility] zoster live 2014 KIND, () Not Given zoster live [facility] INFLUENZA, UNSPECIFIED FORMULATION 2013 88 complet ed [facility] INFLUENZA, HIGH DOSE SEASONAL 2013 135 complet ed [facility] TDAP 2013 115 complet ed [employer],U6 606AB,May 27 [facility] PNEUMOCOCCAL CONJUGATE PCV 13 2013 133 complet ed [facility] INFLUENZA, SEASONAL, INJECTABLE 2012 141 complet ed [facility] INFLUENZA, UNSPECIFIED FORMULATION 2012 88 complet ed [facility] INFLUENZA, UNSPECIFIED FORMULATION 2011 88 complet ed [facility] INFLUENZA, SEASONAL, INJECTABLE 2011 141 complet ed [facility] INFLUENZA, SEASONAL, INJECTABLE 2010 141 complet ed [facility] INFLUENZA, UNSPECIFIED FORMULATION 2010 88 complet ed [facility] INFLUENZA, UNSPECIFIED FORMULATION 2009 88 complet ed per pt [facility] NOVEL INFLUENZA-H1N 1-09, ALL FORMULATIONS 2009 128 complet ed [facility] INFLUENZA, INJECTABLE, QUADRIVALENT, PRESERVATIVE FREE 2009 150 complet ed [facility] NOVEL INFLUENZA-H1N 1-09, ALL FORMULATIONS 2009 128 complet ed [facility] ZOSTER LIVE 2008 121 complet ed [employer] Lot# Exp [facility] PNEUMOCOCCAL, UNSPECIFIED FORMULATION 2008 109 complet ed [employer], [id number], [id number] [facility] INFLUENZA, UNSPECIFIED FORMULATION 2008 88 complet ed [facility] INFLUENZA, UNSPECIFIED FORMULATION 2007 88 complet ed [facility] INFLUENZA (HISTORICAL) 2006 88 complet ed [facility] TD(ADULT) UNSPECIFIED FORMULATION 2006 139 complet ed [facility] INFLUENZA (HISTORICAL) 2005 88 complet ed [facility] INFLUENZA, SEASONAL, INJECTABLE 2004 141 complet ed [facility] influenza virus vaccine, whole virus 1 2002 Unknown, Provider [id number] [employer] ([employer]) complet ed influenza [...] DoD TD(ADULT) UNSPECIFIED FORMULATION 2002 139 complet [facility] hepatitis B vaccine, adult dosage 3 1996 [...] and 2 Lf of diphtheri a toxoid) [facility] hepatitis B vaccine, adult dosage 1 1995 Unknown, Provider 43 () complet ed hepatitis B vaccine, adult dosage DoD hepatitis A vaccine, adult dosage 1 1995 Unknown, Provider 52 () complet ed hepatitis A vaccine, adult dosage [facility] trivalent poliovirus vaccine, live, oral 1 1973 Unknown, Provider 02 () complet ed trivalent polioviru s vaccine, live, oral [facility] Results Combined list of recent chemistry, hematology and other laboratory results from Department of Defense and Veterans Affairs, ranging from 15 months to all on record, depending upon the facility. Order Name Results Value Reference Range Date Interpretation Specimen Comments Source PT/INR(AN TICOAG) INR IN PLATELET POOR PLASMA BY COAGULATION ASSAY 2.5 0.8 - 1.1 10/06 H Specimen Type: PLASMA No comment entered. Ordering Provider: Philip GARCIA Report Released Date/Time: Aug 27, 2023 09:50 AM Reporting Lab: [facility] [address] Performing Lab: [facility] [address] [place] [facility] PT/INR(AN TICOAG) PROTHROMBIN TIME (PT) 29.3 9.4 - 12.5 10/06 H Specimen Type: PLASMA No comment entered. Ordering Provider: Philip GARCIA Report Released Date/Time: Aug 27, 2023 09:50 AM Reporting Lab: [facility] [phone] Performing Lab: [facility] [address] [place] [facility] COMPREHEN SIVE METABOLIC PANEL+MG CREATININE [MASS/VOLUM E] IN SERUM OR PLASMA 0.9 0.7 - 1.2 10/06 Specimen Type: PLASMA Comment: Automated Differentia l Performed Ordering Provider: ATA GARCIA Report Released Date/Time: Aug 11, 2023 09:38 AM Reporting Lab: [facility] [phone] Performing Lab: [facility] [address] [place] [facility] COMPREHEN SIVE METABOLIC PANEL+MG UREA NITROGEN [MASS/VOLUM E] IN SERUM OR PLASMA 17 8 - 26 10/06 Specimen Type: PLASMA Comment: Automated Differentia l Performed Ordering Provider: ATA GARCIA Report Released Date/Time: Aug 11, 2023 09:38 AM Reporting Lab: [facility] [phone] Performing Lab: [facility] [address] [place] [facility] COMPREHEN SIVE METABOLIC PANEL+MG GLUCOSE [MASS/VOLUM E] IN SERUM OR PLASMA 118 70 - 100 10/06 H Specimen Type: PLASMA Comment: Automated Differentia l Performed Ordering Provider: ATA GARCIA Report Released Date/Time: Aug 11, 2023 09:38 AM Reporting Lab: [facility] [address] Performing Lab: [facility] [address] [place] [facility] COMPREHEN SIVE METABOLIC PANEL+MG SODIUM [MOLES/VOLU ME] IN SERUM OR PLASMA 140 136 - 145 10/06 Specimen Type: PLASMA Comment: Automated Differentia l Performed Ordering Provider: ATA GARCIA Report Released Date/Time: Aug 11, 2023 09:38 AM Reporting Lab: [facility] [address] Performing Lab: [facility] [address] [place] [facility] COMPREHEN SIVE METABOLIC PANEL+MG POTASSIUM [MOLES/VOLU ME] IN SERUM OR PLASMA 4.0 3.5 - 5.1 10/06 Specimen Type: PLASMA Comment: Automated Differentia l Performed Ordering Provider: ATA GARCIA Report Released Date/Time: Aug 11, 2023 09:38 AM Reporting Lab: [facility] [address] Performing Lab: [facility] [address] [place] [facility] COMPREHEN SIVE METABOLIC PANEL+MG CHLORIDE [MOLES/VOLU ME] IN SERUM OR PLASMA 107 98 - 107 10/06 Specimen Type: PLASMA Comment: Automated Differentia l Performed Ordering Provider: ATA GARCIA Report Released Date/Time: Aug 11, 2023 09:38 AM Reporting Lab: [facility] [phone] Performing Lab: [facility] [address] [place] [facility] COMPREHEN SIVE METABOLIC PANEL+MG CARBON DIOXIDE, TOTAL [MOLES/VOLU ME] IN SERUM OR PLASMA 26 22 - 29 10/06 Specimen Type: PLASMA Comment: Automated Differentia l Performed Ordering Provider: ATA GARCIA Report Released Date/Time: Aug 11, 2023 09:38 AM Reporting Lab: [facility] [address] Performing Lab: [facility] [address] [place] [facility] COMPREHEN SIVE METABOLIC PANEL+MG CALCIUM [MASS/VOLUM E] IN SERUM OR PLASMA 8.9 8.4 - 10.2 10/06 Specimen Type: PLASMA Comment: Automated Differentia l Performed Ordering Provider: ATA GARCIA Report Released Date/Time: Aug 11, 2023 09:38 AM Reporting Lab: [facility] [address] Performing Lab: [facility] [address] [place] [facility] COMPREHEN SIVE METABOLIC PANEL+MG PROTEIN [MASS/VOLUM E] IN SERUM OR PLASMA 6.4 6.0 - 8.3 10/06 Specimen Type: PLASMA Comment: Automated Differentia l Performed Ordering Provider: ATA GARCIA Report Released Date/Time: Aug 11, 2023 09:38 AM Reporting Lab: [facility] [address] Performing Lab: [facility] [address] [place] [facility] COMPREHEN SIVE METABOLIC PANEL+MG ALBUMIN [MASS/VOLUM E] IN SERUM OR PLASMA 3.8 3.5 - 5.2 10/06 Specimen Type: PLASMA Comment: Automated Differentia l Performed Ordering Provider: ATA GARCIA Report Released Date/Time: Aug 11, 2023 09:38 AM Reporting Lab: [facility] [address] Performing Lab: [facility] [address] [place] [facility] COMPREHEN SIVE METABOLIC PANEL+MG BILIRUBIN.T OTAL [MASS/VOLUM E] IN SERUM OR PLASMA 1.0 0.2 - 1.2 10/06 Specimen Type: PLASMA Comment: Automated Differentia l Performed Ordering Provider: ATA GARCIA Report Released Date/Time: Aug 11, 2023 09:38 AM Reporting Lab: [facility] [address] Performing Lab: [facility] [address] [place] [facility] COMPREHEN SIVE METABOLIC PANEL+MG MAGNESIUM [MASS/VOLUM E] IN SERUM OR PLASMA 2.0 1.6 - 2.6 10/06 Specimen Type: PLASMA Comment: Automated Differentia l Performed Ordering Provider: ATA GARCIA Report Released Date/Time: Aug 11, 2023 09:38 AM Reporting Lab: [facility] [address] Performing Lab: [facility] [address] [place] [facility] COMPREHEN SIVE METABOLIC PANEL+MG ANION GAP IN SERUM OR PLASMA 7 5 - 15 10/06 Specimen Type: PLASMA Comment: Automated Differentia l Performed Ordering Provider: ATA GARCIA Report Released Date/Time: Aug 11, 2023 09:38 AM Reporting Lab: [facility] [address] Performing Lab: [facility] [address] [place] [facility] COMPREHEN SIVE METABOLIC PANEL+MG ALKALINE PHOSPHATASE [ENZYMATIC ACTIVITY/VO LUME] IN SERUM OR PLASMA 78 40 - 150 10/06 Specimen Type: PLASMA Comment: Automated Differentia l Performed Ordering Provider: ATA GARCIA Report Released Date/Time: Aug 11, 2023 09:38 AM Reporting Lab: [facility] [address] Performing Lab: [facility] [address] [place] [facility] COMPREHEN SIVE METABOLIC PANEL+MG ALANINE AMINOTRANSF ERASE [ENZYMATIC ACTIVITY/VO LUME] IN SERUM OR PLASMA 20 <55 - 55 10/06 Specimen Type: PLASMA Comment: Automated Differentia l Performed Ordering Provider: ATA GARCIA Report Released Date/Time: Aug 11, 2023 09:38 AM Reporting Lab: [facility] [address] Performing Lab: [facility] [address] [place] [facility] COMPREHEN SIVE METABOLIC PANEL+MG ASPARTATE AMINOTRANSF ERASE [ENZYMATIC ACTIVITY/VO LUME] IN SERUM OR PLASMA 19 <34 - 34 10/06 Specimen Type: PLASMA Comment: Automated Differentia l Performed Ordering Provider: ATA GARCIA Report Released Date/Time: Aug 11, 2023 09:38 AM Reporting Lab: [facility] [address] Performing Lab: [facility] [address] [place] [facility] COMPREHEN SIVE METABOLIC PANEL+MG GLOMERULAR FILTRATION RATE/1.73 SQ M.PREDICTED [VOLUME RATE/AREA] IN SERUM, PLASMA OR BLOOD BY CREATININE- BASED FORMULA (CKD-EPI 2020) 87 60 10/06 Specimen Type: PLASMA Comment: Automated Differentia l Performed Ordering Provider: ATA GARCIA Report Released Date/Time: Aug 11, 2023 09:38 AM Reporting Lab: [facility] [address] Performing Lab: [facility] [address] [place] [facility] CBC & DIFF LEUKOCYTES [#/VOLUME] IN BLOOD BY AUTOMATED COUNT 5.36 4.0 - 11.0 10/06 Specimen Type: BLOOD Comment: Automated Differentia l Performed Ordering Provider: ATA GARCIA Report Released Date/Time: Aug 11, 2023 09:38 AM Reporting Lab: [facility] [address] Performing Lab: [facility] [address] [place] [facility] CBC & DIFF ERYTHROCYTE S [#/VOLUME] IN BLOOD BY AUTOMATED COUNT 4.28 4.6 - 6.2 10/06 L Specimen Type: BLOOD Comment: Automated Differentia l Performed Ordering Provider: ATA GARCIA Report Released Date/Time: Aug 11, 2023 09:38 AM Reporting Lab: [facility] [address] Performing Lab: [facility] [address] [place] [facility] CBC & DIFF HEMOGLOBIN [MASS/VOLUM E] IN BLOOD 14.2 13.5 - 17.9 10/06 Specimen Type: BLOOD Comment: Automated Differentia l Performed Ordering Provider: ATA GARCIA Report Released Date/Time: Aug 11, 2023 09:38 AM Reporting Lab: [facility] [address] Performing Lab: [facility] [address] [place] [facility] CBC & DIFF HEMATOCRIT [VOLUME FRACTION] OF BLOOD BY AUTOMATED COUNT 41.9 41 - 54 10/06 Specimen Type: BLOOD Comment: Automated Differentia l Performed Ordering Provider: ATA GARCIA Report Released Date/Time: Aug 11, 2023 09:38 AM Reporting Lab: [facility] [address] Performing Lab: [facility] [address] [place] [facility] CBC & DIFF MCV [ENTITIC VOLUME] BY AUTOMATED COUNT 97.9 80 - 100 10/06 Specimen Type: BLOOD Comment: Automated Differentia l Performed Ordering Provider: ATA GARCIA Report Released Date/Time: Aug 11, 2023 09:38 AM Reporting Lab: [facility] [address] Performing Lab: [facility] [address] [place] [facility] CBC & DIFF MCH [ENTITIC MASS] BY AUTOMATED COUNT 33.2 27 - 33 10/06 H Specimen Type: BLOOD Comment: Automated Differentia l Performed Ordering Provider: ATA GARCIA Report Released Date/Time: Aug 11, 2023 09:38 AM Reporting Lab: [facility] [address] Performing Lab: [facility] [address] [place] [facility] CBC & DIFF MCHC [MASS/VOLUM E] BY AUTOMATED COUNT 33.9 32.0 - 37.5 10/06 Specimen Type: BLOOD Comment: Automated Differentia l Performed Ordering Provider: ATA GARCIA Report Released Date/Time: Aug 11, 2023 09:38 AM Reporting Lab: [facility] [address] Performing Lab: [facility] [address] [place] [facility] [facility] CBC & DIFF PLATELETS [#/VOLUME] IN BLOOD BY AUTOMATED COUNT 219 150 - 400 10/06 Specimen Type: BLOOD Comment: Automated Differentia l Performed Ordering Provider: ATA GARCIA Report Released Date/Time: Aug 11, 2023 09:38 AM Reporting Lab: [facility] [address] Performing Lab: [facility] [address] [place] [facility] CBC & DIFF PLATELET MEAN VOLUME [ENTITIC VOLUME] IN BLOOD BY AUTOMATED COUNT 9.6 7.4 - 10.4 10/06 Specimen Type: BLOOD Comment: Automated Differentia l Performed Ordering Provider: ATA GARCIA Report Released Date/Time: Aug 11, 2023 09:38 AM Reporting Lab: [facility] [address] Performing Lab: [facility] [address] [place] [facility] CBC & DIFF NEUTROPHILS /100 LEUKOCYTES IN BLOOD BY MANUAL COUNT 57.6 40.0 - 80.0 10/06 Specimen Type: BLOOD Comment: Automated Differentia l Performed Ordering Provider: ATA GARCIA Report Released Date/Time: Aug 11, 2023 09:38 AM Reporting Lab: [facility] [address] Performing Lab: [facility] [address] [place] [facility] CBC & DIFF LYMPHOCYTES /100 LEUKOCYTES IN BLOOD BY MANUAL COUNT 26.7 15.0 - 45.0 10/06 Specimen Type: BLOOD Comment: Automated Differentia l Performed Ordering Provider: ATA GARCIA Report Released Date/Time: Aug 11, 2023 09:38 AM Reporting Lab: [facility] [address] Performing Lab: [facility] [address] [place] [facility] CBC & DIFF MONOCYTES/1 00 LEUKOCYTES IN BLOOD BY AUTOMATED COUNT 12.9 2.0 - 12.0 10/06 H Specimen Type: BLOOD Comment: Automated Differentia l Performed Ordering Provider: ATA GARCIA Report Released Date/Time: Aug 11, 2023 09:38 AM Reporting Lab: [facility] [address] Performing Lab: [facility] [address] [place] [facility] CBC & DIFF EOSINOPHILS /100 LEUKOCYTES IN BLOOD BY AUTOMATED COUNT 2.2 0.0 - 6.0 10/06 Specimen Type: BLOOD Comment: Automated Differentia l Performed Ordering Provider: ATA GARCIA Report Released Date/Time: Aug 11, 2023 09:38 AM Reporting Lab: [facility] [address] Performing Lab: [facility] [address] [place] [facility] CBC & DIFF BASOPHILS/1 00 LEUKOCYTES IN BLOOD BY MANUAL COUNT 0.2 0.0 - 2.0 10/06 Specimen Type: BLOOD Comment: Automated Differentia l Performed Ordering Provider: ATA GARCIA Report Released Date/Time: Aug 11, 2023 09:38 AM Reporting Lab: [facility] [address] Performing Lab: [facility] [address] [place] [facility] CBC & DIFF ERYTHROCYTE DISTRIBUTIO N WIDTH [RATIO] BY AUTOMATED COUNT 12.4 11.5 - 14.5 10/06 Specimen Type: BLOOD Comment: Automated Differentia l Performed Ordering Provider: ATA GARCIA Report Released Date/Time: Aug 11, 2023 09:38 AM Reporting Lab: [facility] [address] Performing Lab: [facility] [address] [place] [facility] CBC & DIFF LYMPHOCYTES [#/VOLUME] IN BLOOD BY AUTOMATED COUNT 1.43 1.0 - 4.0 10/06 Specimen Type: BLOOD Comment: Automated Differentia l Performed Ordering Provider: ATA GARCIA Report Released Date/Time: Aug 11, 2023 09:38 AM Reporting Lab: [facility] [address] Performing Lab: [facility] [address] [place] [facility] CBC & DIFF MONOCYTES [#/VOLUME] IN BLOOD BY AUTOMATED COUNT 0.69 0.1 - 1.0 10/06 Specimen Type: BLOOD Comment: Automated Differentia l Performed Ordering Provider: ATA GARCIA Report Released Date/Time: Aug 11, 2023 09:38 AM Reporting Lab: [facility] [address] Performing Lab: [facility] [address] [place] [facility] CBC & DIFF NEUTROPHILS [#/VOLUME] IN BLOOD BY AUTOMATED COUNT 3.09 2.0 - 7.7 10/06 Specimen Type: BLOOD Comment: Automated Differentia l Performed Ordering Provider: ATA GARCIA Report Released Date/Time: Aug 11, 2023 09:38 AM Reporting Lab: [facility] [address] Performing Lab: [facility] [address] [place] [facility] CBC & DIFF EOSINOPHILS [#/VOLUME] IN BLOOD BY AUTOMATED COUNT 0.12 0 - 0.5 10/06 Specimen Type: BLOOD Comment: Automated Differentia l Performed Ordering Provider: ATA GARCIA Report Released Date/Time: Aug 11, 2023 09:38 AM Reporting Lab: [facility] [address] Performing Lab: [facility] [address] [place] [facility] CBC & DIFF BASOPHILS [#/VOLUME] IN BLOOD BY AUTOMATED COUNT 0.01 0 - 0.2 10/06 Specimen Type: BLOOD Comment: Automated Differentia l Performed Ordering Provider: ATA GARCIA Report Released Date/Time: Aug 11, 2023 09:38 AM Reporting Lab: [facility] [address] Performing Lab: [address] [place] [facility] CBC & DIFF IG(META,MYE LO,PRO) 0.4 10/06 Specimen Type: BLOOD Comment: Automated Differentia l Performed Ordering Provider: ATA GARCIA Report Released Date/Time: Aug 11, 2023 09:38 AM Reporting Lab: [facility] [address] Performing Lab: [facility] [address] [place] [facility] CBC & DIFF IMMATURE GRANULOCYTE S [PRESENCE] IN BLOOD BY AUTOMATED COUNT 0.02 0 - 0.1 10/06 Specimen Type: BLOOD Comment: Automated Differentia l Performed Ordering Provider: ATA GARCIA Report Released Date/Time: Aug 11, 2023 09:38 AM Reporting Lab: [facility] [address] Performing Lab: [facility] [address] [place] [facility] COMPREHEN SIVE METABOLIC PANEL+MG CREATININE [MASS/VOLUM E] IN SERUM OR PLASMA 0.9 0.7 - 1.2 08/11 Specimen Type: PLASMA No comment entered. Ordering Provider: ATA GARCIA Report Released Date/Time: May 19, 2023 09:15 AM Reporting Lab: [facility] [address] Performing Lab: [facility] [address] [place] [facility] COMPREHEN SIVE METABOLIC PANEL+MG UREA NITROGEN [MASS/VOLUM E] IN SERUM OR PLASMA 13 8 - 26 08/11 Specimen Type: PLASMA No comment entered. Ordering Provider: ATA GARCIA Report Released Date/Time: May 19, 2023 09:15 AM Reporting Lab: [facility] [address] Performing Lab: [facility] [address] [place] [facility] COMPREHEN SIVE METABOLIC PANEL+MG GLUCOSE [MASS/VOLUM E] IN SERUM OR PLASMA 97 70 - 100 08/11 Specimen Type: PLASMA No comment entered. Ordering Provider: ATA GARCIA Report Released Date/Time: May 19, 2023 09:15 AM Reporting Lab: [facility] [address] Performing Lab: [facility] [address] [place] [facility] COMPREHEN SIVE METABOLIC PANEL+MG SODIUM [MOLES/VOLU ME] IN SERUM OR PLASMA 140 136 - 145 08/11 Specimen Type: PLASMA No comment entered. Ordering Provider: ATA GARCIA Report Released Date/Time: May 19, 2023 09:15 AM Reporting Lab: [facility] [address] Performing Lab: [facility] [address] [place] [facility] COMPREHEN SIVE METABOLIC PANEL+MG POTASSIUM [MOLES/VOLU ME] IN SERUM OR PLASMA 3.9 3.5 - 5.1 08/11 Specimen Type: PLASMA No comment entered. Ordering Provider: ATA GARCIA Report Released Date/Time: May 19, 2023 09:15 AM Reporting Lab: [facility] [address] Performing Lab: [facility] [address] [place] [facility] COMPREHEN SIVE METABOLIC PANEL+MG CHLORIDE [MOLES/VOLU ME] IN SERUM OR PLASMA 108 98 - 107 08/11 H Specimen Type: PLASMA No comment entered. Ordering Provider: ATA GARCIA Report Released Date/Time: May 19, 2023 09:15 AM Reporting Lab: [facility] [address] Performing Lab: [facility] [address] [place] [facility] COMPREHEN SIVE METABOLIC PANEL+MG CARBON DIOXIDE, TOTAL [MOLES/VOLU ME] IN SERUM OR PLASMA 26 22 - 29 08/11 Specimen Type: PLASMA No comment entered. Ordering Provider: ATA GARCIA Report Released Date/Time: May 19, 2023 09:15 AM Reporting Lab: [facility] [address] Performing Lab: [facility] [address] [place] [facility] COMPREHEN SIVE METABOLIC PANEL+MG CALCIUM [MASS/VOLUM E] IN SERUM OR PLASMA 8.8 8.4 - 10.2 08/11 Specimen Type: PLASMA No comment entered. Ordering Provider: ATA GARCIA Report Released Date/Time: May 19, 2023 09:15 AM Reporting Lab: [facility] [address] Performing Lab: [facility] [address] [place] [facility] COMPREHEN SIVE METABOLIC PANEL+MG PROTEIN [MASS/VOLUM E] IN SERUM OR PLASMA 6.5 6.0 - 8.3 08/11 Specimen Type: PLASMA No comment entered. Ordering Provider: ATA GARCIA Report Released Date/Time: May 19, 2023 09:15 AM Reporting Lab: [facility] [address] Performing Lab: [facility] [address] [place] [facility] COMPREHEN SIVE METABOLIC PANEL+MG ALBUMIN [MASS/VOLUM E] IN SERUM OR PLASMA 3.8 3.5 - 5.2 08/11 Specimen Type: PLASMA No comment entered. Ordering Provider: ATA GARCIA Report Released Date/Time: May 19, 2023 09:15 AM Reporting Lab: [facility] [address] Performing Lab: [facility] [address] [place] [facility] COMPREHEN SIVE METABOLIC PANEL+MG BILIRUBIN.T OTAL [MASS/VOLUM E] IN SERUM OR PLASMA 0.7 0.2 - 1.2 08/11 Specimen Type: PLASMA No comment entered. Ordering Provider: ATA GARCIA Report Released Date/Time: May 19, 2023 09:15 AM Reporting Lab: [facility] [address] Performing Lab: [facility] [address] [place] [facility] COMPREHEN SIVE METABOLIC PANEL+MG MAGNESIUM [MASS/VOLUM E] IN SERUM OR PLASMA 1.9 1.6 - 2.6 08/11 Specimen Type: PLASMA No comment entered. Ordering Provider: ATA GARCIA Report Released Date/Time: May 19, 2023 09:15 AM Reporting Lab: [facility] [address] Performing Lab: [facility] [address] [place] [facility] COMPREHEN SIVE METABOLIC PANEL+MG ANION GAP IN SERUM OR PLASMA 6 5 - 15 08/11 Specimen Type: PLASMA No comment entered. Ordering Provider: ATA GARCIA Report Released Date/Time: May 19, 2023 09:15 AM Reporting Lab: [facility] [address] Performing Lab: [facility] [address] [place] [facility] COMPREHEN SIVE METABOLIC PANEL+MG ALKALINE PHOSPHATASE [ENZYMATIC ACTIVITY/VO LUME] IN SERUM OR PLASMA 74 40 - 150 08/11 Specimen Type: PLASMA No comment entered. Ordering Provider: ATA GARCIA Report Released Date/Time: May 19, 2023 09:15 AM Reporting Lab: [facility] [address] Performing Lab: [facility] [address] [place] [facility] COMPREHEN SIVE METABOLIC PANEL+MG ALANINE AMINOTRANSF ERASE [ENZYMATIC ACTIVITY/VO LUME] IN SERUM OR PLASMA 18 <55 - 55 08/11 Specimen Type: PLASMA No comment entered. Ordering Provider: ATA GARCIA Report Released Date/Time: May 19, 2023 09:15 AM Reporting Lab: [facility] [address] Performing Lab: [facility] [address] [place] [facility] COMPREHEN SIVE METABOLIC PANEL+MG ASPARTATE AMINOTRANSF ERASE [ENZYMATIC ACTIVITY/VO LUME] IN SERUM OR PLASMA 23 <34 - 34 08/11 Specimen Type: PLASMA No comment entered. Ordering Provider: ATA GARCIA Report Released Date/Time: May 19, 2023 09:15 AM Reporting Lab: [facility] [address] Performing Lab: [facility] [address] [place] [facility] COMPREHEN SIVE METABOLIC PANEL+MG GLOMERULAR FILTRATION RATE/1.73 SQ M.PREDICTED [VOLUME RATE/AREA] IN SERUM, PLASMA OR BLOOD BY CREATININE- BASED FORMULA (CKD-EPI 2020) 87 60 08/11 Specimen Type: PLASMA No comment entered. Ordering Provider: ATA GARCIA Report Released Date/Time: May 19, 2023 09:15 AM Reporting Lab: [facility] [address] Performing Lab: [facility] [address] [place] [facility] CBC & DIFF LEUKOCYTES [#/VOLUME] IN BLOOD BY AUTOMATED COUNT 5.08 4.0 - 11.0 08/11 Specimen Type: BLOOD Comment: Automated Differentia l Performed Ordering Provider: ATA GARCIA Report Released Date/Time: May 19, 2023 09:15 AM Reporting Lab: [facility] [address] Performing Lab: [facility] [address] [place] [facility] CBC & DIFF ERYTHROCYTE S [#/VOLUME] IN BLOOD BY AUTOMATED COUNT 4.26 4.6 - 6.2 08/11 L Specimen Type: BLOOD Comment: Automated Differentia l Performed Ordering Provider: ATA GARCIA Report Released Date/Time: May 19, 2023 09:15 AM Reporting Lab: [facility] [address] Performing Lab: [facility] [address] [place] [facility] CBC & DIFF HEMOGLOBIN [MASS/VOLUM E] IN BLOOD 14.3 13.5 - 17.9 08/11 Specimen Type: BLOOD Comment: Automated Differentia l Performed Ordering Provider: ATA GARCIA Report Released Date/Time: May 19, 2023 09:15 AM Reporting Lab: [facility] [address] Performing Lab: [facility] [address] [place] [facility] CBC & DIFF HEMATOCRIT [VOLUME FRACTION] OF BLOOD BY AUTOMATED COUNT 41.9 41 - 54 08/11 Specimen Type: BLOOD Comment: Automated Differentia l Performed Ordering Provider: ATA GARCIA Report Released Date/Time: May 19, 2023 09:15 AM Reporting Lab: [facility] [address] Performing Lab: [facility] [address] [place] [facility] CBC & DIFF MCV [ENTITIC VOLUME] BY AUTOMATED COUNT 98.4 80 - 100 08/11 Specimen Type: BLOOD Comment: Automated Differentia l Performed Ordering Provider: ATA GARCIA Report Released Date/Time: May 19, 2023 09:15 AM Reporting Lab: [facility] [address] Performing Lab: [facility] [address] [place] [facility] CBC & DIFF MCH [ENTITIC MASS] BY AUTOMATED COUNT 33.6 27 - 33 08/11 H Specimen Type: BLOOD Comment: Automated Differentia l Performed Ordering Provider: ATA GARCIA Report Released Date/Time: May 19, 2023 09:15 AM Reporting Lab: [facility] [address] Performing Lab: [facility] [address] [place] [facility] CBC & DIFF MCHC [MASS/VOLUM E] BY AUTOMATED COUNT 34.1 32.0 - 37.5 08/11 Specimen Type: BLOOD Comment: Automated Differentia l Performed Ordering Provider: ATA GARCIA Report Released Date/Time: May 19, 2023 09:15 AM Reporting Lab: [facility] [address] Performing Lab: [facility] [address] [place] [facility] CBC & DIFF PLATELETS [#/VOLUME] IN BLOOD BY AUTOMATED COUNT 198 150 - 400 08/11 Specimen Type: BLOOD Comment: Automated Differentia l Performed Ordering Provider: ATA GARCIA Report Released Date/Time: May 19, 2023 09:15 AM Reporting Lab: [facility] [address] Performing Lab: [facility] [address] [place] [facility] CBC & DIFF PLATELET MEAN VOLUME [ENTITIC VOLUME] IN BLOOD BY AUTOMATED COUNT 9.6 7.4 - 10.4 08/11 Specimen Type: BLOOD Comment: Automated Differentia l Performed Ordering Provider: ATA GARCIA Report Released Date/Time: May 19, 2023 09:15 AM Reporting Lab: [facility] [address] Performing Lab: [facility] [address] [place] [facility] CBC & DIFF NEUTROPHILS /100 LEUKOCYTES IN BLOOD BY MANUAL COUNT 57.3 40.0 - 80.0 08/11 Specimen Type: BLOOD Comment: Automated Differentia l Performed Ordering Provider: ATA GARCIA Report Released Date/Time: May 19, 2023 09:15 AM Reporting Lab: [facility] [address] Performing Lab: [facility] [address] [place] [facility] CBC & DIFF LYMPHOCYTES /100 LEUKOCYTES IN BLOOD BY MANUAL COUNT 22.8 15.0 - 45.0 08/11 Specimen Type: BLOOD Comment: Automated Differentia l Performed Ordering Provider: ATA AGRCIA Report Released Date/Time: May 19, 2023 09:15 AM Reporting Lab: [facility] [address] Performing Lab: [facility] [address] [place] [facility] CBC & DIFF MONOCYTES/1 00 LEUKOCYTES IN BLOOD BY AUTOMATED COUNT 14.8 2.0 - 12.0 08/11 H Specimen Type: BLOOD Comment: Automated Differentia l Performed Ordering Provider: ATA GARCIA Report Released Date/Time: May 19, 2023 09:15 AM Reporting Lab: [facility] [address] Performing Lab: [facility] [address] [place] [facility] CBC & DIFF EOSINOPHILS /100 LEUKOCYTES IN BLOOD BY AUTOMATED COUNT 4.7 0.0 - 6.0 08/11 Specimen Type: BLOOD Comment: Automated Differentia l Performed Ordering Provider: ATA GARCIA Report Released Date/Time: May 19, 2023 09:15 AM Reporting Lab: [facility] [address] Performing Lab: [facility] [address] [place] [facility] CBC & DIFF BASOPHILS/1 00 LEUKOCYTES IN BLOOD BY MANUAL COUNT 0.4 0.0 - 2.0 08/11 Specimen Type: BLOOD Comment: Automated Differentia l Performed Ordering Provider: ATA GARCIA Report Released Date/Time: May 19, 2023 09:15 AM Reporting Lab: [facility] [address] Performing Lab: [facility] [address] [place] [facility] CBC & DIFF ERYTHROCYTE DISTRIBUTIO N WIDTH [RATIO] BY AUTOMATED COUNT 12.6 11.5 - 14.5 08/11 Specimen Type: BLOOD Comment: Automated Differentia l Performed Ordering Provider: ATA GARCIA Report Released Date/Time: May 19, 2023 09:15 AM Reporting Lab: [facility] [address] Performing Lab: [facility] [address] [place] [facility] CBC & DIFF LYMPHOCYTES [#/VOLUME] IN BLOOD BY AUTOMATED COUNT 1.16 1.0 - 4.0 08/11 Specimen Type: BLOOD Comment: Automated Differentia l Performed Ordering Provider: AAT GARCIA Report Released Date/Time: May 19, 2023 09:15 AM Reporting Lab: [facility] [address] Performing Lab: [facility] [address] [place] [facility] CBC & DIFF MONOCYTES [#/VOLUME] IN BLOOD BY AUTOMATED COUNT 0.75 0.1 - 1.0 08/11 Specimen Type: BLOOD Comment: Automated Differentia l Performed Ordering Provider: ATA GARCIA Report Released Date/Time: May 19, 2023 09:15 AM Reporting Lab: [facility] [address] Performing Lab: [facility] [address] [place] [facility] CBC & DIFF NEUTROPHILS [#/VOLUME] IN BLOOD BY AUTOMATED COUNT 2.91 2.0 - 7.7 08/11 Specimen Type: BLOOD Comment: Automated Differentia l Performed Ordering Provider: ATA GARCIA Report Released Date/Time: May 19, 2023 09:15 AM Reporting Lab: [facility] [address] Performing Lab: [facility] [address] [place] [facility] CBC & DIFF EOSINOPHILS [#/VOLUME] IN BLOOD BY AUTOMATED COUNT 0.24 0 - 0.5 08/11 Specimen Type: BLOOD Comment: Automated Differentia l Performed Ordering Provider: ATA GARCIA Report Released Date/Time: May 19, 2023 09:15 AM Reporting Lab: [facility] [address] Performing Lab: [facility] [address] [place] [facility] CBC & DIFF BASOPHILS [#/VOLUME] IN BLOOD BY AUTOMATED COUNT 0.02 0 - 0.2 08/11 Specimen Type: BLOOD Comment: Automated Differentia l Performed Ordering Provider: ATA GARCIA Report Released Date/Time: May 19, 2023 09:15 AM Reporting Lab: [facility] [address] Performing Lab: [facility] [address] [place] [facility] CBC & DIFF IG(META,MYE LO,PRO) 0.0 08/11 Specimen Type: BLOOD Comment: Automated Differentia l Performed Ordering Provider: ATA GARCIA Report Released Date/Time: May 19, 2023 09:15 AM Reporting Lab: [facility] [address] Performing Lab: [facility] [address] [place] [facility] CBC & DIFF IMMATURE GRANULOCYTE S [PRESENCE] IN BLOOD BY AUTOMATED COUNT 0.00 0 - 0.1 08/11 Specimen Type: BLOOD Comment: Automated Differentia l Performed Ordering Provider: ATA GARCIA Report Released Date/Time: May 19, 2023 09:15 AM Reporting Lab: [facility] [address] Performing Lab: [facility] [address] [place] [facility] POC INR(COAGU CHEK) INR IN BLOOD BY COAGULATION ASSAY 4.3 06/16 H Specimen Type: BLOOD No comment entered. Ordering Provider: KAMALA ROLLE Report Released Date/Time: Jun 16, 2023 08:46 AM Reporting Lab: [facility] [address] Performing Lab: [facility] [address] [place] [facility] HEMOGLOBI N A1C HEMOGLOBIN A1C/HEMOGLO BIN.TOTAL IN [...] May 05, 2023 03:50 PM Reporting Lab: [facility] [address] Performing Lab: [facility] [address] [place] [facility] CBC & DIFF LEUKOCYTES [#/VOLUME] IN BLOOD BY AUTOMATED COUNT 4.17 4.0 - 11.0 05/19 Specimen Type: BLOOD Comment: Automated Differentia l Performed Ordering Provider: ATA GARCIA Report Released Date/Time: Feb 24, 2023 09:32 AM Reporting Lab: [facility] [address] Performing Lab: [facility] [address] [place] [facility] CBC & DIFF ERYTHROCYTE S [#/VOLUME] IN BLOOD BY AUTOMATED COUNT 4.20 4.6 - 6.2 05/19 L Specimen Type: BLOOD Comment: Automated Differentia l Performed Ordering Provider: ATA GARCIA Report Released Date/Time: Feb 24, 2023 09:32 AM Reporting Lab: [facility] [address] Performing Lab: [facility] [address] [place] [facility] CBC & DIFF HEMOGLOBIN [MASS/VOLUM E] IN BLOOD 14.2 13.5 - 17.9 05/19 Specimen Type: BLOOD Comment: Automated Differentia l Performed Ordering Provider: ATA GARCIA Report Released Date/Time: Feb 24, 2023 09:32 AM Reporting Lab: [facility] [address] Performing Lab: [facility] [address] [place] [facility] CBC & DIFF HEMATOCRIT [VOLUME FRACTION] OF BLOOD BY AUTOMATED COUNT 41.2 41 - 54 05/19 Specimen Type: BLOOD Comment: Automated Differentia l Performed Ordering Provider: ATA GARCIA Report Released Date/Time: Feb 24, 2023 09:32 AM Reporting Lab: [facility] [address] Performing Lab: [facility] [address] [place] [facility] CBC & DIFF MCV [ENTITIC VOLUME] BY AUTOMATED COUNT 98.1 80 - 100 05/19 Specimen Type: BLOOD Comment: Automated Differentia l Performed Ordering Provider: ATA GARCIA Report Released Date/Time: Feb 24, 2023 09:32 AM Reporting Lab: [facility] [address] Performing Lab: [facility] [address] [place] [facility] CBC & DIFF MCH [ENTITIC MASS] BY AUTOMATED COUNT 33.8 27 - 33 05/19 H Specimen Type: BLOOD Comment: Automated Differentia l Performed Ordering Provider: ATA GARCIA Report Released Date/Time: Feb 24, 2023 09:32 AM Reporting Lab: [facility] [address] Performing Lab: [facility] [address] [place] [facility] CBC & DIFF MCHC [MASS/VOLUM E] BY AUTOMATED COUNT 34.5 32.0 - 37.5 05/19 Specimen Type: BLOOD Comment: Automated Differentia l Performed Ordering Provider: ATA GARCIA Report Released Date/Time: Feb 24, 2023 09:32 AM Reporting Lab: [facility] [address] Performing Lab: [facility] [address] [place] [facility] CBC & DIFF PLATELETS [#/VOLUME] IN BLOOD BY AUTOMATED COUNT 223 150 - 400 05/19 Specimen Type: BLOOD Comment: Automated Differentia l Performed Ordering Provider: ATA GARCIA Report Released Date/Time: Feb 24, 2023 09:32 AM Reporting Lab: [facility] [id number] Performing Lab: [facility] [address] [place] [facility] CBC & DIFF PLATELET MEAN VOLUME [ENTITIC VOLUME] IN BLOOD BY AUTOMATED COUNT 9.9 7.4 - 10.4 05/19 Specimen Type: BLOOD Comment: Automated Differentia l Performed Ordering Provider: ATA GARCIA Report Released Date/Time: Feb 24, 2023 09:32 AM Reporting Lab: [facility] [id number] Performing Lab: [facility] [phone] [place] [facility] CBC & DIFF NEUTROPHILS /100 LEUKOCYTES IN BLOOD BY MANUAL COUNT 51.6 40.0 - 80.0 05/19 Specimen Type: BLOOD Comment: Automated Differentia l Performed Ordering Provider: ATA GARCIA Report Released Date/Time: Feb 24, 2023 09:32 AM Reporting Lab: [facility] [phone] Performing Lab: [facility] [address] [place] [facility] [facility] CBC & DIFF LYMPHOCYTES /100 LEUKOCYTES IN BLOOD BY MANUAL COUNT 25.2 15.0 - 45.0 05/19 Specimen Type: BLOOD Comment: Automated Differentia l Performed Ordering Provider: ATA GARCIA Report Released Date/Time: Feb 24, 2023 09:32 AM Reporting Lab: [facility] [address] Performing Lab: [facility] [address] [place] [facility] CBC & DIFF MONOCYTES/1 00 LEUKOCYTES IN BLOOD BY AUTOMATED COUNT 15.3 2.0 - 12.0 05/19 H Specimen Type: BLOOD Comment: Automated Differentia l Performed Ordering Provider: ATA GARCIA Report Released Date/Time: Feb 24, 2023 09:32 AM Reporting Lab: [facility] [address] Performing Lab: [facility] [address] [place] [facility] CBC & DIFF EOSINOPHILS /100 LEUKOCYTES IN BLOOD BY AUTOMATED COUNT 7.2 0.0 - 6.0 05/19 H Specimen Type: BLOOD Comment: Automated Differentia l Performed Ordering Provider: ATA GARCIA Report Released Date/Time: Feb 24, 2023 09:32 AM Reporting Lab: [facility] [address] Performing Lab: [facility] [address] [place] [facility] CBC & DIFF BASOPHILS/1 00 LEUKOCYTES IN BLOOD BY MANUAL COUNT 0.5 0.0 - 2.0 05/19 Specimen Type: BLOOD Comment: Automated Differentia l Performed Ordering Provider: ATA GARCIA Report Released Date/Time: Feb 24, 2023 09:32 AM Reporting Lab: [facility] [address] Performing Lab: [facility] [address] [place] [facility] CBC & DIFF ERYTHROCYTE DISTRIBUTIO N WIDTH [RATIO] BY AUTOMATED COUNT 12.7 11.5 - 14.5 05/19 Specimen Type: BLOOD Comment: Automated Differentia l Performed Ordering Provider: ATA GARCIA Report Released Date/Time: Feb 24, 2023 09:32 AM Reporting Lab: [facility] [address] Performing Lab: [facility] [address] [place] [facility] CBC & DIFF LYMPHOCYTES [#/VOLUME] IN BLOOD BY AUTOMATED COUNT 1.05 1.0 - 4.0 05/19 Specimen Type: BLOOD Comment: Automated Differentia l Performed Ordering Provider: ATA GARCIA Report Released Date/Time: Feb 24, 2023 09:32 AM Reporting Lab: [facility] [address] Performing Lab: [facility] [address] [place] [facility] CBC & DIFF MONOCYTES [#/VOLUME] IN BLOOD BY AUTOMATED COUNT 0.64 0.1 - 1.0 05/19 Specimen Type: BLOOD Comment: Automated Differentia l Performed Ordering Provider: ATA GARCIA Report Released Date/Time: Feb 24, 2023 09:32 AM Reporting Lab: [facility] [address] Performing Lab: [facility] [address] [place] [facility] CBC & DIFF NEUTROPHILS [#/VOLUME] IN BLOOD BY AUTOMATED COUNT 2.15 2.0 - 7.7 05/19 Specimen Type: BLOOD Comment: Automated Differentia l Performed Ordering Provider: ATA GARCIA Report Released Date/Time: Feb 24, 2023 09:32 AM Reporting Lab: [facility] [address] Performing Lab: [facility] [address] [place] [facility] CBC & DIFF EOSINOPHILS [#/VOLUME] IN BLOOD BY AUTOMATED COUNT 0.30 0 - 0.5 05/19 Specimen Type: BLOOD Comment: Automated Differentia l Performed Ordering Provider: ATA GARCIA Report Released Date/Time: Feb 24, 2023 09:32 AM Reporting Lab: [facility] [address] Performing Lab: [facility] [address] [place] [facility] CBC & DIFF BASOPHILS [#/VOLUME] IN BLOOD BY AUTOMATED COUNT 0.02 0 - 0.2 05/19 Specimen Type: BLOOD Comment: Automated Differentia l Performed Ordering Provider: ATA GARCIA Report Released Date/Time: Feb 24, 2023 09:32 AM Reporting Lab: [facility] [address] Performing Lab: [facility] [address] [place] [facility] CBC & DIFF IG(META,MYE LO,PRO) 0.2 05/19 Specimen Type: BLOOD Comment: Automated Differentia l Performed Ordering Provider: ATA GARCIA Report Released Date/Time: Feb 24, 2023 09:32 AM Reporting Lab: [facility] [address] Performing Lab: [facility] [address] [place] [facility] CBC & DIFF IMMATURE GRANULOCYTE S [PRESENCE] IN BLOOD BY AUTOMATED COUNT 0.01 0 - 0.1 05/19 Specimen Type: BLOOD Comment: Automated Differentia l Performed Ordering Provider: ATA GARCIA Report Released Date/Time: Feb 24, 2023 09:32 AM Reporting Lab: [facility] [address] Performing Lab: [facility] [address] [place] [facility] PSA PROSTATE SPECIFIC AG [MASS/VOLUM E] IN SERUM OR PLASMA 0.01 <4.00 - 4.00 05/19 Specimen Type: SERUM No comment entered. Ordering Provider: KAMALA ROLLE Report Released Date/Time: May 05, 2023 03:50 PM Reporting Lab: [facility] [address] Performing Lab: [facility] [address] [place] [facility] TSH W/REFLEX TO FREE T4 THYROTROPIN [UNITS/VOLU ME] IN SERUM OR PLASMA 1.15 0.35 - 4.94 05/19 Specimen Type: PLASMA Comment: Automated Differentia l Performed Ordering Provider: KAMALA ROLLE Report Released Date/Time: May 05, 2023 04:25 PM Reporting Lab: [facility] [address] [facility] [address] Performing Lab: [facility] [address] [facility] [address] [place] [facility] Vital Signs Combined list of inpatient and outpatient Vital Signs from Department of Defense and Veterans Affairs, ranging from 12 months to all on record, depending upon the facility. Vital Sign Value Date Comments Source SYSTOLIC BLOOD PRESSURE 110 10/14/2023 08:30:08 [facility] DIASTOLIC BLOOD PRESSURE 73 10/14/2023 08:30:08 [facility] PULSE OXIMETRY 95% 10/14/2023 08:30:08 [facility] [place] [facility] WEIGHT 216.5 10/14/2023 08:30:08 [facility] [facility] BMI 31kg/m2 10/14/2023 08:30:08 [place] [facility] PAIN 1 10/14/2023 08:30:08 [facility] [facility] TEMPERATURE 98.2 10/14/2023 08:30:08 [place] [facility] PULSE 68 10/14/2023 08:30:08 [facility] RESPIRATION 16 10/14/2023 08:30:08 [place] [facility] [facility] SYSTOLIC BLOOD PRESSURE 139 10/06/2023 10:54:03 [facility] DIASTOLIC BLOOD PRESSURE 78 10/06/2023 10:54:03 [facility] PULSE OXIMETRY 96% 10/06/2023 10:54:03 [facility] [place] [facility] WEIGHT 215.7 10/06/2023 10:54:03 [facility] BMI 30kg/m2 10/06/2023 10:54:03 [facility] PAIN 0 10/06/2023 10:54:03 [facility] TEMPERATURE 98.3 10/06/2023 10:54:03 [facility] PULSE 59 10/06/2023 10:54:03 [facility] RESPIRATION 16 10/06/2023 10:54:03 [place] [facility] [facility] SYSTOLIC BLOOD PRESSURE 121 08/11/2023 09:04:01 [facility] DIASTOLIC BLOOD PRESSURE 80 08/11/2023 09:04:01 [facility] PULSE OXIMETRY 96% 08/11/2023 09:04:01 [facility] WEIGHT 217.9 08/11/2023 09:04:01 [facility] BMI 31kg/m2 08/11/2023 09:04:01 [facility] PAIN 0 08/11/2023 09:04:01 [facility] TEMPERATURE 98.2 08/11/2023 09:04:01 [facility] PULSE 68 08/11/2023 09:04:01 [facility] RESPIRATION 17 08/11/2023 09:04:01 [facility] SYSTOLIC BLOOD PRESSURE 111 05/19/2023 08:56:38 [facility] DIASTOLIC BLOOD PRESSURE 69 05/19/2023 08:56:38 [facility] PULSE OXIMETRY 95% 05/19/2023 08:56:38 [facility] WEIGHT 212.9 05/19/2023 08:56:38 [facility] BMI 30kg/m2 05/19/2023 08:56:38 [facility] PAIN 0 05/19/2023 08:56:38 [facility] TEMPERATURE 98.1 05/19/2023 08:56:38 [facility] PULSE 60 05/19/2023 08:56:38 [facility] RESPIRATION 16 05/19/2023 08:56:38 [facility] SYSTOLIC BLOOD PRESSURE 152 05/05/2023 16:08:15 [place] [facility] DIASTOLIC BLOOD PRESSURE 78 05/05/2023 16:08:15 [place] [facility] PULSE OXIMETRY 94% 05/05/2023 16:08:15 [facility] [facility] WEIGHT 213.1 05/05/2023 16:08:15 [facility] BMI 30kg/m2 05/05/2023 16:08:15 [facility] PAIN 3 05/05/2023 16:08:15 [facility] HEIGHT 70.6 05/05/2023 16:08:15 [facility] TEMPERATURE 99.1 05/05/2023 16:08:15 [facility] PULSE 73 05/05/2023 16:08:15 [facility] [facility] RESPIRATION 16 05/05/2023 16:08:15 [place] [facility] Encounters Combined list of: 1) Encounters from Department of [facility] Affairs facilities going back up to thelast 18 months. 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 Location Location Details Encounter Type Encounter Number Reason For Visit Attending Provider ADM Date DC Date Status Disposition Source [facility] 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
Diego ODOM MARIXA L 04/22 [facility] IS [facility] QNHP OL DIG ASSMT&MGMT 5-10 [id number] Diagnos is: ICD-10- CM Z51.81 Encount er for therape utic drug level monitor ing<br/ > MIKE HEAD 04/23 [facility] Outpatient Encounter [id number] Diego JONES NNKacie E 04/24 [facility] OFFICE O/P NEW MOD 45-59 MIN [id number] Diagnos is: ICD-10- CM M76.61 Samira s tendini tis, right leg<br/ > REI BEAULIEU AM R 05/05 [facility] Outpatient Encounter [id number] 05/12 [facility] IS [facility] ELECTROCAR DIOGRAM COMPLETE [id number] Diagnos is: ICD-10- CM Z13.6 Encount er for screeni ng for cardiov ascular disorde rs
MENG US 05/20 [facility] IS [facility] OFFICE O/P EST MOD 30-39 MIN [id number] Diagnos is: ICD-10- CM Z01.818 Encount er for other preproc edural examina tion
TAYLER FRANCO IDGETTE M 05/20 [facility] 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
DOMINIQUE ARGUETA 05/20 [facility] PRO PHONE CALL 11-20 MIN [id number] Diagnos is: ICD-10- CM Z51.81 Encount er for therape utic drug level monitor ing<br/ > ADILENE,DI NAH 05/20 [facility] IS [facility] QNHP OL DIG ASSMT&MGMT 21+ [id number] Diagnos is: ICD-10- CM Z79.01 roasterman (curren t) use of anticoa gulants
ADILENE,DI NAH 05/21 [facility] Outpatient Encounter [id number] Diagnos is: ICD-10- CM Z01.818 Encount er for other preproc edural examina tion
ELIZABETH SAUER 05/23 [facility] IS [facility] PRO PHONE CALL 5-10 MIN [id number] Diagnos is: ICD-10- CM Z71.9 Direct Mail Clerk ing, unspeci fied
TAYLER CAIN M 06/05 [facility] HC PRO PHONE CALL 21-30 MIN [id number] Diagnos is: ICD-10- CM Z79.01 halfway (curren t) use of anticoa gulants
ADILENE,DI NAH 06/09 [facility] Outpatient Encounter [id number] Diagnos is: ICD-10- CM Z01.818 Encount er for other preproc edural examina tion
TAYLER FRANCO M 06/11 [facility] [place] [facility] Outpatient Encounter [id number] 06/11 [place] [facility] [place] [facility] Outpatient Encounter [id number] 06/16 [place] [facility] [place] [facility] Outpatient Encounter [id number] 06/16 [facility] 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
Oleg GARCIA OBIND 06/17 [facility] THER/PROPH /DIAG INJ SC/IM [id number] Diagnos is: ICD-10- CM Z79.899 Other senior living (curren t) drug therapy
CHENTELBRAFRANCESON JORDYN K 06/17 [facility] PRO PHONE CALL 11-20 MIN [id number] Diagnos is: ICD-10- CM Z51.81 Encount er for therape utic drug level monitor ing<br/ > Philip CAI L 06/17 [facility] [place] [facility] Outpatient Encounter [id number] 06/18 [facility] PRO PHONE CALL 5-10 MIN [id number] Diagnos is: ICD-10- CM Z71.9 Direct Mail Clerk ing, unspeci fied
TAYLER CAIN 06/20 [facility] [place] [facility] Outpatient Encounter [id number] THERESA,CIS -ARK 06/24 [facility] [place] [facility] Outpatient Encounter [id number] REI BEAULIEU AM 06/24 [facility] [place] [facility] Outpatient Encounter [id number] 06/24 [facility] [place] [facility] Outpatient Encounter [id number] SYSTEM,CIS -ARK 06/24 [facility] [place] [facility] Outpatient Encounter [id number] MEENU CORTÉS 06/24 [facility] IS [facility] OFFICE O/P EST HI 40-54 MIN [id number] Diagnos is: ICD-10- CM I48.91 Unspeci fied atrial fibrill ation<b r/> MEENU CORTÉS 06/24 [facility] Outpatient Encounter [id number] Diagnos is: ICD-10- CM M77.31 Calcane al spur, right foot
REI BEAULIEU AM R 06/24 [facility] ANESTH LOWER LEG SURGERY [id number] REI BEAULIEU AM R 06/24 [facility] SPECIAL ANESTHESIA SERVICE [id number] Diagnos is: ICD-10- CM M77.31 Calcane al spur, right foot
MEENU CORTÉS 06/24 [facility] [place] [facility] Outpatient Encounter [id number] 06/24 [facility] Outpatient Encounter [id number] Diagnos is: ICD-10- CM Z98.1 Arthrod esis status< br/> REI BEAULIEU AM R 06/25 [facility] [place] [facility] Outpatient Encounter [id number] 07/02 [facility] [place] [facility] Outpatient Encounter [id number] 07/03 [facility] [place] [facility] Outpatient Encounter [id number] POEPPING,H EATHER L 07/03 [place] [facility] [place] [facility] Outpatient Encounter [id number] 07/08 [place] [facility] [place] [facility] Outpatient Encounter [id number] 07/08 [place] [facility] [place] [facility] Outpatient Encounter [id number] 07/08 [place] [facility] [place] [facility] Outpatient Encounter [id number] 07/11 [place] [facility] [place] [facility] HC PRO PHONE CALL 11-20 MIN [id number] Diagnos is: ICD-10- CM Z51.81 Encount er for therape utic drug level monitor ing<br/ > MIKE HEAD NAH 07/11 [facility] POSTOP FOLLOW-UP VISIT [id number] Diagnos is: ICD-10- CM Z98.1 Arthrod esis status< br/> REI BEAULIEU AM 07/15 [facility] [place] [facility] Outpatient Encounter [id number] 07/22 [place] [facility] [place] [facility] Outpatient Encounter [id number] 07/22 [place] [facility] [place] [facility] Outpatient Encounter [id number] 07/23 [place] [facility] [place] [facility] HC PRO PHONE CALL 11-20 MIN [id number] Diagnos is: ICD-10- CM Z51.81 Encount er for therape utic drug level monitor ing<br/ > POEPPING,H EATHER L 07/23 [place] [facility] [place] [facility] Outpatient Encounter [id number] 08/12 [place] [facility] 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
Oleg GARCIA OBIND 08/12 [place] [facility] 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
DOMINIQUE ARGUETA B 08/12 [place] [facility] Outpatient Encounter [id number] 08/12 [facility] PRO PHONE CALL 11-20 MIN [id number] Diagnos is: ICD-10- CM Z51.81 Encount er for therape utic drug level monitor ing<br/ > NORMA SANDERS 08/13 [place] [facility] POSTOP FOLLOW-UP VISIT [id number] Diagnos is: ICD-10- CM Z98.1 Arthrod esis status< br/> REI BEAULIEU AM R 08/26 [facility] QNHP OL DIG ASSMT&MGMT 11-20 [id number] Diagnos is: ICD-10- CM I48.91 Unspeci fied atrial fibrill ation<b r/> DESLAURISMITH SWALKER M 08/27 [place] [facility] 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
Diego ODOM 09/09 [place] [facility] [place] [facility] Outpatient Encounter [id number] 09/25 [place] [facility] [place] [facility] Outpatient Encounter [id number] 09/25 [place] [facility] [place] [facility] Outpatient Encounter [id number] 09/25 [place] [facility] [place] [facility] QNHP OL DIG ASSMT&MGMT 5-10 [id number] Diagnos is: ICD-10- CM Z51.81 Encount er for therape utic drug level monitor ing<br/ > Diego NI 09/26 [place] [facility] [place] [facility] Outpatient Encounter [id number] 10/04 [place] [facility] [place] [facility] Outpatient Encounter [id number] 10/06 [place] [facility] [place] [facility] 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
JEFF THOMPSON 10/07 [place] [facility] [place] [facility] Outpatient Encounter [id number] LUIS F CORDOBA 10/09 [place] [facility] [place] [facility] Outpatient Encounter [id number] 10/21 [place] [facility] [place] [facility] Outpatient Encounter [id number] 10/21 [place] [facility] [place] [facility] Outpatient Encounter [id number] 10/21 [place] [facility] [place] [facility] QNHP OL DIG ASSMT&MGMT 5-10 [id number] Diagnos is: ICD-10- CM Z51.81 Encount er for therape utic drug level monitor ing<br/ > KEYSHA LY 10/22 [place] [facility] [place] [facility] OCTREOTIDE INJECTION, DEPOT [id number] [id number] Diagnos is: ICD-10- CM Z79.899 Other senior living (curren t) drug therapy
JEFF THOMPSON Y 11/04 [place] [facility] SELF-MGMT EDUC & TRA[place] 1 [place] [id number] [id number] Diagnos is: ICD-10- CM Z78.9 Other specifi ed health status< br/> GAVI CHOWDHURY E 11/06 [facility] SELF-MGMT EDUC & TRA[place] 1 [place] [id number] Diagnos is: ICD-10- CM R52 Pain, unspeci fied
GAVI CHOWDHURY 11/11 [facility] Outpatient Encounter [id number] Diagnos is: ICD-10- CM Z78.9 Other specifi ed health status< br/> GAVI CHOWDHURY 11/14 [facility] Outpatient Encounter [id number] 12/01 [facility] 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
Oleg GARCIA OBIND 12/02 [facility] OCTREOTIDE INJECTION, DEPOT [id number] Diagnos is: ICD-10- CM Z51.11 Encount er for antineo plastic chemoth erapy<b r/> STELLA BARBA 12/02 [facility] QNHP OL DIG ASSMT&MGMT 11-20 [id number] Diagnos is: ICD-10- CM Z51.81 Encount er for therape utic drug level monitor ing<br/ > NORMA SANDERS 12/03 [facility] Outpatient Encounter [id number] Diego JONES 12/03 [facility] Outpatient Encounter [id number] 12/05 [place] [facility] Outpatient Encounter [phone] 12/30 [facility] ACUPUNCT W/O STIMUL 15 MIN [id number] Diagnos is: ICD-10- CM M54.50 Low back pain, unspeci fied
EVELYN KLEIN 12/30 [facility] 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
Diego ODOM 12/30 [facility] Outpatient Encounter [id number] 12/30 [facility] QNHP OL DIG ASSMT&MGMT 5-10 [id number] Diagnos is: ICD-10- CM Z51.81 Encount er for therape utic drug level monitor ing<br/ > ITALO CHANDLER 12/31 [facility] ELECTROCAR DIOGRAM COMPLETE [id number] [phone] Diagnos is: ICD-10- CM Z13.6 Encount er for screeni ng for cardiov ascular disorde rs
CLAUDIA ADAMS A 12/31 [facility] OFFICE O/P EST LOW 20-29 MIN [id number] Diagnos is: ICD-10- CM I48.91 Unspeci fied atrial fibrill ation<b r/> AB JACK KATZ 12/31 [facility] [place] [facility] Outpatient Encounter [id number] 01/13 [place] [place] [facility] Outpatient Encounter [id number] 01/13 [place] [facility] ACUPUNCT W/O STIMUL 15 MIN [id number] Diagnos is: ICD-10- CM M54.50 Low back pain, unspeci fied
[place],KE NDA BOKJALEE 01/13 [place] [facility] Outpatient Encounter [id number] 01/14 [facility] PRO PHONE CALL 11-20 MIN 76126-7.61 [id number] Diagnos is: ICD-10- CM Z51.81 Encount er for therape utic drug level monitor ing<br/ > MIKE HEAD 01/14 [facility] 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
Diego ODOM MARIXA L 01/27 [facility] QNHP OL DIG ASSMT&MGMT 11-20 [id number] [id number] Diagnos is: ICD-10- CM Z86.718 Persona l history of other venous thrombo sis and embolis m
DESLAURISMITH SWALKER M 01/27 [facility] ACUPUNCT W/O STIMUL 15 MIN [id number] [id number] Diagnos is: ICD-10- CM M54.50 Low back pain, unspeci fied
KOKKILA,KE NDA BOKJALEE 01/27 [facility] ACUPUNCT W/O STIMUL 15 MIN 27632-6.61 [id number] Diagnos is: ICD-10- CM M54.50 Low back pain, unspeci fied
HARLAN SMITH 02/12 [place] [facility] [place] [facility] Outpatient Encounter [id number] 02/17 [place] [facility] [place] [facility] Outpatient Encounter [id number] 02/17 [place] [facility] QNHP OL DIG ASSMT&MGMT 5-10 [id number] Diagnos is: ICD-10- CM Z51.81 Encount er for therape utic drug level monitor ing<br/ > LUIS F SPRING TTHEW S 02/17 [place] [facility] Outpatient Encounter [id number] 02/20 [place] [facility] 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
Oleg GARCIA OBXIMENA 02/24 [facility] THER/PROPH /DIAG INJ SC/IM 93311-4.61 [id number] Diagnos is: ICD-10- CM Z79.899 Other senior living (curren t) drug therapy
JORDYN ZEPEDA 02/24 [place] [facility] ACUPUNCT W/O STIMUL 15 MIN 01268-5.61 [id number] Diagnos is: ICD-10- CM M54.50 Low back pain, unspeci fied
HARLAN SMITH 02/27 [place] [facility] [place] [facility] Outpatient Encounter [id number] 03/06 [place] [facility] [place] [facility] Outpatient Encounter [id number] 03/19 [place] [facility] [place] [facility] Outpatient Encounter [id number] 03/20 [place] [facility] [facility] QNHP OL DIG ASSMT&MGMT 5-10 [id number] [id number] Diagnos is: ICD-10- CM Z51.81 Encount er for therape utic drug level monitor ing<br/ > ITALO CHANDLER 03/20 [place] [facility] Outpatient Encounter [id number] 03/23 [place] [facility] ACUPUNCT W/O STIMUL 15 MIN [id number] [id number] Diagnos is: ICD-10- CM M54.50 Low back pain, unspeci fied
HARLAN SMITH 03/26 [place] [facility] Outpatient Encounter [id number] 04/08 [place] [facility] Outpatient Encounter [id number] 04/08 [place] [facility] PRO PHONE CALL 11-20 MIN [id number] [id number] Diagnos is: ICD-10- CM Z51.81 Encount er for therape utic drug level monitor ing<br/ > POEPPING,H EATHER L 04/09 [place] [facility] ACUPUNCT W/O STIMUL 15 MIN [id number] [id number] Diagnos is: ICD-10- CM M54.50 Low back pain, unspeci fied
EVELYN KLEIN 04/14 [facility] 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
Diego SINGH 04/21 [facility] QNHP OL DIG ASSMT&MGMT 5-10 [id number] [id number] Diagnos is: ICD-10- CM Z51.81 Encount er for therape utic drug level monitor ing<br/ > JEZRSOALINE Cortez 04/21 [place] [facility] [place] [facility] Outpatient Encounter [id number] 05/05 [place] [facility] [place] [facility] Outpatient Encounter [id number] 05/05 [place] [facility] [place] [facility] 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
Kacie ROLLE 05/05 [place] [facility] [place] [facility] HC PRO PHONE CALL 11-20 MIN [id number] [id number] Diagnos is: ICD-10- CM Z51.81 Encount er for therape utic drug level monitor ing<br/ > KEYSHA LY 05/06 [place] [facility] [place] [facility] Outpatient Encounter [id number] 05/11 [place] [facility] [place] [facility] Outpatient Encounter [id number] 05/11 [place] [facility] [place] [facility] Outpatient Encounter [id number] 05/11 [place] [facility] [place] [facility] HC PRO PHONE CALL 11-20 MIN [id number] [id number] Diagnos is: ICD-10- CM Z79.01 halfway (curren t) use of anticoa gulants
ITALO CHANDLER 05/11 [place] [facility] [place] [facility] Outpatient Encounter [id number] 05/19 [place] [facility] [place] [facility] 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
Oleg GARCIA OBIND 05/19 [place] [facility] [place] [facility] 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
ODALIS SALINAS 05/19 [place] [facility] [place] [facility] Outpatient Encounter [id number] 05/19 [facility] [place] [facility] HC PRO PHONE CALL 11-20 MIN [id number] [id number] Diagnos is: ICD-10- CM Z79.01 roasterman (curren t) use of anticoa gulants
ROSALINE STORY 05/20 [facility] ACUPUNCT W/O STIMUL 15 MIN [id number] [id number] Diagnos is: ICD-10- CM M54.2 Cervica lgia
HARLAN SMITH 05/21 [place] [facility] [place] [facility] Outpatient Encounter [id number] [id number] 06/02 [place] [facility] [place] [facility] Outpatient Encounter [id number] [id number] 06/02 [place] [facility] [place] [facility] HC PRO PHONE CALL 11-20 MIN [id number] [id number] Diagnos is: ICD-10- CM Z51.81 Encount er for therape utic drug level monitor ing<br/ > LUIS F DICKSON 06/03 [place] [facility] [place] [facility] Outpatient Encounter [id number] 06/16 [place] [facility] [place] [facility] 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
JOMAR KIMBALL 06/16 [place] [facility] [place] [facility] HC PRO PHONE CALL 11-20 MIN [id number] [id number] Diagnos is: ICD-10- CM Z51.81 Encount er for therape utic drug level monitor ing<br/ > LUIS F SPRING TTHEW S 06/16 [place] [facility] [place] [facility] ACUPUNCT W/O STIMUL 15 MIN [id number] [id number] Diagnos is: ICD-10- CM M54.2 Cervica lgia
EVELYN KLEIN 06/17 [place] [facility] [place] [facility] Outpatient Encounter [id number] 06/23 [place] [facility] [place] [facility] Outpatient Encounter [id number] [id number] 06/23 [place] [facility] [place] [facility] HC PRO PHONE CALL 11-20 MIN [id number] [id number] Diagnos is: ICD-10- CM Z51.81 Encount er for therape utic drug level monitor ing<br/ > FADIA SORIA 06/24 [place] [facility] [place] [facility] Outpatient Encounter [id number] 06/30 [place] [facility] [place] [facility] ACUPUNCT W/O STIMUL 15 MIN [id number] [id number] Diagnos is: ICD-10- CM M54.50 Low back pain, unspeci fied
HARLAN SMITH 07/03 [place] [facility] [place] [facility] Outpatient Encounter [id number] 07/09 [place] [facility] [place] [facility] Outpatient Encounter [id number] 07/09 [place] [facility] [place] [facility] QNHP OL DIG ASSMT&MGMT 5-10 [id number] [id number] Diagnos is: ICD-10- CM Z51.81 Encount er for therape utic drug level monitor ing<br/ > LUIS F SPRING TTHEW S 07/09 [place] [facility] [place] [facility] 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
MONSEBROTE N,MONTRELL L 07/14 [place] [facility] [place] [facility] Outpatient Encounter [id number] 07/20 [place] [facility] [place] [facility] Outpatient Encounter [id number] 07/28 [place] [facility] [place] [facility] Outpatient Encounter [id number] 07/28 [place] [facility] [place] [facility] QNHP OL DIG ASSMT&MGMT 5-10 [id number] [id number] Diagnos is: ICD-10- CM Z51.81 Encount er for therape utic drug level monitor ing<br/ > Diego NI M 07/29 [place] [facility] [place] [facility] 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
TARCHAND,G OBIND 08/11 [place] [facility] [place] [facility] 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
TALON CASANOVA D 08/11 [place] [facility] [place] [facility] Outpatient Encounter [id number] 08/12 [place] [facility] [place] [facility] 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
Oleg GARCIA OBIND 08/20 [place] [facility] [place] [facility] Outpatient Encounter [id number] 08/26 [place] [facility] [place] [facility] Outpatient Encounter [id number] 08/26 [place] [facility] [place] [facility] QNHP OL DIG ASSMT&MGMT 5-10 [id number] [id number] Diagnos is: ICD-10- CM Z51.81 Encount er for therape utic drug level monitor ing<br/ > JEANNETTE GARCIA 08/27 [place] [facility] [place] [facility] 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
ODALIS SALINAS 09/08 [place] [facility] Outpatient Encounter [id number] 09/[facility] MTMS BY PHARM EST 15 MIN [id number] [id number] Diagnos is: ICD-10- CM Z79.01 roasterman (curren t) use of anticoa gulants
ITALO CHANDLER 09/11 [place] [facility] [place] [facility] Outpatient Encounter [id number] 09/22 [place] [facility] [place] [facility] Outpatient Encounter [id number] [id number] 09/23 [place] [facility] [place] [facility] Outpatient Encounter [id number] 09/23 [place] [facility] [place] [facility] Outpatient Encounter [id number] 09/24 [place] [facility] [place] [facility] PRO PHONE CALL 11-20 MIN [id number] [id number] Diagnos is: ICD-10- CM Z51.81 Encount er for therape utic drug level monitor ing<br/ > POEPBRIAN,H EATHER L 09/24 [place] [facility] [place] [facility] 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
MONSEBROTE N,MONTRELL L 10/06 [place] [facility] [place] [facility] 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
TARCHAND,G OBIND 10/06 [place] [facility] [place] [facility] QNHP OL DIG ASSMT&MGMT 11-20 [id number] [id number] Diagnos is: ICD-10- CM Z79.01 roasterman (curren t) use of anticoa gulants
NORMA SANDERS 10/06 [place] [facility] [place] [facility] Outpatient Encounter [id number] [id number] 10/07 [place] [facility] [place] [facility] Outpatient Encounter [id number] [id number] 10/08 [place] [facility] [place] [facility] 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
SILVIA RAMIREZ 10/14 [place] [facility] [place] [facility] Outpatient Encounter [id number] WILLIAM PETERS 10/19 [facility] [place] [facility] Outpatient Encounter [id number] [id number] 10/20 [facility] [place] [facility] Outpatient Encounter [id number] [id number] HEIDI ZIMMERMAN 10/23 [facility] Procedures Combined list of: 1) Procedures from Department of [facility] Affairs facilities going back up to thelast 18 months, not all [place] non-surgical procedures are included; 2) All procedures from the Department of [facility] facilities. Procedure Procedure Type Code Date Perfomer Comments Sourjoselyn e right achilles tendon and bone spur debridement, gastrocnemius rece ion ANESTH LOWER LEG SURGERY 89583 2 JIGNESH BEAULIEU [facility] COLONOSCOPY, FLEXIBLE; WITH BIOPSY, SINGLE OR MULTIPLE [...] COST TO PHYSICIAN OR OTHER QUALIFIED HEALTH GENERATION TECHNOLOGIST 1 DoD PRESCRIPTION OF OPTICAL AND PHYSICAL [...] MELANOMA), WITH MEDICAL DIAGNOSTIC EVALUATION; SUBSEQUENT 0 [facility] PRESCRIPTION OF OPTICAL AND PHYSICAL CHARACTERISTICS OF AND FITTING OF CONTACT LENS, WITH MEDICAL SUPERVISION OF ADAPTATION; CORNEAL LENS, BOTH EYES, EXCEPT FOR APHAKIA 0 [facility] Social History Combined list of available smoking, tobacco, and other social history from 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 [facility] Plan of Care List of future care activities from Department of 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 Additional future care activities may be listed in the Assessment and Plan section. Date/Time Care Activity Care Activity Detail Facili ty 11/05/2023 AMBULATORY - MEDICINE AMBULATORY - [facility]IC[facility]
--- OUTSIDE RECORDS SUMMARY | 2023-10-25 20:15 | XMS_ITS | Encounter Summary ---
Author Name [facility] Organization [facility] Address [address] [place] [address] Support Name Relationship Address Phone Arti CORONEL Next of Kin [phone] [phone] ADITYA MALIN Emergency Contact [address] [place] [address] Insurance Providers: All historical and current Section Date Range: From patient's date of to the date document was created. This section includes the names of all active insurance providers for the patient. Insurance Provider Type of Coverage Plan Name Start of Policy Coverage End of Policy Coverage Group Number Member ID Insurance Provider's Telephone Number Policy Hurley's Name Patient's Relationship to Policy Hurley MEDICARE (WNR) MEDICARE (M) PART A May 15, 2009 PART A [id number] [phone] ELLE CORONEL PATIENT MEDICARE (WNR) MEDICARE (M) PART B May 15, 2009 PART B [id number] [phone] ELLE CORONEL PATIENT Selected Encounter This section includes the information on record at [place] for the Encounter. Date/Time Encounter Type Encounter Description Reason Provider Source Oct 06, 2023 11:00 AM OFFICE O/P EST HI 40 MIN ONCOLOGY/TUMOR ICD-10-CM C7A.00 Malignant carcinoid tumor of unspecified site VICTORIA GARCIA Kacie Encounter Template Text not used by [place] Assessments - Encounter Diagnoses This section includes the primary and secondary diagnoses documented for the Encounter. Date/Time Primary/Secondary Diagnosis Diagnosis Name Provider Source Oct 06, 2023 12:34 PM PRIMARY Malignant carcinoid tumor of unspecified site VICTORIA GARCIA [facility] Oct 06, 2023 12:34 PM SECONDARY Abnormal findings on diagnostic imaging of prt VICTORIA Reeder [facility] Oct 06, 2023 12:34 PM SECONDARY Carcinoma in situ of prostate VICTORAI GARCIA [facility] Oct 06, 2023 12:34 PM SECONDARY Secondary carcinoid tumors of bone VICTORIA GARCIA [facility] Oct 06, 2023 12:34 PM SECONDARY Secondary carcinoid tumors of liver [facility] [place] Plan of Treatment: Future Appointments (+ 6 months) and Future Tests (+/- 45 days) The Plan of Treatment section includes future care activities for the patient from all [facility] [facility] This section includes future appointments and future orders which are active, pending or scheduled. Future Appointments This section includes appointments that were scheduled to occur 6 months from the date of the Encounter, up to a maximum of 20 appointments. The data comes from all [facility]. Appointment Date/Time Appointment Type Appointme nt Facility Name Oct 14, 2023 09:00 AM AMBULATORY - MEDICINE [facility] Nov 05, 2023 09:00 AM AMBULATORY - MEDICINE [facility] Dec 09, 2023 08:00 AM AMBULATORY - NONE [facility] Dec 09, 2023 09:00 AM AMBULATORY MEDICINE [facility] Active, Pending, and Scheduled Orders This section includes a listing of several types of active, pending, and scheduled orders, including clinic medications orders, diagnostic test orders, procedure orders and consult orders; where the start date of the order is 45 days before the date of the Encounter or 45 days after the date of theEncounter. The data comes from all [facility]. Test Date/Time Test Type Test Details Facility Name Oct 14, 2023 09:10 AM Consult Order COMM[facility]ITY CARE-MEDICAL ONCOLOGY Cons Dairy Technologist's Choice [facility] Lab Results: +/- 30 days of the encounter This section includes the Chemistry and Hematology Lab Results on record with [place] for the patient. Radiology Reports and Pathology Reports are provided separately, in subsequent sections. Lab Results This section contains the Chemistry/Hematology Results that were resulted 30 days before or 30 daysafter the date of the Encounter. Date/Time Source Result Type Result - Unit Interpretation Reference Range Comment Oct 06, 2023 09:24 AM [facility] PT/INR(ANTICOAG) Specimen Type: PLASMA No comment entered. Ordering Provider: MIRA GARCIA Report Released Date/Time: Aug 27, 2023 09:50 AM Reporting Lab: [facility] [id number] Performing Lab: [facility] [id number] .INR 2.5 H 0.8-1.1 .PT 29.3 H 9.4-12.5 Oct 06, 2023 09:23 AM [facility] COMPREHENSIVE METABOLIC PANEL+MG Specimen Type: PLASMA Comment: Automated Differential Performed Ordering Provider: PRETTY GARCIA ND Report Released Date/Time: Aug 11, 2023 09:38 AM Reporting Lab: [facility] [id number] Performing Lab: [facility] [id number] CREATININE 0.9 0.7-1.2 UREA NITROGEN 17 8-26 GLUCOSE 118 H 70-100 SODIUM 140 136-145 POTASSIUM 4.0 3.5-5.1 CHLORIDE 107 98-107 CO2 26 22-29 CALCIUM 8.9 8.4-10.2 PROTEIN,TOTAL 6.4 6.0-8.3 ALBUMIN 3.8 3.5-5.2 BILIRUBIN, TOTAL 1.0 0.2-1.2 MAGNESIUM 2.0 1.6-2.6 ANION GAP 7 5-15 ALKALINE PHOSPHATASE 78 40-150 ALT/SGPT 20 <55 AST/SGOT 19 <34 .CREAT EGFR(CKD-EPI) 87 >60 Oct 06, 2023 09:23 AM [facility] CBC & DIFF Specimen Type: BLOOD Comment: Automated Differential Performed Ordering Provider: PRETTY GARCIA ND Report Released Date/Time: Aug 11, 2023 09:38 AM Reporting Lab: [facility] [id number] Performing Lab: [facility] [id number] WBC 5.36 4.0-11.0 RBC 4.28 L 4.6-6.2 HGB 14.2 13.5-17.9 HCT 41.9 41-54 MCV 97.9 80-100 MCH 33.2 H 27-33 MCHC 33.9 32.0-37.5 PLT 219 150-400 MPV 9.6 7.4-10.4 NEUT 57.6 40.0-80.0 LYMPHS 26.7 15.0-45.0 MONO 12.9 H 2.0-12.0 EOSINO 2.2 0.0-6.0 BASO 0.2 0.0-2.0 RDW 12.4 11.5-14.5 ABS LYMPH 1.43 1.0-4.0 ABS MONO 0.69 0.1-1.0 ABS NEUT 3.09 2.0-7.7 ABS EOS 0.12 0-0.5 ABS BASO 0.01 0-0.2 IG(META,MYELO,P RO) 0.4 ABS IMMATURE GRAN 0.02 0-0.1 Vital Signs: All taken on the encounter date This section contains inpatient and outpatient Vital Signs collected on the date of the Encounter. Date/Time Temperature Pulse Blood Pressure Respiratory Rate SP02 Pain Height Weight Body Mass Index Source Oct 06, 2023 10:54 AM 98.3 F 59 /min 139/78 mm[Hg] 16 /min 96 % 0 215.7 lb 30 [place] [facility] Social History: Smoking Status (Most current) and Tobacco Use (All prior to encounter date) This section includes the most current, and the historical, smoking and tobacco- related health factors from the [place] facility where the Encounter took place. Current Smoking Status This section includes the most current smoking, or tobacco-related health factor, from the [place] facility where the Encounter took place. Date/Time Current Smoking Status Comment Thiago stephens May 05, 2023 04:00 PM VA-TOBACCO NEVER USED [facility] Tobacco Use History This section includes a history of the smoking, or tobacco-related health factors, that were collected on or before the date of the Encounter. The data comes from the [place] facility where the Encounter took place. Date/Time Smoking Status/Tobacco Use Comment F acpablo Apr 04, 2022 08:30 AM VA-TOBACCO NEVER USED [facility] May 15, 2021 10:00 AM VA-TOBACCO NEVER USED [facility] Oct 05, 2019 10:05 AM VA-TOBACCO NEVER USED [facility] Oct 20, 2018 12:28 PM INPT NO TOBACCO USE IN LAST 30 D AYS [facility] Sep 15, 2018 01:21 PM VA-TOBACCO NEVER USED [facility] Aug 11, 2017 08:54 AM LIFETIME NON-TOBACCO USER [facility] Jul 08, 2016 08:07 AM LIFETIME NON-TOBACCO USER [facility] May 09, 2015 02:31 PM LIFETIME NON-TOBACCO USER [facility] Apr 14, 2014 08:41 AM LIFETIME NON-TOBACCO USER [facility] Jan 06, 2007 08:51 AM LIFETIME NON-TOBACCO USER [facility] Pathology Reports: +/- 30 days of the encounter Pathology Reports For cases when an order for pathology services may have been completed prior to the date of the Encounter, the report list includes the Pathology Reports that were completed up to 30 days before dateof the Encounter. For cases when an order for pathology services may have been completed after the date of the Encounter, the report list also includes the Pathology Reports that were completed up to30 days after date of the Encounter. The data comes from all [facility] facilities. Date/Time Pathology Report Provider Source Oct 23, 2023 10:27 AM LR CYTOPATHOLOGY REPORT: LOCAL TITLE: LR CYTOPATHOLOGY REPORT STANDARD TITLE: PATHOLOGY REPORT DATE OF NOTE: OCT 23, 2023@10:27:01 ENTRY DATE: OCT 23, 2023@10:27:01 AUTHOR: HEIDI ZIMMERMAN EXP COSIGNER: URGENCY: STATUS: COMPLETED $APHDR Reporting Lab: [facility] [CLIA# [id number]] [place] [address] - - - - - - - - - - - - - - - - - - - - - - - - - - - - - - - - - - - - - - - - MEDICAL RECORD CYTOPATHOLOGY - - - - - - - - - - - - - - - - - - - - - - - - - - - - - - - - - - - - - - - - PATHOLOGY REPORT Accession No. [id number] - - - - - - - - - - - - - - - - - - - - - - - - - - - - - - - - - - - - - - - - $TEXT Submitted by: SHERIF JOLLY Date obtained: Oct 22, 2023 14:55 - - - - - - - - - - - - - - - - - - - - - - - - - - - - - - - - - - - - - - - - Specimen (Received Oct 22, 2023 14:56): REVIEW OUTSIDE CASE-CYTOLOGY - - - - - - - - - - - - - - - - - - - - - - - - - - - - - - - - - - - - - - - - BRIEF CLINICAL HISTORY: Consultation-Review of outside slides - - - - - - - - - - - - - - - - - - - - - - - - - - - - - - - - - - - - - - - - PREOPERATIVE DIAGNOSIS: - - - - - - - - - - - - - - - - - - - - - - - - - - - - - - - - - - - - - - - - OPERATIVE FINDINGS: - - - - - - - - - - - - - - - - - - - - - - - - - - - - - - - - - - - - - - - - POSTOPERATIVE DIAGNOSIS: Surgeon/physician: SHERIF RAMIREZ =-=-=-=-=-=-=-=-=-=-=-=-=-=-= -=-=-=-=-=-=-=-=-=-=-=-=-=-=- =-=-=-=-=-=-=-=-=-=-= - - - - - - - - - - - - - - - - - - - - - - - - - - - - - - - - - - - - - - - - PATHOLOGY REPORT Accession No. [id number] - - - - - - - - - - - - - - - - - - - - - - - - - - - - - - - - - - - - - - - - Screened by: [facility] Description: Received a total of 1 stained slide and 9 unstained slides labeled with the accession number of [id number], Elle Coronel (date of collection 09/15/2023), with the report signed out by Dr. Crissy Bowie M.D. After review, slides are returned to: [facility] Division of Anatomic Pathology [address] [place], [address] Microscopic: Microscopic examination performed. BB Diagnosis: Review of outside case (Accession number: [id number]). 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 Ki-67 is reported as 5%. /mustapha/ HEIDI ZIMMERMAN MD STAFF PATHOLOGIST Signed Oct 23, 2023@10:27 Performing Laboratory: Cytology Report Performed By: [facility] [CLIA# [id number]] [place] [address] $FTR - - - - - - - - - - - - - - - - - - - - - - - - - - - - - - - - - - - - - - - - (End of report) HEIDI ZIMMERMAN MD b Date Oct 23, 2023 - - - - - - - - - - - - - - - - - - - - - - - - - - - - - - - - - - - - - - - - ELLE CORONEL STANDARD FORM 515 ID:[id number] SEX:M :1945 AGE: 78 LOC:[facility] PCP: Annie Singh /mustapha/ HEIDI ZIMMERMAN MD STAFF PATHOLOGIST Signed: 10/23/2023 10:27 HEIDI ZIMMERMAN [facility] Encounter Notes: All associated encounter notes This section contains the clinical notes associated to the Encounter. 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 He has been on long acting octreotide since 08/2019 with overall stable disease. He also has prostate cancer, s/p HIFU treatment in [place] and is being followed by Urology at [facility]. Here today with his for follow-up. Interval Hx: Patient states that overall he is feeling well overall. Has ~1 loose stool per day with no significant diarrhea. No significant flushing. No abd pain. Good appetite. Wt stable. Since last visit he was seen at [place] by DR. Rao and has had liver MRI and Dotatate done. Denies n/v, brbpr, melena. No f/c/ns, SOB, cough, chest pain, urinary sxs, neuro changes, bone pain or rash. 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 - He also has prostate cancer [place] 3+4, pt had HIFU in [place] 10/09/07 and 2 treatments of lupron. - He was noted to have enlarging mesenteric LNs- initially thought to be metastatic from prostate ca but had biopsy completed 10/27/08 at [place] which was consistent with well-differentiated neuroendocrine carcinoma (carcinoid). - Also a saturation biopsy of the prostate done at [facility] 11/20/08 with no evidence for prostate cancer - Repeat scans from 03/2011 were stable. Chromagranin-A has also been stable. - Last seen by Urology here in 12/2008-> they advised to follow PSA with pcp q 6 months, refer back to Uro if PSA rises >0.75 ng/mg per year or a large rise in 1 year. - 10/2011 Refer back to Urology and being followed there - 01/2014 Underwent salvage prostatectomy at [place]. - 07/17/14-02/2019 scans stable - 08/26/19 CT show: Impression: 1. Enlarging mesenteric mass measuring up to 4.1 cm, previously 3.[address] scan from 08/06/2018 consistent with patient's known carcinoid tumor. This didn't show FDG avidity on interval PET CT scan from 08/12/2018. 2. Innumerable new small sclerotic foci of the axial skeleton concerning for metastatic disease. 09/02/19 Started on long acting Octreotide 09/2019 Dotatate scan done at [facility] 1. Innumerable mets throughout bones of the body, with liver mets, retroperitoneal, periaortic, mesenteric, and hilar node mets. 2. Small hypermetabolic tumor mid body of pancreas cannot exclude this as primary site. - 12/12/19 SEROTONIN 1424 ng/mL ; chromogranin A 80 - 04/03/20 SEROTONIN 1119H ng/mL - 06/04/20 SEROTONIN 1179 ng/mL - 12/25/20 Serotonin 1492 - 01/22/21 Serotonin 802 - 01/28/21 Dotatate PET scan show: stable disease - 02/21/21 Lumbar MRI show: stable - 02/07/22 CT and MRI done at [facility] show: No significant interval change of the metastatic disease in the abdomen. 08/04/22 CT and MRI done at [facility] show: CT show: IMPRESSION: 1. Subcentimeter nodules in the left upper lobe and in the lingula have slightly increased in size and conspicuity compared to prior exams. In the setting of metastatic disease, these nodules are indeterminate. 2. Otherwise stable exam with no change in the posterior mediastinal and left internal mammary lymphadenopathy. 3. Stable sclerotic bone metastases. Abd MRI show: Stable metastatic lesions involving the liver, lymph nodes, and bones. No new disease. - 03/02/23 CT and MRI done at [facility] IMPRESSION: 1. Multiple bilateral lung nodules are stable. There are no new or enlarging lung nodules. 2. Paraesophageal lymph node is larger. 3. The numerous sclerotic bone lesions are more conspicuous and denser than before. 4. New L1 vertebral body compression deformity. Abd MRI done 03/02/23 show: IMPRESSION: Mildly increased size of neuroendocrine metastases in the liver, lymph nodes and bones. - 09/09/23 Dotatate PET scan show: IMPRESSION: 1. Interval progression since the prior [...] No DOTATATE non-avid metastases. Krenning score: 4 - 09/09/23 PET MR ABDOMEN FOCUSED WITHOUT AND WITH IV CONTRAST IMPRESSION: Slight interval enlargement of hepatic, peritoneal, and osseous metastases and stable lymphadenopathy. Meds reviewed/Allergies reviewed: DIAL SOAP (Mar 25, 2007) NAPROXEN (February 05, 2011) Nursing note and vitals reviewed: Height: 70.6 in [179.3 cm] (05/05/2023 16:08) Weight: 215.7 lb [97.84 kg] (10/06/2023 10:54) BSA: 2.21 BMI: 30.5 BP: 139/78 (10/06/2023 10:54) Pulse: 59 (10/06/2023 10:54) Resp: 16 (10/06/2023 10:54) Temp: 98.3 F [36.8 C] (10/06/2023 10:54) Pain: 0 (10/06/2023 10:54) PHYSICAL EXAMINATION: General: NAD LABORATORY/IMAGING STUDIES: The results of the laboratory and imaging studies obtained by Hem/Onc for this office visit were reviewed and discussed with the patient at today's clinic visit. HGB 14.2 (10/06/23) HCT 41.9 (10/06/23) MCV 97.9 (10/06/23) WBC 5.36 (10/06/23) ABS NEUT 3.09 (10/06/23) ABS LYMPH 1.43 (10/06/23) PLT 219 (10/06/23) CREATININE 0.9 (10/06/23) UREA NITROGEN 17 (10/06/23) GLUCOSE 118 H (10/06/23) CALCIUM 8.9 (10/06/23) POTASSIUM 4.0 (10/06/23) SODIUM 140 (10/06/23) CHLORIDE 107 (10/06/23) MAGNESIUM 2.0 (10/06/23) PROTEIN,TOTAL 6.4 (10/06/23) ALBUMIN 3.8 (10/06/23) ALK PHOSPHATASE 78 (10/06/23) SGOT 19 (10/06/23) SGPT 20 (10/06/23) BILIRUBIN, TOTAL 1.0 (10/06/23) 09/15/23: US guided Liver fine needle aspiration (smears/core biopsy): Positive for neoplasm. 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 Immunostains performed on block A1 show the neoplastic cells are positive for AE1/AE3, synaptophysin, and chromogranin, while negative for NKX3.1 and PSA. SPECIAL PROCEDURE REPORT Biomarker(s) for: Neuroendocrine tumor or carcinoma Result(s): Ki-67 labeling index: Labeling Index: 5 % (3% to 20%) IMAGING: Dotatate PET and MR abd done at [facility] 09/09/23 FINDINGS: Due to the difference in technique, [...] pulmonary metastases. Reference SUV max: - Spleen: 21.3 - Liver: 9.8 Incidental significant findings on whole-body MRI: MRI findings in focused abdomen portion are reported separately. Prostatectomy. Compression deformity of L1 vertebral body. IMPRESSION: 1. Interval [...] No DOTATATE non-avid metastases. Krenning score: 4 PET MR ABDOMEN FOCUSED WITHOUT AND WITH [...] cyst. Nondilated loops of bowel. Colonic diverticulosis. IMPRESSION: Slight interval enlargement of hepatic, peritoneal, and osseous metastases and stable lymphadenopathy. Performance Status: ECOG - 1 ASSESSMENT/PLAN: (1) 78 y/o male with Carcinoid involving ileum and mesenteric LNs initially diagnosed in 2008. He was on surveillance with stable/normal Chromagranin A. However, in 08/2019 he was noted to have enlargement of the mesenteric mass but also new galo lesions suspicious for bone mets and normal chromogranin level. He was started on Octreotide monthly and dotatate scan obtained in 09/2019 showed Innumerable mets throughout bones of the body, with liver mets, retroperitoneal, periaortic, mesenteric, and hilar node mets. He has been tolerating octreotide well overall. CT and MRI done at [facility] 02/2023 shows a slight increase in his hepatic, lymph node, and bone disease, but continues to have a fairly low burden of disease and as he was clinically doing well, the decision was to continue with octreotide and repeat scans in 6 months and consideration for 2nd line therapy with PRRT vs everolimus. He had PET MR and DOTATATE done 09/09/23 which show ongoing disease progression in osseous, hepatic and marychuy metastases. Patient underwent repeat liver biopsy to assess Ki-67 status prior to enrollement in PRRT vs everolimus trial but unfortunately his repeat biopsy did not meet Ki-[address] Rao suggest PRRT given his Krenning score(4), but patient wanted to think about this and continue with octreotide for now. His insurance will not cover this at [facility]. After discussion today, Mr. Coronel is interested in PRRT and would like to do this thru [place]. I suggest that Mr. Coronel meet with Dr. Ramirez to discuss next steps in care and he agrees with this plan. - Maintain on monthly octreotide LAR at 30mg monthly (given today) - F/U in [address] Ramirez in Dr. Ramirez's fellow clinic to discuss next steps in care - Repeat TTE every couple of years (next due 2023) thru [facility]. 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 Has had periodic but brief f/u with [facility] and thru PCP. His PSA has been stable at the [facility] and here. PSA 05/2023 was 0.01. 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 Also L1 fracture due to fall - Managed by outside PCP (5) Fatigue: maybe due to poor sleep hygiene. TSH is normal. HgB stable - Defer management to PCP (6) Osteopenia: Recent DXA show osteopenia - Maintain on calcium + Vitamin D - encourage wt bearing exercise Patient Education of Treatment Plan: Patient and family member indicates readiness to learn, verbalizes understanding, agreement and satisfaction with the treatment plan. All questions answered to their apparent satisfaction. 40 mins spent with patient reviewing history, lab results, examination, reviewing treatment plan and EHR documentation Alerting Dr. Ramirez. Thank you /mustapha/ ELIZABETH SHRESTHA PHYSICIAN CHILD CARE DIRECTOR Signed: 10/06/2023 12:34 Receipt Acknowledged By: 10/06/2023 15:14 /mustapha/ SHERIF RAMIREZ PHYSICIAN LILI GARCIA [facility] Oct 06, 2023 10:54 AM INTERNAL MEDICINE OUTPATIENT NOTE: LOCAL TITLE: MEDICINE CLINIC NURSING NOTE STANDARD TITLE: INTERNAL MEDICINE OUTPATIENT NOTE DATE OF NOTE: OCT 06, 2023@10:54 ENTRY DATE: OCT 06, 2023@10:55:02 AUTHOR: MAHAMED MCCORMACK EXP COSIGNER: URGENCY: STATUS: COMPLETED TYPE OF VISIT: Appointment Check In Type of appointment: In-person appointment REASON FOR VISIT: scheduled appointment ALLERGIES: DIAL SOAP (Mar 25, 2007) NAPROXEN (February 05, 2011) VITAL SIGNS: Blood Pressure: 139/78 (10/06/2023 10:54) Pulse: 59 (10/06/2023 10:54) Respiration: 16 (10/06/2023 10:54) Temperature: 98.3 F [36.8 C] (10/06/2023 10:54) Weight: 215.7 lb [97.84 kg] (10/06/2023 10:54) Height: 70.6 in [179.3 cm] (05/05/2023 16:08) BMI: 30.5 O2 Sat: 96% (10/06/2023 10:54) Pain: 0 (10/06/2023 10:54) PAIN SCREEN: Patient is not having significant pain that they wish to discuss with their provider today. MEDICATION Active Outpatient Medications (including Supplies): PSYLLIUM ORAL PWD TAKE 1 TABLESPOONFUL BY MOUTH TWICE A ACTIVE DAY FOR REGULAR BOWEL MOVEMENTS SIMETHICONE 80MG CHEW TAB CHEW ONE TABLET BY MOUTH THREE ACTIVE TIMES A DAY NEEDED FOR GAS SOTALOL HCL 80MG TAB TAKE ONE TABLET BY MOUTH TWO TIMES A ACTIVE DAY WARFARIN NA (CHAN STATE) 5MG TAB TAKE THIS MEDICATION BY ACTIVE MOUTH EVERY DAY TO TREAT AND/OR PREVENT BLOOD CLOTS DIRECTED BY THE ANTICOAGULATION CLINIC (PHONE: [phone]) Non-VA VITAMIN E CAP,ORAL MOUTH EVERY MORNING ACTIVE Over the Counter/Herbal Medications: The patient states that they take some outside medications and/or herbals. /mustapha/ MONTRELL MCCORMACK LPN Signed: 10/06/2023 10:55 ZAHRA MCCORMACK [facility]
--- OUTSIDE RECORDS SUMMARY | 2023-10-25 20:15 | XMS_ITS | Encounter Summary ---
Author Name Department of Vetera Affairs Organization Department of Vetera ns Affairs Address [address] [place] [address] Support Name Relationship Address Phone Arti CORONEL Next of Kin [address] [address] ADITYA MALIN Emergency Contact [address] [place] [address] Insurance Providers: All historical and current Section [...] PART A May 15, 2009 PART A [id number] [phone] HOMER ELLE PATIENT MEDICARE (WNR) MEDICARE (M) PART B May 15, 2009 PART B [id number] ELLE CORONEL PATIENT Selected Encounter This section includes the information on record at [place] for the Encounter. Date/Time Encounter Type Encounter Description Reason Provider Source Oct 06, 2023 11:41 AM QNHP OL DIG ASSMT&MGMT 11-20 CLINICAL PHARMACY ICD-10-CM Z79.01 [employer] (current) use of anticoagulants ANA SANDERS Kacie Encounter Template Text not used by [place] Assessments - Encounter Diagnoses This section includes the primary and secondary diagnoses documented for the Encounter. Date/Time Primary/Secondary Diagnosis Diagnosis Name Provider Source Oct 06, 2023 11:45 AM PRIMARY [facility] (current) use of anticoagulants ANA SANDERS [facility] Oct 06, 2023 11:45 AM SECONDARY Unspecified atrial fibrillation ANA SANDERS HONORIO Loza [facility] Plan of Treatment: Future Appointments (+ 6 months) and Future Tests (+/- 45 days) The Plan of Treatment section includes future care activities for the patient from all [place] [facility] This section includes future appointments and future orders which are active, pending or scheduled. Future Appointments This section includes appointments that were scheduled to occur 6 months from the date of the Encounter, up to a maximum of 20 appointments. The data comes from all [facility]. Appointment Date/Time Appointment Type Appointme nt Facility Name Oct 14, 2023 09:00 AM AMBULATORY - MEDICINE [facility] Nov 05, 2023 09:00 AM AMBULATORY - MEDICINE [facility] Dec 09, 2023 08:00 AM AMBULATORY - NONE [facility] Dec 09, 2023 09:00 AM AMBULATORY MEDICINE [facility] Active, Pending, and Scheduled Orders This section includes a listing of several types of active, pending, and scheduled orders, including clinic medications orders, diagnostic test orders, procedure orders and consult orders; where the start date of the order is 45 days before the date of the Encounter or 45 days after the date of theEncounter. The data comes from all [facility]. Test Date/Time Test Type Test Details Facility Name Oct 14, 2023 09:10 AM Consult Order COMMUNITY CARE-MEDICAL ONCOLOGY Cons Investment Officer's Choice [facility] Lab Results: +/- 30 [...] Range Comment Oct 06, 2023 09:24 AM [facility] PT/INR(ANTICOAG) Specimen Type: PLASMA No comment entered. Ordering Provider: MIRA GARCIA Report Released Date/Time: Aug 27, 2023 09:50 AM Reporting Lab: [facility] [id number] Performing Lab: [facility] [address] .INR 2.5 H 0.8-1.1 .PT 29.3 H 9.4-12.5 Oct 06, 2023 09:23 AM [facility] COMPREHENSIVE METABOLIC PANEL+MG Specimen Type: PLASMA Comment: Automated Differential Performed Ordering Provider: PRETTY GARCIA ND Report Released Date/Time: Aug 11, 2023 09:38 AM Reporting Lab: [facility] [id number] Performing Lab: [facility] [address] CREATININE 0.9 0.7-1.2 UREA NITROGEN 17 8-26 GLUCOSE 118 H 70-100 SODIUM 140 136-145 POTASSIUM 4.0 3.5-5.1 CHLORIDE 107 98-107 CO2 26 22-29 CALCIUM 8.9 8.4-10.2 PROTEIN,TOTAL 6.4 6.0-8.3 ALBUMIN 3.8 3.5-5.2 BILIRUBIN, TOTAL 1.0 0.2-1.2 MAGNESIUM 2.0 1.6-2.6 ANION GAP 7 5-15 ALKALINE PHOSPHATASE 78 40-150 ALT/SGPT 20 <55 AST/SGOT 19 <34 .CREAT EGFR(CKD-EPI) 87 >60 Oct 06, 2023 09:23 AM [facility] CBC & DIFF Specimen Type: BLOOD Comment: Automated Differential Performed Ordering Provider: PRETTY GARCIA ND Report Released Date/Time: Aug 11, 2023 09:38 AM Reporting Lab: [facility] [address] Performing Lab: [facility] [id number] WBC 5.36 4.0-11.0 RBC 4.28 L 4.6-6.2 [...] 96 % 0 215.7 lb [address] [place] [address] Social History: Smoking Status (Most current) and Tobacco Use (All prior to encounter date) This section includes the most current, and the historical, smoking and tobacco- related health factors from the [place] facility where the Encounter took place. Current Smoking Status This section includes the most current smoking, or tobacco-related health factor, from the [place] facility where the Encounter took place. Date/Time Current Smoking Status Comment Thiago ity May 05, 2023 04:00 PM [place]-TOBACCO NEVER USED [facility] Tobacco Use History This section includes a history of the smoking, or tobacco-related health factors, that were collected on or before the date of the Encounter. The data comes from the [place] facility where the Encounter took place. Date/Time Smoking Status/Tobacco Use Comment F acility Apr 04, 2022 08:30 AM VA-TOBACCO NEVER USED [facility] May 15, 2021 10:00 AM VA-TOBACCO NEVER USED [facility] Oct 05, 2019 10:05 AM VA-TOBACCO NEVER USED [facility] Oct 20, 2018 12:28 PM INPT NO TOBACCO USE IN LAST 30 D AYS [facility] Sep 15, 2018 01:21 PM VA-TOBACCO NEVER USED [facility] Aug 11, 2017 08:54 AM LIFETIME NON-TOBACCO USER [facility] Jul 08, 2016 08:07 AM LIFETIME NON-TOBACCO USER [facility] May 09, 2015 02:31 PM LIFETIME NON-TOBACCO USER [facility] Apr 14, 2014 08:41 AM LIFETIME NON-TOBACCO USER [facility] Jan 06, 2007 08:51 AM LIFETIME NON-TOBACCO USER [facility] Pathology Reports: +/- 30 days of the [...] the Encounter. The data comes from all [place] treatment facilities. Date/Time Pathology Report Provider Source Oct 23, 2023 10:27 AM LR CYTOPATHOLOGY REPORT: LOCAL TITLE: LR CYTOPATHOLOGY REPORT STANDARD TITLE: PATHOLOGY REPORT DATE OF NOTE: OCT 23, 2023@10:27:01 ENTRY DATE: OCT 23, 2023@10:27:01 AUTHOR: HEIDI ZIMMERMAN EXP COSIGNER: URGENCY: STATUS: COMPLETED $APHDR Reporting Lab: [facility] [CLIA# [id number]] [place] [address] - - - - - - - [...] - - - - Screened by: AJITH Blackwood [facility] Description: Received a total of 1 stained slide and 9 unstained slides labeled with the accession number of [id number], Elle Coronel (date of collection 09/15/2023), with the report signed out by Dr. Crissy Bowie M.D. After review, slides are returned to: [facility] Division of Anatomic Pathology [address] [place] [address], [address] Microscopic: Microscopic examination performed. BB Diagnosis: Review of outside case (Accession number: [id number]). 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 Ki-67 is reported as 5%. /es/ HEIDI ZIMMERMAN MD STAFF PATHOLOGIST Signed Oct 23, 2023@10:27 Performing Laboratory: Cytology Report Performed By: [facility] [CLIA# [id number]] [place] [address] $FTR - - - - - - - - - - - - - - - - - - - - - - - - - - - - - - - - - - - - - - - - (End of report) HEIDI ZIMMERMAN MD [facility] Date Oct 23, 2023 - - - - - - - - - - - - - - - - - - - - - - - - - - - - - - - - - - - - - - - - ELLE CORONEL MAHESH STANDARD FORM 515 ID:[id number] SEX:M :1945 AGE: 78 LOC:HEMONC PCP: Annie Singh /mustapha/ HEIDI ZIMMERMAN MD STAFF PATHOLOGIST Signed: 10/23/2023 10:27 HEIDI ZIMMERMAN [facility] Encounter Notes: All associated encounter notes This section contains the clinical notes associated to the Encounter. 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 No apparent complications. Would recommend RvB discussion with patient for next prx. - 09/2023: Recommended 5-day warfarin hold *without* LMWH bridging per RvB discussion and SDM with pt. Difficult to return INR to range Date started: 10/2019 Anticipated duration: Lifelong - HAS-BLED = 2 (age, CVA) = moderate risk - CHADS2-VASC = 5 (age +2, CVA +2, HTN) = moderate risk - Risk of recurrent VTE (Chest 2016) = moderate risk - Provoked after surgery: 3% in 5 years - Unprovoked: 30% in 5 years (continue unless high bleed risk) DOAC Assessment (10/21/2019): Not a candidate due to failure with apixaban. Notes: - OK to call on cell phone if not available at home phone. Care Coordination: - Local Lab: [facility] *Lab Direct P: [phone]; &[phone] *PSYCHIATRIC approval [id number] valid 2023-06-23 through 2023-12-20 *SO faxed to both locations 07/22/22 SUBJECTIVE/OBJECTIVE: Completed by chart review. Patient was not interviewed. Warfarin dose: 7.5mg TuThSa & 5mg all other days (42.5mg/wk); AM Collection DT INR mg in last 7 days 10/06/2023 09:24 2.5 42.5 letter 09/23/2023 local 1.9 42.5 held 09/09-09/15 for proc 08/26/2023 local 2.5 42.5 letter 07/28/2023 local 2.8 42.5 letter 07/09/2023 local 2.6 42.5 letter 06/23/2023 local 2.9 37.5 hold x1 06/16/2023 08:43 BLOOD 4.3 45 06/02/2023 local 2.4 45 05/19/2022 local 1.66 42.5 05/11/2023 local 1.6 27.5-32.5? miss x2 05/05/2023 local 1.7 42.5 04/21/2023 08:05 2.6 42.5 letter 04/08/2023 local 1.93 42.5 03/19/2023 local 2.2 42.5 letter Other Recent Labs Collection DT Spec WBC HGB HCT PLT MCV NEUT LYMPHS 09/23/2023 O[facility] 5.21 14.6 44.2 214 08/11/2023 08:31 BLOOD 5.08 14.3 41.9 198 98.4 57.3 22.8 05/19/2023 08:18 BLOOD 4.17 14.2 41.2 223 98.1 51.6 25.2 04/21/2023 08:05 BLOOD 4.33 14.2 42.1 220 98.6 55.9 25.2 03/24/2023 12:29 BLOOD 4.43 14.3 42.3 191 98.6 52.8 26.4 02/24/2023 08:14 BLOOD 4.26 14.1 41.7 199 99.0 45.4 31.2 01/27/2023 08:50 BLOOD 5.27 14.2 42.3 205 99.5 60.7 21.6 12/30/2022 09:25 BLOOD 4.88 14.3 41.5 221 97.6 56.1 23.6 12/02/2022 08:40 BLOOD 4.87 14.7 43.9 229 98.9 53.4 26.5 11/04/2022 09:48 BLOOD 4.62 14.5 44.5 201 100.7 H 55.0 24.2 10/07/2022 09:52 BLOOD 5.54 14.5 43.3 209 98.9 63.4 18.4 *CBCs monitored by hem/onc ASSESSMENT/PLAN: Therapeutic INR. Continue current warfarin dose. F/U INR in 4 weeks - Warfarin dose: CONTINUE: 7.5mg TuThSa & 5mg all other days (42.5mg/wk) - Next INR: 11/03/23 @ local lab PSYCHIATRIC lab valid through 12/20/23 - Rx assessed - LETTER SENT Time spent: 15 minutes /mustapha/ NORMA SANDERS Pharmacist Signed: 10/06/2023 11:45 10/08/2023 ADDENDUM STATUS: COMPLETED Alerted pt also had INR completed on 10/07/23 at local lab Collection DT INR mg in last 7 days 10/07/2023 local 2.7 unscheduled 10/06/2023 09:24 2.5 42.5 letter 09/23/2023 local 1.9 42.5 held 09/09-09/15 for proc 08/26/2023 local 2.5 42.5 letter 07/28/2023 local 2.8 42.5 letter 07/09/2023 local 2.6 42.5 letter 06/23/2023 [facility] 2.9 37.5 hold x1 06/16/2023 08:43 BLOOD 4.3 45 06/02/2023 local 2.4 45 05/19/2022 [facility] 1.66 42.5 05/11/2023 local 1.6 27.5-32.5? miss x2 05/05/2023 local 1.7 42.5 04/21/2023 08:05 2.6 42.5 letter 04/08/2023 [facility] 1.93 42.5 03/19/2023 [facility] 2.2 42.5 letter Therapeutic INR, unscheduled. No change to above plan - Warfarin dose: CONTINUE: 7.5mg TuThSa & 5mg all other days (42.5mg/wk) - Next INR: 11/03/23 @ local lab PSYCHIATRIC lab valid through 12/20/23 /mustapha/ JEANNETTE GARCIA, CLARYD CLINICAL CONSTRUCTION PROJECT MANAGER Signed: 10/08/2023 10:29 EPHRAIM SANDERS [facility]
--- OUTSIDE RECORDS SUMMARY | 2023-10-25 20:15 | XMS_ITS | Encounter Summary ---
Author Name Department of Vetera ns Affairs Organization Department of Vetera ns Affairs Address [address] [place] [address] Support Name Relationship Address Phone Arti CORONEL Next of Kin [address] [address] ADITYA MALIN Emergency Contact [address] [place], [place] [id number] Insurance Providers: All historical and current Section [...] PART A May 15, 2009 PART A [id number] [phone] ELLE CORONEL PATIENT MEDICARE (WNR) MEDICARE (M) PART B May 15, 2009 PART B [id number] [phone] ELLE CORONEL PATIENT Selected Encounter This section includes the information on record at [place] for the Encounter. 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 Date/Time Primary/Secondary Diagnosis Diagnosis Name Provider Source Oct 06, 2023 10:54 AM PRIMARY Carcinoma in situ of prostate SA NANO MCCORMACK [facility] Plan of Treatment: Future Appointments (+ 6 months) and Future Tests (+/- 45 days) The Plan of Treatment section includes future care activities for the patient from all [place] [facility]. This section includes future appointments and future orders which are active, pending or scheduled. Future Appointments This section includes appointments that were scheduled to occur 6 months from the date of the Encounter, up to a maximum of 20 appointments. The data comes from all [facility]. Appointment Date/Time Appointment Type Appointme nt Facility Name Oct 14, 2023 09:00 AM AMBULATORY - MEDICINE [facility] Nov 05, 2023 09:00 AM AMBULATORY - MEDICINE [facility] Dec 09, 2023 08:00 AM AMBULATORY - NONE [facility] Dec 09, 2023 09:00 AM AMBULATORY MEDICINE [facility] Active, Pending, and Scheduled Orders This section includes a listing of several types of active, pending, and scheduled orders, including clinic medications orders, diagnostic test orders, procedure orders and consult orders; where the start date of the order is 45 days before the date of the Encounter or 45 days after the date of theEncounter. The data comes from all [facility]. Test Date/Time Test Type Test Details Facility Name Oct 14, 2023 09:10 AM Consult Order COMMUNITY CARE-MEDICAL ONCOLOGY Cons Optometric Coordinator's Choice [facility] Lab Results: +/- 30 days of the encounter This section includes the Chemistry and Hematology Lab Results on record with [place] for the patient. Radiology Reports and Pathology Reports are provided separately, in subsequent sections. Lab Results This section contains the Chemistry/Hematology Results that were resulted 30 days before or 30 daysafter the date of the Encounter. Date/Time Source Result Type Result - Unit Interpretation Reference Range Comment Oct 06, 2023 09:24 AM [facility] PT/INR(ANTICOAG) Specimen Type: PLASMA No comment entered. Ordering Provider: MIRA GARCIA Report Released Date/Time: Aug 27, 2023 09:50 AM Reporting Lab: [facility] [id number] Performing Lab: [facility] [address] .INR 2.5 H 0.8-1.1 .PT 29.3 H 9.4-12.5 Oct 06, 2023 09:23 AM [facility] COMPREHENSIVE METABOLIC PANEL+MG Specimen Type: PLASMA Comment: Automated Differential Performed Ordering Provider: PRETTY GARCIA ND Report Released Date/Time: Aug 11, 2023 09:38 AM Reporting Lab: [facility] [id number] Performing Lab: [facility] [address] CREATININE 0.9 0.7-1.2 UREA NITROGEN 17 8-26 GLUCOSE 118 H 70-100 SODIUM 140 136-145 POTASSIUM 4.0 3.5-5.1 CHLORIDE 107 98-107 CO2 26 22-29 CALCIUM 8.9 8.4-10.2 PROTEIN,TOTAL 6.4 6.0-8.3 ALBUMIN 3.8 3.5-5.2 BILIRUBIN, TOTAL 1.0 0.2-1.2 MAGNESIUM 2.0 1.6-2.6 ANION GAP 7 5-15 ALKALINE PHOSPHATASE 78 40-150 ALT/SGPT 20 <55 AST/SGOT 19 <34 .CREAT EGFR(CKD-EPI) 87 >60 Oct 06, 2023 09:23 AM [facility] CBC & DIFF Specimen Type: BLOOD Comment: Automated Differential Performed Ordering Provider: PRETTY GARCIA ND Report Released Date/Time: Aug 11, 2023 09:38 AM Reporting Lab: [facility] [id number] Performing Lab: [facility] [address] WBC 5.36 4.0-11.0 RBC 4.28 L 4.6-6.2 [...] % 0 215.7 lb 30 [place] [facility] Social History: Smoking Status (Most current) and Tobacco Use (All prior to encounter date) This section includes the most current, and the historical, smoking and tobacco- related health factors from the [place] facility where the Encounter took place. Current Smoking Status This section includes the most current smoking, or tobacco-related health factor, from the [facility] where the Encounter took place. Date/Time Current Smoking Status Comment Facil ity May 05, 2023 04:00 PM [place]-TOBACCO NEVER USED [facility] Tobacco Use History This section includes a history of the smoking, or tobacco-related health factors, that were collected on or before the date of the Encounter. The data comes from the [place] facility where the Encounter took place. Date/Time Smoking Status/Tobacco Use Comment F acility Apr 04, 2022 08:30 AM VA-TOBACCO NEVER USED [facility] May 15, 2021 10:00 AM VA-TOBACCO NEVER USED [facility] Oct 05, 2019 10:05 AM [place]-TOBACCO NEVER USED [facility] Oct 20, 2018 12:28 PM INPT NO TOBACCO USE IN LAST 30 D AYS [facility] Sep 15, 2018 01:21 PM VA-TOBACCO NEVER USED [facility] Aug 11, 2017 08:54 AM LIFETIME NON-TOBACCO USER [facility] Jul 08, 2016 08:07 AM LIFETIME NON-TOBACCO USER [facility] May 09, 2015 02:31 PM LIFETIME NON-TOBACCO USER [facility] Apr 14, 2014 08:41 AM LIFETIME NON-TOBACCO USER [facility] Jan 06, 2007 08:51 AM LIFETIME NON-TOBACCO USER [facility] Pathology Reports: +/- 30 days of [...] the Encounter. The data comes from all [place] treatment facilities. Date/Time Pathology Report Provider Source Oct 23, 2023 10:27 AM LR CYTOPATHOLOGY REPORT: LOCAL TITLE: LR CYTOPATHOLOGY REPORT STANDARD TITLE: PATHOLOGY REPORT DATE OF NOTE: OCT 23, 2023@10:27:01 ENTRY DATE: OCT 23, 2023@10:27:01 AUTHOR: HEIDI ZIMMERMAN EXP COSIGNER: URGENCY: STATUS: COMPLETED $APHDR Reporting Lab: [facility] [CLIA# [id number]] [place] [address] - - - - - - - [...] - - - - Screened [facility]: [facility] Description: Received a total of 1 stained slide and 9 unstained slides labeled with the accession number of [id number], Elle Coronel (date of collection 09/15/2023), with the report signed out by Dr. Crissy Bowie M.D. After review, slides are returned to: [facility] Division of Anatomic Pathology [address] [place] [address], [address] Microscopic: Microscopic examination performed. BB Diagnosis: Review [...] 2023@10:27 Performing Laboratory: Cytology Report Performed By: [facility] [CLIA# [id number]] [place] [address] $FTR - - - - - - - - - - - - - - - - - - - - - - - - - - - - - - - - - - - - - - - - (End of report) HEIDI ZIMMERMAN MD [facility] Date Oct 23, 2023 - - - - - - - - - - - - - - - - - - - - - - - - - - - - - - - - - - - - - - - - ELLE CORONEL STANDARD FORM 515 ID:[id number] SEX:M :1945 AGE: 78 LOC:HEMONC PCP: Annie Singh /mustapha/ HEIDI ZIMMERMAN MD STAFF PATHOLOGIST Signed: 10/23/2023 10:27 HEIDI ZIMMERMAN [facility] Encounter Notes: All associated encounter notes This section contains the clinical notes associated to the Encounter. Date/Time Encounter Note(s) Provider Source Oct 06, 2023 10:51 AM INTERNAL MEDICINE OUTPATIENT NOTE: LOCAL TITLE: MEDICINE CLINIC NURSING NOTE STANDARD TITLE: INTERNAL MEDICINE OUTPATIENT NOTE DATE OF NOTE: OCT 06, 2023@10:51 ENTRY DATE: OCT 06, 2023@10:51:18 AUTHOR: MAHAMED MCCORMACK COSIGNER: URGENCY: STATUS: COMPLETED TYPE OF VISIT: Nurse Clinic REASON FOR VISIT: Octreotide injection ALLERGIES: FACILITY ALLERGY/ADR -------- No Remote Allergy/ADR Data available for this patient [facility] DIAL SOAP [facility] NAPROXEN Medications administered/read in clinic Participant(s) verbalizes understanding reguarding medication administered today. Octreotide 30MG given IM Injection site: Right Gluteal. Director Translational: Content Syndicate: [employer] Lot#:[id number] Expiration date: 11/2025 Participant(s) verbalizes understanding of medication administered including symptoms that require urgent follow up. Patient instructed to wait in clinic 15 minutes to observe for adverse reaction. If symptom free, no follow up necessary. Patient response to medication administered: tolerated injection as expected, no adverse reaction observed. Patient to return to clinic on or around Oct. /mustapha/ MONTRELL MCCORMACK LPN Signed: 10/06/2023 10:54 MONTRELL MCCORMACK [facility]
--- OUTSIDE RECORDS SUMMARY | 2023-10-25 20:15 | XMS_ITS | Encounter Summary ---
Author Name Department of Vetera Affairs Organization [facility] Veter[facility] ns Affairs Address [address] [place] [address] Support Name Relationship Address Phone HOMER Arti COLEMAN Next of Kin [address] [phone] ADITYA MALIN Emergency Contact [address] [place], [place] [address] Insurance Providers: All historical and current Section [...] PART A May 15, 2009 PART A [id number] [phone] HOMER ELLE PATIENT MEDICARE (WNR) MEDICARE (M) PART B May 15, 2009 PART B [id number] [phone] ELLE CORONEL PATIENT Selected Encounter This section includes the information on record at [place] for the Encounter. Date/Time Encounter Type Encounter Description Reason Pro vider Source Sep 22, 2023 12:00 AM Outpatient Encounter EVENT (HISTORICAL) IHE Encounter Template Text not used by [...] [place] treatment facilities. Appointment Date/Time Appointment Type Appointme nt Facility Name Oct 06, 2023 10:00 AM [facility] Oct 06, 2023 10:15 AM [facility] Oct 06, 2023 10:30 AM [facility] Oct 06, 2023 11:00 AM AMBULATORY - MEDICINE [facility] Oct 14, 2023 09:00 AM AMBULATORY - MEDICINE [facility] Nov 05, 2023 09:00 AM AMBULATORY - MEDICINE [facility] Dec 09, 2023 08:00 AM AMBULATORY - NONE [facility] Dec 09, 2023 09:00 AM AMBULATORY MEDICINE [facility] Active, Pending, and Scheduled Orders This section includes a listing of several types of active, pending, and scheduled orders, including clinic medications orders, diagnostic test orders, procedure orders and consult orders; where the start date of the order is 45 days before the date of the Encounter or 45 days after the date of theEncounter. The data comes from all [place] treatment [facility]. Test Date/Time Test Type Test Details Facility Name Oct 14, 2023 09:10 AM Consult Order COMMUNITY CARE-MEDICAL ONCOLOGY Cons Clinical Data Assistant's Choice [facility] Lab Results: +/- 30 days [...] Range Comment Oct 06, 2023 09:24 AM [facility] PT/INR(ANTICOAG) Specimen Type: PLASMA No comment entered. Ordering Provider: MIRA GARCIA Report Released Date/Time: Aug 27, 2023 09:50 AM Reporting Lab: [facility] [id number] Performing Lab: [facility] [id number] .INR 2.5 H 0.8-1.1 .PT 29.3 H 9.4-12.5 Oct 06, 2023 09:23 AM [facility] COMPREHENSIVE METABOLIC PANEL+MG Specimen Type: PLASMA Comment: Automated Differential Performed Ordering Provider: TARCHAND,GOBI ND Report Released Date/Time: Aug 11, 2023 09:38 AM Reporting Lab: [facility] [id number] Performing Lab: [facility] [id number] CREATININE 0.9 0.7-1.2 UREA NITROGEN 17 8-26 GLUCOSE 118 H 70-100 SODIUM 140 136-145 POTASSIUM 4.0 3.5-5.1 CHLORIDE 107 98-107 CO2 26 22-29 CALCIUM 8.9 8.4-10.2 PROTEIN,TOTAL 6.4 6.0-8.3 ALBUMIN 3.8 3.5-5.2 BILIRUBIN, TOTAL 1.0 0.2-1.2 MAGNESIUM 2.0 1.6-2.6 ANION GAP 7 5-15 ALKALINE PHOSPHATASE 78 40-150 ALT/SGPT 20 <55 AST/SGOT 19 <34 .CREAT EGFR(CKD-EPI) 87 >60 Oct 06, 2023 09:23 AM [facility] CBC & DIFF Specimen Type: BLOOD Comment: Automated Differential Performed Ordering Provider: PRETTY GARCIA ND Report Released Date/Time: Aug 11, 2023 09:38 AM Reporting Lab: [facility] [id number] Performing Lab: [facility] [id number] WBC 5.36 4.0-11.0 RBC 4.28 L 4.6-6.2 [...] RO) 0.4 ABS IMMATURE GRAN 0.02 0-0.1 Immunizations: All administered on the encounter date This section contains immunizations associated to the Encounter. Immunization Series Date Issued Reaction Comments COVID-19 (PFIZER), MRNA, LNP -S, PF, XUAN-SUCROSE, 30 MCG/0.3 ML (AGES 12+ YEARS) Sep 22, 2023 Social History: Smoking Status (Most current) and Tobacco Use (All prior to encounter date) This section includes the most current, and the historical, smoking and tobacco- related health factors from the [place] facility where the Encounter took place. Current Smoking Status This section includes the most current smoking, or tobacco-related health factor, from the [place] facility where the Encounter took place. Date/Time Current Smoking Status Comment Thiago ity May 05, 2023 04:00 PM VA-TOBACCO NEVER USED [facility] Tobacco Use History This section includes a history of the smoking, or tobacco-related health factors, that were collected on or before the date of the Encounter. The data comes from the [place] facility where the Encounter took place. Date/Time Smoking Status/Tobacco Use Comment F acility Apr 04, 2022 08:30 AM VA-TOBACCO NEVER USED [facility] May 15, 2021 10:00 AM VA-TOBACCO NEVER USED [facility] Oct 05, 2019 10:05 AM VA-TOBACCO NEVER USED [facility] Oct 20, 2018 12:28 PM INPT NO TOBACCO USE IN LAST 30 D AYS [facility] Sep 15, 2018 01:21 PM VA-TOBACCO NEVER USED [facility] Aug 11, 2017 08:54 AM LIFETIME NON-TOBACCO USER [facility] Jul 08, 2016 08:07 AM LIFETIME NON-TOBACCO USER [facility] May 09, 2015 02:31 PM LIFETIME NON-TOBACCO USER [facility] Apr 14, 2014 08:41 AM LIFETIME NON-TOBACCO USER [facility] Jan 06, 2007 08:51 AM LIFETIME NON-TOBACCO USER [facility]
--- OUTSIDE RECORDS SUMMARY | 2023-10-25 20:16 | XMS_ITS | Encounter Summary ---
Author Name Department of Vetera Affairs Organization Department of Vetera ns Affairs Address [address] [place] [address] Support Name Relationship Address Phone HOMER Arti COLEMAN Next of Kin [address] [phone] ADITYA MALIN Emergency Contact [address] [place] [address] Insurance Providers: All historical and current Section [...] Policy [place] MEDICARE (WNR) MEDICARE (M) PART B May 15, 2009 PART B [id number] [phone] HOMER RICKY PATIENT MEDICARE (WNR) MEDICARE (M) PART A May 15, 2009 PART A [id number] RICKY CORONEL PATIENT Selected Encounter This section includes the information on record at [place] for the Encounter. Date/Time Encounter Type Encounter Description Reason Pro vider Source Oct 08, 2023 07:51 AM Outpatient Encounter CLINICAL PHARMACY IHE Encounter Template Text not used by [...] [place] treatment facilities. Appointment Date/Time Appointment Type Appointme nt Facility Name Oct 14, 2023 09:00 AM AMBULATORY - MEDICINE [facility] Nov 05, 2023 09[facility]00 AM [facility] Dec 09, 2023 08:00 AM AMBULATORY - NONE [facility] Dec 09, 2023 09:00 AM AMBULATORY - MEDICINE [facility] Active, Pending, and Scheduled Orders This section includes a listing of several types of active, pending, and scheduled orders, including clinic medications orders, diagnostic test orders, procedure orders and consult orders; where the start date of the order is 45 days before the date of the Encounter or 45 days after the date of theEncounter. The data comes from all [place] treatment facilities. Test Date/Time Test Type Test Details Facility Name Oct 14, 2023 09:10 AM Consult Order COMMUNITY CARE-MEDICAL ONCOLOGY Cons Silviculture Teacher's Choice [facility] Lab Results: +/- 30 days of the [...] Range Comment Oct 06, 2023 09:24 AM [facility] PT/INR(ANTICOAG) Specimen Type: PLASMA No comment entered. Ordering Provider: MIRA GARCIA Report Released Date/Time: Aug 27, 2023 09:50 AM Reporting Lab: [facility] [id number] Performing Lab: [facility] [address] .INR 2.5 H 0.8-1.1 .PT 29.3 H 9.4-12.5 Oct 06, 2023 09:23 AM [facility] COMPREHENSIVE METABOLIC PANEL+MG Specimen Type: PLASMA Comment: Automated Differential Performed Ordering Provider: PRETTY GARCIA ND Report Released Date/Time: Aug 11, 2023 09:38 AM Reporting Lab: [facility] [phone] Performing Lab: [facility] [id number] CREATININE 0.9 0.7-1.2 UREA NITROGEN 17 8-26 GLUCOSE 118 H 70-100 SODIUM 140 136-145 POTASSIUM 4.0 3.5-5.1 CHLORIDE 107 98-107 CO2 26 22-29 CALCIUM 8.9 8.4-10.2 PROTEIN,TOTAL 6.4 6.0-8.3 ALBUMIN 3.8 3.5-5.2 BILIRUBIN, TOTAL 1.0 0.2-1.2 MAGNESIUM 2.0 1.6-2.6 ANION GAP 7 5-15 ALKALINE PHOSPHATASE 78 40-150 ALT/SGPT 20 <55 AST/SGOT 19 <34 .CREAT EGFR(CKD-EPI) 87 >60 Oct 06, 2023 09:23 AM [facility] CBC & DIFF Specimen Type: BLOOD Comment: Automated Differential Performed Ordering Provider: PRETTY GARCIA ND Report Released Date/Time: Aug 11, 2023 09:38 AM Reporting Lab: [facility] [phone] Performing Lab: [facility] [address] WBC 5.36 4.0-11.0 RBC 4.28 L 4.6-6.2 [...] RO) 0.4 ABS IMMATURE GRAN 0.02 0-0.1 Social History: Smoking Status (Most current) and Tobacco Use (All prior to encounter date) This section includes the most current, and the historical, smoking and tobacco- related health factors from the [facility] where the Encounter took place. Current Smoking Status This section includes the most current smoking, or tobacco-related health factor, from the [place] facility where the Encounter took place. Date/Time Current Smoking Status Comment Thiago stephens May 05, 2023 04:00 PM VA-TOBACCO NEVER USED [facility] Tobacco Use History This section includes a history of the smoking, or tobacco-related health factors, that were collected on or before the date of the Encounter. The data comes from the [place] facility where the Encounter took place. Date/Time Smoking Status/Tobacco Use Comment F acility Apr 04, 2022 08:30 AM VA-TOBACCO NEVER USED [facility] May 15, 2021 10:00 AM VA-TOBACCO NEVER USED [facility] Oct 05, 2019 10:05 AM VA-TOBACCO NEVER USED [facility] Oct 20, 2018 12:28 PM INPT NO TOBACCO USE IN LAST 30 D AYS [facility] Sep 15, 2018 01:21 PM VA-TOBACCO NEVER USED [facility] Aug 11, 2017 08:54 AM LIFETIME NON-TOBACCO USER [facility] Jul 08, 2016 08:07 AM LIFETIME NON-TOBACCO USER [facility] May 09, 2015 02:31 PM LIFETIME NON-TOBACCO USER [facility] Apr 14, 2014 08:41 AM LIFETIME NON-TOBACCO USER [facility] Jan 06, 2007 08:51 AM LIFETIME NON-TOBACCO USER [facility] Pathology Reports: +/- 30 days of the [...] the Encounter. The data comes from all [facility] facilities. Date/Time Pathology Report Provider Source Oct 23, 2023 10:27 AM LR CYTOPATHOLOGY REPORT: LOCAL TITLE: LR CYTOPATHOLOGY REPORT STANDARD TITLE: PATHOLOGY REPORT DATE OF NOTE: OCT 23, 2023@10:27:01 ENTRY DATE: OCT 23, 2023@10:27:01 AUTHOR: HEIDI ZIMMERMAN EXP COSIGNER: URGENCY: STATUS: COMPLETED $APHDR Reporting Lab: [facility] [CLIA# [id number]] [place] [address] - - - - - - - [...] - - - - $TEXT Submitted by: SHERFI JOLLY Date obtained: Oct 22, 2023 14:55 [...] - - - Screened by: AJITH Blackwood [facility] Description: Received a total of 1 stained slide and 9 unstained slides labeled with the accession number of [id number], Ricky Coronel (date of collection 09/15/2023), with the report signed out by Dr. Crissy Bowie M.D. After review, slides are returned to: [facility] Division of Anatomic Pathology [address] [place], [address] Microscopic: Microscopic examination performed. BB Diagnosis: Review [...] 2023@10:27 Performing Laboratory: Cytology Report Performed By: [facility] [CLIA# [id number]] [place] [address] $FTR - - - - - - - - - - - - - - - - - - - - - - - - - - - - - - - - - - - - - - - - (End of report) HEIDI ZIMMERMAN MD bcb Date Oct 23, 2023 - - - - - - - - - - - - - - - - - - - - - - - - - - - - - - - - - - - - - - - - RICKY CORONEL STANDARD FORM 515 ID:[id number] SEX:M :[id number] AGE: 78 LOC:[facility] PCP: Annie Singh /mustapha/ HEIDI ZIMMERMAN MD STAFF PATHOLOGIST Signed: 10/23/2023 10:27 HEIDI ZIMMERMAN [facility] Encounter Notes: All associated encounter notes This section contains the clinical notes associated to the Encounter. Date/Time Encounter Note(s) Provider Source Oct 08, 2023 07:51 AM PHARMACY NOTE: LOCAL TITLE: ANTICOAG ENTRY OF OUTSIDE LABS STANDARD TITLE: PHARMACY NOTE DATE OF NOTE: OCT 08, 2023@07:51 ENTRY DATE: OCT 08, 2023@07:51:09 AUTHOR: CRISSY YOU EXP COSIGNER: URGENCY: STATUS: COMPLETED INR: Date: October 07, 2023 Results: 2.66 Location: [facility] /mustapha/ CRISSY YOU MEDICAL SUPPORT ASSISTAT Signed: 10/08/2023 08:00 Receipt Acknowledged By: 10/08/2023 08:35 /mustapha/ VISHNU DICKSON CLINICAL RADIO NEWS WRITER CRISSY YOU [facility]
--- OUTSIDE RECORDS SUMMARY | 2023-10-25 20:16 | XMS_ITS | Encounter Summary ---
Author Name [facility] Organization [facility] Address [address] [place] [address] Support Name Relationship Address Phone Arti CORONEL Next of Kin [address] [address] ADITYA MALIN Emergency Contact [address] [place] [address] Insurance Providers: All historical and current Section [...] PART A May 15, 2009 PART A [id number] [phone] ELLE CORONEL PATIENT MEDICARE (WNR) MEDICARE (M) PART B May 15, 2009 PART B [id number] [phone] ELLE CORONEL PATIENT Selected Encounter This section includes the information on record at OR for the Encounter. Date/Time Encounter Type Encounter Description Reason Provider Source Oct 14, 2023 09:00 AM OFFICE O/P NEW [place] 60 MIN ONCOLOGY/TUMOR ICD-10-CM C7A.00 Malignant carcinoid tumor of unspecified site LISA RAMIREZ Encounter Template Text not used by OR Assessments - Encounter Diagnoses This section includes the primary and secondary diagnoses documented for the Encounter. Date/Time Primary/Secondary Diagnosis Diagnosis Name Provider Source Oct 14, 2023 08:36 AM PRIMARY Malignant carcinoid tumor of unspecified site CYRUS DAVENPORT [facility] Oct 14, 2023 08:36 AM SECONDARY Counseling, unspecified MUKHIJA,LISA KA [facility] Oct 14, 2023 08:36 AM SECONDARY Encounter for therapeutic drug level monitoring LISA RAMIREZ [facility] Oct 14, 2023 08:36 AM SECONDARY Secondary carcinoid tumors of bone CYRUS DAVENPORT [facility] Oct 14, 2023 08:36 AM SECONDARY Secondary carcinoid tumors of liver LISA RAMIREZ [facility] Plan of Treatment: Future Appointments (+ 6 months) and Future Tests (+/- 45 days) The Plan of Treatment section includes future care activities for the [facility] This section includes future appointments and future orders which are active, pending or scheduled. Future Appointments This section includes appointments that were scheduled to occur 6 months from the date of the Encounter, up to a maximum of 20 appointments. The data comes from all OR treatment facilities. Appointment Date/Time Appointment Type Appointme nt Facility Name Nov 05, 2023 09:00 AM AMBULATORY - MEDICINE [facility] Dec 09, 2023 08:00 AM AMBULATORY - NONE [facility] Dec 09, 2023 09:00 AM AMBULATORY - MEDICINE [facility] Active, Pending, and Scheduled Orders This section includes a listing of several types of active, pending, and scheduled orders, including clinic medications orders, diagnostic test orders, procedure orders and consult orders; where the start date of the order is 45 days before the date of the Encounter or 45 days after the date of theEncounter. The data comes from all [facility]. Test Date/Time Test Type Test Details Facility Name Oct 14, 2023 09:10 AM Consult Order [facility] Cons C Consultant's Choice [facility] Lab Results: +/- 30 [...] Range Comment Oct 06, 2023 09:24 AM [facility] PT/INR(ANTICOAG) Specimen Type: PLASMA No comment entered. Ordering Provider: MIRA GARCIA Report Released Date/Time: Aug 27, 2023 09:50 AM Reporting Lab: [facility] [id number] Performing Lab: [facility] [id number] .INR 2.5 H 0.8-1.1 .PT 29.3 H 9.4-12.5 Oct 06, 2023 09:23 AM [facility] COMPREHENSIVE METABOLIC PANEL+MG Specimen Type: PLASMA Comment: Automated Differential Performed Ordering Provider: PRETTY GARCIA ND Report Released Date/Time: Aug 11, 2023 09:38 AM Reporting Lab: [facility] [id number] Performing Lab: [facility] [id number] CREATININE 0.9 0.7-1.2 UREA NITROGEN 17 8-26 GLUCOSE 118 H 70-100 SODIUM 140 136-145 POTASSIUM 4.0 3.5-5.1 CHLORIDE 107 98-107 CO2 26 22-29 CALCIUM 8.9 8.4-10.2 PROTEIN,TOTAL 6.4 6.0-8.3 ALBUMIN 3.8 3.5-5.2 BILIRUBIN, TOTAL 1.0 0.2-1.2 MAGNESIUM 2.0 1.6-2.6 ANION GAP 7 5-15 ALKALINE PHOSPHATASE 78 40-150 ALT/SGPT 20 <55 AST/SGOT 19 <34 .CREAT EGFR(CKD-EPI) 87 >60 Oct 06, 2023 09:23 AM [facility] CBC & DIFF Specimen Type: BLOOD Comment: Automated Differential Performed Ordering Provider: PRETTY GARCIA ND Report Released Date/Time: Aug 11, 2023 09:38 AM Reporting Lab: [facility] [id number] Performing Lab: [facility] [id number] WBC 5.36 4.0-11.0 RBC 4.28 L 4.6-6.2 [...] Height Weight Body Mass Index Source Oct 14, 2023 08:30 AM 98.2 F 68 /min 110/73 mm[Hg] 16 /min 95 % 1 216.5 lb 31 JYOTI BARRIOS [facility] Social History: Smoking Status (Most [...] 05, 2023 04:00 PM VA-TOBACCO NEVER USED [facility] Tobacco Use History This section includes a history of the smoking, or tobacco-related health factors, that were collected on or before the date of the Encounter. The data comes from the OR facility where the Encounter took place. Date/Time Smoking Status/Tobacco Use Comment F acpablo Apr 04, 2022 08:30 AM VA-TOBACCO NEVER USED [facility] May 15, 2021 10:00 AM VA-TOBACCO NEVER USED [facility] Oct 05, 2019 10:05 AM VA-TOBACCO NEVER USED [facility] Oct 20, 2018 12:28 PM INPT NO TOBACCO USE IN LAST 30 D AYS [facility] Sep 15, 2018 01:21 PM VA-TOBACCO NEVER USED [facility] Aug 11, 2017 08:54 AM LIFETIME NON-TOBACCO USER [facility] Jul 08, 2016 08:07 AM LIFETIME NON-TOBACCO USER [facility] May 09, 2015 02:31 PM LIFETIME NON-TOBACCO USER [facility] Apr 14, 2014 08:41 AM LIFETIME NON-TOBACCO USER [facility] Jan 06, 2007 08:51 AM LIFETIME NON-TOBACCO USER [facility] Pathology Reports: +/- 30 days [...] the Encounter. The data comes from all [facility] facilities. Date/Time Pathology Report Provider Source Oct 23, 2023 10:27 AM LR CYTOPATHOLOGY REPORT: LOCAL TITLE: LR CYTOPATHOLOGY REPORT STANDARD TITLE: PATHOLOGY REPORT DATE OF NOTE: OCT 23, 2023@10:27:01 ENTRY DATE: OCT 23, 2023@10:27:01 AUTHOR: HEIDI ZIMMERMAN EXP COSIGNER: URGENCY: STATUS: COMPLETED $APHDR Reporting Lab: [facility] [CLIA# [id number]] [place] [address] - - - - - - - [...] - - - Screened by: AJITH Blackwood [facility] Description: Received a total of 1 stained slide and 9 unstained slides labeled with the accession number of [id number], Elle Coronel (date of collection 09/15/2023), with the report signed out by Dr. Crissy Bowie M.D. After review, slides are returned to: [facility] Division of Anatomic Pathology [address] [place], [address] Microscopic: Microscopic examination performed. BB Diagnosis: Review [...] 2023@10:27 Performing Laboratory: Cytology Report Performed By: [facility] [CLIA# [id number]] [place] [address] $FTR - - - - - - [...] - - ELLE CORONEL STANDARD FORM 515 ID:[id number] SEX:M :1945 AGE: 78 LOC:[facility] PCP: Annie Singh /mustapha/ HEIDI ZIMMERMAN MD STAFF PATHOLOGIST Signed: 10/23/2023 10:27 HEIDI ZIMMERMAN [facility] Encounter Notes: All associated encounter notes This section contains the clinical notes associated to the Encounter. Date/Time Encounter Note(s) Provider Source Oct 14, 2023 12:24 PM ADDENDUM: LOCAL TITLE: Addendum STANDARD TITLE: ADDENDUM DATE OF NOTE: OCT 14, 2023@12:24:31 ENTRY DATE: OCT 14, 2023@12:24:32 AUTHOR: SHERIF RAMIREZ EXP COSIGNER: URGENCY: STATUS: COMPLETED 78-year-old patient with progressive carcinoid status post octreotide, being seen for consideration of neck steps. Patient has evidence of very clear progression on serial scans, remains asymptomatic which is encouraging. He was also seen at [facility] several months ago and was recommended PRRT which I agree with. He reports having a liver biopsy at [facility] in 2022 but we do not have the slides reviewed here so will request that for our recordkeeping. Alert Radha to this. Patient can continue monthly octreotide until he establishes at [facility] for PRRT at which point he can continue it there if he wishes to avoid fragmented care. In case, PRRT is not deemed to be an option for him at [facility], he was advised to schedule a follow-up visit in the next few weeks to discuss next steps. Patient has now transitioned to my clinic so we will cancel Immanuel's clinic appointments. 40 minutes spent on chart review, discussion with the patient, multidisciplinary treatment plan, orders, care coordination and medical record documentation. This note has been generated using speech to text (Machinio) technology. Please excuse any typos, errors and omissions. 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 He has been on long acting octreotide since 08/2019 with overall stable disease. He also has prostate cancer, s/p HIFU treatment in [place] and is being followed by Urology at [facility]. Interval Hx: Pt was recently seen in clinic and began discussing utilizing PRRT treatment for progression IV carcinoid. Pt notes that he was also seen at [facility] and was screened for a clinical trial with PRRT, but had not qualified based on Ki 67 score. He continues to have frequent loose stools (~5x/day) with intermittent flushing w/ hot flashes. He notes that his symptoms have not changed and he continues to feel well overall. He goes to the gym regularly. Denies fever, chills, N/V/D abdominal pain. 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 - He also has prostate cancer [place] 3+4, pt had HIFU in [place] 10/09/07 and 2 treatments of lupron. 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 - Also a saturation biopsy of the prostate done at [place] 11/20/08 with no evidence for prostate cancer [...] there - 01/2014 Underwent salvage prostatectomy at [facility]. - 07/17/14-02/2019 scans stable - 08/26/19 CT [...] acting Octreotide 09/2019 Dotatate scan done at [facility] 1. Innumerable mets throughout [...] - 02/07/22 CT and MRI done at [facility] show: No significant interval change of the metastatic disease in the abdomen. 08/04/22 CT and MRI done at [facility] show: CT show: IMPRESSION: 1. Subcentimeter nodules [...] - 03/02/23 CT and MRI done at [facility] IMPRESSION: 1. Multiple bilateral lung nodules are [...] 05, 2011) Nursing note and vitals reviewed: VITAL SIGNS: Tempreture:98.2 F [36.8 C] (10/14/2023 08:30), BP: 110/73 (10/14/2023 08:30), HR: 68 (10/14/2023 08:30), RR: 16 (10/14/2023 08:30), Weight: 216.5 lb [98.20 kg] (10/14/2023 08:30) PHYSICAL EXAMINATION: General: NAD, sitting comfortably, pleasant HEENT: NC/AT, no scleral icterus Cards: RRR Pulm CTAB Abdomen Soft, nondistended Extremities: No edema currently Neuro: Moving all extremities arppropriately Skin: no rashes on limited exam Psych: Euthymic LABORATORY/IMAGING STUDIES: The results of the laboratory and imaging studies obtained by Hem/Onc for this office visit were reviewed and discussed with the patient at today's clinic visit. CBC: WBC 5.36 (10/06/23) HGB 14.2 (10/06/23) HCT 41.9 (10/06/23) PLT 219 (10/06/23) ABS NEUT 3.09 (10/06/23) ABS LYMPH 1.43 (10/06/23) Hg trend: HGB 14.2 BLOOD (10/06/23 09:23) 14.3 BLOOD (08/11/23 08:31) 14.2 BLOOD (05/19/23 08:18) BMP POTASSIUM 4.0 (10/06/23) CO2 26 (10/06/23) UREA NITROGEN 17 (10/06/23) CREATININE 0.9 (10/06/23) CALCIUM 8.9 (10/06/23) Liver Function tests: SGOT 19 (10/06/23) SGPT 20 (10/06/23) BILIRUBIN, TOTAL 1.0 (10/06/23) ALK PHOSPHATASE 78 (10/06/23) ALBUMIN 3.8 (10/06/23) 09/15/23: US guided Liver fine needle [...] Dotatate PET and MR abd done at [facility] 09/09/23 FINDINGS: Due to the difference in [...] 3.6 cm on DOTATATE PET/CT dated 01/28/2021. At least two small DOTATATE avid foci [...] of the abdomen please see separate report. IMPRESSION: Slight interval enlargement of hepatic, peritoneal, [...] periaortic, mesenteric, and hilar node mets. He toleratied octreotide well overall. CT and MRI done at [facility] 02/2023 shows a slight increase in his hepatic, lymph node, and bone disease, but continues to have a fairly low burden of disease. As he was clinically doing well, the decision [...] His insurance will not cover this at [facility]. Pt was ultimately interested in trying PRRT (peptide receptor radionuclide therapy. We discussed the risks and benefits of PRRT, but ultimately that this is not currently offered at the OR. Pt is interested in pursuing PRRT, so we will refer to [facility]. If he does not qualify for PRRT, we could consider everolimus or CAPTEM. He will continue with monthly octreotide LAR, but if he starts PRRT he could potentially stop his octreotide injections. Continue to repeat TTE every couple of years (next due 2023) thru [facility]. (2) [place] 4 + 3 adenocarcinoma of the prostate (pT3a, N0, MX), diagnosed 2006; status post high-intensity focused ultrasound in 2007 ([place]) s/p salvage prostatectomy and bilateral pelvic LN dissection (2013). Has had periodic but brief f/u with [facility] and thru PCP. His PSA has been stable at the [facility] and here. PSA 05/2023 was 0.01. 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 Also L1 fracture due to fall - Managed by outside PCP (5) Fatigue: maybe due to poor sleep hygiene. TSH is normal. HgB stable - Defer management to PCP (6) Osteopenia: Recent DXA show osteopenia - Maintain on calcium + Vitamin D - encourage wt bearing exercise Plan: -Refer to [facility] to consider PRRT for progressive IV carcinoid -Return to clinic in 2 months (12/09/23) to confirm if he is established with [facility] versus start next line treatment at the OR. Pt can cancel this appt if he is established with [facility] at that point -Continue monthly octreotide while pt is pending PRRT evaluation at [facility] Patient Education of Treatment Plan: Patient and family member indicates readiness to learn, verbalizes understanding, agreement and satisfaction with the treatment plan. All questions answered to their apparent satisfaction. 40 mins spent with patient reviewing history, lab results, examination, reviewing treatment plan and EHR documentation Pt was seen and discussed with Dr. 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 He has been on long acting octreotide since 08/2019 with overall stable disease. He also has prostate cancer, s/p HIFU treatment in [place] and is being followed by Urology at [facility]. Interval Hx: Pt was recently seen in clinic and began discussing utilizing PRRT treatment for progression IV carcinoid. Pt notes that he was also seen at [facility] and was screened for a clinical trial with PRRT, but had not qualified based on Ki 67 score. He continues to have frequent loose stools (~5x/day) with intermittent flushing w/ hot flashes. He notes that his symptoms have not changed and he continues to feel well overall. He goes to the gym regularly. Denies fever, chills, N/V/D abdominal pain. 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 - He also has prostate cancer [place] 3+4, pt had HIFU in [place] 10/09/07 and 2 treatments of lupron. 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 - Also a saturation biopsy of the prostate done at [place] 11/20/08 with no evidence for prostate cancer [...] there - 01/2014 Underwent salvage prostatectomy at [facility]. - 07/17/14-02/2019 scans stable - 08/26/19 CT [...] acting Octreotide 09/2019 Dotatate scan done at [facility] 1. Innumerable mets throughout [...] - 02/07/22 CT and MRI done at [facility] show: No significant interval change of the metastatic disease in the abdomen. 08/04/22 CT and MRI done at [facility] show: CT show: IMPRESSION: 1. Subcentimeter nodules [...] - 03/02/23 CT and MRI done at [facility] IMPRESSION: 1. Multiple bilateral lung nodules are [...] 05, 2011) Nursing note and vitals reviewed: VITAL SIGNS: Tempreture:98.2 F [36.8 C] (10/14/2023 08:30), BP: 110/73 (10/14/2023 08:30), HR: 68 (10/14/2023 08:30), RR: 16 (10/14/2023 08:30), Weight: 216.5 lb [98.20 kg] (10/14/2023 08:30) PHYSICAL EXAMINATION: General: NAD, sitting comfortably, pleasant HEENT: NC/AT, no scleral icterus Cards: RRR Pulm CTAB Abdomen Soft, nondistended Extremities: No edema currently Neuro: Moving all extremities arppropriately Skin: no rashes on limited exam Psych: Euthymic LABORATORY/IMAGING STUDIES: The results of the laboratory and imaging studies obtained by Hem/Onc for this office visit were reviewed and discussed with the patient at today's clinic visit. CBC: WBC 5.36 (10/06/23) HGB 14.2 (10/06/23) HCT 41.9 (10/06/23) PLT 219 (10/06/23) ABS NEUT 3.09 (10/06/23) ABS LYMPH 1.43 (10/06/23) Hg trend: HGB 14.2 BLOOD (10/06/23 09:23) 14.3 BLOOD (08/11/23 08:31) 14.2 BLOOD (05/19/23 08:18) BMP POTASSIUM 4.0 (10/06/23) CO2 26 (10/06/23) UREA NITROGEN 17 (10/06/23) CREATININE 0.9 (10/06/23) CALCIUM 8.9 (10/06/23) Liver Function tests: SGOT 19 (10/06/23) SGPT 20 (10/06/23) BILIRUBIN, TOTAL 1.0 (10/06/23) ALK PHOSPHATASE 78 (10/06/23) ALBUMIN 3.8 (10/06/23) 09/15/23: US guided Liver fine needle [...] Dotatate PET and MR abd done at [facility] 09/09/23 FINDINGS: Due to the difference in [...] 3.6 cm on DOTATATE PET/CT dated 01/28/2021. At least two small DOTATATE avid foci [...] of the abdomen please see separate report. IMPRESSION: Slight interval enlargement of hepatic, peritoneal, [...] periaortic, mesenteric, and hilar node mets. He toleratied octreotide well overall. CT and MRI done at [facility] 02/2023 shows a slight increase in his hepatic, lymph node, and bone disease, but continues to have a fairly low burden of disease. As he was clinically doing well, the decision was to continue with octreotide and repeat scans in 6 months and consideration for 2nd line therapy with PRRT vs everolimus. He had PET MR and DOTATATE done 12/27/23 which show ongoing disease progression in osseous, [...] His insurance will not cover this at [facility]. Pt was ultimately interested in trying PRRT (peptide receptor radionuclide therapy. We discussed the risks and benefits of PRRT, but ultimately that this is not currently offered at the OR. Pt is interested in pursuing PRRT, so we will refer to [facility]. If he does not qualify for PRRT, we could consider everolimus or CAPTEM. He will continue with monthly octreotide LAR, but if he starts PRRT he could potentially stop his octreotide injections. Continue to repeat TTE every couple of years (next due 2023) thru [facility]. (2) [place] 4 + 3 adenocarcinoma of the prostate (pT3a, N0, MX), diagnosed 2006; status post high-intensity focused ultrasound in 2007 ([place]) s/p salvage prostatectomy and bilateral pelvic LN dissection (2013). Has had periodic but brief f/u with [facility] and thru PCP. His PSA has been stable at the [facility] and here. PSA 05/2023 was 0.01. 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 Also L1 fracture due to fall - Managed by outside PCP (5) Fatigue: maybe due to poor sleep hygiene. TSH is normal. HgB stable - Defer management to PCP (6) Osteopenia: Recent DXA show osteopenia - Maintain on calcium + Vitamin D - encourage wt bearing exercise Plan: -Refer to [facility] to consider PRRT for progressive IV carcinoid -Return to clinic in 2 months (12/09/23) to confirm if he is established with [facility]. Pt can cancel this appt if he is established with [facility] at that point -Continue monthly octreotide while pt is pending PRRT evaluation at [facility] Patient Education of Treatment Plan: Patient and family member indicates readiness to learn, verbalizes understanding, agreement and satisfaction with the treatment plan. All questions answered to their apparent satisfaction. 40 mins spent with patient reviewing history, lab results, examination, reviewing treatment plan and EHR documentation Pt was seen and discussed with Dr. Ramirez /mustapha/ CYRUS Palacios. ISSAC DEL ROSARIO/ONC FELLOW Signed: 10/14/2023 11:45 Receipt Acknowledged By: 10/14/2023 12:23 /mustapha/ SHERIF RAMIREZ PHYSICIAN 10/14/2023 ADDENDUM STATUS: COMPLETED 78-year-old patient with progressive carcinoid status post octreotide, being seen for consideration of neck steps. Patient has evidence of very clear progression on serial scans, remains asymptomatic which is encouraging. He was also seen at [facility] several months ago and was recommended PRRT which I agree with. He reports having a liver biopsy at [facility] in 2022 but we do not have the slides reviewed here so will request that for our recordkeeping. Alert Radha to this. Patient can continue monthly octreotide until he establishes at [facility] for PRRT at which point he can continue it there if he wishes to avoid fragmented care. In case, PRRT is not deemed to be an option for him at [facility], he was advised to schedule a follow-up visit in the next few weeks to discuss next steps. Patient has now transitioned to my clinic so we will cancel Gobind's clinic appointments. 40 minutes spent on chart review, discussion with the patient, multidisciplinary treatment plan, orders, care coordination and medical record documentation. This note has been generated using speech to text (Machinio) technology. Please excuse any typos, errors and omissions. /kanchan RAMIREZ PHYSICIAN Signed: 10/14/2023 12:28 Receipt Acknowledged By: 10/15/2023 06:46 /kanchan MEDELLIN MSA 10/16/2023 ADDENDUM STATUS: COMPLETED Request for slides from 2022 liver biopsy at [facility] requested 10/16/23. Fax request with shipping label sent. /kanchan MEDELLIN MSA Signed: 10/16/2023 10:44 [facility] Oct 14, 2023 08:31 AM INTERNAL MEDICINE OUTPATIENT NOTE: LOCAL TITLE: MEDICINE CLINIC NURSING NOTE STANDARD TITLE: INTERNAL MEDICINE OUTPATIENT NOTE DATE OF NOTE: OCT 14, 2023@08:31 ENTRY DATE: OCT 14, 2023@08:31:13 AUTHOR: REICHOW,ARMANDO L EXP COSIGNER: URGENCY: STATUS: COMPLETED TYPE OF VISIT: Appointment Check In Type of appointment: In-person appointment REASON FOR VISIT: scheduled visit ALLERGIES: DIAL SOAP (Mar 25, 2007) NAPROXEN (February 05, 2011) VITAL SIGNS: Blood Pressure: 110/73 (10/14/2023 08:30) Pulse: 68 (10/14/2023 08:30) Respiration: 16 (10/14/2023 08:30) Temperature: 98.2 F [36.8 C] (10/14/2023 08:30) Weight: 216.5 lb [98.20 kg] (10/14/2023 08:30) Height: 70.6 in [179.3 cm] (05/05/2023 16:08) BMI: 30.6 O2 Sat: 95% (10/14/2023 08:30) Pain: 1 (10/14/2023 08:30) PAIN SCREEN: Patient is not having significant pain that they wish to discuss with their provider today. MEDICATION Over the Counter/Herbal Medications: The patient denies taking any outside medications or herbals. /mustapha/ ARMANDO PURCELL LPN LPN Signed: 10/14/2023 08:31 [facility]
--- OUTSIDE RECORDS SUMMARY | 2023-10-25 20:17 | XMS_ITS | Encounter Summary ---
Author Name Department of Vetera Affairs Organization Department of Vetera ns Affairs Address [address] [place] [address] Support Name Relationship Address Phone HOMER Arti COLEMAN Next of Kin [address] [address] ADITYA MALIN Emergency Contact [address] [place], [place] [address] Insurance Providers: All historical and current Section [...] PART B May 15, 2009 PART B [id number] 94A [phone] SHAYVERONICA RICKY PATIENT MEDICARE (WNR) MEDICARE (M) PART A May 15, 2009 PART A [id number] RICKY CORONEL PATIENT Selected Encounter This section includes the information on record at [place] for the Encounter. Date/Time Encounter Type Encounter Description Reason Pro vider Source Oct 07, 2023 12:00 AM Outpatient Encounter EVENT (HISTORICAL) [...] [place] treatment facilities. Appointment Date/Time Appointment Type Appointme nt Facility Name Oct 14, 2023 09:00 AM AMBULATORY - MEDICINE [facility] Nov 05, 2023 09:00 AM [facility] Dec 09, 2023 08:00 AM AMBULATORY - NONE [facility] Dec 09, 2023 09:00 AM AMBULATORY - MEDICINE [facility] Active, Pending, and Scheduled Orders This section includes a listing of several types of active, pending, and scheduled orders, including clinic medications orders, diagnostic test orders, procedure orders and consult orders; where the start date of the order is 45 days before the date of the Encounter or 45 days after the date of theEncounter. The data comes from all [place] treatment facilities. Test Date/Time Test Type Test Details Facility Name Oct 14, 2023 09:10 AM Consult Order [facility]-MEDICAL ONCOLOGY Cons Hospice Executive Director's Choice [facility] Lab Results: +/- [...] Range Comment Oct 06, 2023 09:24 AM [facility] PT/INR(ANTICOAG) Specimen Type: PLASMA No comment entered. Ordering Provider: MIRA GARCIA Report Released Date/Time: Aug 27, 2023 09:50 AM Reporting Lab: [facility] [id number] Performing Lab: [facility] [address] .INR 2.5 H 0.8-1.1 .PT 29.3 H 9.4-12.5 Oct 06, 2023 09:23 AM [facility] CBC & DIFF Specimen Type: BLOOD Comment: Automated Differential Performed Ordering Provider: PRETTY GARCIA ND Report Released Date/Time: Aug 11, 2023 09:38 AM Reporting Lab: [facility] [address] Performing Lab: [facility] [address] WBC 5.36 4.0-11.0 RBC 4.28 L 4.6-6.2 [...] RO) 0.4 ABS IMMATURE GRAN 0.02 0-0.1 Oct 06, 2023 09:23 AM [facility] COMPREHENSIVE METABOLIC PANEL+MG Specimen Type: PLASMA Comment: Automated Differential Performed Ordering Provider: PRETTY GARCIA ND Report Released Date/Time: Aug 11, 2023 09:38 AM Reporting Lab: [facility] [id number] Performing Lab: [facility] [address] CREATININE 0.9 0.7-1.2 UREA NITROGEN 17 8-26 GLUCOSE 118 H 70-100 SODIUM 140 136-145 POTASSIUM 4.0 3.5-5.1 CHLORIDE 107 98-107 CO2 26 22-29 CALCIUM 8.9 8.4-10.2 PROTEIN,TOTAL 6.4 6.0-8.3 ALBUMIN 3.8 3.5-5.2 BILIRUBIN, TOTAL 1.0 0.2-1.2 MAGNESIUM 2.0 1.6-2.6 ANION GAP 7 5-15 ALKALINE PHOSPHATASE 78 40-150 ALT/SGPT 20 <55 AST/SGOT 19 <34 .CREAT EGFR(CKD-EPI) 87 >60 Social History: Smoking Status (Most current) and Tobacco Use (All prior to encounter date) This section includes the most current, and the historical, smoking and tobacco- related health factors from the [place] facility where the Encounter took place. Current Smoking Status This section includes the most current smoking, or tobacco-related health factor, from the [place] facility where the Encounter took place. Date/Time Current Smoking Status Comment Thiago ity May 05, 2023 04:00 PM VA-TOBACCO NEVER USED [facility] Tobacco Use History This section includes a history of the smoking, or tobacco-related health factors, that were collected on or before the date of the Encounter. The data comes from the [place] facility where the Encounter took place. Date/Time Smoking Status/Tobacco Use Comment F acility Apr 04, 2022 08:30 AM VA-TOBACCO NEVER USED [facility] May 15, 2021 10:00 AM VA-TOBACCO NEVER USED [facility] Oct 05, 2019 10:05 AM VA-TOBACCO NEVER USED [facility] Oct 20, 2018 12:28 PM INPT NO TOBACCO USE IN LAST 30 D AYS [facility] Sep 15, 2018 01:21 PM VA-TOBACCO NEVER USED [facility] Aug 11, 2017 08:54 AM LIFETIME NON-TOBACCO [...] NON-TOBACCO USER [facility] Pathology Reports: +/- 30 days of the [...] the Encounter. The data comes from all [facility] facilities. Date/Time Pathology Report Provider Source Oct 23, 2023 10:27 AM LR CYTOPATHOLOGY REPORT: LOCAL TITLE: LR CYTOPATHOLOGY REPORT STANDARD TITLE: PATHOLOGY REPORT DATE OF NOTE: OCT 23, 2023@10:27:01 ENTRY DATE: OCT 23, 2023@10:27:01 AUTHOR: HEIDI ZIMMERMAN EXP COSIGNER: URGENCY: STATUS: COMPLETED $APHDR Reporting Lab: [facility] [CLIA# [id number]] [facility] [place] [address] - - - - - - - [...] - - - - [facility]ened [facility]: [facility] Description: Received a total of 1 stained slide and 9 unstained slides labeled with the accession number of [id number], Ricky Coronel (date of collection 09/15/2023), with the report signed out by Dr. Crissy Bowie M.D. After review, slides are returned to: [facility] Division of Anatomic Pathology [address] [place], [address] Microscopic: Microscopic examination performed. BB Diagnosis: Review [...] 2023@10:27 Performing Laboratory: Cytology Report Performed By: [facility] [CLIA# [id number]] [place] [address] $FTR - - - - - - [...] - - RICKY CORONEL STANDARD FORM 515 ID:[id number] SEX:M :1945 AGE: 78 [facility] P[facility]: Annie Singh /mustapha/ HEIDI ZIMMERMAN MD STAFF PATHOLOGIST Signed: 10/23/2023 10:27 HEIDI ZIMMERMAN [facility]
--- OUTSIDE RECORDS SUMMARY | 2023-10-25 20:17 | XMS_ITS | Encounter Summary ---
Author Name Department of Vetera Affairs Organization Department of Vetera ns Affairs Address [address] [place] [address] Support Name Relationship Address Phone HOMER Arti COLEMAN Next of Kin [address] [address] ADITYA MALIN Emergency Contact [address] [place], [place] [address] Insurance Providers: All historical and current Section [...] PART A May 15, 2009 PART A [id number] [phone] HOMER RICKY PATIENT MEDICARE (WNR) MEDICARE (M) PART B May 15, 2009 PART B [id number] 94A [phone] RICKY CORONEL PATIENT Selected Encounter This section includes the information on record at [place] for the Encounter. Date/Time Encounter Type Encounter Description Reason Provider Source Oct 19, 2023 09:32 AM Outpatient Encounter COMMUNITY CARE CONSULT [facility] Encounter Template Text not used by [place] Plan of Treatment: Future Appointments (+ 6 months) and Future Tests (+/- 45 days) The Plan of Treatment section includes future care activities for the patient from all [place] treatmentfacilities. This section includes future appointments and future orders which are active, pending or scheduled. Future Appointments This section includes appointments that were scheduled to occur 6 months from the date of the Encounter, up to a maximum of 20 appointments. The data comes from all [facility] treatment facilities. Appointment Date/Time Appointment Type Appointme nt Facility Name Nov 05, 2023 09:00 AM [facility] Dec 09, 2023 08:00 AM AMBULATORY - NONE [facility] Dec 09, 2023 09:00 AM AMBULATORY - MEDICINE [facility] Active, Pending, and Scheduled Orders This section includes a listing of several types of active, pending, and scheduled orders, including clinic medications orders, diagnostic test orders, procedure orders and consult orders; where the start date of the order is 45 days before the date of the Encounter or 45 days after the date of theEncounter. The data comes from all [facility]. Test Date/Time Test Type Test Details Facility Name Oct 14, 2023 09:10 AM Consult Order [facility]ITY [facility]-MEDICAL ONCOLOGY Cons Graphic Design Teacher's Choice [facility] Lab Results: +/- 30 days of the encounter This section includes the Chemistry and Hematology Lab Results on record with [place] for the patient. Radiology Reports and Pathology Reports are provided separately, in subsequent sections. Lab Results This section contains the Chemistry/Hematology Results that were resulted 30 days before or 30 daysafter the date of the Encounter. Date/Time Source Result Type Result - Unit Interpretation Reference Range Comment Oct 06, 2023 09:[address] [facility] PT/INR(ANTICOAG) Specimen Type: PLASMA No comment entered. Ordering Provider: MIRA GARCIA Report Released Date/Time: Aug 27, 2023 09:50 AM Reporting Lab: [facility] [id number] Performing Lab: [facility] [address] .INR 2.5 H 0.8-1.1 .PT 29.3 H 9.4-12.5 Oct 06, 2023 09:[address] [facility] COMPREHENSIVE METABOLIC PANEL+MG Specimen Type: PLASMA Comment: Automated Differential Performed Ordering Provider: PRETTY GARCIA ND Report Released Date/Time: Aug 11, 2023 09:38 AM Reporting Lab: [facility] [id number] Performing Lab: [facility] [address] CREATININE 0.9 0.7-1.2 UREA NITROGEN 17 8-26 GLUCOSE 118 H 70-100 SODIUM 140 136-145 POTASSIUM 4.0 3.5-5.1 CHLORIDE 107 98-107 CO2 26 22-29 CALCIUM 8.9 8.4-10.2 PROTEIN,TOTAL 6.4 6.0-8.3 ALBUMIN 3.8 3.5-5.2 BILIRUBIN, TOTAL 1.0 0.2-1.2 MAGNESIUM 2.0 1.6-2.6 ANION GAP 7 5-15 ALKALINE PHOSPHATASE 78 40-150 ALT/SGPT 20 <55 AST/SGOT 19 <34 .CREAT EGFR(CKD-EPI) 87 >60 Oct 06, 2023 09:[address] [facility] CBC & DIFF Specimen Type: BLOOD Comment: Automated Differential Performed Ordering Provider: PRETTY GARCIA ND Report Released Date/Time: Aug 11, 2023 09:38 AM Reporting Lab: [facility] [address] Performing Lab: [facility] [address] WBC 5.36 4.0-11.0 RBC 4.28 L 4.6-6.2 [...] and tobacco- related health factors from the [facility] where the Encounter took place. Current Smoking Status This section includes the most current smoking, or tobacco-related health factor, from the [facility] where the Encounter took place. Date/Time Current Smoking Status Comment Thiago stephens May 05, 2023 04:00 PM VA-TOBACCO NEVER USED [facility] Tobacco Use History This section includes a history of the smoking, or tobacco-related health factors, that were collected on or before the date of the Encounter. The data comes from the [place] facility where the Encounter took place. Date/Time Smoking Status/Tobacco Use Comment F acility Apr 04, 2022 08:30 AM VA-TOBACCO NEVER USED [facility] May 15, 2021 10:00 AM VA-TOBACCO NEVER USED [facility] Oct 05, 2019 10:05 AM VA-TOBACCO NEVER USED [facility] Oct 20, 2018 12:28 PM INPT NO TOBACCO USE IN LAST [address] [facility] Sep 15, 2018 01:21 PM VA-TOBACCO NEVER USED [facility] Aug 11, 2017 08:54 AM LIFETIME NON-TOBACCO USER [facility] Jul 08, 2016 08:07 AM LIFETIME NON-TOBACCO USER [facility] May 09, 2015 02:31 PM LIFETIME NON-TOBACCO USER [facility] Apr 14, 2014 08:41 AM LIFETIME NON-TOBACCO USER [facility] Jan 06, 2007 08:51 AM LIFETIME NON-TOBACCO USER [facility] Pathology Reports: +/- 30 days of [...] the Encounter. The data comes from all [facility] facilities. Date/Time Pathology Report Provider Source Oct 23, 2023 10:27 AM LR CYTOPATHOLOGY REPORT: LOCAL TITLE: LR CYTOPATHOLOGY REPORT STANDARD TITLE: PATHOLOGY REPORT DATE OF NOTE: OCT 23, 2023@10:27:01 ENTRY DATE: OCT 23, 2023@10:27:01 AUTHOR: HEIDI ZIMMERMAN EXP COSIGNER: URGENCY: STATUS: COMPLETED $APHDR Reporting Lab: [facility] [CLIA# [id number]] [place] [address] - - - - - - - [...] - - - - Screened by: AJITH MAYS Description: Received a total of 1 stained slide and 9 unstained slides labeled with the accession number of [id number], Ricky Coronel (date of collection 09/15/2023), with the report signed out by Dr. Crissy Bowie M.D. After review, slides are returned to: [facility] Division of Anatomic Pathology [address] [place], [address] Microscopic: Microscopic examination performed. BB Diagnosis: Review [...] 2023@10:27 Performing Laboratory: Cytology Report Performed By: [facility] [CLIA# [id number]] [place] [address] $FTR - - - - - - [...] - - RICKY CORONEL STANDARD FORM 515 ID:[id number] SEX:M :1945 AGE: 78 LOC:[facility] PCP: Annie Singh /mustapha/ HEIDI ZIMMERMAN MD STAFF PATHOLOGIST Signed: 10/23/2023 10:[address] [facility] Encounter Notes: All associated encounter notes This section contains the clinical notes associated to the Encounter. 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 No Level of Care Coordination Complex/Chronic Care Coordination was determined from: Chart Review Facility Community Care Office Contact Care Coordination Point of Contact: Citlali Peters RN, FIORELLA Services: Moderate Care Coordination Services Case Management, if appropriate Direct communications with interdisciplinary team Plan: Proceed with scheduling. High Risk. Progression with current treatmemt, so needs new treatment. 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
--- OUTSIDE RECORDS SUMMARY | 2023-10-25 20:18 | XMS_ITS | Encounter Summary ---
Author Name Department of Vetera Affairs Organization Department of Vetera ns Affairs Address [address] [place] [address] Support Name Relationship Address Phone HOMER Arti COLEMAN Next of Kin [address] [address] ADITYA MALIN Emergency Contact [address] [place], [place] [address] Insurance Providers: All historical and current Section [...] PART A May 15, 2009 PART A [id number] [phone] SHAYVERONICA RICKY PATIENT MEDICARE (WNR) MEDICARE (M) PART B May 15, 2009 PART B [id number] [phone] SHAYVERONICA RICKY PATIENT Selected Encounter This section includes the information on record at [place] for the Encounter. Date/Time Encounter Type Encounter Description Reason Provider Source Oct 23, 2023 10:27 AM Outpatient Encounter EVENT (HISTORICAL) HEIDI ZIMMERMAN [facility] Encounter Template Text not used by [place] Plan of Treatment: Future Appointments (+ 6 months) and Future Tests (+/- 45 days) The Plan of Treatment section includes future care activities for the patient from all [place] treatmentfacilities. This section includes future appointments and [...] 05, 2023 09:00 AM [facility] Dec 09, 2023 08:00 AM [facility] - NONE [facility] Dec 09, 2023 09:00 AM AMBULATORY - MEDICINE [facility] Active, Pending, and Scheduled Orders This section includes a listing of several types of active, pending, and scheduled orders, including clinic medications orders, diagnostic test orders, procedure orders and consult orders; where the start date of the order is 45 days before the date of the Encounter or 45 days after the date of theEncounter. The data comes from all [facility]. Test Date/Time Test Type Test Details Facility Name Oct 14, 2023 09:10 AM Consult Order [facility]-MEDICAL ONCOLOGY Cons Hand Stapler's Choice [facility] Lab Results: +/- 30 days of the encounter This section includes the Chemistry and Hematology Lab Results on record with [place] for the patient. Radiology Reports and Pathology Reports are provided separately, in subsequent sections. Lab Results This section contains the Chemistry/Hematology Results that were resulted 30 days before or 30 daysafter the date of the Encounter. Date/Time Source Result Type Result - Unit Interpretation Reference Range Comment Oct 06, 2023 09:24 AM [facility] PT/INR(ANTICOAG) Specimen Type: PLASMA No comment entered. Ordering Provider: MIRA GACRIA Report Released Date/Time: Aug 27, 2023 09:50 AM Reporting Lab: [facility] [id number] Performing Lab: [facility] [address] .INR 2.5 H 0.8-1.1 .PT 29.3 H 9.4-12.5 Oct 06, 2023 09:23 AM [facility] COMPREHENSIVE METABOLIC PANEL+MG Specimen Type: PLASMA Comment: Automated Differential Performed Ordering Provider: PRETTY GARCIA ND Report Released Date/Time: Aug 11, 2023 09:38 AM Reporting Lab: [facility] [id number] Performing Lab: [facility] [address] CREATININE 0.9 0.7-1.2 UREA NITROGEN 17 8-26 GLUCOSE 118 H 70-100 SODIUM 140 136-145 POTASSIUM 4.0 3.5-5.1 CHLORIDE 107 98-107 CO2 26 22-29 CALCIUM 8.9 8.4-10.2 PROTEIN,TOTAL 6.4 6.0-8.3 ALBUMIN 3.8 3.5-5.2 BILIRUBIN, TOTAL 1.0 0.2-1.2 MAGNESIUM 2.0 1.6-2.6 ANION GAP 7 5-15 ALKALINE PHOSPHATASE 78 40-150 ALT/SGPT 20 <55 AST/SGOT 19 <34 .CREAT EGFR(CKD-EPI) 87 >60 Oct 06, 2023 09:23 AM [facility] CBC & DIFF Specimen Type: BLOOD Comment: Automated Differential Performed Ordering Provider: PRETTY GARCIA ND Report Released Date/Time: Aug 11, 2023 09:38 AM Reporting Lab: [facility] [id number] Performing Lab: [facility] [address] WBC 5.36 4.0-11.0 RBC 4.28 L 4.6-6.2 [...] and tobacco- related health factors from the [facility] where the Encounter took place. Current Smoking Status This section includes the most current smoking, or tobacco-related health factor, from the [facility] where the Encounter took place. Date/Time Current Smoking Status Comment Thiago stephens May 05, 2023 04:00 PM VA-TOBACCO NEVER USED [facility] Tobacco Use History This section includes a history of the smoking, or tobacco-related health factors, that were collected on or before the date of the Encounter. The data comes from the [place] facility where the Encounter took place. Date/Time Smoking Status/Tobacco Use Comment F acility Apr 04, 2022 08:30 AM VA-TOBACCO NEVER USED [facility] May 15, 2021 10:00 AM VA-TOBACCO NEVER USED [facility] Oct 05, 2019 10:05 AM VA-TOBACCO NEVER USED [facility] Oct 20, 2018 12:28 PM INPT NO TOBACCO USE IN LAST 30 D AYS [facility] Sep 15, 2018 01:21 PM VA-TOBACCO NEVER USED [facility] Aug 11, 2017 08:54 AM LIFETIME NON-TOBACCO USER [facility] Jul 08, 2016 08:07 AM LIFETIME NON-TOBACCO USER [facility] May 09, 2015 02:31 PM LIFETIME NON-TOBACCO USER [facility] Apr 14, 2014 08:41 AM LIFETIME NON-TOBACCO USER [facility] Jan 06, 2007 08:51 AM LIFETIME NON-TOBACCO USER [facility] Pathology Reports: +/- 30 days of the [...] the Encounter. The data comes from all [facility] facilities. Date/Time Pathology Report Provider Source Oct 23, 2023 10:27 AM LR CYTOPATHOLOGY REPORT: LOCAL TITLE: LR CYTOPATHOLOGY REPORT STANDARD TITLE: PATHOLOGY REPORT DATE OF NOTE: OCT 23, 2023@10:27:01 ENTRY DATE: OCT 23, 2023@10:27:01 AUTHOR: HEIDI ZIMMERMAN EXP COSIGNER: URGENCY: STATUS: COMPLETED $APHDR Reporting Lab: [facility] [CLIA# [id number]] [place] [address] - - - - - - - [...] M.D. After review, slides are returned to: [facility] Division of Anatomic Pathology [address] [place], [address] Microscopic: Microscopic examination performed. BB Diagnosis: Review [...] 2023@10:27 Performing Laboratory: Cytology Report Performed By: [facility] [CLIA# [id number]] [place] [address] $FTR - - - - - - [...] - - RICKY CORONEL STANDARD FORM 515 ID:[id number] SEX:M :1945 AGE: 78 LOC:[facility] PCP: Annie Singh /mustapha/ HEIDI ZIMMERMAN MD STAFF PATHOLOGIST Signed: 10/23/2023 10:27 HEIDI ZIMMERMAN [facility] Encounter Notes: All associated encounter notes This section contains the clinical notes associated to the Encounter. Date/Time Encounter Note(s) Provider Source Oct 23, 2023 10:27 AM PATHOLOGY REPORT: LOCAL TITLE: LR CYTOPATHOLOGY REPORT STANDARD TITLE: PATHOLOGY REPORT DATE OF NOTE: OCT 23, 2023@10:27:01 ENTRY DATE: OCT 23, 2023@10:27:01 AUTHOR: HEIDI ZIMMERMAN EXP COSIGNER: URGENCY: STATUS: COMPLETED $APHDR Reporting Lab: [facility] [CLIA# [id number]] [place] [address] - - - - - - - [...] - - - POSTOPERATIVE DIAGNOSIS: Surgeon/physician: SHERIF HOWEDiego =-=-=-=-=-=-=-=-=-=-=-=-=-=-= -=-=-=-=-=-=-=-=-=-=-=-=-=-=- =-=-=-=-=-=-=-=-=-=-= - - - - [...] - Screened by: [facility] Description: Received a total of 1 stained slide and 9 unstained slides labeled with the accession number of [id number], Ricky Coronel (date of collection 09/15/2023), with the report signed out by Dr. Crissy Bowie M.D. After review, slides are returned to: [facility] Division of Anatomic Pathology [address] [place], [address] Microscopic: Microscopic examination performed. BB Diagnosis: Review [...] 2023@10:27 Performing Laboratory: Cytology Report Performed By: [facility] [CLIA# [id number]] [place] [address] $FTR - - - - - - [...] - - RICKY CORONEL STANDARD FORM 515 ID:[id number] SEX:M :1945 AGE: 78 LOC:[facility] PCP: Annie Singh /mustapha/ HEIDI ZIMMERMAN MD STAFF PATHOLOGIST Signed: 10/23/2023 10:27 HEIDI ZIMMERMAN [facility]
--- OUTSIDE RECORDS SUMMARY | 2023-10-25 20:18 | XMS_ITS | Encounter Summary ---
Author Name [facility] of [facility] Organization [facility] Address [address] [place] [address] Support Name Relationship Address Phone HOMER Arti COLEMAN Next of Kin [address] [address] ADITYA MALIN Emergency Contact [address] [place] [address] Insurance Providers: All historical and current Section [...] PART A May 15, 2009 PART A [id number] [phone] SHAYVERONICA RICKY PATIENT MEDICARE (WNR) MEDICARE (M) PART B May 15, 2009 PART B [id number] [phone] RICKY CORONEL PATIENT Selected Encounter This section includes the information on record at [place] for the Encounter. Date/Time Encounter Type Encounter Description Reason Pro vider Source Oct 20, 2023 08:48 AM Outpatient Encounter COMMUNITY CARE CONSULT IHE Encounter Template Text not used by [place] Plan of Treatment: Future Appointments (+ 6 months) and Future Tests (+/- 45 days) The Plan of Treatment section includes future care activities for the patient from all [place] treatmentfacilities. This section includes future appointments and future orders which are active, pending or scheduled. Future Appointments This section includes appointments that were scheduled to occur 6 months from the date of the Encounter, up to a maximum of 20 appointments. The data comes from all [place] treatment facilities. Appointment Date/Time Appointment Type Appointme nt Facility Name Nov 05, 2023 09:00 AM AMBULATORY - MEDICINE [facility] Dec 09, 2023 08:00 AM AMBULATORY - NONE [facility] Dec 09, 2023 09:00 AM AMBULATORY - MEDICINE [facility] Active, Pending, and Scheduled Orders This section includes a listing of several types of active, pending, and scheduled orders, including clinic medications orders, diagnostic test orders, procedure orders and consult orders; where the start date of the order is 45 days before the date of the Encounter or 45 days after the date of theEncounter. The data comes from all [place] treatment facilities. Test Date/Time Test Type Test Details Facility Name Oct 14, 2023 09:10 AM Consult Order COMMUNITY CARE-MEDICAL ONCOLOGY Cons [facility] Lab Results: +/- 30 days [...] Range Comment Oct 06, 2023 09:24 AM [facility] PT/INR(ANTICOAG) Specimen Type: PLASMA No comment entered. Ordering Provider: MIRA GARCIA Report Released Date/Time: Aug 27, 2023 09:50 AM Reporting Lab: [facility] [id number] Performing Lab: [facility] [id number] .INR 2.5 H 0.8-1.1 .PT 29.3 H 9.4-12.5 Oct 06, 2023 09:23 AM [facility] COMPREHENSIVE METABOLIC PANEL+MG Specimen Type: PLASMA Comment: Automated Differential Performed Ordering Provider: PRETTY GARCIA ND Report Released Date/Time: Aug 11, 2023 09:38 AM Reporting Lab: [facility] [id number] Performing Lab: [facility] [id number] CREATININE 0.9 0.7-1.2 UREA NITROGEN 17 8-26 GLUCOSE 118 H 70-100 SODIUM 140 136-145 POTASSIUM 4.0 3.5-5.1 CHLORIDE 107 98-107 CO2 26 22-29 CALCIUM 8.9 8.4-10.2 PROTEIN,TOTAL 6.4 6.0-8.3 ALBUMIN 3.8 3.5-5.2 BILIRUBIN, TOTAL 1.0 0.2-1.2 MAGNESIUM 2.0 1.6-2.6 ANION GAP 7 5-15 ALKALINE PHOSPHATASE 78 40-150 ALT/SGPT 20 <55 AST/SGOT 19 <34 .CREAT EGFR(CKD-EPI) 87 >60 Oct 06, 2023 09:23 AM [facility] CBC & DIFF Specimen Type: BLOOD Comment: Automated Differential Performed Ordering Provider: PRETTY GARCIA ND Report Released Date/Time: Aug 11, 2023 09:38 AM Reporting Lab: [facility] [id number] Performing Lab: [facility] [id number] WBC 5.36 4.0-11.0 RBC 4.28 L 4.6-6.2 [...] and tobacco- related health factors from the [place] facility where the Encounter took place. Current Smoking Status This section includes the most current smoking, or tobacco-related health factor, from the [place] facility where the Encounter took place. Date/Time Current Smoking Status Comment Facil kat May 05, 2023 04:00 PM VA-TOBACCO NEVER USED [facility] Tobacco Use History This section includes a history of the smoking, or tobacco-related health factors, that were collected on or before the date of the Encounter. The data comes from the [place] facility where the Encounter took place. Date/Time Smoking Status/Tobacco Use Comment F acility Apr 04, 2022 08:30 AM VA-TOBACCO NEVER USED [facility] May 15, 2021 10:00 AM VA-TOBACCO NEVER USED [facility] Oct 05, 2019 10:05 AM VA-TOBACCO NEVER USED [facility] Oct 20, 2018 12:28 PM INPT NO TOBACCO USE IN LAST 30 D AYS [facility] Sep 15, 2018 01:21 PM VA-TOBACCO NEVER USED [facility] Aug 11, 2017 08:54 AM LIFETIME NON-TOBACCO USER [facility] Jul 08, 2016 08:07 AM LIFETIME NON-TOBACCO USER [facility] May 09, 2015 02:31 PM LIFETIME NON-TOBACCO USER [facility] Apr 14, 2014 08:41 AM LIFETIME NON-TOBACCO USER [facility] Jan 06, 2007 08:51 AM LIFETIME NON-TOBACCO USER [facility] Pathology Reports: +/- 30 days of the [...] the Encounter. The data comes from all [facility] facilities. Date/Time Pathology Report Provider Source Oct 23, 2023 10:27 AM LR CYTOPATHOLOGY REPORT: LOCAL TITLE: LR CYTOPATHOLOGY REPORT STANDARD TITLE: PATHOLOGY REPORT DATE OF NOTE: OCT 23, 2023@10:27:01 ENTRY DATE: OCT 23, 2023@10:27:01 AUTHOR: HEIDI ZIMMERMAN EXP COSIGNER: URGENCY: STATUS: COMPLETED $APHDR Reporting Lab: [facility] [CLIA# [id number]] [place] [address] - - - - - - - [...] - - - - Screened [facility]: [facility] Description: Received a total of 1 stained slide and 9 unstained slides labeled with the accession number of [id number], Ricky Coronel (date of collection 09/15/2023), with the report signed out by Dr. Crissy Bowie M.D. After review, slides are returned to: [facility] Division of Anatomic Pathology [address] [place], [address] Microscopic: Microscopic examination performed. BB Diagnosis: Review [...] 2023@10:27 Performing Laboratory: Cytology Report Performed By: [facility] [CLIA# [id number]] [place] [address] $FTR - - - - - - [...] - - RICKY CORONEL STANDARD FORM 515 ID:[id number] SEX:M :1945 AGE: 78 LOC:[facility] PCP: Annie Singh /mustapha/ HEIDI ZIMMERMAN MD STAFF PATHOLOGIST Signed: 10/23/2023 10:27 HEIDI ZMIMERMAN [facility] Encounter Notes: All associated encounter notes This section contains the clinical notes associated to the Encounter. Date/Time Encounter Note(s) Provider Source Oct 20, 2023 08:48 AM NONVA NOTE: LOCAL TITLE: COMMUNITY CARE PRE-AUTH LETTER (AUTOPRINT) STANDARD TITLE: NONVA NOTE DATE OF NOTE: OCT 20, 2023@08:48 ENTRY DATE: OCT 20, 2023@08:48:27 AUTHOR: HEAD,CAMMIE RENTERIA COSIGNER: URGENCY: STATUS: COMPLETED Oct RICKY CORONEL [address], [place] [address] Dear RICKY CORONEL, Your VA provider has referred you to a provider within the community for care. Your medical care for Oncology has been authorized with the community care provider listed below. DO NOT REPORT TO THE [place] MEDICAL [facility] Provider info: Care has been approved for the following vendor: Office name, address, and phone number: [facility] [address] [address] Please contact the identified provider to schedule your community appointment. If you need assistance with this appointment, please call your facility community care office [facility] Office of Community Care at [phone] during the hours of 8:30AM - 3:00PM. Please follow up with your local [facility] community care office once this is scheduled. This step is needed to ensure your referral duration is maximized and the [place] has accurate referral information for billing purposes. Authorization Number: [id number] Referral Issue Date: 2023-10-19 Expiration Date: 2024-10-18 (subject to change based on first appointment) If you are unable to schedule this appointment or the appointment is no longer needed, please contact the community provider above for notification/rescheduling and then call the [facility] Office of Community Care at [phone] during the hours of 8:30AM - 3:00PM. If you need additional care/services not mentioned above or your authorization has and additional care is needed, please contact your primary care provider for a new referral. To review all care/service(s) approved under your referral, please go to the following link: [employer] [facility] Portal([employer] ) Co-Payments: If you are required to pay a VA co-payment, you will be billed by the [place] for each authorized visit that you attend. However, you are NOT REQUIRED to make co-payments to a community provider. Thank you for the opportunity to serve you. Sincerely, [place] Community Care (VACC) /mustapha/ CAMMIE RODRIGUEZ [employer] Signed: 10/20/2023 08:49 CAMMIE RODRIGUEZ [facility]
--- OUTSIDE RECORDS SUMMARY | 2023-10-25 20:19 | XMS_ITS | Encounter Summary ---
Author Name Unknown Organization [facility] Address [address] [place] [address] Care Team Providers Care Cart Driver Name Role Phone Unavailable Primary Care Provider Unavailabl e Reason for Visit * Reason Onset Date Comments Follow-up 09/16/2023 Post procedure f ollow up phone call Encounter Details Date Type Department Care Team ([facility] st Contact Info) Description 09/16/2023 Clinical Communication Department of Radiology, [facility] in [place], [place] [address] [place] [address] Kade Bennett M.D. [address] [place] [phone] Follow-up (Post procedure follow up phone call) [...] often do you attend chur ch or rastafari services? More than 4 times per year 09/29/2019 Do you belong to any clubs o r organizations such as sikh groups, unions, fraternal or athletic groups, or [...] and heating? Not hard at all 09/29/2019 [facility] [place] of Occupat ional Health - Occupational Stress [...] degree (e.g., MA, MS, Darrin, MEd, STEAM POWER PLANT OPERATOR, BERTHA) 09/29/2019 Sex and Gender Information Value Date Recorded Sex Assigned at Male 12/09/2022 3:56 PM CDT Gender Identity Male 02/23/2020 7:33 PM CDT Sexual Orientation Straight 02/23/2020 7: 33 PM CDT documented as of this encounter Miscellaneous Notes * Telephone Encounter - Jade Mendoza R.N. - 09/16/2023 11:02 AM ALCOHOL LAW ENFORCEMENT AGENT Information Discussed Post procedure phone call information. [...] following references were used: nursing clinical judgement HOL LAW ENFORCEMENT AGENT documented in this encounter Plan of Treatment Upcoming Encounters Date Type Department Care Team (Latest Contact Info) Description 12/22/2023 9:15 AM CDT Clinical Communication Virtual Review in [place], [place] [address] [place] [address] 12/23/2023 1:00 PM CDT Appointment Department of Laboratory Medicine and Pathology, [facility], in [address] [phone] Gwendolyn Rao M.D. [address] [place] [address] 12/23/2023 1:45 PM CDT Appointment Department of Radiology, [facility] in [place], [place] [address] [place] [address] Gwendolyn Rao M.D. [address] [place] [phone] 12/24/2023 9:00 AM CDT Appointment Department of Radiology, [facility] in [place], [place] [address] [place] [address] Gwendolyn Rao M.D. [address] [place] [phone] 12/24/2023 11:15 AM CDT Office Visit Division of Hematology in [place], [place] [address] [place] [address] Maureen Michelle M.D. [address] [place] [phone] documented as of this encounter Visit Diagnoses Not on filedocumented in this encounter Care Teams Cart Driver Relationship Specialty Start Date End Date [facility] [address] [place] [address] 05/22/21 documented as of this encounter
--- OUTSIDE RECORDS SUMMARY | 2023-10-25 20:19 | XMS_ITS | Encounter Summary ---
Author Name Unknown Organization [facility] Address [address] [place] [address] Care Team Providers Care Territory Business Manager Name Role Phone Unavailable Primary Care Provider Unavailabl e Reason for Visit * Outpatient (Routine) - Canceled Specialty Diagnoses / Procedures Referred By Gayle walsh Referred To Contact Diagnoses Carcinoid Tumor Malignant (HCC) Procedures US Liver Biopsy CT Biopsy Other Gwendolyn Rao M.D. [address] [place] [phone] [facility] Referral ID Status Reason Start Date Expiration Date V isits Requested Visits Authorized [id number] Canceled 09/09/2023 09/08/2024 1 1 Encounter Details Date Type Department Care Team (Latest Contact Info) Description 09/15/2023 9:40 AM P[employer]ER DRI[employer] BEEF - 09/15/2023 2:36 PM P[facility] [employer]RI[employer] [facility] Hospital Encounter Outpatient Surgery Unit in [place], [place] [address] [place] [phone] Gwendolyn Rao M.D. [address] [place] [phone] Jacinda Ramsay APRN, C.N.P., D.N.P. [address] [place] [phone] Carcinoid Tumor Malignant (HCC) Discharge Disposition: Home [...] How often do you attend chur or mandaen services? More than 4 times per year 09/29/2019 Do you belong to any clubs o r organizations such as bahai groups, unions, fraternal [...] and heating? Not hard at all 09/29/2019 [facility] of Occupat ional Health - Occupational [...] Master's degree (e.g., MA, MS, Darrin, MEd, SKIDDER RUNNER, BERTHA) 09/29/2019 Sex and Gender Information Value Date Recorded Sex Assigned at Male 12/09/2022 3:56 PM CDT Gender Identity Male 02/23/2020 7:33 PM CDT Sexual Orientation Straight 02/23/2020 7: 33 PM CDT documented as of this encounter Last Filed Vital Signs Vital Sign Reading Time Taken Comments Blood Pressure 134/87 09/15/2023 1:15 PM PACKER DRIED BEEF Pulse 81 09/15/2023 12:35 PM PACKER DRIED BEEF Temperature 37.4 ??C (99.3 ??F) 09/15/2023 12:[address] Respiratory Rate 18 09/15/2023 12:49 PM PACKER DRIED BEEF Oxygen Saturation 100% 09/15/2023 12:49 PM PACKER DRIED BEEF Inhaled Oxygen Concentration - - Weight - [...] AM CDT Clinical Communication Virtual Review in [place], [place] [address] [place] [address] 12/23/2023 1:00 PM CDT Appointment Department of Laboratory Medicine and Pathology, [facility] in [address] [phone] Gwendolyn Rao M.D. [address] [place] [phone] 12/23/2023 1:45 PM CDT Appointment Department of Radiology, [facility] in [address] [phone] Gwendolyn Rao M.D. [address] [place] [phone] 12/24/2023 9:00 AM CDT Appointment Department of Radiology, [facility] in [place], [place] [address] [place] [phone] Gwendolyn Rao M.D. [address] [place] [phone] 12/24/2023 11:15 AM CDT Office Visit Division of Hematology in [address] [phone] Maureen Michelle M.D. [address] [place] [phone] Scheduled Orders Name Type Priority Associated Diagnoses Orde r Schedule US Liver Biopsy Imaging RAD - Routine (m ost inpatients and all outpatients) Carcinoid Tumor Malignant (HCC) Once for 1 Occurrences starting 09/15/2023 until 09/15/2023 documented as of this encounter Procedures Procedure Name Priority Date/Time Associated Diagnosis Comments PROTHROMBIN TIME (PT), P STAT 09/15/2023 1:00 PM PACK[employer] BEEF US LIVER BIOPSY RAD - Routine (most inpatients and all outpatients) 09/15/2023 12:16 PM PACKER DRI[employer] BEEF Carcinoid Tumor Malignant (HCC) CYTOLOGY FINE NEEDLE ASPIRATION (INCLUDES CORE BIOPSIES Timed 09/15/2023 11:55 AM PACK[employer] DRI[employer] BEEF Carcinoid Tumor Malignant (HCC) INR, POCT, B Routine 09/15/2023 11:06 AM [employer] BEEF ADULT OXYGEN THERAPY Routine 09/15/2023 11:01 AM PACKER DRI[employer] BEEF documented in this encounter Results * Prothrombin Time (PT) (09/15/2023 1:00 PM PACKER DRIED BEEF) Prothrombin Time, P 12.5 9.4 - 12.5 sec 09/15/2023 1:12 PM PACKER DRI[employer] BEEF METH INR 1.1 0.9 - 1.1 09/15/2023 1:12 PM [employer]EE[employer] METH Comment: ----ADDITIONAL INFORMATION---- Standard intensity warfarin therapeutic range: 2.0 to 3.0 ?? High intensity warfarin therapeutic range: 2.5 to 3.5 Blood (Blood, Venous) 09/15/2023 1:00 PM P[employer] BEEF 09/15/2023 1:04 PM PACK[employer] DRI[employer] BEEF Kade Bennett M.D. LAB BLOOD ADD-O N [facility] [address] [place] [address], [facility] METH [facility] [address] [place] [address] * US Liver Biopsy (09/15/2023 12:16 PM PACKER DRIED BEEF) Anatomical Region Laterality Modality Abdomen, Ultrasound RST LOS, Ultrasound ARZ LOS, Procedure FLA LOS, Abdominal FLA LOS, Procedural, Procedural NWWI LOS N/A Ultrasound Impressions 09/15/2023 12:34 PM PACKER DRI[employer] BEEF Ultrasound-guided liver mass biopsy. EP Narrative 09/15/2023 12:34 PM PACKER DRI[employer] BEEF EXAM: US LIVER BIOPSY PRE-PROCEDURE: Patient seen, [...] liver mass biopsy. EP Gwendolyn Rao M.D. [facility] US PROCEDURES * (ABNORMAL) Cytology Fine Needle Aspiration (including core biopsies) (09/15/2023 11:55 AM PACKER DRI[employer] BEEF) (A) 09/18/2023 4:29 PM PACKER [employer] BEEF DTL Disclaimer This test was developed and its performance characteristics determined by [facility] in a manner consistent with CLIA requirements. This test has not been cleared or approved by the U.S. Food and Drug Administration. (A) 09/18/2023 4:29 PM [employer] DTL Participated in the Interpretation Valerie Bauman M.D., Ph.D. -Pathology Resident(A) 09/18/2023 4:29 PM P[employer] BEEF DTL Report electronically signed by Crissy Bowie M.D. I verify that I have examined all relevant slides/materials for the specimen(s) and rendered or confirmed the diagnosis. Seen in consultation with: Thierno Sevilla M.D., Ph.D. (A) 09/18/2023 4:29 PM PACK[employer] BEEF DTL Gross Description Received 4 alcohol-fixed smears and tissue. Additionally, received in formalin labeled with the patient's name, medical record number, and liver mass are four [id number] softtissue cores and six fragments, 0.1 cm in average diameter and ranging from 0.1-1.5 cm in length. Specimens are submitted en toto incassettes A1, three cores and A2, one core and six fragments. ??Grossed by AJB. (A) 09/18/2023 4:29 PM PACKER DRI[employer] BEEF DTL Source A. Liver, Mass, fine needle aspiration(A) 09/18/2023 4:29 PM PACKER DRI[employer] BEEF DTL Interpretation A. Liver, Mass, fine needle [...] stained slides are scanned using the Leica Luxodo450 digital scanner. The captured digital image is analyzed using a validated AI (Artificial Intelligence) algorithm by [employer] (r) ??that calculates the percentage of positive staining tumor nuclei. The [employer] (r) ??data and corresponding slide are reviewed by a pathologist for final interpretation. This test was developed and its performance characteristics determined by [facility] in a manner consistent with CLIA requirements. This test has not been cleared or approved by the U.S. Food and Drug Administration. Ki-67 interpreted by: ??Shahla Jack, Ph.D.(A) 09/18/2023 4:29 PM PACKER DRI[employer] BEEF DTL Tissue (Liver) 09/15/2023 11 :55 AM P[employer] DRIED BEEF Gwendolyn Rao M.D. LAB SURG PATH ORDERA BLES Performing Organization Address [facility] Co de Phone Number [facility] 200 [place], [place] [phone] [place] [address] DTL 200 [facility] 200 [place] [address] * INR, POCT (09/15/2023 11:06 AM PACKER DRIED BEEF) INR, POCT, B 1.1 09/15/2023 4:30 PM P[employer] BEEF PCMO Comment: ----ADDITIONAL INFORMATION---- Standard intensity warfarin therapeutic range: 2.0 to 3.0 ?? High intensity warfarin therapeutic range: 2.5 to 3.5 Blood 09/15/2023 11:0 6 AM PACKER DRIED BEEF 09/15/2023 4:30 PM P[employer] D[employer] BEEF Unknown Provider LAB POCT ORDERABLES - DEVICE Performing Organization Address [facility] Co de Phone Number [facility] [address] [place], [place] [address] PCMO [facility] POC 200 [place] [address] documented in this encounter Visit Diagnoses Diagnosis [...] hours, Intraprocedure (RAD) Given 09/15/2023 12:06 PM PACKER DRIED BEEF 25 mcg Lactated Ringer's 20 mL/hr, intravenous, Once as needed, to keep vein open, Starting on Thu09/15/23 at 1100, For 1 dose, Intraprocedure (RAD) New Bag 09/15/2023 11:48 AM PACKER DRI[employer] BEEF 20 mL/hr 20 mL/hr lidocaine 10 mg/mL (1 %) injection (XYLOCAINE) As needed, Starting on Thu09/15/23 at 1208, Intra-Op Given 09/15/2023 12:08 PM PACKER DRI[employer] BEEF 6 mL Abdominal Tissue midazolam (PF) injection 0.5 mg (VERSED) 0.5 mg, intravenous, Every 2 min PRN, sedation, RASS -1, Starting on Thu09/15/23 at 1100, For 3 hours, Intraprocedure (RAD), May repeat every 2 minutes for a maximum of 5 mg. Do not give if respiratory rate is less than 8 breaths/minute. Given 09/15/2023 12:07 PM PACKER DRIED BEEF 0.5 mg documented in this encounter Active and Recently Administered Medications Times are shown in PACK[employer] D[employer] BEEF. PRN Medication Order 09/13/2023 09/14/2023 09/15/2023 [id number] [...] R.N.) documented in this encounter Care Teams Territory Business Manager Relationship Specialty Start Date End Date [place] [address] 05/22/21 documented as of this encounter
--- OUTSIDE RECORDS SUMMARY | 2023-10-25 20:19 | XMS_ITS | Referral Summary ---
Author Name Unknown Organization [facility] Address [address] [place] [address] Care Team Providers Care Transit Driver Name Role Phone Unavailable Primary Care Provider Unavailabl e Source Comments Patient records contain information from all sites at [facility]. For routine questions regarding patient records, call [phone] during business hours, M-F 8:00 AM - 5:00 PM Central Time. Record requests for emergency care only can be directed to [phone] at any time.[facility] Encounters Date Type Department Care Team Description 09/24/2023 11:45 AM MOBILE PET GROOMER Telemedicine Department of Oncology in [place], [place] [address] [place] [address] Gwendolyn Rao M.D. Carcinoid Tumor Malignant (HCC) (Primary Dx) 09/21/2023 Orders Only Department of Oncology in [place], [place] [address] [place] [phone] Gwendolyn Rao M.D. 09/16/2023 Clinical Communication Department of Radiology, [facility], in [place], [place] [address] [place] [phone] Kade Bennett M.D. Follow-up (Post procedure follow up phone call) 09/15/2023 9:40 AM MOBILE PET GROOMER - 09/15/2023 2:36 PM MOBILE PET GROOMER Hospital Encounter Outpatient Surgery Unit in [place], [place] [address] [place] [address] Gwendolyn Rao M.D. Hill, Jennifer M, APRN, C.N.P., D.N.P. Carcinoid Tumor Malignant (HCC) Discharge Disposition: Home or Self Care 09/10/2023 Clinical Communication Department of Oncology in [place], [place] [address] [place] [phone] Elly Yi R.N. 09/09/2023 3:30 PM MOBILE PET GROOMER Office Visit Department of Oncology in [place], [place] [address] [place] [phone] Maureen Michelle M.D. Li, Marissa M, M.D. Carcinoid Tumor Malignant (HCC) (Primary Dx) 09/09/2023 10:15 AM MOBILE PET GROOMER - 09/09/2023 11:59 PM MOBILE PET GROOMER Hospital Encounter Department of Radiology, [facility] in [place], [place] [address] [place] [phone] Maureen Michelle M.D. Carcinoid Tumor Malignant (HCC); Personal History Of Malignant Neoplasm Of Prostate Discharge Disposition: Home or Self Care 09/04/2023 8:30 AM MOBILE PET GROOMER Clinical Communication Virtual Review in [place], [place] 200 [place] [address] Blood Pressure from Last 3 Months Allergies [...] EVERY DAY USE REGULARLY FOR RELIEF OF ALLERGIES/CONGESTI ON 0 04/04/2022 Active vitamin A 2,400 mcg (8,000 Unit) capsule Take 2,400 mcg by mouth daily. A couple days a week 0 Active simethicone (MYLICON) 80 mg chewable tablet Chew 80 mg 3 (three) times a day as needed for flatulence. 0 05/05/2023 05/05/2024 Active Active Problems Problem Noted Date Diagnosed [...] week 09/29/2019 How often do you attend [facility] or zoroastrian services? More than 4 times per year [...] and heating? Not hard at all 09/29/2019 [facility] - Occupational Stress Questionnaire Answer Date [...] Master's degree (e.g., MA, MS, Darrin, MEd, AUDIO SPECIALIST, BERTHA) 09/29/2019 Sex and Gender Information Value Date Recorded Sex Assigned at Male 12/09/2022 3:56 PM CDT Gender Identity Male 02/23/2020 7:33 PM CDT Sexual Orientation Straight 02/23/2020 7: 33 PM CDT Last Filed Vital Signs Vital Sign Reading Time Taken Comments Blood Pressure 134/87 09/15/2023 1:15 PM MOBILE PET GROOMER Pulse 81 09/15/2023 12:35 PM MOBILE PET GROOMER Temperature 37.4 ??C (99.3 ??F) 09/15/2023 12:[address] Respiratory Rate 18 09/15/2023 12:49 PM MOBILE PET GROOMER Oxygen Saturation 100% 09/15/2023 12:49 PM MOBILE PET GROOMER Inhaled Oxygen Concentration - - Weight 98 kg (216 lb 0.8 oz) 09/09/2023 3:22 PM MOBILE PET GROOMER Height 177.1 cm (5' 9.72) 09/09/2023 3:22 PM CS T Body Mass Index 31.25 09/09/2023 3:22 PM MOBILE PET GROOMER Plan of Treatment Upcoming Encounters Date Type Department Care Team (Latest Contact Info) Description 12/22/2023 9:15 AM CDT Clinical Communication Virtual Review in [place], [place] 200 [place] [address] 12/23/2023 1:00 PM CDT Appointment Department of Laboratory Medicine and Pathology, [place], [place] [address] [place] [phone] Gwendolyn Rao M.D. [address] [place] [phone] 12/23/2023 1:45 PM CDT Appointment Department of Radiology, [place], [place] [address] [place] [phone] Gwendolyn Rao M.D. [address] [place] [phone] 12/24/2023 9:00 AM CDT Appointment Department of Radiology, [facility] in [place], [place] [address] [place] [phone] Gwendolyn Rao M.D. [address] [place] [phone] 12/24/2023 11:15 AM CDT Office Visit Division of Hematology in [place], [place] [address] [place] [address] Maureen Michelle M.D. [address] [place] [phone] Medical Devices Implanted Type Area Cytopathologist Device Identifier Shelf Expiration Date Model / Serial / Lot Hardware E.G. Pins/Screws/R ods Hardware e.g. pins/screws/ rods Right: Shoulder Knee Implant Knee Implant Knee Description:Both knees repla sandip Procedures Procedure Name Priority Date/Time Associated Diagnosis Comments PROTHROMBIN TIME (PT), P STAT 09/15/2023 1:00 PM MOBILE PET GROOMER US LIVER BIOPSY RAD - Routine (most inpatients and all outpatients) 09/15/2023 12:16 PM MOBILE PET GROOMER Carcinoid Tumor Malignant (HCC) CYTOLOGY FINE NEEDLE ASPIRATION (INCLUDES CORE BIOPSIES Timed 09/15/2023 11:55 AM MOBILE PET GROOMER Carcinoid Tumor Malignant (HCC) INR, POCT, B Routine 09/15/2023 11:06 AM MOBILE PET GROOMER ADULT OXYGEN THERAPY Routine 09/15/2023 11:01 AM MOBILE PET GROOMER COMPREHENSIVE METABOLIC PANEL, S/P Routine 09/09/2023 1:45 PM MOBILE PET GROOMER 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 CBC WITH DIFFERENTIAL, B Routine 09/09/2023 1:45 PM MOBILE PET GROOMER 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 PET MR ABDOMEN FOCUSED WITHOUT AND WITH IV CONTRAST RAD - Routine (most inpatients and all outpatients) 09/09/2023 1:40 PM MOBILE PET GROOMER 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 PET MR TRUNK SURVEY DOTATATE RAD - Routine (most inpatients and all outpatients) 09/09/2023 1:40 PM MOBILE PET GROOMER 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 High intensity warfarin therapeutic range: 2.5 to 3.5 Blood (Blood, Venous) 09/15/2023 1:00 PM MOBILE PET GROOMER 09/15/2023 1:04 PM MOBILE PET GROOMER Kade Bennett M.D. LAB BLOOD ADD-O N [facility] [address] [place] [address], [facility] METH [facility] 200 [place] [address] * US Liver Biopsy (09/15/2023 12:16 PM MOBILE PET GROOMER) Anatomical Region Laterality Modality Abdomen, Ultrasound RST LOS, Ultrasound ARZ LOS, Procedure FLA LOS, Abdominal FLA LOS, Procedural, Procedural NWWI LOS N/A Ultrasound Impressions 09/15/2023 12:34 PM MOBILE PET GROOMER Ultrasound-guided liver mass biopsy. EP Narrative 09/15/2023 12:34 PM MOBILE PET GROOMER EXAM: US LIVER BIOPSY PRE-PROCEDURE: Patient seen, [...] Aspiration (including core biopsies) (09/15/2023 11:55 AM MOBILE PET GROOMER) (A) 09/18/2023 4:29 PM MOBILE PET GROOMER DTL Disclaimer This test was developed and its performance characteristics determined by [facility] in a manner consistent with CLIA requirements. This test has not been cleared or approved by the U.S. Food and Drug Administration. (A) 09/18/2023 4:29 PM MOBILE PET GROOMER DTL Participated in the Interpretation Valerie Bauman M.D., Ph.D. -Pathology Resident(A) 09/18/2023 4:29 PM MOBILE PET GROOMER DTL Report electronically signed by Crissy Bowie M.D. I verify that I have examined all relevant slides/materials for the specimen(s) and rendered or confirmed the diagnosis. Seen in consultation with: Thierno Sevilla M.D., Ph.D. (A) 09/18/2023 4:29 PM MOBILE PET GROOMER DTL Gross Description Received 4 alcohol-fixed smears and tissue. Additionally, received in formalin labeled with the patient's name, medical record number, and liver mass are four [id number] softtissue cores and six fragments, 0.1 cm in average diameter and ranging from 0.1-1.5 cm in length. Specimens are submitted en toto incassettes A1, three cores and A2, one core and six fragments. ??Grossed by AJB. (A) 09/18/2023 4:29 PM MOBILE PET GROOMER DTL Source A. Liver, Mass, fine needle aspiration(A) 09/18/2023 4:29 PM MOBILE PET GROOMER DTL Interpretation A. Liver, Mass, fine needle [...] stained slides are scanned using the Leica Limin [id number] digital scanner. The captured digital image is analyzed using a validated AI (Artificial Intelligence) algorithm by Aifblair (r) ??that calculates the percentage of positive staining tumor nuclei. The Aiforia (r) ??data and corresponding slide are reviewed by a pathologist for final interpretation. This test was developed and its performance characteristics determined by [facility] in a manner consistent with CLIA requirements. This test has not been cleared or approved by the U.S. Food and Drug Administration. Ki-[id number] interpreted by: ??Isaias JackS., Ph.D.(A) 09/18/2023 4:29 PM MOBILE PET GROOMER DTL Tissue (Liver) 09/15/2023 11 :55 AM MOBILE PET GROOMER Gwendolyn Rao M.D. LAB SURG PATH [place] [address] [place], [place] [address] DTL 200 [facility] 200 [place] [address] * INR, POCT (09/15/2023 11:06 AM MOBILE PET GROOMER) [facility] INR, POCT, B 1.1 09/15/2023 4:30 PM MOBILE PET GROOMER PCMO Comment: ----ADDITIONAL INFORMATION---- Standard intensity warfarin therapeutic range: 2.0 to 3.0 ?? High intensity warfarin therapeutic range: 2.5 to 3.5 Blood 09/15/2023 11:0 6 AM MOBILE PET GROOMER 09/15/2023 4:30 PM MOBILE PET GROOMER Unknown Provider LAB POCT ORDERABLES - DEVICE POC [facility] 200 [place] [address], [facility] 200 [place] [address] * (ABNORMAL) CBC with Differential, Blood (09/09/2023 1:45 PM MOBILE PET GROOMER) [facility] Hemoglobin 15.0 13.2 - 16.6 g/dL 09/09/2023 2:27 PM MOBILE PET GROOMER DTL Hematocrit 43.4 38.3 - 48.6 % 09/09/2023 2:27 PM MOBILE PET GROOMER DTL Erythrocytes 4.40 4.35 - 5.65 x10(12)/L 09/09/2023 2:27 PM MOBILE PET GROOMER DTL MCV 98.6(H) 78.2 - 97.9 fL 09/09/2023 2:27 PM MOBILE PET GROOMER DTL RBC Distrib Width 12.5 11.8 - 14.5 % 09/09/2023 2:27 PM MOBILE PET GROOMER DTL Platelet Count 211 135 - 317 x10(9)/L 09/09/2023 2:27 PM MOBILE PET GROOMER DTL Leukocytes 3.7 3.4 - 9.6 x10(9)/L 09/09/2023 2:27 PM MOBILE PET GROOMER DTL Neutrophils 1.62 1.56 - 6.45 x10(9)/L 09/09/2023 2:27 PM MOBILE PET GROOMER DHPM Lymphocytes 1.34 0.95 - 3.07 x10(9)/L 09/09/2023 2:27 PM MOBILE PET GROOMER DTL Monocytes 0.50 0.26 - 0.81 x10(9)/L 09/09/2023 2:27 PM MOBILE PET GROOMER DTL Eosinophils 0.18 0.03 - 0.48 x10(9)/L 09/09/2023 2:27 PM MOBILE PET GROOMER DTL Basophils <0.03 0.01 - 0.08 x10(9)/L 09/09/2023 2:27 PM MOBILE PET GROOMER DTL Blood (Blood, Venous) 09/09/2023 1:45 PM MOBILE PET GROOMER 09/09/2023 2:17 PM MOBILE PET GROOMER Maureen Michelle M.D. LAB BLOOD ADD-ON [facility] 200 [place] [address], [place] DTL [facility] 200 [place] [address] [facility] 200 [place] [address] * Comprehensive Metabolic Panel (09/09/2023 1:45 PM MOBILE PET GROOMER) Pathologist [facility] Potassium, S 4.6 3.6 - 5.2 mmol/L 09/09/2023 2:47 PM MOBILE PET GROOMER DTL Sodium, S 143 135 - 145 mmol/L 09/09/2023 2:47 PM MOBILE PET GROOMER DTL Chloride, S 104 98 - 107 mmol/L 09/09/2023 2:47 PM MOBILE PET GROOMER DTL Bicarbonate, S 27 22 - 29 mmol/L 09/09/2023 2:47 PM MOBILE PET GROOMER DTL Anion Gap 12 7 - 15 09/09/2023 2:47 PM MOBILE PET GROOMER DTL BUN (Blood Urea Nitrogen), S 13 8 - 24 mg/dL 09/09/2023 2:47 PM MOBILE PET GROOMER DTL Creatinine 1.10 0.74 - 1.35 mg/dL 09/09/2023 2:47 PM MOBILE PET GROOMER DTL Estimated GFR (eGFR) 68 >=60 mL/min/BS A 09/09/2023 2:47 PM MOBILE PET GROOMER DTL Comment: Estimated GFR calculated using the 2020 CKD_EPI creatinine equation. Calcium, Total, S 9.1 8.8 - 10.2 mg/dL 09/09/2023 2:47 PM MOBILE PET GROOMER DTL Glucose, S 101 70 - 140 mg/dL 09/09/2023 2:47 PM MOBILE PET GROOMER DTL Protein, Total, S 6.6 6.3 - 7.9 g/dL 09/09/2023 2:47 PM MOBILE PET GROOMER DTL Albumin, S 4.1 3.5 - 5.0 g/dL 09/09/2023 2:47 PM MOBILE PET GROOMER DTL Aspartate Aminotransferase (AST), S 36 8 - 48 U/L 09/09/2023 2:47 PM MOBILE PET GROOMER DTL Alkaline Phosphatase, S 82 40 - 129 U/L 09/09/2023 2:47 PM MOBILE PET GROOMER DTL Alanine Aminotransferase (ALT), S 31 7 - 55 U/L 09/09/2023 2:47 PM MOBILE PET GROOMER DTL Bilirubin, Total, S 0.8 0.0 - 1.2 mg/dL 09/09/2023 2:47 PM MOBILE PET GROOMER DTL Blood (Blood, Venous) 09/09/2023 1:45 PM MOBILE PET GROOMER 09/09/2023 2:27 PM MOBILE PET GROOMER Maureen Michelle M.D. LAB BLOOD ADD-ON [facility] [address] [place] [address], [facility] DTL [facility] [address] [place] [address] * PET MR Skull to Thigh Survey DOTATATE (09/09/2023 1:40 PM MOBILE PET GROOMER) Anatomical Region Laterality Modality Body, Nuclear Medicine PET R ST LOS, PET ARZ LOS, Nuclear Medicine PET FLA LOS, Nuclear Medicine N/A Positron Emission Tomography (PET), Magnetic Resonance Impressions 09/09/2023 2:26 PM MOBILE PET GROOMER 1. Interval progression since the prior DOTATATE [...] Krenning score: 4 Narrative 09/09/2023 2:26 PM MOBILE PET GROOMER EXAM: PET MR SKULL TO THIGH SURVEY DOTATATE RADIOPHARMACEUTICAL/MEDS: Route: intravenous gallium Ga 68 dotatate injection (Ga-68 [place]),5.25 millicurie TECHNIQUE: Ga-68 DOTATATE PET/MRI scan was [...] have an SUV max of 17.9 (whole-body ). Interval increase in tracer avid tumor burden [...] avid foci in the small bowel (whole-body [id number]), suspicious for primary small bowel lesions. [...] metastases. Krenning score: 4 Maureen Michelle M.D. [facility] [place] PROCEDURES * PET MR Abdomen Focused Without and With IV Contrast (09/09/2023 1:40 PM MOBILE PET GROOMER) Anatomical Region Laterality Modality Abdomen, Abdominal RST LOS, PET ARZ LOS, Abdominal ARZ LOS, Abdominal FLA LOS N/A Positron Emission Tomography (PET), Magnetic Resonance Impressions 09/09/2023 2:36 PM MOBILE PET GROOMER Slight interval enlargement of hepatic, peritoneal, and osseous metastases and stable lymphadenopathy. Narrative 09/09/2023 2:36 PM MOBILE PET GROOMER EXAM: ??PET MR ABDOMEN FOCUSED WITHOUT AND [...] PROCEDURES * Creatinine, POCT (09/09/2023 10:57 AM MOBILE PET GROOMER) Only the most recent of2 resultswithin the time period is included. Creatinine, POCT, B 1.1 0.7 - 1.4 mg/dL 09/09/2023 10:59 AM MOBILE PET GROOMER PCDT Comment: ----ADDITIONAL INFORMATION---- Performed at the Point of Care Blood 09/09/2023 10:5 7 AM MOBILE PET GROOMER 09/09/2023 10:59 AM MOBILE PET GROOMER Unknown Provider LAB POCT ORDERABLES - DEVICE POC [facility] [address] [place] [address], [facility] PCDT [facility] POC [address] [place] [address] from Last 3 Months Care Teams Transit Driver Relationship Specialty Start Date End Date [facility] [place] [address] 05/22/21
--- OUTSIDE RECORDS SUMMARY | 2023-10-25 20:19 | XMS_ITS ---
Author Name Unknown Organization [facility] Address [address] [place] [address] Care Team Providers Care Heel Pricker Name Role Phone Unavailable Unavailable Unavailable Surgery Details Not on file Complications Check Surgery Details section. Procedure Estimated Blood Loss Check Surgery Details section. Procedure Findings Check Surgery Details section. Procedure Specimens Taken Check Surgery Details section.
--- OUTSIDE RECORDS SUMMARY | 2023-10-25 20:19 | XMS_ITS | Encounter Summary ---
Author Name Unknown Organization [facility] Address [address] [place] [address] Care Team Providers Care Vice Provost Name Role Phone Unavailable Primary Care Provider Unavailabl e Reason for Referral * MRI/CAT/PET Scan (Routine) - Authorized Specialty Diagnoses / Procedures Referred By Contac t Referred To Contact Radiology Diagnoses Carcinoid Tumor Malignant (HCC) Procedures MR Abdomen without and with IV Contrast Gwendolyn Rao M.D. 200 [place] [address] [facility] Referral ID Status Reason Start Date Expiration Date V isits Requested Visits Authorized [id number] Authorized 09/24/2023 09/23/2024 1 1 ETIST * MRI/CAT/PET Scan (Routine) - Authorized Specialty Diagnoses / Procedures Referred By Contac t Referred To Contact Radiology Diagnoses Carcinoid Tumor Malignant (HCC) Procedures CT Chest with IV Contrast Gwendolyn Rao M.D. 200 [place] [address] [facility] Referral ID Status Reason Start Date Expiration Date V isits Requested Visits Authorized [id number] Authorized 09/24/2023 09/23/2024 1 1 ETIST * Outpatient (Routine) - Authorized Specialty Diagnoses / Procedures Referred By Contac t Referred To Contact Oncology Gwendolyn Rao M.D. 200 [place] [address] [facility] Referral ID Status Reason Start Date Expiration Date V isits Requested Visits Authorized [id number] Authorized 09/24/2023 09/23/2026 [address] Chanda Michelle (previously Audil) - if she is not available with [facility] ETIST Reason for Visit * Outpatient (Routine) - Closed Specialty Diagnoses / Procedures Referred By Contac t Referred To Contact Oncology Gwendolyn Rao M.D. [address] [place] [address] [facility] Referral ID Status Reason Start Date Expiration Date Visits Re quested Visits Authorized [id number] Closed 09/21/2023 09/20/2026 1 1 Encounter Details Date Type Department Care Team (Late st Contact Info) Description 09/24/2023 11:45 AM CORNETIST Telemedicine Department of Oncology in [place], [place] [address] [place] [address] Gwendolyn Rao M.D. [address] [place] [phone] Carcinoid Tumor Malignant (HCC) (Primary Dx) Social [...] How often do you attend chur or catholic services? More than 4 times per year [...] and heating? Not hard at all 09/29/2019 [facility] Occupat ional Health - Occupational Stress [...] degree (e.g., MA, MS, Darrin, MEd, SENIOR CONTRACTS MANAGER, BERTHA) 09/29/2019 Sex and Gender Information [...] Comprehensive Metabolic Panel Oncology office visit (clinic) ETIST documented in this encounter Plan of Treatment Upcoming Encounters Date Type Department Care Team (Latest Contact Info) Description 12/22/2023 9:15 AM CDT Clinical Communication Virtual Review in [place] [address] [place] [address] 12/23/2023 1:00 PM CDT Appointment Department of Laboratory Medicine and Pathology, [facility] in [place], [place] [address] [place] [address] Gwendolyn Rao M.D. [address] [place] [phone] 12/23/2023 1:45 PM CDT Appointment Department of Radiology, [facility] in [place], [place] [address] [place] [address] Gwenodlyn Rao M.D. [address] [place] [phone] 12/24/2023 9:00 AM CDT [facility] [place] [place] [address] [place] [address] Gwendolyn Rao M.D. [address] [place] [phone] 12/24/2023 11:15 AM CDT Office Visit Division of Hematology in [place], [place] [address] [place] [phone] Maureen Michelle M.D. [address] [place] [phone] Scheduled Orders Name Type Priority Associated Diagnoses [...] Primary documented in this encounter Care Teams Vice Provost Relationship Specialty Start Date End Date [facility] [place] [address] 05/22/21 documented as of this encounter
--- OUTSIDE RECORDS SUMMARY | 2023-10-25 20:19 | XMS_ITS | Encounter Summary ---
Author Name Unknown Organization [facility] Address [address] [place] [address] Care Team Providers Care Threading Machine Tender Name Role Phone Unavailable Primary Care Provider Unavailabl e Encounter Details Date Type Department Care Team (Late st Contact Info) Description 09/10/2023 Clinical Communication Department of Oncology in [place], [place] [address] [place] [phone] Elly Yi, RMarcianoN. [address] [place] [address] Social History Tobacco Use Types Packs/Day Years [...] often do you attend chur ch or baptism services? More than 4 times per year 09/29/2019 Do you belong to any clubs o r organizations such as mormon groups, unions, fraternal or athletic groups, or [...] and heating? Not hard at all 09/29/2019 [facility] Occupat ional Health - Occupational [...] Master's degree (e.g., MA, MS, Darrin, MEd, POWDER HAND, BERTHA) 09/29/2019 Sex and Gender Information Value Date Recorded Sex Assigned at Male 12/09/2022 3:56 PM CDT Gender Identity Male 02/23/2020 7:33 PM CDT Sexual Orientation Straight 02/23/2020 7: 33 PM CDT documented as of this encounter Plan of Treatment Upcoming Encounters Date Type Department Care Team (Latest Contact Info) Description 12/22/2023 9:15 AM CDT Clinical Communication Virtual Review in [place], [place] 200 [place] [address] 12/23/2023 1:00 PM CDT Appointment Department of Laboratory Medicine and Pathology, [facility] in [place], [place] [address] [place] [phone] Gwendolyn Rao M.D. [address] [place] [phone] 12/23/2023 1:45 PM CDT Appointment Department of Radiology, [facility] in [address] [phone] Gwendolyn Rao M.D. [address] [place] [phone] 12/24/2023 9:00 AM CDT Appointment Department of Radiology, [facility] in [address] [phone] Gwendolyn Rao M.D. [address] [place] [phone] 12/24/2023 11:15 AM CDT Office Visit Division of Hematology in [address] [phone] Maureen Michelle M.D. [address] [place] [phone] documented as of this encounter Visit Diagnoses Not on filedocumented in this encounter Care Teams Threading Machine Tender Relationship Specialty Start Date End Date [facility] [place] [address] 05/22/21 documented as of this encounter
--- OUTSIDE RECORDS SUMMARY | 2023-10-25 20:19 | XMS_ITS | Clinical Summary ---
Author Name Unknown Organization [facility] Address [address] [place] [address] Care Team Providers Care Mechanical Product Design Engineer Name Role Phone Unavailable Primary Care Provider Unavailabl e Source Comments Patient records contain information from all sites at [facility]. For routine questions regarding patient records, call [phone] during business hours, M-F 8:00 AM - 5:00 PM Central Time. Record requests for emergency care only can be directed to [phone] at any time.[facility] Allergies Active Allergy Reactions Criticality Noted Date [...] Department Care Team Description 09/24/2023 11:45 AM STEAM PLANT OPERATOR Telemedicine Department of Oncology in [address] [phone] Gwendolyn Rao M.D. Carcinoid Tumor Malignant (HCC) (Primary Dx) 09/21/2023 Orders Only Department of Oncology in [address] [phone] Gwendolyn Rao M.D. 09/16/2023 Clinical Communication Department of Radiology, [facility] in [address] [phone] Kade Bennett M.D. Follow-up (Post procedure follow up phone call) 09/15/2023 9:40 AM STEAM PLANT OPERATOR - 09/15/2023 2:36 PM STEAM PLANT OPERATOR Hospital Encounter Outpatient Surgery Unit in [address] [phone] Gwendolyn Rao M.D. Hill, Jennifer M, APRN, C.N.P., D.N.P. Carcinoid Tumor Malignant (HCC) Discharge Disposition: Home or Self Care 09/10/2023 Clinical Communication Department of Oncology in [place], [place] [address] [place] [phone] Elly Yi, R.N. 09/09/2023 3:30 PM STEAM PLANT OPERATOR Office Visit Department of Oncology in [place], [place] [address] [place] [phone] Maureen Michelle M.D. Li, Marissa M, M.D. Carcinoid Tumor Malignant (HCC) (Primary Dx) 09/09/2023 10:15 AM STEAM PLANT OPERATOR - 09/09/2023 11:59 PM STEAM PLANT OPERATOR Hospital Encounter Department of Radiology, [facility] in [place], [place] [address] [place] [phone] Maureen Michelle M.D. Carcinoid Tumor Malignant (HCC); Personal History Of Malignant Neoplasm Of Prostate Discharge Disposition: Home or Self Care 09/04/2023 8:30 AM STEAM PLANT OPERATOR Clinical Communication Virtual Review in [place], [place] [address] [place] [address] Blood Pressure from Last 3 Months Immunizations [...] often do you attend chur ch or alevism services? More than 4 times per year 09/29/2019 Do you belong to any clubs o r organizations such as lutheran groups, unions, fraternal [...] Master's degree (e.g., MA, MS, Darrin, MEd, CAN DRAGGER, BERTHA) 09/29/2019 Sex and Gender Information Value Date Recorded Sex Assigned at Male 12/09/2022 3:56 PM CDT Gender Identity Male 02/23/2020 7:33 PM CDT Sexual Orientation Straight 02/23/2020 7: 33 PM CDT Last Filed Vital Signs Vital Sign Reading Time Taken Comments Blood Pressure 134/87 09/15/2023 1:15 PM STEAM PLANT OPERATOR Pulse 81 09/15/2023 12:35 PM STEAM PLANT OPERATOR Temperature 37.4 ??C (99.3 ??F) 09/15/2023 12:[address] Respiratory Rate 18 09/15/2023 12:49 PM STEAM PLANT OPERATOR Oxygen Saturation 100% 09/15/2023 12:49 PM STEAM PLANT OPERATOR Inhaled Oxygen Concentration - - Weight 98 kg (216 lb 0.8 oz) 09/09/2023 3:22 PM STEAM PLANT OPERATOR Height 177.1 cm (5' 9.72) 09/09/2023 3:22 PM CS T Body Mass Index 31.25 09/09/2023 3:22 PM STEAM PLANT OPERATOR Plan of Treatment Upcoming Encounters Date Type Department Care Team (Latest Contact Info) Description 12/22/2023 9:15 AM CDT Clinical Communication Virtual Review in [place], [place] 200 [place] [address] 12/23/2023 1:00 PM CDT Appointment Department of Laboratory Medicine and Pathology, [place], [place] [address] [place] [phone] Gwendolyn Rao M.D. [address] [place] [phone] 12/23/2023 1:45 PM CDT Appointment Department of Radiology, [facility] in [address] [phone] Gwendolyn Rao M.D. [address] [place] [phone] 12/24/2023 9:00 AM CDT Appointment Department of Radiology, [facility] in [place], [place] [address] [place] [phone] Gwendolyn Rao M.D. [address] [place] [phone] 12/24/2023 11:15 AM CDT Office Visit Division of Hematology in [place], [place] [address] [place] [phone] Maureen Michelle M.D. [address] [place] [phone] Health Maintenance Due Date Last Done Comments [...] this topic Medical Devices Implanted Type Area Tip Fixer Device Identifier Shelf Expiration Date Model / Serial / Lot Hardware E.G. Pins/Screws/R ods Hardware e.g. pins/screws/ rods Right: Shoulder Knee Implant Knee Implant Knee Description:Both knees repla sandip Procedures Procedure Name Priority Date/Time Associated Diagnosis Comments PROTHROMBIN TIME (PT), P STAT 09/15/2023 1:00 PM STEAM PLANT OPERATOR US LIVER BIOPSY RAD - Routine (most inpatients and all outpatients) 09/15/2023 12:16 PM STEAM PLANT OPERATOR Carcinoid Tumor Malignant (HCC) CYTOLOGY FINE NEEDLE ASPIRATION (INCLUDES CORE BIOPSIES Timed 09/15/2023 11:55 AM STEAM PLANT OPERATOR Carcinoid Tumor Malignant (HCC) INR, POCT, B Routine 09/15/2023 11:06 AM STEAM PLANT OPERATOR ADULT OXYGEN THERAPY Routine 09/15/2023 11:01 AM STEAM PLANT OPERATOR COMPREHENSIVE METABOLIC PANEL, S/P Routine 09/09/2023 1:45 PM STEAM PLANT OPERATOR 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 CBC WITH DIFFERENTIAL, B Routine 09/09/2023 1:45 PM STEAM PLANT OPERATOR 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 PET MR ABDOMEN FOCUSED WITHOUT AND WITH IV CONTRAST RAD - Routine (most inpatients and all outpatients) 09/09/2023 1:40 PM STEAM PLANT OPERATOR 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 PET MR TRUNK SURVEY DOTATATE RAD - Routine (most inpatients and all outpatients) 09/09/2023 1:40 PM STEAM PLANT OPERATOR 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 CREATININE, POCT, B Routine 09/09/2023 1 0:57 AM STEAM PLANT OPERATOR CREATININE, POCT, B Routine 09/09/2023 1 0:57 AM STEAM PLANT OPERATOR from Last 3 Months Results * Prothrombin Time (PT) (09/15/2023 1:00 PM STEAM PLANT OPERATOR) Prothrombin Time, P 12.5 9.4 - 12.5 sec 09/15/2023 1:12 PM STEAM PLANT OPERATOR METH INR 1.1 0.9 - 1.1 09/15/2023 1:12 PM STEAM PLANT OPERATOR METH Comment: ----ADDITIONAL INFORMATION---- Standard intensity warfarin therapeutic range: 2.0 to 3.0 ?? High intensity warfarin therapeutic range: 2.5 to 3.5 Blood (Blood, Venous) 09/15/2023 1:00 PM STEAM PLANT OPERATOR 09/15/2023 1:04 PM STEAM PLANT OPERATOR Kade Bennett M.D. LAB BLOOD ADD-O N [facility] [address] [place] [address], [place] [facility] [address] [place] [address] * US Liver Biopsy (09/15/2023 12:16 PM STEAM PLANT OPERATOR) Anatomical Region Laterality Modality Abdomen, Ultrasound RST LOS, Ultrasound ARZ LOS, Procedure FLA LOS, Abdominal FLA LOS, Procedural, Procedural NWWI LOS N/A Ultrasound Impressions 09/15/2023 12:34 PM STEAM PLANT OPERATOR Ultrasound-guided liver mass biopsy. EP Narrative 09/15/2023 12:34 PM STEAM PLANT OPERATOR EXAM: US LIVER BIOPSY PRE-PROCEDURE: Patient seen, [...] Aspiration (including core biopsies) (09/15/2023 11:55 AM STEAM PLANT OPERATOR) (A) 09/18/2023 4:29 PM STEAM PLANT OPERATOR DTL Disclaimer This test was developed and its performance characteristics determined by [facility] in a manner consistent with CLIA requirements. This test has not been cleared or approved by the U.S. Food and Drug Administration. (A) 09/18/2023 4:29 PM STEAM PLANT OPERATOR DTL Participated in the Interpretation Valerie Bauman M.D., Ph.D. -Pathology Resident(A) 09/18/2023 4:29 PM STEAM PLANT OPERATOR DTL Report electronically signed by Crissy Bowie M.D. I verify that I have examined all relevant slides/materials for the specimen(s) and rendered or confirmed the diagnosis. Seen in consultation with: Thierno Sevilla M.D., Ph.D. (A) 09/18/2023 4:29 PM STEAM PLANT OPERATOR DTL Gross Description Received 4 alcohol-fixed smears and tissue. Additionally, received in formalin labeled with the patient's name, medical record number, and liver mass are four [id number] softtissue cores and six fragments, 0.1 cm in average diameter and ranging from 0.1-1.5 cm in length. Specimens are submitted en toto incassettes A1, three cores and A2, one core and six fragments. ??Grossed by AJB. (A) 09/18/2023 4:29 PM STEAM PLANT OPERATOR DTL Source A. Liver, Mass, fine needle aspiration(A) 09/18/2023 4:29 PM STEAM PLANT OPERATOR DTL Interpretation A. Liver, Mass, fine needle [...] stained slides are scanned using the Leica [id number] digital scanner. The captured digital image is analyzed using a validated AI (Artificial Intelligence) algorithm by Aifblair (r) ??that calculates the percentage of positive staining tumor nuclei. The Aiforia (r) ??data and corresponding slide are reviewed by a pathologist for final interpretation. This test was developed and its performance characteristics determined by [facility] in a manner consistent with CLIA requirements. This test has not been cleared or approved by the U.S. Food and Drug Administration. Ki-[id number] interpreted by: ??Shahla Jack, Ph.D.(A) 09/18/2023 4:29 PM STEAM PLANT OPERATOR DTL Tissue (Liver) 09/15/2023 11 :55 AM STEAM PLANT OPERATOR Gwendolyn Rao M.D. LAB SURG PATH ORDERA BLES Performing Organization Address City/[facility]/ZIP Co de Phone Number [facility] [address] [place] [address], [facility] DT 200 [facility] [address] [place] [address] * INR, POCT (09/15/2023 11:06 AM STEAM PLANT OPERATOR) INR, POCT, B 1.1 09/15/2023 4:30 PM STEAM PLANT OPERATOR [facility] Comment: ----ADDITIONAL INFORMATION---- Standard intensity warfarin therapeutic range: 2.0 to 3.0 ?? High intensity warfarin therapeutic range: 2.5 to 3.5 Blood 09/15/2023 11:0 6 AM STEAM PLANT OPERATOR 09/15/2023 4:30 PM STEAM PLANT OPERATOR Unknown Provider LAB POCT ORDERABLES - DEVICE Performing Organization Address City/[facility]/ZIP Co de Phone Number [facility] [address] PCMO [facility] [address] [place] [address] * (ABNORMAL) CBC with Differential, Blood (09/09/2023 1:45 PM STEAM PLANT OPERATOR) Hemoglobin 15.0 13.2 - 16.6 g/dL 09/09/2023 2:27 PM STEAM PLANT OPERATOR DTL Hematocrit 43.4 38.3 - 48.6 % 09/09/2023 2:27 PM STEAM PLANT OPERATOR DTL Erythrocytes 4.40 4.35 - 5.65 x10(12)/L 09/09/2023 2:27 PM STEAM PLANT OPERATOR DTL MCV 98.6(H) 78.2 - 97.9 fL 09/09/2023 2:27 PM STEAM PLANT OPERATOR DTL RBC Distrib Width 12.5 11.8 - 14.5 % 09/09/2023 2:27 PM STEAM PLANT OPERATOR DTL Platelet Count 211 135 - 317 x10(9)/L 09/09/2023 2:27 PM STEAM PLANT OPERATOR DTL Leukocytes 3.7 3.4 - 9.6 x10(9)/L 09/09/2023 2:27 PM STEAM PLANT OPERATOR DTL Neutrophils 1.62 1.56 - 6.45 x10(9)/L 09/09/2023 2:27 PM STEAM PLANT OPERATOR [facility] Lymphocytes 1.34 0.95 - 3.07 x10(9)/L 09/09/2023 2:27 PM STEAM PLANT OPERATOR DTL Monocytes 0.50 0.26 - 0.81 x10(9)/L 09/09/2023 2:27 PM STEAM PLANT OPERATOR DTL Eosinophils 0.18 0.03 - 0.48 x10(9)/L 09/09/2023 2:27 PM STEAM PLANT OPERATOR DTL Basophils <0.03 0.01 - 0.08 x10(9)/L 09/09/2023 2:27 PM STEAM PLANT OPERATOR DTL Blood (Blood, Venous) 09/09/2023 1:45 PM STEAM PLANT OPERATOR 09/09/2023 2:17 PM STEAM PLANT OPERATOR Maureen Michelle M.D. LAB BLOOD ADD-ON [facility] [address] [place] [address], [facility] DTL [facility] [address] [place] [address] [facility] [address] [place] [address] * Comprehensive Metabolic Panel (09/09/2023 1:45 PM STEAM PLANT OPERATOR) [facility] Potassium, S 4.6 3.6 - 5.2 mmol/L 09/09/2023 2:47 PM STEAM PLANT OPERATOR DTL Sodium, S 143 135 - 145 mmol/L 09/09/2023 2:47 PM STEAM PLANT OPERATOR DTL Chloride, S 104 98 - 107 mmol/L 09/09/2023 2:47 PM STEAM PLANT OPERATOR DTL Bicarbonate, S 27 22 - 29 mmol/L 09/09/2023 2:47 PM STEAM PLANT OPERATOR DTL Anion Gap 12 7 - 15 09/09/2023 2:47 PM STEAM PLANT OPERATOR DTL BUN (Blood Urea Nitrogen), S 13 8 - 24 mg/dL 09/09/2023 2:47 PM STEAM PLANT OPERATOR DTL Creatinine 1.10 0.74 - 1.35 mg/dL 09/09/2023 2:47 PM STEAM PLANT OPERATOR DTL Estimated GFR (eGFR) 68 >=60 mL/min/BS A 09/09/2023 2:47 PM STEAM PLANT OPERATOR DTL Comment: Estimated GFR calculated using the 2020 CKD_EPI creatinine equation. Calcium, Total, S 9.1 8.8 - 10.2 mg/dL 09/09/2023 2:47 PM STEAM PLANT OPERATOR DTL Glucose, S 101 70 - 140 mg/dL 09/09/2023 2:47 PM STEAM PLANT OPERATOR DTL Protein, Total, S 6.6 6.3 - 7.9 g/dL 09/09/2023 2:47 PM STEAM PLANT OPERATOR DTL Albumin, S 4.1 3.5 - 5.0 g/dL 09/09/2023 2:47 PM STEAM PLANT OPERATOR DTL Aspartate Aminotransferase (AST), S 36 8 - 48 U/L 09/09/2023 2:47 PM STEAM PLANT OPERATOR DTL Alkaline Phosphatase, S 82 40 - 129 U/L 09/09/2023 2:47 PM STEAM PLANT OPERATOR DTL Alanine Aminotransferase (ALT), S 31 7 - 55 U/L 09/09/2023 2:47 PM STEAM PLANT OPERATOR DTL Bilirubin, Total, S 0.8 0.0 - 1.2 mg/dL 09/09/2023 2:47 PM STEAM PLANT OPERATOR DTL Blood (Blood, Venous) 09/09/2023 1:45 PM STEAM PLANT OPERATOR 09/09/2023 2:27 PM STEAM PLANT OPERATOR Maureen Michelle M.D. LAB BLOOD ADD-ON [facility] [address] [place] [address], [place] DTL [facility] [address] [place] [address] * PET MR Skull to Thigh Survey DOTATATE (09/09/2023 1:40 PM STEAM PLANT OPERATOR) Anatomical Region Laterality Modality Body, Nuclear Medicine PET R ST LOS, PET ARZ LOS, Nuclear Medicine PET FLA LOS, Nuclear Medicine N/A Positron Emission Tomography (PET), Magnetic Resonance Impressions 09/09/2023 2:26 PM STEAM PLANT OPERATOR 1. Interval progression since the prior [...] Krenning score: 4 Narrative 09/09/2023 2:26 PM STEAM PLANT OPERATOR EXAM: PET MR SKULL TO THIGH SURVEY DOTATATE RADIOPHARMACEUTICAL/MEDS: Route: intravenous gallium Ga 68 dotatate injection (Ga-68 Tins.ly),5.25 millicurie TECHNIQUE: Ga-68 DOTATATE PET/MRI scan was [...] intravenous gallium Ga 68 dotatate injection (Ga-68 The Echo NestPOT),5.25 millicurie TECHNIQUE: Ga-68 DOTATATE PET/MRI scan was [...] have an SUV max of 17.9 (whole-body [id number]). Interval increase in tracer avid tumor burden [...] avid foci in the small bowel (whole-body [id number], 237), suspicious for primary small bowel lesions. [...] and With IV Contrast (09/09/2023 1:40 PM STEAM PLANT OPERATOR) Anatomical Region Laterality Modality Abdomen, Abdominal RST LOS, PET ARZ LOS, Abdominal ARZ LOS, Abdominal FLA LOS N/A Positron Emission Tomography (PET), Magnetic Resonance Impressions 09/09/2023 2:36 PM STEAM PLANT OPERATOR Slight interval enlargement of hepatic, peritoneal, and osseous metastases and stable lymphadenopathy. Narrative 09/09/2023 2:36 PM STEAM PLANT OPERATOR EXAM: ??PET MR ABDOMEN FOCUSED WITHOUT [...] osseous metastasesand stable lymphadenopathy. Maureen Michelle M.D. IMG MRI PROCEDURES * Creatinine, POCT (09/09/2023 10:57 AM STEAM PLANT OPERATOR) Only the most recent of2 resultswithin the time period is included. Creatinine, POCT, B 1.1 0.7 - 1.4 mg/dL 09/09/2023 10:59 AM STEAM PLANT OPERATOR PCDT Comment: ----ADDITIONAL INFORMATION---- Performed at the Point of Care Blood 09/09/2023 10:5 7 AM STEAM PLANT OPERATOR 09/09/2023 10:59 AM STEAM PLANT OPERATOR Unknown Provider LAB POCT ORDERABLES - DEVICE [facility] [address] [place] [address], [place] PCDT [facility] POC [address] [place] [address] from Last 3 Months Care Teams Mechanical Product Design Engineer Relationship Specialty Start Date End Date [facility] [address] [place] [address] 05/22/21
--- OUTSIDE RECORDS SUMMARY | 2023-10-25 20:19 | XMS_ITS | Encounter Summary ---
Author Name Unknown Organization [facility] Address [address] [place] [address] Care Team Providers Care Flight Service Agent Name Role Phone Unavailable Primary Care Provider Unavailabl e Reason for Referral * Outpatient (Routine) - Closed Specialty Diagnoses / Procedures Referred By Gayle t Referred To Contact Oncology Gwendolyn Rao M.D. [address] [place] [phone] [facility] Referral ID Status Reason Start Date Expiration Date Visits Re quested Visits Authorized [id number] Closed 09/21/2023 09/20/2026 1 1 Scheduling Instructions 11:45am video TH PROFESSIONAL Encounter Details Date Type Department Care Team (Late st Contact Info) Description 09/21/2023 Orders Only Department of Oncology in [place], [place] [address] [place] [phone] Gwendolyn Rao M.D. [address] [place] [phone] Social History Tobacco Use Types Packs/Day Years [...] often do you attend chur ch or mandaen services? More than 4 times per year 09/29/2019 Do you belong to any clubs o r organizations such as jehovah's witness groups, unions, fraternal or athletic groups, or [...] and heating? Not hard at all 09/29/2019 [facility] of Occupat ional Health - Occupational Stress [...] Master's degree (e.g., MA, MS, Darrin, MEd, POLARITY TESTER, BERTHA) 09/29/2019 Sex and Gender Information Value Date Recorded Sex Assigned at Male 12/09/2022 3:56 PM CDT Gender Identity Male 02/23/2020 7:33 PM CDT Sexual Orientation Straight 02/23/2020 7: 33 PM CDT documented as of this encounter Plan of Treatment Upcoming Encounters Date Type Department Care Team (Latest Contact Info) Description 12/22/2023 9:15 AM CDT Clinical Communication Virtual Review in [address] [address] 12/23/2023 1:00 PM CDT Appointment Department of Laboratory Medicine and Pathology, [place], [place] [address] [place] [phone] Gwendolyn Rao M.D. [address] [place] [phone] 12/23/2023 1:45 PM CDT Appointment Department of Radiology, [address] [phone] Gwendolyn Rao M.D. [address] [place] [phone] 12/24/2023 9:00 AM CDT Appointment Department of Radiology, [place], [place] [address] [place] [phone] Gwendolyn Rao M.D. [address] [place] [phone] 12/24/2023 11:15 AM CDT Office Visit Division of Hematology in [place], [place] [address] [place] [address] Maureen Michelle M.D. [address] [place] [address] Scheduled Referrals Name Type Priority Associated Diagnoses Orde r Schedule Oncology office visit (clinic) Outpatient Referral Routine Expected: 09/24/2023, Expires: 12/20/2024 documented as of this encounter Visit Diagnoses Not on filedocumented in this encounter Care Teams Flight Service Agent Relationship Specialty Start Date End Date [facility] [place] [address] 05/22/21 documented as of this encounter
--- OUTSIDE RECORDS SUMMARY | 2023-10-25 20:19 | XMS_ITS | Clinical Summary ---
Author Name Unknown Organization [facility] Address [place], [place] [address] Care Team Providers Care Surgery Scheduling Coordinator Name Role Phone Rosalinda Yancey MD Primary Care Provider [phone] Allergies Active Allergy Reactions Criticality Noted Date [...] 36.7 ??C (98 ??F) 10/08/2016 8:00 AM CONTACT LENS FLASHING PUNCHER Respiratory Rate 16 10/08/2016 12:05 AM CONTACT LENS FLASHING PUNCHER Oxygen Saturation 95% 06/23/2019 3:28 PM CDT [...] history exists Influenza for age 65+ 05/15/2023 Advance Directives Latest Code Status on File Code Status Date Activated Date Inactivated Comments Full Code 10/07/2016 1:07 PM 10/08/2016 3:08 PM Code Status History Code Status Date Activated Date Inactivated Comments Full Code 10/06/2016 11:29 AM 10/07/2016 1:07 PM Full Code 10/04/2016 12:47 PM 10/06/2016 11:29 AM Care Teams Surgery Scheduling Coordinator Relationship Specialty Start Date End Date Rosalinda Yancey MD PCP - General Internal Medicine 10/22/16
--- OUTSIDE RECORDS SUMMARY | 2023-10-25 20:19 | XMS_ITS | Encounter Summary ---
Author Name Unknown Organization [facility] Address [address] [place] [address] Care Team Providers Care Veneer Taping Machine Offbearer Name Role Phone Unavailable Primary Care Provider Unavailabl e Reason for Visit * Outpatient (Routine) - Closed Specialty Diagnoses / Procedures Referred By Gayle t Referred To Contact Oncology Maureen Michelle M.D. [address] [place] [phone] [facility] Referral ID Status Reason Start Date Expiration Date Visits Re quested Visits Authorized [id number] Closed 03/02/2023 03/01/2026 1 1 Encounter Details Date Type Department Care Team (Late st Contact Info) Description 09/09/2023 3:30 PM ORGANIZATIONAL RESEARCH CONSULTANT Office Visit Department of Oncology in [place], [place] [address] [place] [phone] Maureen Michelle M.D. [address] [place] [address] [phone] Gwendolyn Rao M.D. [address] [place] [address] [phone] Carcinoid Tumor Malignant (HCC) (Primary Dx) Social [...] often do you attend chur ch or adventism services? More than 4 times per year 09/29/2019 Do you belong to any clubs o r organizations such as taoism groups, unions, fraternal [...] heating? Not hard at all 09/29/2019 [facility] [place] of Occupat ional Health - Occupational Stress [...] Master's degree (e.g., MA, MS, Darrin, MEd, STORE PRODUCT DEMONSTRATOR, BERTHA) 09/29/2019 Sex and Gender Information Value Date Recorded Sex Assigned at Male 12/09/2022 3:56 PM CDT Gender Identity Male 02/23/2020 7:33 PM CDT Sexual Orientation Straight 02/23/2020 7: 33 PM CDT documented as of this encounter Last Filed Vital Signs Vital Sign Reading Time Taken Comments Blood Pressure 107/72 09/09/2023 3:22 PM ORGANIZATIONAL RESEARCH CONSULTANT Pulse 94 09/09/2023 3:22 PM ORGANIZATIONAL RESEARCH CONSULTANT Temperature 37.3 ??C (99.1 ??F) 09/09/2023 3:22 PM CS T Respiratory Rate 16 09/09/2023 3:22 PM ORGANIZATIONAL RESEARCH CONSULTANT Oxygen Saturation 95% 09/09/2023 3:22 PM ORGANIZATIONAL RESEARCH CONSULTANT Inhaled Oxygen Concentration - - Weight 98 kg (216 lb 0.8 oz) 09/09/2023 3:22 PM ORGANIZATIONAL RESEARCH CONSULTANT Height 177.1 cm (5' 9.72) 09/09/2023 3:22 PM CS T Body Mass Index 31.25 09/09/2023 3:22 PM ORGANIZATIONAL RESEARCH CONSULTANT documented in this encounter Progress Notes * Gwendolyn Rao M.D. - 09/09/2023 3:30 PM CST SUBJECTIVE CHIEF COMPLAINT / REASON FOR VISIT Ricky Villeda is a 78 y.o. male who presents for follow-up of neuroendocrine tumor. [facility] Primary Staff Oncologist: Dr. [...] improved. October 11, 2019: Initial evaluation at [facility]. Review of outside DOTATATE scan (10/07/2019) shows [...] normal. February 20, 2023: Follow up at [facility]. Disease had previously shown improvement/stability on octreotide [...] both PRRT and everolimus. Also met with hr coordinator today Elly Yi. In order to [...] Dr. Holloway who agrees with the plan NIZATIONAL RESEARCH CONSULTANT documented in this encounter Plan of Treatment Upcoming Encounters Date Type Department Care Team (Latest Contact Info) Description 12/22/2023 9:15 AM CDT Clinical Communication Virtual Review in [address] [address] 12/23/2023 1:00 PM CDT Appointment Department of Laboratory Medicine and Pathology, [address] [phone] Gwendolyn Rao M.D. [address] [place] [phone] 12/23/2023 1:45 PM CDT Appointment Department of Radiology, [facility] in [address] [phone] Gwendolyn Rao M.D. [address] [place] [address], [place] [phone] 12/24/2023 9:00 AM CDT Appointment Department of Radiology, [facility], in [place], [place] [address] [place] [phone] Gwendolyn Rao M.D. [address] [place] [phone] 12/24/2023 11:15 AM CDT Office Visit Division of Hematology in [place], [place] [address] [place] [address] Maureen Michelle M.D. [address] [place] [phone] documented as of this encounter Visit Diagnoses Diagnosis Carcinoid Tumor Malignant (HCC)- Primary documented in this encounter Care Teams Veneer Taping Machine Offbearer Relationship Specialty Start Date End Date [facility] [address] [place] [address] 05/22/21 documented as of this encounter
--- OUTSIDE RECORDS SUMMARY | 2023-10-25 20:20 | XMS_ITS | Encounter Summary ---
Author Name Unknown Organization [facility] Address [address] [place] [address] Care Team Providers Care Data Security Administrator Name Role Phone Annie Singh MD Primary Care Provider + Reason for Referral * Consultation (Routine) - Pending Review Specialty Diagnoses / Procedures Referred By Gayle walsh Referred To Contact Medical Oncology Diagnoses Other malignant neuroendocrine tumors (H) Joey Chow MD [address] [place] [address] Referral ID Status Reason Start Date Expiration Date V isits Requested Visits Authorized [id number] Pending Review 10/21/2023 10/20/2024 1 1 Question Answer My Clinical Question Is: other malignant neuroendocrine tumors If you have additional clinical questions which require a provider discussion, please call [phone]. Ask for the Chemo only medicine physician. Reason for Referral: Medical Oncology Scheduling Instructions: [facility] will call you to coordinate your care as prescribed by the provider. If you don? t hear from a resources representative within 2 business days, please call Additional Information: [facility] Auth [id number]/ evalaution for PRRT Comments Ref recd by fax from [facility]/ [facility] Auth [id number]/ evalaution for PRRT [facility] T [phone] F [phone] Please be aware that coverage of these services is subject to the terms and limitations of your health insurance plan. Call member services at your health plan with any benefit or coverage questions. [facility] will call you to coordinate your care as prescribed by the provider. If you don? t hear from a resources representative within 2 business days, please call RAM DIRECTOR/MUSIC DIRECTOR Encounter Details Date Type Department Care Team (Latest Contact Info) Description 10/21/2023 Transcribe Orders GENERIC EXTERNAL DATA DEPARTMENT Provider, Generic External Data Other malignant neuroendocrine tumors (H) (Primary Dx) Social History Tobacco Use Types Packs/Day Years Used Date Smoking Tobacco: Never Assessed Adolescent Education Answer Date Record ed Getting School Help Needed Not on file 07/01 Sex and Gender Information Value Date Recorded Sex Assigned at Not on file Gender Identity Not on file Sexual Orientation Not on file documented as of this encounter Plan of Treatment Scheduled Referrals Name Type Priority Associated Diagnoses Orde r Schedule Adult Oncology/Hematology [employer] Referral Referral Routine Other malignant neuroendocrine tumors (H) Ordered: 10/21/2023 documented as of this encounter Visit Diagnoses Diagnosis Other malignant neuroendocrine tumors (H)- Primary documented in this encounter Care Teams Data Security Administrator Relationship Specialty Start Date End Date Annie Singh MD [facility] [place] [address] PCP - General 10/21/23 documented as of this encounter
--- OUTSIDE RECORDS SUMMARY | 2023-10-25 20:20 | XMS_ITS | Encounter Summary ---
Author Name Unknown Organization [facility] Address [address] [place] [address] Care Team Providers Care Recycling Operations Manager Name Role Phone Unavailable Primary Care Provider Unavailabl e Encounter Details Date Type Department Care Team (Latest Contact Info) Description 03/02/2023 9:00 AM CDT - 03/02/2023 11:59 PM CDT Hospital Encounter Department of Laboratory Medicine and Pathology, [facility] in [place], [place] [address] [place] [address] Maureen Michelle M.D. [address] [place] [phone] Carcinoid Tumor Malignant (HCC) Discharge Disposition: Home [...] often do you attend chur ch or jehovah's witness services? More than 4 times per year [...] and heating? Not hard at all 09/29/2019 [facility] [place] of Occupat ional Health - Occupational Stress [...] Master's degree (e.g., MA, MS, Darrin, MEd, SPEEDER OPERATOR, BERTHA) 09/29/2019 Sex and Gender Information [...] AM CDT Clinical Communication Virtual Review in [place], [place] 200 [place] [address] 12/23/2023 1:00 PM CDT Appointment Department of Laboratory Medicine and Pathology, [facility], in [place], [place] [address] [place] [phone] Gwendolyn Rao M.D. [address] [place] [phone] 12/23/2023 1:45 PM CDT Appointment Department of Radiology, [facility], in [place], [place] [address] [place] [address] Gwendolyn Rao M.D. [address] [place] [phone] 12/24/2023 9:00 AM CDT Appointment Department of Radiology, [facility] in [place], [place] [address] [place] [phone] Gwendolyn Rao M.D. [address] [place] [phone] 12/24/2023 11:15 AM CDT Office Visit Division of Hematology in [place], [place] [address] [place] [phone] Maureen Michelle M.D. [address] [place] [phone] documented as of this encounter Procedures Procedure Name Priority Date/Time Associated Diagnosis Comments CBC WITH DIFFERENTIAL, B Routine 03/02/2023 9:23 AM CDT Carcinoid Tumor Malignant (HCC) COMPREHENSIVE METABOLIC PANEL, S/P Routine 03/02/2023 9:23 AM CDT Carcinoid Tumor Malignant (HCC) documented in this encounter Results * (ABNORMAL) Comprehensive Metabolic Panel (03/02/2023 9:23 AM CDT) Potassium, S 5.0 3.6 - 5.2 mmol/L [...] CDT Maureen Michelle M.D. LAB BLOOD ADD-[facility] [address] [place] [address], [facility] [address] [place] [address] * (ABNORMAL) CBC with Differential, Blood (03/02/2023 [...] CDT Maureen Michelle M.D. LAB BLOOD ADD[facility] [address] [place] [address], [facility] [address] [place] [address] documented in this encounter Visit Diagnoses Diagnosis Carcinoid Tumor Malignant (HCC) documented in this encounter Care Teams Recycling Operations Manager Relationship Specialty Start Date End Date [facility] [address] [facility] [place] [address] 05/22/21 documented as of this encounter
--- OUTSIDE RECORDS SUMMARY | 2023-10-25 20:20 | XMS_ITS | Encounter Summary ---
Author Name Unknown Organization [facility] Address [address] [place] [address] Care Team Providers Care Porter Baggage Name Role Phone Unavailable Primary Care Provider Unavailabl e Reason for Referral * MRI/CAT/PET Scan (Routine) - Closed Specialty Diagnoses / Procedures Referred By Gayle walsh Referred To Contact Radiology Diagnoses Carcinoid Tumor Malignant (HCC) Procedures CT Chest with IV Contrast Maureen Michelle M.D. 200 [place] [phone] [facility] Referral ID Status Reason Start Date Expiration Date Visits Re quested Visits Authorized [id number] Closed 08/04/2022 08/04/2023 1 1 Reason for Visit * MRI/CAT/PET Scan (Routine) - Closed Specialty Diagnoses / Procedures Referred By Gayle walsh Referred To Contact Radiology Diagnoses Carcinoid Tumor Malignant (HCC) Procedures CT Chest with IV Contrast Maureen Michelle M.D. [address] [place] [phone] [facility] Referral ID Status Reason Start Date Expiration Date Visits Re quested Visits Authorized [id number] Closed 08/04/2022 08/04/2023 1 1 Encounter Details Date Type Department Care Team (Latest Contact Info) Description 03/02/2023 8:12 AM CDT - 03/02/2023 8:59 AM CDT Hospital Encounter Department of Radiology, [facility] in [place], [place] [address] [place] [address] Maureen Michelle M.D. [address] [place] [address] Carcinoid Tumor Malignant (HCC) Discharge Disposition: Home [...] often do you attend chur ch or yazidism services? More than 4 times per year 09/29/2019 Do you belong to any clubs o r organizations such as confucianism groups, unions, fraternal or athletic groups, or [...] and heating? Not hard at all 09/29/2019 [facility] [place] of Occupat ional Health - Occupational Stress [...] Master's degree (e.g., MA, MS, Darrin, MEd, TAPPER OPERATOR, BERTHA) 09/29/2019 Sex and Gender Information [...] AM CDT Clinical Communication Virtual Review in [place], [place] 200 [place] [address] 12/23/2023 1:00 PM CDT Appointment Department of Laboratory Medicine and Pathology, [facility] in [place], [place] [address] [place] [phone] Gwendolyn Rao M.D. [address] [place] [phone] 12/23/2023 1:45 PM CDT Appointment Department of Radiology, [facility] in [place], [place] [address] [place] [phone] Gwendolyn Rao M.D. [address] [place] [phone] 12/24/2023 9:00 AM CDT Appointment Department of Radiology, [facility] in [place], [place] [address] [place] [phone] Gwendolyn Rao M.D. [address] [place] [phone] 12/24/2023 11:15 AM CDT Office Visit Division of Hematology in [address] [phone] Maureen Michelle M.D. [address] [place] [address] documented as of this encounter Procedures Procedure [...] is present in the lung bases. Tractor Trailer Moving Van Driver lung nodules include: * ??4 mm, solid, [...] Atelectasis is present in the lung bases.Tractor Trailer Moving Van Driver lung nodules include: * 4 mm, solid, [...] 4. New L1 vertebral body compression deformity. Hadiyah Y Ahmad M.D. IMG CT PROCEDURES documented in this encounter Visit Diagnoses Diagnosis Carcinoid Tumor Malignant (HCC) documented in this encounter Administered Medications Inactive Administered Medications - up to 3 most recent administrations Medication Order MAR Action Action Date Dose Rate Site iohexoL 300 mg iodine/mL solution 1-200 mL (OMNIPAQUE) 1-200 mL, intravenous, Once in imaging, contrast, Starting on 03/02/23 at 0825, For 1 dose, Imaging Protocol Orders, Dose per Radiant Medication Guidelines Given 03/02/2023 8:43 AM CDT 80 mL documented in this encounter Care Teams Porter Baggage Relationship Specialty Start Date End Date [facility] [address] [place] [address] 05/22/21 documented as of this encounter
--- OUTSIDE RECORDS SUMMARY | 2023-10-25 20:20 | XMS_ITS | Clinical Summary ---
Author Name Unknown Organization [facility] Address [address] [place] [address] Care Team Providers Care Instructional Systems Specialist Name Role Phone Annie Singh MD Primary Care Provider + Encounters Date Type Department Care Team Description 10/21/2023 Transcribe Orders GENERIC EXTERNAL DATA DEPARTMENT Provider, Generic External Data Other malignant neuroendocrine tumors (H) (Primary Dx) from Last 3 Months Social History Tobacco Use Types Packs/Day Years [...] 1944 ANNUAL REVIEW OF HM ORDERS 1944 GLUCOSE 1944 HEPATITIS C SCREENING 1962 IPV IMMUNIZATION (2 of 3 - Adult catch-up series) 09/05/1974 08/08/1974 LIPID 1984 RSV VACCINE ( & 60+) (1 - 1-dose 60+ series) 2004 FALL RISK ASSESSMENT 2009 MEDICARE ANNUAL WELLNESS VISIT 2009 Pneumococcal Vaccine: 65+ Years (2 of 2 - PPSV23 or PCV20) 05/09/2016 05/09/2015, 02/09/2014, 06/08/2009 PHQ-2 (once per calendar year) 2023 DTAP/TDAP/TD IMMUNIZATION (7 - Td or Tdap) 02/20/2033 02/20/2023, 08/29/2016, 04/14/2014, Additional history exists ZOSTER IMMUNIZATION Completed 02/17/2019, 10/06/2018, 06/13/2009 INFLUENZA VACCINE Completed 07/20/2023, , 06/16/2022, Additional history exists COVID-19 Vaccine Completed 09/22/2023, 11/2021, 01/29/2022, Additional history exists HPV IMMUNIZATION Aged Out No longer e ligible based on patient's age to complete this topic MENINGITIS IMMUNIZATION Aged Out No l onger eligible based on patient's age to complete this topic RSV MONOCLONAL ANTIBODY Aged Out No l onger eligible based on patient's age to complete this topic Care Teams Instructional Systems Specialist Relationship Specialty Start Date End Date Annie Singh MD [facility] [address] [place] [id number] PCP - General 10/21/23
--- OUTSIDE RECORDS SUMMARY | 2023-10-25 20:20 | XMS_ITS | Encounter Summary ---
Author Name Unknown Organization [facility] Address [address] [place] [address] Care Team Providers Care Quality Lab Assoc Name Role Phone Unavailable Primary Care Provider Unavailabl e Encounter Details Date Type Department Care Team (Latest Contact Info) Description 02/26/2023 8:45 AM CDT Clinical Communication Virtual Review in [place], [place] [address] [place], [place] [phone] Social History Tobacco Use Types Packs/Day Years [...] any clubs o r organizations such as oriental orthodox groups, unions, [...] heating? Not hard at all 09/29/2019 [facility] - Occupational Stress Questionnaire Answer Date [...] Master's degree (e.g., MA, MS, Darrin, MEd, PEER EDUCATOR, BERTHA) 09/29/2019 Sex and Gender Information Value Date Recorded Sex Assigned at Male 12/09/2022 3:56 PM CDT Gender Identity Male 02/23/2020 7:33 PM CDT Sexual Orientation Straight 02/23/2020 7: 33 PM CDT documented as of this encounter Plan of Treatment Upcoming Encounters Date Type Department Care Team (Latest Contact Info) Description 12/22/2023 9:15 AM CDT Clinical Communication Virtual Review in [place], [place] 200 [place] [address] 12/23/2023 1:00 PM CDT Appointment Department of Laboratory Medicine and Pathology, [facility] in [place], [place] [address] [place] [phone] Gwendolyn Rao M.D. [address] [place] [phone] 12/23/2023 1:45 PM CDT Appointment Department of Radiology, [facility] in [place], [place] [address] [place] [phone] Gwendolyn Rao M.D. [address] [place] [phone] 12/24/2023 9:00 AM CDT Appointment Department of Radiology, [facility] in [place], [place] [address] [place] [phone] Gwendolyn Rao M.D. [address] [place] [phone] 12/24/2023 11:15 AM CDT Office Visit Division of Hematology in [address] [phone] Maureen Michelle M.D. [address] [place] [phone] documented as of this encounter Visit Diagnoses Not on filedocumented in this encounter Care Teams [facility]oc Relationship Specialty Start Date End Date [facility] [place] [address] 05/22/21 documented as of this encounter
--- OUTSIDE RECORDS SUMMARY | 2023-10-25 20:20 | XMS_ITS | Referral Summary ---
Author Name Unknown Organization [facility] Address [address] [place] [address] Care Team Providers Care Millwright Instructor Name Role Phone Annie Singh MD Primary [...] of Treatment Not on file Care Teams Millwright Instructor Relationship Specialty Start Date End Date Annie Singh MD [facility] [address] [place] [id number] PCP - General 10/21/23
--- OUTSIDE RECORDS SUMMARY | 2023-10-25 20:20 | XMS_ITS | Encounter Summary ---
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 [address] [place] [phone] 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 [address] [place] [address] [facility] Referral ID Status Reason Start Date Expiration Date V isits Requested Visits Authorized [id number] Authorized 03/02/2023 03/01/2024 6 6 * Outpatient (Routine) - Closed Specialty Diagnoses / Procedures Referred By Gayle walsh Referred To Contact Oncology Maureen Michelle M.D. [address] [place] [phone] [facility] Referral ID Status Reason Start Date Expiration Date Visits Re quested Visits Authorized [id number] Closed 03/02/2023 03/01/2026 1 1 Scheduling Instructions Okay for 4-6 months, thank you Reason for Visit * Outpatient (Routine) - Closed Specialty Diagnoses / Procedures Referred By Gayle walsh Referred To Contact Oncology Maureen Michelle M.D. [address] [place] [phone] [facility] Referral ID Status Reason Start Date Expiration Date Visits Re quested Visits Authorized [id number] Closed 08/04/2022 08/03/2025 1 1 Encounter Details Date Type Department Care Team (Late st Contact Info) Description 03/02/2023 1:30 PM CDT Office Visit Department of Oncology in [place], [place] [address] [place] [phone] Maureen Michelle M.D. [address] [place] [phone] Carcinoid Tumor Malignant (HCC) (Primary Dx); Personal [...] week 09/29/2019 How often do you attend [facility] or baptism services? More than 4 times per year 09/29/2019 Do you belong to any clubs o r organizations such as moravian groups, unions, fraternal or athletic groups, or [...] and heating? Not hard at all 09/29/2019 [facility] Occupat ional [facility] - Occupational Stress Questionnaire Answer Date [...] Master's degree (e.g., MA, MS, Darrin, MEd, DRYWALL APPLICATOR, BERTHA) 09/29/2019 Sex and Gender Information Value [...] presents for follow-up of neuroendocrine tumor. [facility] Primary Staff Oncologist: Dr. 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 October 11, 2019: Initial evaluation at [facility]. Review of outside DOTATATE scan (10/07/2019) shows [...] normal. February 20, 2023: Follow up at [facility]. Disease had previously shown improvement/stability on octreotide [...] status post high-intensity focused ultrasound in 2007 ([place]) s/p salvage prostatectomy and bilateral pelvic LN [...] AM CDT Clinical Communication Virtual Review in [place], [place] 200 [place] [address] 12/23/2023 1:00 PM CDT Appointment Department of Laboratory Medicine and Pathology, [facility] in [place], [place] [address] [place] [phone] Gwendolyn Rao M.D. [address] [place] [phone] 12/23/2023 1:45 PM CDT Appointment Department of Radiology, [facility] in [place], [place] [address] [place] [phone] Gwendolyn Rao M.D. [address] [place] [phone] 12/24/2023 9:00 AM CDT Appointment Department of Radiology, [facility] in [place], [place] [address] [place] [phone] Gwendolyn Rao M.D. [address] [place] [phone] 12/24/2023 11:15 AM CDT Office Visit Division of Hematology in [address] [phone] Maureen Michelle M.D. [address] [place] [phone] Scheduled Referrals Name Type Priority Associated Diagnoses Orde r Schedule Oncology office visit (clinic) General; [facility] Outpatient Referral Routine Expected: 09/01/2023 (Approximate), Expires: 06/02/2024 documented as of this encounter Results * Comprehensive Metabolic Panel (09/09/2023 1:45 PM BAKERY ASSISTANT) [facility] Potassium, S 4.6 3.6 - 5.2 mmol/L 09/09/2023 2:47 PM BAKERY ASSISTANT DTL Sodium, S 143 135 - 145 mmol/L 09/09/2023 2:47 PM BAKERY ASSISTANT DTL Chloride, S 104 98 - 107 mmol/L 09/09/2023 2:47 PM BAKERY ASSISTANT DTL Bicarbonate, S 27 22 - 29 mmol/L 09/09/2023 2:47 PM BAKERY ASSISTANT DTL Anion Gap 12 7 - 15 09/09/2023 2:47 PM BAKERY ASSISTANT DTL BUN (Blood Urea Nitrogen), S 13 8 - 24 mg/dL 09/09/2023 2:47 PM BAKERY ASSISTANT DTL Creatinine 1.10 0.74 - 1.35 mg/dL 09/09/2023 2:47 PM BAKERY ASSISTANT DTL Estimated GFR (eGFR) 68 >=60 mL/min/BS A 09/09/2023 2:47 PM BAKERY ASSISTANT DTL Comment: Estimated GFR calculated using the 2020 CKD_EPI creatinine equation. Calcium, Total, S 9.1 8.8 - 10.2 mg/dL 09/09/2023 2:47 PM BAKERY ASSISTANT DTL Glucose, S 101 70 - 140 mg/dL 09/09/2023 2:47 PM BAKERY ASSISTANT DTL Protein, Total, S 6.6 6.3 - 7.9 g/dL 09/09/2023 2:47 PM BAKERY ASSISTANT DTL Albumin, S 4.1 3.5 - 5.0 g/dL 09/09/2023 2:47 PM BAKERY ASSISTANT DTL Aspartate Aminotransferase (AST), S 36 8 - 48 U/L 09/09/2023 2:47 PM BAKERY ASSISTANT DTL Alkaline Phosphatase, S 82 40 - 129 U/L 09/09/2023 2:47 PM BAKERY ASSISTANT DTL Alanine Aminotransferase (ALT), S 31 7 - 55 U/L 09/09/2023 2:47 PM BAKERY ASSISTANT DTL Bilirubin, Total, S 0.8 0.0 - 1.2 mg/dL 09/09/2023 2:47 PM BAKERY ASSISTANT DTL Blood (Blood, Venous) 09/09/2023 1:45 PM BAKERY ASSISTANT 09/09/2023 2:27 PM BAKERY ASSISTANT Maureen Michelle M.D. LAB BLOOD ADD-ON [facility] [address] [place] [address], [facility] DTL [facility] [address] [place] [address] * (ABNORMAL) CBC with Differential, Blood (09/09/2023 1:45 PM BAKERY ASSISTANT) Hemoglobin 15.0 13.2 - 16.6 g/dL 09/09/2023 2:27 PM BAKERY ASSISTANT DTL Hematocrit 43.4 38.3 - 48.6 % 09/09/2023 2:27 PM BAKERY ASSISTANT DTL Erythrocytes 4.40 4.35 - 5.65 x10(12)/L 09/09/2023 2:27 PM BAKERY ASSISTANT DTL MCV 98.6(H) 78.2 - 97.9 fL 09/09/2023 2:27 PM BAKERY ASSISTANT DTL RBC Distrib Width 12.5 11.8 - 14.5 % 09/09/2023 2:27 PM BAKERY ASSISTANT DTL Platelet Count 211 135 - 317 x10(9)/L 09/09/2023 2:27 PM BAKERY ASSISTANT DTL Leukocytes 3.7 3.4 - 9.6 x10(9)/L 09/09/2023 2:27 PM BAKERY ASSISTANT DTL Neutrophils 1.62 1.56 - 6.45 x10(9)/L 09/09/2023 2:27 PM BAKERY ASSISTANT [facility] Lymphocytes 1.34 0.95 - 3.07 x10(9)/L 09/09/2023 2:27 PM BAKERY ASSISTANT DTL Monocytes 0.50 0.26 - 0.81 x10(9)/L 09/09/2023 2:27 PM BAKERY ASSISTANT DTL Eosinophils 0.18 0.03 - 0.48 x10(9)/L 09/09/2023 2:27 PM BAKERY ASSISTANT DTL Basophils <0.03 0.01 - 0.08 x10(9)/L 09/09/2023 2:27 PM BAKERY ASSISTANT DTL Blood (Blood, Venous) 09/09/2023 1:45 PM BAKERY ASSISTANT 09/09/2023 2:17 PM BAKERY ASSISTANT Maureen Michlele M.D. LAB BLOOD ADD-ON [facility] [address] [place] [address], [place] DTL [facility] [address] [place] [address] [facility] [address] [place] [address] * PET MR Abdomen Focused Without and With IV Contrast (09/09/2023 1:40 PM BAKERY ASSISTANT) Anatomical Region Laterality Modality Abdomen, Abdominal RST LOS, PET ARZ LOS, Abdominal ARZ LOS, Abdominal FLA LOS N/A Positron Emission Tomography (PET), Magnetic Resonance Impressions 09/09/2023 2:36 PM BAKERY ASSISTANT Slight interval enlargement of hepatic, peritoneal, and osseous metastases and stable lymphadenopathy. Narrative 09/09/2023 2:36 PM BAKERY ASSISTANT EXAM: ??PET MR ABDOMEN FOCUSED WITHOUT AND [...] to Thigh Survey DOTATATE (09/09/2023 1:40 PM BAKERY ASSISTANT) Anatomical Region Laterality Modality Body, Nuclear Medicine PET R ST LOS, PET ARZ LOS, Nuclear Medicine PET FLA LOS, Nuclear Medicine N/A Positron Emission Tomography (PET), Magnetic Resonance Impressions 09/09/2023 2:26 PM BAKERY ASSISTANT 1. Interval progression since the prior DOTATATE [...] Krenning score: 4 Narrative 09/09/2023 2:26 PM BAKERY ASSISTANT EXAM: PET MR SKULL TO THIGH SURVEY DOTATATE RADIOPHARMACEUTICAL/MEDS: Route: intravenous gallium Ga 68 dotatate injection (Ga-68 PaperFlies),5.25 millicurie TECHNIQUE: Ga-68 DOTATATE PET/MRI scan was [...] intravenous gallium Ga 68 dotatate injection (Ga-68 PaperFlies),5.25 millicurie TECHNIQUE: Ga-68 DOTATATE PET/MRI scan was [...] have an SUV max of 17.9 (whole-body [id number]). Interval increase in tracer avid tumor burden [...] avid foci in the small bowel (whole-body [id number], [id number]), suspicious for primary small bowel lesions. [...] metastases. Krenning score: 4 Maureen Michelle M.D. 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
--- OUTSIDE RECORDS SUMMARY | 2023-10-25 20:20 | XMS_ITS | Encounter Summary ---
Author Name Unknown Organization [facility] Address [address] [place] [address] Care Team Providers Care Assurance Engineer Name Role Phone Unavailable Primary Care Provider Unavailabl e Reason for Visit * Reason Onset Date Comments Blood Pressure 09/04/2023 Encounter Details Date Type Department Care Team (Latest Contact Info) Description 09/04/2023 8:30 AM LNA Clinical Communication Virtual Review in [place], [place] [address] [place], [place] [phone] Blood Pressure Social History Tobacco Use Types [...] often do you attend chur ch or restoration services? More than 4 times per year 09/29/2019 Do you belong to any clubs o r organizations such as spiritism groups, unions, fraternal or athletic groups, or [...] and heating? Not hard at all 09/29/2019 [facility] of Occupat ional Health - Occupational [...] Master's degree (e.g., MA, MS, Darrin, MEd, SUPPLEMENTAL MANAGER, BERTHA) 09/29/2019 Sex and Gender Information Value Date Recorded Sex Assigned at Male 12/09/2022 3:56 PM CDT Gender Identity Male 02/23/2020 7:33 PM CDT Sexual Orientation Straight 02/23/2020 7: 33 PM CDT documented as of this encounter Plan of Treatment Upcoming Encounters Date Type Department Care Team (Latest Contact Info) Description 12/22/2023 9:15 AM CDT Clinical Communication Virtual Review in [place], [place] [address] [place] [address] 12/23/2023 1:00 PM CDT Appointment Department of Laboratory Medicine and Pathology, [facility] in [place], [place] [address] [place] [phone] Gwendolyn Rao M.D. [address] [place] [phone] 12/23/2023 1:45 PM CDT Appointment Department of Radiology, [facility] in [place], [place] [address] [place] [phone] Gwendolyn Rao M.D. [address] [place] [phone] 12/24/2023 9:00 AM CDT Appointment Department of Radiology, [facility] in [place], [place] [address] [place] [phone] Gwendolyn Rao M.D. [address] [place] [phone] 12/24/2023 11:15 AM CDT Office Visit Division of Hematology in [place], [place] [address] [place] [phone] Maureen Michelle M.D. [address] [place] [phone] documented as of this encounter Visit Diagnoses Not on filedocumented in this encounter Care Teams Assurance Engineer Relationship Specialty Start Date End Date [facility] [address] [place] [address] 05/22/21 documented as of this encounter
--- OUTSIDE RECORDS SUMMARY | 2023-10-25 20:20 | XMS_ITS | Encounter Summary ---
Author Name Unknown Organization [facility] Address [address] [place] [address] Care Team Providers Care Parachute Crown Sewer Name Role Phone Unavailable Primary Care Provider Unavailabl e Reason for Referral * MRI/CAT/PET Scan (Routine) - Closed Specialty Diagnoses / Procedures Referred By Gayle walsh Referred To Contact Radiology Diagnoses Carcinoid Tumor Malignant (HCC) Procedures MR Abdomen without and with IV Contrast Maureen Michelle M.D. [address] [place] [phone] [facility] Referral ID Status Reason Start Date Expiration Date Visits Re quested Visits Authorized [id number] Closed 08/04/2022 08/04/2023 1 1 Reason for Visit * MRI/CAT/PET Scan (Routine) - Closed Specialty Diagnoses / Procedures Referred By Gayle walsh Referred To Contact Radiology Diagnoses Carcinoid Tumor Malignant (HCC) Procedures MR Abdomen without and with IV Contrast Maureen Michelle M.D. [address] [place] [phone] [facility] Referral ID Status Reason Start Date Expiration Date Visits Re quested Visits Authorized [id number] Closed 08/04/2022 08/04/2023 1 1 Encounter Details Date Type Department Care Team (Latest Contact Info) Description 03/02/2023 6:06 AM CDT - 03/02/2023 8:11 AM CDT Hospital Encounter Department of Radiology, [facility], in [place], [place] [address] [place] [phone] Maureen Michelle M.D. [address] [place] [phone] Carcinoid Tumor Malignant (HCC) Discharge Disposition: Home [...] How often do you attend chur or restoration services? More than 4 times per year 09/29/2019 Do you belong to any clubs o r organizations such as voodoo groups, unions, fraternal or athletic groups, or [...] and heating? Not hard at all 09/29/2019 [facility] of Occupat ional Health - Occupational Stress [...] Master's degree (e.g., MA, MS, Darrin, MEd, SAND CUTTING MACHINE OPERATOR, BERTHA) 09/29/2019 Sex and Gender Information [...] this encounter Nursing Notes * Hermila Tovar RMarcianoN. - 03/02/2023 6:45 AM CDT Outpatient, keeping [...] AM CDT Clinical Communication Virtual Review in [place], [place] 200 [place] [address] 12/23/2023 1:00 PM CDT Appointment Department of Laboratory Medicine and Pathology, [facility] in [place], [place] [address] [place] [phone] Gwendolyn Rao M.D. [address] [place] [phone] 12/23/2023 1:45 PM CDT Appointment Department of Radiology, [facility] in [place], [place] [address] [place] [phone] Gwendolyn Rao M.D. [address] [place] [phone] 12/24/2023 9:00 AM CDT Appointment Department of Radiology, [facility], in [place], [place] [address] [place] [phone] Gwendolyn Rao M.D. [address] [place] [phone] 12/24/2023 11:15 AM CDT Office Visit Division of Hematology in [place], [place] [address] [place] [phone] Maureen Michelle M.D. [address] [place] [phone] Scheduled Orders Name Type Priority Associated Diagnoses [...] liver, lymphnodes and bones. Maureen Michelle M.D. [facility] MRI PROCEDURES * Creatinine, POCT (03/02/2023 6:24 AM CDT) [facility] Creatinine, POCT, B 1.1 0.7 - 1.4 mg/dL 03/02/2023 6:26 AM CDT PCDT Comment: ----ADDITIONAL INFORMATION---- Performed at the Point of Care Blood 03/02/2023 6:24 AM CDT 03/02/2023 6:27 AM CDT Unknown Provider LAB POCT ORDERABLES - DEVICE [facility] [address] [place] [address], [facility] PCDT [facility] POC [address] [place] [address] * Creatinine, POCT (03/02/2023 6:24 AM CDT) [facility] Estimated GFR (eGFR), POCT 69 >=60 mL/min/BSA 03/02/2023 6:27 AM CDT PCMO Comment: Estimated GFR calculated using the 2020 CKD_EPI creatinine equation. Blood 03/02/2023 6:24 AM CDT 03/02/2023 6:27 AM CDT Unknown Provider LAB POCT ORDERABLES - DEVICE [facility] [address] [place] [address], [facility] [address] [place] [address] documented in this encounter Visit Diagnoses Diagnosis [...] 1-100 mL 1-100 mL, intravenous, Once, On Thu03/02/23 at 0630, For 1 dose, Imaging Protocol Orders Given 03/02/2023 7:17 AM CDT 50 mL documented in this encounter Care Teams Parachute Crown Sewer Relationship Specialty Start Date End Date [facility] [place] [address] 05/22/21 documented as of this encounter
--- OUTSIDE RECORDS SUMMARY | 2023-10-25 20:20 | XMS_ITS | Encounter Summary ---
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 [address] [place] [address] [facility] Referral ID Status Reason Start Date Expiration Date Visits Re quested Visits Authorized [id number] Closed 03/02/2023 03/01/2024 1 1 Encounter Details Date Type Department Care Team (Latest Contact Info) Description 09/09/2023 10:15 AM BENEFITS COUNSELOR - 09/09/2023 11:59 PM BENEFITS COUNSELOR Hospital Encounter Department of Radiology, [facility] in [place], [place] [address] [place] [address] Maureen Michelle M.D. [address] [place] [address] Carcinoid Tumor Malignant (HCC); Personal History Of [...] often do you attend chur ch or lutheran services? More than 4 times per year [...] and heating? Not hard at all 09/29/2019 [facility] [...] Master's degree (e.g., MA, MS, Darrin, MEd, PROFESSOR OF POULTRY SCIENCE, [employer]ER[employer]A) 09/29/2019 Sex and Gender Information Value [...] as of this encounter Nursing Notes * Nora Amaro RMiguel Angel. - 09/09/2023 12:30 PM [...] as ordered andoutlined in medication reference document. FITS COUNSELOR documented in this encounter Plan of Treatment Upcoming Encounters Date Type Department Care Team (Latest Contact Info) Description 12/22/2023 9:15 AM CDT Clinical Communication Virtual Review in [place], [place] [address] [place] [address] 12/23/2023 1:00 PM CDT Appointment Department of Laboratory Medicine and Pathology, [facility] in [address] [phone] Gwendolyn Rao M.D. [address] [place] [phone] 12/23/2023 1:45 PM CDT Appointment Department of Radiology, [facility] in [address] [phone] Gwendolyn Rao M.D. [address] [place] [phone] 12/24/2023 9:00 AM CDT [facility] [address] [phone] Gwendolyn Rao M.D. [address] [place] [phone] 12/24/2023 11:15 AM CDT Office Visit Division of Hematology in [address] [phone] Maureen Michelle M.D. 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 PET MR ABDOMEN FOCUSED WITHOUT AND WITH IV CONTRAST RAD - Routine (most inpatients and all outpatients) 09/09/2023 1:40 PM BENEFITS COUNSELOR 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 Narrative 09/09/2023 2:36 PM BENEFITS COUNSELOR EXAM: ??PET MR ABDOMEN FOCUSED WITHOUT AND [...] to Thigh Survey DOTATATE (09/09/2023 1:40 PM BENEFITS COUNSELOR) Anatomical Region Laterality Modality Body, Nuclear Medicine PET R ST LOS, PET ARZ LOS, Nuclear Medicine PET FLA LOS, Nuclear Medicine N/A Positron Emission Tomography (PET), Magnetic Resonance Impressions 09/09/2023 2:26 PM BENEFITS COUNSELOR 1. Interval progression since the prior DOTATATE [...] Krenning score: 4 Narrative 09/09/2023 2:26 PM BENEFITS COUNSELOR EXAM: PET MR SKULL TO THIGH SURVEY DOTATATE RADIOPHARMACEUTICAL/MEDS: Route: intravenous gallium Ga 68 dotatate injection (Ga-68 [employer]),5.25 millicurie TECHNIQUE: Ga-68 DOTATATE PET/MRI scan was [...] have an SUV max of 17.9 (whole-body [id number]). Interval increase in tracer avid tumor burden [...] avid foci in the small bowel (whole-body [id number], [id number]), suspicious for primary small bowel lesions. [...] metastases. Krenning score: 4 Maureen Michelle M.D. [facility] [place]URES * Creatinine, POCT (09/09/2023 10:57 AM BENEFITS COUNSELOR) [facility] Creatinine, POCT, B 1.1 0.7 - 1.4 mg/dL 09/09/2023 10:59 AM BENEFITS COUNSELOR PCDT Comment: ----ADDITIONAL INFORMATION---- Performed at the Point of Care Blood 09/09/2023 10:5 7 AM BENEFITS COUNSELOR 09/09/2023 10:59 AM BENEFITS COUNSELOR Unknown Provider LAB POCT ORDERABLES - DEVICE [facility] PERFORMING LABS [address] [place] [address], [place] PCDT [facility] POC [address] [place] [address] * Creatinine, POCT (09/09/2023 10:57 AM BENEFITS COUNSELOR) [facility] Estimated GFR (eGFR), POCT 68 >=60 mL/min/BSA 09/09/2023 10:59 AM BENEFITS COUNSELOR PCMO Comment: Estimated GFR calculated using the 2020 CKD_EPI creatinine equation. Blood 09/09/2023 10:5 7 AM BENEFITS COUNSELOR 09/09/2023 10:59 AM BENEFITS COUNSELOR Unknown Provider LAB POCT ORDERABLES - DEVICE [facility] [address] [place] [address], [facility] PCMO [facility] POC [address] [place] [address] documented in this encounter Visit Diagnoses Diagnosis [...] Radiant Medication Guidelines Given 09/09/2023 1:28 PM BENEFITS COUNSELOR 10 mL gallium Ga 68 dotatate injection (Ga-68 [employer]) 2.7-5.4 millicurie, intravenous, Once, On Thu09/09/23 at 1100, For 1 dose, Imaging Protocol Orders, HAZARDOUS - Handle with care Given 09/09/2023 11:22 AM BENEFITS COUNSELOR 5.25 millicuries sodium chloride (PF) 0.9 % injection 1-100 mL 1-100 mL, intravenous, Once, On Thu09/09/23 at 1100, For 1 dose, Imaging Protocol Orders Given 09/09/2023 1:28 PM BENEFITS COUNSELOR 50 mL documented in this encounter Care Teams Asbestos Cement Sheet Supervisor Relationship Specialty Start Date End Date [facility] [place] [address] 05/22/21 documented as of this encounter
--- NOTE | 2023-12-10 13:47 | W.PM.SLEEP ---
Sleep Study Details Details Interpreting Provider: Bette Date of Sleep Study: 10/25/23 Sleep Study Details: STUDY TYPE:? Home unattended ? BMI:? 30.1 ORDERING PROVIDER:? Bc INDICATION:? Concerns about sleep apnea ? SLEEP SUMMARY:? 301.7 minutes monitored RESPIRATORY SUMMARY:? AHI 12.9 using CMS guideline, 20.5 using rule 1A. No majority of study was done supine Low oxygen 83 10.3% of study oxygen less than 90% Snoring 10.3% PERIODIC LIMB MOVEMENTS OF SLEEP:? Not recorded CARDIAC:? Range 68-98, mean 77.7 IMPRESSION:? Mild obstructive sleep apnea using CMS guidelines, moderate using rule 1A 3% desaturation guidelines. Significant hypo oxygenation during 10% of the study. RECOMMENDATION: Treatment options include AutoSet CPAP and or dental appliance. Once effective therapy is established an overnight oximetry study should be performed.
== END 2023-10-25 19:53 | disposition home or self-care (01) ==
LOC: SLEEP 19:53
PROVIDERS: PCP Internal Medicine; Visit Provider Internal Medicine
DX: G47.33 Obstructive sleep apnea (adult) (pediatric) (principal)
CPT/HCPCS: 95806

== ENCOUNTER 2023-11-10 09:45 | Outpatient (RCR) | payer MEDICARE, OTHER, SELFPAY ==
--- NOTE | 2023-10-06 09:25 | PT.OPEX ---
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 He had appt with Dr Negron, xrays showed R hip OA. Patient had an injection to his R hip last week and reports feeling better since the injection. He is not needing pain meds. Occasionally using a heating pad to his R hip/buttock region. Pain range 0-2/10. He reports increased pain with lifting his leg and stairs but this has been better since the injection. He reports having a fall on the ice about a year ago with L1 compression fx. He reports some ongoing LBP issues related to this fall. Denies any recent falls. Date of Last Physician Visit 09/22/23 Current Work Status Retired Precautions Treatment Precautions/Contraindications HX: L1 compression fx, cancer, OA, stroke, bilateral TKAs Assessment Assessment/Impression Patient is a 78 year old mael with R hip pain, impaired R hip ROM, impaired R hip/LE mobility/strength, limping/ antalgic gait. He reports having an injection to his R hip last week (10/01/23). Pain has been less since his injection. Pain range 0-2/10. Xrays show R hip OA. Patient R hip ROM is tight, limited in all directions, especially IR, ext. Gait is mildly limping with patient lacking R hip ext. He is tight, tender with palpation R buttock/LB region. Denies pain with palpation R lateral hip, R ITB this session. Patient with general core/hip/ glut weakness noted with exercises and transfers this session. Increased pain in R hip/buttock/LB with sit/stand transfer, walking. Able to initiate PT with MT and TE treatments to help loosen up R hip, LB, and for strengthening of core/hip/glut musculature. Patient would benefit from skilled PT for pain/sx management, improved R hip ROM/mobility, core/hip/ glut/LE strengthening, improved tolerance for amb/ stair negotiation, and establishment of HEP. Plan of Care Rehabilitation Potential Good Physical Therapy Goals 1. Decrease R hip/groin pain to less than/equal to 3/10 with daily activities and with the progression of PT activities over the next 4-6 weeks. 2. Improve R hip ROM over the next 4-6 weeks for improved gait mechanics, return to transfers with ease, and improved tolerance for reciprocal stair negotiation. 3. Improve hip/glut/LE/core strength over the next 10-12 weeks for return to transfers with ease, improved gait/stair negotiation, and extended standing/walking activities without flare up of pain. 4. Patient will be I with HEP within 12 weeks for progression toward above goals, ongoing self management of pain/sx, ongoing self improvements in R hip ROM/mobility/strength, and for return to daily activities/standing/walking without flare up of pain. Coordination/Communication With Referral Source Treatment Plan/Direct Interventions Manual Therapy,Therapeutic Exercises Frequency/Duration 1x/week Patient Will Be Discharged From Therapy Completion of LTG(s),Skills Plateau,Independent w/HEP, Independently Progressing Evaluation Billing Untimed Code Treatment Minutes 20 Complexity Moderate Certification Information Initial Certification Date 10/05/23 Ending Certification Date 01/03/24 Provider Signature Shows Agreement With POC & Medical Necessity Physician Signature & Date Requested Please Sign/Date Here Physician Comment/Change : Physician NPI Number #
== END 2024-03-09 23:59 | disposition home or self-care (01) ==
PROVIDERS: PCP Internal Medicine; Visit Provider Orthopaedic Surgery Sports Medicine
DX: M16.11 Unilateral primary osteoarthritis, right hip; M76.891 Other specified enthesopathies of right lower limb, excluding foot; Z51.89 Encounter for other specified aftercare
CPT/HCPCS: 36415; 85610; 97110; 97140; 97162

== ENCOUNTER 2024-02-09 12:44 | Outpatient (RCR) | payer MEDICARE, OTHER, SELFPAY ==
[2022-03-20 12:38] LABS: INR 2.05 (0.91-1.10); Prothrombin Time 23.5 Seconds
[2022-07-02 12:36] LABS: INR 1.58 (0.91-1.10); Prothrombin Time 19.3 Seconds
[2022-07-08 11:11] LABS: Basophils Absolute Auto 0.02 K/uL (0.00-0.30); Basophils Percent Auto 0.4 % (0.0-3.0); Eosinophils Absolute Auto 0.23 K/uL (0.00-0.50); Eosinophils Percent Auto 4.6 % (0.0-7.0); Hematocrit 43.4 % (37.0-53.0); Hemoglobin* 14.6 gm/dL (13.5-17.5); Immature Granulocytes Abs Auto 0.02 K/uL (0.00-0.30); Lymphocytes Absolute Auto 1.17 K/uL (0.90-2.90); Lymphocytes Percent Auto 23.3 % (20-44); Mean Corpuscular HGB Conc 34 gm/dL (32-36); Mean Corpuscular Hemoglobin 33 pg (26-34); Mean Corpuscular Volume 99 fL (80-100); Monocytes Percent Auto 8.3 % (0.0-11.0); Neutrophils Absolute Auto 3.17 K/uL (1.7-7.0); Platelet Count* 288 K/uL (140-440); RDW Coefficient of Variation % 11.8 % (11.5-15.5); White Blood Count* 5.03 K/uL (4.50-11.00)
[2022-07-08 11:21] LABS: Slide Review Reflex No
[2022-07-08 11:25] LABS: INR 1.74 (0.91-1.10); Prothrombin Time 21.2 Seconds
[2022-07-22 12:52] LABS: INR 2.16 (0.91-1.10); Prothrombin Time 25.2 Seconds
[2022-08-12 13:40] LABS: INR 1.91 (0.91-1.10); Prothrombin Time 22.9 Seconds
[2022-09-25 14:52] LABS: INR 2.22 (0.91-1.10); Prothrombin Time 25.8 Seconds
[2022-10-21 10:06] LABS: INR 2.84 (0.91-1.10); Prothrombin Time 31.2 Seconds
[2022-12-30 11:52] LABS: INR 3.01 (0.91-1.10); Prothrombin Time 32.7 Seconds
[2023-01-13 14:11] LABS: INR 1.69 (0.91-1.10); Prothrombin Time 20.8 Seconds
[2023-02-17 13:14] LABS: INR 2.04 (0.91-1.10); Prothrombin Time 24.1 Seconds
[2023-03-19 14:44] LABS: INR 2.24 (0.91-1.10); Prothrombin Time 25.9 Seconds
[2023-04-08 14:42] LABS: INR 1.93 (0.91-1.10)
[2023-05-05 11:58] LABS: INR 1.71 (0.91-1.10)
[2023-05-11 10:44] LABS: INR 1.61 (0.91-1.10); Prothrombin Time 20.1 Seconds
[2023-05-19 11:49] LABS: INR 1.66 (0.91-1.10); Prothrombin Time 20.5 Seconds
[2023-06-02 12:08] LABS: INR 2.39 (0.91-1.10); Prothrombin Time 27.3 Seconds
[2023-06-23 10:14] LABS: INR 2.89 (0.91-1.10); Prothrombin Time 31.6 Seconds
[2023-07-09 11:19] LABS: INR 2.53 (0.91-1.10); Prothrombin Time 28.5 Seconds
[2023-07-28 13:35] LABS: INR 2.77 (0.91-1.10); Prothrombin Time 31.4 Seconds
[2023-08-26 14:10] LABS: INR 2.48 (0.91-1.10); Prothrombin Time 28.7 Seconds
[2023-09-23 10:41] LABS: Basophils Absolute Auto 0.01 K/uL (0.00-0.30); Basophils Percent Auto 0.2 % (0.0-3.0); Eosinophils Absolute Auto 0.14 K/uL (0.00-0.50); Eosinophils Percent Auto 2.7 % (0.0-7.0); Hematocrit 44.2 % (37.0-53.0); Hemoglobin* 14.6 gm/dL (13.5-17.5); Lymphocytes Percent Auto 17.7 % (20-44); Mean Corpuscular HGB Conc 33 gm/dL (32-36); Mean Corpuscular Hemoglobin 33 pg (26-34); Mean Corpuscular Volume 99 fL (80-100); Monocytes Percent Auto 14.6 % (0.0-11.0); Neutrophils Absolute Auto 3.38 K/uL (1.7-7.0); Neutrophils Percent Auto 64.8 % (42.0-72.0); Platelet Count* 214 K/uL (140-440); Red Blood Count 4.47 m/uL (4.30-5.90); White Blood Count* 5.21 K/uL (4.50-11.00)
[2023-09-23 10:44] LABS: Slide Review Reflex No
[2023-09-23 11:17] LABS: INR 1.92 (0.91-1.10); Prothrombin Time 23.4 Seconds
[2023-10-07 16:09] LABS: INR 2.66 (0.91-1.10); Prothrombin Time 30.4 Seconds
[2023-10-27 16:28] LABS: INR 2.52 (0.91-1.10); Prothrombin Time 29.1 Seconds
[2023-11-10 13:24] LABS: INR 2.36 (0.91-1.10); Prothrombin Time 27.6 Seconds
[2023-12-09 13:35] LABS: Prothrombin Time 27.1 Seconds
[2024-01-21 14:23] LABS: INR 2.16 (0.91-1.10); Prothrombin Time 25.7 Seconds
[2024-02-09 13:24] LABS: INR 2.02 (0.91-1.10); Prothrombin Time 24.4 Seconds
== END 2024-06-22 16:54 | disposition home or self-care (01) ==
LOC: LAB 12:44
PROVIDERS: PCP Internal Medicine; Visit Provider Internal Medicine Hematology & Oncology
DX: M76.61 Achilles tendinitis, right leg (principal); Z79.01 Long term (current) use of anticoagulants; I48.91 Unspecified atrial fibrillation; Z86.718 Personal history of other venous thrombosis and embolism
CPT/HCPCS: 36415; 85025; 85610

== ENCOUNTER 2025-07-27 16:34 | Outpatient (CLI) | payer MEDICARE, OTHER, SELFPAY ==
--- NOTE | 2025-07-27 16:45 | CRLHL7_ITS ---
For Patients: As a result of the Century Cures Act, medical imaging exams and procedure reports are released immediately into your electronic medical record. You may view this report before your referring provider. If you have questions, please contact your health care provider. INDICATION: Right groin pain after catheterization. TECHNIQUE: Ultrasound venous duplex right lower extremity. Compression venous exam was performed using shell-scale, color Doppler, and spectral Doppler analysis. COMPARISON: None. FINDINGS: There is a tiny amount of linear echogenic material within the right common femoral vein although the vein remains compressible. Patent right femoral vein, popliteal vein, and visualized deep calf veins. IMPRESSION: There is a tiny amount of linear echogenic material within the right common femoral vein, although the vein remains compressible. The aforementioned finding is favored to represent chronic post thrombotic change or a venous valve rather than acute deep venous thrombosis. Otherwise, the visualized right lower extremity veins appear patent. Dictated by Umer Kemp MD @ 07/27/2025 6:49:55 PM (Electronically Signed)
--- NOTE | 2025-07-27 17:30 | CRLHL7_ITS ---
For Patients: As a result of the Century Cures Act, medical imaging exams and procedure reports are released immediately into your electronic medical record. You may view this report before your referring provider. If you have questions, please contact your health care provider. INDICATION: Pain in right groin. TECHNIQUE: Routine duplex arterial examination of the right lower extremity including 2D and spectral analysis, and color Doppler imaging was performed. COMPARISON: None. FINDINGS: In the right lower extremity, there are multiphasic waveforms in the common femoral, profunda femoral, superficial femoral, and popliteal arteries. At the ankle, there are multiphasic waveforms in the posterior tibial and anterior tibial arteries with monophasic waveforms in the dorsalis pedis artery. Systolic velocities are within normal limits. No occlusion or hemodynamically significant stenosis. In the area of pain (right groin), no hematoma or pseudoaneurysm is identified. IMPRESSION: 1. No hematoma or pseudoaneurysm in the right groin. 2. Monophasic waveforms in the dorsalis pedis artery with multiphasic waveforms throughout the remainder of the right lower extremity. No occlusion or hemodynamically significant stenosis. Dictated by Praveen Chavez MD @ 08/01/2025 3:42:30 AM (Electronically Signed)
== END 2025-07-27 16:35 | disposition home or self-care (01) ==
LOC: US 16:35
PROVIDERS: PCP Internal Medicine; Visit Provider Physician Assistant
DX: M79.606 Pain in leg, unspecified (principal); I73.9 Peripheral vascular disease, unspecified; I82.409 Acute embolism and thrombosis of unspecified deep veins of unspecified lower extremity; I26.01 Septic pulmonary embolism with acute cor pulmonale
CPT/HCPCS: 93926; 93971